=== PATIENT | female | born 1960 | race Caucasian/White ===

== ENCOUNTER 2022-10-04 00:09 | Inpatient (IN) | payer MEDICARE, BC, SELFPAY ==
--- OUTSIDE RECORDS SUMMARY | 2022-10-04 00:13 | XMS_ITS | Continuity of Care Document ---
Author Name Unknown Organization [facility] Address [address] [facility], 3r d Floor, [address] [place] [id number]- Care Team Providers Care Urology Teacher Name Role Phone Nadira Galindo MD Primary Care Physician Encounter [facility] Date(s): 11/19/21 - 12/19/21 [facility] [address], 3rd Floor, [address] [place] [id number] Allergies, Adverse Reactions, Alerts Substance Reaction Severity Status amoxicillin Active Dust Mold Mold Mold Mold Active Mold Active Immunizations Given and Recorded Vaccine Date Status Refusal Reason influenza virus vaccine, inactivated 12/24/20 Peewee rded influenza virus vaccine, inactivated 10/13/19 Peewee rded influenza virus vaccine, inactivated 11/26/17 Peewee rded influenza virus vaccine, inactivated 11/10/17 Peewee rded influenza virus vaccine, inactivated 10/24/16 Peewee rded influenza virus vaccine, inactivated 11/09/14 Peewee rded influenza virus vaccine, inactivated 11/09/13 Peewee rded SARS-CoV-2 (COVID-19) mRNA BNT-162b2 vac 11/29/20 Recorded SARS-CoV-2 (COVID-19) mRNA BNT-162b2 vac 05/14/20 Recorded SARS-CoV-2 (COVID-19) mRNA BNT-162b2 vac 04/23/20 Recorded Not Given Vaccine Date Status Refusal Reason pneumococcal 23-valent vaccine 1 02/29/20 Not Give n Patient Refuses 1Result Comment: pt will followup with pcp Medications [place] Thyroid 180 mg oral tablet 1 tablet = 180 mg, By Mouth, Daily, # 30 tablet, 0 Refills, Maintenance, 11/08/21 8:11:00 EDT, Tablet, [id number], Partial fill upon patient request if the prescription is for a schedule II opioid drug., 170, cm, 11/07/21 15:18:00 EDT, Height,... Start Date: 11/08/21 Status: Ordered aspirin 81 mg oral delayed release tablet 81 mg, 1, tablet, By Mouth, Daily, Refills 0, Maintenance, 10/05/21 16:30:00 EDT, Partial fill uponpatient request if the prescription is for a schedule II opioid drug. Start Date: 10/05/21 Status: Ordered divalproex sodium 500 mg oral enteric coated tablet = 1,500 mg, By Mouth, Daily at bedtime, # 90 tablet, 0 Refills, Maintenance, 11/08/21 8:12:00 EDT, Tablet, [facility]/pharmacy #[id number], Partial fill upon patient request if the prescription is for a schedule II opioid drug., 170, cm, 11/07/21 15:18:00 EDT, Hei... Start Date: 11/08/21 Status: Ordered Furosemide = 40 mg, Daily, 0 Refills, Maintenance, 10/05/21 16:29:00 EDT, Partial fill upon patient request ifthe prescription is for a schedule II opioid drug. Start Date: 10/05/21 Status: Ordered furosemide 20 mg oral tablet 40 mg, 2, tablet, By Mouth, Daily, # 60 tablet, Refills 0, Tot. Refills 0, Maintenance, 11/08/21 8:11:00 EDT, Route to Pharmacy Electronically, [facility]/pharmacy #[id number], Partial fill upon patient request if the prescription is for a schedule II opioid drug.... Start Date: 11/08/21 Status: Ordered glipiZIDE 2.5 mg oral tablet, extended release 1 tablet = 2.5 mg, By Mouth, Daily, # 30 tablet, 0 Refills, Maintenance, 11/08/21 8:11:00 EDT, ER Tablet, [facility]/pharmacy #[id number], Partial fill upon patient request if the prescription is for a schedule II opioid drug., 170, cm, 11/07/21 15:18:00 EDT, Heig... Start Date: 11/08/21 Status: Ordered metoprolol 25 mg oral tablet, extended release 25 mg, 1, tablet, By Mouth, Daily, # 30 tablet, Refills 0, Tot. Refills 0, Maintenance, 11/08/21 8:11:00 EDT, Route to Pharmacy Electronically, [id number], Partial fill upon patient request if the prescription is for a schedule II opioid drug.... Start Date: 11/08/21 Status: Ordered QUEtiapine 300 mg oral tablet 1 tablet = 300 mg, By Mouth, Daily at bedtime, # 30 tablet, 0 Refills, Maintenance, 11/08/21 8:12:00 EDT, Tablet, [id number], Partial fill upon patient request if the prescription is for a schedule II opioid drug., 170, cm, 11/07/21 15:18:00 E... Start Date: 11/08/21 Status: Ordered traZODone 50 mg oral tablet 50 mg, 1, tablet, By Mouth, Daily at bedtime, PRN, # 30 tablet, Refills 0, Tot. Refills 0, Maintenance, Insomnia, 11/08/21 8:18:00 EDT, Route to Pharmacy Electronically, [id number], Partial fill upon patient request if the prescription is for... Start Date: 11/08/21 Status: Ordered Problem List Condition Confirmation Course Effective Dates Status Health [facility] Informant Obese class I Confirmed Active Social History Social History Type Response Smoking Status Never (less than 100 in lifetime) entered on: 06/20/19 Sex Patient Care team information Care Team Personnel Name: Marcelino Smith RN Position: [facility] RN Member Role: Primary Care Nurse Name: Heather Ballesteros RN Position: [facility] RN Member Role: Primary Care Nurse Name: Mariza Cardona RN Position: [facility] RN Member Role: Primary Care Nurse Name: Denise Tucker RN Position: [facility] RN Member Role: Primary Care Nurse Name: Piero Burks Position: S RN Member Role: Primary Care Nurse Name: nIgris Nagy Position: S RN Member Role: Primary Care Nurse Name: Dandre Navarrete Position: S RN Member Role: Primary Care Nurse Name: Agatha Pena Position: S RN Member Role: Primary Care Nurse Name: Nadira Galindo MD Position: S Outreach Member Role: PCP Address: Address: [address] [place] [address] Name: Sandoval Coronado RN Position: [facility] RN Member Role: Primary Care Nurse Name: Seema Omer RN Position: S RN Member Role: Primary Care Nurse Name: Gabe Boucher RN Position: S RN Member Role: Primary Care Nurse Care Team Related Persons Name: SAQIB HERNANDEZ Address: home [address] [place] Name: SAQIB HERNANDEZ Address: [address] [place] Name: CAROL MORALEZ Address: home [address] [place] [address] Name: EUFEMIA CASSIDY Address: bagdad UNKNOWN
--- OUTSIDE RECORDS SUMMARY | 2022-10-04 00:13 | XMS_ITS | Continuity of Care Document ---
Author Name Unknown Organization [facility] Address [address] [facility], 3r d Floor, [address] [place] [id number]- Care Team Providers Care Trial Management Associate Name Role Phone Nadira Galindo MD Primary Care Physician En[place] [facility] [place](s[place] 01/13/22 - 02/12/22 [facility] [address], 3[address] Floor, [address] [place] [id number] Attending Physician: AdmMary Kate diaz Admitting Physician: AdmtrMary Kate Referring Physician: Admtr, Ar8 Allergies, Adverse Reactions, Alerts Substance Reaction Severity [...] Comment: pt will followup with pcp Medications [place] Thyroid 180 mg oral tablet 1 tablet = 180 mg, By Mouth, Daily, # 30 tablet, 0 Refills, Maintenance, 11/08/21 8:11:00 EDT, Tablet, [id number], Partial fill upon [...] 0 Refills, Maintenance, 11/08/21 8:12:00 EDT, Tablet, [facility]/pharmacy #[id number], Partial fill upon patient request [...] 11/08/21 8:11:00 EDT, Route to Pharmacy Electronically, [facility]/pharmacy #[id number], Partial fill upon patient request if the prescription is for a schedule II opioid drug.... Start Date: 11/08/21 Status: Ordered glipiZIDE 2.5 mg oral tablet, extended release 1 tablet = 2.5 mg, By Mouth, Daily, # 30 tablet, 0 Refills, Maintenance, 11/08/21 8:11:00 EDT, ER Tablet, [id number], Partial fill upon patient request if the prescription is for a schedule II opioid drug., 170, cm, 11/07/21 15:18:00 EDT, Heig... Start Date: 11/08/21 Status: Ordered metoprolol 25 mg oral tablet, extended release 25 mg, 1, tablet, By Mouth, Daily, # 30 tablet, Refills 0, Tot. Refills 0, Maintenance, 11/08/21 8:11:00 EDT, Route to Pharmacy Electronically, [facility]/pharmacy #[id number], Partial fill upon patient request [...] 11/08/21 8:18:00 EDT, Route to Pharmacy Electronically, [facility]/pharmacy #[id number], Partial fill upon patient request [...] Team Personnel Name: Marcelino Smith RN [facility] RN Member Role: Primary Care Nurse Name: Heather Ballesteros RN Position: [facility] RN Member Role: Primary Care Nurse Name: Mariza Cardona RN Position: [facility] RN Member Role: Primary Care Nurse Name: Denise Tucker RN Position: S RN Member Role: Primary Care Nurse Name: Piero Burks Position: S RN Member Role: Primary Care Nurse Name: Ingris Nagy Position: S RN Member Role: Primary Care Nurse Name: Dandre Navarrete Position: S RN Member Role: Primary Care Nurse Name: Agatha Pena Position: S RN Member Role: Primary Care Nurse Name: Nadira Galindo MD Position: S Outreach Member Role: PCP Address: Address: [address] [place] [address] Name: Sandoval Coronado RN Position: S RN Member Role: Primary Care Nurse Name: Seema Omer RN Position: S RN Member Role: Primary Care Nurse Name: Gabe Boucher RN Position: S RN Member Role: Primary Care Nurse Care Team Related Persons Name: SAQIB HERNANDEZ Address: [address] [place] [address] Name: SAQIB HERNANDEZ Address: [address] [place] [address] Name: CAROL MORALEZ Address: home [address] [place] [address] Name: EUFEMIA CASSIDY Address: home UNKNOWN
--- OUTSIDE RECORDS SUMMARY | 2022-10-04 00:13 | XMS_ITS | Continuity of Care Document ---
Author Name Unknown Organization [facility] Address [address] [facility], 3r d Floor, [address] [place] [id number]- Care Team Providers Care Shell Plater Name Role Phone Nadira Galindo MD Primary Care Physician Encounter [facility] Date(s): 02/20/22 - 04/05/22 [facility] [address], 3[address], [address] [place] [id number] Attending Physician: Trip Madison MD Admitting Physician: Trip Madison MD Referring Physician: Roe Eng MD Allergies, Adverse Reactions, Alerts Substance Reaction Severity [...] Comment: pt will followup with pcp Medications [place] Thyroid 180 mg oral tablet 1 tablet [...] 0 Refills, Maintenance, 11/08/21 8:12:00 EDT, Tablet, [facility]/pharmacy #[id number], Partial fill upon patient request [...] 11/08/21 8:11:00 EDT, Route to Pharmacy Electronically, [facility]/pharmacy #[id number], Partial fill upon patient request [...] 11/08/21 8:11:00 EDT, Route to Pharmacy Electronically, [facility]/pharmacy #[id number], Partial fill upon patient request [...] 11/08/21 8:18:00 EDT, Route to Pharmacy Electronically, [facility]/pharmacy #[id number], Partial fill upon patient request [...] Team Personnel Name: Marcelino Smith RN Position: [facility] RN Member Role: Primary Care Nurse Name: Denise Tucker RN Position: [facility] RN Member Role: Primary Care Nurse Name: Piero Burks RN Position: [facility] RN Member Role: Primary Care Nurse Name: Ingris Nagy RN Position: S RN Member Role: Primary Care Nurse Name: Dandre Navarrete RN Position: S RN Member Role: Primary Care Nurse Name: Agatha Pena RN Position: [facility] RN Member Role: Primary Care Nurse Name: Nadira Galindo MD Position: S Outreach Member Role: PCP Address: Address: [address] [place] [address] Name: Sandoval Coronado RN Position: S RN Member Role: Primary Care Nurse Care Team Related Persons Name: SAQIB HERNANDEZ Address: home [address] [place] Name: SAQIB HERNANDEZ Address: home [address] [place] Name: CAROL MORALEZ Address: home [address] [place], [place] Name: EUFEMIA CASSIDY Address: home [place], [place]
--- OUTSIDE RECORDS SUMMARY | 2022-10-04 00:13 | XMS_ITS | Continuity of Care Document ---
Author Name Unknown Organization [facility] Address [address] [address], [address]r d Floor, [address] [place] [id number]- Care Team Providers Care Petroleum Refining Equipment Operator Name Role Phone Nadira Galindo MD Primary Care Physician Encounter [facility] Date(s): 02/20/22 - 03/22/22 [facility] [address], 3[address], [address] [place] [id number] Allergies, Adverse Reactions, Alerts Substance Reaction Severity [...] Comment: pt will followup with pcp Medications [place] Thyroid 180 mg oral tablet 1 tablet = 180 mg, By Mouth, Daily, # 30 tablet, 0 Refills, Maintenance, 11/08/21 8:11:00 EDT, Tablet, [id number], Partial fill upon patient request if the [...] 0 Refills, Maintenance, 11/08/21 8:12:00 EDT, Tablet, [facility]/pharmacy #[id number], Partial fill upon patient request if [...] 11/08/21 8:11:00 EDT, Route to Pharmacy Electronically, [facility]/pharmacy #[id number], Partial fill upon patient request if the prescription is for a schedule II opioid drug.... Start Date: 11/08/21 Status: Ordered glipiZIDE 2.5 mg oral tablet, extended release 1 tablet = 2.5 mg, By Mouth, Daily, # 30 tablet, 0 Refills, Maintenance, 11/08/21 8:11:00 EDT, ER Tablet, [facility]/pharmacy #[id number], Partial fill upon patient request if [...] Team Personnel Name: Marcelino Smith RN Position: [facility] RN Member Role: Primary Care Nurse Name: Mariza Cardona RN Position: [facility] RN Member Role: Primary Care Nurse Name: Denise Tucker RN Position: [facility] RN Member Role: Primary Care Nurse Name: Piero Burks RN Position: [facility] RN Member Role: Primary Care Nurse Name: Ingris Nagy RN Position: S RN Member Role: Primary Care Nurse Name: Dandre Navarrete Position: [facility] RN Member Role: Primary Care Nurse Name: Agatha Pena RN Position: [facility] RN Member Role: Primary Care Nurse Name: Nadira Galindo MD Position: [facility] Outreach Member Role: PCP Address: Address: [address] [place] [address] Name: Sandoval Coronado RN Position: S RN Member Role: Primary Care Nurse Name: Seema Omer RN Position: [facility] RN Member Role: Primary Care Nurse Care Team Related Persons Name: SAQIB HERNANDEZ Address: home [address] [place] Name: SAQIB HERNANDEZ Address: home [address] [place] Name: CAROL MORALEZ Address: home [address] [place], [place] Name: EUFEMIA CASSIDY Address: home [place], [place]
--- OUTSIDE RECORDS SUMMARY | 2022-10-04 00:13 | XMS_ITS | Continuity of Care Document ---
Author Name Unknown Organization [facility] Address [address] [facility] [place] [address]- Care Team Providers Care Agricultural Science Professor Name Role Phone Nadira Galindo MD Primary Care Physician Encounter 02/02/20 - 02/09/20 [facility] [address], [address] [place], [place] [address] Attending Physician: Nadira Galindo MD Admitting Physician: Nadira Galindo MD Referring Physician: Fifi Reyes MD Allergies, Adverse Reactions, Alerts Substance Reaction Severity Status amoxicillin Active Dust Mold Mold Mold Mold Active Mold Active Medications amLODIPine 2.5 mg oral tablet 2.5 mg, 1, tablet, By Mouth, Daily, Refills 0, Maintenance, 06/26/17 10:33:25 EDT Start Date: 06/26/17 Status: Ordered aspirin 81 mg oral tablet 1 tablet = 81 mg, By Mouth, Daily, # 30 tablet, 0 Refills, Maintenance, 06/02/18 16:00:41 EDT, Tablet Start Date: 06/02/18 Status: Ordered Clonazepam = 3 mg, By Mouth, Daily at bedtime, 0 Refills, Maintenance, 06/20/19 5:40:00 EDT Start Date: 06/20/19 Status: Ordered CPAP Machine See Instructions, Maintenance, 06/02/18 16:02:11 EDT, Compound Start Date: 06/02/18 Status: Ordered Crestor 10 mg oral tablet 1 tablet = 10 mg, By Mouth, Daily at bedtime, 0 Refills, Maintenance, 06/26/17 10:33:08 EDT Start Date: 06/26/17 Status: Ordered Depakote = 1,500 mg, By Mouth, 3 times a day, 0 Refills, Maintenance, 06/20/19 5:41:00 EDT Start Date: 06/20/19 Status: Ordered Januvia 100 mg oral tablet 1 tablet = 100 mg, By Mouth, Daily, # 30 tablet, 0 Refills, Maintenance, 06/02/18 15:59:25 EDT, Tablet Start Date: 06/02/18 Status: Ordered KlonoPIN 1 mg oral tablet 3 tablet = 3 mg, By Mouth, Daily at bedtime, # 9 tablet, 0 Refills, Maintenance, 06/20/19 5:46:00 EDT, [facility]/pharmacy #[id number], 170, cm, 06/20/19 5:39:00 EDT, Height, 110, kg, 06/20/19 5:39:00 EDT, Dry Weight Start Date: 06/20/19 Status: Ordered Lasix 40 mg oral tablet 40 mg, 1, tablet, By Mouth, Daily, Refills 0, Maintenance, 06/26/17 10:33:35 EDT Start Date: 06/26/17 Status: Ordered metFORMIN 500 mg oral tablet 1 tablet = 500 mg, By Mouth, Daily, with meals, # 30 tablet, 0 Refills, Maintenance, 06/02/18 15:59:45 EDT, Tablet Start Date: 06/02/18 Status: Ordered metoprolol 50 mg oral tablet 50 mg, 1, tablet, By Mouth, 2 times a day, Refills 0, Maintenance, 06/26/17 10:34:28 EDT Start Date: 06/26/17 Status: Ordered Seroquel By Mouth, Refills 0, Maintenance, 06/02/18 16:00:07 EDT Start Date: 06/02/18 Status: Ordered thyroid desiccated 30 mg oral tablet 1 tablet = 30 mg, By Mouth, Every Thursday, and Thursday, # 13 tablet, 0 Refills, Maintenance, Tablet, 1 tablet By Mouth Every Thursday, and Thursday,x30 days Start Date: 01/26/13 Stop Date: 02/25/13 Status: Ordered thyroid desiccated 30 mg oral tablet 1 tablet = 30 mg, By Mouth, Every Thursday, # 5 tablet, 0 Refills, Maintenance, Tablet, 1 tablet By Mouth Every Thursday,x30 days Start Date: 01/26/13 Stop Date: 02/25/13 Status: Ordered thyroid desiccated 60 mg oral tablet 3 tablets, By Mouth, Daily, # 30 tablet, Refills 0, Maintenance, 07/27/18 11:39:23 EDT Start Date: 07/27/18 Status: Ordered thyroid desiccated 60 mg oral tablet 1 tablet = 60 mg, By Mouth, Every Thursday, # 5 tablet, 0 Refills, Maintenance, Tablet, 1 tablet By Mouth Every Thursday,x30 days Start Date: 01/26/13 Stop Date: 02/25/13 Status: Ordered thyroid desiccated 60 mg oral tablet 1 tablet = 60 mg, By Mouth, Every Thursday, # 1 tablet, 0 Refills, Maintenance, Tablet, 1 tablet By Mouth Every Thursday,x7 days Start Date: 01/26/13 Stop Date: 02/02/13 Status: Ordered Social History Social History Type Response Smoking Status Never (less than 100 in lifetime) entered on: 06/20/19 Sex
--- OUTSIDE RECORDS SUMMARY | 2022-10-04 00:13 | XMS_ITS | Continuity of Care Document ---
Author Name Unknown Organization [facility] Address [address] [facility] [place] [address] [place] [address]- Care Team Providers Care Circular Knife Cutter Machine Name Role Phone Nadira Galindo MD Primary Care Physician [phone] Encounter 03/19/21 - 05/11/21 [facility] [address], [address] [place] [address]- Attending Physician: Fifi Reyes MD Admitting Physician: Fifi Reyes MD Referring Physician: Fifi Reyes MD Allergies, [...] Comment: pt will followup with pcp Medications acetaminophen 325 mg oral tablet 650 mg, By Mouth, Every 4 hours, PRN, Temperature Greater than 100.5, Refills 0, Maintenance, Pain , Mild, 04/01/21 15:34:00 EST, Partial fill upon patient request if the prescription is for a schedule II opioid drug. Start Date: 04/01/21 Status: Ordered amLODIPine 5 mg oral tablet 5 mg, 1, tablet, By Mouth, Daily, # 30 tablet, Refills 0, Tot. Refills 0, Maintenance, 05/09/21 11:36:00 EDT, Route to Pharmacy Electronically, [facility]/pharmacy #[id number], Partial fill upon patient request if the prescription is for a schedule II opioid drug.... Start Date: 05/09/21 Status: Ordered clonazePAM 1 mg oral tablet 1 tablet = 1 mg, By Mouth, 3 times a day, PRN Anxiety, 0 Refills, Maintenance, 05/09/21 11:42:00 EDT, Tablet, Partial fill upon patient request if the prescription is for a schedule II opioid drug. Start Date: 05/09/21 Status: Ordered divalproex sodium 500 mg oral tablet, extended release 3 tablet = 1,500 mg, By Mouth, Daily at bedtime, # 90 tablet, 0 Refills, Maintenance, 05/09/21 11:38:00 EDT, ER Tablet, [facility]/pharmacy #[id number], Partial fill upon patient request if the prescription is for a schedule II opioid drug., 170, cm, 05/09/21 9:42... Start Date: 05/09/21 Status: Ordered glipiZIDE 2.5 mg oral tablet, extended release 1 tablet = 2.5 mg, By Mouth, Daily, # 30 tablet, 0 Refills, Maintenance, 05/09/21 11:38:00 EDT, ER Tablet, [facility]/pharmacy #[id number], Partial fill upon patient request if the prescription is for a schedule II opioid drug., 170, cm, 05/09/21 9:42:00 EDT, Heig... Start Date: 05/09/21 Status: Ordered metoprolol 25 mg oral tablet, extended release 25 mg, 1, tablet, By Mouth, Daily, # 30 tablet, Refills 0, Tot. Refills 0, Maintenance, 05/09/21 11:38:00 EDT, Route to Pharmacy Electronically, [facility]/pharmacy #[id number], Partial fill upon patient request if the prescription is for a schedule II opioid drug... Start Date: 05/09/21 Status: Ordered perphenazine 8 mg oral tablet 12 mg, 1.5, tablet, By Mouth, Daily at bedtime, # 45 tablet, Refills 0, Tot. Refills 0, Maintenance, 05/09/21 11:41:00 EDT, Route to Pharmacy Electronically, [facility]/pharmacy #[id number], Partial fill upon patient request if the prescription is for a schedule I... Start Date: 05/09/21 Status: Ordered QUEtiapine 200 mg oral tablet, extended release 600 mg, 3, tablet, By Mouth, Daily at bedtime, # 90 tablet, Refills 0, Tot. Refills 0, Maintenance,05/09/21 11:38:00 EDT, Route to Pharmacy Electronically, [facility]/pharmacy #[id number], Partial fill upon patient request if the prescription is for a schedule II... Start Date: 05/09/21 Status: Ordered thyroid desiccated 60 mg oral tablet 180 mg, 3, tablet, By Mouth, Daily, # 90 tablet, Refills 0, Tot. Refills 0, Maintenance, 05/09/21 11:39:00 EDT, Route to Pharmacy Electronically, [facility]/pharmacy #[id number], Partial fill upon patient requestif the prescription is for a schedule II opioid tarik... Start Date: 05/09/21 Status: Ordered Problem List Condition Effective Dates Status Health Status Inform ant Obese class II(Confirmed) Active Social History Social History Type Response Smoking Status Never (less than 100 in lifetime) entered on: 06/20/19 Sex
--- OUTSIDE RECORDS SUMMARY | 2022-10-04 00:13 | XMS_ITS | Continuity of Care Document ---
Author Name Unknown Organization [facility] [place] [facility] [place] [address] [place] [address]- Care Team Providers Care Behavioral Health Specialist Name Role Phone Nadira Galindo MD Primary Care Physician Encounter 08/06/21 - 08/13/21 [facility] [address], [address] [place] [address]- Attending Physician: Fifi Reyes MD Admitting Physician: [...] 05/09/21 11:36:00 EDT, Route to Pharmacy Electronically, [facility]/pharmacy #[id number], Partial fill upon patient request if [...] Refills, Maintenance, 05/09/21 11:38:00 EDT, ER Tablet, [facility]/pharmacy #[id number], Partial fill upon patient request if the prescription is for a schedule II opioid drug., 170, cm, 05/09/21 9:42... Start Date: 05/09/21 Status: Ordered gabapentin 100 mg oral capsule 100 mg, 1, capsule, By Mouth, Daily at bedtime, # 30 capsule, Refills 0, Tot. Refills 0, Maintenance, 06/19/21 11:16:00 EDT, Route to Pharmacy Electronically, [facility]/pharmacy #[id number], Partial fill upon patient request if the prescription is for a schedule... Start Date: 06/19/21 Status: Ordered glipiZIDE 2.5 mg oral tablet, extended release 1 tablet = 2.5 mg, By Mouth, Daily, # 30 tablet, 0 Refills, Maintenance, 05/09/21 11:38:00 EDT, ER Tablet, [facility]/pharmacy #[id number], Partial fill upon patient request if the prescription is for a schedule II opioid drug., 170, cm, 05/09/21 9:42:00 EDT, [place]... Start Date: 05/09/21 Status: Ordered Invega Hafyera Intramuscular, Every 6 months, 0 Refills, Maintenance, 08/03/21 15:37:00 EDT, Partial fill upon patient request if the prescription is for a schedule II opioid drug. Start Date: 08/03/21 Status: Ordered metoprolol 25 mg oral tablet, extended release 25 mg, 1, tablet, By Mouth, Daily, # 30 tablet, Refills 0, Tot. Refills 0, Maintenance, 05/09/21 11:38:00 EDT, Route to Pharmacy Electronically, [facility]/pharmacy #[id number], Partial fill upon patient request if the prescription is for a schedule II opioid drug... Start Date: 05/09/21 Status: Ordered QUEtiapine 300 mg oral tablet, extended release 1 tablet = 300 mg, By Mouth, Daily at bedtime, # 30 tablet, 0 Refills, Maintenance, 06/19/21 11:16:00 EDT, ER Tablet, [id number], Partial fill upon patient request if the prescription is for a schedule II opioid drug., 1 tablet By Mouth Daily... Start Date: 06/19/21 Status: Ordered thyroid desiccated 60 mg oral tablet 180 mg, 3, tablet, By Mouth, Daily, # 90 tablet, Refills 0, Tot. Refills 0, Maintenance, 05/09/21 11:39:00 EDT, Route to Pharmacy Electronically, [facility]/pharmacy #[id number], Partial fill upon patient requestif the prescription is for a schedule II opioid tarik... Start Date: 05/09/21 Status: Ordered Problem List Condition Effective Dates Status Health Status Inform ant Obese class II(Confirmed) Active Social History Social History Type Response Smoking Status Never (less than 100 in lifetime) entered on: 06/20/19 Sex
--- OUTSIDE RECORDS SUMMARY | 2022-10-04 00:13 | XMS_ITS | Continuity of Care Document ---
Author Name Unknown Organization [facility] Address [address], [address], [address] [place] [id number]- Care Team Providers Care Emergency Vehicle Dispatcher Name Role Phone Nadira Galindo MD Primary Care Physician [place] [facility] [place] - 04/05/22 [facility] [address], [address], [address] [place] [id number] Attending Physician: AdmMary Kate diaz Admitting Physician: [...] Comment: pt will followup with pcp Medications [place] Thyroid 180 mg oral tablet 1 tablet [...] 0 Refills, Maintenance, 11/08/21 8:12:00 EDT, Tablet, [facility]/pharmacy #[id number], Partial fill upon patient request [...] 11/08/21 8:11:00 EDT, Route to Pharmacy Electronically, [facility]/pharmacy #[id number], Partial fill upon patient request [...] 11/08/21 8:11:00 EDT, Route to Pharmacy Electronically, [facility]/pharmacy #[id number], Partial fill upon patient request [...] 11/08/21 8:18:00 EDT, Route to Pharmacy Electronically, [facility]/pharmacy #[id number], Partial fill upon patient request [...] Team Personnel Name: Marcelino Smith RN Position: [facility] RN Member Role: Primary Care Nurse Name: Denise Tucker RN Position: [facility] RN Member Role: Primary Care Nurse Name: Piero Burks RN Position: [facility] RN Member Role: Primary Care Nurse Name: Ingris Nagy RN Position: S RN Member Role: Primary Care Nurse Name: Dandre Navarrete RN Position: S RN Member Role: Primary Care Nurse Name: Agatha Pena RN Position: [facility] RN Member Role: Primary Care Nurse Name: Nadira Galindo MD Position: S Outreach Member Role: PCP Address: Address: [address] [place] [address] Name: Sandoval Coronado RN Position: S RN Member Role: Primary Care Nurse Care Team Related Persons Name: SAQIB HERNANDEZ Address: home [address] [place] Name: SAQIB HERNANDEZ Address: home [address] [place] Name: CAROL MORALEZ Address: home [address], [place] Name: EUFEMIA CASSIDY Address: home [place], [place]
--- OUTSIDE RECORDS SUMMARY | 2022-10-04 00:13 | XMS_ITS | Continuity of Care Document ---
Author Name Unknown Organization [facility] ter Address [address] [place] [id number]- Care Team Providers Care Compensation And Benefits Advisor Name Role Phone Nadira Galindo MD Primary Care Physician Encounter [facility] Date(s): 02/10/19 - 02/10/[address] [address]- [facility] Attending Physician: Luke GUPTA MD, Yannick Allergies, Adverse Reactions, Alerts Substance Reaction Severity [...] Tablet Start Date: 06/02/18 Status: Ordered Clonazepam By Mouth, 3 times a day, 0 Refills, Maintenance, 06/26/17 10:34:35 EDT Start Date: 06/26/17 Status: Ordered CPAP Machine See Instructions, Maintenance, 06/02/18 16:02:11 EDT, Compound Start Date: 06/02/18 Status: Ordered Crestor 10 mg oral tablet 1 tablet = 10 mg, By Mouth, Daily at bedtime, 0 Refills, Maintenance, 06/26/17 10:33:08 EDT Start Date: 06/26/17 Status: Ordered Depakote By Mouth, 3 times a day, 0 Refills, Maintenance, 06/02/18 16:00:29 EDT Start Date: 06/02/18 Status: Ordered divalproex sodium 500 mg oral enteric coated tablet See Instructions, 2 tablets =1000mg By Mouth 2 times a day, # 120 tablet, 0 Refills, Maintenance, Tablet, 2 tablets =1000mg By Mouth 2 times a day Start Date: 01/26/13 Status: Ordered Januvia 100 mg oral tablet 1 tablet = 100 mg, By Mouth, Daily, # 30 tablet, 0 Refills, Maintenance, 06/02/18 15:59:25 EDT, Tablet Start Date: 06/02/18 Status: Ordered Lasix 40 mg oral tablet [...]
--- OUTSIDE RECORDS SUMMARY | 2022-10-04 00:13 | XMS_ITS | Continuity of Care Document ---
Author Name Unknown Organization [facility] ter Address [address] [place] [address]- Care Team Providers Care Director Case Management Name Role Phone Nadira Galindo MD Primary Care Physician Encounter [facility] [place] Date(s): 02/28/20 - 02/29/[address] [address] Discharge Disposition: A-D/C Home Attending Physician: Efrem Rico MD Admitting Physician: Tashia Slaughter MD Referring Physician: Not on Staff, Referring MD Allergies, Adverse Reactions, Alerts Substance Reaction Severity Status amoxicillin Active Dust Mold Mold Mold Mold Active Mold Active Immunizations Not Given Vaccine Date Status Refusal Reason pneumococcal 23-valent vaccine 1 02/29/20 Not Give n Patient Refuses 1Result Comment: pt will followup with pcp Medications amLODIPine 2.5 mg oral tablet 2.5 mg, 1, tablet, By Mouth, Daily, Refills 0, Maintenance, 06/26/17 10:33:25 EDT Start Date: 06/26/17 Status: Ordered [place] Thyroid 180 mg oral tablet 1 tablet = 180 mg, By Mouth, Daily, # 30 tablet, 0 Refills, Maintenance, 02/29/20 11:46:00 EST, Tablet, Partial fill upon patient request if the prescription is for a schedule II opioid drug. Start Date: 02/29/20 Status: Ordered aspirin 81 mg oral tablet 1 tablet = 81 mg, By Mouth, Daily, # 30 tablet, 0 Refills, Maintenance, 06/02/18 16:00:41 EDT, Tablet Start Date: 06/02/18 Status: Ordered CPAP Machine See Instructions, Maintenance, 06/02/18 16:02:11 EDT, Compound Start Date: 06/02/18 Status: Ordered Crestor 10 mg oral tablet 1 tablet = 10 mg, By Mouth, Daily at bedtime, 0 Refills, Maintenance, 06/26/17 10:33:08 EDT Start Date: 06/26/17 Status: Ordered Depakote = 1,500 mg, By Mouth, Daily at bedtime, 0 Refills, Maintenance, 06/20/19 5:41:00 EDT Start Date: 06/20/19 Status: Ordered KlonoPIN 1 mg oral tablet 3 tablet = 3 mg, By Mouth, Daily at bedtime, # 9 tablet, 0 Refills, Maintenance, 06/20/19 5:46:00 EDT, [facility]/pharmacy #[id number], 170, cm, 06/20/19 5:39:00 EDT, Height, [...] tablet, By Mouth, 2 times a day, # 60 tablet, Refills 0, Tot. Refills 0, Maintenance, 02/29/20 11:47:00 EST, Route to Pharmacy Electronically, [facility], Partial fill upon patient request if the prescription is for a schedule... Start Date: 02/29/20 Status: Ordered Seroquel 600 mg, By Mouth, Daily at bedtime, Refills 0, Maintenance, 06/02/18 16:00:07 EDT Start Date: 06/02/18 Status: Ordered Results Radiology Reports * Exam Date Time Procedure Performing Provider Status 02/28/20 9:19 AM Chest 2 Views Frontal and Lat Leora Hanley; Andrew (Verified) Notes: (Chest 2 Views Frontal and Lat) Reason For Exam: Pleuritic Pain RESULT: Chest 2 Views Frontal and Lat Examination: Chest performed on 02/28/2020. History: Issues filling correct medication. Intermittent palpitations. Findings: Frontal and lateral views of the chest are compared to a prior study dated 11/30/2017. There is stable enlargement of the cardiac silhouette. Minimal bibasilar atelectasis is noted. The lungs are otherwise clear. The osseous and soft tissue structures are unremarkable. Impression: There is no acute cardiopulmonary disease. WSN: [id number] Ordering Physician: Travis Templeton Dictated By: Aura Higginbotham MD Dictated Date/Time: 02/28/20 9:27 am Reviewed By: Aura Higginbotham MD Signed By: Aura Higginbotham MD Signed Date/Time: 02/28/20 9:27 am Transcribed By: LIV Transcribed Date/Time: 02/28/20 9:26 am Vital Signs Most recent to oldest [Reference Range]: 1 2 3 Height 170 cm (02/29/20 11:52 AM) 170 cm (02/29/20 8:03 AM) 170 cm (02/29/20 5:01 AM) Weight 113.6 kg (02/28/20 1:28 PM) Oxygen Saturation [94-100 %] 91 % *L* (02/29/20 11:52 AM) 92 % *L* (02/29/20 8:03 AM) 87 % *L* (02/29/20 5:01 AM) Pulse Rate [55-90 bpm] 87 bpm (02/29/20 11:52 AM) 79 bpm (02/29/20 8:03 AM) 85 bpm (02/29/20 5:01 AM) Body Mass Index [18.5-24.99] 39.31 *>HHI* (02/28/20 1:28 PM) Blood Pressure [90-138/55-84 mm Hg] 124/65mm Hg (02/29/20 11:52 AM) 95/60mm Hg (02/29/20 8:03 AM) 132/67mm Hg (02/29/20 5:01 AM) Respiratory Rate [16-30 br/min] 18 br/min (02/29/20 3:25 PM) 18 br/min (02/29/20 11:52 AM) 18 br/min (02/29/20 8:03 AM) Temperature [96.8-100.4 DegF] 97.9 DegF (02/29/20 11:52 AM) 98.0 DegF (02/29/20 8:03 AM) 98.2 DegF (02/29/20 5:01 AM) Mode of Delivery (Oxygen) Room air (02/29/20 11:52 AM) Room air (02/29/20 8:03 AM) Room air (02/29/20 5:01 AM) Blood pressure sites Arm, left (02/29/20 11:52 AM) Arm, left (02/29/20 8:03 AM) Arm, left (02/29/20 5:01 AM) Temperature Route Oral (02/29/20 11:52 AM) Oral (02/29/20 8:03 AM) Oral (02/29/20 5:01 AM) Dry Weight 113.6 kg (02/28/20 1:28 PM) Social History Social History Type Response Smoking Status Never (less than 100 in lifetime) entered on: 06/20/19 Sex
--- OUTSIDE RECORDS SUMMARY | 2022-10-04 00:13 | XMS_ITS | Continuity of Care Document ---
Author Name Unknown Organization [facility] Address [address] [place] [id number]- Care Team Providers Care Business Risk Analyst Name Role Phone Cristiano Napier MD Primary Care Physician Encounter [facility] Date(s): 04/12/22 - 04/14/[address] [address]- Encounter Diagnosis Paranoid(Final) - 04/12/22 Altered mood associated with becca(Final) - 04/12/22 Nonadherence to medication(Final) - 04/12/22 Discharge Disposition: Transfer to Psych Facility Attending Physician: Trip Serrano MD Admitting Physician: Trip Serrano MD Referring Physician: Not on Staff, Referring [...] Comment: pt will followup with pcp Medications Barb Thyroid 180 mg oral tablet 1 tablet = 180 mg, By Mouth, Daily, # 30 tablet, 0 Refills, Maintenance, 11/08/21 8:11:00 EDT, Tablet, [facility]/pharmacy #[id number], Partial fill upon [...] 0 Refills, Maintenance, 11/08/21 8:12:00 EDT, Tablet, [facility]/pharmacy #[id number], Partial fill upon [...] 11/08/21 8:11:00 EDT, Route to Pharmacy Electronically, [facility]/pharmacy #[id number], Partial fill upon patient request if the prescription is for a schedule II opioid drug.... Start Date: 11/08/21 Status: Ordered glipiZIDE 2.5 mg oral tablet, extended release 1 tablet = 2.5 mg, By Mouth, Daily, # 30 tablet, 0 Refills, Maintenance, 11/08/21 8:11:00 EDT, ER Tablet, [facility]/pharmacy #[id number], Partial fill upon [...] atus Informant Obese class I Confirmed Active Vital Signs Most recent to oldest [Reference Range]: 1 2 3 Oxygen Saturation [94-100 %] 95 % (04/14/22 4:24 PM) 96 % (04/14/22 4:45 AM) 97 % (04/13/22 7:39 PM) Pulse Rate [55-90 bpm] 98 bpm *H* (04/14/22 4:24 PM) 103 bpm *H* (04/14/22 4:45 AM) 85 bpm (04/13/22 7:39 PM) Blood Pressure [90-138/55-84 mm Hg] 147/61mm Hg *H* (04/14/22 4:24 PM) 182/71mm Hg *H* (04/14/22 4:45 AM) 118/71mm Hg (04/13/22 7:39 PM) Respiratory Rate [16-30 br/min] 17 br/min (04/14/22 4:24 PM) 18 br/min (04/14/22 4:45 AM) 18 br/min (04/13/22 7:39 PM) Temperature [96.8-100.4 DegF] 98.2 DegF (04/14/22 4:24 PM) 98 DegF (04/14/22 4:45 AM) 97.4 DegF (04/13/22 7:39 PM) Mode of Delivery (Oxygen) Room air (04/14/22 4:24 PM) Room air (04/14/22 4:45 AM) Room air (04/13/22 7:39 PM) Blood pressure sites Arm, left (04/13/22 3:22 AM) Arm, left (04/12/22 7:11 PM) Temperature Route Oral (04/14/22 4:24 PM) Oral (04/14/22 4:45 AM) Oral (04/13/22 7:39 PM) Social History Social History Type Response Smoking Status Never (less than 100 in lifetime) entered on: 06/20/19 [facility] Progress note * Abdias Duffy DO: PERFORM Event Display: Progress Note Hospital Authored Date: [id number] Patient: ??ADRIANO CASSIDY ? Age:??61 Years?Sex:??Female?:??1960?? Subjective Chief complaint:? I'd like to go back to Tegretol if possible. ?? Patient seen, chart reviewed, and discussed with treatment team.? Interval History: No acute overnight events. Patient has been adherent with Seroquel and Depakote, but otherwise refusing various home medications (Metoprolol, Lasix, Rosuvastatin). She is seen this afternoon, with a handful of hygiene supplies. She reports that she is feeling well, denying any exacerbation of mood symptoms. Sleep was described as okay but fluctuant throughout the night ( but Igot good REM in there. I like my REM. ). She denies any impairments with appetite. She wonders if she can restart Tegretol, which she had felt well on for a period of about ~1 year in her early 30s. She doesn't recall why she came off it, but the doctor told me it wasn't a strong enough mood stabilizer. That's okay though, I don't need anything too strong. She also reports taking it in combination with Navane (aka Thiothixene), but also eventually taken off that medicine. She expressed a preference to be on monotherapy with Tegretol due to concerns of ~100 lb weight gain on Depakote and Seroquel over the last 10+ years, but amenable to continuing these psychotropic medications for now while she awaits placement at an inpatient psychiatric facility. Otherwise, denies any adverse effects on current medication regimen. ADLs??appear attentive without incident. ??Able to make needs known.??Patient denies any additional??symptoms concerning for anxiety, depression, becca, psychosis or PTSD. Patient denies any suicidal ideation, homicidal ideation or desires for self-injurious behaviors.? Review of Systems Pertinent positives as listed above in HPI. ??Otherwise, remainder of review of systems negative. Objective ? Vital Signs?? Temperature: 98 DegF (04/14/22 04:45:00) Temperature Route: Oral (04/14/22 04:45:00) Pulse Rate:??103 bpm??High (04/14/22 04:45:00) Respiratory Rate: 18 br/min (04/14/22 04:45:00) Systolic Blood Pressure:??182 mm Hg??High (04/14/22 04:45:00) Diastolic Blood Pressure: 71 mm Hg (04/14/22 04:45:00) Pulse Pressure: 111 mm Hg (04/14/22 04:45:00) Oxygen Saturation: 96 % (04/14/22 04:45:00) Mode of Delivery (Oxygen): Room air (04/14/22 04:45:00) ? Physical Exam Mental Status Exam Appearance: Casual, intact grooming and hygiene Eye contact: Within normal limits Attitude: Cooperative Motor Activity: Calm; absent of tics, tremors, psychomotor agitation, psychomotor slowing Mood: Good Affect: Congruent, bright Speech: Spontaneous, less hyperverbal, interruptible; normal tone and prosody Perception: No reported AVH;??appears internally preoccupied, but not overtly responding to internal stimuli Orientation: Intact to person, place, and situation Memory: Grossly intact Thought Process: [place] Thought Content: Delusions, paranoia Medication Adherence: Impaired Reliability: Uncertain, limited historian Insight: Limited Judgment: Limited Impulse control: Limited Suicidality/Self-destructive Behavior: None currently Homicidality/Violence: None currently Muscle strength/tone: Antigravity. No rigidity noted. Moving all four extremities spontaneously. Ambulating without gait disturbance.?? _ Inpatient Medications Medications (11) Active SCHEDULED: (6) Divalproex Sodium 500mg ER Tablet (Depakote ER Tablet) ??1,500 mg, By Mouth, Daily at bedtime Furosemide 40 mg Tablet (furosemide 40 mg oral tablet) ??40 mg, By Mouth, Daily Metoprolol 25mg Tablet (metoprolol 25 mg oral tablet) ??25 mg, By Mouth, Daily Quetiapine 200 mg Tablet (QUEtiapine 200 mg oral tablet) ??200 mg, By Mouth, Daily at bedtime Rosuvastatin 5 mg Tablet (rosuvastatin 5 mg oral tablet) ??10 mg, By Mouth, Daily Thyroid Desiccated 60 mg Tablet (thyroid desiccated 60 mg oral tablet) ??120 mg, By Mouth, Daily CONTINUOUS: (0) PRN: (5) HydrOXYzine Pamoate 25mg Capsule (hydrOXYzine pamoate 25 mg oral capsule) ??25 mg, By Mouth, Every 6 hours Melatonin 3 mg Tablet (Melatonin Tablet) ??9 mg, By Mouth, Daily at bedtime Polyethylene Glycol 17 Gm Powder (Polyethylene Glycol Powder) ??17 Gm 1 pack/packet, By Mouth, Daily Quetiapine 25 mg Tablet (SEROquel 25 mg oral tablet) ??50 mg, By Mouth, Every 6 hours Trazodone 50 mg Tablet (traZODone 50 mg oral tablet) ??50 mg, By Mouth, Daily at bedtime ? Results Recent Labs CHEM GENERAL Glucose, POC 99 mg/dL ()?? 04/13/2022 10:18 ?? UA/URINALYSIS Appear/Color, Urine YELLOW ()?? 04/13/2022 05:02 Specific [place], Urine 1.017 ()?? 04/13/2022 05:02 pH, Urine 6.0 ()?? 04/13/2022 05:02 Albumin, Urine TRACE (Abnormal)?? 04/13/2022 05:02 Glucose, Urine NEGATIVE ()?? 04/13/2022 05:02 Ketones, Urine NEGATIVE ()?? 04/13/2022 05:02 Bilirubin, Urine NEGATIVE ()?? 04/13/2022 05:02 Hemoglobin, Urine NEGATIVE ()?? 04/13/2022 05:02 Nitrite, Urine NEGATIVE ()?? 04/13/2022 05:02 Leukocyte, Urine 2+ (Abnormal)?? 04/13/2022 05:02 Urobilinogen NORMAL mg/dL ()?? 04/13/2022 05:02 WBC's, Urine 8 /HPF (High)?? 04/13/2022 05:02 RBC's, Urine 2 /HPF ()?? 04/13/2022 05:02 Bacteria SLIGHT HPF (Abnormal)?? 04/13/2022 05:02 Squamous Epith 7 /HPF ()?? 04/13/2022 05:02 Mucus SLIGHT /LPF ()?? 04/13/2022 05:02 Hold Urine Culture Testing available 48 hours from time of collection. ()?? 04/13/2022 05:02 ? Assessment/Plan Assessment:?In brief, this is a 61-year-old female with past??medical history significant for??hypertension, hypothyroidism, hyperlipidemia,??diabetes mellitus, and sleep apnea as well as past psychiatric history notable for??bipolar affect of disorder, medication nonadherence,??and numerous in patient psychiatric hospitalizations for treatment of the same, who initially presented to [facility]??on 04/12/2022 for evaluation of??erratic behaviors concerning for an acute manic episode in the context of medication nonadherence. At this point in time, the patient has been medically cleared and referred to Crisis Services??for evaluation and assistance with disposition for potential inpatient psychiatric hospitalization. The emergency psychiatry service was consulted for assistance with medication management. On initial psychiatric evaluation, there is concern for??acute manic episode as evident by recent sleeplessness,??speech impairments,??paranoia and delusions,??and ayanna tation. ??Reassuring that she remains voluntary??bed search for inpatient psychiatric hospitalization??for further stabilization. In the interim, will start??Seroquel and Depakote??at lower doses dueto prolonged medication nonadherence??with??plans for titration back to home doses??when safely poss ible.?Would hold off on cross titration of home psychotropic medications??in the ED setting, butthis can certainly be??performed??on an inpatient psychiatric unit or at the next level of care. ??She was amenable with this plan. ??Given her??concern for weight gain??and metabolic??adverse effects??on antipsychotic??medications, could certainly trial Abilify,??Vraylar,??Geodon, or Rexulti??in the future. ??Latuda may be another option but its not clear as to why she stopped taking it in 2012.?Explained to the patient the differential diagnoses, treatment options, risks of untreated illness, and??risks/benefits??of treatment. See below for additional details??on treatment recommendations. ?? 04/14/22: Stable mood and??presentation based on chart review and today's encounter. ??Denying any SI/HI/AVH. Titrating Depakote and Seroquel as noted below, but otherwise can continue all medications as currently scheduled. ?? Diagnoses: Bipolar affective disorder, current episode manic with psychotic symptoms ??(F31.2) Nonadherence to medication ??(Z91.14) Paranoid delusion ??(F22) Agitation (R45.1) ?? Recommendations: -Disposition as per Crisis Services, albeit currently a bed search for inpatient psychiatric hospitalization. Pending possible transfer to [facility] later this evening, 04/14/22. 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 Patient may NOT leave AMA without psychiatry clearance. -Titrate Seroquel from 150 to 200 mg PO daily at bedtime with further optimization as indicated forpsychosis/becca.?? -Titrate Depakote from 750 to 1500 mg PO daily at bedtime with further optimization as indicated for becca/mood stabilization. Consider Depakote level on 04/17/22 for therapeutic drug monitoring. -Continue Vistaril 25 mg PO Q6H PRN anxiety and Trazodone 50 mg PO daily at bedtime PRN insomnia. -Continue??Seroquel 50 mg PO Q4H PRN agitation.?If there is a need for??alternative??agents, could certainly utilize Zyprexa 5 mg PO/IM Q6H PRN agitation/psychosis.??The preference is for PO medications, but if the patient refuses the oral medications and there is sufficient acute safety concern, can judiciously utilize IM equivalents for severe agitation.?? -Would note that these medications are only being utilized in the ER while the patient awaits placement. Long-term need for these medications will need to be assessed by the patient's future treatingpsychiatrist. -ECG for baseline QT/QTc when able as the patient is on multiple potential QT- prolonging agents. ? Thank you for allowing us to participate in this patient's care. We will continue to follow the patient as needed by the primary team. Please feel free to contact the Psychiatry consult service (pager [phone]) with any questions or concerns.? Abdias Duffy D.O. Emergency Psychiatry Services Division of Consultation-Liaison Psychiatry Department of Psychiatry [facility]? Note * Maggie BUSCH, Trip : PERFORM, SIGN, VERIFY Event Display: Patient Education Handout Authored Date: Patient Care team information Care Team Personnel Name: Marcelino Smith RN Position: [facility] RN Member Role: Primary Care Nurse Name: Denise Tucker RN Position: S RN Member Role: Primary Care Nurse Name: Piero Burks RN Position: S RN Member Role: Primary Care Nurse Name: Ingris Nagy RN Position: S RN Member Role: Primary Care Nurse Name: Agatha Pena RN Position: S RN Member Role: Primary Care Nurse Name: Cristiano Napier MD Position: Reference Physician Member Role: PCP Address: Address: [address] [place] [address] [facility] [place] [address]- Name: Sandoval Coronado RN Position: S RN Member Role: Primary Care Nurse Name: *[facility], ED Attending Position: [facility] ED Attendings Patient Name: Trip Serrano MD Position: [facility] ED Medicine MD Member Role: Admitting Physician Address: Address: [address] [place] [address] [place] [address] Name: Roderick Velazquez RN Position: [facility] ED RN W/OE and Tasks Member Role: Patient Care Provider Name: Abby Caban RN Position: [facility] ED RN W/OE and Tasks Member Role: Patient Care Provider Care Team Related Persons Name: SAQIB HERNANDEZ Address: home [address] [place] Name: SAQIB HERNANDEZ Address: home [address] [place] Name: CAROL MORALEZ Address: home [address] [place], [place] Name: EUFEMIA CASSIDY Address: home [place], [place]
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
[2022-10-04 03:00] VITALS: BP 143/102; PULSE 92; RESP 18; TEMP 36.7; O2SAT 96
[2022-10-04 04:22] VITALS: BMI 39.9
[2022-10-04 08:13] LABS: Cholesterol 146 mg/dL (<200); HDL Cholesterol 52 mg/dL (>40); LDL Cholesterol Calculated 70 mg/dL (<100); Triglycerides 121 mg/dL (<150)
[2022-10-04 08:21] LABS: Estimated Average Glucose 114 mg/dL; Hemoglobin A1c % 5.6 % (<6.0)
[2022-10-04 09:30] VITALS: BP 118/65; PULSE 85; O2SAT 96
--- NOTE | 2022-10-04 10:08 | HO.PSYADMNOT ---
HPI Date of Service: 10/04/22 Chief Complaint: Psychosis/ becca Sources of Information: patient interviewed, chart reviewed and crisis/core team assessment reviewed HPI Subjective Notes: Conditional Voluntary Medical Problems Affecting Mental Status: No Narrative: 62-year-old female, direct admission from [facility] in the context manic symptoms, not sleeping, worsening concentration, increased speech and flight of ideas and intrusiveness. Open to medication review. Endorses visual hallucinations and that she is visionary and sees photographs and this is a unique [place]. Denies auditory hallucinations. Reports there being stressors recently but difficulty giving details. Reports that her mother and brother were insistent that she seek psychiatric inpatient help. Reports that she is not slept for at least a few days prior to ED evaluation. No substance issues. Reported not wanting to go to [facility] inpatient unit as she feels the treatment team there put her on medications that are not particularly helpful and take her off ones that are and give examples of Tegretol and Seroquel, Both being helpful at separate times but also being discontinued and switched to Depakote and Invega. Reports she has been adherent with medications but also feels that a change is necessary. Feels that the Invega / paliperidone is not being particularly helpful. Unsure about perphenazine but willing to take this. Reports in the past that she did well on Tegretol. Also reports doing well on Seroquel and Depakote together. Reports he has been adherent with Depakote 500 mg morning and 1000 mg at bedtime. She may have missed a dose or 2 in the context of being in the ED awaiting medication reconciliation. Agreed to schedule Seroquel 100 mg at bedtime and 50 mg as needed and discontinuation of Invega. Past Psychiatric History: reports multiple admissions since 2021. Reports 12 ED evaluations since 2021 with 8 inpatient episodes. Had a 2 month admission to [facility] with discharge May 2022. Was on Tegretol at that time and found it helpful. Reports this being changed when she went to [facility] afterwards and unsure why but that symptoms got worse. Was seeing Dr. Butler for many years up until his Skilled Nursing in 2021. Has an appointment with a new prescriber ( Beata Vincent) in [place] this coming week. reports past medications have included Invega, perphenazine, Abilify, Geodon, olanzapine, lithium and Lamictal. Reports either no benefit or side effects. Does report however that Depakote in combination with an antipsychotic have been helpful or Tegretol with an antipsychotic. Reports Seroquel was helpful in the past at doses between 300 and 600 mg. Medical Evaluation Reviewed: Hospitalist Eval Pending hospitalist eval pending. Lab work from [facility] unremarkable [facility] Social History: Lives alone. Mom and sister live in the same town. 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 . No children. Enjoys knitting and painting Substance History: denied Diagnostics Vital Signs (24Hr): Vital Signs - 24 hr 10/04/22 03:00 10/04/22 09:30 Temperature 98.0 F Pulse Rate 92 85 Respiratory Rate 18 Blood Pressure 143/102 H 118/65 Pulse Oximetry 96 96 Oxygen Delivery Method Room Air Room Air BMI result Body Mass Index 39.9 Labs Labs: Laboratory Results - last 48 hr 10/04/22 10/04/22 07:18 07:18 Estimat Average Glucose 114 Hemoglobin A1c % 5.6 Triglycerides 121 Cholesterol 146 LDL Cholesterol, Calc 70 HDL Cholesterol 52 Meds/Allergies Meds Home Medications Medication Instructions Recorded Confirmed Type amlodipine 2.5 mg tablet 2.5 mg PO DAILY 10/04/22 10/04/22 History benztropine 1 mg tablet 1 mg PO BID 10/04/22 10/04/22 History divalproex 250 mg tablet,extended 250 mg PO BID 10/04/22 10/04/22 History release 24 hr divalproex 250 mg tablet,extended 250 mg PO BID 10/04/22 10/04/22 History release 24 hr (Depakote ER) furosemide 20 mg tablet 20 mg PO DAILY 10/04/22 10/04/22 History glipizide 2.5 mg tablet, extended 2.5 mg PO DAILY 10/04/22 10/04/22 History release 24 hr lorazepam 0.5 mg tablet 0.5 mg PO BEDTIME 10/04/22 10/04/22 History metoprolol succinate 25 mg 25 mg PO DAILY 10/04/22 10/04/22 History tablet,extended release 24 hr paliperidone 6 mg tablet,extended 6 mg PO DAILY 10/04/22 10/04/22 History release 24 hr (Invega) perphenazine 2 mg tablet 4 mg PO BID 10/04/22 10/04/22 History rosuvastatin 10 mg tablet 10 mg PO BEDTIME 10/04/22 10/04/22 History thyroid (pork) 120 mg tablet 120 mg PO DAILY 10/04/22 10/04/22 History (Colby Thyroid) trazodone 150 mg tablet 150 mg PO BEDTIME 10/04/22 10/04/22 History valproic acid (as sodium salt) 250 1,000 mg PO DAILY 10/04/22 10/04/22 History mg/5 mL oral solution Allergies Allergies Allergy/AdvReac Type Severity Reaction Status Date / Time amoxicillin Allergy Unknown Uncoded 04/30/18 00:00 Pt states no food allergy Allergy Unknown Uncoded 04/30/18 00:00 Assessment & Plan Assessment & Plan (1) Bipolar affective disorder, manic, severe, with psychotic behavior: Status: Acute Code(s): F31.2 - Bipolar disorder, current episode manic severe with psychotic features Plan presents with manic episode and comorbid psychotic symptoms. Reports adherence with medications. Unclear stressors. No substance issues. Given patient history and willingness around medication strategies, will discontinue Invega, maintain Depakote at 500 mg morning and 1000 mg at bedtime, maintain perphenazine. Start Seroquel 100 mg at bedtime and gradually increased to minimum dose of 300 mg. Will also have 50 mg as needed. We will get Depakote level after the weekend. Patient educated on: diagnosis and medication risk/benefits Informed Consent: understands Reason for continued inpatient stay Substantial Risk for: inability to function Statement Statement: I have reviewed the history and physical and performed a pertinent examination on my patient. No changes have occurred unless specified. If the History and Physical was not performed prior to admission, the Hospitalist's service will be consulted for completing the admission physical. Time Spent With Patient Time: Total time managing care of this patient today ____ minutes.
--- NOTE | 2022-10-04 11:08 | P.CONHOSP_ITS ---
History of Present Illness Data of Consult Service Date: 10/04/22 Primary Care Provider: Unknown Physician HPI Reason for consult: Admission H&P Pt is a 62-year-old female with a PMH significant for?HTN, HLD, non-insulin- dependent diabetes type 2, hypothyroidism, chronic lower leg edema, and PTSD who is admitted to [facility] unit for increased insomnia and reportedly not sleeping for multiple days at a time. Medical consult for admission H&P. ?Patient states she is feeling ?much better? since sleeping some yesterday and also last night. Patient seems very aware of her medical history and current medical condition. She is followed closely by multiple providers in the community, including PCP, director of early childhood, and spring fitter helper. States she missed a recent spring fitter helper appointment or she was to schedule a stress test. She inquired about getting the testing done here, but was told to reschedule with her spring fitter helper as that would be an outpatient procedure. She has no acute medical complaints at this time. Chronic lower leg edema at baseline. Denies lightheadedness, dizziness, headache. No chest pain/pressure, palpitations. Denies fever, chills, nausea, vomiting, diarrhea, abdominal pain. No shortness of breath. Review of Systems Review of Systems: Patient has no acute medical complaints at this time PMFSH Social History Household Members: None Housing: Condominium Do you presently have visiting nurse or other home services: No Patient Tobacco Use Status: Never used Tobacco Use of substances other than those prescribed or required for medical reasons: No Have you been hit, kicked, punched, or otherwise hurt by someone within the past year? If so, by whom?: No Do you feel safe in your current relationship?: No Current Relationship Is there a partner from a previous relationship who is making you feel unsafe now?: No Are you made to feel afraid or neglected: No [facility] Practices: catholocism Advance Directives: No Advance Directives Information Provided: No Do you have thoughts of harming others: None Do you have a plan to hurt others: No Plan Recently lost weight without trying: No Nutrition Risks: No Nutritional Risk Patient : No : No Poor oral hygiene: No Meds Allergies Allergy/AdvReac Type Severity Reaction Status Date / Time amoxicillin Allergy Unknown Uncoded 04/30/18 00:00 Pt states no food allergy Allergy Unknown Uncoded 04/30/18 00:00 Active Medications: Current Medications Acetaminophen (Acetaminophen 325 Mg Tablet) 650 mg PO Q6H PRN PRN Reason: Headache/Pain Mild Scale (1-3) Al Hydroxide/Mg Hydroxide (Magnesium Hydrox/Alum Hydrox 30 Ml Oral.Susp) 30 ml PO Q6H PRN PRN Reason: Heartburn/Nausea Hydroxyzine HCl (Hydroxyzine Hcl 25 Mg Tablet) 25 mg PO Q6H PRN PRN Reason: Anxiety Magnesium Hydroxide (Milk Of Magnesia 30 Ml Oral.Susp) 30 ml PO DAILY PRN PRN Reason: Constipation Nicotine (Nicotine 21 Mg Patch.Td24) 21 mg TRANSDERMA DAILY PRN PRN Reason: smoking cessation Nicotine Polacrilex (Nicotine Polacrilex 2 Mg Gum) 4 mg BUCCAL Q2H PRN PRN Reason: Nicotine Cravings Olanzapine (Olanzapine 5 Mg Tablet) 5 mg PO TID PRN PRN Reason: agitation Trazodone HCl (Trazodone Hcl 50 Mg Tablet) 50 mg PO BEDTIME MRX1 PRN PRN Reason: Insomnia Physical Exam Vital Signs and Narrative: Vital Signs: Last Vital Signs Temp 98.0 F 10/04/22 03:00 Pulse 85 10/04/22 09:30 Resp 18 10/04/22 03:00 BP 118/65 10/04/22 09:30 Pulse Ox 96 10/04/22 09:30 O2 Del Method Room Air 10/04/22 09:30 BMI result Body Mass Index 39.9 Constitutional: Alert, in no acute distress. Mental Status: Oriented to person, place and time. Eyes: Pupils are equal, round, and reactive to light. Ear, Nose, and Throat: Oropharynx clear, mucous membranes moist. Ears and nose without deformities. Trachea midline. Respiratory: Clear to auscultation bilaterally. No wheezing, rales, or rhonchi. Cardiovascular: S1, S2 regular. No murmurs, rubs, or gallops. Gastrointestinal: Abdomen soft, non-tender, non-distended. Normal bowel sounds. Neurologic: Cranial nerves II-XII are grossly intact bilaterally. No focal neurological deficits. Moves all extremities spontaneously. Skin: No rashes or lesions noted. Musculoskeletal: No cyanosis or clubbing. Extremities: Chronic bilateral edema. Psychiatric: Normal mood and affect. Results Labs Labs: Laboratory Results - last 24 hr 10/04/22 10/04/22 07:18 07:18 Estimat Average Glucose 114 Hemoglobin A1c % 5.6 Triglycerides 121 Cholesterol 146 LDL Cholesterol, Calc 70 HDL Cholesterol 52 Assessment and Plan (1) Routine history and physical examination of adult: Status: Acute Plan Pt is a 62-year-old female with a PMH significant for?HTN, HLD, meo-vpiqcat-nijhsqifz diabetes type 2, hypothyroidism, chronic lower leg edema, and PTSD who is admitted to [facility] unit for increased insomnia and reportedly not sleeping for multiple days at a time. Medical consult for admission H&P. ?Patient has no acute medical complaints. Mood disorder Plan as per Psychiatry HTN Continue amlodipine, metoprolol HLD Continue statin Non insulin-dependent diabetes type 2 Continue glipizide Chronic lower leg edema Continue furosemide Thank you for allowing us to participate in the care of this patient. Signing off at this time. Please let us know if there are any acute complaints or questions. Time Spent With Patient Time: Total time managing care of this patient today ____ minutes.
[2022-10-04] MEDS: Metoprolol Succinate ER 25 MG TAB.ER.24H PO (14:09)
[2022-10-04] MEDS: Divalproex Sodium 500 MG TABLET.DR PO (14:10)
[2022-10-04] MEDS: Perphenazine 4 MG TABLET PO (14:10)
[2022-10-04] MEDS: Furosemide 20 MG TABLET PO (14:10)
[2022-10-04] MEDS: Benztropine Mesylate 1 MG TABLET PO ×2 (14:11→21:14)
[2022-10-04 18:00] VITALS: BP 128/82; PULSE 89; RESP 16; TEMP 36.4; O2SAT 97
[2022-10-04] MEDS: Thyroid,Pork 30 MG TABLET 120 MG PO (18:08)
[2022-10-04] MEDS: glipiZIDE XL 2.5 MG TAB.ER.24 PO (18:08)
[2022-10-04] MEDS: amLODIPine Besylate 2.5 MG TABLET PO (18:08)
[2022-10-04] MEDS: polyethylene glycoL 3350 17 GM POWD.PACK PO (18:10)
[2022-10-04] MEDS: Atorvastatin Calcium 40 MG TABLET PO (21:14)
[2022-10-04] MEDS: LORazepam 0.5 MG TABLET PO (21:14)
[2022-10-04] MEDS: QUEtiapine Fumarate 100 MG TABLET PO (21:14)
[2022-10-04] MEDS: traZODone HCL 50 MG TABLET 150 MG PO (21:14)
[2022-10-04] MEDS: Divalproex Sodium 500 MG TABLET.DR 1000 MG PO (21:14)
--- NOTE | 2022-10-05 06:47 | PC.NURSE ---
Patient requested to sign 3 day notice. Form filled out and filed, appropriate providers notified.
[2022-10-05] MEDS: Thyroid,Pork 30 MG TABLET 120 MG PO (06:49)
[2022-10-05] MEDS: glipiZIDE XL 2.5 MG TAB.ER.24 PO (09:12)
[2022-10-05] MEDS: Perphenazine 4 MG TABLET PO (09:12)
[2022-10-05] MEDS: amLODIPine Besylate 2.5 MG TABLET PO (09:12)
[2022-10-05] MEDS: Furosemide 20 MG TABLET PO (09:12)
[2022-10-05] MEDS: Benztropine Mesylate 1 MG TABLET PO ×2 (09:12→20:02)
[2022-10-05] MEDS: Divalproex Sodium 500 MG TABLET.DR PO (09:13)
[2022-10-05] MEDS: Aspirin 81 MG TAB.CHEW PO (09:13)
[2022-10-05 09:14] VITALS: BP 111/55; PULSE 81; RESP 18; TEMP 36.1; O2SAT 93
[2022-10-05] MEDS: polyethylene glycoL 3350 17 GM POWD.PACK PO (09:29)
--- NOTE | 2022-10-05 12:41 | P.PNPSI_ITS ---
Subjective Subjective Date of Service: 10/05/22 Reason For Visit: Psychosis/ becca Subjective Notes: Conditional Voluntary Interim History: met with patient. Discussed with Nursing. Overall adherent with medications but declined perphenazine. reports Seroquel has been helpful for sleep. Encouraged to maintain perphenazine dosing until Seroquel gets to at least 300 mg. Showed screenplay writer her notes regarding a assembler installer general that she reports she had contact with through [employer] and ultimately led to her deterioration in mental state since 2021. Feels she is being well cared for on the unit. Sleep okay. No safety concerns. Medication Compliance: Yes Side effects from medications: No Attending Groups: Yes Review of Systems Acute medical concerns: No Review of Systems Review of Systems Patient has no acute medical complaints at this time Yes all other systems are reviewed and are negative Mental Status Exam Mental Status Exam Narrative: Pleasant. Engaged. Fairly presented. Less pressured speech today. Approaching euthymia. No SI. No HI. No overt psychosis today. Insight and judgment fair Diagnostics Vital Signs (24Hr): Vital Signs - 24 hr 10/04/22 18:00 10/05/22 09:14 Temperature 97.6 F 96.9 F Pulse Rate 89 81 Respiratory Rate 16 18 Blood Pressure 128/82 111/55 L Pulse Oximetry 97 93 Oxygen Delivery Method Room Air Room Air BMI result Body Mass Index 39.9 Labs Labs: Laboratory Results - last 48 hr 10/04/22 10/04/22 07:18 07:18 Estimat Average Glucose 114 Hemoglobin A1c % 5.6 Triglycerides 121 Cholesterol 146 LDL Cholesterol, Calc 70 HDL Cholesterol 52 Medications Medications Current Medications Acetaminophen (Acetaminophen 325 Mg Tablet) 650 mg PO Q6H PRN PRN Reason: Headache/Pain Mild Scale (1-3) Al Hydroxide/Mg Hydroxide (Magnesium Hydrox/Alum Hydrox 30 Ml Oral.Susp) 30 ml PO Q6H PRN PRN Reason: Heartburn/Nausea Amlodipine Besylate (Amlodipine Besylate 2.5 Mg Tablet) 2.5 mg PO DAILY [facility]; Protocol Last Admin: 10/05/22 09:12 Dose: 2.5 mg Aspirin (Aspirin 81 Mg Tab.Chew) 81 mg PO DAILY [facility] [place] Last Admin: 10/05/22 09:13 Dose: 81 mg Atorvastatin Calcium (Atorvastatin Calcium 40 Mg Tablet) 40 mg PO BEDTIME [facility] Last Admin: 10/04/22 21:14 Dose: 40 mg Benztropine Mesylate (Benztropine Mesylate 1 Mg Tablet) 1 mg PO BID [facility] [place] Last Admin: 10/05/22 09:12 Dose: 1 mg Divalproex Sodium (Divalproex Sodium 500 Mg Tablet.Dr) 500 mg PO DAILY [facility] [place] Last Admin: 10/05/22 09:13 Dose: 500 mg Divalproex Sodium (Divalproex Sodium 500 Mg Tablet.Dr) 1,000 mg PO BEDTIME [facility] [place] Last Admin: 10/04/22 21:14 Dose: 1,000 mg Furosemide (Furosemide 20 Mg Tablet) 20 mg PO DAILY [facility] [place]; Protocol Last Admin: 10/05/22 09:12 Dose: 20 mg Glipizide (Glipizide Xl 2.5 Mg Tab.Er.24) 2.5 mg PO DAILY [facility] [place] Last Admin: 10/05/22 09:12 Dose: 2.5 mg Hydroxyzine HCl (Hydroxyzine Hcl 25 Mg Tablet) 25 mg PO Q6H PRN PRN Reason: Anxiety Lorazepam (Lorazepam 0.5 Mg Tablet) 0.5 mg PO BEDTIME [facility] [place] Last Admin: 10/04/22 21:14 Dose: 0.5 mg Magnesium Hydroxide (Milk Of Magnesia 30 Ml Oral.Susp) 30 ml PO DAILY PRN PRN Reason: Constipation Metoprolol Succinate (Metoprolol Succinate Er 25 Mg Tab.Er.24h) 25 mg PO DAILY [facility] [place]; Protocol Last Admin: 10/05/22 10:00 Dose: Not Given Nicotine (Nicotine 21 Mg Patch.Td24) 21 mg TRANSDERMA DAILY PRN PRN Reason: smoking cessation Nicotine Polacrilex (Nicotine Polacrilex 2 Mg Gum) 4 mg BUCCAL Q2H PRN PRN Reason: Nicotine Cravings Perphenazine (Perphenazine 4 Mg Tablet) 4 mg PO BID [facility] [place] Last Admin: 10/05/22 09:12 Dose: 4 mg Polyethylene Glycol (Polyethylene Glycol 3350 17 Gm Powd.Pack) 17 gm PO DAILY PRN PRN Reason: constipation Last Admin: 10/05/22 09:29 Dose: 17 gm Quetiapine Fumarate (Quetiapine Fumarate 100 Mg Tablet) 100 mg PO BEDTIME [facility] [place] Last Admin: 10/04/22 21:14 Dose: 100 mg Quetiapine Fumarate (Quetiapine Fumarate 50 Mg Tablet) 50 mg PO TID PRN PRN Reason: agitation, manic symptoms Thyroid (Thyroid,Pork 30 Mg Tablet) 120 mg PO DAILY [facility] [place] Last Admin: 10/05/22 06:49 Dose: 120 mg Trazodone HCl (Trazodone Hcl 50 Mg Tablet) 150 mg PO BEDTIME [facility] [place] Last Admin: 10/04/22 21:14 Dose: 150 mg Allergies Allergies Allergy/AdvReac Type Severity Reaction Status Date / Time amoxicillin Allergy Unknown Uncoded 04/30/18 00:00 Pt states no food allergy Allergy Unknown Uncoded 04/30/18 00:00 Assessment & Plan Assessment & Plan (1) Bipolar affective disorder, manic, severe, with psychotic behavior: Status: Acute Code(s): F31.2 - Bipolar disorder, current episode manic severe with psychotic features Plan presents with manic episode and comorbid psychotic symptoms. Reports adherence with medications. Unclear stressors. No substance issues. Given patient history and willingness around medication strategies, will discontinue Invega, maintain Depakote at 500 mg morning and 1000 mg at bedtime, maintain perphenazine. Start Seroquel 100 mg at bedtime and gradually increased to minimum dose of 300 mg. Will also have 50 mg as needed. We will get Depakote level after the weekend. 10/05/2022: Increase Seroquel to 200 mg Reason for continued inpatient stay Substantial Risk for: inability to function Time Spent With Patient Time: Total time managing care of this patient today ____ minutes.
[2022-10-05 19:30] VITALS: BP 120/58; PULSE 100; RESP 16; TEMP 36.6; O2SAT 98
[2022-10-05] MEDS: Divalproex Sodium 500 MG TABLET.DR 1000 MG PO (20:02)
[2022-10-05] MEDS: LORazepam 0.5 MG TABLET PO (20:02)
[2022-10-05] MEDS: Atorvastatin Calcium 40 MG TABLET PO (20:02)
[2022-10-05] MEDS: traZODone HCL 50 MG TABLET 150 MG PO (20:02)
[2022-10-05] MEDS: QUEtiapine Fumarate 200 MG TABLET PO (20:03)
[2022-10-05] MEDS: hydrOXYzine HCL 25 MG TABLET PO (22:00)
--- NOTE | 2022-10-05 22:01 | PC.NURSE ---
Pt states that her heart is racing, Vitals: BP-125/58, Pulse-115, O2 Sat-97%. T-97.6. PRN Atarax given, call center associate provider Tez Arellano notified. No new orders given
[2022-10-06] MEDS: Thyroid,Pork 30 MG TABLET 120 MG PO (06:50)
[2022-10-06] MEDS: Furosemide 20 MG TABLET PO (08:45)
[2022-10-06] MEDS: glipiZIDE XL 2.5 MG TAB.ER.24 PO (08:45)
[2022-10-06] MEDS: Benztropine Mesylate 1 MG TABLET PO ×2 (08:45→21:13)
[2022-10-06] MEDS: amLODIPine Besylate 2.5 MG TABLET PO (08:45)
[2022-10-06] MEDS: Aspirin 81 MG TAB.CHEW PO (08:45)
[2022-10-06] MEDS: Divalproex Sodium 500 MG TABLET.DR PO (08:45)
[2022-10-06] MEDS: Perphenazine 4 MG TABLET PO (08:45)
[2022-10-06 09:33] LABS: Valproate 60.5 mcg/mL (50.0-100.0)
[2022-10-06 09:45] VITALS: BP 114/57; PULSE 76; RESP 18; TEMP 36.3; O2SAT 94
[2022-10-06] MEDS: polyethylene glycoL 3350 17 GM POWD.PACK PO (12:12)
[2022-10-06 16:20] VITALS: BP 120/58; PULSE 95; TEMP 35.9
--- NOTE | 2022-10-06 16:28 | HO.PSYCHPN ---
Subjective Subjective Date of Service: 10/06/22 Reason For Visit: Psychosis/ becca Subjective Notes: Conditional Voluntary and 3 Day Healthcare Proxy: No Guardianship: No Medical Problems Affecting Mental Status: No Interim History: TDN to 10/08. Pt is a thorough historian. She discussed precipitants to admission and her thoughts on medications, efficacy and changes. She is considering a Tegretol trial. She is disappointed that her family believes is not trusting of her concerns regarding precipitants to admission. Discussed her thoughts on a complete plan of care for her brief time here. Medication Compliance: Yes Side effects from medications: No Attending Groups: Yes Review of Systems Acute medical concerns: No Medical Review of Systems: unchanged Mental Status Exam Mental Status Exam Patient Appearance: Appropriate Patient Orientation: Person, Place, Time and Situation Level of Consciousness: Alert Patient Behavior: Talkative, Cooperative and Good Eye Contact Mood Description: Appropriate and Anxious Affect Description: Anxious Patient Cognition Impaired: No Ability to Follow Directions: Good Speech Pattern: Spontaneous Speech Memory Description: Intact Hallucinations: None Delusions: Not Present Perceptual Disturbances: Depersonalization and Derealization Thought Process: Racing (mild), Distracted and Rumination Thought Content: positive for Racing (mild) and positive for Circumstantial Depressive Symptoms: Increased Anxiety and Difficulty Concentrating Judgement: Fair Diagnostics Vital Signs (24Hr): Vital Signs - 24 hr 10/05/22 19:30 10/06/22 09:45 Temperature 97.8 F 97.3 F Pulse Rate 100 76 Respiratory Rate 16 18 Blood Pressure 120/58 L 114/57 L Pulse Oximetry 98 94 Oxygen Delivery Method Room Air Room Air BMI result Body Mass Index 39.9 Labs Labs: Laboratory Results - last 48 hr 10/06/22 09:11 Valproic Acid 60.5 Medications Medications Current Medications Acetaminophen (Acetaminophen 325 Mg Tablet) 650 mg PO Q6H PRN PRN Reason: Headache/Pain Mild Scale (1-3) Al Hydroxide/Mg Hydroxide (Magnesium Hydrox/Alum Hydrox 30 Ml Oral.Susp) 30 ml PO Q6H PRN PRN Reason: Heartburn/Nausea Amlodipine Besylate (Amlodipine Besylate 2.5 Mg Tablet) 2.5 mg PO DAILY [facility]; Protocol Last Admin: 10/06/22 08:45 Dose: 2.5 mg Aspirin (Aspirin 81 Mg Tab.Chew) 81 mg PO DAILY [facility] Last Admin: 10/06/22 08:45 Dose: 81 mg Atorvastatin Calcium (Atorvastatin Calcium 40 Mg Tablet) 40 mg PO BEDTIME [facility] Last Admin: 10/05/22 20:02 Dose: 40 mg Benztropine Mesylate (Benztropine Mesylate 1 Mg Tablet) 1 mg PO BID [facility] Last Admin: 10/06/22 08:45 Dose: 1 mg Divalproex Sodium (Divalproex Sodium 500 Mg Tablet.Dr) 500 mg PO DAILY [facility] Last Admin: 10/06/22 08:45 Dose: 500 mg Divalproex Sodium (Divalproex Sodium 500 Mg Tablet.Dr) 1,000 mg PO BEDTIME [facility] Last Admin: 10/05/22 20:02 Dose: 1,000 mg Furosemide (Furosemide 20 Mg Tablet) 20 mg PO DAILY [facility]; Protocol Last Admin: 10/06/22 08:45 Dose: 20 mg Glipizide (Glipizide Xl 2.5 Mg Tab.Er.24) 2.5 mg PO DAILY [facility] Last Admin: 10/06/22 08:45 Dose: 2.5 mg Hydroxyzine HCl (Hydroxyzine Hcl 25 Mg Tablet) 25 mg PO Q6H PRN PRN Reason: Anxiety Last Admin: 10/05/22 22:00 Dose: 25 mg Lorazepam (Lorazepam 0.5 Mg Tablet) 0.5 mg PO BEDTIME [facility] Last Admin: 10/05/22 20:02 Dose: 0.5 mg Magnesium Hydroxide (Milk Of Magnesia 30 Ml Oral.Susp) 30 ml PO DAILY PRN PRN Reason: Constipation Metoprolol Succinate (Metoprolol Succinate Er 25 Mg Tab.Er.24h) 25 mg PO DAILY [facility]; Protocol Last Admin: 10/06/22 08:46 Dose: Not Given Nicotine (Nicotine 21 Mg Patch.Td24) 21 mg TRANSDERMA DAILY PRN PRN Reason: smoking cessation Nicotine Polacrilex (Nicotine Polacrilex 2 Mg Gum) 4 mg BUCCAL Q2H PRN PRN Reason: Nicotine Cravings Perphenazine (Perphenazine 4 Mg Tablet) 4 mg PO BID [facility] Last Admin: 10/06/22 08:45 Dose: 4 mg Polyethylene Glycol (Polyethylene Glycol 3350 17 Gm Powd.Pack) 17 gm PO DAILY PRN PRN Reason: constipation Last Admin: 10/06/22 12:12 Dose: 17 gm Quetiapine Fumarate (Quetiapine Fumarate 50 Mg Tablet) 50 mg PO TID PRN PRN Reason: agitation, manic symptoms Quetiapine Fumarate (Quetiapine Fumarate 300 Mg Tablet) 300 mg PO BEDTIME [facility] Thyroid (Thyroid,Pork 30 Mg Tablet) 120 mg PO DAILY [facility] Last Admin: 10/06/22 06:50 Dose: 120 mg Trazodone HCl (Trazodone Hcl 50 Mg Tablet) 150 mg PO BEDTIME [facility] Last Admin: 10/05/22 20:02 Dose: 150 mg Allergies Allergies Allergy/AdvReac Type Severity Reaction Status Date / Time amoxicillin Allergy Unknown Uncoded 04/30/18 00:00 Pt states no food allergy Allergy Unknown Uncoded 04/30/18 00:00 Assessment & Plan Assessment & Plan (1) Bipolar affective disorder, manic, severe, with psychotic behavior: Status: Acute Code(s): F31.2 - Bipolar disorder, current episode manic severe with psychotic features Plan presents with manic episode and comorbid psychotic symptoms. Reports adherence with medications. Unclear stressors. No substance issues. Given patient history and willingness around medication strategies, will discontinue Invega, maintain Depakote at 500 mg morning and 1000 mg at bedtime, maintain perphenazine. Start Seroquel 100 mg at bedtime and gradually increased to minimum dose of 300 mg. Will also have 50 mg as needed. We will get Depakote level after the weekend. 10/05/2022: Increase Seroquel to 200 mg 10/06/22: Continue plan of care. TDN filed for 10/08. Patient educated on: medication risk/benefits and therapeutic strategies Informed Consent: understands and further education needed Reason for continued inpatient stay Substantial Risk for: rapid decompensation Time Spent With Patient Time: Total time managing care of this patient today ____ minutes.
[2022-10-06] MEDS: Milk of Magnesia 30 ML ORAL.SUSP PO (18:56)
[2022-10-06] MEDS: Divalproex Sodium 500 MG TABLET.DR 1000 MG PO (21:10)
[2022-10-06] MEDS: Atorvastatin Calcium 40 MG TABLET PO (21:10)
[2022-10-06] MEDS: LORazepam 0.5 MG TABLET PO (21:10)
[2022-10-06] MEDS: QUEtiapine Fumarate 300 MG TABLET PO (21:11)
[2022-10-06] MEDS: traZODone HCL 50 MG TABLET 150 MG PO (21:13)
[2022-10-07 00:23] VITALS: BP 121/58; PULSE 110
[2022-10-07] MEDS: Magnesium Hydrox/Alum Hydrox 30 ML ORAL.SUSP PO (03:02)
[2022-10-07] MEDS: Thyroid,Pork 30 MG TABLET 120 MG PO (06:49)
[2022-10-07] MEDS: glipiZIDE XL 2.5 MG TAB.ER.24 PO (08:46)
[2022-10-07] MEDS: Divalproex Sodium 500 MG TABLET.DR PO (08:46)
[2022-10-07] MEDS: polyethylene glycoL 3350 17 GM POWD.PACK PO (08:46)
[2022-10-07] MEDS: amLODIPine Besylate 2.5 MG TABLET PO (08:46)
[2022-10-07] MEDS: Furosemide 20 MG TABLET PO (08:47)
[2022-10-07] MEDS: Perphenazine 4 MG TABLET PO (08:47)
[2022-10-07] MEDS: Aspirin 81 MG TAB.CHEW PO (08:47)
[2022-10-07] MEDS: Benztropine Mesylate 1 MG TABLET PO ×2 (08:47→20:11)
[2022-10-07 08:52] VITALS: BP 110/55; PULSE 89; RESP 18; TEMP 36.7; O2SAT 94
[2022-10-07] MEDS: Milk of Magnesia 30 ML ORAL.SUSP PO (11:14)
[2022-10-07] MEDS: Magnesium Oxide 400 MG TABLET PO (16:35)
[2022-10-07 19:03] VITALS: BP 129/62; PULSE 90; TEMP 36.4; O2SAT 93
--- NOTE | 2022-10-07 19:20 | HO.PSYCHPN ---
Subjective Subjective Date of Service: 10/07/22 Reason For Visit: Psychosis/ becca Subjective Notes: Conditional Voluntary Healthcare Proxy: No Guardianship: No Medical Problems Affecting Mental Status: No Interim History: Pt has retracted her TDN. She would like to trial Tegretol, which she has done well on in the past. She would like to replace Depakote with Tegretol. We will cross taper/trial. Will begin 100 mg bid, continue Seroquel at 300 mg HS Reports constipation. Dulcolax is available for pt Also reports she takes MgOx at home , 400 mg which is ordered. Medication Compliance: Yes Side effects from medications: No Attending Groups: Yes Review of Systems Acute medical concerns: No Medical Review of Systems: unchanged Mental Status Exam Mental Status Exam Patient Appearance: Appropriate Patient Orientation: Person, Place, Time and Situation Level of Consciousness: Alert Patient Behavior: Talkative, Cooperative and Good Eye Contact Mood Description: Appropriate and Anxious Affect Description: Anxious Patient Cognition Impaired: No Ability to Follow Directions: Good Speech Pattern: Spontaneous Speech Memory Description: Intact Hallucinations: None Delusions: Not Present Perceptual Disturbances: Depersonalization and Derealization Thought Process: Racing (mild), Distracted and Rumination Thought Content: positive for Racing (mild) and positive for Circumstantial Depressive Symptoms: Increased Anxiety and Difficulty Concentrating Judgement: Fair Diagnostics Vital Signs (24Hr): Vital Signs - 24 hr 10/07/22 00:23 10/07/22 08:52 Temperature 98.0 F Pulse Rate 110 H 89 Respiratory Rate 18 Blood Pressure 121/58 L 110/55 L Pulse Oximetry 94 Oxygen Delivery Method Room Air BMI result Body Mass Index 39.9 Labs Labs: Laboratory Results - last 48 hr 10/06/22 09:11 Valproic Acid 60.5 Medications Medications Current Medications Acetaminophen (Acetaminophen 325 Mg Tablet) 650 mg PO Q6H PRN PRN Reason: Headache/Pain Mild Scale (1-3) Al Hydroxide/Mg Hydroxide (Magnesium Hydrox/Alum Hydrox 30 Ml Oral.Susp) 30 ml PO Q6H PRN PRN Reason: Heartburn/Nausea Last Admin: 10/07/22 03:02 Dose: 30 ml Amlodipine Besylate (Amlodipine Besylate 2.5 Mg Tablet) 2.5 mg PO DAILY [facility]; Protocol Last Admin: 10/07/22 08:46 Dose: 2.5 mg Aspirin (Aspirin 81 Mg Tab.Chew) 81 mg PO DAILY [facility] Last Admin: 10/07/22 08:47 Dose: 81 mg Atorvastatin Calcium (Atorvastatin Calcium 40 Mg Tablet) 40 mg PO BEDTIME [facility] Last Admin: 10/06/22 21:10 Dose: 40 mg Benztropine Mesylate (Benztropine Mesylate 1 Mg Tablet) 1 mg PO BID [facility] Last Admin: 10/07/22 08:47 Dose: 1 mg Bisacodyl (Bisacodyl 5 Mg Tablet.) 10 mg PO DAILY PRN PRN Reason: Constipation Carbamazepine (Carbamazepine 100 Mg Tab.Chew) 100 mg PO BID [facility] Divalproex Sodium (Divalproex Sodium 500 Mg Tablet.) 500 mg PO DAILY [facility] Last Admin: 10/07/22 08:46 Dose: 500 mg Divalproex Sodium (Divalproex Sodium 500 Mg Tablet.) 1,000 mg PO BEDTIME [facility] Last Admin: 10/06/22 21:10 Dose: 1,000 mg Furosemide (Furosemide 20 Mg Tablet) 20 mg PO DAILY [facility]; Protocol Last Admin: 10/07/22 08:47 Dose: 20 mg Glipizide (Glipizide Xl 2.5 Mg Tab.Er.24) 2.5 mg PO DAILY [facility] Last Admin: 10/07/22 08:46 Dose: 2.5 mg Hydroxyzine HCl (Hydroxyzine Hcl 25 Mg Tablet) 25 mg PO Q6H PRN PRN Reason: Anxiety Last Admin: 10/05/22 22:00 Dose: 25 mg Lorazepam (Lorazepam 0.5 Mg Tablet) 0.5 mg PO BEDTIME [facility] Last Admin: 10/06/22 21:10 Dose: 0.5 mg Magnesium Hydroxide (Milk Of Magnesia 30 Ml Oral.Susp) 30 ml PO DAILY PRN PRN Reason: Constipation Last Admin: 10/07/22 11:14 Dose: 30 ml Magnesium Oxide (Magnesium Oxide 400 Mg Tablet) 400 mg PO DAILY [facility] Last Admin: 10/07/22 16:35 Dose: 400 mg Metoprolol Succinate (Metoprolol Succinate Er 25 Mg Tab.Er.24h) 25 mg PO DAILY [facility]; Protocol Last Admin: 10/07/22 08:47 Dose: Not Given Nicotine (Nicotine 21 Mg Patch.Td24) 21 mg TRANSDERMA DAILY PRN PRN Reason: smoking cessation Nicotine Polacrilex (Nicotine Polacrilex 2 Mg Gum) 4 mg BUCCAL Q2H PRN PRN Reason: Nicotine Cravings Polyethylene Glycol (Polyethylene Glycol 3350 17 Gm Powd.Pack) 17 gm PO DAILY PRN PRN Reason: constipation Last Admin: 10/07/22 08:46 Dose: 17 gm Quetiapine Fumarate (Quetiapine Fumarate 50 Mg Tablet) 50 mg PO TID PRN PRN Reason: agitation, manic symptoms Quetiapine Fumarate (Quetiapine Fumarate 300 Mg Tablet) 300 mg PO BEDTIME [facility] Last Admin: 10/06/22 21:11 Dose: 300 mg Thyroid (Thyroid,Pork 30 Mg Tablet) 120 mg PO DAILY [facility] Last Admin: 10/07/22 06:49 Dose: 120 mg Trazodone HCl (Trazodone Hcl 50 Mg Tablet) 150 mg PO BEDTIME [facility] Last Admin: 10/06/22 21:13 Dose: 150 mg Allergies Allergies Allergy/AdvReac Type Severity Reaction Status Date / Time amoxicillin Allergy Unknown Uncoded 04/30/18 00:00 Pt states no food allergy Allergy Unknown Uncoded 04/30/18 00:00 Assessment & Plan Assessment & Plan (1) Bipolar affective disorder, manic, severe, with psychotic behavior: Status: Acute Code(s): F31.2 - Bipolar disorder, current episode manic severe with psychotic features Plan presents with manic episode and comorbid psychotic symptoms. Reports adherence with medications. Unclear stressors. No substance issues. Given patient history and willingness around medication strategies, will discontinue Invega, maintain Depakote at 500 mg morning and 1000 mg at bedtime, maintain perphenazine. Start Seroquel 100 mg at bedtime and gradually increased to minimum dose of 300 mg. Will also have 50 mg as needed. We will get Depakote level after the weekend. 10/05/2022: Increase Seroquel to 200 mg 10/06/22: Continue plan of care. TDN filed for 10/08. 10/07/22: Tegretol 100 mg bid Dulcolax prn constipation Mag Ox 400 mg daily Pt has retracted TDN. Patient educated on: medication risk/benefits and therapeutic strategies Informed Consent: understands and further education needed Reason for continued inpatient stay Substantial Risk for: rapid decompensation Time Spent With Patient Time: Total time managing care of this patient today ____ minutes.
[2022-10-07] MEDS: carBAMazepine 100 MG TAB.CHEW PO (20:10)
[2022-10-07] MEDS: QUEtiapine Fumarate 300 MG TABLET PO (20:10)
[2022-10-07] MEDS: traZODone HCL 50 MG TABLET 150 MG PO (20:11)
[2022-10-07] MEDS: LORazepam 0.5 MG TABLET PO (20:11)
[2022-10-07] MEDS: Divalproex Sodium 500 MG TABLET.DR 1000 MG PO (20:11)
[2022-10-07] MEDS: Atorvastatin Calcium 40 MG TABLET PO (20:11)
[2022-10-08 06:00] VITALS: BP 109/60; PULSE 82; RESP 16; TEMP 36.1; O2SAT 95
--- NOTE | 2022-10-08 09:00 | ECG_ITS ---
Test Reason : Routine Blood Pressure : / mmHG Vent. Rate : 090 BPM Atrial Rate : 090 BPM P-R Int : 178 ms QRS Dur : 082 ms QT Int : 354 ms P-R-T Axes : 054 025 029 degrees QTc Int : 433 ms Normal sinus rhythm Normal ECG No previous ECGs available Referred By: Danielle Oneill Electronically Signed By:GIANNA MENENDEZ
[2022-10-08] MEDS: Benztropine Mesylate 1 MG TABLET PO ×2 (09:32→20:12)
[2022-10-08] MEDS: amLODIPine Besylate 2.5 MG TABLET PO (09:32)
[2022-10-08] MEDS: Aspirin 81 MG TAB.CHEW PO (09:32)
[2022-10-08] MEDS: Thyroid,Pork 30 MG TABLET 120 MG PO (09:33)
[2022-10-08] MEDS: carBAMazepine 100 MG TAB.CHEW PO ×2 (09:33→20:12)
[2022-10-08] MEDS: Divalproex Sodium 500 MG TABLET.DR PO (09:33)
[2022-10-08] MEDS: glipiZIDE XL 2.5 MG TAB.ER.24 PO (09:33)
[2022-10-08] MEDS: Furosemide 20 MG TABLET PO (09:33)
[2022-10-08] MEDS: Magnesium Oxide 400 MG TABLET PO (09:33)
[2022-10-08] MEDS: Metoprolol Succinate ER 25 MG TAB.ER.24H PO (09:33)
[2022-10-08 14:49] LABS: Glucose, Whole Blood 111 mg/dL (60-115)
[2022-10-08 16:47] VITALS: BP 123/58; PULSE 80; TEMP 36.4
--- NOTE | 2022-10-08 18:35 | P.PNPSI_ITS ---
Subjective Subjective Date of Service: 10/08/22 Reason For Visit: Psychosis/ becca Subjective Notes: Conditional Voluntary Healthcare Proxy: No Guardianship: No Medical Problems Affecting Mental Status: No Interim History: Review of Tegretol titration- 200 mg weekly in divided doses with Depakote tapering which will take a few weeks. Discussed CBC every 2 weeks for 2 months with thyroid, kidney, liver function tests every 3-6 months to begin with. Review of SE of hyponatremia. Pt hoping to discharge early next week to spend time with family who are traveling in out of town. Discussed aftercare. Pt considering a return to [facility]. Medication Compliance: Yes Side effects from medications: Yes (some sedation today) Attending Groups: Yes Review of Systems Acute medical concerns: No Medical Review of Systems: unchanged Mental Status Exam Mental Status Exam Patient Appearance: Appropriate Patient Orientation: Person, Place, Time and Situation Level of Consciousness: Alert Patient Behavior: Talkative, Cooperative and Good Eye Contact Mood Description: Appropriate and Anxious Affect Description: Anxious Patient Cognition Impaired: No Ability to Follow Directions: Good Speech Pattern: Spontaneous Speech Memory Description: Intact Hallucinations: None Delusions: Not Present Perceptual Disturbances: Depersonalization and Derealization Thought Process: Racing (mild), Distracted and Rumination Thought Content: positive for Racing (mild) and positive for Circumstantial Depressive Symptoms: Increased Anxiety and Difficulty Concentrating Judgement: Fair Diagnostics Vital Signs (24Hr): Vital Signs - 24 hr 10/07/22 19:03 10/08/22 06:00 10/08/22 16:47 Temperature 97.6 F 97.0 F 97.6 F Pulse Rate 90 82 80 Respiratory Rate 16 Blood Pressure 129/62 109/60 123/58 L Pulse Oximetry 93 95 Oxygen Delivery Method Room Air Room Air BMI result Body Mass Index 39.9 Labs Labs: Laboratory Results - last 48 hr 10/08/22 14:44 POC Glucose 111 Medications Medications Current Medications Acetaminophen (Acetaminophen 325 Mg Tablet) 650 mg PO Q6H PRN PRN Reason: Headache/Pain Mild Scale (1-3) Al Hydroxide/Mg Hydroxide (Magnesium Hydrox/Alum Hydrox 30 Ml Oral.Susp) 30 ml PO Q6H PRN PRN Reason: Heartburn/Nausea Last Admin: 10/07/22 03:02 Dose: 30 ml Amlodipine Besylate (Amlodipine Besylate 2.5 Mg Tablet) 2.5 mg PO DAILY [facility]; Protocol Last Admin: 10/08/22 09:32 Dose: 2.5 mg Aspirin (Aspirin 81 Mg Tab.Chew) 81 mg PO DAILY [facility] Last Admin: 10/08/22 09:32 Dose: 81 mg Atorvastatin Calcium (Atorvastatin Calcium 40 Mg Tablet) 40 mg PO BEDTIME [facility] Last Admin: 10/07/22 20:11 Dose: 40 mg Benztropine Mesylate (Benztropine Mesylate 1 Mg Tablet) 1 mg PO BID [facility] Last Admin: 10/08/22 09:32 Dose: 1 mg Bisacodyl (Bisacodyl 5 Mg Tablet.) 10 mg PO DAILY PRN PRN Reason: Constipation Carbamazepine (Carbamazepine 100 Mg Tab.Chew) 100 mg PO BID [facility] Last Admin: 10/08/22 09:33 Dose: 100 mg Divalproex Sodium (Divalproex Sodium 500 Mg Tablet.) 500 mg PO DAILY [facility] Last Admin: 10/08/22 09:33 Dose: 500 mg Divalproex Sodium (Divalproex Sodium 500 Mg Tablet.) 1,000 mg PO BEDTIME [facility] Last Admin: 10/07/22 20:11 Dose: 1,000 mg Furosemide (Furosemide 20 Mg Tablet) 20 mg PO DAILY [facility]; Protocol Last Admin: 10/08/22 09:33 Dose: 20 mg Glipizide (Glipizide Xl 2.5 Mg Tab.Er.24) 2.5 mg PO DAILY [facility] Last Admin: 10/08/22 09:33 Dose: 2.5 mg Hydroxyzine HCl (Hydroxyzine Hcl 25 Mg Tablet) 25 mg PO Q6H PRN PRN Reason: Anxiety Last Admin: 10/05/22 22:00 Dose: 25 mg Lorazepam (Lorazepam 0.5 Mg Tablet) 0.5 mg PO BEDTIME [facility] Last Admin: 10/07/22 20:11 Dose: 0.5 mg Magnesium Hydroxide (Milk Of Magnesia 30 Ml Oral.Susp) 30 ml PO DAILY PRN PRN Reason: Constipation Last Admin: 10/07/22 11:14 Dose: 30 ml Magnesium Oxide (Magnesium Oxide 400 Mg Tablet) 400 mg PO DAILY [facility] Last Admin: 10/08/22 09:33 Dose: 400 mg Metoprolol Succinate (Metoprolol Succinate Er 25 Mg Tab.Er.24h) 25 mg PO DAILY [facility]; Protocol Last Admin: 10/08/22 09:33 Dose: 25 mg Nicotine (Nicotine 21 Mg Patch.Td24) 21 mg TRANSDERMA DAILY PRN PRN Reason: smoking cessation Nicotine Polacrilex (Nicotine Polacrilex 2 Mg Gum) 4 mg BUCCAL Q2H PRN PRN Reason: Nicotine Cravings Polyethylene Glycol (Polyethylene Glycol 3350 17 Gm Powd.Pack) 17 gm PO DAILY PRN PRN Reason: constipation Last Admin: 10/07/22 08:46 Dose: 17 gm Quetiapine Fumarate (Quetiapine Fumarate 50 Mg Tablet) 50 mg PO TID PRN PRN Reason: agitation, manic symptoms Quetiapine Fumarate (Quetiapine Fumarate 300 Mg Tablet) 300 mg PO BEDTIME [facility] Last Admin: 10/07/22 20:10 Dose: 300 mg Thyroid (Thyroid,Pork 30 Mg Tablet) 120 mg PO DAILY [facility] Last Admin: 10/08/22 09:33 Dose: 120 mg Trazodone HCl (Trazodone Hcl 50 Mg Tablet) 150 mg PO BEDTIME [facility] Last Admin: 10/07/22 20:11 Dose: 150 mg Allergies Allergies Allergy/AdvReac Type Severity Reaction Status Date / Time amoxicillin Allergy Unknown Uncoded 04/30/18 00:00 Pt states no food allergy Allergy Unknown Uncoded 04/30/18 00:00 Assessment & Plan Assessment & Plan (1) Bipolar affective disorder, manic, severe, with psychotic behavior: Status: Acute Code(s): F31.2 - Bipolar disorder, current episode manic severe with psychotic features Plan presents with manic episode and comorbid psychotic symptoms. Reports adherence with medications. Unclear stressors. No substance issues. Given patient history and willingness around medication strategies, will discontinue Invega, maintain Depakote at 500 mg morning and 1000 mg at bedtime, maintain perphenazine. Start Seroquel 100 mg at bedtime and gradually increased to minimum dose of 300 mg. Will also have 50 mg as needed. We will get Depakote level after the weekend. 10/05/2022: Increase Seroquel to 200 mg 10/06/22: Continue plan of care. TDN filed for 10/08. 10/07/22: Tegretol 100 mg bid Dulcolax prn constipation Mag Ox 400 mg daily Pt has retracted TDN. 10/08/22 Decrease Depakote to 250 mg a.m. Labs 10/12/22. Patient educated on: medication risk/benefits Informed Consent: understands Reason for continued inpatient stay Substantial Risk for: rapid decompensation Time Spent With Patient Time: Total time managing care of this patient today ____ minutes.
[2022-10-08] MEDS: QUEtiapine Fumarate 300 MG TABLET PO (20:12)
[2022-10-08] MEDS: Atorvastatin Calcium 40 MG TABLET PO (20:12)
[2022-10-08] MEDS: LORazepam 0.5 MG TABLET PO (20:12)
[2022-10-08] MEDS: Divalproex Sodium 500 MG TABLET.DR 1000 MG PO (20:12)
[2022-10-08] MEDS: traZODone HCL 50 MG TABLET 150 MG PO (20:12)
[2022-10-09 06:00] VITALS: BP 102/51; PULSE 77; RESP 18
[2022-10-09 07:00] VITALS: BMI 41.7
[2022-10-09] MEDS: Magnesium Oxide 400 MG TABLET PO (08:24)
[2022-10-09] MEDS: Metoprolol Succinate ER 25 MG TAB.ER.24H PO (08:24)
[2022-10-09] MEDS: glipiZIDE XL 2.5 MG TAB.ER.24 PO (08:24)
[2022-10-09] MEDS: Thyroid,Pork 30 MG TABLET 120 MG PO (08:24)
[2022-10-09] MEDS: carBAMazepine 100 MG TAB.CHEW PO ×2 (08:24→20:15)
[2022-10-09] MEDS: Furosemide 20 MG TABLET PO (08:24)
[2022-10-09] MEDS: Benztropine Mesylate 1 MG TABLET PO ×2 (08:24→20:15)
[2022-10-09] MEDS: Aspirin 81 MG TAB.CHEW PO (08:24)
[2022-10-09] MEDS: amLODIPine Besylate 2.5 MG TABLET PO (08:25)
[2022-10-09 08:27] VITALS: BP 106/66; PULSE 85; RESP 16
[2022-10-09] MEDS: Milk of Magnesia 30 ML ORAL.SUSP PO (09:56)
[2022-10-09 18:00] VITALS: BP 135/68; PULSE 85; RESP 16; TEMP 36.1; O2SAT 98
[2022-10-09] MEDS: traZODone HCL 50 MG TABLET 150 MG PO (20:14)
[2022-10-09] MEDS: QUEtiapine Fumarate 300 MG TABLET PO (20:14)
[2022-10-09] MEDS: Atorvastatin Calcium 40 MG TABLET PO (20:14)
[2022-10-09] MEDS: LORazepam 0.5 MG TABLET PO (20:14)
[2022-10-09] MEDS: polyethylene glycoL 3350 17 GM POWD.PACK PO (20:49)
--- NOTE | 2022-10-09 21:17 | HO.PSYCHPN ---
Subjective Subjective Date of Service: 10/09/22 Reason For Visit: Psychosis/ becca Subjective Notes: Conditional Voluntary and 3 Day Healthcare Proxy: No Guardianship: No Medical Problems Affecting Mental Status: No Interim History: Plans discharge on 10/14/22. Accepts [facility] application. Reports she was up at 2am- a twilight sleep . Refused Depakote this a.m. Believes she is on too much medication so she is titrating independently When I sleep I feel better . Discussed that sedation with this cross-titration may be experienced Discussed family relationships with us-she prefers to not have them involved, and will share information with them herself as she finds appropriate. Will continue slowed cross taper of Tegretol/Depakote. Medication Compliance: Yes Side effects from medications: No Attending Groups: Yes Review of Systems Acute medical concerns: No Medical Review of Systems: unchanged Mental Status Exam Mental Status Exam Patient Appearance: Appropriate Patient Orientation: Person, Place, Time and Situation Level of Consciousness: Alert Patient Behavior: Talkative, Cooperative and Good Eye Contact Mood Description: Appropriate and Anxious Affect Description: Anxious Patient Cognition Impaired: No Ability to Follow Directions: Good Speech Pattern: Spontaneous Speech Memory Description: Intact Hallucinations: None Delusions: Not Present Perceptual Disturbances: Depersonalization and Derealization Thought Process: Racing (mild), Distracted and Rumination Thought Content: positive for Racing (mild) and positive for Circumstantial Depressive Symptoms: Increased Anxiety and Difficulty Concentrating Judgement: Fair Diagnostics Vital Signs (24Hr): Vital Signs - 24 hr 10/09/22 06:00 10/09/22 08:27 10/09/22 18:00 Temperature 97 F Pulse Rate 77 85 85 Respiratory Rate 18 16 16 Blood Pressure 102/51 L 106/66 135/68 Pulse Oximetry 98 Oxygen Delivery Method Room Air Room Air Room Air BMI result Body Mass Index 41.7 Labs Labs: Laboratory Results - last 48 hr 10/08/22 14:44 POC Glucose 111 Medications Medications Current Medications Acetaminophen (Acetaminophen 325 Mg Tablet) 650 mg PO Q6H PRN PRN Reason: Headache/Pain Mild Scale (1-3) Al Hydroxide/Mg Hydroxide (Magnesium Hydrox/Alum Hydrox 30 Ml Oral.Susp) 30 ml PO Q6H PRN PRN Reason: Heartburn/Nausea Last Admin: 10/07/22 03:02 Dose: 30 ml Amlodipine Besylate (Amlodipine Besylate 2.5 Mg Tablet) 2.5 mg PO DAILY [facility]; Protocol Last Admin: 10/09/22 08:25 Dose: 2.5 mg Aspirin (Aspirin 81 Mg Tab.Chew) 81 mg PO DAILY [facility] Last Admin: 10/09/22 08:24 Dose: 81 mg Atorvastatin Calcium (Atorvastatin Calcium 40 Mg Tablet) 40 mg PO BEDTIME [facility] Last Admin: 10/09/22 20:14 Dose: 40 mg Benztropine Mesylate (Benztropine Mesylate 1 Mg Tablet) 1 mg PO BID [facility] Last Admin: 10/09/22 20:15 Dose: 1 mg Bisacodyl (Bisacodyl 5 Mg Tablet.) 10 mg PO DAILY PRN PRN Reason: Constipation Carbamazepine (Carbamazepine 100 Mg Tab.Chew) 100 mg PO BID [facility] Last Admin: 10/09/22 20:15 Dose: 100 mg Divalproex Sodium (Divalproex Sodium 500 Mg Tablet.) 1,000 mg PO BEDTIME [facility] Last Admin: 10/08/22 20:12 Dose: 1,000 mg Divalproex Sodium (Divalproex Sodium 250 Mg Tablet.) 250 mg PO DAILY [facility] Last Admin: 10/09/22 08:26 Dose: Not Given Furosemide (Furosemide 20 Mg Tablet) 20 mg PO DAILY [facility]; Protocol Last Admin: 10/09/22 08:24 Dose: 20 mg Glipizide (Glipizide Xl 2.5 Mg Tab.Er.24) 2.5 mg PO DAILY [facility] Last Admin: 10/09/22 08:24 Dose: 2.5 mg Hydroxyzine HCl (Hydroxyzine Hcl 25 Mg Tablet) 25 mg PO Q6H PRN PRN Reason: Anxiety Last Admin: 10/05/22 22:00 Dose: 25 mg Magnesium Hydroxide (Milk Of Magnesia 30 Ml Oral.Susp) 30 ml PO DAILY PRN PRN Reason: Constipation Last Admin: 10/09/22 09:56 Dose: 30 ml Magnesium Oxide (Magnesium Oxide 400 Mg Tablet) 400 mg PO DAILY [facility] Last Admin: 10/09/22 08:24 Dose: 400 mg Metoprolol Succinate (Metoprolol Succinate Er 25 Mg Tab.Er.24h) 25 mg PO DAILY [facility]; Protocol Last Admin: 10/09/22 08:24 Dose: 25 mg Nicotine (Nicotine 21 Mg Patch.Td24) 21 mg TRANSDERMA DAILY PRN PRN Reason: smoking cessation Nicotine Polacrilex (Nicotine Polacrilex 2 Mg Gum) 4 mg BUCCAL Q2H PRN PRN Reason: Nicotine Cravings Polyethylene Glycol (Polyethylene Glycol 3350 17 Gm Powd.Pack) 17 gm PO DAILY PRN PRN Reason: constipation Last Admin: 10/09/22 20:49 Dose: 17 gm Quetiapine Fumarate (Quetiapine Fumarate 50 Mg Tablet) 50 mg PO TID PRN PRN Reason: agitation, manic symptoms Quetiapine Fumarate (Quetiapine Fumarate 300 Mg Tablet) 300 mg PO BEDTIME [facility] Last Admin: 10/09/22 20:14 Dose: 300 mg Thyroid (Thyroid,Pork 30 Mg Tablet) 120 mg PO DAILY [facility] Last Admin: 10/09/22 08:24 Dose: 120 mg Trazodone HCl (Trazodone Hcl 50 Mg Tablet) 150 mg PO BEDTIME [facility] Last Admin: 10/09/22 20:14 Dose: 150 mg Allergies Allergies Allergy/AdvReac Type Severity Reaction Status Date / Time amoxicillin Allergy Unknown Uncoded 04/30/18 00:00 Pt states no food allergy Allergy Unknown Uncoded 04/30/18 00:00 Assessment & Plan Assessment & Plan (1) Bipolar affective disorder, manic, severe, with psychotic behavior: Status: Acute Code(s): F31.2 - Bipolar disorder, current episode manic severe with psychotic features Plan presents with manic episode and comorbid psychotic symptoms. Reports adherence with medications. Unclear stressors. No substance issues. Given patient history and willingness around medication strategies, will discontinue Invega, maintain Depakote at 500 mg morning and 1000 mg at bedtime, maintain perphenazine. Start Seroquel 100 mg at bedtime and gradually increased to minimum dose of 300 mg. Will also have 50 mg as needed. We will get Depakote level after the weekend. 10/05/2022: Increase Seroquel to 200 mg 10/06/22: Continue plan of care. TDN filed for 10/08. 10/07/22: Tegretol 100 mg bid Dulcolax prn constipation Mag Ox 400 mg daily Pt has retracted TDN. 10/08/22 Decrease Depakote to 250 mg a.m. Labs 10/12/22. 10/09/22 Continue current regime and plan of care Patient educated on: medication risk/benefits Informed Consent: understands Reason for continued inpatient stay Substantial Risk for: rapid decompensation Time Spent With Patient Time: Total time managing care of this patient today ____ minutes.
--- NOTE | 2022-10-09 22:22 | PC.NURSE ---
Pt refused to take 100mg of Depakote but took 500mg instead.
[2022-10-10 06:00] VITALS: BP 100/49; PULSE 76; RESP 18
[2022-10-10] MEDS: Thyroid,Pork 30 MG TABLET 120 MG PO (08:10)
[2022-10-10] MEDS: Benztropine Mesylate 1 MG TABLET PO ×2 (08:10→21:04)
[2022-10-10] MEDS: Magnesium Oxide 400 MG TABLET PO (08:10)
[2022-10-10] MEDS: glipiZIDE XL 2.5 MG TAB.ER.24 PO (08:11)
[2022-10-10] MEDS: carBAMazepine 100 MG TAB.CHEW PO (08:11)
[2022-10-10] MEDS: Divalproex Sodium 250 MG TABLET.DR PO (08:11)
[2022-10-10] MEDS: Furosemide 20 MG TABLET PO (08:11)
[2022-10-10] MEDS: Aspirin 81 MG TAB.CHEW PO (08:11)
[2022-10-10 08:39] LABS: Glucose, Whole Blood 133 mg/dL (60-115)
[2022-10-10] MEDS: polyethylene glycoL 3350 17 GM POWD.PACK PO (09:25)
--- NOTE | 2022-10-10 18:33 | P.PNPSI_ITS ---
Subjective Subjective Date of Service: 10/10/22 Reason For Visit: Psychosis/ becca Subjective Notes: Conditional Voluntary and 3 Day Healthcare Proxy: No Guardianship: No Medical Problems Affecting Mental Status: No Interim History: Pt discussed wanting to increase titration of Tegretol, taper of Depakote. Discussed recommended parameters, 25% taper q 14 days, 200 mg increase q3 daysto ~800 mg. She would like to proceed with this plan. Sedation in a.m. reported. Pt has been refusing meds. Encouraged to work with the schedule and we will advance as quickly as she will allow. Medication Compliance: Yes Side effects from medications: Yes (sedation) Attending Groups: Yes Review of Systems Acute medical concerns: No Medical Review of Systems: unchanged Mental Status Exam Mental Status Exam Patient Appearance: Appropriate Patient Orientation: Person, Place, Time and Situation Level of Consciousness: Alert Patient Behavior: Talkative, Cooperative and Good Eye Contact Mood Description: Appropriate and Anxious Affect Description: Anxious Patient Cognition Impaired: No Ability to Follow Directions: Good Speech Pattern: Spontaneous Speech Memory Description: Intact Hallucinations: None Delusions: Not Present Perceptual Disturbances: Depersonalization and Derealization Thought Process: Racing (mild), Distracted and Rumination Thought Content: positive for Racing (mild) and positive for Circumstantial Depressive Symptoms: Increased Anxiety and Difficulty Concentrating Judgement: Fair Diagnostics Vital Signs (24Hr): Vital Signs - 24 hr 10/10/22 06:00 Pulse Rate 76 Respiratory Rate 18 Blood Pressure 100/49 L Oxygen Delivery Method Room Air BMI result Body Mass Index 41.7 Labs Labs: Laboratory Results - last 48 hr 10/10/22 08:21 POC Glucose 133 H Medications Medications Current Medications Acetaminophen (Acetaminophen 325 Mg Tablet) 650 mg PO Q6H PRN PRN Reason: Headache/Pain Mild Scale (1-3) Al Hydroxide/Mg Hydroxide (Magnesium Hydrox/Alum Hydrox 30 Ml Oral.Susp) 30 ml PO Q6H PRN PRN Reason: Heartburn/Nausea Last Admin: 10/07/22 03:02 Dose: 30 ml Amlodipine Besylate (Amlodipine Besylate 2.5 Mg Tablet) 2.5 mg PO DAILY [facility]; Protocol Last Admin: 10/10/22 08:13 Dose: Not Given Aspirin (Aspirin 81 Mg Tab.Chew) 81 mg PO DAILY [facility] [place] Last Admin: 10/10/22 08:11 Dose: 81 mg Atorvastatin Calcium (Atorvastatin Calcium 40 Mg Tablet) 40 mg PO BEDTIME [facility] Last Admin: 10/09/22 20:14 Dose: 40 mg Benztropine Mesylate (Benztropine Mesylate 1 Mg Tablet) 1 mg PO BID [facility] [place] Last Admin: 10/10/22 08:10 Dose: 1 mg Bisacodyl (Bisacodyl 5 Mg Tablet.Dr) 10 mg PO DAILY PRN PRN Reason: Constipation Carbamazepine (Carbamazepine 100 Mg Tab.Chew) 200 mg PO BID [facility] Furosemide (Furosemide 20 Mg Tablet) 20 mg PO DAILY [facility] [place]; Protocol Last Admin: 10/10/22 08:11 Dose: 20 mg Glipizide (Glipizide Xl 2.5 Mg Tab.Er.24) 2.5 mg PO DAILY [facility] Last Admin: 10/10/22 08:11 Dose: 2.5 mg Hydroxyzine HCl (Hydroxyzine Hcl 25 Mg Tablet) 25 mg PO Q6H PRN PRN Reason: Anxiety Last Admin: 10/05/22 22:00 Dose: 25 mg Magnesium Hydroxide (Milk Of Magnesia 30 Ml Oral.Susp) 30 ml PO DAILY PRN PRN Reason: Constipation Last Admin: 10/09/22 09:56 Dose: 30 ml Magnesium Oxide (Magnesium Oxide 400 Mg Tablet) 400 mg PO DAILY [facility] [place] Last Admin: 10/10/22 08:10 Dose: 400 mg Metoprolol Succinate (Metoprolol Succinate Er 25 Mg Tab.Er.24h) 25 mg PO DAILY [facility]; Protocol Last Admin: 10/10/22 08:13 Dose: Not Given Nicotine (Nicotine 21 Mg Patch.Td24) 21 mg TRANSDERMA DAILY PRN PRN Reason: smoking cessation Nicotine Polacrilex (Nicotine Polacrilex 2 Mg Gum) 4 mg BUCCAL Q2H PRN PRN Reason: Nicotine Cravings Polyethylene Glycol (Polyethylene Glycol 3350 17 Gm Powd.Pack) 17 gm PO DAILY PRN PRN Reason: constipation Last Admin: 10/10/22 09:25 Dose: 17 gm Quetiapine Fumarate (Quetiapine Fumarate 50 Mg Tablet) 50 mg PO TID PRN PRN Reason: agitation, manic symptoms Quetiapine Fumarate (Quetiapine Fumarate 300 Mg Tablet) 300 mg PO BEDTIME [facility] Last Admin: 10/09/22 20:14 Dose: 300 mg Thyroid (Thyroid,Pork 30 Mg Tablet) 120 mg PO DAILY [facility] Last Admin: 10/10/22 08:10 Dose: 120 mg Trazodone HCl (Trazodone Hcl 50 Mg Tablet) 150 mg PO BEDTIME [facility] Last Admin: 10/09/22 20:14 Dose: 150 mg Allergies Allergies Allergy/AdvReac Type Severity Reaction Status Date / Time amoxicillin Allergy Unknown Uncoded 04/30/18 00:00 Pt states no food allergy Allergy Unknown Uncoded 04/30/18 00:00 Assessment & Plan Assessment & Plan (1) Bipolar affective disorder, manic, severe, with psychotic behavior: Status: Acute Code(s): F31.2 - Bipolar disorder, current episode manic severe with psychotic features Plan presents with manic episode and comorbid psychotic symptoms. Reports adherence with medications. Unclear stressors. No substance issues. Given patient history and willingness around medication strategies, will discontinue Invega, maintain Depakote at 500 mg morning and 1000 mg at bedtime, maintain perphenazine. Start Seroquel 100 mg at bedtime and gradually increased to minimum dose of 300 mg. Will also have 50 mg as needed. We will get Depakote level after the weekend. 10/05/2022: Increase Seroquel to 200 mg 10/06/22: Continue plan of care. TDN filed for 10/08. 10/07/22: Tegretol 100 mg bid Dulcolax prn constipation Mag Ox 400 mg daily Pt has retracted TDN. 10/08/22 Decrease Depakote to 250 mg a.m. Labs 10/12/22. 10/09/22 Continue current regime and plan of care 10/10/22 Change Depakote to 500 mg bid Increase Tegretol to 200 mg bid Pt plans discharge on 10/14. Patient educated on: medication risk/benefits and therapeutic strategies Informed Consent: understands Reason for continued inpatient stay Substantial Risk for: med/psych decompensation Time Spent With Patient Time: Total time managing care of this patient today ____ minutes.
[2022-10-10 20:50] VITALS: BP 130/66; PULSE 97; RESP 18; TEMP 36.4; O2SAT 93
[2022-10-10] MEDS: Divalproex Sodium 500 MG TABLET.DR PO (21:04)
[2022-10-10] MEDS: Atorvastatin Calcium 40 MG TABLET PO (21:04)
[2022-10-10] MEDS: carBAMazepine 100 MG TAB.CHEW 200 MG PO (21:04)
[2022-10-10] MEDS: QUEtiapine Fumarate 300 MG TABLET PO (21:04)
[2022-10-10] MEDS: traZODone HCL 50 MG TABLET 150 MG PO (21:05)
[2022-10-10] MEDS: Milk of Magnesia 30 ML ORAL.SUSP PO (21:14)
[2022-10-11 08:28] LABS: Glucose, Whole Blood 105 mg/dL (60-115)
[2022-10-11] MEDS: Thyroid,Pork 30 MG TABLET 120 MG PO (08:28)
[2022-10-11 08:45] VITALS: BP 108/53; PULSE 80; RESP 18; TEMP 36.7; O2SAT 92
--- NOTE | 2022-10-11 09:00 | P.PNPSI_ITS ---
Subjective Subjective Date of Service: 10/11/22 Reason For Visit: Psychosis/ becca Interim History: met with patient; discussed with team; reviewed progress notes/chart Patient friendly on approach; says she is better and sleeping well. Patient said that she was surprised by watching the news today and saw that her jrblaqn-to-axn was arrested, for soliciting a prostitute. Rn Renal inquired and she repeated she saw this on the news today and that her mother corroborated the story. Patient explained she was transitioned to Tegretol which had worked in the past. No complaints and no requests; attending groups Mental Status Exam Mental Status Exam Narrative: Pt is alert and oriented; behavior is cooperative, friendly and calm; patient is not in distress; dressed in casual attire, adequately groomed with adequate hygiene; mood is described as better and affect congruent, bright; eye contact appropriate; Speech is normal rate, volume and prosody and not pressured; no psychomotor agitation/retardation present; thought process is organized and goal directed; Thought content is on tx, on her [id number] arrest (? not sure if this is delusional); denies any SI/HI. There is no evidence of perceptual disturbance. Patients insight and judgment impaired but improving. Diagnostics Vital Signs (24Hr): Vital Signs - 24 hr 10/10/22 20:50 10/11/22 08:45 Temperature 97.5 F 98.0 F Pulse Rate 97 80 Respiratory Rate 18 18 Blood Pressure 130/66 108/53 L Pulse Oximetry 93 92 Oxygen Delivery Method Room Air Room Air BMI result Body Mass Index 41.7 Labs Labs: Laboratory Results - last 48 hr 10/10/22 10/11/22 08:21 08:24 POC Glucose 133 H 105 Medications Medications Current Medications Acetaminophen (Acetaminophen 325 Mg Tablet) 650 mg PO Q6H PRN PRN Reason: Headache/Pain Mild Scale (1-3) Al Hydroxide/Mg Hydroxide (Magnesium Hydrox/Alum Hydrox 30 Ml Oral.Susp) 30 ml PO Q6H PRN PRN Reason: Heartburn/Nausea Last Admin: 10/07/22 03:02 Dose: 30 ml Amlodipine Besylate (Amlodipine Besylate 2.5 Mg Tablet) 2.5 mg PO DAILY [facility]; Protocol Last Admin: 10/10/22 08:13 Dose: Not Given Aspirin (Aspirin 81 Mg Tab.Chew) 81 mg PO DAILY [facility] Last Admin: 10/10/22 08:11 Dose: 81 mg Atorvastatin Calcium (Atorvastatin Calcium 40 Mg Tablet) 40 mg PO BEDTIME [facility] Last Admin: 10/10/22 21:04 Dose: 40 mg Benztropine Mesylate (Benztropine Mesylate 1 Mg Tablet) 1 mg PO BID [facility] Last Admin: 10/10/22 21:04 Dose: 1 mg Bisacodyl (Bisacodyl 5 Mg Tablet.Dr) 10 mg PO DAILY PRN PRN Reason: Constipation Carbamazepine (Carbamazepine 100 Mg Tab.Chew) 200 mg PO BID [facility] Last Admin: 10/10/22 21:04 Dose: 200 mg Divalproex Sodium (Divalproex Sodium 500 Mg Tablet.Dr) 500 mg PO BID [facility] Last Admin: 10/10/22 21:04 Dose: 500 mg Furosemide (Furosemide 20 Mg Tablet) 20 mg PO DAILY [facility]; Protocol Last Admin: 10/10/22 08:11 Dose: 20 mg Glipizide (Glipizide Xl 2.5 Mg Tab.Er.24) 2.5 mg PO DAILY [facility] Last Admin: 10/10/22 08:11 Dose: 2.5 mg Hydroxyzine HCl (Hydroxyzine Hcl 25 Mg Tablet) 25 mg PO Q6H PRN PRN Reason: Anxiety Last Admin: 10/05/22 22:00 Dose: 25 mg Magnesium Hydroxide (Milk Of Magnesia 30 Ml Oral.Susp) 30 ml PO DAILY PRN PRN Reason: Constipation Last Admin: 10/10/22 21:14 Dose: 30 ml Magnesium Oxide (Magnesium Oxide 400 Mg Tablet) 400 mg PO DAILY [facility] Last Admin: 10/10/22 08:10 Dose: 400 mg Metoprolol Succinate (Metoprolol Succinate Er 25 Mg Tab.Er.24h) 25 mg PO DAILY [facility]; Protocol Last Admin: 10/10/22 08:13 Dose: Not Given Nicotine (Nicotine 21 Mg Patch.Td24) 21 mg TRANSDERMA DAILY PRN PRN Reason: smoking cessation Nicotine Polacrilex (Nicotine Polacrilex 2 Mg Gum) 4 mg BUCCAL Q2H PRN PRN Reason: Nicotine Cravings Polyethylene Glycol (Polyethylene Glycol 3350 17 Gm Powd.Pack) 17 gm PO DAILY PRN PRN Reason: constipation Last Admin: 10/10/22 09:25 Dose: 17 gm Quetiapine Fumarate (Quetiapine Fumarate 50 Mg Tablet) 50 mg PO TID PRN PRN Reason: agitation, manic symptoms Quetiapine Fumarate (Quetiapine Fumarate 300 Mg Tablet) 300 mg PO BEDTIME [facility] Last Admin: 10/10/22 21:04 Dose: 300 mg Thyroid (Thyroid,Pork 30 Mg Tablet) 120 mg PO DAILY [facility] Last Admin: 10/11/22 08:28 Dose: 120 mg Trazodone HCl (Trazodone Hcl 50 Mg Tablet) 150 mg PO BEDTIME [facility] Last Admin: 10/10/22 21:05 Dose: 150 mg Allergies Allergies Allergy/AdvReac Type Severity Reaction Status Date / Time amoxicillin Allergy Unknown Uncoded 04/30/18 00:00 Pt states no food allergy Allergy Unknown Uncoded 04/30/18 00:00 Assessment & Plan Assessment & Plan (1) Bipolar affective disorder, manic, severe, with psychotic behavior: Status: Acute Code(s): F31.2 - Bipolar disorder, current episode manic severe with psychotic features Plan presents with manic episode and comorbid psychotic symptoms. Reports adherence with medications. Unclear stressors. No substance issues. Given patient history and willingness around medication strategies, will discontinue Invega, maintain Depakote at 500 mg morning and 1000 mg at bedtime, maintain perphena zine. Start Seroquel 100 mg at bedtime and gradually increased to minimum dose of 300 mg. Will also have 50 mg as needed. We will get Depakote level after the weekend. 10/05/2022: Increase Seroquel to 200 mg 10/06/22: Continue plan of care. TDN filed for 10/08. 10/07/22: Tegretol 100 mg bid Dulcolax prn constipation Mag Ox 400 mg daily Pt has retracted TDN. 10/08/22 Decrease Depakote to 250 mg a.m. Labs 10/12/22. 10/09/22 Continue current regime and plan of care 10/10/22 Change Depakote to 500 mg bid Increase Tegretol to 200 mg bid Pt plans discharge on 10/14. 10/11/2022 patient reports that she is doing better; sleeping well. Made a comment about seeing her brother on the news that he was arrested and investigative writer is not sure what to make of this. Otherwise staff reports appropriate behaviors, attending groups and participatory Patient educated on: diagnosis and medication risk/benefits Informed Consent: understands Reason for continued inpatient stay Substantial Risk for: med/psych decompensation Time Spent With Patient Time: Total time managing care of this patient today ____ minutes.
[2022-10-11 09:10] VITALS: BP 127/60; PULSE 89
[2022-10-11] MEDS: Benztropine Mesylate 1 MG TABLET PO ×2 (09:10→21:23)
[2022-10-11] MEDS: Metoprolol Succinate ER 25 MG TAB.ER.24H PO (09:10)
[2022-10-11] MEDS: Divalproex Sodium 500 MG TABLET.DR PO ×2 (09:10→21:23)
[2022-10-11] MEDS: Magnesium Oxide 400 MG TABLET PO (09:10)
[2022-10-11] MEDS: glipiZIDE XL 2.5 MG TAB.ER.24 PO (09:10)
[2022-10-11] MEDS: Furosemide 20 MG TABLET PO (09:10)
[2022-10-11] MEDS: carBAMazepine 100 MG TAB.CHEW 200 MG PO ×2 (09:10→21:23)
[2022-10-11] MEDS: Aspirin 81 MG TAB.CHEW PO (09:11)
[2022-10-11] MEDS: amLODIPine Besylate 2.5 MG TABLET PO (09:11)
[2022-10-11] MEDS: polyethylene glycoL 3350 17 GM POWD.PACK PO (13:03)
[2022-10-11 19:20] VITALS: BP 116/61; PULSE 135; TEMP 36.2
[2022-10-11] MEDS: traZODone HCL 50 MG TABLET 150 MG PO (21:23)
[2022-10-11] MEDS: QUEtiapine Fumarate 300 MG TABLET PO (21:23)
[2022-10-11] MEDS: Atorvastatin Calcium 40 MG TABLET PO (21:23)
[2022-10-12 07:52] LABS: MANUAL DIFF FLAG NO
[2022-10-12 07:56] LABS: Basophils Absolute Auto 0.1 X10*3/uL (0.0-0.2); Basophils Percent Auto 0.5 % (0-2); Eosinophils Absolute Auto 0.2 X10*3/uL (0.0-0.4); Eosinophils Percent Auto 2.3 % (0-4); Hematocrit 39.3 % (37.0-47.0); Hemoglobin 12.6 g/dl (12.0-16.0); Imm Gran Abs Auto 0.14 X10*3/uL (0.00-0.03); Imm Gran Pct Auto 1.3 % (0.0-0.4); Lymphocytes Absolute Auto 4.6 X10*3/uL (1.2-4.9); Lymphocytes Percent Auto 43.1 % (20-40); Mean Corpuscular HGB Conc 32.1 g/dl (31.0-35.0); Mean Corpuscular Volume 96.8 fL (80.0-98.0); Mean Platelet Volume 10.9 fL (9.4-12.3); Monocytes Absolute Auto 0.7 X10*3/uL (0.1-1.2); Monocytes Percent Auto 6.9 % (2-11); NRBC Pct Auto 0.2 /100WBC (0.0-0.2); Neutrophils Absolute Auto 4.9 x10*3/uL (2.0-8.3); Neutrophils Percent Auto 45.9 % (45-73); Platelet Count 149 X10*3/uL (160-400); Red Blood Count 4.06 X10*6/uL (4.20-5.50); Red Cell Distribution Width 14.2 % (11.0-16.0); White Blood Count 10.6 X10*3/uL (4.8-10.8)
[2022-10-12 08:00] VITALS: BP 98/59; PULSE 70; RESP 18; TEMP 36.6; O2SAT 94
[2022-10-12 08:14] LABS: Alanine Aminotransferase 12 U/L (0-31); Albumin Level 3.6 g/dL (3.5-5.0); Alkaline Phosphatase 58 U/L (39-117); Anion Gap 12 (12-20); Aspartate Amino Transferase 12 U/L (5-31); Bilirubin Total 0.4 mg/dL (0.0-1.0); Blood Urea Nitrogen 15 mg/dL (9-16); Calcium 9.7 mg/dL (8.4-10.2); Carbon Dioxide 32 mmol/L (22-29); Chloride 103 mmol/L (96-108); Creatinine Clr Calc Pharmacy 94.4; Estimated Glomerular Filt Rate > 60; Glucose Random 112 mg/dL (60-115); Potassium 4.8 mmol/L (3.3-5.1); Sodium 142 mmol/L (135-145); Total Protein 6.4 g/dL (6.5-8.0)
[2022-10-12 08:15] LABS: Carbamazepine Tegretol 8.3 mcg/mL (5.0-12.0); Valproate 44.4 mcg/mL (50.0-100.0)
[2022-10-12] MEDS: Thyroid,Pork 30 MG TABLET 120 MG PO (09:07)
[2022-10-12] MEDS: Benztropine Mesylate 1 MG TABLET PO ×2 (09:08→20:40)
[2022-10-12] MEDS: Magnesium Oxide 400 MG TABLET PO (09:08)
[2022-10-12] MEDS: amLODIPine Besylate 2.5 MG TABLET PO (09:09)
[2022-10-12] MEDS: Furosemide 20 MG TABLET PO (09:10)
[2022-10-12] MEDS: Aspirin 81 MG TAB.CHEW PO (09:10)
[2022-10-12] MEDS: Metoprolol Succinate ER 25 MG TAB.ER.24H PO (09:10)
[2022-10-12] MEDS: carBAMazepine 100 MG TAB.CHEW 200 MG PO ×2 (09:10→20:40)
[2022-10-12] MEDS: glipiZIDE XL 2.5 MG TAB.ER.24 PO (09:11)
[2022-10-12] MEDS: Divalproex Sodium 500 MG TABLET.DR PO ×2 (09:11→18:10)
--- NOTE | 2022-10-12 09:43 | P.PNPSI_ITS ---
Subjective Subjective Date of Service: 10/12/22 Reason For Visit: Psychosis/ becca Interim History: Met with Patient; discussed with team Patient reports doing much better; sleeping through the night; no manic symptoms, no AVH, discussing her illness and medications with good insight and judgment. Patient reports that she is extremely sedated in the morning the way to lunch time and thinks it is because of the Depakote, and maybe because of the Tegretol. Discussed rearranging some of the medications and patient agreed with following: -converted Tegretol IR to long acting tegretol XR and will change total dose to bedtime, since feeling sedated in AM -also switched 2nd depakote dose to 6pm, earlier in evening to help alleviate morning sedation -wants to lower trazodone to 100mg with Tegretol xr since never needed trazodone when on tegretol in past. Mental Status Exam Mental Status Exam Narrative: Pt is alert and oriented; behavior is cooperative, friendly and calm; patient is not in distress; dressed in casual attire, adequately groomed with adequate hygiene; mood is described as tired affect overall, bright; eye contact appropriate; Speech is normal rate, volume and prosody and not pressured; no psychomotor agitation/retardation present; thought process is organized and goal directed; Thought content is on tx, discharge; denies any SI/HI. There is no evidence of perceptual disturbance. Patients insight and judgment fair Diagnostics Vital Signs (24Hr): Vital Signs - 24 hr 10/11/22 19:20 Temperature 97.2 F Pulse Rate 135 H Blood Pressure 116/61 BMI result Body Mass Index 41.7 Labs 10/12/22 07:35 10/12/22 07:35 Labs: Laboratory Results - last 48 hr 10/11/22 10/12/22 10/12/22 08:24 07:35 07:35 WBC 10.6 RBC 4.06 L Hgb 12.6 Hct 39.3 MCV 96.8 MCH 31.0 MCHC 32.1 RDW 14.2 Plt Count 149 L MPV 10.9 Immature Gran % (Auto) 1.3 H Neut % (Auto) 45.9 Lymph % (Auto) 43.1 H [place] % (Auto) 6.9 Eos % (Auto) 2.3 Baso % (Auto) 0.5 Lymph # (Auto) 4.6 [place] # (Auto) 0.7 Eos # (Auto) 0.2 Baso # (Auto) 0.1 Abs Immat Gran (auto) 0.14 H Absolute Neuts (auto) 4.9 Absolute Nucleated RBC 0.020 H Nucleated RBC % (auto) 0.2 Sodium 142 Potassium 4.8 Chloride 103 Carbon Dioxide 32 H Anion Gap 12 BUN 15 Creatinine 0.73 Estim Creat Clear Calc 94.4 Estimated GFR > 60 POC Glucose 105 Random Glucose 112 Calcium 9.7 Total Bilirubin 0.4 AST 12 ALT 12 Alkaline Phosphatase 58 Total Protein 6.4 L Albumin 3.6 Valproic Acid Carbamazepine 10/12/22 07:35 WBC RBC Hgb Hct MCV MCH MCHC RDW Plt Count MPV Immature Gran % (Auto) Neut % (Auto) Lymph % (Auto) [place] % (Auto) Eos % (Auto) Baso % (Auto) Lymph # (Auto) [place] # (Auto) Eos # (Auto) Baso # (Auto) Abs Immat Gran (auto) Absolute Neuts (auto) Absolute Nucleated RBC Nucleated RBC % (auto) Sodium Potassium Chloride Carbon Dioxide Anion Gap BUN Creatinine Estim Creat Clear Calc Estimated GFR POC Glucose Random Glucose Calcium Total Bilirubin AST ALT Alkaline Phosphatase Total Protein Albumin Valproic Acid 44.4 L Carbamazepine 8.3 Medications Medications Current Medications Acetaminophen (Acetaminophen 325 Mg Tablet) 650 mg PO Q6H PRN PRN Reason: Headache/Pain Mild Scale (1-3) Al Hydroxide/Mg Hydroxide (Magnesium Hydrox/Alum Hydrox 30 Ml Oral.Susp) 30 ml PO Q6H PRN PRN Reason: Heartburn/Nausea Last Admin: 10/07/22 03:02 Dose: 30 ml Amlodipine Besylate (Amlodipine Besylate 2.5 Mg Tablet) 2.5 mg PO DAILY [facility]; Protocol Last Admin: 10/12/22 09:09 Dose: 2.5 mg Aspirin (Aspirin 81 Mg Tab.Chew) 81 mg PO DAILY [facility] Last Admin: 10/12/22 09:10 Dose: 81 mg Atorvastatin Calcium (Atorvastatin Calcium 40 Mg Tablet) 40 mg PO BEDTIME [facility] Last Admin: 10/11/22 21:23 Dose: 40 mg Benztropine Mesylate (Benztropine Mesylate 1 Mg Tablet) 1 mg PO BID [facility] Last Admin: 10/12/22 09:08 Dose: 1 mg Bisacodyl (Bisacodyl 5 Mg Tablet.Dr) 10 mg PO DAILY PRN PRN Reason: Constipation Carbamazepine (Carbamazepine 100 Mg Tab.Chew) 200 mg PO BID [facility] Last Admin: 10/12/22 09:10 Dose: 200 mg Divalproex Sodium (Divalproex Sodium 500 Mg Tablet.Dr) 500 mg PO BID [facility] Last Admin: 10/12/22 09:11 Dose: 500 mg Furosemide (Furosemide 20 Mg Tablet) 20 mg PO DAILY [facility]; Protocol Last Admin: 10/12/22 09:10 Dose: 20 mg Glipizide (Glipizide Xl 2.5 Mg Tab.Er.24) 2.5 mg PO DAILY [facility] Last Admin: 10/12/22 09:11 Dose: 2.5 mg Hydroxyzine HCl (Hydroxyzine Hcl 25 Mg Tablet) 25 mg PO Q6H PRN PRN Reason: Anxiety Last Admin: 10/05/22 22:00 Dose: 25 mg Magnesium Hydroxide (Milk Of Magnesia 30 Ml Oral.Susp) 30 ml PO DAILY PRN PRN Reason: Constipation Last Admin: 10/10/22 21:14 Dose: 30 ml Magnesium Oxide (Magnesium Oxide 400 Mg Tablet) 400 mg PO DAILY [facility] Last Admin: 10/12/22 09:08 Dose: 400 mg Metoprolol Succinate (Metoprolol Succinate Er 25 Mg Tab.Er.24h) 25 mg PO DAILY [facility]; Protocol Last Admin: 10/12/22 09:10 Dose: 25 mg Nicotine (Nicotine 21 Mg Patch.Td24) 21 mg TRANSDERMA DAILY PRN PRN Reason: smoking cessation Nicotine Polacrilex (Nicotine Polacrilex 2 Mg Gum) 4 mg BUCCAL Q2H PRN PRN Reason: Nicotine Cravings Polyethylene Glycol (Polyethylene Glycol 3350 17 Gm Powd.Pack) 17 gm PO DAILY PRN PRN Reason: constipation Last Admin: 10/11/22 13:03 Dose: 17 gm Quetiapine Fumarate (Quetiapine Fumarate 50 Mg Tablet) 50 mg PO TID PRN PRN Reason: agitation, manic symptoms Quetiapine Fumarate (Quetiapine Fumarate 300 Mg Tablet) 300 mg PO BEDTIME [facility] Last Admin: 10/11/22 21:23 Dose: 300 mg Thyroid (Thyroid,Pork 30 Mg Tablet) 120 mg PO DAILY [facility] Last Admin: 10/12/22 09:07 Dose: 120 mg Trazodone HCl (Trazodone Hcl 50 Mg Tablet) 150 mg PO BEDTIME [facility] Last Admin: 10/11/22 21:23 Dose: 150 mg Allergies Allergies Allergy/AdvReac Type Severity Reaction Status Date / Time amoxicillin Allergy Unknown Uncoded 04/30/18 00:00 Pt states no food allergy Allergy Unknown Uncoded 04/30/18 00:00 Assessment & Plan Assessment & Plan (1) Bipolar affective disorder, manic, severe, with psychotic behavior: Status: Acute Code(s): F31.2 - Bipolar disorder, current episode manic severe with psychotic features Plan presents with manic episode and comorbid psychotic symptoms. Reports adherence with medications. Unclear stressors. No substance issues. Given patient history and willingness around medication strategies, will discontinue Invega, maintain Depakote at 500 mg morning and 1000 mg at bedtime, maintain perphenazine. Start Seroquel 100 mg at bedtime and gradually increased to minimum dose of 300 mg. Will also have 50 mg as needed. We will get Depakote level after the weekend. 10/05/2022: Increase Seroquel to 200 mg 10/06/22: Continue plan of care. TDN filed for 10/08. 10/07/22: Tegretol 100 mg bid Dulcolax prn constipation Mag Ox 400 mg daily Pt has retracted TDN. 10/08/22 Decrease Depakote to 250 mg a.m. Labs 10/12/22. 10/09/22 Continue current regime and plan of care 10/10/22 Change Depakote to 500 mg bid Increase Tegretol to 200 mg bid Pt plans discharge on 10/14. 10/11/2022 patient reports that she is doing better; sleeping well. Made a comment about seeing her brother on the news that he was arrested and insurance underwriter sales is not sure what to make of this. Otherwise staff reports appropriate behaviors, attending groups and participatory 10/12 Patient reports doing much better; sleeping through the night; no manic symptoms, no AVH, discussing her illness and medications with good insight and judgment. Patient reports that she is extremely sedated in the morning the way to lunch time and thinks it is because of the Depakote, and maybe because of the Tegretol. Discussed rearranging some of the medications and patient agreed with following: -converted Tegretol IR to long acting tegretol XR and will change total dose to bedtime, since feeling sedated in AM -also switched 2nd depakote dose to 6pm, earlier in evening to help alleviate morning sedation -wants to lower trazodone to 100mg with Tegretol xr since never needed trazodone when on tegretol in past. Patient educated on: diagnosis and medication risk/benefits Informed Consent: understands Reason for continued inpatient stay Substantial Risk for: stable for discharge Time Spent With Patient Time: Total time managing care of this patient today ____ minutes.
--- NOTE | 2022-10-12 17:19 | PC.NURSE ---
Patient is complaining of being sleepy, refused Depakote DR 500mg at 1800.
--- NOTE | 2022-10-12 18:24 | PC.NURSE ---
I Notified Dr. Orellana of patients refusal of medication and reason. He stated that he did not tell her that he was reducing the dose, the taper is for 500mg BID but he put the dose earlier in the evening to help prevent sedation the following morning and the patient agreed to take the medication. MD updated.
[2022-10-12 19:45] VITALS: BP 122/58; PULSE 86; RESP 18; TEMP 36.2; O2SAT 92
[2022-10-12] MEDS: polyethylene glycoL 3350 17 GM POWD.PACK PO (20:40)
[2022-10-12] MEDS: Atorvastatin Calcium 40 MG TABLET PO (20:40)
[2022-10-12] MEDS: traZODone HCL 50 MG TABLET 150 MG PO (20:40)
[2022-10-12] MEDS: QUEtiapine Fumarate 300 MG TABLET PO (20:40)
[2022-10-13] MEDS: Thyroid,Pork 30 MG TABLET 120 MG PO (06:48)
[2022-10-13 08:16] LABS: Glucose, Whole Blood 114 mg/dL (60-115)
[2022-10-13 09:10] VITALS: BP 115/58; PULSE 79; RESP 16; TEMP 36.4
[2022-10-13] MEDS: Benztropine Mesylate 1 MG TABLET PO ×2 (09:21→21:03)
[2022-10-13] MEDS: glipiZIDE XL 2.5 MG TAB.ER.24 PO (09:21)
[2022-10-13] MEDS: Metoprolol Succinate ER 25 MG TAB.ER.24H PO (09:21)
[2022-10-13] MEDS: Furosemide 20 MG TABLET PO (09:21)
[2022-10-13] MEDS: Aspirin 81 MG TAB.CHEW PO (09:21)
[2022-10-13] MEDS: Magnesium Oxide 400 MG TABLET PO (09:21)
[2022-10-13] MEDS: amLODIPine Besylate 2.5 MG TABLET PO (09:21)
--- NOTE | 2022-10-13 10:28 | P.PNPSI_ITS ---
Subjective Subjective Date of Service: 10/13/22 Reason For Visit: Psychosis/ becca Interim History: Met with Patient; discussed with team Not tired this morning with moving tegretol to bedtime; she did not take depakote yet wanting to talk it through; production underwriter read through [facility] notes that said Depakote back to 500mg bid for now, so pt agreed. feels some twitches in her hands that last for an hour, which she says is new otherwise feels good Mental Status Exam Mental Status Exam Narrative: Pt is alert and oriented; behavior is cooperative, friendly and calm; patient is not in distress; dressed in casual attire, adequately groomed with adequate hygiene; mood is described as fine affect overall, bright; eye contact appropriate; Speech is normal rate, volume and prosody and not pressured; no psychomotor agitation/retardation present; thought process is organized and goal directed; Thought content is on tx, discharge; denies any SI/HI. There is no evidence of perceptual disturbance. Patients insight and judgment fair Diagnostics Vital Signs (24Hr): Vital Signs - 24 hr 10/12/22 19:45 10/13/22 09:10 Temperature 97.1 F 97.5 F Pulse Rate 86 79 Respiratory Rate 18 16 Blood Pressure 122/58 L 115/58 L Pulse Oximetry 92 Oxygen Delivery Method Room Air Room Air BMI result Body Mass Index 41.7 Labs 10/12/22 07:35 10/12/22 07:35 Labs: Laboratory Results - last 48 hr 10/12/22 10/12/22 10/12/22 07:35 07:35 07:35 WBC 10.6 RBC 4.06 L Hgb 12.6 Hct 39.3 MCV 96.8 MCH 31.0 MCHC 32.1 RDW 14.2 Plt Count 149 L MPV 10.9 Immature Gran % (Auto) 1.3 H Neut % (Auto) 45.9 Lymph % (Auto) 43.1 H [place] % (Auto) 6.9 Eos % (Auto) 2.3 Baso % (Auto) 0.5 Lymph # (Auto) 4.6 [place] # (Auto) 0.7 Eos # (Auto) 0.2 Baso # (Auto) 0.1 Abs Immat Gran (auto) 0.14 H Absolute Neuts (auto) 4.9 Absolute Nucleated RBC 0.020 H Nucleated RBC % (auto) 0.2 Sodium 142 Potassium 4.8 Chloride 103 Carbon Dioxide 32 H Anion Gap 12 BUN 15 Creatinine 0.73 Estim Creat Clear Calc 94.4 Estimated GFR > 60 POC Glucose Random Glucose 112 Calcium 9.7 Total Bilirubin 0.4 AST 12 ALT 12 Alkaline Phosphatase 58 Total Protein 6.4 L Albumin 3.6 Valproic Acid 44.4 L Carbamazepine 8.3 10/13/22 08:12 WBC RBC Hgb Hct MCV MCH MCHC RDW Plt Count MPV Immature Gran % (Auto) Neut % (Auto) Lymph % (Auto) [place] % (Auto) Eos % (Auto) Baso % (Auto) Lymph # (Auto) [place] # (Auto) Eos # (Auto) Baso # (Auto) Abs Immat Gran (auto) Absolute Neuts (auto) Absolute Nucleated RBC Nucleated RBC % (auto) Sodium Potassium Chloride Carbon Dioxide Anion Gap BUN Creatinine Estim Creat Clear Calc Estimated GFR POC Glucose 114 Random Glucose Calcium Total Bilirubin AST ALT Alkaline Phosphatase Total Protein Albumin Valproic Acid Carbamazepine Medications Medications Current Medications Acetaminophen (Acetaminophen 325 Mg Tablet) 650 mg PO Q6H PRN PRN Reason: Headache/Pain Mild Scale (1-3) Al Hydroxide/Mg Hydroxide (Magnesium Hydrox/Alum Hydrox 30 Ml Oral.Susp) 30 ml PO Q6H PRN PRN Reason: Heartburn/Nausea Last Admin: 10/07/22 03:02 Dose: 30 ml Amlodipine Besylate (Amlodipine Besylate 2.5 Mg Tablet) 2.5 mg PO DAILY [facility]; Protocol Last Admin: 10/13/22 09:21 Dose: 2.5 mg Aspirin (Aspirin 81 Mg Tab.Chew) 81 mg PO DAILY [facility] Last Admin: 10/13/22 09:21 Dose: 81 mg Atorvastatin Calcium (Atorvastatin Calcium 40 Mg Tablet) 40 mg PO BEDTIME [facility] Last Admin: 10/12/22 20:40 Dose: 40 mg Benztropine Mesylate (Benztropine Mesylate 1 Mg Tablet) 1 mg PO BID [facility] Last Admin: 10/13/22 09:21 Dose: 1 mg Bisacodyl (Bisacodyl 5 Mg Tablet.) 10 mg PO DAILY PRN PRN Reason: Constipation Carbamazepine (Carbamazepine Er 200 Mg Tab.Er.12h) 400 mg PO BEDTIME [facility] Divalproex Sodium (Divalproex Sodium 500 Mg Tablet.) 500 mg PO BID@0900,1800 [facility] Last Admin: 10/12/22 18:10 Dose: 500 mg Furosemide (Furosemide 20 Mg Tablet) 20 mg PO DAILY [facility]; Protocol Last Admin: 10/13/22 09:21 Dose: 20 mg Glipizide (Glipizide Xl 2.5 Mg Tab.Er.24) 2.5 mg PO DAILY [facility] Last Admin: 10/13/22 09:21 Dose: 2.5 mg Hydroxyzine HCl (Hydroxyzine Hcl 25 Mg Tablet) 25 mg PO Q6H PRN PRN Reason: Anxiety Last Admin: 10/05/22 22:00 Dose: 25 mg Magnesium Hydroxide (Milk Of Magnesia 30 Ml Oral.Susp) 30 ml PO DAILY PRN PRN Reason: Constipation Last Admin: 10/10/22 21:14 Dose: 30 ml Magnesium Oxide (Magnesium Oxide 400 Mg Tablet) 400 mg PO DAILY [facility] Last Admin: 10/13/22 09:21 Dose: 400 mg Metoprolol Succinate (Metoprolol Succinate Er 25 Mg Tab.Er.24h) 25 mg PO DAILY [facility]; Protocol Last Admin: 10/13/22 09:21 Dose: 25 mg Nicotine (Nicotine 21 Mg Patch.Td24) 21 mg TRANSDERMA DAILY PRN PRN Reason: smoking cessation Nicotine Polacrilex (Nicotine Polacrilex 2 Mg Gum) 4 mg BUCCAL Q2H PRN PRN Reason: Nicotine Cravings Polyethylene Glycol (Polyethylene Glycol 3350 17 Gm Powd.Pack) 17 gm PO DAILY PRN PRN Reason: constipation Last Admin: 10/12/22 20:40 Dose: 17 gm Quetiapine Fumarate (Quetiapine Fumarate 50 Mg Tablet) 50 mg PO TID PRN PRN Reason: agitation, manic symptoms Quetiapine Fumarate (Quetiapine Fumarate 300 Mg Tablet) 300 mg PO BEDTIME [facility] Last Admin: 10/12/22 20:40 Dose: 300 mg Thyroid (Thyroid,Pork 30 Mg Tablet) 120 mg PO DAILY@0800 [facility] Last Admin: 10/13/22 06:48 Dose: 120 mg Trazodone HCl (Trazodone Hcl 100 Mg Tablet) 100 mg PO BEDTIME [facility] Trazodone HCl (Trazodone Hcl 50 Mg Tablet) 50 mg PO BEDTIME [facility] PRN PRN Reason: for continued insomnia Allergies Allergies Allergy/AdvReac Type Severity Reaction Status Date / Time amoxicillin Allergy Unknown Uncoded 04/30/18 00:00 Pt states no food allergy Allergy Unknown Uncoded 04/30/18 00:00 Assessment & Plan Assessment & Plan (1) Bipolar affective disorder, manic, severe, with psychotic behavior: Status: Acute Code(s): F31.2 - Bipolar disorder, current episode manic severe with psychotic features Plan presents with manic episode and comorbid psychotic symptoms. Reports adherence with medications. Unclear stressors. No substance issues. Given patient history and willingness around medication strategies, will discontinue Invega, maintain Depakote at 500 mg morning and 1000 mg at bedtime, maintain perphenazi ne. Start Seroquel 100 mg at bedtime and gradually increased to minimum dose of 300 mg. Will also have 50 mg as needed. We will get Depakote level after the weekend. 10/05/2022: Increase Seroquel to 200 mg 10/06/22: Continue plan of care. TDN filed for 10/08. 10/07/22: Tegretol 100 mg bid Dulcolax prn constipation Mag Ox 400 mg daily Pt has retracted TDN. 10/08/22 Decrease Depakote to 250 mg a.m. Labs 10/12/22. 10/09/22 Continue current regime and plan of care 10/10/22 Change Depakote to 500 mg bid Increase Tegretol to 200 mg bid Pt plans discharge on 10/14. 10/11/2022 patient reports that she is doing better; sleeping well. Made a com ment about seeing her brother on the news that he was arrested and production underwriter is not sure what to make of this. Otherwise staff reports appropriate behaviors, attending groups and participatory 10/12 Patient reports doing much better; sleeping through the night; no manic symptoms, no AVH, discussing her illness and medications with good insight and judgment. Patient reports that she is extremely sedated in the morning the way to lunch time and thinks it is because of the Depakote, and maybe because of the Tegretol. Discussed rearranging some of the medications and patient agreed with following: -converted Tegretol IR to long acting tegretol XR and will change total dose to bedtime, since feeling sedated in AM -also switched 2nd depakote dose to 6pm, earlier in evening to help alleviate morning sedation -wants to lower trazodone to 100mg with Tegretol xr since never needed trazodone when on tegretol in past. 10/13 pt agrees with tx plan; expecxting to dc on Thursday but she will discuss wit h primary team; otherwise feels good, ready to go -discussed labs which are WNL and as expected Patient educated on: diagnosis and medication risk/benefits Informed Consent: understands Reason for continued inpatient stay Substantial Risk for: stable for discharge Time Spent With Patient Time: Total time managing care of this patient today ____ minutes.
[2022-10-13] MEDS: Divalproex Sodium 500 MG TABLET.DR PO ×2 (12:58→17:56)
[2022-10-13 18:00] VITALS: BP 137/64; PULSE 85; RESP 18; TEMP 36.7; O2SAT 95
[2022-10-13] MEDS: carBAMazepine ER 200 MG TAB.ER.12H 400 MG PO (21:03)
[2022-10-13] MEDS: traZODone HCL 100 MG TABLET PO (21:03)
[2022-10-13] MEDS: Atorvastatin Calcium 40 MG TABLET PO (21:03)
[2022-10-13] MEDS: QUEtiapine Fumarate 300 MG TABLET PO (21:03)
[2022-10-14] MEDS: Thyroid,Pork 30 MG TABLET 120 MG PO (06:45)
[2022-10-14 08:05] VITALS: BP 102/49; PULSE 71; RESP 16; TEMP 36.2; O2SAT 93
[2022-10-14] MEDS: Aspirin 81 MG TAB.CHEW PO (08:13)
[2022-10-14] MEDS: Magnesium Oxide 400 MG TABLET PO (08:13)
[2022-10-14] MEDS: Benztropine Mesylate 1 MG TABLET PO (08:13)
[2022-10-14] MEDS: glipiZIDE XL 2.5 MG TAB.ER.24 PO (08:14)
[2022-10-14 08:45] LABS: Glucose, Whole Blood 117 mg/dL (60-115)
[2022-10-14] MEDS: Furosemide 20 MG TABLET PO (10:13)
[2022-10-14] MEDS: Divalproex Sodium 500 MG TABLET.DR PO (10:13)
[2022-10-14 10:14] VITALS: BP 129/55; PULSE 85
--- NOTE | 2022-10-14 16:33 | PM.PSYDC ---
DS: Providers Provider Date of Service: 10/14/22 Date of admission: 10/04/22 00:09 Date of discharge: 10/14/22 Primary care physician: Unknown Physician Admitting clinician: Tez Arellano Attending physician on admission: Tez Arellano Consults: 10/03/22 23:40 Consult to Hospitalist Routine Comment: Consulting Provider: Hospitalist Reason For Exam: admission physical Attending physician on discharge: Ruben Krueger Discharging clinician: Danielle Oneill DS: Diagnosis Discharge Diagnosis (1) Bipolar affective disorder, manic, severe, with psychotic behavior: Status: Acute DS: Medications Discharge Medications Home Medications: Previous Rx's Medication Instructions Recorded amlodipine 2.5 mg tablet 2.5 mg PO DAILY #30 tabs 10/14/22 aspirin 81 mg chewable tablet 81 mg PO DAILY #30 tabs 10/14/22 benztropine 1 mg tablet 1 mg PO BID #60 tabs 10/14/22 carbamazepine 200 mg 400 mg PO BEDTIME #60 tabs 10/14/22 tablet,extended release,12 hr furosemide 20 mg tablet 20 mg PO DAILY #30 tabs 10/14/22 glipizide 2.5 mg tablet, extended 2.5 mg PO DAILY #30 tabs 10/14/22 release 24 hr magnesium oxide 400 mg (241.3 mg 400 mg PO DAILY #30 tabs 10/14/22 magnesium) tablet metoprolol succinate 25 mg 25 mg PO DAILY #30 tabs 10/14/22 tablet,extended release 24 hr quetiapine 300 mg tablet 300 mg PO BEDTIME #30 tabs 10/14/22 rosuvastatin 10 mg tablet 10 mg PO BEDTIME #30 tabs 10/14/22 thyroid (pork) 120 mg tablet 120 mg PO DAILY #30 tabs 10/14/22 ([place] Thyroid) trazodone 100 mg tablet 100 mg PO BEDTIME #30 tabs 10/14/22 Mental Status Exam Mental Status Exam Patient Appearance: Appropriate Patient Orientation: Person, Place, Time and Situation Level of Consciousness: Alert Patient Behavior: Talkative, Cooperative and Good Eye Contact Mood Description: Appropriate and Anxious Affect Description: Anxious Patient Cognition Impaired: No Ability to Follow Directions: Good Speech Pattern: Spontaneous Speech Memory Description: Intact Hallucinations: None Delusions: Not Present Perceptual Disturbances: Depersonalization and Derealization Thought Process: Racing (mild), Distracted and Rumination Thought Content: positive for Racing (mild) and positive for Circumstantial Depressive Symptoms: Increased Anxiety and Difficulty Concentrating Judgement: Fair Data Data Completed and Pending Completed studies during hospitalization [Text1]: 10/08/22 10/10/22 10/11/22 14:44 08:21 08:24 WBC RBC Hgb Hct MCV MCH MCHC RDW Plt Count MPV Immature Gran % (Auto) Neut % (Auto) Lymph % (Auto) [place] % (Auto) Eos % (Auto) Baso % (Auto) Lymph # (Auto) [place] # (Auto) Eos # (Auto) Baso # (Auto) Abs Immat Gran (auto) Absolute Neuts (auto) Absolute Nucleated RBC Nucleated RBC % (auto) Sodium Potassium Chloride Carbon Dioxide Anion Gap BUN Creatinine Estim Creat Clear Calc Estimated GFR POC Glucose 111 133 H 105 Random Glucose Calcium Total Bilirubin AST ALT Alkaline Phosphatase Total Protein Albumin Valproic Acid Carbamazepine 10/12/22 10/12/22 10/12/22 07:35 07:35 07:35 WBC 10.6 RBC 4.06 L Hgb 12.6 Hct 39.3 MCV 96.8 MCH 31.0 MCHC 32.1 RDW 14.2 Plt Count 149 L MPV 10.9 Immature Gran % (Auto) 1.3 H Neut % (Auto) 45.9 Lymph % (Auto) 43.1 H [place] % (Auto) 6.9 Eos % (Auto) 2.3 Baso % (Auto) 0.5 Lymph # (Auto) 4.6 [place] # (Auto) 0.7 Eos # (Auto) 0.2 Baso # (Auto) 0.1 Abs Immat Gran (auto) 0.14 H Absolute Neuts (auto) 4.9 Absolute Nucleated RBC 0.020 H Nucleated RBC % (auto) 0.2 Sodium 142 Potassium 4.8 Chloride 103 Carbon Dioxide 32 H Anion Gap 12 BUN 15 Creatinine 0.73 Estim Creat Clear Calc 94.4 Estimated GFR > 60 POC Glucose Random Glucose 112 Calcium 9.7 Total Bilirubin 0.4 AST 12 ALT 12 Alkaline Phosphatase 58 Total Protein 6.4 L Albumin 3.6 Valproic Acid 44.4 L Carbamazepine 8.3 10/13/22 10/14/22 08:12 08:39 WBC RBC Hgb Hct MCV MCH MCHC RDW Plt Count MPV Immature Gran % (Auto) Neut % (Auto) Lymph % (Auto) [place] % (Auto) Eos % (Auto) Baso % (Auto) Lymph # (Auto) [place] # (Auto) Eos # (Auto) Baso # (Auto) Abs Immat Gran (auto) Absolute Neuts (auto) Absolute Nucleated RBC Nucleated RBC % (auto) Sodium Potassium Chloride Carbon Dioxide Anion Gap BUN Creatinine Estim Creat Clear Calc Estimated GFR POC Glucose 114 117 H Random Glucose Calcium Total Bilirubin AST ALT Alkaline Phosphatase Total Protein Albumin Valproic Acid Carbamazepine DS: Summary Hospital Course Hospital Course: Admission to adult psychiatry for exacerbation of bipolar disorder, becca. Pt emphasized that she had not been heard during other hospitalizations as to what agents helped and what agents did not help by history. Medications were assessed, adjusted with pt's input and implemented. She participated in the milieu and with the team in treatment planning. She tolerated medicine changes, stabilized, signed a three day notice and returned to her home and family with stability. She was clear in saying that family, although supportive to her, was too involved in her treatment. She was able to set limits and assert herself during this admission to coordinate her care with the treatment team, make choices for out patient follow up and limit family involvement. Status at Discharge Functional status at discharge: independent ambulation Overall status at discharge: patient is back to baseline Time Spent with Patient Time attestation: Total time managing care of this patient today ____ minutes. Time spent: Greater than 30 minutes Discharge Plan Discharge Anticipated Discharge Date/Time: 10/14/22 16:00 Patient Disposition: Home, Self-Care Discharge Diagnosis: Bipolar Disorder Referrals: Therapy Intake:Nell Miramontes([facility]) [Other] - 10/17/22 4:15 pm (Appointment is in person at the office ) Psych Prescriber: Rylan Williamson ([facility]) [Other] - 11/13/22 2:00 pm (Appointment is in person at the office ) [facility]: Service Authorization [Other] - 1 Week (Call and ask for service authorization to follow up with status of DM application) Khoa Stoner PA-C [Physician [employer]] - 1 Week (left message) Discharge Medications: New aspirin 81 mg Tablet,Chewable 81 mg PO DAILY Qty: 30 0RF carbamazepine 200 mg Tablet Extended Release 12 Hr 400 mg PO BEDTIME Qty: 60 0RF quetiapine 300 mg Tablet 300 mg PO BEDTIME Qty: 30 0RF trazodone 100 mg Tablet 100 mg PO BEDTIME Qty: 30 0RF magnesium oxide 400 mg (241.3 mg magnesium) Tablet 400 mg PO DAILY Qty: 30 0RF Continued amlodipine 2.5 mg tablet 2.5 mg PO DAILY Qty: 30 0RF glipizide 2.5 mg tablet extended release 24hr 2.5 mg PO DAILY Qty: 30 0RF benztropine 1 mg tablet 1 mg PO BID Qty: 60 0RF furosemide 20 mg tablet 20 mg PO DAILY Qty: 30 0RF metoprolol succinate 25 mg tablet extended release 24 hr 25 mg PO DAILY Qty: 30 0RF rosuvastatin 10 mg tablet 10 mg PO BEDTIME Qty: 30 0RF thyroid (pork) [[place] Thyroid] 120 mg tablet 120 mg PO DAILY Qty: 30 0RF Discontinued perphenazine 2 mg tablet 4 mg PO BID lorazepam 0.5 mg tablet 0.5 mg PO BEDTIME valproic acid (as sodium salt) 250 mg/5 mL solution 1,000 mg PO DAILY trazodone 150 mg tablet 150 mg PO BEDTIME divalproex 250 mg tablet extended release 24 hr 250 mg PO BID paliperidone [Invega] 6 mg tablet extended release 24 hr 6 mg PO DAILY divalproex [Depakote ER] 250 mg tablet extended release 24 hr 250 mg PO BID Discharge Orders: Discharge Order (Routine); Ordered 10/14/22 Ordered By: Danielle Oneill Diet: Advance to usual diet Activity on Discharge: As tolerated Stand Alone Forms: Patient Portal Discharge page, Community Support Care Plan Goals: Mood and Behavioral Stabilization Health Concerns: Mood and Behavioral Stabilization Plan of Treatment: Attend scheduled appointments Take medications as directed Follow up with your primary care physician for labs, Tegretol and Depakote levels prior to your psychiatry appointment. Call and/or return as needed Crisis Team [phone] Assessment: Pt interviewed prior to discharge and found to be fully oriented and without SI/HI Pt has insight and demonstrates good judgment in terms of wanting to pursue treatment. Pt is not in imminent risk of harm to self or others and has a safety plan that includes presenting to the closest ER or calling 911 if feeling unsafe. Pt has been observed closely by nursing and unit staff throughout admission. Pt has not engaged in any behaviors that suggest dangerousness to self or others and has demonstrated appropriate behaviors and impulse control. Discharge Date/Time: 10/14/22 17:20
--- NOTE | 2022-10-14 17:39 | PC.NURSE ---
Pt. alert and oriented X 4. Denies anxiety, depression, SI, HI,AH,VH. Reports readiness for discharge, I feel much better. Discharge instructions and medications reviewed with pt., who verbalized understanding. Pt. left unit 17:20 accompanied by this RN.
== END 2022-10-14 17:20 | disposition home or self-care (01) | DRG 885 ==
PROVIDERS: Psychiatry & Neurology Psychiatry; Admitting Provider Psychiatry & Neurology Psychiatry; Visit Provider Clinical Nurse Specialist Psychiatric/Mental Health, Adult
DX: F31.2 Bipolar disorder, current episode manic severe with psychotic features (principal); E03.9 Hypothyroidism, unspecified; F43.10 Post-traumatic stress disorder, unspecified; I10 Essential (primary) hypertension; E11.9 Type 2 diabetes mellitus without complications; E78.5 Hyperlipidemia, unspecified; Z69 Encounter for mental health services for victim and perpetrator of abuse; Z79.84 Long term (current) use of oral hypoglycemic drugs; Z79.890 Hormone replacement therapy; Z79.899 Other long term (current) drug therapy
CPT/HCPCS: 36415; 80053; 80061; 80156; 80164; 82947; 83036; 85025; 93005

== ENCOUNTER → 2022-10-04 00:09 | Outpatient (BNV) | payer MEDICARE, BC, SELFPAY | PROVIDERS: Admitting Provider Psychiatry & Neurology Psychiatry; Visit Provider Student in an Organized Health Care Education/Training Program | DX: Z02.2 Encounter for examination for admission to residential institution (principal) | CPT/HCPCS: 99429 ==

== ENCOUNTER → 2022-10-04 00:09 | Outpatient (BNV) | payer MEDICARE, BC, SELFPAY | PROVIDERS: Admitting Provider Psychiatry & Neurology Psychiatry; Visit Provider Psychiatry & Neurology Psychiatry | DX: F31.2 Bipolar disorder, current episode manic severe with psychotic features (principal) | CPT/HCPCS: 90792; 99231; 99232; 99239 ==

== ENCOUNTER 2023-01-01 10:18 | Inpatient (IN) | payer MEDICARE, BC, SELFPAY ==
[2023-01-01 10:24] VITALS: BP 149/88; PULSE 100; O2SAT 99
--- NOTE | 2023-01-01 10:24 | ED.GENADULT ---
HPI - General Adult General Chief complaint: Psychiatric Symptoms Stated complaint: PSYCH EPISODE,H/O BIPOLAR PER EMS Time Seen by Provider: 01/01/23 10:23 Source: patient and EMS Mode of arrival: EMS Limitations: no limitations History of Present Illness HPI narrative: Patient is a 62 year old assigned female at with a history of bipolar disorder presenting to the emergency department today with inability to sleep and increased delusions. Patient states that over the last few days she has not been able to sleep and she has noticed [employer] War [employer] era meters pumping her up constantly. Patient denies any suicidal or homicidal ideation, dizziness, lightheadedness, abdominal pain, nausea, vomiting, fever, chills, blurry vision, double vision, loss of vision, chest pain, difficulty breathing, shortness of breath, back pain, night sweats, pain with urination, increased urinary frequency, increased urinary urgency, blood in her urine or stool, syncope or a near syncopal episode, recent trauma or falls, bowel incontinence, bladder incontinence, bowel retention, bladder retention, or any other complaints at this time. Onset (ago): day(s) Severity: mild Relieving factors: none Exacerbating factors: none Associated symptoms: denies other symptoms Treatments prior to arrival: none Related Data Previous Rx's Medication Instructions Recorded amlodipine 2.5 mg tablet 2.5 mg PO DAILY #30 tabs 10/14/22 aspirin 81 mg chewable tablet 81 mg PO DAILY #30 tabs 10/14/22 benztropine 1 mg tablet 1 mg PO BID #60 tabs 10/14/22 carbamazepine 200 mg 400 mg (2 x 200 mg) PO BEDTIME #60 10/14/22 tablet,extended release,12 hr tabs furosemide 20 mg tablet 20 mg PO DAILY #30 tabs 10/14/22 glipizide 2.5 mg tablet, extended 2.5 mg PO DAILY #30 tabs 10/14/22 release 24 hr magnesium oxide 400 mg (241.3 mg 400 mg PO DAILY #30 tabs 10/14/22 magnesium) tablet metoprolol succinate 25 mg 25 mg PO DAILY #30 tabs 10/14/22 tablet,extended release 24 hr quetiapine 300 mg tablet 300 mg PO BEDTIME #30 tabs 10/14/22 rosuvastatin 10 mg tablet 10 mg PO BEDTIME #30 tabs 10/14/22 thyroid (pork) 120 mg tablet 120 mg PO DAILY #30 tabs 10/14/22 ([place] Thyroid) trazodone 100 mg tablet 100 mg PO BEDTIME #30 tabs 10/14/22 Allergies Allergy/AdvReac Type Severity Reaction Status Date / Time amoxicillin Allergy Unknown Uncoded 04/30/18 00:00 Pt states no food allergy Allergy Unknown Uncoded 04/30/18 00:00 Review of Systems Constitutional: Constitutional: Reports no additional constitutional complaints, Denies chills, Denies fever(s) and Denies night sweats Eyes: Eyes: Reports no additional eye complaints, Denies blurry vision, Denies change in vision, Denies diplopia, Denies eye discharge, Denies loss of vision and Denies eye pain ENT: Denies dizziness Cardiovascular: Cardiovascular: Reports no additional cardiovascular complaints, Denies chest pain, Denies lightheadedness, Denies Loss of Consciousness and Denies dyspnea Respiratory: Respiratory: Reports no additional respiratory complaints and Denies dyspnea Gastrointestinal: Gastrointestinal: Reports no additional gastrointestinal complaints, Denies abdominal pain, Denies melena, Denies hematochezia, Denies change in bowel habits and Denies change in stool character Genitourinary: Genitourinary: Denies hematuria, Denies urinary frequency, Denies dysuria, Denies urinary incontinence, Denies urinary hesitancy and Denies urinary urgency Musculoskeletal: Musculoskeletal: Reports no additional musculoskeletal complaints, Denies numbness and Denies tingling Neurologic: Denies dizziness, Denies loss of vision, Denies numbness and Denies tingling Psychiatric: Psychiatric: Reports no additional psychiatric complaints, Reports abnormal sleep pattern, Reports visual hallucinations, Denies homicidal ideation and Denies suicidal ideation Endocrine: Endocrine: Reports no additional endocrine complaints Hematologic/Lymphatic: Hematologic/Lymphatic: Reports no additional hematologic/lymphatic complaints Allergic/Immunologic: Allergic/Immunologic: Reports no additional allergic/immunologic complaints PMFSH Past Medical History Attestation statement: The following information was validated with the patient. Source: old records reviewed and nursing notes reviewed Social History Household Members: None Housing: Condominium Do you presently have visiting nurse or other home services: No Patient Tobacco Use Status: Never used Tobacco Advance Directives: Yes Advance Directives Information Provided: No Advance Directives on File: No service: No Sexual orientation: Straight/Heterosexual Physical Exam ED Vital Signs: Vital Signs - 24 hr 01/01/23 10:31 Temperature 97.5 F Pulse Rate 99 Respiratory Rate 20 Blood Pressure 150/75 H Pulse Oximetry 94 Oxygen Delivery Method Room Air BMI result Body Mass Index 33.1 Const General: cooperative, no acute distress, alert and awake Nutritional Appearance: well nourished Orientation/consciousness: patient oriented x3 Limitations: no limitations HENMT Head: Yes normal to inspection and Yes atraumatic Ears: hearing grossly normal bilaterally and external ears normal General nose exam: Normal external nose present, no nasal discharge noted and no epistaxis Face and sinus: Yes normal facial exam, No abrasion and No laceration Mouth: Normal oral and palatal mucosa present, no drooling and no muffled voice Eyes General: appearance normal, both eyes and all related structures Periorbital: periorbital findings normal Eyelids: Yes eyelids normal Conjunctivae: conjunctivae normal Pupils: Equal, round and reactive pupils present EOM: EOMs intact bilaterally Neck Neck: Yes normal visual inspection, Yes full ROM and Yes no lymphadenopathy Chest Chest palpation & inspection: normal inspection of the chest Resp Effort & Inspection: normal respiratory effort and able to speak in complete sentences GI Inspection: Yes normal to inspection Neuro General: patient oriented x3 and moves all extremities Cranial nerves: Yes Equal, round and reactive pupils present Cognition (Neuro): normal cognition Motor exam (neuro): 5/5 motor strength present throughout Sensory Exam: Normal double simultaneous stimulation for sensation Coordination: [id number] test normal Extrem General: Yes normal to inspection, Yes full ROM and Yes capillary refill normal Psych Speech and movement: Pressured speech present Affect: Labile affect present Attitude: cooperative Thought process: Confabulating thought process present Thought content: Paranoid delusions present Medical Decision Making Medical Decision Making MDM Narrative: Patient is a 62 year old assigned female at with a history of bipolar disorder presenting to the emergency department today with paranoid delusions and difficulty sleeping. Patient's physical exam was as noted in the physical exam portion of this note. Patient's blood work was unremarkable. Patient's urine showed a possible UTI however, will wait for culture before initiating treatment. Patient's EKG was unremarkable. I explained my physical exam findings as well as all test results to the patient. I answered all questions asked by the patient. Patient evaluated by CARE team who recommends psychiatric admission. Differential Diagnosis Differential Diagnoses: The differential diagnosis associated with the presentation includes Psychosis Bipolar disorder Delusions Admission/Observation Consideration of admission/observation: Escalation of care including admission/observation considered Patient will be admitted for inpatient psychiatric care. Lab Data [facility] Lab Attestation statement: I reviewed the patient's lab results. My interpretation of these results are in the [facility] Rationale portion of this note. 01/01/23 10:54 01/01/23 10:54 Labs: Lab Results 01/01/23 01/01/23 01/01/23 Range/Units 10:46 10:47 10:54 WBC 9.5 (4.8-10.8) X10*3/uL RBC 4.27 (4.20-5.50) X10*6/uL Hgb 13.0 (12.0-16.0) g/dl Hct 38.7 (37.0-47.0) % MCV 90.6 (80.0-98.0) fL MCH 30.4 (27.0-33.0) pg MCHC 33.6 (31.0-35.0) g/dl RDW 13.8 (11.0-16.0) % Plt Count 176 (160-400) X10*3/uL MPV 10.5 (9.4-12.3) fL Immature Gran % (Auto) 0.5 H (0.0-0.4) % Neut % (Auto) 71.9 (45-73) % Lymph % (Auto) 20.5 (20-40) % [place] % (Auto) 5.7 (2-11) % Eos % (Auto) 1.1 (0-4) % Baso % (Auto) 0.3 (0-2) % Lymph # (Auto) 2.0 (1.2-4.9) X10*3/uL [place] # (Auto) 0.5 (0.1-1.2) X10*3/uL Eos # (Auto) 0.1 (0.0-0.4) X10*3/uL Baso # (Auto) 0.0 (0.0-0.2) X10*3/uL Abs Immat Gran (auto) 0.05 H (0.00-0.03) X10*3/uL Absolute Neuts (auto) 6.8 (2.0-8.3) x10*3/uL Absolute Nucleated RBC 0.000 (0.0-0.012) X10*3/uL Nucleated RBC % (auto) 0.0 (0.0-0.2) /100WBC Sodium 137 (135-145) mmol/L Potassium 4.1 (3.3-5.1) mmol/L Chloride 100 (96-108) mmol/L Carbon Dioxide 26 (22-29) mmol/L Anion Gap 15 (12-20) BUN 11 (9-16) mg/dL Creatinine 0.77 (0.5-1.4) mg/dL Estim Creat Clear Calc 84.7 Estimated GFR > 60 Random Glucose 165 H (60-115) mg/dL Calcium 9.5 (8.4-10.2) mg/dL Total Bilirubin 0.4 (0.0-1.0) mg/dL AST 19 (5-31) U/L ALT 22 (0-31) U/L Alkaline Phosphatase 72 (39-117) U/L Total Protein 7.2 (6.5-8.0) g/dL Albumin 4.2 (3.5-5.0) g/dL Urine Color Dark Yellow Urine Appearance Clear Urine pH 7.0 (5.0-9.0) Ur Specific [place] <= 1.005 (1.005-1.025) Urine Protein Negative (Neg-Trace) mg/dL Urine Glucose (UA) Negative (Negative) mg/dL Urine Ketones Negative (Negative) mg/dL Urine Blood Negative (Negative) Urine Nitrite Negative (Negative) Ur Leukocyte Esterase Trace H (Negative) Urine RBC 0-2 (0-2) /HPF Urine WBC 6-10 H (0-5) /HPF Ur Squamous Epith Cells 3-5 (0-2) /HPF Urine Bacteria 1+ (None Seen) Hyaline Casts 0-2 (0-2) /LPF Salicylates < 5.0 L (15-30) mg/dL Urine Opiates Screen Not Detected (Not Detect) Urine Fentanyl Screen Not Detected (Not Detect) Acetaminophen < 3 (<30) mcg/mL Ur Barbiturates Screen Not Detected (Not Detect) Ur Phencyclidine Scrn Not Detected (Not Detect) Ur Amphetamines Screen Not Detected (Not Detect) U Benzodiazepines Scrn Not Detected (Not Detect) Urine Cocaine Screen Not Detected (Not Detect) U Marijuana (THC) Screen Not Detected (Not Detect) Ethyl Alcohol < 10 mg/dL COVID-19 (ANIL) Negative (Negative) COVID-19 Clin Com See Note Independent Interpretation I performed an independent interpretation of an: EKG Interpretation: Vent. Rate: 095 BPM Atrial Rate: 095 BPM P-R Int: 170 ms QRS Dur: 084 ms QT Int: 348 ms P-R-T Axes: 050 019 022 degrees QTc Int: 437 ms Normal sinus rhythm Cannot rule out Anterior infarct , age undetermined Abnormal ECG When compared with ECG of 07-OCT-2022 17:54, No significant change was found DD/ [id number] Independent Historian Clinical information obtained from an independent historian. History obtained from or confirmed by: EMS (EMS provided additional history and confirmed the history provided by the patient.) Discharge Plan Discharge Clinical Impression: Acute psychosis Patient Disposition: Still a Patient Prescriptions: No Action aspirin 81 mg Tablet,Chewable 81 mg PO DAILY Qty: 30 0RF carbamazepine 200 mg Tablet Extended Release 12 Hr 400 mg PO BEDTIME Qty: 60 0RF quetiapine 300 mg Tablet 300 mg PO BEDTIME Qty: 30 0RF trazodone 100 mg Tablet 100 mg PO BEDTIME Qty: 30 0RF magnesium oxide 400 mg (241.3 mg magnesium) Tablet 400 mg PO DAILY Qty: 30 0RF amlodipine 2.5 mg tablet 2.5 mg PO DAILY Qty: 30 0RF glipizide 2.5 mg tablet extended release 24hr 2.5 mg PO DAILY Qty: 30 0RF benztropine 1 mg tablet 1 mg PO BID Qty: 60 0RF furosemide 20 mg tablet 20 mg PO DAILY Qty: 30 0RF metoprolol succinate 25 mg tablet extended release 24 hr 25 mg PO DAILY Qty: 30 0RF rosuvastatin 10 mg tablet 10 mg PO BEDTIME Qty: 30 0RF thyroid (pork) [[place] Thyroid] 120 mg tablet 120 mg PO DAILY Qty: 30 0RF Interventions: [place]-Suicide Risk Severity Scale Last Done: 01/01/23 10:34
--- NOTE | 2023-01-01 10:27 | ECG_ITS ---
Test Reason : PSYCH MEDS Blood Pressure : / mmHG Vent. Rate : 095 BPM Atrial Rate : 095 BPM P-R Int : 170 ms QRS Dur : 084 ms QT Int : 348 ms P-R-T Axes : 050 019 022 degrees QTc Int : 437 ms Normal sinus rhythm Normal ECG When compared with ECG of 07-OCT-2022 17:54, No significant change was found Referred By: Bhumi Montano Electronically Signed By:VERA INIGUEZ MD
[2023-01-01 10:31] VITALS: BP 150/75; PULSE 99; RESP 20; TEMP 36.4; O2SAT 94; BMI 33.1
--- NOTE | 2023-01-01 10:36 | PC.NURSE ---
patient coming from home for increasing delusions. feels as if there is equipment in the home to spy on her. states that she felt unsafe at home and feels much safer being in the hospital. changed over into hospital attire, belongings placed into locker 2. calm and cooperative at this time, denying thoughts of si/hi.
[2023-01-01 11:01] LABS: MANUAL DIFF FLAG NO
[2023-01-01 11:02] LABS: Basophils Percent Auto 0.3 % (0-2); Eosinophils Absolute Auto 0.1 X10*3/uL (0.0-0.4); Eosinophils Percent Auto 1.1 % (0-4); Hematocrit 38.7 % (37.0-47.0); Imm Gran Abs Auto 0.05 X10*3/uL (0.00-0.03); Imm Gran Pct Auto 0.5 % (0.0-0.4); Lymphocytes Percent Auto 20.5 % (20-40); Mean Corpuscular HGB Conc 33.6 g/dl (31.0-35.0); Mean Corpuscular Hemoglobin 30.4 pg (27.0-33.0); Mean Corpuscular Volume 90.6 fL (80.0-98.0); Mean Platelet Volume 10.5 fL (9.4-12.3); Monocytes Absolute Auto 0.5 X10*3/uL (0.1-1.2); Monocytes Percent Auto 5.7 % (2-11); Neutrophils Absolute Auto 6.8 x10*3/uL (2.0-8.3); Neutrophils Percent Auto 71.9 % (45-73); Platelet Count 176 X10*3/uL (160-400); Red Blood Count 4.27 X10*6/uL (4.20-5.50); Red Cell Distribution Width 13.8 % (11.0-16.0); White Blood Count 9.5 X10*3/uL (4.8-10.8)
[2023-01-01 11:04] LABS: Appearance Urine Clear; Color Urine Dark Yellow; Glucose Urine UA Negative (Negative); Leukocyte Esterase Urine Trace (Negative); Nitrite Urine Negative (Negative); Specific Gravity - Urine <= 1.005 (1.005-1.025); UMIC TRIGGER UA YES; Urine Blood Negative (Negative); Urine Ketones Negative (Negative); Urine Protein Negative (Neg-Trace)
[2023-01-01 11:09] LABS: Bacteria Urine 1+ (None Seen); Hyaline Casts Urine 0-2 /LPF (0-2); RBC Urine 0-2 /HPF (0-2)
[2023-01-01 11:10] LABS: Amphetamine Screen Urine Not Detected (Not Detect); Barbiturates, Urine Not Detected (Not Detect); Benzodiazepines Screen Urine Not Detected (Not Detect); Cannabinoid Screen Urine Not Detected (Not Detect); Cocaine Screen Urine Not Detected (Not Detect); Fentanyl, urine Not Detected (Not Detect); Opiate Screen Urine Not Detected (Not Detect); Phencyclidine Screen Urine Not Detected (Not Detect)
[2023-01-01 11:15] LABS: COVID-19 Test Negative (Negative); IDNOW Serial# BCCEAD1C
[2023-01-01 11:19] LABS: Acetaminophen LAB < 3 mcg/mL (<30); Alanine Aminotransferase 22 U/L (0-31); Albumin Level 4.2 g/dL (3.5-5.0); Alkaline Phosphatase 72 U/L (39-117); Anion Gap 15 (12-20); Aspartate Amino Transferase 19 U/L (5-31); Bilirubin Total 0.4 mg/dL (0.0-1.0); Blood Urea Nitrogen 11 mg/dL (9-16); Calcium 9.5 mg/dL (8.4-10.2); Carbon Dioxide 26 mmol/L (22-29); Chloride 100 mmol/L (96-108); Creatinine Clr Calc Pharmacy 84.7; Estimated Glomerular Filt Rate > 60; Ethanol < 10 mg/dL; Glucose Random 165 mg/dL (60-115); Potassium 4.1 mmol/L (3.3-5.1); Salicylate < 5.0 mg/dL (15-30); Sodium 137 mmol/L (135-145); Total Protein 7.2 g/dL (6.5-8.0)
--- NOTE | 2023-01-01 12:00 | PC.NURSE ---
meeting with care team at this time
--- NOTE | 2023-01-01 15:57 | PC.NURSE ---
ASSUMED CARE OF PT, SHE IS TO BE ADMITTED TO [facility], PT AWARE AND AGREEABLE TO PLAN. RESTING COMFORTABLY IN HER ROOM AT THIS TIME, IN NAD, FEELS SAFE HERE DENIES SI/HI. MED REC COMPLETED, PA NOTIFIED.
[2023-01-01 18:23] VITALS: BP 150/79; PULSE 95; RESP 18; TEMP 36.5; O2SAT 93
[2023-01-01 19:30] VITALS: BP 118/69; PULSE 100; RESP 16; TEMP 36.8; O2SAT 95
[2023-01-01] MEDS: LORazepam 0.5 MG TABLET PO (20:35)
[2023-01-01] MEDS: carBAMazepine ER 200 MG TAB.ER.12H 400 MG PO (20:35)
[2023-01-01] MEDS: Atorvastatin Calcium 40 MG TABLET PO (20:35)
[2023-01-01] MEDS: traZODone HCL 100 MG TABLET 250 MG PO (20:35)
[2023-01-01] MEDS: QUEtiapine Fumarate 400 MG TABLET PO (20:35)
[2023-01-01] MEDS: Benztropine Mesylate 1 MG TABLET PO (20:35)
--- NOTE | 2023-01-01 22:12 | PC.ADMIT ---
PT is a 62 year old salvadorean speaking white female that arrived on this unit at 19:30 from the [facility] and was placed on 15 minute safety checks. Legal status: CV. PT was BIBA after she called emergency services due to increased paranoia and inability to sleep for several days. PT describes pulsing all over her body and uses the word meters to describe the feeling she is experiencing. PT reports she has been unable to sleep due to this. PT also reports a feeling of pressure on the top of her head. PT reports there were sex traffickers on her phone as well as pornography and she is worried she is being tracked and they will get revenge on her and may be doing this by causing pulsing in her body. PT has a diagnosis of bipolar affective disorder, manic, severe, with psychotic behavior and has had a multitude of psychiatric inpatient hospitalizations. PT is retired and with no children and reports housing as stable [facility] a [facility] [place]. PT does have her own transportation but reports she has been afraid to drive due to her mental health lately. PT reports a positive support system as well as a positive relationship with her providers. TOX neg, COVID neg. VS stable at this time. Legals signed, pt oriented to unit, tx plan and safety tool completed. Plan of care ongoing.
[2023-01-02] MEDS: Furosemide 20 MG TABLET PO (08:01)
[2023-01-02] MEDS: Benztropine Mesylate 1 MG TABLET PO ×2 (08:01→20:31)
[2023-01-02] MEDS: amLODIPine Besylate 5 MG TABLET PO (08:01)
[2023-01-02] MEDS: Aspirin 81 MG TAB.CHEW PO (08:01)
[2023-01-02] MEDS: Metoprolol Succinate ER 25 MG TAB.ER.24H PO (08:01)
[2023-01-02] MEDS: Magnesium Oxide 400 MG TABLET PO (08:01)
[2023-01-02] MEDS: Thyroid,Pork 30 MG TABLET 120 MG PO (08:01)
--- NOTE | 2023-01-02 08:09 | P.HPPS_ITS ---
HPI Date of Service: 01/02/23 Chief Complaint: Psychosis Sources of Information: patient interviewed, chart reviewed and crisis/core team assessment reviewed HPI Subjective Notes: Carver Warning and Conditional Voluntary Narrative: Patient is a 62-year-old female with history of bipolar disorder and PTSD presents for burgeoning manic symptoms in the face of being triggered by PTSD symptoms. Patient reports that she was overall doing well current medication regimen however she went back to therapy, got triggered and started becoming manic, not sleeping, having auditory hallucinations, tactile hallucinations of metered pulsing throughout her body and starting to have paranoid delusions about metalurgy in her brain, controlling her mind... Sex trafficking infiltrating her phone. Patient self presented to the hospital. Denies any SI or HI. It tolerates reality testing well and wants help with medication management. Manic episode and psychotic symptoms. Past Psychiatric History: reports multiple admissions since 2021. Reports 12 ED evaluations since 2021 with 8 inpatient episodes. Had a 2 month admission to [facility] with discharge May 2022. Was on Tegretol at that time and found it helpful. Reports this being changed when she went to [place] afterwards and unsure why but that symptoms got worse. Was seeing Dr. Butler for many years up until his [facility] in 2021. Has an appointment with a new prescriber ( Beata Vincent) in [place] this coming week. reports past medications have included Invega, perphenazine, Abilify, Geodon, olanzapine, lithium and Lamictal. Reports either no benefit or side effects. Does report however that Depakote in combination with an antipsychotic have been helpful or Tegretol with an antipsychotic. Reports Seroquel was helpful in the past at doses between 300 and 600 mg. Medical Evaluation Reviewed: Yes [facility] Medical History (Updated 01/02/23 @ 18:16 by Sony Orellana MD) PTSD (post-traumatic stress disorder) Family History: Deferred Social History: Lives alone. Mom and sister live in the same town. 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 . No children. Enjoys knitting and painting Substance History: Denies Trauma History: Positive trauma history Diagnostics Vital Signs (24Hr): Vital Signs - 24 hr 01/01/23 10:31 01/01/23 18:23 01/01/23 19:30 Temperature 97.5 F 97.7 F 98.3 F Pulse Rate 99 95 100 Respiratory Rate 20 18 16 Blood Pressure 150/75 H 150/79 H 118/69 Pulse Oximetry 94 93 95 Oxygen Delivery Method Room Air Room Air Room Air BMI result Body Mass Index 33.1 Labs 01/01/23 10:54 01/02/23 07:57 Labs: Laboratory Results - last 48 hr 01/01/23 01/01/23 01/01/23 10:46 10:47 10:54 WBC 9.5 RBC 4.27 Hgb 13.0 Hct 38.7 MCV 90.6 MCH 30.4 MCHC 33.6 RDW 13.8 Plt Count 176 MPV 10.5 Immature Gran % (Auto) 0.5 H Neut % (Auto) 71.9 Lymph % (Auto) 20.5 Fisher % (Auto) 5.7 Eos % (Auto) 1.1 Baso % (Auto) 0.3 Lymph # (Auto) 2.0 Fisher # (Auto) 0.5 Eos # (Auto) 0.1 Baso # (Auto) 0.0 Abs Immat Gran (auto) 0.05 H Absolute Neuts (auto) 6.8 Absolute Nucleated RBC 0.000 Nucleated RBC % (auto) 0.0 Sodium 137 Potassium 4.1 Chloride 100 Carbon Dioxide 26 Anion Gap 15 BUN 11 Creatinine 0.77 Estim Creat Clear Calc 84.7 Estimated GFR > 60 Random Glucose 165 H Calcium 9.5 Total Bilirubin 0.4 AST 19 ALT 22 Alkaline Phosphatase 72 Total Protein 7.2 Albumin 4.2 Urine Color Dark Yellow Urine Appearance Clear Urine pH 7.0 Ur Specific Paicines <= 1.005 Urine Protein Negative Urine Glucose (UA) Negative Urine Ketones Negative Urine Blood Negative Urine Nitrite Negative Ur Leukocyte Esterase Trace H Urine RBC 0-2 Urine WBC 6-10 H Ur Squamous Epith Cells 3-5 Urine Bacteria 1+ Hyaline Casts 0-2 Salicylates < 5.0 L Urine Opiates Screen Not Detected Urine Fentanyl Screen Not Detected Acetaminophen < 3 Ur Barbiturates Screen Not Detected Ur Phencyclidine Scrn Not Detected Ur Amphetamines Screen Not Detected U Benzodiazepines Scrn Not Detected Urine Cocaine Screen Not Detected U Marijuana (THC) Screen Not Detected Ethyl Alcohol < 10 COVID-19 (ANIL) Negative COVID-19 Clin Com See Note Meds/Allergies Meds Home Medications Medication Instructions Recorded Confirmed Type amlodipine 2.5 mg tablet 5 mg PO DAILY 01/01/23 01/01/23 History dulaglutide 1.5 mg/0.5 mL 0.75 mg subcut QWEEK 01/01/23 01/02/23 History subcutaneous pen injector (Trulicity) lorazepam 0.5 mg tablet 0.5 mg PO BEDTIME 01/01/23 01/01/23 History quetiapine 300 mg tablet 400 mg PO BEDTIME 01/01/23 01/01/23 History trazodone 100 mg tablet 250 mg PO BEDTIME 01/01/23 01/01/23 History Allergies Allergies Allergy/AdvReac Type Severity Reaction Status Date / Time amoxicillin Allergy Unknown Uncoded 04/30/18 00:00 Pt states no food allergy Allergy Unknown Uncoded 04/30/18 00:00 Mental Status Exam Mental Status Exam Narrative: Pt is alert and oriented; behavior is cooperative, friendly hypomanic; patient is not in distress; dressed in casual attire with unkempt hair but adequate hygiene; mood is described as anxious but affect bright, smiling; eye contact appropriate; Speech pressured and verbose; normal volume;; no psychomotor agitation/retardation present; thought process is goal directed but circumstantial as well; Thought content is on challenging auditory hallucinations and delusions with reality testing, history of trauma, tx; otherwise pertinent to relevant topics; positive for delusional/paranoid ideations however patient is aware that this is likely her mind playing tricks on her; denies any SI/HI. Positive AH Patients insight and judgment impaired Assessment & Plan Assessment & Plan (1) Bipolar affective disorder, manic, severe, with psychotic behavior: Status: Acute Code(s): F31.2 - Bipolar disorder, current episode manic severe with psychotic features (2) PTSD (post-traumatic stress disorder): Status: Acute Code(s): F43.10 - Post-traumatic stress disorder, unspecified Plan Patient is a 62-year-old female with history of bipolar disorder and PTSD presents for burgeoning manic symptoms in the face of being triggered by PTSD symptoms. Patient reports that she was overall doing well current medication regimen however she went back to therapy, got triggered and started becoming manic, not sleeping, having auditory hallucinations, tactile hallucinations of metered pulsing throughout her body and starting to have paranoid delusions about metalurgy in her brain, controlling her mind... Sex trafficking infiltrating her phone. Patient self presented to the hospital. Denies any SI or HI. It tolerates reality testing well and wants help with medication management. Manic episode and psychotic symptoms. Discussed medication management. Patient has had numerous psychotropic medication trials. Agrees to either increase Tegretol, restart Depakote (stopped since wt gain) and/or Seroquel -of note, Depakote added to carbamazepine may result in reduce concentration of Depakote then otherwise expected Will increase carbamazepine at this time since she is already on it and it has been effective, and has not caused weight gain; patient wants to avoid if possible, side effect risks of weight gain and TD (which patient already has some of) Plan: CV Q 15 minute checks Continue current medication regimen ADD Tegretol ER 200 mg daily (Obtained labs and Tegretol level therapeutic, 6.7 so room to increase.) Continue Tegretol extended release 400 mg bedtime Continue Seroquel 400 mg q.h.s. (increased last week from 300 mg) Patient educated on: diagnosis, medication risk/benefits and therapeutic strategies Informed Consent: understands and further education needed Reason for continued inpatient stay Substantial Risk for: rapid decompensation Statement Statement: I have reviewed the history and physical and performed a pertinent examination on my patient. No changes have occurred unless specified. If the History and Physical was not performed prior to admission, the Hospitalist's service will be consulted for completing the admission physical. Time Spent With Patient Time: Total time managing care of this patient today ____ minutes.
[2023-01-02 08:25] VITALS: BP 131/69; PULSE 88; RESP 16; TEMP 36.4; O2SAT 95
[2023-01-02 08:34] LABS: Alanine Aminotransferase 20 U/L (0-31); Albumin Level 4.1 g/dL (3.5-5.0); Alkaline Phosphatase 65 U/L (39-117); Anion Gap 12 (12-20); Aspartate Amino Transferase 16 U/L (5-31); Bilirubin Total 0.3 mg/dL (0.0-1.0); Blood Urea Nitrogen 15 mg/dL (9-16); Calcium 9.8 mg/dL (8.4-10.2); Carbon Dioxide 27 mmol/L (22-29); Chloride 107 mmol/L (96-108); Cholesterol 151 mg/dL (<200); Creatinine Clr Calc Pharmacy 82.6; Estimated Glomerular Filt Rate > 60; Glucose Fasting 179 mg/dL (60-99); HDL Cholesterol 45 mg/dL (>40); LDL Cholesterol Calculated 89 mg/dL (<100); Potassium 4.4 mmol/L (3.3-5.1); Sodium 142 mmol/L (135-145); Total Protein 7.1 g/dL (6.5-8.0); Triglycerides 87 mg/dL (<150)
[2023-01-02 13:38] LABS: Estimated Average Glucose 126 mg/dL; Hemoglobin A1C 148.7283 umol/L
[2023-01-02 13:39] LABS: Carbamazepine Tegretol 6.7 mcg/mL (5.0-12.0)
[2023-01-02 18:39] VITALS: BP 162/73; PULSE 101; RESP 20; TEMP 36.7; O2SAT 92
[2023-01-02] MEDS: carBAMazepine ER 200 MG TAB.ER.12H PO (20:30)
[2023-01-02] MEDS: QUEtiapine Fumarate 400 MG TABLET PO (20:31)
[2023-01-02] MEDS: LORazepam 0.5 MG TABLET PO (20:31)
[2023-01-02] MEDS: traZODone HCL 100 MG TABLET 250 MG PO (20:31)
[2023-01-02] MEDS: carBAMazepine ER 200 MG TAB.ER.12H 400 MG PO (20:31)
[2023-01-02] MEDS: Atorvastatin Calcium 40 MG TABLET PO (20:31)
[2023-01-02] MEDS: hydrOXYzine HCL 25 MG TABLET PO (22:15)
[2023-01-02] MEDS: traZODone HCL 50 MG TABLET PO (22:15)
[2023-01-03 06:00] VITALS: BP 133/63; PULSE 86; RESP 18; TEMP 36.4; O2SAT 94
[2023-01-03] MEDS: Thyroid,Pork 30 MG TABLET 120 MG PO (06:04)
[2023-01-03] MEDS: Metoprolol Succinate ER 25 MG TAB.ER.24H PO (08:34)
[2023-01-03] MEDS: Furosemide 20 MG TABLET PO (08:34)
[2023-01-03] MEDS: Benztropine Mesylate 1 MG TABLET PO ×2 (08:34→21:06)
[2023-01-03] MEDS: Magnesium Oxide 400 MG TABLET PO (08:34)
[2023-01-03] MEDS: amLODIPine Besylate 5 MG TABLET PO (08:34)
[2023-01-03] MEDS: Aspirin 81 MG TAB.CHEW PO (08:34)
[2023-01-03] MEDS: carBAMazepine ER 200 MG TAB.ER.12H PO (08:34)
[2023-01-03 13:38] LABS: Glucose, Whole Blood 148 mg/dL (60-115)
--- NOTE | 2023-01-03 16:04 | P.PNPSI_ITS ---
Subjective Subjective Date of Service: 01/03/23 Reason For Visit: Psychosis Subjective Notes: Conditional Voluntary Interim History: met with patient. Discussed with Nursing. Chart reviewed. Today reports feeling that things are going very well. Does endorse feeling elated. There is some pressured speech and flight of ideas. There is some paranoia and concerns around confidentiality. Reports Auditory hallucinations are less Spoke about Facebook and concerns around pornography and sex trafficking. Reports feeling reasonably safe on the unit. No SI. Medication Compliance: Yes Side effects from medications: No Attending Groups: Yes Review of Systems Acute medical concerns: No Medical Review of Systems: unchanged Review of Systems Review of Systems unremarkable Mental Status Exam Mental Status Exam Narrative: pleasant. Engaged. Fairly presented. Self-care okay. Some pressured speech and flight of ideas. Some elation. No SI or HI. There is paranoia and hallucinations. Insight and judgment gradually improving Diagnostics Vital Signs (24Hr): Vital Signs - 24 hr 01/02/23 18:39 01/03/23 06:00 Temperature 98.1 F 97.6 F Pulse Rate 101 H 86 Respiratory Rate 20 18 Blood Pressure 162/73 H 133/63 Pulse Oximetry 92 94 Oxygen Delivery Method Room Air Room Air BMI result Body Mass Index 33.1 Labs 01/01/23 10:54 01/02/23 07:57 Labs: Laboratory Results - last 48 hr 01/02/23 01/02/23 01/03/23 07:57 13:12 13:34 Sodium 142 Potassium 4.4 Chloride 107 Carbon Dioxide 27 Anion Gap 12 BUN 15 Creatinine 0.79 Estim Creat Clear Calc 82.6 Estimated GFR > 60 POC Glucose 148 H Fasting Glucose 179 H Estimat Average Glucose 126 Hemoglobin A1c % 6.0 Calcium 9.8 Total Bilirubin 0.3 AST 16 ALT 20 Alkaline Phosphatase 65 Total Protein 7.1 Albumin 4.1 Triglycerides 87 Cholesterol 151 LDL Cholesterol, Calc 89 HDL Cholesterol 45 Carbamazepine 6.7 Medications Medications Current Medications Acetaminophen (Acetaminophen 325 Mg Tablet) 650 mg PO Q6H PRN PRN Reason: Headache/Pain Mild Scale (1-3) Al Hydroxide/Mg Hydroxide (Magnesium Hydrox/Alum Hydrox 30 Ml Oral.Susp) 30 ml PO Q6H PRN PRN Reason: Heartburn/Nausea Amlodipine Besylate (Amlodipine Besylate 5 Mg Tablet) 5 mg PO DAILY [facility]; Protocol Last Admin: 11/25/23 08:34 Dose: 5 mg Aspirin (Aspirin 81 Mg Tab.Chew) 81 mg PO DAILY [facility] Last Admin: 01/03/23 08:34 Dose: 81 mg Atorvastatin Calcium (Atorvastatin Calcium 40 Mg Tablet) 40 mg PO BEDTIME [facility] Last Admin: 01/02/23 20:31 Dose: 40 mg Benztropine Mesylate (Benztropine Mesylate 1 Mg Tablet) 1 mg PO BID [facility] Last Admin: 01/03/23 08:34 Dose: 1 mg Carbamazepine (Carbamazepine Er 200 Mg Tab.Er.12h) 400 mg PO BEDTIME [facility] Last Admin: 01/02/23 20:31 Dose: 400 mg Carbamazepine (Carbamazepine Er 200 Mg Tab.Er.12h) 200 mg PO DAILY [facility] Last Admin: 01/03/23 08:34 Dose: 200 mg Furosemide (Furosemide 20 Mg Tablet) 20 mg PO DAILY [facility]; Protocol Last Admin: 01/03/23 08:34 Dose: 20 mg Hydroxyzine HCl (Hydroxyzine Hcl 25 Mg Tablet) 25 mg PO Q6H PRN PRN Reason: Anxiety Last Admin: 01/02/23 22:15 Dose: 25 mg Lorazepam (Lorazepam 0.5 Mg Tablet) 0.5 mg PO BEDTIME [facility] Last Admin: 01/02/23 20:31 Dose: 0.5 mg Magnesium Hydroxide (Milk Of Magnesia 30 Ml Oral.Susp) 30 ml PO DAILY PRN PRN Reason: Constipation Magnesium Oxide (Magnesium Oxide 400 Mg Tablet) 400 mg PO DAILY [facility] Last Admin: 01/03/23 08:34 Dose: 400 mg Metoprolol Succinate (Metoprolol Succinate Er 25 Mg Tab.Er.24h) 25 mg PO DAILY [facility]; Protocol Last Admin: 01/03/23 08:34 Dose: 25 mg Pt Own (Dulaglutide ([Trulicity] 0.75 Mg)) 0.75 mg SUBCUT Fr@0900 [facility] Last Admin: 01/02/23 12:59 Dose: 0.75 mg Quetiapine Fumarate (Quetiapine Fumarate 400 Mg Tablet) 400 mg PO BEDTIME [facility] Last Admin: 01/02/23 20:31 Dose: 400 mg Thyroid (Thyroid,Pork 30 Mg Tablet) 120 mg PO DAILY [facility] Last Admin: 01/03/23 06:04 Dose: 120 mg Trazodone HCl (Trazodone Hcl 100 Mg Tablet) 250 mg PO BEDTIME [facility] Last Admin: 01/02/23 20:31 Dose: 250 mg Trazodone HCl (Trazodone Hcl 50 Mg Tablet) 50 mg PO BEDTIME MRX1 PRN PRN Reason: Insomnia Last Admin: 01/02/23 22:15 Dose: 50 mg Allergies Allergies Allergy/AdvReac Type Severity Reaction Status Date / Time amoxicillin Allergy Unknown Uncoded 04/30/18 00:00 Pt states no food allergy Allergy Unknown Uncoded 04/30/18 00:00 Assessment & Plan Assessment & Plan (1) Bipolar affective disorder, manic, severe, with psychotic behavior: Status: Acute Code(s): F31.2 - Bipolar disorder, current episode manic severe with psychotic features (2) PTSD (post-traumatic stress disorder): Status: Acute Code(s): F43.10 - Post-traumatic stress disorder, unspecified Plan Patient is a 62-year-old female with history of bipolar disorder and PTSD presents for burgeoning manic symptoms in the face of being triggered by PTSD symptoms. Patient reports that she was overall doing well current medication regimen however she went back to therapy, got triggered and started becoming manic, not sleeping, having auditory hallucinations, tactile hallucinations of metered pulsing throughout her body and starting to have paranoid delusions about metalurgy in her brain, controlling her mind... Sex trafficking infiltrating her phone. Patient self presented to the hospital. Denies any SI or HI. It tolerates reality testing well and wants help with medication management. Manic episode and psychotic symptoms. Discussed medication management. Patient has had numerous psychotropic medication trials. Agrees to either increase Tegretol, restart Depakote (stopped since wt gain) and/or Seroquel -of note, Depakote added to carbamazepine may result in reduce concentration of Depakote then otherwise expected Will increase carbamazepine at this time since she is already on it and it has been effective, and has not caused weight gain; patient wants to avoid if possible, side effect risks of weight gain and TD (which patient already has some of) Plan: CV Q 15 minute checks Continue current medication regimen ADD Tegretol ER 200 mg daily (Obtained labs and Tegretol level therapeutic, 6.7 so room to increase.) Continue Tegretol extended release 400 mg bedtime Continue Seroquel 400 mg q.h.s. (increased last week from 300 mg) 01/03/2023: No changes to current regimen as Seroquel just recently increased Reason for continued inpatient stay Substantial Risk for: inability to function and rapid decompensation Time Spent With Patient Time: Total time managing care of this patient today ____ minutes.
[2023-01-03 18:00] VITALS: BP 160/78; PULSE 97; RESP 16; TEMP 36.8; O2SAT 95
[2023-01-03] MEDS: QUEtiapine Fumarate 400 MG TABLET PO (21:06)
[2023-01-03] MEDS: traZODone HCL 100 MG TABLET 250 MG PO (21:06)
[2023-01-03] MEDS: LORazepam 0.5 MG TABLET PO (21:06)
[2023-01-03] MEDS: Atorvastatin Calcium 40 MG TABLET PO (21:06)
[2023-01-03] MEDS: carBAMazepine ER 200 MG TAB.ER.12H 400 MG PO (21:07)
[2023-01-04] MEDS: LORazepam 0.5 MG TABLET PO ×2 (03:32→20:48)
[2023-01-04 08:41] VITALS: BP 132/67; PULSE 92; RESP 16; TEMP 37.1; O2SAT 93
[2023-01-04 08:41] LABS: Glucose, Whole Blood 126 mg/dL (60-115)
[2023-01-04] MEDS: Benztropine Mesylate 1 MG TABLET PO ×2 (08:43→20:48)
[2023-01-04] MEDS: Thyroid,Pork 30 MG TABLET 120 MG PO (08:43)
[2023-01-04] MEDS: Metoprolol Succinate ER 25 MG TAB.ER.24H PO (08:43)
[2023-01-04] MEDS: Magnesium Oxide 400 MG TABLET PO (08:43)
[2023-01-04] MEDS: Aspirin 81 MG TAB.CHEW PO (08:43)
[2023-01-04] MEDS: amLODIPine Besylate 5 MG TABLET PO (08:43)
[2023-01-04] MEDS: carBAMazepine ER 200 MG TAB.ER.12H PO (08:43)
[2023-01-04] MEDS: Furosemide 20 MG TABLET PO (08:43)
[2023-01-04] MEDS: Milk of Magnesia 30 ML ORAL.SUSP PO (13:19)
--- NOTE | 2023-01-04 15:06 | HO.PSYCHPN ---
Subjective Subjective Date of Service: 01/04/23 Reason For Visit: Psychosis Subjective Notes: Carver Warning and 3 Day (expires 01/07) Interim History: met with patient. Discussed with Nursing. Today reports feeling that things are going very well. Hypomania improving- less pressured speech and flight of ideas. Denies AH. Feels positive ref sleep, seroquel 400 and extra tegretol . Ongoing concerns around confidentiality and Facebook, pornography and sex trafficking. Reports feeling reasonably safe on the unit. No SI. Medication Compliance: Yes Side effects from medications: No Attending Groups: Yes Review of Systems Acute medical concerns: No Review of Systems Review of Systems unremarkable Constitutional: Reports no additional constitutional complaints, Denies chills, Denies fever(s) and Denies night sweats Eyes: Reports no additional eye complaints, Denies blurry vision, Denies change in vision, Denies diplopia, Denies eye discharge, Denies loss of vision and Denies eye pain Denies dizziness Cardiovascular: Reports no additional cardiovascular complaints, Denies chest pain, Denies lightheadedness, Denies Loss of Consciousness and Denies dyspnea Respiratory: Reports no additional respiratory complaints and Denies dyspnea Gastrointestinal: Reports no additional gastrointestinal complaints, Denies abdominal pain, Denies melena, Denies hematochezia, Denies change in bowel habits and Denies change in stool character Musculoskeletal: Reports no additional musculoskeletal complaints, Denies numbness and Denies tingling Denies dizziness, Denies loss of vision, Denies numbness and Denies tingling Psychiatric: Reports no additional psychiatric complaints, Reports abnormal sleep pattern, Reports visual hallucinations, Denies homicidal ideation and Denies suicidal ideation Endocrine: Reports no additional endocrine complaints Hematologic/Lymphatic: Reports no additional hematologic/lymphatic complaints Allergic/Immunologic: Reports no additional allergic/immunologic complaints Mental Status Exam Mental Status Exam Narrative: pleasant. Engaged. Fairly presented. Self-care okay. Less pressured speech and flight of ideas. Some elation. No SI or HI. There is paranoia and hallucinations. Insight and judgment gradually improving Diagnostics Vital Signs (24Hr): Vital Signs - 24 hr 01/03/23 18:00 01/04/23 08:41 Temperature 98.2 F 98.7 F Pulse Rate 97 92 Respiratory Rate 16 16 Blood Pressure 160/78 H 132/67 Pulse Oximetry 95 93 Oxygen Delivery Method Room Air Room Air BMI result Body Mass Index 33.1 Labs 01/01/23 10:54 01/02/23 07:57 Labs: Laboratory Results - last 48 hr 01/03/23 01/04/23 13:34 08:36 POC Glucose 148 H 126 H Medications Medications Current Medications Acetaminophen (Acetaminophen 325 Mg Tablet) 650 mg PO Q6H PRN PRN Reason: Headache/Pain Mild Scale (1-3) Al Hydroxide/Mg Hydroxide (Magnesium Hydrox/Alum Hydrox 30 Ml Oral.Susp) 30 ml PO Q6H PRN PRN Reason: Heartburn/Nausea Amlodipine Besylate (Amlodipine Besylate 5 Mg Tablet) 5 mg PO DAILY [facility]; Protocol Last Admin: 01/04/23 08:43 Dose: 5 mg Aspirin (Aspirin 81 Mg Tab.Chew) 81 mg PO DAILY [facility] Last Admin: 01/04/23 08:43 Dose: 81 mg Atorvastatin Calcium (Atorvastatin Calcium 40 Mg Tablet) 40 mg PO BEDTIME [facility] Last Admin: 01/03/23 21:06 Dose: 40 mg Benztropine Mesylate (Benztropine Mesylate 1 Mg Tablet) 1 mg PO BID [facility] Last Admin: 01/04/23 08:43 Dose: 1 mg Carbamazepine (Carbamazepine Er 200 Mg Tab.Er.12h) 400 mg PO BEDTIME [facility] Last Admin: 01/03/23 21:07 Dose: 400 mg Carbamazepine (Carbamazepine Er 200 Mg Tab.Er.12h) 200 mg PO DAILY [facility] Last Admin: 01/04/23 08:43 Dose: 200 mg Furosemide (Furosemide 20 Mg Tablet) 20 mg PO DAILY [facility]; Protocol Last Admin: 01/04/23 08:43 Dose: 20 mg Hydroxyzine HCl (Hydroxyzine Hcl 25 Mg Tablet) 25 mg PO Q6H PRN PRN Reason: Anxiety Last Admin: 01/02/23 22:15 Dose: 25 mg Lorazepam (Lorazepam 0.5 Mg Tablet) 0.5 mg PO BEDTIME [facility] Last Admin: 01/03/23 21:06 Dose: 0.5 mg Magnesium Hydroxide (Milk Of Magnesia 30 Ml Oral.Susp) 30 ml PO DAILY PRN PRN Reason: Constipation Last Admin: 01/04/23 13:19 Dose: 30 ml Magnesium Oxide (Magnesium Oxide 400 Mg Tablet) 400 mg PO DAILY [facility] Last Admin: 01/04/23 08:43 Dose: 400 mg Metoprolol Succinate (Metoprolol Succinate Er 25 Mg Tab.Er.24h) 25 mg PO DAILY [facility]; Protocol Last Admin: 01/04/23 08:43 Dose: 25 mg Pt Own (Dulaglutide ([Trulicity] 0.75 Mg)) 0.75 mg SUBCUT Fr@0900 [facility] Last Admin: 01/02/23 12:59 Dose: 0.75 mg Quetiapine Fumarate (Quetiapine Fumarate 400 Mg Tablet) 400 mg PO BEDTIME [facility] Last Admin: 01/03/23 21:06 Dose: 400 mg Thyroid (Thyroid,Pork 30 Mg Tablet) 120 mg PO DAILY [facility] Last Admin: 01/04/23 08:43 Dose: 120 mg Trazodone HCl (Trazodone Hcl 100 Mg Tablet) 250 mg PO BEDTIME [facility] Last Admin: 01/03/23 21:06 Dose: 200 mg Trazodone HCl (Trazodone Hcl 50 Mg Tablet) 50 mg PO BEDTIME MRX1 PRN PRN Reason: Insomnia Last Admin: 01/02/23 22:15 Dose: 50 mg Allergies Allergies Allergy/AdvReac Type Severity Reaction Status Date / Time amoxicillin Allergy Unknown Uncoded 04/30/18 00:00 Pt states no food allergy Allergy Unknown Uncoded 04/30/18 00:00 Assessment & Plan Assessment & Plan (1) Bipolar affective disorder, manic, severe, with psychotic behavior: Status: Acute Code(s): F31.2 - Bipolar disorder, current episode manic severe with psychotic features (2) PTSD (post-traumatic stress disorder): Status: Acute Code(s): F43.10 - Post-traumatic stress disorder, unspecified Plan Patient is a 62-year-old female with history of bipolar disorder and PTSD presents for burgeoning manic symptoms in the face of being triggered by PTSD symptoms. Patient reports that she was overall doing well current medication regimen however she went back to therapy, got triggered and started becoming manic, not sleeping, having auditory hallucinations, tactile hallucinations of metered pulsing throughout her body and starting to have paranoid delusions about metalurgy in her brain, controlling her mind... Sex trafficking infiltrating her phone. Patient self presented to the hospital. Denies any SI or HI. It tolerates reality testing well and wants help with medication management. Manic episode and psychotic symptoms. Discussed medication management. Patient has had numerous psychotropic medication trials. Agrees to either increase Tegretol, restart Depakote (stopped since wt gain) and/or Seroquel -of note, Depakote added to carbamazepine may result in reduce concentration of Depakote then otherwise expected Will increase carbamazepine at this time since she is already on it and it has been effective, and has not caused weight gain; patient wants to avoid if possible, side effect risks of weight gain and TD (which patient already has some of) Plan: CV Q 15 minute checks Continue current medication regimen ADD Tegretol ER 200 mg daily (Obtained labs and Tegretol level therapeutic, 6.7 so room to increase.) Continue Tegretol extended release 400 mg bedtime Continue Seroquel 400 mg q.h.s. (increased last week from 300 mg) 01/03/2023: No changes to current regimen as Seroquel just recently increased 01/04: 3 day notice Reason for continued inpatient stay Substantial Risk for: rapid decompensation Time Spent With Patient Time: Total time managing care of this patient today ____ minutes.
[2023-01-04 18:00] VITALS: BP 176/79; PULSE 94; TEMP 36.3; O2SAT 99
[2023-01-04] MEDS: carBAMazepine ER 200 MG TAB.ER.12H 400 MG PO (20:47)
[2023-01-04] MEDS: Atorvastatin Calcium 40 MG TABLET PO (20:48)
[2023-01-04] MEDS: QUEtiapine Fumarate 400 MG TABLET PO (20:48)
[2023-01-04] MEDS: traZODone HCL 100 MG TABLET 250 MG PO (20:49)
[2023-01-04] MEDS: traZODone HCL 50 MG TABLET PO (20:51)
[2023-01-05] MEDS: Thyroid,Pork 30 MG TABLET 120 MG PO (05:51)
[2023-01-05 08:00] VITALS: BP 144/73; PULSE 95; RESP 16; TEMP 36.1; O2SAT 95
[2023-01-05 08:28] LABS: Glucose, Whole Blood 154 mg/dL (60-115)
[2023-01-05] MEDS: amLODIPine Besylate 5 MG TABLET PO (09:22)
[2023-01-05] MEDS: Aspirin 81 MG TAB.CHEW PO (09:23)
[2023-01-05] MEDS: Metoprolol Succinate ER 25 MG TAB.ER.24H PO (09:23)
[2023-01-05] MEDS: Benztropine Mesylate 1 MG TABLET PO ×2 (09:23→21:16)
[2023-01-05] MEDS: Furosemide 20 MG TABLET PO (09:23)
[2023-01-05] MEDS: carBAMazepine ER 200 MG TAB.ER.12H PO (09:23)
[2023-01-05] MEDS: Magnesium Oxide 400 MG TABLET PO (09:23)
--- NOTE | 2023-01-05 16:10 | HO.PSYCHPN ---
Subjective Subjective Date of Service: 01/05/23 Reason For Visit: Psychosis Interim History: met with patient; discussed with team; reviewed notes pt remains manic, verbose, sing-song inflection...started talking about nurses at a past hospitalization and how they were not licensed, putting on fake name tags. She says yesterday i was quite psychotic... crying all day and having AH. Today, no AH; pt says sleeping. Mental Status Exam Mental Status Exam Narrative: Pt is alert and oriented; behavior is cooperative, friendly hypomanic; patient is not in distress; dressed in casual attire with unkempt hair but adequate hygiene; mood is described as anxious but affect bright, smiling; eye contact appropriate; Speech pressured and verbose; normal volume;; no psychomotor agitation/retardation present; thought process is goal directed but circumstantial as well; Thought content is on challenging auditory hallucinations and delusions with reality testing, history of trauma, tx; otherwise pertinent to relevant topics; positive for delusional/paranoid ideations however patient is aware that this is likely her mind playing tricks on her; denies any SI/HI. Positive AH Patients insight and judgment impaired Diagnostics Vital Signs (24Hr): Vital Signs - 24 hr 01/04/23 18:00 01/05/23 08:00 Temperature 97.4 F 96.9 F Pulse Rate 94 95 Respiratory Rate 16 Blood Pressure 176/79 H 144/73 H Pulse Oximetry 99 95 Oxygen Delivery Method Room Air Room Air BMI result Body Mass Index 33.1 Labs 01/06/23 08:58 01/06/23 08:58 Labs: Laboratory Results - last 48 hr 01/04/23 01/05/23 08:36 08:24 POC Glucose 126 H 154 H Medications Medications Current Medications Acetaminophen (Acetaminophen 325 Mg Tablet) 650 mg PO Q6H PRN PRN Reason: Headache/Pain Mild Scale (1-3) Al Hydroxide/Mg Hydroxide (Magnesium Hydrox/Alum Hydrox 30 Ml Oral.Susp) 30 ml PO Q6H PRN PRN Reason: Heartburn/Nausea Amlodipine Besylate (Amlodipine Besylate 5 Mg Tablet) 5 mg PO DAILY [facility]; Protocol Last Admin: 01/05/23 09:22 Dose: 5 mg Aspirin (Aspirin 81 Mg Tab.Chew) 81 mg PO DAILY [facility] Last Admin: 01/05/23 09:23 Dose: 81 mg Atorvastatin Calcium (Atorvastatin Calcium 40 Mg Tablet) 40 mg PO BEDTIME [facility] Last Admin: 01/04/23 20:48 Dose: 40 mg Benztropine Mesylate (Benztropine Mesylate 1 Mg Tablet) 1 mg PO BID [facility] Last Admin: 01/05/23 09:23 Dose: 1 mg Carbamazepine (Carbamazepine Er 200 Mg Tab.Er.12h) 400 mg PO BEDTIME [facility] Last Admin: 01/04/23 20:47 Dose: 400 mg Carbamazepine (Carbamazepine Er 200 Mg Tab.Er.12h) 200 mg PO DAILY [facility] Last Admin: 01/05/23 09:23 Dose: 200 mg Furosemide (Furosemide 20 Mg Tablet) 20 mg PO DAILY [facility]; Protocol Last Admin: 01/05/23 09:23 Dose: 20 mg Hydroxyzine HCl (Hydroxyzine Hcl 25 Mg Tablet) 25 mg PO Q6H PRN PRN Reason: Anxiety Last Admin: 01/02/23 22:15 Dose: 25 mg Lorazepam (Lorazepam 0.5 Mg Tablet) 0.5 mg PO BEDTIME [facility] Last Admin: 01/04/23 20:48 Dose: 0.5 mg Magnesium Hydroxide (Milk Of Magnesia 30 Ml Oral.Susp) 30 ml PO DAILY PRN PRN Reason: Constipation Last Admin: 01/04/23 13:19 Dose: 30 ml Magnesium Oxide (Magnesium Oxide 400 Mg Tablet) 400 mg PO DAILY [facility] Last Admin: 01/05/23 09:23 Dose: 400 mg Metoprolol Succinate (Metoprolol Succinate Er 25 Mg Tab.Er.24h) 25 mg PO DAILY [facility]; Protocol Last Admin: 01/05/23 09:23 Dose: 25 mg Pt Own (Dulaglutide ([Trulicity] 0.75 Mg)) 0.75 mg SUBCUT Fr@0900 [facility] Last Admin: 01/02/23 12:59 Dose: 0.75 mg Quetiapine Fumarate (Quetiapine Fumarate 400 Mg Tablet) 400 mg PO BEDTIME [facility] Last Admin: 01/04/23 20:48 Dose: 400 mg Thyroid (Thyroid,Pork 30 Mg Tablet) 120 mg PO DAILY [facility] Last Admin: 01/05/23 05:51 Dose: 120 mg Trazodone HCl (Trazodone Hcl 100 Mg Tablet) 250 mg PO BEDTIME [facility] Last Admin: 01/04/23 20:49 Dose: 250 mg Trazodone HCl (Trazodone Hcl 50 Mg Tablet) 50 mg PO BEDTIME MRX1 PRN PRN Reason: Insomnia Last Admin: 01/04/23 20:51 Dose: 50 mg Allergies Allergies Allergy/AdvReac Type Severity Reaction Status Date / Time amoxicillin Allergy Unknown Uncoded 04/30/18 00:00 Pt states no food allergy Allergy Unknown Uncoded 04/30/18 00:00 Assessment & Plan Assessment & Plan (1) Bipolar affective disorder, manic, severe, with psychotic behavior: Status: Acute Code(s): F31.2 - Bipolar disorder, current episode manic severe with psychotic features (2) PTSD (post-traumatic stress disorder): Status: Acute Code(s): F43.10 - Post-traumatic stress disorder, unspecified Plan Patient is a 62-year-old female with history of bipolar disorder and PTSD presents for burgeoning manic symptoms in the face of being triggered by PTSD symptoms. Patient reports that she was overall doing well current medication regimen however she went back to therapy, got triggered and started becoming manic, not sleeping, having auditory hallucinations, tactile hallucinations of metered pulsing throughout her body and starting to have paranoid delusions about metalurgy in her brain, controlling her mind... Sex trafficking infiltrating her phone. Patient self presented to the hospital. Denies any SI or HI. It tolerates reality testing well and wants help with medication management. Manic episode and psychotic symptoms. Discussed medication management. Patient has had numerous psychotropic medication trials. Agrees to either increase Tegretol, restart Depakote (stopped since wt gain) and/or Seroquel -of note, Depakote added to carbamazepine may result in reduce concentration of Depakote then otherwise expected Will increase carbamazepine at this time since she is already on it and it has been effective, and has not caused weight gain; patient wants to avoid if possible, side effect risks of weight gain and TD (which patient already has some of) 01/05?patient?seems?to?be?a?bit?more?manic,?with?delusional?thinking;?will?wait?for?lab?draws?before?making?other?medication?changes Discussed?case?with?outpatient?provider?who?said?patient?has?Tegretol?level?was?around?9.6?back?in?November? Patient's?brother?says?patient?often?stops?taking?her?medication?and?ends?up?hospitalized Plan: Three?day Q 15 minute checks Continue current medication regimen Continue Tegretol ER 200 mg daily (Obtained labs and Tegretol level therapeutic, 6.7 so room to increase.) Continue Tegretol extended release 400 mg bedtime Continue Seroquel 400 mg q.h.s. (increased last week from 300 mg) Patient educated on: diagnosis and medication risk/benefits Informed Consent: understands and further education needed Reason for continued inpatient stay Substantial Risk for: inability to function Time Spent With Patient Time: Total time managing care of this patient today ____ minutes.
[2023-01-05 18:00] VITALS: BP 142/91; PULSE 100; RESP 18; TEMP 36.1; O2SAT 95
[2023-01-05] MEDS: traZODone HCL 100 MG TABLET 250 MG PO (21:14)
[2023-01-05] MEDS: Atorvastatin Calcium 40 MG TABLET PO (21:16)
[2023-01-05] MEDS: QUEtiapine Fumarate 400 MG TABLET PO (21:16)
[2023-01-05] MEDS: carBAMazepine ER 200 MG TAB.ER.12H 400 MG PO (21:17)
[2023-01-05] MEDS: LORazepam 0.5 MG TABLET PO (21:17)
[2023-01-06] MEDS: Thyroid,Pork 30 MG TABLET 120 MG PO (08:09)
[2023-01-06 08:27] VITALS: BP 128/70; PULSE 104; TEMP 36.1; O2SAT 94
[2023-01-06 08:48] LABS: Glucose, Whole Blood 166 mg/dL (60-115)
[2023-01-06] MEDS: Aspirin 81 MG TAB.CHEW PO (09:12)
[2023-01-06] MEDS: Magnesium Oxide 400 MG TABLET PO (09:12)
[2023-01-06] MEDS: amLODIPine Besylate 5 MG TABLET PO (09:13)
[2023-01-06] MEDS: Metoprolol Succinate ER 25 MG TAB.ER.24H PO (09:13)
[2023-01-06] MEDS: Furosemide 20 MG TABLET PO (09:13)
[2023-01-06] MEDS: carBAMazepine ER 200 MG TAB.ER.12H PO (09:13)
[2023-01-06] MEDS: Benztropine Mesylate 1 MG TABLET PO ×2 (09:14→20:58)
[2023-01-06 10:00] LABS: MANUAL DIFF FLAG NO
[2023-01-06 10:03] LABS: Basophils Percent Auto 0.4 % (0-2); Eosinophils Absolute Auto 0.2 X10*3/uL (0.0-0.4); Hematocrit 39.3 % (37.0-47.0); Imm Gran Abs Auto 0.07 X10*3/uL (0.00-0.03); Imm Gran Pct Auto 0.6 % (0.0-0.4); Lymphocytes Absolute Auto 3.8 X10*3/uL (1.2-4.9); Lymphocytes Percent Auto 33.7 % (20-40); Mean Corpuscular HGB Conc 33.1 g/dl (31.0-35.0); Mean Corpuscular Hemoglobin 31.2 pg (27.0-33.0); Mean Corpuscular Volume 94.2 fL (80.0-98.0); Mean Platelet Volume 10.7 fL (9.4-12.3); Monocytes Absolute Auto 0.8 X10*3/uL (0.1-1.2); Monocytes Percent Auto 6.9 % (2-11); NRBC Pct Auto 0.3 /100WBC (0.0-0.2); Neutrophils Absolute Auto 6.4 x10*3/uL (2.0-8.3); Neutrophils Percent Auto 56.4 % (45-73); Platelet Count 192 X10*3/uL (160-400); Red Blood Count 4.17 X10*6/uL (4.20-5.50); Red Cell Distribution Width 13.9 % (11.0-16.0); White Blood Count 11.3 X10*3/uL (4.8-10.8)
[2023-01-06 10:49] LABS: Alanine Aminotransferase 31 U/L (0-31); Albumin Level 4.3 g/dL (3.5-5.0); Alkaline Phosphatase 87 U/L (39-117); Anion Gap 11 (12-20); Aspartate Amino Transferase 24 U/L (5-31); Bilirubin Direct < 0.2 mg/dL (0.0-0.5); Bilirubin Total 0.2 mg/dL (0.0-1.0); Blood Urea Nitrogen 14 mg/dL (9-16); Calcium 9.6 mg/dL (8.4-10.2); Carbon Dioxide 30 mmol/L (22-29); Chloride 101 mmol/L (96-108); Creatinine Clr Calc Pharmacy 91.9; Estimated Glomerular Filt Rate > 60; Glucose Random 156 mg/dL (60-115); Potassium 4.1 mmol/L (3.3-5.1); Sodium 138 mmol/L (135-145); Total Protein 7.4 g/dL (6.5-8.0)
[2023-01-06 11:52] LABS: Carbamazepine Tegretol 9.6 mcg/mL (5.0-12.0)
--- NOTE | 2023-01-06 17:20 | P.PNPSI_ITS ---
Subjective Subjective Date of Service: 01/06/23 Reason For Visit: Psychosis Interim History: Met with patient; discussed with team; reviewed labs Patient?remains?manic?symptoms?and?says?herself?she?is?feeling manic D oes?not?think?the?Tegretol?increase?his?helping?much;?discussed?going?back?on?[place] pakote?to?which?she?agrees. Retracted?her?3?day?notice Discussed?blood?pressure?and?at?home?she?was?taking?amlodipine?2.5?mg.??Given?th at?she?was?taking?less?than P rescribed?which?is?5?mg?which?was?started?here?on?the?unit,?will?leave?it?curren t?dose?of?5?mg?for?now And?give?it?more?time?to?become?effective Mental Status Exam Mental Status Exam Narrative: Pt is alert and oriented; behavior is cooperative, friendly hypomanic; patient is not in distress; dressed in casual attire with unkempt hair but adequate hygiene; mood is described as a bit manic affect bright, smiling; eye contact appropriate; Speech pressured and verbose; normal volume;; no psychomotor agitation/retardation present; thought process is goal directed but circumstantial as well; Thought content is on challenging auditory hallucinations and delusions with reality testing, history of trauma, tx; otherwise pertinent to relevant topics; positive for delusional/paranoid ideations however patient is aware that this is likely her mind playing tricks on her; denies any SI/HI. Positive Patients insight and judgment impaired Diagnostics Vital Signs (24Hr): Vital Signs - 24 hr 01/05/23 18:00 01/06/23 08:27 Temperature 96.9 F 96.9 F Pulse Rate 100 104 H Respiratory Rate 18 Blood Pressure 142/91 H 128/70 Pulse Oximetry 95 94 Oxygen Delivery Method Room Air Room Air BMI result Body Mass Index 33.1 Labs 01/06/23 08:58 01/06/23 08:58 Labs: Laboratory Results - last 48 hr 01/05/23 01/06/23 01/06/23 08:24 08:32 08:58 WBC 11.3 H RBC 4.17 L Hgb 13.0 Hct 39.3 MCV 94.2 MCH 31.2 MCHC 33.1 RDW 13.9 Plt Count 192 MPV 10.7 Immature Gran % (Auto) 0.6 H Neut % (Auto) 56.4 Lymph % (Auto) 33.7 [place] % (Auto) 6.9 Eos % (Auto) 2.0 Baso % (Auto) 0.4 Lymph # (Auto) 3.8 [place] # (Auto) 0.8 Eos # (Auto) 0.2 Baso # (Auto) 0.0 Abs Immat Gran (auto) 0.07 H Absolute Neuts (auto) 6.4 Absolute Nucleated RBC 0.030 H Nucleated RBC % (auto) 0.3 H Sodium 138 Potassium 4.1 Chloride 101 Carbon Dioxide 30 H Anion Gap 11 L BUN 14 Creatinine 0.71 Estim Creat Clear Calc 91.9 Estimated GFR > 60 POC Glucose 154 H 166 H Random Glucose 156 H Calcium 9.6 Total Bilirubin 0.2 Direct Bilirubin < 0.2 AST 24 ALT 31 Alkaline Phosphatase 87 Total Protein 7.4 Albumin 4.3 Carbamazepine 9.6 Medications Medications Current Medications Acetaminophen (Acetaminophen 325 Mg Tablet) 650 mg PO Q6H PRN PRN Reason: Headache/Pain Mild Scale (1-3) Al Hydroxide/Mg Hydroxide (Magnesium Hydrox/Alum Hydrox 30 Ml Oral.Susp) 30 ml PO Q6H PRN PRN Reason: Heartburn/Nausea Amlodipine Besylate (Amlodipine Besylate 5 Mg Tablet) 5 mg PO DAILY [facility]; Protocol Last Admin: 01/06/23 09:13 Dose: 5 mg Aspirin (Aspirin 81 Mg Tab.Chew) 81 mg PO DAILY [facility] Last Admin: 01/06/23 09:12 Dose: 81 mg Atorvastatin Calcium (Atorvastatin Calcium 40 Mg Tablet) 40 mg PO BEDTIME [facility] Last Admin: 01/05/23 21:16 Dose: 40 mg Benztropine Mesylate (Benztropine Mesylate 1 Mg Tablet) 1 mg PO BID [facility] Last Admin: 01/06/23 09:14 Dose: 1 mg Carbamazepine (Carbamazepine Er 200 Mg Tab.Er.12h) 400 mg PO BEDTIME [facility] Last Admin: 01/05/23 21:17 Dose: 400 mg Divalproex Sodium (Divalproex Sodium Er 250 Mg Tab.Er.24h) 250 mg PO BEDTIME [facility] Furosemide (Furosemide 20 Mg Tablet) 20 mg PO DAILY [facility]; Protocol Last Admin: 01/06/23 09:13 Dose: 20 mg Hydroxyzine HCl (Hydroxyzine Hcl 25 Mg Tablet) 25 mg PO Q6H PRN PRN Reason: Anxiety Last Admin: 01/02/23 22:15 Dose: 25 mg Lorazepam (Lorazepam 0.5 Mg Tablet) 0.5 mg PO BEDTIME [facility] Last Admin: 01/05/23 21:17 Dose: 0.5 mg Magnesium Hydroxide (Milk Of Magnesia 30 Ml Oral.Susp) 30 ml PO DAILY PRN PRN Reason: Constipation Last Admin: 01/04/23 13:19 Dose: 30 ml Magnesium Oxide (Magnesium Oxide 400 Mg Tablet) 400 mg PO DAILY [facility] Last Admin: 01/06/23 09:12 Dose: 400 mg Metoprolol Succinate (Metoprolol Succinate Er 25 Mg Tab.Er.24h) 25 mg PO DAILY [facility]; Protocol Last Admin: 01/06/23 09:13 Dose: 25 mg Pt Own (Dulaglutide ([Trulicity] 0.75 Mg)) 0.75 mg SUBCUT Fr@0900 [facility] Last Admin: 01/02/23 12:59 Dose: 0.75 mg Quetiapine Fumarate (Quetiapine Fumarate 400 Mg Tablet) 400 mg PO BEDTIME [facility] Last Admin: 01/05/23 21:16 Dose: 400 mg Thyroid (Thyroid,Pork 30 Mg Tablet) 120 mg PO DAILY [facility] Last Admin: 01/06/23 08:09 Dose: 120 mg Trazodone HCl (Trazodone Hcl 100 Mg Tablet) 250 mg PO BEDTIME [facility] Last Admin: 01/05/23 21:14 Dose: 25 mg Trazodone HCl (Trazodone Hcl 50 Mg Tablet) 50 mg PO BEDTIME MRX1 PRN PRN Reason: Insomnia Last Admin: 01/04/23 20:51 Dose: 50 mg Allergies Allergies Allergy/AdvReac Type Severity Reaction Status Date / Time amoxicillin Allergy Unknown Uncoded 04/30/18 00:00 Pt states no food allergy Allergy Unknown Uncoded 04/30/18 00:00 Assessment & Plan Assessment & Plan (1) Bipolar affective disorder, manic, severe, with psychotic behavior: Status: Acute Code(s): F31.2 - Bipolar disorder, current episode manic severe with psychotic features (2) PTSD (post-traumatic stress disorder): Status: Acute Code(s): F43.10 - Post-traumatic stress disorder, unspecified Plan Patient is a 62-year-old female with history of bipolar disorder and PTSD presents for burgeoning manic symptoms in the face of being triggered by PTSD symptoms. Patient reports that she was overall doing well current medication regimen however she went back to therapy, got triggered and started becoming manic, not sleeping, having auditory hallucinations, tactile hallucinations of metered pulsing throughout her body and starting to have paranoid delusions about metalurgy in her brain, controlling her mind... Sex trafficking infiltrating her phone. Patient self presented to the hospital. Denies any SI or HI. It tolerates reality testing well and wants help with medication management. Manic episode and psychotic symptoms. Discussed medication management. Patient has had numerous psychotropic medication trials. Agrees to either increase Tegretol, restart Depakote (stopped since wt gain) and/or Seroquel -of note, Depakote added to carbamazepine may result in reduce concentration of Depakote then otherwise expected Will increase carbamazepine at this time since she is already on it and it has been effective, and has not caused weight gain; patient wants to avoid if possible, side effect risks of weight gain and TD (which patient already has some of) 03/07?patient?seems?to?be?a?bit?more?manic,?with?delusional?thinking;?will?wait?f or?lab?draws?before?making?other?medication?changes D iscussed?case?with?outpatient?provider?who?said?patient?has?Tegretol?level?was?a round?9.6?back?in?November? 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 DC?Tegretol ER 200 mg daily Continue Tegretol extended release 400 mg bedtime Continue Seroquel 400 mg q.h.s. (increased last week from 300 mg) Patient educated on: diagnosis and medication risk/benefits Informed Consent: understands Reason for continued inpatient stay Substantial Risk for: inability to function Time Spent With Patient Time: Total time managing care of this patient today ____ minutes.
[2023-01-06 17:45] LABS: COVID-19 Test Negative (Negative); IDNOW Serial# BCCEAD1C
[2023-01-06 18:35] VITALS: BP 196/86; PULSE 101; RESP 16; TEMP 37.3; O2SAT 92
[2023-01-06] MEDS: traZODone HCL 100 MG TABLET 250 MG PO (20:56)
[2023-01-06] MEDS: QUEtiapine Fumarate 400 MG TABLET PO (20:57)
[2023-01-06] MEDS: Divalproex Sodium ER 250 MG TAB.ER.24H PO (20:57)
[2023-01-06] MEDS: carBAMazepine ER 200 MG TAB.ER.12H 400 MG PO (20:57)
[2023-01-06] MEDS: Atorvastatin Calcium 40 MG TABLET PO (20:57)
[2023-01-06] MEDS: LORazepam 0.5 MG TABLET PO (20:58)
[2023-01-07 08:00] VITALS: BP 129/67; PULSE 95; RESP 16; TEMP 36.9; O2SAT 95
[2023-01-07 08:28] LABS: Glucose, Whole Blood 112 mg/dL (60-115)
[2023-01-07] MEDS: Aspirin 81 MG TAB.CHEW PO (08:51)
[2023-01-07] MEDS: Magnesium Oxide 400 MG TABLET PO (08:52)
[2023-01-07] MEDS: Metoprolol Succinate ER 25 MG TAB.ER.24H PO (08:52)
[2023-01-07] MEDS: Thyroid,Pork 30 MG TABLET 120 MG PO (08:52)
[2023-01-07] MEDS: amLODIPine Besylate 5 MG TABLET PO (08:53)
[2023-01-07] MEDS: Benztropine Mesylate 1 MG TABLET PO ×2 (08:53→21:10)
[2023-01-07] MEDS: Furosemide 20 MG TABLET PO (08:53)
[2023-01-07] MEDS: Milk of Magnesia 30 ML ORAL.SUSP PO (14:12)
--- NOTE | 2023-01-07 14:49 | HO.PSYCHPN ---
Subjective Subjective Date of Service: 01/07/23 Reason For Visit: Psychosis Subjective Notes: Conditional Voluntary Interim History: Reviewed with . Patient presents guarded and brief during 1:1. Pt stated, I'm doing okay. I'm tired. I showered, did laundry and slept well . Patient reports she feels the Depakote is making her tired. denies SI/HI/VH/AH. Medication Compliance: Yes Review of Systems Constitutional: Reports as per HPI Eyes: Reports as per HPI Reports as per HPI Cardiovascular: Reports as per HPI Respiratory: Reports as per HPI Gastrointestinal: Reports as per HPI Genitourinary: Reports as per HPI Musculoskeletal: Reports as per HPI Skin/Breast: Reports as per HPI Reports as per HPI Psychiatric: Reports as per HPI Endocrine: Reports as per HPI Hematologic/Lymphatic: Reports as per HPI Allergic/Immunologic: Reports as per HPI Mental Status Exam Mental Status Exam Narrative: Pt is alert and oriented; behavior is guarded and brief; dressed in casual attire; mood is described as tired ; eye contact appropriate; Speech is normal rate, volume and prosody and not pressured; thought process is goal directed; Thought content is on tx; otherwise pertinent to relevant topics and without any delusional content, paranoid ideations or grandiosity; denies SI/HI/AH/VH. Diagnostics Vital Signs (24Hr): Vital Signs - 24 hr 01/06/23 18:35 01/07/23 08:00 Temperature 99.1 F 98.4 F Pulse Rate 101 H 95 Respiratory Rate 16 16 Blood Pressure 196/86 H 129/67 Pulse Oximetry 92 95 Oxygen Delivery Method Room Air Room Air BMI result Body Mass Index 33.1 Labs 01/06/23 08:58 01/06/23 08:58 Labs: Laboratory Results - last 48 hr 01/06/23 01/06/23 01/06/23 08:32 08:58 17:10 WBC 11.3 H RBC 4.17 L Hgb 13.0 Hct 39.3 MCV 94.2 MCH 31.2 MCHC 33.1 RDW 13.9 Plt Count 192 MPV 10.7 Immature Gran % (Auto) 0.6 H Neut % (Auto) 56.4 Lymph % (Auto) 33.7 [place] % (Auto) 6.9 Eos % (Auto) 2.0 Baso % (Auto) 0.4 Lymph # (Auto) 3.8 [place] # (Auto) 0.8 Eos # (Auto) 0.2 Baso # (Auto) 0.0 Abs Immat Gran (auto) 0.07 H Absolute Neuts (auto) 6.4 Absolute Nucleated RBC 0.030 H Nucleated RBC % (auto) 0.3 H Sodium 138 Potassium 4.1 Chloride 101 Carbon Dioxide 30 H Anion Gap 11 L BUN 14 Creatinine 0.71 Estim Creat Clear Calc 91.9 Estimated GFR > 60 POC Glucose 166 H Random Glucose 156 H Calcium 9.6 Total Bilirubin 0.2 Direct Bilirubin < 0.2 AST 24 ALT 31 Alkaline Phosphatase 87 Total Protein 7.4 Albumin 4.3 Carbamazepine 9.6 COVID-19 ([facility]) Negative COVID-19 [employer] [facility] See Note 01/07/23 08:23 WBC RBC Hgb Hct MCV MCH MCHC RDW Plt Count MPV Immature Gran % (Auto) Neut % (Auto) Lymph % (Auto) [place] % (Auto) Eos % (Auto) Baso % (Auto) Lymph # (Auto) [place] # (Auto) Eos # (Auto) Baso # (Auto) Abs Immat Gran (auto) Absolute Neuts (auto) Absolute Nucleated RBC Nucleated RBC % (auto) Sodium Potassium Chloride Carbon Dioxide Anion Gap BUN Creatinine Estim Creat Clear Calc Estimated GFR POC Glucose 112 Random Glucose Calcium Total Bilirubin Direct Bilirubin AST ALT Alkaline Phosphatase Total Protein Albumin Carbamazepine COVID-19 ([facility]) COVID-19 Clin Com Medications Medications Current Medications Acetaminophen (Acetaminophen 325 Mg Tablet) 650 mg PO Q6H PRN PRN Reason: Headache/Pain Mild Scale (1-3) Al Hydroxide/Mg Hydroxide (Magnesium Hydrox/Alum Hydrox 30 Ml Oral.Susp) 30 ml PO Q6H PRN PRN Reason: Heartburn/Nausea Amlodipine Besylate (Amlodipine Besylate 5 Mg Tablet) 5 mg PO DAILY [facility]; Protocol Last Admin: 01/07/23 08:53 Dose: 5 mg Aspirin (Aspirin 81 Mg Tab.Chew) 81 mg PO DAILY [facility] Last Admin: 01/07/23 08:51 Dose: 81 mg Atorvastatin Calcium (Atorvastatin Calcium 40 Mg Tablet) 40 mg PO BEDTIME [facility] Last Admin: 01/06/23 20:57 Dose: 40 mg Benztropine Mesylate (Benztropine Mesylate 1 Mg Tablet) 1 mg PO BID [facility] Last Admin: 01/07/23 08:53 Dose: 1 mg Carbamazepine (Carbamazepine Er 200 Mg Tab.Er.12h) 400 mg PO BEDTIME [facility] Last Admin: 01/06/23 20:57 Dose: 400 mg Divalproex Sodium (Divalproex Sodium Er 250 Mg Tab.Er.24h) 250 mg PO BEDTIME [facility] Last Admin: 01/06/23 20:57 Dose: 250 mg Furosemide (Furosemide 20 Mg Tablet) 20 mg PO DAILY [facility]; Protocol Last Admin: 01/07/23 08:53 Dose: 20 mg Hydroxyzine HCl (Hydroxyzine Hcl 25 Mg Tablet) 25 mg PO Q6H PRN PRN Reason: Anxiety Last Admin: 01/02/23 22:15 Dose: 25 mg Lorazepam (Lorazepam 0.5 Mg Tablet) 0.5 mg PO BEDTIME [facility] Last Admin: 01/06/23 20:58 Dose: 0.5 mg Magnesium Hydroxide (Milk Of Magnesia 30 Ml Oral.Susp) 30 ml PO DAILY PRN PRN Reason: Constipation Last Admin: 01/07/23 14:12 Dose: 30 ml Magnesium Oxide (Magnesium Oxide 400 Mg Tablet) 400 mg PO DAILY [facility] Last Admin: 01/07/23 08:52 Dose: 400 mg Metoprolol Succinate (Metoprolol Succinate Er 25 Mg Tab.Er.24h) 25 mg PO DAILY [facility]; Protocol Last Admin: 01/07/23 08:52 Dose: 25 mg Pt Own (Dulaglutide ([Trulicity] 0.75 Mg)) 0.75 mg SUBCUT Fr@0900 [facility] Last Admin: 01/02/23 12:59 Dose: 0.75 mg Quetiapine Fumarate (Quetiapine Fumarate 400 Mg Tablet) 400 mg PO BEDTIME [facility] Last Admin: 01/06/23 20:57 Dose: 400 mg Thyroid (Thyroid,Pork 30 Mg Tablet) 120 mg PO DAILY [facility] Last Admin: 01/07/23 08:52 Dose: 120 mg Trazodone HCl (Trazodone Hcl 100 Mg Tablet) 250 mg PO BEDTIME [facility] Last Admin: 01/06/23 20:56 Dose: 200 mg Trazodone HCl (Trazodone Hcl 50 Mg Tablet) 50 mg PO BEDTIME MRX1 PRN PRN Reason: Insomnia Last Admin: 01/04/23 20:51 Dose: 50 mg Allergies Allergies Allergy/AdvReac Type Severity Reaction Status Date / Time amoxicillin Allergy Unknown Uncoded 04/30/18 00:00 Pt states no food allergy Allergy Unknown Uncoded 04/30/18 00:00 Assessment & Plan Assessment & Plan (1) Bipolar affective disorder, manic, severe, with psychotic behavior: Status: Acute Code(s): F31.2 - Bipolar disorder, current episode manic severe with psychotic features (2) PTSD (post-traumatic stress disorder): Status: Acute Code(s): F43.10 - Post-traumatic stress disorder, unspecified Plan Patient is a 62-year-old female with history of bipolar disorder and PTSD presents for burgeoning manic symptoms in the face of being triggered by PTSD symptoms. Patient reports that she was overall doing well current medication regimen however she went back to therapy, got triggered and started becoming manic, not sleeping, having auditory hallucinations, tactile hallucinations of metered pulsing throughout her body and starting to have paranoid delusions about metalurgy in her brain, controlling her mind... Sex trafficking infiltrating her phone. Patient self presented to the hospital. Denies any SI or HI. It tolerates reality testing well and wants help with medication management. Manic episode and psychotic symptoms. Discussed medication management. Patient has had numerous psychotropic medication trials. Agrees to either increase Tegretol, restart Depakote (stopped since wt gain) and/or Seroquel -of note, Depakote added to carbamazepine may result in reduce concentration of Depakote then otherwise expected Will increase carbamazepine at this time since she is already on it and it has been effective, and has not caused weight gain; patient wants to avoid if possible, side effect risks of weight gain and TD (which patient already has some of) 01/05?patient?seems?to?be?a?bit?more?manic,?with?delusional?thinking;?will?wait?for?lab?draws?before?making?other?medication?changes Discussed?case?with?outpatient?provider?who?said?patient?has?Tegretol?level?was?around?9.6?back?in?November? Patient's?brother?says?patient?often?stops?taking?her?medication?and?ends?up?hospitalized 01/06?patient?manic,?despite?therapeutic?level?of?Tegretol;?patient?and?keno writer/runner?discussed?medication?management,?risks/side?effects And?she?agrees?to?go?back?on?Depakote.??Hopefully?less?than?before?given?that?she?is?now?also?on?Tegretol Retracted?her?3?day?notice and signed another one Discussed?blood?pressure?and?at?home?she?was?taking?amlodipine?2.5?mg.??Given?that?she?was?taking?less?than Prescribed?which?is?5?mg?which?was?started?here?on?the?unit,?will?leave?it?current?dose?of?5?mg?for?now And?give?it?more?time?to?become?effective 01/07: Patient presents guarded and brief during 1:1. Pt stated, I'm doing okay. I'm tired. I showered, did laundry and slept well . Patient reports she feels the Depakote is making her tired. denies SI/HI/VH/AH. Plan: 3 day; Q 15 minute checks Continue current medication regimen Start?Depakote?ER?250?mg?q.h.s. DC?Tegretol ER 200 mg daily Continue Tegretol extended release 400 mg bedtime Continue Seroquel 400 mg q.h.s. (increased last week from 300 mg) Patient educated on: diagnosis and medication risk/benefits Informed Consent: understands Reason for continued inpatient stay Substantial Risk for: med/psych decompensation Time Spent With Patient Time: Total time managing care of this patient today _20___ minutes.
[2023-01-07 16:40] VITALS: BP 124/66; PULSE 87; RESP 16; TEMP 36.4; O2SAT 93
[2023-01-07] MEDS: LORazepam 0.5 MG TABLET PO (21:09)
[2023-01-07] MEDS: Divalproex Sodium ER 250 MG TAB.ER.24H PO (21:10)
[2023-01-07] MEDS: QUEtiapine Fumarate 400 MG TABLET PO (21:10)
[2023-01-07] MEDS: Atorvastatin Calcium 40 MG TABLET PO (21:10)
[2023-01-07] MEDS: traZODone HCL 100 MG TABLET 250 MG PO (21:10)
[2023-01-07] MEDS: carBAMazepine ER 200 MG TAB.ER.12H 400 MG PO (21:10)
[2023-01-08 08:00] VITALS: BP 142/64; PULSE 62; RESP 18; TEMP 36; O2SAT 94
[2023-01-08] MEDS: Thyroid,Pork 30 MG TABLET 120 MG PO (08:38)
[2023-01-08] MEDS: Furosemide 20 MG TABLET PO (08:38)
[2023-01-08] MEDS: Aspirin 81 MG TAB.CHEW PO (08:38)
[2023-01-08] MEDS: Magnesium Oxide 400 MG TABLET PO (08:38)
[2023-01-08] MEDS: Benztropine Mesylate 1 MG TABLET PO ×2 (08:38→20:10)
[2023-01-08] MEDS: amLODIPine Besylate 5 MG TABLET PO (08:38)
[2023-01-08] MEDS: Metoprolol Succinate ER 25 MG TAB.ER.24H PO (08:38)
[2023-01-08 09:04] LABS: Glucose, Whole Blood 144 mg/dL (60-115)
[2023-01-08] MEDS: Milk of Magnesia 30 ML ORAL.SUSP PO (11:46)
[2023-01-08 13:39] LABS: COVID-19 Test Negative (Negative); IDNOW Serial# BCCEAD1C
--- NOTE | 2023-01-08 15:27 | HO.PSYCHPN ---
Subjective Subjective Date of Service: 01/08/23 Reason For Visit: Psychosis Interim History: Met with patient; discussed with team Patient says she has a little manicky today to which comic writer agrees. She says that yesterday it was a little better, but today she is not doing as well. Patient talking about metalurgy on her brain, and rambling about past events which are unclear how much is based in reality verse delusion; she talks about having sent a letter to the [place], the [place] influencing her... -she vacillates between agreeing that she has some delusions verses believing delusions are real. Still she believes she needs more medication help and agrees to increasing Depakote further Mental Status Exam Mental Status Exam Narrative: Pt is alert and oriented; behavior is cooperative, friendly hypomanic; patient is not in distress; dressed in casual attire with unkempt hair but adequate hygiene; mood is described as a bit manic affect bright, smiling; eye contact appropriate; Speech pressured and verbose; normal volume;; no psychomotor agitation/retardation present; thought process is goal directed but circumstantial as well; Thought content is on delusional thinking; history of trauma, tx; otherwise pertinent to relevant topics; positive for delusional/paranoid ideations however patient is sometimes aware that this is likely her mind playing tricks on her; denies any SI/HI. Positive AH Patients insight and judgment impaired Diagnostics Vital Signs (24Hr): Vital Signs - 24 hr 01/07/23 16:40 01/08/23 08:00 Temperature 97.5 F 96.8 F Pulse Rate 87 62 Respiratory Rate 16 18 Blood Pressure 124/66 142/64 H Pulse Oximetry 93 94 Oxygen Delivery Method Room Air Room Air BMI result Body Mass Index 33.1 Labs 01/06/23 08:58 01/06/23 08:58 Labs: Laboratory Results - last 48 hr 01/06/23 01/07/23 01/08/23 17:10 08:23 08:59 POC Glucose 112 144 H COVID-19 ([facility]IL) Negative COVID-19 Clin Com See Note 01/08/23 13:10 POC Glucose COVID-19 (ANIL) Negative COVID-19 Clin Com See Note Medications Medications Current Medications Acetaminophen (Acetaminophen 325 Mg Tablet) 650 mg PO Q6H PRN PRN Reason: Headache/Pain Mild Scale (1-3) Al Hydroxide/Mg Hydroxide (Magnesium Hydrox/Alum Hydrox 30 Ml Oral.Susp) 30 ml PO Q6H PRN PRN Reason: Heartburn/Nausea Amlodipine Besylate (Amlodipine Besylate 5 Mg Tablet) 5 mg PO DAILY [facility]; Protocol Last Admin: 01/08/23 08:38 Dose: 5 mg Aspirin (Aspirin 81 Mg Tab.Chew) 81 mg PO DAILY [facility] Last Admin: 01/08/23 08:38 Dose: 81 mg Atorvastatin Calcium (Atorvastatin Calcium 40 Mg Tablet) 40 mg PO BEDTIME [facility] Last Admin: 01/07/23 21:10 Dose: 40 mg Benztropine Mesylate (Benztropine Mesylate 1 Mg Tablet) 1 mg PO BID [facility] Last Admin: 01/08/23 08:38 Dose: 1 mg Carbamazepine (Carbamazepine Er 200 Mg Tab.Er.12h) 400 mg PO BEDTIME [facility] Last Admin: 01/07/23 21:10 Dose: 400 mg Divalproex Sodium (Divalproex Sodium Er 250 Mg Tab.Er.24h) 250 mg PO BEDTIME [facility] Last Admin: 01/07/23 21:10 Dose: 250 mg Furosemide (Furosemide 20 Mg Tablet) 20 mg PO DAILY [facility]; Protocol Last Admin: 01/08/23 08:38 Dose: 20 mg Hydroxyzine HCl (Hydroxyzine Hcl 25 Mg Tablet) 25 mg PO Q6H PRN PRN Reason: Anxiety Last Admin: 01/02/23 22:15 Dose: 25 mg Lorazepam (Lorazepam 0.5 Mg Tablet) 0.5 mg PO BEDTIME [facility] Last Admin: 01/07/23 21:09 Dose: 0.5 mg Magnesium Hydroxide (Milk Of Magnesia 30 Ml Oral.Susp) 30 ml PO DAILY PRN PRN Reason: Constipation Last Admin: 01/08/23 11:46 Dose: 30 ml Magnesium Oxide (Magnesium Oxide 400 Mg Tablet) 400 mg PO DAILY [facility] Last Admin: 01/08/23 08:38 Dose: 400 mg Metoprolol Succinate (Metoprolol Succinate Er 25 Mg Tab.Er.24h) 25 mg PO DAILY [facility]; Protocol Last Admin: 01/08/23 08:38 Dose: 25 mg Pt Own (Dulaglutide ([Trulicity] 0.75 Mg)) 0.75 mg SUBCUT Fr@0900 [facility] Last Admin: 01/02/23 12:59 Dose: 0.75 mg Quetiapine Fumarate (Quetiapine Fumarate 400 Mg Tablet) 400 mg PO BEDTIME [facility] Last Admin: 01/07/23 21:10 Dose: 400 mg Thyroid (Thyroid,Pork 30 Mg Tablet) 120 mg PO DAILY [facility] Last Admin: 01/08/23 08:38 Dose: 120 mg Trazodone HCl (Trazodone Hcl 100 Mg Tablet) 250 mg PO BEDTIME [facility] Last Admin: 01/07/23 21:10 Dose: 250 mg Trazodone HCl (Trazodone Hcl 50 Mg Tablet) 50 mg PO BEDTIME MRX1 PRN PRN Reason: Insomnia Last Admin: 01/04/23 20:51 Dose: 50 mg Allergies Allergies Allergy/AdvReac Type Severity Reaction Status Date / Time amoxicillin Allergy Unknown Uncoded 04/30/18 00:00 Pt states no food allergy Allergy Unknown Uncoded 04/30/18 00:00 Assessment & Plan Assessment & Plan (1) Bipolar affective disorder, manic, severe, with psychotic behavior: Status: Acute Code(s): F31.2 - Bipolar disorder, current episode manic severe with psychotic features (2) PTSD (post-traumatic stress disorder): Status: Acute Code(s): F43.10 - Post-traumatic stress disorder, unspecified Plan Patient is a 62-year-old female with history of bipolar disorder and PTSD presents for burgeoning manic symptoms in the face of being triggered by PTSD symptoms. Patient reports that she was overall doing well current medication regimen however she went back to therapy, got triggered and started becoming manic, not sleeping, having auditory hallucinations, tactile hallucinations of metered pulsing throughout her body and starting to have paranoid delusions about metalurgy in her brain, controlling her mind... Sex trafficking infiltrating her phone. Patient self presented to the hospital. Denies any SI or HI. It tolerates reality testing well and wants help with medication management. Manic episode and psychotic symptoms. Discussed medication management. Patient has had numerous psychotropic medication trials. Agrees to either increase Tegretol, restart Depakote (stopped since wt gain) and/or Seroquel -of note, Depakote added to carbamazepine may result in reduce concentration of Depakote then otherwise expected Will increase carbamazepine at this time since she is already on it and it has been effective, and has not caused weight gain; patient wants to avoid if possible, side effect risks of weight gain and TD (which patient already has some of) 01/05?patient?seems?to?be?a?bit?more?manic,?with?delusional?thinking;?will?wait?for?lab?draws?before?making?other?medication?changes Discussed?case?with?outpatient?provider?who?said?patient?has?Tegretol?level?was?around?9.6?back?in?November? Patient's?brother?says?patient?often?stops?taking?her?medication?and?ends?up?hospitalized 01/06?patient?manic,?despite?therapeutic?level?of?Tegretol;?patient?and?comic writer?discussed?medication?management,?risks/side?effects And?she?agrees?to?go?back?on?Depakote.??Hopefully?less?than?before?given?that?she?is?now?also?on?Tegretol Retracted?her?3?day?notice and signed another one Discussed?blood?pressure?and?at?home?she?was?taking?amlodipine?2.5?mg.??Given?that?she?was?taking?less?than Prescribed?which?is?5?mg?which?was?started?here?on?the?unit,?will?leave?it?current?dose?of?5?mg?for?now And?give?it?more?time?to?become?effective 01/07: Patient presents guarded and brief during 1:1. Pt stated, I'm doing okay. I'm tired. I showered, did laundry and slept well . Patient reports she feels the Depakote is making her tired. denies SI/HI/VH/AH. 01/08 rambling about past events which are unclear how much is based in reality verse delusion; she talks about having sent a letter to the [place], the [place] influencing her... -she vacillates between agreeing that she has some delusions verses believing delusions are real. Still she believes she needs more medication help and agrees to increasing Depakote further -agrees to retract 3 day and stay longer Plan: CV (retracted 3 day); Q 15 minute checks Continue current medication regimen Increase to Depakote?ER?500?mg?q.h.s. DC?Tegretol ER 200 mg daily Continue Tegretol extended release 400 mg bedtime Continue Seroquel 400 mg q.h.s. (increased last week from 300 mg) Patient educated on: diagnosis and medication risk/benefits Informed Consent: understands, does not understand and further education needed Reason for continued inpatient stay Substantial Risk for: rapid decompensation Time Spent With Patient Time: Total time managing care of this patient today ____ minutes.
[2023-01-08 18:00] VITALS: BP 150/69; PULSE 90; TEMP 36.7; O2SAT 98
[2023-01-08] MEDS: carBAMazepine ER 200 MG TAB.ER.12H 400 MG PO (20:09)
[2023-01-08] MEDS: traZODone HCL 100 MG TABLET 250 MG PO (20:11)
[2023-01-08] MEDS: Divalproex Sodium ER 500 MG TAB.ER.24H PO (20:11)
[2023-01-08] MEDS: QUEtiapine Fumarate 400 MG TABLET PO (20:11)
[2023-01-08] MEDS: LORazepam 0.5 MG TABLET PO (20:11)
[2023-01-08] MEDS: Atorvastatin Calcium 40 MG TABLET PO (20:12)
[2023-01-09 08:28] LABS: Glucose, Whole Blood 119 mg/dL (60-115)
[2023-01-09] MEDS: Thyroid,Pork 30 MG TABLET 120 MG PO (08:39)
[2023-01-09 09:09] VITALS: BP 157/66; PULSE 94; RESP 16; TEMP 36.1; O2SAT 95
[2023-01-09] MEDS: Magnesium Oxide 400 MG TABLET PO (09:12)
[2023-01-09] MEDS: amLODIPine Besylate 5 MG TABLET PO (09:12)
[2023-01-09] MEDS: Aspirin 81 MG TAB.CHEW PO (09:12)
[2023-01-09] MEDS: Furosemide 20 MG TABLET PO (09:12)
[2023-01-09] MEDS: Benztropine Mesylate 1 MG TABLET PO ×2 (09:13→21:18)
[2023-01-09] MEDS: Metoprolol Succinate ER 25 MG TAB.ER.24H PO (09:13)
--- NOTE | 2023-01-09 09:46 | HO.PSYCHPN ---
Subjective Subjective Date of Service: 01/09/23 Reason For Visit: Psychosis Interim History: met with patient; discussed with team Patient much more calm today; not talking about delusional things at all; sleeping better. Last night patient only took Tegretol 200 mg rather than 400 mg which was ordered. Today she Had some questions about medications and development writer reviewed regimen, risks/side effects versus benefits and patient agreed to continue with Tegretol 400 mg and Depakote 500 mg, agreeing that she wants to keep the Depakote as low as possible and augment mood stability with Tegretol, rather than going back to just being on Depakote which caused weight gain. Mental Status Exam Mental Status Exam Narrative: Pt is alert and oriented; behavior is cooperative, much more calm; patient is not in distress; dressed in casual attire and adequately groomed; mood is described as little anxious but affect much more calm; eye contact appropriate; Speech no longer pressured or verbose but normal rate, volume, prosody; no psychomotor agitation/retardation present; thought process is goal directed and more linear; Thought content is more on treatment; history of trauma; otherwise pertinent to relevant topics; no delusional/paranoid ideations expressed; denies any SI/HI. No AVH; Patients insight and judgment much improved. Diagnostics Vital Signs (24Hr): Vital Signs - 24 hr 01/08/23 18:00 01/09/23 09:09 Temperature 98.0 F 96.9 F Pulse Rate 90 94 Respiratory Rate 16 Blood Pressure 150/69 H 157/66 H Pulse Oximetry 98 95 Oxygen Delivery Method Room Air Room Air BMI result Body Mass Index 33.1 Labs 01/06/23 08:58 01/06/23 08:58 Labs: Laboratory Results - last 48 hr 01/08/23 01/08/23 01/09/23 08:59 13:10 08:03 POC Glucose 144 H 119 H COVID-19 ([facility]IL) Negative COVID-19 Clin Com See Note Medications Medications Current Medications Acetaminophen (Acetaminophen 325 Mg Tablet) 650 mg PO Q6H PRN PRN Reason: Headache/Pain Mild Scale (1-3) Al Hydroxide/Mg Hydroxide (Magnesium Hydrox/Alum Hydrox 30 Ml Oral.Susp) 30 ml PO Q6H PRN PRN Reason: Heartburn/Nausea Amlodipine Besylate (Amlodipine Besylate 5 Mg Tablet) 5 mg PO DAILY [facility]; Protocol Last Admin: 01/09/23 09:12 Dose: 5 mg Aspirin (Aspirin 81 Mg Tab.Chew) 81 mg PO DAILY [facility] Last Admin: 01/09/23 09:12 Dose: 81 mg Atorvastatin Calcium (Atorvastatin Calcium 40 Mg Tablet) 40 mg PO BEDTIME [facility] Last Admin: 01/08/23 20:12 Dose: 40 mg Benztropine Mesylate (Benztropine Mesylate 1 Mg Tablet) 1 mg PO BID [facility] Last Admin: 01/09/23 09:13 Dose: 1 mg Carbamazepine (Carbamazepine Er 200 Mg Tab.Er.12h) 400 mg PO BEDTIME [facility] Last Admin: 01/08/23 20:09 Dose: 200 mg Divalproex Sodium (Divalproex Sodium Er 500 Mg Tab.Er.24h) 500 mg PO BEDTIME [facility] Last Admin: 01/08/23 20:11 Dose: 500 mg Furosemide (Furosemide 20 Mg Tablet) 20 mg PO DAILY [facility]; Protocol Last Admin: 01/09/23 09:12 Dose: 20 mg Hydroxyzine HCl (Hydroxyzine Hcl 25 Mg Tablet) 25 mg PO Q6H PRN PRN Reason: Anxiety Last Admin: 01/02/23 22:15 Dose: 25 mg Lorazepam (Lorazepam 0.5 Mg Tablet) 0.5 mg PO BEDTIME [facility] Last Admin: 01/08/23 20:11 Dose: 0.5 mg Magnesium Hydroxide (Milk Of Magnesia 30 Ml Oral.Susp) 30 ml PO DAILY PRN PRN Reason: Constipation Last Admin: 01/08/23 11:46 Dose: 30 ml Magnesium Oxide (Magnesium Oxide 400 Mg Tablet) 400 mg PO DAILY [facility] Last Admin: 01/09/23 09:12 Dose: 400 mg Metoprolol Succinate (Metoprolol Succinate Er 25 Mg Tab.Er.24h) 25 mg PO DAILY [facility]; Protocol Last Admin: 01/09/23 09:13 Dose: 25 mg Pt Own (Dulaglutide ([Trulicity] 0.75 Mg)) 0.75 mg SUBCUT Fr@0900 [facility] Last Admin: 01/02/23 12:59 Dose: 0.75 mg Quetiapine Fumarate (Quetiapine Fumarate 400 Mg Tablet) 400 mg PO BEDTIME [facility] Last Admin: 01/08/23 20:11 Dose: 400 mg Sodium Chloride (Sodium Chloride 0.65 % Nasal 44 Ml Sprbtl) 1 spray NOSTRIL-B Q1H PRN PRN Reason: Nasal Congestion Thyroid (Thyroid,Pork 30 Mg Tablet) 120 mg PO DAILY [facility] Last Admin: 01/09/23 08:39 Dose: 120 mg Trazodone HCl (Trazodone Hcl 100 Mg Tablet) 250 mg PO BEDTIME [facility] Last Admin: 01/08/23 20:11 Dose: 200 mg Trazodone HCl (Trazodone Hcl 50 Mg Tablet) 50 mg PO BEDTIME MRX1 PRN PRN Reason: Insomnia Last Admin: 01/04/23 20:51 Dose: 50 mg Allergies Allergies Allergy/AdvReac Type Severity Reaction Status Date / Time amoxicillin Allergy Unknown Uncoded 04/30/18 00:00 Pt states no food allergy Allergy Unknown Uncoded 04/30/18 00:00 Assessment & Plan Assessment & Plan (1) Bipolar affective disorder, manic, severe, with psychotic behavior: Status: Acute Code(s): F31.2 - Bipolar disorder, current episode manic severe with psychotic features (2) PTSD (post-traumatic stress disorder): Status: Acute Code(s): F43.10 - Post-traumatic stress disorder, unspecified Plan Patient is a 62-year-old female with history of bipolar disorder and PTSD presents for burgeoning manic symptoms in the face of being triggered by PTSD symptoms. Patient reports that she was overall doing well current medication regimen however she went back to therapy, got triggered and started becoming manic, not sleeping, having auditory hallucinations, tactile hallucinations of metered pulsing throughout her body and starting to have paranoid delusions about metalurgy in her brain, controlling her mind... Sex trafficking infiltrating her phone. Patient self presented to the hospital. Denies any SI or HI. It tolerates reality testing well and wants help with medication management. Manic episode and psychotic symptoms. Discussed medication management. Patient has had numerous psychotropic medication trials. Agrees to either increase Tegretol, restart Depakote (stopped since wt gain) and/or Seroquel -of note, Depakote added to carbamazepine may result in reduce concentration of Depakote then otherwise expected Will increase carbamazepine at this time since she is already on it and it has been effective, and has not caused weight gain; patient wants to avoid if possible, side effect risks of weight gain and TD (which patient already has some of) 01/05?patient?seems?to?be?a?bit?more?manic,?with?delusional?thinking;?will?wait?for?lab?draws?before?making?other?medication?changes Discussed?case?with?outpatient?provider?who?said?patient?has?Tegretol?level?was?around?9.6?back?in?November? Patient's?brother?says?patient?often?stops?taking?her?medication?and?ends?up?hospitalized 01/06?patient?manic,?despite?therapeutic?level?of?Tegretol;?patient?and?development writer?discussed?medication?management,?risks/side?effects And?she?agrees?to?go?back?on?Depakote.??Hopefully?less?than?before?given?that?she?is?now?also?on?Tegretol Retracted?her?3?day?notice and signed another one Discussed?blood?pressure?and?at?home?she?was?taking?amlodipine?2.5?mg.??Given?that?she?was?taking?less?than Prescribed?which?is?5?mg?which?was?started?here?on?the?unit,?will?leave?it?current?dose?of?5?mg?for?now And?give?it?more?time?to?become?effective 01/07: Patient presents guarded and brief during 1:1. Pt stated, I'm doing okay. I'm tired. I showered, did laundry and slept well . Patient reports she feels the Depakote is making her tired. denies SI/HI/VH/AH. 01/08 rambling about past events which are unclear how much is based in reality verse delusion; she talks about having sent a letter to the [employer], the [employer] influencing her... -she vacillates between agreeing that she has some delusions verses believing delusions are real. Still she believes she needs more medication help and agrees to increasing Depakote further -agrees to retract 3 day and stay longer 01/09 Patient much more calm today; not talking about delusional things at all; sleeping better. Last night patient only took Tegretol 200 mg rather than 400 mg which was ordered. Today she Had some questions about medications and development writer reviewed regimen, risks/side effects versus benefits and patient agreed to continue with Tegretol 400 mg and Depakote 500 mg, agreeing that she wants to keep the Depakote as low as possible and augment mood stability with Tegretol, rather than going back to just being on Depakote which caused weight gain. Plan: 3 day Q 15 minute checks continue Depakote?ER?500?mg?q.h.s. DC?Tegretol ER 200 mg daily Continue Tegretol extended release 400 mg bedtime Continue Seroquel 400 mg q.h.s. (increased last week from 300 mg) Labs, levels ordered for next week Patient educated on: diagnosis and medication risk/benefits Informed Consent: understands Reason for continued inpatient stay Substantial Risk for: rapid decompensation Time Spent With Patient Time: Total time managing care of this patient today ____ minutes.
[2023-01-09] MEDS: Sodium Chloride 0.65 % Nasal 44 ML SPRBTL 1 SPRAY NOSTRIL-B ×2 (12:58→17:44)
[2023-01-09 16:30] VITALS: BP 133/65; PULSE 95; TEMP 36.9; O2SAT 93
[2023-01-09] MEDS: traZODone HCL 100 MG TABLET 250 MG PO (21:14)
[2023-01-09] MEDS: Atorvastatin Calcium 40 MG TABLET PO (21:15)
[2023-01-09] MEDS: Divalproex Sodium ER 500 MG TAB.ER.24H PO (21:16)
[2023-01-09] MEDS: QUEtiapine Fumarate 400 MG TABLET PO (21:17)
[2023-01-09] MEDS: carBAMazepine ER 200 MG TAB.ER.12H 400 MG PO (21:18)
[2023-01-09] MEDS: LORazepam 0.5 MG TABLET PO (21:18)
[2023-01-10] MEDS: Thyroid,Pork 30 MG TABLET 120 MG PO (06:24)
[2023-01-10 07:56] LABS: MANUAL DIFF FLAG NO
[2023-01-10 08:00] LABS: Basophils Absolute Auto 0.1 X10*3/uL (0.0-0.2); Basophils Percent Auto 0.5 % (0-2); Eosinophils Absolute Auto 0.2 X10*3/uL (0.0-0.4); Eosinophils Percent Auto 2.2 % (0-4); Hematocrit 36.7 % (37.0-47.0); Imm Gran Abs Auto 0.08 X10*3/uL (0.00-0.03); Imm Gran Pct Auto 0.8 % (0.0-0.4); Lymphocytes Absolute Auto 4.1 X10*3/uL (1.2-4.9); Lymphocytes Percent Auto 41.3 % (20-40); Mean Corpuscular HGB Conc 32.7 g/dl (31.0-35.0); Mean Corpuscular Hemoglobin 31.6 pg (27.0-33.0); Mean Corpuscular Volume 96.6 fL (80.0-98.0); Mean Platelet Volume 10.5 fL (9.4-12.3); Monocytes Absolute Auto 0.7 X10*3/uL (0.1-1.2); Monocytes Percent Auto 7.1 % (2-11); NRBC Pct Auto 0.3 /100WBC (0.0-0.2); Neutrophils Absolute Auto 4.7 x10*3/uL (2.0-8.3); Neutrophils Percent Auto 48.1 % (45-73); Platelet Count 176 X10*3/uL (160-400); Red Cell Distribution Width 14.1 % (11.0-16.0); White Blood Count 9.8 X10*3/uL (4.8-10.8)
[2023-01-10 08:36] LABS: Glucose, Whole Blood 115 mg/dL (60-115)
[2023-01-10] MEDS: Aspirin 81 MG TAB.CHEW PO (08:41)
[2023-01-10] MEDS: Benztropine Mesylate 1 MG TABLET PO ×2 (08:41→21:12)
[2023-01-10] MEDS: Magnesium Oxide 400 MG TABLET PO (08:41)
[2023-01-10] MEDS: amLODIPine Besylate 5 MG TABLET PO (08:41)
[2023-01-10] MEDS: Metoprolol Succinate ER 25 MG TAB.ER.24H PO (08:41)
[2023-01-10] MEDS: Furosemide 20 MG TABLET PO (08:41)
--- NOTE | 2023-01-10 08:43 | P.PNPSI_ITS ---
Subjective Subjective Date of Service: 01/10/23 Reason For Visit: Psychosis Subjective Notes: Conditional Voluntary Healthcare Proxy: No Guardianship: No Medical Problems Affecting Mental Status: No Interim History: Pt seen, review with team. Reports Trazodone dose was changes which has caused difficulty with sleep. Reports it was decreased to 100 mg (MAR indicated 250 mg hs with 50mg prn with 1 repeat). Also reports change from Crestor to Lipitor has caused a heart pounding sensation which she finds uncomfortable. Medication Compliance: Yes Side effects from medications: Yes (?? Lipitor SE) Attending Groups: No Review of Systems Acute medical concerns: No Medical Review of Systems: unchanged Review of Systems Cardiovascular: Reports palpitations (after taking Lipitor reported last night.) Endocrine: Reports palpitations (after taking Lipitor reported last night.) Mental Status Exam Mental Status Exam Patient Appearance: Appropriate Patient Orientation: Person, Place, Time and Situation Level of Consciousness: Alert Patient Behavior: Appropriate, Talkative and Good Eye Contact Mood Description: Anxious Affect Description: Flat Patient Cognition Impaired: No Ability to Follow Directions: Good Speech Pattern: Spontaneous Speech Memory Description: Intact Hallucinations: None Delusions: Not Present Thought Process: Distracted and Rumination Thought Content: positive for Circumstantial and positive for Suicidal Ideation (denies) Depressive Symptoms: Increased Anxiety and Thoughts of /Suicide (denies) Abnormal Motor Activity Signs and Symptoms: Restlessness Judgement: Fair Diagnostics Vital Signs (24Hr): Vital Signs - 24 hr 01/09/23 09:09 01/09/23 16:30 Temperature 96.9 F 98.4 F Pulse Rate 94 95 Respiratory Rate 16 Blood Pressure 157/66 H 133/65 Pulse Oximetry 95 93 Oxygen Delivery Method Room Air Room Air BMI result Body Mass Index 33.1 Labs 01/10/23 07:40 01/06/23 08:58 Labs: Laboratory Results - last 48 hr 01/08/23 01/08/23 01/09/23 08:59 13:10 08:03 WBC RBC Hgb Hct MCV MCH MCHC RDW Plt Count MPV Immature Gran % (Auto) Neut % (Auto) Lymph % (Auto) [place] % (Auto) Eos % (Auto) Baso % (Auto) Lymph # (Auto) [place] # (Auto) Eos # (Auto) Baso # (Auto) Abs Immat Gran (auto) Absolute Neuts (auto) Absolute Nucleated RBC Nucleated RBC % (auto) POC Glucose 144 H 119 H COVID-19 (ANIL) Negative COVID-19 Clin Com See Note 01/10/23 01/10/23 07:40 08:20 WBC 9.8 RBC 3.80 L Hgb 12.0 Hct 36.7 L MCV 96.6 MCH 31.6 MCHC 32.7 RDW 14.1 Plt Count 176 MPV 10.5 Immature Gran % (Auto) 0.8 H Neut % (Auto) 48.1 Lymph % (Auto) 41.3 H [place] % (Auto) 7.1 Eos % (Auto) 2.2 Baso % (Auto) 0.5 Lymph # (Auto) 4.1 [place] # (Auto) 0.7 Eos # (Auto) 0.2 Baso # (Auto) 0.1 Abs Immat Gran (auto) 0.08 H Absolute Neuts (auto) 4.7 Absolute Nucleated RBC 0.030 H Nucleated RBC % (auto) 0.3 H POC Glucose 115 COVID-19 (ANIL) COVID-19 Clin Com Medications Medications Current Medications Acetaminophen (Acetaminophen 325 Mg Tablet) 650 mg PO Q6H PRN PRN Reason: Headache/Pain Mild Scale (1-3) Al Hydroxide/Mg Hydroxide (Magnesium Hydrox/Alum Hydrox 30 Ml Oral.Susp) 30 ml PO Q6H PRN PRN Reason: Heartburn/Nausea Amlodipine Besylate (Amlodipine Besylate 5 Mg Tablet) 5 mg PO DAILY [facility]; Protocol Last Admin: 01/09/23 09:12 Dose: 5 mg Aspirin (Aspirin 81 Mg Tab.Chew) 81 mg PO DAILY [facility] Last Admin: 01/09/23 09:12 Dose: 81 mg Atorvastatin Calcium (Atorvastatin Calcium 40 Mg Tablet) 40 mg PO BEDTIME [facility] Last Admin: 01/09/23 21:15 Dose: 40 mg Benztropine Mesylate (Benztropine Mesylate 1 Mg Tablet) 1 mg PO BID [facility] Last Admin: 01/09/23 21:18 Dose: 1 mg Carbamazepine (Carbamazepine Er 200 Mg Tab.Er.12h) 400 mg PO BEDTIME [facility] Last Admin: 01/09/23 21:18 Dose: 400 mg Divalproex Sodium (Divalproex Sodium Er 500 Mg Tab.Er.24h) 500 mg PO BEDTIME [facility] Last Admin: 01/09/23 21:16 Dose: 500 mg Furosemide (Furosemide 20 Mg Tablet) 20 mg PO DAILY [facility]; Protocol Last Admin: 01/09/23 09:12 Dose: 20 mg Hydroxyzine HCl (Hydroxyzine Hcl 25 Mg Tablet) 25 mg PO Q6H PRN PRN Reason: Anxiety Last Admin: 01/02/23 22:15 Dose: 25 mg Lorazepam (Lorazepam 0.5 Mg Tablet) 0.5 mg PO BEDTIME [facility] Last Admin: 01/09/23 21:18 Dose: 0.5 mg Magnesium Hydroxide (Milk Of Magnesia 30 Ml Oral.Susp) 30 ml PO DAILY PRN PRN Reason: Constipation Last Admin: 01/08/23 11:46 Dose: 30 ml Magnesium Oxide (Magnesium Oxide 400 Mg Tablet) 400 mg PO DAILY [facility] Last Admin: 01/09/23 09:12 Dose: 400 mg Metoprolol Succinate (Metoprolol Succinate Er 25 Mg Tab.Er.24h) 25 mg PO DAILY [facility]; Protocol Last Admin: 01/09/23 09:13 Dose: 25 mg Pt Own (Dulaglutide ([Trulicity] 0.75 Mg)) 0.75 mg SUBCUT Fr@0900 [facility] Last Admin: 01/09/23 11:19 Dose: 0.75 mg Quetiapine Fumarate (Quetiapine Fumarate 400 Mg Tablet) 400 mg PO BEDTIME [facility] Last Admin: 01/09/23 21:17 Dose: 400 mg Sodium Chloride (Sodium Chloride 0.65 % Nasal 44 Ml Sprbtl) 1 spray NOSTRIL-B Q1H PRN PRN Reason: Nasal Congestion Last Admin: 01/09/23 17:44 Dose: 1 spray Thyroid (Thyroid,Pork 30 Mg Tablet) 120 mg PO DAILY@0630 [facility] Last Admin: 01/10/23 06:24 Dose: 120 mg Trazodone HCl (Trazodone Hcl 100 Mg Tablet) 250 mg PO BEDTIME [facility] Last Admin: 01/09/23 21:14 Dose: 200 mg Trazodone HCl (Trazodone Hcl 50 Mg Tablet) 50 mg PO BEDTIME MRX1 PRN PRN Reason: Insomnia Last Admin: 01/04/23 20:51 Dose: 50 mg Allergies Allergies Allergy/AdvReac Type Severity Reaction Status Date / Time amoxicillin Allergy Unknown Uncoded 04/30/18 00:00 Pt states no food allergy Allergy Unknown Uncoded 04/30/18 00:00 Assessment & Plan Assessment & Plan (1) Bipolar affective disorder, manic, severe, with psychotic behavior: Status: Acute Code(s): F31.2 - Bipolar disorder, current episode manic severe with psychotic features (2) PTSD (post-traumatic stress disorder): Status: Acute Code(s): F43.10 - Post-traumatic stress disorder, unspecified Plan Patient is a 62-year-old female with history of bipolar disorder and PTSD presents for burgeoning manic symptoms in the face of being triggered by PTSD symptoms. Patient reports that she was overall doing well current medication regimen however she went back to therapy, got triggered and started becoming manic, not sleeping, having auditory hallucinations, tactile hallucinations of metered pulsing throughout her body and starting to have paranoid delusions about metalurgy in her brain, controlling her mind... Sex trafficking infiltrating her phone. Patient self presented to the hospital. Denies any SI or HI. It tolerates reality testing well and wants help with medication management. Manic episode and psychotic symptoms. Discussed medication management. Patient has had numerous psychotropic medication trials. Agrees to either increase Tegretol, restart Depakote (stopped since wt gain) and/or Seroquel -of note, Depakote added to carbamazepine may result in reduce concentration of Depakote then otherwise expected Will increase carbamazepine at this time since she is already on it and it has been effective, and has not caused weight gain; patient wants to avoid if possible, side effect risks of weight gain and TD (which patient already has some of) 03/07?patient?seems?to?be?a?bit?more?manic,?with?delusional?thinking;?will?wait?f or?lab?draws?before?making?other?medication?changes D iscussed?case?with?outpatient?provider?who?said?patient?has?Tegretol?level?was?a round?9.6?back?in?November? P atient's?brother?says?patient?often?stops?taking?her?medication?and?ends?up?hosp italized 03/08?patient?manic,?despite?therapeutic?level?of?Tegretol;?patient?and?database report writer?di scussed?medication?management,?risks/side?effects A nd?she?agrees?to?go?back?on?Depakote.??Hopefully?less?than?before?given?that?she ?is?now?also?on?Tegretol Retracted?her?3?day?notice and signed another one Discussed?blood?pressure?and?at?home?she?was?taking?amlodipine?2.5?mg.??Given?th at?she?was?taking?less?than P rescribed?which?is?5?mg?which?was?started?here?on?the?unit,?will?leave?it?curren t?dose?of?5?mg?for?now And?give?it?more?time?to?become?effective 01/07: Patient presents guarded and brief during 1:1. Pt stated, I'm doing okay. I'm tired. I showered, did laundry and slept well . Patient reports she feels the Depakote is making her tired. denies SI/HI/VH/AH. 01/08 rambling about past events which are unclear how much is based in reality verse delusion; she talks about having sent a letter to the [employer], the [employer] influencing her... -she vacillates between agreeing that she has some delusions verses believing delusions are real. Still she believes she needs more medication help and agrees to increasing Depakote further -agrees to retract 3 day and stay longer 01/09 Patient much more calm today; not talking about delusional things at all; sleeping better. Last night patient only took Tegretol 200 mg rather than 400 mg which was ordered. Today she Had some questions about medications and database report writer reviewed regimen, risks/side effects versus benefits and patient agreed to continue with Tegretol 400 mg and Depakote 500 mg, agreeing that she wants to keep the Depakote as low as possible and augment mood stability with Tegretol, rather than going back to just being on Depakote which caused weight gain. 01/10: Continue Trazodone Hold Lipitor this evening-pt believes it caused her heart pounding last evening. Plan: 3 day Q 15 minute checks continue Depakote?ER?500?mg?q.h.s. DC?Tegretol ER 200 mg daily Continue Tegretol extended release 400 mg bedtime Continue Seroquel 400 mg q.h.s. (increased last week from 300 mg) Labs, levels ordered for next week Patient educated on: medication risk/benefits and therapeutic strategies Informed Consent: understands and further education needed Reason for continued inpatient stay Substantial Risk for: rapid decompensation Time Spent With Patient Time: Total time managing care of this patient today ____ minutes.
[2023-01-10 08:52] VITALS: BP 136/71; PULSE 91; RESP 18; TEMP 36.8; O2SAT 94
[2023-01-10 12:04] LABS: COVID-19 Test Negative (Negative); IDNOW Serial# BCCEAD1C
[2023-01-10 16:51] VITALS: BP 157/65; PULSE 99; TEMP 2.4; TEMP 36.4; O2SAT 100
[2023-01-10] MEDS: Sodium Chloride 0.65 % Nasal 44 ML SPRBTL 1 SPRAY NOSTRIL-B (18:02)
[2023-01-10] MEDS: Milk of Magnesia 30 ML ORAL.SUSP PO (18:03)
[2023-01-10] MEDS: carBAMazepine ER 200 MG TAB.ER.12H 400 MG PO (21:11)
[2023-01-10] MEDS: traZODone HCL 100 MG TABLET 250 MG PO (21:11)
[2023-01-10] MEDS: QUEtiapine Fumarate 400 MG TABLET PO (21:11)
[2023-01-10] MEDS: LORazepam 0.5 MG TABLET PO (21:12)
[2023-01-10] MEDS: Divalproex Sodium ER 500 MG TAB.ER.24H PO (21:12)
[2023-01-11] MEDS: Thyroid,Pork 30 MG TABLET 120 MG PO (06:36)
[2023-01-11 07:10] LABS: Ammonia 33 umol/L (13-55)
[2023-01-11 07:18] LABS: Carbamazepine Tegretol 7.4 mcg/mL (5.0-12.0); Valproate 20.5 mcg/mL (50.0-100.0)
[2023-01-11 07:19] LABS: Alanine Aminotransferase 26 U/L (0-31); Albumin Level 3.8 g/dL (3.5-5.0); Alkaline Phosphatase 73 U/L (39-117); Anion Gap 14 (12-20); Aspartate Amino Transferase 19 U/L (5-31); Bilirubin Direct 0.1 mg/dL (0.0-0.5); Bilirubin Total 0.3 mg/dL (0.0-1.0); Blood Urea Nitrogen 13 mg/dL (9-16); Carbon Dioxide 28 mmol/L (22-29); Chloride 105 mmol/L (96-108); Creatinine Clr Calc Pharmacy 100.4; Estimated Glomerular Filt Rate > 60; Glucose Random 115 mg/dL (60-115); Potassium 4.6 mmol/L (3.3-5.1); Sodium 142 mmol/L (135-145); Total Protein 6.5 g/dL (6.5-8.0)
[2023-01-11 08:01] LABS: Glucose, Whole Blood 111 mg/dL (60-115)
[2023-01-11 08:30] VITALS: BP 142/64; PULSE 98; TEMP 36.5; O2SAT 93
[2023-01-11] MEDS: Furosemide 20 MG TABLET PO (08:53)
[2023-01-11] MEDS: Aspirin 81 MG TAB.CHEW PO (08:54)
[2023-01-11] MEDS: Benztropine Mesylate 1 MG TABLET PO ×2 (08:54→21:44)
[2023-01-11] MEDS: Metoprolol Succinate ER 25 MG TAB.ER.24H PO (08:54)
[2023-01-11] MEDS: Magnesium Oxide 400 MG TABLET PO (08:54)
[2023-01-11] MEDS: amLODIPine Besylate 5 MG TABLET PO (08:54)
[2023-01-11] MEDS: Milk of Magnesia 30 ML ORAL.SUSP PO (12:28)
[2023-01-11] MEDS: Magnesium Hydrox/Alum Hydrox 30 ML ORAL.SUSP PO (12:56)
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
[2023-01-11 17:25] VITALS: BP 123/65; PULSE 99; RESP 17; TEMP 37; O2SAT 99
[2023-01-11] MEDS: Divalproex Sodium ER 500 MG TAB.ER.24H PO (21:42)
[2023-01-11] MEDS: carBAMazepine ER 200 MG TAB.ER.12H 400 MG PO (21:42)
[2023-01-11] MEDS: traZODone HCL 100 MG TABLET 200 MG PO (21:44)
[2023-01-11] MEDS: QUEtiapine Fumarate 400 MG TABLET PO (21:44)
[2023-01-11] MEDS: LORazepam 0.5 MG TABLET PO (21:44)
[2023-01-12] MEDS: Thyroid,Pork 30 MG TABLET 120 MG PO (06:54)
[2023-01-12] MEDS: Magnesium Oxide 400 MG TABLET PO (08:10)
[2023-01-12] MEDS: Benztropine Mesylate 1 MG TABLET PO ×2 (08:10→20:29)
[2023-01-12] MEDS: Furosemide 20 MG TABLET PO (08:10)
[2023-01-12] MEDS: amLODIPine Besylate 5 MG TABLET PO (08:11)
[2023-01-12] MEDS: Aspirin 81 MG TAB.CHEW PO (08:11)
[2023-01-12] MEDS: Metoprolol Succinate ER 25 MG TAB.ER.24H PO (08:11)
[2023-01-12 08:18] VITALS: BP 110/56; PULSE 89; RESP 18; TEMP 36.1; O2SAT 94
[2023-01-12 08:47] LABS: Glucose, Whole Blood 136 mg/dL (60-115)
--- NOTE | 2023-01-12 09:06 | HO.PSYCHPN ---
Subjective Subjective Date of Service: 01/12/23 Reason For Visit: Psychosis Interim History: Met with patient; discussed with team; reviewed notes Patient reports she is doing better, mood is good. She accidentally insisted on taking Depakote 250 last night, saying she had thought that was the appropriate dose, although she had been taking 500 mg for several nights prior. Patient says that she will continue with 500 mg. She wants however to have a lower dose of trazodone, back to 200 mg saying that she got some unusual dreams last night and wonders if it might be due to this medication. She feels like she is doing better and is overall sleeping. Her 3 days up tomorrow and she wants to discharge home, feeling she is pretty much back to her regular self. Family Development Extension Specialist discussed case with BAMBI em knows patient from prior admissions, covered her this weekend and agrees the patient is at baseline. Discussed outpatient providers and patient will stick with her current psychiatric provider. Discussed attending partial day program with which patient wants to proceed Mental Status Exam Mental Status Exam Narrative: Pt is alert and oriented; behavior is cooperative, much more calm; patient is not in distress; dressed in casual attire and adequately groomed; mood is described as good and affect, congruent, calm; eye contact appropriate; Speech no longer pressured or verbose but normal rate, volume, prosody; no psychomotor agitation/retardation present; thought process is goal directed and more linear; Thought content is on treatment, discharge and intermittently on history of trauma; otherwise pertinent to relevant topics; no delusional/paranoid ideations expressed; denies any SI/HI. No AVH; Patients insight and judgment mildly impaired but at baseline and adequate. Diagnostics Vital Signs (24Hr): Vital Signs - 24 hr 01/11/23 17:25 01/12/23 08:18 Temperature 98.6 F 97.0 F Pulse Rate 99 89 Respiratory Rate 17 18 Blood Pressure 123/65 110/56 L Pulse Oximetry 99 94 Oxygen Delivery Method Room Air Room Air BMI result Body Mass Index 33.1 Labs 01/10/23 07:40 01/11/23 06:58 Labs: Laboratory Results - last 48 hr 01/10/23 01/11/23 01/11/23 11:20 06:58 07:56 Sodium 142 Potassium 4.6 Chloride 105 Carbon Dioxide 28 Anion Gap 14 BUN 13 Creatinine 0.65 Estim Creat Clear Calc 100.4 Estimated GFR > 60 POC Glucose 111 Random Glucose 115 Calcium 10.0 Total Bilirubin 0.3 Direct Bilirubin 0.1 AST 19 ALT 26 Alkaline Phosphatase 73 Ammonia 33 Total Protein 6.5 Albumin 3.8 Valproic Acid 20.5 L Carbamazepine 7.4 COVID-19 (ANIL) Negative COVID-19 Clin Com See Note 01/12/23 08:43 Sodium Potassium Chloride Carbon Dioxide Anion Gap BUN Creatinine Estim Creat Clear Calc Estimated GFR POC Glucose 136 H Random Glucose Calcium Total Bilirubin Direct Bilirubin AST ALT Alkaline Phosphatase Ammonia Total Protein Albumin Valproic Acid Carbamazepine COVID-19 (ANIL) COVID-19 Clin Com Medications Medications Current Medications Acetaminophen (Acetaminophen 325 Mg Tablet) 650 mg PO Q6H PRN PRN Reason: Headache/Pain Mild Scale (1-3) Al Hydroxide/Mg Hydroxide (Magnesium Hydrox/Alum Hydrox 30 Ml Oral.Susp) 30 ml PO Q6H PRN PRN Reason: Heartburn/Nausea Last Admin: 01/11/23 12:56 Dose: 30 ml Amlodipine Besylate (Amlodipine Besylate 5 Mg Tablet) 5 mg PO DAILY BERNARDA; Protocol Last Admin: 01/12/23 08:11 Dose: 5 mg Aspirin (Aspirin 81 Mg Tab.Chew) 81 mg PO DAILY [facility]ARDA Last Admin: 01/12/23 08:11 Dose: 81 mg Atorvastatin Calcium (Atorvastatin Calcium 40 Mg Tablet) 40 mg PO BEDTIME [facility] Last Admin: 01/09/23 21:15 Dose: 40 mg Benztropine Mesylate (Benztropine Mesylate 1 Mg Tablet) 1 mg PO BID [facility] Last Admin: 01/12/23 08:10 Dose: 1 mg Carbamazepine (Carbamazepine Er 200 Mg Tab.Er.12h) 400 mg PO BEDTIME [facility] Last Admin: 01/11/23 21:42 Dose: 400 mg Divalproex Sodium (Divalproex Sodium Er 500 Mg Tab.Er.24h) 500 mg PO BEDTIME [facility] Last Admin: 01/11/23 21:42 Dose: 250 mg Furosemide (Furosemide 20 Mg Tablet) 20 mg PO DAILY [facility]ERNARDA; Protocol Last Admin: 01/12/23 08:10 Dose: 20 mg Hydroxyzine HCl (Hydroxyzine Hcl 25 Mg Tablet) 25 mg PO Q6H PRN PRN Reason: Anxiety Last Admin: 11/24/23 22:15 Dose: 25 mg Lorazepam (Lorazepam 0.5 Mg Tablet) 0.5 mg PO BEDTIME [facility] Last Admin: 01/11/23 21:44 Dose: 0.5 mg Magnesium Hydroxide (Milk Of Magnesia 30 Ml Oral.Susp) 30 ml PO DAILY PRN PRN Reason: Constipation Last Admin: 01/11/23 12:28 Dose: 30 ml Magnesium Oxide (Magnesium Oxide 400 Mg Tablet) 400 mg PO DAILY [facility] Last Admin: 01/12/23 08:10 Dose: 400 mg Metoprolol Succinate (Metoprolol Succinate Er 25 Mg Tab.Er.24h) 25 mg PO DAILY [facility]; Protocol Last Admin: 01/12/23 08:11 Dose: 25 mg Pt Own (Dulaglutide ([Trulicity] 0.75 Mg)) 0.75 mg SUBCUT Fr@0900 [facility] Last Admin: 01/09/23 11:19 Dose: 0.75 mg Quetiapine Fumarate (Quetiapine Fumarate 400 Mg Tablet) 400 mg PO BEDTIME [facility] Last Admin: 01/11/23 21:44 Dose: 400 mg Sodium Chloride (Sodium Chloride 0.65 % Nasal 44 Ml Sprbtl) 1 spray NOSTRIL-B Q1H PRN PRN Reason: Nasal Congestion Last Admin: 01/10/23 18:02 Dose: 1 spray Thyroid (Thyroid,Pork 30 Mg Tablet) 120 mg PO DAILY@0630 [facility] Last Admin: 01/12/23 06:54 Dose: 120 mg Trazodone HCl (Trazodone Hcl 50 Mg Tablet) 50 mg PO BEDTIME MRX1 PRN PRN Reason: Insomnia Last Admin: 01/04/23 20:51 Dose: 50 mg Trazodone HCl (Trazodone Hcl 100 Mg Tablet) 200 mg PO BEDTIME [facility] Last Admin: 01/11/23 21:44 Dose: 200 mg Allergies Allergies Allergy/AdvReac Type Severity Reaction Status Date / Time amoxicillin Allergy Unknown Uncoded 04/30/18 00:00 Pt states no food allergy Allergy Unknown Uncoded 04/30/18 00:00 Assessment & Plan Assessment & Plan (1) Bipolar affective disorder, manic, severe, with psychotic behavior: Status: Acute Code(s): F31.2 - Bipolar disorder, current episode manic severe with psychotic features Assessment and Plan: R/o schizoaffective (2) PTSD (post-traumatic stress disorder): Status: Acute Code(s): F43.10 - Post-traumatic stress disorder, unspecified Plan Patient is a 62-year-old female with history of bipolar disorder and PTSD presents for burgeoning manic symptoms in the face of being triggered by PTSD symptoms. Patient reports that she was overall doing well current medication regimen however she went back to therapy, got triggered and started becoming manic, not sleeping, having auditory hallucinations, tactile hallucinations of metered pulsing throughout her body and starting to have paranoid delusions about metalurgy in her brain, controlling her mind... Sex trafficking infiltrating her phone. Patient self presented to the hospital. Denies any SI or HI. It tolerates reality testing well and wants help with medication management. Manic episode and psychotic symptoms. Discussed medication management. Patient has had numerous psychotropic medication trials. Agrees to either increase Tegretol, restart Depakote (stopped since wt gain) and/or Seroquel -of note, Depakote added to carbamazepine may result in reduce concentration of Depakote then otherwise expected Will increase carbamazepine at this time since she is already on it and it has been effective, and has not caused weight gain; patient wants to avoid if possible, side effect risks of weight gain and TD (which patient already has some of) 01/05?patient?seems?to?be?a?bit?more?manic,?with?delusional?thinking;?will?wait?for?lab?draws?before?making?other?medication?changes Discussed?case?with?outpatient?provider?who?said?patient?has?Tegretol?level?was?around?9.6?back?in?November? Patient's?brother?says?patient?often?stops?taking?her?medication?and?ends?up?hospitalized 01/06?patient?manic,?despite?therapeutic?level?of?Tegretol;?patient?and?process description writer?discussed?medication?management,?risks/side?effects And?she?agrees?to?go?back?on?Depakote.??Hopefully?less?than?before?given?that?she?is?now?also?on?Tegretol Retracted?her?3?day?notice and signed another one Discussed?blood?pressure?and?at?home?she?was?taking?amlodipine?2.5?mg.??Given?that?she?was?taking?less?than Prescribed?which?is?5?mg?which?was?started?here?on?the?unit,?will?leave?it?current?dose?of?5?mg?for?now And?give?it?more?time?to?become?effective 01/07: Patient presents guarded and brief during 1:1. Pt stated, I'm doing okay. I'm tired. I showered, did laundry and slept well . Patient reports she feels the Depakote is making her tired. denies SI/HI/VH/AH. 01/08 rambling about past events which are unclear how much is based in reality verse delusion; she talks about having sent a letter to the [employer], the [employer] influencing her... -she vacillates between agreeing that she has some delusions verses believing delusions are real. Still she believes she needs more medication help and agrees to increasing Depakote further -agrees to retract 3 day and stay longer 01/09 Patient much more calm today; not talking about delusional things at all; sleeping better. Last night patient only took Tegretol 200 mg rather than 400 mg which was ordered. Today she Had some questions about medications and process description writer reviewed regimen, risks/side effects versus benefits and patient agreed to continue with Tegretol 400 mg and Depakote 500 mg, agreeing that she wants to keep the Depakote as low as possible and augment mood stability with Tegretol, rather than going back to just being on Depakote which caused weight gain. 01/10: Continue Trazodone Hold Lipitor this evening-pt believes it caused her heart pounding last evening. 01/11: Decrease Trazodone to 200 mg hs Continue with Lipitor hold- no sx heart pounding-prefers Crestor which she has at home. Consider Seroqeul increase or possible augment to help with clarification of thought process. Increased delusional content today. 01/12 Patient reports she is doing better, mood is good. She accidentally insisted on taking Depakote 250 last night, saying she had thought that was the appropriate dose, although she had been taking 500 mg for several nights prior. Patient says that she will continue with 500 mg. She wants however to have a lower dose of trazodone, back to 200 mg saying that she got some unusual dreams last night and wonders if it might be due to this medication. She feels like she is doing better and is overall sleeping. Her 3 days up tomorrow and she wants to discharge home, feeling she is pretty much back to her regular self. Family Development Extension Specialist discussed case with BAMBI Tyler mood knows patient from prior admissions, covered her this weekend and agrees the patient is at baseline. Discussed outpatient providers and patient will stick with her current psychiatric provider. Discussed attending partial day program with which patient wants to proceed -Patient is at baseline; 3 day notice is coming due. Good mood, no AVH, patient feeling ready to return home and wanting discharge. She is not in imminent risk for harm to self or others and able to take care of herself in the community. Patient's so presents whenever feeling unstable. Request for discharge honored. Plan: 3 day Q 15 minute checks continue Depakote?ER?500?mg?q.h.s. DC?Tegretol ER 200 mg daily Continue Tegretol extended release 400 mg bedtime Continue Seroquel 400 mg q.h.s. (increased last week from 300 mg) Lower trazodone to 200 mg q.h.s. at patient's request Patient educated on: diagnosis, medication risk/benefits and therapeutic strategies Informed Consent: understands Reason for continued inpatient stay Substantial Risk for: stable for discharge Time Spent With Patient Time: Total time managing care of this patient today ____ minutes.
[2023-01-12 11:40] LABS: COVID-19 Test Negative (Negative); IDNOW Serial# 9DB6401D
[2023-01-12 18:00] VITALS: BP 137/75; PULSE 96; RESP 18; TEMP 36.4; O2SAT 95
[2023-01-12] MEDS: traZODone HCL 100 MG TABLET 200 MG PO (20:28)
[2023-01-12] MEDS: Divalproex Sodium ER 500 MG TAB.ER.24H PO (20:29)
[2023-01-12] MEDS: LORazepam 0.5 MG TABLET PO (20:29)
[2023-01-12] MEDS: QUEtiapine Fumarate 400 MG TABLET PO (20:29)
[2023-01-12] MEDS: carBAMazepine ER 200 MG TAB.ER.12H 400 MG PO (20:29)
[2023-01-13] MEDS: Thyroid,Pork 30 MG TABLET 120 MG PO (06:18)
[2023-01-13] MEDS: Furosemide 20 MG TABLET PO (08:36)
[2023-01-13] MEDS: Magnesium Oxide 400 MG TABLET PO (08:37)
[2023-01-13] MEDS: Benztropine Mesylate 1 MG TABLET PO (08:37)
[2023-01-13] MEDS: Aspirin 81 MG TAB.CHEW PO (08:37)
[2023-01-13] MEDS: amLODIPine Besylate 5 MG TABLET PO (08:37)
[2023-01-13] MEDS: Metoprolol Succinate ER 25 MG TAB.ER.24H PO (08:37)
[2023-01-13 08:56] LABS: Glucose, Whole Blood 130 mg/dL (60-115)
[2023-01-13 09:08] VITALS: BP 124/65; PULSE 98; RESP 16; TEMP 36.9; O2SAT 98
--- NOTE | 2023-01-13 09:56 | PM.PSYDC ---
DS: Providers Provider Date of Service: 01/13/23 Date of admission: 01/01/23 19:02 Date of discharge: 01/13/23 Primary care physician: Unknown Physician Attending physician on admission: Sony Orellana Attending physician on discharge: Sony Orellana DS: Diagnosis Discharge Diagnosis (1) Bipolar affective disorder, manic, severe, with psychotic behavior: Status: Acute (2) PTSD (post-traumatic stress disorder): Status: Acute DS: Medications Discharge Medications Home Medications: Home Medications Medication Instructions Recorded Confirmed amlodipine 2.5 mg tablet 5 mg PO DAILY 01/01/23 01/01/23 dulaglutide 1.5 mg/0.5 mL 0.75 mg subcut QWEEK 01/01/23 01/02/23 subcutaneous pen injector (Trulicity) quetiapine 300 mg tablet 400 mg PO BEDTIME 01/01/23 01/01/23 trazodone 100 mg tablet 250 mg PO BEDTIME 01/01/23 01/01/23 Previous Rx's Medication Instructions Recorded aspirin 81 mg chewable tablet 81 mg PO DAILY #30 tabs 10/14/22 benztropine 1 mg tablet 1 mg PO BID #60 tabs 10/14/22 carbamazepine 200 mg 400 mg (2 x 200 mg) PO BEDTIME #60 10/14/22 tablet,extended release,12 hr tabs furosemide 20 mg tablet 20 mg PO DAILY #30 tabs 10/14/22 magnesium oxide 400 mg (241.3 mg 400 mg PO DAILY #30 tabs 10/14/22 magnesium) tablet metoprolol succinate 25 mg 25 mg PO DAILY #30 tabs 10/14/22 tablet,extended release 24 hr rosuvastatin 10 mg tablet 10 mg PO BEDTIME #30 tabs 10/14/22 thyroid (pork) 120 mg tablet 120 mg PO DAILY #30 tabs 10/14/22 ([place] Thyroid) divalproex 500 mg tablet,extended 500 mg PO BEDTIME 30 days #30 tabs 01/13/23 release 24 hr lorazepam 0.5 mg tablet 0.5 mg PO BEDTIME PRN anxiety 30 01/13/23 days #30 tabs Mental Status Exam Mental Status Exam Narrative: Pt is alert and oriented; behavior is cooperative, much more calm; patient is not in distress; dressed in casual attire and adequately groomed; mood is described as good and affect, congruent, calm; eye contact appropriate; Speech no longer pressured or verbose but normal rate, volume, prosody; no psychomotor agitation/retardation present; thought process is goal directed and more linear; Thought content is on treatment, discharge and intermittently on history of trauma; otherwise pertinent to relevant topics; no delusional/paranoid ideations expressed; denies any SI/HI. No AVH; Patients insight and judgment mildly impaired but at baseline and adequate. Data Data Completed and Pending Completed studies during hospitalization [Text1]: 01/06/23 01/06/23 01/07/23 08:58 17:10 08:23 WBC 11.3 H RBC 4.17 L Hgb 13.0 Hct 39.3 MCV 94.2 MCH 31.2 MCHC 33.1 RDW 13.9 Plt Count 192 MPV 10.7 Immature Gran % (Auto) 0.6 H Neut % (Auto) 56.4 Lymph % (Auto) 33.7 [place] % (Auto) 6.9 Eos % (Auto) 2.0 Baso % (Auto) 0.4 Lymph # (Auto) 3.8 [place] # (Auto) 0.8 Eos # (Auto) 0.2 Baso # (Auto) 0.0 Abs Immat Gran (auto) 0.07 H Absolute Neuts (auto) 6.4 Absolute Nucleated RBC 0.030 H Nucleated RBC % (auto) 0.3 H Sodium 138 Potassium 4.1 Chloride 101 Carbon Dioxide 30 H Anion Gap 11 L BUN 14 Creatinine 0.71 Estim Creat Clear Calc 91.9 Estimated GFR > 60 POC Glucose 112 Random Glucose 156 H Calcium 9.6 Total Bilirubin 0.2 Direct Bilirubin < 0.2 AST 24 ALT 31 Alkaline Phosphatase 87 Ammonia Total Protein 7.4 Albumin 4.3 Valproic Acid Carbamazepine 9.6 COVID-19 (ANIL) Negative COVID-19 Clin Com See Note 01/08/23 01/08/23 01/09/23 08:59 13:10 08:03 WBC RBC Hgb Hct MCV MCH MCHC RDW Plt Count MPV Immature Gran % (Auto) Neut % (Auto) Lymph % (Auto) [place] % (Auto) Eos % (Auto) Baso % (Auto) Lymph # (Auto) [place] # (Auto) Eos # (Auto) Baso # (Auto) Abs Immat Gran (auto) Absolute Neuts (auto) Absolute Nucleated RBC Nucleated RBC % (auto) Sodium Potassium Chloride Carbon Dioxide Anion Gap BUN Creatinine Estim Creat Clear Calc Estimated GFR POC Glucose 144 H 119 H Random Glucose Calcium Total Bilirubin Direct Bilirubin AST ALT Alkaline Phosphatase Ammonia Total Protein Albumin Valproic Acid Carbamazepine COVID-19 (ANIL) Negative COVID-19 Clin Com See Note 01/10/23 01/10/23 01/10/23 07:40 08:20 11:20 WBC 9.8 RBC 3.80 L Hgb 12.0 Hct 36.7 L MCV 96.6 MCH 31.6 MCHC 32.7 RDW 14.1 Plt Count 176 MPV 10.5 Immature Gran % (Auto) 0.8 H Neut % (Auto) 48.1 Lymph % (Auto) 41.3 H [place] % (Auto) 7.1 Eos % (Auto) 2.2 Baso % (Auto) 0.5 Lymph # (Auto) 4.1 [place] # (Auto) 0.7 Eos # (Auto) 0.2 Baso # (Auto) 0.1 Abs Immat Gran (auto) 0.08 H Absolute Neuts (auto) 4.7 Absolute Nucleated RBC 0.030 H Nucleated RBC % (auto) 0.3 H Sodium Potassium Chloride Carbon Dioxide Anion Gap BUN Creatinine Estim Creat Clear Calc Estimated GFR POC Glucose 115 Random Glucose Calcium Total Bilirubin Direct Bilirubin AST ALT Alkaline Phosphatase Ammonia Total Protein Albumin Valproic Acid Carbamazepine COVID-19 (ANIL) Negative COVID-[employer] Clin Com See Note 01/11/23 01/11/23 01/12/23 06:58 07:56 08:43 WBC RBC Hgb Hct MCV MCH MCHC RDW Plt Count MPV Immature Gran % (Auto) Neut % (Auto) Lymph % (Auto) [place] % (Auto) Eos % (Auto) Baso % (Auto) Lymph # (Auto) [place] # (Auto) Eos # (Auto) Baso # (Auto) Abs Immat Gran (auto) Absolute Neuts (auto) Absolute Nucleated RBC Nucleated RBC % (auto) Sodium 142 Potassium 4.6 Chloride 105 Carbon Dioxide 28 Anion Gap 14 BUN 13 Creatinine 0.65 Estim Creat Clear Calc 100.4 Estimated GFR > 60 POC Glucose 111 136 H Random Glucose 115 Calcium 10.0 Total Bilirubin 0.3 Direct Bilirubin 0.1 AST 19 ALT 26 Alkaline Phosphatase 73 Ammonia 33 Total Protein 6.5 Albumin 3.8 Valproic Acid 20.5 L Carbamazepine 7.4 COVID-19 (ANIL) COVID-19 Clin Com 01/12/23 01/13/23 11:10 08:52 WBC RBC Hgb Hct MCV MCH MCHC RDW Plt Count MPV Immature Gran % (Auto) Neut % (Auto) Lymph % (Auto) [place] % (Auto) Eos % (Auto) Baso % (Auto) Lymph # (Auto) [place] # (Auto) Eos # (Auto) Baso # (Auto) Abs Immat Gran (auto) Absolute Neuts (auto) Absolute Nucleated RBC Nucleated RBC % (auto) Sodium Potassium Chloride Carbon Dioxide Anion Gap BUN Creatinine Estim Creat Clear Calc Estimated GFR POC Glucose 130 H Random Glucose Calcium Total Bilirubin Direct Bilirubin AST ALT Alkaline Phosphatase Ammonia Total Protein Albumin Valproic Acid Carbamazepine COVID-19 (ANIL) Negative COVID-19 Clin Com See Note DS: Summary Hospital Course Hospital Course: Patient is a 62-year-old female with history of bipolar disorder and PTSD presents for burgeoning manic symptoms in the face of being triggered by PTSD symptoms. Patient reports that she was overall doing well current medication regimen however she went back to therapy, got triggered and started becoming manic, not sleeping, having auditory hallucinations, tactile hallucinations of metered pulsing throughout her body and starting to have paranoid delusions about metalurgy in her brain, controlling her mind... Sex trafficking infiltrating her phone. Patient self presented to the hospital. Denies any SI or HI. It tolerates reality testing well and wants help with medication management. Manic episode and psychotic symptoms. Hospital course: On admission patient was hypomanic/manic but pleasant, cooperative and friendly. Discussed medication management. Patient has had numerous psychotropic medication trials. Agrees to either increase Tegretol, restart Depakote (stopped since wt gain) and/or Seroquel -of note, Depakote added to carbamazepine may result in reduce concentration of Depakote then otherwise expected Will increase carbamazepine at this time since she is already on it and it has been effective, and has not caused weight gain; patient wants to avoid if possible, side effect risks of weight gain and TD (which patient already has some of) 01/05?patient?seems?to?be?a?bit?more?manic,?with?delusional?thinking;?will?wait?for?lab?draws?before?making?other?medication?changes Discussed?case?with?outpatient?provider?who?said?patient?has?Tegretol?level?was?around?9.6?back?in?November? Patient's?brother?says?patient?often?stops?taking?her?medication?and?ends?up?hospitalized 01/06?patient?manic,?despite?therapeutic?level?of?Tegretol;?patient?and?television writer?discussed?medication?management,?risks/side?effects And?she?agrees?to?go?back?on?Depakote.??Hopefully?less?than?before?given?that?she?is?now?also?on?Tegretol Retracted?her?3?day?notice and signed another one Discussed?blood?pressure?and?at?home?she?was?taking?amlodipine?2.5?mg.??Given?that?she?was?taking?less?than Prescribed?which?is?5?mg?which?was?started?here?on?the?unit,?will?leave?it?current?dose?of?5?mg?for?now And?give?it?more?time?to?become?effective 01/07: Patient presents guarded and brief during 1:1. Pt stated, I'm doing okay. I'm tired. I showered, did laundry and slept well . Patient reports she feels the Depakote is making her tired. denies SI/HI/VH/AH. 01/08 rambling about past events which are unclear how much is based in reality verse delusion; she talks about having sent a letter to the [employer], the [employer] influencing her... -she vacillates between agreeing that she has some delusions verses believing delusions are real. Still she believes she needs more medication help and agrees to increasing Depakote further -agrees to retract 3 day and stay longer 01/09 Patient much more calm today; not talking about delusional things at all; sleeping better. Last night patient only took Tegretol 200 mg rather than 400 mg which was ordered. Today she Had some questions about medications and television writer reviewed regimen, risks/side effects versus benefits and patient agreed to continue with Tegretol 400 mg and Depakote 500 mg, agreeing that she wants to keep the Depakote as low as possible and augment mood stability with Tegretol, rather than going back to just being on Depakote which caused weight gain. 01/10: Continue Trazodone Hold Lipitor this evening-pt believes it caused her heart pounding last evening. 01/11: Decrease Trazodone to 200 mg hs Continue with Lipitor hold- no sx heart pounding-prefers Crestor which she has at home. Consider Seroqeul increase or possible augment to help with clarification of thought process. Increased delusional content today. 01/12: Patient reports she is doing better, mood is good. She accidentally insisted on taking Depakote 250 last night, saying she had thought that was the appropriate dose, although she had been taking 500 mg for several nights prior. Patient says that she will continue with 500 mg. She wants however to have a lower dose of trazodone, back to 200 mg saying that she got some unusual dreams last night and wonders if it might be due to this medication. She feels like she is doing better and is overall sleeping. Her 3 days up tomorrow and she wants to discharge home, feeling she is pretty much back to her regular self. Statistics Teacher discussed case with BAMBI em knows patient from prior admissions, covered her this weekend and agrees the patient is at baseline. Discussed outpatient providers and patient will stick with her current psychiatric provider. Discussed attending partial day program with which patient wants to proceed -Patient is at baseline; 3 day notice is coming due. Good mood, no AVH, patient feeling ready to return home and wanting discharge. She is not in imminent risk for harm to self or others and able to take care of herself in the community. Patient's so presents whenever feeling unstable. Request for discharge honored. Meds: continue Depakote?ER?500?mg?q.h.s. Continue Tegretol extended release 400 mg bedtime Continue Seroquel 400 mg q.h.s. (increased last week from 300 mg) Lowered trazodone to 200 mg q.h.s. at patient's request Time spent discussing smoking cessation with patient: 3 to 10 minutes Status at Discharge Functional status at discharge: independent ambulation Overall status at discharge: patient is progressing back to baseline Time Spent with Patient Time attestation: Total time managing care of this patient today ____ minutes. Time spent: Less than 30 minutes Discharge Plan Discharge Anticipated Discharge Date/Time: 01/13/23 11:00 Patient Disposition: Home, Self-Care Discharge Diagnosis: schizoaffective disorder, Bipolar type, in partial remission Referrals: [facility] Psychiatry henna Williamson [Other] - 01/21/23 2:30 pm [facility] [place] Partial Hospitalization Intake [Other] - 01/14/23 11:00 am (Park in the lower lot or lot C and walk toward the red [employer] building next to the main hospital building. Look for the sign that says Behavioral Health and follow signs. It is next to the red [email or web address] resources trailer. ) Efrem Blandon MD [Physician] - 01/26/23 8:00 am (IN OFFICE) Discharge Medications: Continued amlodipine 2.5 mg tablet 5 mg PO DAILY Trulicity 1.5 mg/0.5 mL pen injector 0.75 mg subcut QWEEK aspirin 81 mg Tablet,Chewable 81 mg PO DAILY Qty: 30 0RF magnesium oxide 400 mg (241.3 mg magnesium) Tablet 400 mg PO DAILY Qty: 30 0RF furosemide 20 mg tablet 20 mg PO DAILY Qty: 30 0RF metoprolol succinate 25 mg tablet extended release 24 hr 25 mg PO DAILY Qty: 30 0RF rosuvastatin 10 mg tablet 10 mg PO BEDTIME Qty: 30 0RF thyroid (pork) [[place] Thyroid] 120 mg tablet 120 mg PO DAILY Qty: 30 0RF Discontinued lorazepam 0.5 mg tablet 0.5 mg PO BEDTIME carbamazepine 200 mg Tablet Extended Release 12 Hr 400 mg PO BEDTIME Qty: 60 0RF No Action carbamazepine 400 mg tablet extended release 12 hr 400 mg PO BEDTIME 15 Days Qty: 15 0RF lorazepam 0.5 mg tablet 0.5 mg PO BEDTIME PRN (Reason: anxiety) 15 Days Qty: 15 0RF carbamazepine 200 mg Tablet Extended Release 12 Hr 200 mg PO .DAILY IN AM 15 Days Qty: 15 0RF benztropine 1 mg tablet 1 mg PO DAILY 15 Days Qty: 15 0RF topiramate 50 mg tablet 50 - 100 mg PO BEDTIME 15 Days Qty: 30 0RF quetiapine 400 mg tablet extended release 24 hr 400 mg PO QPM 15 Days Qty: 15 0RF Rexulti 1 mg tablet 1 mg PO BID 90 Days Qty: 180 0RF quetiapine 100 mg tablet See Rx Instructions .ROUTE .COMPLEX 15 Days Qty: 30 0RF Rx Instructions: take one tablet po daily in AM; take one tablet po daily PRN agitation trazodone 50 mg tablet 50 - 100 mg PO BEDTIME PRN (Reason: sleep) Qty: 30 0RF Discharge Orders: Discharge Order (Routine); Ordered 01/13/23 Ordered By: Sony Orellana Diet: Diabetic diet Activity on Discharge: As tolerated Stand Alone Forms: Patient Portal Discharge page, Community Support Care Plan Goals: Maintain mood and safe behaviors Take medications as prescribed Practice coping skills Continue with outpatient providers and reach out to them as needed Health Concerns: Mood stability and behaviors Hx of Cholesterol Diabetes Hx of Hypertension Plan of Treatment: Follow up with your PCP, psychiatric provider and other outpatient providers regarding above concerns Take medications as prescribed Assessment: Risk assessment at time of discharge:? Patient was interviewed prior to discharge and found to be fully oriented and without any SI or HI. Patient has improved insight and judgment and wants to continue treatment. Patient is not in imminent risk of harm to self or others and has a safety plan that includes presenting to the closest ER or calling 911 if feeling unsafe.? Patient has been observed closely by nursing and unit staff throughout admission; patient has not engaged in any behaviors that suggest dangerousness to self or others and has demonstrated appropriate behaviors and impulse control Discharge Date/Time: 01/13/23 11:00
== END 2023-01-13 11:00 | disposition home or self-care (01) | DRG 885 ==
LOC: HO.ED 18:10 → HO.PM5 19:04
PROVIDERS: Clinical Nurse Specialist Psychiatric/Mental Health, Adult; Physician Assistant Medical; Admitting Provider Psychiatry & Neurology Psychiatry; Emergency Provider Emergency Medicine; Visit Provider Psychiatry & Neurology Psychiatry
DX: F31.2 Bipolar disorder, current episode manic severe with psychotic features (principal); E78.5 Hyperlipidemia, unspecified; F43.10 Post-traumatic stress disorder, unspecified; Z20.822 Contact with and (suspected) exposure to COVID-19; Z79.4 Long term (current) use of insulin; Z79.82 Long term (current) use of aspirin; Z79.890 Hormone replacement therapy; Z79.899 Other long term (current) drug therapy
CPT/HCPCS: 36415; 80048; 80053; 80061; 80076; 80143; 80156; 80164; 80179; 80307; 81001; 81003; 82140; 82947; 83036; 85025; 87635; 93005; 99285; S9485

== ENCOUNTER → 2023-01-01 19:02 | Outpatient (BNV) | payer MEDICARE, BC, SELFPAY | PROVIDERS: Admitting Provider Psychiatry & Neurology Psychiatry; Emergency Provider Emergency Medicine; Visit Provider Psychiatry & Neurology Psychiatry | DX: F31.2 Bipolar disorder, current episode manic severe with psychotic features (principal); F43.11 Post-traumatic stress disorder, acute | CPT/HCPCS: 90792; 99231; 99232; 99238 ==

== ENCOUNTER → 2023-01-16 13:30 | Outpatient (BNV) | payer MEDICARE, BC, SELFPAY | PROVIDERS: Visit Provider Psychiatry & Neurology Psychiatry | DX: F31.2 Bipolar disorder, current episode manic severe with psychotic features (principal); F43.11 Post-traumatic stress disorder, acute | CPT/HCPCS: 90792; 99213; 99214; 99232 ==

== ENCOUNTER 2023-01-20 08:41 | Outpatient (REF) | payer MEDICARE, BC, SELFPAY ==
[2023-01-20 09:25] LABS: Estimated Average Glucose 126 mg/dL; Hemoglobin A1C 151.9204 umol/L
[2023-01-20 09:39] LABS: Carbamazepine Tegretol 11.2 mcg/mL (5.0-12.0)
== END 2023-01-20 08:42 | disposition home or self-care (01) ==
LOC: HO.LAB 08:41
PROVIDERS: PCP Physician Assistant; Visit Provider Psychiatry & Neurology Psychiatry
DX: F31.9 Bipolar disorder, unspecified (principal)
CPT/HCPCS: 36415; 80156; 83036

== ENCOUNTER 2023-01-29 13:30 | Outpatient (RCR) | payer MEDICARE, BC, SELFPAY ==
[2023-01-15 12:59] VITALS: BP 144/75; PULSE 99; TEMP 36.8
[2023-01-15 13:02] VITALS: BMI 37.4
--- NOTE | 2023-01-15 13:59 | PC.ADMIT ---
Patient is a 62 year old female who was referred to [facility] by [facility] inpatient behavioral health unit where she was admitted d/t increased paranoid delusions and not sleeping. She has a dx of Bipolar disorder manic, severe with psychotic features and PTSD. Per Integrative Assessment patient called for help as she was not sleeping and having paranoid delusions reporting the [employer] sensors are monitoring her. According to inpatient records patient has a past history of multiple admissions since 2021 and 12 ED evaluations since 2021 with 8 inpatient hospitalizations. She stayed 2 months at [facility] discharged in May 2022 and admitted to [facility] afterwards. She lives alone. She reports her supports are herself and psychiatrist however she states she wants a new psychiatrist as she believes he does not know what he is doing. Patient is alert and oriented x4. Calm and cooperative. Presented with some paranoid delusions stating, I heard Nadira's voice and Dr luis clifton and Luke and they are hiding information. They won't see me I know too much what is going on with the federal government and the and they hurt my family. Phone is rigged but I still use it . Patient denied AH or VH. Denied SI or HI. She is cooperative. Reports sleep has improved sleeping 8-9 hours a night. Medication reconciled with patient and inpatient records. She reports taking medication as prescribed. Working with Dr Hickey regarding some medication changes as she does not like to be on Depakote d/t weight gain. She is happy with the medication changes. She denied any use of substances.
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
--- NOTE | 2023-01-15 18:54 | HO.PHP ---
The client's case was reviewed and opened in treatment team.
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
--- NOTE | 2023-01-19 21:50 | HO.PHPPROGNO ---
Subjective Subjective Date of Service: 01/19/23 Reason For Visit: PTSD,bipolar Interim History: Perseverating on calling [facility] to change locks on the doors. Initially difficult to redirect. Complains of dizziness with the Thorazine when she wakes up to use bathroom in the middle of the night. She is okay to drive here in the morning, but does not feel she could tolerate an increase. She is now sleeping 6-8 hours, she feels she is less manic, but is still noted to be quite irritable and pressured today. She states she followed through with medication changes including increase of Seroquel to 600 last night (400XR and 200) She insists on lab work to check levels of Tegretol done now, but this would need to be done in the AM after holding dose until after labs drawn. She can take 100 mg in the AM tomorrow as tolerated to target agitation, as she has been more difficult to manage in groups. She has no insight into delusions which are felt to be well-established, and not certain this is best milieu for her as she responds quite defensively to challenges/reality testing in regards to delusional content specifically. She reports hearing voices when she is home (although denied hearing any last night) nonetheless she adds that these voices are real and are not hallucinations as previous treaters have wrongly ascertained. Mood is fine . She denies SI or HI. She denies feeling irritable but still presents as irritable and manic, and preoccupied with the abuse she is experiencing. Medication Compliance: Yes Side effects from medications: Yes (as noted above) Attending Groups: Yes Mental Status Exam Mental Status Exam Narrative: Alert and oriented, in no acute distress. No tics or tremors. Agitated. Eye contact. Mood is fine . Affect is irritable, expansive.? Pressured speech, but redirectable. Thought process is racing, perseverative. No FOI/MANOJ. Thought content is ruminative, +paranoia +delusional content, does not appear to be internally preoccupied. No SI or HI upon inquiry. Cognition grossly intact. Sensorium clear. Insight poor.. Judgment fair but adequate. Diagnostics Vital Signs (24Hr): BMI result Body Mass Index 37.4 Assessment & Plan Assessment & Plan (1) Bipolar affective disorder, manic, severe, with psychotic behavior: Status: Acute Code(s): F31.2 - Bipolar disorder, current episode manic severe with psychotic features (2) Delusional disorder, persecutory type: Status: Acute Code(s): F22 - Delusional disorders Plan continue Tegretol XL 200/400 CBZ level, hold AM Tegretol until labs drawn may consider further increase add Seroquel 100 mg in AM continue Seroquel XR 400 mg qHS continue Seroquel 200 mg qHS continue Thorazine 25 mg qhs prn sleep pending start on Rexulti (sent to [facility]) 1 mg qd Patient educated on: diagnosis and medication risk/benefits Guardian/Caregiver educated on: ECT Informed Consent: understands Reason for contiued partial hosp. stay Substantial Risk for: inability to function, rapid decompensation and med/psych decompensation Certification I certify that partial hospital treatment is medically necessary due to the symptoms and problems resulting from the patient's mental illness and the failure to treat the patient at the partial hospital level of care would likely result in the patient requiring inpatient psychiatric care which could not be prevented at a less intensive level of care. Total time managing care of this patient today __30__ minutes. Discharge Plan Discharge Attending provider: Anette Hickey Medications: New chlorpromazine 50 mg tablet 25 - 50 mg PO .qhs Qty: 20 0RF carbamazepine 400 mg tablet extended release 12 hr 400 mg PO BID Qty: 60 0RF quetiapine 400 mg tablet extended release 24 hr 400 mg PO QPM Qty: 30 0RF quetiapine 200 mg tablet 200 mg PO BID Qty: 60 0RF Rx Instructions: take 1 tablet po daily at night (along with quetiapine 400 mg XR); take 1/2 - 1 tablet po daily PRN agitation, anxiety Continued quetiapine 300 mg tablet 400 mg PO BEDTIME amlodipine 2.5 mg tablet 5 mg PO DAILY trazodone 100 mg tablet 250 mg PO BEDTIME Trulicity 1.5 mg/0.5 mL pen injector 0.75 mg subcut QWEEK lorazepam 0.5 mg tablet 0.5 mg PO BEDTIME PRN (Reason: anxiety) 30 Days Qty: 30 0RF aspirin 81 mg Tablet,Chewable 81 mg PO DAILY Qty: 30 0RF magnesium oxide 400 mg (241.3 mg magnesium) Tablet 400 mg PO DAILY Qty: 30 0RF furosemide 20 mg tablet 20 mg PO DAILY Qty: 30 0RF metoprolol succinate 25 mg tablet extended release 24 hr 25 mg PO DAILY Qty: 30 0RF rosuvastatin 10 mg tablet 10 mg PO BEDTIME Qty: 30 0RF thyroid (pork) [[place] Thyroid] 120 mg tablet 120 mg PO DAILY Qty: 30 0RF Changed benztropine 1 mg tablet 1 mg PO DAILY Qty: 60 0RF Rexulti 1 mg tablet 1 mg PO BID 90 Days Qty: 180 0RF No Action carbamazepine 200 mg Tablet Extended Release 12 Hr 400 mg PO BEDTIME 30 Days Qty: 60 0RF
--- NOTE | 2023-01-20 13:37 | PC.NURSE ---
Asked Daily if she was interested in a VNA for medication management. She stated she is not interested at this time as she feels she is doing well managing her medications and also stated when she was in the hospital in the past they tried to get her a VNA however her insurance would not pay for it.
--- NOTE | 2023-01-22 11:07 | PC.NURSE ---
Daily c/o feeling weak on her feet with some lightheadedness. She stated while driving to the program she had to close her R eye as she was having double vision in her R eye. She stated she called her eye doctor and made an appointment. VS BP 114/58 P 88. She is increasing her fluid intake. She reports she is not having double vision in her R eye currently. Stated she slept for 6 hrs last night. She has had some recent medication changes. She is alert and oriented x4. Thoughts are clear. Speech is clear. Reviewed aforementioned information with Dr Hickey who is currently meeting with Daily.
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
--- NOTE | 2023-01-23 13:40 | HO.PHP ---
[facility] staff member met with Daily to provide support around aftercare planning. [facility] staff member and Daily contacted the [facility] and [facility] for psychiatry. [facility] staff also suggested [facility] since Daily is looking for a provider in the [place]. [facility] staff member provided Daily with the intake forms for [facility] so she can complete during Lunch.
--- NOTE | 2023-01-23 13:42 | HO.PHP ---
Daily provided the PHP staff member with the intake paperwork for [facility], in which the PHP Staff member faxed over. PHP staff member is awaiting a call back with a scheduled appointment.
--- NOTE | 2023-01-23 16:29 | HO.PHPPROGNO ---
Subjective Subjective Date of Service: 01/23/23 Reason For Visit: PTSD,bipolar Interim History: Followed up with patient again today as she is still reporting dizziness and had blurred vision on way into the program today. She says her vision is better but still feeling dizzy. She reporteldy again took 2 caps (400 mg) of Tegretol XR, forgetting that she was supposed to return the dose to 200 mg (1 capsule). She pulled out her paper from yesterday where we wrote her changes down. Ths time we lighlighted the change with a highlighter and she assures me she will not forget this time. She also went forward with taking the Seroquel 100 mg this morning, despite already being dizzy. She says she is not concerned about this exacerbating the dizziness and says that yesterday the dizziness had resolved long before the end of the day at [facility]. Nonethless she was advised to be careful with walking (staying near the wall for support). She in fact looks more stable today. She has an appropriately slow gait, but no ataxia appreciated comapred to yesterday. Still she is to notify staff if any symptoms worsen or new symptoms arise. [facility]. VSS this AM BP 138/72 and HR 92. She repotrs feeling calm and feels she is doing well. Denies any irritability, she has been more manageable in groups, less intrusive. Sitll remains quietly delusional, but approrpiate if avoids engagement around delusional or provoking topics. Denies any SI or HI. Will continue to monitor. Mental Status Exam Mental Status Exam Narrative: Alert and oriented, in no acute distress. No tics or tremors. Agitated. Eye contact. Mood is euthymic. Affect is less expansive, less irritable. No lability noted.? Speech, less pressured, more redirectable. Thought process is more organized. No FOI/MANOJ. Thought content is relevant to stressors, more future-oriented, less ruminative, +paranoia +delusional content, does not appear to be internally preoccupied. No SI or HI upon inquiry. Cognition grossly intact. Sensorium clear. Insight poor (regarding delusions) otherwise limited. Judgment fair but adequate. Diagnostics Vital Signs (24Hr): BMI result Body Mass Index 37.4 Assessment & Plan Assessment & Plan (1) Bipolar affective disorder, manic, severe, with psychotic behavior: Status: Acute Code(s): F31.2 - Bipolar disorder, current episode manic severe with psychotic features (2) Delusional disorder, persecutory type: Status: Acute Code(s): F22 - Delusional disorders (3) PTSD (post-traumatic stress disorder): Status: Acute Code(s): F43.10 - Post-traumatic stress disorder, unspecified Plan DECREASE dose of Tegretol XR to 200 mg in AM continue Tegretol XR 400 mg qHS continue Seroquel 100 mg in AM, 100 mg PRN agitation in afternoon or evening. continue Seroquel XR 400 mg start Topemax 25-50 mg qhs continue trazodone 100 mg PRN dosing for now for sleep hold Thorazine 25 mg qhs for now (but will likely discont due to AE) will consider whether an additional 100 mg Seroquel will be needed at night. continue bentropine 0.5 mg qhs Certification I certify that partial hospital treatment is medically necessary due to the symptoms and problems resulting from the patient's mental illness and the failure to treat the patient at the partial hospital level of care would likely result in the patient requiring inpatient psychiatric care which could not be prevented at a less intensive level of care. Total time managing care of this patient today ____ minutes. Discharge Plan Discharge Attending provider: Anette Hickey Medications: New quetiapine 400 mg tablet extended release 24 hr 400 mg PO QPM Qty: 30 0RF quetiapine 200 mg tablet 200 mg PO BID Qty: 60 0RF Rx Instructions: take 1 tablet po daily at night (along with quetiapine 400 mg XR); take 1/2 - 1 tablet po daily PRN agitation, anxiety topiramate 50 mg tablet 50 mg PO BEDTIME Qty: 30 0RF Continued quetiapine 300 mg tablet 400 mg PO BEDTIME amlodipine 2.5 mg tablet 5 mg PO DAILY trazodone 100 mg tablet 250 mg PO BEDTIME Trulicity 1.5 mg/0.5 mL pen injector 0.75 mg subcut QWEEK lorazepam 0.5 mg tablet 0.5 mg PO BEDTIME PRN (Reason: anxiety) 30 Days Qty: 30 0RF aspirin 81 mg Tablet,Chewable 81 mg PO DAILY Qty: 30 0RF magnesium oxide 400 mg (241.3 mg magnesium) Tablet 400 mg PO DAILY Qty: 30 0RF furosemide 20 mg tablet 20 mg PO DAILY Qty: 30 0RF metoprolol succinate 25 mg tablet extended release 24 hr 25 mg PO DAILY Qty: 30 0RF rosuvastatin 10 mg tablet 10 mg PO BEDTIME Qty: 30 0RF thyroid (pork) [[place] Thyroid] 120 mg tablet 120 mg PO DAILY Qty: 30 0RF Changed benztropine 1 mg tablet 1 mg PO DAILY Qty: 60 0RF Rexulti 1 mg tablet 1 mg PO BID 90 Days Qty: 180 0RF Hold Instructions: Resume on 02/06/23. too expensive carbamazepine 400 mg tablet extended release 12 hr 400 mg PO BEDTIME Qty: 60 0RF carbamazepine 200 mg Tablet Extended Release 12 Hr 200 mg PO DAILY 30 Days Qty: 60 0RF chlorpromazine 50 mg tablet 25 - 50 mg PO .qhs PRN (Reason: as directed) Qty: 20 0RF
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
--- NOTE | 2023-01-29 22:16 | P.PNPSP_ITS ---
Subjective Subjective Date of Service: 01/29/23 Reason For Visit: PTSD,bipolar Interim History: Diagnostics the program today. She reports doing well, no particularly complaints today. Remained superficial and appropriate during out brief encounter today Went to weight watchers yesterday. Reconnecting with her group. FInds it helpful. Trying to build more day structure now that her time at [facility] is coming to a close. SHe feels it helps her overall mental health to stay busy and benefits from day structure. Detailed her outing going shopping yesterday. Bought some Sketchers, showed me her sneakers today. No new complaints or concerns. SHe denies any hopelessness or SI. NO thoughts of harming self or others. She finds her medications helpful and expresses need to take them due to Bipolar DIsorder, and recognizes her becca has subsided. SHe continues to have Certification and does no attempt to interact with the [employer]. She also stays off of social media. She has supportive relationships with her brother and sister. She has an appointment on 02/10 at 1:30pm with a new psych provider in [place] with an AUDITING SPECIALIST Rasheeda. She no longer wishes to see Rylan Puckett. She continues on current medication regime including Tegretol XR 600 mg/d (split 200/400), Seroquel 100 effects. Is med complaint. Medication Compliance: Yes Attending Groups: Yes Review of Systems Mental Status Exam Mental Status Exam Narrative: Alert and oriented, in no acute distress. No tics or tremors. Eye contact good. Rx Instructions: pleasant. No irritability or lability noted.? Speech abundant without pressure. trazodone 50 mg tablet stressors, more future-oriented, less ruminative, chronic paranoid and Continued adequate. adequate. Diagnostics Vital Signs (24Hr): BMI result Body Mass Index 37.4 Assessment & Plan Assessment & Plan (1) Bipolar affective disorder, manic, severe, with psychotic behavior: Status: Acute Code(s): F31.2 - Bipolar disorder, current episode manic severe with psychotic features (2) Delusional disorder, persecutory type: Status: Acute Code(s): F22 - Delusional disorders (3) PTSD (post-traumatic stress disorder): Status: Acute Code(s): F43.10 - Post-traumatic stress disorder, unspecified Plan Discharge from [facility] continue current treatment regime Will defer further medication management to oupatient provider New patient appointment with new provider on 02/10 at 1:30 pm Refills sent to pharmacy Patient educated on: diagnosis and medication risk/benefits Informed Consent: understands Reason for contiued partial hosp. stay amlodipine 2.5 mg tablet Certification Trulicity 1.5 mg/0.5 mL pen injector 0.75 mg subcut QWEEK aspirin 81 mg Tablet,Chewable 81 mg PO DAILY Qty: 30 0RF New quetiapine 100 mg tablet See Rx Instructions .ROUTE .COMPLEX 15 Days Qty: 30 0RF Rx Instructions: take one tablet po daily in AM; take one tablet po daily PRN agitation trazodone 50 mg tablet 50 - 100 mg PO BEDTIME PRN (Reason: sleep) Qty: 30 0RF Continued amlodipine 2.5 mg tablet 5 mg PO DAILY Trulicity 1.5 mg/0.5 mL pen injector 0.75 mg subcut QWEEK aspirin 81 mg Tablet,Chewable 81 mg PO DAILY Qty: 30 0RF magnesium oxide 400 mg (241.3 mg magnesium) Tablet 400 mg PO DAILY Qty: 30 0RF furosemide 20 mg tablet 20 mg PO DAILY Qty: 30 0RF metoprolol succinate 25 mg tablet extended release 24 hr 25 mg PO DAILY Qty: 30 0RF rosuvastatin 10 mg tablet 10 mg PO BEDTIME Qty: 30 0RF thyroid (pork) [[place] Thyroid] 120 mg tablet 120 mg PO DAILY Qty: 30 0RF lorazepam 0.5 mg tablet 0.5 mg PO BEDTIME PRN (Reason: anxiety) 15 Days Qty: 15 0RF quetiapine 400 mg tablet extended release 24 hr 400 mg PO QPM 15 Days Qty: 15 0RF Changed carbamazepine 400 mg tablet extended release 12 hr 400 mg PO BEDTIME 15 Days Qty: 15 0RF carbamazepine 200 mg Tablet Extended Release 12 Hr
--- NOTE | 2023-01-29 22:16 | HO.PHPPROGNO ---
Subjective Subjective Date of Service: 01/29/23 Reason For Visit: PTSD,bipolar Interim History: Patient seen for follow-up today. She anticipates being discharged at the end of the program today. She reports doing well, no particularly complaints today. Remained superficial and appropriate during out brief encounter today Went to weight watchers yesterday. Reconnecting with her group. FInds it helpful. Trying to build more day structure now that her time at [facility] is coming to a close. SHe feels it helps her overall mental health to stay busy and benefits from day structure. Detailed her outing going shopping yesterday. Bought some Sketchers, showed me her sneakers today. No new complaints or concerns. SHe denies any hopelessness or SI. NO thoughts of harming self or others. She finds her medications helpful and expresses need to take them due to Bipolar DIsorder, and recognizes her becca has subsided. SHe continues to have no insight in delusional content, but says she is just minding her own business and does no attempt to interact with the [facility]. She also stays off of social media. She has supportive relationships with her brother and sister. She has an appointment on 02/10 at 1:30pm with a new psych provider in [place] with an CLASSIFICATION OFFICER Rasheeda. She no longer wishes to see Rylan Puckett. She continues on current medication regime including Tegretol XR 600 mg/d (split 200/400), Seroquel 100 mg qAM, Seroquel XR 400 mg qHS, topiramate 50-100 mg qhs. Denies any adverse effects. Is med complaint. Medication Compliance: Yes Side effects from medications: No Attending Groups: Yes Review of Systems Acute medical concerns: No Mental Status Exam Mental Status Exam Narrative: Alert and oriented, in no acute distress. No tics or tremors. Eye contact good. Calmer, more cooperative, animated. Mood is euthymic. Affect is subdued, pleasant. No irritability or lability noted.? Speech abundant without pressure. Thought process is more organized. No FOI/MANOJ. Thought content is relevant to stressors, more future-oriented, less ruminative, chronic paranoid and persecutory delusions, describes AH however does not appear to be internally preoccupied. No SI or HI upon inquiry. Cognition grossly intact. Sensorium clear. Insight poor (regarding delusions) otherwise limited. Judgment fair but adequate. Diagnostics Vital Signs (24Hr): BMI result Body Mass Index 37.4 Assessment & Plan Assessment & Plan (1) Bipolar affective disorder, manic, severe, with psychotic behavior: Status: Acute Code(s): F31.2 - Bipolar disorder, current episode manic severe with psychotic features (2) Delusional disorder, persecutory type: Status: Acute Code(s): F22 - Delusional disorders (3) PTSD (post-traumatic stress disorder): Status: Acute Code(s): F43.10 - Post-traumatic stress disorder, unspecified Plan Discharge from [facility] continue current treatment regime Will defer further medication management to oupatient provider New patient appointment with new provider on 02/10 at 1:30 pm Refills sent to pharmacy Patient educated on: diagnosis and medication risk/benefits Informed Consent: understands Reason for contiued partial hosp. stay Substantial Risk for: stable for discharge Certification I certify that partial hospital treatment is medically necessary due to the symptoms and problems resulting from the patient's mental illness and the failure to treat the patient at the partial hospital level of care would likely result in the patient requiring inpatient psychiatric care which could not be prevented at a less intensive level of care. Total time managing care of this patient today _30___ minutes. Discharge Plan Discharge Attending provider: Anette Hickey Medications: New quetiapine 100 mg tablet See Rx Instructions .ROUTE .COMPLEX 15 Days Qty: 30 0RF Rx Instructions: take one tablet po daily in AM; take one tablet po daily PRN agitation trazodone 50 mg tablet 50 - 100 mg PO BEDTIME PRN (Reason: sleep) Qty: 30 0RF Continued amlodipine 2.5 mg tablet 5 mg PO DAILY Trulicity 1.5 mg/0.5 mL pen injector 0.75 mg subcut QWEEK aspirin 81 mg Tablet,Chewable 81 mg PO DAILY Qty: 30 0RF magnesium oxide 400 mg (241.3 mg magnesium) Tablet 400 mg PO DAILY Qty: 30 0RF furosemide 20 mg tablet 20 mg PO DAILY Qty: 30 0RF metoprolol succinate 25 mg tablet extended release 24 hr 25 mg PO DAILY Qty: 30 0RF rosuvastatin 10 mg tablet 10 mg PO BEDTIME Qty: 30 0RF thyroid (pork) [[place] Thyroid] 120 mg tablet 120 mg PO DAILY Qty: 30 0RF lorazepam 0.5 mg tablet 0.5 mg PO BEDTIME PRN (Reason: anxiety) 15 Days Qty: 15 0RF quetiapine 400 mg tablet extended release 24 hr 400 mg PO QPM 15 Days Qty: 15 0RF Changed carbamazepine 400 mg tablet extended release 12 hr 400 mg PO BEDTIME 15 Days Qty: 15 0RF carbamazepine 200 mg Tablet Extended Release 12 Hr 200 mg PO .DAILY IN AM 15 Days Qty: 15 0RF benztropine 1 mg tablet 1 mg PO DAILY 15 Days Qty: 15 0RF topiramate 50 mg tablet 50 - 100 mg PO BEDTIME 15 Days Qty: 30 0RF Rexulti 1 mg tablet 1 mg PO BID 90 Days Qty: 180 0RF Discontinued quetiapine 300 mg tablet 400 mg PO BEDTIME trazodone 100 mg tablet 250 mg PO BEDTIME Stand Alone Forms: Patient Portal Discharge page Patient Education: Bipolar Disorder (DC)
== END 2023-01-29 23:59 | disposition home or self-care (01) ==
LOC: HO.PHPA 13:30
PROVIDERS: Visit Provider Psychiatry & Neurology Psychiatry
DX: F31.2 Bipolar disorder, current episode manic severe with psychotic features (principal); F43.10 Post-traumatic stress disorder, unspecified; Z79.899 Other long term (current) drug therapy
CPT/HCPCS: 90791; 90853

== ENCOUNTER 2023-03-25 11:02 | Inpatient (IN) | payer MEDICARE, BC, SELFPAY ==
[2023-03-25 11:07] VITALS: BP 189/87; PULSE 114; RESP 20; TEMP 36; O2SAT 95; BMI 34.0
--- NOTE | 2023-03-25 11:19 | PC.NURSE ---
Pt brought to pod for treatment, changed into behavioral health attire, hyperverbal, responding well to one step directions and limit setting. Denies SI/HI, reports hx Bipolar 1 non med compliant. Awaiting primary provider eval, aware of plan of care.
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
--- NOTE | 2023-03-25 11:33 | ED.PSYCH ---
HPI - Psych General Chief Complaint: Psychiatric Symptoms Stated Complaint: Mental Issues Time Seen by Provider: 03/25/23 11:19 Source: patient Mode of arrival: ambulatory Limitations: no limitations History of Present Illness HPI Narrative: Patient is a 62-year-old female with history of bipolar disorder, T2 DM presenting to the emergency department with complaint of auditory and visual hallucinations, insomnia, has not been compliant with medications. She denies any suicidal or homicidal ideation. States she would specifically like to be admitted to [place]. She denies any physical complaints. MD complaint: hallucinations Onset (ago): day(s) Duration: intermittent History of same: Yes Context: not taking psychiatric medications Associated symptoms: denies other symptoms Treatments prior to arrival: none Related Data Previous Rx's Medication Instructions Recorded rosuvastatin 10 mg tablet 10 mg PO BEDTIME #30 tabs 10/14/22 benztropine 1 mg tablet 1 mg PO DAILY 15 days #15 tabs 01/29/23 carbamazepine 400 mg 400 mg PO BEDTIME 15 days #15 tabs 01/29/23 tablet,extended release,12 hr lorazepam 0.5 mg tablet 0.5 mg PO BEDTIME PRN anxiety 15 01/29/23 days #15 tabs quetiapine 100 mg tablet See Rx Instructions .Route 01/29/23 .COMPLEX 15 days #30 tabs Allergies Allergy/AdvReac Type Severity Reaction Status Date / Time amoxicillin Allergy Unknown Unknown Uncoded 03/25/23 11:07 Pt states no food allergy Allergy Unknown Unknown Uncoded 03/25/23 11:07 Review of Systems Review of Systems: As per HPI. Yes all other systems are reviewed and are negative Constitutional: Constitutional: Reports as per HPI [facility] Past Medical History Medical History (Updated 03/25/23 @ 12:10 by Emani Stoddard NP) Hypertension Hyperlipidemia Type II diabetes mellitus PTSD (post-traumatic stress disorder) Surgical History History of cholecystectomy Social History Social History Household Members: None Housing: Condominium Do you presently have visiting nurse or other home services: No Patient Tobacco Use Status: Former Tobacco user Tobacco use type: Cigarette Advance Directives: No Healthcare Proxy: No Guardian: No Patient : No service: No Sexual orientation: Straight/Heterosexual Physical Exam Vital Signs: Vital Signs: Last Vital Signs Temp 97.5 F 03/25/23 20:20 Pulse 90 03/26/23 04:45 Resp 18 03/26/23 04:45 BP 112/76 03/26/23 04:45 Pulse Ox 93 03/26/23 04:45 O2 Del Method Room Air 03/26/23 04:45 BMI result Body Mass Index 34.0 Vital signs have been reviewed and appear to be correct. Blood pressure elevated. Heart rate tachycardic. Respiratory rate normal. Temperature normal. Oxygen saturation normal. Const: General: cooperative, healthy appearing and no acute distress Orientation/consciousness: oriented to person, oriented to place, oriented to time and patient oriented x3 Limitations: no limitations HEENT: Head: Yes normocephalic and Yes atraumatic Ears: external ears normal General nose exam: Normal external nose present Face and sinus: Yes face symmetric Mouth: oropharynx normal and moist mucous membranes Throat: Yes uvula midline Eyes: Pupils: Equal, round and reactive pupils present Neck: Neck: Yes normal visual inspection and Yes supple Resp: Effort & Inspection: normal respiratory effort and able to speak in complete sentences Auscultation: clear to auscultation bilaterally Cardio: Rate: regular rate Rhythm: regular rhythm Heart sounds: S1 normal heart sound present and S2 normal heart sound present GI: Palpation (GI): Soft to palpation and nontender Auscultation: normoactive bowel sounds : General: Yes no CVA tenderness Back/Spine/Pelvis: Back: no CVA tenderness Skin: General skin exam: elasticity normal and turgor normal Neuro: General: oriented to person, oriented to place, oriented to time, patient oriented x3, moves all extremities, no focal motor deficits and CN's II-XI intact bilaterally Cranial nerves: Yes Equal, round and reactive pupils present Cognition (Neuro): normal cognition Extrem: General: Yes full ROM, Yes no pedal edema and Yes no calf tenderness Psych: Appearance: grossly normal Mental Status: mental status grossly normal Speech and movement: Normal speech and movement present Affect: normal affect Attitude: cooperative Thought process: Normal thought process present Thought content: suicidality, no homicidality and Hallucination(s) present auditory Insight: Fair insight present (Psych) Judgement: Fair judgement present (Psych) Course Reevaluation(s) Reevaluation #1: Physician observation to continue, VSS, no issue overnight reported by nurses, still awaiting for care team evaluation and disposition, labs were reviewed patient was UTI will start on cefuroxime, continue with the current plan. Time: 07:11 Medications Administered Generic Name Dose Route Start Last Admin Trade Name Freq PRN Reason Stop Dose Admin Atorvastatin Calcium 40 mg 03/25/23 21:00 03/25/23 22:28 Atorvastatin Calcium 40 Mg Tablet PO Not Given BEDTIME BERNARDA Discontinued Medications Generic Name Dose Route Start Last Admin Trade Name Freq PRN Reason Stop Dose Admin Lorazepam 1 mg 03/25/23 15:47 03/25/23 15:54 Lorazepam 1 Mg Tablet PO 03/25/23 15:48 1 mg ONCE ONE Administration Medical Decision Making Medical Decision Making [facility] Narrative: Patient is a 62-year-old female with history of bipolar disorder, T2 DM presenting to the emergency department with complaint of auditory and visual hallucinations, insomnia, has not been compliant with medications. On exam patient is awake, A+Ox3, tachycardic, BP elevated, VS otherwise WNL, afebrile, normal neurological exam without focal deficits, physical exam findings as above. Given reported symptoms and physical exam findings, initial differential includes bipolar disorder, auditory hallucinations, visual hallucinations. Labs notable for mild leukocytosis without left shift, no significant electrolyte abnormalities, no evidence of BETINA, normal LFTs. Urinalysis notable for 2+ leukocytes, 11-20 wbc's, 4+ bacteria, greater than 20 epithelial cells so likely contamination as patient denies any urinary symptoms. Urine drug screen and ethanol negative. COVID negative. Patient refusing EKG at this time. Will medically clear and placed on physician observation for care team evaluation. Differential Diagnosis Differential Diagnoses: The differential diagnosis associated with the presentation includes As per MDM. Admission/Observation Consideration of admission/observation: Escalation of care including admission/observation considered Consult Healthcare Provider Management of the patient was discussed with: Behavioral Health Provider Lab Data [facility] Lab Attestation statement: I reviewed the patient's lab results. As per MDM. 03/25/23 11:34 03/25/23 11:34 Labs: Lab Results 03/25/23 03/25/23 Range/Units 11:34 18:57 WBC 12.2 H (4.8-10.8) X10*3/uL RBC 4.56 (4.20-5.50) X10*6/uL Hgb 14.3 (12.0-16.0) g/dl Hct 42.4 (37.0-47.0) % MCV 93.0 (80.0-98.0) fL MCH 31.4 (27.0-33.0) pg MCHC 33.7 (31.0-35.0) g/dl RDW 13.0 (11.0-16.0) % Plt Count 200 (160-400) X10*3/uL MPV 9.9 (9.4-12.3) fL Immature Gran % (Auto) 0.5 H (0.0-0.4) % Neut % (Auto) 64.6 (45-73) % Lymph % (Auto) 29.4 (20-40) % Mower % (Auto) 4.9 (2-11) % Eos % (Auto) 0.3 (0-4) % Baso % (Auto) 0.3 (0-2) % Lymph # (Auto) 3.6 (1.2-4.9) X10*3/uL Mower # (Auto) 0.6 (0.1-1.2) X10*3/uL Eos # (Auto) 0.0 (0.0-0.4) X10*3/uL Baso # (Auto) 0.0 (0.0-0.2) X10*3/uL Abs Immat Gran (auto) 0.06 H (0.00-0.03) X10*3/uL Absolute Neuts (auto) 7.9 (2.0-8.3) x10*3/uL Absolute Nucleated RBC 0.020 H (0.0-0.012) X10*3/uL Nucleated RBC % (auto) 0.2 (0.0-0.2) /100WBC Sodium 139 (135-145) mmol/L Potassium 3.9 (3.3-5.1) mmol/L Chloride 104 (96-108) mmol/L Carbon Dioxide 25 (22-29) mmol/L Anion Gap 14 (12-20) BUN 9 (9-16) mg/dL Creatinine 0.74 (0.5-1.4) mg/dL Estim Creat Clear Calc 92.6 Estimated GFR > 60 POC Glucose 100 (60-115) mg/dL Random Glucose 129 H (60-115) mg/dL Calcium 9.4 (8.4-10.2) mg/dL Total Bilirubin 0.4 (0.0-1.0) mg/dL AST 24 (5-31) U/L ALT 29 (0-31) U/L Alkaline Phosphatase 79 (39-117) U/L Total Protein 7.4 (6.5-8.0) g/dL Albumin 4.4 (3.5-5.0) g/dL Urine Color Dark Yellow Urine Appearance Cloudy Urine pH 6.5 (5.0-9.0) Ur Specific [employer] 1.020 (1.005-1.025) Urine Protein 30 (1+) H (Neg-Trace) mg/dL Urine Glucose (UA) Negative (Negative) mg/dL Urine Ketones Trace (Negative) mg/dL Urine Blood Negative (Negative) Urine Nitrite Negative (Negative) Ur Leukocyte Esterase Moderate (2+) H (Negative) Urine RBC 0-2 (0-2) /HPF Urine WBC 11-20 H (0-5) /HPF Ur Squamous Epith Cells >20 (0-2) /HPF Urine Bacteria 4+ (None Seen) Hyaline Casts 11-20 (0-2) /LPF Urine Opiates Screen Not Detected (Not Detect) Urine Fentanyl Screen Not Detected (Not Detect) Ur Barbiturates Screen Not Detected (Not Detect) Ur Phencyclidine Scrn Not Detected (Not Detect) Ur Amphetamines Screen Not Detected (Not Detect) U Benzodiazepines Scrn Not Detected (Not Detect) Urine Cocaine Screen Not Detected (Not Detect) U Marijuana (THC) Screen Not Detected (Not Detect) Ethyl Alcohol < 10 mg/dL COVID-19 (ANIL) Negative (Negative) COVID-19 Clin Com See Note External Record Review External record reviewed: Inpatient record, Office record and Outpatient record Discharge Plan Discharge Clinical Impression: Bipolar disorder Patient Disposition: Still a Patient Prescriptions: No Action rosuvastatin 10 mg tablet 10 mg PO BEDTIME Qty: 30 0RF carbamazepine 400 mg tablet extended release 12 hr 400 mg PO BEDTIME 15 Days Qty: 15 0RF lorazepam 0.5 mg tablet 0.5 mg PO BEDTIME PRN (Reason: anxiety) 15 Days Qty: 15 0RF Patient Comments: last script filled 02/09/23 for 30d supply. benztropine 1 mg tablet 1 mg PO DAILY 15 Days Qty: 15 0RF Patient Comments: filled 01/29 90 d supply at [facility] per pharmacist quetiapine 100 mg tablet See Rx Instructions .ROUTE .COMPLEX 15 Days Qty: 30 0RF Rx Instructions: take one tablet po daily in AM; take one tablet po daily PRN agitation Interventions: Alexander-Suicide Risk Severity Scale Last Done: 03/26/23 02:09
[2023-03-25 11:40] LABS: MANUAL DIFF FLAG NO
[2023-03-25 11:42] LABS: Basophils Percent Auto 0.3 % (0-2); Eosinophils Percent Auto 0.3 % (0-4); Hematocrit 42.4 % (37.0-47.0); Hemoglobin 14.3 g/dl (12.0-16.0); Imm Gran Abs Auto 0.06 X10*3/uL (0.00-0.03); Imm Gran Pct Auto 0.5 % (0.0-0.4); Lymphocytes Absolute Auto 3.6 X10*3/uL (1.2-4.9); Lymphocytes Percent Auto 29.4 % (20-40); Mean Corpuscular HGB Conc 33.7 g/dl (31.0-35.0); Mean Corpuscular Hemoglobin 31.4 pg (27.0-33.0); Mean Platelet Volume 9.9 fL (9.4-12.3); Monocytes Absolute Auto 0.6 X10*3/uL (0.1-1.2); Monocytes Percent Auto 4.9 % (2-11); NRBC Pct Auto 0.2 /100WBC (0.0-0.2); Neutrophils Absolute Auto 7.9 x10*3/uL (2.0-8.3); Neutrophils Percent Auto 64.6 % (45-73); Platelet Count 200 X10*3/uL (160-400); Red Blood Count 4.56 X10*6/uL (4.20-5.50); White Blood Count 12.2 X10*3/uL (4.8-10.8)
[2023-03-25 11:44] LABS: Appearance Urine Cloudy; Color Urine Dark Yellow; Glucose Urine UA Negative (Negative); Leukocyte Esterase Urine Moderate (2+) (Negative); Nitrite Urine Negative (Negative); PH 6.5 (5.0-9.0); UMIC TRIGGER UACC YES; Urine Blood Negative (Negative); Urine Ketones Trace mg/dL (Negative); Urine Protein 30 (1+) mg/dL (Neg-Trace)
[2023-03-25 11:48] LABS: Amphetamine Screen Urine Not Detected (Not Detect); Barbiturates, Urine Not Detected (Not Detect); Benzodiazepines Screen Urine Not Detected (Not Detect); Cannabinoid Screen Urine Not Detected (Not Detect); Cocaine Screen Urine Not Detected (Not Detect); Fentanyl, urine Not Detected (Not Detect); Opiate Screen Urine Not Detected (Not Detect); Phencyclidine Screen Urine Not Detected (Not Detect)
[2023-03-25 11:52] LABS: Ethanol < 10 mg/dL
[2023-03-25 11:54] LABS: Bacteria Urine 4+ (None Seen); RBC Urine 0-2 /HPF (0-2); Squamous Epithelial Cell Urine >20 /HPF (0-2); UACC Culture Trigger YES
[2023-03-25 11:55] LABS: Alanine Aminotransferase 29 U/L (0-31); Albumin Level 4.4 g/dL (3.5-5.0); Alkaline Phosphatase 79 U/L (39-117); Anion Gap 14 (12-20); Aspartate Amino Transferase 24 U/L (5-31); Bilirubin Total 0.4 mg/dL (0.0-1.0); Blood Urea Nitrogen 9 mg/dL (9-16); COVID-19 Test Negative (Negative); Calcium 9.4 mg/dL (8.4-10.2); Carbon Dioxide 25 mmol/L (22-29); Chloride 104 mmol/L (96-108); Creatinine Clr Calc Pharmacy 92.6; Estimated Glomerular Filt Rate > 60; Glucose Random 129 mg/dL (60-115); IDNOW Serial# 152EDE1D; Potassium 3.9 mmol/L (3.3-5.1); Sodium 139 mmol/L (135-145); Total Protein 7.4 g/dL (6.5-8.0)
--- NOTE | 2023-03-25 12:03 | PC.NURSE ---
Pharmacy to complete med rec.
--- NOTE | 2023-03-25 12:13 | PC.NURSE ---
Care Team at bedside for eval.
--- NOTE | 2023-03-25 15:26 | PC.NURSE ---
called [facility] pharmacy to verify pt meds.
--- NOTE | 2023-03-25 15:28 | PC.NURSE ---
pt eating shefali crackers. continuing on phone w [facility] for med rec verification by rn
[2023-03-25] MEDS: LORazepam 1 MG TABLET PO (15:54)
[2023-03-25 15:58] VITALS: BP 150/84; PULSE 103; RESP 16; TEMP 36.6; O2SAT 95
--- NOTE | 2023-03-25 15:59 | PC.NURSE ---
jennifer optical lens manufacturing tech notified pt continues to decline the ecg from prev shift. jennifer notified pt stating she will not take any of her meds except ativan, abilify, ambien and carbamazepine however doses for carbamazepine are different from what narc[facility] says, [facility] not [facility] and no other pharmacy listed and pt declines to answer more questions about possible other pharmacies.
--- NOTE | 2023-03-25 16:18 | PC.NURSE ---
on phone re med rec again with [facility] pharmacist discussing meds as some doses/times are different from what the pt says vs [facility].
--- NOTE | 2023-03-25 16:35 | PC.NURSE ---
on phone again w pharmacy [facility] for more questions.
--- NOTE | 2023-03-25 16:47 | PC.NURSE ---
contacted provider to let know completed med rec. per [facility]: carbamazapine ER 400 HS, ativan 0.5mg filled 02/09/23 for 30 day supply. seroquel (not extended rel.) 300mg HS. rosuvastatin 10mg daily HS. benztropine 1mg HS.
[2023-03-25 19:01] LABS: Glucose, Whole Blood 100 mg/dL (60-115)
--- NOTE | 2023-03-25 19:55 | PC.NURSE ---
patient alert and lounging ad clint in milieu, earlier had sounded a little pressured and paranoid responding to staff, however, later sounding more relaxed and able to let her needs be known.
[2023-03-25 20:20] VITALS: BP 159/64; PULSE 105; RESP 20; TEMP 36.4; O2SAT 95
[2023-03-26 04:45] VITALS: BP 112/76; PULSE 90; RESP 18; O2SAT 93
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
--- NOTE | 2023-03-26 05:44 | PC.NURSE ---
Patient escorted by this RN and security to bed 13 and security installation sales technician and RN present during pelvic exam with provider. No tampon found during pelvic exam. Patient states it must have fell out, after provider left and patient was getting dressed pt stated he must have got it because I felt it come out . Pt then asking to stay in the ED and when told that wasn't an option pt requesting to go to [place]. This RN discussed the plan with patient. Pt escorted back to pod with this RN and security.
[2023-03-26 08:46] VITALS: BP 154/79; PULSE 102; RESP 18; TEMP 36.8; O2SAT 95
[2023-03-26] MEDS: Benztropine Mesylate 1 MG TABLET PO (08:49)
[2023-03-26] MEDS: cefuroxime axetiL 500 MG TABLET PO ×2 (08:49→21:29)
--- NOTE | 2023-03-26 12:42 | PC.NURSE ---
Nurse to nurse given to ALFREDO Hill.
[2023-03-26 13:25] VITALS: BP 175/81; PULSE 105; RESP 18; TEMP 36.4; O2SAT 95; BMI 35.9
--- NOTE | 2023-03-26 13:47 | PC.NURSE ---
Pt arrived to unit at 1320. Pt added to safety checks board and census board. Patient Safety Search completed by advertising writer and Aura WORTHINGTON. Vital signs, height, and weight obtained and documented. Elevated BP on arrival. Danielle Oneill SE[employer] PLANNING MANAGER notified of elevated BP. New ID band applied, toiletries provided, menu completed, and pt oriented to unit.
[2023-03-26 18:00] VITALS: BP 147/72; PULSE 101; RESP 18; TEMP 36.6; O2SAT 96
--- NOTE | 2023-03-26 18:25 | PC.NURSE ---
Addendum entered by Cristel Vu RN 03/26/23 18:53: Sybli Love is a 62 year old who was admitted to [facility] from the [facility] POD on a CV for treatment of Bipolar disorder, Manic (severe) with psychotic features and PTSD. 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 Pt know to [facility] with last admission in December 2022 after presenting with paranoid delusions. Pt went to [facility] after last admission. Pt is alert and oriented to person, place, date and situation. Patient was brought to the unit on the previous shift in which vitals were obtained and skin check was done. Patient is anxious and disorganized, presenting with pressured speech but is cooperative with the admission. Tox screen is negative. Pt denies SI,HI and has been placed on 15 minute checks for safety. Original Note: Sybil Love is a 62 year old who was admitted to from the [facility] POD on a VC for treatment of Bipolar disorder, Manic (severe) with psychotic features and PTSD. 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 Pt know to [facility] with last admission in December 2022 after presenting with paranoid delusions. Pt went to [facility] after last admission. Pt is alert and oriented to person, place, date and situation. Patient was brought to the unit on the previous shift in which vitals were obtained and skin check was done. Patient is anxious, presentint pressured speech
[2023-03-26] MEDS: LORazepam 0.5 MG TABLET PO (21:29)
[2023-03-26] MEDS: QUEtiapine Fumarate 300 MG TABLET PO (21:29)
[2023-03-26] MEDS: Atorvastatin Calcium 40 MG TABLET PO (21:29)
[2023-03-26] MEDS: carBAMazepine ER 200 MG TAB.ER.12H 400 MG PO (21:34)
--- NOTE | 2023-03-26 21:35 | PC.NURSE ---
Patient signed a three day notice to be up on 04/01/23.
[2023-03-27 08:05] VITALS: BP 154/68; PULSE 113; RESP 18; TEMP 36.3; O2SAT 94
--- NOTE | 2023-03-27 09:00 | ECG_ITS ---
Test Reason : QTC CHECK Blood Pressure : / mmHG Vent. Rate : 102 BPM Atrial Rate : 102 BPM P-R Int : 146 ms QRS Dur : 080 ms QT Int : 314 ms P-R-T Axes : 055 023 027 degrees QTc Int : 409 ms Sinus tachycardia Cannot rule out Anterior infarct (cited on or before 27-MAR-2023) Abnormal ECG When compared with ECG of 01-JAN-2023 10:39, No significant change was found Referred By: Danielle Oneill Electronically Signed By:Cesar Truong
[2023-03-27] MEDS: Benztropine Mesylate 1 MG TABLET PO (09:02)
[2023-03-27] MEDS: Milk of Magnesia 30 ML ORAL.SUSP PO (09:02)
[2023-03-27] MEDS: cefuroxime axetiL 500 MG TABLET PO (09:02)
[2023-03-27 09:05] LABS: Estimated Average Glucose 117 mg/dL; Hemoglobin A1c % 5.7 % (<6.0)
[2023-03-27 09:12] LABS: Cholesterol 188 mg/dL (<200); HDL Cholesterol 49 mg/dL (>40); LDL Cholesterol Calculated 117 mg/dL (<100); Magnesium 1.7 mg/dL (1.6-2.6); Triglycerides 114 mg/dL (<150)
[2023-03-27 09:27] LABS: Free T4 (Free Thyroxine) 0.82 ng/dL (0.71-1.85); Thyroid Stimulating Hormone 2.84 uIU/mL (0.32-4.0)
[2023-03-27 09:39] LABS: Folate 12.8 ng/mL (> or = 4.0); Vitamin B12 659 pg/mL (200-900)
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
[2023-03-27 18:40] VITALS: BP 139/68; PULSE 96; RESP 16; TEMP 36.7; O2SAT 94
[2023-03-27 19:00] VITALS: BP 179/81; PULSE 102; TEMP 36.9; O2SAT 94
[2023-03-27 19:31] LABS: Glucose, Whole Blood 127 mg/dL (60-115)
[2023-03-27] MEDS: polyethylene glycoL 3350 17 GM POWD.PACK PO (21:25)
[2023-03-27] MEDS: carBAMazepine ER 200 MG TAB.ER.12H 400 MG PO (22:26)
[2023-03-28] MEDS: LORazepam 0.5 MG TABLET PO (02:13)
[2023-03-28] MEDS: Milk of Magnesia 30 ML ORAL.SUSP PO (02:28)
[2023-03-28] MEDS: hydrOXYzine HCL 25 MG TABLET PO (02:46)
[2023-03-28] MEDS: Thyroid,Pork 30 MG TABLET 15 MG PO (06:41)
[2023-03-28 08:00] VITALS: BP 155/75; PULSE 95; RESP 15; TEMP 36.3; O2SAT 94
[2023-03-28 08:45] LABS: Glucose, Whole Blood 128 mg/dL (60-115)
--- NOTE | 2023-03-28 08:57 | HO.PSYCHPN ---
Subjective Subjective Date of Service: 03/28/23 Reason For Visit: Bipolar Disorder Subjective Notes: Conditional Voluntary Interim History: Patient was seen and discussed in rounds today. Records and plans were reviewed. She continues to be labile, hypomanic, circumstantial and tangential. She had a number of questions about her medications which we discussed. She is also quite delusional, paranoid. She is mostly compliant with her medications. No changes were made today Review of Systems Review of Systems Yes Unobtainable due to mental status Mental Status Exam Mental Status Exam Patient Appearance: Fatigued Patient Orientation: Person, Place, Time and Situation Level of Consciousness: Awake, Restless and Alert Patient Behavior: Appropriate, Talkative, Hyperactive, Cooperative, Suspicious, Restless, Wandering, Anxious, Fearful, Fatigued, Distractible, Confused, Good Eye Contact, Impulsive and Pacing Mood Description: Euphoric, Suspicious, Cheerful, Anxious, Labile, Angry, Nervous, Apprehensive and Expansive Affect Description: Labile Patient Cognition Impaired: No Ability to Follow Directions: Good Speech Pattern: Perseverating, Spontaneous Speech, Rambling, Rapid and Pressured Memory Description: Episodic Impaired Hallucinations: None Delusions: Present Perceptual Disturbances: Depersonalization and Derealization Thought Process: Racing and Goal Oriented Thought Content: positive for Racing and positive for Goal Oriented Depressive Symptoms: Increased Anxiety, Hopelessness, Unhappiness and Difficulty Concentrating Abnormal Motor Activity Signs and Symptoms: Restlessness Judgement: Poor Diagnostics Vital Signs (24Hr): Vital Signs - 24 hr 03/27/23 18:40 03/27/23 19:00 Temperature 98.1 F 98.4 F Pulse Rate 96 102 H Respiratory Rate 16 Blood Pressure 139/68 179/81 H Pulse Oximetry 94 94 Oxygen Delivery Method Room Air Room Air BMI result Body Mass Index 35.9 Labs 03/25/23 11:34 03/25/23 11:34 Labs: Laboratory Results - last 48 hr 03/27/23 03/27/23 03/28/23 08:24 19:26 08:40 POC Glucose 127 H 128 H Estimat Average Glucose 117 Hemoglobin A1c % 5.7 Magnesium 1.7 Triglycerides 114 Cholesterol 188 LDL Cholesterol, Calc 117 H HDL Cholesterol 49 Vitamin B12 659 Folate 12.8 TSH 2.84 Free T4 0.82 Medications Medications Current Medications Acetaminophen (Acetaminophen 325 Mg Tablet) 650 mg PO Q6H PRN PRN Reason: Headache/Pain Mild Scale (1-3) Al Hydroxide/Mg Hydroxide (Magnesium Hydrox/Alum Hydrox 30 Ml Oral.Susp) 30 ml PO Q6H PRN PRN Reason: Heartburn/Nausea Amlodipine Besylate (Amlodipine Besylate 2.5 Mg Tablet) 2.5 mg PO DAILY [facility]; Protocol Aripiprazole (Aripiprazole 5 Mg Tablet) 5 mg PO DAILY [facility] Aspirin (Aspirin Enteric Coated 81 Mg Tablet.Dr) 81 mg PO DAILY [facility] Atorvastatin Calcium (Atorvastatin Calcium 40 Mg Tablet) 40 mg PO BEDTIME [facility] Last Admin: 03/27/23 22:54 Dose: Not Given Benztropine Mesylate (Benztropine Mesylate 1 Mg Tablet) 1 mg PO DAILY [facility] Last Admin: 03/27/23 09:02 Dose: 1 mg Carbamazepine (Carbamazepine Er 200 Mg Tab.Er.12h) 400 mg PO BEDTIME B[facility]AR[facility] Last Admin: 03/27/23 22:26 Dose: 400 mg Cefuroxime Axetil (Cefuroxime Axetil 500 Mg Tablet) 500 mg PO BID [facility] Last Admin: 03/27/23 22:54 Dose: Not Given Cyanocobalamin (Cyanocobalamin (Vitamin B-12) 100 Mcg Tablet) 100 mcg PO DAILY [facility] Furosemide (Furosemide 20 Mg Tablet) 20 mg PO DAILY [facility]; Protocol Glipizide (Glipizide 5 Mg Tablet) 2.5 mg PO DAILY [facility] Hydroxyzine HCl (Hydroxyzine Hcl 25 Mg Tablet) 25 mg PO Q6H PRN PRN Reason: Anxiety Last Admin: 03/28/23 02:46 Dose: 25 mg Lorazepam (Lorazepam 0.5 Mg Tablet) 0.5 mg PO BEDTIME PRN PRN Reason: anxiety Last Admin: 03/28/23 02:13 Dose: 0.5 mg Magnesium Hydroxide (Milk Of Magnesia 30 Ml Oral.Susp) 30 ml PO DAILY PRN PRN Reason: Constipation Last Admin: 03/28/23 02:28 Dose: 30 ml Magnesium Oxide (Magnesium Oxide 400 Mg Tablet) 400 mg PO DAILY [facility] Metoprolol Succinate (Metoprolol Succinate Er 12.5 Mg Halftab.Er.24h) 12.5 mg PO DAILY [facility]; Protocol Polyethylene Glycol (Polyethylene Glycol 3350 17 Gm Powd.Pack) 17 gm PO DAILY PRN PRN Reason: Constipation Last Admin: 03/27/23 21:25 Dose: 17 gm Quetiapine Fumarate (Quetiapine Fumarate 300 Mg Tablet) 300 mg PO BEDTIME [facility] Last Admin: 03/27/23 22:55 Dose: Not Given Quetiapine Fumarate (Quetiapine Fumarate 50 Mg Tablet) 50 mg PO BID PRN PRN Reason: becca, agitation Thyroid (Thyroid,Pork 30 Mg Tablet) 15 mg PO DAILY@0630 [facility] Last Admin: 03/28/23 06:41 Dose: 15 mg Trazodone HCl (Trazodone Hcl 50 Mg Tablet) 50 mg PO BEDTIME MRX1 PRN PRN Reason: Insomnia Vitamin D (Cholecalciferol (Vitamin D3) 10 Mcg Tablet) 10 mcg PO DAILY [facility] Allergies Allergies Allergy/AdvReac Type Severity Reaction Status Date / Time amoxicillin Allergy Unknown Unknown Uncoded 03/25/23 11:07 Pt states no food allergy Allergy Unknown Unknown Uncoded 03/25/23 11:07 Assessment & Plan Assessment & Plan (1) PTSD (post-traumatic stress disorder): Status: Acute Code(s): F43.10 - Post-traumatic stress disorder, unspecified (2) Bipolar affective disorder, manic, severe, with psychotic behavior: Status: Acute Code(s): F31.2 - Bipolar disorder, current episode manic severe with psychotic features Plan 62 yo female, history of PTSD, Bipolar Disorder with Psychosis, self presents reporting she has stopped medications. She asks to go to [place], however, is willing to work with the team on at this time. She has stopped meds and is willing to re-start. She has several requests regarding meds which were addressed, however, she will be making further requests as her treatment continues. At this time, she reports being controlled by Estefania Mosqueda in all aspects of her life. This has caused great fear and anxiety. Pt has written several pages regarding this issue and is willing to share these. During our meeting she presents with acute becca, feeling overwhelmed with being controlled and vulnerable. Attempted to offer support, structure, safety for pt today. She has been able to appear to move freely in milieu, sing, dance and appears to feel comfortable and safe while settling in. Plan: Re-establish regime, medical and psychiatric Abilify 5 mg daily- pt request this trial, reports effective history. Today, pt has had ambivalence about Miralax order, asking ~7 times to start and stop. As of this writing, she asks that we not put it on her list of meds. Full milieu Collateral contact Diagnostics as needed. 03/28: Continue current regimen and plans Patient educated on: medication risk/benefits Reason for continued inpatient stay Substantial Risk for: inability to function and med/psych decompensation Time Spent With Patient Time: Total time managing care of this patient today ____ minutes.
[2023-03-28] MEDS: amLODIPine Besylate 2.5 MG TABLET PO (09:04)
[2023-03-28] MEDS: cefuroxime axetiL 500 MG TABLET PO ×2 (09:06→20:09)
[2023-03-28] MEDS: Aspirin Enteric Coated 81 MG TABLET.DR PO (09:06)
[2023-03-28] MEDS: Metoprolol Succinate ER 12.5 MG HALFTAB.ER.24H PO (09:06)
[2023-03-28] MEDS: Cholecalciferol (Vitamin D3) 10 MCG TABLET PO (09:06)
[2023-03-28] MEDS: Magnesium Oxide 400 MG TABLET PO (09:06)
[2023-03-28] MEDS: Furosemide 20 MG TABLET PO (09:07)
[2023-03-28] MEDS: Cyanocobalamin (Vitamin B-12) 100 MCG TABLET PO (09:07)
[2023-03-28] MEDS: ARIPiprazole 5 MG TABLET PO (09:07)
[2023-03-28] MEDS: Benztropine Mesylate 1 MG TABLET PO (09:07)
[2023-03-28] MEDS: polyethylene glycoL 3350 17 GM POWD.PACK PO (11:32)
[2023-03-28 18:25] VITALS: BP 187/87; PULSE 100; RESP 15; TEMP 36.2; O2SAT 95
[2023-03-28] MEDS: Atorvastatin Calcium 40 MG TABLET PO (20:09)
[2023-03-28] MEDS: carBAMazepine ER 200 MG TAB.ER.12H 400 MG PO (20:09)
[2023-03-28] MEDS: Zolpidem Tartrate 5 MG TABLET PO (20:09)
[2023-03-29] MEDS: Thyroid,Pork 30 MG TABLET 15 MG PO (06:10)
[2023-03-29 07:57] VITALS: BP 139/75; PULSE 106; RESP 15; TEMP 36.6; O2SAT 95
[2023-03-29] MEDS: Cholecalciferol (Vitamin D3) 10 MCG TABLET PO (07:59)
[2023-03-29] MEDS: Metoprolol Succinate ER 12.5 MG HALFTAB.ER.24H PO (07:59)
[2023-03-29] MEDS: cefuroxime axetiL 500 MG TABLET PO ×2 (07:59→21:17)
[2023-03-29] MEDS: Aspirin Enteric Coated 81 MG TABLET.DR PO (07:59)
[2023-03-29] MEDS: Magnesium Oxide 400 MG TABLET PO (07:59)
[2023-03-29] MEDS: Furosemide 20 MG TABLET PO (07:59)
[2023-03-29] MEDS: ARIPiprazole 5 MG TABLET PO ×2 (07:59→09:14)
[2023-03-29] MEDS: Benztropine Mesylate 1 MG TABLET PO (07:59)
[2023-03-29] MEDS: Cyanocobalamin (Vitamin B-12) 100 MCG TABLET PO (07:59)
[2023-03-29] MEDS: amLODIPine Besylate 2.5 MG TABLET PO (07:59)
--- NOTE | 2023-03-29 08:53 | HO.PSYCHPN ---
Subjective Subjective Date of Service: 03/29/23 Reason For Visit: Bipolar Disorder Subjective Notes: Conditional Voluntary Interim History: Patient was seen and discussed in rounds today. Records and plans were reviewed. She has continued to be labile, delusional and having nonsensical thought processes. She is refused her Seroquel but is willing to take a higher dose of Abilify which I increased to 10 mg. She slept minimally with Ambien 5 mg which I increased to 10 mg. Eating adequately. No dangerous behaviors. She also refused her EKG Review of Systems Review of Systems Yes all other systems are reviewed and are negative Mental Status Exam Mental Status Exam Patient Appearance: Fatigued Patient Orientation: Person, Place, Time and Situation Level of Consciousness: Awake, Restless and Alert Patient Behavior: Appropriate, Talkative, Hyperactive, Cooperative, Suspicious, Restless, Wandering, Anxious, Fearful, Fatigued, Distractible, Confused, Good Eye Contact, Impulsive and Pacing Mood Description: Euphoric, Suspicious, Cheerful, Anxious, Labile, Angry, Nervous, Apprehensive and Expansive Affect Description: Labile Patient Cognition Impaired: No Ability to Follow Directions: Good Speech Pattern: Perseverating, Spontaneous Speech, Rambling, Rapid and Pressured Memory Description: Episodic Impaired Hallucinations: None Delusions: Present Perceptual Disturbances: Depersonalization and Derealization Thought Process: Racing and Goal Oriented Thought Content: positive for Racing and positive for Goal Oriented Depressive Symptoms: Increased Anxiety, Hopelessness, Unhappiness and Difficulty Concentrating Abnormal Motor Activity Signs and Symptoms: Restlessness Judgement: Poor Diagnostics Vital Signs (24Hr): Vital Signs - 24 hr 03/28/23 18:25 03/29/23 07:57 Temperature 97.2 F 97.9 F Pulse Rate 100 106 H Respiratory Rate 15 15 Blood Pressure 187/87 H 139/75 Pulse Oximetry 95 95 Oxygen Delivery Method Room Air Room Air BMI result Body Mass Index 35.9 Labs 03/25/23 11:34 03/25/23 11:34 Labs: Laboratory Results - last 48 hr 03/27/23 03/27/23 03/28/23 08:24 19:26 08:40 POC Glucose 127 H 128 H Estimat Average Glucose 117 Hemoglobin A1c % 5.7 Magnesium 1.7 Triglycerides 114 Cholesterol 188 LDL Cholesterol, Calc 117 H HDL Cholesterol 49 Vitamin B12 659 Folate 12.8 TSH 2.84 Free T4 0.82 Medications Medications Current Medications Acetaminophen (Acetaminophen 325 Mg Tablet) 650 mg PO Q6H PRN PRN Reason: Headache/Pain Mild Scale (1-3) Al Hydroxide/Mg Hydroxide (Magnesium Hydrox/Alum Hydrox 30 Ml Oral.Susp) 30 ml PO Q6H PRN PRN Reason: Heartburn/Nausea Amlodipine Besylate (Amlodipine Besylate 2.5 Mg Tablet) 2.5 mg PO DAILY [facility]; Protocol Last Admin: 03/29/23 07:59 Dose: 2.5 mg Aripiprazole (Aripiprazole 5 Mg Tablet) 5 mg PO DAILY [facility] Last Admin: 03/29/23 07:59 Dose: 5 mg Aspirin (Aspirin Enteric Coated 81 Mg Tablet.Dr) 81 mg PO DAILY [facility] Last Admin: 03/29/23 07:59 Dose: 81 mg Atorvastatin Calcium (Atorvastatin Calcium 40 Mg Tablet) 40 mg PO BEDTIME [facility] Last Admin: 03/28/23 20:09 Dose: 40 mg Benztropine Mesylate (Benztropine Mesylate 1 Mg Tablet) 1 mg PO DAILY [facility] Last Admin: 03/29/23 07:59 Dose: 1 mg Carbamazepine (Carbamazepine Er 200 Mg Tab.Er.12h) 400 mg PO BEDTIME [facility] Last Admin: 03/28/23 20:09 Dose: 400 mg Cefuroxime Axetil (Cefuroxime Axetil 500 Mg Tablet) 500 mg PO BID [facility] Last Admin: 03/29/23 07:59 Dose: 500 mg Cyanocobalamin (Cyanocobalamin (Vitamin B-12) 100 Mcg Tablet) 100 mcg PO DAILY [facility] Last Admin: 03/29/23 07:59 Dose: 100 mcg Furosemide (Furosemide 20 Mg Tablet) 20 mg PO DAILY [facility]; Protocol Last Admin: 03/29/23 07:59 Dose: 20 mg Glipizide (Glipizide 5 Mg Tablet) 2.5 mg PO DAILY [facility] Last Admin: 03/29/23 08:00 Dose: Not Given Hydroxyzine HCl (Hydroxyzine Hcl 25 Mg Tablet) 25 mg PO Q6H PRN PRN Reason: Anxiety Last Admin: 03/28/23 02:46 Dose: 25 mg Lorazepam (Lorazepam 0.5 Mg Tablet) 0.5 mg PO BEDTIME PRN PRN Reason: anxiety Last Admin: 03/28/23 02:13 Dose: 0.5 mg Magnesium Hydroxide (Milk Of Magnesia 30 Ml Oral.Susp) 30 ml PO DAILY PRN PRN Reason: Constipation Last Admin: 03/28/23 02:28 Dose: 30 ml Magnesium Oxide (Magnesium Oxide 400 Mg Tablet) 400 mg PO DAILY [facility] Last Admin: 03/29/23 07:59 Dose: 400 mg Metoprolol Succinate (Metoprolol Succinate Er 12.5 Mg Halftab.Er.24h) 12.5 mg PO DAILY [facility]; Protocol Last Admin: 03/29/23 07:59 Dose: 12.5 mg Pt Own (Trulicity 3 (Mg)) 3 mg SUBCUT Q7D [facility] Last Admin: 03/28/23 10:18 Dose: 3 mg Polyethylene Glycol (Polyethylene Glycol 3350 17 Gm Powd.Pack) 17 gm PO DAILY PRN PRN Reason: Constipation Last Admin: 03/28/23 11:32 Dose: 17 gm Quetiapine Fumarate (Quetiapine Fumarate 300 Mg Tablet) 300 mg PO BEDTIME [facility] Last Admin: 03/28/23 20:09 Dose: Not Given Quetiapine Fumarate (Quetiapine Fumarate 50 Mg Tablet) 50 mg PO BID PRN PRN Reason: becca, agitation Thyroid (Thyroid,Pork 30 Mg Tablet) 15 mg PO DAILY@0630 [facility] Last Admin: 03/29/23 06:10 Dose: 15 mg Trazodone HCl (Trazodone Hcl 50 Mg Tablet) 50 mg PO BEDTIME MRX1 PRN PRN Reason: Insomnia Vitamin D (Cholecalciferol (Vitamin D3) 10 Mcg Tablet) 10 mcg PO DAILY [facility] Last Admin: 03/29/23 07:59 Dose: 10 mcg Zolpidem Tartrate (Zolpidem Tartrate 5 Mg Tablet) 5 mg PO BEDTIME [facility] Last Admin: 03/28/23 20:09 Dose: 5 mg Allergies Allergies Allergy/AdvReac Type Severity Reaction Status Date / Time amoxicillin Allergy Unknown Unknown Uncoded 03/25/23 11:07 Pt states no food allergy Allergy Unknown Unknown Uncoded 03/25/23 11:07 Assessment & Plan Assessment & Plan (1) PTSD (post-traumatic stress disorder): Status: Acute Code(s): F43.10 - Post-traumatic stress disorder, unspecified (2) Bipolar affective disorder, manic, severe, with psychotic behavior: Status: Acute Code(s): F31.2 - Bipolar disorder, current episode manic severe with psychotic features Plan 62 yo female, history of PTSD, Bipolar Disorder with Psychosis, self presents reporting she has stopped medications. She asks to go to [place], however, is willing to work with the team on M5 at this time. She has stopped meds and is willing to re-start. She has several requests regarding meds which were addressed, however, she will be making further requests as her treatment continues. At this time, she reports being controlled by Estefania Mosqueda in all aspects of her life. This has caused great fear and anxiety. Pt has written several pages regarding this issue and is willing to share these. During our meeting she presents with acute becca, feeling overwhelmed with being controlled and vulnerable. Attempted to offer support, structure, safety for pt today. She has been able to appear to move freely in milieu, sing, dance and appears to feel comfortable and safe while settling in. Plan: Re-establish regime, medical and psychiatric Abilify 5 mg daily- pt request this trial, reports effective history. Today, pt has had ambivalence about Miralax order, asking ~7 times to start and stop. As of this writing, she asks that we not put it on her list of meds. Full milieu Collateral contact Diagnostics as needed. 03/28: Continue current regimen and plans 03/29: Continue current regimen and plans. Increased Abilify to 10 mg and Ambien to 10 mg Patient educated on: medication risk/benefits Reason for continued inpatient stay Substantial Risk for: inability to function and med/psych decompensation Time Spent With Patient Time: Total time managing care of this patient today ____ minutes.
[2023-03-29] MEDS: polyethylene glycoL 3350 17 GM POWD.PACK PO (11:44)
[2023-03-29] MEDS: LORazepam 0.5 MG TABLET PO (15:11)
[2023-03-29 19:55] VITALS: BP 167/72; PULSE 104; TEMP 36.3
[2023-03-29] MEDS: Zolpidem Tartrate 5 MG TABLET 10 MG PO (21:16)
[2023-03-29] MEDS: QUEtiapine Fumarate 300 MG TABLET PO (21:16)
[2023-03-29] MEDS: carBAMazepine ER 200 MG TAB.ER.12H 400 MG PO (21:16)
[2023-03-29] MEDS: Atorvastatin Calcium 40 MG TABLET PO (21:17)
[2023-03-30] MEDS: Thyroid,Pork 30 MG TABLET 15 MG PO (06:12)
[2023-03-30 08:00] VITALS: BP 149/68; PULSE 98; RESP 16; TEMP 36.9; O2SAT 97
[2023-03-30] MEDS: ARIPiprazole 10 MG TABLET PO (08:14)
[2023-03-30] MEDS: Metoprolol Succinate ER 12.5 MG HALFTAB.ER.24H PO (08:14)
[2023-03-30] MEDS: Magnesium Oxide 400 MG TABLET PO (08:14)
[2023-03-30] MEDS: Benztropine Mesylate 1 MG TABLET PO (08:14)
[2023-03-30] MEDS: Cyanocobalamin (Vitamin B-12) 100 MCG TABLET PO (08:14)
[2023-03-30] MEDS: cefuroxime axetiL 500 MG TABLET PO ×2 (08:15→20:06)
[2023-03-30] MEDS: Cholecalciferol (Vitamin D3) 10 MCG TABLET PO (08:15)
[2023-03-30] MEDS: Aspirin Enteric Coated 81 MG TABLET.DR PO (08:15)
[2023-03-30] MEDS: amLODIPine Besylate 2.5 MG TABLET PO (08:15)
[2023-03-30] MEDS: Furosemide 20 MG TABLET PO (08:15)
[2023-03-30 09:08] LABS: Glucose, Whole Blood 202 mg/dL (60-115)
--- NOTE | 2023-03-30 13:32 | HO.PSYCHPN ---
Subjective Subjective Date of Service: 03/30/23 Reason For Visit: Bipolar Disorder Subjective Notes: Conditional Voluntary Interim History: Patient was seen and discussed in rounds today. Records and plans were reviewed. She is very happy with the medication tweaking that we did over the weekend and is sleeping adequately. She is requesting point of care to be ordered. She has been refusing the oral hypoglycemic stating that she is supposed to be only on Trulicity. Questions about her EKG discuss. No other changes were made today Review of Systems Review of Systems Yes all other systems are reviewed and are negative Mental Status Exam Mental Status Exam Patient Appearance: Fatigued Patient Orientation: Person, Place, Time and Situation Level of Consciousness: Awake, Restless and Alert Patient Behavior: Appropriate, Talkative, Hyperactive, Cooperative, Suspicious, Restless, Wandering, Anxious, Fearful, Fatigued, Distractible, Confused, Good Eye Contact, Impulsive and Pacing Mood Description: Euphoric, Suspicious, Cheerful, Anxious, Labile, Angry, Nervous, Apprehensive and Expansive Affect Description: Labile Patient Cognition Impaired: No Ability to Follow Directions: Good Speech Pattern: Perseverating, Spontaneous Speech, Rambling, Rapid and Pressured Memory Description: Episodic Impaired Hallucinations: None Delusions: Present Perceptual Disturbances: Depersonalization and Derealization Thought Process: Racing and Goal Oriented Thought Content: positive for Racing and positive for Goal Oriented Depressive Symptoms: Increased Anxiety, Hopelessness, Unhappiness and Difficulty Concentrating Abnormal Motor Activity Signs and Symptoms: Restlessness Judgement: Poor Diagnostics Vital Signs (24Hr): Vital Signs - 24 hr 03/29/23 19:55 03/30/23 08:00 Temperature 97.4 F 98.4 F Pulse Rate 104 H 98 Respiratory Rate 16 Blood Pressure 167/72 H 149/68 H Pulse Oximetry 97 Oxygen Delivery Method Room Air BMI result Body Mass Index 35.9 Labs 03/25/23 11:34 03/25/23 11:34 Labs: Laboratory Results - last 48 hr 03/30/23 09:04 POC Glucose 202 H Medications Medications Current Medications Acetaminophen (Acetaminophen 325 Mg Tablet) 650 mg PO Q6H PRN PRN Reason: Headache/Pain Mild Scale (1-3) Al Hydroxide/Mg Hydroxide (Magnesium Hydrox/Alum Hydrox 30 Ml Oral.Susp) 30 ml PO Q6H PRN PRN Reason: Heartburn/Nausea Amlodipine Besylate (Amlodipine Besylate 2.5 Mg Tablet) 2.5 mg PO DAILY [facility]; Protocol Last Admin: 03/30/23 08:15 Dose: 2.5 mg Aripiprazole (Aripiprazole 10 Mg Tablet) 10 mg PO DAILY [facility] Last Admin: 03/30/23 08:14 Dose: 10 mg Aspirin (Aspirin Enteric Coated 81 Mg Tablet.) 81 mg PO DAILY [facility] Last Admin: 03/30/23 08:15 Dose: 81 mg Atorvastatin Calcium (Atorvastatin Calcium 40 Mg Tablet) 40 mg PO BEDTIME [facility] Last Admin: 03/29/23 21:17 Dose: 40 mg Benztropine Mesylate (Benztropine Mesylate 1 Mg Tablet) 1 mg PO DAILY [facility] Last Admin: 03/30/23 08:14 Dose: 1 mg Carbamazepine (Carbamazepine Er 200 Mg Tab.Er.12h) 400 mg PO BEDTIME [facility] Last Admin: 03/29/23 21:16 Dose: 400 mg Cefuroxime Axetil (Cefuroxime Axetil 500 Mg Tablet) 500 mg PO BID [facility] Last Admin: 03/30/23 08:15 Dose: 500 mg Cyanocobalamin (Cyanocobalamin (Vitamin B-12) 100 Mcg Tablet) 100 mcg PO DAILY [facility] Last Admin: 03/30/23 08:14 Dose: 100 mcg Furosemide (Furosemide 20 Mg Tablet) 20 mg PO DAILY [facility]; Protocol Last Admin: 03/30/23 08:15 Dose: 20 mg Glipizide (Glipizide 5 Mg Tablet) 2.5 mg PO DAILY [facility] Last Admin: 03/30/23 08:17 Dose: Not Given Hydroxyzine HCl (Hydroxyzine Hcl 25 Mg Tablet) 25 mg PO Q6H PRN PRN Reason: Anxiety Last Admin: 03/28/23 02:46 Dose: 25 mg Lorazepam (Lorazepam 0.5 Mg Tablet) 0.5 mg PO BEDTIME PRN PRN Reason: anxiety Last Admin: 03/29/23 15:11 Dose: 0.5 mg Magnesium Hydroxide (Milk Of Magnesia 30 Ml Oral.Susp) 30 ml PO DAILY PRN PRN Reason: Constipation Last Admin: 03/28/23 02:28 Dose: 30 ml Magnesium Oxide (Magnesium Oxide 400 Mg Tablet) 400 mg PO DAILY [facility] Last Admin: 03/30/23 08:14 Dose: 400 mg Metoprolol Succinate (Metoprolol Succinate Er 12.5 Mg Halftab.Er.24h) 12.5 mg PO DAILY [facility]; Protocol Last Admin: 03/30/23 08:14 Dose: 12.5 mg Pt Own (Trulicity 3 (Mg)) 3 mg SUBCUT Q7D [facility] Last Admin: 03/28/23 10:18 Dose: 3 mg Polyethylene Glycol (Polyethylene Glycol 3350 17 Gm Powd.Pack) 17 gm PO DAILY PRN PRN Reason: Constipation Last Admin: 03/29/23 11:44 Dose: 17 gm Quetiapine Fumarate (Quetiapine Fumarate 300 Mg Tablet) 300 mg PO BEDTIME [facility] Last Admin: 03/29/23 21:16 Dose: 300 mg Quetiapine Fumarate (Quetiapine Fumarate 50 Mg Tablet) 50 mg PO BID PRN PRN Reason: becca, agitation Thyroid (Thyroid,Pork 30 Mg Tablet) 15 mg PO DAILY@0630 [facility] Last Admin: 03/30/23 06:12 Dose: 15 mg Trazodone HCl (Trazodone Hcl 50 Mg Tablet) 50 mg PO BEDTIME MRX1 PRN PRN Reason: Insomnia Vitamin D (Cholecalciferol (Vitamin D3) 10 Mcg Tablet) 10 mcg PO DAILY [facility] Last Admin: 03/30/23 08:15 Dose: 10 mcg Zolpidem Tartrate (Zolpidem Tartrate 5 Mg Tablet) 10 mg PO BEDTIME [facility] Last Admin: 03/29/23 21:16 Dose: 10 mg Allergies Allergies Allergy/AdvReac Type Severity Reaction Status Date / Time amoxicillin Allergy Unknown Unknown Uncoded 03/25/23 11:07 Pt states no food allergy Allergy Unknown Unknown Uncoded 03/25/23 11:07 Assessment & Plan Assessment & Plan (1) PTSD (post-traumatic stress disorder): Status: Acute Code(s): F43.10 - Post-traumatic stress disorder, unspecified (2) Bipolar affective disorder, manic, severe, with psychotic behavior: Status: Acute Code(s): F31.2 - Bipolar disorder, current episode manic severe with psychotic features Plan 62 yo female, history of PTSD, Bipolar Disorder with Psychosis, self presents reporting she has stopped medications. She asks to go to [place], however, is willing to work with the team on at this time. She has stopped meds and is willing to re-start. She has several requests regarding meds which were addressed, however, she will be making further requests as her treatment continues. At this time, she reports being controlled by Estefania Mosqueda in all aspects of her life. This has caused great fear and anxiety. Pt has written several pages regarding this issue and is willing to share these. During our meeting she presents with acute becca, feeling overwhelmed with being controlled and vulnerable. Attempted to offer support, structure, safety for pt today. She has been able to appear to move freely in milieu, sing, dance and appears to feel comfortable and safe while settling in. Plan: Re-establish regime, medical and psychiatric Abilify 5 mg daily- pt request this trial, reports effective history. Today, pt has had ambivalence about Miralax order, asking ~7 times to start and stop. As of this writing, she asks that we not put it on her list of meds. Full milieu Collateral contact Diagnostics as needed. 03/28: Continue current regimen and plans 03/29: Continue current regimen and plans. Increased Abilify to 10 mg and Ambien to 10 mg 03/30: Continue current plans and regimen Reason for continued inpatient stay Substantial Risk for: med/psych decompensation Time Spent With Patient Time: Total time managing care of this patient today ____ minutes.
[2023-03-30] MEDS: polyethylene glycoL 3350 17 GM POWD.PACK PO (13:46)
[2023-03-30] MEDS: hydrOXYzine HCL 25 MG TABLET PO (16:27)
[2023-03-30 18:45] VITALS: BP 180/91; PULSE 111; TEMP 2.6; TEMP 36.7; O2SAT 95
[2023-03-30] MEDS: carBAMazepine ER 200 MG TAB.ER.12H 400 MG PO (20:04)
[2023-03-30] MEDS: Atorvastatin Calcium 40 MG TABLET PO (20:04)
[2023-03-30] MEDS: QUEtiapine Fumarate 300 MG TABLET PO (20:05)
[2023-03-30] MEDS: Zolpidem Tartrate 5 MG TABLET 10 MG PO (20:05)
[2023-03-30 20:31] LABS: Glucose, Whole Blood 100 mg/dL (60-115)
[2023-03-30 20:33] VITALS: BP 133/60; PULSE 96; TEMP 36.7
[2023-03-30] MEDS: LORazepam 0.5 MG TABLET PO (23:34)
[2023-03-31] MEDS: Thyroid,Pork 30 MG TABLET 15 MG PO (05:47)
[2023-03-31 08:00] VITALS: BP 119/72; PULSE 98; RESP 18; TEMP 36.1; O2SAT 96
[2023-03-31] MEDS: ARIPiprazole 10 MG TABLET PO (08:04)
[2023-03-31] MEDS: Aspirin Enteric Coated 81 MG TABLET.DR PO (08:04)
[2023-03-31] MEDS: Cyanocobalamin (Vitamin B-12) 100 MCG TABLET PO (08:04)
[2023-03-31] MEDS: Metoprolol Succinate ER 12.5 MG HALFTAB.ER.24H PO (08:04)
[2023-03-31] MEDS: amLODIPine Besylate 2.5 MG TABLET PO (08:04)
[2023-03-31] MEDS: Benztropine Mesylate 1 MG TABLET PO (08:04)
[2023-03-31] MEDS: Magnesium Oxide 400 MG TABLET PO (08:04)
[2023-03-31] MEDS: Furosemide 20 MG TABLET PO (08:04)
[2023-03-31] MEDS: Cholecalciferol (Vitamin D3) 10 MCG TABLET PO (08:04)
[2023-03-31] MEDS: cefuroxime axetiL 500 MG TABLET PO ×2 (09:02→21:18)
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
[2023-03-31] MEDS: Milk of Magnesia 30 ML ORAL.SUSP PO (16:43)
[2023-03-31 16:44] VITALS: BP 188/88; PULSE 98; RESP 18; TEMP 36.7; O2SAT 95
[2023-03-31] MEDS: Atorvastatin Calcium 40 MG TABLET PO (21:17)
[2023-03-31] MEDS: carBAMazepine ER 200 MG TAB.ER.12H 400 MG PO (21:18)
[2023-03-31] MEDS: Zolpidem Tartrate 5 MG TABLET 10 MG PO (21:19)
[2023-03-31 21:43] LABS: Glucose, Whole Blood 131 mg/dL (60-115)
[2023-03-31] MEDS: LORazepam 0.5 MG TABLET PO (21:56)
[2023-04-01] MEDS: traZODone HCL 50 MG TABLET PO (03:14)
[2023-04-01] MEDS: Thyroid,Pork 30 MG TABLET 15 MG PO (06:41)
[2023-04-01 08:10] LABS: Glucose, Whole Blood 161 mg/dL (60-115)
[2023-04-01 08:13] VITALS: BP 145/69; PULSE 97; RESP 16; TEMP 36.2; O2SAT 96
[2023-04-01] MEDS: Metoprolol Succinate ER 12.5 MG HALFTAB.ER.24H PO (08:30)
[2023-04-01] MEDS: Aspirin Enteric Coated 81 MG TABLET.DR PO (08:31)
[2023-04-01] MEDS: carBAMazepine ER 200 MG TAB.ER.12H PO (08:31)
[2023-04-01] MEDS: Cholecalciferol (Vitamin D3) 10 MCG TABLET PO (08:31)
[2023-04-01] MEDS: Magnesium Oxide 400 MG TABLET PO (08:31)
[2023-04-01] MEDS: Benztropine Mesylate 1 MG TABLET PO (08:31)
[2023-04-01] MEDS: amLODIPine Besylate 2.5 MG TABLET PO (08:32)
[2023-04-01] MEDS: Cyanocobalamin (Vitamin B-12) 100 MCG TABLET PO (08:32)
[2023-04-01] MEDS: ARIPiprazole 10 MG TABLET PO (08:32)
[2023-04-01] MEDS: cefuroxime axetiL 500 MG TABLET PO ×2 (08:32→22:14)
[2023-04-01] MEDS: Furosemide 20 MG TABLET PO (08:32)
[2023-04-01 18:00] VITALS: BP 136/60; PULSE 105; RESP 16; TEMP 36.6; O2SAT 94
--- NOTE | 2023-04-01 18:56 | P.PNPSI_ITS ---
Subjective Subjective Date of Service: 04/01/23 Reason For Visit: Bipolar Disorder Subjective Notes: Conditional Voluntary and 3 Day (retracted) Healthcare Proxy: No Guardianship: No Medical Problems Affecting Mental Status: No Interim History: Pt retracted her three day notice. She is compliant with medicine. She is considering stopping Seroquel and titrating Abilify. She is writing, sharing her concerns about her neighbors and is specific in discussion. Her reports are all expressive of the trauma she has experienced and how she would like to heal from this She has several writings she has shared to inform the team. Medication Compliance: Yes Side effects from medications: No Attending Groups: Intermittent Review of Systems Acute medical concerns: No Medical Review of Systems: unchanged Review of Systems Review of Systems Yes all other systems are reviewed and are negative Mental Status Exam Mental Status Exam Patient Appearance: Fatigued Patient Orientation: Person, Place, Time and Situation Level of Consciousness: Awake and Alert Patient Behavior: Appropriate, Talkative, Cooperative, Suspicious, Distractible and Good Eye Contact Mood Description: Suspicious, Anxious, Labile and Apprehensive Affect Description: Anxious Patient Cognition Impaired: No Ability to Follow Directions: Good Speech Pattern: Perseverating, Spontaneous Speech, Rapid and Pressured Memory Description: Episodic Impaired Hallucinations: None Delusions: Present Perceptual Disturbances: Depersonalization and Derealization Thought Process: Racing and Goal Oriented Thought Content: positive for Racing and positive for Goal Oriented Depressive Symptoms: Increased Anxiety, Hopelessness and Unhappiness Abnormal Motor Activity Signs and Symptoms: Restlessness Judgement: Fair Diagnostics Vital Signs (24Hr): Vital Signs - 24 hr 04/01/23 08:13 Temperature 97.2 F Pulse Rate 97 Respiratory Rate 16 Blood Pressure 145/69 H Pulse Oximetry 96 Oxygen Delivery Method Room Air BMI result Body Mass Index 35.9 Labs 04/02/23 08:21 03/25/23 11:34 Labs: Laboratory Results - last 48 hr 03/30/23 03/31/23 04/01/23 20:27 21:39 08:07 POC Glucose 100 131 H 161 H Medications Medications Current Medications Acetaminophen (Acetaminophen 325 Mg Tablet) 650 mg PO Q6H PRN PRN Reason: Headache/Pain Mild Scale (1-3) Al Hydroxide/Mg Hydroxide (Magnesium Hydrox/Alum Hydrox 30 Ml Oral.Susp) 30 ml PO Q6H PRN PRN Reason: Heartburn/Nausea Amlodipine Besylate (Amlodipine Besylate 2.5 Mg Tablet) 2.5 mg PO DAILY [facility]; Protocol Last Admin: 04/01/23 08:32 Dose: 2.5 mg Aripiprazole (Aripiprazole 10 Mg Tablet) 10 mg PO DAILY [facility] Last Admin: 04/01/23 08:32 Dose: 10 mg Aspirin (Aspirin Enteric Coated 81 Mg Tablet.Dr) 81 mg PO DAILY [facility] Last Admin: 04/01/23 08:31 Dose: 81 mg Atorvastatin Calcium (Atorvastatin Calcium 40 Mg Tablet) 40 mg PO BEDTIME [facility] Last Admin: 03/31/23 21:17 Dose: 40 mg Benztropine Mesylate (Benztropine Mesylate 1 Mg Tablet) 1 mg PO DAILY [facility] Last Admin: 04/01/23 08:31 Dose: 1 mg Carbamazepine (Carbamazepine Er 200 Mg Tab.Er.12h) 400 mg PO BEDTIME [facility] Last Admin: 03/31/23 21:18 Dose: 400 mg Carbamazepine (Carbamazepine Er 200 Mg Tab.Er.12h) 200 mg PO DAILY [facility] Last Admin: 04/01/23 08:31 Dose: 200 mg Cefuroxime Axetil (Cefuroxime Axetil 500 Mg Tablet) 500 mg PO BID [facility] Last Admin: 04/01/23 08:32 Dose: 500 mg Cyanocobalamin (Cyanocobalamin (Vitamin B-12) 100 Mcg Tablet) 100 mcg PO DAILY [facility] Last Admin: 04/01/23 08:32 Dose: 100 mcg Furosemide (Furosemide 20 Mg Tablet) 20 mg PO DAILY [facility]; Protocol Last Admin: 04/01/23 08:32 Dose: 20 mg Hydroxyzine HCl (Hydroxyzine Hcl 25 Mg Tablet) 25 mg PO Q6H PRN PRN Reason: Anxiety Last Admin: 03/30/23 16:27 Dose: 25 mg Lorazepam (Lorazepam 0.5 Mg Tablet) 0.5 mg PO BEDTIME PRN PRN Reason: anxiety Last Admin: 03/31/23 21:56 Dose: 0.5 mg Magnesium Hydroxide (Milk Of Magnesia 30 Ml Oral.Susp) 30 ml PO DAILY PRN PRN Reason: Constipation Last Admin: 03/31/23 16:43 Dose: 30 ml Magnesium Oxide (Magnesium Oxide 400 Mg Tablet) 400 mg PO DAILY [facility] Last Admin: 04/01/23 08:31 Dose: 400 mg Metoprolol Succinate (Metoprolol Succinate Er 12.5 Mg Halftab.Er.24h) 12.5 mg PO DAILY [facility]; Protocol Last Admin: 04/01/23 08:30 Dose: 12.5 mg Pt Own (Trulicity 3 (Mg)) 3 mg SUBCUT Q7D [facility] Last Admin: 03/28/23 10:18 Dose: 3 mg Polyethylene Glycol (Polyethylene Glycol 3350 17 Gm Powd.Pack) 17 gm PO DAILY PRN PRN Reason: Constipation Last Admin: 03/30/23 13:46 Dose: 17 gm Quetiapine Fumarate (Quetiapine Fumarate 300 Mg Tablet) 300 mg PO BEDTIME [facility] Last Admin: 03/31/23 21:22 Dose: Not Given Quetiapine Fumarate (Quetiapine Fumarate 50 Mg Tablet) 50 mg PO BID PRN PRN Reason: becca, agitation Thyroid (Thyroid,Pork 30 Mg Tablet) 15 mg PO DAILY@0630 [facility] Last Admin: 04/01/23 06:41 Dose: 15 mg Trazodone HCl (Trazodone Hcl 50 Mg Tablet) 50 mg PO BEDTIME MRX1 PRN PRN Reason: Insomnia Last Admin: 04/01/23 03:14 Dose: 50 mg Vitamin D (Cholecalciferol (Vitamin D3) 10 Mcg Tablet) 10 mcg PO DAILY [facility] Last Admin: 04/01/23 08:31 Dose: 10 mcg Zolpidem Tartrate (Zolpidem Tartrate 5 Mg Tablet) 10 mg PO BEDTIME [facility] Last Admin: 03/31/23 21:19 Dose: 10 mg Allergies Allergies Allergy/AdvReac Type Severity Reaction Status Date / Time amoxicillin Allergy Unknown Unknown Uncoded 03/25/23 11:07 Pt states no food allergy Allergy Unknown Unknown Uncoded 03/25/23 11:07 Assessment & Plan Assessment & Plan (1) PTSD (post-traumatic stress disorder): Status: Acute Code(s): F43.10 - Post-traumatic stress disorder, unspecified (2) Bipolar affective disorder, manic, severe, with psychotic behavior: Status: Acute Code(s): F31.2 - Bipolar disorder, current episode manic severe with psychotic features Plan 62 yo female, history of PTSD, Bipolar Disorder with Psychosis, self presents reporting she has stopped medications. She asks to go to [place], however, is willing to work with the team on at this time. She has stopped meds and is willing to re-start. She has several requests regarding meds which were addressed, however, she will be making further requests as her treatment continues. At this time, she reports being controlled by Estefania Mosqueda in all aspects of her life. This has caused great fear and anxiety. Pt has written several pages regarding this issue and is willing to share these. During our meeting she presents with acute becca, feeling overwhelmed with being controlled and vulnerable. Attempted to offer support, structure, safety for pt today. She has been able to appear to move freely in milieu, sing, dance and appears to feel comfortable and safe while settling in. Plan: Re-establish regime, medical and psychiatric Abilify 5 mg daily- pt request this trial, reports effective history. Today, pt has had ambivalence about Miralax order, asking ~7 times to start and stop. As of this writing, she asks that we not put it on her list of meds. Full milieu Collateral contact Diagnostics as needed. 03/28: Continue current regimen and plans 03/29: Continue current regimen and plans. Increased Abilify to 10 mg and Ambien to 10 mg 03/30: Continue current plans and regimen 03/31: Will file Section 7 on 04/01. 04/01: Pt signed a CV, retracted TDN. Abilify increase to 15 mg daily Considering DC of Seroquel and will use Abilify instead. Patient educated on: medication risk/benefits and therapeutic strategies Informed Consent: further education needed Reason for continued inpatient stay Substantial Risk for: rapid decompensation Time Spent With Patient Time: Total time managing care of this patient today ____ minutes.
[2023-04-01] MEDS: Zolpidem Tartrate 5 MG TABLET 10 MG PO (22:13)
[2023-04-01] MEDS: carBAMazepine ER 200 MG TAB.ER.12H 400 MG PO (22:14)
[2023-04-01] MEDS: LORazepam 1 MG TABLET PO (22:15)
[2023-04-01] MEDS: Atorvastatin Calcium 40 MG TABLET PO (22:15)
[2023-04-02] MEDS: Thyroid,Pork 30 MG TABLET 15 MG PO (06:08)
[2023-04-02 07:00] VITALS: BMI 34.9
[2023-04-02 08:05] VITALS: BP 111/78; PULSE 100; RESP 18; TEMP 36.3; O2SAT 95
[2023-04-02 08:21] LABS: Glucose, Whole Blood 120 mg/dL (60-115)
[2023-04-02 08:30] LABS: MANUAL DIFF FLAG NO
[2023-04-02 08:34] LABS: Basophils Absolute Auto 0.1 X10*3/uL (0.0-0.2); Basophils Percent Auto 0.5 % (0-2); Eosinophils Absolute Auto 0.3 X10*3/uL (0.0-0.4); Eosinophils Percent Auto 2.7 % (0-4); Hematocrit 40.5 % (37.0-47.0); Hemoglobin 13.4 g/dl (12.0-16.0); Imm Gran Abs Auto 0.04 X10*3/uL (0.00-0.03); Imm Gran Pct Auto 0.4 % (0.0-0.4); Lymphocytes Absolute Auto 4.1 X10*3/uL (1.2-4.9); Lymphocytes Percent Auto 39.6 % (20-40); Mean Corpuscular HGB Conc 33.1 g/dl (31.0-35.0); Mean Corpuscular Hemoglobin 31.5 pg (27.0-33.0); Mean Corpuscular Volume 95.1 fL (80.0-98.0); Mean Platelet Volume 9.6 fL (9.4-12.3); Monocytes Absolute Auto 0.7 X10*3/uL (0.1-1.2); Monocytes Percent Auto 6.3 % (2-11); Neutrophils Absolute Auto 5.3 x10*3/uL (2.0-8.3); Neutrophils Percent Auto 50.5 % (45-73); Platelet Count 203 X10*3/uL (160-400); Red Blood Count 4.26 X10*6/uL (4.20-5.50); Red Cell Distribution Width 13.2 % (11.0-16.0); White Blood Count 10.5 X10*3/uL (4.8-10.8)
[2023-04-02 08:46] LABS: Carbamazepine Tegretol 8.8 mcg/mL (5.0-12.0)
[2023-04-02] MEDS: Furosemide 20 MG TABLET PO (08:51)
[2023-04-02] MEDS: carBAMazepine ER 200 MG TAB.ER.12H PO (08:51)
[2023-04-02] MEDS: cefuroxime axetiL 500 MG TABLET PO (08:51)
[2023-04-02] MEDS: Cholecalciferol (Vitamin D3) 10 MCG TABLET PO (08:51)
[2023-04-02] MEDS: ARIPiprazole 15 MG TABLET PO (08:51)
[2023-04-02] MEDS: Benztropine Mesylate 1 MG TABLET PO (08:51)
[2023-04-02] MEDS: amLODIPine Besylate 2.5 MG TABLET PO (08:51)
[2023-04-02] MEDS: Metoprolol Succinate ER 12.5 MG HALFTAB.ER.24H PO (08:51)
[2023-04-02] MEDS: Magnesium Oxide 400 MG TABLET PO (08:51)
[2023-04-02] MEDS: Aspirin Enteric Coated 81 MG TABLET.DR PO (08:51)
[2023-04-02] MEDS: Cyanocobalamin (Vitamin B-12) 100 MCG TABLET PO (08:52)
--- NOTE | 2023-04-02 12:07 | P.PNPSI_ITS ---
Subjective Subjective Date of Service: 04/02/23 Reason For Visit: Bipolar Disorder Subjective Notes: Conditional Voluntary Healthcare Proxy: No Guardianship: No Medical Problems Affecting Mental Status: No Interim History: Pt has decided to stop Seroquel at this time and replace with Abilify. Today, she continues to discuss her experience with trauma. Glasses and her library book are missing. Medication Compliance: Yes Side effects from medications: No Attending Groups: Intermittent Review of Systems Acute medical concerns: No Medical Review of Systems: unchanged Review of Systems Review of Systems Yes all other systems are reviewed and are negative Mental Status Exam Mental Status Exam Patient Appearance: Fatigued Patient Orientation: Person, Place, Time and Situation Level of Consciousness: Awake and Alert Patient Behavior: Appropriate, Talkative, Cooperative, Suspicious, Distractible and Good Eye Contact Mood Description: Suspicious, Anxious, Labile and Apprehensive Affect Description: Anxious Patient Cognition Impaired: No Ability to Follow Directions: Good Speech Pattern: Perseverating, Spontaneous Speech, Rapid and Pressured Memory Description: Episodic Impaired Hallucinations: None Delusions: Present Perceptual Disturbances: Depersonalization and Derealization Thought Process: Racing and Goal Oriented Thought Content: positive for Racing and positive for Goal Oriented Depressive Symptoms: Increased Anxiety, Hopelessness and Unhappiness Abnormal Motor Activity Signs and Symptoms: Restlessness Judgement: Fair Diagnostics Vital Signs (24Hr): Vital Signs - 24 hr 04/01/23 18:00 04/02/23 08:05 Temperature 97.9 F 97.4 F Pulse Rate 105 H 100 Respiratory Rate 16 18 Blood Pressure 136/60 111/78 Pulse Oximetry 94 95 Oxygen Delivery Method Room Air Room Air BMI result Body Mass Index 34.9 Labs 04/02/23 08:21 03/25/23 11:34 Labs: Laboratory Results - last 48 hr 03/31/23 04/01/23 04/02/23 21:39 08:07 08:16 WBC RBC Hgb Hct MCV MCH MCHC RDW Plt Count MPV Immature Gran % (Auto) Neut % (Auto) Lymph % (Auto) [place] % (Auto) Eos % (Auto) Baso % (Auto) Lymph # (Auto) [place] # (Auto) Eos # (Auto) Baso # (Auto) Abs Immat Gran (auto) Absolute Neuts (auto) Absolute Nucleated RBC Nucleated RBC % (auto) POC Glucose 131 H 161 H 120 H Carbamazepine 04/02/23 08:21 WBC 10.5 RBC 4.26 Hgb 13.4 Hct 40.5 MCV 95.1 MCH 31.5 MCHC 33.1 RDW 13.2 Plt Count 203 MPV 9.6 Immature Gran % (Auto) 0.4 Neut % (Auto) 50.5 Lymph % (Auto) 39.6 [place] % (Auto) 6.3 Eos % (Auto) 2.7 Baso % (Auto) 0.5 Lymph # (Auto) 4.1 [place] # (Auto) 0.7 Eos # (Auto) 0.3 Baso # (Auto) 0.1 Abs Immat Gran (auto) 0.04 H Absolute Neuts (auto) 5.3 Absolute Nucleated RBC 0.000 Nucleated RBC % (auto) 0.0 POC Glucose Carbamazepine 8.8 Medications Medications Current Medications Acetaminophen (Acetaminophen 325 Mg Tablet) 650 mg PO Q6H PRN PRN Reason: Headache/Pain Mild Scale (1-3) Al Hydroxide/Mg Hydroxide (Magnesium Hydrox/Alum Hydrox 30 Ml Oral.Susp) 30 ml PO Q6H PRN PRN Reason: Heartburn/Nausea Amlodipine Besylate (Amlodipine Besylate 2.5 Mg Tablet) 2.5 mg PO DAILY [facility]; Protocol Last Admin: 04/02/23 08:51 Dose: 2.5 mg Aripiprazole (Aripiprazole 15 Mg Tablet) 15 mg PO DAILY [facility] Last Admin: 04/02/23 08:51 Dose: 15 mg Aspirin (Aspirin Enteric Coated 81 Mg Tablet.Dr) 81 mg PO DAILY [facility] Last Admin: 04/02/23 08:51 Dose: 81 mg Atorvastatin Calcium (Atorvastatin Calcium 40 Mg Tablet) 40 mg PO BEDTIME [facility] Last Admin: 04/01/23 22:15 Dose: 40 mg Benztropine Mesylate (Benztropine Mesylate 1 Mg Tablet) 1 mg PO DAILY [facility] Last Admin: 04/02/23 08:51 Dose: 1 mg Carbamazepine (Carbamazepine Er 200 Mg Tab.Er.12h) 400 mg PO BEDTIME [facility] Last Admin: 04/01/23 22:14 Dose: 400 mg Carbamazepine (Carbamazepine Er 200 Mg Tab.Er.12h) 200 mg PO DAILY [facility] Last Admin: 04/02/23 08:51 Dose: 200 mg Cefuroxime Axetil (Cefuroxime Axetil 500 Mg Tablet) 500 mg PO BID [facility] Last Admin: 04/02/23 08:51 Dose: 500 mg Cyanocobalamin (Cyanocobalamin (Vitamin B-12) 100 Mcg Tablet) 100 mcg PO DAILY [facility] Last Admin: 04/02/23 08:52 Dose: 100 mcg Furosemide (Furosemide 20 Mg Tablet) 20 mg PO DAILY [facility]; Protocol Last Admin: 04/02/23 08:51 Dose: 20 mg Hydroxyzine HCl (Hydroxyzine Hcl 25 Mg Tablet) 25 mg PO Q6H PRN PRN Reason: Anxiety Last Admin: 03/30/23 16:27 Dose: 25 mg Lorazepam (Lorazepam 1 Mg Tablet) 1 mg PO BEDTIME PRN PRN Reason: anxiety Last Admin: 04/01/23 22:15 Dose: 1 mg Magnesium Hydroxide (Milk Of Magnesia 30 Ml Oral.Susp) 30 ml PO DAILY PRN PRN Reason: Constipation Last Admin: 03/31/23 16:43 Dose: 30 ml Magnesium Oxide (Magnesium Oxide 400 Mg Tablet) 400 mg PO DAILY [facility] Last Admin: 04/02/23 08:51 Dose: 400 mg Metoprolol Succinate (Metoprolol Succinate Er 12.5 Mg Halftab.Er.24h) 12.5 mg PO DAILY [facility]; Protocol Last Admin: 04/02/23 08:51 Dose: 12.5 mg Pt Own (Trulicity 3 (Mg)) 3 mg SUBCUT Q7D [facility] Last Admin: 03/28/23 10:18 Dose: 3 mg Polyethylene Glycol (Polyethylene Glycol 3350 17 Gm Powd.Pack) 17 gm PO DAILY PRN PRN Reason: Constipation Last Admin: 03/30/23 13:46 Dose: 17 gm Quetiapine Fumarate (Quetiapine Fumarate 300 Mg Tablet) 300 mg PO BEDTIME [facility] Last Admin: 04/01/23 22:16 Dose: Not Given Quetiapine Fumarate (Quetiapine Fumarate 50 Mg Tablet) 50 mg PO BID PRN PRN Reason: becca, agitation Thyroid (Thyroid,Pork 30 Mg Tablet) 15 mg PO DAILY@0630 [facility] Last Admin: 04/02/23 06:08 Dose: 15 mg Trazodone HCl (Trazodone Hcl 50 Mg Tablet) 50 mg PO BEDTIME MRX1 PRN PRN Reason: Insomnia Last Admin: 04/01/23 03:14 Dose: 50 mg Vitamin D (Cholecalciferol (Vitamin D3) 10 Mcg Tablet) 10 mcg PO DAILY [facility] Last Admin: 04/02/23 08:51 Dose: 10 mcg Zolpidem Tartrate (Zolpidem Tartrate 5 Mg Tablet) 10 mg PO BEDTIME [facility] Last Admin: 04/01/23 22:13 Dose: 10 mg Allergies Allergies Allergy/AdvReac Type Severity Reaction Status Date / Time amoxicillin Allergy Unknown Unknown Uncoded 03/25/23 11:07 Pt states no food allergy Allergy Unknown Unknown Uncoded 03/25/23 11:07 Assessment & Plan Assessment & Plan (1) PTSD (post-traumatic stress disorder): Status: Acute Code(s): F43.10 - Post-traumatic stress disorder, unspecified (2) Bipolar affective disorder, manic, severe, with psychotic behavior: Status: Acute Code(s): F31.2 - Bipolar disorder, current episode manic severe with psychotic features Plan 62 yo female, history of PTSD, Bipolar Disorder with Psychosis, self presents reporting she has stopped medications. She asks to go to [place], however, is willing to work with the team on at this time. She has stopped meds and is willing to re-start. She has several requests regarding meds which were addressed, however, she will be making further requests as her treatment continues. At this time, she reports being controlled by Estefania Mosqueda in all aspects of her life. This has caused great fear and anxiety. Pt has written several pages regarding this issue and is willing to share these. During our meeting she presents with acute becca, feeling overwhelmed with being controlled and vulnerable. Attempted to offer support, structure, safety for pt today. She has been able to appear to move freely in milieu, sing, dance and appears to feel comfortable and safe while settling in. Plan: Re-establish regime, medical and psychiatric Abilify 5 mg daily- pt request this trial, reports effective history. Today, pt has had ambivalence about Miralax order, asking ~7 times to start and stop. As of this writing, she asks that we not put it on her list of meds. Full milieu Collateral contact Diagnostics as needed. 03/28: Continue current regimen and plans 03/29: Continue current regimen and plans. Increased Abilify to 10 mg and Ambien to 10 mg 03/30: Continue current plans and regimen 03/31: Will file Section 7 on 04/01. 04/02/23: DC Seroquel at HS Increase Trazodone to 75 mg HS. MR x1. Ceftin to stop 04/03. Patient educated on: medication risk/benefits Informed Consent: understands and further education needed Reason for continued inpatient stay Substantial Risk for: rapid decompensation Time Spent With Patient Time: Total time managing care of this patient today ____ minutes.
[2023-04-02 18:00] VITALS: BP 122/84; PULSE 68; TEMP 36.8; O2SAT 99
[2023-04-02] MEDS: Atorvastatin Calcium 40 MG TABLET PO (21:28)
[2023-04-02] MEDS: carBAMazepine ER 200 MG TAB.ER.12H 400 MG PO (21:29)
[2023-04-02] MEDS: Zolpidem Tartrate 5 MG TABLET 10 MG PO (21:29)
[2023-04-02] MEDS: traZODone HCL 25 MG HALFTAB 75 MG PO (21:35)
[2023-04-03] MEDS: LORazepam 1 MG TABLET PO (03:01)
[2023-04-03] MEDS: Thyroid,Pork 30 MG TABLET 15 MG PO (06:21)
[2023-04-03 08:04] VITALS: BP 116/68; PULSE 87; RESP 16; TEMP 36.6; O2SAT 92
[2023-04-03 08:18] LABS: Glucose, Whole Blood 147 mg/dL (60-115)
[2023-04-03] MEDS: Cyanocobalamin (Vitamin B-12) 100 MCG TABLET PO (08:33)
[2023-04-03] MEDS: Aspirin Enteric Coated 81 MG TABLET.DR PO (08:34)
[2023-04-03] MEDS: Magnesium Oxide 400 MG TABLET PO (08:34)
[2023-04-03] MEDS: ARIPiprazole 15 MG TABLET PO (08:34)
[2023-04-03] MEDS: Metoprolol Succinate ER 12.5 MG HALFTAB.ER.24H PO (08:34)
[2023-04-03] MEDS: carBAMazepine ER 200 MG TAB.ER.12H PO (08:35)
[2023-04-03] MEDS: amLODIPine Besylate 2.5 MG TABLET PO (08:35)
[2023-04-03] MEDS: Furosemide 20 MG TABLET PO (08:35)
[2023-04-03] MEDS: Benztropine Mesylate 1 MG TABLET PO (08:36)
[2023-04-03] MEDS: Cholecalciferol (Vitamin D3) 10 MCG TABLET PO (08:36)
--- NOTE | 2023-04-03 16:13 | P.PNPSI_ITS ---
Subjective Subjective Date of Service: 04/03/23 Reason For Visit: Bipolar Disorder Subjective Notes: 3 Day Healthcare Proxy: No Guardianship: No Medical Problems Affecting Mental Status: No Interim History: Increased intensity of concern that family's phones have been bugged/tapped. Multiple calls to police. Phone calls require supervision at this point. Agrees to increase Abilify to 10 mg bid. Three day notice signed. Medication Compliance: Intermittent Side effects from medications: No Attending Groups: Intermittent Review of Systems Acute medical concerns: No Medical Review of Systems: unchanged Review of Systems Review of Systems Yes Unobtainable due to mental status Mental Status Exam Mental Status Exam Patient Appearance: Fatigued Patient Orientation: Person, Place, Time and Situation Level of Consciousness: Awake and Alert Patient Behavior: Appropriate, Talkative, Cooperative, Suspicious, Distractible and Good Eye Contact Mood Description: Suspicious, Anxious, Labile and Apprehensive Affect Description: Anxious Patient Cognition Impaired: No Ability to Follow Directions: Good Speech Pattern: Perseverating, Spontaneous Speech, Rapid and Pressured Memory Description: Episodic Impaired Hallucinations: None Delusions: Present Perceptual Disturbances: Depersonalization and Derealization Thought Process: Racing and Goal Oriented Thought Content: positive for Racing and positive for Goal Oriented Depressive Symptoms: Increased Anxiety, Hopelessness and Unhappiness Abnormal Motor Activity Signs and Symptoms: Restlessness Judgement: Fair Diagnostics Vital Signs (24Hr): Vital Signs - 24 hr 04/02/23 18:00 04/03/23 08:04 Temperature 98.2 F 97.9 F Pulse Rate 68 87 Respiratory Rate 16 Blood Pressure 122/84 116/68 Pulse Oximetry 99 92 Oxygen Delivery Method Room Air Room Air BMI result Body Mass Index 34.9 Labs 04/02/23 08:21 03/25/23 11:34 Labs: Laboratory Results - last 48 hr 04/02/23 04/02/23 04/03/23 08:16 08:21 08:14 WBC 10.5 RBC 4.26 Hgb 13.4 Hct 40.5 MCV 95.1 MCH 31.5 MCHC 33.1 RDW 13.2 Plt Count 203 MPV 9.6 Immature Gran % (Auto) 0.4 Neut % (Auto) 50.5 Lymph % (Auto) 39.6 [place] % (Auto) 6.3 Eos % (Auto) 2.7 Baso % (Auto) 0.5 Lymph # (Auto) 4.1 [place] # (Auto) 0.7 Eos # (Auto) 0.3 Baso # (Auto) 0.1 Abs Immat Gran (auto) 0.04 H Absolute Neuts (auto) 5.3 Absolute Nucleated RBC 0.000 Nucleated RBC % (auto) 0.0 POC Glucose 120 H 147 H Carbamazepine 8.8 Medications Medications Current Medications Acetaminophen (Acetaminophen 325 Mg Tablet) 650 mg PO Q6H PRN PRN Reason: Headache/Pain Mild Scale (1-3) Al Hydroxide/Mg Hydroxide (Magnesium Hydrox/Alum Hydrox 30 Ml Oral.Susp) 30 ml PO Q6H PRN PRN Reason: Heartburn/Nausea Amlodipine Besylate (Amlodipine Besylate 2.5 Mg Tablet) 2.5 mg PO DAILY [facility]; Protocol Last Admin: 04/03/23 08:35 Dose: 2.5 mg Aripiprazole (Aripiprazole 10 Mg Tablet) 10 mg PO BID [facility] Aspirin (Aspirin Enteric Coated 81 Mg Tablet.Dr) 81 mg PO DAILY [facility] Last Admin: 04/03/23 08:34 Dose: 81 mg Atorvastatin Calcium (Atorvastatin Calcium 40 Mg Tablet) 40 mg PO BEDTIME [facility] Last Admin: 04/02/23 21:28 Dose: 40 mg Benztropine Mesylate (Benztropine Mesylate 1 Mg Tablet) 1 mg PO DAILY [facility] Last Admin: 04/03/23 08:36 Dose: 1 mg Carbamazepine (Carbamazepine Er 200 Mg Tab.Er.12h) 400 mg PO BEDTIME [facility] Last Admin: 04/02/23 21:29 Dose: 400 mg Carbamazepine (Carbamazepine Er 200 Mg Tab.Er.12h) 200 mg PO DAILY [facility] Last Admin: 04/03/23 08:35 Dose: 200 mg Cyanocobalamin (Cyanocobalamin (Vitamin B-12) 100 Mcg Tablet) 100 mcg PO DAILY [facility] Last Admin: 04/03/23 08:33 Dose: 100 mcg Furosemide (Furosemide 20 Mg Tablet) 20 mg PO DAILY [facility]; Protocol Last Admin: 04/03/23 08:35 Dose: 20 mg Hydroxyzine HCl (Hydroxyzine Hcl 25 Mg Tablet) 25 mg PO Q6H PRN PRN Reason: Anxiety Last Admin: 03/30/23 16:27 Dose: 25 mg Lorazepam (Lorazepam 1 Mg Tablet) 1 mg PO BEDTIME PRN PRN Reason: anxiety Last Admin: 04/03/23 03:01 Dose: 1 mg Magnesium Hydroxide (Milk Of Magnesia 30 Ml Oral.Susp) 30 ml PO DAILY PRN PRN Reason: Constipation Last Admin: 03/31/23 16:43 Dose: 30 ml Magnesium Oxide (Magnesium Oxide 400 Mg Tablet) 400 mg PO DAILY [facility] Last Admin: 04/03/23 08:34 Dose: 400 mg Metoprolol Succinate (Metoprolol Succinate Er 12.5 Mg Halftab.Er.24h) 12.5 mg PO DAILY [facility]; Protocol Last Admin: 04/03/23 08:34 Dose: 12.5 mg Pt Own (Trulicity 3 (Mg)) 3 mg SUBCUT Q7D [facility] Last Admin: 03/28/23 10:18 Dose: 3 mg Polyethylene Glycol (Polyethylene Glycol 3350 17 Gm Powd.Pack) 17 gm PO DAILY PRN PRN Reason: Constipation Last Admin: 03/30/23 13:46 Dose: 17 gm Quetiapine Fumarate (Quetiapine Fumarate 50 Mg Tablet) 50 mg PO BID PRN PRN Reason: becca, agitation Thyroid (Thyroid,Pork 30 Mg Tablet) 15 mg PO DAILY@0630 [facility] Last Admin: 04/03/23 06:21 Dose: 15 mg Trazodone HCl (Trazodone Hcl 25 Mg Halftab) 75 mg PO BEDTIME MRX1 PRN PRN Reason: Insomnia Last Admin: 04/02/23 21:35 Dose: 75 mg Vitamin D (Cholecalciferol (Vitamin D3) 10 Mcg Tablet) 10 mcg PO DAILY [facility] Last Admin: 04/03/23 08:36 Dose: 10 mcg Zolpidem Tartrate (Zolpidem Tartrate 5 Mg Tablet) 10 mg PO BEDTIME [facility] Last Admin: 04/02/23 21:29 Dose: 10 mg Allergies Allergies Allergy/AdvReac Type Severity Reaction Status Date / Time amoxicillin Allergy Unknown Unknown Uncoded 03/25/23 11:07 Pt states no food allergy Allergy Unknown Unknown Uncoded 03/25/23 11:07 Assessment & Plan Assessment & Plan (1) PTSD (post-traumatic stress disorder): Status: Acute Code(s): F43.10 - Post-traumatic stress disorder, unspecified (2) Bipolar affective disorder, manic, severe, with psychotic behavior: Status: Acute Code(s): F31.2 - Bipolar disorder, current episode manic severe with psychotic features Plan 62 yo female, history of PTSD, Bipolar Disorder with Psychosis, self presents reporting she has stopped medications. She asks to go to [place], however, is willing to work with the team on [facility]5 at this time. She has stopped meds and is willing to re-start. She has several requests regarding meds which were addressed, however, she will be making further requests as her treatment continues. At this time, she reports being controlled by Estefania Mosqueda in all aspects of her life. This has caused great fear and anxiety. Pt has written several pages regarding this issue and is willing to share these. During our meeting she presents with acute becca, feeling overwhelmed with being controlled and vulnerable. Attempted to offer support, structure, safety for pt today. She has been able to appear to move freely in milieu, sing, dance and appears to feel comfortable and safe while settling in. Plan: Re-establish regime, medical and psychiatric Abilify 5 mg daily- pt request this trial, reports effective history. Today, pt has had ambivalence about Miralax order, asking ~7 times to start and stop. As of this writing, she asks that we not put it on her list of meds. Full milieu Collateral contact Diagnostics as needed. 03/28: Continue current regimen and plans 03/29: Continue current regimen and plans. Increased Abilify to 10 mg and Ambien to 10 mg 03/30: Continue current plans and regimen 03/31: Will file Section 7 on 04/01. 04/02/23: DC Seroquel at HS Increase Trazodone to 75 mg HS. MR x1. Ceftin to stop 04/03. 04/03/23: Increase Abilify to 10 mg bid Reason for continued inpatient stay Substantial Risk for: rapid decompensation Time Spent With Patient Time: Total time managing care of this patient today ____ minutes.
[2023-04-03 18:00] VITALS: BP 148/72; PULSE 107; TEMP 36.6
[2023-04-03] MEDS: traZODone HCL 25 MG HALFTAB 75 MG PO (20:08)
[2023-04-03] MEDS: Atorvastatin Calcium 40 MG TABLET PO (20:09)
[2023-04-03] MEDS: Zolpidem Tartrate 5 MG TABLET 10 MG PO (20:09)
[2023-04-03] MEDS: carBAMazepine ER 200 MG TAB.ER.12H 400 MG PO (20:09)
[2023-04-03] MEDS: ARIPiprazole 10 MG TABLET PO (20:10)
[2023-04-04] MEDS: LORazepam 1 MG TABLET PO ×2 (02:09→23:06)
[2023-04-04] MEDS: Thyroid,Pork 30 MG TABLET 15 MG PO (05:42)
[2023-04-04 08:30] LABS: Glucose, Whole Blood 138 mg/dL (60-115)
[2023-04-04] MEDS: Cholecalciferol (Vitamin D3) 10 MCG TABLET PO (08:46)
[2023-04-04] MEDS: Furosemide 20 MG TABLET PO (08:46)
[2023-04-04] MEDS: carBAMazepine ER 200 MG TAB.ER.12H PO (08:46)
[2023-04-04] MEDS: amLODIPine Besylate 2.5 MG TABLET PO (08:46)
[2023-04-04] MEDS: Magnesium Oxide 400 MG TABLET PO (08:46)
[2023-04-04] MEDS: Aspirin Enteric Coated 81 MG TABLET.DR PO (08:47)
[2023-04-04] MEDS: Benztropine Mesylate 1 MG TABLET PO (08:47)
[2023-04-04] MEDS: Metoprolol Succinate ER 12.5 MG HALFTAB.ER.24H PO (08:47)
[2023-04-04] MEDS: ARIPiprazole 10 MG TABLET PO ×2 (08:48→23:05)
[2023-04-04] MEDS: Cyanocobalamin (Vitamin B-12) 100 MCG TABLET PO (08:48)
[2023-04-04 09:28] VITALS: BP 139/64; PULSE 98; RESP 16; TEMP 36.4; O2SAT 96
--- NOTE | 2023-04-04 12:41 | HE.PHANOTE ---
Addendum entered by Karol Dacosta michael 04/04/23 13:50: SECOND TRULICITY PEN DISPENSED AFTER PT ATTEMPTED TO SELF ADMINISTER AND SOMEHOW MISSED AND MEDICATION WAS INJECTED ONTO FLOOR IN KITCHEN IN M5. INCIDENT REPORT FILED BY MICHAEL WILHELM AND NURSING NOTE ENTERED BY ALFREDO HICKS Original Note: RE: PT OWN TRULICITY Patient due for dose 04/04/23 - note attached to patient own medication bag stated she had pens out of the refrigerator for about a week prior to admission on 03/25 making the expiration per FDA package label 04/01. Then nurse Beata Rivera and Cheryl Owens (Nursing reinforced steel placing supervisor) messaged and said that was incorrect and that the pens were taken out 03/26/23 the latest, making the expiration out of the refrigerator 04/09/23. Provider and nursing insistent on this and provider would still like patient to receieve the dose. Patient presented at [facility] on 03/25 but nursing and patient insist on med not being taken out until 03/26 - train of refrigeration unclear due to many discrepancies but provider is aware and would still like patient to receive dose.
--- NOTE | 2023-04-04 13:23 | PC.NURSE ---
Pt accidentally misadministered Trulicity by holding the pen upside down. When she felt the needle of the pen touch her finger she immediately pulled her hand away and the medication dispensed onto the floor. Pt was uninjured by the incident. Pharmacy alerted to medication waste so that another pen could be dispensed.
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
[2023-04-04 17:46] VITALS: PULSE 95; TEMP 36.9; O2SAT 95
[2023-04-04] MEDS: Zolpidem Tartrate 5 MG TABLET 10 MG PO (23:04)
[2023-04-04] MEDS: Atorvastatin Calcium 40 MG TABLET PO (23:04)
[2023-04-04] MEDS: carBAMazepine ER 200 MG TAB.ER.12H 400 MG PO (23:05)
[2023-04-05] MEDS: Thyroid,Pork 30 MG TABLET 15 MG PO (06:17)
[2023-04-05 08:23] LABS: Glucose, Whole Blood 117 mg/dL (60-115)
[2023-04-05 08:26] VITALS: BP 142/77; PULSE 90; RESP 16; TEMP 36.6; O2SAT 96
[2023-04-05] MEDS: Metoprolol Succinate ER 12.5 MG HALFTAB.ER.24H PO (10:08)
[2023-04-05] MEDS: carBAMazepine ER 200 MG TAB.ER.12H PO (10:09)
[2023-04-05] MEDS: Magnesium Oxide 400 MG TABLET PO (10:09)
[2023-04-05] MEDS: ARIPiprazole 10 MG TABLET PO ×2 (10:09→21:47)
[2023-04-05] MEDS: Furosemide 20 MG TABLET PO (10:09)
[2023-04-05] MEDS: amLODIPine Besylate 2.5 MG TABLET PO (10:10)
[2023-04-05] MEDS: Benztropine Mesylate 1 MG TABLET PO (10:10)
[2023-04-05] MEDS: Aspirin Enteric Coated 81 MG TABLET.DR PO (10:10)
[2023-04-05] MEDS: Cholecalciferol (Vitamin D3) 10 MCG TABLET PO (10:10)
[2023-04-05] MEDS: Cyanocobalamin (Vitamin B-12) 100 MCG TABLET PO (10:10)
--- NOTE | 2023-04-05 14:53 | P.PNPSI_ITS ---
Subjective Subjective Date of Service: 04/05/23 Reason For Visit: Bipolar Disorder Interim History: Sawyer continues manic and psychotic. She talks about a person that implanted a metal monitoring device in her jaw. Delusions of being controlled. She writes notes to this examiner (in paper chart) with delusional events that happened. Says she wants to be transferred to [facility] but provides no logical reason for the request. She is in the same time aware she has bipolar disorder and has been cooperative with treatment. She agrees to check her Tegretol level in AM and see if there is room to increase the dose. Last level was 8.8 on 04/02/23. She is tolerating Abilify. Review of Systems Review of Systems As per HPI. Yes all other systems are reviewed and are negative and Unobtainable due to mental status Constitutional: Reports as per HPI Mental Status Exam Mental Status Exam Patient Appearance: Fatigued Patient Orientation: Person, Place, Time and Situation Level of Consciousness: Awake and Alert Patient Behavior: Appropriate, Talkative, Cooperative, Suspicious, Distractible and Good Eye Contact Mood Description: Suspicious, Anxious, Labile and Apprehensive Affect Description: Anxious Patient Cognition Impaired: No Ability to Follow Directions: Good Speech Pattern: Perseverating, Spontaneous Speech, Rapid and Pressured Memory Description: Episodic Impaired Diagnostics Vital Signs (24Hr): Vital Signs - 24 hr 04/04/23 17:46 04/05/23 08:26 Temperature 98.5 F 97.9 F Pulse Rate 95 90 Respiratory Rate 16 Blood Pressure 142/77 H Pulse Oximetry 95 96 Oxygen Delivery Method Room Air Room Air BMI result Body Mass Index 34.9 Labs 04/02/23 08:21 03/25/23 11:34 Labs: Laboratory Results - last 48 hr 04/04/23 04/05/23 08:26 08:19 POC Glucose 138 H 117 H Medications Medications Current Medications Acetaminophen (Acetaminophen 325 Mg Tablet) 650 mg PO Q6H PRN PRN Reason: Headache/Pain Mild Scale (1-3) Al Hydroxide/Mg Hydroxide (Magnesium Hydrox/Alum Hydrox 30 Ml Oral.Susp) 30 ml PO Q6H PRN PRN Reason: Heartburn/Nausea Amlodipine Besylate (Amlodipine Besylate 2.5 Mg Tablet) 2.5 mg PO DAILY [facility]; Protocol Last Admin: 04/05/23 10:10 Dose: 2.5 mg Aripiprazole (Aripiprazole 10 Mg Tablet) 10 mg PO BID [facility] Last Admin: 04/05/23 10:09 Dose: 10 mg Aspirin (Aspirin Enteric Coated 81 Mg Tablet.Dr) 81 mg PO DAILY [facility] Last Admin: 04/05/23 10:10 Dose: 81 mg Atorvastatin Calcium (Atorvastatin Calcium 40 Mg Tablet) 40 mg PO BEDTIME [facility] Last Admin: 04/04/23 23:04 Dose: 40 mg Benztropine Mesylate (Benztropine Mesylate 1 Mg Tablet) 1 mg PO DAILY [facility] Last Admin: 04/05/23 10:10 Dose: 1 mg Carbamazepine (Carbamazepine Er 200 Mg Tab.Er.12h) 400 mg PO BEDTIME [facility] Last Admin: 04/04/23 23:05 Dose: 400 mg Carbamazepine (Carbamazepine Er 200 Mg Tab.Er.12h) 200 mg PO DAILY [facility] Last Admin: 04/05/23 10:09 Dose: 200 mg Cyanocobalamin (Cyanocobalamin (Vitamin B-12) 100 Mcg Tablet) 100 mcg PO DAILY [facility] Last Admin: 04/05/23 10:10 Dose: 100 mcg Furosemide (Furosemide 20 Mg Tablet) 20 mg PO DAILY [facility]; Protocol Last Admin: 04/05/23 10:09 Dose: 20 mg Hydroxyzine HCl (Hydroxyzine Hcl 25 Mg Tablet) 25 mg PO Q6H PRN PRN Reason: Anxiety Last Admin: 03/30/23 16:27 Dose: 25 mg Lorazepam (Lorazepam 1 Mg Tablet) 1 mg PO BEDTIME PRN PRN Reason: anxiety Last Admin: 04/04/23 23:06 Dose: 1 mg Magnesium Hydroxide (Milk Of Magnesia 30 Ml Oral.Susp) 30 ml PO DAILY PRN PRN Reason: Constipation Last Admin: 03/31/23 16:43 Dose: 30 ml Magnesium Oxide (Magnesium Oxide 400 Mg Tablet) 400 mg PO DAILY [facility] Last Admin: 04/05/23 10:09 Dose: 400 mg Metoprolol Succinate (Metoprolol Succinate Er 12.5 Mg Halftab.Er.24h) 12.5 mg PO DAILY [facility]; Protocol Last Admin: 04/05/23 10:08 Dose: 12.5 mg Pt Own (Trulicity 3 (Mg)) 3 mg SUBCUT Q7D [facility] Last Admin: 04/04/23 13:58 Dose: 3 mg Polyethylene Glycol (Polyethylene Glycol 3350 17 Gm Powd.Pack) 17 gm PO DAILY PRN PRN Reason: Constipation Last Admin: 03/30/23 13:46 Dose: 17 gm Quetiapine Fumarate (Quetiapine Fumarate 50 Mg Tablet) 50 mg PO BID PRN PRN Reason: becca, agitation Thyroid (Thyroid,Pork 30 Mg Tablet) 15 mg PO DAILY@0630 [facility] Last Admin: 04/05/23 06:17 Dose: 15 mg Trazodone HCl (Trazodone Hcl 25 Mg Halftab) 75 mg PO BEDTIME MRX1 PRN PRN Reason: Insomnia Last Admin: 04/03/23 20:08 Dose: 25 mg Vitamin D (Cholecalciferol (Vitamin D3) 10 Mcg Tablet) 10 mcg PO DAILY [facility] Last Admin: 04/05/23 10:10 Dose: 10 mcg Zolpidem Tartrate (Zolpidem Tartrate 5 Mg Tablet) 10 mg PO BEDTIME [facility] Last Admin: 04/04/23 23:04 Dose: 10 mg Allergies Allergies Allergy/AdvReac Type Severity Reaction Status Date / Time amoxicillin Allergy Unknown Unknown Uncoded 03/25/23 11:07 Pt states no food allergy Allergy Unknown Unknown Uncoded 03/25/23 11:07 Assessment & Plan Assessment & Plan (1) PTSD (post-traumatic stress disorder): Status: Acute Code(s): F43.10 - Post-traumatic stress disorder, unspecified (2) Bipolar affective disorder, manic, severe, with psychotic behavior: Status: Acute Code(s): F31.2 - Bipolar disorder, current episode manic severe with psychotic features Plan 62 yo female, history of PTSD, Bipolar Disorder with Psychosis, self presents reporting she has stopped medications. She asks to go to [place], however, is willing to work with the team on M5 at this time. She has stopped meds and is willing to re-start. She has several requests regarding meds which were addressed, however, she will be making further requests as her treatment continues. At this time, she reports being controlled by Estefania Mosqueda in all aspects of her life. This has caused great fear and anxiety. Pt has written several pages regarding this issue and is willing to share these. During our meeting she presents with acute becca, feeling overwhelmed with being controlled and vulnerable. Attempted to offer support, structure, safety for pt today. She has been able to appear to move freely in milieu, sing, dance and appears to feel comfortable and safe while settling in. Plan: Re-establish regime, medical and psychiatric Abilify 5 mg daily- pt request this trial, reports effective history. Today, pt has had ambivalence about Miralax order, asking ~7 times to start and stop. As of this writing, she asks that we not put it on her list of meds. Full milieu Collateral contact Diagnostics as needed. 03/28: Continue current regimen and plans 03/29: Continue current regimen and plans. Increased Abilify to 10 mg and Ambien to 10 mg 03/30: Continue current plans and regimen 03/31: Will file Section 7 on 04/01. 04/02/23: DC Seroquel at HS Increase Trazodone to 75 mg HS. MR x1. Ceftin to stop 04/03. 04/03/23: Increase Abilify to 10 mg bid 04/04: Continue current management and treatment plan. 04/05: check Tegretol level in AM and consider titration based on level and consider titration of Abilify. Reason for continued inpatient stay Substantial Risk for: inability to function and rapid decompensation Time Spent With Patient Time: Total time managing care of this patient today ____ minutes.
[2023-04-05 17:01] VITALS: BP 143/83; PULSE 97; RESP 16; TEMP 36.4; O2SAT 97
[2023-04-05 21:11] LABS: Glucose, Whole Blood 124 mg/dL (60-115)
[2023-04-05] MEDS: carBAMazepine ER 200 MG TAB.ER.12H 400 MG PO (21:47)
[2023-04-05] MEDS: Zolpidem Tartrate 5 MG TABLET 10 MG PO (21:47)
[2023-04-06] MEDS: Thyroid,Pork 30 MG TABLET 15 MG PO (06:47)
[2023-04-06 08:07] LABS: Glucose, Whole Blood 162 mg/dL (60-115)
[2023-04-06 08:20] VITALS: BP 126/60; PULSE 87; RESP 18; TEMP 36.7; O2SAT 95
[2023-04-06 08:47] LABS: Carbamazepine Tegretol 9.9 mcg/mL (5.0-12.0)
[2023-04-06] MEDS: Benztropine Mesylate 1 MG TABLET PO (09:29)
[2023-04-06] MEDS: Aspirin Enteric Coated 81 MG TABLET.DR PO (09:29)
[2023-04-06] MEDS: ARIPiprazole 10 MG TABLET PO ×2 (09:29→21:50)
[2023-04-06] MEDS: amLODIPine Besylate 2.5 MG TABLET PO (09:29)
[2023-04-06] MEDS: Furosemide 20 MG TABLET PO (09:29)
[2023-04-06] MEDS: Cyanocobalamin (Vitamin B-12) 100 MCG TABLET PO (09:30)
[2023-04-06] MEDS: carBAMazepine ER 200 MG TAB.ER.12H PO (09:30)
[2023-04-06] MEDS: Magnesium Oxide 400 MG TABLET PO (09:30)
[2023-04-06] MEDS: Cholecalciferol (Vitamin D3) 10 MCG TABLET PO (09:30)
[2023-04-06] MEDS: Metoprolol Succinate ER 12.5 MG HALFTAB.ER.24H PO (09:30)
[2023-04-06] MEDS: Ondansetron ODT 4 MG TAB.RAPDIS TRANSLINGU (10:07)
[2023-04-06 19:53] VITALS: BP 143/71; PULSE 100; RESP 18; TEMP 36.4; O2SAT 96
[2023-04-06] MEDS: carBAMazepine ER 200 MG TAB.ER.12H 400 MG PO (21:49)
[2023-04-06] MEDS: LORazepam 1 MG TABLET PO (21:50)
[2023-04-06] MEDS: Atorvastatin Calcium 40 MG TABLET PO (21:50)
[2023-04-06] MEDS: Zolpidem Tartrate 5 MG TABLET 10 MG PO (21:50)
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
[2023-04-07] MEDS: Thyroid,Pork 30 MG TABLET 15 MG PO (06:47)
[2023-04-07 08:02] VITALS: BP 126/62; PULSE 95; RESP 16; TEMP 36.4; O2SAT 93
[2023-04-07 08:22] LABS: Glucose, Whole Blood 131 mg/dL (60-115)
[2023-04-07] MEDS: Metoprolol Succinate ER 12.5 MG HALFTAB.ER.24H PO (09:06)
[2023-04-07] MEDS: carBAMazepine ER 200 MG TAB.ER.12H PO (09:06)
[2023-04-07] MEDS: Aspirin Enteric Coated 81 MG TABLET.DR PO (09:06)
[2023-04-07] MEDS: Cyanocobalamin (Vitamin B-12) 100 MCG TABLET PO (09:06)
[2023-04-07] MEDS: Cholecalciferol (Vitamin D3) 10 MCG TABLET PO (09:06)
[2023-04-07] MEDS: ARIPiprazole 10 MG TABLET PO ×2 (09:07→20:14)
[2023-04-07] MEDS: Magnesium Oxide 400 MG TABLET PO (09:07)
[2023-04-07] MEDS: Benztropine Mesylate 1 MG TABLET PO (09:07)
[2023-04-07] MEDS: Furosemide 20 MG TABLET PO (09:07)
[2023-04-07] MEDS: amLODIPine Besylate 2.5 MG TABLET PO (09:07)
[2023-04-07] MEDS: Milk of Magnesia 30 ML ORAL.SUSP PO (09:11)
[2023-04-07] MEDS: Ondansetron ODT 4 MG TAB.RAPDIS TRANSLINGU (09:12)
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
[2023-04-07 19:35] VITALS: BP 126/65; PULSE 96; RESP 16; TEMP 36.6; O2SAT 96
[2023-04-07] MEDS: Atorvastatin Calcium 40 MG TABLET PO (20:13)
[2023-04-07] MEDS: carBAMazepine ER 200 MG TAB.ER.12H 400 MG PO (20:14)
[2023-04-07] MEDS: Zolpidem Tartrate 5 MG TABLET 10 MG PO (20:14)
[2023-04-08] MEDS: Thyroid,Pork 30 MG TABLET 15 MG PO (05:42)
[2023-04-08 06:00] VITALS: BP 111/71; PULSE 98; RESP 16; TEMP 36.4; O2SAT 94
[2023-04-08] MEDS: Ondansetron ODT 4 MG TAB.RAPDIS TRANSLINGU (07:56)
[2023-04-08] MEDS: Cholecalciferol (Vitamin D3) 10 MCG TABLET PO (08:13)
[2023-04-08] MEDS: Cyanocobalamin (Vitamin B-12) 100 MCG TABLET PO (08:13)
[2023-04-08] MEDS: ARIPiprazole 10 MG TABLET PO ×2 (08:13→21:49)
[2023-04-08] MEDS: Aspirin Enteric Coated 81 MG TABLET.DR PO (08:13)
[2023-04-08] MEDS: amLODIPine Besylate 2.5 MG TABLET PO (08:13)
[2023-04-08] MEDS: Magnesium Oxide 400 MG TABLET PO (08:13)
[2023-04-08] MEDS: Benztropine Mesylate 1 MG TABLET PO (08:13)
[2023-04-08] MEDS: carBAMazepine ER 200 MG TAB.ER.12H PO (08:13)
[2023-04-08] MEDS: Metoprolol Succinate ER 12.5 MG HALFTAB.ER.24H PO (08:13)
[2023-04-08] MEDS: Furosemide 20 MG TABLET PO (08:13)
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
[2023-04-08 21:48] LABS: Glucose, Whole Blood 126 mg/dL (60-115)
[2023-04-08] MEDS: Zolpidem Tartrate 5 MG TABLET 10 MG PO (21:48)
[2023-04-08] MEDS: carBAMazepine ER 200 MG TAB.ER.12H 400 MG PO (21:49)
[2023-04-08] MEDS: Atorvastatin Calcium 40 MG TABLET PO (21:49)
[2023-04-08] MEDS: LORazepam 1 MG TABLET PO (21:50)
[2023-04-08] MEDS: Milk of Magnesia 30 ML ORAL.SUSP PO (21:55)
[2023-04-09] MEDS: Thyroid,Pork 30 MG TABLET 15 MG PO (06:18)
[2023-04-09] MEDS: Ondansetron ODT 4 MG TAB.RAPDIS TRANSLINGU (06:57)
[2023-04-09 07:00] VITALS: BMI 35.7
[2023-04-09 08:00] VITALS: BP 134/67; PULSE 95; RESP 18; TEMP 36.4; O2SAT 95
[2023-04-09] MEDS: Cyanocobalamin (Vitamin B-12) 100 MCG TABLET PO (08:12)
[2023-04-09] MEDS: Metoprolol Succinate ER 12.5 MG HALFTAB.ER.24H PO (08:12)
[2023-04-09] MEDS: Benztropine Mesylate 1 MG TABLET PO (08:12)
[2023-04-09] MEDS: carBAMazepine ER 200 MG TAB.ER.12H PO (08:12)
[2023-04-09] MEDS: Aspirin Enteric Coated 81 MG TABLET.DR PO (08:12)
[2023-04-09] MEDS: Magnesium Oxide 400 MG TABLET PO (08:12)
[2023-04-09] MEDS: amLODIPine Besylate 2.5 MG TABLET PO (08:12)
[2023-04-09] MEDS: ARIPiprazole 10 MG TABLET PO ×2 (08:12→20:29)
[2023-04-09] MEDS: Furosemide 20 MG TABLET PO (08:12)
[2023-04-09] MEDS: Cholecalciferol (Vitamin D3) 10 MCG TABLET PO (08:12)
[2023-04-09 08:33] LABS: Glucose, Whole Blood 188 mg/dL (60-115)
--- NOTE | 2023-04-09 16:44 | P.PNPSI_ITS ---
Subjective Subjective Date of Service: 04/09/23 Reason For Visit: Bipolar Disorder Subjective Notes: Section 7 Interim History: pt pressured intense mood lability intense delusional preoccupation chart reviewed has refused consideration of injectabie medication on tegretol abilify was recntly on depakote pt had recently reportedly been threatening to family Mental Status Exam Mental Status Exam Patient Appearance: Appropriate Patient Orientation: Person, Place and Situation Level of Consciousness: Alert Patient Behavior: Appropriate, Talkative and Good Eye Contact Mood Description: Labile and Angry Affect Description: Labile Patient Cognition Impaired: No Ability to Follow Directions: Good Speech Pattern: Spontaneous Speech Memory Description: Intact and Episodic Impaired Hallucinations: Visual Delusions: Paranoid Ideation Perceptual Disturbances: Depersonalization Thought Process: Racing and Rumination Thought Content: positive for Perseveration Depressive Symptoms: Increased Anxiety, Insomnia and Unhappiness Judgement: Fair Diagnostics Vital Signs (24Hr): Vital Signs - 24 hr 04/09/23 08:00 Temperature 97.5 F Pulse Rate 95 Respiratory Rate 18 Blood Pressure 134/67 Pulse Oximetry 95 Oxygen Delivery Method Room Air BMI result Body Mass Index 35.7 Labs 04/02/23 08:21 03/25/23 11:34 Labs: Laboratory Results - last 48 hr 04/08/23 04/09/23 21:43 08:27 POC Glucose 126 H 188 H Medications Medications Current Medications Acetaminophen (Acetaminophen 325 Mg Tablet) 650 mg PO Q6H PRN PRN Reason: Headache/Pain Mild Scale (1-3) Al Hydroxide/Mg Hydroxide (Magnesium Hydrox/Alum Hydrox 30 Ml Oral.Susp) 30 ml PO Q6H PRN PRN Reason: Heartburn/Nausea Amlodipine Besylate (Amlodipine Besylate 2.5 Mg Tablet) 2.5 mg PO DAILY [facility]; Protocol Last Admin: 04/09/23 08:12 Dose: 2.5 mg Aripiprazole (Aripiprazole 10 Mg Tablet) 10 mg PO BID [facility] Last Admin: 04/09/23 08:12 Dose: 10 mg Aspirin (Aspirin Enteric Coated 81 Mg Tablet.Dr) 81 mg PO DAILY [facility] Last Admin: 04/09/23 08:12 Dose: 81 mg Atorvastatin Calcium (Atorvastatin Calcium 40 Mg Tablet) 40 mg PO BEDTIME [facility] Last Admin: 04/08/23 21:49 Dose: 40 mg Benztropine Mesylate (Benztropine Mesylate 1 Mg Tablet) 1 mg PO DAILY [facility] Last Admin: 04/09/23 08:12 Dose: 1 mg Carbamazepine (Carbamazepine Er 200 Mg Tab.Er.12h) 400 mg PO BEDTIME [facility] Last Admin: 04/08/23 21:49 Dose: 400 mg Carbamazepine (Carbamazepine Er 200 Mg Tab.Er.12h) 200 mg PO DAILY [facility] Last Admin: 04/09/23 08:12 Dose: 200 mg Cyanocobalamin (Cyanocobalamin (Vitamin B-12) 100 Mcg Tablet) 100 mcg PO DAILY [facility] Last Admin: 04/09/23 08:12 Dose: 100 mcg Furosemide (Furosemide 20 Mg Tablet) 20 mg PO DAILY [facility]; Protocol Last Admin: 04/09/23 08:12 Dose: 20 mg Hydroxyzine HCl (Hydroxyzine Hcl 25 Mg Tablet) 25 mg PO Q6H PRN PRN Reason: Anxiety Last Admin: 03/30/23 16:27 Dose: 25 mg Lorazepam (Lorazepam 1 Mg Tablet) 1 mg PO BEDTIME PRN PRN Reason: anxiety Last Admin: 04/08/23 21:50 Dose: 1 mg Magnesium Hydroxide (Milk Of Magnesia 30 Ml Oral.Susp) 30 ml PO DAILY PRN PRN Reason: Constipation Last Admin: 04/08/23 21:55 Dose: 30 ml Magnesium Oxide (Magnesium Oxide 400 Mg Tablet) 400 mg PO DAILY [facility] Last Admin: 04/09/23 08:12 Dose: 400 mg Metoprolol Succinate (Metoprolol Succinate Er 12.5 Mg Halftab.Er.24h) 12.5 mg PO DAILY [facility]; Protocol Last Admin: 04/09/23 08:12 Dose: 12.5 mg Pt Own (Trulicity 3 (Mg)) 3 mg SUBCUT Q7D [facility] Last Admin: 04/04/23 13:58 Dose: 3 mg Ondansetron HCl (Ondansetron Odt 4 Mg Tab.Rapdis) 4 mg TRANSLINGU Q6H PRN PRN Reason: Nausea Last Admin: 04/09/23 06:57 Dose: 4 mg Polyethylene Glycol (Polyethylene Glycol 3350 17 Gm Powd.Pack) 17 gm PO DAILY PRN PRN Reason: Constipation Last Admin: 03/30/23 13:46 Dose: 17 gm Quetiapine Fumarate (Quetiapine Fumarate 50 Mg Tablet) 50 mg PO BID PRN PRN Reason: becca, agitation Thyroid (Thyroid,Pork 30 Mg Tablet) 15 mg PO DAILY@0630 [facility] Last Admin: 04/09/23 06:18 Dose: 15 mg Trazodone HCl (Trazodone Hcl 25 Mg Halftab) 75 mg PO BEDTIME MRX1 PRN PRN Reason: Insomnia Last Admin: 04/03/23 20:08 Dose: 25 mg Vitamin D (Cholecalciferol (Vitamin D3) 10 Mcg Tablet) 10 mcg PO DAILY [facility] Last Admin: 04/09/23 08:12 Dose: 10 mcg Zolpidem Tartrate (Zolpidem Tartrate 5 Mg Tablet) 10 mg PO BEDTIME [facility] Last Admin: 04/08/23 21:48 Dose: 10 mg Allergies Allergies Allergy/AdvReac Type Severity Reaction Status Date / Time amoxicillin Allergy Unknown Unknown Uncoded 03/25/23 11:07 Pt states no food allergy Allergy Unknown Unknown Uncoded 03/25/23 11:07 Assessment & Plan Assessment & Plan (1) PTSD (post-traumatic stress disorder): Status: Acute Code(s): F43.10 - Post-traumatic stress disorder, unspecified (2) Bipolar affective disorder, manic, severe, with psychotic behavior: Status: Acute Code(s): F31.2 - Bipolar disorder, current episode manic severe with psychotic features Plan 62 yo female, history of PTSD, Bipolar Disorder with Psychosis, self presents reporting she has stopped medications. She asks to go to [place], however, is willing to work with the team on at this time. She has stopped meds and is willing to re-start. She has several requests regarding meds which were addressed, however, she will be making further requests as her treatment continues. At this time, she reports being controlled by Estefania Mosqueda in all aspects of her life. This has caused great fear and anxiety. Pt has written several pages regarding this issue and is willing to share these. During our meeting she presents with acute becca, feeling overwhelmed with being controlled and vulnerable. Attempted to offer support, structure, safety for pt today. She has been able to appear to move freely in milieu, sing, dance and appears to feel comfortable and safe while settling in. Plan: Re-establish regime, medical and psychiatric Abilify 5 mg daily- pt request this trial, reports effective history. Today, pt has had ambivalence about Miralax order, asking ~7 times to start and stop. As of this writing, she asks that we not put it on her list of meds. Full milieu Collateral contact Diagnostics as needed. 03/28: Continue current regimen and plans 03/29: Continue current regimen and plans. Increased Abilify to 10 mg and Ambien to 10 mg 03/30: Continue current plans and regimen 03/31: Will file Section 7 on 04/01. 04/02/23: DC Seroquel at HS Increase Trazodone to 75 mg HS. MR x1. Ceftin to stop 04/03. 04/03/23: Increase Abilify to 10 mg bid 04/04: Continue current management and treatment plan. 04/05: check Tegretol level in AM and consider titration based on level and consider titration of Abilify. 04/06: Pt declines Abilify titration at this time. TDN 04/08. 04/09/23 commitment and tx plan filed pt paranoid preoccupied limited insight re paranoid material encourage whitney thomas case reviewed extensively with staff Reason for continued inpatient stay Substantial Risk for: harm to others and rapid decompensation Time Spent With Patient Time: Total time managing care of this patient today ____ minutes.
[2023-04-09 16:56] VITALS: BP 137/69; PULSE 92; RESP 16; TEMP 36.5; O2SAT 96
--- NOTE | 2023-04-09 18:54 | HO.PSYCHPN ---
Subjective Subjective Date of Service: 04/09/23 Reason For Visit: Bipolar Disorder Subjective Notes: Section 7 Healthcare Proxy: Yes Guardianship: No Medical Problems Affecting Mental Status: No Interim History: Calmer, clearer today. Agreeable to consider [facility] of Abilify Review of meds, Section 7, HCP activation States I am calmer today- I slept which helped and I am not talking as fast . Overall a significant improvement Reasonable when discussing treatment options and ending the cycle of several hospitalizations with a tolerable regime. Medication Compliance: Yes Side effects from medications: No Attending Groups: Yes Review of Systems Acute medical concerns: No Medical Review of Systems: unchanged Review of Systems Review of Systems Yes all other systems are reviewed and are negative Mental Status Exam Mental Status Exam Patient Appearance: Appropriate Patient Orientation: Person, Place, Time and Situation Level of Consciousness: Alert Patient Behavior: Appropriate, Talkative and Good Eye Contact Mood Description: Calm Affect Description: Calm Patient Cognition Impaired: No Ability to Follow Directions: Good Speech Pattern: Spontaneous Speech Memory Description: Intact and Episodic Impaired Hallucinations: None Delusions: Not Present Perceptual Disturbances: Depersonalization and Derealization Thought Process: Rumination Thought Content: positive for Perseveration Depressive Symptoms: Unhappiness Judgement: Fair Diagnostics Vital Signs (24Hr): Vital Signs - 24 hr 04/09/23 08:00 04/09/23 16:56 Temperature 97.5 F 97.7 F Pulse Rate 95 92 Respiratory Rate 18 16 Blood Pressure 134/67 137/69 Pulse Oximetry 95 96 Oxygen Delivery Method Room Air Room Air BMI result Body Mass Index 35.7 Labs 04/02/23 08:21 03/25/23 11:34 Labs: Laboratory Results - last 48 hr 04/08/23 04/09/23 21:43 08:27 POC Glucose 126 H 188 H Medications Medications Current Medications Acetaminophen (Acetaminophen 325 Mg Tablet) 650 mg PO Q6H PRN PRN Reason: Headache/Pain Mild Scale (1-3) Al Hydroxide/Mg Hydroxide (Magnesium Hydrox/Alum Hydrox 30 Ml Oral.Susp) 30 ml PO Q6H PRN PRN Reason: Heartburn/Nausea Amlodipine Besylate (Amlodipine Besylate 2.5 Mg Tablet) 2.5 mg PO DAILY [facility]; Protocol Last Admin: 04/09/23 08:12 Dose: 2.5 mg Aripiprazole (Aripiprazole 10 Mg Tablet) 10 mg PO BID [facility] Last Admin: 04/09/23 08:12 Dose: 10 mg Aspirin (Aspirin Enteric Coated 81 Mg Tablet.Dr) 81 mg PO DAILY [facility] Last Admin: 04/09/23 08:12 Dose: 81 mg Atorvastatin Calcium (Atorvastatin Calcium 40 Mg Tablet) 40 mg PO BEDTIME [facility] Last Admin: 04/08/23 21:49 Dose: 40 mg Benztropine Mesylate (Benztropine Mesylate 1 Mg Tablet) 1 mg PO DAILY [facility] Last Admin: 04/09/23 08:12 Dose: 1 mg Carbamazepine (Carbamazepine Er 200 Mg Tab.Er.12h) 400 mg PO BEDTIME [facility] Last Admin: 04/08/23 21:49 Dose: 400 mg Carbamazepine (Carbamazepine Er 200 Mg Tab.Er.12h) 200 mg PO DAILY [facility] Last Admin: 04/09/23 08:12 Dose: 200 mg Cyanocobalamin (Cyanocobalamin (Vitamin B-12) 100 Mcg Tablet) 100 mcg PO DAILY [facility] Last Admin: 04/09/23 08:12 Dose: 100 mcg Furosemide (Furosemide 20 Mg Tablet) 20 mg PO DAILY [facility]; Protocol Last Admin: 04/09/23 08:12 Dose: 20 mg Hydroxyzine HCl (Hydroxyzine Hcl 25 Mg Tablet) 25 mg PO Q6H PRN PRN Reason: Anxiety Last Admin: 03/30/23 16:27 Dose: 25 mg Lorazepam (Lorazepam 1 Mg Tablet) 1 mg PO BEDTIME [facility] Magnesium Hydroxide (Milk Of Magnesia 30 Ml Oral.Susp) 30 ml PO DAILY PRN PRN Reason: Constipation Last Admin: 04/08/23 21:55 Dose: 30 ml Magnesium Oxide (Magnesium Oxide 400 Mg Tablet) 400 mg PO DAILY [facility] Last Admin: 04/09/23 08:12 Dose: 400 mg Metoprolol Succinate (Metoprolol Succinate Er 12.5 Mg Halftab.Er.24h) 12.5 mg PO DAILY [facility]; Protocol Last Admin: 04/09/23 08:12 Dose: 12.5 mg Pt Own (Trulicity 3 (Mg)) 3 mg SUBCUT Q7D [facility] Last Admin: 04/04/23 13:58 Dose: 3 mg Ondansetron HCl (Ondansetron Odt 4 Mg Tab.Rapdis) 4 mg TRANSLINGU Q6H PRN PRN Reason: Nausea Last Admin: 04/09/23 06:57 Dose: 4 mg Polyethylene Glycol (Polyethylene Glycol 3350 17 Gm Powd.Pack) 17 gm PO DAILY PRN PRN Reason: Constipation Last Admin: 03/30/23 13:46 Dose: 17 gm Quetiapine Fumarate (Quetiapine Fumarate 50 Mg Tablet) 50 mg PO BID PRN PRN Reason: becca, agitation Thyroid (Thyroid,Pork 30 Mg Tablet) 15 mg PO DAILY@0630 [facility] Last Admin: 04/09/23 06:18 Dose: 15 mg Vitamin D (Cholecalciferol (Vitamin D3) 10 Mcg Tablet) 10 mcg PO DAILY [facility] Last Admin: 04/09/23 08:12 Dose: 10 mcg Zolpidem Tartrate (Zolpidem Tartrate 5 Mg Tablet) 10 mg PO BEDTIME [facility] Last Admin: 04/08/23 21:48 Dose: 10 mg Allergies Allergies Allergy/AdvReac Type Severity Reaction Status Date / Time amoxicillin Allergy Unknown Unknown Uncoded 03/25/23 11:07 Pt states no food allergy Allergy Unknown Unknown Uncoded 03/25/23 11:07 Assessment & Plan Assessment & Plan (1) PTSD (post-traumatic stress disorder): Status: Acute Code(s): F43.10 - Post-traumatic stress disorder, unspecified (2) Bipolar affective disorder, manic, severe, with psychotic behavior: Status: Acute Code(s): F31.2 - Bipolar disorder, current episode manic severe with psychotic features Plan 62 yo female, history of PTSD, Bipolar Disorder with Psychosis, self presents reporting she has stopped medications. She asks to go to [place], however, is willing to work with the team on at this time. She has stopped meds and is willing to re-start. She has several requests regarding meds which were addressed, however, she will be making further requests as her treatment continues. At this time, she reports being controlled by Estefania Mosqueda in all aspects of her life. This has caused great fear and anxiety. Pt has written several pages regarding this issue and is willing to share these. During our meeting she presents with acute becca, feeling overwhelmed with being controlled and vulnerable. Attempted to offer support, structure, safety for pt today. She has been able to appear to move freely in milieu, sing, dance and appears to feel comfortable and safe while settling in. Plan: Re-establish regime, medical and psychiatric Abilify 5 mg daily- pt request this trial, reports effective history. Today, pt has had ambivalence about Miralax order, asking ~7 times to start and stop. As of this writing, she asks that we not put it on her list of meds. Full milieu Collateral contact Diagnostics as needed. 03/28: Continue current regimen and plans 03/29: Continue current regimen and plans. Increased Abilify to 10 mg and Ambien to 10 mg 03/30: Continue current plans and regimen 03/31: Will file Section 7 on 04/01. 04/02/23: DC Seroquel at HS Increase Trazodone to 75 mg HS. MR x1. Ceftin to stop 04/03. 04/03/23: Increase Abilify to 10 mg bid 04/04: Continue current management and treatment plan. 04/05: check Tegretol level in AM and consider titration based on level and consider titration of Abilify. 04/06: Pt declines Abilify titration at this time. TDN 04/08. 04/08: Section 7, HCP activation : Improved, will consider Maintena injection Patient educated on: medication risk/benefits and therapeutic strategies Informed Consent: understands and further education needed Reason for continued inpatient stay Substantial Risk for: rapid decompensation Time Spent With Patient Time: Total time managing care of this patient today ____ minutes.
[2023-04-09] MEDS: LORazepam 1 MG TABLET PO (20:29)
[2023-04-09] MEDS: Zolpidem Tartrate 5 MG TABLET 10 MG PO (20:29)
[2023-04-09] MEDS: Atorvastatin Calcium 40 MG TABLET PO (20:29)
[2023-04-09] MEDS: carBAMazepine ER 200 MG TAB.ER.12H 400 MG PO (20:29)
[2023-04-09] MEDS: Melatonin 3 MG TABLET PO (20:52)
[2023-04-10] MEDS: Thyroid,Pork 30 MG TABLET 15 MG PO (05:34)
[2023-04-10 07:59] VITALS: BP 127/59; PULSE 80; RESP 18; TEMP 36.4; O2SAT 95
[2023-04-10] MEDS: Aspirin Enteric Coated 81 MG TABLET.DR PO (08:14)
[2023-04-10] MEDS: amLODIPine Besylate 2.5 MG TABLET PO (08:15)
[2023-04-10] MEDS: carBAMazepine ER 200 MG TAB.ER.12H PO (08:15)
[2023-04-10] MEDS: Furosemide 20 MG TABLET PO (08:15)
[2023-04-10] MEDS: Cholecalciferol (Vitamin D3) 10 MCG TABLET PO (08:15)
[2023-04-10] MEDS: ARIPiprazole 10 MG TABLET PO ×2 (08:15→20:13)
[2023-04-10] MEDS: Benztropine Mesylate 1 MG TABLET PO (08:15)
[2023-04-10] MEDS: Magnesium Oxide 400 MG TABLET PO (08:15)
[2023-04-10] MEDS: Metoprolol Succinate ER 12.5 MG HALFTAB.ER.24H PO (08:15)
[2023-04-10] MEDS: Cyanocobalamin (Vitamin B-12) 100 MCG TABLET PO (08:15)
[2023-04-10 08:31] LABS: Glucose, Whole Blood 145 mg/dL (60-115)
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
[2023-04-10 19:57] VITALS: BP 138/78; PULSE 100; RESP 18; TEMP 37; O2SAT 95
[2023-04-10] MEDS: Atorvastatin Calcium 40 MG TABLET PO (20:13)
[2023-04-10] MEDS: Zolpidem Tartrate 5 MG TABLET 10 MG PO (20:13)
[2023-04-10] MEDS: carBAMazepine ER 200 MG TAB.ER.12H 400 MG PO (20:13)
[2023-04-10] MEDS: LORazepam 1 MG TABLET PO (20:13)
[2023-04-10] MEDS: Milk of Magnesia 30 ML ORAL.SUSP PO (20:44)
[2023-04-10] MEDS: Melatonin 3 MG TABLET 6 MG PO (22:09)
[2023-04-11] MEDS: Thyroid,Pork 30 MG TABLET 15 MG PO (04:54)
[2023-04-11 08:05] VITALS: BP 135/73; PULSE 95; RESP 15; TEMP 36.4; O2SAT 96
[2023-04-11] MEDS: ARIPiprazole 10 MG TABLET PO ×2 (08:48→21:02)
[2023-04-11] MEDS: Magnesium Oxide 400 MG TABLET PO (08:49)
[2023-04-11] MEDS: Cholecalciferol (Vitamin D3) 10 MCG TABLET PO (08:49)
[2023-04-11] MEDS: Aspirin Enteric Coated 81 MG TABLET.DR PO (08:49)
[2023-04-11] MEDS: Furosemide 20 MG TABLET PO (08:49)
[2023-04-11] MEDS: Benztropine Mesylate 1 MG TABLET PO (08:49)
[2023-04-11] MEDS: carBAMazepine ER 200 MG TAB.ER.12H PO (08:49)
[2023-04-11] MEDS: Metoprolol Succinate ER 12.5 MG HALFTAB.ER.24H PO (08:49)
[2023-04-11] MEDS: Cyanocobalamin (Vitamin B-12) 100 MCG TABLET PO (08:50)
[2023-04-11] MEDS: amLODIPine Besylate 2.5 MG TABLET PO (08:50)
[2023-04-11 09:31] LABS: Glucose, Whole Blood 191 mg/dL (60-115)
--- NOTE | 2023-04-11 11:13 | P.PNPSI_ITS ---
Subjective Subjective Date of Service: 04/11/23 Reason For Visit: Bipolar Disorder Subjective Notes: Section 7 Healthcare Proxy: Yes Guardianship: No Medical Problems Affecting Mental Status: Yes (diabetes elevated glucose- not able to get her trulicitiy today) Interim History: 62 yo WF with labile mood- grandiose - tangential thought processes at first refusing alternatives to care- re blood glucose- perseverative on having brought in two boxes of trulicity last week (pt failed to not what nursing tells me is that it was not refrigerated so was not usable) Medication Compliance: No Side effects from medications: No Attending Groups: No Review of Systems Acute medical concerns: Yes high glucose from diabetes refusing alt care till we can get her trulicity thursday Medical Review of Systems: unchanged Mental Status Exam Mental Status Exam Patient Appearance: Well Grooomed and Inappropriate Patient Orientation: Person, Place, Time and Situation Level of Consciousness: Awake Mood Description: Euphoric and Labile Affect Description: Labile and Expansive Patient Cognition Impaired: Yes Ability to Follow Directions: Fair (only if you agree with her) Speech Pattern: Rambling Hallucinations: None Delusions: Grandiose Thought Process: Racing and Illogical Thought Content: positive for Flight of Ideas Depressive Symptoms: Increased Irritability Abnormal Motor Activity Signs and Symptoms: Hyperactivity Judgement: Poor Diagnostics Vital Signs (24Hr): Vital Signs - 24 hr 04/10/23 19:57 04/11/23 08:05 Temperature 98.6 F 97.5 F Pulse Rate 100 95 Respiratory Rate 18 15 Blood Pressure 138/78 135/73 Pulse Oximetry 95 96 Oxygen Delivery Method Room Air Room Air BMI result Body Mass Index 35.7 Labs 04/02/23 08:21 03/25/23 11:34 Labs: Laboratory Results - last 48 hr 04/10/23 04/11/23 08:26 09:27 POC Glucose 145 H 191 H Medications Medications Current Medications Acetaminophen (Acetaminophen 325 Mg Tablet) 650 mg PO Q6H PRN PRN Reason: Headache/Pain Mild Scale (1-3) Al Hydroxide/Mg Hydroxide (Magnesium Hydrox/Alum Hydrox 30 Ml Oral.Susp) 30 ml PO Q6H PRN PRN Reason: Heartburn/Nausea Amlodipine Besylate (Amlodipine Besylate 2.5 Mg Tablet) 2.5 mg PO DAILY [facility]; Protocol Last Admin: 04/11/23 08:50 Dose: 2.5 mg Aripiprazole (Aripiprazole 10 Mg Tablet) 10 mg PO BID [facility] Last Admin: 04/11/23 08:48 Dose: 10 mg Aspirin (Aspirin Enteric Coated 81 Mg Tablet.Dr) 81 mg PO DAILY [facility] Last Admin: 04/11/23 08:49 Dose: 81 mg Atorvastatin Calcium (Atorvastatin Calcium 40 Mg Tablet) 40 mg PO BEDTIME [facility] Last Admin: 04/10/23 20:13 Dose: 40 mg Benztropine Mesylate (Benztropine Mesylate 1 Mg Tablet) 1 mg PO DAILY [facility] Last Admin: 04/11/23 08:49 Dose: 1 mg Carbamazepine (Carbamazepine Er 200 Mg Tab.Er.12h) 400 mg PO BEDTIME [facility] Last Admin: 04/10/23 20:13 Dose: 400 mg Carbamazepine (Carbamazepine Er 200 Mg Tab.Er.12h) 200 mg PO DAILY [facility] Last Admin: 04/11/23 08:49 Dose: 200 mg Cyanocobalamin (Cyanocobalamin (Vitamin B-12) 100 Mcg Tablet) 100 mcg PO DAILY [facility] Last Admin: 04/11/23 08:50 Dose: 100 mcg Furosemide (Furosemide 20 Mg Tablet) 20 mg PO DAILY [facility]; Protocol Last Admin: 04/11/23 08:49 Dose: 20 mg Hydroxyzine HCl (Hydroxyzine Hcl 25 Mg Tablet) 25 mg PO Q6H PRN PRN Reason: Anxiety Last Admin: 03/30/23 16:27 Dose: 25 mg Lorazepam (Lorazepam 1 Mg Tablet) 1 mg PO BEDTIME [facility] Last Admin: 04/10/23 20:13 Dose: 1 mg Lorazepam (Lorazepam 1 Mg Tablet) 1 mg PO BEDTIME PRN PRN Reason: Insomnia Magnesium Hydroxide (Milk Of Magnesia 30 Ml Oral.Susp) 30 ml PO DAILY PRN PRN Reason: Constipation Last Admin: 04/10/23 20:44 Dose: 30 ml Magnesium Oxide (Magnesium Oxide 400 Mg Tablet) 400 mg PO DAILY [facility] Last Admin: 04/11/23 08:49 Dose: 400 mg Metoprolol Succinate (Metoprolol Succinate Er 12.5 Mg Halftab.Er.24h) 12.5 mg PO DAILY [facility]; Protocol Last Admin: 04/11/23 08:49 Dose: 12.5 mg Pt Own (Trulicity 3 (Mg)) 3 mg SUBCUT Q7D [facility] Last Admin: 04/04/23 13:58 Dose: 3 mg Ondansetron HCl (Ondansetron Odt 4 Mg Tab.Rapdis) 4 mg TRANSLINGU Q6H PRN PRN Reason: Nausea Last Admin: 04/09/23 06:57 Dose: 4 mg Polyethylene Glycol (Polyethylene Glycol 3350 17 Gm Powd.Pack) 17 gm PO DAILY PRN PRN Reason: Constipation Last Admin: 03/30/23 13:46 Dose: 17 gm Quetiapine Fumarate (Quetiapine Fumarate 50 Mg Tablet) 50 mg PO BID PRN PRN Reason: becca, agitation Thyroid (Thyroid,Pork 30 Mg Tablet) 15 mg PO DAILY@0630 [facility] Last Admin: 04/11/23 04:54 Dose: 15 mg Vitamin D (Cholecalciferol (Vitamin D3) 10 Mcg Tablet) 10 mcg PO DAILY [facility] Last Admin: 04/11/23 08:49 Dose: 10 mcg Zolpidem Tartrate (Zolpidem Tartrate 5 Mg Tablet) 10 mg PO BEDTIME [facility] Last Admin: 04/10/23 20:13 Dose: 10 mg Allergies Allergies Allergy/AdvReac Type Severity Reaction Status Date / Time amoxicillin Allergy Unknown Unknown Uncoded 03/25/23 11:07 Pt states no food allergy Allergy Unknown Unknown Uncoded 03/25/23 11:07 Assessment & Plan Assessment & Plan (1) PTSD (post-traumatic stress disorder): Status: Acute Code(s): F43.10 - Post-traumatic stress disorder, unspecified (2) Bipolar affective disorder, manic, severe, with psychotic behavior: Status: Acute Code(s): F31.2 - Bipolar disorder, current episode manic severe with psychotic features Plan 62 yo female, history of PTSD, Bipolar Disorder with Psychosis, self presents reporting she has stopped medications. She asks to go to [place], however, is willing to work with the team on at this time. She has stopped meds and is willing to re-start. She has several requests regarding meds which were addressed, however, she will be making further requests as her treatment continues. At this time, she reports being controlled by Estefania Mosqueda in all aspects of her life. This has caused great fear and anxiety. Pt has written several pages regarding this issue and is willing to share these. During our meeting she presents with acute becca, feeling overwhelmed with being controlled and vulnerable. Attempted to offer support, structure, safety for pt today. She has been able to appear to move freely in milieu, sing, dance and appears to feel comfortable and safe while settling in. Plan: Re-establish regime, medical and psychiatric Abilify 5 mg daily- pt request this trial, reports effective history. Today, pt has had ambivalence about Miralax order, asking ~7 times to start and stop. As of this writing, she asks that we not put it on her list of meds. Full milieu Collateral contact Diagnostics as needed. 03/28: Continue current regimen and plans 03/29: Continue current regimen and plans. Increased Abilify to 10 mg and Ambien to 10 mg 03/30: Continue current plans and regimen 03/31: Will file Section 7 on 04/01. 04/02/23: DC Seroquel at HS Increase Trazodone to 75 mg HS. x1. Ceftin to stop 04/03. 04/03/23: Increase Abilify to 10 mg bid 04/04: Continue current management and treatment plan. 04/05: check Tegretol level in AM and consider titration based on level and consider titration of Abilify. 04/06: Pt declines Abilify titration at this time. TDN 04/08. 04/08: Section 7, HCP activation 04/09: Encourage treatment with [facility] 04/11/23 continues labile some struggle around diabetes care- Patient educated on: medication risk/benefits Informed Consent: further education needed Reason for continued inpatient stay Substantial Risk for: inability to function, rapid decompensation and med/psych decompensation Time Spent With Patient Time: Total time managing care of this patient today ____ minutes.
[2023-04-11 12:25] LABS: Glucose, Whole Blood 86 mg/dL (60-115)
[2023-04-11 17:35] LABS: Glucose, Whole Blood 168 mg/dL (60-115)
[2023-04-11 18:00] VITALS: BP 129/69; PULSE 87; RESP 18; TEMP 37.1; O2SAT 98
[2023-04-11] MEDS: carBAMazepine ER 200 MG TAB.ER.12H 400 MG PO (21:02)
[2023-04-11] MEDS: Atorvastatin Calcium 40 MG TABLET PO (21:02)
[2023-04-11] MEDS: Zolpidem Tartrate 5 MG TABLET 10 MG PO (21:02)
[2023-04-11] MEDS: Milk of Magnesia 30 ML ORAL.SUSP PO (21:05)
[2023-04-11 21:14] LABS: Glucose, Whole Blood 125 mg/dL (60-115)
[2023-04-12] MEDS: Thyroid,Pork 30 MG TABLET 15 MG PO (06:27)
[2023-04-12 06:46] LABS: Glucose, Whole Blood 121 mg/dL (60-115)
[2023-04-12 08:29] VITALS: BP 109/62; PULSE 104; RESP 16; TEMP 36.3; O2SAT 99
[2023-04-12] MEDS: Cyanocobalamin (Vitamin B-12) 100 MCG TABLET PO (08:37)
[2023-04-12] MEDS: Magnesium Oxide 400 MG TABLET PO (08:37)
[2023-04-12] MEDS: Metoprolol Succinate ER 12.5 MG HALFTAB.ER.24H PO (08:37)
[2023-04-12] MEDS: Aspirin Enteric Coated 81 MG TABLET.DR PO (08:37)
[2023-04-12] MEDS: Benztropine Mesylate 1 MG TABLET PO (08:37)
[2023-04-12] MEDS: Cholecalciferol (Vitamin D3) 10 MCG TABLET PO (08:37)
[2023-04-12] MEDS: amLODIPine Besylate 2.5 MG TABLET PO (08:37)
[2023-04-12] MEDS: Furosemide 20 MG TABLET PO (08:38)
[2023-04-12] MEDS: ARIPiprazole 10 MG TABLET PO ×2 (08:38→20:45)
[2023-04-12] MEDS: carBAMazepine ER 200 MG TAB.ER.12H PO (08:46)
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
--- NOTE | 2023-04-12 11:12 | P.PNPSI_ITS ---
Subjective Subjective Date of Service: 04/12/23 Reason For Visit: Bipolar Disorder Subjective Notes: Section 7 Healthcare Proxy: Yes Guardianship: No Medical Problems Affecting Mental Status: No Interim History: 62 yo with bipolar do who continues to have slight lability and tangential pressured speech- but more cooperative today around her glucose and insulin will pay hospital for copay for trulicity so she can get it tomorrow Medication Compliance: Yes Side effects from medications: No Attending Groups: No Review of Systems Acute medical concerns: Yes diabetes Medical Review of Systems: unchanged Mental Status Exam Mental Status Exam Patient Appearance: Well Grooomed and Appropriate Patient Orientation: Person, Place, Time and Situation Level of Consciousness: Awake Patient Behavior: Appropriate and Cooperative Mood Description: Happy Affect Description: Expansive Patient Cognition Impaired: No Ability to Follow Directions: Fair Speech Pattern: Clear Hallucinations: None Thought Process: Racing Thought Content: positive for Disorganized Depressive Symptoms: Difficulty Concentrating Abnormal Motor Activity Signs and Symptoms: Hyperactivity Judgement: Fair Diagnostics Vital Signs (24Hr): Vital Signs - 24 hr 04/11/23 18:00 04/12/23 08:29 Temperature 98.7 F 97.3 F Pulse Rate 87 104 H Respiratory Rate 18 16 Blood Pressure 129/69 109/62 Pulse Oximetry 98 99 Oxygen Delivery Method Room Air Room Air BMI result Body Mass Index 35.7 Labs 04/02/23 08:21 03/25/23 11:34 Labs: Laboratory Results - last 48 hr 04/11/23 04/11/23 04/11/23 09:27 12:20 17:30 POC Glucose 191 H 86 168 H 04/11/23 04/12/23 21:10 06:42 POC Glucose 125 H 121 H Medications Medications Current Medications Acetaminophen (Acetaminophen 325 Mg Tablet) 650 mg PO Q6H PRN PRN Reason: Headache/Pain Mild Scale (1-3) Al Hydroxide/Mg Hydroxide (Magnesium Hydrox/Alum Hydrox 30 Ml Oral.Susp) 30 ml PO Q6H PRN PRN Reason: Heartburn/Nausea Amlodipine Besylate (Amlodipine Besylate 2.5 Mg Tablet) 2.5 mg PO DAILY [facility]; Protocol Last Admin: 04/12/23 08:37 Dose: 2.5 mg Aripiprazole (Aripiprazole 10 Mg Tablet) 10 mg PO BID [facility] Last Admin: 04/12/23 08:38 Dose: 10 mg Aspirin (Aspirin Enteric Coated 81 Mg Tablet.Dr) 81 mg PO DAILY [facility] Last Admin: 04/12/23 08:37 Dose: 81 mg Atorvastatin Calcium (Atorvastatin Calcium 40 Mg Tablet) 40 mg PO BEDTIME [facility] Last Admin: 04/11/23 21:02 Dose: 40 mg Benztropine Mesylate (Benztropine Mesylate 1 Mg Tablet) 1 mg PO DAILY [facility] Last Admin: 04/12/23 08:37 Dose: 1 mg Carbamazepine (Carbamazepine Er 200 Mg Tab.Er.12h) 400 mg PO BEDTIME [facility] Last Admin: 04/11/23 21:02 Dose: 400 mg Carbamazepine (Carbamazepine Er 200 Mg Tab.Er.12h) 200 mg PO DAILY [facility] Last Admin: 04/12/23 08:46 Dose: 200 mg Cyanocobalamin (Cyanocobalamin (Vitamin B-12) 100 Mcg Tablet) 100 mcg PO DAILY [facility] Last Admin: 04/12/23 08:37 Dose: 100 mcg Dextrose (Dextrose 50 % 25 Gm/50 Ml Syringe) 25 gm IVPUSH Q15M PRN; Protocol PRN Reason: per Hypoglycemia Standing Ord. Furosemide (Furosemide 20 Mg Tablet) 20 mg PO DAILY [facility]; Protocol Last Admin: 04/12/23 08:38 Dose: 20 mg Glucose (Glucose Gel 15 Gm Gel..Gram.) 15 gm PO Q15M PRN; Protocol PRN Reason: per Hypoglycemia Standing Ord. Hydroxyzine HCl (Hydroxyzine Hcl 25 Mg Tablet) 25 mg PO Q6H PRN PRN Reason: Anxiety Last Admin: 03/30/23 16:27 Dose: 25 mg Lorazepam (Lorazepam 1 Mg Tablet) 1 mg PO BEDTIME [facility] Last Admin: 04/11/23 22:39 Dose: Not Given Lorazepam (Lorazepam 1 Mg Tablet) 1 mg PO BEDTIME PRN PRN Reason: Insomnia Magnesium Hydroxide (Milk Of Magnesia 30 Ml Oral.Susp) 30 ml PO DAILY PRN PRN Reason: Constipation Last Admin: 04/11/23 21:05 Dose: 30 ml Magnesium Oxide (Magnesium Oxide 400 Mg Tablet) 400 mg PO DAILY [facility] Last Admin: 04/12/23 08:37 Dose: 400 mg Metoprolol Succinate (Metoprolol Succinate Er 12.5 Mg Halftab.Er.24h) 12.5 mg PO DAILY [facility]; Protocol Last Admin: 04/12/23 08:37 Dose: 12.5 mg Pt Own (Trulicity 3 (Mg)) 3 mg SUBCUT Q7D [facility] Last Admin: 04/11/23 12:37 Dose: Not Given Ondansetron HCl (Ondansetron Odt 4 Mg Tab.Rapdis) 4 mg TRANSLINGU Q6H PRN PRN Reason: Nausea Last Admin: 04/09/23 06:57 Dose: 4 mg Polyethylene Glycol (Polyethylene Glycol 3350 17 Gm Powd.Pack) 17 gm PO DAILY PRN PRN Reason: Constipation Last Admin: 03/30/23 13:46 Dose: 17 gm Quetiapine Fumarate (Quetiapine Fumarate 50 Mg Tablet) 50 mg PO BID PRN PRN Reason: becca, agitation Thyroid (Thyroid,Pork 30 Mg Tablet) 15 mg PO DAILY@0630 [facility] Last Admin: 04/12/23 06:27 Dose: 15 mg Vitamin D (Cholecalciferol (Vitamin D3) 10 Mcg Tablet) 10 mcg PO DAILY [facility] Last Admin: 04/12/23 08:37 Dose: 10 mcg Zolpidem Tartrate (Zolpidem Tartrate 5 Mg Tablet) 10 mg PO BEDTIME [facility] Last Admin: 04/11/23 21:02 Dose: 10 mg Allergies Allergies Allergy/AdvReac Type Severity Reaction Status Date / Time amoxicillin Allergy Unknown Unknown Uncoded 03/25/23 11:07 Pt states no food allergy Allergy Unknown Unknown Uncoded 03/25/23 11:07 Assessment & Plan Assessment & Plan (1) PTSD (post-traumatic stress disorder): Status: Acute Code(s): F43.10 - Post-traumatic stress disorder, unspecified (2) Bipolar affective disorder, manic, severe, with psychotic behavior: Status: Acute Code(s): F31.2 - Bipolar disorder, current episode manic severe with psychotic features Assessment and Plan: 04/12/23 ongoing becca but seems less labile and pressured today- more cooperative with medical care Plan 62 yo female, history of PTSD, Bipolar Disorder with Psychosis, self presents reporting she has stopped medications. She asks to go to [place], however, is willing to work with the team on M5 at this time. She has stopped meds and is willing to re-start. She has several requests regarding meds which were addressed, however, she will be making further requests as her treatment continues. At this time, she reports being controlled by Estefania Mosqueda in all aspects of her life. This has caused great fear and anxiety. Pt has written several pages regarding this issue and is willing to share these. During our meeting she presents with acute becca, feeling overwhelmed with being controlled and vulnerable. Attempted to offer support, structure, safety for pt today. She has been able to appear to move freely in milieu, sing, dance and appears to feel comfortable and safe while settling in. Plan: Re-establish regime, medical and psychiatric Abilify 5 mg daily- pt request this trial, reports effective history. Today, pt has had ambivalence about Miralax order, asking ~7 times to start and stop. As of this writing, she asks that we not put it on her list of meds. Full milieu Collateral contact Diagnostics as needed. 03/28: Continue current regimen and plans 03/29: Continue current regimen and plans. Increased Abilify to 10 mg and Ambien to 10 mg 03/30: Continue current plans and regimen 03/31: Will file Section 7 on 04/01. 04/02/23: DC Seroquel at HS Increase Trazodone to 75 mg HS. MR x1. Ceftin to stop 04/03. 04/03/23: Increase Abilify to 10 mg bid 04/04: Continue current management and treatment plan. 04/05: check Tegretol level in AM and consider titration based on level and consider titration of Abilify. 04/06: Pt declines Abilify titration at this time. TDN 04/08. 04/08: Section 7, HCP activation 04/09: Encourage treatment with [facility] 04/11/23 continues labile some struggle around diabetes care- Patient educated on: medication risk/benefits Guardian/Caregiver educated on: medical condition Informed Consent: understands Reason for continued inpatient stay Substantial Risk for: rapid decompensation and med/psych decompensation Time Spent With Patient Time: Total time managing care of this patient today ____ minutes.
[2023-04-12 13:05] LABS: Glucose, Whole Blood 166 mg/dL (60-115)
[2023-04-12] MEDS: Insulin Lispro 100 UNIT/ML 3 ML VIAL SUBCUT (13:52)
[2023-04-12 17:19] LABS: Glucose, Whole Blood 110 mg/dL (60-115)
--- NOTE | 2023-04-12 18:01 | PC.NURSE ---
Note with information from 04/11/23: This patient had brought in Trulicity from her home. It ran out last week. In response to this, provider ordered Trulicity through [facility] outpatient pharmacy, however, they are not open on the weekend. The plan is to get this medication from [facility] pharmacy on 04/13/23, and for pt to be placed on sliding scale through weekend with humalog coverage. Pt was changed to POC QID through the weekend as well.
[2023-04-12 20:25] VITALS: BP 136/64; PULSE 98; TEMP 36.3
[2023-04-12] MEDS: Zolpidem Tartrate 5 MG TABLET 10 MG PO (20:46)
[2023-04-12] MEDS: carBAMazepine ER 200 MG TAB.ER.12H 400 MG PO (20:46)
[2023-04-12] MEDS: Atorvastatin Calcium 40 MG TABLET PO (20:46)
[2023-04-12] MEDS: LORazepam 1 MG TABLET PO ×2 (20:47→23:40)
[2023-04-12 21:43] LABS: Glucose, Whole Blood 118 mg/dL (60-115)
[2023-04-13] MEDS: Thyroid,Pork 30 MG TABLET 15 MG PO (06:07)
[2023-04-13] MEDS: Ondansetron ODT 4 MG TAB.RAPDIS TRANSLINGU (07:00)
[2023-04-13 08:13] VITALS: BP 162/57; PULSE 91; RESP 16; TEMP 36.6; O2SAT 95
[2023-04-13 08:38] LABS: Glucose, Whole Blood 146 mg/dL (60-115)
[2023-04-13] MEDS: Furosemide 20 MG TABLET PO (08:39)
[2023-04-13] MEDS: Magnesium Oxide 400 MG TABLET PO (08:40)
[2023-04-13] MEDS: carBAMazepine ER 200 MG TAB.ER.12H PO (08:40)
[2023-04-13] MEDS: Metoprolol Succinate ER 12.5 MG HALFTAB.ER.24H PO (08:40)
[2023-04-13] MEDS: Aspirin Enteric Coated 81 MG TABLET.DR PO (08:40)
[2023-04-13] MEDS: Cyanocobalamin (Vitamin B-12) 100 MCG TABLET PO (08:40)
[2023-04-13] MEDS: Cholecalciferol (Vitamin D3) 10 MCG TABLET PO (08:41)
[2023-04-13] MEDS: Benztropine Mesylate 1 MG TABLET PO (08:41)
[2023-04-13] MEDS: ARIPiprazole 10 MG TABLET PO (08:41)
[2023-04-13] MEDS: amLODIPine Besylate 2.5 MG TABLET PO (08:41)
[2023-04-13] MEDS: Milk of Magnesia 30 ML ORAL.SUSP PO (09:56)
[2023-04-13 12:20] LABS: Glucose, Whole Blood 131 mg/dL (60-115)
[2023-04-13 17:09] LABS: Glucose, Whole Blood 186 mg/dL (60-115)
--- NOTE | 2023-04-13 17:10 | HO.PSYCHPN ---
Subjective Subjective Date of Service: 04/13/23 Reason For Visit: Bipolar Disorder Subjective Notes: Section 7 Interim History: Pt with labile mood paranoid preoccupations has been taking abilkify tegretol Mental Status Exam Mental Status Exam Patient Appearance: Well Grooomed and Appropriate Patient Orientation: Person, Place, Time and Situation Level of Consciousness: Awake Patient Behavior: Appropriate and Cooperative Mood Description: Suspicious, Labile and Expansive Affect Description: Labile and Expansive Patient Cognition Impaired: No Ability to Follow Directions: Fair Speech Pattern: Perseverating and Pressured Hallucinations: None Delusions: Paranoid Ideation Thought Process: Racing Thought Content: positive for Disorganized Depressive Symptoms: Difficulty Concentrating Abnormal Motor Activity Signs and Symptoms: Hyperactivity Judgement: Fair Diagnostics Vital Signs (24Hr): Vital Signs - 24 hr 04/12/23 20:25 04/13/23 08:13 Temperature 97.3 F 97.8 F Pulse Rate 98 91 Respiratory Rate 16 Blood Pressure 136/64 162/57 H Pulse Oximetry 95 Oxygen Delivery Method Room Air BMI result Body Mass Index 35.7 Labs 04/02/23 08:21 03/25/23 11:34 Labs: Laboratory Results - last 48 hr 04/11/23 04/11/23 04/12/23 17:30 21:10 06:42 POC Glucose 168 H 125 H 121 H 04/12/23 04/12/23 04/12/23 13:02 17:13 20:42 POC Glucose 166 H 110 118 H 04/13/23 04/13/23 08:33 12:16 POC Glucose 146 H 131 H Medications Medications Current Medications Acetaminophen (Acetaminophen 325 Mg Tablet) 650 mg PO Q6H PRN PRN Reason: Headache/Pain Mild Scale (1-3) Al Hydroxide/Mg Hydroxide (Magnesium Hydrox/Alum Hydrox 30 Ml Oral.Susp) 30 ml PO Q6H PRN PRN Reason: Heartburn/Nausea Amlodipine Besylate (Amlodipine Besylate 2.5 Mg Tablet) 2.5 mg PO DAILY [facility]; Protocol Last Admin: 04/13/23 08:41 Dose: 2.5 mg Aripiprazole (Aripiprazole 15 Mg Tablet) 15 mg PO BID@0800,1800 [facility] Aspirin (Aspirin Enteric Coated 81 Mg Tablet.) 81 mg PO DAILY [facility] Last Admin: 04/13/23 08:40 Dose: 81 mg Atorvastatin Calcium (Atorvastatin Calcium 40 Mg Tablet) 40 mg PO BEDTIME [facility] Last Admin: 04/12/23 20:46 Dose: 40 mg Benztropine Mesylate (Benztropine Mesylate 1 Mg Tablet) 1 mg PO DAILY [facility] Last Admin: 04/13/23 08:41 Dose: 1 mg Carbamazepine (Carbamazepine Er 200 Mg Tab.Er.12h) 400 mg PO BEDTIME [facility] Last Admin: 04/12/23 20:46 Dose: 400 mg Carbamazepine (Carbamazepine Er 200 Mg Tab.Er.12h) 200 mg PO DAILY [facility] Last Admin: 04/13/23 08:40 Dose: 200 mg Cyanocobalamin (Cyanocobalamin (Vitamin B-12) 100 Mcg Tablet) 100 mcg PO DAILY [facility] Last Admin: 04/13/23 08:40 Dose: 100 mcg Dextrose (Dextrose 50 % 25 Gm/50 Ml Syringe) 25 gm IVPUSH Q15M PRN; Protocol PRN Reason: per Hypoglycemia Standing Ord. Furosemide (Furosemide 20 Mg Tablet) 20 mg PO DAILY [facility]; Protocol Last Admin: 04/13/23 08:39 Dose: 20 mg Glucose (Glucose Gel 15 Gm Gel..Gram.) 15 gm PO Q15M PRN; Protocol PRN Reason: per Hypoglycemia Standing Ord. Hydroxyzine HCl (Hydroxyzine Hcl 25 Mg Tablet) 25 mg PO Q6H PRN PRN Reason: Anxiety Last Admin: 03/30/23 16:27 Dose: 25 mg Insulin Human Lispro (Insulin Lispro 100 Unit/Ml 3 Ml Vial) 0 unit SUBCUT QIDACHS [facility]; Protocol Last Admin: 04/13/23 12:20 Dose: Not Given Lorazepam (Lorazepam 1 Mg Tablet) 1 mg PO BEDTIME [facility] Last Admin: 04/12/23 20:47 Dose: 1 mg Lorazepam (Lorazepam 1 Mg Tablet) 1 mg PO BEDTIME PRN PRN Reason: Insomnia Last Admin: 04/12/23 23:40 Dose: 1 mg Magnesium Hydroxide (Milk Of Magnesia 30 Ml Oral.Susp) 30 ml PO DAILY PRN PRN Reason: Constipation Last Admin: 04/13/23 09:56 Dose: 30 ml Magnesium Oxide (Magnesium Oxide 400 Mg Tablet) 400 mg PO DAILY [facility] Last Admin: 04/13/23 08:40 Dose: 400 mg Metoprolol Succinate (Metoprolol Succinate Er 12.5 Mg Halftab.Er.24h) 12.5 mg PO DAILY [facility]; Protocol Last Admin: 04/13/23 08:40 Dose: 12.5 mg Pt Own (Trulicity 3 (Mg)) 3 mg SUBCUT Q7D [facility] Last Admin: 04/11/23 12:37 Dose: Not Given Ondansetron HCl (Ondansetron Odt 4 Mg Tab.Rapdis) 4 mg TRANSLINGU Q6H PRN PRN Reason: Nausea Last Admin: 04/13/23 07:00 Dose: 4 mg Polyethylene Glycol (Polyethylene Glycol 3350 17 Gm Powd.Pack) 17 gm PO DAILY PRN PRN Reason: Constipation Last Admin: 03/30/23 13:46 Dose: 17 gm Quetiapine Fumarate (Quetiapine Fumarate 50 Mg Tablet) 50 mg PO BID PRN PRN Reason: becca, agitation Quetiapine Fumarate (Quetiapine Fumarate 50 Mg Tablet) 50 mg PO BEDTIME [facility] Thyroid (Thyroid,Pork 30 Mg Tablet) 15 mg PO DAILY@0630 [facility] Last Admin: 04/13/23 06:07 Dose: 15 mg Vitamin D (Cholecalciferol (Vitamin D3) 10 Mcg Tablet) 10 mcg PO DAILY [facility] Last Admin: 04/13/23 08:41 Dose: 10 mcg Zolpidem Tartrate (Zolpidem Tartrate 5 Mg Tablet) 10 mg PO BEDTIME [facility] Last Admin: 04/12/23 20:46 Dose: 10 mg Allergies Allergies Allergy/AdvReac Type Severity Reaction Status Date / Time amoxicillin Allergy Unknown Unknown Uncoded 03/25/23 11:07 Pt states no food allergy Allergy Unknown Unknown Uncoded 03/25/23 11:07 Assessment & Plan Assessment & Plan (1) PTSD (post-traumatic stress disorder): Status: Acute Code(s): F43.10 - Post-traumatic stress disorder, unspecified (2) Bipolar affective disorder, manic, severe, with psychotic behavior: Status: Acute Code(s): F31.2 - Bipolar disorder, current episode manic severe with psychotic features Assessment and Plan: 04/12/23 ongoing becca but seems less labile and pressured today- more cooperative with medical care Plan 62 yo female, history of PTSD, Bipolar Disorder with Psychosis, self presents reporting she has stopped medications. She asks to go to [place], however, is willing to work with the team on M5 at this time. She has stopped meds and is willing to re-start. She has several requests regarding meds which were addressed, however, she will be making further requests as her treatment continues. At this time, she reports being controlled by Estefania Mosqueda in all aspects of her life. This has caused great fear and anxiety. Pt has written several pages regarding this issue and is willing to share these. During our meeting she presents with acute becca, feeling overwhelmed with being controlled and vulnerable. Attempted to offer support, structure, safety for pt today. She has been able to appear to move freely in milieu, sing, dance and appears to feel comfortable and safe while settling in. Plan: Re-establish regime, medical and psychiatric Abilify 5 mg daily- pt request this trial, reports effective history. Today, pt has had ambivalence about Miralax order, asking ~7 times to start and stop. As of this writing, she asks that we not put it on her list of meds. Full milieu Collateral contact Diagnostics as needed. 03/28: Continue current regimen and plans 03/29: Continue current regimen and plans. Increased Abilify to 10 mg and Ambien to 10 mg 03/30: Continue current plans and regimen 03/31: Will file Section 7 on 04/01. 04/02/23: DC Seroquel at HS Increase Trazodone to 75 mg HS. MR x1. Ceftin to stop 04/03. 04/03/23: Increase Abilify to 10 mg bid 04/04: Continue current management and treatment plan. 04/05: check Tegretol level in AM and consider titration based on level and consider titration of Abilify. 04/06: Pt declines Abilify titration at this time. TDN 04/08. 04/08: Section 7, HCP activation 04/09: Encourage treatment with [facility] 04/11/23 continues labile some struggle around diabetes care- 04/12/23 Hold off on Abilify injectable until clear whether or not Abilify will be helpful Abilify 15 mg twice a day morning and after late afternoon Seroquel at bedtime continue Tegretol Reason for continued inpatient stay Substantial Risk for: harm to others, inability to function and rapid decompensation Time Spent With Patient Time: Total time managing care of this patient today ____ minutes.
[2023-04-13 18:00] VITALS: BP 119/69; PULSE 95; RESP 20; TEMP 36.6; O2SAT 96
[2023-04-13] MEDS: Atorvastatin Calcium 40 MG TABLET PO (21:42)
[2023-04-13] MEDS: carBAMazepine ER 200 MG TAB.ER.12H 400 MG PO (21:42)
[2023-04-13] MEDS: LORazepam 1 MG TABLET PO (21:43)
[2023-04-13] MEDS: QUEtiapine Fumarate 50 MG TABLET PO (21:43)
[2023-04-13] MEDS: Zolpidem Tartrate 5 MG TABLET 10 MG PO (21:43)
[2023-04-14] MEDS: Thyroid,Pork 30 MG TABLET 15 MG PO (06:18)
[2023-04-14 08:11] LABS: Glucose, Whole Blood 119 mg/dL (60-115)
[2023-04-14] MEDS: Ondansetron ODT 4 MG TAB.RAPDIS TRANSLINGU (08:30)
[2023-04-14] MEDS: amLODIPine Besylate 2.5 MG TABLET PO (08:33)
[2023-04-14] MEDS: Magnesium Oxide 400 MG TABLET PO (08:33)
[2023-04-14] MEDS: ARIPiprazole 15 MG TABLET PO ×2 (08:33→18:02)
[2023-04-14] MEDS: Aspirin Enteric Coated 81 MG TABLET.DR PO (08:33)
[2023-04-14] MEDS: Benztropine Mesylate 1 MG TABLET PO (08:34)
[2023-04-14] MEDS: Cholecalciferol (Vitamin D3) 10 MCG TABLET PO (08:34)
[2023-04-14] MEDS: carBAMazepine ER 200 MG TAB.ER.12H PO (08:34)
[2023-04-14] MEDS: Metoprolol Succinate ER 12.5 MG HALFTAB.ER.24H PO (08:34)
[2023-04-14] MEDS: Furosemide 20 MG TABLET PO (08:34)
[2023-04-14] MEDS: Cyanocobalamin (Vitamin B-12) 100 MCG TABLET PO (08:34)
[2023-04-14 11:27] VITALS: BP 113/55; PULSE 95; RESP 16; TEMP 36.5; O2SAT 95
[2023-04-14 12:46] LABS: Glucose, Whole Blood 139 mg/dL (60-115)
[2023-04-14 17:07] LABS: Glucose, Whole Blood 128 mg/dL (60-115)
[2023-04-14 18:00] VITALS: BP 151/70; PULSE 100; RESP 18; TEMP 36.2; O2SAT 96
[2023-04-14 21:19] LABS: Glucose, Whole Blood 124 mg/dL (60-115)
[2023-04-14] MEDS: Zolpidem Tartrate 5 MG TABLET 10 MG PO (21:19)
[2023-04-14] MEDS: QUEtiapine Fumarate 50 MG TABLET PO (21:19)
[2023-04-14] MEDS: carBAMazepine ER 200 MG TAB.ER.12H 400 MG PO (21:19)
[2023-04-14] MEDS: Atorvastatin Calcium 40 MG TABLET PO (21:19)
[2023-04-14] MEDS: LORazepam 1 MG TABLET PO (21:20)
--- NOTE | 2023-04-14 21:24 | HO.PSYCHPN ---
Subjective Subjective Date of Service: 04/14/23 Reason For Visit: Bipolar Disorder Subjective Notes: Section 7 Interim History: pt seen had refused abilify last nite floridly paranoid bizarre preoccupations not willing to try alt to abilify asking to leave has 3 day difficulkt time understanding sect 7 filed Medication Compliance: Intermittent Mental Status Exam Mental Status Exam Patient Appearance: Well Grooomed and Appropriate Patient Orientation: Person, Place, Time and Situation Level of Consciousness: Awake Patient Behavior: Appropriate and Suspicious Mood Description: Suspicious, Labile and Expansive Affect Description: Labile, Apprehensive and Expansive Patient Cognition Impaired: No Ability to Follow Directions: Fair Speech Pattern: Perseverating and Pressured Hallucinations: Visual Delusions: Paranoid Ideation and Bizarre (cameras in her vagina ) Thought Process: Racing Thought Content: positive for Disorganized Depressive Symptoms: Difficulty Concentrating Abnormal Motor Activity Signs and Symptoms: Hyperactivity Judgement: Fair Diagnostics Vital Signs (24Hr): Vital Signs - 24 hr 04/14/23 11:27 04/14/23 18:00 Temperature 97.7 F 97.2 F Pulse Rate 95 100 Respiratory Rate 16 18 Blood Pressure 113/55 L 151/70 H Pulse Oximetry 95 96 Oxygen Delivery Method Room Air Room Air BMI result Body Mass Index 35.7 Labs 04/02/23 08:21 03/25/23 11:34 Labs: Laboratory Results - last 48 hr 04/12/23 04/13/23 04/13/23 20:42 08:33 12:16 POC Glucose 118 H 146 H 131 H 04/13/23 04/14/23 04/14/23 17:05 08:06 12:42 POC Glucose 186 H 119 H 139 H 04/14/23 04/14/23 17:04 21:15 POC Glucose 128 H 124 H Medications Medications Current Medications Acetaminophen (Acetaminophen 325 Mg Tablet) 650 mg PO Q6H PRN PRN Reason: Headache/Pain Mild Scale (1-3) Al Hydroxide/Mg Hydroxide (Magnesium Hydrox/Alum Hydrox 30 Ml Oral.Susp) 30 ml PO Q6H PRN PRN Reason: Heartburn/Nausea Amlodipine Besylate (Amlodipine Besylate 2.5 Mg Tablet) 2.5 mg PO DAILY [facility]; Protocol Last Admin: 04/14/23 08:33 Dose: 2.5 mg Aripiprazole (Aripiprazole 15 Mg Tablet) 15 mg PO BID@0800,1800 [facility] Last Admin: 04/14/23 18:02 Dose: 15 mg Aspirin (Aspirin Enteric Coated 81 Mg Tablet.Dr) 81 mg PO DAILY [facility] Last Admin: 04/14/23 08:33 Dose: 81 mg Atorvastatin Calcium (Atorvastatin Calcium 40 Mg Tablet) 40 mg PO BEDTIME [facility] Last Admin: 04/14/23 21:19 Dose: 40 mg Benztropine Mesylate (Benztropine Mesylate 1 Mg Tablet) 1 mg PO DAILY [facility] Last Admin: 04/14/23 08:34 Dose: 1 mg Carbamazepine (Carbamazepine Er 200 Mg Tab.Er.12h) 400 mg PO BEDTIME [facility] Last Admin: 04/14/23 21:19 Dose: 400 mg Carbamazepine (Carbamazepine Er 200 Mg Tab.Er.12h) 200 mg PO DAILY [facility] Last Admin: 04/14/23 08:34 Dose: 200 mg Cyanocobalamin (Cyanocobalamin (Vitamin B-12) 100 Mcg Tablet) 100 mcg PO DAILY [facility] Last Admin: 04/14/23 08:34 Dose: 100 mcg Dextrose (Dextrose 50 % 25 Gm/50 Ml Syringe) 25 gm IVPUSH Q15M PRN; Protocol PRN Reason: per Hypoglycemia Standing Ord. Furosemide (Furosemide 20 Mg Tablet) 20 mg PO DAILY [facility]; Protocol Last Admin: 04/14/23 08:34 Dose: 20 mg Glucose (Glucose Gel 15 Gm Gel..Gram.) 15 gm PO Q15M PRN; Protocol PRN Reason: per Hypoglycemia Standing Ord. Hydroxyzine HCl (Hydroxyzine Hcl 25 Mg Tablet) 25 mg PO Q6H PRN PRN Reason: Anxiety Last Admin: 03/30/23 16:27 Dose: 25 mg Insulin Human Lispro (Insulin Lispro 100 Unit/Ml 3 Ml Vial) 0 unit SUBCUT QIDACHS [facility]; Protocol Last Admin: 04/14/23 18:02 Dose: Not Given Lorazepam (Lorazepam 1 Mg Tablet) 1 mg PO BEDTIME [facility] Last Admin: 04/14/23 21:20 Dose: 1 mg Lorazepam (Lorazepam 1 Mg Tablet) 1 mg PO BEDTIME PRN PRN Reason: Insomnia Last Admin: 04/12/23 23:40 Dose: 1 mg Magnesium Hydroxide (Milk Of Magnesia 30 Ml Oral.Susp) 30 ml PO DAILY PRN PRN Reason: Constipation Last Admin: 04/13/23 09:56 Dose: 30 ml Magnesium Oxide (Magnesium Oxide 400 Mg Tablet) 400 mg PO DAILY [facility] Last Admin: 04/14/23 08:33 Dose: 400 mg Metoprolol Succinate (Metoprolol Succinate Er 12.5 Mg Halftab.Er.24h) 12.5 mg PO DAILY [facility]; Protocol Last Admin: 04/14/23 08:34 Dose: 12.5 mg Pt Own (Trulicity 3 (Mg)) 3 mg SUBCUT Q7D [facility] Last Admin: 04/11/23 12:37 Dose: Not Given Ondansetron HCl (Ondansetron Odt 4 Mg Tab.Rapdis) 4 mg TRANSLINGU Q6H PRN PRN Reason: Nausea Last Admin: 04/14/23 08:30 Dose: 4 mg Polyethylene Glycol (Polyethylene Glycol 3350 17 Gm Powd.Pack) 17 gm PO DAILY PRN PRN Reason: Constipation Last Admin: 03/30/23 13:46 Dose: 17 gm Quetiapine Fumarate (Quetiapine Fumarate 50 Mg Tablet) 50 mg PO BID PRN PRN Reason: becca, agitation Quetiapine Fumarate (Quetiapine Fumarate 50 Mg Tablet) 50 mg PO BEDTIME [facility] Last Admin: 04/14/23 21:19 Dose: 50 mg Thyroid (Thyroid,Pork 30 Mg Tablet) 15 mg PO DAILY@0630 [facility] Last Admin: 04/14/23 06:18 Dose: 15 mg Vitamin D (Cholecalciferol (Vitamin D3) 10 Mcg Tablet) 10 mcg PO DAILY [facility] Last Admin: 04/14/23 08:34 Dose: 10 mcg Zolpidem Tartrate (Zolpidem Tartrate 5 Mg Tablet) 10 mg PO BEDTIME [facility] Last Admin: 04/14/23 21:19 Dose: 10 mg Allergies Allergies Allergy/AdvReac Type Severity Reaction Status Date / Time amoxicillin Allergy Unknown Unknown Uncoded 03/25/23 11:07 Pt states no food allergy Allergy Unknown Unknown Uncoded 03/25/23 11:07 Assessment & Plan Assessment & Plan (1) PTSD (post-traumatic stress disorder): Status: Acute Code(s): F43.10 - Post-traumatic stress disorder, unspecified (2) Bipolar affective disorder, manic, severe, with psychotic behavior: Status: Acute Code(s): F31.2 - Bipolar disorder, current episode manic severe with psychotic features Assessment and Plan: 04/12/23 ongoing becca but seems less labile and pressured today- more cooperative with medical care Plan 62 yo female, history of PTSD, Bipolar Disorder with Psychosis, self presents reporting she has stopped medications. She asks to go to [place], however, is willing to work with the team on M5 at this time. She has stopped meds and is willing to re-start. She has several requests regarding meds which were addressed, however, she will be making further requests as her treatment continues. At this time, she reports being controlled by Estefania Mosqueda in all aspects of her life. This has caused great fear and anxiety. Pt has written several pages regarding this issue and is willing to share these. During our meeting she presents with acute becca, feeling overwhelmed with being controlled and vulnerable. Attempted to offer support, structure, safety for pt today. She has been able to appear to move freely in milieu, sing, dance and appears to feel comfortable and safe while settling in. Plan: Re-establish regime, medical and psychiatric Abilify 5 mg daily- pt request this trial, reports effective history. Today, pt has had ambivalence about Miralax order, asking ~7 times to start and stop. As of this writing, she asks that we not put it on her list of meds. Full milieu Collateral contact Diagnostics as needed. 03/28: Continue current regimen and plans 03/29: Continue current regimen and plans. Increased Abilify to 10 mg and Ambien to 10 mg 03/30: Continue current plans and regimen 03/31: Will file Section 7 on 04/01. 04/02/23: DC Seroquel at HS Increase Trazodone to 75 mg HS. MR x1. Ceftin to stop 04/03. 04/03/23: Increase Abilify to 10 mg bid 04/04: Continue current management and treatment plan. 04/05: check Tegretol level in AM and consider titration based on level and consider titration of Abilify. 04/06: Pt declines Abilify titration at this time. TDN 04/08. 04/08: Section 7, HCP activation 04/09: Encourage treatment with [facility] 04/11/23 continues labile some struggle around diabetes care- 04/12/23 Hold off on Abilify injectable until clear whether or not Abilify will be helpful Abilify 15 mg twice a day morning and after late afternoon Seroquel at bedtime continue Tegretol 04/14/23 Abilify 15 bid seroquel hs encourage change to invega continues psychotic Reason for continued inpatient stay Substantial Risk for: harm to self, inability to function and rapid decompensation Time Spent With Patient Time: Total time managing care of this patient today ____ minutes.
[2023-04-15] MEDS: Thyroid,Pork 30 MG TABLET 15 MG PO (05:37)
[2023-04-15 08:09] LABS: Glucose, Whole Blood 129 mg/dL (60-115)
[2023-04-15 08:10] VITALS: BP 135/63; PULSE 90; RESP 16; TEMP 36.3; O2SAT 96
[2023-04-15] MEDS: Furosemide 20 MG TABLET PO (08:16)
[2023-04-15] MEDS: Aspirin Enteric Coated 81 MG TABLET.DR PO (08:17)
[2023-04-15] MEDS: carBAMazepine ER 200 MG TAB.ER.12H PO (08:17)
[2023-04-15] MEDS: Cyanocobalamin (Vitamin B-12) 100 MCG TABLET PO (08:17)
[2023-04-15] MEDS: Metoprolol Succinate ER 12.5 MG HALFTAB.ER.24H PO (08:17)
[2023-04-15] MEDS: Benztropine Mesylate 1 MG TABLET PO (08:18)
[2023-04-15] MEDS: amLODIPine Besylate 2.5 MG TABLET PO (08:18)
[2023-04-15] MEDS: Cholecalciferol (Vitamin D3) 10 MCG TABLET PO (08:18)
[2023-04-15] MEDS: Magnesium Oxide 400 MG TABLET PO (08:18)
[2023-04-15] MEDS: ARIPiprazole 15 MG TABLET PO ×2 (08:18→17:34)
[2023-04-15 12:05] LABS: Glucose, Whole Blood 162 mg/dL (60-115)
--- NOTE | 2023-04-15 14:07 | PC.NURSE ---
Per outpatient pharmacy pt's new prescription for Trulicity has a copay of approximately $96.00 and will need a new override before it can be filled. Outpatient pharmacy waiting to hear from unit if pt's copay will be waived or if will need to be paid by pt. Once that information gets relayed to outpatient pharmacy, they will override and fill prescription, which they state is currently in stock. Discussed this information with Dr. Krueger, who is aware that pt's own Trulicity supply was not refrigerated upon arrival to hospital and subsequently deemed . New prescription for Trulicty that was sent to outpatient pharmacy is replacement for pt's own supply, and next dose due on Thursday04/18/23.
--- NOTE | 2023-04-15 16:13 | P.PNPSI_ITS ---
Subjective Subjective Date of Service: 04/15/23 Reason For Visit: Bipolar Disorder Subjective Notes: Section 7 Interim History: pt seen in f/u mood somewhat expansive has had paranoid preoccupations mood instability limited insight multiple paranoid concerns referential delusions Medication Compliance: Intermittent Mental Status Exam Mental Status Exam Patient Appearance: Well Grooomed and Appropriate Patient Orientation: Person, Place, Time and Situation Level of Consciousness: Awake Patient Behavior: Appropriate and Suspicious Mood Description: Suspicious, Labile and Expansive Affect Description: Labile, Apprehensive and Expansive Patient Cognition Impaired: No Ability to Follow Directions: Fair Speech Pattern: Perseverating and Pressured Memory Description: Intact Hallucinations: Visual Delusions: Paranoid Ideation and Bizarre (cameras in her vagina ) Thought Process: Racing Thought Content: positive for Disorganized Depressive Symptoms: Increased Anxiety, Increased Irritability and Difficulty Concentrating Abnormal Motor Activity Signs and Symptoms: Hyperactivity Judgement: Fair Judgement and Insight: florid paranoid preoccupations bizarre delusions Diagnostics Vital Signs (24Hr): Vital Signs - 24 hr 04/14/23 18:00 04/15/23 08:10 Temperature 97.2 F 97.4 F Pulse Rate 100 90 Respiratory Rate 18 16 Blood Pressure 151/70 H 135/63 Pulse Oximetry 96 96 Oxygen Delivery Method Room Air Room Air BMI result Body Mass Index 35.7 Labs 04/02/23 08:21 03/25/23 11:34 Labs: Laboratory Results - last 48 hr 04/13/23 04/14/23 04/14/23 17:05 08:06 12:42 POC Glucose 186 H 119 H 139 H 04/14/23 04/14/23 04/15/23 17:04 21:15 08:05 POC Glucose 128 H 124 H 129 H 04/15/23 12:00 POC Glucose 162 H Medications Medications Current Medications Acetaminophen (Acetaminophen 325 Mg Tablet) 650 mg PO Q6H PRN PRN Reason: Headache/Pain Mild Scale (1-3) Al Hydroxide/Mg Hydroxide (Magnesium Hydrox/Alum Hydrox 30 Ml Oral.Susp) 30 ml PO Q6H PRN PRN Reason: Heartburn/Nausea Amlodipine Besylate (Amlodipine Besylate 2.5 Mg Tablet) 2.5 mg PO DAILY [facility]; Protocol Last Admin: 04/15/23 08:18 Dose: 2.5 mg Aripiprazole (Aripiprazole 15 Mg Tablet) 15 mg PO BID@0800,1800 [facility] Last Admin: 04/15/23 08:18 Dose: 15 mg Aspirin (Aspirin Enteric Coated 81 Mg Tablet.Dr) 81 mg PO DAILY [facility] Last Admin: 04/15/23 08:17 Dose: 81 mg Atorvastatin Calcium (Atorvastatin Calcium 40 Mg Tablet) 40 mg PO BEDTIME [facility] Last Admin: 04/14/23 21:19 Dose: 40 mg Benztropine Mesylate (Benztropine Mesylate 1 Mg Tablet) 1 mg PO DAILY [facility] Last Admin: 04/15/23 08:18 Dose: 1 mg Carbamazepine (Carbamazepine Er 200 Mg Tab.Er.12h) 400 mg PO BEDTIME [facility] Last Admin: 04/14/23 21:19 Dose: 400 mg Carbamazepine (Carbamazepine Er 200 Mg Tab.Er.12h) 200 mg PO DAILY [facility] Last Admin: 04/15/23 08:17 Dose: 200 mg Cyanocobalamin (Cyanocobalamin (Vitamin B-12) 100 Mcg Tablet) 100 mcg PO DAILY [facility] Last Admin: 04/15/23 08:17 Dose: 100 mcg Dextrose (Dextrose 50 % 25 Gm/50 Ml Syringe) 25 gm IVPUSH Q15M PRN; Protocol PRN Reason: per Hypoglycemia Standing Ord. Furosemide (Furosemide 20 Mg Tablet) 20 mg PO DAILY [facility]; Protocol Last Admin: 04/15/23 08:16 Dose: 20 mg Glucose (Glucose Gel 15 Gm Gel..Gram.) 15 gm PO Q15M PRN; Protocol PRN Reason: per Hypoglycemia Standing Ord. Hydroxyzine HCl (Hydroxyzine Hcl 25 Mg Tablet) 25 mg PO Q6H PRN PRN Reason: Anxiety Last Admin: 03/30/23 16:27 Dose: 25 mg Insulin Human Lispro (Insulin Lispro 100 Unit/Ml 3 Ml Vial) 0 unit SUBCUT QIDACHS [facility]; Protocol Last Admin: 04/15/23 12:52 Dose: Not Given Lorazepam (Lorazepam 1 Mg Tablet) 1 mg PO BEDTIME [facility] Last Admin: 04/14/23 21:20 Dose: 1 mg Lorazepam (Lorazepam 1 Mg Tablet) 1 mg PO BEDTIME PRN PRN Reason: Insomnia Last Admin: 04/12/23 23:40 Dose: 1 mg Magnesium Hydroxide (Milk Of Magnesia 30 Ml Oral.Susp) 30 ml PO DAILY PRN PRN Reason: Constipation Last Admin: 04/13/23 09:56 Dose: 30 ml Magnesium Oxide (Magnesium Oxide 400 Mg Tablet) 400 mg PO DAILY [facility] Last Admin: 04/15/23 08:18 Dose: 400 mg Metoprolol Succinate (Metoprolol Succinate Er 12.5 Mg Halftab.Er.24h) 12.5 mg PO DAILY [facility]; Protocol Last Admin: 04/15/23 08:17 Dose: 12.5 mg Pt Own (Trulicity 3 (Mg)) 3 mg SUBCUT Q7D [facility] Last Admin: 04/11/23 12:37 Dose: Not Given Ondansetron HCl (Ondansetron Odt 4 Mg Tab.Rapdis) 4 mg TRANSLINGU Q6H PRN PRN Reason: Nausea Last Admin: 04/14/23 08:30 Dose: 4 mg Polyethylene Glycol (Polyethylene Glycol 3350 17 Gm Powd.Pack) 17 gm PO DAILY PRN PRN Reason: Constipation Last Admin: 03/30/23 13:46 Dose: 17 gm Quetiapine Fumarate (Quetiapine Fumarate 50 Mg Tablet) 50 mg PO BID PRN PRN Reason: becca, agitation Quetiapine Fumarate (Quetiapine Fumarate 50 Mg Tablet) 50 mg PO BEDTIME [facility] Last Admin: 04/14/23 21:19 Dose: 50 mg Thyroid (Thyroid,Pork 30 Mg Tablet) 15 mg PO DAILY@0630 [facility] Last Admin: 04/15/23 05:37 Dose: 15 mg Vitamin D (Cholecalciferol (Vitamin D3) 10 Mcg Tablet) 10 mcg PO DAILY [facility] Last Admin: 04/15/23 08:18 Dose: 10 mcg Zolpidem Tartrate (Zolpidem Tartrate 5 Mg Tablet) 10 mg PO BEDTIME [facility] Last Admin: 04/14/23 21:19 Dose: 10 mg Allergies Allergies Allergy/AdvReac Type Severity Reaction Status Date / Time amoxicillin Allergy Unknown Unknown Uncoded 03/25/23 11:07 Pt states no food allergy Allergy Unknown Unknown Uncoded 03/25/23 11:07 Assessment & Plan Assessment & Plan (1) PTSD (post-traumatic stress disorder): Status: Acute Code(s): F43.10 - Post-traumatic stress disorder, unspecified (2) Bipolar affective disorder, manic, severe, with psychotic behavior: Status: Acute Code(s): F31.2 - Bipolar disorder, current episode manic severe with psychotic features Assessment and Plan: 04/12/23 ongoing becca but seems less labile and pressured today- more cooperative with medical care Plan 62 yo female, history of PTSD, Bipolar Disorder with Psychosis, self presents reporting she has stopped medications. She asks to go to [place], however, is willing to work with the team on M5 at this time. She has stopped meds and is willing to re-start. She has several requests regarding meds which were addressed, however, she will be making further requests as her treatment continues. At this time, she reports being controlled by Estefania Mosqueda in all aspects of her life. This has caused great fear and anxiety. Pt has written several pages regarding this issue and is willing to share these. During our meeting she presents with acute becca, feeling overwhelmed with being controlled and vulnerable. Attempted to offer support, structure, safety for pt today. She has been able to appear to move freely in milieu, sing, dance and appears to feel comfortable and safe while settling in. Plan: Re-establish regime, medical and psychiatric Abilify 5 mg daily- pt request this trial, reports effective history. Today, pt has had ambivalence about Miralax order, asking ~7 times to start and stop. As of this writing, she asks that we not put it on her list of meds. Full milieu Collateral contact Diagnostics as needed. 03/28: Continue current regimen and plans 03/29: Continue current regimen and plans. Increased Abilify to 10 mg and Ambien to 10 mg 03/30: Continue current plans and regimen 03/31: Will file Section 7 on 04/01. 04/02/23: DC Seroquel at HS Increase Trazodone to 75 mg HS. MR x1. Ceftin to stop 04/03. 04/03/23: Increase Abilify to 10 mg bid 04/04: Continue current management and treatment plan. 04/05: check Tegretol level in AM and consider titration based on level and consider titration of Abilify. 04/06: Pt declines Abilify titration at this time. TDN 04/08. 04/08: Section 7, HCP activation 04/09: Encourage treatment with [facility] 04/11/23 continues labile some struggle around diabetes care- 04/12/23 Hold off on Abilify injectable until clear whether or not Abilify will be helpful Abilify 15 mg twice a day morning and after late afternoon Seroquel at bedtime continue Tegretol 04/14/23 Abilify 15 bid seroquel hs encourage change to invega continues psychotic 04/15/23 Depakote 250 bid evaluate response to abilify Reason for continued inpatient stay Substantial Risk for: inability to function and rapid decompensation Time Spent With Patient Time: Total time managing care of this patient today ____ minutes.
[2023-04-15 17:38] LABS: Glucose, Whole Blood 121 mg/dL (60-115)
[2023-04-15 18:00] VITALS: BP 165/79; PULSE 99; RESP 16; TEMP 36.7; O2SAT 99
[2023-04-15] MEDS: Atorvastatin Calcium 40 MG TABLET PO (21:39)
[2023-04-15] MEDS: LORazepam 1 MG TABLET PO (21:39)
[2023-04-15] MEDS: carBAMazepine ER 200 MG TAB.ER.12H 400 MG PO (21:39)
[2023-04-15] MEDS: QUEtiapine Fumarate 50 MG TABLET PO (21:39)
[2023-04-15] MEDS: Zolpidem Tartrate 5 MG TABLET 10 MG PO (21:39)
--- NOTE | 2023-04-15 21:42 | PC.NURSE ---
PT refused PM Insulin coverage. I don't take that, I'm waiting for my Trulicity .
[2023-04-15 22:47] LABS: Glucose, Whole Blood 156 mg/dL (60-115)
[2023-04-16] MEDS: Thyroid,Pork 30 MG TABLET 15 MG PO (06:02)
[2023-04-16 07:00] VITALS: BMI 36.4
[2023-04-16 07:30] VITALS: BP 133/68; PULSE 90; RESP 15; TEMP 36.4; O2SAT 95
[2023-04-16 08:19] LABS: Glucose, Whole Blood 119 mg/dL (60-115)
[2023-04-16] MEDS: Aspirin Enteric Coated 81 MG TABLET.DR PO (08:35)
[2023-04-16] MEDS: Metoprolol Succinate ER 12.5 MG HALFTAB.ER.24H PO (08:35)
[2023-04-16] MEDS: ARIPiprazole 15 MG TABLET PO ×2 (08:35→20:03)
[2023-04-16] MEDS: carBAMazepine ER 200 MG TAB.ER.12H PO (08:35)
[2023-04-16] MEDS: Divalproex Sodium 250 MG TABLET.DR PO ×2 (08:36→20:04)
[2023-04-16] MEDS: Magnesium Oxide 400 MG TABLET PO (08:36)
[2023-04-16] MEDS: Benztropine Mesylate 1 MG TABLET PO (08:36)
[2023-04-16] MEDS: Cyanocobalamin (Vitamin B-12) 100 MCG TABLET PO (08:36)
[2023-04-16] MEDS: amLODIPine Besylate 2.5 MG TABLET PO (08:36)
[2023-04-16] MEDS: Cholecalciferol (Vitamin D3) 10 MCG TABLET PO (08:36)
[2023-04-16] MEDS: Furosemide 20 MG TABLET PO (08:36)
--- NOTE | 2023-04-16 17:14 | HO.PSYCHPN ---
Subjective Subjective Date of Service: 04/16/23 Reason For Visit: Bipolar Disorder Subjective Notes: Section 7 Interim History: Patient irritable dysphoric preoccupied with multiple perceived slights periods of flight of ideas thought she can see the future grandiose preoccupied special abilities but also strong delusional preoccupation that someone was controlling her that she is given evidence the government has a difficult time understanding that there has been a filing for civil commitment Abilify does not seem to be helpful Mental Status Exam Mental Status Exam Patient Appearance: Well Grooomed Patient Orientation: Person, Place, Time and Situation Level of Consciousness: Awake Patient Behavior: Appropriate, Suspicious, Anxious and Good Eye Contact Mood Description: Suspicious, Labile, Angry and Expansive Affect Description: Labile, Apprehensive and Expansive Patient Cognition Impaired: No Ability to Follow Directions: Fair Speech Pattern: Perseverating, Rambling and Pressured Memory Description: Intact Hallucinations: Visual Delusions: Paranoid Ideation and Bizarre (cameras in her vagina ) Thought Process: Racing Thought Content: positive for Disorganized Depressive Symptoms: Increased Anxiety, Increased Irritability and Difficulty Concentrating Abnormal Motor Activity Signs and Symptoms: Hyperactivity Judgement: Fair Judgement and Insight: florid paranoid preoccupations bizarre delusions discontinues marked limited insight Diagnostics Vital Signs (24Hr): Vital Signs - 24 hr 04/15/23 18:00 04/16/23 07:30 Temperature 98.1 F 97.6 F Pulse Rate 99 90 Respiratory Rate 16 15 Blood Pressure 165/79 H 133/68 Pulse Oximetry 99 95 Oxygen Delivery Method Room Air Room Air BMI result Body Mass Index 36.4 Labs 04/02/23 08:21 03/25/23 11:34 Labs: Laboratory Results - last 48 hr 04/14/23 04/15/23 04/15/23 21:15 08:05 12:00 POC Glucose 124 H 129 H 162 H 04/15/23 04/15/23 04/16/23 17:29 21:35 08:14 POC Glucose 121 H 156 H 119 H Medications Medications Current Medications Acetaminophen (Acetaminophen 325 Mg Tablet) 650 mg PO Q6H PRN PRN Reason: Headache/Pain Mild Scale (1-3) Al Hydroxide/Mg Hydroxide (Magnesium Hydrox/Alum Hydrox 30 Ml Oral.Susp) 30 ml PO Q6H PRN PRN Reason: Heartburn/Nausea Amlodipine Besylate (Amlodipine Besylate 2.5 Mg Tablet) 2.5 mg PO DAILY [facility]; Protocol Last Admin: 04/16/23 08:36 Dose: 2.5 mg Aripiprazole (Aripiprazole 15 Mg Tablet) 15 mg PO BID@0800,1800 [facility] Last Admin: 04/16/23 08:35 Dose: 15 mg Aspirin (Aspirin Enteric Coated 81 Mg Tablet.) 81 mg PO DAILY [facility] Last Admin: 04/16/23 08:35 Dose: 81 mg Atorvastatin Calcium (Atorvastatin Calcium 40 Mg Tablet) 40 mg PO BEDTIME [facility] Last Admin: 04/15/23 21:39 Dose: 40 mg Benztropine Mesylate (Benztropine Mesylate 1 Mg Tablet) 1 mg PO DAILY [facility] Last Admin: 04/16/23 08:36 Dose: 1 mg Carbamazepine (Carbamazepine Er 200 Mg Tab.Er.12h) 400 mg PO BEDTIME [facility] Last Admin: 04/15/23 21:39 Dose: 400 mg Carbamazepine (Carbamazepine Er 200 Mg Tab.Er.12h) 200 mg PO DAILY [facility] Last Admin: 04/16/23 08:35 Dose: 200 mg Cyanocobalamin (Cyanocobalamin (Vitamin B-12) 100 Mcg Tablet) 100 mcg PO DAILY [facility] Last Admin: 04/16/23 08:36 Dose: 100 mcg Dextrose (Dextrose 50 % 25 Gm/50 Ml Syringe) 25 gm IVPUSH Q15M PRN; Protocol PRN Reason: per Hypoglycemia Standing Ord. Divalproex Sodium (Divalproex Sodium 250 Mg Tablet.) 250 mg PO BID [facility] Last Admin: 04/16/23 08:36 Dose: 250 mg Furosemide (Furosemide 20 Mg Tablet) 20 mg PO DAILY [facility]; Protocol Last Admin: 04/16/23 08:36 Dose: 20 mg Glucose (Glucose Gel 15 Gm Gel..Gram.) 15 gm PO Q15M PRN; Protocol PRN Reason: per Hypoglycemia Standing Ord. Hydroxyzine HCl (Hydroxyzine Hcl 25 Mg Tablet) 25 mg PO Q6H PRN PRN Reason: Anxiety Last Admin: 03/30/23 16:27 Dose: 25 mg Insulin Human Lispro (Insulin Lispro 100 Unit/Ml 3 Ml Vial) 0 unit SUBCUT QIDACHS [facility]; Protocol Last Admin: 04/16/23 12:58 Dose: Not Given Lorazepam (Lorazepam 1 Mg Tablet) 1 mg PO BEDTIME [facility] Last Admin: 04/15/23 21:39 Dose: 1 mg Lorazepam (Lorazepam 1 Mg Tablet) 1 mg PO BEDTIME PRN PRN Reason: Insomnia Last Admin: 04/12/23 23:40 Dose: 1 mg Magnesium Hydroxide (Milk Of Magnesia 30 Ml Oral.Susp) 30 ml PO DAILY PRN PRN Reason: Constipation Last Admin: 04/13/23 09:56 Dose: 30 ml Magnesium Oxide (Magnesium Oxide 400 Mg Tablet) 400 mg PO DAILY [facility] Last Admin: 04/16/23 08:36 Dose: 400 mg Metoprolol Succinate (Metoprolol Succinate Er 12.5 Mg Halftab.Er.24h) 12.5 mg PO DAILY [facility]; Protocol Last Admin: 04/16/23 08:35 Dose: 12.5 mg Pt Own (Trulicity 3 (Mg)) 3 mg SUBCUT Q7D [facility] Last Admin: 04/11/23 12:37 Dose: Not Given Ondansetron HCl (Ondansetron Odt 4 Mg Tab.Rapdis) 4 mg TRANSLINGU Q6H PRN PRN Reason: Nausea Last Admin: 04/14/23 08:30 Dose: 4 mg Polyethylene Glycol (Polyethylene Glycol 3350 17 Gm Powd.Pack) 17 gm PO DAILY PRN PRN Reason: Constipation Last Admin: 03/30/23 13:46 Dose: 17 gm Quetiapine Fumarate (Quetiapine Fumarate 50 Mg Tablet) 50 mg PO BID PRN PRN Reason: becca, agitation Quetiapine Fumarate (Quetiapine Fumarate 50 Mg Tablet) 50 mg PO BEDTIME [facility] Last Admin: 04/15/23 21:39 Dose: 50 mg Thyroid (Thyroid,Pork 30 Mg Tablet) 15 mg PO DAILY@0630 [facility] Last Admin: 04/16/23 06:02 Dose: 15 mg Vitamin D (Cholecalciferol (Vitamin D3) 10 Mcg Tablet) 10 mcg PO DAILY [facility] Last Admin: 04/16/23 08:36 Dose: 10 mcg Zolpidem Tartrate (Zolpidem Tartrate 5 Mg Tablet) 10 mg PO BEDTIME [facility] Last Admin: 04/15/23 21:39 Dose: 10 mg Allergies Allergies Allergy/AdvReac Type Severity Reaction Status Date / Time amoxicillin Allergy Unknown Unknown Uncoded 03/25/23 11:07 Pt states no food allergy Allergy Unknown Unknown Uncoded 03/25/23 11:07 Assessment & Plan Assessment & Plan (1) Bipolar affective disorder, manic, severe, with psychotic behavior: Status: Acute Code(s): F31.2 - Bipolar disorder, current episode manic severe with psychotic features Assessment and Plan: 04/12/23 ongoing becca but seems less labile and pressured today- more cooperative with medical care (2) PTSD (post-traumatic stress disorder): Status: Acute Code(s): F43.10 - Post-traumatic stress disorder, unspecified Plan 62 yo female, history of PTSD, Bipolar Disorder with Psychosis, self presents reporting she has stopped medications. She asks to go to [place], however, is willing to work with the team on M5 at this time. She has stopped meds and is willing to re-start. She has several requests regarding meds which were addressed, however, she will be making further requests as her treatment continues. At this time, she reports being controlled by Estefania Mosqueda in all aspects of her life. This has caused great fear and anxiety. Pt has written several pages regarding this issue and is willing to share these. During our meeting she presents with acute becca, feeling overwhelmed with being controlled and vulnerable. Attempted to offer support, structure, safety for pt today. She has been able to appear to move freely in milieu, sing, dance and appears to feel comfortable and safe while settling in. Plan: Re-establish regime, medical and psychiatric Abilify 5 mg daily- pt request this trial, reports effective history. Today, pt has had ambivalence about Miralax order, asking ~7 times to start and stop. As of this writing, she asks that we not put it on her list of meds. Full milieu Collateral contact Diagnostics as needed. 03/28: Continue current regimen and plans 03/29: Continue current regimen and plans. Increased Abilify to 10 mg and Ambien to 10 mg 03/30: Continue current plans and regimen 03/31: Will file Section 7 on 04/01. 04/02/23: DC Seroquel at HS Increase Trazodone to 75 mg HS. MR x1. Ceftin to stop 04/03. 04/03/23: Increase Abilify to 10 mg bid 04/04: Continue current management and treatment plan. 04/05: check Tegretol level in AM and consider titration based on level and consider titration of Abilify. 04/06: Pt declines Abilify titration at this time. TDN 04/08. 04/08: Section 7, HCP activation 04/09: Encourage treatment with [facility] 04/11/23 continues labile some struggle around diabetes care- 04/12/23 Hold off on Abilify injectable until clear whether or not Abilify will be helpful Abilify 15 mg twice a day morning and after late afternoon Seroquel at bedtime continue Tegretol 04/14/23 Abilify 15 bid seroquel hs encourage change to invega continues psychotic 04/15/23 Depakote 250 bid evaluate response to abilify 04/16/2023 Patient has had no clear response to Abilify floridly delusional early based thinking irritable preoccupied Reportedly had done well in the past on Invega does not wish to retry this discussed restarting therapeutic dose Seroquel which patient did eventually discontinue recently versus Vraylar for manic psychosis which she is agreeable to try Reason for continued inpatient stay Substantial Risk for: inability to function and rapid decompensation Time Spent With Patient Time: Total time managing care of this patient today ____ minutes.
[2023-04-16 20:02] LABS: Glucose, Whole Blood 140 mg/dL (60-115)
[2023-04-16] MEDS: carBAMazepine ER 200 MG TAB.ER.12H 400 MG PO (20:03)
[2023-04-16] MEDS: Zolpidem Tartrate 5 MG TABLET 10 MG PO (20:03)
[2023-04-16] MEDS: LORazepam 1 MG TABLET PO (20:04)
[2023-04-16] MEDS: QUEtiapine Fumarate 50 MG TABLET PO (20:04)
[2023-04-16] MEDS: Atorvastatin Calcium 40 MG TABLET PO (20:05)
[2023-04-16] MEDS: Milk of Magnesia 30 ML ORAL.SUSP PO (20:27)
[2023-04-17] MEDS: hydrOXYzine HCL 25 MG TABLET PO (03:07)
[2023-04-17] MEDS: Thyroid,Pork 30 MG TABLET 15 MG PO (06:26)
[2023-04-17 08:09] VITALS: BP 163/75; PULSE 89; RESP 16; TEMP 36.3; O2SAT 96
[2023-04-17 08:18] LABS: Glucose, Whole Blood 110 mg/dL (60-115)
[2023-04-17] MEDS: Cyanocobalamin (Vitamin B-12) 100 MCG TABLET PO (08:37)
[2023-04-17] MEDS: Furosemide 20 MG TABLET PO (08:38)
[2023-04-17] MEDS: Magnesium Oxide 400 MG TABLET PO (08:38)
[2023-04-17] MEDS: Divalproex Sodium 250 MG TABLET.DR PO ×2 (08:38→21:18)
[2023-04-17] MEDS: amLODIPine Besylate 2.5 MG TABLET PO (08:39)
[2023-04-17] MEDS: Metoprolol Succinate ER 12.5 MG HALFTAB.ER.24H PO (08:39)
[2023-04-17] MEDS: carBAMazepine ER 200 MG TAB.ER.12H PO (08:39)
[2023-04-17] MEDS: Aspirin Enteric Coated 81 MG TABLET.DR PO (08:40)
[2023-04-17] MEDS: Cholecalciferol (Vitamin D3) 10 MCG TABLET PO (08:40)
[2023-04-17] MEDS: ARIPiprazole 15 MG TABLET PO (08:40)
[2023-04-17] MEDS: Benztropine Mesylate 1 MG TABLET PO (08:40)
[2023-04-17 12:18] LABS: Glucose, Whole Blood 124 mg/dL (60-115)
--- NOTE | 2023-04-17 15:44 | PC.NURSE ---
Trulicity filled from outpatient pharmacy today and stored in the inpatient pharmacy. Pt aware.
[2023-04-17 17:39] LABS: Glucose, Whole Blood 138 mg/dL (60-115)
[2023-04-17 21:15] VITALS: BP 133/90; PULSE 101; RESP 18; TEMP 36.6; O2SAT 97
[2023-04-17] MEDS: carBAMazepine ER 200 MG TAB.ER.12H 400 MG PO (21:17)
[2023-04-17] MEDS: Atorvastatin Calcium 40 MG TABLET PO (21:17)
[2023-04-17] MEDS: LORazepam 1 MG TABLET PO (21:18)
[2023-04-17] MEDS: Zolpidem Tartrate 5 MG TABLET 10 MG PO (21:18)
--- NOTE | 2023-04-17 23:44 | P.PNPSI_ITS ---
Subjective Subjective Date of Service: 04/17/23 Reason For Visit: Bipolar Disorder Interim History: pt pressured labile periods of paranoid agitation Mental Status Exam Mental Status Exam Patient Appearance: Well Grooomed Patient Orientation: Person, Place, Time and Situation Level of Consciousness: Awake Patient Behavior: Appropriate, Suspicious, Anxious and Good Eye Contact Mood Description: Suspicious, Labile, Angry and Expansive Affect Description: Labile, Apprehensive and Expansive Patient Cognition Impaired: No Ability to Follow Directions: Fair Speech Pattern: Perseverating, Rambling and Pressured Memory Description: Intact Hallucinations: Visual Delusions: Paranoid Ideation and Bizarre (cameras in her vagina ) Thought Process: Racing Thought Content: positive for Disorganized Depressive Symptoms: Increased Anxiety, Increased Irritability and Difficulty Concentrating Abnormal Motor Activity Signs and Symptoms: Hyperactivity Judgement: Fair Judgement and Insight: florid paranoid preoccupations bizarre delusions discontinues marked limited insight Diagnostics Vital Signs (24Hr): Vital Signs - 24 hr 04/17/23 08:09 04/17/23 21:15 Temperature 97.3 F 97.8 F Pulse Rate 89 101 H Respiratory Rate 16 18 Blood Pressure 163/75 H 133/90 H Pulse Oximetry 96 97 Oxygen Delivery Method Room Air Room Air BMI result Body Mass Index 36.4 Labs 04/02/23 08:21 03/25/23 11:34 Labs: Laboratory Results - last 48 hr 04/16/23 04/16/23 04/17/23 08:14 19:57 08:13 POC Glucose 119 H 140 H 110 04/17/23 04/17/23 12:11 17:34 POC Glucose 124 H 138 H Medications Medications Current Medications Acetaminophen (Acetaminophen 325 Mg Tablet) 650 mg PO Q6H PRN PRN Reason: Headache/Pain Mild Scale (1-3) Al Hydroxide/Mg Hydroxide (Magnesium Hydrox/Alum Hydrox 30 Ml Oral.Susp) 30 ml PO Q6H PRN PRN Reason: Heartburn/Nausea Amlodipine Besylate (Amlodipine Besylate 2.5 Mg Tablet) 2.5 mg PO DAILY [facility]; Protocol Last Admin: 04/17/23 08:39 Dose: 2.5 mg Aripiprazole (Aripiprazole 10 Mg Tablet) 10 mg PO DAILY@1700 BERNARDA Aspirin (Aspirin Enteric Coated 81 Mg Tablet.) 81 mg PO DAILY [facility] Last Admin: 03/08/24 08:40 Dose: 81 mg Atorvastatin Calcium (Atorvastatin Calcium 40 Mg Tablet) 40 mg PO BEDTIME [facility] Last Admin: 04/17/23 21:17 Dose: 40 mg Benztropine Mesylate (Benztropine Mesylate 1 Mg Tablet) 1 mg PO DAILY [facility] Last Admin: 04/17/23 08:40 Dose: 1 mg Carbamazepine (Carbamazepine Er 200 Mg Tab.Er.12h) 400 mg PO BEDTIME [facility] Last Admin: 04/17/23 21:17 Dose: 400 mg Cyanocobalamin (Cyanocobalamin (Vitamin B-12) 100 Mcg Tablet) 100 mcg PO DAILY [facility] Last Admin: 04/17/23 08:37 Dose: 100 mcg Dextrose (Dextrose 50 % 25 Gm/50 Ml Syringe) 25 gm IVPUSH Q15M PRN; Protocol PRN Reason: per Hypoglycemia Standing Ord. Divalproex Sodium (Divalproex Sodium 250 Mg Tablet.Dr) 250 mg PO BID [facility] Last Admin: 04/17/23 21:18 Dose: 250 mg Furosemide (Furosemide 20 Mg Tablet) 20 mg PO DAILY [facility]; Protocol Last Admin: 04/17/23 08:38 Dose: 20 mg Glucose (Glucose Gel 15 Gm Gel..Gram.) 15 gm PO Q15M PRN; Protocol PRN Reason: per Hypoglycemia Standing Ord. Hydroxyzine HCl (Hydroxyzine Hcl 25 Mg Tablet) 25 mg PO Q6H PRN PRN Reason: Anxiety Last Admin: 04/17/23 03:07 Dose: 25 mg Insulin Human Lispro (Insulin Lispro 100 Unit/Ml 3 Ml Vial) 0 unit SUBCUT QIDACHS [facility]; Protocol Last Admin: 04/17/23 21:12 Dose: Not Given Lorazepam (Lorazepam 1 Mg Tablet) 1 mg PO BEDTIME [facility] Last Admin: 04/17/23 21:18 Dose: 1 mg Lorazepam (Lorazepam 1 Mg Tablet) 1 mg PO BEDTIME PRN PRN Reason: Insomnia Last Admin: 04/12/23 23:40 Dose: 1 mg Magnesium Hydroxide (Milk Of Magnesia 30 Ml Oral.Susp) 30 ml PO DAILY PRN PRN Reason: Constipation Last Admin: 04/16/23 20:27 Dose: 30 ml Magnesium Oxide (Magnesium Oxide 400 Mg Tablet) 400 mg PO DAILY [facility] Last Admin: 04/17/23 08:38 Dose: 400 mg Metoprolol Succinate (Metoprolol Succinate Er 12.5 Mg Halftab.Er.24h) 12.5 mg PO DAILY [facility]; Protocol Last Admin: 04/17/23 08:39 Dose: 12.5 mg Pt Own (Trulicity 3 (Mg)) 3 mg SUBCUT Q7D [facility] Last Admin: 04/11/23 12:37 Dose: Not Given Ondansetron HCl (Ondansetron Odt 4 Mg Tab.Rapdis) 4 mg TRANSLINGU Q6H PRN PRN Reason: Nausea Last Admin: 04/14/23 08:30 Dose: 4 mg Paliperidone (Paliperidone Er 3 Mg Tab.Er.24) 3 mg PO DAILY [facility] Polyethylene Glycol (Polyethylene Glycol 3350 17 Gm Powd.Pack) 17 gm PO DAILY PRN PRN Reason: Constipation Last Admin: 03/30/23 13:46 Dose: 17 gm Quetiapine Fumarate (Quetiapine Fumarate 50 Mg Tablet) 50 mg PO BID PRN PRN Reason: becca, agitation Quetiapine Fumarate (Quetiapine Fumarate 50 Mg Tablet) 50 mg PO BEDTIME [facility] Last Admin: 04/17/23 21:19 Dose: Not Given Thyroid (Thyroid,Pork 30 Mg Tablet) 15 mg PO DAILY@0630 [facility] Last Admin: 04/17/23 06:26 Dose: 15 mg Vitamin D (Cholecalciferol (Vitamin D3) 10 Mcg Tablet) 10 mcg PO DAILY [facility] Last Admin: 04/17/23 08:40 Dose: 10 mcg Zolpidem Tartrate (Zolpidem Tartrate 5 Mg Tablet) 10 mg PO BEDTIME [facility] Last Admin: 04/17/23 21:18 Dose: 10 mg Allergies Allergies Allergy/AdvReac Type Severity Reaction Status Date / Time amoxicillin Allergy Unknown Unknown Uncoded 03/25/23 11:07 Pt states no food allergy Allergy Unknown Unknown Uncoded 03/25/23 11:07 Assessment & Plan Assessment & Plan (1) Bipolar affective disorder, manic, severe, with psychotic behavior: Status: Acute Code(s): F31.2 - Bipolar disorder, current episode manic severe with psychotic features Assessment and Plan: 04/12/23 ongoing becca but seems less labile and pressured today- more cooperative with medical care (2) PTSD (post-traumatic stress disorder): Status: Acute Code(s): F43.10 - Post-traumatic stress disorder, unspecified Plan 62 yo female, history of PTSD, Bipolar Disorder with Psychosis, self presents reporting she has stopped medications. She asks to go to [place], however, is willing to work with the team on M5 at this time. She has stopped meds and is willing to re-start. She has several requests regarding meds which were addressed, however, she will be making further requests as her treatment continues. At this time, she reports being controlled by Estefania Mosqueda in all aspects of her life. This has caused great fear and anxiety. Pt has written several pages regarding this issue and is willing to share these. During our meeting she presents with acute becca, feeling overwhelmed with being controlled and vulnerable. Attempted to offer support, structure, safety for pt today. She has been able to appear to move freely in milieu, sing, dance and appears to feel comfortable and safe while settling in. Plan: Re-establish regime, medical and psychiatric Abilify 5 mg daily- pt request this trial, reports effective history. Today, pt has had ambivalence about Miralax order, asking ~7 times to start and stop. As of this writing, she asks that we not put it on her list of meds. Full milieu Collateral contact Diagnostics as needed. 03/28: Continue current regimen and plans 03/29: Continue current regimen and plans. Increased Abilify to 10 mg and Ambien to 10 mg 03/30: Continue current plans and regimen 03/31: Will file Section 7 on 04/01. 04/02/23: DC Seroquel at HS Increase Trazodone to 75 mg HS. MR x1. Ceftin to stop 04/03. 04/03/23: Increase Abilify to 10 mg bid 04/04: Continue current management and treatment plan. 04/05: check Tegretol level in AM and consider titration based on level and consider titration of Abilify. 04/06: Pt declines Abilify titration at this time. TDN 04/08. 04/08: Section 7, HCP activation 04/09: Encourage treatment with [facility] 04/11/23 continues labile some struggle around diabetes care- 04/12/23 Hold off on Abilify injectable until clear whether or not Abilify will be helpful Abilify 15 mg twice a day morning and after late afternoon Seroquel at bedtime continue Tegretol 04/14/23 Abilify 15 bid seroquel hs encourage change to invega continues psychotic 04/15/23 Depakote 250 bid evaluate response to abilify 04/16/2023 Patient has had no clear response to Abilify floridly delusional early based thinking irritable preoccupied Reportedly had done well in the past on Invega does not wish to retry this discussed restarting therapeutic dose Seroquel which patient did eventually discontinue recently versus Vraylar for manic psychosis which she is agreeable to try 04/17/23 Depakote 250 bid invega po taper abilify Reason for continued inpatient stay Substantial Risk for: inability to function and rapid decompensation Time Spent With Patient Time: Total time managing care of this patient today ____ minutes.
[2023-04-18] MEDS: Thyroid,Pork 30 MG TABLET 15 MG PO (06:06)
[2023-04-18 08:27] VITALS: BP 120/61; PULSE 96; RESP 16; TEMP 36.4; O2SAT 96
[2023-04-18 08:55] LABS: Glucose, Whole Blood 121 mg/dL (60-115)
[2023-04-18] MEDS: amLODIPine Besylate 2.5 MG TABLET PO (09:10)
[2023-04-18] MEDS: Furosemide 20 MG TABLET PO (09:10)
[2023-04-18] MEDS: Divalproex Sodium 250 MG TABLET.DR PO ×2 (09:10→19:53)
[2023-04-18] MEDS: Cholecalciferol (Vitamin D3) 10 MCG TABLET PO (09:10)
[2023-04-18] MEDS: Benztropine Mesylate 1 MG TABLET PO (09:10)
[2023-04-18] MEDS: Magnesium Oxide 400 MG TABLET PO (09:11)
[2023-04-18] MEDS: Metoprolol Succinate ER 12.5 MG HALFTAB.ER.24H PO (09:11)
[2023-04-18] MEDS: Cyanocobalamin (Vitamin B-12) 100 MCG TABLET PO (09:11)
[2023-04-18] MEDS: Aspirin Enteric Coated 81 MG TABLET.DR PO (09:13)
[2023-04-18] MEDS: Paliperidone ER 3 MG TAB.ER.24 PO (10:32)
--- NOTE | 2023-04-18 10:34 | HO.PSYCHPN ---
Subjective Subjective Date of Service: 04/18/23 Reason For Visit: Bipolar Disorder Interim History: Met with patient; discussed with team; reviewed chart Patient more organized than she has been in the past. Training And Development Officer mentioned this and patient agreed saying that her mind is not so racey... Earlier today she initially refused Invega but then decided to take it. She talked with quality analyst/technical writer saying she thought maybe she should be on Invega and that she should be on Latuda instead however she agreed to continue with Dr. Krueger's plan and did take the Invega and Depakote and said she would continue to do so. Patient expressed and nursing that she was afraid that if she took Invega she would end up on Invega Sustenna, the shot which he does not want. Starting Trulicity today. Mental Status Exam Mental Status Exam Narrative: Pt is alert and oriented; behavior is cooperative, friendly, hypomanic however more organized; patient is not in distress; dressed in casual attire, a little unkempt but overall adequately groomed; mood is described as not so racy affect more calm; eye contact appropriate; Speech more normal rate and much less pressured, though still verbose; normal volume; only mild psychomotor agitation; thought process is goal directed but still quite circumstantial as well; Thought content is on medication treatment; otherwise pertinent to relevant topics; not expressing any delusional ideations though likely still present; denies any SI/HI. Patients insight and judgment impaired but improving Diagnostics Vital Signs (24Hr): Vital Signs - 24 hr 04/17/23 21:15 04/18/23 08:27 Temperature 97.8 F 97.5 F Pulse Rate 101 H 96 Respiratory Rate 18 16 Blood Pressure 133/90 H 120/61 Pulse Oximetry 97 96 Oxygen Delivery Method Room Air Room Air BMI result Body Mass Index 36.4 Labs 04/02/23 08:21 03/25/23 11:34 Labs: Laboratory Results - last 48 hr 04/16/23 04/17/23 04/17/23 19:57 08:13 12:11 POC Glucose 140 H 110 124 H 04/17/23 04/18/23 17:34 08:06 POC Glucose 138 H 121 H Medications Medications Current Medications Acetaminophen (Acetaminophen 325 Mg Tablet) 650 mg PO Q6H PRN PRN Reason: Headache/Pain Mild Scale (1-3) Al Hydroxide/Mg Hydroxide (Magnesium Hydrox/Alum Hydrox 30 Ml Oral.Susp) 30 ml PO Q6H PRN PRN Reason: Heartburn/Nausea Amlodipine Besylate (Amlodipine Besylate 2.5 Mg Tablet) 2.5 mg PO DAILY [facility]; Protocol Last Admin: 04/18/23 09:10 Dose: 2.5 mg Aripiprazole (Aripiprazole 10 Mg Tablet) 10 mg PO DAILY@1700 BERNARDA Aspirin (Aspirin Enteric Coated 81 Mg Tablet.) 81 mg PO DAILY [facility] Last Admin: 04/18/23 09:13 Dose: 81 mg Atorvastatin Calcium (Atorvastatin Calcium 40 Mg Tablet) 40 mg PO BEDTIME [facility] Last Admin: 04/17/23 21:17 Dose: 40 mg Benztropine Mesylate (Benztropine Mesylate 1 Mg Tablet) 1 mg PO DAILY [facility] Last Admin: 04/18/23 09:10 Dose: 1 mg Carbamazepine (Carbamazepine Er 200 Mg Tab.Er.12h) 400 mg PO BEDTIME [facility] Last Admin: 04/17/23 21:17 Dose: 400 mg Cyanocobalamin (Cyanocobalamin (Vitamin B-12) 100 Mcg Tablet) 100 mcg PO DAILY [facility] Last Admin: 04/18/23 09:11 Dose: 100 mcg Dextrose (Dextrose 50 % 25 Gm/50 Ml Syringe) 25 gm IVPUSH Q15M PRN; Protocol PRN Reason: per Hypoglycemia Standing Ord. Divalproex Sodium (Divalproex Sodium 250 Mg Tablet.) 250 mg PO BID [facility] Last Admin: 04/18/23 09:10 Dose: 250 mg Furosemide (Furosemide 20 Mg Tablet) 20 mg PO DAILY [facility]; Protocol Last Admin: 04/18/23 09:10 Dose: 20 mg Glucose (Glucose Gel 15 Gm Gel..Gram.) 15 gm PO Q15M PRN; Protocol PRN Reason: per Hypoglycemia Standing Ord. Hydroxyzine HCl (Hydroxyzine Hcl 25 Mg Tablet) 25 mg PO Q6H PRN PRN Reason: Anxiety Last Admin: 04/17/23 03:07 Dose: 25 mg Insulin Human Lispro (Insulin Lispro 100 Unit/Ml 3 Ml Vial) 0 unit SUBCUT QIDACHS [facility]; Protocol Last Admin: 04/18/23 09:13 Dose: Not Given Lorazepam (Lorazepam 1 Mg Tablet) 1 mg PO BEDTIME [facility] Last Admin: 04/17/23 21:18 Dose: 1 mg Lorazepam (Lorazepam 1 Mg Tablet) 1 mg PO BEDTIME PRN PRN Reason: Insomnia Last Admin: 04/12/23 23:40 Dose: 1 mg Magnesium Hydroxide (Milk Of Magnesia 30 Ml Oral.Susp) 30 ml PO DAILY PRN PRN Reason: Constipation Last Admin: 04/16/23 20:27 Dose: 30 ml Magnesium Oxide (Magnesium Oxide 400 Mg Tablet) 400 mg PO DAILY [facility] Last Admin: 04/18/23 09:11 Dose: 400 mg Metoprolol Succinate (Metoprolol Succinate Er 12.5 Mg Halftab.Er.24h) 12.5 mg PO DAILY [facility]; Protocol Last Admin: 04/18/23 09:11 Dose: 12.5 mg Pt Own (Trulicity 3 (Mg)) 3 mg SUBCUT Q7D [facility] Last Admin: 04/11/23 12:37 Dose: Not Given Ondansetron HCl (Ondansetron Odt 4 Mg Tab.Rapdis) 4 mg TRANSLINGU Q6H PRN PRN Reason: Nausea Last Admin: 04/14/23 08:30 Dose: 4 mg Paliperidone (Paliperidone Er 3 Mg Tab.Er.24) 3 mg PO DAILY [facility] Last Admin: 04/18/23 10:32 Dose: 3 mg Polyethylene Glycol (Polyethylene Glycol 3350 17 Gm Powd.Pack) 17 gm PO DAILY PRN PRN Reason: Constipation Last Admin: 03/30/23 13:46 Dose: 17 gm Quetiapine Fumarate (Quetiapine Fumarate 50 Mg Tablet) 50 mg PO BID PRN PRN Reason: becca, agitation Quetiapine Fumarate (Quetiapine Fumarate 50 Mg Tablet) 50 mg PO BEDTIME [facility] Last Admin: 04/17/23 21:19 Dose: Not Given Thyroid (Thyroid,Pork 30 Mg Tablet) 15 mg PO DAILY@0630 [facility] Last Admin: 04/18/23 06:06 Dose: 15 mg Vitamin D (Cholecalciferol (Vitamin D3) 10 Mcg Tablet) 10 mcg PO DAILY [facility] Last Admin: 04/18/23 09:10 Dose: 10 mcg Zolpidem Tartrate (Zolpidem Tartrate 5 Mg Tablet) 10 mg PO BEDTIME [facility] Last Admin: 04/17/23 21:18 Dose: 10 mg Allergies Allergies Allergy/AdvReac Type Severity Reaction Status Date / Time amoxicillin Allergy Unknown Unknown Uncoded 02/14/24 11:07 Pt states no food allergy Allergy Unknown Unknown Uncoded 03/25/23 11:07 Assessment & Plan Assessment & Plan (1) Bipolar affective disorder, manic, severe, with psychotic behavior: Status: Acute Code(s): F31.2 - Bipolar disorder, current episode manic severe with psychotic features Assessment and Plan: 04/12/23 ongoing becca but seems less labile and pressured today- more cooperative with medical care (2) PTSD (post-traumatic stress disorder): Status: Acute Code(s): F43.10 - Post-traumatic stress disorder, unspecified Plan 62 yo female, history of PTSD, Bipolar Disorder with Psychosis, self presents reporting she has stopped medications. She asks to go to [place], however, is willing to work with the team on M5 at this time. She has stopped meds and is willing to re-start. She has several requests regarding meds which were addressed, however, she will be making further requests as her treatment continues. At this time, she reports being controlled by Estefania Mosqueda in all aspects of her life. This has caused great fear and anxiety. Pt has written several pages regarding this issue and is willing to share these. During our meeting she presents with acute becca, feeling overwhelmed with being controlled and vulnerable. Attempted to offer support, structure, safety for pt today. She has been able to appear to move freely in milieu, sing, dance and appears to feel comfortable and safe while settling in. Plan: Re-establish regime, medical and psychiatric Abilify 5 mg daily- pt request this trial, reports effective history. Today, pt has had ambivalence about Miralax order, asking ~7 times to start and stop. As of this writing, she asks that we not put it on her list of meds. Full milieu Collateral contact Diagnostics as needed. 03/28: Continue current regimen and plans 03/29: Continue current regimen and plans. Increased Abilify to 10 mg and Ambien to 10 mg 03/30: Continue current plans and regimen 03/31: Will file Section 7 on 04/01. 04/02/23: DC Seroquel at HS Increase Trazodone to 75 mg HS. MR x1. Ceftin to stop 04/03. 04/03/23: Increase Abilify to 10 mg bid 04/04: Continue current management and treatment plan. 04/05: check Tegretol level in AM and consider titration based on level and consider titration of Abilify. 04/06: Pt declines Abilify titration at this time. TDN 04/08. 04/08: Section 7, HCP activation 04/09: Encourage treatment with [facility] 04/11/23 continues labile some struggle around diabetes care- 04/12/23 Hold off on Abilify injectable until clear whether or not Abilify will be helpful Abilify 15 mg twice a day morning and after late afternoon Seroquel at bedtime continue Tegretol 04/14/23 Abilify 15 bid seroquel hs encourage change to invega continues psychotic 04/15/23 Depakote 250 bid evaluate response to abilify 04/16/2023 Patient has had no clear response to Abilify floridly delusional early based thinking irritable preoccupied Reportedly had done well in the past on Invega does not wish to retry this discussed restarting therapeutic dose Seroquel which patient did eventually discontinue recently versus Vraylar for manic psychosis which she is agreeable to try 04/17/23 Depakote 250 bid invega po taper abilify 04/17 Patient more organized than she has been in the past. Training And Development Officer mentioned this and patient agreed saying that her mind is not so racey... Patient actually reading a book today as well Earlier today she initially refused Invega but then decided to take it. She talked with quality analyst/technical writer saying she thought maybe she should be on Invega and that she should be on Latuda instead however she agreed to continue with Dr. Krueger's plan and did take the Invega and Depakote and said she would continue to do so. Patient expressed and nursing that she was afraid that if she took Invega she would end up on Invega Sustenna, the shot which he does not want. Continue Depakote 250 mg b.i.d. Continue Invega Starting Trulicity today. Will DC POC and insulin sliding scale; patient has not had blood glucose over 160 despite 4 readings a day and always refuses insulin anyway. Patient educated on: diagnosis and medication risk/benefits Informed Consent: understands, does not understand and further education needed Reason for continued inpatient stay Substantial Risk for: inability to function and rapid decompensation Time Spent With Patient Time: Total time managing care of this patient today ____ minutes.
[2023-04-18 17:34] VITALS: BP 155/77; PULSE 104; RESP 16; TEMP 36.5; O2SAT 95
[2023-04-18] MEDS: ARIPiprazole 10 MG TABLET PO (17:48)
[2023-04-18] MEDS: carBAMazepine ER 200 MG TAB.ER.12H 400 MG PO (19:53)
[2023-04-18] MEDS: Atorvastatin Calcium 40 MG TABLET PO (19:54)
[2023-04-18] MEDS: LORazepam 1 MG TABLET PO (19:54)
[2023-04-18] MEDS: Zolpidem Tartrate 5 MG TABLET 10 MG PO (21:22)
[2023-04-19] MEDS: Thyroid,Pork 30 MG TABLET 15 MG PO (06:01)
[2023-04-19 07:35] LABS: MANUAL DIFF FLAG NO
[2023-04-19 07:41] LABS: Basophils Percent Auto 0.4 % (0-2); Eosinophils Absolute Auto 0.2 X10*3/uL (0.0-0.4); Eosinophils Percent Auto 1.6 % (0-4); Hematocrit 41.2 % (37.0-47.0); Hemoglobin 13.5 g/dl (12.0-16.0); Imm Gran Abs Auto 0.07 X10*3/uL (0.00-0.03); Imm Gran Pct Auto 0.6 % (0.0-0.4); Lymphocytes Absolute Auto 3.8 X10*3/uL (1.2-4.9); Lymphocytes Percent Auto 34.3 % (20-40); Mean Corpuscular HGB Conc 32.8 g/dl (31.0-35.0); Mean Corpuscular Hemoglobin 31.3 pg (27.0-33.0); Mean Corpuscular Volume 95.6 fL (80.0-98.0); Monocytes Absolute Auto 0.8 X10*3/uL (0.1-1.2); Monocytes Percent Auto 6.8 % (2-11); Neutrophils Absolute Auto 6.3 x10*3/uL (2.0-8.3); Neutrophils Percent Auto 56.3 % (45-73); Platelet Count 211 X10*3/uL (160-400); Red Blood Count 4.31 X10*6/uL (4.20-5.50); Red Cell Distribution Width 13.2 % (11.0-16.0); White Blood Count 11.1 X10*3/uL (4.8-10.8)
[2023-04-19 08:01] LABS: Carbamazepine Tegretol 7.6 mcg/mL (5.0-12.0)
[2023-04-19 08:14] LABS: Alanine Aminotransferase 24 U/L (0-31); Albumin Level 4.2 g/dL (3.5-5.0); Alkaline Phosphatase 82 U/L (39-117); Anion Gap 15 (12-20); Aspartate Amino Transferase 16 U/L (5-31); Bilirubin Total 0.3 mg/dL (0.0-1.0); Blood Urea Nitrogen 14 mg/dL (9-16); Calcium 10.2 mg/dL (8.4-10.2); Carbon Dioxide 29 mmol/L (22-29); Chloride 103 mmol/L (96-108); Creatinine Clr Calc Pharmacy 94.6; Estimated Glomerular Filt Rate > 60; Glucose Random 112 mg/dL (60-115); Potassium 4.5 mmol/L (3.3-5.1); Sodium 142 mmol/L (135-145); Total Protein 7.1 g/dL (6.5-8.0)
[2023-04-19] MEDS: Ondansetron ODT 4 MG TAB.RAPDIS TRANSLINGU (08:36)
[2023-04-19 09:04] VITALS: BP 140/72; PULSE 101; RESP 16; TEMP 36.2; O2SAT 95
[2023-04-19] MEDS: Aspirin Enteric Coated 81 MG TABLET.DR PO (09:21)
[2023-04-19] MEDS: Metoprolol Succinate ER 12.5 MG HALFTAB.ER.24H PO (09:21)
[2023-04-19] MEDS: Cyanocobalamin (Vitamin B-12) 100 MCG TABLET PO (09:21)
[2023-04-19] MEDS: Cholecalciferol (Vitamin D3) 10 MCG TABLET PO (09:22)
[2023-04-19] MEDS: amLODIPine Besylate 2.5 MG TABLET PO (09:22)
[2023-04-19] MEDS: Magnesium Oxide 400 MG TABLET PO (09:22)
[2023-04-19] MEDS: Benztropine Mesylate 1 MG TABLET PO (09:22)
[2023-04-19] MEDS: Furosemide 20 MG TABLET PO (09:22)
[2023-04-19] MEDS: Divalproex Sodium 250 MG TABLET.DR PO ×2 (09:22→21:16)
[2023-04-19] MEDS: Paliperidone ER 3 MG TAB.ER.24 PO (09:23)
--- NOTE | 2023-04-19 11:05 | HO.PSYCHPN ---
Subjective Subjective Date of Service: 04/19/23 Reason For Visit: Bipolar Disorder Interim History: met with patient; discussed with team Today Patient with a little more pressured speech and expressing paranoid delusions than yesterday; has been refusing Seroquel at bedtime. Today had a long list of things that she wanted to communicate some mildly relevant others not; she talked about the [facility] a following her and how she has numerous documents on her laptop proving this, where should she submit these documents etc. Reviewed labs with patient and tegretol level therapeutic associated labs WNL Mental Status Exam Mental Status Exam Narrative: Pt is alert and oriented; behavior is cooperative, friendly, hypomanic, a little more organized; patient is not in distress; dressed in casual attire, a little unkempt but overall adequately groomed; mood is described as ok affect more calm; eye contact appropriate; Speech a little more pressured today and remains verbose;; normal volume; mild psychomotor agitation; thought process can be goal directed but still very circumstantial and tangential at times; Thought content is on paranoid delusions and medication treatment; denies any SI/HI. Patients insight and judgment impaired but with some mild improvement Diagnostics Vital Signs (24Hr): Vital Signs - 24 hr 04/18/23 17:34 04/19/23 09:04 Temperature 97.7 F 97.2 F Pulse Rate 104 H 101 H Respiratory Rate 16 16 Blood Pressure 155/77 H 140/72 H Pulse Oximetry 95 95 Oxygen Delivery Method Room Air Room Air BMI result Body Mass Index 36.4 Labs 04/19/23 07:30 04/19/23 07:30 Labs: Laboratory Results - last 48 hr 04/17/23 04/17/23 04/18/23 12:11 17:34 08:06 WBC RBC Hgb Hct MCV MCH MCHC RDW Plt Count MPV Immature Gran % (Auto) Neut % (Auto) Lymph % (Auto) [place] % (Auto) Eos % (Auto) Baso % (Auto) Lymph # (Auto) [place] # (Auto) Eos # (Auto) Baso # (Auto) Abs Immat Gran (auto) Absolute Neuts (auto) Absolute Nucleated RBC Nucleated RBC % (auto) Sodium Potassium Chloride Carbon Dioxide Anion Gap BUN Creatinine Estim Creat Clear Calc Estimated GFR POC Glucose 124 H 138 H 121 H Random Glucose Calcium Total Bilirubin AST ALT Alkaline Phosphatase Total Protein Albumin Carbamazepine 04/19/23 07:30 WBC 11.1 H RBC 4.31 Hgb 13.5 Hct 41.2 MCV 95.6 MCH 31.3 MCHC 32.8 RDW 13.2 Plt Count 211 MPV 10.0 Immature Gran % (Auto) 0.6 H Neut % (Auto) 56.3 Lymph % (Auto) 34.3 [place] % (Auto) 6.8 Eos % (Auto) 1.6 Baso % (Auto) 0.4 Lymph # (Auto) 3.8 [place] # (Auto) 0.8 Eos # (Auto) 0.2 Baso # (Auto) 0.0 Abs Immat Gran (auto) 0.07 H Absolute Neuts (auto) 6.3 Absolute Nucleated RBC 0.000 Nucleated RBC % (auto) 0.0 Sodium 142 Potassium 4.5 Chloride 103 Carbon Dioxide 29 Anion Gap 15 BUN 14 Creatinine 0.75 Estim Creat Clear Calc 94.6 Estimated GFR > 60 POC Glucose Random Glucose 112 Calcium 10.2 D Total Bilirubin 0.3 AST 16 ALT 24 Alkaline Phosphatase 82 Total Protein 7.1 Albumin 4.2 Carbamazepine 7.6 Medications Medications Current Medications Acetaminophen (Acetaminophen 325 Mg Tablet) 650 mg PO Q6H PRN PRN Reason: Headache/Pain Mild Scale (1-3) Al Hydroxide/Mg Hydroxide (Magnesium Hydrox/Alum Hydrox 30 Ml Oral.Susp) 30 ml PO Q6H PRN PRN Reason: Heartburn/Nausea Amlodipine Besylate (Amlodipine Besylate 2.5 Mg Tablet) 2.5 mg PO DAILY [facility]; Protocol Last Admin: 04/19/23 09:22 Dose: 2.5 mg Aripiprazole (Aripiprazole 10 Mg Tablet) 10 mg PO DAILY@1700 [facility] Last Admin: 04/18/23 17:48 Dose: 10 mg Aspirin (Aspirin Enteric Coated 81 Mg Tablet.Dr) 81 mg PO DAILY [facility] Last Admin: 04/19/23 09:21 Dose: 81 mg Atorvastatin Calcium (Atorvastatin Calcium 40 Mg Tablet) 40 mg PO BEDTIME [facility] Last Admin: 04/18/23 19:54 Dose: 40 mg Benztropine Mesylate (Benztropine Mesylate 1 Mg Tablet) 1 mg PO DAILY [facility] Last Admin: 04/19/23 09:22 Dose: 1 mg Carbamazepine (Carbamazepine Er 200 Mg Tab.Er.12h) 400 mg PO BEDTIME [facility] Last Admin: 04/18/23 19:53 Dose: 400 mg Cyanocobalamin (Cyanocobalamin (Vitamin B-12) 100 Mcg Tablet) 100 mcg PO DAILY [facility] Last Admin: 04/19/23 09:21 Dose: 100 mcg Divalproex Sodium (Divalproex Sodium 250 Mg Tablet.Dr) 250 mg PO BID [facility] Last Admin: 04/19/23 09:22 Dose: 250 mg Furosemide (Furosemide 20 Mg Tablet) 20 mg PO DAILY [facility]; Protocol Last Admin: 04/19/23 09:22 Dose: 20 mg Hydroxyzine HCl (Hydroxyzine Hcl 25 Mg Tablet) 25 mg PO Q6H PRN PRN Reason: Anxiety Last Admin: 04/17/23 03:07 Dose: 25 mg Lorazepam (Lorazepam 1 Mg Tablet) 1 mg PO BEDTIME [facility] Last Admin: 04/18/23 19:54 Dose: 1 mg Lorazepam (Lorazepam 1 Mg Tablet) 1 mg PO BEDTIME PRN PRN Reason: Insomnia Last Admin: 04/12/23 23:40 Dose: 1 mg Magnesium Hydroxide (Milk Of Magnesia 30 Ml Oral.Susp) 30 ml PO DAILY PRN PRN Reason: Constipation Last Admin: 04/16/23 20:27 Dose: 30 ml Magnesium Oxide (Magnesium Oxide 400 Mg Tablet) 400 mg PO DAILY [facility] Last Admin: 04/19/23 09:22 Dose: 400 mg Metoprolol Succinate (Metoprolol Succinate Er 12.5 Mg Halftab.Er.24h) 12.5 mg PO DAILY [facility]; Protocol Last Admin: 04/19/23 09:21 Dose: 12.5 mg Pt Own (Trulicity 3 (Mg)) 3 mg SUBCUT Q7D [facility] Last Admin: 04/18/23 11:52 Dose: 3 mg Ondansetron HCl (Ondansetron Odt 4 Mg Tab.Rapdis) 4 mg TRANSLINGU Q6H PRN PRN Reason: Nausea Last Admin: 04/19/23 08:36 Dose: 4 mg Paliperidone (Paliperidone Er 3 Mg Tab.Er.24) 3 mg PO DAILY [facility] Last Admin: 04/19/23 09:23 Dose: 3 mg Polyethylene Glycol (Polyethylene Glycol 3350 17 Gm Powd.Pack) 17 gm PO DAILY PRN PRN Reason: Constipation Last Admin: 03/30/23 13:46 Dose: 17 gm Quetiapine Fumarate (Quetiapine Fumarate 50 Mg Tablet) 50 mg PO BID PRN PRN Reason: becca, agitation Quetiapine Fumarate (Quetiapine Fumarate 50 Mg Tablet) 50 mg PO BEDTIME [facility] Last Admin: 04/18/23 22:43 Dose: Not Given Thyroid (Thyroid,Pork 30 Mg Tablet) 15 mg PO DAILY@0630 [facility] Last Admin: 04/19/23 06:01 Dose: 15 mg Vitamin D (Cholecalciferol (Vitamin D3) 10 Mcg Tablet) 10 mcg PO DAILY [facility] Last Admin: 04/19/23 09:22 Dose: 10 mcg Zolpidem Tartrate (Zolpidem Tartrate 5 Mg Tablet) 10 mg PO BEDTIME [facility] Last Admin: 04/18/23 21:22 Dose: 10 mg Allergies Allergies Allergy/AdvReac Type Severity Reaction Status Date / Time amoxicillin Allergy Unknown Unknown Uncoded 03/25/23 11:07 Pt states no food allergy Allergy Unknown Unknown Uncoded 03/25/23 11:07 Assessment & Plan Assessment & Plan (1) Bipolar affective disorder, manic, severe, with psychotic behavior: Status: Acute Code(s): F31.2 - Bipolar disorder, current episode manic severe with psychotic features Assessment and Plan: 04/12/23 ongoing becca but seems less labile and pressured today- more cooperative with medical care (2) PTSD (post-traumatic stress disorder): Status: Acute Code(s): F43.10 - Post-traumatic stress disorder, unspecified Plan 62 yo female, history of PTSD, Bipolar Disorder with Psychosis, self presents reporting she has stopped medications. She asks to go to [place], however, is willing to work with the team on M5 at this time. She has stopped meds and is willing to re-start. She has several requests regarding meds which were addressed, however, she will be making further requests as her treatment continues. At this time, she reports being controlled by Estefania Mosqueda in all aspects of her life. This has caused great fear and anxiety. Pt has written several pages regarding this issue and is willing to share these. During our meeting she presents with acute becca, feeling overwhelmed with being controlled and vulnerable. Attempted to offer support, structure, safety for pt today. She has been able to appear to move freely in milieu, sing, dance and appears to feel comfortable and safe while settling in. Plan: Re-establish regime, medical and psychiatric Abilify 5 mg daily- pt request this trial, reports effective history. Today, pt has had ambivalence about Miralax order, asking ~7 times to start and stop. As of this writing, she asks that we not put it on her list of meds. Full milieu Collateral contact Diagnostics as needed. 03/28: Continue current regimen and plans 03/29: Continue current regimen and plans. Increased Abilify to 10 mg and Ambien to 10 mg 03/30: Continue current plans and regimen 03/31: Will file Section 7 on 04/01. 04/02/23: DC Seroquel at HS Increase Trazodone to 75 mg HS. MR x1. Ceftin to stop 04/03. 04/03/23: Increase Abilify to 10 mg bid 04/04: Continue current management and treatment plan. 04/05: check Tegretol level in AM and consider titration based on level and consider titration of Abilify. 04/06: Pt declines Abilify titration at this time. TDN 04/08. 04/08: Section 7, HCP activation 04/09: Encourage treatment with [facility] 04/11/23 continues labile some struggle around diabetes care- 04/12/23 Hold off on Abilify injectable until clear whether or not Abilify will be helpful Abilify 15 mg twice a day morning and after late afternoon Seroquel at bedtime continue Tegretol 04/14/23 Abilify 15 bid seroquel hs encourage change to invega continues psychotic 04/15/23 Depakote 250 bid evaluate response to abilify 04/16/2023 Patient has had no clear response to Abilify floridly delusional early based thinking irritable preoccupied Reportedly had done well in the past on Invega does not wish to retry this discussed restarting therapeutic dose Seroquel which patient did eventually discontinue recently versus Vraylar for manic psychosis which she is agreeable to try 04/17/23 Depakote 250 bid invega po taper abilify 04/17 Patient more organized than she has been in the past. User Support Analyst mentioned this and patient agreed saying that her mind is not so racey... Patient actually reading a book today as well Earlier today she initially refused Invega but then decided to take it. She talked with health technical writer saying she thought maybe she should be on Invega and that she should be on Latuda instead however she agreed to continue with Dr. Krueger's plan and did take the Invega and Depakote and said she would continue to do so. Patient expressed and nursing that she was afraid that if she took Invega she would end up on Invega Sustenna, the shot which he does not want. -Continue Depakote 250 mg b.i.d. -Continue Invega -Starting Trulicity today. -Will DC POC qid (but leave a daily POC at patients request); will dc insulin sliding scale; patient has not had blood glucose over 160 despite 4 readings a day and always refuses insulin anyway. 04/18 Today Patient with a little more pressured speech and expressing paranoid delusions than yesterday; has been refusing Seroquel at bedtime. Today had a long list of things that she wanted to communicate some mildly relevant others not; she talked about the [facility] a following her and how she has numerous documents on her laptop proving this, where should she submit these documents etc. -tegretol level therapeutic -associated labs WNL Patient educated on: diagnosis and medication risk/benefits Informed Consent: understands, does not understand and further education needed Reason for continued inpatient stay Substantial Risk for: inability to function Time Spent With Patient Time: Total time managing care of this patient today ____ minutes.
[2023-04-19] MEDS: ARIPiprazole 10 MG TABLET PO (17:15)
[2023-04-19 18:47] VITALS: BP 128/74; PULSE 110; RESP 18; TEMP 36.5; O2SAT 98
[2023-04-19] MEDS: carBAMazepine ER 200 MG TAB.ER.12H 400 MG PO (21:16)
[2023-04-19] MEDS: Atorvastatin Calcium 40 MG TABLET PO (21:16)
[2023-04-19] MEDS: LORazepam 1 MG TABLET PO (21:16)
[2023-04-19] MEDS: Zolpidem Tartrate 5 MG TABLET 10 MG PO (21:36)
[2023-04-20] MEDS: Thyroid,Pork 30 MG TABLET 15 MG PO (06:06)
[2023-04-20 07:55] LABS: Glucose, Whole Blood 163 mg/dL (60-115)
[2023-04-20] MEDS: Milk of Magnesia 30 ML ORAL.SUSP PO (08:19)
[2023-04-20] MEDS: Ondansetron ODT 4 MG TAB.RAPDIS TRANSLINGU (08:19)
[2023-04-20 08:45] VITALS: BP 140/65; PULSE 110; RESP 18; TEMP 36.8; O2SAT 94
[2023-04-20] MEDS: Furosemide 20 MG TABLET PO (10:11)
[2023-04-20] MEDS: Metoprolol Succinate ER 12.5 MG HALFTAB.ER.24H PO (10:11)
[2023-04-20] MEDS: Paliperidone ER 3 MG TAB.ER.24 PO (10:11)
[2023-04-20] MEDS: Divalproex Sodium 250 MG TABLET.DR PO ×2 (10:11→20:09)
[2023-04-20] MEDS: Magnesium Oxide 400 MG TABLET PO (10:11)
[2023-04-20] MEDS: amLODIPine Besylate 2.5 MG TABLET PO (10:12)
[2023-04-20] MEDS: Cyanocobalamin (Vitamin B-12) 100 MCG TABLET PO (10:12)
[2023-04-20] MEDS: Cholecalciferol (Vitamin D3) 10 MCG TABLET PO (10:12)
[2023-04-20] MEDS: Benztropine Mesylate 1 MG TABLET PO (10:12)
[2023-04-20] MEDS: Aspirin Enteric Coated 81 MG TABLET.DR PO (10:12)
[2023-04-20] MEDS: Atorvastatin Calcium 40 MG TABLET PO (20:09)
[2023-04-20] MEDS: LORazepam 1 MG TABLET PO (20:09)
[2023-04-20] MEDS: Zolpidem Tartrate 5 MG TABLET 10 MG PO (20:09)
[2023-04-20] MEDS: QUEtiapine Fumarate 50 MG TABLET PO (20:10)
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
[2023-04-20 20:40] VITALS: BP 130/71; PULSE 107; RESP 18; TEMP 36.2; O2SAT 95
[2023-04-21] MEDS: Thyroid,Pork 30 MG TABLET 15 MG PO (05:59)
[2023-04-21 07:50] VITALS: BP 100/60; PULSE 97; RESP 16; TEMP 36.6; O2SAT 95
[2023-04-21] MEDS: Cholecalciferol (Vitamin D3) 10 MCG TABLET PO (07:54)
[2023-04-21] MEDS: Metoprolol Succinate ER 12.5 MG HALFTAB.ER.24H PO (07:54)
[2023-04-21] MEDS: Aspirin Enteric Coated 81 MG TABLET.DR PO (07:55)
[2023-04-21] MEDS: Magnesium Oxide 400 MG TABLET PO (07:55)
[2023-04-21] MEDS: Divalproex Sodium 250 MG TABLET.DR PO ×2 (07:55→21:15)
[2023-04-21] MEDS: Furosemide 20 MG TABLET PO (07:55)
[2023-04-21] MEDS: Benztropine Mesylate 1 MG TABLET PO (07:55)
[2023-04-21] MEDS: amLODIPine Besylate 2.5 MG TABLET PO (07:56)
[2023-04-21] MEDS: Cyanocobalamin (Vitamin B-12) 100 MCG TABLET PO (07:56)
[2023-04-21 07:58] LABS: Glucose, Whole Blood 136 mg/dL (60-115)
[2023-04-21 10:13] LABS: Influenza A PCR POSITIVE (Negative); Influenza B PCR NEGATIVE (Negative); Resp Syncy Virus RNA Qual PCR NEGATIVE (Negative); SARS COV2 PCR INHOUSE NEGATIVE (Negative)
[2023-04-21] MEDS: Magnesium Hydrox/Alum Hydrox 30 ML ORAL.SUSP PO (15:11)
--- NOTE | 2023-04-21 16:18 | P.PNPSI_ITS ---
Subjective Subjective Date of Service: 04/21/23 Reason For Visit: Bipolar Disorder manic psychosis Subjective Notes: Section 7 Guardianship: No Medical Problems Affecting Mental Status: No Interim History: Pt has been pleasant but becomes agitated paranoid stating records were changed i didnt take medications in chart pt became increasingly agitated began to talk about paranoid conspiracies with different people and that she has reported these , has been refusing invega seems confused re medication why she has not stabilized seemed to reject idea of upcoming civil commitment hearing . 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) Delusions: Paranoid Ideation Thought Process: Rumination Thought Content: positive for Tangential, positive for Disorganized, negative for Suicidal Ideation or negative for Homicidal Ideation Depressive Symptoms: Increased Anxiety and Increased Irritability Judgement: Poor Judgement and Insight: difficulty accepting full diagnosis becomes agitated with paranoid concerns perseverative re medication elaboraye circumstantial Diagnostics Vital Signs (24Hr): Vital Signs - 24 hr 04/20/23 20:40 04/21/23 07:50 Temperature 97.2 F 97.8 F Pulse Rate 107 H 97 Respiratory Rate 18 16 Blood Pressure 130/71 100/60 Pulse Oximetry 95 95 Oxygen Delivery Method Room Air Room Air BMI result Body Mass Index 36.4 Labs 04/19/23 07:30 04/19/23 07:30 Labs: Laboratory Results - last 48 hr 04/20/23 04/21/23 04/21/23 07:45 07:54 09:00 POC Glucose 163 H 136 H Influenza Type A (PCR) POSITIVE A Influenza Type B (PCR) NEGATIVE RSV RNA Qual (PCR) NEGATIVE SARS-CoV-2 RNA (RT-PCR) NEGATIVE Medications Medications Current Medications Acetaminophen (Acetaminophen 325 Mg Tablet) 650 mg PO Q6H PRN PRN Reason: Headache/Pain Mild Scale (1-3) Al Hydroxide/Mg Hydroxide (Magnesium Hydrox/Alum Hydrox 30 Ml Oral.Susp) 30 ml PO Q6H PRN PRN Reason: Heartburn/Nausea Last Admin: 04/21/23 15:11 Dose: 30 ml Amlodipine Besylate (Amlodipine Besylate 2.5 Mg Tablet) 2.5 mg PO DAILY [facility]; Protocol Last Admin: 04/21/23 07:56 Dose: 2.5 mg Aspirin (Aspirin Enteric Coated 81 Mg Tablet.Dr) 81 mg PO DAILY [facility] Last Admin: 04/21/23 07:55 Dose: 81 mg Atorvastatin Calcium (Atorvastatin Calcium 40 Mg Tablet) 40 mg PO BEDTIME [facility]CLUD[facility] Last Admin: 04/20/23 20:09 Dose: 40 mg Benztropine Mesylate (Benztropine Mesylate 1 Mg Tablet) 1 mg PO DAILY [facility] Last Admin: 04/21/23 07:55 Dose: 1 mg Carbamazepine (Carbamazepine Er 200 Mg Tab.Er.12h) 400 mg PO BEDTIME [facility] Last Admin: 04/20/23 20:10 Dose: Not Given Cyanocobalamin (Cyanocobalamin (Vitamin B-12) 100 Mcg Tablet) 100 mcg PO DAILY [facility] Last Admin: 04/21/23 07:56 Dose: 100 mcg Divalproex Sodium (Divalproex Sodium 250 Mg Tablet.) 250 mg PO BID COUNT [facility] Last Admin: 04/21/23 07:55 Dose: 250 mg Furosemide (Furosemide 20 Mg Tablet) 20 mg PO DAILY [facility]; Protocol Last Admin: 04/21/23 07:55 Dose: 20 mg Hydroxyzine HCl (Hydroxyzine Hcl 25 Mg Tablet) 25 mg PO Q6H PRN PRN Reason: Anxiety Last Admin: 04/17/23 03:07 Dose: 25 mg Lorazepam (Lorazepam 1 Mg Tablet) 1 mg PO BEDTIME [facility] Last Admin: 04/20/23 20:09 Dose: 1 mg Lorazepam (Lorazepam 1 Mg Tablet) 1 mg PO BEDTIME PRN PRN Reason: Insomnia Last Admin: 04/12/23 23:40 Dose: 1 mg Magnesium Hydroxide (Milk Of Magnesia 30 Ml Oral.Susp) 30 ml PO DAILY PRN PRN Reason: Constipation Last Admin: 04/20/23 08:19 Dose: 30 ml Magnesium Oxide (Magnesium Oxide 400 Mg Tablet) 400 mg PO DAILY [facility] Last Admin: 04/21/23 07:55 Dose: 400 mg Metoprolol Succinate (Metoprolol Succinate Er 12.5 Mg Halftab.Er.24h) 12.5 mg PO DAILY [facility]; Protocol Last Admin: 04/21/23 07:54 Dose: 12.5 mg Pt Own (Trulicity 3 (Mg)) 3 mg SUBCUT Q7D [facility]CLUD[facility] Last Admin: 04/18/23 11:52 Dose: 3 mg Ondansetron HCl (Ondansetron Odt 4 Mg Tab.Rapdis) 4 mg TRANSLINGU Q6H PRN PRN Reason: Nausea Last Admin: 04/20/23 08:19 Dose: 4 mg Oseltamivir Phosphate (Oseltamivir Phosphate 45 Mg Capsule) 45 mg PO BID [facility] Stop: 04/25/23 21:01 Paliperidone (Paliperidone Er 6 Mg Tab.Er.24) 6 mg PO DAILY COUNT [facility]CLUD[facility] Last Admin: 04/21/23 07:57 Dose: Not Given Polyethylene Glycol (Polyethylene Glycol 3350 17 Gm Powd.Pack) 17 gm PO DAILY PRN PRN Reason: Constipation Last Admin: 03/30/23 13:46 Dose: 17 gm Quetiapine Fumarate (Quetiapine Fumarate 50 Mg Tablet) 50 mg PO BID PRN PRN Reason: becca, agitation Quetiapine Fumarate (Quetiapine Fumarate 100 Mg Tablet) 100 mg PO BEDTIME [facility] Last Admin: 04/20/23 21:02 Dose: Not Given Thyroid (Thyroid,Pork 30 Mg Tablet) 15 mg PO DAILY@0630 [facility] Last Admin: 04/21/23 05:59 Dose: 15 mg Vitamin D (Cholecalciferol (Vitamin D3) 10 Mcg Tablet) 10 mcg PO DAILY COUNT [facility] Last Admin: 04/21/23 07:54 Dose: 10 mcg Allergies Allergies Allergy/AdvReac Type Severity Reaction Status Date / Time amoxicillin Allergy Unknown Unknown Uncoded 03/25/23 11:07 Pt states no food allergy Allergy Unknown Unknown Uncoded 03/25/23 11:07 Assessment & Plan Assessment & Plan (1) Bipolar affective disorder, manic, severe, with psychotic behavior: Status: Acute Code(s): F31.2 - Bipolar disorder, current episode manic severe with psychotic features Assessment and Plan: 04/12/23 ongoing becca but seems less labile and pressured today- more cooperative with medical care (2) PTSD (post-traumatic stress disorder): Status: Acute Code(s): F43.10 - Post-traumatic stress disorder, unspecified Plan 62 yo female, history of PTSD, Bipolar Disorder with Psychosis, self presents reporting she has stopped medications. She asks to go to [place], however, is willing to work with the team on M5 at this time. She has stopped meds and is willing to re-start. She has several requests regarding meds which were addressed, however, she will be making further requests as her treatment continues. At this time, she reports being controlled by Estefania Mosqueda in all aspects of her life. This has caused great fear and anxiety. Pt has written several pages regarding this issue and is willing to share these. During our meeting she presents with acute becca, feeling overwhelmed with being controlled and vulnerable. Attempted to offer support, structure, safety for pt today. She has been able to appear to move freely in milieu, sing, dance and appears to feel comfortable and safe while settling in. Plan: Re-establish regime, medical and psychiatric Abilify 5 mg daily- pt request this trial, reports effective history. Today, pt has had ambivalence about Miralax order, asking ~7 times to start and stop. As of this writing, she asks that we not put it on her list of meds. Full milieu Collateral contact Diagnostics as needed. 03/28: Continue current regimen and plans 03/29: Continue current regimen and plans. Increased Abilify to 10 mg and Ambien to 10 mg 03/30: Continue current plans and regimen 03/31: Will file Section 7 on 04/01. 04/02/23: DC Seroquel at HS Increase Trazodone to 75 mg HS. MR x1. Atul to stop 04/03. 04/03/23: Increase Abilify to 10 mg bid 04/04: Continue current management and treatment plan. 04/05: check Tegretol level in AM and consider titration based on level and consider titration of Abilify. 04/06: Pt declines Abilify titration at this time. TDN 04/08. 04/08: Section 7, HCP activation 04/09: Encourage treatment with [facility] 04/11/23 continues labile some struggle around diabetes care- 04/12/23 Hold off on Abilify injectable until clear whether or not Abilify will be helpful Abilify 15 mg twice a day morning and after late afternoon Seroquel at bedtime continue Tegretol 04/14/23 Abilify 15 bid seroquel hs encourage change to invega continues psychotic 04/15/23 Depakote 250 bid evaluate response to abilify 04/16/2023 Patient has had no clear response to Abilify floridly delusional early based thinking irritable preoccupied Reportedly had done well in the past on Invega does not wish to retry this discussed restarting therapeutic dose Seroquel which patient did eventually discontinue recently versus Vraylar for manic psychosis which she is agreeable to try 04/17/23 Depakote 250 bid invega po taper abilify 04/17 Patient more organized than she has been in the past. Grey Washer mentioned this and patient agreed saying that her mind is not so racey... Patient actually reading a book today as well Earlier today she initially refused Invega but then decided to take it. She talked with data analyst report writer saying she thought maybe she should be on Invega and that she should be on Latuda instead however she agreed to continue with Dr. Krueger's plan and did take the Invega and Depakote and said she would continue to do so. Patient expressed and nursing that she was afraid that if she took Invega she would end up on Invega Sustenna, the shot which he does not want. -Continue Depakote 250 mg b.i.d. -Continue Invega -Starting Trulicity today. -Will DC POC qid (but leave a daily POC at patients request); will dc insulin sliding scale; patient has not had blood glucose over 160 despite 4 readings a day and always refuses insulin anyway. 04/18 Today Patient with a little more pressured speech and expressing paranoid delusions than yesterday; has been refusing Seroquel at bedtime. Today had a long list of things that she wanted to communicate some mildly relevant others not; she talked about the [employer] a following her and how she has numerous documents on her laptop proving this, where should she submit these documents etc. -tegretol level therapeutic -associated labs WNL 04/20/23 Inc depakote as tolerated tegretol abilify not helpful inc invega 6 mg daily has pending civil commitment 04/21/23 Pt refusing invega would file for affirmed hcp will try and coordinate with hcp Reason for continued inpatient stay Substantial Risk for: inability to function, rapid decompensation and med/psych decompensation Time Spent With Patient Time: Total time managing care of this patient today ____ minutes.
[2023-04-21] MEDS: QUEtiapine Fumarate 100 MG TABLET PO (21:14)
[2023-04-21 21:15] VITALS: BP 170/77; PULSE 108; TEMP 36.7
[2023-04-21] MEDS: Atorvastatin Calcium 40 MG TABLET PO (21:15)
[2023-04-21] MEDS: LORazepam 1 MG TABLET PO (21:15)
[2023-04-21] MEDS: carBAMazepine ER 200 MG TAB.ER.12H 400 MG PO (21:15)
[2023-04-21] MEDS: Milk of Magnesia 30 ML ORAL.SUSP PO (21:19)
[2023-04-21] MEDS: traZODone HCL 100 MG TABLET PO (22:45)
[2023-04-22] MEDS: Thyroid,Pork 30 MG TABLET 15 MG PO (06:05)
[2023-04-22 07:59] VITALS: BP 135/70; PULSE 97; RESP 16; TEMP 36.4; O2SAT 94
[2023-04-22 08:08] LABS: Glucose, Whole Blood 129 mg/dL (60-115)
[2023-04-22] MEDS: amLODIPine Besylate 2.5 MG TABLET PO (08:45)
[2023-04-22] MEDS: Furosemide 20 MG TABLET PO (08:45)
[2023-04-22] MEDS: Magnesium Oxide 400 MG TABLET PO (08:45)
[2023-04-22] MEDS: Aspirin Enteric Coated 81 MG TABLET.DR PO (08:45)
[2023-04-22] MEDS: Benztropine Mesylate 1 MG TABLET PO (08:45)
[2023-04-22] MEDS: Cyanocobalamin (Vitamin B-12) 100 MCG TABLET PO (08:45)
[2023-04-22] MEDS: Metoprolol Succinate ER 12.5 MG HALFTAB.ER.24H PO (08:45)
[2023-04-22] MEDS: Cholecalciferol (Vitamin D3) 10 MCG TABLET PO (08:45)
--- NOTE | 2023-04-22 16:11 | P.PNPSI_ITS ---
Subjective Subjective Date of Service: 04/22/23 Reason For Visit: Bipolar Disorder manic psychosis Subjective Notes: Section 7 Healthcare Proxy: Yes (pending affirmation) Guardianship: No Medical Problems Affecting Mental Status: Yes (current uri sx) Interim History: Review of meds. Asks for chewable ASA, [place] Thyroid, no hydroxyzine, return of Ambien, return to Tegretol 200 mg a.m. 400 mg hs, decrease of Depakote to 250 mg daily. Attempted to discuss goal of stabilization with Daily. She continues to associate med changes to delusional content-government conspiring to harm her-certain individuals placing scanners in her brain to do her harm. Accepts support of her siblings, yet is disorganized in her requests from them and from team. 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) Delusions: Paranoid Ideation Thought Process: Rumination Thought Content: positive for Tangential, positive for Disorganized, negative for Suicidal Ideation or negative for Homicidal Ideation Depressive Symptoms: Increased Anxiety and Increased Irritability Judgement: Poor Diagnostics Vital Signs (24Hr): Vital Signs - 24 hr 04/21/23 21:15 04/22/23 07:59 Temperature 98.0 F 97.5 F Pulse Rate 108 H 97 Respiratory Rate 16 Blood Pressure 170/77 H 135/70 Pulse Oximetry 94 Oxygen Delivery Method Room Air BMI result Body Mass Index 36.4 Labs 04/19/23 07:30 04/19/23 07:30 Labs: Laboratory Results - last 48 hr 04/21/23 04/21/23 04/22/23 07:54 09:00 08:03 POC Glucose 136 H 129 H Influenza Type A (PCR) POSITIVE A Influenza Type B (PCR) NEGATIVE RSV RNA Qual (PCR) NEGATIVE SARS-CoV-2 RNA (RT-PCR) NEGATIVE Medications Medications Current Medications Acetaminophen (Acetaminophen 325 Mg Tablet) 650 mg PO Q6H PRN PRN Reason: Headache/Pain Mild Scale (1-3) Al Hydroxide/Mg Hydroxide (Magnesium Hydrox/Alum Hydrox 30 Ml Oral.Susp) 30 ml PO Q6H PRN PRN Reason: Heartburn/Nausea Last Admin: 04/21/23 15:11 Dose: 30 ml Amlodipine Besylate (Amlodipine Besylate 2.5 Mg Tablet) 2.5 mg PO DAILY [facility]; Protocol Last Admin: 04/22/23 08:45 Dose: 2.5 mg Aspirin (Aspirin Enteric Coated 81 Mg Tablet.) 81 mg PO DAILY [facility] Last Admin: 04/22/23 08:45 Dose: 81 mg Atorvastatin Calcium (Atorvastatin Calcium 40 Mg Tablet) 40 mg PO BEDTIME [facility] Last Admin: 04/21/23 21:15 Dose: 40 mg Benzocaine (Throat Lozenge, Medicated Lozenge) 1 lozenge MUCOUS MEM Q2H PRN PRN Reason: Sore Throat Benztropine Mesylate (Benztropine Mesylate 1 Mg Tablet) 1 mg PO DAILY [facility] Last Admin: 04/22/23 08:45 Dose: 1 mg Carbamazepine (Carbamazepine Er 200 Mg Tab.Er.12h) 400 mg PO BEDTIME [facility] Last Admin: 04/21/23 21:15 Dose: 400 mg Cyanocobalamin (Cyanocobalamin (Vitamin B-12) 100 Mcg Tablet) 100 mcg PO DAILY [facility] Last Admin: 04/22/23 08:45 Dose: 100 mcg Divalproex Sodium (Divalproex Sodium 250 Mg Tablet.) 250 mg PO BID [facility] Last Admin: 04/22/23 08:46 Dose: Not Given Furosemide (Furosemide 20 Mg Tablet) 20 mg PO DAILY [facility]; Protocol Last Admin: 04/22/23 08:45 Dose: 20 mg Lorazepam (Lorazepam 1 Mg Tablet) 1 mg PO BEDTIME [facility] Last Admin: 04/21/23 21:15 Dose: 1 mg Lorazepam (Lorazepam 1 Mg Tablet) 1 mg PO BEDTIME PRN PRN Reason: Insomnia Last Admin: 04/12/23 23:40 Dose: 1 mg Magnesium Hydroxide (Milk Of Magnesia 30 Ml Oral.Susp) 30 ml PO DAILY PRN PRN Reason: Constipation Last Admin: 04/21/23 21:19 Dose: 30 ml Magnesium Oxide (Magnesium Oxide 400 Mg Tablet) 400 mg PO DAILY [facility] Last Admin: 04/22/23 08:45 Dose: 400 mg Metoprolol Succinate (Metoprolol Succinate Er 25 Mg Tab.Er.24h) 25 mg PO DAILY [facility]; Protocol Multi-Ingred Medicated Throat [place] (Throat [place], Medicated 177 Ml Bottle) 1 spray MUCOUS MEM Q2H PRN PRN Reason: Sore Throat Pt Own (Trulicity 3 (Mg)) 3 mg SUBCUT Q7D [facility] Last Admin: 04/18/23 11:52 Dose: 3 mg Ondansetron HCl (Ondansetron Odt 4 Mg Tab.Rapdis) 4 mg TRANSLINGU Q6H PRN PRN Reason: Nausea Last Admin: 04/20/23 08:19 Dose: 4 mg Paliperidone (Paliperidone Er 6 Mg Tab.Er.24) 6 mg PO DAILY [facility] Last Admin: 04/22/23 08:46 Dose: Not Given Polyethylene Glycol (Polyethylene Glycol 3350 17 Gm Powd.Pack) 17 gm PO DAILY PRN PRN Reason: Constipation Last Admin: 03/30/23 13:46 Dose: 17 gm Quetiapine Fumarate (Quetiapine Fumarate 50 Mg Tablet) 50 mg PO BID PRN PRN Reason: becca, agitation Quetiapine Fumarate (Quetiapine Fumarate 100 Mg Tablet) 100 mg PO BEDTIME [facility] Last Admin: 04/21/23 21:14 Dose: 100 mg Thyroid (Thyroid,Pork 30 Mg Tablet) 15 mg PO DAILY@0630 [facility] Last Admin: 04/22/23 06:05 Dose: 15 mg Vitamin D (Cholecalciferol (Vitamin D3) 10 Mcg Tablet) 10 mcg PO DAILY [facility] Last Admin: 04/22/23 08:45 Dose: 10 mcg Allergies Allergies Allergy/AdvReac Type Severity Reaction Status Date / Time amoxicillin Allergy Unknown Unknown Uncoded 03/25/23 11:07 Pt states no food allergy Allergy Unknown Unknown Uncoded 03/25/23 11:07 Assessment & Plan Assessment & Plan (1) Bipolar affective disorder, manic, severe, with psychotic behavior: Status: Acute Code(s): F31.2 - Bipolar disorder, current episode manic severe with psychotic features Assessment and Plan: 04/12/23 ongoing becca but seems less labile and pressured today- more cooperative with medical care (2) PTSD (post-traumatic stress disorder): Status: Acute Code(s): F43.10 - Post-traumatic stress disorder, unspecified Plan 62 yo female, history of PTSD, Bipolar Disorder with Psychosis, self presents reporting she has stopped medications. She asks to go to [place], however, is willing to work with the team on M5 at this time. She has stopped meds and is willing to re-start. She has several requests regarding meds which were addressed, however, she will be making further requests as her treatment continues. At this time, she reports being controlled by Estefania Mosqueda in all aspects of her life. This has caused great fear and anxiety. Pt has written several pages regarding this issue and is willing to share these. During our meeting she presents with acute becca, feeling overwhelmed with being controlled and vulnerable. Attempted to offer support, structure, safety for pt today. She has been able to appear to move freely in milieu, sing, dance and appears to feel comfortable and safe while settling in. Plan: Re-establish regime, medical and psychiatric Abilify 5 mg daily- pt request this trial, reports effective history. Today, pt has had ambivalence about Miralax order, asking ~7 times to start and stop. As of this writing, she asks that we not put it on her list of meds. Full milieu Collateral contact Diagnostics as needed. 03/28: Continue current regimen and plans 03/29: Continue current regimen and plans. Increased Abilify to 10 mg and Ambien to 10 mg 03/30: Continue current plans and regimen 03/31: Will file Section 7 on 04/01. 04/02/23: DC Seroquel at HS Increase Trazodone to 75 mg HS. MR x1. Ceftin to stop 04/03. 04/03/23: Increase Abilify to 10 mg bid 04/04: Continue current management and treatment plan. 04/05: check Tegretol level in AM and consider titration based on level and consider titration of Abilify. 04/06: Pt declines Abilify titration at this time. TDN 04/08. 04/08: Section 7, HCP activation 04/09: Encourage treatment with [facility] 04/11/23 continues labile some struggle around diabetes care- 04/12/23 Hold off on Abilify injectable until clear whether or not Abilify will be helpful Abilify 15 mg twice a day morning and after late afternoon Seroquel at bedtime continue Tegretol 04/14/23 Abilify 15 bid seroquel hs encourage change to invega continues psychotic 04/15/23 Depakote 250 bid evaluate response to abilify 04/16/2023 Patient has had no clear response to Abilify floridly delusional early based thinking irritable preoccupied Reportedly had done well in the past on Invega does not wish to retry this discussed restarting therapeutic dose Seroquel which patient did eventually discontinue recently versus Vraylar for manic psychosis which she is agreeable to try 04/17/23 Depakote 250 bid invega po taper abilify 04/17 Patient more organized than she has been in the past. Renewable Energy Broker mentioned this and patient agreed saying that her mind is not so racey... Patient actually reading a book today as well Earlier today she initially refused Invega but then decided to take it. She talked with television script writer saying she thought maybe she should be on Invega and that she should be on Latuda instead however she agreed to continue with Dr. Krueger's plan and did take the Invega and Depakote and said she would continue to do so. Patient expressed and nursing that she was afraid that if she took Invega she would end up on Invega Sustenna, the shot which he does not want. -Continue Depakote 250 mg b.i.d. -Continue Invega -Starting Trulicity today. -Will DC POC qid (but leave a daily POC at patients request); will dc insulin sliding scale; patient has not had blood glucose over 160 despite 4 readings a day and always refuses insulin anyway. 04/18 Today Patient with a little more pressured speech and expressing paranoid delusions than yesterday; has been refusing Seroquel at bedtime. Today had a long list of things that she wanted to communicate some mildly relevant others not; she talked about the [employer] a following her and how she has numerous documents on her laptop proving this, where should she submit these documents etc. -tegretol level therapeutic -associated labs WNL 04/20/23 Inc depakote as tolerated tegretol abilify not helpful inc invega 6 mg daily has pending civil commitment 04/21/23 Pt refusing invega would file for affirmed hcp will try and coordinate with hcp 04/22/23 Increase tegretol to 200 mg a.m. XR and 400 mg XR pm Refused Invega but will continue to offer Asks that hydroxyzine be stopped Ambien 5 mg hs prn Decrease Depakote to 250 mg daily- that is what I will take, take it or leave it. Patient educated on: medication risk/benefits Informed Consent: does not understand and further education needed Reason for continued inpatient stay Substantial Risk for: inability to function and rapid decompensation Time Spent With Patient Time: Total time managing care of this patient today ____ minutes.
[2023-04-22] MEDS: Throat Lozenge, Medicated LOZENGE 1 LOZENGE MUCOUS MEM ×2 (16:31→21:11)
[2023-04-22] MEDS: Throat Spray, Medicated 177 ML BOTTLE 1 SPRAY MUCOUS MEM (16:31)
[2023-04-22] MEDS: LORazepam 1 MG TABLET PO (21:11)
[2023-04-22] MEDS: Atorvastatin Calcium 40 MG TABLET PO (21:11)
[2023-04-22] MEDS: Zolpidem Tartrate 5 MG TABLET PO (21:11)
[2023-04-22] MEDS: QUEtiapine Fumarate 100 MG TABLET PO (21:11)
[2023-04-22] MEDS: Magnesium Hydrox/Alum Hydrox 30 ML ORAL.SUSP PO (21:11)
[2023-04-22] MEDS: carBAMazepine ER 200 MG TAB.ER.12H 400 MG PO (21:11)
[2023-04-23] MEDS: Thyroid,Pork 30 MG TABLET 15 MG PO (05:58)
[2023-04-23 07:00] VITALS: BMI 35.7
[2023-04-23 08:24] VITALS: BP 126/58; PULSE 92; RESP 16; TEMP 36.4; O2SAT 94
[2023-04-23 08:27] LABS: Glucose, Whole Blood 112 mg/dL (60-115)
[2023-04-23] MEDS: carBAMazepine ER 200 MG TAB.ER.12H PO (09:08)
[2023-04-23] MEDS: Aspirin Enteric Coated 81 MG TABLET.DR PO (09:08)
[2023-04-23] MEDS: Cholecalciferol (Vitamin D3) 10 MCG TABLET PO (09:09)
[2023-04-23] MEDS: amLODIPine Besylate 2.5 MG TABLET PO (09:09)
[2023-04-23] MEDS: Benztropine Mesylate 1 MG TABLET PO (09:09)
[2023-04-23] MEDS: Cyanocobalamin (Vitamin B-12) 100 MCG TABLET PO (09:10)
[2023-04-23] MEDS: Metoprolol Succinate ER 25 MG TAB.ER.24H PO (09:10)
[2023-04-23] MEDS: Magnesium Oxide 400 MG TABLET PO (09:10)
[2023-04-23] MEDS: Divalproex Sodium 250 MG TABLET.DR PO (09:10)
[2023-04-23] MEDS: Furosemide 20 MG TABLET PO (09:10)
[2023-04-23] MEDS: Throat Spray, Medicated 177 ML BOTTLE 1 SPRAY MUCOUS MEM (09:11)
[2023-04-23] MEDS: Throat Lozenge, Medicated LOZENGE 1 LOZENGE MUCOUS MEM ×2 (10:56→14:43)
--- NOTE | 2023-04-23 12:58 | P.PNPSI_ITS ---
Subjective Subjective Date of Service: 04/23/23 Reason For Visit: Bipolar Disorder manic psychosis Subjective Notes: Section 7 Healthcare Proxy: No Guardianship: No Medical Problems Affecting Mental Status: No Interim History: Review of meds- Asks that Invega be stopped. Describes SE she has experienced by history Willing to increase Seroquel. Discussed SAD sx and wanting to return to school to study child psychology. 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) Delusions: Paranoid Ideation Thought Process: Rumination Thought Content: positive for Tangential, positive for Disorganized, negative for Suicidal Ideation or negative for Homicidal Ideation Depressive Symptoms: Increased Anxiety and Increased Irritability Judgement: Poor Diagnostics Vital Signs (24Hr): Vital Signs - 24 hr 04/23/23 08:24 Temperature 97.6 F Pulse Rate 92 Respiratory Rate 16 Blood Pressure 126/58 L Pulse Oximetry 94 Oxygen Delivery Method Room Air BMI result Body Mass Index 35.7 Labs 04/19/23 07:30 04/19/23 07:30 Labs: Laboratory Results - last 48 hr 04/22/23 04/23/23 08:03 08:23 POC Glucose 129 H 112 Medications Medications Current Medications Acetaminophen (Acetaminophen 325 Mg Tablet) 650 mg PO Q6H PRN PRN Reason: Headache/Pain Mild Scale (1-3) Al Hydroxide/Mg Hydroxide (Magnesium Hydrox/Alum Hydrox 30 Ml Oral.Susp) 30 ml PO Q6H PRN PRN Reason: Heartburn/Nausea Last Admin: 04/22/23 21:11 Dose: 30 ml Amlodipine Besylate (Amlodipine Besylate 2.5 Mg Tablet) 2.5 mg PO DAILY [facility]; Protocol Last Admin: 04/23/23 09:09 Dose: 2.5 mg Aspirin (Aspirin Enteric Coated 81 Mg Tablet.) 81 mg PO DAILY [facility] Last Admin: 04/23/23 09:08 Dose: 81 mg Atorvastatin Calcium (Atorvastatin Calcium 40 Mg Tablet) 40 mg PO BEDTIME BERNARDA Last Admin: 04/22/23 21:11 Dose: 40 mg Benzocaine (Throat Lozenge, Medicated Lozenge) 1 lozenge MUCOUS MEM Q2H PRN PRN Reason: Sore Throat Last Admin: 04/23/23 10:56 Dose: 1 lozenge Benztropine Mesylate (Benztropine Mesylate 1 Mg Tablet) 1 mg PO DAILY [facility] Last Admin: 04/23/23 09:09 Dose: 1 mg Carbamazepine (Carbamazepine Er 200 Mg Tab.Er.12h) 400 mg PO BEDTIME BERNARDA Last Admin: 04/22/23 21:11 Dose: 400 mg Carbamazepine (Carbamazepine Er 200 Mg Tab.Er.12h) 200 mg PO DAILY [facility] Last Admin: 04/23/23 09:08 Dose: 200 mg Cyanocobalamin (Cyanocobalamin (Vitamin B-12) 100 Mcg Tablet) 100 mcg PO DAILY [facility] Last Admin: 04/23/23 09:10 Dose: 100 mcg Divalproex Sodium (Divalproex Sodium 250 Mg Tablet.Dr) 250 mg PO DAILY [facility] Last Admin: 04/23/23 09:10 Dose: 250 mg Furosemide (Furosemide 20 Mg Tablet) 20 mg PO DAILY [facility]; Protocol Last Admin: 04/23/23 09:10 Dose: 20 mg Lorazepam (Lorazepam 1 Mg Tablet) 1 mg PO BEDTIME BERNARDA Last Admin: 04/22/23 21:11 Dose: 1 mg Lorazepam (Lorazepam 1 Mg Tablet) 1 mg PO BEDTIME PRN PRN Reason: Insomnia Last Admin: 04/12/23 23:40 Dose: 1 mg Magnesium Hydroxide (Milk Of Magnesia 30 Ml Oral.Susp) 30 ml PO DAILY PRN PRN Reason: Constipation Last Admin: 04/21/23 21:19 Dose: 30 ml Magnesium Oxide (Magnesium Oxide 400 Mg Tablet) 400 mg PO DAILY [facility] Last Admin: 04/23/23 09:10 Dose: 400 mg Metoprolol Succinate (Metoprolol Succinate Er 25 Mg Tab.Er.24h) 25 mg PO DAILY [facility]; Protocol Last Admin: 04/23/23 09:10 Dose: 25 mg Multi-Ingred Medicated Throat Mcdermott (Throat [place]der[place], Medicated 177 Ml Bottle) 1 spray MUCOUS MEM Q2H PRN PRN Reason: Sore Throat Last Admin: 04/23/23 09:11 Dose: 1 spray Pt Own (Trulicity 3 (Mg)) 3 mg SUBCUT Q7D [facility] Last Admin: 04/18/23 11:52 Dose: 3 mg Ondansetron HCl (Ondansetron Odt 4 Mg Tab.Rapdis) 4 mg TRANSLINGU Q6H PRN PRN Reason: Nausea Last Admin: 04/20/23 08:19 Dose: 4 mg Paliperidone (Paliperidone Er 6 Mg Tab.Er.24) 6 mg PO DAILY [facility] Last Admin: 04/23/23 09:36 Dose: Not Given Polyethylene Glycol (Polyethylene Glycol 3350 17 Gm Powd.Pack) 17 gm PO DAILY PRN PRN Reason: Constipation Last Admin: 03/30/23 13:46 Dose: 17 gm Quetiapine Fumarate (Quetiapine Fumarate 50 Mg Tablet) 50 mg PO BID PRN PRN Reason: becca, agitation Quetiapine Fumarate (Quetiapine Fumarate 100 Mg Tablet) 100 mg PO BEDTIME [facility] Last Admin: 04/22/23 21:11 Dose: 100 mg Thyroid (Thyroid,Pork 30 Mg Tablet) 15 mg PO DAILY@0630 [facility] Last Admin: 04/23/23 05:58 Dose: 15 mg Vitamin D (Cholecalciferol (Vitamin D3) 10 Mcg Tablet) 10 mcg PO DAILY [facility] Last Admin: 04/23/23 09:09 Dose: 10 mcg Zolpidem Tartrate (Zolpidem Tartrate 5 Mg Tablet) 5 mg PO BEDTIME PRN PRN Reason: Insomnia Last Admin: 04/22/23 21:11 Dose: 5 mg Allergies Allergies Allergy/AdvReac Type Severity Reaction Status Date / Time amoxicillin Allergy Unknown Unknown Uncoded 03/25/23 11:07 Pt states no food allergy Allergy Unknown Unknown Uncoded 03/25/23 11:07 Assessment & Plan Assessment & Plan (1) Bipolar affective disorder, manic, severe, with psychotic behavior: Status: Acute Code(s): F31.2 - Bipolar disorder, current episode manic severe with psychotic features Assessment and Plan: 04/12/23 ongoing becca but seems less labile and pressured today- more cooperative with medical care (2) PTSD (post-traumatic stress disorder): Status: Acute Code(s): F43.10 - Post-traumatic stress disorder, unspecified Plan 62 yo female, history of PTSD, Bipolar Disorder with Psychosis, self presents reporting she has stopped medications. She asks to go to [place], however, is willing to work with the team on M5 at this time. She has stopped meds and is willing to re-start. She has several requests regarding meds which were addressed, however, she will be making further requests as her treatment continues. At this time, she reports being controlled by Estefania Mosqueda in all aspects of her life. This has caused great fear and anxiety. Pt has written several pages regarding this issue and is willing to share these. During our meeting she presents with acute becca, feeling overwhelmed with being controlled and vulnerable. Attempted to offer support, structure, safety for pt today. She has been able to appear to move freely in milieu, sing, dance and appears to feel comfortable and safe while settling in. Plan: Re-establish regime, medical and psychiatric Abilify 5 mg daily- pt request this trial, reports effective history. Today, pt has had ambivalence about Miralax order, asking ~7 times to start and stop. As of this writing, she asks that we not put it on her list of meds. Full milieu Collateral contact Diagnostics as needed. 03/28: Continue current regimen and plans 03/29: Continue current regimen and plans. Increased Abilify to 10 mg and Ambien to 10 mg 03/30: Continue current plans and regimen 03/31: Will file Section 7 on 04/01. 04/02/23: DC Seroquel at HS Increase Trazodone to 75 mg HS. MR x1. Rockin to stop 04/03. 04/03/23: Increase Abilify to 10 mg bid 04/04: Continue current management and treatment plan. 04/05: check Tegretol level in AM and consider titration based on level and consider titration of Abilify. 04/06: Pt declines Abilify titration at this time. TDN 04/08. 04/08: Section 7, HCP activation 04/09: Encourage treatment with [facility] 04/11/23 continues labile some struggle around diabetes care- 04/12/23 Hold off on Abilify injectable until clear whether or not Abilify will be helpful Abilify 15 mg twice a day morning and after late afternoon Seroquel at bedtime continue Tegretol 04/14/23 Abilify 15 bid seroquel hs encourage change to invega continues psychotic 04/15/23 Depakote 250 bid evaluate response to abilify 04/16/2023 Patient has had no clear response to Abilify floridly delusional early based thinking irritable preoccupied Reportedly had done well in the past on Invega does not wish to retry this discussed restarting therapeutic dose Seroquel which patient did eventually discontinue recently versus Vraylar for manic psychosis which she is agreeable to try 04/17/23 Depakote 250 bid invega po taper abilify 04/17 Patient more organized than she has been in the past. Equity Research Associate mentioned this and patient agreed saying that her mind is not so racey... Patient actually reading a book today as well Earlier today she initially refused Invega but then decided to take it. She talked with typewriter aligner saying she thought maybe she should be on Invega and that she should be on Latuda instead however she agreed to continue with Dr. Krueger's plan and did take the Invega and Depakote and said she would continue to do so. Patient expressed and nursing that she was afraid that if she took Invega she would end up on Invega Sustenna, the shot which he does not want. -Continue Depakote 250 mg b.i.d. -Continue Invega -Starting Trulicity today. -Will DC POC qid (but leave a daily POC at patients request); will dc insulin sliding scale; patient has not had blood glucose over 160 despite 4 readings a day and always refuses insulin anyway. 04/18 Today Patient with a little more pressured speech and expressing paranoid delusions than yesterday; has been refusing Seroquel at bedtime. Today had a long list of things that she wanted to communicate some mildly relevant others not; she talked about the [facility] a following her and how she has numerous documents on her laptop proving this, where should she submit these documents etc. -tegretol level therapeutic -associated labs WNL 04/20/23 Inc depakote as tolerated tegretol abilify not helpful inc invega 6 mg daily has pending civil commitment 04/21/23 Pt refusing invega would file for affirmed hcp will try and coordinate with hcp 04/22/23 Increase tegretol to 200 mg a.m. XR and 400 mg XR pm Refused Invega but will continue to offer Asks that hydroxyzine be stopped Ambien 5 mg hs prn Decrease Depakote to 250 mg daily- that is what I will take, take it or leave it. 04/23/23 Discontinue Invega Increase Seroquel to 125 mg HS Patient educated on: medication risk/benefits and therapeutic strategies Informed Consent: further education needed Reason for continued inpatient stay Substantial Risk for: rapid decompensation Time Spent With Patient Time: Total time managing care of this patient today ____ minutes.
[2023-04-23 19:00] VITALS: BP 133/62; PULSE 91; RESP 16; TEMP 36.6; O2SAT 96
[2023-04-23] MEDS: QUEtiapine Fumarate 25 MG TABLET 125 MG PO (21:06)
[2023-04-23] MEDS: LORazepam 1 MG TABLET PO (21:06)
[2023-04-23] MEDS: carBAMazepine ER 200 MG TAB.ER.12H 400 MG PO (21:06)
[2023-04-23] MEDS: Atorvastatin Calcium 40 MG TABLET PO (21:06)
[2023-04-23] MEDS: Zolpidem Tartrate 5 MG TABLET PO (21:12)
[2023-04-23] MEDS: Milk of Magnesia 30 ML ORAL.SUSP PO (21:13)
[2023-04-24] MEDS: Thyroid,Pork 30 MG TABLET 15 MG PO (05:30)
[2023-04-24 07:56] LABS: Glucose, Whole Blood 105 mg/dL (60-115)
[2023-04-24 08:08] VITALS: BP 139/63; PULSE 84; RESP 16; TEMP 36.5; O2SAT 95
[2023-04-24] MEDS: Ondansetron ODT 4 MG TAB.RAPDIS TRANSLINGU (08:32)
[2023-04-24] MEDS: Magnesium Oxide 400 MG TABLET PO (08:42)
[2023-04-24] MEDS: Furosemide 20 MG TABLET PO (08:42)
[2023-04-24] MEDS: Metoprolol Succinate ER 25 MG TAB.ER.24H PO (08:42)
[2023-04-24] MEDS: Cyanocobalamin (Vitamin B-12) 100 MCG TABLET PO (08:42)
[2023-04-24] MEDS: Benztropine Mesylate 1 MG TABLET PO (08:42)
[2023-04-24] MEDS: Aspirin Enteric Coated 81 MG TABLET.DR PO (08:43)
[2023-04-24] MEDS: carBAMazepine ER 200 MG TAB.ER.12H PO (08:43)
[2023-04-24] MEDS: Cholecalciferol (Vitamin D3) 10 MCG TABLET PO (08:43)
[2023-04-24] MEDS: Divalproex Sodium 250 MG TABLET.DR PO (08:43)
[2023-04-24] MEDS: amLODIPine Besylate 2.5 MG TABLET PO (08:44)
[2023-04-24] MEDS: Throat Lozenge, Medicated LOZENGE 1 LOZENGE MUCOUS MEM (09:35)
--- NOTE | 2023-04-24 14:38 | P.PNPSI_ITS ---
Subjective Subjective Date of Service: 04/24/23 Reason For Visit: Bipolar Disorder manic psychosis Subjective Notes: Section 7 Healthcare Proxy: No Guardianship: No Medical Problems Affecting Mental Status: No Interim History: Irritable, with several demands today. Discussed three day notice, attempted to review section 7. Pt could not tolerate a brief initiation of a discussion. NO . There will be no court. I will go to federal court with my comsec manager against [facility]. Demanding to see the human rights officer, to call [place] for Public Press Brake Operator, to review all of her records from each admission. Demands to leave, yet calms and approaches marketing writer later in the afternoon- maybe Thursday . Court 05/14/23. Medication Compliance: Intermittent Side effects from medications: No Attending Groups: Intermittent Review of Systems Acute medical concerns: No Medical Review of Systems: unchanged Review of Systems Review of Systems Resolving flu sx. Reports she does feel improved. 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) Delusions: Paranoid Ideation Thought Process: Rumination Thought Content: positive for Tangential, positive for Disorganized, negative for Suicidal Ideation or negative for Homicidal Ideation Depressive Symptoms: Increased Anxiety and Increased Irritability Judgement: Poor Diagnostics Vital Signs (24Hr): Vital Signs - 24 hr 04/23/23 19:00 04/24/23 08:08 Temperature 97.9 F 97.7 F Pulse Rate 91 84 Respiratory Rate 16 16 Blood Pressure 133/62 139/63 Pulse Oximetry 96 95 Oxygen Delivery Method Room Air Room Air BMI result Body Mass Index 35.7 Labs 04/19/23 07:30 04/19/23 07:30 Labs: Laboratory Results - last 48 hr 04/23/23 04/24/23 08:23 07:49 POC Glucose 112 105 Medications Medications Current Medications Acetaminophen (Acetaminophen 325 Mg Tablet) 650 mg PO Q6H PRN PRN Reason: Headache/Pain Mild Scale (1-3) Al Hydroxide/Mg Hydroxide (Magnesium Hydrox/Alum Hydrox 30 Ml Oral.Susp) 30 ml PO Q6H PRN PRN Reason: Heartburn/Nausea Last Admin: 04/22/23 21:11 Dose: 30 ml Amlodipine Besylate (Amlodipine Besylate 2.5 Mg Tablet) 2.5 mg PO DAILY [facility]; Protocol Last Admin: 04/24/23 08:44 Dose: 2.5 mg Aspirin (Aspirin Enteric Coated 81 Mg Tablet.) 81 mg PO DAILY [facility] Last Admin: 04/24/23 08:43 Dose: 81 mg Atorvastatin Calcium (Atorvastatin Calcium 40 Mg Tablet) 40 mg PO BEDTIME [facility]ERNARDA Last Admin: 04/23/23 21:06 Dose: 40 mg Benzocaine (Throat Lozenge, Medicated Lozenge) 1 lozenge MUCOUS MEM Q2H PRN PRN Reason: Sore Throat Last Admin: 04/24/23 09:35 Dose: 1 lozenge Benztropine Mesylate (Benztropine Mesylate 1 Mg Tablet) 1 mg PO DAILY [facility] Last Admin: 04/24/23 08:42 Dose: 1 mg Carbamazepine (Carbamazepine Er 200 Mg Tab.Er.12h) 400 mg PO BEDTIME BERNARDA Last Admin: 04/23/23 21:06 Dose: 400 mg Carbamazepine (Carbamazepine Er 200 Mg Tab.Er.12h) 200 mg PO DAILY [facility] Last Admin: 04/24/23 08:43 Dose: 200 mg Cyanocobalamin (Cyanocobalamin (Vitamin B-12) 100 Mcg Tablet) 100 mcg PO DAILY [facility] Last Admin: 04/24/23 08:42 Dose: 100 mcg Divalproex Sodium (Divalproex Sodium 250 Mg Tablet.) 250 mg PO DAILY [facility] Last Admin: 04/24/23 08:43 Dose: 250 mg Furosemide (Furosemide 20 Mg Tablet) 20 mg PO DAILY [facility]; Protocol Last Admin: 04/24/23 08:42 Dose: 20 mg Lorazepam (Lorazepam 1 Mg Tablet) 1 mg PO BEDTIME [facility] Last Admin: 04/23/23 21:06 Dose: 1 mg Lorazepam (Lorazepam 1 Mg Tablet) 1 mg PO BEDTIME PRN PRN Reason: Insomnia Last Admin: 04/12/23 23:40 Dose: 1 mg Magnesium Hydroxide (Milk Of Magnesia 30 Ml Oral.Susp) 30 ml PO DAILY PRN PRN Reason: Constipation Last Admin: 04/23/23 21:13 Dose: 30 ml Magnesium Oxide (Magnesium Oxide 400 Mg Tablet) 400 mg PO DAILY [facility] Last Admin: 04/24/23 08:42 Dose: 400 mg Metoprolol Succinate (Metoprolol Succinate Er 25 Mg Tab.Er.24h) 25 mg PO DAILY [facility]; Protocol Last Admin: 04/24/23 08:42 Dose: 25 mg Multi-Ingred Medicated Throat Alvarado (Throat Alvarado, Medicated 177 Ml Bottle) 1 spray MUCOUS MEM Q2H PRN PRN Reason: Sore Throat Last Admin: 04/23/23 09:11 Dose: 1 spray Pt Own (Trulicity 3 (Mg)) 3 mg SUBCUT Q7D [facility] Last Admin: 04/18/23 11:52 Dose: 3 mg Ondansetron HCl (Ondansetron Odt 4 Mg Tab.Rapdis) 4 mg TRANSLINGU Q6H PRN PRN Reason: Nausea Last Admin: 04/24/23 08:32 Dose: 4 mg Polyethylene Glycol (Polyethylene Glycol 3350 17 Gm Powd.Pack) 17 gm PO DAILY PRN PRN Reason: Constipation Last Admin: 03/30/23 13:46 Dose: 17 gm Quetiapine Fumarate (Quetiapine Fumarate 50 Mg Tablet) 50 mg PO BID PRN PRN Reason: becca, agitation Quetiapine Fumarate (Quetiapine Fumarate 25 Mg Tablet) 125 mg PO BEDTIME [facility] Last Admin: 04/23/23 21:06 Dose: 125 mg Thyroid (Thyroid,Pork 30 Mg Tablet) 15 mg PO DAILY@0630 [facility] Last Admin: 04/24/23 05:30 Dose: 15 mg Vitamin D (Cholecalciferol (Vitamin D3) 10 Mcg Tablet) 10 mcg PO DAILY [facility] Last Admin: 04/24/23 08:43 Dose: 10 mcg Zolpidem Tartrate (Zolpidem Tartrate 5 Mg Tablet) 5 mg PO BEDTIME PRN PRN Reason: Insomnia Last Admin: 04/23/23 21:12 Dose: 5 mg Allergies Allergies Allergy/AdvReac Type Severity Reaction Status Date / Time amoxicillin Allergy Unknown Unknown Uncoded 03/25/23 11:07 Pt states no food allergy Allergy Unknown Unknown Uncoded 03/25/23 11:07 Assessment & Plan Assessment & Plan (1) Bipolar affective disorder, manic, severe, with psychotic behavior: Status: Acute Code(s): F31.2 - Bipolar disorder, current episode manic severe with psychotic features Assessment and Plan: 04/12/23 ongoing becca but seems less labile and pressured today- more cooperative with medical care (2) PTSD (post-traumatic stress disorder): Status: Acute Code(s): F43.10 - Post-traumatic stress disorder, unspecified Plan 62 yo female, history of PTSD, Bipolar Disorder with Psychosis, self presents reporting she has stopped medications. She asks to go to [place], however, is willing to work with the team on M5 at this time. She has stopped meds and is willing to re-start. She has several requests regarding meds which were addressed, however, she will be making further requests as her treatment continues. At this time, she reports being controlled by Estefania Mosqueda in all aspects of her life. This has caused great fear and anxiety. Pt has written several pages regarding this issue and is willing to share these. During our meeting she presents with acute becca, feeling overwhelmed with being controlled and vulnerable. Attempted to offer support, structure, safety for pt today. She has been able to appear to move freely in milieu, sing, dance and appears to feel comfortable and safe while settling in. Plan: Re-establish regime, medical and psychiatric Abilify 5 mg daily- pt request this trial, reports effective history. Today, pt has had ambivalence about Miralax order, asking ~7 times to start and stop. As of this writing, she asks that we not put it on her list of meds. Full milieu Collateral contact Diagnostics as needed. 03/28: Continue current regimen and plans 03/29: Continue current regimen and plans. Increased Abilify to 10 mg and Ambien to 10 mg 03/30: Continue current plans and regimen 03/31: Will file Section 7 on 04/01. 04/02/23: DC Seroquel at HS Increase Trazodone to 75 mg HS. MR x1. Ceftin to stop 04/03. 04/03/23: Increase Abilify to 10 mg bid 04/04: Continue current management and treatment plan. 04/05: check Tegretol level in AM and consider titration based on level and consider titration of Abilify. 04/06: Pt declines Abilify titration at this time. TDN 04/08. 04/08: Section 7, HCP activation 04/09: Encourage treatment with [facility] 04/11/23 continues labile some struggle around diabetes care- 04/12/23 Hold off on Abilify injectable until clear whether or not Abilify will be helpful Abilify 15 mg twice a day morning and after late afternoon Seroquel at bedtime continue Tegretol 04/14/23 Abilify 15 bid seroquel hs encourage change to invega continues psychotic 04/15/23 Depakote 250 bid evaluate response to abilify 04/16/2023 Patient has had no clear response to Abilify floridly delusional early based thinking irritable preoccupied Reportedly had done well in the past on Invega does not wish to retry this discussed restarting therapeutic dose Seroquel which patient did eventually discontinue recently versus Vraylar for manic psychosis which she is agreeable to try 04/17/23 Depakote 250 bid invega po taper abilify 04/17 Patient more organized than she has been in the past. Advanced Manufacturing Engineer mentioned this and patient agreed saying that her mind is not so racey... Patient actually reading a book today as well Earlier today she initially refused Invega but then decided to take it. She talked with marketing writer saying she thought maybe she should be on Invega and that she should be on Latuda instead however she agreed to continue with Dr. Krueger's plan and did take the Invega and Depakote and said she would continue to do so. Patient expressed and nursing that she was afraid that if she took Invega she would end up on Invega Sustenna, the shot which he does not want. -Continue Depakote 250 mg b.i.d. -Continue Invega -Starting Trulicity today. -Will DC POC qid (but leave a daily POC at patients request); will dc insulin sliding scale; patient has not had blood glucose over 160 despite 4 readings a day and always refuses insulin anyway. 04/18 Today Patient with a little more pressured speech and expressing paranoid delusions than yesterday; has been refusing Seroquel at bedtime. Today had a long list of things that she wanted to communicate some mildly relevant others not; she talked about the [facility] a following her and how she has numerous documents on her laptop proving this, where should she submit these documents etc. -tegretol level therapeutic -associated labs WNL 04/20/23 Inc depakote as tolerated tegretol abilify not helpful inc invega 6 mg daily has pending civil commitment 04/21/23 Pt refusing invega would file for affirmed hcp will try and coordinate with hcp 04/22/23 Increase tegretol to 200 mg a.m. XR and 400 mg XR pm Refused Invega but will continue to offer Asks that hydroxyzine be stopped Ambien 5 mg hs prn Decrease Depakote to 250 mg daily- that is what I will take, take it or leave it. 04/23/23 Discontinue Invega Increase Seroquel to 125 mg HS 04/24/23 Continue tx. Informed Consent: does not understand Reason for continued inpatient stay Substantial Risk for: rapid decompensation Time Spent With Patient Time: Total time managing care of this patient today ____ minutes.
[2023-04-24 16:55] VITALS: BP 156/90; PULSE 94; RESP 16; TEMP 36.6; O2SAT 96
[2023-04-24] MEDS: LORazepam 1 MG TABLET PO (21:38)
[2023-04-24] MEDS: QUEtiapine Fumarate 25 MG TABLET 125 MG PO (21:38)
[2023-04-24] MEDS: Zolpidem Tartrate 5 MG TABLET PO (21:38)
[2023-04-24] MEDS: Atorvastatin Calcium 40 MG TABLET PO (21:38)
[2023-04-24] MEDS: QUEtiapine Fumarate 50 MG TABLET PO (21:38)
[2023-04-24] MEDS: carBAMazepine ER 200 MG TAB.ER.12H 400 MG PO (21:39)
[2023-04-25] MEDS: Thyroid,Pork 30 MG TABLET 15 MG PO (06:30)
[2023-04-25] MEDS: Furosemide 20 MG TABLET PO (08:17)
[2023-04-25] MEDS: Cyanocobalamin (Vitamin B-12) 100 MCG TABLET PO (08:17)
[2023-04-25] MEDS: carBAMazepine ER 200 MG TAB.ER.12H PO (08:18)
[2023-04-25] MEDS: Magnesium Oxide 400 MG TABLET PO (08:18)
[2023-04-25] MEDS: Benztropine Mesylate 1 MG TABLET PO (08:18)
[2023-04-25] MEDS: Cholecalciferol (Vitamin D3) 10 MCG TABLET PO (08:18)
[2023-04-25] MEDS: Aspirin Enteric Coated 81 MG TABLET.DR PO (08:18)
[2023-04-25] MEDS: Divalproex Sodium 250 MG TABLET.DR PO (08:19)
[2023-04-25] MEDS: Metoprolol Succinate ER 25 MG TAB.ER.24H PO (08:19)
[2023-04-25] MEDS: amLODIPine Besylate 2.5 MG TABLET PO (08:19)
--- NOTE | 2023-04-25 08:27 | P.PNPSI_ITS ---
Subjective Subjective Date of Service: 04/25/23 Reason For Visit: Bipolar Disorder manic psychosis Subjective Notes: Section 7 Interim History: Patient was seen and discussed in rounds today. Records and plans were reviewed. Continues to respond to internal stimuli. She has self dialogue. Eating and sleeping adequately. No complaints. No dangerous behaviors. 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) Delusions: Paranoid Ideation Thought Process: Rumination Thought Content: positive for Tangential, positive for Disorganized, negative for Suicidal Ideation or negative for Homicidal Ideation Depressive Symptoms: Increased Anxiety and Increased Irritability Judgement: Poor Diagnostics Vital Signs (24Hr): Vital Signs - 24 hr 04/24/23 16:55 Temperature 97.9 F Pulse Rate 94 Respiratory Rate 16 Blood Pressure 156/90 H Pulse Oximetry 96 Oxygen Delivery Method Room Air BMI result Body Mass Index 35.7 Labs 04/19/23 07:30 04/19/23 07:30 Labs: Laboratory Results - last 48 hr 04/23/23 04/24/23 08:23 07:49 POC Glucose 112 105 Medications Medications Current Medications Acetaminophen (Acetaminophen 325 Mg Tablet) 650 mg PO Q6H PRN PRN Reason: Headache/Pain Mild Scale (1-3) Al Hydroxide/Mg Hydroxide (Magnesium Hydrox/Alum Hydrox 30 Ml Oral.Susp) 30 ml PO Q6H PRN PRN Reason: Heartburn/Nausea Last Admin: 04/22/23 21:11 Dose: 30 ml Amlodipine Besylate (Amlodipine Besylate 2.5 Mg Tablet) 2.5 mg PO DAILY [facility]; Protocol Last Admin: 04/25/23 08:19 Dose: 2.5 mg Aspirin (Aspirin Enteric Coated 81 Mg Tablet.) 81 mg PO DAILY [facility] Last Admin: 04/25/23 08:18 Dose: 81 mg Atorvastatin Calcium (Atorvastatin Calcium 40 Mg Tablet) 40 mg PO BEDTIME [facility] Last Admin: 04/24/23 21:38 Dose: 40 mg Benzocaine (Throat Lozenge, Medicated Lozenge) 1 lozenge MUCOUS MEM Q2H PRN PRN Reason: Sore Throat Last Admin: 04/24/23 09:35 Dose: 1 lozenge Benztropine Mesylate (Benztropine Mesylate 1 Mg Tablet) 1 mg PO DAILY [facility] Last Admin: 04/25/23 08:18 Dose: 1 mg Carbamazepine (Carbamazepine Er 200 Mg Tab.Er.12h) 400 mg PO BEDTIME [facility] Last Admin: 04/24/23 21:39 Dose: 400 mg Carbamazepine (Carbamazepine Er 200 Mg Tab.Er.12h) 200 mg PO DAILY [facility] Last Admin: 04/25/23 08:18 Dose: 200 mg Cyanocobalamin (Cyanocobalamin (Vitamin B-12) 100 Mcg Tablet) 100 mcg PO DAILY [facility] Last Admin: 04/25/23 08:17 Dose: 100 mcg Divalproex Sodium (Divalproex Sodium 250 Mg Tablet.Dr) 250 mg PO DAILY [facility] Last Admin: 04/25/23 08:19 Dose: 250 mg Furosemide (Furosemide 20 Mg Tablet) 20 mg PO DAILY [facility]; Protocol Last Admin: 04/25/23 08:17 Dose: 20 mg Lorazepam (Lorazepam 1 Mg Tablet) 1 mg PO BEDTIME [facility] Last Admin: 04/24/23 21:38 Dose: 1 mg Lorazepam (Lorazepam 1 Mg Tablet) 1 mg PO BEDTIME PRN PRN Reason: Insomnia Last Admin: 04/12/23 23:40 Dose: 1 mg Magnesium Hydroxide (Milk Of Magnesia 30 Ml Oral.Susp) 30 ml PO DAILY PRN PRN Reason: Constipation Last Admin: 04/23/23 21:13 Dose: 30 ml Magnesium Oxide (Magnesium Oxide 400 Mg Tablet) 400 mg PO DAILY [facility] Last Admin: 04/25/23 08:18 Dose: 400 mg Metoprolol Succinate (Metoprolol Succinate Er 25 Mg Tab.Er.24h) 25 mg PO DAILY [facility]; Protocol Last Admin: 04/25/23 08:19 Dose: 25 mg Multi-Ingred Medicated Throat [place] (Throat [place], Medicated 177 Ml Bottle) 1 spray MUCOUS MEM Q2H PRN PRN Reason: Sore Throat Last Admin: 04/23/23 09:11 Dose: 1 spray Pt Own (Trulicity 3 (Mg)) 3 mg SUBCUT Q7D [facility] Last Admin: 04/18/23 11:52 Dose: 3 mg Ondansetron HCl (Ondansetron Odt 4 Mg Tab.Rapdis) 4 mg TRANSLINGU Q6H PRN PRN Reason: Nausea Last Admin: 04/24/23 08:32 Dose: 4 mg Polyethylene Glycol (Polyethylene Glycol 3350 17 Gm Powd.Pack) 17 gm PO DAILY PRN PRN Reason: Constipation Last Admin: 03/30/23 13:46 Dose: 17 gm Quetiapine Fumarate (Quetiapine Fumarate 50 Mg Tablet) 50 mg PO BID PRN PRN Reason: becca, agitation Last Admin: 04/24/23 21:38 Dose: 50 mg Quetiapine Fumarate (Quetiapine Fumarate 25 Mg Tablet) 125 mg PO BEDTIME [facility] Last Admin: 04/24/23 21:38 Dose: 125 mg Thyroid (Thyroid,Pork 30 Mg Tablet) 15 mg PO DAILY@0630 [facility] Last Admin: 04/25/23 06:30 Dose: 15 mg Vitamin D (Cholecalciferol (Vitamin D3) 10 Mcg Tablet) 10 mcg PO DAILY [facility] Last Admin: 04/25/23 08:18 Dose: 10 mcg Zolpidem Tartrate (Zolpidem Tartrate 5 Mg Tablet) 5 mg PO BEDTIME PRN PRN Reason: Insomnia Last Admin: 04/24/23 21:38 Dose: 5 mg Allergies Allergies Allergy/AdvReac Type Severity Reaction Status Date / Time amoxicillin Allergy Unknown Unknown Uncoded 03/25/23 11:07 Pt states no food allergy Allergy Unknown Unknown Uncoded 03/25/23 11:07 Assessment & Plan Assessment & Plan (1) Bipolar affective disorder, manic, severe, with psychotic behavior: Status: Acute Code(s): F31.2 - Bipolar disorder, current episode manic severe with psychotic features Assessment and Plan: 04/12/23 ongoing becca but seems less labile and pressured today- more cooperative with medical care (2) PTSD (post-traumatic stress disorder): Status: Acute Code(s): F43.10 - Post-traumatic stress disorder, unspecified Plan 62 yo female, history of PTSD, Bipolar Disorder with Psychosis, self presents reporting she has stopped medications. She asks to go to [place], however, is willing to work with the team on at this time. She has stopped meds and is willing to re-start. She has several requests regarding meds which were addressed, however, she will be making further requests as her treatment continues. At this time, she reports being controlled by Estefania Mosqueda in all aspects of her life. This has caused great fear and anxiety. Pt has written several pages regarding this issue and is willing to share these. During our meeting she presents with acute becca, feeling overwhelmed with being controlled and vulnerable. Attempted to offer support, structure, safety for pt today. She has been able to appear to move freely in milieu, sing, dance and appears to feel comfortable and safe while settling in. Plan: Re-establish regime, medical and psychiatric Abilify 5 mg daily- pt request this trial, reports effective history. Today, pt has had ambivalence about Miralax order, asking ~7 times to start and stop. As of this writing, she asks that we not put it on her list of meds. Full milieu Collateral contact Diagnostics as needed. 03/28: Continue current regimen and plans 03/29: Continue current regimen and plans. Increased Abilify to 10 mg and Ambien to 10 mg 03/30: Continue current plans and regimen 03/31: Will file Section 7 on 04/01. 04/02/23: DC Seroquel at HS Increase Trazodone to 75 mg HS. MR x1. Rockin to stop 04/03. 04/03/23: Increase Abilify to 10 mg bid 04/04: Continue current management and treatment plan. 04/05: check Tegretol level in AM and consider titration based on level and consider titration of Abilify. 04/06: Pt declines Abilify titration at this time. TDN 04/08. 04/08: Section 7, HCP activation 04/09: Encourage treatment with [facility] 04/11/23 continues labile some struggle around diabetes care- 04/12/23 Hold off on Abilify injectable until clear whether or not Abilify will be helpful Abilify 15 mg twice a day morning and after late afternoon Seroquel at bedtime continue Tegretol 04/14/23 Abilify 15 bid seroquel hs encourage change to invega continues psychotic 04/15/23 Depakote 250 bid evaluate response to abilify 04/16/2023 Patient has had no clear response to Abilify floridly delusional early based thinking irritable preoccupied Reportedly had done well in the past on Invega does not wish to retry this discussed restarting therapeutic dose Seroquel which patient did eventually discontinue recently versus Vraylar for manic psychosis which she is agreeable to try 04/17/23 Depakote 250 bid invega po taper abilify 04/17 Patient more organized than she has been in the past. Wire Coiler Machine Operator mentioned this and patient agreed saying that her mind is not so racey... Patient actually reading a book today as well Earlier today she initially refused Invega but then decided to take it. She talked with fiction and nonfiction writer prose saying she thought maybe she should be on Invega and that she should be on Latuda instead however she agreed to continue with Dr. Krueger's plan and did take the Invega and Depakote and said she would continue to do so. Patient expressed and nursing that she was afraid that if she took Invega she would end up on Invega Sustenna, the shot which he does not want. -Continue Depakote 250 mg b.i.d. -Continue Invega -Starting Trulicity today. -Will DC POC qid (but leave a daily POC at patients request); will dc insulin sliding scale; patient has not had blood glucose over 160 despite 4 readings a day and always refuses insulin anyway. 04/18 Today Patient with a little more pressured speech and expressing paranoid delusions than yesterday; has been refusing Seroquel at bedtime. Today had a long list of things that she wanted to communicate some mildly relevant others not; she talked about the [facility] a following her and how she has numerous documents on her laptop proving this, where should she submit these documents etc. -tegretol level therapeutic -associated labs WNL 04/20/23 Inc depakote as tolerated tegretol abilify not helpful inc invega 6 mg daily has pending civil commitment 04/21/23 Pt refusing invega would file for affirmed hcp will try and coordinate with hcp 04/22/23 Increase tegretol to 200 mg a.m. XR and 400 mg XR pm Refused Invega but will continue to offer Asks that hydroxyzine be stopped Ambien 5 mg hs prn Decrease Depakote to 250 mg daily- that is what I will take, take it or leave it. 04/23/23 Discontinue Invega Increase Seroquel to 125 mg HS 04/24/23 Continue tx. 04/25/2023: Continue current regimen and plans. Reason for continued inpatient stay Substantial Risk for: med/psych decompensation Time Spent With Patient Time: Total time managing care of this patient today ____ minutes.
[2023-04-25 08:30] VITALS: BP 138/71; PULSE 90; RESP 17; TEMP 36.2; O2SAT 96
[2023-04-25 08:45] LABS: Glucose, Whole Blood 135 mg/dL (60-115)
[2023-04-25] MEDS: Throat Lozenge, Medicated LOZENGE 1 LOZENGE MUCOUS MEM ×2 (10:19→17:45)
[2023-04-25 17:05] VITALS: BP 146/77; PULSE 94; RESP 16; TEMP 36.8; O2SAT 96
[2023-04-25] MEDS: QUEtiapine Fumarate 25 MG TABLET 125 MG PO (21:25)
[2023-04-25] MEDS: Atorvastatin Calcium 40 MG TABLET PO (21:25)
[2023-04-25] MEDS: LORazepam 1 MG TABLET PO (21:25)
[2023-04-25] MEDS: Zolpidem Tartrate 5 MG TABLET PO (21:25)
[2023-04-25] MEDS: carBAMazepine ER 200 MG TAB.ER.12H 400 MG PO (21:25)
[2023-04-26 06:00] VITALS: BP 140/58; PULSE 87; RESP 16; TEMP 36.6; O2SAT 97
[2023-04-26] MEDS: Thyroid,Pork 30 MG TABLET 15 MG PO (06:19)
[2023-04-26 08:08] LABS: Glucose, Whole Blood 103 mg/dL (60-115)
[2023-04-26] MEDS: Aspirin Enteric Coated 81 MG TABLET.DR PO (08:18)
[2023-04-26] MEDS: Cyanocobalamin (Vitamin B-12) 100 MCG TABLET PO (08:18)
[2023-04-26] MEDS: Benztropine Mesylate 1 MG TABLET PO (08:18)
[2023-04-26] MEDS: carBAMazepine ER 200 MG TAB.ER.12H PO (08:18)
[2023-04-26] MEDS: Magnesium Oxide 400 MG TABLET PO (08:18)
[2023-04-26] MEDS: Furosemide 20 MG TABLET PO (08:19)
[2023-04-26] MEDS: Divalproex Sodium 250 MG TABLET.DR PO (08:19)
[2023-04-26] MEDS: amLODIPine Besylate 2.5 MG TABLET PO (08:19)
[2023-04-26] MEDS: Cholecalciferol (Vitamin D3) 10 MCG TABLET PO (08:20)
[2023-04-26] MEDS: Metoprolol Succinate ER 25 MG TAB.ER.24H PO (08:20)
--- NOTE | 2023-04-26 09:56 | P.PNPSI_ITS ---
Subjective Subjective Date of Service: 04/26/23 Reason For Visit: Bipolar Disorder manic psychosis Subjective Notes: Section 7 Interim History: Patient was seen and discussed in rounds today. Records and plans were reviewed. She continues to be delusional, isolative but more interactive on approach. She is medication compliant. Somewhat entitled at times. Responding to internal stimuli. Eating and sleeping adequately. 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) Delusions: Paranoid Ideation Thought Process: Rumination Thought Content: positive for Tangential, positive for Disorganized, negative for Suicidal Ideation or negative for Homicidal Ideation Depressive Symptoms: Increased Anxiety and Increased Irritability Judgement: Poor Diagnostics Vital Signs (24Hr): Vital Signs - 24 hr 04/25/23 17:05 04/26/23 06:00 Temperature 98.2 F 97.8 F Pulse Rate 94 87 Respiratory Rate 16 16 Blood Pressure 146/77 H 140/58 H Pulse Oximetry 96 97 Oxygen Delivery Method Room Air Room Air BMI result Body Mass Index 35.7 Labs 04/19/23 07:30 04/19/23 07:30 Labs: Laboratory Results - last 48 hr 04/25/23 04/26/23 08:39 08:04 POC Glucose 135 H 103 Medications Medications Current Medications Acetaminophen (Acetaminophen 325 Mg Tablet) 650 mg PO Q6H PRN PRN Reason: Headache/Pain Mild Scale (1-3) Al Hydroxide/Mg Hydroxide (Magnesium Hydrox/Alum Hydrox 30 Ml Oral.Susp) 30 ml PO Q6H PRN PRN Reason: Heartburn/Nausea Last Admin: 04/22/23 21:11 Dose: 30 ml Amlodipine Besylate (Amlodipine Besylate 2.5 Mg Tablet) 2.5 mg PO DAILY [facility]; Protocol Last Admin: 04/26/23 08:19 Dose: 2.5 mg Aspirin (Aspirin Enteric Coated 81 Mg Tablet.) 81 mg PO DAILY [facility] Last Admin: 04/26/23 08:18 Dose: 81 mg Atorvastatin Calcium (Atorvastatin Calcium 40 Mg Tablet) 40 mg PO BEDTIME [facility] Last Admin: 04/25/23 21:25 Dose: 40 mg Benzocaine (Throat Lozenge, Medicated Lozenge) 1 lozenge MUCOUS MEM Q2H PRN PRN Reason: Sore Throat Last Admin: 04/25/23 17:45 Dose: 1 lozenge Benztropine Mesylate (Benztropine Mesylate 1 Mg Tablet) 1 mg PO DAILY [facility] Last Admin: 04/26/23 08:18 Dose: 1 mg Carbamazepine (Carbamazepine Er 200 Mg Tab.Er.12h) 400 mg PO BEDTIME [facility] Last Admin: 04/25/23 21:25 Dose: 400 mg Carbamazepine (Carbamazepine Er 200 Mg Tab.Er.12h) 200 mg PO DAILY [facility] Last Admin: 04/26/23 08:18 Dose: 200 mg Cyanocobalamin (Cyanocobalamin (Vitamin B-12) 100 Mcg Tablet) 100 mcg PO DAILY [facility] Last Admin: 04/26/23 08:18 Dose: 100 mcg Divalproex Sodium (Divalproex Sodium 250 Mg Tablet.Dr) 250 mg PO DAILY [facility] Last Admin: 04/26/23 08:19 Dose: 250 mg Furosemide (Furosemide 20 Mg Tablet) 20 mg PO DAILY [facility]; Protocol Last Admin: 04/26/23 08:19 Dose: 20 mg Lorazepam (Lorazepam 1 Mg Tablet) 1 mg PO BEDTIME [facility] Last Admin: 04/25/23 21:25 Dose: 1 mg Lorazepam (Lorazepam 1 Mg Tablet) 1 mg PO BEDTIME PRN PRN Reason: Insomnia Last Admin: 04/12/23 23:40 Dose: 1 mg Magnesium Hydroxide (Milk Of Magnesia 30 Ml Oral.Susp) 30 ml PO DAILY PRN PRN Reason: Constipation Last Admin: 04/23/23 21:13 Dose: 30 ml Magnesium Oxide (Magnesium Oxide 400 Mg Tablet) 400 mg PO DAILY [facility] Last Admin: 04/26/23 08:18 Dose: 400 mg Metoprolol Succinate (Metoprolol Succinate Er 25 Mg Tab.Er.24h) 25 mg PO DAILY [facility]; Protocol Last Admin: 04/26/23 08:20 Dose: 25 mg Multi-Ingred Medicated Throat [place] (Throat [place], Medicated 177 Ml Bottle) 1 spray MUCOUS MEM Q2H PRN PRN Reason: Sore Throat Last Admin: 04/23/23 09:11 Dose: 1 spray Pt Own (Trulicity 3 (Mg)) 3 mg SUBCUT Q7D [facility] Last Admin: 04/25/23 12:34 Dose: 3 mg Ondansetron HCl (Ondansetron Odt 4 Mg Tab.Rapdis) 4 mg TRANSLINGU Q6H PRN PRN Reason: Nausea Last Admin: 04/24/23 08:32 Dose: 4 mg Polyethylene Glycol (Polyethylene Glycol 3350 17 Gm Powd.Pack) 17 gm PO DAILY PRN PRN Reason: Constipation Last Admin: 03/30/23 13:46 Dose: 17 gm Quetiapine Fumarate (Quetiapine Fumarate 50 Mg Tablet) 50 mg PO BID PRN PRN Reason: becca, agitation Last Admin: 04/24/23 21:38 Dose: 50 mg Quetiapine Fumarate (Quetiapine Fumarate 25 Mg Tablet) 125 mg PO BEDTIME [facility] Last Admin: 04/25/23 21:25 Dose: 125 mg Thyroid (Thyroid,Pork 30 Mg Tablet) 15 mg PO DAILY@0630 [facility] Last Admin: 04/26/23 06:19 Dose: 15 mg Vitamin D (Cholecalciferol (Vitamin D3) 10 Mcg Tablet) 10 mcg PO DAILY [facility] Last Admin: 04/26/23 08:20 Dose: 10 mcg Zolpidem Tartrate (Zolpidem Tartrate 5 Mg Tablet) 5 mg PO BEDTIME PRN PRN Reason: Insomnia Last Admin: 04/25/23 21:25 Dose: 5 mg Allergies Allergies Allergy/AdvReac Type Severity Reaction Status Date / Time amoxicillin Allergy Unknown Unknown Uncoded 03/25/23 11:07 Pt states no food allergy Allergy Unknown Unknown Uncoded 03/25/23 11:07 Assessment & Plan Assessment & Plan (1) Bipolar affective disorder, manic, severe, with psychotic behavior: Status: Acute Code(s): F31.2 - Bipolar disorder, current episode manic severe with psychotic features Assessment and Plan: 04/12/23 ongoing becca but seems less labile and pressured today- more cooperative with medical care (2) PTSD (post-traumatic stress disorder): Status: Acute Code(s): F43.10 - Post-traumatic stress disorder, unspecified Plan 62 yo female, history of PTSD, Bipolar Disorder with Psychosis, self presents reporting she has stopped medications. She asks to go to [place], however, is willing to work with the team on at this time. She has stopped meds and is willing to re-start. She has several requests regarding meds which were addressed, however, she will be making further requests as her treatment continues. At this time, she reports being controlled by Estefania Mosqueda in all aspects of her life. This has caused great fear and anxiety. Pt has written several pages regarding this issue and is willing to share these. During our meeting she presents with acute becca, feeling overwhelmed with being controlled and vulnerable. Attempted to offer support, structure, safety for pt today. She has been able to appear to move freely in milieu, sing, dance and appears to feel comfortable and safe while settling in. Plan: Re-establish regime, medical and psychiatric Abilify 5 mg daily- pt request this trial, reports effective history. Today, pt has had ambivalence about Miralax order, asking ~7 times to start and stop. As of this writing, she asks that we not put it on her list of meds. Full milieu Collateral contact Diagnostics as needed. 03/28: Continue current regimen and plans 03/29: Continue current regimen and plans. Increased Abilify to 10 mg and Ambien to 10 mg 03/30: Continue current plans and regimen 03/31: Will file Section 7 on 04/01. 04/02/23: DC Seroquel at HS Increase Trazodone to 75 mg HS. [id number] Pollard to stop 04/03. 04/03/23: Increase Abilify to 10 mg bid 04/04: Continue current management and treatment plan. 04/05: check Tegretol level in AM and consider titration based on level and consider titration of Abilify. 04/06: Pt declines Abilify titration at this time. TDN 04/08. 04/08: Section 7, HCP activation 04/09: Encourage treatment with [facility] 04/11/23 continues labile some struggle around diabetes care- 04/12/23 Hold off on Abilify injectable until clear whether or not Abilify will be helpful Abilify 15 mg twice a day morning and after late afternoon Seroquel at bedtime continue Tegretol 04/14/23 Abilify 15 bid seroquel hs encourage change to invega continues psychotic 04/15/23 Depakote 250 bid evaluate response to abilify 04/16/2023 Patient has had no clear response to Abilify floridly delusional early based thinking irritable preoccupied Reportedly had done well in the past on Invega does not wish to retry this discussed restarting therapeutic dose Seroquel which patient did eventually discontinue recently versus Vraylar for manic psychosis which she is agreeable to try 04/17/23 Depakote 250 bid invega po taper abilify 04/17 Patient more organized than she has been in the past. Keg Washer mentioned this and patient agreed saying that her mind is not so racey... Patient actually reading a book today as well Earlier today she initially refused Invega but then decided to take it. She talked with video game script writer saying she thought maybe she should be on Invega and that she should be on Latuda instead however she agreed to continue with Dr. Krueger's plan and did take the Invega and Depakote and said she would continue to do so. Patient expressed and nursing that she was afraid that if she took Invega she would end up on Invega Sustenna, the shot which he does not want. -Continue Depakote 250 mg b.i.d. -Continue Invega -Starting Trulicity today. -Will DC POC qid (but leave a daily POC at patients request); will dc insulin sliding scale; patient has not had blood glucose over 160 despite 4 readings a day and always refuses insulin anyway. 04/18 Today Patient with a little more pressured speech and expressing paranoid delusions than yesterday; has been refusing Seroquel at bedtime. Today had a long list of things that she wanted to communicate some mildly relevant others not; she talked about the [facility] a following her and how she has numerous documents on her laptop proving this, where should she submit these documents etc. -tegretol level therapeutic -associated labs WNL 04/20/23 Inc depakote as tolerated tegretol abilify not helpful inc invega 6 mg daily has pending civil commitment 04/21/23 Pt refusing invega would file for affirmed hcp will try and coordinate with hcp 04/22/23 Increase tegretol to 200 mg a.m. XR and 400 mg XR pm Refused Invega but will continue to offer Asks that hydroxyzine be stopped Ambien 5 mg hs prn Decrease Depakote to 250 mg daily- that is what I will take, take it or leave it. 04/23/23 Discontinue Invega Increase Seroquel to 125 mg HS 04/24/23 Continue tx. 04/25/2023: Continue current regimen and plans. 04/26/2023: Continue current regimen and plans Reason for continued inpatient stay Substantial Risk for: med/psych decompensation Time Spent With Patient Time: Total time managing care of this patient today ____ minutes.
[2023-04-26 18:00] VITALS: BP 139/60; PULSE 93; RESP 19; TEMP 36.8; O2SAT 93
[2023-04-26] MEDS: QUEtiapine Fumarate 25 MG TABLET 125 MG PO (21:09)
[2023-04-26] MEDS: carBAMazepine ER 200 MG TAB.ER.12H 400 MG PO (21:10)
[2023-04-26] MEDS: LORazepam 1 MG TABLET PO (21:10)
[2023-04-26] MEDS: Zolpidem Tartrate 5 MG TABLET PO (21:11)
[2023-04-26] MEDS: Atorvastatin Calcium 40 MG TABLET PO (21:11)
[2023-04-26] MEDS: Milk of Magnesia 30 ML ORAL.SUSP PO (21:36)
[2023-04-27] MEDS: Thyroid,Pork 30 MG TABLET 15 MG PO (06:20)
[2023-04-27 08:00] VITALS: BP 136/59; PULSE 97; RESP 18; TEMP 36.9; O2SAT 95
[2023-04-27 08:28] LABS: Glucose, Whole Blood 110 mg/dL (60-115)
[2023-04-27] MEDS: Magnesium Oxide 400 MG TABLET PO (09:28)
[2023-04-27] MEDS: carBAMazepine ER 200 MG TAB.ER.12H PO (09:28)
[2023-04-27] MEDS: Divalproex Sodium 250 MG TABLET.DR PO (09:28)
[2023-04-27] MEDS: amLODIPine Besylate 2.5 MG TABLET PO (09:28)
[2023-04-27] MEDS: Cholecalciferol (Vitamin D3) 10 MCG TABLET PO (09:28)
[2023-04-27] MEDS: Cyanocobalamin (Vitamin B-12) 100 MCG TABLET PO (09:28)
[2023-04-27] MEDS: Benztropine Mesylate 1 MG TABLET PO (09:28)
[2023-04-27] MEDS: Metoprolol Succinate ER 25 MG TAB.ER.24H PO (09:28)
[2023-04-27] MEDS: Aspirin Enteric Coated 81 MG TABLET.DR PO (09:28)
[2023-04-27] MEDS: Furosemide 20 MG TABLET PO (09:28)
[2023-04-27] MEDS: Ondansetron ODT 4 MG TAB.RAPDIS TRANSLINGU (09:31)
[2023-04-27 18:00] VITALS: BP 164/74; PULSE 99; RESP 16; TEMP 36.4; O2SAT 93
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
[2023-04-27] MEDS: LORazepam 1 MG TABLET PO (21:31)
[2023-04-27] MEDS: QUEtiapine Fumarate 25 MG TABLET 125 MG PO (21:31)
[2023-04-27] MEDS: carBAMazepine ER 200 MG TAB.ER.12H 400 MG PO (21:31)
[2023-04-27] MEDS: Atorvastatin Calcium 40 MG TABLET PO (21:31)
[2023-04-27] MEDS: Zolpidem Tartrate 5 MG TABLET PO (21:31)
[2023-04-28] MEDS: Thyroid,Pork 30 MG TABLET 15 MG PO (06:22)
[2023-04-28 07:49] LABS: Glucose, Whole Blood 120 mg/dL (60-115)
[2023-04-28 08:16] VITALS: BP 127/61; PULSE 99; RESP 16; TEMP 36.9; O2SAT 96
[2023-04-28] MEDS: Magnesium Oxide 400 MG TABLET PO (09:48)
[2023-04-28] MEDS: amLODIPine Besylate 2.5 MG TABLET PO (09:48)
[2023-04-28] MEDS: Metoprolol Succinate ER 25 MG TAB.ER.24H PO (09:48)
[2023-04-28] MEDS: Cholecalciferol (Vitamin D3) 10 MCG TABLET PO (09:48)
[2023-04-28] MEDS: Cyanocobalamin (Vitamin B-12) 100 MCG TABLET PO (09:49)
[2023-04-28] MEDS: Divalproex Sodium 250 MG TABLET.DR PO (09:49)
[2023-04-28] MEDS: carBAMazepine ER 200 MG TAB.ER.12H PO (09:49)
[2023-04-28] MEDS: Aspirin Enteric Coated 81 MG TABLET.DR PO (09:49)
[2023-04-28] MEDS: Benztropine Mesylate 1 MG TABLET PO (09:49)
[2023-04-28] MEDS: Furosemide 20 MG TABLET PO (09:49)
--- NOTE | 2023-04-28 09:58 | P.PNPSI_ITS ---
Subjective Subjective Date of Service: 04/28/23 Reason For Visit: Bipolar Disorder manic psychosis Subjective Notes: Section 7 Healthcare Proxy: Yes Guardianship: No Medical Problems Affecting Mental Status: No Interim History: HCP affirmation hearing 05/05/23 8:30 a.m. Section 7 hearing 05/14/23. Pt today is labile, legally focused, firing her taker off drying kiln, asks tw to represent her in court-education provided regarding [facility] role to treat her properly. She asks if she has committed a crime and will be incarcerated. Education attempted. Pt speaking in different accents/tones today, leaving voice mails-speaking to tw with an K[place]gy[place] accent, [place] accent, Indian accent-rapid paced speech. Re-visited meds. Agrees to increase Seroquel to 200 mg HS, Tegretol XR to 400 mg bid and add Melatonin vs Ambien increase for a one time trial this evening. Significant time spent in attempting to educate and clarify legal situation for pt. She does continue sexually/trauma focused. Medication Compliance: Yes Side effects from medications: No Attending Groups: No Review of Systems Acute medical concerns: No Medical Review of Systems: unchanged Review of Systems Review of Systems Yes all other systems are reviewed and are negative Mental Status Exam Mental Status Exam Patient Appearance: Well Grooomed Patient Orientation: Person, Place and Time Level of Consciousness: Awake Patient Behavior: Talkative and Crying Mood Description: Labile and Apprehensive Affect Description: Labile and Apprehensive Ability to Follow Directions: Good Speech Pattern: Spontaneous Speech and Animated 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) Delusions: Paranoid Ideation Thought Process: Rumination Thought Content: positive for Tangential, positive for Disorganized, negative for Suicidal Ideation or negative for Homicidal Ideation Depressive Symptoms: Increased Anxiety and Increased Irritability Judgement: Poor Diagnostics Vital Signs (24Hr): Vital Signs - 24 hr 04/27/23 18:00 04/28/23 08:16 Temperature 97.6 F 98.5 F Pulse Rate 99 99 Respiratory Rate 16 16 Blood Pressure 164/74 H 127/61 Pulse Oximetry 93 96 Oxygen Delivery Method Room Air Room Air BMI result Body Mass Index 35.7 Labs 04/19/23 07:30 04/19/23 07:30 Labs: Laboratory Results - last 48 hr 04/27/23 04/28/23 08:23 07:45 POC Glucose 110 120 H Medications Medications Current Medications Acetaminophen (Acetaminophen 325 Mg Tablet) 650 mg PO Q6H PRN PRN Reason: Headache/Pain Mild Scale (1-3) Al Hydroxide/Mg Hydroxide (Magnesium Hydrox/Alum Hydrox 30 Ml Oral.Susp) 30 ml PO Q6H PRN PRN Reason: Heartburn/Nausea Last Admin: 04/22/23 21:11 Dose: 30 ml Amlodipine Besylate (Amlodipine Besylate 2.5 Mg Tablet) 2.5 mg PO DAILY [facility]; Protocol Last Admin: 04/28/23 09:48 Dose: 2.5 mg Aspirin (Aspirin Enteric Coated 81 Mg Tablet.) 81 mg PO DAILY [facility] Last Admin: 04/28/23 09:49 Dose: 81 mg Atorvastatin Calcium (Atorvastatin Calcium 40 Mg Tablet) 40 mg PO BEDTIME [facility] Last Admin: 04/27/23 21:31 Dose: 40 mg Benzocaine (Throat Lozenge, Medicated Lozenge) 1 lozenge MUCOUS MEM Q2H PRN PRN Reason: Sore Throat Last Admin: 04/25/23 17:45 Dose: 1 lozenge Benztropine Mesylate (Benztropine Mesylate 1 Mg Tablet) 1 mg PO DAILY [facility] Last Admin: 04/28/23 09:49 Dose: 1 mg Carbamazepine (Carbamazepine Er 200 Mg Tab.Er.12h) 400 mg PO BEDTIME [facility] Last Admin: 04/27/23 21:31 Dose: 400 mg Carbamazepine (Carbamazepine Er 200 Mg Tab.Er.12h) 200 mg PO DAILY [facility] Last Admin: 04/28/23 09:49 Dose: 200 mg Cyanocobalamin (Cyanocobalamin (Vitamin B-12) 100 Mcg Tablet) 100 mcg PO DAILY [facility] Last Admin: 04/28/23 09:49 Dose: 100 mcg Divalproex Sodium (Divalproex Sodium 250 Mg Tablet.) 250 mg PO DAILY [facility] Last Admin: 04/28/23 09:49 Dose: 250 mg Furosemide (Furosemide 20 Mg Tablet) 20 mg PO DAILY [facility]; Protocol Last Admin: 04/28/23 09:49 Dose: 20 mg Lorazepam (Lorazepam 1 Mg Tablet) 1 mg PO BEDTIME [facility] Last Admin: 04/27/23 21:31 Dose: 1 mg Lorazepam (Lorazepam 1 Mg Tablet) 1 mg PO BEDTIME PRN PRN Reason: Insomnia Last Admin: 03/03/24 23:40 Dose: 1 mg Magnesium Hydroxide (Milk Of Magnesia 30 Ml Oral.Susp) 30 ml PO DAILY PRN PRN Reason: Constipation Last Admin: 04/26/23 21:36 Dose: 30 ml Magnesium Oxide (Magnesium Oxide 400 Mg Tablet) 400 mg PO DAILY [facility] Last Admin: 04/28/23 09:48 Dose: 400 mg Metoprolol Succinate (Metoprolol Succinate Er 25 Mg Tab.Er.24h) 25 mg PO DAILY [facility]; Protocol Last Admin: 04/28/23 09:48 Dose: 25 mg Multi-Ingred Medicated Throat Adams (Throat Adams, Medicated 177 Ml Bottle) 1 spray MUCOUS MEM Q2H PRN PRN Reason: Sore Throat Last Admin: 04/23/23 09:11 Dose: 1 spray Pt Own (Trulicity 3 (Mg)) 3 mg SUBCUT Q7D [facility] Last Admin: 04/25/23 12:34 Dose: 3 mg Ondansetron HCl (Ondansetron Odt 4 Mg Tab.Rapdis) 4 mg TRANSLINGU Q6H PRN PRN Reason: Nausea Last Admin: 04/27/23 09:31 Dose: 4 mg Polyethylene Glycol (Polyethylene Glycol 3350 17 Gm Powd.Pack) 17 gm PO DAILY PRN PRN Reason: Constipation Last Admin: 03/30/23 13:46 Dose: 17 gm Quetiapine Fumarate (Quetiapine Fumarate 50 Mg Tablet) 50 mg PO BID PRN PRN Reason: becca, agitation Last Admin: 04/24/23 21:38 Dose: 50 mg Quetiapine Fumarate (Quetiapine Fumarate 25 Mg Tablet) 125 mg PO BEDTIME [facility] Last Admin: 04/27/23 21:31 Dose: 125 mg Thyroid (Thyroid,Pork 30 Mg Tablet) 15 mg PO DAILY@0630 [facility] Last Admin: 04/28/23 06:22 Dose: 15 mg Vitamin D (Cholecalciferol (Vitamin D3) 10 Mcg Tablet) 10 mcg PO DAILY [facility] Last Admin: 04/28/23 09:48 Dose: 10 mcg Zolpidem Tartrate (Zolpidem Tartrate 5 Mg Tablet) 5 mg PO BEDTIME PRN PRN Reason: Insomnia Last Admin: 04/27/23 21:31 Dose: 5 mg Allergies Allergies Allergy/AdvReac Type Severity Reaction Status Date / Time amoxicillin Allergy Unknown Unknown Uncoded 03/25/23 11:07 Pt states no food allergy Allergy Unknown Unknown Uncoded 03/25/23 11:07 Assessment & Plan Assessment & Plan (1) Bipolar affective disorder, manic, severe, with psychotic behavior: Status: Acute Code(s): F31.2 - Bipolar disorder, current episode manic severe with psychotic features Assessment and Plan: 04/12/23 ongoing becca but seems less labile and pressured today- more cooperative with medical care (2) PTSD (post-traumatic stress disorder): Status: Acute Code(s): F43.10 - Post-traumatic stress disorder, unspecified Plan 62 yo female, history of PTSD, Bipolar Disorder with Psychosis, self presents reporting she has stopped medications. She asks to go to [place], however, is willing to work with the team on M5 at this time. She has stopped meds and is willing to re-start. She has several requests regarding meds which were addressed, however, she will be making further requests as her treatment continues. At this time, she reports being controlled by Estefania Mosqueda in all aspects of her life. This has caused great fear and anxiety. Pt has written several pages regarding this issue and is willing to share these. During our meeting she presents with acute becca, feeling overwhelmed with being controlled and vulnerable. Attempted to offer support, structure, safety for pt today. She has been able to appear to move freely in milieu, sing, dance and appears to feel comfortable and safe while settling in. Plan: Re-establish regime, medical and psychiatric Abilify 5 mg daily- pt request this trial, reports effective history. Today, pt has had ambivalence about Miralax order, asking ~7 times to start and stop. As of this writing, she asks that we not put it on her list of meds. Full milieu Collateral contact Diagnostics as needed. 03/28: Continue current regimen and plans 03/29: Continue current regimen and plans. Increased Abilify to 10 mg and Ambien to 10 mg 03/30: Continue current plans and regimen 03/31: Will file Section 7 on 04/01. 04/02/23: DC Seroquel at HS Increase Trazodone to 75 mg HS. MR x1. Ceftin to stop 04/03. 04/03/23: Increase Abilify to 10 mg bid 04/04: Continue current management and treatment plan. 04/05: check Tegretol level in AM and consider titration based on level and consider titration of Abilify. 04/06: Pt declines Abilify titration at this time. TDN 04/08. 04/08: Section 7, HCP activation 04/09: Encourage treatment with [facility] 04/11/23 continues labile some struggle around diabetes care- 04/12/23 Hold off on Abilify injectable until clear whether or not Abilify will be helpful Abilify 15 mg twice a day morning and after late afternoon Seroquel at bedtime continue Tegretol 04/14/23 Abilify 15 bid seroquel hs encourage change to invega continues psychotic 04/15/23 Depakote 250 bid evaluate response to abilify 04/16/2023 Patient has had no clear response to Abilify floridly delusional early based thinking irritable preoccupied Reportedly had done well in the past on Invega does not wish to retry this discussed restarting therapeutic dose Seroquel which patient did eventually discontinue recently versus Vraylar for manic psychosis which she is agreeable to try 04/17/23 Depakote 250 bid invega po taper abilify 04/17 Patient more organized than she has been in the past. Uniform Attendant mentioned this and patient agreed saying that her mind is not so racey... Patient actually reading a book today as well Earlier today she initially refused Invega but then decided to take it. She talked with customs entry writer saying she thought maybe she should be on Invega and that she should be on Latuda instead however she agreed to continue with Dr. Krueger's plan and did take the Invega and Depakote and said she would continue to do so. Patient expressed and nursing that she was afraid that if she took Invega she would end up on Invega Sustenna, the shot which he does not want. -Continue Depakote 250 mg b.i.d. -Continue Invega -Starting Trulicity today. -Will DC POC qid (but leave a daily POC at patients request); will dc insulin sliding scale; patient has not had blood glucose over 160 despite 4 readings a day and always refuses insulin anyway. 04/18 Today Patient with a little more pressured speech and expressing paranoid delusions than yesterday; has been refusing Seroquel at bedtime. Today had a long list of things that she wanted to communicate some mildly relevant others not; she talked about the [facility] a following her and how she has numerous documents on her laptop proving this, where should she submit these documents etc. -tegretol level therapeutic -associated labs WNL 04/20/23 Inc depakote as tolerated tegretol abilify not helpful inc invega 6 mg daily has pending civil commitment 04/21/23 Pt refusing invega would file for affirmed hcp will try and coordinate with hcp 04/22/23 Increase tegretol to 200 mg a.m. XR and 400 mg XR pm Refused Invega but will continue to offer Asks that hydroxyzine be stopped Ambien 5 mg hs prn Decrease Depakote to 250 mg daily- that is what I will take, take it or leave it. 04/23/23 Discontinue Invega Increase Seroquel to 125 mg HS 04/24/23 Continue tx. 04/25/2023: Continue current regimen and plans. 04/26/2023: Continue current regimen and plans. 04/27/23: Increase Seroquel to 200 mg HS Increase Tegretol XR to 400 mg bid Melatonin 6 mg x 1 this evening for trial. Patient educated on: medication risk/benefits and other Informed Consent: further education needed Reason for continued inpatient stay Substantial Risk for: rapid decompensation Time Spent With Patient Time: Total time managing care of this patient today ____ minutes.
[2023-04-28] MEDS: Milk of Magnesia 30 ML ORAL.SUSP PO (16:25)
[2023-04-28 20:00] VITALS: BP 136/74; PULSE 68; RESP 18; TEMP 36.3; O2SAT 96
[2023-04-28] MEDS: carBAMazepine ER 200 MG TAB.ER.12H 400 MG PO (21:29)
[2023-04-28] MEDS: Melatonin 3 MG TABLET 6 MG PO (21:30)
[2023-04-28] MEDS: LORazepam 1 MG TABLET PO (21:30)
[2023-04-28] MEDS: Atorvastatin Calcium 40 MG TABLET PO (21:30)
[2023-04-28] MEDS: QUEtiapine Fumarate 200 MG TABLET PO (21:30)
[2023-04-28] MEDS: Zolpidem Tartrate 5 MG TABLET PO (21:34)
[2023-04-29 07:30] VITALS: BP 141/76; PULSE 91; RESP 15; TEMP 36.6; O2SAT 96
[2023-04-29 08:06] LABS: Glucose, Whole Blood 111 mg/dL (60-115)
[2023-04-29] MEDS: Thyroid,Pork 30 MG TABLET 15 MG PO (08:34)
[2023-04-29] MEDS: Furosemide 20 MG TABLET PO (08:35)
[2023-04-29] MEDS: carBAMazepine ER 200 MG TAB.ER.12H 400 MG PO ×2 (08:35→21:00)
[2023-04-29] MEDS: amLODIPine Besylate 2.5 MG TABLET PO (08:35)
[2023-04-29] MEDS: Cholecalciferol (Vitamin D3) 10 MCG TABLET PO (08:35)
[2023-04-29] MEDS: Magnesium Oxide 400 MG TABLET PO (08:36)
[2023-04-29] MEDS: Cyanocobalamin (Vitamin B-12) 100 MCG TABLET PO (08:36)
[2023-04-29] MEDS: Metoprolol Succinate ER 25 MG TAB.ER.24H PO (08:36)
[2023-04-29] MEDS: Aspirin Enteric Coated 81 MG TABLET.DR PO (08:36)
[2023-04-29] MEDS: Benztropine Mesylate 1 MG TABLET PO (08:36)
--- NOTE | 2023-04-29 16:45 | HO.PSYCHPN ---
Subjective Subjective Date of Service: 04/29/23 Reason For Visit: Bipolar Disorder manic psychosis Subjective Notes: Section 7 Healthcare Proxy: Yes Guardianship: No Medical Problems Affecting Mental Status: No Interim History: Pt received and reviewed HCP activation paperwork from her assigned employee benefits attorney today. She reports that she will change her HCP to her brother only and will not allow her sister to have any part of her care. She asks for her brother to gather a copy of her new HCP which is in her file at home. She asks for discharge and fears if she remains in hospital long enough that she will lose her home as she did once in the past. She is unable to answer questions today, completely focused on HCP and court dates. Medication Compliance: Yes Side effects from medications: No Attending Groups: Yes (returned to group today and did well per team report.) Review of Systems Acute medical concerns: No Medical Review of Systems: unchanged Review of Systems Review of Systems Yes all other systems are reviewed and are negative Mental Status Exam Mental Status Exam Patient Appearance: Well Grooomed Patient Orientation: Person, Place and Time Level of Consciousness: Awake Patient Behavior: Talkative and Crying Mood Description: Labile and Apprehensive Affect Description: Labile and Apprehensive Ability to Follow Directions: Good Speech Pattern: Spontaneous Speech and Animated 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) Delusions: Paranoid Ideation Thought Process: Rumination Thought Content: positive for Tangential, positive for Disorganized, negative for Suicidal Ideation or negative for Homicidal Ideation Depressive Symptoms: Increased Anxiety and Increased Irritability Judgement: Poor Diagnostics Vital Signs (24Hr): Vital Signs - 24 hr 04/28/23 20:00 04/29/23 07:30 Temperature 97.4 F 97.8 F Pulse Rate 68 91 Respiratory Rate 18 15 Blood Pressure 136/74 141/76 H Pulse Oximetry 96 96 Oxygen Delivery Method Room Air Room Air BMI result Body Mass Index 35.7 Labs 04/19/23 07:30 04/19/23 07:30 Labs: Laboratory Results - last 48 hr 04/28/23 04/29/23 07:45 08:02 POC Glucose 120 H 111 Medications Medications Current Medications Acetaminophen (Acetaminophen 325 Mg Tablet) 650 mg PO Q6H PRN PRN Reason: Headache/Pain Mild Scale (1-3) Al Hydroxide/Mg Hydroxide (Magnesium Hydrox/Alum Hydrox 30 Ml Oral.Susp) 30 ml PO Q6H PRN PRN Reason: Heartburn/Nausea Last Admin: 04/22/23 21:11 Dose: 30 ml Amlodipine Besylate (Amlodipine Besylate 2.5 Mg Tablet) 2.5 mg PO DAILY [facility]; Protocol Last Admin: 04/29/23 08:35 Dose: 2.5 mg Aspirin (Aspirin Enteric Coated 81 Mg Tablet.Dr) 81 mg PO DAILY [facility] Last Admin: 04/29/23 08:36 Dose: 81 mg Atorvastatin Calcium (Atorvastatin Calcium 40 Mg Tablet) 40 mg PO BEDTIME [facility] Last Admin: 04/28/23 21:30 Dose: 40 mg Benzocaine (Throat Lozenge, Medicated Lozenge) 1 lozenge MUCOUS MEM Q2H PRN PRN Reason: Sore Throat Last Admin: 04/25/23 17:45 Dose: 1 lozenge Benztropine Mesylate (Benztropine Mesylate 1 Mg Tablet) 1 mg PO DAILY [facility] Last Admin: 04/29/23 08:36 Dose: 1 mg Carbamazepine (Carbamazepine Er 200 Mg Tab.Er.12h) 400 mg PO BID [facility] Last Admin: 04/29/23 08:35 Dose: 400 mg Cyanocobalamin (Cyanocobalamin (Vitamin B-12) 100 Mcg Tablet) 100 mcg PO DAILY [facility] Last Admin: 04/29/23 08:36 Dose: 100 mcg Furosemide (Furosemide 20 Mg Tablet) 20 mg PO DAILY [facility]; Protocol Last Admin: 04/29/23 08:35 Dose: 20 mg Lorazepam (Lorazepam 1 Mg Tablet) 1 mg PO BEDTIME [facility] Last Admin: 04/28/23 21:30 Dose: 1 mg Lorazepam (Lorazepam 1 Mg Tablet) 1 mg PO BEDTIME PRN PRN Reason: Insomnia Last Admin: 04/12/23 23:40 Dose: 1 mg Magnesium Hydroxide (Milk Of Magnesia 30 Ml Oral.Susp) 30 ml PO DAILY PRN PRN Reason: Constipation Last Admin: 04/28/23 16:25 Dose: 30 ml Magnesium Oxide (Magnesium Oxide 400 Mg Tablet) 400 mg PO DAILY [facility] Last Admin: 04/29/23 08:36 Dose: 400 mg Metoprolol Succinate (Metoprolol Succinate Er 25 Mg Tab.Er.24h) 25 mg PO DAILY [facility]; Protocol Last Admin: 04/29/23 08:36 Dose: 25 mg Multi-Ingred Medicated Throat [place] (Throat [place], Medicated 177 Ml Bottle) 1 spray MUCOUS MEM Q2H PRN PRN Reason: Sore Throat Last Admin: 04/23/23 09:11 Dose: 1 spray Pt Own (Trulicity 3 (Mg)) 3 mg SUBCUT Q7D [facility] Last Admin: 04/25/23 12:34 Dose: 3 mg Ondansetron HCl (Ondansetron Odt 4 Mg Tab.Rapdis) 4 mg TRANSLINGU Q6H PRN PRN Reason: Nausea Last Admin: 04/27/23 09:31 Dose: 4 mg Polyethylene Glycol (Polyethylene Glycol 3350 17 Gm Powd.Pack) 17 gm PO DAILY PRN PRN Reason: Constipation Last Admin: 03/30/23 13:46 Dose: 17 gm Quetiapine Fumarate (Quetiapine Fumarate 50 Mg Tablet) 50 mg PO BID PRN PRN Reason: becca, agitation Last Admin: 04/24/23 21:38 Dose: 50 mg Quetiapine Fumarate (Quetiapine Fumarate 200 Mg Tablet) 200 mg PO BEDTIME [facility] Last Admin: 04/28/23 21:30 Dose: 200 mg Thyroid (Thyroid,Pork 30 Mg Tablet) 15 mg PO DAILY@0630 [facility] Last Admin: 04/29/23 08:34 Dose: 15 mg Vitamin D (Cholecalciferol (Vitamin D3) 10 Mcg Tablet) 10 mcg PO DAILY [facility] Last Admin: 04/29/23 08:35 Dose: 10 mcg Zolpidem Tartrate (Zolpidem Tartrate 5 Mg Tablet) 5 mg PO BEDTIME PRN PRN Reason: Insomnia Last Admin: 04/28/23 21:34 Dose: 5 mg Allergies Allergies Allergy/AdvReac Type Severity Reaction Status Date / Time amoxicillin Allergy Unknown Unknown Uncoded 03/25/23 11:07 Pt states no food allergy Allergy Unknown Unknown Uncoded 03/25/23 11:07 Assessment & Plan Assessment & Plan (1) Bipolar affective disorder, manic, severe, with psychotic behavior: Status: Acute Code(s): F31.2 - Bipolar disorder, current episode manic severe with psychotic features Assessment and Plan: 04/12/23 ongoing becca but seems less labile and pressured today- more cooperative with medical care (2) PTSD (post-traumatic stress disorder): Status: Acute Code(s): F43.10 - Post-traumatic stress disorder, unspecified Plan 62 yo female, history of PTSD, Bipolar Disorder with Psychosis, self presents reporting she has stopped medications. She asks to go to [place], however, is willing to work with the team on M5 at this time. She has stopped meds and is willing to re-start. She has several requests regarding meds which were addressed, however, she will be making further requests as her treatment continues. At this time, she reports being controlled by Estefania Mosqueda in all aspects of her life. This has caused great fear and anxiety. Pt has written several pages regarding this issue and is willing to share these. During our meeting she presents with acute becca, feeling overwhelmed with being controlled and vulnerable. Attempted to offer support, structure, safety for pt today. She has been able to appear to move freely in milieu, sing, dance and appears to feel comfortable and safe while settling in. Plan: Re-establish regime, medical and psychiatric Abilify 5 mg daily- pt request this trial, reports effective history. Today, pt has had ambivalence about Miralax order, asking ~7 times to start and stop. As of this writing, she asks that we not put it on her list of meds. Full milieu Collateral contact Diagnostics as needed. 03/28: Continue current regimen and plans 03/29: Continue current regimen and plans. Increased Abilify to 10 mg and Ambien to 10 mg 03/30: Continue current plans and regimen 03/31: Will file Section 7 on 04/01. 04/02/23: DC Seroquel at HS Increase Trazodone to 75 mg HS. MR x1. Ceftin to stop 04/03. 04/03/23: Increase Abilify to 10 mg bid 04/04: Continue current management and treatment plan. 04/05: check Tegretol level in AM and consider titration based on level and consider titration of Abilify. 04/06: Pt declines Abilify titration at this time. TDN 04/08. 04/08: Section 7, HCP activation 04/09: Encourage treatment with [facility] 04/11/23 continues labile some struggle around diabetes care- 04/12/23 Hold off on Abilify injectable until clear whether or not Abilify will be helpful Abilify 15 mg twice a day morning and after late afternoon Seroquel at bedtime continue Tegretol 04/14/23 Abilify 15 bid seroquel hs encourage change to invega continues psychotic 04/15/23 Depakote 250 bid evaluate response to abilify 04/16/2023 Patient has had no clear response to Abilify floridly delusional early based thinking irritable preoccupied Reportedly had done well in the past on Invega does not wish to retry this discussed restarting therapeutic dose Seroquel which patient did eventually discontinue recently versus Vraylar for manic psychosis which she is agreeable to try 04/17/23 Depakote 250 bid invega po taper abilify 04/17 Patient more organized than she has been in the past. Cell Biology Scientist mentioned this and patient agreed saying that her mind is not so racey... Patient actually reading a book today as well Earlier today she initially refused Invega but then decided to take it. She talked with keno writer / runner saying she thought maybe she should be on Invega and that she should be on Latuda instead however she agreed to continue with Dr. Krueger's plan and did take the Invega and Depakote and said she would continue to do so. Patient expressed and nursing that she was afraid that if she took Invega she would end up on Invega Sustenna, the shot which he does not want. -Continue Depakote 250 mg b.i.d. -Continue Invega -Starting Trulicity today. -Will DC POC qid (but leave a daily POC at patients request); will dc insulin sliding scale; patient has not had blood glucose over 160 despite 4 readings a day and always refuses insulin anyway. 04/18 Today Patient with a little more pressured speech and expressing paranoid delusions than yesterday; has been refusing Seroquel at bedtime. Today had a long list of things that she wanted to communicate some mildly relevant others not; she talked about the [employer] a following her and how she has numerous documents on her laptop proving this, where should she submit these documents etc. -tegretol level therapeutic -associated labs WNL 04/20/23 Inc depakote as tolerated tegretol abilify not helpful inc invega 6 mg daily has pending civil commitment 04/21/23 Pt refusing invega would file for affirmed hcp will try and coordinate with hcp 04/22/23 Increase tegretol to 200 mg a.m. XR and 400 mg XR pm Refused Invega but will continue to offer Asks that hydroxyzine be stopped Ambien 5 mg hs prn Decrease Depakote to 250 mg daily- that is what I will take, take it or leave it. 04/23/23 Discontinue Invega Increase Seroquel to 125 mg HS 04/24/23 Continue tx. 04/25/2023: Continue current regimen and plans. 04/26/2023: Continue current regimen and plans. 04/28/23: Increase Seroquel to 200 mg HS Increase Tegretol XR to 400 mg bid Melatonin 6 mg x 1 this evening for trial. 04/29/23: Continue Tx. Patient educated on: therapeutic strategies Informed Consent: does not understand and further education needed Reason for continued inpatient stay Substantial Risk for: rapid decompensation Time Spent With Patient Time: Total time managing care of this patient today ____ minutes.
[2023-04-29 18:40] VITALS: BP 138/66; PULSE 90; RESP 16; TEMP 36.4; O2SAT 94
[2023-04-29] MEDS: Atorvastatin Calcium 40 MG TABLET PO (20:59)
[2023-04-29] MEDS: QUEtiapine Fumarate 200 MG TABLET PO (20:59)
[2023-04-29] MEDS: LORazepam 1 MG TABLET PO (20:59)
[2023-04-29] MEDS: Zolpidem Tartrate 5 MG TABLET PO (21:00)
[2023-04-30] MEDS: Milk of Magnesia 30 ML ORAL.SUSP PO ×2 (02:15→21:45)
[2023-04-30] MEDS: Thyroid,Pork 30 MG TABLET 15 MG PO (05:42)
[2023-04-30 07:00] VITALS: BMI 36.2
[2023-04-30 08:09] LABS: Glucose, Whole Blood 119 mg/dL (60-115)
[2023-04-30 08:21] VITALS: BP 135/68; PULSE 90; RESP 16; TEMP 36.1; O2SAT 94
[2023-04-30] MEDS: Cyanocobalamin (Vitamin B-12) 100 MCG TABLET PO (09:03)
[2023-04-30] MEDS: Metoprolol Succinate ER 25 MG TAB.ER.24H PO (09:03)
[2023-04-30] MEDS: carBAMazepine ER 200 MG TAB.ER.12H 400 MG PO ×2 (09:03→20:44)
[2023-04-30] MEDS: Benztropine Mesylate 1 MG TABLET PO (09:03)
[2023-04-30] MEDS: Magnesium Oxide 400 MG TABLET PO (09:03)
[2023-04-30] MEDS: amLODIPine Besylate 2.5 MG TABLET PO (09:03)
[2023-04-30] MEDS: Aspirin Enteric Coated 81 MG TABLET.DR PO (09:03)
[2023-04-30] MEDS: Furosemide 20 MG TABLET PO (09:03)
[2023-04-30] MEDS: Cholecalciferol (Vitamin D3) 10 MCG TABLET PO (09:03)
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
[2023-04-30 16:50] VITALS: BP 151/75; PULSE 93; RESP 16; TEMP 36.9; O2SAT 95
[2023-04-30] MEDS: Atorvastatin Calcium 40 MG TABLET PO (20:45)
[2023-04-30] MEDS: QUEtiapine Fumarate 200 MG TABLET PO (20:45)
[2023-04-30] MEDS: LORazepam 1 MG TABLET PO (20:45)
[2023-04-30] MEDS: Zolpidem Tartrate 5 MG TABLET PO (20:45)
[2023-05-01] MEDS: Thyroid,Pork 30 MG TABLET 15 MG PO (06:07)
[2023-05-01 08:00] VITALS: BP 152/81; PULSE 94; RESP 18; TEMP 36.9; O2SAT 95
[2023-05-01 08:14] LABS: Glucose, Whole Blood 122 mg/dL (60-115)
[2023-05-01] MEDS: Aspirin Enteric Coated 81 MG TABLET.DR PO (08:19)
[2023-05-01] MEDS: Cyanocobalamin (Vitamin B-12) 100 MCG TABLET PO (08:19)
[2023-05-01] MEDS: Magnesium Oxide 400 MG TABLET PO (08:19)
[2023-05-01] MEDS: Furosemide 20 MG TABLET PO (08:19)
[2023-05-01] MEDS: carBAMazepine ER 200 MG TAB.ER.12H 400 MG PO ×2 (08:19→21:18)
[2023-05-01] MEDS: Metoprolol Succinate ER 25 MG TAB.ER.24H PO (08:19)
[2023-05-01] MEDS: Benztropine Mesylate 1 MG TABLET PO (08:19)
[2023-05-01] MEDS: amLODIPine Besylate 2.5 MG TABLET PO (08:20)
[2023-05-01] MEDS: Cholecalciferol (Vitamin D3) 10 MCG TABLET PO (08:20)
--- NOTE | 2023-05-01 18:35 | P.PNPSI_ITS ---
Subjective Subjective Date of Service: 05/01/23 Reason For Visit: Bipolar Disorder manic psychosis Subjective Notes: Section 7 Healthcare Proxy: Yes (pending 05/04.) Guardianship: No Medical Problems Affecting Mental Status: No Interim History: Daily is positive today. She is pleased team has helped her plan activities for the weekend. We discussed having labs. She prefers tomorrow to Thursday, so we will order levels. No med changes today. Pt is introducing herself to new peers being admitted and offering support to other peers with good boundaries maintained. 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) Delusions: Paranoid Ideation Thought Process: Rumination Thought Content: positive for Tangential, positive for Disorganized, negative for Suicidal Ideation or negative for Homicidal Ideation Depressive Symptoms: Increased Anxiety and Increased Irritability Judgement: Poor Diagnostics Vital Signs (24Hr): Vital Signs - 24 hr 05/01/23 08:00 Temperature 98.4 F Pulse Rate 94 Respiratory Rate 18 Blood Pressure 152/81 H Pulse Oximetry 95 Oxygen Delivery Method Room Air BMI result Body Mass Index 36.2 Labs 04/19/23 07:30 04/19/23 07:30 Labs: Laboratory Results - last 48 hr 04/30/23 05/01/23 08:01 08:06 POC Glucose 119 H 122 H Medications Medications Current Medications Acetaminophen (Acetaminophen 325 Mg Tablet) 650 mg PO Q6H PRN PRN Reason: Headache/Pain Mild Scale (1-3) Al Hydroxide/Mg Hydroxide (Magnesium Hydrox/Alum Hydrox 30 Ml Oral.Susp) 30 ml PO Q6H PRN PRN Reason: Heartburn/Nausea Last Admin: 04/22/23 21:11 Dose: 30 ml Amlodipine Besylate (Amlodipine Besylate 2.5 Mg Tablet) 2.5 mg PO DAILY [facility]; Protocol Last Admin: 05/01/23 08:20 Dose: 2.5 mg Aspirin (Aspirin Enteric Coated 81 Mg Tablet.Dr) 81 mg PO DAILY [facility] Last Admin: 05/01/23 08:19 Dose: 81 mg Atorvastatin Calcium (Atorvastatin Calcium 40 Mg Tablet) 40 mg PO BEDTIME [facility] Last Admin: 04/30/23 20:45 Dose: 40 mg Benzocaine (Throat Lozenge, Medicated Lozenge) 1 lozenge MUCOUS MEM Q2H PRN PRN Reason: Sore Throat Last Admin: 04/25/23 17:45 Dose: 1 lozenge Benztropine Mesylate (Benztropine Mesylate 1 Mg Tablet) 1 mg PO DAILY [facility] Last Admin: 05/01/23 08:19 Dose: 1 mg Carbamazepine (Carbamazepine Er 200 Mg Tab.Er.12h) 400 mg PO BID [facility] Last Admin: 05/01/23 08:19 Dose: 400 mg Cyanocobalamin (Cyanocobalamin (Vitamin B-12) 100 Mcg Tablet) 100 mcg PO DAILY [facility] Last Admin: 05/01/23 08:19 Dose: 100 mcg Furosemide (Furosemide 20 Mg Tablet) 20 mg PO DAILY [facility]; Protocol Last Admin: 05/01/23 08:19 Dose: 20 mg Lorazepam (Lorazepam 1 Mg Tablet) 1 mg PO BEDTIME [facility] Last Admin: 04/30/23 20:45 Dose: 1 mg Lorazepam (Lorazepam 1 Mg Tablet) 1 mg PO BEDTIME PRN PRN Reason: Insomnia Last Admin: 04/12/23 23:40 Dose: 1 mg Magnesium Hydroxide (Milk Of Magnesia 30 Ml Oral.Susp) 30 ml PO DAILY PRN PRN Reason: Constipation Last Admin: 04/30/23 21:45 Dose: 30 ml Magnesium Oxide (Magnesium Oxide 400 Mg Tablet) 400 mg PO DAILY [facility] Last Admin: 05/01/23 08:19 Dose: 400 mg Metoprolol Succinate (Metoprolol Succinate Er 25 Mg Tab.Er.24h) 25 mg PO DAILY [facility]; Protocol Last Admin: 05/01/23 08:19 Dose: 25 mg Multi-Ingred Medicated Throat [place] (Throat [place], Medicated 177 Ml Bottle) 1 spray MUCOUS MEM Q2H PRN PRN Reason: Sore Throat Last Admin: 04/23/23 09:11 Dose: 1 spray Pt Own (Trulicity 3 (Mg)) 3 mg SUBCUT Q7D [facility] Last Admin: 04/25/23 12:34 Dose: 3 mg Ondansetron HCl (Ondansetron Odt 4 Mg Tab.Rapdis) 4 mg TRANSLINGU Q6H PRN PRN Reason: Nausea Last Admin: 04/27/23 09:31 Dose: 4 mg Polyethylene Glycol (Polyethylene Glycol 3350 17 Gm Powd.Pack) 17 gm PO DAILY PRN PRN Reason: Constipation Last Admin: 03/30/23 13:46 Dose: 17 gm Quetiapine Fumarate (Quetiapine Fumarate 50 Mg Tablet) 50 mg PO BID PRN PRN Reason: becca, agitation Last Admin: 04/24/23 21:38 Dose: 50 mg Quetiapine Fumarate (Quetiapine Fumarate 200 Mg Tablet) 200 mg PO BEDTIME [facility] Last Admin: 04/30/23 20:45 Dose: 200 mg Thyroid (Thyroid,Pork 30 Mg Tablet) 15 mg PO DAILY@0630 [facility] Last Admin: 05/01/23 06:07 Dose: 15 mg Vitamin D (Cholecalciferol (Vitamin D3) 10 Mcg Tablet) 10 mcg PO DAILY [facility] Last Admin: 05/01/23 08:20 Dose: 10 mcg Zolpidem Tartrate (Zolpidem Tartrate 5 Mg Tablet) 5 mg PO BEDTIME PRN PRN Reason: Insomnia Last Admin: 04/30/23 20:45 Dose: 5 mg Allergies Allergies Allergy/AdvReac Type Severity Reaction Status Date / Time amoxicillin Allergy Unknown Unknown Uncoded 03/25/23 11:07 Pt states no food allergy Allergy Unknown Unknown Uncoded 03/25/23 11:07 Assessment & Plan Assessment & Plan (1) Bipolar affective disorder, manic, severe, with psychotic behavior: Status: Acute Code(s): F31.2 - Bipolar disorder, current episode manic severe with psychotic features Assessment and Plan: 04/12/23 ongoing becca but seems less labile and pressured today- more cooperative with medical care (2) PTSD (post-traumatic stress disorder): Status: Acute Code(s): F43.10 - Post-traumatic stress disorder, unspecified Plan 62 yo female, history of PTSD, Bipolar Disorder with Psychosis, self presents reporting she has stopped medications. She asks to go to [facility], however, is willing to work with the team on at this time. She has stopped meds and is willing to re-start. She has several requests regarding meds which were addressed, however, she will be making further requests as her treatment continues. At this time, she reports being controlled by Estefania Mosqueda in all aspects of her life. This has caused great fear and anxiety. Pt has written several pages regarding this issue and is willing to share these. During our meeting she presents with acute becca, feeling overwhelmed with being controlled and vulnerable. Attempted to offer support, structure, safety for pt today. She has been able to appear to move freely in milieu, sing, dance and appears to feel comfortable and safe while settling in. Plan: Re-establish regime, medical and psychiatric Abilify 5 mg daily- pt request this trial, reports effective history. Today, pt has had ambivalence about Miralax order, asking ~7 times to start and stop. As of this writing, she asks that we not put it on her list of meds. Full milieu Collateral contact Diagnostics as needed. 03/28: Continue current regimen and plans 03/29: Continue current regimen and plans. Increased Abilify to 10 mg and Ambien to 10 mg 03/30: Continue current plans and regimen 03/31: Will file Section 7 on 04/01. 04/02/23: DC Seroquel at HS Increase Trazodone to 75 mg HS. MR x1. Atul to stop 04/03. 04/03/23: Increase Abilify to 10 mg bid 04/04: Continue current management and treatment plan. 04/05: check Tegretol level in AM and consider titration based on level and consider titration of Abilify. 04/06: Pt declines Abilify titration at this time. TDN 04/08. 04/08: Section 7, HCP activation 04/09: Encourage treatment with [facility] 04/11/23 continues labile some struggle around diabetes care- 04/12/23 Hold off on Abilify injectable until clear whether or not Abilify will be helpful Abilify 15 mg twice a day morning and after late afternoon Seroquel at bedtime continue Tegretol 04/14/23 Abilify 15 bid seroquel hs encourage change to invega continues psychotic 04/15/23 Depakote 250 bid evaluate response to abilify 04/16/2023 Patient has had no clear response to Abilify floridly delusional early based thinking irritable preoccupied Reportedly had done well in the past on Invega does not wish to retry this discussed restarting therapeutic dose Seroquel which patient did eventually discontinue recently versus Vraylar for manic psychosis which she is agreeable to try 04/17/23 Depakote 250 bid invega po taper abilify 04/17 Patient more organized than she has been in the past. Diagnostic Radiologic Technologist mentioned this and patient agreed saying that her mind is not so racey... Patient actually reading a book today as well Earlier today she initially refused Invega but then decided to take it. She talked with board writer saying she thought maybe she should be on Invega and that she should be on Latuda instead however she agreed to continue with Dr. Krueger's plan and did take the Invega and Depakote and said she would continue to do so. Patient expressed and nursing that she was afraid that if she took Invega she would end up on Invega Sustenna, the shot which he does not want. -Continue Depakote 250 mg b.i.d. -Continue Invega -Starting Trulicity today. -Will DC POC qid (but leave a daily POC at patients request); will dc insulin sliding scale; patient has not had blood glucose over 160 despite 4 readings a day and always refuses insulin anyway. 04/18 Today Patient with a little more pressured speech and expressing paranoid delusions than yesterday; has been refusing Seroquel at bedtime. Today had a long list of things that she wanted to communicate some mildly relevant others not; she talked about the [facility] a following her and how she has numerous documents on her laptop proving this, where should she submit these documents etc. -tegretol level therapeutic -associated labs WNL 04/20/23 Inc depakote as tolerated tegretol abilify not helpful inc invega 6 mg daily has pending civil commitment 04/21/23 Pt refusing invega would file for affirmed hcp will try and coordinate with hcp 04/22/23 Increase tegretol to 200 mg a.m. XR and 400 mg XR pm Refused Invega but will continue to offer Asks that hydroxyzine be stopped Ambien 5 mg hs prn Decrease Depakote to 250 mg daily- that is what I will take, take it or leave it. 04/23/23 Discontinue Invega Increase Seroquel to 125 mg HS 04/24/23 Continue tx. 04/25/2023: Continue current regimen and plans. 04/26/2023: Continue current regimen and plans. 04/28/23: Increase Seroquel to 200 mg HS Increase Tegretol XR to 400 mg bid Melatonin 6 mg x 1 this evening for trial. 04/29/23: Continue Tx. 04/30/23: Continue Tx. 05/01/23: Continue Tx. Diagnostics in the a.m. Patient educated on: therapeutic strategies Informed Consent: further education needed Reason for continued inpatient stay Substantial Risk for: rapid decompensation Time Spent With Patient Time: Total time managing care of this patient today ____ minutes.
[2023-05-01] MEDS: Milk of Magnesia 30 ML ORAL.SUSP PO (19:58)
[2023-05-01 20:45] VITALS: BP 148/78; PULSE 74; RESP 18; TEMP 36.6; O2SAT 97
[2023-05-01] MEDS: QUEtiapine Fumarate 200 MG TABLET PO (21:18)
[2023-05-01] MEDS: LORazepam 1 MG TABLET PO (21:18)
[2023-05-01] MEDS: Atorvastatin Calcium 40 MG TABLET PO (21:18)
[2023-05-01] MEDS: Zolpidem Tartrate 5 MG TABLET PO (21:20)
[2023-05-01] MEDS: Melatonin 3 MG TABLET 6 MG PO (21:32)
[2023-05-02] MEDS: Thyroid,Pork 30 MG TABLET 15 MG PO (06:15)
[2023-05-02 06:46] LABS: Glucose, Whole Blood 94 mg/dL (60-115)
[2023-05-02 07:36] LABS: MANUAL DIFF FLAG NO
[2023-05-02 07:38] LABS: Basophils Percent Auto 0.3 % (0-2); Eosinophils Absolute Auto 0.3 X10*3/uL (0.0-0.4); Eosinophils Percent Auto 2.2 % (0-4); Hematocrit 40.3 % (37.0-47.0); Hemoglobin 13.2 g/dl (12.0-16.0); Imm Gran Abs Auto 0.14 X10*3/uL (0.00-0.03); Imm Gran Pct Auto 1.2 % (0.0-0.4); Lymphocytes Absolute Auto 4.3 X10*3/uL (1.2-4.9); Lymphocytes Percent Auto 36.3 % (20-40); Mean Corpuscular HGB Conc 32.8 g/dl (31.0-35.0); Mean Corpuscular Hemoglobin 30.9 pg (27.0-33.0); Mean Corpuscular Volume 94.4 fL (80.0-98.0); Mean Platelet Volume 9.8 fL (9.4-12.3); Monocytes Absolute Auto 0.8 X10*3/uL (0.1-1.2); Monocytes Percent Auto 6.8 % (2-11); NRBC Pct Auto 0.2 /100WBC (0.0-0.2); Neutrophils Absolute Auto 6.3 x10*3/uL (2.0-8.3); Neutrophils Percent Auto 53.2 % (45-73); Platelet Count 211 X10*3/uL (160-400); Red Blood Count 4.27 X10*6/uL (4.20-5.50); Red Cell Distribution Width 13.2 % (11.0-16.0); White Blood Count 11.8 X10*3/uL (4.8-10.8)
[2023-05-02 07:52] LABS: Carbamazepine Tegretol 11.3 mcg/mL (5.0-12.0)
[2023-05-02 08:00] VITALS: BP 137/74; PULSE 90; RESP 18; TEMP 36.4; O2SAT 95
[2023-05-02 08:01] LABS: Alanine Aminotransferase 30 U/L (0-31); Albumin Level 3.9 g/dL (3.5-5.0); Alkaline Phosphatase 81 U/L (39-117); Anion Gap 13 (12-20); Aspartate Amino Transferase 21 U/L (5-31); Bilirubin Total 0.3 mg/dL (0.0-1.0); Blood Urea Nitrogen 11 mg/dL (9-16); Calcium 9.9 mg/dL (8.4-10.2); Carbon Dioxide 30 mmol/L (22-29); Chloride 102 mmol/L (96-108); Creatinine Clr Calc Pharmacy 112.3; Estimated Glomerular Filt Rate > 60; Glucose Random 126 mg/dL (60-115); Potassium 5.2 mmol/L (3.3-5.1); Sodium 140 mmol/L (135-145); Total Protein 6.8 g/dL (6.5-8.0)
[2023-05-02 08:15] LABS: Thyroid Stimulating Hormone 2.85 uIU/mL (0.32-4.0)
[2023-05-02] MEDS: Cholecalciferol (Vitamin D3) 10 MCG TABLET PO (08:57)
[2023-05-02] MEDS: Furosemide 20 MG TABLET PO (08:57)
[2023-05-02] MEDS: Benztropine Mesylate 1 MG TABLET PO (08:57)
[2023-05-02] MEDS: Aspirin Enteric Coated 81 MG TABLET.DR PO (08:57)
[2023-05-02] MEDS: carBAMazepine ER 200 MG TAB.ER.12H 400 MG PO ×2 (08:57→20:37)
[2023-05-02] MEDS: Magnesium Oxide 400 MG TABLET PO (08:57)
[2023-05-02] MEDS: amLODIPine Besylate 2.5 MG TABLET PO ×2 (08:58→18:32)
[2023-05-02] MEDS: Metoprolol Succinate ER 25 MG TAB.ER.24H PO (08:58)
[2023-05-02] MEDS: Cyanocobalamin (Vitamin B-12) 100 MCG TABLET PO (08:58)
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
[2023-05-02 17:38] VITALS: BP 190/116; PULSE 93; RESP 16; TEMP 36.4; O2SAT 98
--- NOTE | 2023-05-02 17:50 | PC.NURSE ---
Daily [place] BP 190/116 Hr 93 - this was checked with automated cuff by PC. I went to recheck with manual - pt refused. She denies headache, chest pain, etc. This is far out of range for her. She will not consider a recheck with either manual or automated. I am fine tierra you are wrong - that's normal for me. She is taking over any education I attempt to provide. To prevent further agitation I left pt's room. Dr Krueger informed.
[2023-05-02] MEDS: Atorvastatin Calcium 40 MG TABLET PO (20:37)
[2023-05-02] MEDS: LORazepam 1 MG TABLET PO (20:37)
[2023-05-02] MEDS: Magnesium Hydrox/Alum Hydrox 30 ML ORAL.SUSP PO (20:37)
[2023-05-02] MEDS: QUEtiapine Fumarate 200 MG TABLET PO (20:37)
[2023-05-02] MEDS: Melatonin 3 MG TABLET 6 MG PO (20:38)
[2023-05-02] MEDS: Zolpidem Tartrate 5 MG TABLET PO (21:28)
[2023-05-03] MEDS: Thyroid,Pork 30 MG TABLET 15 MG PO (06:30)
[2023-05-03 08:00] VITALS: BP 171/79; PULSE 100; RESP 20; TEMP 36.8; O2SAT 95
[2023-05-03 08:01] LABS: Glucose, Whole Blood 148 mg/dL (60-115)
[2023-05-03] MEDS: amLODIPine Besylate 2.5 MG TABLET PO (08:46)
[2023-05-03] MEDS: Furosemide 20 MG TABLET PO (08:46)
[2023-05-03] MEDS: Cholecalciferol (Vitamin D3) 10 MCG TABLET PO (08:46)
[2023-05-03] MEDS: Aspirin Enteric Coated 81 MG TABLET.DR PO (08:46)
[2023-05-03] MEDS: Metoprolol Succinate ER 25 MG TAB.ER.24H PO (08:46)
[2023-05-03] MEDS: carBAMazepine ER 200 MG TAB.ER.12H 400 MG PO ×2 (08:46→21:51)
[2023-05-03] MEDS: Magnesium Oxide 400 MG TABLET PO (08:47)
[2023-05-03] MEDS: Benztropine Mesylate 1 MG TABLET PO (08:47)
[2023-05-03] MEDS: Cyanocobalamin (Vitamin B-12) 100 MCG TABLET PO (08:47)
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
[2023-05-03] MEDS: QUEtiapine Fumarate 200 MG TABLET PO (21:51)
[2023-05-03] MEDS: Melatonin 3 MG TABLET 6 MG PO (21:51)
[2023-05-03] MEDS: Atorvastatin Calcium 40 MG TABLET PO (21:51)
[2023-05-03] MEDS: LORazepam 1 MG TABLET PO (21:52)
[2023-05-03] MEDS: Zolpidem Tartrate 5 MG TABLET PO (21:59)
[2023-05-04] MEDS: Thyroid,Pork 30 MG TABLET 15 MG PO (06:24)
[2023-05-04 08:00] VITALS: BP 130/72; PULSE 93; TEMP 36.9; O2SAT 94
[2023-05-04 08:10] LABS: Glucose, Whole Blood 135 mg/dL (60-115)
[2023-05-04] MEDS: Metoprolol Succinate ER 25 MG TAB.ER.24H PO (08:12)
[2023-05-04] MEDS: Furosemide 20 MG TABLET PO (08:12)
[2023-05-04] MEDS: Cholecalciferol (Vitamin D3) 10 MCG TABLET PO (08:13)
[2023-05-04] MEDS: carBAMazepine ER 200 MG TAB.ER.12H 400 MG PO ×2 (08:13→21:28)
[2023-05-04] MEDS: Magnesium Oxide 400 MG TABLET PO (08:13)
[2023-05-04] MEDS: Cyanocobalamin (Vitamin B-12) 100 MCG TABLET PO (08:13)
[2023-05-04] MEDS: Aspirin Enteric Coated 81 MG TABLET.DR PO (08:13)
[2023-05-04] MEDS: Benztropine Mesylate 1 MG TABLET PO (08:13)
[2023-05-04] MEDS: amLODIPine Besylate 2.5 MG TABLET PO (08:13)
--- NOTE | 2023-05-04 10:45 | HO.PSYCHPN ---
Subjective Subjective Date of Service: 05/04/23 Reason For Visit: Bipolar Disorder manic psychosis Subjective Notes: Section 7 Healthcare Proxy: Yes (pending 05/04 for affirmation hearing) Guardianship: No Medical Problems Affecting Mental Status: No Interim History: Daily with increase in PTSD sx and paranoia today. She has written a document which she asks not be read by team and does ask that it be faxed to [place] [employer]. She was given mailing supplies as policy will not allow non emergent faxes to critical agencies to allow lines to be open for community emergencies. This was explained to pt by team and tw. Expressed anger, accusatory of tw not being on her side. Asks for FBI and [employer] to be contacted immediately. Again explained our not being able to contact them with non emergent issues. Mailing supplies were offered to pt. She discussed several people she reports she has worked with and their dishonesty in dealing with her and their motives, sexual in nature. At times, pt's accent, tone, dialect changes. She is unable to reality test, proceeds with discusion of her plan and is not able to process when reality testing is attempted. She completed the day with anger, stating you are fired and I am going to Dr. Orellana who will carry this investigation out for me. Again, she is unable to process a different perspective. 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) Delusions: Paranoid Ideation Thought Process: Rumination Thought Content: positive for Tangential, positive for Disorganized, negative for Suicidal Ideation or negative for Homicidal Ideation Depressive Symptoms: Increased Anxiety and Increased Irritability Judgement: Poor Diagnostics Vital Signs (24Hr): Vital Signs - 24 hr 05/04/23 08:00 Temperature 98.4 F Pulse Rate 93 Blood Pressure 130/72 Pulse Oximetry 94 BMI result Body Mass Index 36.2 Labs 05/02/23 07:22 05/02/23 07:22 Labs: Laboratory Results - last 48 hr 05/03/23 05/04/23 07:49 08:06 POC Glucose 148 H 135 H Medications Medications Current Medications Acetaminophen (Acetaminophen 325 Mg Tablet) 650 mg PO Q6H PRN PRN Reason: Headache/Pain Mild Scale (1-3) Al Hydroxide/Mg Hydroxide (Magnesium Hydrox/Alum Hydrox 30 Ml Oral.Susp) 30 ml PO Q6H PRN PRN Reason: Heartburn/Nausea Last Admin: 05/02/23 20:37 Dose: 30 ml Amlodipine Besylate (Amlodipine Besylate 2.5 Mg Tablet) 2.5 mg PO DAILY [facility]; Protocol Last Admin: 05/04/23 08:13 Dose: 2.5 mg Aspirin (Aspirin Enteric Coated 81 Mg Tablet.Dr) 81 mg PO DAILY [facility] Last Admin: 05/04/23 08:13 Dose: 81 mg Atorvastatin Calcium (Atorvastatin Calcium 40 Mg Tablet) 40 mg PO BEDTIME [facility] Last Admin: 05/03/23 21:51 Dose: 40 mg Benzocaine (Throat Lozenge, Medicated Lozenge) 1 lozenge MUCOUS MEM Q2H PRN PRN Reason: Sore Throat Last Admin: 04/25/23 17:45 Dose: 1 lozenge Benztropine Mesylate (Benztropine Mesylate 1 Mg Tablet) 1 mg PO DAILY [facility] Last Admin: 05/04/23 08:13 Dose: 1 mg Carbamazepine (Carbamazepine Er 200 Mg Tab.Er.12h) 400 mg PO BID [facility] Last Admin: 05/04/23 08:13 Dose: 400 mg Cyanocobalamin (Cyanocobalamin (Vitamin B-12) 100 Mcg Tablet) 100 mcg PO DAILY [facility] Last Admin: 05/04/23 08:13 Dose: 100 mcg Furosemide (Furosemide 20 Mg Tablet) 20 mg PO DAILY [facility]; Protocol Last Admin: 05/04/23 08:12 Dose: 20 mg Lorazepam (Lorazepam 1 Mg Tablet) 1 mg PO BEDTIME [facility] Last Admin: 05/03/23 21:52 Dose: 1 mg Lorazepam (Lorazepam 1 Mg Tablet) 1 mg PO BEDTIME PRN PRN Reason: Insomnia Last Admin: 04/12/23 23:40 Dose: 1 mg Magnesium Hydroxide (Milk Of Magnesia 30 Ml Oral.Susp) 30 ml PO DAILY PRN PRN Reason: Constipation Last Admin: 05/01/23 19:58 Dose: 30 ml Magnesium Oxide (Magnesium Oxide 400 Mg Tablet) 400 mg PO DAILY [facility] Last Admin: 05/04/23 08:13 Dose: 400 mg Melatonin (Melatonin 3 Mg Tablet) 6 mg PO BEDTIME [facility] Last Admin: 05/03/23 21:51 Dose: 6 mg Metoprolol Succinate (Metoprolol Succinate Er 25 Mg Tab.Er.24h) 25 mg PO DAILY [facility]; Protocol Last Admin: 05/04/23 08:12 Dose: 25 mg Multi-Ingred Medicated Throat [place] (Throat [place], Medicated 177 Ml Bottle) 1 spray MUCOUS MEM Q2H PRN PRN Reason: Sore Throat Last Admin: 04/23/23 09:11 Dose: 1 spray Pt Own (Trulicity 3 (Mg)) 3 mg SUBCUT Q7D [facility] Last Admin: 05/02/23 11:58 Dose: 3 mg Ondansetron HCl (Ondansetron Odt 4 Mg Tab.Rapdis) 4 mg TRANSLINGU Q6H PRN PRN Reason: Nausea Last Admin: 04/27/23 09:31 Dose: 4 mg Polyethylene Glycol (Polyethylene Glycol 3350 17 Gm Powd.Pack) 17 gm PO DAILY PRN PRN Reason: Constipation Last Admin: 03/30/23 13:46 Dose: 17 gm Quetiapine Fumarate (Quetiapine Fumarate 50 Mg Tablet) 50 mg PO BID PRN PRN Reason: becca, agitation Last Admin: 04/24/23 21:38 Dose: 50 mg Quetiapine Fumarate (Quetiapine Fumarate 200 Mg Tablet) 200 mg PO BEDTIME [facility] Last Admin: 05/03/23 21:51 Dose: 200 mg Thyroid (Thyroid,Pork 30 Mg Tablet) 15 mg PO DAILY@0630 [facility] Last Admin: 05/04/23 06:24 Dose: 15 mg Vitamin D (Cholecalciferol (Vitamin D3) 10 Mcg Tablet) 10 mcg PO DAILY [facility] Last Admin: 05/04/23 08:13 Dose: 10 mcg Zolpidem Tartrate (Zolpidem Tartrate 5 Mg Tablet) 5 mg PO BEDTIME PRN PRN Reason: Insomnia Last Admin: 05/03/23 21:59 Dose: 5 mg Allergies Allergies Allergy/AdvReac Type Severity Reaction Status Date / Time amoxicillin Allergy Unknown Unknown Uncoded 03/25/23 11:07 Pt states no food allergy Allergy Unknown Unknown Uncoded 03/25/23 11:07 Assessment & Plan Assessment & Plan (1) Bipolar affective disorder, manic, severe, with psychotic behavior: Status: Acute Code(s): F31.2 - Bipolar disorder, current episode manic severe with psychotic features Assessment and Plan: 04/12/23 ongoing becca but seems less labile and pressured today- more cooperative with medical care (2) PTSD (post-traumatic stress disorder): Status: Acute Code(s): F43.10 - Post-traumatic stress disorder, unspecified Plan 62 yo female, history of PTSD, Bipolar Disorder with Psychosis, self presents reporting she has stopped medications. She asks to go to [place], however, is willing to work with the team on M5 at this time. She has stopped meds and is willing to re-start. She has several requests regarding meds which were addressed, however, she will be making further requests as her treatment continues. At this time, she reports being controlled by Estefania Mosqueda in all aspects of her life. This has caused great fear and anxiety. Pt has written several pages regarding this issue and is willing to share these. During our meeting she presents with acute becca, feeling overwhelmed with being controlled and vulnerable. Attempted to offer support, structure, safety for pt today. She has been able to appear to move freely in milieu, sing, dance and appears to feel comfortable and safe while settling in. Plan: Re-establish regime, medical and psychiatric Abilify 5 mg daily- pt request this trial, reports effective history. Today, pt has had ambivalence about Miralax order, asking ~7 times to start and stop. As of this writing, she asks that we not put it on her list of meds. Full milieu Collateral contact Diagnostics as needed. 03/28: Continue current regimen and plans 03/29: Continue current regimen and plans. Increased Abilify to 10 mg and Ambien to 10 mg 03/30: Continue current plans and regimen 03/31: Will file Section 7 on 04/01. 04/02/23: DC Seroquel at HS Increase Trazodone to 75 mg HS. MR x1. Ceftin to stop 04/03. 04/03/23: Increase Abilify to 10 mg bid 04/04: Continue current management and treatment plan. 04/05: check Tegretol level in AM and consider titration based on level and consider titration of Abilify. 04/06: Pt declines Abilify titration at this time. TDN 04/08. 04/08: Section 7, HCP activation 04/09: Encourage treatment with [facility] 04/11/23 continues labile some struggle around diabetes care- 04/12/23 Hold off on Abilify injectable until clear whether or not Abilify will be helpful Abilify 15 mg twice a day morning and after late afternoon Seroquel at bedtime continue Tegretol 04/14/23 Abilify 15 bid seroquel hs encourage change to invega continues psychotic 04/15/23 Depakote 250 bid evaluate response to abilify 04/16/2023 Patient has had no clear response to Abilify floridly delusional early based thinking irritable preoccupied Reportedly had done well in the past on Invega does not wish to retry this discussed restarting therapeutic dose Seroquel which patient did eventually discontinue recently versus Vraylar for manic psychosis which she is agreeable to try 04/17/23 Depakote 250 bid invega po taper abilify 04/17 Patient more organized than she has been in the past. Director Manufacturing Engineering mentioned this and patient agreed saying that her mind is not so racey... Patient actually reading a book today as well Earlier today she initially refused Invega but then decided to take it. She talked with newswriter saying she thought maybe she should be on Invega and that she should be on Latuda instead however she agreed to continue with Dr. Krueger's plan and did take the Invega and Depakote and said she would continue to do so. Patient expressed and nursing that she was afraid that if she took Invega she would end up on Invega Sustenna, the shot which he does not want. -Continue Depakote 250 mg b.i.d. -Continue Invega -Starting Trulicity today. -Will DC POC qid (but leave a daily POC at patients request); will dc insulin sliding scale; patient has not had blood glucose over 160 despite 4 readings a day and always refuses insulin anyway. 04/18 Today Patient with a little more pressured speech and expressing paranoid delusions than yesterday; has been refusing Seroquel at bedtime. Today had a long list of things that she wanted to communicate some mildly relevant others not; she talked about the [employer] a following her and how she has numerous documents on her laptop proving this, where should she submit these documents etc. -tegretol level therapeutic -associated labs WNL 04/20/23 Inc depakote as tolerated tegretol abilify not helpful inc invega 6 mg daily has pending civil commitment 04/21/23 Pt refusing invega would file for affirmed hcp will try and coordinate with hcp 04/22/23 Increase tegretol to 200 mg a.m. XR and 400 mg XR pm Refused Invega but will continue to offer Asks that hydroxyzine be stopped Ambien 5 mg hs prn Decrease Depakote to 250 mg daily- that is what I will take, take it or leave it. 04/23/23 Discontinue Invega Increase Seroquel to 125 mg HS 04/24/23 Continue tx. 04/25/2023: Continue current regimen and plans. 04/26/2023: Continue current regimen and plans. 04/28/23: Increase Seroquel to 200 mg HS Increase Tegretol XR to 400 mg bid Melatonin 6 mg x 1 this evening for trial. 04/29/23: Continue Tx. 04/30/23: Continue Tx. 05/01/23: Continue Tx. Diagnostics in the a.m. 05/02/23: continue current management and treatment plan. 05/02: continue current management and treatment plan. 05/03: Court to hear HCP affirmation on 05/04. Continue current regime. Patient educated on: therapeutic strategies Informed Consent: does not understand Reason for continued inpatient stay Substantial Risk for: rapid decompensation Time Spent With Patient Time: Total time managing care of this patient today ____ minutes.
[2023-05-04 17:20] VITALS: BP 166/77; PULSE 101; RESP 16; TEMP 36.7; O2SAT 94
[2023-05-04] MEDS: QUEtiapine Fumarate 200 MG TABLET PO (21:27)
[2023-05-04] MEDS: Atorvastatin Calcium 40 MG TABLET PO (21:27)
[2023-05-04] MEDS: LORazepam 1 MG TABLET PO (21:27)
[2023-05-04] MEDS: Melatonin 3 MG TABLET 6 MG PO (21:27)
[2023-05-04] MEDS: Zolpidem Tartrate 5 MG TABLET PO (21:28)
[2023-05-04] MEDS: Milk of Magnesia 30 ML ORAL.SUSP PO (22:23)
[2023-05-05] MEDS: Thyroid,Pork 30 MG TABLET 15 MG PO (06:00)
[2023-05-05 08:04] LABS: Glucose, Whole Blood 142 mg/dL (60-115)
[2023-05-05] MEDS: Benztropine Mesylate 1 MG TABLET PO (08:34)
[2023-05-05] MEDS: carBAMazepine ER 200 MG TAB.ER.12H 400 MG PO ×2 (08:34→21:06)
[2023-05-05] MEDS: Furosemide 20 MG TABLET PO (08:35)
[2023-05-05] MEDS: amLODIPine Besylate 2.5 MG TABLET PO (08:35)
[2023-05-05] MEDS: Cholecalciferol (Vitamin D3) 10 MCG TABLET PO (08:35)
[2023-05-05] MEDS: Magnesium Oxide 400 MG TABLET PO (08:35)
[2023-05-05] MEDS: Cyanocobalamin (Vitamin B-12) 100 MCG TABLET PO (08:35)
[2023-05-05] MEDS: Metoprolol Succinate ER 25 MG TAB.ER.24H PO (08:35)
[2023-05-05] MEDS: Aspirin Enteric Coated 81 MG TABLET.DR PO (08:35)
[2023-05-05 08:38] VITALS: BP 151/81; PULSE 105; TEMP 36.4; O2SAT 95
[2023-05-05] MEDS: Milk of Magnesia 30 ML ORAL.SUSP PO (09:54)
--- NOTE | 2023-05-05 12:29 | HO.PSYCHPN ---
Subjective Subjective Date of Service: 05/05/23 Reason For Visit: Bipolar Disorder manic psychosis Subjective Notes: Section 7 Healthcare Proxy: Yes (affirmed today with the court) Guardianship: No Medical Problems Affecting Mental Status: No Interim History: Pt reviewed her plans for discharge tomorrow. She instructed medicines to go to [facility], records to go to [facility]. She declines repeat EKG and reports missing glasses, book written by Veronica Cardenas and covid vaccination records. States she has re-written 15 pages and will mail these herself to [email or web address] regarding the trauma she has experienced. She was unable to hear that her HCP affirmation hearing was today- no, that is not happening . She is unable to discuss her treatment or medicine plan and is dismissive of information attempted to be given. HCP was affirmed this afternoon by the court. We await documentation and will call HCP to schedule a meeting to discuss treatment and moving forward with her care once received. 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) Delusions: Paranoid Ideation Thought Process: Rumination Thought Content: positive for Tangential, positive for Disorganized, negative for Suicidal Ideation or negative for Homicidal Ideation Depressive Symptoms: Increased Anxiety and Increased Irritability Judgement: Poor Diagnostics Vital Signs (24Hr): Vital Signs - 24 hr 05/04/23 17:20 05/05/23 08:38 Temperature 98.1 F 97.6 F Pulse Rate 101 H 105 H Respiratory Rate 16 Blood Pressure 166/77 H 151/81 H Pulse Oximetry 94 95 Oxygen Delivery Method Room Air Room Air BMI result Body Mass Index 36.2 Labs 05/02/23 07:22 05/02/23 07:22 Labs: Laboratory Results - last 48 hr 05/04/23 05/05/23 08:06 07:28 POC Glucose 135 H 142 H Medications Medications Current Medications Acetaminophen (Acetaminophen 325 Mg Tablet) 650 mg PO Q6H PRN PRN Reason: Headache/Pain Mild Scale (1-3) Al Hydroxide/Mg Hydroxide (Magnesium Hydrox/Alum Hydrox 30 Ml Oral.Susp) 30 ml PO Q6H PRN PRN Reason: Heartburn/Nausea Last Admin: 05/02/23 20:37 Dose: 30 ml Amlodipine Besylate (Amlodipine Besylate 2.5 Mg Tablet) 2.5 mg PO DAILY [facility]; Protocol Last Admin: 05/05/23 08:35 Dose: 2.5 mg Aspirin (Aspirin Enteric Coated 81 Mg Tablet.Dr) 81 mg PO DAILY [facility] Last Admin: 05/05/23 08:35 Dose: 81 mg Atorvastatin Calcium (Atorvastatin Calcium 40 Mg Tablet) 40 mg PO BEDTIME [facility] Last Admin: 05/04/23 21:27 Dose: 40 mg Benzocaine (Throat Lozenge, Medicated Lozenge) 1 lozenge MUCOUS MEM Q2H PRN PRN Reason: Sore Throat Last Admin: 04/25/23 17:45 Dose: 1 lozenge Benztropine Mesylate (Benztropine Mesylate 1 Mg Tablet) 1 mg PO DAILY [facility] Last Admin: 05/05/23 08:34 Dose: 1 mg Carbamazepine (Carbamazepine Er 200 Mg Tab.Er.12h) 400 mg PO BID [facility] Last Admin: 05/05/23 08:34 Dose: 400 mg Cyanocobalamin (Cyanocobalamin (Vitamin B-12) 100 Mcg Tablet) 100 mcg PO DAILY [facility] Last Admin: 05/05/23 08:35 Dose: 100 mcg Furosemide (Furosemide 20 Mg Tablet) 20 mg PO DAILY [facility]; Protocol Last Admin: 05/05/23 08:35 Dose: 20 mg Lorazepam (Lorazepam 1 Mg Tablet) 1 mg PO BEDTIME [facility] Last Admin: 05/04/23 21:27 Dose: 1 mg Lorazepam (Lorazepam 1 Mg Tablet) 1 mg PO BEDTIME PRN PRN Reason: Insomnia Last Admin: 04/12/23 23:40 Dose: 1 mg Magnesium Hydroxide (Milk Of Magnesia 30 Ml Oral.Susp) 30 ml PO DAILY PRN PRN Reason: Constipation Last Admin: 05/05/23 09:54 Dose: 30 ml Magnesium Oxide (Magnesium Oxide 400 Mg Tablet) 400 mg PO DAILY [facility] Last Admin: 05/05/23 08:35 Dose: 400 mg Melatonin (Melatonin 3 Mg Tablet) 6 mg PO BEDTIME [facility] Last Admin: 05/04/23 21:27 Dose: 6 mg Metoprolol Succinate (Metoprolol Succinate Er 25 Mg Tab.Er.24h) 25 mg PO DAILY [facility]; Protocol Last Admin: 05/05/23 08:35 Dose: 25 mg Multi-Ingred Medicated Throat [place] (Throat [place], Medicated 177 Ml Bottle) 1 spray MUCOUS MEM Q2H PRN PRN Reason: Sore Throat Last Admin: 04/23/23 09:11 Dose: 1 spray Pt Own (Trulicity 3 (Mg)) 3 mg SUBCUT Q7D [facility] Last Admin: 05/02/23 11:58 Dose: 3 mg Ondansetron HCl (Ondansetron Odt 4 Mg Tab.Rapdis) 4 mg TRANSLINGU Q6H PRN PRN Reason: Nausea Last Admin: 04/27/23 09:31 Dose: 4 mg Polyethylene Glycol (Polyethylene Glycol 3350 17 Gm Powd.Pack) 17 gm PO DAILY PRN PRN Reason: Constipation Last Admin: 03/30/23 13:46 Dose: 17 gm Quetiapine Fumarate (Quetiapine Fumarate 50 Mg Tablet) 50 mg PO BID PRN PRN Reason: becca, agitation Last Admin: 04/24/23 21:38 Dose: 50 mg Quetiapine Fumarate (Quetiapine Fumarate 200 Mg Tablet) 200 mg PO BEDTIME [facility] Last Admin: 05/04/23 21:27 Dose: 200 mg Thyroid (Thyroid,Pork 30 Mg Tablet) 15 mg PO DAILY@0630 [facility] Last Admin: 05/05/23 06:00 Dose: 15 mg Vitamin D (Cholecalciferol (Vitamin D3) 10 Mcg Tablet) 10 mcg PO DAILY [facility] Last Admin: 05/05/23 08:35 Dose: 10 mcg Zolpidem Tartrate (Zolpidem Tartrate 5 Mg Tablet) 5 mg PO BEDTIME [facility] Last Admin: 05/04/23 21:28 Dose: 5 mg Allergies Allergies Allergy/AdvReac Type Severity Reaction Status Date / Time amoxicillin Allergy Unknown Unknown Uncoded 03/25/23 11:07 Pt states no food allergy Allergy Unknown Unknown Uncoded 03/25/23 11:07 Assessment & Plan Assessment & Plan (1) Bipolar affective disorder, manic, severe, with psychotic behavior: Status: Acute Code(s): F31.2 - Bipolar disorder, current episode manic severe with psychotic features Assessment and Plan: 04/12/23 ongoing becca but seems less labile and pressured today- more cooperative with medical care (2) PTSD (post-traumatic stress disorder): Status: Acute Code(s): F43.10 - Post-traumatic stress disorder, unspecified Plan 62 yo female, history of PTSD, Bipolar Disorder with Psychosis, self presents reporting she has stopped medications. She asks to go to [place], however, is willing to work with the team on at this time. She has stopped meds and is willing to re-start. She has several requests regarding meds which were addressed, however, she will be making further requests as her treatment continues. At this time, she reports being controlled by Estefania Mosqueda in all aspects of her life. This has caused great fear and anxiety. Pt has written several pages regarding this issue and is willing to share these. During our meeting she presents with acute becca, feeling overwhelmed with being controlled and vulnerable. Attempted to offer support, structure, safety for pt today. She has been able to appear to move freely in milieu, sing, dance and appears to feel comfortable and safe while settling in. Plan: Re-establish regime, medical and psychiatric Abilify 5 mg daily- pt request this trial, reports effective history. Today, pt has had ambivalence about Miralax order, asking ~7 times to start and stop. As of this writing, she asks that we not put it on her list of meds. Full milieu Collateral contact Diagnostics as needed. 03/28: Continue current regimen and plans 03/29: Continue current regimen and plans. Increased Abilify to 10 mg and Ambien to 10 mg 03/30: Continue current plans and regimen 03/31: Will file Section 7 on 04/01. 04/02/23: DC Seroquel at HS Increase Trazodone to 75 mg HS. MR x1. Ceftin to stop 04/03. 04/03/23: Increase Abilify to 10 mg bid 04/04: Continue current management and treatment plan. 04/05: check Tegretol level in AM and consider titration based on level and consider titration of Abilify. 04/06: Pt declines Abilify titration at this time. TDN 04/08. 04/08: Section 7, HCP activation 04/09: Encourage treatment with [facility] 04/11/23 continues labile some struggle around diabetes care- 04/12/23 Hold off on Abilify injectable until clear whether or not Abilify will be helpful Abilify 15 mg twice a day morning and after late afternoon Seroquel at bedtime continue Tegretol 04/14/23 Abilify 15 bid seroquel hs encourage change to invega continues psychotic 04/15/23 Depakote 250 bid evaluate response to abilify 04/16/2023 Patient has had no clear response to Abilify floridly delusional early based thinking irritable preoccupied Reportedly had done well in the past on Invega does not wish to retry this discussed restarting therapeutic dose Seroquel which patient did eventually discontinue recently versus Vraylar for manic psychosis which she is agreeable to try 04/17/23 Depakote 250 bid invega po taper abilify 04/17 Patient more organized than she has been in the past. Dormitory Maid mentioned this and patient agreed saying that her mind is not so racey... Patient actually reading a book today as well Earlier today she initially refused Invega but then decided to take it. She talked with typewriter assembly and parts inspector saying she thought maybe she should be on Invega and that she should be on Latuda instead however she agreed to continue with Dr. Krueger's plan and did take the Invega and Depakote and said she would continue to do so. Patient expressed and nursing that she was afraid that if she took Invega she would end up on Invega Sustenna, the shot which he does not want. -Continue Depakote 250 mg b.i.d. -Continue Invega -Starting Trulicity today. -Will DC POC qid (but leave a daily POC at patients request); will dc insulin sliding scale; patient has not had blood glucose over 160 despite 4 readings a day and always refuses insulin anyway. 04/18 Today Patient with a little more pressured speech and expressing paranoid delusions than yesterday; has been refusing Seroquel at bedtime. Today had a long list of things that she wanted to communicate some mildly relevant others not; she talked about the [employer] a following her and how she has numerous documents on her laptop proving this, where should she submit these documents etc. -tegretol level therapeutic -associated labs WNL 04/20/23 Inc depakote as tolerated tegretol abilify not helpful inc invega 6 mg daily has pending civil commitment 04/21/23 Pt refusing invega would file for affirmed hcp will try and coordinate with hcp 04/22/23 Increase tegretol to 200 mg a.m. XR and 400 mg XR pm Refused Invega but will continue to offer Asks that hydroxyzine be stopped Ambien 5 mg hs prn Decrease Depakote to 250 mg daily- that is what I will take, take it or leave it. 04/23/23 Discontinue Invega Increase Seroquel to 125 mg HS 04/24/23 Continue tx. 04/25/2023: Continue current regimen and plans. 04/26/2023: Continue current regimen and plans. 04/28/23: Increase Seroquel to 200 mg HS Increase Tegretol XR to 400 mg bid Melatonin 6 mg x 1 this evening for trial. 04/29/23: Continue Tx. 04/30/23: Continue Tx. 05/01/23: Continue Tx. Diagnostics in the a.m. 05/02/23: continue current management and treatment plan. 05/02: continue current management and treatment plan. 05/05/23: HCP activation today. Begin treatment planning with family. Informed Consent: does not understand Reason for continued inpatient stay Substantial Risk for: rapid decompensation Time Spent With Patient Time: Total time managing care of this patient today ____ minutes.
[2023-05-05 18:00] VITALS: BP 176/91; PULSE 99; RESP 18; TEMP 36.4; O2SAT 96
[2023-05-05] MEDS: LORazepam 1 MG TABLET PO (21:06)
[2023-05-05] MEDS: QUEtiapine Fumarate 200 MG TABLET PO (21:06)
[2023-05-05] MEDS: Zolpidem Tartrate 5 MG TABLET PO (21:06)
[2023-05-05] MEDS: Melatonin 3 MG TABLET 6 MG PO (21:09)
[2023-05-06] MEDS: Thyroid,Pork 30 MG TABLET 15 MG PO (06:00)
[2023-05-06 08:07] LABS: Glucose, Whole Blood 152 mg/dL (60-115)
[2023-05-06] MEDS: Benztropine Mesylate 1 MG TABLET PO (08:30)
[2023-05-06] MEDS: carBAMazepine ER 100 MG TAB.ER.12H 300 MG PO (08:30)
[2023-05-06] MEDS: Cholecalciferol (Vitamin D3) 10 MCG TABLET PO (08:31)
[2023-05-06] MEDS: Magnesium Oxide 400 MG TABLET PO (08:31)
[2023-05-06] MEDS: Metoprolol Succinate ER 25 MG TAB.ER.24H PO (08:31)
[2023-05-06] MEDS: Aspirin Enteric Coated 81 MG TABLET.DR PO (08:31)
[2023-05-06] MEDS: Furosemide 20 MG TABLET PO (08:31)
[2023-05-06] MEDS: Cyanocobalamin (Vitamin B-12) 100 MCG TABLET PO (08:31)
[2023-05-06] MEDS: amLODIPine Besylate 2.5 MG TABLET PO (08:31)
[2023-05-06 10:02] VITALS: BP 150/67; PULSE 101; RESP 16; TEMP 36.4; O2SAT 95
--- NOTE | 2023-05-06 14:36 | HO.PSYCHPN ---
Subjective Subjective Date of Service: 05/06/23 Reason For Visit: Bipolar Disorder manic psychosis Subjective Notes: Section 7 Healthcare Proxy: Yes Guardianship: No Medical Problems Affecting Mental Status: No Interim History: Demanding to discharge. Explained Section 7. She will not accept this explanation. Dismissive, angry, asking to speak with Dr. Krueger who did meet with her. Later in the day, calmer, bright, cheerful, labile. HCP affirmation paperwork received late in the day. Message left for pt's brother to schedule appt to meet with he and sister to create a plan they are comfortable with. 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) Delusions: Paranoid Ideation Thought Process: Rumination Thought Content: positive for Tangential, positive for Disorganized, negative for Suicidal Ideation or negative for Homicidal Ideation Depressive Symptoms: Increased Anxiety and Increased Irritability Judgement: Poor Diagnostics Vital Signs (24Hr): Vital Signs - 24 hr 05/05/23 18:00 05/06/23 10:02 Temperature 97.5 F 97.6 F Pulse Rate 99 101 H Respiratory Rate 18 16 Blood Pressure 176/91 H 150/67 H Pulse Oximetry 96 95 Oxygen Delivery Method Room Air Room Air BMI result Body Mass Index 36.2 Labs 05/02/23 07:22 05/02/23 07:22 Labs: Laboratory Results - last 48 hr 05/05/23 05/06/23 07:28 08:02 POC Glucose 142 H 152 H Medications Medications Current Medications Acetaminophen (Acetaminophen 325 Mg Tablet) 650 mg PO Q6H PRN PRN Reason: Headache/Pain Mild Scale (1-3) Al Hydroxide/Mg Hydroxide (Magnesium Hydrox/Alum Hydrox 30 Ml Oral.Susp) 30 ml PO Q6H PRN PRN Reason: Heartburn/Nausea Last Admin: 05/02/23 20:37 Dose: 30 ml Amlodipine Besylate (Amlodipine Besylate 2.5 Mg Tablet) 2.5 mg PO DAILY [facility]; Protocol Last Admin: 05/06/23 08:31 Dose: 2.5 mg Aspirin (Aspirin Enteric Coated 81 Mg Tablet.Dr) 81 mg PO DAILY [facility] Last Admin: 05/06/23 08:31 Dose: 81 mg Atorvastatin Calcium (Atorvastatin Calcium 40 Mg Tablet) 40 mg PO BEDTIME [facility] Last Admin: 05/05/23 21:16 Dose: Not Given Benzocaine (Throat Lozenge, Medicated Lozenge) 1 lozenge MUCOUS MEM Q2H PRN PRN Reason: Sore Throat Last Admin: 04/25/23 17:45 Dose: 1 lozenge Benztropine Mesylate (Benztropine Mesylate 1 Mg Tablet) 1 mg PO DAILY [facility] Last Admin: 05/06/23 08:30 Dose: 1 mg Carbamazepine (Carbamazepine Er 100 Mg Tab.Er.12h) 300 mg PO DAILY [facility] Last Admin: 05/06/23 08:30 Dose: 300 mg Carbamazepine (Carbamazepine Er 200 Mg Tab.Er.12h) 400 mg PO BEDTIME [facility] Last Admin: 05/05/23 21:06 Dose: 400 mg Cyanocobalamin (Cyanocobalamin (Vitamin B-12) 100 Mcg Tablet) 100 mcg PO DAILY [facility] Last Admin: 05/06/23 08:31 Dose: 100 mcg Furosemide (Furosemide 20 Mg Tablet) 20 mg PO DAILY [facility]; Protocol Last Admin: 05/06/23 08:31 Dose: 20 mg Lorazepam (Lorazepam 1 Mg Tablet) 1 mg PO BEDTIME [facility] Last Admin: 05/05/23 21:06 Dose: 1 mg Lorazepam (Lorazepam 1 Mg Tablet) 1 mg PO BEDTIME PRN PRN Reason: Insomnia Last Admin: 04/12/23 23:40 Dose: 1 mg Magnesium Hydroxide (Milk Of Magnesia 30 Ml Oral.Susp) 30 ml PO DAILY PRN PRN Reason: Constipation Last Admin: 05/05/23 09:54 Dose: 30 ml Magnesium Oxide (Magnesium Oxide 400 Mg Tablet) 400 mg PO DAILY [facility] Last Admin: 05/06/23 08:31 Dose: 400 mg Melatonin (Melatonin 3 Mg Tablet) 6 mg PO BEDTIME [facility] Last Admin: 05/05/23 21:09 Dose: 6 mg Metoprolol Succinate (Metoprolol Succinate Er 25 Mg Tab.Er.24h) 25 mg PO DAILY [facility]; Protocol Last Admin: 05/06/23 08:31 Dose: 25 mg Multi-Ingred Medicated Throat [place] (Throat [place], Medicated 177 Ml Bottle) 1 spray MUCOUS MEM Q2H PRN PRN Reason: Sore Throat Last Admin: 04/23/23 09:11 Dose: 1 spray Pt Own (Trulicity 3 (Mg)) 3 mg SUBCUT Q7D [facility] Last Admin: 05/02/23 11:58 Dose: 3 mg Ondansetron HCl (Ondansetron Odt 4 Mg Tab.Rapdis) 4 mg TRANSLINGU Q6H PRN PRN Reason: Nausea Last Admin: 04/27/23 09:31 Dose: 4 mg Polyethylene Glycol (Polyethylene Glycol 3350 17 Gm Powd.Pack) 17 gm PO DAILY PRN PRN Reason: Constipation Last Admin: 03/30/23 13:46 Dose: 17 gm Quetiapine Fumarate (Quetiapine Fumarate 50 Mg Tablet) 50 mg PO BID PRN PRN Reason: becca, agitation Last Admin: 04/24/23 21:38 Dose: 50 mg Quetiapine Fumarate (Quetiapine Fumarate 200 Mg Tablet) 200 mg PO BEDTIME [facility] Last Admin: 05/05/23 21:06 Dose: 200 mg Thyroid (Thyroid,Pork 30 Mg Tablet) 15 mg PO DAILY@0630 [facility] Last Admin: 05/06/23 06:00 Dose: 15 mg Vitamin D (Cholecalciferol (Vitamin D3) 10 Mcg Tablet) 10 mcg PO DAILY [facility] Last Admin: 05/06/23 08:31 Dose: 10 mcg Zolpidem Tartrate (Zolpidem Tartrate 5 Mg Tablet) 5 mg PO BEDTIME [facility] Last Admin: 05/05/23 21:06 Dose: 5 mg Allergies Allergies Allergy/AdvReac Type Severity Reaction Status Date / Time amoxicillin Allergy Unknown Unknown Uncoded 03/25/23 11:07 Pt states no food allergy Allergy Unknown Unknown Uncoded 03/25/23 11:07 Assessment & Plan Assessment & Plan (1) Bipolar affective disorder, manic, severe, with psychotic behavior: Status: Acute Code(s): F31.2 - Bipolar disorder, current episode manic severe with psychotic features Assessment and Plan: 04/12/23 ongoing becca but seems less labile and pressured today- more cooperative with medical care (2) PTSD (post-traumatic stress disorder): Status: Acute Code(s): F43.10 - Post-traumatic stress disorder, unspecified Plan 62 yo female, history of PTSD, Bipolar Disorder with Psychosis, self presents reporting she has stopped medications. She asks to go to [place], however, is willing to work with the team on [facility]5 at this time. She has stopped meds and is willing to re-start. She has several requests regarding meds which were addressed, however, she will be making further requests as her treatment continues. At this time, she reports being controlled by Estefania Mosqueda in all aspects of her life. This has caused great fear and anxiety. Pt has written several pages regarding this issue and is willing to share these. During our meeting she presents with acute becca, feeling overwhelmed with being controlled and vulnerable. Attempted to offer support, structure, safety for pt today. She has been able to appear to move freely in milieu, sing, dance and appears to feel comfortable and safe while settling in. Plan: Re-establish regime, medical and psychiatric Abilify 5 mg daily- pt request this trial, reports effective history. Today, pt has had ambivalence about Miralax order, asking ~7 times to start and stop. As of this writing, she asks that we not put it on her list of meds. Full milieu Collateral contact Diagnostics as needed. 03/28: Continue current regimen and plans 03/29: Continue current regimen and plans. Increased Abilify to 10 mg and Ambien to 10 mg 03/30: Continue current plans and regimen 03/31: Will file Section 7 on 04/01. 04/02/23: DC Seroquel at HS Increase Trazodone to 75 mg HS. MR x1. Ceftin to stop 04/03. 04/03/23: Increase Abilify to 10 mg bid 04/04: Continue current management and treatment plan. 04/05: check Tegretol level in AM and consider titration based on level and consider titration of Abilify. 04/06: Pt declines Abilify titration at this time. TDN 04/08. 04/08: Section 7, HCP activation 04/09: Encourage treatment with [facility] 04/11/23 continues labile some struggle around diabetes care- 04/12/23 Hold off on Abilify injectable until clear whether or not Abilify will be helpful Abilify 15 mg twice a day morning and after late afternoon Seroquel at bedtime continue Tegretol 04/14/23 Abilify 15 bid seroquel hs encourage change to invega continues psychotic 04/15/23 Depakote 250 bid evaluate response to abilify 04/16/2023 Patient has had no clear response to Abilify floridly delusional early based thinking irritable preoccupied Reportedly had done well in the past on Invega does not wish to retry this discussed restarting therapeutic dose Seroquel which patient did eventually discontinue recently versus Vraylar for manic psychosis which she is agreeable to try 04/17/23 Depakote 250 bid invega po taper abilify 04/17 Patient more organized than she has been in the past. Alumina Refinery Operator mentioned this and patient agreed saying that her mind is not so racey... Patient actually reading a book today as well Earlier today she initially refused Invega but then decided to take it. She talked with law writer saying she thought maybe she should be on Invega and that she should be on Latuda instead however she agreed to continue with Dr. Krueger's plan and did take the Invega and Depakote and said she would continue to do so. Patient expressed and nursing that she was afraid that if she took Invega she would end up on Invega Sustenna, the shot which he does not want. -Continue Depakote 250 mg b.i.d. -Continue Invega -Starting Trulicity today. -Will DC POC qid (but leave a daily POC at patients request); will dc insulin sliding scale; patient has not had blood glucose over 160 despite 4 readings a day and always refuses insulin anyway. 04/18 Today Patient with a little more pressured speech and expressing paranoid delusions than yesterday; has been refusing Seroquel at bedtime. Today had a long list of things that she wanted to communicate some mildly relevant others not; she talked about the [facility] a following her and how she has numerous documents on her laptop proving this, where should she submit these documents etc. -tegretol level therapeutic -associated labs WNL 04/20/23 Inc depakote as tolerated tegretol abilify not helpful inc invega 6 mg daily has pending civil commitment 04/21/23 Pt refusing invega would file for affirmed hcp will try and coordinate with hcp 04/22/23 Increase tegretol to 200 mg a.m. XR and 400 mg XR pm Refused Invega but will continue to offer Asks that hydroxyzine be stopped Ambien 5 mg hs prn Decrease Depakote to 250 mg daily- that is what I will take, take it or leave it. 04/23/23 Discontinue Invega Increase Seroquel to 125 mg HS 04/24/23 Continue tx. 04/25/2023: Continue current regimen and plans. 04/26/2023: Continue current regimen and plans. 04/28/23: Increase Seroquel to 200 mg HS Increase Tegretol XR to 400 mg bid Melatonin 6 mg x 1 this evening for trial. 04/29/23: Continue Tx. 04/30/23: Continue Tx. 05/01/23: Continue Tx. Diagnostics in the a.m. 05/02/23: continue current management and treatment plan. 05/02: continue current management and treatment plan. 05/03: Court to hear HCP affirmation on 05/04. Continue current regime. 05/05/28: Continue current regime. Informed Consent: does not understand Reason for continued inpatient stay Substantial Risk for: rapid decompensation Time Spent With Patient Time: Total time managing care of this patient today ____ minutes.
[2023-05-06 16:25] VITALS: BP 136/65; PULSE 93; RESP 16; TEMP 36.9; O2SAT 96
[2023-05-06] MEDS: Zolpidem Tartrate 5 MG TABLET PO (21:23)
[2023-05-06] MEDS: LORazepam 1 MG TABLET PO (21:24)
[2023-05-06] MEDS: carBAMazepine ER 200 MG TAB.ER.12H 400 MG PO (21:24)
[2023-05-06] MEDS: QUEtiapine Fumarate 200 MG TABLET PO (21:24)
[2023-05-06] MEDS: Melatonin 3 MG TABLET 6 MG PO (21:24)
[2023-05-06] MEDS: Milk of Magnesia 30 ML ORAL.SUSP PO (21:28)
[2023-05-07 05:45] LABS: Glucose, Whole Blood 109 mg/dL (60-115)
[2023-05-07 08:15] VITALS: BP 161/101; PULSE 92; RESP 18; TEMP 36.5; O2SAT 95
[2023-05-07] MEDS: Metoprolol Succinate ER 25 MG TAB.ER.24H PO (08:21)
[2023-05-07] MEDS: Benztropine Mesylate 1 MG TABLET PO (08:21)
[2023-05-07] MEDS: carBAMazepine ER 100 MG TAB.ER.12H 300 MG PO (08:21)
[2023-05-07] MEDS: Aspirin Enteric Coated 81 MG TABLET.DR PO (08:21)
[2023-05-07] MEDS: amLODIPine Besylate 2.5 MG TABLET PO (08:21)
[2023-05-07] MEDS: Cyanocobalamin (Vitamin B-12) 100 MCG TABLET PO (08:22)
[2023-05-07] MEDS: Magnesium Oxide 400 MG TABLET PO (08:22)
[2023-05-07] MEDS: Cholecalciferol (Vitamin D3) 10 MCG TABLET PO (08:22)
[2023-05-07] MEDS: Furosemide 20 MG TABLET PO (08:22)
[2023-05-07 09:15] VITALS: RESP 18
--- NOTE | 2023-05-07 14:07 | P.PNPSI_ITS ---
Subjective Subjective Date of Service: 05/07/23 Reason For Visit: Bipolar Disorder manic psychosis Subjective Notes: Section 7 Healthcare Proxy: No Guardianship: No Medical Problems Affecting Mental Status: No Interim History: Call to pts' brother/HCP. He/sisters will come in 05/12/23 5pm for a meeting to discuss their thoughts regarding medicine regime. Pt today is quiet, clearer, less labile, working on a word search puzzle. Reports poor sleep last night-Melatonin increased. Refuses Seroquel increase. I am not psychotic . 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) Delusions: Paranoid Ideation Thought Process: Rumination Thought Content: positive for Tangential, positive for Disorganized, negative for Suicidal Ideation or negative for Homicidal Ideation Depressive Symptoms: Increased Anxiety and Increased Irritability Judgement: Poor Diagnostics Vital Signs (24Hr): Vital Signs - 24 hr 05/06/23 16:25 05/07/23 08:15 05/07/23 09:15 Temperature 98.5 F 97.7 F Pulse Rate 93 92 Respiratory Rate 16 18 18 Blood Pressure 136/65 161/101 H Pulse Oximetry 96 95 Oxygen Delivery Method Room Air Room Air BMI result Body Mass Index 36.2 Labs 05/02/23 07:22 05/02/23 07:22 Labs: Laboratory Results - last 48 hr 05/06/23 05/07/23 08:02 05:27 POC Glucose 152 H 109 Medications Medications Current Medications Acetaminophen (Acetaminophen 325 Mg Tablet) 650 mg PO Q6H PRN PRN Reason: Headache/Pain Mild Scale (1-3) Al Hydroxide/Mg Hydroxide (Magnesium Hydrox/Alum Hydrox 30 Ml Oral.Susp) 30 ml PO Q6H PRN PRN Reason: Heartburn/Nausea Last Admin: 05/02/23 20:37 Dose: 30 ml Amlodipine Besylate (Amlodipine Besylate 2.5 Mg Tablet) 2.5 mg PO DAILY [facility]AR[facility]; Protocol Last Admin: 05/07/23 08:21 Dose: 2.5 mg Aspirin (Aspirin Enteric Coated 81 Mg Tablet.Dr) 81 mg PO DAILY [facility] Last Admin: 05/07/23 08:21 Dose: 81 mg Atorvastatin Calcium (Atorvastatin Calcium 40 Mg Tablet) 40 mg PO BEDTIME [facility] Last Admin: 05/06/23 21:25 Dose: Not Given Benzocaine (Throat Lozenge, Medicated Lozenge) 1 lozenge MUCOUS MEM Q2H PRN PRN Reason: Sore Throat Last Admin: 04/25/23 17:45 Dose: 1 lozenge Benztropine Mesylate (Benztropine Mesylate 1 Mg Tablet) 1 mg PO DAILY [facility] Last Admin: 05/07/23 08:21 Dose: 1 mg Carbamazepine (Carbamazepine Er 100 Mg Tab.Er.12h) 300 mg PO DAILY [facility] Last Admin: 05/07/23 08:21 Dose: 300 mg Carbamazepine (Carbamazepine Er 200 Mg Tab.Er.12h) 400 mg PO BEDTIME [facility] Last Admin: 05/06/23 21:24 Dose: 400 mg Cyanocobalamin (Cyanocobalamin (Vitamin B-12) 100 Mcg Tablet) 100 mcg PO DAILY [facility] Last Admin: 05/07/23 08:22 Dose: 100 mcg Furosemide (Furosemide 20 Mg Tablet) 20 mg PO DAILY [facility]; Protocol Last Admin: 05/07/23 08:22 Dose: 20 mg Lorazepam (Lorazepam 1 Mg Tablet) 1 mg PO BEDTIME [facility] Last Admin: 05/06/23 21:24 Dose: 1 mg Lorazepam (Lorazepam 1 Mg Tablet) 1 mg PO BEDTIME PRN PRN Reason: Insomnia Last Admin: 04/12/23 23:40 Dose: 1 mg Magnesium Hydroxide (Milk Of Magnesia 30 Ml Oral.Susp) 30 ml PO DAILY PRN PRN Reason: Constipation Last Admin: 05/06/23 21:28 Dose: 30 ml Magnesium Oxide (Magnesium Oxide 400 Mg Tablet) 400 mg PO DAILY [facility] Last Admin: 05/07/23 08:22 Dose: 400 mg Melatonin (Melatonin 3 Mg Tablet) 6 mg PO BEDTIME [facility] Last Admin: 05/06/23 21:24 Dose: 6 mg Metoprolol Succinate (Metoprolol Succinate Er 25 Mg Tab.Er.24h) 25 mg PO DAILY [facility]; Protocol Last Admin: 05/07/23 08:21 Dose: 25 mg Multi-Ingred Medicated Throat [place] (Throat [place], Medicated 177 Ml Bottle) 1 spray MUCOUS MEM Q2H PRN PRN Reason: Sore Throat Last Admin: 04/23/23 09:11 Dose: 1 spray Pt Own (Trulicity 3 (Mg)) 3 mg SUBCUT Q7D [facility] Last Admin: 05/02/23 11:58 Dose: 3 mg Ondansetron HCl (Ondansetron Odt 4 Mg Tab.Rapdis) 4 mg TRANSLINGU Q6H PRN PRN Reason: Nausea Last Admin: 04/27/23 09:31 Dose: 4 mg Polyethylene Glycol (Polyethylene Glycol 3350 17 Gm Powd.Pack) 17 gm PO DAILY PRN PRN Reason: Constipation Last Admin: 03/30/23 13:46 Dose: 17 gm Quetiapine Fumarate (Quetiapine Fumarate 50 Mg Tablet) 50 mg PO BID PRN PRN Reason: becca, agitation Last Admin: 04/24/23 21:38 Dose: 50 mg Quetiapine Fumarate (Quetiapine Fumarate 200 Mg Tablet) 200 mg PO BEDTIME [facility] Last Admin: 05/06/23 21:24 Dose: 200 mg Thyroid (Thyroid,Pork 30 Mg Tablet) 15 mg PO DAILY@0630 [facility] Last Admin: 05/07/23 06:05 Dose: Not Given Vitamin D (Cholecalciferol (Vitamin D3) 10 Mcg Tablet) 10 mcg PO DAILY [facility] Last Admin: 05/07/23 08:22 Dose: 10 mcg Zolpidem Tartrate (Zolpidem Tartrate 5 Mg Tablet) 5 mg PO BEDTIME [facility] Last Admin: 05/06/23 21:23 Dose: 5 mg Allergies Allergies Allergy/AdvReac Type Severity Reaction Status Date / Time amoxicillin Allergy Unknown Unknown Uncoded 03/25/23 11:07 Pt states no food allergy Allergy Unknown Unknown Uncoded 03/25/23 11:07 Assessment & Plan Assessment & Plan (1) Bipolar affective disorder, manic, severe, with psychotic behavior: Status: Acute Code(s): F31.2 - Bipolar disorder, current episode manic severe with psychotic features Assessment and Plan: 04/12/23 ongoing becca but seems less labile and pressured today- more cooperative with medical care (2) PTSD (post-traumatic stress disorder): Status: Acute Code(s): F43.10 - Post-traumatic stress disorder, unspecified Plan 62 yo female, history of PTSD, Bipolar Disorder with Psychosis, self presents reporting she has stopped medications. She asks to go to [place], however, is willing to work with the team on M5 at this time. She has stopped meds and is willing to re-start. She has several requests regarding meds which were addressed, however, she will be making further requests as her treatment continues. At this time, she reports being controlled by Estefania Mosqueda in all aspects of her life. This has caused great fear and anxiety. Pt has written several pages regarding this issue and is willing to share these. During our meeting she presents with acute becca, feeling overwhelmed with being controlled and vulnerable. Attempted to offer support, structure, safety for pt today. She has been able to appear to move freely in milieu, sing, dance and appears to feel comfortable and safe while settling in. Plan: Re-establish regime, medical and psychiatric Abilify 5 mg daily- pt request this trial, reports effective history. Today, pt has had ambivalence about Miralax order, asking ~7 times to start and stop. As of this writing, she asks that we not put it on her list of meds. Full milieu Collateral contact Diagnostics as needed. 03/28: Continue current regimen and plans 03/29: Continue current regimen and plans. Increased Abilify to 10 mg and Ambien to 10 mg 03/30: Continue current plans and regimen 03/31: Will file Section 7 on 04/01. 04/02/23: DC Seroquel at HS Increase Trazodone to 75 mg HS. MR x1. Ceftin to stop 04/03. 04/03/23: Increase Abilify to 10 mg bid 04/04: Continue current management and treatment plan. 04/05: check Tegretol level in AM and consider titration based on level and consider titration of Abilify. 04/06: Pt declines Abilify titration at this time. TDN 04/08. 04/08: Section 7, HCP activation 04/09: Encourage treatment with [facility] 04/11/23 continues labile some struggle around diabetes care- 04/12/23 Hold off on Abilify injectable until clear whether or not Abilify will be helpful Abilify 15 mg twice a day morning and after late afternoon Seroquel at bedtime continue Tegretol 04/14/23 Abilify 15 bid seroquel hs encourage change to invega continues psychotic 04/15/23 Depakote 250 bid evaluate response to abilify 04/16/2023 Patient has had no clear response to Abilify floridly delusional early based thinking irritable preoccupied Reportedly had done well in the past on Invega does not wish to retry this discussed restarting therapeutic dose Seroquel which patient did eventually discontinue recently versus Vraylar for manic psychosis which she is agreeable to try 04/17/23 Depakote 250 bid invega po taper abilify 04/17 Patient more organized than she has been in the past. Insulation Worker Apprentice mentioned this and patient agreed saying that her mind is not so racey... Patient actually reading a book today as well Earlier today she initially refused Invega but then decided to take it. She talked with television writer saying she thought maybe she should be on Invega and that she should be on Latuda instead however she agreed to continue with Dr. Krueger's plan and did take the Invega and Depakote and said she would continue to do so. Patient expressed and nursing that she was afraid that if she took Invega she would end up on Invega Sustenna, the shot which he does not want. -Continue Depakote 250 mg b.i.d. -Continue Invega -Starting Trulicity today. -Will DC POC qid (but leave a daily POC at patients request); will dc insulin sliding scale; patient has not had blood glucose over 160 despite 4 readings a day and always refuses insulin anyway. 04/18 Today Patient with a little more pressured speech and expressing paranoid delusions than yesterday; has been refusing Seroquel at bedtime. Today had a long list of things that she wanted to communicate some mildly relevant others not; she talked about the [facility] a following her and how she has numerous documents on her laptop proving this, where should she submit these documents etc. -tegretol level therapeutic -associated labs WNL 04/20/23 Inc depakote as tolerated tegretol abilify not helpful inc invega 6 mg daily has pending civil commitment 04/21/23 Pt refusing invega would file for affirmed hcp will try and coordinate with hcp 04/22/23 Increase tegretol to 200 mg a.m. XR and 400 mg XR pm Refused Invega but will continue to offer Asks that hydroxyzine be stopped Ambien 5 mg hs prn Decrease Depakote to 250 mg daily- that is what I will take, take it or leave it. 04/23/23 Discontinue Invega Increase Seroquel to 125 mg HS 04/24/23 Continue tx. 04/25/2023: Continue current regimen and plans. 04/26/2023: Continue current regimen and plans. 04/28/23: Increase Seroquel to 200 mg HS Increase Tegretol XR to 400 mg bid Melatonin 6 mg x 1 this evening for trial. 04/29/23: Continue Tx. 04/30/23: Continue Tx. 05/01/23: Continue Tx. Diagnostics in the a.m. 05/02/23: continue current management and treatment plan. 05/02: continue current management and treatment plan. 05/05/23: HCP activation today. Begin treatment planning with family. 05/07/23: Increase Melatonin to 9 mg HS Family meeting 05/12/23 5pm Informed Consent: does not understand Reason for continued inpatient stay Substantial Risk for: rapid decompensation Time Spent With Patient Time: Total time managing care of this patient today ____ minutes.
[2023-05-07] MEDS: Milk of Magnesia 30 ML ORAL.SUSP PO (21:00)
[2023-05-07] MEDS: Melatonin 3 MG TABLET 9 MG PO (21:02)
[2023-05-07] MEDS: QUEtiapine Fumarate 200 MG TABLET PO (21:02)
[2023-05-07] MEDS: carBAMazepine ER 200 MG TAB.ER.12H 400 MG PO (21:02)
[2023-05-07] MEDS: Zolpidem Tartrate 5 MG TABLET PO (21:02)
[2023-05-07] MEDS: LORazepam 1 MG TABLET PO (21:02)
[2023-05-08] MEDS: Thyroid,Pork 30 MG TABLET 15 MG PO (06:17)
[2023-05-08 07:34] LABS: Glucose, Whole Blood 119 mg/dL (60-115)
[2023-05-08 08:06] VITALS: BP 151/64; PULSE 88; RESP 16; TEMP 36.9; O2SAT 95
[2023-05-08] MEDS: carBAMazepine ER 100 MG TAB.ER.12H 300 MG PO (08:17)
[2023-05-08] MEDS: amLODIPine Besylate 2.5 MG TABLET PO (08:18)
[2023-05-08] MEDS: Aspirin Enteric Coated 81 MG TABLET.DR PO (08:18)
[2023-05-08] MEDS: Furosemide 20 MG TABLET PO (08:18)
[2023-05-08] MEDS: Metoprolol Succinate ER 25 MG TAB.ER.24H PO (08:18)
[2023-05-08] MEDS: Cyanocobalamin (Vitamin B-12) 100 MCG TABLET PO (08:18)
[2023-05-08] MEDS: Benztropine Mesylate 1 MG TABLET PO (08:18)
[2023-05-08] MEDS: Cholecalciferol (Vitamin D3) 10 MCG TABLET PO (08:18)
[2023-05-08] MEDS: Magnesium Oxide 400 MG TABLET PO (08:18)
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
[2023-05-08 18:00] VITALS: BP 133/78; PULSE 96; RESP 18; TEMP 36.8; O2SAT 95
[2023-05-08] MEDS: Zolpidem Tartrate 5 MG TABLET PO (21:29)
[2023-05-08] MEDS: carBAMazepine ER 200 MG TAB.ER.12H 400 MG PO (21:29)
[2023-05-08] MEDS: QUEtiapine Fumarate 400 MG TABLET PO (21:29)
[2023-05-08] MEDS: Melatonin 3 MG TABLET 9 MG PO (21:29)
[2023-05-08] MEDS: LORazepam 1 MG TABLET PO (21:29)
[2023-05-08] MEDS: Atorvastatin Calcium 40 MG TABLET PO (21:36)
[2023-05-08] MEDS: Milk of Magnesia 30 ML ORAL.SUSP PO (21:36)
[2023-05-08] MEDS: Ondansetron ODT 4 MG TAB.RAPDIS TRANSLINGU (22:09)
[2023-05-09] MEDS: Thyroid,Pork 30 MG TABLET 15 MG PO (06:07)
[2023-05-09 07:45] LABS: MANUAL DIFF FLAG NO
[2023-05-09 07:50] LABS: Basophils Percent Auto 0.2 % (0-2); Eosinophils Absolute Auto 0.2 X10*3/uL (0.0-0.4); Eosinophils Percent Auto 2.6 % (0-4); Hematocrit 36.3 % (37.0-47.0); Hemoglobin 11.7 g/dl (12.0-16.0); Imm Gran Abs Auto 0.03 X10*3/uL (0.00-0.03); Imm Gran Pct Auto 0.3 % (0.0-0.4); Lymphocytes Absolute Auto 3.7 X10*3/uL (1.2-4.9); Lymphocytes Percent Auto 39.8 % (20-40); Mean Corpuscular HGB Conc 32.2 g/dl (31.0-35.0); Mean Corpuscular Hemoglobin 31.3 pg (27.0-33.0); Mean Corpuscular Volume 97.1 fL (80.0-98.0); Monocytes Absolute Auto 0.6 X10*3/uL (0.1-1.2); Monocytes Percent Auto 6.4 % (2-11); Neutrophils Absolute Auto 4.7 x10*3/uL (2.0-8.3); Neutrophils Percent Auto 50.7 % (45-73); Platelet Count 177 X10*3/uL (160-400); Red Blood Count 3.74 X10*6/uL (4.20-5.50); Red Cell Distribution Width 13.3 % (11.0-16.0); White Blood Count 9.3 X10*3/uL (4.8-10.8)
[2023-05-09 08:15] LABS: Alanine Aminotransferase 19 U/L (0-31); Albumin Level 3.3 g/dL (3.5-5.0); Alkaline Phosphatase 68 U/L (39-117); Anion Gap 11 (12-20); Aspartate Amino Transferase 16 U/L (5-31); Bilirubin Total 0.3 mg/dL (0.0-1.0); Blood Urea Nitrogen 15 mg/dL (9-16); Calcium 8.2 mg/dL (8.4-10.2); Carbon Dioxide 28 mmol/L (22-29); Chloride 107 mmol/L (96-108); Creatinine Clr Calc Pharmacy 107.2; Estimated Glomerular Filt Rate > 60; Glucose Random 97 mg/dL (60-115); Potassium 4.7 mmol/L (3.3-5.1); Sodium 141 mmol/L (135-145); Total Protein 5.6 g/dL (6.5-8.0)
[2023-05-09 08:16] LABS: Ammonia 16 umol/L (13-55)
[2023-05-09 08:20] VITALS: BP 133/60; PULSE 88; RESP 16; TEMP 36.9; O2SAT 96
[2023-05-09 08:33] LABS: Glucose, Whole Blood 127 mg/dL (60-115)
[2023-05-09] MEDS: Furosemide 20 MG TABLET PO (08:56)
[2023-05-09] MEDS: Aspirin Enteric Coated 81 MG TABLET.DR PO (08:56)
[2023-05-09] MEDS: Cholecalciferol (Vitamin D3) 10 MCG TABLET PO (08:56)
[2023-05-09] MEDS: Benztropine Mesylate 1 MG TABLET PO (08:56)
[2023-05-09] MEDS: carBAMazepine ER 100 MG TAB.ER.12H 300 MG PO (08:56)
[2023-05-09] MEDS: Metoprolol Succinate ER 25 MG TAB.ER.24H PO (08:56)
[2023-05-09] MEDS: Cyanocobalamin (Vitamin B-12) 100 MCG TABLET PO (08:56)
[2023-05-09] MEDS: Magnesium Oxide 400 MG TABLET PO (08:56)
[2023-05-09] MEDS: amLODIPine Besylate 2.5 MG TABLET PO (08:56)
--- NOTE | 2023-05-09 11:42 | P.PNPSI_ITS ---
Subjective Subjective Date of Service: 05/09/23 Reason For Visit: Bipolar Disorder manic psychosis Subjective Notes: Section 7 Interim History: 62 yo calls me [employer]- tells nursing she doesn't want to see me, then welcomes me and tells me tangentially about issues with dc yesterday- will try again on Thursday- hopes to go to [place] and then be dced home with family- Continues hypomanic with disorganized speech- still mildly intrussive- more contained than 4 week ago when provider saw patient. Medication Compliance: Yes Side effects from medications: No Attending Groups: Intermittent Review of Systems Acute medical concerns: No Medical Review of Systems: unchanged Mental Status Exam Mental Status Exam Patient Appearance: Well Grooomed Patient Orientation: Person, Place, Time and Situation Level of Consciousness: Awake Patient Behavior: Talkative, Cooperative, Invasion - Personal Space (but allowed provider to step back without following) and Good Eye Contact Mood Description: Calm Affect Description: Labile (mildly), Elated and Expansive Ability to Follow Directions: Fair Speech Pattern: Rambling Delusions: Grandiose Thought Process: Racing and Distracted Thought Content: positive for Tangential Abnormal Motor Activity Signs and Symptoms: Restlessness Judgement: Fair Diagnostics Vital Signs (24Hr): Vital Signs - 24 hr 05/08/23 18:00 Temperature 98.3 F Pulse Rate 96 Respiratory Rate 18 Blood Pressure 133/78 Pulse Oximetry 95 Oxygen Delivery Method Room Air BMI result Body Mass Index 36.2 Labs 05/09/23 07:31 05/09/23 07:31 Labs: Laboratory Results - last 48 hr 05/08/23 05/09/23 05/09/23 07:30 07:31 08:27 WBC 9.3 RBC 3.74 L Hgb 11.7 L Hct 36.3 L MCV 97.1 MCH 31.3 MCHC 32.2 RDW 13.3 Plt Count 177 MPV 10.0 Immature Gran % (Auto) 0.3 Neut % (Auto) 50.7 Lymph % (Auto) 39.8 [place] % (Auto) 6.4 Eos % (Auto) 2.6 Baso % (Auto) 0.2 Lymph # (Auto) 3.7 [place] # (Auto) 0.6 Eos # (Auto) 0.2 Baso # (Auto) 0.0 Abs Immat Gran (auto) 0.03 Absolute Neuts (auto) 4.7 Absolute Nucleated RBC 0.000 Nucleated RBC % (auto) 0.0 Sodium 141 Potassium 4.7 Chloride 107 Carbon Dioxide 28 Anion Gap 11 L BUN 15 Creatinine 0.66 Estim Creat Clear Calc 107.2 Estimated GFR > 60 POC Glucose 119 H 127 H Random Glucose 97 Calcium 8.2 L D Total Bilirubin 0.3 AST 16 ALT 19 Alkaline Phosphatase 68 Ammonia 16 Total Protein 5.6 L Albumin 3.3 L Medications Medications Current Medications Acetaminophen (Acetaminophen 325 Mg Tablet) 650 mg PO Q6H PRN PRN Reason: Headache/Pain Mild Scale (1-3) Al Hydroxide/Mg Hydroxide (Magnesium Hydrox/Alum Hydrox 30 Ml Oral.Susp) 30 ml PO Q6H PRN PRN Reason: Heartburn/Nausea Last Admin: 05/02/23 20:37 Dose: 30 ml Amlodipine Besylate (Amlodipine Besylate 2.5 Mg Tablet) 2.5 mg PO DAILY [facility]; Protocol Last Admin: 05/08/23 08:18 Dose: 2.5 mg Aspirin (Aspirin Enteric Coated 81 Mg Tablet.Dr) 81 mg PO DAILY [facility] Last Admin: 05/08/23 08:18 Dose: 81 mg Atorvastatin Calcium (Atorvastatin Calcium 40 Mg Tablet) 40 mg PO BEDTIME [facility] Last Admin: 05/08/23 21:36 Dose: 40 mg Benzocaine (Throat Lozenge, Medicated Lozenge) 1 lozenge MUCOUS MEM Q2H PRN PRN Reason: Sore Throat Last Admin: 04/25/23 17:45 Dose: 1 lozenge Benztropine Mesylate (Benztropine Mesylate 1 Mg Tablet) 1 mg PO DAILY [facility] Last Admin: 05/08/23 08:18 Dose: 1 mg Carbamazepine (Carbamazepine Er 100 Mg Tab.Er.12h) 300 mg PO DAILY [facility] Last Admin: 05/08/23 08:17 Dose: 300 mg Carbamazepine (Carbamazepine Er 200 Mg Tab.Er.12h) 400 mg PO BEDTIME [facility] Last Admin: 05/08/23 21:29 Dose: 400 mg Cyanocobalamin (Cyanocobalamin (Vitamin B-12) 100 Mcg Tablet) 100 mcg PO DAILY [facility] Last Admin: 05/08/23 08:18 Dose: 100 mcg Furosemide (Furosemide 20 Mg Tablet) 20 mg PO DAILY [facility]; Protocol Last Admin: 05/08/23 08:18 Dose: 20 mg Lorazepam (Lorazepam 1 Mg Tablet) 1 mg PO BEDTIME [facility] Last Admin: 05/08/23 21:29 Dose: 1 mg Lorazepam (Lorazepam 1 Mg Tablet) 1 mg PO BEDTIME PRN PRN Reason: Insomnia Last Admin: 04/12/23 23:40 Dose: 1 mg Magnesium Hydroxide (Milk Of Magnesia 30 Ml Oral.Susp) 30 ml PO DAILY PRN PRN Reason: Constipation Last Admin: 05/08/23 21:36 Dose: 30 ml Magnesium Oxide (Magnesium Oxide 400 Mg Tablet) 400 mg PO DAILY [facility] Last Admin: 05/08/23 08:18 Dose: 400 mg Melatonin (Melatonin 3 Mg Tablet) 9 mg PO BEDTIME [facility] Last Admin: 05/08/23 21:29 Dose: 9 mg Metoprolol Succinate (Metoprolol Succinate Er 25 Mg Tab.Er.24h) 25 mg PO DAILY [facility]; Protocol Last Admin: 05/08/23 08:18 Dose: 25 mg Multi-Ingred Medicated Throat Noble (Throat Noble, Medicated 177 Ml Bottle) 1 spray MUCOUS MEM Q2H PRN PRN Reason: Sore Throat Last Admin: 04/23/23 09:11 Dose: 1 spray Pt Own (Trulicity 3 (Mg)) 3 mg SUBCUT Q7D [facility] Last Admin: 05/02/23 11:58 Dose: 3 mg Ondansetron HCl (Ondansetron Odt 4 Mg Tab.Rapdis) 4 mg TRANSLINGU Q6H PRN PRN Reason: Nausea Last Admin: 05/08/23 22:09 Dose: 4 mg Polyethylene Glycol (Polyethylene Glycol 3350 17 Gm Powd.Pack) 17 gm PO DAILY PRN PRN Reason: Constipation Last Admin: 03/30/23 13:46 Dose: 17 gm Quetiapine Fumarate (Quetiapine Fumarate 50 Mg Tablet) 50 mg PO BID PRN PRN Reason: becca, agitation Last Admin: 04/24/23 21:38 Dose: 50 mg Quetiapine Fumarate (Quetiapine Fumarate 400 Mg Tablet) 400 mg PO BEDTIME [facility] Last Admin: 05/08/23 21:29 Dose: 400 mg Thyroid (Thyroid,Pork 30 Mg Tablet) 15 mg PO DAILY@0630 [facility] Last Admin: 05/09/23 06:07 Dose: 15 mg Vitamin D (Cholecalciferol (Vitamin D3) 10 Mcg Tablet) 10 mcg PO DAILY [facility] Last Admin: 05/08/23 08:18 Dose: 10 mcg Zolpidem Tartrate (Zolpidem Tartrate 5 Mg Tablet) 5 mg PO BEDTIME [facility] Last Admin: 05/08/23 21:29 Dose: 5 mg Allergies Allergies Allergy/AdvReac Type Severity Reaction Status Date / Time amoxicillin Allergy Unknown Unknown Uncoded 03/25/23 11:07 Pt states no food allergy Allergy Unknown Unknown Uncoded 03/25/23 11:07 Assessment & Plan Assessment & Plan (1) Bipolar affective disorder, manic, severe, with psychotic behavior: Status: Acute Code(s): F31.2 - Bipolar disorder, current episode manic severe with psychotic features Assessment and Plan: 04/12/23 ongoing becca but seems less labile and pressured today- more cooperative with medical care (2) PTSD (post-traumatic stress disorder): Status: Acute Code(s): F43.10 - Post-traumatic stress disorder, unspecified Plan 62 yo female, history of PTSD, Bipolar Disorder with Psychosis, self presents reporting she has stopped medications. She asks to go to [place], however, is willing to work with the team on M5 at this time. She has stopped meds and is willing to re-start. She has several requests regarding meds which were addressed, however, she will be making further requests as her treatment continues. At this time, she reports being controlled by Estefania Mosqueda in all aspects of her life. This has caused great fear and anxiety. Pt has written several pages regarding this issue and is willing to share these. During our meeting she presents with acute becca, feeling overwhelmed with being controlled and vulnerable. Attempted to offer support, structure, safety for pt today. She has been able to appear to move freely in milieu, sing, dance and appears to feel comfortable and safe while settling in. Plan: Re-establish regime, medical and psychiatric Abilify 5 mg daily- pt request this trial, reports effective history. Today, pt has had ambivalence about Miralax order, asking ~7 times to start and stop. As of this writing, she asks that we not put it on her list of meds. Full milieu Collateral contact Diagnostics as needed. 03/28: Continue current regimen and plans 03/29: Continue current regimen and plans. Increased Abilify to 10 mg and Ambien to 10 mg 03/30: Continue current plans and regimen 03/31: Will file Section 7 on 04/01. 04/02/23: DC Seroquel at HS Increase Trazodone to 75 mg HS. x1. Rockin to stop 04/03. 04/03/23: Increase Abilify to 10 mg bid 04/04: Continue current management and treatment plan. 04/05: check Tegretol level in AM and consider titration based on level and consider titration of Abilify. 04/06: Pt declines Abilify titration at this time. TDN 04/08. 04/08: Section 7, HCP activation 04/09: Encourage treatment with [facility] 04/11/23 continues labile some struggle around diabetes care- 04/12/23 Hold off on Abilify injectable until clear whether or not Abilify will be helpful Abilify 15 mg twice a day morning and after late afternoon Seroquel at bedtime continue Tegretol 04/14/23 Abilify 15 bid seroquel hs encourage change to invega continues psychotic 04/15/23 Depakote 250 bid evaluate response to abilify 04/16/2023 Patient has had no clear response to Abilify floridly delusional early based thinking irritable preoccupied Reportedly had done well in the past on Invega does not wish to retry this discussed restarting therapeutic dose Seroquel which patient did eventually discontinue recently versus Vraylar for manic psychosis which she is agreeable to try 04/17/23 Depakote 250 bid invega po taper abilify 04/17 Patient more organized than she has been in the past. Knitting Machine Tender mentioned this and patient agreed saying that her mind is not so racey... Patient actually reading a book today as well Earlier today she initially refused Invega but then decided to take it. She talked with typewriter tester saying she thought maybe she should be on Invega and that she should be on Latuda instead however she agreed to continue with Dr. Krueger's plan and did take the Invega and Depakote and said she would continue to do so. Patient expressed and nursing that she was afraid that if she took Invega she would end up on Invega Sustenna, the shot which he does not want. -Continue Depakote 250 mg b.i.d. -Continue Invega -Starting Trulicity today. -Will DC POC qid (but leave a daily POC at patients request); will dc insulin sliding scale; patient has not had blood glucose over 160 despite 4 readings a day and always refuses insulin anyway. 04/18 Today Patient with a little more pressured speech and expressing paranoid delusions than yesterday; has been refusing Seroquel at bedtime. Today had a long list of things that she wanted to communicate some mildly relevant others not; she talked about the [facility] a following her and how she has numerous documents on her laptop proving this, where should she submit these documents etc. -tegretol level therapeutic -associated labs WNL 04/20/23 Inc depakote as tolerated tegretol abilify not helpful inc invega 6 mg daily has pending civil commitment 04/21/23 Pt refusing invega would file for affirmed hcp will try and coordinate with hcp 04/22/23 Increase tegretol to 200 mg a.m. XR and 400 mg XR pm Refused Invega but will continue to offer Asks that hydroxyzine be stopped Ambien 5 mg hs prn Decrease Depakote to 250 mg daily- that is what I will take, take it or leave it. 04/23/23 Discontinue Invega Increase Seroquel to 125 mg HS 04/24/23 Continue tx. 04/25/2023: Continue current regimen and plans. 04/26/2023: Continue current regimen and plans. 04/28/23: Increase Seroquel to 200 mg HS Increase Tegretol XR to 400 mg bid Melatonin 6 mg x 1 this evening for trial. 04/29/23: Continue Tx. 04/30/23: Continue Tx. 05/01/23: Continue Tx. Diagnostics in the a.m. 05/02/23: continue current management and treatment plan. 05/02: continue current management and treatment plan. 05/05/23: HCP activation today. Begin treatment planning with family. 05/07/23: Increase Melatonin to 9 mg HS Family meeting 05/12/23 5pm 05/08/23: Increase Seroquel to 400 mg HS [facility] process to [facility] per family request initiated. Possible transfer on 05/11/23. 05/09/23 -[facility] Patient educated on: other Informed Consent: understands Reason for continued inpatient stay Substantial Risk for: rapid decompensation Time Spent With Patient Time: Total time managing care of this patient today ____ minutes.
[2023-05-09 13:05] LABS: Carbamazepine Tegretol 8.2 mcg/mL (5.0-12.0)
--- NOTE | 2023-05-09 13:14 | PC.NURSE ---
called pharmacy to obtain pt's scheduled Trulicity. aircraft ordnance technician stated she was unable to find the medication and will call the pharmacist to see where it was placed. Kisha told this nurse she will message her with an answer back shortly. Will continue to follow-up
[2023-05-09 18:00] VITALS: BP 140/86; PULSE 98; RESP 18
[2023-05-09] MEDS: QUEtiapine Fumarate 400 MG TABLET PO (20:24)
[2023-05-09] MEDS: Atorvastatin Calcium 40 MG TABLET PO (20:24)
[2023-05-09] MEDS: Melatonin 3 MG TABLET 9 MG PO (20:24)
[2023-05-09] MEDS: Zolpidem Tartrate 5 MG TABLET PO (20:24)
[2023-05-09] MEDS: carBAMazepine ER 200 MG TAB.ER.12H 400 MG PO (20:25)
[2023-05-09] MEDS: LORazepam 1 MG TABLET PO (20:25)
[2023-05-10 08:34] VITALS: BP 168/80; PULSE 98; RESP 16; TEMP 36.8; O2SAT 97
[2023-05-10 08:34] LABS: Glucose, Whole Blood 120 mg/dL (60-115)
[2023-05-10] MEDS: Aspirin Enteric Coated 81 MG TABLET.DR PO (08:52)
[2023-05-10] MEDS: Metoprolol Succinate ER 25 MG TAB.ER.24H PO (08:52)
[2023-05-10] MEDS: amLODIPine Besylate 2.5 MG TABLET PO (08:52)
[2023-05-10] MEDS: Cholecalciferol (Vitamin D3) 10 MCG TABLET PO (08:52)
[2023-05-10] MEDS: Furosemide 20 MG TABLET PO (08:52)
[2023-05-10] MEDS: carBAMazepine ER 100 MG TAB.ER.12H 300 MG PO (08:52)
[2023-05-10] MEDS: Magnesium Oxide 400 MG TABLET PO (08:52)
[2023-05-10] MEDS: Cyanocobalamin (Vitamin B-12) 100 MCG TABLET PO (08:53)
[2023-05-10] MEDS: Benztropine Mesylate 1 MG TABLET PO (08:53)
[2023-05-10] MEDS: Milk of Magnesia 30 ML ORAL.SUSP PO (10:15)
--- NOTE | 2023-05-10 12:42 | HO.PSYCHPN ---
Subjective Subjective Date of Service: 05/10/23 Reason For Visit: Bipolar Disorder manic psychosis Subjective Notes: Section 7 Interim History: 62 yo who was up all night and now seems the SAME as she was 4 weeks ago - with extreme Loose associations and grandiosity- Reports she was awake all night and that a male meter was put in her body, doing voices That her identity was stollen by a tierra who had incest with her body with a lieutenant Aware she is going to be transfered to another hospital at pt and family's request. Reports she would like Roselyn Carnes as her emergency contact from now on. Medication Compliance: Yes (? if ativan fell off renewals last pm, or if she is cheeking meds to explain this drop in improvement) Side effects from medications: No Attending Groups: Intermittent Review of Systems Acute medical concerns: No Medical Review of Systems: unchanged Mental Status Exam Mental Status Exam Patient Appearance: Well Grooomed Patient Orientation: Person, Place, Time and Situation Level of Consciousness: Awake Patient Behavior: Talkative, Hyperactive, Hypersexual, Resistive to Care, Invasion - Personal Space and Impulsive Mood Description: Expansive Affect Description: Elated Patient Cognition Impaired: No Ability to Follow Directions: Fair Speech Pattern: Clear Delusions: Being Controlled and Grandiose Thought Process: Illogical Thought Content: positive for Flight of Ideas Depressive Symptoms: Insomnia Abnormal Motor Activity Signs and Symptoms: Restlessness Judgement: Poor Diagnostics Vital Signs (24Hr): Vital Signs - 24 hr 05/09/23 18:00 05/10/23 08:34 Temperature 98.2 F Pulse Rate 98 98 Respiratory Rate 18 16 Blood Pressure 140/86 H 168/80 H Pulse Oximetry 97 Oxygen Delivery Method Room Air BMI result Body Mass Index 36.2 Labs 05/09/23 07:31 05/09/23 07:31 Labs: Laboratory Results - last 48 hr 05/09/23 05/09/23 05/10/23 07:31 08:27 08:30 WBC 9.3 RBC 3.74 L Hgb 11.7 L Hct 36.3 L MCV 97.1 MCH 31.3 MCHC 32.2 RDW 13.3 Plt Count 177 MPV 10.0 Immature Gran % (Auto) 0.3 Neut % (Auto) 50.7 Lymph % (Auto) 39.8 Lake % (Auto) 6.4 Eos % (Auto) 2.6 Baso % (Auto) 0.2 Lymph # (Auto) 3.7 Lake # (Auto) 0.6 Eos # (Auto) 0.2 Baso # (Auto) 0.0 Abs Immat Gran (auto) 0.03 Absolute Neuts (auto) 4.7 Absolute Nucleated RBC 0.000 Nucleated RBC % (auto) 0.0 Sodium 141 Potassium 4.7 Chloride 107 Carbon Dioxide 28 Anion Gap 11 L BUN 15 Creatinine 0.66 Estim Creat Clear Calc 107.2 Estimated GFR > 60 POC Glucose 127 H 120 H Random Glucose 97 Calcium 8.2 L D Total Bilirubin 0.3 AST 16 ALT 19 Alkaline Phosphatase 68 Ammonia 16 Total Protein 5.6 L Albumin 3.3 L Carbamazepine 8.2 Medications Medications Current Medications Acetaminophen (Acetaminophen 325 Mg Tablet) 650 mg PO Q6H PRN PRN Reason: Headache/Pain Mild Scale (1-3) Al Hydroxide/Mg Hydroxide (Magnesium Hydrox/Alum Hydrox 30 Ml Oral.Susp) 30 ml PO Q6H PRN PRN Reason: Heartburn/Nausea Last Admin: 05/02/23 20:37 Dose: 30 ml Amlodipine Besylate (Amlodipine Besylate 2.5 Mg Tablet) 2.5 mg PO DAILY [facility]; Protocol Last Admin: 05/10/23 08:52 Dose: 2.5 mg Aspirin (Aspirin Enteric Coated 81 Mg Tablet.Dr) 81 mg PO DAILY [facility] Last Admin: 05/10/23 08:52 Dose: 81 mg Atorvastatin Calcium (Atorvastatin Calcium 40 Mg Tablet) 40 mg PO BEDTIME [facility] Last Admin: 05/09/23 20:24 Dose: 40 mg Benzocaine (Throat Lozenge, Medicated Lozenge) 1 lozenge MUCOUS MEM Q2H PRN PRN Reason: Sore Throat Last Admin: 04/25/23 17:45 Dose: 1 lozenge Benztropine Mesylate (Benztropine Mesylate 1 Mg Tablet) 1 mg PO DAILY [facility] Last Admin: 05/10/23 08:53 Dose: 1 mg Carbamazepine (Carbamazepine Er 100 Mg Tab.Er.12h) 300 mg PO DAILY [facility] Last Admin: 05/10/23 08:52 Dose: 300 mg Carbamazepine (Carbamazepine Er 200 Mg Tab.Er.12h) 400 mg PO BEDTIME [facility] Last Admin: 05/09/23 20:25 Dose: 400 mg Cyanocobalamin (Cyanocobalamin (Vitamin B-12) 100 Mcg Tablet) 100 mcg PO DAILY [facility] Last Admin: 05/10/23 08:53 Dose: 100 mcg Furosemide (Furosemide 20 Mg Tablet) 20 mg PO DAILY [facility]; Protocol Last Admin: 05/10/23 08:52 Dose: 20 mg Magnesium Hydroxide (Milk Of Magnesia 30 Ml Oral.Susp) 30 ml PO DAILY PRN PRN Reason: Constipation Last Admin: 05/10/23 10:15 Dose: 30 ml Magnesium Oxide (Magnesium Oxide 400 Mg Tablet) 400 mg PO DAILY [facility] Last Admin: 05/10/23 08:52 Dose: 400 mg Melatonin (Melatonin 3 Mg Tablet) 9 mg PO BEDTIME [facility] Last Admin: 05/09/23 20:24 Dose: 9 mg Metoprolol Succinate (Metoprolol Succinate Er 25 Mg Tab.Er.24h) 25 mg PO DAILY [facility]; Protocol Last Admin: 05/10/23 08:52 Dose: 25 mg Multi-Ingred Medicated Throat [place] (Throat [place], Medicated 177 Ml Bottle) 1 spray MUCOUS MEM Q2H PRN PRN Reason: Sore Throat Last Admin: 04/23/23 09:11 Dose: 1 spray Pt Own (Trulicity 3 (Mg)) 3 mg SUBCUT Q7D [facility] Last Admin: 05/09/23 14:07 Dose: 3 mg Ondansetron HCl (Ondansetron Odt 4 Mg Tab.Rapdis) 4 mg TRANSLINGU Q6H PRN PRN Reason: Nausea Last Admin: 05/08/23 22:09 Dose: 4 mg Polyethylene Glycol (Polyethylene Glycol 3350 17 Gm Powd.Pack) 17 gm PO DAILY PRN PRN Reason: Constipation Last Admin: 03/30/23 13:46 Dose: 17 gm Quetiapine Fumarate (Quetiapine Fumarate 50 Mg Tablet) 50 mg PO BID PRN PRN Reason: becca, agitation Last Admin: 04/24/23 21:38 Dose: 50 mg Quetiapine Fumarate (Quetiapine Fumarate 400 Mg Tablet) 400 mg PO BEDTIME [facility] Last Admin: 05/09/23 20:24 Dose: 400 mg Thyroid (Thyroid,Pork 30 Mg Tablet) 15 mg PO DAILY@0630 [facility] Last Admin: 05/10/23 08:52 Dose: Not Given Vitamin D (Cholecalciferol (Vitamin D3) 10 Mcg Tablet) 10 mcg PO DAILY [facility] Last Admin: 05/10/23 08:52 Dose: 10 mcg Zolpidem Tartrate (Zolpidem Tartrate 5 Mg Tablet) 5 mg PO BEDTIME [facility] Last Admin: 05/09/23 20:24 Dose: 5 mg Allergies Allergies Allergy/AdvReac Type Severity Reaction Status Date / Time amoxicillin Allergy Unknown Unknown Uncoded 03/25/23 11:07 Pt states no food allergy Allergy Unknown Unknown Uncoded 03/25/23 11:07 Assessment & Plan Assessment & Plan (1) Bipolar affective disorder, manic, severe, with psychotic behavior: Status: Acute Code(s): F31.2 - Bipolar disorder, current episode manic severe with psychotic features Assessment and Plan: 04/12/23 ongoing becca but seems less labile and pressured today- more cooperative with medical care (2) PTSD (post-traumatic stress disorder): Status: Acute Code(s): F43.10 - Post-traumatic stress disorder, unspecified Plan 62 yo female, history of PTSD, Bipolar Disorder with Psychosis, self presents reporting she has stopped medications. She asks to go to [place], however, is willing to work with the team on M5 at this time. She has stopped meds and is willing to re-start. She has several requests regarding meds which were addressed, however, she will be making further requests as her treatment continues. At this time, she reports being controlled by Estefania Mosqueda in all aspects of her life. This has caused great fear and anxiety. Pt has written several pages regarding this issue and is willing to share these. During our meeting she presents with acute becca, feeling overwhelmed with being controlled and vulnerable. Attempted to offer support, structure, safety for pt today. She has been able to appear to move freely in milieu, sing, dance and appears to feel comfortable and safe while settling in. Plan: Re-establish regime, medical and psychiatric Abilify 5 mg daily- pt request this trial, reports effective history. Today, pt has had ambivalence about Miralax order, asking ~7 times to start and stop. As of this writing, she asks that we not put it on her list of meds. Full milieu Collateral contact Diagnostics as needed. 03/28: Continue current regimen and plans 03/29: Continue current regimen and plans. Increased Abilify to 10 mg and Ambien to 10 mg 03/30: Continue current plans and regimen 03/31: Will file Section 7 on 04/01. 04/02/23: DC Seroquel at HS Increase Trazodone to 75 mg HS. x1. Rockin to stop 04/03. 04/03/23: Increase Abilify to 10 mg bid 04/04: Continue current management and treatment plan. 04/05: check Tegretol level in AM and consider titration based on level and consider titration of Abilify. 04/06: Pt declines Abilify titration at this time. TDN 04/08. 04/08: Section 7, HCP activation 04/09: Encourage treatment with [facility] 04/11/23 continues labile some struggle around diabetes care- 04/12/23 Hold off on Abilify injectable until clear whether or not Abilify will be helpful Abilify 15 mg twice a day morning and after late afternoon Seroquel at bedtime continue Tegretol 04/14/23 Abilify 15 bid seroquel hs encourage change to invega continues psychotic 04/15/23 Depakote 250 bid evaluate response to abilify 04/16/2023 Patient has had no clear response to Abilify floridly delusional early based thinking irritable preoccupied Reportedly had done well in the past on Invega does not wish to retry this discussed restarting therapeutic dose Seroquel which patient did eventually discontinue recently versus Vraylar for manic psychosis which she is agreeable to try 04/17/23 Depakote 250 bid invega po taper abilify 04/17 Patient more organized than she has been in the past. Lifestyle Block Farmer mentioned this and patient agreed saying that her mind is not so racey... Patient actually reading a book today as well Earlier today she initially refused Invega but then decided to take it. She talked with fiction writer saying she thought maybe she should be on Invega and that she should be on Latuda instead however she agreed to continue with Dr. Krueger's plan and did take the Invega and Depakote and said she would continue to do so. Patient expressed and nursing that she was afraid that if she took Invega she would end up on Invega Sustenna, the shot which he does not want. -Continue Depakote 250 mg b.i.d. -Continue Invega -Starting Trulicity today. -Will DC POC qid (but leave a daily POC at patients request); will dc insulin sliding scale; patient has not had blood glucose over 160 despite 4 readings a day and always refuses insulin anyway. 04/18 Today Patient with a little more pressured speech and expressing paranoid delusions than yesterday; has been refusing Seroquel at bedtime. Today had a long list of things that she wanted to communicate some mildly relevant others not; she talked about the [facility] a following her and how she has numerous documents on her laptop proving this, where should she submit these documents etc. -tegretol level therapeutic -associated labs WNL 04/20/23 Inc depakote as tolerated tegretol abilify not helpful inc invega 6 mg daily has pending civil commitment 04/21/23 Pt refusing invega would file for affirmed hcp will try and coordinate with hcp 04/22/23 Increase tegretol to 200 mg a.m. XR and 400 mg XR pm Refused Invega but will continue to offer Asks that hydroxyzine be stopped Ambien 5 mg hs prn Decrease Depakote to 250 mg daily- that is what I will take, take it or leave it. 04/23/23 Discontinue Invega Increase Seroquel to 125 mg HS 04/24/23 Continue tx. 04/25/2023: Continue current regimen and plans. 04/26/2023: Continue current regimen and plans. 04/28/23: Increase Seroquel to 200 mg HS Increase Tegretol XR to 400 mg bid Melatonin 6 mg x 1 this evening for trial. 04/29/23: Continue Tx. 04/30/23: Continue Tx. 05/01/23: Continue Tx. Diagnostics in the a.m. 05/02/23: continue current management and treatment plan. 05/02: continue current management and treatment plan. 05/05/23: HCP activation today. Begin treatment planning with family. 05/07/23: Increase Melatonin to 9 mg HS Family meeting 05/12/23 5pm 05/08/23: Increase Seroquel to 400 mg HS [facility] request initiated. Possible transfer on 05/11/23. 05/09/23 -CTP 05/10/23 seems back to where she was 4 weeks ago today- renewed ativan hs and prn Patient educated on: diagnosis Informed Consent: does not understand and further education needed Reason for continued inpatient stay Substantial Risk for: rapid decompensation Time Spent With Patient Time: Total time managing care of this patient today ____ minutes.
[2023-05-10] MEDS: LORazepam 1 MG TABLET PO ×2 (17:17→22:16)
[2023-05-10] MEDS: Melatonin 3 MG TABLET 9 MG PO (22:14)
[2023-05-10] MEDS: carBAMazepine ER 200 MG TAB.ER.12H 400 MG PO (22:15)
[2023-05-10] MEDS: Zolpidem Tartrate 5 MG TABLET PO (22:15)
[2023-05-10] MEDS: QUEtiapine Fumarate 400 MG TABLET PO (22:16)
[2023-05-10 22:20] VITALS: BP 133/68; PULSE 92; TEMP 37.1
[2023-05-11 08:00] VITALS: BP 124/69; PULSE 94; TEMP 36.7; O2SAT 97
[2023-05-11 08:32] LABS: Glucose, Whole Blood 129 mg/dL (60-115)
[2023-05-11] MEDS: carBAMazepine ER 100 MG TAB.ER.12H 300 MG PO (08:44)
[2023-05-11] MEDS: Magnesium Oxide 400 MG TABLET PO (08:45)
[2023-05-11] MEDS: Cholecalciferol (Vitamin D3) 10 MCG TABLET PO (08:45)
[2023-05-11] MEDS: amLODIPine Besylate 2.5 MG TABLET PO (08:45)
[2023-05-11] MEDS: Benztropine Mesylate 1 MG TABLET PO (08:45)
[2023-05-11] MEDS: Aspirin Enteric Coated 81 MG TABLET.DR PO (08:45)
[2023-05-11] MEDS: Cyanocobalamin (Vitamin B-12) 100 MCG TABLET PO (08:45)
[2023-05-11] MEDS: Furosemide 20 MG TABLET PO (08:45)
[2023-05-11] MEDS: Metoprolol Succinate ER 25 MG TAB.ER.24H PO (08:46)
--- NOTE | 2023-05-11 12:10 | P.PNPSI_ITS ---
Subjective Subjective Date of Service: 05/11/23 Reason For Visit: Bipolar Disorder manic psychosis Interim History: Pt remains with same presentation met with patient who is agrees with and looking forward to transfer to [facility] spoke w/ MAIL INSERTER at [facility] who knows patient well from previous admissions to [place]; discussed case and they agree to proceed w/ transfer. Mental Status Exam Mental Status Exam Patient Appearance: Well Grooomed Patient Orientation: Person, Place, Time and Situation Level of Consciousness: Awake Patient Behavior: Talkative, Hyperactive, Hypersexual, Resistive to Care, Invasion - Personal Space and Impulsive Mood Description: Expansive Affect Description: Elated Patient Cognition Impaired: No Ability to Follow Directions: Fair Speech Pattern: Clear Delusions: Being Controlled and Grandiose Thought Process: Racing, Distracted and Goal Oriented (can be) Thought Content: positive for Flight of Ideas Depressive Symptoms: Insomnia Abnormal Motor Activity Signs and Symptoms: Restlessness Judgement: Poor Judgement and Insight: poor Diagnostics Vital Signs (24Hr): Vital Signs - 24 hr 05/10/23 22:20 05/11/23 08:00 Temperature 98.8 F 98.1 F Pulse Rate 92 94 Blood Pressure 133/68 124/69 Pulse Oximetry 97 Oxygen Delivery Method Room Air BMI result Body Mass Index 36.2 Labs 05/09/23 07:31 05/09/23 07:31 Labs: Laboratory Results - last 48 hr 05/09/23 05/10/23 05/11/23 07:31 08:30 08:26 POC Glucose 120 H 129 H Carbamazepine 8.2 Medications Medications Current Medications Acetaminophen (Acetaminophen 325 Mg Tablet) 650 mg PO Q6H PRN PRN Reason: Headache/Pain Mild Scale (1-3) Al Hydroxide/Mg Hydroxide (Magnesium Hydrox/Alum Hydrox 30 Ml Oral.Susp) 30 ml PO Q6H PRN PRN Reason: Heartburn/Nausea Last Admin: 05/02/23 20:37 Dose: 30 ml Amlodipine Besylate (Amlodipine Besylate 2.5 Mg Tablet) 2.5 mg PO DAILY [facility]; Protocol Last Admin: 05/11/23 08:45 Dose: 2.5 mg Aspirin (Aspirin Enteric Coated 81 Mg Tablet.) 81 mg PO DAILY [facility] Last Admin: 05/11/23 08:45 Dose: 81 mg Atorvastatin Calcium (Atorvastatin Calcium 40 Mg Tablet) 40 mg PO BEDTIME [facility] Last Admin: 05/10/23 22:14 Dose: Not Given Benzocaine (Throat Lozenge, Medicated Lozenge) 1 lozenge MUCOUS MEM Q2H PRN PRN Reason: Sore Throat Last Admin: 04/25/23 17:45 Dose: 1 lozenge Benztropine Mesylate (Benztropine Mesylate 1 Mg Tablet) 1 mg PO DAILY [facility] Last Admin: 05/11/23 08:45 Dose: 1 mg Carbamazepine (Carbamazepine Er 100 Mg Tab.Er.12h) 300 mg PO DAILY [facility] Last Admin: 05/11/23 08:44 Dose: 300 mg Carbamazepine (Carbamazepine Er 200 Mg Tab.Er.12h) 400 mg PO BEDTIME [facility] Last Admin: 05/10/23 22:15 Dose: 400 mg Cyanocobalamin (Cyanocobalamin (Vitamin B-12) 100 Mcg Tablet) 100 mcg PO DAILY [facility] Last Admin: 05/11/23 08:45 Dose: 100 mcg Furosemide (Furosemide 20 Mg Tablet) 20 mg PO DAILY [facility]; Protocol Last Admin: 05/11/23 08:45 Dose: 20 mg Lorazepam (Lorazepam 1 Mg Tablet) 1 mg PO BEDTIME [facility] Last Admin: 05/10/23 22:16 Dose: 1 mg Lorazepam (Lorazepam 1 Mg Tablet) 1 mg PO Q4H PRN PRN Reason: becca Last Admin: 05/10/23 17:17 Dose: 1 mg Magnesium Hydroxide (Milk Of Magnesia 30 Ml Oral.Susp) 30 ml PO DAILY PRN PRN Reason: Constipation Last Admin: 05/10/23 10:15 Dose: 30 ml Magnesium Oxide (Magnesium Oxide 400 Mg Tablet) 400 mg PO DAILY [facility] Last Admin: 05/11/23 08:45 Dose: 400 mg Melatonin (Melatonin 3 Mg Tablet) 9 mg PO BEDTIME [facility] Last Admin: 05/10/23 22:14 Dose: 9 mg Metoprolol Succinate (Metoprolol Succinate Er 25 Mg Tab.Er.24h) 25 mg PO DAILY [facility]; Protocol Last Admin: 05/11/23 08:46 Dose: 25 mg Multi-Ingred Medicated Throat Murray (Throat Murray, Medicated 177 Ml Bottle) 1 spray MUCOUS MEM Q2H PRN PRN Reason: Sore Throat Last Admin: 04/23/23 09:11 Dose: 1 spray Pt Own (Trulicity 3 (Mg)) 3 mg SUBCUT Q7D [facility] Last Admin: 05/09/23 14:07 Dose: 3 mg Ondansetron HCl (Ondansetron Odt 4 Mg Tab.Rapdis) 4 mg TRANSLINGU Q6H PRN PRN Reason: Nausea Last Admin: 05/08/23 22:09 Dose: 4 mg Polyethylene Glycol (Polyethylene Glycol 3350 17 Gm Powd.Pack) 17 gm PO DAILY PRN PRN Reason: Constipation Last Admin: 03/30/23 13:46 Dose: 17 gm Quetiapine Fumarate (Quetiapine Fumarate 50 Mg Tablet) 50 mg PO BID PRN PRN Reason: becca, agitation Last Admin: 04/24/23 21:38 Dose: 50 mg Quetiapine Fumarate (Quetiapine Fumarate 400 Mg Tablet) 400 mg PO BEDTIME [facility] Last Admin: 05/10/23 22:16 Dose: 400 mg Thyroid (Thyroid,Pork 30 Mg Tablet) 15 mg PO DAILY@0630 [facility] Last Admin: 05/11/23 06:05 Dose: Not Given Vitamin D (Cholecalciferol (Vitamin D3) 10 Mcg Tablet) 10 mcg PO DAILY [facility] Last Admin: 05/11/23 08:45 Dose: 10 mcg Zolpidem Tartrate (Zolpidem Tartrate 5 Mg Tablet) 5 mg PO BEDTIME [facility] Last Admin: 05/10/23 22:15 Dose: 5 mg Allergies Allergies Allergy/AdvReac Type Severity Reaction Status Date / Time amoxicillin Allergy Unknown Unknown Uncoded 03/25/23 11:07 Pt states no food allergy Allergy Unknown Unknown Uncoded 03/25/23 11:07 Assessment & Plan Assessment & Plan (1) Bipolar affective disorder, manic, severe, with psychotic behavior: Status: Acute Code(s): F31.2 - Bipolar disorder, current episode manic severe with psychotic features Assessment and Plan: 04/12/23 ongoing becca but seems less labile and pressured today- more cooperative with medical care (2) PTSD (post-traumatic stress disorder): Status: Acute Code(s): F43.10 - Post-traumatic stress disorder, unspecified Plan 62 yo female, history of PTSD, Bipolar Disorder with Psychosis, self presents reporting she has stopped medications. She asks to go to [facility], however, is willing to work with the team on at this time. She has stopped meds and is willing to re-start. She has several requests regarding meds which were addressed, however, she will be making further requests as her treatment continues. At this time, she reports being controlled by Estefania Mosqueda in all aspects of her life. This has caused great fear and anxiety. Pt has written several pages regarding this issue and is willing to share these. During our meeting she presents with acute becca, feeling overwhelmed with being controlled and vulnerable. Attempted to offer support, structure, safety for pt today. She has been able to appear to move freely in milieu, sing, dance and appears to feel comfortable and safe while settling in. Plan: Re-establish regime, medical and psychiatric Abilify 5 mg daily- pt request this trial, reports effective history. Today, pt has had ambivalence about Miralax order, asking ~7 times to start and stop. As of this writing, she asks that we not put it on her list of meds. Full milieu Collateral contact Diagnostics as needed. 03/28: Continue current regimen and plans 03/29: Continue current regimen and plans. Increased Abilify to 10 mg and Ambien to 10 mg 03/30: Continue current plans and regimen 03/31: Will file Section 7 on 04/01. 04/02/23: DC Seroquel at HS Increase Trazodone to 75 mg HS. MR x1. Ceftin to stop 04/03. 04/03/23: Increase Abilify to 10 mg bid 04/04: Continue current management and treatment plan. 04/05: check Tegretol level in AM and consider titration based on level and consider titration of Abilify. 04/06: Pt declines Abilify titration at this time. TDN 04/08. 04/08: Section 7, HCP activation 04/09: Encourage treatment with [facility] 04/11/23 continues labile some struggle around diabetes care- 04/12/23 Hold off on Abilify injectable until clear whether or not Abilify will be helpful Abilify 15 mg twice a day morning and after late afternoon Seroquel at bedtime continue Tegretol 04/14/23 Abilify 15 bid seroquel hs encourage change to invega continues psychotic 04/15/23 Depakote 250 bid evaluate response to abilify 04/16/2023 Patient has had no clear response to Abilify floridly delusional early based thinking irritable preoccupied Reportedly had done well in the past on Invega does not wish to retry this discussed restarting therapeutic dose Seroquel which patient did eventually discontinue recently versus Vraylar for manic psychosis which she is agreeable to try 04/17/23 Depakote 250 bid invega po taper abilify 04/17 Patient more organized than she has been in the past. [employer] mentioned this and patient agreed saying that her mind is not so racey... Patient actually reading a book today as well Earlier today she initially refused Invega but then decided to take it. She talked with adjusto writer operator saying she thought maybe she should be on Invega and that she should be on Latuda instead however she agreed to continue with Dr. Krueger's plan and did take the Invega and Depakote and said she would continue to do so. Patient expressed and nursing that she was afraid that if she took Invega she would end up on Invega Sustenna, the shot which he does not want. -Continue Depakote 250 mg b.i.d. -Continue Invega -Starting Trulicity today. -Will DC POC qid (but leave a daily POC at patients request); will dc insulin sliding scale; patient has not had blood glucose over 160 despite 4 readings a day and always refuses insulin anyway. 04/18 Today Patient with a little more pressured speech and expressing paranoid delusions than yesterday; has been refusing Seroquel at bedtime. Today had a long list of things that she wanted to communicate some mildly relevant others not; she talked about the [facility] a following her and how she has numerous documents on her laptop proving this, where should she submit these documents etc. -tegretol level therapeutic -associated labs WNL 04/20/23 Inc depakote as tolerated tegretol abilify not helpful inc invega 6 mg daily has pending civil commitment 04/21/23 Pt refusing invega would file for affirmed hcp will try and coordinate with hcp 04/22/23 Increase tegretol to 200 mg a.m. XR and 400 mg XR pm Refused Invega but will continue to offer Asks that hydroxyzine be stopped Ambien 5 mg hs prn Decrease Depakote to 250 mg daily- that is what I will take, take it or leave it. 04/23/23 Discontinue Invega Increase Seroquel to 125 mg HS 04/24/23 Continue tx. 04/25/2023: Continue current regimen and plans. 04/26/2023: Continue current regimen and plans. 04/28/23: Increase Seroquel to 200 mg HS Increase Tegretol XR to 400 mg bid Melatonin 6 mg x 1 this evening for trial. 04/29/23: Continue Tx. 04/30/23: Continue Tx. 05/01/23: Continue Tx. Diagnostics in the a.m. 05/02/23: continue current management and treatment plan. 05/02: continue current management and treatment plan. 05/05/23: HCP activation today. Begin treatment planning with family. 05/07/23: Increase Melatonin to 9 mg HS Family meeting 05/12/23 5pm 05/08/23: Increase Seroquel to 400 mg HS Transfer process to [place] per family request initiated. Possible transfer on 05/11/23. 05/09/23 -CTP 05/10/23 seems back to where she was 4 weeks ago today- renewed ativan hs and prn 05/11/23 Pt remains with same presentation met with patient who is agrees with and looking forward to transfer to [facility] spoke w/ MAIL INSERTER at [facility] who knows patient well from previous admissions to [place]; discussed case and they agree to proceed w/ transfer. -transfer to [facility] set up by primary team; will proceed w/ transfer Patient educated on: diagnosis Informed Consent: does not understand Reason for continued inpatient stay Substantial Risk for: inability to function Time Spent With Patient Time: Total time managing care of this patient today ____ minutes.
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
== END 2023-05-11 15:22 | DRG 885 ==
LOC: HO.ED 12:19 → HO.PM5 03-26 12:14
PROVIDERS: Psychiatry & Neurology Psychiatry; Admitting Provider Clinical Nurse Specialist Psychiatric/Mental Health, Adult; Emergency Provider Emergency Medicine Emergency Medical Services; PCP Physician Assistant; Visit Provider Clinical Nurse Specialist Psychiatric/Mental Health, Adult
DX: F31.2 Bipolar disorder, current episode manic severe with psychotic features (principal); F43.10 Post-traumatic stress disorder, unspecified; E11.9 Type 2 diabetes mellitus without complications; I10 Essential (primary) hypertension; J10.1 Influenza due to other identified influenza virus with other respiratory manifestations; E78.5 Hyperlipidemia, unspecified; Z62.810 Personal history of physical and sexual abuse in childhood; Z20.822 Contact with and (suspected) exposure to COVID-19; Z79.82 Long term (current) use of aspirin; Z79.85 Long-term (current) use of injectable non-insulin antidiabetic drugs; Z79.899 Other long term (current) drug therapy
CPT/HCPCS: 0241U; 36415; 80053; 80061; 80156; 80307; 81001; 82140; 82607; 82746; 82947; 83036; 83735; 84439; 84443; 85025; 87086; 87635; 93005; 99285; S9485

== ENCOUNTER 2023-03-26 12:04 | Outpatient (BNV) | payer MEDICARE, BC, SELFPAY | END 2023-03-27 09:00 | PROVIDERS: Admitting Provider Clinical Nurse Specialist Psychiatric/Mental Health, Adult; Emergency Provider Emergency Medicine Emergency Medical Services; PCP Physician Assistant; Visit Provider Internal Medicine Cardiovascular Disease | DX: R94.31 Abnormal electrocardiogram [ECG] [EKG] (principal) | CPT/HCPCS: 93010 ==

== ENCOUNTER → 2023-03-26 12:04 | Outpatient (BNV) | payer MEDICARE, BC, SELFPAY | PROVIDERS: Admitting Provider Clinical Nurse Specialist Psychiatric/Mental Health, Adult; Emergency Provider Emergency Medicine Emergency Medical Services; PCP Physician Assistant; Visit Provider Psychiatry & Neurology Psychiatry | DX: F31.2 Bipolar disorder, current episode manic severe with psychotic features (principal); F43.11 Post-traumatic stress disorder, acute | CPT/HCPCS: 99232; 99499 ==

== ENCOUNTER → 2023-03-26 12:04 | Outpatient (BNV) | payer MEDICARE, BC, SELFPAY | PROVIDERS: Admitting Provider Clinical Nurse Specialist Psychiatric/Mental Health, Adult; Emergency Provider Emergency Medicine Emergency Medical Services; PCP Physician Assistant; Visit Provider Psychiatry & Neurology Psychiatry | DX: F31.2 Bipolar disorder, current episode manic severe with psychotic features (principal); F43.11 Post-traumatic stress disorder, acute | CPT/HCPCS: 90792; 99231; 99232; 99238; 99499 ==

== ENCOUNTER 2023-05-27 13:15 | Inpatient (IN) | payer MEDICARE, BC, SELFPAY ==
[2023-05-27] VITALS (9 sets, daily range): BP systolic 87–135; BP diastolic 38–66; PULSE 101–121; RESP 18–21; TEMP 37.4–39.2; O2SAT 88–99; BMI 35.5
--- NOTE | ~2023-05-27 | XR_ITS ---
EXAMINATION: XR CHEST CLINICAL INFORMATION: Hypoxia COMPARISON: Multiple prior examinations most recent 05/30/2023 TECHNIQUE: Frontal view of the chest was obtained. FINDINGS: Endotracheal tube 1.9 cm above daya, which is been pulled back compared with prior examination. Persistent diffuse bilateral lung opacities unchanged. This obscures evaluation of the cardiac mediastinal silhouette NG tube noted with the tip extending outside the [id number] the exam distally. XR/XR chest 1V IMPRESSION: 1. Endotracheal tube 1.9 cm above daya. 2. No change in diffuse bilateral lung opacities.
--- NOTE | ~2023-05-27 | XR_ITS ---
EXAMINATION: XR CHEST CLINICAL INFORMATION: Hypoxia COMPARISON: Chest radiograph from 06/05/2023 TECHNIQUE: Frontal view of the chest was obtained. FINDINGS: Endotracheal tube appears intervally removed. Enteric tube courses below left hemidiaphragm into the stomach. Redemonstrated multifocal bilateral airspace opacities relatively stable. Suspect small bilateral pleural effusions. No pneumothorax. Trachea is midline. Cardiac mediastinal silhouette is completely evaluated. Osseous structures are intact. Soft tissues are unremarkable XR/XR chest 1V IMPRESSION: 1. Interval removal of endotracheal tube. 2. Enteric tube courses below left hemidiaphragm into the stomach. 3. Redemonstrated multifocal bilateral airspace opacities relatively stable. 4. Suspect small bilateral pleural effusions.
--- NOTE | ~2023-05-27 | XR_ITS ---
EXAMINATION: XR CHEST CLINICAL INFORMATION: Question overload COMPARISON: 05/27/2023 TECHNIQUE: Frontal view of the chest was obtained. FINDINGS: Lung volumes are symmetric. There are regions of opacity in the mid and lower right lung, new from prior. There may also be mild left perihilar opacities. No evidence of pneumothorax. Trace pleural effusions cannot be excluded. The cardiomediastinal silhouette is stable. No acute osseous findings are seen. XR/XR chest 1V IMPRESSION: Areas of opacity in the mid and lower right lung, new from prior, and possibly additional milder opacities in the perihilar left lung. Appearance may represent edema in the proper clinical setting. Multifocal pneumonia could also have a similar appearance.
--- NOTE | ~2023-05-27 | XR_ITS ---
EXAMINATION: XR CHEST CLINICAL INFORMATION: Status post intubation. COMPARISON: Chest radiograph dated 06/08/2023 at 8:26 AM. TECHNIQUE: Frontal view of the chest was obtained. FINDINGS: There is a new endotracheal tube terminating 4.5 cm above the daya. There is an enteric tube crossing the diaphragm. The tip is collimated from the [id number]. Extensive bilateral airspace disease is redemonstrated and appears similar to the prior examination. There is no pneumothorax. No large pleural effusion. The cardiac silhouette is difficult to evaluate secondary to extensive airspace disease. No acute osseous abnormality. XR/XR chest 1V IMPRESSION: The endotracheal tube terminates 4.5 cm above the daya. Stable, extensive bilateral airspace disease.
--- NOTE | ~2023-05-27 | XR_ITS ---
EXAMINATION: XR CHEST CLINICAL INFORMATION: OG tube placement COMPARISON: Chest radiograph from 05/31/2019 TECHNIQUE: Frontal view of the chest was obtained. FINDINGS: Enteric courses below the left hemidiaphragm terminating in the stomach. Endotracheal tube approximately 4 cm from the level of daya. Redemonstration of diffuse bilateral radiopacities, left greater than right. No pneumothorax. Trachea is midline. Cardiac mediastinal silhouette is completely evaluated. Left pleural effusion not excluded. Osseous structures are intact. Soft tissues are unremarkable. XR/XR chest 1V IMPRESSION: 1. Enteric courses below the left hemidiaphragm terminating in the stomach. 2. Endotracheal tube approximately 4 cm from the level of daya. 3. Redemonstration of diffuse bilateral radiopacities, left greater than right. 4. Left pleural effusion not excluded.
--- NOTE | ~2023-05-27 | CT_ITS ---
EXAMINATION: CT ABDOMEN AND PELVIS WITH CONTRAST CLINICAL INFORMATION: Diarrhea and fever COMPARISON: None available. TECHNIQUE: Multidetector volumetric images were obtained from the superior aspect of the liver through the pubic symphysis following administration 85 mL of Omnipaque 350 intravenous contrast. Sagittal and coronal reformatted images were obtained on the technologist's workstation. Oral contrast: No This CT examination was performed using dose optimization techniques as appropriate, variously including the following: *Automated exposure control *Adjustment of mA and/or kV according to patient size (this includes techniques or standardized protocols for targeted exams where dose is matched to indication/reason for exam; i.e. extremities or head) *Use of iterative reconstruction technique DLP: 1044 mGy-cm FINDINGS: LUNG BASES: There is a 6 mm nodular density in the left lateral costophrenic sulcus (4:98). LIVER, GALLBLADDER, AND BILIARY TREE: The liver is normal in size, shape, and attenuation. No focal hepatic lesion or biliary ductal dilatation is present. Status post cholecystectomy. PANCREAS: Unremarkable. SPLEEN: Mild splenomegaly at 12.7 cm. ADRENAL GLANDS: Unremarkable. KIDNEYS AND URETERS: The kidneys are normal in size, shape, and attenuation. There is a 4 mm nonobstructing calculus in the left mid kidney. No hydronephrosis, hydroureter, or additional calculi seen. No perinephric stranding. A benign left lower pole 2.7 cm Bosniak class I renal cyst is noted which requires no additional imaging or follow up. No solid renal masses are seen. BLADDER: Bladder wall demonstrates symmetric thickening. GASTROINTESTINAL TRACT: The small and large bowel are unremarkable aside from some scattered colonic diverticula without diverticulitis. The appendix is unremarkable. ABDOMINAL WALL: No significant hernia is appreciated. LYMPH NODES: Normal. VASCULAR: Unremarkable. PELVIC VISCERA: The uterus and adnexa are unremarkable aside from a mild bulge at the fundus possibly related to a small subserosal fibroid.. OSSEOUS STRUCTURES: Unremarkable. CT/CT abdomen pelvis w IV con IMPRESSION: 1. A cause for the patient's diarrhea and fever has not been found. 2. Mild splenomegaly. 3. Nonobstructing 4 mm left renal calculus. 4. Colonic diverticulosis without diverticulitis. 5. 6 mm left lower lobe pulmonary nodule. According to the UPDATED 2017 Fleischner Society recommendations, the advised follow-up imaging for a single 6-8 mm solid nodule is follow-up CT at 6 to 12 months. In high-risk patients, subsequent CT follow-up at 18 to 24 months is recommended. In low-risk patients, subsequent CT follow-up at 18 to 24 months is optional.
--- NOTE | ~2023-05-27 | XR_ITS ---
EXAMINATION: X-RAY CHEST AND ABDOMEN CLINICAL INDICATION: Pneumonia, abdominal distention. COMPARISON: Chest radiograph 06/03/2023 and abdominal radiograph 06/03/2023. TECHNIQUE: AP views of the chest and abdomen. FINDINGS: Chest: The endotracheal tube terminates at 4 cm above the daya. An enteric tube courses into the abdomen and terminates at the level of the stomach. Stable enlargement of the cardiomediastinal silhouette. Increased diffuse bilateral airspace opacities more noticeable in the left mid to lower lung. Slightly increased layering left pleural effusion. No pneumothorax. No acute osseous findings. Abdomen: Recio catheter. Enteric tube terminates in the stomach. Nonobstructive bowel gas pattern and. No significant stool burden. No acute osseous findings. XR/XR chest 1V IMPRESSION: CHEST: 1. Endotracheal tube terminates at 4 cm above the daya. 2. Increased diffuse bilateral airspace opacities and layering left pleural effusion. ABDOMEN: 1. Nonobstructive bowel gas pattern. 2. No significant stool burden.
--- NOTE | ~2023-05-27 | XR_ITS ---
EXAMINATION: XR CHEST CLINICAL INFORMATION: Hypoxemia COMPARISON: 06/11/2023 TECHNIQUE: Frontal view of the chest was obtained. FINDINGS: Diffuse patchy groundglass opacities likely representing pulmonary edema or multifocal pneumonia has slightly improved on the right. Otherwise no significant change. No definite pleural effusion. Stable cardiomediastinal silhouette which is obscured by the left lower lobe opacities. Interval placement of a left chest wall cardiac pacer with leads projecting over the right atrium and right ventricle. No pneumothorax. XR/XR chest 1V IMPRESSION: Slight improvement in the diffuse ground glass/airspace opacities.
--- NOTE | ~2023-05-27 | XR_ITS ---
EXAMINATION: XR CHEST CLINICAL INFORMATION: Reintubation. COMPARISON: 06/05/2023 TECHNIQUE: Frontal view of the chest was obtained. FINDINGS: The endotracheal tube tip terminates approximately 4.5 cm above the daya. Nasogastric tube terminates in the stomach. There is stable extensive multifocal consolidation with air bronchograms. Cardiac silhouette is obscured. Left pleural effusion. XR/XR chest 1V IMPRESSION: No change in extensive multifocal consolidation with air bronchograms. Left pleural effusion.
--- NOTE | ~2023-05-27 | XR_ITS ---
EXAMINATION: XR CHEST CLINICAL INFORMATION: Hypoxia. COMPARISON: 06/08/2023 TECHNIQUE: Frontal view of the chest was obtained. FINDINGS: Low lung volumes. Diffuse opacification of bilateral hemithoraces. The appearance is similar to prior. Bilateral pleural effusions are suspected. Cardiac silhouette is obscured. XR/XR chest 1V IMPRESSION: Extensive bilateral airspace disease similar to prior. Bilateral pleural effusions are suspected.
--- NOTE | ~2023-05-27 | XR_ITS ---
EXAMINATION: XR CHEST CLINICAL INFORMATION: Fevers COMPARISON: None available. TECHNIQUE: Frontal view of the chest was obtained. FINDINGS: Reticular markings at the lung bases may represent atelectasis or mild inflammatory changes with no focal consolidation, edema, or pleural effusion. Normal cardiomediastinal silhouette. XR/XR chest 1V IMPRESSION: Reticular markings at the lung bases may represent atelectasis or mild inflammatory changes.
--- NOTE | ~2023-05-27 | US_ITS ---
EXAMINATION: US VENOUS ULTRASOUND WITH DOPPLER LOWER EXTREMITY, BILATERAL CLINICAL INFORMATION: Dyspnea. Elevated d-dimer. Swelling. COMPARISON: None available. TECHNIQUE: Ultrasound of the deep veins is performed from the hip to the calf with compression sonography and color and pulse Doppler assessment. Spectral analysis with color-flow imaging is performed. FINDINGS: RIGHT: There is normal venous compression and respiratory variation and augmented flow. The visualized common femoral vein, superficial femoral vein, profunda femoral vein, popliteal vein, and the trifurcation region shows no evidence of deep venous thrombosis. There is no significant popliteal fossa cyst. LEFT: There is normal venous compression and respiratory variation and augmented flow. The visualized common femoral vein, superficial femoral vein, profunda femoral vein, popliteal vein, and the trifurcation region shows no evidence of deep venous thrombosis. There is no significant popliteal fossa cyst. If the patient's symptoms persist, followup ultrasound in 5 days 7 days might be of value to exclude proximal propagation from a non-visualized calf vein. US/US venous duplex LE BI IMPRESSION: No DVT demonstrated in the bilateral lower extremities.
--- NOTE | ~2023-05-27 | XR_ITS ---
EXAMINATION: XR CHEST CLINICAL INFORMATION: Hypoxia, cough COMPARISON: 05/29/2023 TECHNIQUE: Frontal view of the chest was obtained. FINDINGS: The lungs are hypoinflated. Extensive bilateral airspace opacities are redemonstrated, which may be mildly worsened in the right lung from prior. No evidence of pneumothorax or significant pleural effusion. The cardiomediastinal silhouette is stable. No acute osseous findings are seen. XR/XR chest 1V IMPRESSION: Extensive bilateral airspace opacities, which may be mildly worsened in the right lung from prior.
--- NOTE | ~2023-05-27 | XR_ITS ---
EXAMINATION: X-RAY CHEST AND ABDOMEN CLINICAL INDICATION: Pneumonia, abdominal distention. COMPARISON: Chest radiograph 06/03/2023 and abdominal radiograph 06/03/2023. TECHNIQUE: AP views of the chest and abdomen. FINDINGS: Chest: The endotracheal tube terminates at 4 cm above the daya. An enteric tube courses into the abdomen and terminates at the level of the stomach. Stable enlargement of the cardiomediastinal silhouette. Increased diffuse bilateral airspace opacities more noticeable in the left mid to lower lung. Slightly increased layering left pleural effusion. No pneumothorax. No acute osseous findings. Abdomen: Recio catheter. Enteric tube terminates in the stomach. Nonobstructive bowel gas pattern and. No significant stool burden. No acute osseous findings. XR/XR KUB IMPRESSION: CHEST: 1. Endotracheal tube terminates at 4 cm above the daya. 2. Increased diffuse bilateral airspace opacities and layering left pleural effusion. ABDOMEN: 1. Nonobstructive bowel gas pattern. 2. No significant stool burden.
--- NOTE | ~2023-05-27 | XR_ITS ---
EXAMINATION: XR ABDOMEN KUB CLINICAL INDICATION: Bowel dilatation COMPARISON: Previous CT of the abdomen and pelvis 05/27/2023 and ultrasound from earlier the same day TECHNIQUE: AP view of the abdomen. FINDINGS: Nasogastric tube tip projects over mid stomach. Nonobstructive bowel gas pattern. Mild stool burden. No free air. Recio catheter. Degenerative changes of the spine and hip joints. XR/XR KUB IMPRESSION: Nasogastric tube projects over mid stomach. Nonobstructive bowel gas pattern. Mild stool burden.
--- NOTE | ~2023-05-27 | US_ITS ---
EXAMINATION: US ABDOMEN LIMITED CLINICAL INFORMATION: Transaminitis and sepsis. COMPARISON: Previous CT of the abdomen and pelvis May 2023 TECHNIQUE: Real-time imaging of the right upper quadrant abdominal viscera. FINDINGS: PANCREAS: Not well visualized due to bowel gas. LIVER: The left lobe of the liver appears enlarged are prominent.. The liver contour is normal. Parenchymal echogenicity is normal. No focal hepatic lesion. There is no intrahepatic biliary duct dilatation seen. GALLBLADDER: Post cholecystectomy. COMMON BILE DUCT: Normal in caliber measuring 0.6 cm in diameter. RIGHT KIDNEY: Normal. No hydronephrosis. No renal calculi or focal parenchymal lesions. The kidney measures 13 cm in maximum dimension. FREE FLUID: Small amount of ascites adjacent to the liver. US/US abdomen limited IMPRESSION: Small amount of ascites adjacent to the liver new from previous CT 05/27/2023. Left lobe of the liver appears prominent or enlarged. Limited visualization of the pancreas.
--- NOTE | ~2023-05-27 | FL_ITS ---
EXAMINATION: XR FLUOROSCOPY WITH IMAGES CLINICAL INFORMATION: Pacemaker insertion. COMPARISON: Chest radiograph 06/11/2023. TECHNIQUE: Fluoroscopy Supervised By: Dr. Storm Samuel Fluoroscopy Time: 6.11 minutes Cumulative Dose: 85.522 mGy-cm DAP: 37.201 Gy-cm2 Images: 1. FINDINGS: Single image shows a single lead from a pacemaker overlying the region of the right ventricular apex. FL/FL guidance in OR IMPRESSION: Fluoroscopy and spot films provided during pacemaker insertion.
--- NOTE | ~2023-05-27 | XR_ITS ---
EXAMINATION: XR chest 1V CLINICAL INFORMATION: Reason for Exam s/p ett placement COMPARISON: Prior x-ray same day earlier TECHNIQUE: Single portable frontal view. Tubes and lines: Endotracheal tube tip is at the daya heading toward the right main bronchus. These need to be pulled back by approximately 4-5 cm. Lungs and pleura: Redemonstration of diffuse bilateral dense consolidation opacification probably diffuse infiltrates. Lung apices are relatively spared unchanged from prior exam. Heart and mediastinum: The mediastinum is within normal limits.. Bones/soft tissue: Skeletal structures included are normal for patient's age. XR/XR chest 1V IMPRESSION: 1. Endotracheal tube tip is at the daya heading toward the right main bronchus. need to be pulled back by approximately 4-5 cm. 2. Redemonstration of diffuse bilateral dense consolidation opacification probably diffuse infiltrates. (Referring physician staff is being called, by physician staff assistance, to be alerted of the above critical findings and recommendations.) A J 05/30/2023 11:36 AM
--- NOTE | ~2023-05-27 | XR_ITS ---
EXAMINATION: XR CHEST CLINICAL INFORMATION: Worsening oxygen requirement COMPARISON: Previous chest x-ray most recent 05/31/2023 TECHNIQUE: Frontal view of the chest was obtained. FINDINGS: Exam limited due to overlying pad. Endotracheal tube tip 4.2 cm above the daya. Nasogastric tube projects over proximal stomach, tip not seen. The cardiac and mediastinal contours are stable. There is diffuse bilateral airspace disease not appreciably changed from yesterday's exam. There may be small pleural effusions. There is no pneumothorax. XR/XR chest 1V IMPRESSION: Satisfactory position of endotracheal tube. Nasogastric tube projects over proximal stomach, tip not seen. No change in diffuse bilateral airspace disease.
--- NOTE | 2023-05-27 13:30 | PC.NURSE ---
md giles notified pt 100.7 oral, 118 hr, diastolic 50s (MAP 63) on arrival, normal respir.
--- NOTE | 2023-05-27 13:35 | ECG_ITS ---
Test Reason : TACHY Blood Pressure : / mmHG Vent. Rate : 117 BPM Atrial Rate : 117 BPM P-R Int : 156 ms QRS Dur : 090 ms QT Int : 320 ms P-R-T Axes : 028 033 021 degrees QTc Int : 446 ms Sinus tachycardia Possible Anterior infarct (cited on or before 27-MAR-2023) Abnormal ECG When compared with ECG of 27-MAR-2023 10:54, No significant change was found Referred By: Valencia Knox Electronically Signed By:ERASTO GUTHRIE
--- NOTE | 2023-05-27 13:53 | ED.NAVMDI ---
HPI - Nausea/Vomiting/Diarrhea General Chief complaint: General Medical Stated complaint: DIARRHEA,FEVER,TACHY 120'S PER EMS Time Seen by Provider: 05/27/23 13:35 Source: patient and old records reviewed Mode of arrival: EMS Limitations: other (poor historian) History of Present Illness HPI Narrative: 62 yo female with PMH Of bipolar, delusions, schizoaffective disorder, PTSD, HLD, DM, HTN, hypothyroidism here with c/o having diarrhea and some nausea for 3 days. She is currently being treated for mental health at [facility] since 05/10. She denies recent antibiotic use, abdominal pain. Her initial O2 sat was 87% but it was done over red nail mauritian we rechecked on finger that does not have. When I asked her why she was here she states it's all over Facebook how do you not know? elicited complaint: nausea and diarrhea Onset (ago): day(s) (3) Description of diarrhea: watery Associated nausea: Yes Associated abdominal pain: No Location of pain: none Severity: moderate Exacerbating factors: eating Relieving factors: none Context: other (currently at [facility]) Associated symptoms: fever/chills Related Data Previous Rx's ?Medication ?Instructions ?Recorded dulaglutide 3 mg/0.5 mL 3 mg (0.5 mL) subcut QWEEK #2 mL 04/10/23 subcutaneous pen injector (Trulicity) Trulicity 3 mg subcut Q7D ##0 05/11/23 aluminum-magnesium hydroxide 200 30 ml PO Q6H PRN Heartburn/Nausea 05/11/23 mg-200 mg/5 mL oral suspension #0 mL (MAG-AL) amlodipine 2.5 mg tablet 2.5 mg PO DAILY #0 tabs 05/11/23 aspirin 81 mg tablet,delayed 81 mg PO DAILY #0 tabs 05/11/23 release atorvastatin 40 mg tablet 40 mg PO BEDTIME #0 tabs 05/11/23 benztropine 1 mg tablet 1 mg PO DAILY #0 tabs 05/11/23 carbamazepine 100 mg 300 mg (3 x 100 mg) PO DAILY #0 05/11/23 tablet,extended release,12 hr tabs (Tegretol XR) carbamazepine 200 mg 400 mg (2 x 200 mg) PO BEDTIME #0 05/11/23 tablet,extended release,12 hr tabs cholecalciferol (vitamin D3) 10 10 mcg PO DAILY #0 tabs 05/11/23 mcg (400 unit) tablet (Vitamin D3) cyanocobalamin (vitamin B-12) 100 100 mcg PO DAILY #0 tabs 05/11/23 mcg tablet (Vitamin B-12) furosemide 20 mg tablet 20 mg PO DAILY #0 tabs 05/11/23 lorazepam 1 mg tablet 1 mg PO BEDTIME #0 tabs 05/11/23 lorazepam 1 mg tablet 1 mg PO Q4H PRN becca #0 tabs 05/11/23 magnesium hydroxide 400 mg/5 mL 30 ml PO DAILY PRN Constipation #0 05/11/23 oral suspension (Milk of Magnesia) mL magnesium oxide 400 mg (241.3 mg 400 mg PO DAILY #0 tabs 05/11/23 magnesium) tablet melatonin 3 mg tablet 9 mg (3 x 3 mg) PO BEDTIME #0 tabs 05/11/23 metoprolol succinate 25 mg 25 mg PO DAILY #0 tabs 05/11/23 tablet,extended release 24 hr ondansetron 4 mg disintegrating 4 mg translingual Q6H PRN Nausea 05/11/23 tablet #0 tabs polyethylene glycol 3350 17 gram 17 g PO DAILY PRN Constipation #0 05/11/23 oral powder packet ea quetiapine 400 mg tablet 400 mg PO BEDTIME #0 tabs 05/11/23 quetiapine 50 mg tablet 50 mg PO BID PRN becca, agitation 05/11/23 #0 tabs thyroid (pork) 30 mg tablet (MID LEVEL PROJECT MANAGER 15 mg (1/2 x 30 mg) PO DAILY@0630 05/11/23 Thyroid) #0 tabs zolpidem 5 mg tablet 5 mg PO BEDTIME #0 tabs 05/11/23 Allergies Allergy/AdvReac Type Severity Reaction Status Date / Time amoxicillin Allergy Unknown Unknown Uncoded 05/27/23 14:06 Pt states no food allergy Allergy Unknown Unknown Uncoded 05/27/23 14:06 Review of Systems Review of Systems: Constitutional : No Weight loss, pos Fever, No Chills ENT/Mouth : No sore throat, No Rhinorrhea Eyes: No Swelling, No Redness Cardiovascular : No Chest Pain, No SOB, NoEdema Respiratory : No Cough, No Sputum, No Wheezing Gastrointestinal : Positive Nausea, no Vomiting, positive Diarrhea, no abdominal Pain, No Hematochezia, No Melena Genitourinary : No Dysuria, No Urinary Frequency, No Hematuria, No Urgency Musculoskeletal : No joint pain, No Myalgias, No Joint Swelling Skin : No Skin Lesions, No rash Neuro : No Weakness, No Numbness, No Dizziness, No Headache Psych : No Anxiety/Panic, No Depression All other systems reviewed and are negative. Gastrointestinal: Gastrointestinal: Reports nausea PMFSH Past Medical History Attestation statement: The following information was validated with the patient. Source: old records reviewed Medical History Hypertension Hyperlipidemia Type II diabetes mellitus PTSD (post-traumatic stress disorder) Surgical History History of cholecystectomy Social History Social History Household Members: None Housing: Condominium Do you presently have visiting nurse or other home services: No Patient Tobacco Use Status: Never used Tobacco Tobacco use type: Cigarette e-Cigarette/Vaping Use: Never Used Substance Use Type: Caffiene Advance Directives: No Advance Directives Information Provided: Yes service: No Sexual orientation: Straight/Heterosexual Physical Exam Vital Signs: Vital Signs: Last Vital Signs Temp 99.8 F 05/27/23 15:35 Pulse 118 H 05/27/23 13:37 Resp 18 05/27/23 13:37 BP 93/38 L 05/27/23 15:36 Pulse Ox 98 05/27/23 13:37 O2 Del Method Room Air 05/27/23 13:37 BMI result Body Mass Index 35.5 Appearance: Alert. Oriented X3. No acute distress. Flat affect Eyes: Pupils equal, round and reactive to light. ENT: Pharynx normal. Neck: Normal inspection. Neck supple. CVS: Normal heart rate and rhythm. Pulses normal. Respiratory: No respiratory distress. Breath sounds normal. Abdomen: Soft and nontender. Skin: Skin warm and dry. Normal skin color. Normal skin turgor. Extremities: trace pitting ankle lower extremity edema. No calf ttp Neuro: Oriented X 3. No motor deficit. No sensory deficit. Course Course Course Narrative: signed out to Dr. Loco pending CT scans and workup Reevaluation(s) Reevaluation #1: patient is obese her IBW is 62kg so IVF at 30cc/kg is = 1860 2L of IVF are ordered given drop in blood pressure per RN though asked to recheck BP Medications Administered Generic Name Dose Route Start Last Admin Trade Name Freq PRN Reason Stop Dose Admin Sodium Chloride 1,000 mls @ 999 mls/hr 05/27/23 15:45 05/27/23 15:48 Ns IV 05/27/23 16:45 999 mls/hr .Q1H1M BERNARDA Administration Discontinued Medications Generic Name Dose Route Start Last Admin Trade Name Freq PRN Reason Stop Dose Admin Acetaminophen 650 mg 05/27/23 13:35 05/27/23 14:08 Acetaminophen 325 Mg Tablet PO 05/27/23 13:36 650 mg ONCE ONE Administration Sodium Chloride 1,000 mls @ 999 mls/hr 05/27/23 13:45 05/27/23 14:04 Ns IV 05/27/23 14:45 999 mls/hr .Q1H1M BERNARDA Administration Ceftriaxone Sodium 1 gm/ 50 mls @ 100 mls/hr 05/27/23 13:35 05/27/23 14:33 Sodium Chloride IV 05/27/23 14:04 Infused ONCE ONE Infusion Medical Decision Making Medical Decision Making MDM Narrative: 62 yo female with PMH Of bipolar, delusions, schizoaffective disorder, PTSD, HLD, DM, HTN, hypothyroidism here with c/o diarrhea, chills, fevers x 3 days denies recent abx use she is currently at [facility] at this time will need basic labs, cultures, CXR, CT scan for colitis, diverticulitis, IVF and IV ceftriaxone ordered. Differential Diagnosis Differential Diagnoses: The differential diagnosis associated with the presentation includes cdiff, colitis, viral syndrome, UTI Admission/Observation Consideration of admission/observation: Escalation of care including admission/observation considered Lab Data [facility] Lab Attestation statement: I reviewed the patient's lab results. 05/27/23 13:55 05/27/23 13:55 Labs: Lab Results 05/27/23 Range/Units 13:55 WBC 11.0 H (4.8-10.8) X10*3/uL RBC 4.19 L (4.20-5.50) X10*6/uL Hgb 13.2 (12.0-16.0) g/dl Hct 39.1 (37.0-47.0) % MCV 93.3 (80.0-98.0) fL MCH 31.5 (27.0-33.0) pg MCHC 33.8 (31.0-35.0) g/dl RDW 13.4 (11.0-16.0) % Plt Count 157 L (160-400) X10*3/uL MPV 10.4 (9.4-12.3) fL Immature Gran % (Auto) 1.4 H (0.0-0.4) % Neut % (Auto) 86.1 H (45-73) % Lymph % (Auto) 7.7 L (20-40) % Nobles % (Auto) 4.0 (2-11) % Eos % (Auto) 0.5 (0-4) % Baso % (Auto) 0.3 (0-2) % Lymph # (Auto) 0.9 L (1.2-4.9) X10*3/uL Nobles # (Auto) 0.4 (0.1-1.2) X10*3/uL Eos # (Auto) 0.1 (0.0-0.4) X10*3/uL Baso # (Auto) 0.0 (0.0-0.2) X10*3/uL Abs Immat Gran (auto) 0.15 H (0.00-0.03) X10*3/uL Absolute Neuts (auto) 9.5 H (2.0-8.3) x10*3/uL Absolute Nucleated RBC 0.020 H (0.0-0.012) X10*3/uL Nucleated RBC % (auto) 0.2 (0.0-0.2) /100WBC PT 14.1 H (11.1-13.3) SEC INR 1.2 H (0.9-1.1) Lactic Acid 2.3 H* (0.5-2.0) mmol/L Troponin I High Sens 11.4 (<3.5-17.0) ng/L B-Natriuretic Peptide 19 (<100) pg/mL TSH 0.83 (0.32-4.0) uIU/mL Influenza Type A (PCR) NEGATIVE (Negative) Influenza Type B (PCR) NEGATIVE (Negative) RSV RNA Qual (PCR) NEGATIVE (Negative) SARS-CoV-2 RNA (RT-PCR) NEGATIVE (Negative) Independent Interpretation I performed an independent interpretation of an: EKG Interpretation: Rate: 117 Rhythm: sinus tachycardia [place]: left Normal P waves. Normal ENEIDA. Normal QRS complex. ST T wave : no OLVIN, nonspecific ST T wave changes qTC: 446 prior studies: no acute ischemia The study has been interpreted contemporaneously by me. . Independent Historian Clinical information obtained from an independent historian. History obtained from or confirmed by: EMS External Record Review External record reviewed: Inpatient record Critical Care Time Critical Care Time Critical Care Time: Yes Total Critical Care Time: 60 Attestation: 2L of IVF ordered, review of records, sepsis protocol in place I attest to this time spent taking care of the patient Discharge Plan Discharge Clinical Impression: Acidosis, lactic, Acute diarrhea Fever Qualifiers: Fever type: due to other condition Qualified Code(s): R50.81 - Fever presenting with conditions classified elsewhere Patient Disposition: Still a Patient Prescriptions: No Action Trulicity 3 mg/0.5 mL pen injector 3 mg subcut QWEEK Qty: 2 0RF Rx Instructions: Please send to [facility] at [facility] atorvastatin 40 mg Tablet 40 mg PO BEDTIME Qty: 0 0RF polyethylene glycol 3350 17 gram Powder In Packet 17 g PO DAILY PRN (Reason: Constipation) Qty: 0 0RF carbamazepine [Tegretol XR] 100 mg Tablet Extended Release 12 Hr 300 mg PO DAILY Qty: 0 0RF amlodipine 2.5 mg Tablet 2.5 mg PO DAILY Qty: 0 0RF Protocol: Hold for SBP< HOLD for SBP < : 90 aspirin 81 mg Tablet,Delayed Release (Dr/Ec) 81 mg PO DAILY Qty: 0 0RF magnesium oxide 400 mg (241.3 mg magnesium) Tablet 400 mg PO DAILY Qty: 0 0RF magnesium hydroxide [Milk of Magnesia] 400 mg/5 mL Suspension 30 ml PO DAILY PRN (Reason: Constipation) Qty: 0 0RF carbamazepine 200 mg Tablet Extended Release 12 Hr 400 mg PO BEDTIME Qty: 0 0RF benztropine 1 mg Tablet 1 mg PO DAILY Qty: 0 0RF zolpidem 5 mg Tablet 5 mg PO BEDTIME Qty: 0 0RF furosemide 20 mg Tablet 20 mg PO DAILY Qty: 0 0RF Protocol: Hold for SBP< HOLD for SBP < : 90 metoprolol succinate 25 mg Tablet Extended Release 24 Hr 25 mg PO DAILY Qty: 0 0RF Protocol: Hold for SBP/HR < HOLD for SBP < : 90 HOLD for HR < : 60 lorazepam 1 mg Tablet 1 mg PO Q4H PRN (Reason: becca) Qty: 0 0RF lorazepam 1 mg Tablet 1 mg PO BEDTIME Qty: 0 0RF ondansetron 4 mg Tablet,Disintegrating 4 mg translingual Q6H PRN (Reason: Nausea) Qty: 0 0RF MAG-AL 200-200 mg/5 mL Suspension 30 ml PO Q6H PRN (Reason: Heartburn/Nausea) Qty: 0 0RF quetiapine 50 mg Tablet 50 mg PO BID PRN (Reason: becca, agitation) Qty: 0 0RF quetiapine 400 mg Tablet 400 mg PO BEDTIME Qty: 0 0RF thyroid (pork) [MID LEVEL PROJECT MANAGER Thyroid] 30 mg Tablet 15 mg PO DAILY@0630 Qty: 0 0RF cyanocobalamin (vitamin B-12) [Vitamin B-12] 100 mcg Tablet 100 mcg PO DAILY Qty: 0 0RF melatonin 3 mg Tablet 9 mg PO BEDTIME Qty: 0 0RF cholecalciferol (vitamin D3) [Vitamin D3] 10 mcg (400 unit) Tablet 10 mcg PO DAILY Qty: 0 0RF Trulicity 3 mg subcut Q7D Qty: 0 0RF Print Language: Kiswahili
[2023-05-27 14:02] LABS: MANUAL DIFF FLAG NO
[2023-05-27] MEDS: cefTRIAXone sodium 1 GM in 0.9 % Sodium Chloride 50 ML IV (14:03)
[2023-05-27] MEDS: 0.9 % Sodium Chloride 1,000 ML 999 ML IV ×2 (14:04→15:48)
[2023-05-27 14:05] LABS: Basophils Percent Auto 0.3 % (0-2); Eosinophils Absolute Auto 0.1 X10*3/uL (0.0-0.4); Eosinophils Percent Auto 0.5 % (0-4); Hematocrit 39.1 % (37.0-47.0); Hemoglobin 13.2 g/dl (12.0-16.0); Imm Gran Abs Auto 0.15 X10*3/uL (0.00-0.03); Imm Gran Pct Auto 1.4 % (0.0-0.4); Lymphocytes Absolute Auto 0.9 X10*3/uL (1.2-4.9); Lymphocytes Percent Auto 7.7 % (20-40); Mean Corpuscular HGB Conc 33.8 g/dl (31.0-35.0); Mean Corpuscular Hemoglobin 31.5 pg (27.0-33.0); Mean Corpuscular Volume 93.3 fL (80.0-98.0); Mean Platelet Volume 10.4 fL (9.4-12.3); Monocytes Absolute Auto 0.4 X10*3/uL (0.1-1.2); NRBC Pct Auto 0.2 /100WBC (0.0-0.2); Neutrophils Absolute Auto 9.5 x10*3/uL (2.0-8.3); Neutrophils Percent Auto 86.1 % (45-73); Platelet Count 157 X10*3/uL (160-400); Red Blood Count 4.19 X10*6/uL (4.20-5.50); Red Cell Distribution Width 13.4 % (11.0-16.0)
[2023-05-27] MEDS: Acetaminophen 325 MG TABLET 650 MG PO ×2 (14:08→19:50)
--- NOTE | 2023-05-27 14:08 | PC.NURSE ---
confirmed w md giles not doing weight-based fluids, only 1 L fluids.
[2023-05-27 14:19] LABS: INTERNATIONAL NORM RATIO 1.2 (0.9-1.1); Prothrombin Time 14.1 SEC (11.1-13.3)
[2023-05-27 14:29] LABS: B Type Natriuretic Peptide 19 pg/mL (<100); Troponin-I High Sensitivity 11.4 ng/L (<3.5-17.0)
[2023-05-27 14:38] LABS: Lactic Acid 2.3 mmol/L (0.5-2.0)
[2023-05-27 14:43] LABS: Influenza A PCR NEGATIVE (Negative); Influenza B PCR NEGATIVE (Negative); Resp Syncy Virus RNA Qual PCR NEGATIVE (Negative); SARS COV2 PCR INHOUSE NEGATIVE (Negative); TSH reflex Free T4 0.83 uIU/mL (0.32-4.0)
--- NOTE | 2023-05-27 14:45 | PC.NURSE ---
gi panel sent, not enough for cdiff as well.
[2023-05-27 16:00] LABS: Reflex Lactate? Lactic Acid Added
[2023-05-27 16:18] LABS: Adenovirus F 40/41 Not Detected (Not Detect.); Astrovirus Not Detected (Not Detect.); Campylobacter Not Detected (Not Detect.); Cryptosporidium Not Detected (Not Detect.); Cyclospora cayetanensis Not Detected (Not Detect.); E. coli EAEC Not Detected (Not Detect.); E. coli EPEC Not Detected (Not Detect.); E. coli ETEC Not Detected (Not Detect.); E. coli STEC Not Detected (Not Detect.); Entamoeba histolytica Not Detected (Not Detect.); Giardia lamblia Not Detected (Not Detect.); Norovirus GI/GII Not Detected (Not Detect.); Plesiomonas shigelloides Not Detected (Not Detect.); Rotavirus A Not Detected (Not Detect.); Salmonella Not Detected (Not Detect.); Sapovirus Not Detected (Not Detect.); Shigella sp./EIEC Not Detected (Not Detect.); Vibrio Not Detected (Not Detect.); Vibrio Cholerae Not Detected (Not Detect.); Yersinia enterocolitica Not Detected (Not Detect.)
[2023-05-27] MEDS: Albumin Human 25 % 100 ML 133.33 ML IV ×2 (16:21→17:50)
[2023-05-27 16:26] LABS: ~Lactic Acid-LAB USE ONLY 1.2 mmol/L (0.5-2.0)
[2023-05-27 16:28] LABS: Alanine Aminotransferase 28 U/L (0-31); Albumin Level 3.1 g/dL (3.5-5.0); Alkaline Phosphatase 62 U/L (39-117); Anion Gap 11 (12-20); Aspartate Amino Transferase 46 U/L (5-31); Bilirubin Direct 0.2 mg/dL (0.0-0.5); Bilirubin Total 0.4 mg/dL (0.0-1.0); Blood Urea Nitrogen 21 mg/dL (9-16); Calcium 7.5 mg/dL (8.4-10.2); Carbon Dioxide 26 mmol/L (22-29); Chloride 101 mmol/L (96-108); Creatinine Clr Calc Pharmacy 85.4; Estimated Glomerular Filt Rate > 60; Glucose Random 122 mg/dL (60-115); Lipase 45 U/L (8-78); Magnesium 1.5 mg/dL (1.6-2.6); Potassium 2.8 mmol/L (3.3-5.1); Sodium 135 mmol/L (135-145); Total Protein 5.6 g/dL (6.5-8.0)
[2023-05-27 16:44] LABS: Procalcitonin 0.32 ng/mL
[2023-05-27] MEDS: iohexoL 350 MG/ML 100 ML INFUS..BTL IV (16:45)
[2023-05-27] MEDS: Potassium Chloride Packet 20 MEQ PACKET 40 MEQ PO (17:33)
[2023-05-27] MEDS: Potassium Chloride/H20 10 MEQ/100 ML PIGGYBACK 100 MEQ IV ×4 (17:34→22:08)
--- NOTE | 2023-05-27 18:57 | P.HPHOSP_ITS ---
History of Present Illness Date of Service: 05/27/23 Attending physician on admission: Terra Pacheco Chief Complaint: N/D abd pain Pt is a 62-year-old female with a PMH significant for?HTN, HLD, non insulin- dependent type 2 diabetes, hypothyroidism, RANJANA noncompliant with CPAP, PTSD, and bipolar disorder who presents to the ED for evaluation of nausea, diarrhea, and poor p.o. intake times 2-3 days. Patient is currently receiving psychiatric care at [facility] for acute manic episode in the context of medication noncompliance. Patient is alert and oriented x3, though exhibits flight of ideas during conversation and is sometimes difficult to follow. HPI is thus supplemented by chart and provider review. Patient apparently has been having severe, watery diarrhea x2-3 days with diffuse abdominal pain and nausea but no vomiting. Reports having difficulty walking secondary to weakness due to reduced p.o. intake. Patient claims her symptoms are caused by recently taking liquid Depakote. Denies chest pain/pressure, palpitations. No shortness of breath or difficulty breathing. In the ED pt was febrile up to 102.6, tachycardic up to 121, tachypneic up to 21, with soft BP as low as 87/46, satting as low as 88% on RA. Labs were significant for mild leukocytosis of 11.0, potassium 2.8, lactic acid 2.3 with repeat 1.2, corrected calcium 8.2, magnesium 1.5, AST 46, and albumin 3.1. GI panel negative. C diff pending. Tested negative for flu, RSV, COVID. CXR showed bibasilar atelectasis versus mild inflammatory changes. CT?of abdomen and pelvis found no cause patient's diarrhea and fever, but showed mild splenomegaly, nonobstructing 4 mm renal calculus, colonic diverticulosis, and 6 mm left lower lobe pulmonary nodule. EKG demonstrated sinus tachycardia with no evidence of significant ST elevations or depressions. Pt was treated with ceftriaxone, IVF, acetaminophen, albumin, potassium chloride IV and p.o., and magnesium sulfate. Pt will be admitted to the hospital for treatment and further evaluation of very some electrolyte abnormalities in the setting of intractable diarrhea likely secondary to viral gastroenteritis. Review of Systems 2 Review of Systems: Diarrhea Nausea, no vomiting Fever and chills Diffuse abdominal pain Denies SOB or difficulty breathing No chest pain/pressure or palpitations\ [facility] Medical History Hypertension Hyperlipidemia Type II diabetes mellitus PTSD (post-traumatic stress disorder) Surgical History History of cholecystectomy Social History Household Members: Other Housing: Other Housing Other:: [facility] facility Do you presently have visiting nurse or other home services: No Patient Tobacco Use Status: Never used Tobacco Tobacco use type: Cigarette e-Cigarette/Vaping Use: Never Used Substance Use Type: Caffiene service: No Sexual orientation: Straight/Heterosexual Meds Allergies Allergy/AdvReac Type Severity Reaction Status Date / Time amoxicillin Allergy Unknown Unknown Uncoded 05/27/23 14:06 Pt states no food allergy Allergy Unknown Unknown Uncoded 05/27/23 14:06 Active Medications: Current Medications Potassium Chloride (Potassium Chloride/H20) 10 meq in 100 mls @ 100 mls/hr IV Q1H BERNARDA Stop: 05/27/23 20:44 Last Infusion: 05/27/23 18:45 Dose: Infused Magnesium Sulfate (Magnesium Sulfate/H2o) 2 gm in 50 mls @ 25 mls/hr IV ONCE ONE Stop: 05/27/23 19:53 Home Medications ?Medication ?Instructions ?Recorded ?Confirmed ?Last Taken ?Type acetaminophen 325 mg tablet 650 mg PO Q6H PRN Pain 05/27/23 05/27/23 Unknown History atorvastatin 40 mg tablet 40 mg PO BEDTIME 05/27/23 05/27/23 Unknown History clozapine 100 mg tablet 100 mg PO BID 05/27/23 05/27/23 Unknown History clozapine 50 mg tablet 50 mg PO BEDTIME 05/27/23 05/27/23 Unknown History divalproex 250 mg tablet,delayed 250 mg PO BID 05/27/23 05/27/23 Unknown History release (Depakote) divalproex 500 mg tablet,delayed 500 mg PO BID 05/27/23 05/27/23 Unknown History release (Depakote) lorazepam 1 mg tablet 1 mg PO Q4H PRN becca 05/27/23 05/27/23 Unknown History magnesium hydroxide 400 mg/5 mL 30 ml PO BEDTIME PRN Constipation 05/27/23 05/27/23 Unknown History oral suspension (Milk of Magnesia) melatonin 3 mg tablet 9 mg PO BEDTIME PRN Insomnia 05/27/23 05/27/23 Unknown History thyroid (pork) 120 mg tablet (EDGE GRINDER MACHINE 120 mg PO DAILY@0630 05/27/23 05/27/23 Unknown History Thyroid) Physical Exam 2 Vital Signs and Narrative: Vital Signs: Last Vital Signs Temp 99.3 F 05/27/23 17:30 Pulse 120 H 05/27/23 17:30 Resp 21 H 05/27/23 17:30 BP 130/66 05/27/23 17:30 Pulse Ox 96 05/27/23 17:30 O2 Del Method Nasal Cannula 05/27/23 17:30 O2 Flow Rate 2 05/27/23 17:30 BMI result Body Mass Index 35.5 Constitutional: Alert, in no acute distress. Mental Status: Oriented to person, place and time. Eyes: Pupils are equal, round, and reactive to light. Ear, Nose, and Throat: Oropharynx clear, mucous membranes moist. Ears and nose without deformities. Trachea midline. Respiratory: Clear to auscultation bilaterally. No wheezing, rales, or rhonchi. Cardiovascular: S1, S2, tachy. No murmurs, rubs, or gallops. Gastrointestinal: Abdomen soft, obese, with mild diffuse tenderness. Normal bowel sounds. Neurologic: Cranial nerves II-XII are grossly intact bilaterally. No focal neurological deficits. Moves all extremities spontaneously. Skin: Warm, dry. Extremities: No edema. Psychiatric: Calm, cooperative but displays flight of ideas. Results Labs 05/29/23 06:33 05/29/23 06:33 Labs: Laboratory Results - last 24 hr 05/27/23 05/27/23 05/27/23 13:55 14:38 15:46 MCV 93.3 MCH 31.5 MCHC 33.8 RDW 13.4 Plt Count 157 L MPV 10.4 Immature Gran % (Auto) 1.4 H Neut % (Auto) 86.1 H Lymph % (Auto) 7.7 L Finney % (Auto) 4.0 Eos % (Auto) 0.5 Baso % (Auto) 0.3 Lymph # (Auto) 0.9 L Finney # (Auto) 0.4 Eos # (Auto) 0.1 Baso # (Auto) 0.0 Abs Immat Gran (auto) 0.15 H Absolute Neuts (auto) 9.5 H Absolute Nucleated RBC 0.020 H Nucleated RBC % (auto) 0.2 PT 14.1 H INR 1.2 H Anion Gap 11 L Estim Creat Clear Calc 85.4 Estimated GFR > 60 Random Glucose 122 H Lactic Acid 2.3 H* Lactic Acid F/U @ 2Hr Calcium 7.5 L D Magnesium 1.5 L Total Bilirubin 0.4 Direct Bilirubin 0.2 AST 46 H ALT 28 Alkaline Phosphatase 62 Troponin I High Sens 11.4 B-Natriuretic Peptide 19 Total Protein 5.6 L Albumin 3.1 L Lipase 45 Procalcitonin 0.32 TSH 0.83 Stl C. cayetanensis PCR Not Detected Stool Rotavirus A PCR Not Detected Stl Adenov F 40/41 PCR Not Detected Stool Astrovirus (PCR) Not Detected Stool Campylobacter PCR Not Detected Stool Cryptosporidium PCR Not Detected Stl Sh Tox Pr E STEC PCR Not Detected Stool E coli O157 PCR Not applicable Stl Enterotoxigenic E PCR Not Detected Stool EPEC (PCR) Not Detected Stool EAEC (PCR) Not Detected Stl E. histolytica PCR Not Detected Stool Giardia Lamblia PCR Not Detected Stl P. shigelloides PCR Not Detected Stool Salmonella PCR Not Detected Stool Sapovirus (PCR) Not Detected Stl Shigella/EIEC PCR Not Detected St Y.enterocolitica PCR Not Detected Stool Vibrio (PCR) Not Detected Stl Vibrio cholerae PCR Not Detected Stl Norovirus GI/GII PCR Not Detected Influenza Type A (PCR) NEGATIVE Influenza Type B (PCR) NEGATIVE RSV RNA Qual (PCR) NEGATIVE SARS-CoV-2 RNA (RT-PCR) NEGATIVE 05/27/23 16:13 MCV MCH MCHC RDW Plt Count MPV Immature Gran % (Auto) Neut % (Auto) Lymph % (Auto) Finney % (Auto) Eos % (Auto) Baso % (Auto) Lymph # (Auto) Finney # (Auto) Eos # (Auto) Baso # (Auto) Abs Immat Gran (auto) Absolute Neuts (auto) Absolute Nucleated RBC Nucleated RBC % (auto) PT INR Anion Gap Estim Creat Clear Calc Estimated GFR Random Glucose Lactic Acid Lactic Acid F/U @ 2Hr 1.2 Calcium Magnesium Total Bilirubin Direct Bilirubin AST ALT Alkaline Phosphatase Troponin I High Sens B-Natriuretic Peptide Total Protein Albumin Lipase Procalcitonin TSH Stl C. cayetanensis PCR Stool Rotavirus A PCR Stl Adenov F 40/41 PCR Stool Astrovirus (PCR) Stool Campylobacter PCR Stool Cryptosporidium PCR Stl Sh Tox Pr E STEC PCR Stool E coli O157 PCR Stl Enterotoxigenic E PCR Stool EPEC (PCR) Stool EAEC (PCR) Stl E. histolytica PCR Stool Giardia Lamblia PCR Stl P. shigelloides PCR Stool Salmonella PCR Stool Sapovirus (PCR) Stl Shigella/EIEC PCR St Y.enterocolitica PCR Stool Vibrio (PCR) Stl Vibrio cholerae PCR Stl Norovirus GI/GII PCR Influenza Type A (PCR) Influenza Type B (PCR) RSV RNA Qual (PCR) SARS-CoV-2 RNA (RT-PCR) Imaging Radiologist's Impressions: Impressions Chest X-Ray 05/27/23 15:22 IMPRESSION: Reticular markings at the lung bases may represent atelectasis or mild inflammatory changes. Abdomen/Pelvis CT 05/27/23 16:54 IMPRESSION: 1. A cause for the patient's diarrhea and fever has not been found. 2. Mild splenomegaly. 3. Nonobstructing 4 mm left renal calculus. 4. Colonic diverticulosis without diverticulitis. 5. 6 mm left lower lobe pulmonary nodule. According to the UPDATED 2017 Fleischner Society recommendations, the advised follow-up imaging for a single 6-8 mm solid nodule is follow-up CT at 6 to 12 months. In high-risk patients, subsequent CT follow-up at 18 to 24 months is recommended. In low-risk patients, subsequent CT follow-up at 18 to 24 months is optional. Assessment and Plan (1) Hypomagnesemia: Status: Acute (2) Acute hypokalemia: Status: Acute Plan Pt is a 62-year-old female with a PMH significant for?HTN, HLD, non insulin- dependent type 2 diabetes, hypothyroidism, RANJANA noncompliant with CPAP, PTSD, and bipolar disorder who presents to the ED for evaluation of nausea, diarrhea, and poor p.o. intake times 2-3 days. Pt will be admitted to the hospital for treatment and further evaluation of very some electrolyte abnormalities in the setting of intractable diarrhea likely secondary to viral gastroenteritis. Nausea, diarrhea, poor p.o. intake Likely secondary to viral gastroenteritis CT of abdomen and pelvis negative for acute abdomen GI panel negative Will check C diff Will cover empirically with ceftriaxone, started 05/27/2023 IVF Hypokalemia Patient's potassium 2.8 at time of presentation Likely secondary to reduced p.o. intake and GI losses Was supplemented with 40 mEq IV and 40 mEq p.o. potassium in ED Follow BMP Hypomagnesemia Magnesium 1.5 at time of presentation Likely secondary to reduced p.o. intake and GI losses Patient received magnesium sulfate 2 g IV in ED Follow Mag Hypoalbuminemia Albumin 3.1 at time of presentation Likely secondary to reduced p.o. intake and GI losses Received albumin 25% x2 bags Viral sepsis Pt meets SIRS criteria: Fever, tachycardia, tachypnea; lactic acid WNL Likely secondary to viral gastroenteritis No indication for bacterial infection Patient being covered by broad-spectrum antibiotics Check C diff Pulmonary nodule CT of abd/pelvis found 6 mm left lower lobe pulmonary nodule HTN Continue amlodipine, metoprolol HLD Continue statin [id number] diabetes type 2 SSI, diabetic diet Hypothyroidism Continue home meds Mood disorder Hold clozapine 100 mg b.i.d. Continue all other home medications Psych consult for med reconciliation Full Code Attending:?Dr. Back DVT Prophylaxis: Lovenox Pt will require a hospitalization of at least two nights for treatment of?multiple electrolyte abnormalities in the setting of intractable diarrhea likely secondary to viral gastroenteritis. Patient will require hospitalization for close monitoring of electrolytes and cardiac function, and electrolyte supplementation as necessary. Quality Stroke Does the patient have a stroke diagnosis?: No VTE Prior VTE?: No VTE Risk Level:: Medical - moderate - high VTE Device Contraindication: Treatment Not Indicated VTE Drug Contraindication: N/A - Med Ordered
[2023-05-27] MEDS: Magnesium Sulfate/H2O 2 GM/50 ML PIGGYBACK IV (19:51)
--- NOTE | 2023-05-27 19:58 | PC.NURSE ---
Addendum entered by Olya Duval 05/27/23 20:08: [place] text sent to Brittaney Oconnell. No new orders at this time. Original Note: Assumed care for pt at 1900. Admitting provider at bedside. Pt is alert and oriented to self and place. Pt is calm and cooperative. Initially denying to take ordered medications as pt reported wanted to wait to see a doctor in the morning, but then changed her mind and allowed to have medications administered. Current oral temp is 102.6F and is tachy on the monitor with HR 120. Tylenol given PO. Respirations are even regular and unlabored. RR 20. Pt is on 2L NC with O2 sat 99%. Denies pain at this time. Pt repositioned to comfort. 1:1 sitter at bedside. Pending admit orders. Monitoring is ongoing.
[2023-05-27 20:45] LABS: Glucose, Whole Blood 122 mg/dL (60-115)
--- NOTE | 2023-05-27 20:54 | PHA.MEDREC ---
Pharmacy Consult ? Medication Reconciliation Pharmacy has completed the medication reconciliation, list provided from [place] visit summary and spoke to patient. Although very disorganized, was able to verbalize most medications, utilized discharge packet from 05/11/23 as well.
--- NOTE | 2023-05-27 21:56 | MHC.EDTECH ---
belongings are in locker #8 in the POD
[2023-05-27] MEDS: 0.9 % Sodium Chloride 1,000 ML 100 ML IVCONT (22:08)
[2023-05-27] MEDS: QUEtiapine Fumarate 400 MG TABLET PO (22:09)
[2023-05-27] MEDS: Enoxaparin Sodium 40 MG/0.4 ML SYRINGE SUBCUT (22:09)
[2023-05-27] MEDS: carBAMazepine ER 200 MG TAB.ER.12H 400 MG PO (22:09)
[2023-05-27] MEDS: Divalproex Sodium 250 MG TABLET.DR PO (22:10)
[2023-05-27] MEDS: LORazepam 1 MG TABLET PO (22:10)
[2023-05-27] MEDS: Atorvastatin Calcium 40 MG TABLET PO (22:10)
[2023-05-27] MEDS: Divalproex Sodium 500 MG TABLET.DR PO (22:10)
[2023-05-27] MEDS: cloZAPine 25 MG TABLET PO (22:40)
[2023-05-28] VITALS (14 sets, daily range): BP systolic 95–150; BP diastolic 42–83; PULSE 98–133; RESP 16–22; TEMP 36.6–39.6; O2SAT 3–97; BMI 37.7
--- NOTE | 2023-05-28 | ECG_ITS ---
Test Reason : tachycardia Blood Pressure : / mmHG Vent. Rate : 133 BPM Atrial Rate : 133 BPM P-R Int : 148 ms QRS Dur : 076 ms QT Int : 282 ms P-R-T Axes : 039 095 000 degrees QTc Int : 419 ms Artifact in tracing Likely Sinus tachycardia Rightward axis Nonspecific ST abnormality Abnormal ECG When compared with ECG of 27-MAY-2023 14:47, due to poor quality, cannot compare Referred By: Lotus Bailey Electronically Signed By:ERASTO GUTHRIE
[2023-05-28] MEDS: 0.9 % Sodium Chloride Flush 3 ML SYRINGE IVFLUSH (00:02)
--- NOTE | 2023-05-28 02:05 | PC.NURSE ---
Pt resting quietly, no signs of distress. Pt medicated per apr. Sitter remains. Plan of care ongoing.
--- NOTE | 2023-05-28 03:27 | PC.NURSE ---
Hospitalist aware pts temp 103.2 Pt medicated per mar. Plan of care ongoing.
[2023-05-28 03:49] LABS: Appearance Urine Turbid; Color Urine Dark Yellow; Glucose Urine UA Negative (Negative); Leukocyte Esterase Urine Moderate (2+) (Negative); Nitrite Urine Negative (Negative); PH 6.5 (5.0-9.0); Specific Gravity - Urine >= 1.030 (1.005-1.025); UMIC TRIGGER UACC YES; Urine Blood Moderate (2+) (Negative); Urine Ketones 15 mg/dL (Negative); Urine Protein 30 (1+) mg/dL (Neg-Trace)
[2023-05-28 03:59] LABS: Bacteria Urine 4+ (None Seen); RBC Urine >20 /HPF (0-2); UACC Culture Trigger YES
[2023-05-28] MEDS: Ibuprofen 600 MG TABLET PO (04:18)
--- NOTE | 2023-05-28 04:20 | PC.NURSE ---
Pt temp remains at 103.2, b/p 112/49, and pulse 120 hospitalist aware. Pt medicated per apr. Plan of care ongoing.
--- NOTE | 2023-05-28 05:12 | PC.NURSE ---
Pt temp down 102.7 Hospitalist aware. Plan of care ongoing.
[2023-05-28 06:42] LABS: Alanine Aminotransferase 59 U/L (0-31); Albumin Level 3.2 g/dL (3.5-5.0); Alkaline Phosphatase 52 U/L (39-117); Anion Gap 11 (12-20); Aspartate Amino Transferase 103 U/L (5-31); Bilirubin Total 0.4 mg/dL (0.0-1.0); Blood Urea Nitrogen 16 mg/dL (9-16); Calcium 7.2 mg/dL (8.4-10.2); Carbon Dioxide 22 mmol/L (22-29); Chloride 108 mmol/L (96-108); Creatinine Clr Calc Pharmacy 104.6; Estimated Glomerular Filt Rate > 60; Glucose Random 120 mg/dL (60-115); Magnesium 2.1 mg/dL (1.6-2.6); Potassium 3.4 mmol/L (3.3-5.1); Sodium 138 mmol/L (135-145); Total Protein 5.4 g/dL (6.5-8.0)
--- NOTE | 2023-05-28 06:52 | PC.NURSE ---
0630 med not in Pyxis. Pharm called. Plan of care ongoing.
[2023-05-28 07:17] LABS: Glucose, Whole Blood 116 mg/dL (60-115)
--- NOTE | 2023-05-28 07:50 | HE.PHANOTE ---
RE: LAST CLOZAPINE DOSE Spoke to Josh Becerra at [facility] ([place] floor [phone]), he confirmed that pt's last dose of clozapine was 100 mg on 05/27/23 @0900. Patient's daily dose is 100 mg qam and 150 mg qpm.
[2023-05-28] MEDS: 0.9 % Sodium Chloride 1,000 ML 100 ML IVCONT (08:28)
[2023-05-28] MEDS: Benztropine Mesylate 1 MG TABLET PO (10:49)
[2023-05-28] MEDS: Furosemide 20 MG TABLET PO (10:49)
--- NOTE | 2023-05-28 10:49 | MHC.CM.PN ---
IMM 05/28/23, Pt came from [facility] where she was for psych stay. She lives by herself, she is independent, does not have home health services. she said she would like to be DC'd to our psych unit here, and not go back to [place] because that is where she got sick. She said she does not feel stable psychiatrically. Her PCP is Khoa Stoner, she does not currently have a psych provider in the community. CM will follow and assist with DC plan.
[2023-05-28] MEDS: Divalproex Sodium 250 MG TABLET.DR PO ×2 (10:50→20:57)
[2023-05-28] MEDS: Aspirin Enteric Coated 81 MG TABLET.DR PO (10:50)
[2023-05-28] MEDS: Divalproex Sodium 500 MG TABLET.DR PO ×2 (10:50→20:58)
[2023-05-28] MEDS: Magnesium Oxide 400 MG TABLET PO (10:51)
--- NOTE | 2023-05-28 11:06 | PC.NURSE ---
PT MORE AWAKE NOW, EATING HER BREAKFAST. TOOK MEDS CHARTED.
[2023-05-28] MEDS: Thyroid,Pork 30 MG TABLET 120 MG PO (11:11)
[2023-05-28] MEDS: Cholecalciferol (Vitamin D3) 10 MCG TABLET PO (11:39)
[2023-05-28] MEDS: carBAMazepine ER 100 MG TAB.ER.12H 300 MG PO (11:39)
[2023-05-28] MEDS: cloZAPine 100 MG TABLET PO (11:40)
--- NOTE | 2023-05-28 11:57 | HO.PM.IMPN ---
Subjective Subjective Date of Service: 05/28/23 Interval History: seen and examined this morning follow up for nausea and diarrhea sleepy but able to report one episode of diarrhea this morning no abdominal pain Review of Systems Review of Systems: Yes all other systems are reviewed and are negative Constitutional Constitutional: Denies chills and Denies fever(s) Cardiovascular Cardiovascular: Denies chest pain and Denies dyspnea Respiratory Respiratory: Denies dyspnea Gastrointestinal Gastrointestinal: Denies abdominal pain Physical Exam Vital Signs: Vital Signs: Last Vital Signs Temp 98 F 05/28/23 10:31 Pulse 102 H 05/28/23 10:31 Resp 16 05/28/23 10:31 BP 108/57 L 05/28/23 10:49 Pulse Ox 95 05/28/23 10:31 O2 Del Method Nasal Cannula 05/28/23 10:31 O2 Flow Rate 3 05/28/23 10:31 BMI result Body Mass Index 35.5 Const: Other: sleepy but arousable to verbal stimuli General: no acute distress Nutritional Appearance: overweight Orientation/consciousness: patient oriented x3 Resp: Effort & Inspection: normal respiratory effort, able to speak in complete sentences, no respiratory distress and no use of accessory muscles Cardio: Rate: regular rate GI: Other: +BS no guarding or rebound Inspection: No distended Palpation (GI): Soft to palpation and nontender Neuro: Other: grossly nonfocal General: patient oriented x3 and moves all extremities Extrem: General: Yes no pedal edema Objective Data Active Medications Acetaminophen (Acetaminophen 325 Mg Tablet) 975 mg PO Q6H PRN PRN Reason: Fever >101 Al Hydroxide/Mg Hydroxide (Magnesium Hydrox/Alum Hydrox 30 Ml Oral.Susp) 30 ml PO Q6H PRN PRN Reason: Heartburn/Nausea Amlodipine Besylate (Amlodipine Besylate 2.5 Mg Tablet) 2.5 mg PO DAILY [facility]; Protocol Last Admin: 05/28/23 11:14 Dose: Not Given Documented By: JAYY Non-Admin Reason: Physician Held Med Aspirin (Aspirin Enteric Coated 81 Mg Tablet.) 81 mg PO DAILY [facility] Last Admin: 05/28/23 10:50 Dose: 81 mg Documented By: JAYY Atorvastatin Calcium (Atorvastatin Calcium 40 Mg Tablet) 40 mg PO BEDTIME [facility] Last Admin: 05/27/23 22:10 Dose: 40 mg Documented By: RANDELL Benzonatate (Benzonatate 100 Mg Capsule) 100 mg PO TID PRN PRN Reason: Cough Benztropine Mesylate (Benztropine Mesylate 1 Mg Tablet) 1 mg PO DAILY [facility] Last Admin: 05/28/23 10:49 Dose: 1 mg Documented By: JAYY Carbamazepine (Carbamazepine Er 100 Mg Tab.Er.12h) 300 mg PO DAILY [facility] Last Admin: 05/28/23 11:39 Dose: 300 mg Documented By: JAYY Carbamazepine (Carbamazepine Er 200 Mg Tab.Er.12h) 400 mg PO BEDTIME [facility] Last Admin: 05/27/23 22:09 Dose: 400 mg Documented By: RANDELL Clozapine (Clozapine 25 Mg Tablet) 25 mg PO BEDTIME [facility] Last Admin: 05/27/23 22:40 Dose: 25 mg Documented By: RANDELL Clozapine (Clozapine 100 Mg Tablet) 100 mg PO BID [facility] Last Admin: 05/28/23 11:40 Dose: 100 mg Documented By: JAYY Cyanocobalamin (Cyanocobalamin (Vitamin B-12) 100 Mcg Tablet) 100 mcg PO DAILY [facility] Divalproex Sodium (Divalproex Sodium 250 Mg Tablet.) 250 mg PO BID [facility] Last Admin: 05/28/23 10:50 Dose: 250 mg Documented By: JAYY Divalproex Sodium (Divalproex Sodium 500 Mg Tablet.) 500 mg PO BID [facility] Last Admin: 05/28/23 10:50 Dose: 500 mg Documented By: JAYY Enoxaparin Sodium (Enoxaparin Sodium 40 Mg/0.4 Ml Syringe) 40 mg SUBCUT Q24H [facility] Last Admin: 05/27/23 22:09 Dose: 40 mg Documented By: RANDELL Furosemide (Furosemide 20 Mg Tablet) 20 mg PO DAILY [facility]; Protocol Last Admin: 05/28/23 10:49 Dose: 20 mg Documented By: JAYY Glucose (Glucose Gel 15 Gm Gel..Gram.) 15 gm PO Q15M PRN; Protocol PRN Reason: per Hypoglycemia Standing Ord. Sodium Chloride (Ns) 1,000 mls @ 100 mls/hr IVCONT .Q10H [facility] Last Admin: 05/28/23 08:28 Dose: 100 mls/hr Documented By: JAYY Ceftriaxone Sodium 1 gm/ (Sodium Chloride) 50 mls @ 100 mls/hr IV Q24H [facility] Dextrose (D10) 250 mls @ 750 mls/hr IV Q15M PRN; Protocol PRN Reason: per Hypoglycemia Standing Ord. Vancomycin HCl 1,500 mg/ (Sodium Chloride) 500 mls @ 333.333 mls/hr IV ONCE ONE Stop: 05/28/23 12:57 Insulin Human Lispro (Insulin Lispro 100 Unit/Ml 3 Ml Vial) 0 unit SUBCUT QIDACHS [facility]; Protocol Last Admin: 05/28/23 08:29 Dose: Not Given Documented By: JAYY Non-Admin Reason: No Insulin Coverage Lorazepam (Lorazepam 1 Mg Tablet) 1 mg PO Q4H PRN PRN Reason: becca Lorazepam (Lorazepam 1 Mg Tablet) 1 mg PO BEDTIME [facility] Last Admin: 05/27/23 22:10 Dose: 1 mg Documented By: RANDELL Magnesium Oxide (Magnesium Oxide 400 Mg Tablet) 400 mg PO DAILY [facility] Last Admin: 05/28/23 10:51 Dose: 400 mg Documented By: JAYY Melatonin (Melatonin 3 Mg Tablet) 6 mg PO BEDTIME PRN PRN Reason: Insomnia Metoprolol Succinate (Metoprolol Succinate Er 25 Mg Tab.Er.24h) 25 mg PO DAILY [facility]; Protocol Last Admin: 05/28/23 11:14 Dose: Not Given Documented By: JAYY Non-Admin Reason: Medication Discontinued Ondansetron HCl (Ondansetron Hcl 4 Mg/2 Ml Vial) 4 mg IVPUSH Q8H PRN PRN Reason: Nausea and Vomiting Ondansetron HCl (Ondansetron Odt 4 Mg Tab.Rapdis) 4 mg TRANSLINGU Q6H PRN PRN Reason: Nausea Quetiapine Fumarate (Quetiapine Fumarate 50 Mg Tablet) 50 mg PO BID PRN PRN Reason: becca, agitation Quetiapine Fumarate (Quetiapine Fumarate 400 Mg Tablet) 400 mg PO BEDTIME [facility] Last Admin: 05/27/23 22:09 Dose: 400 mg Documented By: RANDELL Sodium Chloride (0.9 % Sodium Chloride Flush 3 Ml Syringe) 3 ml IVFLUSH QSHIFT [facility] Last Admin: 05/28/23 08:29 Dose: Not Given Documented By: JAYY Non-Admin Reason: IV Running Thyroid (Thyroid,Pork 30 Mg Tablet) 120 mg PO DAILY@0630 [facility] Last Admin: 05/28/23 11:11 Dose: 120 mg Documented By: DITOLC Vitamin D (Cholecalciferol (Vitamin D3) 10 Mcg Tablet) 10 mcg PO DAILY [facility] Last Admin: 05/28/23 11:39 Dose: 10 mcg Documented By: JAYY Labs 05/27/23 13:55 05/28/23 06:09 Labs: Laboratory Results - last 24 hr 05/27/23 05/27/23 05/27/23 13:55 14:38 15:46 MCV 93.3 MCH 31.5 MCHC 33.8 RDW 13.4 Plt Count 157 L MPV 10.4 Immature Gran % (Auto) 1.4 H Neut % (Auto) 86.1 H Lymph % (Auto) 7.7 L Bryan % (Auto) 4.0 Eos % (Auto) 0.5 Baso % (Auto) 0.3 Lymph # (Auto) 0.9 L Bryan # (Auto) 0.4 Eos # (Auto) 0.1 Baso # (Auto) 0.0 Abs Immat Gran (auto) 0.15 H Absolute Neuts (auto) 9.5 H Absolute Nucleated RBC 0.020 H Nucleated RBC % (auto) 0.2 PT 14.1 H INR 1.2 H Anion Gap 11 L Estim Creat Clear Calc 85.4 Estimated GFR > 60 POC Glucose Random Glucose 122 H Lactic Acid 2.3 H* Lactic Acid F/U @ 2Hr Calcium 7.5 L D Magnesium 1.5 L Total Bilirubin 0.4 Direct Bilirubin 0.2 AST 46 H ALT 28 Alkaline Phosphatase 62 Troponin I High Sens 11.4 B-Natriuretic Peptide 19 Total Protein 5.6 L Albumin 3.1 L Lipase 45 Procalcitonin 0.32 TSH 0.83 Urine Color Urine Appearance Urine pH Ur Specific [place] Urine Protein Urine Glucose (UA) Urine Ketones Urine Blood Urine Nitrite Ur Leukocyte Esterase Urine RBC Urine WBC Ur Squamous Epith Cells Urine Bacteria Hyaline Casts Stl C. cayetanensis PCR Not Detected Stool Rotavirus A PCR Not Detected Stl Adenov F 40/41 PCR Not Detected Stool Astrovirus (PCR) Not Detected Stool Campylobacter PCR Not Detected Stool Cryptosporidium PCR Not Detected Stl Sh Tox Pr E STEC PCR Not Detected Stool E coli O157 PCR Not applicable Stl Enterotoxigenic E PCR Not Detected Stool EPEC (PCR) Not Detected Stool EAEC (PCR) Not Detected Stl E. histolytica PCR Not Detected Stool Giardia Lamblia PCR Not Detected Stl P. shigelloides PCR Not Detected Stool Salmonella PCR Not Detected Stool Sapovirus (PCR) Not Detected Stl Shigella/EIEC PCR Not Detected St Y.enterocolitica PCR Not Detected Stool Vibrio (PCR) Not Detected Stl Vibrio cholerae PCR Not Detected Stl Norovirus GI/GII PCR Not Detected Influenza Type A (PCR) NEGATIVE Influenza Type B (PCR) NEGATIVE RSV RNA Qual (PCR) NEGATIVE SARS-CoV-2 RNA (RT-PCR) NEGATIVE 05/27/23 05/27/23 05/28/23 16:13 20:41 03:43 MCV MCH MCHC RDW Plt Count MPV Immature Gran % (Auto) Neut % (Auto) Lymph % (Auto) Bryan % (Auto) Eos % (Auto) Baso % (Auto) Lymph # (Auto) Bryan # (Auto) Eos # (Auto) Baso # (Auto) Abs Immat Gran (auto) Absolute Neuts (auto) Absolute Nucleated RBC Nucleated RBC % (auto) PT INR Anion Gap Estim Creat Clear Calc Estimated GFR POC Glucose 122 H Random Glucose Lactic Acid Lactic Acid F/U @ 2Hr 1.2 Calcium Magnesium Total Bilirubin Direct Bilirubin AST ALT Alkaline Phosphatase Troponin I High Sens B-Natriuretic Peptide Total Protein Albumin Lipase Procalcitonin TSH Urine Color Dark Yellow Urine Appearance Turbid Urine pH 6.5 Ur Specific [place] >= 1.030 H Urine Protein 30 (1+) H Urine Glucose (UA) Negative Urine Ketones 15 Urine Blood Moderate (2+) H Urine Nitrite Negative Ur Leukocyte Esterase Moderate (2+) H Urine RBC >20 H Urine WBC 6-10 H Ur Squamous Epith Cells 3-5 Urine Bacteria 4+ Hyaline Casts 6-10 Stl C. cayetanensis PCR Stool Rotavirus A PCR Stl Adenov F 40/41 PCR Stool Astrovirus (PCR) Stool Campylobacter PCR Stool Cryptosporidium PCR Stl Sh Tox Pr E STEC PCR Stool E coli O157 PCR Stl Enterotoxigenic E PCR Stool EPEC (PCR) Stool EAEC (PCR) Stl E. histolytica PCR Stool Giardia Lamblia PCR Stl P. shigelloides PCR Stool Salmonella PCR Stool Sapovirus (PCR) Stl Shigella/EIEC PCR St Y.enterocolitica PCR Stool Vibrio (PCR) Stl Vibrio cholerae PCR Stl Norovirus GI/GII PCR Influenza Type A (PCR) Influenza Type B (PCR) RSV RNA Qual (PCR) SARS-CoV-2 RNA (RT-PCR) 05/28/23 05/28/23 06:09 07:13 MCV MCH MCHC RDW Plt Count MPV Immature Gran % (Auto) Neut % (Auto) Lymph % (Auto) Bryan % (Auto) Eos % (Auto) Baso % (Auto) Lymph # (Auto) Bryan # (Auto) Eos # (Auto) Baso # (Auto) Abs Immat Gran (auto) Absolute Neuts (auto) Absolute Nucleated RBC Nucleated RBC % (auto) PT INR Anion Gap 11 L Estim Creat Clear Calc 104.6 Estimated GFR > 60 POC Glucose 116 H Random Glucose 120 H Lactic Acid Lactic Acid F/U @ 2Hr Calcium 7.2 L Magnesium 2.1 Total Bilirubin 0.4 Direct Bilirubin AST 103 H ALT 59 H Alkaline Phosphatase 52 Troponin I High Sens B-Natriuretic Peptide Total Protein 5.4 L Albumin 3.2 L Lipase Procalcitonin TSH Urine Color Urine Appearance Urine pH Ur Specific [place] Urine Protein Urine Glucose (UA) Urine Ketones Urine Blood Urine Nitrite Ur Leukocyte Esterase Urine RBC Urine WBC Ur Squamous Epith Cells Urine Bacteria Hyaline Casts Stl C. cayetanensis PCR Stool Rotavirus A PCR Stl Adenov F 40/41 PCR Stool Astrovirus (PCR) Stool Campylobacter PCR Stool Cryptosporidium PCR Stl Sh Tox Pr E STEC PCR Stool E coli O157 PCR Stl Enterotoxigenic E PCR Stool EPEC (PCR) Stool EAEC (PCR) Stl E. histolytica PCR Stool Giardia Lamblia PCR Stl P. shigelloides PCR Stool Salmonella PCR Stool Sapovirus (PCR) Stl Shigella/EIEC PCR St Y.enterocolitica PCR Stool Vibrio (PCR) Stl Vibrio cholerae PCR Stl Norovirus GI/GII PCR Influenza Type A (PCR) Influenza Type B (PCR) RSV RNA Qual (PCR) SARS-CoV-2 RNA (RT-PCR) Microbiology Microbiology Results: Microbiology 05/27/23 13:55 Blood Culture - Preliminary Blood - Venous Prelim: GPC Gram Stain only Assessment and Plan (1) Fever: Status: Acute Plan This is a 62-year-old female with a PMH significant for?HTN, HLD, non insulin-dependent type 2 diabetes, hypothyroidism, RANJANA noncompliant with CPAP, PTSD, and bipolar disorder who presents to the ED for evaluation of nausea, diarrhea, and poor p.o. intake times 2-3 days found to have fever, some electrolyte abnormalities in the setting of intractable diarrhea SIRS Patient met criteria with fever, tachycardia, tachypnea; lactic acid WNL initially thought secondary to viral gastroenteritis possibly due to UTI (also with 4mm nonobstructing stone on CT) 1/2 Blood cultures growing GPC - unclear if this represents contamination continue IV ceftriaxone will give one time empiric dose of vanco due to + blood culture follow Urine culture and final blood culture results Nausea, diarrhea, poor p.o. intake possible viral gastroenteritis CT of abdomen and pelvis negative GI panel negative C diff pending supportive care transaminitis LFTs trending up slightly follow LFTs Hypokalemia Likely secondary to reduced p.o. intake and GI losses improved with replacement Hypomagnesemia Likely secondary to reduced p.o. intake and GI losses improved with replacement hypocalcemia 7.9 when corrected for low albumin check vit d start replacement for calcium HTN blood pressure soft hold amlodipine, metoprolol, lasix due to soft bp Pulmonary nodule CT of abd/pelvis found 6 mm left lower lobe pulmonary nodule outpatient follow up HLD Continue statin [id number] diabetes type 2 SSI, diabetic diet follow POCs Hypothyroidism TSH wnl Continue home meds Mood disorder continue clozapine 100 mg Continue all other home medications Psych consult for med reconciliation Full Code Attending:?Dr. Back DVT Prophylaxis: Lovenox Pt will require a hospitalization of at least two nights for treatment of?multiple electrolyte abnormalities in the setting of intractable diarrhea . Patient will require hospitalization for close monitoring of electrolytes and cardiac function, and electrolyte supplementation as necessary. Quality Stroke Does the patient have a stroke diagnosis?: No VTE Prior VTE?: No VTE Risk Level:: Medical - moderate - high VTE Device Contraindication: Treatment Not Indicated VTE Drug Contraindication: N/A - Med Ordered
[2023-05-28 12:06] LABS: Glucose, Whole Blood 152 mg/dL (60-115)
[2023-05-28] MEDS: Insulin Lispro 100 UNIT/ML 3 ML VIAL SUBCUT ×2 (12:12→16:16)
[2023-05-28] MEDS: vancomycin HCL 1,500 MG in 0.9 % Sodium Chloride 500 ML 333.33 MG IV (12:12)
--- NOTE | 2023-05-28 13:21 | PC.NURSE ---
Patient's HR persistently 120's - 130's, morning bp held d/t bp, bp now improved, informed inpatient provider of HR & BP, EKG obtained, previously held med ordered and given per APR.
[2023-05-28] MEDS: Metoprolol Succinate ER 25 MG TAB.ER.24H PO (13:44)
[2023-05-28] MEDS: cefTRIAXone sodium 1 GM in 0.9 % Sodium Chloride 50 ML IV (14:13)
[2023-05-28] MEDS: Acetaminophen 325 MG TABLET 975 MG PO ×2 (14:46→20:55)
[2023-05-28 15:10] LABS: Calcium 7.1 mg/dL (8.4-10.2)
[2023-05-28 15:31] LABS: Vitamin D 25-OH Total 24.3 ng/mL (>30)
[2023-05-28 16:16] LABS: Glucose, Whole Blood 213 mg/dL (60-115)
[2023-05-28] MEDS: Calcium + Vitamin D 250 MG TABLET 500 MG PO (16:16)
[2023-05-28] MEDS: 0.9 % Sodium Chloride 1,000 ML 125 ML IVCONT (16:38)
--- NOTE | 2023-05-28 16:46 | PC.NURSE ---
Patient's fever improved after tylenol PO, resting quietly on stretcher, alert w/ episodes of confusion and nonsensical speech.
[2023-05-28 19:34] LABS: Glucose, Whole Blood 128 mg/dL (60-115)
[2023-05-28] MEDS: QUEtiapine Fumarate 400 MG TABLET PO (20:55)
[2023-05-28] MEDS: Atorvastatin Calcium 40 MG TABLET PO (20:55)
[2023-05-28] MEDS: LORazepam 1 MG TABLET PO (20:58)
[2023-05-28] MEDS: carBAMazepine ER 200 MG TAB.ER.12H 400 MG PO (20:58)
[2023-05-29] VITALS (29 sets, daily range): BP systolic 102–138; BP diastolic 57–68; PULSE 105–120; RESP 18–34; TEMP 36.4–39.3; O2SAT 77–93
[2023-05-29] MEDS: 0.9 % Sodium Chloride 1,000 ML 125 ML IVCONT (00:06)
[2023-05-29] MEDS: Furosemide 100 MG/10 ML VIAL 60 MG IVPUSH (04:30)
[2023-05-29 04:31] LABS: Glucose, Whole Blood 123 mg/dL (60-115)
[2023-05-29 04:38] LABS: Baso%MD 0.3 %; Eos%MD 1.4 %; Hemoglobin 10.8 g/dl (12.0-16.0); IG%MD 1.6 %; Lymph%MD 18.8 %; Mean Corpuscular HGB Conc 33.8 g/dl (31.0-35.0); Mean Corpuscular Hemoglobin 31.2 pg (27.0-33.0); Mean Corpuscular Volume 92.5 fL (80.0-98.0); Mean Platelet Volume 10.4 fL (9.4-12.3); Mono%MD 5.3 %; Neut%MD 72.6 %; Red Blood Count 3.46 X10*6/uL (4.20-5.50); Red Cell Distribution Width 13.6 % (11.0-16.0); White Blood Count 6.4 X10*3/uL (4.8-10.8)
[2023-05-29 04:47] LABS: ABG Base Excess -0.7 mmol/L; ABG HCO3 23 mmol/L (22-26); ABG pCO2 36 mmHg (32-45); ABG pH 7.41 (7.35-7.45); ABG pO2 58 mmHg (83-108)
[2023-05-29 04:50] LABS: ABG Refer to POC result
[2023-05-29 04:53] LABS: Lactic Acid 0.9 mmol/L (0.5-2.0)
[2023-05-29 05:01] LABS: Band Neutrophils Percent 41 % (3-5); Lymphocytes Absolute Manual 0.7 X10*3/uL (1.2-4.9); Lymphocytes Percent Manual 11 % (20-40); Metamyelocytes Absolute 0.1 X10*3/uL; Metamyelocytes Percent 1 %; Monocytes Absolute Manual 0.1 X10*3/uL (0.1-1.2); Monocytes Percent Manual 2 % (2-11); Neutrophils Absolute Manual 5.5 X10*3/uL (2.0-8.3); Neutrophils Percent Manual 45 % (45-73)
[2023-05-29 05:02] LABS: Alanine Aminotransferase 101 U/L (0-31); Albumin Level 3.2 g/dL (3.5-5.0); Alkaline Phosphatase 58 U/L (39-117); Anion Gap 11 (12-20); Aspartate Amino Transferase 166 U/L (5-31); B Type Natriuretic Peptide 241 pg/mL (<100); Bilirubin Total 0.4 mg/dL (0.0-1.0); Blood Urea Nitrogen 12 mg/dL (9-16); Calcium 7.3 mg/dL (8.4-10.2); Carbon Dioxide 23 mmol/L (22-29); Chloride 107 mmol/L (96-108); Creatinine Clr Calc Pharmacy 106.3; Estimated Glomerular Filt Rate > 60; Glucose Random 125 mg/dL (60-115); Large Platelet PRESENT; Platelet Count 87 X10*3/uL (160-400); Platelet Estimate DECREASED (NORMAL); Platelet Morphology Comment NORMAL; Potassium 4.1 mmol/L (3.3-5.1); RBC Morphology NORMAL; Sodium 137 mmol/L (135-145); Total Protein 5.5 g/dL (6.5-8.0); Toxic Vacuolation PRESENT
[2023-05-29] MEDS: Magnesium Hydrox/Alum Hydrox 30 ML ORAL.SUSP PO (05:11)
[2023-05-29] MEDS: Acetaminophen 325 MG TABLET 975 MG PO (05:11)
--- NOTE | 2023-05-29 05:30 | PC.NURSE ---
[employer] TECHNICIAN called at 0415 due to increased O2 demand and desat. MD and team at bedside, pt alert and answering questions appropriately throughout event. IV fluids stopped, lung sounds crackles throughout. IV lasix 60 mg given with output noted shortly afterwards. Respiratory at bedside, pt placed on high flow oxygen, with improved saturations. medicated with tylenol for increased temp of 102.8 orally. Stat CXR, labs and ABG done as ordered.
--- NOTE | 2023-05-29 05:44 | P.EN_ITS ---
Event Note Date of Service: 05/29/23 Event Note: 4:17 AM - Rapid response was activated. Patient developed worsening shortness of breath and low oxygen O2 sats. O2 sats were dropping to 85% on 15L/min oxymask. On exam the patient was tachypnea and complaining of shortness on breath. She persists with fever spikes despite receiving multiple doses of Tylenol. Cardiopulmonary exam is remarkable for bilateral crackles. IV fluids were stopped immediately. Lasix 60 mg IV were given stat. CXR stat confirmed p ulmonary edema ? Question of pneumonia. ABGs stat showed no respiratory acidosis however significant hypoxemia. Other blood workup stat remarkable for elevated BNP, worsening thrombocytopenia and anemia; possible hemodilution. There is no lactic acidosis. Subsequently, she was started on high-flow therapy. Therapy with azithromycin to cover for pneumonia and will obtain respiratory viral panel (COVID-19, RSV and influenza are negative). Patient is already receiving treatment with ceftriaxone for presumed urinary tract infection. We will also obtain echocardiogram to assess underlying congestive heart failure. Time Spent With Patient Time: Total time managing care of this patient today ____ minutes.
--- NOTE | 2023-05-29 05:44 | PM.IMHP ---
History of Present Illness delete note [facility] Medical History Hypertension Hyperlipidemia Type II diabetes mellitus PTSD (post-traumatic stress disorder) Surgical History History of cholecystectomy Social History Household Members: Other Housing: Other Housing Other:: [facility] facility Do you presently have visiting nurse or other home services: No Patient Tobacco Use Status: Never used Tobacco Tobacco use type: Cigarette e-Cigarette/Vaping Use: Never Used Substance Use Type: Caffiene service: No Sexual orientation: Straight/Heterosexual Meds Allergies Allergy/AdvReac Type Severity Reaction Status Date / Time amoxicillin Allergy Unknown Unknown Uncoded 05/27/23 14:06 Pt states no food allergy Allergy Unknown Unknown Uncoded 05/27/23 14:06 Active Medications: Current Medications Acetaminophen (Acetaminophen 325 Mg Tablet) 975 mg PO Q6H PRN PRN Reason: Fever >101 Last Admin: 05/29/23 05:11 Dose: 975 mg Al Hydroxide/Mg Hydroxide (Magnesium Hydrox/Alum Hydrox 30 Ml Oral.Susp) 30 ml PO Q6H PRN PRN Reason: Heartburn/Nausea Last Admin: 05/29/23 05:11 Dose: 30 ml Amlodipine Besylate (Amlodipine Besylate 2.5 Mg Tablet) 2.5 mg PO DAILY [facility]; Protocol Last Admin: 05/28/23 11:14 Dose: Not Given Aspirin (Aspirin Enteric Coated 81 Mg Tablet.Dr) 81 mg PO DAILY [facility] Last Admin: 05/28/23 10:50 Dose: 81 mg Atorvastatin Calcium (Atorvastatin Calcium 40 Mg Tablet) 40 mg PO BEDTIME [facility] Last Admin: 05/28/23 20:55 Dose: 40 mg Benzonatate (Benzonatate 100 Mg Capsule) 100 mg PO TID PRN PRN Reason: Cough Benztropine Mesylate (Benztropine Mesylate 1 Mg Tablet) 1 mg PO DAILY [facility] Last Admin: 05/28/23 10:49 Dose: 1 mg Calcium Carbonate/Cholecalciferol (Calcium + Vitamin D 250 Mg Tablet) 500 mg PO BIDWM [facility] Last Admin: 05/28/23 16:16 Dose: 500 mg Carbamazepine (Carbamazepine Er 100 Mg Tab.Er.12h) 300 mg PO DAILY [facility] Last Admin: 05/28/23 11:39 Dose: 300 mg Carbamazepine (Carbamazepine Er 200 Mg Tab.Er.12h) 400 mg PO BEDTIME [facility] Last Admin: 05/28/23 20:58 Dose: 400 mg Clozapine (Clozapine 25 Mg Tablet) 25 mg PO BEDTIME [facility] Last Admin: 05/28/23 21:15 Dose: Not Given Clozapine (Clozapine 100 Mg Tablet) 100 mg PO BID [facility] Last Admin: 05/28/23 21:15 Dose: Not Given Cyanocobalamin (Cyanocobalamin (Vitamin B-12) 100 Mcg Tablet) 100 mcg PO DAILY [facility] Last Admin: 05/28/23 12:13 Dose: Not Given Divalproex Sodium (Divalproex Sodium 250 Mg Tablet.) 250 mg PO BID [facility] Last Admin: 05/28/23 20:57 Dose: 250 mg Divalproex Sodium (Divalproex Sodium 500 Mg Tablet.) 500 mg PO BID [facility] Last Admin: 05/28/23 20:58 Dose: 500 mg Enoxaparin Sodium (Enoxaparin Sodium 40 Mg/0.4 Ml Syringe) 40 mg SUBCUT Q24H [facility] Last Admin: 05/28/23 21:13 Dose: Not Given Furosemide (Furosemide 20 Mg Tablet) 20 mg PO DAILY [facility]; Protocol Last Admin: 05/28/23 10:49 Dose: 20 mg Glucose (Glucose Gel 15 Gm Gel..Gram.) 15 gm PO Q15M PRN; Protocol PRN Reason: per Hypoglycemia Standing Ord. Sodium Chloride (Ns) 1,000 mls @ 125 mls/hr IVCONT .Q8H [facility] Last Admin: 05/29/23 00:06 Dose: 125 mls/hr Ceftriaxone Sodium 1 gm/ (Sodium Chloride) 50 mls @ 100 mls/hr IV Q24H [facility] Last Infusion: 05/28/23 15:01 Dose: Infused Dextrose (D10) 250 mls @ 750 mls/hr IV Q15M PRN; Protocol PRN Reason: per Hypoglycemia Standing Ord. Insulin Human Lispro (Insulin Lispro 100 Unit/Ml 3 Ml Vial) 0 unit SUBCUT QIDACHS [facility]; Protocol Last Admin: 05/28/23 21:13 Dose: Not Given Lorazepam (Lorazepam 1 Mg Tablet) 1 mg PO Q4H PRN PRN Reason: becca Lorazepam (Lorazepam 1 Mg Tablet) 1 mg PO BEDTIME [facility] Last Admin: 05/28/23 20:58 Dose: 1 mg Magnesium Oxide (Magnesium Oxide 400 Mg Tablet) 400 mg PO DAILY [facility] Last Admin: 05/28/23 10:51 Dose: 400 mg Melatonin (Melatonin 3 Mg Tablet) 6 mg PO BEDTIME PRN PRN Reason: Insomnia Metoprolol Succinate (Metoprolol Succinate Er 25 Mg Tab.Er.24h) 25 mg PO DAILY [facility]; Protocol Last Admin: 05/28/23 13:44 Dose: 25 mg Ondansetron HCl (Ondansetron Hcl 4 Mg/2 Ml Vial) 4 mg IVPUSH Q8H PRN PRN Reason: Nausea and Vomiting Ondansetron HCl (Ondansetron Odt 4 Mg Tab.Rapdis) 4 mg TRANSLINGU Q6H PRN PRN Reason: Nausea Quetiapine Fumarate (Quetiapine Fumarate 50 Mg Tablet) 50 mg PO BID PRN PRN Reason: becca, agitation Quetiapine Fumarate (Quetiapine Fumarate 400 Mg Tablet) 400 mg PO BEDTIME [facility] Last Admin: 05/28/23 20:55 Dose: 400 mg Sodium Chloride (0.9 % Sodium Chloride Flush 3 Ml Syringe) 3 ml IVFLUSH QSHIFT [facility] Last Admin: 05/29/23 00:00 Dose: Not Given Thyroid (Thyroid,Pork 30 Mg Tablet) 120 mg PO DAILY@0630 [facility] Last Admin: 05/28/23 11:11 Dose: 120 mg Vitamin D (Cholecalciferol (Vitamin D3) 10 Mcg Tablet) 10 mcg PO DAILY [facility] Last Admin: 05/28/23 11:39 Dose: 10 mcg Home Medications ?Medication ?Instructions ?Recorded ?Confirmed ?Last Taken ?Type acetaminophen 325 mg tablet 650 mg PO Q6H PRN Pain 05/27/23 05/27/23 Unknown History atorvastatin 40 mg tablet 40 mg PO BEDTIME 05/27/23 05/27/23 Unknown History clozapine 100 mg tablet 100 mg PO BID 05/27/23 05/27/23 Unknown History clozapine 50 mg tablet 50 mg PO BEDTIME 05/27/23 05/27/23 Unknown History divalproex 250 mg tablet,delayed 250 mg PO BID 05/27/23 05/27/23 Unknown History release (Depakote) divalproex 500 mg tablet,delayed 500 mg PO BID 05/27/23 05/27/23 Unknown History release (Depakote) lorazepam 1 mg tablet 1 mg PO Q4H PRN becca 05/27/23 05/27/23 Unknown History magnesium hydroxide 400 mg/5 mL 30 ml PO BEDTIME PRN Constipation 05/27/23 05/27/23 Unknown History oral suspension (Milk of Magnesia) melatonin 3 mg tablet 9 mg PO BEDTIME PRN Insomnia 05/27/23 05/27/23 Unknown History thyroid (pork) 120 mg tablet ([employer]IA[employer] OFFICER 120 mg PO DAILY@0630 05/27/23 05/27/23 Unknown History Thyroid) Physical Exam Vital Signs and Narrative: Vital Signs: Last Vital Signs Temp 102.8 F H 05/29/23 05:00 Pulse 115 H 05/29/23 05:00 Resp 18 05/29/23 05:25 BP 130/64 05/29/23 05:00 Pulse Ox 90 L 05/29/23 05:00 O2 Del Method High Flow Nasal C annula 05/29/23 05:00 O2 Flow Rate 45 05/29/23 05:00 FiO2 75 05/29/23 05:00 BMI result Body Mass Index 37.7 Results Labs 05/29/23 04:31 05/29/23 04:31 Labs: Laboratory Results - last 24 hr 05/28/23 05/28/23 05/28/23 06:09 07:13 12:03 MCV MCH MCHC RDW Plt Count MPV Absolute Nucleated RBC Nucleated RBC % (auto) Neutrophils % (Manual) Band Neutrophils % Lymphocytes % (Manual) Monocytes % (Manual) Metamyelocytes % Abs Neuts (Manual) Lymphocytes # (Manual) Monocytes # (Manual) Metamyelocytes # Toxic Vacuolation Platelet Estimate Large Platelets Plt Morphology Comment RBC Morphology O2 Saturation ABG pH at Pt Temp ABG pCO2 at Pt Temp ABG pO2 at Pt Temp ABG HCO3 ABG Base Excess (Actual) Anion Gap 11 L Estim Creat Clear Calc 104.6 Estimated GFR > 60 POC Glucose 116 H 152 H Random Glucose 120 H Lactic Acid Calcium 7.2 L Magnesium 2.1 Total Bilirubin 0.4 AST 103 H ALT 59 H Alkaline Phosphatase 52 B-Natriuretic Peptide Total Protein 5.4 L Albumin 3.2 L 25-OH Vitamin D Total 05/28/23 05/28/23 05/28/23 14:49 16:11 19:26 MCV MCH MCHC RDW Plt Count MPV Absolute Nucleated RBC Nucleated RBC % (auto) Neutrophils % (Manual) Band Neutrophils % Lymphocytes % (Manual) Monocytes % (Manual) Metamyelocytes % Abs Neuts (Manual) Lymphocytes # (Manual) Monocytes # (Manual) Metamyelocytes # Toxic Vacuolation Platelet Estimate Large Platelets Plt Morphology Comment RBC Morphology O2 Saturation ABG pH at Pt Temp ABG pCO2 at Pt Temp ABG pO2 at Pt Temp ABG HCO3 ABG Base Excess (Actual) Anion Gap Estim Creat Clear Calc Estimated GFR POC Glucose 213 H 128 H Random Glucose Lactic Acid Calcium 7.1 L Magnesium Total Bilirubin AST ALT Alkaline Phosphatase B-Natriuretic Peptide Total Protein Albumin 25-OH Vitamin D Total 24.3 L 05/29/23 05/29/23 05/29/23 04:19 04:31 04:39 MCV 92.5 MCH 31.2 MCHC 33.8 RDW 13.6 Plt Count 87 L D MPV 10.4 Absolute Nucleated RBC 0.000 Nucleated RBC % (auto) 0.0 Neutrophils % (Manual) 45 Band Neutrophils % 41 H Lymphocytes % (Manual) 11 L Monocytes % (Manual) 2 Metamyelocytes % 1 Abs Neuts (Manual) 5.5 Lymphocytes # (Manual) 0.7 L Monocytes # (Manual) 0.1 Metamyelocytes # 0.1 Toxic Vacuolation PRESENT Platelet Estimate DECREASED Large Platelets PRESENT Plt Morphology Comment NORMAL RBC Morphology NORMAL O2 Saturation 90.0 ABG pH at Pt Temp 7.41 ABG pCO2 at Pt Temp 36 ABG pO2 at Pt Temp 58 L ABG HCO3 23 ABG Base Excess (Actual) -0.7 Anion Gap 11 L Estim Creat Clear Calc 106.3 Estimated GFR > 60 POC Glucose 123 H Random Glucose 125 H Lactic Acid 0.9 Calcium 7.3 L Magnesium Total Bilirubin 0.4 AST 166 H ALT 101 H Alkaline Phosphatase 58 B-Natriuretic Peptide 241 H Total Protein 5.5 L Albumin 3.2 L 25-OH Vitamin D Total Imaging Radiologist's Impressions: Impressions Chest X-Ray 05/29/23 04:55 IMPRESSION: Areas of opacity in the mid and lower right lung, new from prior, and possibly additional milder opacities in the perihilar left lung. Appearance may represent edema in the proper clinical setting. Multifocal pneumonia could also have a similar appearance. Quality Stroke Does the patient have a stroke diagnosis?: No VTE Prior VTE?: No VTE Risk Level:: Medical - moderate - high VTE Device Contraindication: Treatment Not Indicated VTE Drug Contraindication: N/A - Med Ordered
[2023-05-29] MEDS: Azithromycin 500 MG in 0.9 % Sodium Chloride 250 ML 125 MG IV (06:15)
[2023-05-29] MEDS: Thyroid,Pork 30 MG TABLET 120 MG PO (06:24)
[2023-05-29 06:51] LABS: MANUAL DIFF FLAG NO
--- NOTE | 2023-05-29 07:00 | CA_ITS ---
Transthoracic Echocardiogram Patient (Last, First, Middle): Daily Townsend M Gender: Female Date of : 1960 Age: 62 Procedure Date: 05/29/2023 Procedure Type: Transthoracic Echocardiogram Location[place] [facility] [place] Height: 170.18 cm Weight: 108.86 kg BSA: 2.18 m2 Heart Rate: bpm BP: 130 / 64 mmHg [employer] Technician: TO Referring MD: Terra Pacheco MD Symptoms: Fluid overload Study Quality: Technically Difficult/Contrast Conclusions: - The left ventricular systolic function is moderately decreased. The visually estimated ejection fraction is between 35-40%. Findings Procedure Information Contrast agent, definity, is being given per protocol without apparent complications. Left Ventricle Normal left ventricular cavity size. There is normal left ventricular wall thickness. The left ventricular systolic function is moderately decreased. The visually estimated ejection fraction is between 35-40%. There is moderate global hypokinesis. Diastolic function is normal for age. Right Ventricle Normal right ventricular cavity size and systolic function. Atria The left atrium is mildly dilated. The right atrium is normal in size. Aortic Valve There is a normal trileaflet aortic valve. There is no aortic valve stenosis. There is no aortic valve regurgitation. Mitral Valve The mitral valve appears normal. There is trace mitral valve regurgitation. There is no mitral valve stenosis. Pulmonic Valve The pulmonic valve is likely normal. Tricuspid Valve There is trace tricuspid valve regurgitation. There is no evidence of pulmonary hypertension. Great Vessels The asc aorta is normal in size. Venous The inferior vena cava is mildly dilated and collapses less than 50% with inspiration. Pericardium/Pleural There is a trivial pericardial effusion. Prior Study Comparison No prior study available for comparison. Measurements 2D Linear Measurements IVSd: 0.89 0.6-0.9/0.6-1.0 cm LVIDd: 4.65 3.9-5.3/4.2-5.9 cm LVIDd Index: 2.13 2.4-3.2/2.2-3.1 cm/m2 LVIDs: 3.42 2.0-3.6 cm LVPWd: 0.89 0.7-1.1 cm LA Diam: 3.40 2.7-3.8/3.0-4.0 cm LAIDs Index: 1.56 1.5-2.3 cm/m2 LV Mass: 172.69 67-162/88-224 g LV Mass Index: 79.22 43-95/49-115 g/m2 LVOT Diam: 2.30 3.0+(-)1.3 cm 2D Systolic Function EF 4C: 35.50 >55% EF 2C: 37.70 >55% EF BiP: 34.10 >55% Mitral Valve MV VTI: 0.18 MV Pk Jose: 1.12 MV Mn Jose: 0.80 MV Pk Grad: 5.00 MV Mn Grad: 3.00 MV Pk E: 0.99 MV PK A: 0.78 MV Decel Time: 179.00 E/A: 1.30 E'Lateral: 8.70 E'Medial: 8.38 E/E' Med: 11.90 E/E' Lat: 11.40 PHT: 52.00 MVA PHT: 4.23 MVA Continuity: 4.52 Decel [place]: 5.56 Aortic Valve AoV Pk Jose: 1.51 AoV Mn Jose: 1.08 AoV VTI: 0.27 AoV Pk Grad: 9.00 Aov Mn Grad: 5.00 ZITA Cont.VTI: 2.95 LVOT LVOT Pk Jose: 0.96 LVOT Mn Jose: 0.71 LVOT VTI: 0.19 LVOT Pk Grad: 4.00 LVOT Mn Grad: 2.00 LVOT Diam: 2.30 LVOT Area: 4.15 Diastolic Function MV Pk E: 0.99 MV Pk A: 0.78 E/A: 1.30 E'Medial: 8.38 E/E' Med: 11.90 E' Laterial: 8.70 E/E' Lat: 11.40 Right Ventricle TAPSE (mm): 20.90 TVS' Jose: 11.90 Tricuspid Valve RA Press: 8.00 Great Vessels Aorta Sinus of Valsalva: 3.16 2.0-3.[address] [place]: 2.38 1.7-3.4 cm Ao Asc: 3.00 2.1-3.4 cm Updated in Other Vendor System with Status of Final Jamil Mary MD electronically signed on 05/29/2023 10:48:36 AM with status of Final
[2023-05-29 07:22] LABS: Alanine Aminotransferase 103 U/L (0-31); Albumin Level 3.2 g/dL (3.5-5.0); Alkaline Phosphatase 61 U/L (39-117); Anion Gap 12 (12-20); Aspartate Amino Transferase 168 U/L (5-31); Bilirubin Direct 0.3 mg/dL (0.0-0.5); Bilirubin Total 0.4 mg/dL (0.0-1.0); Blood Urea Nitrogen 12 mg/dL (9-16); Calcium 7.3 mg/dL (8.4-10.2); Carbon Dioxide 24 mmol/L (22-29); Chloride 105 mmol/L (96-108); Creatinine Clr Calc Pharmacy 103.4; Estimated Glomerular Filt Rate > 60; Glucose Random 166 mg/dL (60-115); Potassium 3.4 mmol/L (3.3-5.1); Sodium 138 mmol/L (135-145); Total Protein 5.6 g/dL (6.5-8.0)
[2023-05-29 07:32] LABS: Basophils Percent Auto 0.3 % (0-2); Eosinophils Absolute Auto 0.1 X10*3/uL (0.0-0.4); Eosinophils Percent Auto 1.5 % (0-4); Hematocrit 32.7 % (37.0-47.0); Hemoglobin 10.8 g/dl (12.0-16.0); Imm Gran Abs Auto 0.07 X10*3/uL (0.00-0.03); Imm Gran Pct Auto 0.9 % (0.0-0.4); Lymphocytes Percent Auto 13.2 % (20-40); Mean Corpuscular Hemoglobin 30.9 pg (27.0-33.0); Mean Corpuscular Volume 93.7 fL (80.0-98.0); Mean Platelet Volume 11.4 fL (9.4-12.3); Monocytes Absolute Auto 0.4 X10*3/uL (0.1-1.2); Monocytes Percent Auto 5.1 % (2-11); Neutrophils Absolute Auto 5.8 x10*3/uL (2.0-8.3); Red Blood Count 3.49 X10*6/uL (4.20-5.50); Red Cell Distribution Width 13.6 % (11.0-16.0); White Blood Count 7.4 X10*3/uL (4.8-10.8)
[2023-05-29 07:34] LABS: Platelet Count 94 X10*3/uL (160-400)
[2023-05-29 07:41] LABS: Glucose, Whole Blood 156 mg/dL (60-115)
[2023-05-29 08:04] LABS: B Type Natriuretic Peptide 184 pg/mL (<100)
[2023-05-29] MEDS: carBAMazepine ER 100 MG TAB.ER.12H 300 MG PO (08:16)
[2023-05-29] MEDS: Metoprolol Succinate ER 25 MG TAB.ER.24H PO (08:16)
[2023-05-29] MEDS: cloZAPine 100 MG TABLET PO (08:17)
[2023-05-29] MEDS: Cyanocobalamin (Vitamin B-12) 100 MCG TABLET PO (08:17)
[2023-05-29] MEDS: Cholecalciferol (Vitamin D3) 10 MCG TABLET PO (08:17)
[2023-05-29] MEDS: Benztropine Mesylate 1 MG TABLET PO (08:17)
[2023-05-29] MEDS: Insulin Lispro 100 UNIT/ML 3 ML VIAL SUBCUT ×3 (08:17→17:59)
[2023-05-29] MEDS: Divalproex Sodium 500 MG TABLET.DR PO (08:17)
[2023-05-29] MEDS: Aspirin Enteric Coated 81 MG TABLET.DR PO (08:17)
[2023-05-29] MEDS: Magnesium Oxide 400 MG TABLET PO (08:17)
[2023-05-29] MEDS: Divalproex Sodium 250 MG TABLET.DR PO (08:17)
[2023-05-29] MEDS: Calcium + Vitamin D 250 MG TABLET 500 MG PO (08:17)
--- NOTE | 2023-05-29 08:44 | PC.RT ---
pt sats dropped to mid 80's on HFNC 45l-70% fi02. Sats increased to 80% and 50 l. Sats now 88-90%. pt in no resp distress. Lotus Bailey came up to see pt and will diurese pt more.
[2023-05-29] MEDS: Furosemide 40 MG/4 ML VIAL IVPUSH (09:05)
--- NOTE | 2023-05-29 10:11 | P.CONCA_ITS ---
History of Present Illness History of Present Illness Date of Service: 05/29/23 Chief complaint: N/D, electrolyte abnormalities Narrative: This is a cardiology consultation regarding congestive heart failure. Many comorbidities as listed including hypertension, diabetes, dyslipidemia, hypothyroidism, RANJANA noncompliant with CPAP, PTSD, bipolar presenting for nausea, diarrhea and poor p.o. intake. Initial diagnosis was viral gastroenteritis and she apparently also had hypokalemia/hypomagnesemia/hypoalbuminemia on arrival and criteria for SIRS. Overnight, it appears that she had respiratory distress and the diagnosis was possibly pulmonary edema. She got IV diuretics. We have been asked to see her. Patient is somewhat vague. She states that she used to go to [facility] but she does not know why. Specifically asked if she has any congestive heart failure or coronary disease but she states no. Hence unclear as to why she used to be seen at Cardiology. Her medical office worker was Dr. Omar Griffith per patient. Review of Systems 2 Review of Systems: Yes all other systems are reviewed and are negative Constitutional: Constitutional: Reports as per HPI and Reports no additional constitutional complaints Eyes: Eyes: Reports as per HPI and Denies no additional eye complaints ENT: Denies system reviewed and no additional complaints, except as documented and Reports as per HPI Cardiovascular: Cardiovascular: Reports as per HPI, Reports no additional cardiovascular complaints, Denies acrocyanosis, Denies cool extremities, Denies chest pain, Denies leg edema, Denies lightheadedness, Denies palpitations and Denies dyspnea Respiratory: Respiratory: Reports as per HPI, Denies no additional respiratory complaints and Denies dyspnea Gastrointestinal: Gastrointestinal: Reports as per HPI and Denies no additional gastrointestinal complaints Genitourinary: Genitourinary: Reports as per HPI Musculoskeletal: Musculoskeletal: Reports no additional musculoskeletal complaints and Reports as per HPI Integumentary/Breasts: Skin/Breast: Reports system reviewed and no additional complaints, except as docu Neurologic: Reports system reviewed and no additional complaints, except as documented and Reports as per HPI Psychiatric: Psychiatric: Reports no additional psychiatric complaints and Reports as per HPI Endocrine: Endocrine: Reports no additional endocrine complaints, Reports as per HPI and Denies palpitations Hematologic/Lymphatic: Hematologic/Lymphatic: Reports no additional hematologic/lymphatic complaints and Reports as per HPI Allergic/Immunologic: Allergic/Immunologic: Reports no additional allergic/immunologic complaints and Reports as per HPI PMFSH Past Medical History Medical History Hypertension Hyperlipidemia Type II diabetes mellitus PTSD (post-traumatic stress disorder) Family History Pertinent family history: Patient not able to give much information. Surgical History Surgical History History of cholecystectomy Social History Social History Household Members: Other Housing: Other Housing Other:: [facility] facility Do you presently have visiting nurse or other home services: No Patient Tobacco Use Status: Never used Tobacco Tobacco use type: Cigarette e-Cigarette/Vaping Use: Never Used Substance Use Type: Caffiene service: No Sexual orientation: Straight/Heterosexual Meds Allergies Allergy/AdvReac Type Severity Reaction Status Date / Time amoxicillin Allergy Unknown Unknown Uncoded 05/27/23 14:06 Pt states no food allergy Allergy Unknown Unknown Uncoded 05/27/23 14:06 Active Medications: Current Medications Acetaminophen (Acetaminophen 325 Mg Tablet) 975 mg PO Q6H PRN PRN Reason: Fever >101 Last Admin: 05/29/23 05:11 Dose: 975 mg Al Hydroxide/Mg Hydroxide (Magnesium Hydrox/Alum Hydrox 30 Ml Oral.Susp) 30 ml PO Q6H PRN PRN Reason: Heartburn/Nausea Last Admin: 05/29/23 05:11 Dose: 30 ml Amlodipine Besylate (Amlodipine Besylate 2.5 Mg Tablet) 2.5 mg PO DAILY [facility]; Protocol Last Admin: 05/28/23 11:14 Dose: Not Given Aspirin (Aspirin Enteric Coated 81 Mg Tablet.) 81 mg PO DAILY [facility] Last Admin: 05/29/23 08:17 Dose: 81 mg Atorvastatin Calcium (Atorvastatin Calcium 40 Mg Tablet) 40 mg PO BEDTIME [facility] Last Admin: 05/28/23 20:55 Dose: 40 mg Benzonatate (Benzonatate 100 Mg Capsule) 100 mg PO TID PRN PRN Reason: Cough Benztropine Mesylate (Benztropine Mesylate 1 Mg Tablet) 1 mg PO DAILY [facility] Last Admin: 05/29/23 08:17 Dose: 1 mg Calcium Carbonate/Cholecalciferol (Calcium + Vitamin D 250 Mg Tablet) 500 mg PO BIDWM [facility] Last Admin: 05/29/23 08:17 Dose: 500 mg Carbamazepine (Carbamazepine Er 100 Mg Tab.Er.12h) 300 mg PO DAILY [facility] Last Admin: 05/29/23 08:16 Dose: 300 mg Carbamazepine (Carbamazepine Er 200 Mg Tab.Er.12h) 400 mg PO BEDTIME BERNARDA Last Admin: 05/28/23 20:58 Dose: 400 mg Clozapine (Clozapine 25 Mg Tablet) 25 mg PO BEDTIME B[facility]ARDA Last Admin: 05/28/23 21:15 Dose: Not Given Clozapine (Clozapine 100 Mg Tablet) 100 mg PO BID [facility]AR[facility] Last Admin: 05/29/23 08:17 Dose: 100 mg Cyanocobalamin (Cyanocobalamin (Vitamin B-12) 100 Mcg Tablet) 100 mcg PO DAILY [facility] Last Admin: 05/29/23 08:17 Dose: 100 mcg Divalproex Sodium (Divalproex Sodium 250 Mg Tablet.) 250 mg PO BID [facility] Last Admin: 05/29/23 08:17 Dose: 250 mg Divalproex Sodium (Divalproex Sodium 500 Mg Tablet.) 500 mg PO BID [facility] Last Admin: 05/29/23 08:17 Dose: 500 mg Enoxaparin Sodium (Enoxaparin Sodium 40 Mg/0.4 Ml Syringe) 40 mg SUBCUT Q24H [facility] Last Admin: 05/28/23 21:13 Dose: Not Given Furosemide (Furosemide 20 Mg Tablet) 20 mg PO DAILY [facility]; Protocol Last Admin: 05/28/23 10:49 Dose: 20 mg Glucose (Glucose Gel 15 Gm Gel..Gram.) 15 gm PO Q15M PRN; Protocol PRN Reason: per Hypoglycemia Standing Ord. Ceftriaxone Sodium 1 gm/ (Sodium Chloride) 50 mls @ 100 mls/hr IV Q24H BERNARDA Last Infusion: 05/28/23 15:01 Dose: Infused Dextrose (D10) 250 mls @ 750 mls/hr IV Q15M PRN; Protocol PRN Reason: per Hypoglycemia Standing Ord. Azithromycin 500 mg/ Sodium (Chloride) 250 mls @ 125 mls/hr IV Q24H [facility] Last Infusion: 05/29/23 08:24 Dose: Infused Insulin Human Lispro (Insulin Lispro 100 Unit/Ml 3 Ml Vial) 0 unit SUBCUT QIDACHS [facility]; Protocol Last Admin: 05/29/23 08:17 Dose: 2 unit Lorazepam (Lorazepam 1 Mg Tablet) 1 mg PO Q4H PRN PRN Reason: becca Lorazepam (Lorazepam 1 Mg Tablet) 1 mg PO BEDTIME [facility] Last Admin: 05/28/23 20:58 Dose: 1 mg Magnesium Oxide (Magnesium Oxide 400 Mg Tablet) 400 mg PO DAILY [facility] Last Admin: 05/29/23 08:17 Dose: 400 mg Melatonin (Melatonin 3 Mg Tablet) 6 mg PO BEDTIME PRN PRN Reason: Insomnia Metoprolol Succinate (Metoprolol Succinate Er 25 Mg Tab.Er.24h) 25 mg PO DAILY [facility]; Protocol Last Admin: 05/29/23 08:16 Dose: 25 mg Ondansetron HCl (Ondansetron Hcl 4 Mg/2 Ml Vial) 4 mg IVPUSH Q8H PRN PRN Reason: Nausea and Vomiting Ondansetron HCl (Ondansetron Odt 4 Mg Tab.Rapdis) 4 mg TRANSLINGU Q6H PRN PRN Reason: Nausea Quetiapine Fumarate (Quetiapine Fumarate 50 Mg Tablet) 50 mg PO BID PRN PRN Reason: becca, agitation Quetiapine Fumarate (Quetiapine Fumarate 400 Mg Tablet) 400 mg PO BEDTIME [facility] Last Admin: 05/28/23 20:55 Dose: 400 mg Sodium Chloride (0.9 % Sodium Chloride Flush 3 Ml Syringe) 3 ml IVFLUSH QSHIFT [facility] Last Admin: 05/29/23 08:17 Dose: Not Given Thyroid (Thyroid,Pork 30 Mg Tablet) 120 mg PO DAILY@0630 [facility] Last Admin: 05/29/23 06:24 Dose: 120 mg Vitamin D (Cholecalciferol (Vitamin D3) 10 Mcg Tablet) 10 mcg PO DAILY [facility] Last Admin: 05/29/23 08:17 Dose: 10 mcg Home Medications ?Medication ?Instructions ?Recorded ?Confirmed ?Last Taken ?Type acetaminophen 325 mg tablet 650 mg PO Q6H PRN Pain 05/27/23 05/27/23 Unknown History atorvastatin 40 mg tablet 40 mg PO BEDTIME 05/27/23 05/27/23 Unknown History clozapine 100 mg tablet 100 mg PO BID 05/27/23 05/27/23 Unknown History clozapine 50 mg tablet 50 mg PO BEDTIME 05/27/23 05/27/23 Unknown History divalproex 250 mg tablet,delayed 250 mg PO BID 05/27/23 05/27/23 Unknown History release (Depakote) divalproex 500 mg tablet,delayed 500 mg PO BID 05/27/23 05/27/23 Unknown History release (Depakote) lorazepam 1 mg tablet 1 mg PO Q4H PRN becca 05/27/23 05/27/23 Unknown History magnesium hydroxide 400 mg/5 mL 30 ml PO BEDTIME PRN Constipation 05/27/23 05/27/23 Unknown History oral suspension (Milk of Magnesia) melatonin 3 mg tablet 9 mg PO BEDTIME PRN Insomnia 05/27/23 05/27/23 Unknown History thyroid (pork) 120 mg tablet ([employer] 120 mg PO DAILY@0630 05/27/23 05/27/23 Unknown History Thyroid) Physical Exam 2 Vital Signs: Vital Signs: Last Vital Signs Temp 98.4 F 05/29/23 07:58 Pulse 108 H 05/29/23 08:16 Resp 20 05/29/23 08:02 BP 117/65 05/29/23 09:05 Pulse Ox 90 L 05/29/23 07:58 O2 Del Method High Flow Nasal C annula 05/29/23 07:58 O2 Flow Rate 45 05/29/23 07:58 FiO2 70 05/29/23 07:58 Oxygen Flow Rate 15 05/29/23 06:00 BMI result Body Mass Index 37.7 Const: General: comfortable and no acute distress O rientation/consciousness: patient oriented x3 HEENT: Other: Unremarkable Head: Yes normal to inspection Neck: Neck: Yes normal visual inspection Chest: Chest palpation & inspection: normal inspection of the chest Resp: Auscultation: crackles Cardio: Palpation: normal PMI Heart sounds: S1 normal heart sound present, S2 normal heart sound present, no gallops, no murmurs and no rubs GI: Palpation (GI): Soft to palpation Back/Spine/Pelvis: Other: unremarkable Skin: General skin exam: no rashes or lesions noted Neuro: General: patient oriented x3 Extrem: General: Yes normal to inspection Psych: Mental Status: mental status grossly normal Objective Labs and Meds 05/29/23 06:33 05/29/23 06:33 Lab results: Laboratory Results - last 24 hr 05/28/23 05/28/23 05/28/23 12:03 14:49 16:11 WBC RBC Hgb Hct MCV MCH MCHC RDW Plt Count MPV Immature Gran % (Auto) Neut % (Auto) Lymph % (Auto) [place] % (Auto) Eos % (Auto) Baso % (Auto) Lymph # (Auto) [place] # (Auto) Eos # (Auto) Baso # (Auto) Abs Immat Gran (auto) Absolute Neuts (auto) Absolute Nucleated RBC Nucleated RBC % (auto) Neutrophils % (Manual) Band Neutrophils % Lymphocytes % (Manual) Monocytes % (Manual) Metamyelocytes % Abs Neuts (Manual) Lymphocytes # (Manual) Monocytes # (Manual) Metamyelocytes # Toxic Vacuolation Platelet Estimate Large Platelets Plt Morphology Comment RBC Morphology O2 Saturation ABG pH at Pt Temp ABG pCO2 at Pt Temp ABG pO2 at Pt Temp ABG HCO3 ABG Base Excess (Actual) Sodium Potassium Chloride Carbon Dioxide Anion Gap BUN Creatinine Estim Creat Clear Calc Estimated GFR POC Glucose 152 H 213 H Random Glucose Lactic Acid Calcium 7.1 L Total Bilirubin Direct Bilirubin AST ALT Alkaline Phosphatase B-Natriuretic Peptide Total Protein Albumin 25-OH Vitamin D Total 24.3 L 05/28/23 05/29/23 05/29/23 19:26 04:19 04:31 WBC 6.4 RBC 3.46 L Hgb 10.8 L Hct 32.0 L MCV 92.5 MCH 31.2 MCHC 33.8 RDW 13.6 Plt Count 87 L D MPV 10.4 Immature Gran % (Auto) Neut % (Auto) Lymph % (Auto) [place] % (Auto) Eos % (Auto) Baso % (Auto) Lymph # (Auto) [place] # (Auto) Eos # (Auto) Baso # (Auto) Abs Immat Gran (auto) Absolute Neuts (auto) Absolute Nucleated RBC 0.000 Nucleated RBC % (auto) 0.0 Neutrophils % (Manual) 45 Band Neutrophils % 41 H Lymphocytes % (Manual) 11 L Monocytes % (Manual) 2 Metamyelocytes % 1 Abs Neuts (Manual) 5.5 Lymphocytes # (Manual) 0.7 L Monocytes # (Manual) 0.1 Metamyelocytes # 0.1 Toxic Vacuolation PRESENT Platelet Estimate DECREASED Large Platelets PRESENT Plt Morphology Comment NORMAL RBC Morphology NORMAL O2 Saturation ABG pH at Pt Temp ABG pCO2 at Pt Temp ABG pO2 at Pt Temp ABG HCO3 ABG Base Excess (Actual) Sodium 137 Potassium 4.1 D Chloride 107 Carbon Dioxide 23 Anion Gap 11 L BUN 12 Creatinine 0.68 Estim Creat Clear Calc 106.3 Estimated GFR > 60 POC Glucose 128 H 123 H Random Glucose 125 H Lactic Acid 0.9 Calcium 7.3 L Total Bilirubin 0.4 Direct Bilirubin AST 166 H ALT 101 H Alkaline Phosphatase 58 B-Natriuretic Peptide 241 H Total Protein 5.5 L Albumin 3.2 L 25-OH Vitamin D Total 05/29/23 05/29/23 05/29/23 04:39 06:33 07:37 WBC 7.4 RBC 3.49 L Hgb 10.8 L Hct 32.7 L MCV 93.7 MCH 30.9 MCHC 33.0 RDW 13.6 Plt Count 94 L MPV 11.4 Immature Gran % (Auto) 0.9 H Neut % (Auto) 79.0 H Lymph % (Auto) 13.2 L [place] % (Auto) 5.1 Eos % (Auto) 1.5 Baso % (Auto) 0.3 Lymph # (Auto) 1.0 L [place] # (Auto) 0.4 Eos # (Auto) 0.1 Baso # (Auto) 0.0 Abs Immat Gran (auto) 0.07 H Absolute Neuts (auto) 5.8 Absolute Nucleated RBC 0.000 Nucleated RBC % (auto) 0.0 Neutrophils % (Manual) Band Neutrophils % Lymphocytes % (Manual) Monocytes % (Manual) Metamyelocytes % Abs Neuts (Manual) Lymphocytes # (Manual) Monocytes # (Manual) Metamyelocytes # Toxic Vacuolation Platelet Estimate Large Platelets Plt Morphology Comment RBC Morphology O2 Saturation 90.0 ABG pH at Pt Temp 7.41 ABG pCO2 at Pt Temp 36 ABG pO2 at Pt Temp 58 L ABG HCO3 23 ABG Base Excess (Actual) -0.7 Sodium 138 Potassium 3.4 Chloride 105 Carbon Dioxide 24 Anion Gap 12 BUN 12 Creatinine 0.70 Estim Creat Clear Calc 103.4 Estimated GFR > 60 POC Glucose 156 H Random Glucose 166 H Lactic Acid Calcium 7.3 L Total Bilirubin 0.4 Direct Bilirubin 0.3 AST 168 H ALT 103 H Alkaline Phosphatase 61 B-Natriuretic Peptide 184 H Total Protein 5.6 L Albumin 3.2 L 25-OH Vitamin D Total ECG Interpretation: EKG with sinus tachycardia at 117/Min; can not exclude old anterior infarct but could be from body habitus. Normal UT/corrected QT. in the repeat EKG, there is sinus tachycardia/artifact. Otherwise no clear significant findings. Imaging Radiologist's impression: Impressions Chest X-Ray 05/29/23 04:55 IMPRESSION: Areas of opacity in the mid and lower right lung, new from prior, and possibly additional milder opacities in the perihilar left lung. Appearance may represent edema in the proper clinical setting. Multifocal pneumonia could also have a similar appearance. Assessment and Plan (1) Acute congestive heart failure: Status: Acute Plan EKG with some nonspecific changes/sinus tachycardia. Cardiac BNP when she 1st came in was 19. However, this went up to 241 followed by 184. Chest x-ray could reflect pulmonary edema or pneumonia. Echocardiogram from [facility], 2020 with LVEF of 60-60%; no wall motion abnormalities; no significant valvular findings. Overall, possible acute congestive heart failure related to fluids. Unclear while the prior cardiac issues. For now, IV diuretics. We will review the echocardiogram. Need to get old records, will request. Will follow-up with you. Discussed with Lotus Bailey. Procedures Date of Service Date of Service: 05/29/23
[2023-05-29 10:58] LABS: Adenovirus PCR Not Detected (Not Detect.); Bordetella parapertussis PCR Not Detected (Not Detect.); Bordetella pertussis PCR Not Detected (Not Detect.); Chlamydia pneumoniae PCR Not Detected (Not Detect.); Coronavirus 229E PCR Not Detected (Not Detect.); Coronavirus HKU1 PCR Not Detected (Not Detect.); Coronavirus NL63 PCR Not Detected (Not Detect.); Coronavirus OC43 PCR Not Detected (Not Detect.); Human metapneumovirus PCR Not Detected (Not Detect.); Influenza A PCR Not Detected (Not Detect.); Influenza B PCR Not Detected (Not Detect.); Mycoplasma pneumoniae PCR Not Detected (Not Detect.); Parainfluenza 1 PCR Not Detected (Not Detect.); Parainfluenza 2 PCR Not Detected (Not Detect.); Parainfluenza 3 PCR Not Detected (Not Detect.); Parainfluenza 4 PCR Not Detected (Not Detect.); RSV PCR Not Detected (Not Detect.); Rhino/Enterovirus PCR Not Detected (Not Detect.)
[2023-05-29 11:00] LABS: SARS-CoV-2 PCR Not Detected (Not Detect.)
[2023-05-29 11:10] LABS: Glucose, Whole Blood 165 mg/dL (60-115)
--- NOTE | 2023-05-29 11:26 | PC.RT ---
Rt called to see pt as sats decreasing to mid 80's. Pt placed on 100% via HFNC and 10 Liter Oxymask. Leo called came to bedside and said Dr. Alcazar just consulted. Will continue to diureses. RR 28 with diffuse exp wheezes and crackles throughout. Sats after fi02/Oxymask change now 87% hr 110-120
--- NOTE | 2023-05-29 11:29 | HE.PHANOTE ---
RE VANCO 05/27 - Provider wanted 1500 mg X 1 empirically while microbio was being analyzed. 05/28 - Provider now wants consult. 1500 mg was not a proper load but will continue with the dose Q12H and get a level after two more doses. Predicted AUC 582.
[2023-05-29] MEDS: Furosemide 200 MG in 0.9 % Sodium Chloride 80 ML IVCONT (11:35)
[2023-05-29 11:56] LABS: ABG Base Excess 4.3 mmol/L; ABG HCO3 28 mmol/L (22-26); ABG pCO2 40 mmHg (32-45); ABG pH 7.45 (7.35-7.45); ABG pO2 58 mmHg (83-108)
[2023-05-29] MEDS: cefEPime HCl 2 GM in 0.9 % Sodium Chloride 50 ML IV ×2 (11:57→18:22)
[2023-05-29] MEDS: metOLazone 2.5 MG TABLET PO (11:58)
--- NOTE | 2023-05-29 12:28 | PC.NURSE ---
Around 11:20 Patient was maintaining an steady O2 pleth of 85%, Respiratory notified. Titrated to High flow 100% 50L with Oxymask 15L, satO2 88%. MD Bailey came to bedside. Labs ordered and Medications ordered, refer to patients chart.
[2023-05-29 12:34] LABS: D Dimer High Sensitivity 2947 NG/ML
[2023-05-29] MEDS: vancomycin HCL 1,500 MG in 0.9 % Sodium Chloride 500 ML 333.33 MG IV (12:41)
--- NOTE | 2023-05-29 12:58 | P.PNIM_ITS ---
Subjective Subjective Date of Service: 05/29/23 Interval History: Seen and examined this morning Follow-up for fever, diarrhea Overnight patient developed respiratory distress, hypoxia and was placed on high-flow oxygen Thought to be related to fluid overload, treated with Lasix Awake and alert this morning, able to speak in full sentences but still with high oxygen requirements does not like the high flow oxygen Review of Systems Review of Systems: Yes all other systems are reviewed and are negative Constitutional Constitutional: Denies chills and Denies fever(s) Cardiovascular Cardiovascular: Denies chest pain, Denies palpitations and Denies dyspnea Respiratory Respiratory: Denies dyspnea Gastrointestinal Gastrointestinal: Denies abdominal pain Endocrine Endocrine: Denies palpitations Physical Exam 2 Vital Signs: Vital Signs: Last Vital Signs Temp 99.0 F 05/29/23 11:20 Pulse 111 H 05/29/23 11:20 Resp 20 05/29/23 11:20 BP 102/60 05/29/23 11:35 Pulse Ox 88 L 05/29/23 11:20 O2 Del Method High Flow Nasal C annula 05/29/23 11:20 O2 Flow Rate 50 05/29/23 11:20 FiO2 88 05/29/23 11:20 Oxygen Flow Rate 15 05/29/23 06:00 BMI result Body Mass Index 37.7 Const: General: alert and awake Nutritional Appearance: obese O rientation/consciousness: patient oriented x3 Resp: Other: rales/wheeze Effort & Inspection: able to speak in complete sentences and no use of accessory muscles Cardio: Rate: tachycardic GI: Palpation (GI): Soft to palpation and nontender Neuro: General: patient oriented x3, moves all extremities and CN's II-XI intact bilaterally Extrem: General: Yes no pedal edema Objective Data Active Medications Acetaminophen (Acetaminophen 325 Mg Tablet) 975 mg PO Q6H PRN PRN Reason: Fever >101 Last Admin: 05/29/23 05:11 Dose: 975 mg Documented By: TY Al Hydroxide/Mg Hydroxide (Magnesium Hydrox/Alum Hydrox 30 Ml Oral.Susp) 30 ml PO Q6H PRN PRN Reason: Heartburn/Nausea Last Admin: 05/29/23 05:11 Dose: 30 ml Documented By: TY Amlodipine Besylate (Amlodipine Besylate 2.5 Mg Tablet) 2.5 mg PO DAILY BERNARDA; Protocol Last Admin: 05/28/23 11:14 Dose: Not Given Documented By: JAYY Non-Admin Reason: Physician Held Med Aspirin (Aspirin Enteric Coated 81 Mg Tablet.) 81 mg PO DAILY [facility] Last Admin: 05/29/23 08:17 Dose: 81 mg Documented By: RAJNI Atorvastatin Calcium (Atorvastatin Calcium 40 Mg Tablet) 40 mg PO BEDTIME [facility] Last Admin: 05/28/23 20:55 Dose: 40 mg Documented By: TY Benzonatate (Benzonatate 100 Mg Capsule) 100 mg PO TID PRN PRN Reason: Cough Benztropine Mesylate (Benztropine Mesylate 1 Mg Tablet) 1 mg PO DAILY [facility] Last Admin: 05/29/23 08:17 Dose: 1 mg Documented By: RAJNI Calcium Carbonate/Cholecalciferol (Calcium + Vitamin D 250 Mg Tablet) 500 mg PO BIDWM [facility] Last Admin: 05/29/23 08:17 Dose: 500 mg Documented By: RAJNI Carbamazepine (Carbamazepine Er 100 Mg Tab.Er.12h) 300 mg PO DAILY [facility] Last Admin: 05/29/23 08:16 Dose: 300 mg Documented By: RAJNI Carbamazepine (Carbamazepine Er 200 Mg Tab.Er.12h) 400 mg PO BEDTIME [facility] Last Admin: 05/28/23 20:58 Dose: 400 mg Documented By: TY Clozapine (Clozapine 25 Mg Tablet) 25 mg PO BEDTIME [facility] Last Admin: 05/28/23 21:15 Dose: Not Given Documented By: TY Non-Admin Reason: Patient Refused Clozapine (Clozapine 100 Mg Tablet) 100 mg PO BID [facility] Last Admin: 05/29/23 08:17 Dose: 100 mg Documented By: RAJNI Cyanocobalamin (Cyanocobalamin (Vitamin B-12) 100 Mcg Tablet) 100 mcg PO DAILY [facility] Last Admin: 05/29/23 08:17 Dose: 100 mcg Documented By: RAJNI Divalproex Sodium (Divalproex Sodium 250 Mg Tablet.) 250 mg PO BID [facility] Last Admin: 05/29/23 08:17 Dose: 250 mg Documented By: RAJNI Divalproex Sodium (Divalproex Sodium 500 Mg Tablet.) 500 mg PO BID [facility] Last Admin: 05/29/23 08:17 Dose: 500 mg Documented By: RAJNI Enoxaparin Sodium (Enoxaparin Sodium 40 Mg/0.4 Ml Syringe) 40 mg SUBCUT Q24H [facility] Last Admin: 05/28/23 21:13 Dose: Not Given Documented By: TY Non-Admin Reason: Patient Refused Glucose (Glucose Gel 15 Gm Gel..Gram.) 15 gm PO Q15M PRN; Protocol PRN Reason: per Hypoglycemia Standing Ord. Dextrose (D10) 250 mls @ 750 mls/hr IV Q15M PRN; Protocol PRN Reason: per Hypoglycemia Standing Ord. Furosemide 200 mg/ Sodium (Chloride) 100 mls @ 5 mls/hr IVCONT .Q20H [facility] Last Admin: 05/29/23 11:35 Dose: 10 mg/hr, 5 mls/hr Documented By: RAJNI Cefepime HCl 2 gm/ Sodium (Chloride) 50 mls @ 100 mls/hr IV Q8H [facility] Last Infusion: 05/29/23 12:48 Dose: Infused Documented By: RAJNI Vancomycin HCl 1,500 mg/ (Sodium Chloride) 500 mls @ 333.333 mls/hr IV Q12H [facility] Last Admin: 05/29/23 12:41 Dose: 333.33 mls/hr Documented By: RAJNI Insulin Human Lispro (Insulin Lispro 100 Unit/Ml 3 Ml Vial) 0 unit SUBCUT QIDACHS [facility]; Protocol Last Admin: 05/29/23 11:41 Dose: 2 unit Documented By: RAJNI Lorazepam (Lorazepam 1 Mg Tablet) 1 mg PO Q4H PRN PRN Reason: becca Lorazepam (Lorazepam 1 Mg Tablet) 1 mg PO BEDTIME [facility] Last Admin: 05/28/23 20:58 Dose: 1 mg Documented By: TY Magnesium Oxide (Magnesium Oxide 400 Mg Tablet) 400 mg PO DAILY [facility] Last Admin: 05/29/23 08:17 Dose: 400 mg Documented By: RAJNI Melatonin (Melatonin 3 Mg Tablet) 6 mg PO BEDTIME PRN PRN Reason: Insomnia Metoprolol Succinate (Metoprolol Succinate Er 25 Mg Tab.Er.24h) 25 mg PO DAILY [facility]; Protocol Last Admin: 05/29/23 08:16 Dose: 25 mg Documented By: RAJNI Ondansetron HCl (Ondansetron Hcl 4 Mg/2 Ml Vial) 4 mg IVPUSH Q8H PRN PRN Reason: Nausea and Vomiting Ondansetron HCl (Ondansetron Odt 4 Mg Tab.Rapdis) 4 mg TRANSLINGU Q6H PRN PRN Reason: Nausea Pharmacy Consult (Consult Rx Vancomycin Dosing) 1 each MISCELLANE DAILY PRN PRN Reason: Consult order Quetiapine Fumarate (Quetiapine Fumarate 50 Mg Tablet) 50 mg PO BID PRN PRN Reason: becca, agitation Quetiapine Fumarate (Quetiapine Fumarate 400 Mg Tablet) 400 mg PO BEDTIME [facility] Last Admin: 05/28/23 20:55 Dose: 400 mg Documented By: TY Sodium Chloride (0.9 % Sodium Chloride Flush 3 Ml Syringe) 3 ml IVFLUSH QSHIFT [facility] Last Admin: 05/29/23 08:17 Dose: Not Given Documented By: RAJNI Non-Admin Reason: IV Running Thyroid (Thyroid,Pork 30 Mg Tablet) 120 mg PO DAILY@0630 [facility] Last Admin: 05/29/23 06:24 Dose: 120 mg Documented By: TY Vitamin D (Cholecalciferol (Vitamin D3) 10 Mcg Tablet) 10 mcg PO DAILY [facility] Last Admin: 05/29/23 08:17 Dose: 10 mcg Documented By: RAJNI Labs 05/29/23 06:33 05/29/23 06:33 Labs: Laboratory Results - last 24 hr 05/28/23 05/28/23 05/28/23 14:49 16:11 19:26 MCV MCH MCHC RDW Plt Count MPV Immature Gran % (Auto) Neut % (Auto) Lymph % (Auto) Sawyer % (Auto) Eos % (Auto) Baso % (Auto) Lymph # (Auto) Sawyer # (Auto) Eos # (Auto) Baso # (Auto) Abs Immat Gran (auto) Absolute Neuts (auto) Absolute Nucleated RBC Nucleated RBC % (auto) Neutrophils % (Manual) Band Neutrophils % Lymphocytes % (Manual) Monocytes % (Manual) Metamyelocytes % Abs Neuts (Manual) Lymphocytes # (Manual) Monocytes # (Manual) Metamyelocytes # Toxic Vacuolation Platelet Estimate Large Platelets Plt Morphology Comment RBC Morphology D-Dimer High Sensitivty O2 Saturation ABG pH at Pt Temp ABG pCO2 at Pt Temp ABG pO2 at Pt Temp ABG HCO3 ABG Base Excess (Actual) Anion Gap Estim Creat Clear Calc Estimated GFR POC Glucose 213 H 128 H Random Glucose Lactic Acid Calcium 7.1 L Total Bilirubin Direct Bilirubin AST ALT Alkaline Phosphatase B-Natriuretic Peptide Total Protein Albumin 25-OH Vitamin D Total 24.3 L Procalcitonin Respiratory Panel Ashley Adenovirus (Rapid PCR) B.pert (TEM-PCR) B.parapertussis DNA PCR C. pneumoniae DNA (PCR) Coronavirus OC43 (PCR) Coronavirus HKU1 (PCR) Coronavirus 229E (PCR) Coronavirus NL63 (PCR) Human Metapneumovir PCR Influenza A (RT-PCR) Influenza B (RT-PCR) M. pneumoniae (PCR) Parainfluenza 1 (PCR) Parainfluenza 2 (PCR) Parainfluenza 3 (PCR) Parainfluenza 4 (PCR) RSV (PCR) Entero/Rhino (PCR) SARS-CoV-2 RNA (RT-PCR) 05/29/23 05/29/23 05/29/23 04:19 04:31 04:39 MCV 92.5 MCH 31.2 MCHC 33.8 RDW 13.6 Plt Count 87 L D MPV 10.4 Immature Gran % (Auto) Neut % (Auto) Lymph % (Auto) Sawyer % (Auto) Eos % (Auto) Baso % (Auto) Lymph # (Auto) Sawyer # (Auto) Eos # (Auto) Baso # (Auto) Abs Immat Gran (auto) Absolute Neuts (auto) Absolute Nucleated RBC 0.000 Nucleated RBC % (auto) 0.0 Neutrophils % (Manual) 45 Band Neutrophils % 41 H Lymphocytes % (Manual) 11 L Monocytes % (Manual) 2 Metamyelocytes % 1 Abs Neuts (Manual) 5.5 Lymphocytes # (Manual) 0.7 L Monocytes # (Manual) 0.1 Metamyelocytes # 0.1 Toxic Vacuolation PRESENT Platelet Estimate DECREASED Large Platelets PRESENT Plt Morphology Comment NORMAL RBC Morphology NORMAL D-Dimer High Sensitivty O2 Saturation 90.0 ABG pH at Pt Temp 7.41 ABG pCO2 at Pt Temp 36 ABG pO2 at Pt Temp 58 L ABG HCO3 23 ABG Base Excess (Actual) -0.7 Anion Gap 11 L Estim Creat Clear Calc 106.3 Estimated GFR > 60 POC Glucose 123 H Random Glucose 125 H Lactic Acid 0.9 Calcium 7.3 L Total Bilirubin 0.4 Direct Bilirubin AST 166 H ALT 101 H Alkaline Phosphatase 58 B-Natriuretic Peptide 241 H Total Protein 5.5 L Albumin 3.2 L 25-OH Vitamin D Total Procalcitonin 0.90 Respiratory Panel Ashley Adenovirus (Rapid PCR) B.pert (TEM-PCR) B.parapertussis DNA PCR C. pneumoniae DNA (PCR) Coronavirus OC43 (PCR) Coronavirus HKU1 (PCR) Coronavirus 229E (PCR) Coronavirus NL63 (PCR) Human Metapneumovir PCR Influenza A (RT-PCR) Influenza B (RT-PCR) M. pneumoniae (PCR) Parainfluenza 1 (PCR) Parainfluenza 2 (PCR) Parainfluenza 3 (PCR) Parainfluenza 4 (PCR) RSV (PCR) Entero/Rhino (PCR) SARS-CoV-2 RNA (RT-PCR) 05/29/23 05/29/23 05/29/23 06:33 07:37 09:00 MCV 93.7 MCH 30.9 MCHC 33.0 RDW 13.6 Plt Count 94 L MPV 11.4 Immature Gran % (Auto) 0.9 H Neut % (Auto) 79.0 H Lymph % (Auto) 13.2 L Sawyer % (Auto) 5.1 Eos % (Auto) 1.5 Baso % (Auto) 0.3 Lymph # (Auto) 1.0 L Sawyer # (Auto) 0.4 Eos # (Auto) 0.1 Baso # (Auto) 0.0 Abs Immat Gran (auto) 0.07 H Absolute Neuts (auto) 5.8 Absolute Nucleated RBC 0.000 Nucleated RBC % (auto) 0.0 Neutrophils % (Manual) Band Neutrophils % Lymphocytes % (Manual) Monocytes % (Manual) Metamyelocytes % Abs Neuts (Manual) Lymphocytes # (Manual) Monocytes # (Manual) Metamyelocytes # Toxic Vacuolation Platelet Estimate Large Platelets Plt Morphology Comment RBC Morphology D-Dimer High Sensitivty O2 Saturation ABG pH at Pt Temp ABG pCO2 at Pt Temp ABG pO2 at Pt Temp ABG HCO3 ABG Base Excess (Actual) Anion Gap 12 Estim Creat Clear Calc 103.4 Estimated GFR > 60 POC Glucose 156 H Random Glucose 166 H Lactic Acid Calcium 7.3 L Total Bilirubin 0.4 Direct Bilirubin 0.3 AST 168 H ALT 103 H Alkaline Phosphatase 61 B-Natriuretic Peptide 184 H Total Protein 5.6 L Albumin 3.2 L 25-OH Vitamin D Total Procalcitonin Respiratory Panel Ashley See Note Adenovirus (Rapid PCR) Not Detected B.pert (TEM-PCR) Not Detected B.parapertussis DNA PCR Not Detected C. pneumoniae DNA (PCR) Not Detected Coronavirus OC43 (PCR) Not Detected Coronavirus HKU1 (PCR) Not Detected Coronavirus 229E (PCR) Not Detected Coronavirus NL63 (PCR) Not Detected Human Metapneumovir PCR Not Detected Influenza A (RT-PCR) Not Detected Influenza B (RT-PCR) Not Detected M. pneumoniae (PCR) Not Detected Parainfluenza 1 (PCR) Not Detected Parainfluenza 2 (PCR) Not Detected Parainfluenza 3 (PCR) Not Detected Parainfluenza 4 (PCR) Not Detected RSV (PCR) Not Detected Entero/Rhino (PCR) Not Detected SARS-CoV-2 RNA (RT-PCR) Not Detected 05/29/23 05/29/23 05/29/23 11:06 11:40 11:49 MCV MCH MCHC RDW Plt Count MPV Immature Gran % (Auto) Neut % (Auto) Lymph % (Auto) Sawyer % (Auto) Eos % (Auto) Baso % (Auto) Lymph # (Auto) Sawyer # (Auto) Eos # (Auto) Baso # (Auto) Abs Immat Gran (auto) Absolute Neuts (auto) Absolute Nucleated RBC Nucleated RBC % (auto) Neutrophils % (Manual) Band Neutrophils % Lymphocytes % (Manual) Monocytes % (Manual) Metamyelocytes % Abs Neuts (Manual) Lymphocytes # (Manual) Monocytes # (Manual) Metamyelocytes # Toxic Vacuolation Platelet Estimate Large Platelets Plt Morphology Comment RBC Morphology D-Dimer High Sensitivty 2947 O2 Saturation 90.0 ABG pH at Pt Temp 7.45 ABG pCO2 at Pt Temp 40 ABG pO2 at Pt Temp 58 L ABG HCO3 28 H ABG Base Excess (Actual) 4.3 Anion Gap Estim Creat Clear Calc Estimated GFR POC Glucose 165 H Random Glucose Lactic Acid Calcium Total Bilirubin Direct Bilirubin AST ALT Alkaline Phosphatase B-Natriuretic Peptide Total Protein Albumin 25-OH Vitamin D Total Procalcitonin Respiratory Panel Ashley Adenovirus (Rapid PCR) B.pert (TEM-PCR) B.parapertussis DNA PCR C. pneumoniae DNA (PCR) Coronavirus OC43 (PCR) Coronavirus HKU1 (PCR) Coronavirus 229E (PCR) Coronavirus NL63 (PCR) Human Metapneumovir PCR Influenza A (RT-PCR) Influenza B (RT-PCR) M. pneumoniae (PCR) Parainfluenza 1 (PCR) Parainfluenza 2 (PCR) Parainfluenza 3 (PCR) Parainfluenza 4 (PCR) RSV (PCR) Entero/Rhino (PCR) SARS-CoV-2 RNA (RT-PCR) Microbiology Microbiology Results: Microbiology 05/27/23 13:55 Blood Culture - Final Blood - Venous Coag negative Staphylococcus 05/28/23 Unknown Urine Culture - Final Urine clean catch - Urine chandler top 05/27/23 13:59 Blood Culture - Preliminary Blood - Venous No growth after 24 hours. Assessment and Plan (1) Acute congestive heart failure: Status: Acute (2) Fever: Status: Acute (3) Acute respiratory failure with hypoxia: Status: Acute Plan This is a 62-year-old female with a PMH significant for?HTN, HLD, non insulin- dependent type 2 diabetes, hypothyroidism, RANJANA noncompliant with CPAP, PTSD, and bipolar disorder who presents to the ED for evaluation of nausea, diarrhea, and poor p.o. intake times 2-3 days found to have fever, some electrolyte abnormalities in the setting of intractable diarrhea Acute respiratory failure with hypoxia likely due to fluid overload and possible pneumonia Echo with EF 35-40% moderate global hypokinesis ddimer around 3000, unable to lay flat without desaturating, will check b/l LE US to eval for DVT. Respiratory pathogen panel negative, ddimer increased to 0.90 ABG with no co2 retension broaden antibiotic coverage, will change to IV vancomycin and cefepime will start lasix drip BNP 184, will check troponin seen by cardiology, pulmonology/critical care Continue high-flow supplemental oxygen, wean as tolerated SIRS Patient met criteria with fever, tachycardia, tachypnea; lactic acid WNL. still with fever 102 this morning initially thought secondary to viral gastroenteritis but GI symptoms improving and with persistent fever now with concern for possible pneumonia Urine culture 50-100,000 CFU mixed bacteria tadeo characteristic of contamination 1/2 Blood cultures growing coag-negative staph, likely contamination Repeat blood cultures pending IV vancomycin and cefepime as above Thrombocytopenia ?due to acute illness follow CBC Nausea, diarrhea, poor p.o. intake possible viral gastroenteritis CT of abdomen and pelvis negative GI panel negative C diff not collected, no further diarrhea symptoms resolved transaminitis LFTs stable continue to follow LFTs Hypokalemia Likely secondary to reduced p.o. intake and GI losses improved with replacement Hypomagnesemia Likely secondary to reduced p.o. intake and GI losses improved with replacement hypocalcemia 7.9 when corrected for low albumin vit d 24 replacement for calcium, vit D HTN blood pressure soft hold amlodipine, metoprolol, home lasix Pulmonary nodule CT of abd/pelvis found 6 mm left lower lobe pulmonary nodule outpatient follow up HLD Continue statin [id number] diabetes type 2 SSI, diabetic diet follow POCs Hypothyroidism TSH wnl Continue home meds Mood disorder continue clozapine 100 mg Continue all other home medications Psych consult for med reconciliation - will hold all prn's to avoid sedation Full Code Attending:?Dr. Mckenna DVT Prophylaxis: Lovenox HCP -brother Updated Patient requires ongoing inpatient stay for respiratory failure requiring high- flow oxygen and close monitoring of respiratory status as well as specialist evaluation Quality Stroke Does the patient have a stroke diagnosis?: No VTE Prior VTE?: No VTE Risk Level:: Medical - moderate - high VTE Device Contraindication: Treatment Not Indicated VTE Drug Contraindication: N/A - Med Ordered
--- NOTE | 2023-05-29 13:20 | PM.CNPUL ---
History of Present Illness History of Present Illness Consult date: 05/29/23 Chief complaint: Acute hypoxia, pulmonary edema Narrative: 62-year-old lady with underlying hypertension, diabetes mellitus, RANJANA, PTSD, bipolar disorder admitted on 05/27/2023 with watery day with multiple electrolyte abnormalities. Patient was treated with empiric ceftriaxone and electrolyte replacement. Overnight on 05/28/2023 she developed acute hypoxia with chest x-ray showing pulmonary edema requiring maximum high-flow nasal cannula support. Pulmonary evaluation is requested. On exam patient is lethargic, but arousable and tries to answer appropriately. She does complain of some dyspnea, but denies cough. Review of Systems Constitutional: Constitutional: Denies daytime sleepiness, Denies excessive sweating, Denies fatigue, Denies fever(s), Denies lethargy, Denies malaise, Denies night sweats, Denies snoring and Denies weight loss Eyes: Eyes: Denies blurry vision and Denies itchy eyes ENT: Denies nasal congestion, Denies post nasal drip, Denies sinus pain, Denies sinus pressure and Denies other ( Thrush) Cardiovascular: Cardiovascular: Denies chest pain, Denies pedal edema, Reports dyspnea, Reports orthopnea and Denies paroxysmal nocturnal dyspnea Respiratory: Respiratory: Denies cough, Denies hemoptysis, Denies excessive phlegm production, Reports dyspnea, Denies snoring and Denies wheezing Gastrointestinal: Gastrointestinal: Denies abdominal pain and Denies heartburn Musculoskeletal: Musculoskeletal: Denies myalgias, Denies arthralgias and Denies joint swelling Integumentary/Breasts: Skin/Breast: Denies rash Neurologic: Denies memory loss and Denies seizure-like activity Psychiatric: Psychiatric: Denies abnormal sleep pattern, Denies anxiety and Denies memory loss Endocrine: Endocrine: Denies excessive sweating, Denies fatigue and Denies heat intolerance Hematologic/Lymphatic: Hematologic/Lymphatic: Denies easy bruising Allergic/Immunologic: Allergic/Immunologic: Denies itchy eyes, Denies seasonal rhinorrhea and Denies wheezing PMFSH Past Medical History Medical History Hypertension Hyperlipidemia Type II diabetes mellitus PTSD (post-traumatic stress disorder) Surgical History Surgical History History of cholecystectomy Social History Social History Household Members: Other Housing: Other Housing Other:: [facility] facility Do you presently have visiting nurse or other home services: No Patient Tobacco Use Status: Never used Tobacco Tobacco use type: Cigarette e-Cigarette/Vaping Use: Never Used Substance Use Type: Caffiene service: No Sexual orientation: Straight/Heterosexual Meds Allergies Allergy/AdvReac Type Severity Reaction Status Date / Time amoxicillin Allergy Unknown Unknown Uncoded 05/27/23 14:06 Pt states no food allergy Allergy Unknown Unknown Uncoded 05/27/23 14:06 Active Medications: Current Medications Acetaminophen (Acetaminophen 325 Mg Tablet) 975 mg PO Q6H PRN PRN Reason: Fever >101 Last Admin: 05/29/23 05:11 Dose: 975 mg Al Hydroxide/Mg Hydroxide (Magnesium Hydrox/Alum Hydrox 30 Ml Oral.Susp) 30 ml PO Q6H PRN PRN Reason: Heartburn/Nausea Last Admin: 05/29/23 05:11 Dose: 30 ml Amlodipine Besylate (Amlodipine Besylate 2.5 Mg Tablet) 2.5 mg PO DAILY [facility]; Protocol Last Admin: 05/28/23 11:14 Dose: Not Given Aspirin (Aspirin Enteric Coated 81 Mg Tablet.Dr) 81 mg PO DAILY [facility] Last Admin: 05/29/23 08:17 Dose: 81 mg Atorvastatin Calcium (Atorvastatin Calcium 40 Mg Tablet) 40 mg PO BEDTIME BERNARDA Last Admin: 05/28/23 20:55 Dose: 40 mg Benzonatate (Benzonatate 100 Mg Capsule) 100 mg PO TID PRN PRN Reason: Cough Benztropine Mesylate (Benztropine Mesylate 1 Mg Tablet) 1 mg PO DAILY [facility] Last Admin: 05/29/23 08:17 Dose: 1 mg Calcium Carbonate/Cholecalciferol (Calcium + Vitamin D 250 Mg Tablet) 500 mg PO BIDWM BERNARDA Last Admin: 05/29/23 08:17 Dose: 500 mg Carbamazepine (Carbamazepine Er 100 Mg Tab.Er.12h) 300 mg PO DAILY [facility] Last Admin: 05/29/23 08:16 Dose: 300 mg Carbamazepine (Carbamazepine Er 200 Mg Tab.Er.12h) 400 mg PO BEDTIME BERNARDA Last Admin: 05/28/23 20:58 Dose: 400 mg Clozapine (Clozapine 25 Mg Tablet) 25 mg PO BEDTIME BERNARDA Last Admin: 05/28/23 21:15 Dose: Not Given Clozapine (Clozapine 100 Mg Tablet) 100 mg PO BID [facility] Last Admin: 05/29/23 08:17 Dose: 100 mg Cyanocobalamin (Cyanocobalamin (Vitamin B-12) 100 Mcg Tablet) 100 mcg PO DAILY [facility] Last Admin: 05/29/23 08:17 Dose: 100 mcg Divalproex Sodium (Divalproex Sodium 250 Mg Tablet.) 250 mg PO BID [facility] Last Admin: 05/29/23 08:17 Dose: 250 mg Divalproex Sodium (Divalproex Sodium 500 Mg Tablet.) 500 mg PO BID [facility] Last Admin: 05/29/23 08:17 Dose: 500 mg Enoxaparin Sodium (Enoxaparin Sodium 40 Mg/0.4 Ml Syringe) 40 mg SUBCUT Q24H [facility] Last Admin: 05/28/23 21:13 Dose: Not Given Glucose (Glucose Gel 15 Gm Gel..Gram.) 15 gm PO Q15M PRN; Protocol PRN Reason: per Hypoglycemia Standing Ord. Dextrose (D10) 250 mls @ 750 mls/hr IV Q15M PRN; Protocol PRN Reason: per Hypoglycemia Standing Ord. Furosemide 200 mg/ Sodium (Chloride) 100 mls @ 5 mls/hr IVCONT .Q20H [facility] Last Admin: 05/29/23 11:35 Dose: 10 mg/hr, 5 mls/hr Cefepime HCl 2 gm/ Sodium (Chloride) 50 mls @ 100 mls/hr IV Q8H [facility] Last Infusion: 05/29/23 12:48 Dose: Infused Vancomycin HCl 1,500 mg/ (Sodium Chloride) 500 mls @ 333.333 mls/hr IV Q12H [facility] Last Admin: 05/29/23 12:41 Dose: 333.33 mls/hr Insulin Human Lispro (Insulin Lispro 100 Unit/Ml 3 Ml Vial) 0 unit SUBCUT QIDACHS [facility]; Protocol Last Admin: 05/29/23 11:41 Dose: 2 unit Lorazepam (Lorazepam 1 Mg Tablet) 1 mg PO Q4H PRN PRN Reason: becca Lorazepam (Lorazepam 1 Mg Tablet) 1 mg PO BEDTIME [facility] Last Admin: 05/28/23 20:58 Dose: 1 mg Magnesium Oxide (Magnesium Oxide 400 Mg Tablet) 400 mg PO DAILY [facility] Last Admin: 05/29/23 08:17 Dose: 400 mg Melatonin (Melatonin 3 Mg Tablet) 6 mg PO BEDTIME PRN PRN Reason: Insomnia Metoprolol Succinate (Metoprolol Succinate Er 25 Mg Tab.Er.24h) 25 mg PO DAILY [facility]; Protocol Last Admin: 05/29/23 08:16 Dose: 25 mg Ondansetron HCl (Ondansetron Hcl 4 Mg/2 Ml Vial) 4 mg IVPUSH Q8H PRN PRN Reason: Nausea and Vomiting Ondansetron HCl (Ondansetron Odt 4 Mg Tab.Rapdis) 4 mg TRANSLINGU Q6H PRN PRN Reason: Nausea Pharmacy Consult (Consult Rx Vancomycin Dosing) 1 each MISCELLANE DAILY PRN PRN Reason: Consult order Quetiapine Fumarate (Quetiapine Fumarate 50 Mg Tablet) 50 mg PO BID PRN PRN Reason: becca, agitation Quetiapine Fumarate (Quetiapine Fumarate 400 Mg Tablet) 400 mg PO BEDTIME [facility] Last Admin: 05/28/23 20:55 Dose: 400 mg Sodium Chloride (0.9 % Sodium Chloride Flush 3 Ml Syringe) 3 ml IVFLUSH QSHIFT [facility] Last Admin: 05/29/23 08:17 Dose: Not Given Thyroid (Thyroid,Pork 30 Mg Tablet) 120 mg PO DAILY@0630 [facility] Last Admin: 05/29/23 06:24 Dose: 120 mg Vitamin D (Cholecalciferol (Vitamin D3) 10 Mcg Tablet) 10 mcg PO DAILY [facility] Last Admin: 05/29/23 08:17 Dose: 10 mcg Home Medications ?Medication ?Instructions ?Recorded ?Confirmed ?Last Taken ?Type acetaminophen 325 mg tablet 650 mg PO Q6H PRN Pain 05/27/23 05/27/23 Unknown History atorvastatin 40 mg tablet 40 mg PO BEDTIME 05/27/23 05/27/23 Unknown History clozapine 100 mg tablet 100 mg PO BID 05/27/23 05/27/23 Unknown History clozapine 50 mg tablet 50 mg PO BEDTIME 05/27/23 05/27/23 Unknown History divalproex 250 mg tablet,delayed 250 mg PO BID 05/27/23 05/27/23 Unknown History release (Depakote) divalproex 500 mg tablet,delayed 500 mg PO BID 05/27/23 05/27/23 Unknown History release (Depakote) lorazepam 1 mg tablet 1 mg PO Q4H PRN becca 05/27/23 05/27/23 Unknown History magnesium hydroxide 400 mg/5 mL 30 ml PO BEDTIME PRN Constipation 05/27/23 05/27/23 Unknown History oral suspension (Milk of Magnesia) melatonin 3 mg tablet 9 mg PO BEDTIME PRN Insomnia 05/27/23 05/27/23 Unknown History thyroid (pork) 120 mg tablet (FENCE [employer] 120 mg PO DAILY@0630 05/27/23 05/27/23 Unknown History Thyroid) Physical Exam Vital Signs: Vital Signs: Last Vital Signs Temp 99.0 F 05/29/23 11:20 Pulse 111 H 05/29/23 11:20 Resp 20 05/29/23 11:20 BP 102/60 05/29/23 11:35 Pulse Ox 88 L 05/29/23 11:20 O2 Del Method High Flow Nasal C annula 05/29/23 11:20 O2 Flow Rate 50 05/29/23 11:20 FiO2 88 05/29/23 11:20 Oxygen Flow Rate 15 05/29/23 06:00 BMI result Body Mass Index 37.7 Const: General: no acute distress and alert Nutritional Appearance: obese Orientation/consciousness: Other orientation findings ( oriented) HEENT: Head: Yes atraumatic Eyes: General: appearance normal, both eyes and all related structures Sclerae: sclerae normal EOM: EOMs intact bilaterally Neck: Neck: Yes supple Lymphatic: no lymphadenopathy noted Resp: Effort & Inspection: normal respiratory effort and no use of accessory muscles Auscultation: clear to auscultation bilaterally Cardio: Rate: regular rate Rhythm: regular rhythm Heart sounds: no gallops, no murmurs and no rubs Skin: General skin exam: other ( warm) Extrem: General: No clubbing, No cyanosis and Yes edema (2+ bilateral) Results Laboratory Findings 05/29/23 06:33 05/29/23 06:33 ABG, PT/INR, D-dimer: PT/INR, D-dimer PT 14.1 SEC (11.1-13.3) H 05/27/23 13:55 INR 1.2 (0.9-1.1) H 05/27/23 13:55 Abnormal lab findings: Abnormal Labs 05/27/23 05/27/23 05/27/23 13:55 15:46 20:41 WBC 11.0 H RBC 4.19 L Hgb Hct Plt Count 157 L Immature Gran % (Auto) 1.4 H Neut % (Auto) 86.1 H Lymph % (Auto) 7.7 L Lymph # (Auto) 0.9 L Abs Immat Gran (auto) 0.15 H Absolute Neuts (auto) 9.5 H Absolute Nucleated RBC 0.020 H Band Neutrophils % Lymphocytes % (Manual) Lymphocytes # (Manual) PT 14.1 H INR 1.2 H ABG pO2 at Pt Temp ABG HCO3 Potassium 2.8 L* D Anion Gap 11 L BUN 21 H POC Glucose 122 H Random Glucose 122 H Lactic Acid 2.3 H* Calcium 7.5 L D Magnesium 1.5 L AST 46 H ALT B-Natriuretic Peptide Total Protein 5.6 L Albumin 3.1 L 25-OH Vitamin D Total Ur Specific [place] Urine Protein Urine Blood Ur Leukocyte Esterase Urine RBC Urine WBC 05/28/23 05/28/23 05/28/23 03:43 06:09 07:13 WBC RBC Hgb Hct Plt Count Immature Gran % (Auto) Neut % (Auto) Lymph % (Auto) Lymph # (Auto) Abs Immat Gran (auto) Absolute Neuts (auto) Absolute Nucleated RBC Band Neutrophils % Lymphocytes % (Manual) Lymphocytes # (Manual) PT INR ABG pO2 at Pt Temp ABG HCO3 Potassium Anion Gap 11 L BUN POC Glucose 116 H Random Glucose 120 H Lactic Acid Calcium 7.2 L Magnesium AST 103 H ALT 59 H B-Natriuretic Peptide Total Protein 5.4 L Albumin 3.2 L 25-OH Vitamin D Total Ur Specific [place] >= 1.030 H Urine Protein 30 (1+) H Urine Blood Moderate (2+) H Ur Leukocyte Esterase Moderate (2+) H Urine RBC >20 H Urine WBC 6-10 H 05/28/23 05/28/23 05/28/23 12:03 14:49 16:11 WBC RBC Hgb Hct Plt Count Immature Gran % (Auto) Neut % (Auto) Lymph % (Auto) Lymph # (Auto) Abs Immat Gran (auto) Absolute Neuts (auto) Absolute Nucleated RBC Band Neutrophils % Lymphocytes % (Manual) Lymphocytes # (Manual) PT INR ABG pO2 at Pt Temp ABG HCO3 Potassium Anion Gap BUN POC Glucose 152 H 213 H Random Glucose Lactic Acid Calcium 7.1 L Magnesium AST ALT B-Natriuretic Peptide Total Protein Albumin 25-OH Vitamin D Total 24.3 L Ur Specific [place] Urine Protein Urine Blood Ur Leukocyte Esterase Urine RBC Urine WBC 05/28/23 05/29/23 05/29/23 19:26 04:19 04:31 WBC RBC 3.46 L Hgb 10.8 L Hct 32.0 L Plt Count 87 L D Immature Gran % (Auto) Neut % (Auto) Lymph % (Auto) Lymph # (Auto) Abs Immat Gran (auto) Absolute Neuts (auto) Absolute Nucleated RBC Band Neutrophils % 41 H Lymphocytes % (Manual) 11 L Lymphocytes # (Manual) 0.7 L PT INR ABG pO2 at Pt Temp ABG HCO3 Potassium Anion Gap 11 L BUN POC Glucose 128 H 123 H Random Glucose 125 H Lactic Acid Calcium 7.3 L Magnesium AST 166 H ALT 101 H B-Natriuretic Peptide 241 H Total Protein 5.5 L Albumin 3.2 L 25-OH Vitamin D Total Ur Specific [place] Urine Protein Urine Blood Ur Leukocyte Esterase Urine RBC Urine WBC 05/29/23 05/29/23 05/29/23 04:39 06:33 07:37 WBC RBC 3.49 L Hgb 10.8 L Hct 32.7 L Plt Count 94 L Immature Gran % (Auto) 0.9 H Neut % (Auto) 79.0 H Lymph % (Auto) 13.2 L Lymph # (Auto) 1.0 L Abs Immat Gran (auto) 0.07 H Absolute Neuts (auto) Absolute Nucleated RBC Band Neutrophils % Lymphocytes % (Manual) Lymphocytes # (Manual) PT INR ABG pO2 at Pt Temp 58 L ABG HCO3 Potassium Anion Gap BUN POC Glucose 156 H Random Glucose 166 H Lactic Acid Calcium 7.3 L Magnesium AST 168 H ALT 103 H B-Natriuretic Peptide 184 H Total Protein 5.6 L Albumin 3.2 L 25-OH Vitamin D Total Ur Specific [place] Urine Protein Urine Blood Ur Leukocyte Esterase Urine RBC Urine WBC 05/29/23 05/29/23 11:06 11:49 WBC RBC Hgb Hct Plt Count Immature Gran % (Auto) Neut % (Auto) Lymph % (Auto) Lymph # (Auto) Abs Immat Gran (auto) Absolute Neuts (auto) Absolute Nucleated RBC Band Neutrophils % Lymphocytes % (Manual) Lymphocytes # (Manual) PT INR ABG pO2 at Pt Temp 58 L ABG HCO3 28 H Potassium Anion Gap BUN POC Glucose 165 H Random Glucose Lactic Acid Calcium Magnesium AST ALT B-Natriuretic Peptide Total Protein Albumin 25-OH Vitamin D Total Ur Specific [place] Urine Protein Urine Blood Ur Leukocyte Esterase Urine RBC Urine WBC Microbiology: Microbiology 05/27/23 13:55 Blood - Venous Blood Culture - Final Coag negative Staphylococcus 05/28/23 Unknown Urine clean catch - Urine chandler top Urine Culture - Final 05/27/23 13:59 Blood - Venous Blood Culture - Preliminary No growth after 24 hours. Assessment and Plan (1) Acute respiratory failure with hypoxia: Status: Acute (2) Acute pulmonary edema: Status: Acute Plan Impression: 62-year-old lady admitted with diarrhea multiple electrolyte abnormalities requiring multiple IV replacements with development of acute hypoxic respiratory failure with pulmonary edema. Cardiac workup with 2D echocardiogram is pending. BNP is mildly elevated. Possible etiologies include cardiogenic versus noncardiogenic pulmonary edema. Recommendations: Rule out pulmonary embolism with D-dimer. If positive, consider CT angio chest poor if unable, then at least lower extremity Doppler study. Consider rechecking troponin level. Agree with diuretic drip. Procedures Date of Service Date of Service: 05/29/23
--- NOTE | 2023-05-29 14:30 | PC.RT ---
pt placed on cpap due to hypoxia and needing diuresis secondary pulm edema. Pt sats coming off HFNC on 100% with a NRB dropped quickly to 70% . Pt recovered well with Cpap and 02 titrated down to 80%. Pt seems more comfortable on this than HFNC and NRB. Pt kiki well. Doppler study ordered for lower extremities to r/o PE.
[2023-05-29 14:35] LABS: Troponin-I High Sensitivity 134.1 ng/L (<3.5-17.0)
--- NOTE | 2023-05-29 14:35 | P.PNCC_ITS ---
Critical Care Event Note Summary Date of Service: 05/29/23 Code activated: No Narrative: Patient evaluated for level of care secondary to hypoxia on maximum high-flow therapy. Patient has been started on diuretic drip and Recio catheter placed with immediate drainage of 900 cc of urine and additional diuresis of 1.5 L over the last few hours. Respiratory status is stable on CPAP 10 cm of water at 80% FiO2. Patient is awake and alert, appears comfortable, though a little bit anxious. Systolic blood pressure in 120s with pulse in 110's. Would recommend obtaining lower extremity Doppler. Likely etiology of underlying hypoxia include cardiac versus noncardiac p ulmonary edema and an aspiration component overnight. At this time patient does not require intensive care level of monitoring. Please notify for re-evaluation if patient's condition changes. Critical Care Time (minutes): 0
[2023-05-29 16:32] LABS: Glucose, Whole Blood 158 mg/dL (60-115)
--- NOTE | 2023-05-29 17:26 | PC.NURSE ---
Patient refused ammonia and trop sensitivity lab draws. MD Bailey aware.
--- NOTE | 2023-05-29 17:45 | PM.PSYCN ---
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 (Vitamin D3) 10 Mcg Tablet) 10 mcg PO DAILY [facility] Last Admin: 05/29/23 08:17 Dose: 10 mcg Allergies Allergies Allergy/AdvReac Type Severity Reaction Status Date / Time amoxicillin Allergy Unknown Unknown Uncoded 05/27/23 14:06 Pt states no food allergy Allergy Unknown Unknown Uncoded 05/27/23 14:06 Assessment & Plan Assessment & Plan (1) Schizoaffective disorder, bipolar type: Status: Acute Code(s): F25.0 - Schizoaffective disorder, bipolar type Plan Ms. Townsend is a 62 year-old woman with hx of schizoaffective disorder who has had prolonged period of exacerbation of her psychiatric symptoms including paranoid delusions, hyperverbal, disorganized and impulsive behaviors. She was initially admitted to for over a month and transfered laterally per HCP request to another in psych unit at [place]. While here she was discharged on carbamazepine, seroquel, and depakote. At [place] [facility]- pt started on clozaril, prolixin, she was also continued on seroquel. Her depakote was increased and it appears that psychiatrically despite several psychotropic medications she continues floridly psychotic. initially concern with diarrhea without evidence of other etiology consideration that clozaril can cause clozaril induced colitis with or without eosinophils, although in her case abdominal CT was not suggestive of colitis. Also, keep in mind exacerbation of cardiomyopathy also with clozaril. PLAN 1. will decrease psychotropic medication to avoid oversedation, cumulative effects of anticholinergic side effects as she is medically unwell. Also, concern that despite multiple psychotropic medications, she is progressively getting worse psychiatrically also. - check ammonia - hold depakote- which could contribute to thrombocytopenia. - hold clozaril - continue carbamazepine- check level. Total time managing care of this patient today ____ minutes.
--- NOTE | 2023-05-29 18:37 | PC.NURSE ---
Throughout shift patient started to decompensate while on high flow, RT and MD called to bedside each time. RT titrated and MD placed imaging and lab orders. Patient continued to decompensate, requiring CPAP to be placed by RT. Additional labs ordered by MD. Phlebotomy came to bedside and patient requesting to wait until tomorrow. MD aware and came to bedside. Successful law draw. Patient refused repeat trops and ammonia lab draw. MD made aware.
[2023-05-29 21:01] LABS: Glucose, Whole Blood 150 mg/dL (60-115)
[2023-05-29] MEDS: Enoxaparin Sodium 40 MG/0.4 ML SYRINGE SUBCUT (22:09)
[2023-05-29 23:00] LABS: ABG Refer to POC result
[2023-05-29] MEDS: Haloperidol Lactate 5 MG/ML VIAL IM (23:23)
[2023-05-29] MEDS: Ziprasidone Mesylate 20 MG VIAL IM (23:38)
[2023-05-29] MEDS: diphenhydrAMINE HCL 50 MG/ML VIAL IVPUSH (23:40)
[2023-05-30] VITALS (35 sets, daily range): BP systolic 79–131; BP diastolic 45–78; PULSE 86–134; RESP 21–37; TEMP 35–38.7; O2SAT 83–99
--- NOTE | 2023-05-30 | PC.NURSE ---
Upon initial assessment at 1900- pt A&Ox4, rambling/disorganized speech, requiring frequent redirection, 1:[address] for safety[address] Able to follow simple commands. HERNANDEZ. Lungs diminished with coarse crackles throughout. Pt on CPAP 10/80%, SpO2 > 88% with continuous oximetry in place- pt denies any SOB or pain. Lasix gtt infusing per APR. Recio in place. Sinus tach on tele, HR 100-120s. BLE non-pitting edema. RT at bedside- trialed pt on HFNC with NRB in order to give scheduled PO meds. Pt did not tolerate- desaturated to 70-80s, placed back on CPAP by RT. MD Purvis notified. Demanding PO fluids despite low SpO2- ReddyPort attachment applied to CPAP mask to provide mouth care and improve pt comfort. At approx 2330- pt restless, agitated, pulled off CPAP mask and refusing to wear it, unable to redirect while desaturating to 70-80s- FAMILY AND CONSUMER SCIENCE PROFESSOR called. Haldol 5 mg IM, Geodon 20 mg IM and Benadryl 50 mg IVP given as ordered with good effect, pt now calm. CPAP placed on pt, SpO2 > 88%. Report oncoming RN.
[2023-05-30] MEDS: vancomycin HCL 1,500 MG in 0.9 % Sodium Chloride 500 ML 333.33 MG IV (00:42)
[2023-05-30] MEDS: 0.9 % Sodium Chloride Flush 3 ML SYRINGE IVFLUSH ×3 (00:54→15:24)
[2023-05-30] MEDS: cefEPime HCl 2 GM in 0.9 % Sodium Chloride 50 ML IV (03:14)
[2023-05-30 04:45] LABS: ABG Base Excess 11.7 mmol/L; ABG HCO3 36 mmol/L (22-26); ABG pCO2 46 mmHg (32-45); ABG pO2 62 mmHg (83-108)
--- NOTE | 2023-05-30 05:27 | PC.NURSE ---
Received patient on shift, received doses of Haldol, Benadryl and Geodon, patient is utilizing 100% O2 viaface mask on CPAP. Slept intermittently, alert and oriented x 4. 0338 patient desats 86-88, respiratory therapist contacted, agriculture extension specialist provider Terra Pacheco notified. Patient seen, had ABG sample taken by respiratory therapist, portable CXR, new 20G MICHAEL placed to left wrist. ICU contacted,accepted patient, nurse to nurse report given to ALFREDO Gallagher.
--- NOTE | 2023-05-30 05:33 | PM.EVENT ---
Documented by User: Nyla Sloan NP 05/30/23 05:43 Event Note Date of Service: 05/30/23 Event Note: Patient evaluated for worsening hypoxia and need for transfer to ICU.?? O2 sat down to 86-88 on CPAP 14 cm of water at 100% FiO2. Patient is awake, cooperative, talking but not making sense. Systolic blood pressure 130s with HR 110s.? She is on a lasix drip with urine output approx 100 cc/hr. VBG and CXR ordered. Hypoxia possibly due to aspiration after sedation. Transfer to ICU for closer monitoring. Time Spent With Patient Time: Total time managing care of this patient today ____ minutes. Documented by User: Diego Alcazar MD 05/30/23 09:52 Event Note Date of Service: 05/30/23 Event Note: Patient evaluated for worsening hypoxia and need for transfer to ICU.?? O2 sat down to 86-88 on CPAP 14 cm of water at 100% FiO2, sometimes pulling her CPAP off. Patient is awake, cooperative, talking but not making sense. Systolic blood pressure 130s with HR 110s.? She is on a lasix drip with urine output approx 100 cc/hr. VBG and CXR ordered. Hypoxia possibly due to aspiration after sedation. Transfer to ICU for closer monitoring.
[2023-05-30 05:55] LABS: ABG Refer to POC result
[2023-05-30 06:15] LABS: Glucose, Whole Blood 155 mg/dL (60-115)
[2023-05-30] MEDS: levoFLOXacin/D5W 750 MG/150 ML PIGGYBACK 100 MG IV (06:18)
[2023-05-30] MEDS: Furosemide 200 MG in 0.9 % Sodium Chloride 80 ML IVCONT (06:20)
[2023-05-30 06:54] LABS: MANUAL DIFF FLAG NO
[2023-05-30 07:00] LABS: Basophils Absolute Auto 0.1 X10*3/uL (0.0-0.2); Basophils Percent Auto 0.6 % (0-2); Eosinophils Percent Auto 0.3 % (0-4); Hematocrit 36.9 % (37.0-47.0); Hemoglobin 12.6 g/dl (12.0-16.0); Imm Gran Abs Auto 0.14 X10*3/uL (0.00-0.03); Imm Gran Pct Auto 1.2 % (0.0-0.4); Lymphocytes Percent Auto 8.1 % (20-40); Mean Corpuscular HGB Conc 34.1 g/dl (31.0-35.0); Mean Corpuscular Hemoglobin 31.1 pg (27.0-33.0); Mean Corpuscular Volume 91.1 fL (80.0-98.0); Mean Platelet Volume 11.3 fL (9.4-12.3); Monocytes Absolute Auto 0.6 X10*3/uL (0.1-1.2); Monocytes Percent Auto 5.1 % (2-11); Neutrophils Absolute Auto 9.9 x10*3/uL (2.0-8.3); Neutrophils Percent Auto 84.7 % (45-73); Platelet Count 113 X10*3/uL (160-400); Red Blood Count 4.05 X10*6/uL (4.20-5.50); Red Cell Distribution Width 13.3 % (11.0-16.0); White Blood Count 11.7 X10*3/uL (4.8-10.8)
[2023-05-30 07:04] LABS: Ammonia 39 umol/L (13-55)
[2023-05-30 07:08] LABS: Lactic Acid 1.7 mmol/L (0.5-2.0)
[2023-05-30 07:32] LABS: Alanine Aminotransferase 109 U/L (0-31); Albumin Level 3.5 g/dL (3.5-5.0); Alkaline Phosphatase 85 U/L (39-117); Anion Gap 14 (12-20); Aspartate Amino Transferase 145 U/L (5-31); Bilirubin Total 0.6 mg/dL (0.0-1.0); Blood Urea Nitrogen 16 mg/dL (9-16); Calcium 7.8 mg/dL (8.4-10.2); Carbon Dioxide 35 mmol/L (22-29); Chloride 94 mmol/L (96-108); Creatinine Clr Calc Pharmacy 90.4; Estimated Glomerular Filt Rate > 60; Glucose Random 146 mg/dL (60-115); Potassium 2.4 mmol/L (3.3-5.1); Sodium 141 mmol/L (135-145); Total Protein 6.4 g/dL (6.5-8.0)
[2023-05-30 07:33] LABS: Troponin-I High Sensitivity 468.6 ng/L (<3.5-17.0)
[2023-05-30 07:45] LABS: Valproate 45.5 mcg/mL (50.0-100.0)
[2023-05-30 07:46] LABS: Carbamazepine Tegretol 9.6 mcg/mL (5.0-12.0)
[2023-05-30] MEDS: acetaZOLAMIDE sodium 500 MG VIAL 375 MG IVPUSH ×2 (08:02→21:12)
[2023-05-30] MEDS: Potassium Chloride/H20 10 MEQ/100 ML PIGGYBACK 100 MEQ IV ×4 (08:04→11:49)
[2023-05-30 09:45] LABS: B Type Natriuretic Peptide 160 pg/mL (<100)
--- NOTE | 2023-05-30 09:52 | P.PNCC_ITS ---
Subjective Subjective Date of Service: 05/30/23 Interval History: 62-year-old lady with underlying hypertension, diabetes mellitus, RANJANA, PTSD, bipolar disorder admitted on 05/27/2023 with watery day with multiple electrolyte abnormalities. Patient was treated with empiric ceftriaxone and electrolyte replacement. Overnight on 05/28/2023 she developed acute hypoxia with chest x- ray showing pulmonary edema requiring maximum high-flow nasal cannula support. She was tried on CPAP 10 80% with improvement in her oxygenation and also started on diuretic drip, now negative approximately 6 L. Overnight flow [id number] patient with worsening hypoxia secondary to pollen her CPAP off and also possible aspiration component transferred to intensive care unit for close monitoring. This a.m. at approximately 10:00 patient with significant agitation pulling off high-flow nasal cannula and not letting it to be replaced desaturating below 70% requiring emergent intubation. Upon intubation large secretion burden visualized around epiglottis. Overnight events as above. Critical Care Time (minutes): 90 Physical Exam 2 Vital Signs: Vital Signs: Last Vital Signs Temp 98.5 F 05/30/23 08:30 Pulse 120 H 05/30/23 09:00 Resp 32 H 05/30/23 09:00 BP 115/66 05/30/23 09:00 Pulse Ox 89 L 05/30/23 09:00 O2 Del Method High Flow Nasal C annula, Non-Rebrea ther Mask 05/30/23 09:00 O2 Flow Rate 60 05/30/23 09:00 FiO2 100 05/30/23 09:00 Oxygen Flow Rate 15 05/29/23 06:00 BMI result Body Mass Index 37.7 Const: General: no acute distress and other (Sedated on the vent) N utritional Appearance: obese Eyes: Sclerae: sclerae normal EOM: EOMs intact bilaterally Neck: Neck: Yes no lymphadenopathy, Yes trachea midline and Yes supple Resp: Auscultation: crackles (Bilateral) Cardio: Rate: tachycardic Rhythm: regular rhythm Heart sounds: no gallops, no murmurs and no rubs GI: Palpation (GI): Soft to palpation and Other GI palpation findings present ( Nontender) Auscultation: normal bowel sounds Extrem: General: No clubbing, No cyanosis and Yes edema (1+ bilateral) Objective Data Labs 05/30/23 06:43 04/20/24 06:43 Labs: Laboratory Results - last 24 hr 05/29/23 05/29/23 05/29/23 04:31 09:00 11:06 WBC RBC Hgb Hct MCV MCH MCHC RDW Plt Count MPV Immature Gran % (Auto) Neut % (Auto) Lymph % (Auto) [place] % (Auto) Eos % (Auto) Baso % (Auto) Lymph # (Auto) [place] # (Auto) Eos # (Auto) Baso # (Auto) Abs Immat Gran (auto) Absolute Neuts (auto) Absolute Nucleated RBC Nucleated RBC % (auto) D-Dimer High Sensitivty O2 Saturation ABG pH at Pt Temp ABG pCO2 at Pt Temp ABG pO2 at Pt Temp ABG HCO3 ABG Base Excess (Actual) Sodium Potassium Chloride Carbon Dioxide Anion Gap BUN Creatinine Estim Creat Clear Calc Estimated GFR POC Glucose 165 H Random Glucose Lactic Acid Calcium Total Bilirubin AST ALT Alkaline Phosphatase Ammonia Troponin I High Sens B-Natriuretic Peptide Total Protein Albumin Procalcitonin 0.90 Valproic Acid Carbamazepine Respiratory Panel Ashley See Note Adenovirus (Rapid PCR) Not Detected B.pert (TEM-PCR) Not Detected B.parapertussis DNA PCR Not Detected C. pneumoniae DNA (PCR) Not Detected Coronavirus OC43 (PCR) Not Detected Coronavirus HKU1 (PCR) Not Detected Coronavirus 229E (PCR) Not Detected Coronavirus NL63 (PCR) Not Detected Human Metapneumovir PCR Not Detected Influenza A (RT-PCR) Not Detected Influenza B (RT-PCR) Not Detected M. pneumoniae (PCR) Not Detected Parainfluenza 1 (PCR) Not Detected Parainfluenza 2 (PCR) Not Detected Parainfluenza 3 (PCR) Not Detected Parainfluenza 4 (PCR) Not Detected RSV (PCR) Not Detected Entero/Rhino (PCR) Not Detected SARS-CoV-2 RNA (RT-PCR) Not Detected 05/29/23 05/29/23 05/29/23 11:40 11:49 13:55 WBC RBC Hgb Hct MCV MCH MCHC RDW Plt Count MPV Immature Gran % (Auto) Neut % (Auto) Lymph % (Auto) [place] % (Auto) Eos % (Auto) Baso % (Auto) Lymph # (Auto) [place] # (Auto) Eos # (Auto) Baso # (Auto) Abs Immat Gran (auto) Absolute Neuts (auto) Absolute Nucleated RBC Nucleated RBC % (auto) D-Dimer High Sensitivty 2947 O2 Saturation 90.0 ABG pH at Pt Temp 7.45 ABG pCO2 at Pt Temp 40 ABG pO2 at Pt Temp 58 L ABG HCO3 28 H ABG Base Excess (Actual) 4.3 Sodium Potassium Chloride Carbon Dioxide Anion Gap BUN Creatinine Estim Creat Clear Calc Estimated GFR POC Glucose Random Glucose Lactic Acid Calcium Total Bilirubin AST ALT Alkaline Phosphatase Ammonia Troponin I High Sens 134.1 H* D B-Natriuretic Peptide Total Protein Albumin Procalcitonin Valproic Acid Carbamazepine Respiratory Panel Ashley Adenovirus (Rapid PCR) B.pert (TEM-PCR) B.parapertussis DNA PCR C. pneumoniae DNA (PCR) Coronavirus OC43 (PCR) Coronavirus HKU1 (PCR) Coronavirus 229E (PCR) Coronavirus NL63 (PCR) Human Metapneumovir PCR Influenza A (RT-PCR) Influenza B (RT-PCR) M. pneumoniae (PCR) Parainfluenza 1 (PCR) Parainfluenza 2 (PCR) Parainfluenza 3 (PCR) Parainfluenza 4 (PCR) RSV (PCR) Entero/Rhino (PCR) SARS-CoV-2 RNA (RT-PCR) 05/29/23 05/29/23 05/30/23 16:17 20:57 04:36 WBC RBC Hgb Hct MCV MCH MCHC RDW Plt Count MPV Immature Gran % (Auto) Neut % (Auto) Lymph % (Auto) [place] % (Auto) Eos % (Auto) Baso % (Auto) Lymph # (Auto) [place] # (Auto) Eos # (Auto) Baso # (Auto) Abs Immat Gran (auto) Absolute Neuts (auto) Absolute Nucleated RBC Nucleated RBC % (auto) D-Dimer High Sensitivty O2 Saturation 90.0 ABG pH at Pt Temp 7.50 H ABG pCO2 at Pt Temp 46 H ABG pO2 at Pt Temp 62 L ABG HCO3 36 H ABG Base Excess (Actual) 11.7 Sodium Potassium Chloride Carbon Dioxide Anion Gap BUN Creatinine Estim Creat Clear Calc Estimated GFR POC Glucose 158 H 150 H Random Glucose Lactic Acid Calcium Total Bilirubin AST ALT Alkaline Phosphatase Ammonia Troponin I High Sens B-Natriuretic Peptide Total Protein Albumin Procalcitonin Valproic Acid Carbamazepine Respiratory Panel Ashley Adenovirus (Rapid PCR) B.pert (TEM-PCR) B.parapertussis DNA PCR C. pneumoniae DNA (PCR) Coronavirus OC43 (PCR) Coronavirus HKU1 (PCR) Coronavirus 229E (PCR) Coronavirus NL63 (PCR) Human Metapneumovir PCR Influenza A (RT-PCR) Influenza B (RT-PCR) M. pneumoniae (PCR) Parainfluenza 1 (PCR) Parainfluenza 2 (PCR) Parainfluenza 3 (PCR) Parainfluenza 4 (PCR) RSV (PCR) Entero/Rhino (PCR) SARS-CoV-2 RNA (RT-PCR) 05/30/23 05/30/23 06:11 06:43 WBC 11.7 H RBC 4.05 L Hgb 12.6 Hct 36.9 L MCV 91.1 MCH 31.1 MCHC 34.1 RDW 13.3 Plt Count 113 L MPV 11.3 Immature Gran % (Auto) 1.2 H Neut % (Auto) 84.7 H Lymph % (Auto) 8.1 L [place] % (Auto) 5.1 Eos % (Auto) 0.3 Baso % (Auto) 0.6 Lymph # (Auto) 1.0 L [place] # (Auto) 0.6 Eos # (Auto) 0.0 Baso # (Auto) 0.1 Abs Immat Gran (auto) 0.14 H Absolute Neuts (auto) 9.9 H Absolute Nucleated RBC 0.000 Nucleated RBC % (auto) 0.0 D-Dimer High Sensitivty O2 Saturation ABG pH at Pt Temp ABG pCO2 at Pt Temp ABG pO2 at Pt Temp ABG HCO3 ABG Base Excess (Actual) Sodium 141 Potassium 2.4 L* D Chloride 94 L Carbon Dioxide 35 H Anion Gap 14 BUN 16 Creatinine 0.80 Estim Creat Clear Calc 90.4 Estimated GFR > 60 POC Glucose 155 H Random Glucose 146 H Lactic Acid 1.7 Calcium 7.8 L D Total Bilirubin 0.6 AST 145 H ALT 109 H Alkaline Phosphatase 85 Ammonia 39 Troponin I High Sens 468.6 H* D B-Natriuretic Peptide 160 H Total Protein 6.4 L Albumin 3.5 Procalcitonin Valproic Acid 45.5 L Carbamazepine 9.6 Respiratory Panel Ashley Adenovirus (Rapid PCR) B.pert (TEM-PCR) B.parapertussis DNA PCR C. pneumoniae DNA (PCR) Coronavirus OC43 (PCR) Coronavirus HKU1 (PCR) Coronavirus 229E (PCR) Coronavirus NL63 (PCR) Human Metapneumovir PCR Influenza A (RT-PCR) Influenza B (RT-PCR) M. pneumoniae (PCR) Parainfluenza 1 (PCR) Parainfluenza 2 (PCR) Parainfluenza 3 (PCR) Parainfluenza 4 (PCR) RSV (PCR) Entero/Rhino (PCR) SARS-CoV-2 RNA (RT-PCR) Microbiology Microbiology Results: Microbiology 05/27/23 13:59 Blood - Venous Blood Culture - Preliminary No growth after 48 hours. 05/27/23 13:55 Blood - Venous Blood Culture - Final Coag negative Staphylococcus 05/28/23 Unknown Urine clean catch - Urine chandler top Urine Culture - Final Progress Note: A&P Assessment and plan (1) Acute pulmonary edema: Status: Acute (2) Acute respiratory failure with hypoxia: Status: Acute (3) Acute congestive heart failure: Status: Acute (4) Pulmonary aspiration: Status: Acute (5) Schizoaffective disorder, bipolar type: Status: Acute (6) Type II diabetes mellitus: Status: Acute Plan Assessment: 62-year-old lady underlying bipolar/schizoaffective admitted with diarrheal illness requiring large volume electrolyte replacement with development of pulmonary edema and pulmonary aspiration requiring high-flow nasal cannula support, then transitioned to CPAP, however unable to tolerate it eventually requiring intubation and ventilatory support. Plan: Neuro: No acute issues. Cardiac: Acute on chronic systolic congestive failure with pulmonary edema improving with diuresis. Pulmonary: Acute hypoxic respiratory failure appears to be combination of pulmonary aspiration and pulmonary edema now requiring ventilatory support. Continue to titrate off as tolerated. Renal: No acute issues. Endo: No acute issues. GI: No acute issues. ID: Empirically covered for pulmonary aspiration. Heme/Onc: No acute issues. Psych: Underlying bipolar/schizoaffective with significant agitation component thus poor compliance with supplemental oxygen necessitating intubation. Miscellaneous: No acute issues. Prophylaxis: Lovenox, famotidine Diet: Tube feeds Critical care time spent: 90 minutes Quality Stroke Does the patient have a stroke diagnosis?: No VTE Prior VTE?: No VTE Risk Level:: Medical - moderate - high VTE Device Contraindication: Treatment Not Indicated VTE Drug Contraindication: N/A - Med Ordered
[2023-05-30] MEDS: propofoL 1,000 MG/100 ML VIAL 19.66 MG IVCONT (10:10)
[2023-05-30] MEDS: Cisatracurium Besylate 20 MG/10 ML VIAL 10 MG IVPUSH (10:20)
[2023-05-30] MEDS: propofoL 200 MG/20 ML VIAL 150 MG IVPUSH (10:20)
[2023-05-30] MEDS: methylPREDNISolone Sod Succ 40 MG/ML VIAL IVPUSH (10:51)
[2023-05-30] MEDS: Norepinephrine Bitartrate/D5W 8 MG/250 ML PLAST..BAG 10.24 MG IV (11:08)
[2023-05-30 11:12] LABS: Glucose, Whole Blood 158 mg/dL (60-115)
--- NOTE | 2023-05-30 11:14 | W.PM.CCHP ---
Procedures Date of Service Date of Service: 05/30/23 Intubation Intubation Comments: Patient pulling off her high-flow nasal cannula and resistant to putting it back on, desaturating down to 70% on becoming cyanotic, emergently intubated with 7.5 cuffed ET tube under glide scope guidance with no immediate complications. ET tube position verified on x-ray. Consent for Procedure: Emergent-no informed consent obtained
[2023-05-30] MEDS: lamoTRIgine 100 MG TABLET PO ×2 (11:18→21:11)
[2023-05-30] MEDS: Potassium Chloride Packet 20 MEQ PACKET 60 MEQ PO (11:18)
[2023-05-30] MEDS: Insulin Lispro 100 UNIT/ML 3 ML VIAL SUBCUT ×2 (11:18→18:13)
[2023-05-30] MEDS: Midazolam HCl/PF 2 MG/2 ML VIAL IVPUSH (11:20)
[2023-05-30 11:58] LABS: Troponin-I High Sensitivity 496.3 ng/L (<3.5-17.0)
[2023-05-30] MEDS: propofoL 1,000 MG/100 ML VIAL 32.76 MG IVCONT ×5 (12:27→23:30)
[2023-05-30 12:29] LABS: Glucose, Whole Blood 175 mg/dL (60-115)
[2023-05-30] MEDS: fentaNYL citrate/PF 100 MCG/2 ML VIAL IVPUSH (12:58)
[2023-05-30 14:32] LABS: Anion Gap 15 (12-20); Blood Urea Nitrogen 22 mg/dL (9-16); Calcium 7.8 mg/dL (8.4-10.2); Carbon Dioxide 31 mmol/L (22-29); Chloride 97 mmol/L (96-108); Creatinine Clr Calc Pharmacy 76.2; Estimated Glomerular Filt Rate 59; Glucose Random 182 mg/dL (60-115); Sodium 139 mmol/L (135-145)
[2023-05-30] MEDS: Chlorhexidine Gluc Oral Rinse 15 ML MOUTHWASH BUCCAL ×2 (15:24→21:11)
--- NOTE | 2023-05-30 16:31 | HE.PHANOTE ---
RE NIMBEX RN UNABLE TO PULL NIMBEX. USED 10 MG, WASTED REMAINDER OF 200 MG VIAL APPROPRIATELY
[2023-05-30 18:01] LABS: Glucose, Whole Blood 215 mg/dL (60-115)
--- NOTE | 2023-05-30 18:01 | PC.NURSE ---
Assumed care of patient 0700 Pt intermittently trying to remove CPAP 14, 100%. Pt has 1:1 sitter 08:30 Pt removed CPAP, refusing to put back on. Pt placed on 15L partial NRB. RN called RT to bedside. SaO2 79%. Md notified. Per MD, RT placed patient on HFNC 100% 55L + 15L NRB. 10:00 Pt pulled HFNC off. Pt is agitated, appears cyanotic, SaO2 77%. MD states plan is for emergent intubation. 10:05 150 mg IVP propofol given in increments to attain RASS -3 10:10 Pt intubated ET tube 7.5 27@ lip. Propofol gtt started @30. 10:15 OG tube placed 10:20 Pt has vent dysynchrony. Pt is abdominal breathing. Per MD gave 10 mg IVP Nimbex once with positive effect. 10:22 CXR obtained. Per MD, RT changed tube placement to 25@ lip. 11:08 Pt blood pressures decreased with MAP<65. MD notified. Levophed gtt started @0.05 per protocol. 12:58 Patient has vent dysynchrony and abdominal breathing. 100 mg IVP fentanyl given per MD with positive effect. Pt provided bed bath, repositioned Q2H, high fall precautions in place.
[2023-05-30] MEDS: Norepinephrine Bitartrate/D5W 8 MG/250 ML PLAST..BAG 30.71 MG IV (19:37)
[2023-05-30] MEDS: Enoxaparin Sodium 40 MG/0.4 ML SYRINGE SUBCUT (21:11)
[2023-05-30 23:52] LABS: Glucose, Whole Blood 257 mg/dL (60-115)
[2023-05-31] VITALS (42 sets, daily range): BP systolic 86–120; BP diastolic 43–61; PULSE 72–98; RESP 16–33; TEMP 34.9–38.6; O2SAT 87–100
[2023-05-31] MEDS: Insulin Lispro 100 UNIT/ML 3 ML VIAL SUBCUT ×5 (00:15→23:59)
[2023-05-31] MEDS: 0.9 % Sodium Chloride Flush 3 ML SYRINGE IVFLUSH ×3 (00:16→15:24)
[2023-05-31] MEDS: propofoL 1,000 MG/100 ML VIAL 32.76 MG IVCONT ×6 (02:13→23:15)
[2023-05-31] MEDS: Norepinephrine Bitartrate/D5W 8 MG/250 ML PLAST..BAG 30.71 MG IV (02:49)
[2023-05-31 05:10] LABS: VBG HCO3 34 mmol/L (22-26); VBG pCO2 42 mmHg; VBG pO2 70 mmHg
[2023-05-31 05:16] LABS: MANUAL DIFF FLAG NO
[2023-05-31 05:18] LABS: Basophils Absolute Auto 0.1 X10*3/uL (0.0-0.2); Basophils Percent Auto 0.7 % (0-2); Eosinophils Percent Auto 0.2 % (0-4); Hematocrit 34.7 % (37.0-47.0); Hemoglobin 11.8 g/dl (12.0-16.0); Imm Gran Abs Auto 0.21 X10*3/uL (0.00-0.03); Imm Gran Pct Auto 1.4 % (0.0-0.4); Lymphocytes Absolute Auto 1.3 X10*3/uL (1.2-4.9); Lymphocytes Percent Auto 8.7 % (20-40); Mean Corpuscular Hemoglobin 31.2 pg (27.0-33.0); Mean Corpuscular Volume 91.8 fL (80.0-98.0); Mean Platelet Volume 12.5 fL (9.4-12.3); Monocytes Absolute Auto 0.7 X10*3/uL (0.1-1.2); Monocytes Percent Auto 4.8 % (2-11); NRBC Pct Auto 0.2 /100WBC (0.0-0.2); Neutrophils Absolute Auto 12.6 x10*3/uL (2.0-8.3); Neutrophils Percent Auto 84.2 % (45-73); Platelet Count 116 X10*3/uL (160-400); Red Blood Count 3.78 X10*6/uL (4.20-5.50); Red Cell Distribution Width 13.5 % (11.0-16.0); White Blood Count 14.9 X10*3/uL (4.8-10.8)
[2023-05-31] MEDS: Acetaminophen 325 MG TABLET 975 MG PO ×2 (05:22→14:28)
[2023-05-31] MEDS: levoFLOXacin/D5W 750 MG/150 ML PIGGYBACK 100 MG IV (05:22)
[2023-05-31] MEDS: Thyroid,Pork 30 MG TABLET 120 MG PO (05:30)
[2023-05-31 05:34] LABS: Venous Blood Gas Refer to POC result
[2023-05-31 05:36] LABS: Alanine Aminotransferase 137 U/L (0-31); Albumin Level 3.2 g/dL (3.5-5.0); Alkaline Phosphatase 101 U/L (39-117); Anion Gap 15 (12-20); Aspartate Amino Transferase 189 U/L (5-31); Bilirubin Total 0.8 mg/dL (0.0-1.0); Blood Urea Nitrogen 25 mg/dL (9-16); Calcium 8.3 mg/dL (8.4-10.2); Carbon Dioxide 30 mmol/L (22-29); Chloride 95 mmol/L (96-108); Creatinine Clr Calc Pharmacy 76.9; Estimated Glomerular Filt Rate 60; Glucose Random 247 mg/dL (60-115); Magnesium 2.5 mg/dL (1.6-2.6); Phosphorus 1.7 mg/dL (2.7-4.5); Potassium 2.9 mmol/L (3.3-5.1); Sodium 137 mmol/L (135-145); Total Protein 6.2 g/dL (6.5-8.0)
[2023-05-31] MEDS: Potassium Chloride Packet 20 MEQ PACKET 40 MEQ PO (06:22)
[2023-05-31] MEDS: Potassium Phosphate/NS 15 MMOL/250 ML PLAST..BAG 62.5 MMOL IV ×2 (06:22→11:03)
[2023-05-31] MEDS: propofoL 1,000 MG/100 ML VIAL 19.66 MG IVCONT (07:48)
[2023-05-31] MEDS: acetaZOLAMIDE sodium 500 MG VIAL 375 MG IVPUSH ×2 (08:01→20:13)
[2023-05-31] MEDS: Famotidine/PF 20 MG/2 ML VIAL IVPUSH (08:02)
[2023-05-31] MEDS: Chlorhexidine Gluc Oral Rinse 15 ML MOUTHWASH BUCCAL ×3 (08:02→20:13)
[2023-05-31] MEDS: lamoTRIgine 100 MG TABLET PO ×2 (08:02→20:13)
[2023-05-31] MEDS: Cyanocobalamin (Vitamin B-12) 100 MCG TABLET PO (08:02)
[2023-05-31] MEDS: methylPREDNISolone Sod Succ 40 MG/ML VIAL IVPUSH (08:53)
[2023-05-31] MEDS: Norepinephrine Bitartrate/D5W 8 MG/250 ML PLAST..BAG 43 MG IV (09:40)
--- NOTE | 2023-05-31 10:31 | PM.CCPN ---
Subjective Subjective Date of Service: 05/31/23 Interval History: 62-year-old lady with underlying hypertension, diabetes mellitus, RANJANA, PTSD, bipolar disorder admitted on 05/27/2023 with watery day with multiple electrolyte abnormalities. Patient was treated with empiric ceftriaxone and electrolyte replacement. Overnight on 05/28/2023 she developed acute hypoxia with chest x-ray showing pulmonary edema requiring maximum high-flow nasal cannula support. She was tried on CPAP 10 80% with improvement in her oxygenation and also started on diuretic drip, now negative approximately 6 L. Overnight on 05/29/2023 patient with worsening hypoxia secondary to pulling n her CPAP off and also possible aspiration component transferred to intensive care unit for close monitoring. On 05/30/2023 at approximately 10:00 a.m. patient with significant agitation pulling off high-flow nasal cannula and not letting it to be replaced desaturating below 70% requiring emergent intubation. Upon intubation large secretion burden visualized around epiglottis. No events overnight. FiO2 requirements are improving. Critical Care Time (minutes): 60 Physical Exam Vital Signs: Vital Signs: Last Vital Signs Temp 100.9 F H 05/31/23 10:00 Pulse 98 05/31/23 10:00 Resp 29 H 05/31/23 10:00 BP 110/60 05/31/23 10:00 Pulse Ox 87 L 05/31/23 10:00 O2 Del Method Mechanical Ventil ation 05/31/23 10:00 O2 Flow Rate 60 05/30/23 09:00 FiO2 60 05/31/23 10:00 Oxygen Flow Rate 15 05/29/23 06:00 BMI result Body Mass Index 37.7 Const: General: no acute distress and other (Sedated on the vent) Nutritional Appearance: obese Eyes: Sclerae: sclerae normal EOM: EOMs intact bilaterally Neck: Neck: Yes no lymphadenopathy, Yes trachea midline and Yes supple Resp: Auscultation: crackles (Bilateral) Cardio: Rate: regular rate Rhythm: regular rhythm Heart sounds: no gallops, no murmurs and no rubs GI: Palpation (GI): Soft to palpation and Other GI palpation findings present ( Nontender) Auscultation: normal bowel sounds Extrem: General: No clubbing, No cyanosis and Yes edema (1+ bilateral) Objective Data Labs 05/31/23 05:02 05/31/23 05:02 Labs: Laboratory Results - last 24 hr 05/30/23 05/30/23 05/30/23 06:43 11:08 12:23 WBC RBC Hgb Hct MCV MCH MCHC RDW Plt Count MPV Immature Gran % (Auto) Neut % (Auto) Lymph % (Auto) [place] % (Auto) Eos % (Auto) Baso % (Auto) Lymph # (Auto) [place] # (Auto) Eos # (Auto) Baso # (Auto) Abs Immat Gran (auto) Absolute Neuts (auto) Absolute Nucleated RBC Nucleated RBC % (auto) VBG pH VBG pCO2 VBG pO2 VBG HCO3 VBG O2 Saturation VBG Base Excess Sodium Potassium Chloride Carbon Dioxide Anion Gap BUN Creatinine Estim Creat Clear Calc Estimated GFR POC Glucose 158 H 175 H Random Glucose Calcium Phosphorus Magnesium Total Bilirubin AST ALT Alkaline Phosphatase Troponin I High Sens 496.3 H* Total Protein Albumin 05/30/23 05/30/23 05/30/23 13:47 17:52 23:44 WBC RBC Hgb Hct MCV MCH MCHC RDW Plt Count MPV Immature Gran % (Auto) Neut % (Auto) Lymph % (Auto) [place] % (Auto) Eos % (Auto) Baso % (Auto) Lymph # (Auto) [place] # (Auto) Eos # (Auto) Baso # (Auto) Abs Immat Gran (auto) Absolute Neuts (auto) Absolute Nucleated RBC Nucleated RBC % (auto) VBG pH VBG pCO2 VBG pO2 VBG HCO3 VBG O2 Saturation VBG Base Excess Sodium 139 Potassium 4.0 D Chloride 97 Carbon Dioxide 31 H Anion Gap 15 BUN 22 H Creatinine 0.95 Estim Creat Clear Calc 76.2 Estimated GFR 59 POC Glucose 215 H 257 H Random Glucose 182 H Calcium 7.8 L Phosphorus Magnesium Total Bilirubin AST ALT Alkaline Phosphatase Troponin I High Sens Total Protein Albumin 05/31/23 05:02 WBC 14.9 H RBC 3.78 L Hgb 11.8 L Hct 34.7 L MCV 91.8 MCH 31.2 MCHC 34.0 RDW 13.5 Plt Count 116 L MPV 12.5 H Immature Gran % (Auto) 1.4 H Neut % (Auto) 84.2 H Lymph % (Auto) 8.7 L [place] % (Auto) 4.8 Eos % (Auto) 0.2 Baso % (Auto) 0.7 Lymph # (Auto) 1.3 [place] # (Auto) 0.7 Eos # (Auto) 0.0 Baso # (Auto) 0.1 Abs Immat Gran (auto) 0.21 H Absolute Neuts (auto) 12.6 H Absolute Nucleated RBC 0.030 H Nucleated RBC % (auto) 0.2 VBG pH 7.50 H VBG pCO2 42 VBG pO2 70 VBG HCO3 34 H VBG O2 Saturation 94.0 VBG Base Excess 10.0 Sodium 137 Potassium 2.9 L* D Chloride 95 L Carbon Dioxide 30 H Anion Gap 15 BUN 25 H Creatinine 0.94 Estim Creat Clear Calc 76.9 Estimated GFR 60 POC Glucose Random Glucose 247 H Calcium 8.3 L D Phosphorus 1.7 L Magnesium 2.5 Total Bilirubin 0.8 AST 189 H ALT 137 H Alkaline Phosphatase 101 Troponin I High Sens Total Protein 6.2 L Albumin 3.2 L Microbiology Microbiology Results: Microbiology 05/29/23 11:55 Blood - Venous Blood Culture - Preliminary No growth after 24 hours. 05/29/23 11:40 Blood - Venous Blood Culture - Preliminary No growth after 24 hours. 05/27/23 13:59 Blood - Venous Blood Culture - Preliminary No growth after 48 hours. 05/27/23 13:55 Blood - Venous Blood Culture - Final Coag negative Staphylococcus 05/28/23 Unknown Urine clean catch - Urine chandler top Urine Culture - Final Progress Note: A&P Assessment and plan (1) Pulmonary aspiration: Status: Acute (2) Acute pulmonary edema: Status: Acute (3) Acute respiratory failure with hypoxia: Status: Acute (4) Type II diabetes mellitus: Status: Acute (5) Schizoaffective disorder, bipolar type: Status: Acute Plan Assessment: 62-year-old lady underlying bipolar/schizoaffective admitted with diarrheal illness requiring large volume electrolyte replacement with development of pulmonary edema and pulmonary aspiration requiring high-flow nasal cannula support, then transitioned to CPAP, however unable to tolerate it eventually requiring intubation and ventilatory support. Plan: Neuro: No acute issues. Cardiac: Acute on chronic systolic congestive failure with pulmonary edema improving with diuresis. Pulmonary: Acute hypoxic respiratory failure appears to be combination of pulmonary aspiration and pulmonary edema now requiring ventilatory support. Continue to titrate off as tolerated. Renal: No acute issues. Endo: No acute issues. GI: No acute issues. ID: Empirically covered for pulmonary aspiration. Heme/Onc: No acute issues. Psych: Underlying bipolar/schizoaffective with significant agitation component thus poor compliance with supplemental oxygen necessitating intubation. Now on Lamictal. Miscellaneous: No acute issues. Prophylaxis: Lovenox, famotidine Diet: Tube feeds Critical care time spent: 60 minutes Quality Stroke Does the patient have a stroke diagnosis?: No VTE Prior VTE?: No VTE Risk Level:: Medical - moderate - high VTE Device Contraindication: Treatment Not Indicated VTE Drug Contraindication: N/A - Med Ordered
[2023-05-31 11:21] LABS: Glucose, Whole Blood 193 mg/dL (60-115)
[2023-05-31] MEDS: propofoL 1,000 MG/100 ML VIAL 26.21 MG IVCONT (12:01)
[2023-05-31 15:03] LABS: Anion Gap 14 (12-20); Blood Urea Nitrogen 21 mg/dL (9-16); Calcium 8.3 mg/dL (8.4-10.2); Carbon Dioxide 29 mmol/L (22-29); Chloride 95 mmol/L (96-108); Creatinine Clr Calc Pharmacy 84.1; Estimated Glomerular Filt Rate > 60; Glucose Random 228 mg/dL (60-115); Potassium 3.4 mmol/L (3.3-5.1); Sodium 135 mmol/L (135-145)
[2023-05-31] MEDS: Midazolam HCl/PF 2 MG/2 ML VIAL IVPUSH (15:22)
[2023-05-31] MEDS: Norepinephrine Bitartrate/D5W 8 MG/250 ML PLAST..BAG 34.81 MG IV (16:18)
--- NOTE | 2023-05-31 16:47 | PC.NURSE ---
Unable to flush OGT and thus it was removed. NGT #16 FR placed without difficulty. PCXR done as ordered to confirm placement which showed good placement with the tip of the OGT terminating in the stomach. xray sent to Dr Alcazar who confirmed proper placement.
[2023-05-31 17:29] LABS: Glucose, Whole Blood 220 mg/dL (60-115)
[2023-05-31] MEDS: Furosemide 40 MG/4 ML VIAL IVPUSH (20:13)
[2023-05-31] MEDS: Enoxaparin Sodium 40 MG/0.4 ML SYRINGE SUBCUT (20:13)
[2023-05-31] MEDS: Norepinephrine Bitartrate/D5W 8 MG/250 ML PLAST..BAG 26.62 MG IV (23:16)
[2023-05-31 23:58] LABS: Glucose, Whole Blood 216 mg/dL (60-115)
[2023-06-01] VITALS (38 sets, daily range): BP systolic 92–134; BP diastolic 42–59; PULSE 70–84; RESP 21–31; TEMP 34.6–38.3; O2SAT 88–97; BMI 37.7
[2023-06-01] MEDS: propofoL 1,000 MG/100 ML VIAL 32.76 MG IVCONT ×8 (01:58→23:14)
[2023-06-01] MEDS: Acetaminophen 325 MG TABLET 975 MG PO (02:33)
[2023-06-01] MEDS: levoFLOXacin/D5W 750 MG/150 ML PIGGYBACK 100 MG IV (04:46)
[2023-06-01 05:14] LABS: Venous Blood Gas Refer to POC result
[2023-06-01 05:18] LABS: VBG Base Excess 11.1 mmol/L; VBG HCO3 35 mmol/L (22-26); VBG pCO2 46 mmHg; VBG pH 7.49 (7.32-7.43); VBG pO2 81 mmHg
[2023-06-01 05:42] LABS: Hematocrit 33.7 % (37.0-47.0); Hemoglobin 11.4 g/dl (12.0-16.0); Mean Corpuscular HGB Conc 33.8 g/dl (31.0-35.0); Mean Corpuscular Hemoglobin 31.1 pg (27.0-33.0); Mean Corpuscular Volume 91.8 fL (80.0-98.0); Mean Platelet Volume 12.1 fL (9.4-12.3); NRBC Pct Auto 0.7 /100WBC (0.0-0.2); Platelet Count 142 X10*3/uL (160-400); Red Blood Count 3.67 X10*6/uL (4.20-5.50); Red Cell Distribution Width 13.6 % (11.0-16.0); White Blood Count 13.6 X10*3/uL (4.8-10.8)
[2023-06-01 05:58] LABS: Anion Gap 14 (12-20); Blood Urea Nitrogen 23 mg/dL (9-16); Calcium 8.5 mg/dL (8.4-10.2); Carbon Dioxide 31 mmol/L (22-29); Chloride 94 mmol/L (96-108); Creatinine Clr Calc Pharmacy 95.2; Estimated Glomerular Filt Rate > 60; Glucose Random 231 mg/dL (60-115); Magnesium 2.6 mg/dL (1.6-2.6); Phosphorus 2.2 mg/dL (2.7-4.5); Potassium 2.9 mmol/L (3.3-5.1); Sodium 136 mmol/L (135-145)
[2023-06-01 06:13] LABS: Band Neutrophils Percent 12 % (3-5); Eosinophils Absolute Manual 0.1 X10*3/uL (0.0-0.4); Eosinophils Percent Manual 1 % (0-4); Lymphocytes Absolute Manual 1.6 X10*3/uL (1.2-4.9); Lymphocytes Percent Manual 12 % (20-40); Metamyelocytes Absolute 0.5 X10*3/uL; Metamyelocytes Percent 4 %; Monocytes Percent Manual 7 % (2-11); Myelocytes Absolute 0.1 X10*/uL; Myelocytes Percent 1 %; Neutrophils Absolute Manual 10.1 X10*3/uL (2.0-8.3); Neutrophils Percent Manual 62 % (45-73); Platelet Estimate NORMAL (NORMAL); Promyelocytes Absolute 0.1 X10*3/uL; Promyelocytes Percent 1 %; RBC Morphology NORMAL
[2023-06-01 06:13] LABS: Glucose, Whole Blood 237 mg/dL (60-115)
[2023-06-01 06:14] LABS: Acanthocytes 2+ (3-5) /OIF; Large Platelet PRESENT; Platelet Morphology Comment NOTED; Spherocytes 2+ (3-5) /OIF; Tear Drop Cells 1+ (0-2) /OIF
[2023-06-01 06:15] LABS: Basophilic Stippling 1+ (0-2) /OIF; Toxic Granulation PRESENT; Toxic Vacuolation PRESENT
[2023-06-01] MEDS: Insulin Lispro 100 UNIT/ML 3 ML VIAL SUBCUT ×3 (06:16→17:13)
[2023-06-01] MEDS: Potassium Phosphate/NS 15 MMOL/250 ML PLAST..BAG 62.5 MMOL IV ×3 (06:18→23:16)
[2023-06-01] MEDS: Norepinephrine Bitartrate/D5W 8 MG/250 ML PLAST..BAG 30.71 MG IV ×2 (06:21→14:09)
[2023-06-01] MEDS: Potassium Chloride Packet 20 MEQ PACKET 40 MEQ PO (06:23)
[2023-06-01] MEDS: Thyroid,Pork 30 MG TABLET 120 MG PO (06:23)
[2023-06-01] MEDS: 0.9 % Sodium Chloride Flush 3 ML SYRINGE IVFLUSH ×2 (07:15→23:21)
[2023-06-01] MEDS: methylPREDNISolone Sod Succ 40 MG/ML VIAL IVPUSH (09:19)
[2023-06-01] MEDS: lamoTRIgine 100 MG TABLET PO ×2 (09:19→20:23)
[2023-06-01] MEDS: Aspirin Enteric Coated 81 MG TABLET.DR PO (09:19)
[2023-06-01] MEDS: Cyanocobalamin (Vitamin B-12) 100 MCG TABLET PO (09:19)
[2023-06-01] MEDS: Furosemide 40 MG/4 ML VIAL IVPUSH (09:19)
[2023-06-01] MEDS: Chlorhexidine Gluc Oral Rinse 15 ML MOUTHWASH BUCCAL ×3 (09:20→20:23)
[2023-06-01] MEDS: Famotidine/PF 20 MG/2 ML VIAL IVPUSH (09:20)
[2023-06-01] MEDS: acetaZOLAMIDE sodium 500 MG VIAL 375 MG IVPUSH ×2 (09:20→20:23)
--- NOTE | 2023-06-01 09:56 | MHC.CM.PN ---
Pt remains in ICU on ventilatory support: HCP in chart: goals of care today are for a reduction in sedation with extubation attempt. Pt will need to be seen by psych once medically cleared as she may need to continue her pre acute care psych needs ( pt had been at [facility] but was interested in [facility] in psych) CM to follow
--- NOTE | 2023-06-01 10:35 | MHC.CLN ---
PT IS INTUBATED AND SEDATED PT WITH NGT IN PLACE WITH GLUCERNA AT MAX GOAL RATE 40ML/HR PROVIDING 960KCALS (1479KCALS WITH SEDATION; 24KCALS/KG BASED ON IBW), 40G PROTEIN, 819ML FREE WATER FROM FORMULA PT TOLERATING TF WELL PER NSG WITH LOW RESIDUALS RECOMMEND ADDING 30ML PROSOURCE BID WITH 240ML FREE WATER FLUSHES Q 6 HR TO PROVIDE 1599 TOTAL KCALS (26KCALS/KG), 70G TOTAL PROTEIN (1.1G/KG), 1779ML TOTAL WATER FROM FORMULA AND FLUSHES (29ML/KG) MONITOR TOLERANCE, RESIDUALS AND LYTES SEE ALSO FULL CLINICAL NUTRITION ASSESSMENT
[2023-06-01 11:33] LABS: Glucose, Whole Blood 263 mg/dL (60-115)
--- NOTE | 2023-06-01 13:37 | P.PNCC_ITS ---
Subjective Subjective Date of Service: 06/01/23 Interval History: 62-year-old lady with underlying hypertension, diabetes mellitus, RANJANA, PTSD, bipolar disorder admitted on 05/27/2023 with watery day with multiple electrolyte abnormalities. Patient was treated with empiric ceftriaxone and electrolyte replacement. Overnight on 05/28/2023 she developed acute hypoxia with chest x- ray showing pulmonary edema requiring maximum high-flow nasal cannula support. She was tried on CPAP 10 80% with improvement in her oxygenation and also started on diuretic drip, now negative approximately 6 L. Overnight on 05/29/2023 patient with worsening hypoxia secondary to pulling n her CPAP off and also possible aspiration component transferred to intensive care unit for close monitoring. On 05/30/2023 at approximately 10:00 a.m. patient with significant agitation pulling off high-flow nasal cannula and not letting it to be replaced desaturating below 70% requiring emergent intubation. Upon intubation large secretion burden visualized around epiglottis. No events overnight. FiO2 requirements continue to improve. Tolerating pressure support trials. Critical Care Time (minutes): 60 Physical Exam 2 Vital Signs: Vital Signs: Last Vital Signs Temp 100.8 F H 06/01/23 13:00 Pulse 81 06/01/23 13:00 Resp 27 H 06/01/23 13:00 BP 121/51 L 06/01/23 13:00 Pulse Ox 91 L 06/01/23 13:00 O2 Del Method Mechanical Ventil ation 06/01/23 13:00 O2 Flow Rate 60 05/30/23 09:00 FiO2 50 06/01/23 13:00 Oxygen Flow Rate 15 05/29/23 06:00 BMI result Body Mass Index 37.7 Const: General: no acute distress and other (Sedated on the vent) N utritional Appearance: obese Eyes: Sclerae: sclerae normal EOM: EOMs intact bilaterally Neck: Neck: Yes no lymphadenopathy, Yes trachea midline and Yes supple Resp: Effort & Inspection: normal respiratory effort and no respiratory distress Auscultation: clear to auscultation bilaterally Cardio: Rate: regular rate Rhythm: regular rhythm Heart sounds: no gallops, no murmurs and no rubs GI: Palpation (GI): Soft to palpation and Other GI palpation findings present ( Nontender) Auscultation: normal bowel sounds Extrem: General: Yes no pedal edema, No clubbing and No cyanosis Objective Data Labs 06/01/23 05:08 06/01/23 05:08 Labs: Laboratory Results - last 24 hr 05/31/23 05/31/23 05/31/23 14:04 17:26 23:46 WBC RBC Hgb Hct MCV MCH MCHC RDW Plt Count MPV Immature Gran % (Auto) Neut % (Auto) Lymph % (Auto) [place] % (Auto) Eos % (Auto) Baso % (Auto) Lymph # (Auto) [place] # (Auto) Eos # (Auto) Baso # (Auto) Abs Immat Gran (auto) Absolute Neuts (auto) Absolute Nucleated RBC Nucleated RBC % (auto) Neutrophils % (Manual) Band Neutrophils % Lymphocytes % (Manual) Monocytes % (Manual) Eosinophils % (Manual) Metamyelocytes % Myelocytes % Promyelocytes % Abs Neuts (Manual) Lymphocytes # (Manual) Monocytes # (Manual) Eosinophils # (Manual) Metamyelocytes # Myelocytes # Promyelocytes # Toxic Granulation Toxic Vacuolation Platelet Estimate Large Platelets Plt Morphology Comment RBC Morphology Basophilic Stippling Spherocytes Tear Drop Cells Acanthocytes (Spur) VBG pH VBG pCO2 VBG pO2 VBG HCO3 VBG O2 Saturation VBG Base Excess Sodium 135 Potassium 3.4 Chloride 95 L Carbon Dioxide 29 Anion Gap 14 BUN 21 H Creatinine 0.86 Estim Creat Clear Calc 84.1 Estimated GFR > 60 POC Glucose 220 H 216 H Random Glucose 228 H Calcium 8.3 L Phosphorus Magnesium Albumin 06/01/23 06/01/23 06/01/23 05:08 05:09 06:09 WBC 13.6 H RBC 3.67 L Hgb 11.4 L Hct 33.7 L MCV 91.8 MCH 31.1 MCHC 33.8 RDW 13.6 Plt Count 142 L MPV 12.1 Immature Gran % (Auto) Cancelled Neut % (Auto) Cancelled Lymph % (Auto) Cancelled [place] % (Auto) Cancelled Eos % (Auto) Cancelled Baso % (Auto) Cancelled Lymph # (Auto) Cancelled [place] # (Auto) Cancelled Eos # (Auto) Cancelled Baso # (Auto) Cancelled Abs Immat Gran (auto) Cancelled Absolute Neuts (auto) Cancelled Absolute Nucleated RBC 0.090 H Nucleated RBC % (auto) 0.7 H Neutrophils % (Manual) 62 Band Neutrophils % 12 H Lymphocytes % (Manual) 12 L Monocytes % (Manual) 7 Eosinophils % (Manual) 1 Metamyelocytes % 4 Myelocytes % 1 Promyelocytes % 1 Abs Neuts (Manual) 10.1 H Lymphocytes # (Manual) 1.6 Monocytes # (Manual) 1.0 Eosinophils # (Manual) 0.1 Metamyelocytes # 0.5 Myelocytes # 0.1 Promyelocytes # 0.1 Toxic Granulation PRESENT Toxic Vacuolation PRESENT Platelet Estimate NORMAL Large Platelets PRESENT Plt Morphology Comment NOTED RBC Morphology NORMAL Basophilic Stippling 1+ (0-2) Spherocytes 2+ (3-5) Tear Drop Cells 1+ (0-2) Acanthocytes (Spur) 2+ (3-5) VBG pH 7.49 H VBG pCO2 46 VBG pO2 81 VBG HCO3 35 H VBG O2 Saturation 99.0 VBG Base Excess 11.1 Sodium 136 Potassium 2.9 L* Chloride 94 L Carbon Dioxide 31 H Anion Gap 14 BUN 23 H Creatinine 0.76 Estim Creat Clear Calc 95.2 Estimated GFR > 60 POC Glucose 237 H Random Glucose 231 H Calcium 8.5 Phosphorus 2.2 L Magnesium 2.6 Albumin 3.0 L 06/01/23 11:16 WBC RBC Hgb Hct MCV MCH MCHC RDW Plt Count MPV Immature Gran % (Auto) Neut % (Auto) Lymph % (Auto) [place] % (Auto) Eos % (Auto) Baso % (Auto) Lymph # (Auto) [place] # (Auto) Eos # (Auto) Baso # (Auto) Abs Immat Gran (auto) Absolute Neuts (auto) Absolute Nucleated RBC Nucleated RBC % (auto) Neutrophils % (Manual) Band Neutrophils % Lymphocytes % (Manual) Monocytes % (Manual) Eosinophils % (Manual) Metamyelocytes % Myelocytes % Promyelocytes % Abs Neuts (Manual) Lymphocytes # (Manual) Monocytes # (Manual) Eosinophils # (Manual) Metamyelocytes # Myelocytes # Promyelocytes # Toxic Granulation Toxic Vacuolation Platelet Estimate Large Platelets Plt Morphology Comment RBC Morphology Basophilic Stippling Spherocytes Tear Drop Cells Acanthocytes (Spur) VBG pH VBG pCO2 VBG pO2 VBG HCO3 VBG O2 Saturation VBG Base Excess Sodium Potassium Chloride Carbon Dioxide Anion Gap BUN Creatinine Estim Creat Clear Calc Estimated GFR POC Glucose 263 H Random Glucose Calcium Phosphorus Magnesium Albumin Microbiology Microbiology Results: Microbiology 05/31/23 00:20 Sputum - Suctioned Gram Stain - Final 05/31/23 00:20 Sputum - Suctioned Sputum Culture - Preliminary Normal so far. 05/29/23 11:40 Blood - Venous Blood Culture - Preliminary No growth after 48 hours. 05/29/23 11:55 Blood - Venous Blood Culture - Preliminary No growth after 48 hours. 05/27/23 13:59 Blood - Venous Blood Culture - Preliminary No growth after 48 hours. 05/27/23 13:55 Blood - Venous Blood Culture - Final Coag negative Staphylococcus 05/28/23 Unknown Urine clean catch - Urine chandler top Urine Culture - Final Progress Note: A&P Assessment and plan (1) Type II diabetes mellitus: Status: Acute (2) Pulmonary aspiration: Status: Acute (3) Acute pulmonary edema: Status: Acute (4) Acute respiratory failure with hypoxia: Status: Acute (5) Bipolar affective disorder, manic, severe, with psychotic behavior: Status: Acute Plan Assessment: 62-year-old lady underlying bipolar/schizoaffective admitted with diarrheal illness requiring large volume electrolyte replacement with development of pulmonary edema and pulmonary aspiration requiring high-flow nasal cannula support, then transitioned to CPAP, however unable to tolerate it eventually requiring intubation and ventilatory support. Plan: Neuro: No acute issues. Cardiac: Acute on chronic systolic congestive failure with pulmonary edema improving with diuresis. Pulmonary: Acute hypoxic respiratory failure appears to be combination of pulmonary aspiration and pulmonary edema now requiring ventilatory support, improving. Continue to titrate off as tolerated. Renal: No acute issues. Endo: No acute issues. GI: No acute issues. ID: Empirically covered for pulmonary aspiration. Heme/Onc: No acute issues. Psych: Underlying bipolar/schizoaffective, now on Lamictal. Miscellaneous: No acute issues. Prophylaxis: Lovenox, famotidine Diet: Tube feeds Critical care time spent: 60 minutes Quality Stroke Does the patient have a stroke diagnosis?: No VTE Prior VTE?: No VTE Risk Level:: Medical - moderate - high VTE Device Contraindication: Treatment Not Indicated VTE Drug Contraindication: N/A - Med Ordered
[2023-06-01 17:20] LABS: Glucose, Whole Blood 309 mg/dL (60-115)
[2023-06-01] MEDS: Enoxaparin Sodium 40 MG/0.4 ML SYRINGE SUBCUT (21:22)
[2023-06-01 21:40] LABS: Alanine Aminotransferase 301 U/L (0-31); Albumin Level 2.9 g/dL (3.5-5.0); Alkaline Phosphatase 127 U/L (39-117); Anion Gap 14 (12-20); Aspartate Amino Transferase 307 U/L (5-31); Bilirubin Total 1.2 mg/dL (0.0-1.0); Blood Urea Nitrogen 18 mg/dL (9-16); Calcium 8.6 mg/dL (8.4-10.2); Carbon Dioxide 29 mmol/L (22-29); Chloride 97 mmol/L (96-108); Creatinine Clr Calc Pharmacy 83.1; Estimated Glomerular Filt Rate > 60; Glucose Random 282 mg/dL (60-115); Magnesium 2.5 mg/dL (1.6-2.6); Phosphorus 2.4 mg/dL (2.7-4.5); Potassium 3.4 mmol/L (3.3-5.1); Sodium 137 mmol/L (135-145); Total Protein 6.3 g/dL (6.5-8.0)
[2023-06-01] MEDS: Norepinephrine Bitartrate/D5W 8 MG/250 ML PLAST..BAG 26.62 MG IV (22:56)
[2023-06-01] MEDS: Albumin Human 25 % 100 ML IV (23:19)
[2023-06-02] VITALS (41 sets, daily range): BP systolic 99–131; BP diastolic 44–59; PULSE 69–88; RESP 21–34; TEMP 34.5–38.5; O2SAT 88–97
--- NOTE | 2023-06-02 | ECG_ITS ---
Test Reason : QT interval Blood Pressure : / mmHG Vent. Rate : 080 BPM Atrial Rate : 080 BPM P-R Int : 168 ms QRS Dur : 094 ms QT Int : 372 ms P-R-T Axes : 082 090 046 degrees QTc Int : 429 ms Normal sinus rhythm Rightward axis Borderline ECG When compared with ECG of 28-MAY-2023 13:10, Vent. rate has decreased BY 53 BPM Referred By: Pedrito Wolf Electronically Signed By:CARLOS SHEN MD
[2023-06-02 00:24] LABS: Glucose, Whole Blood 237 mg/dL (60-115)
[2023-06-02] MEDS: Albumin Human 25 % 100 ML IV ×3 (00:25→02:30)
[2023-06-02] MEDS: Insulin Lispro 100 UNIT/ML 3 ML VIAL SUBCUT ×5 (00:25→23:55)
[2023-06-02] MEDS: Acetaminophen 325 MG TABLET 975 MG PO ×2 (01:14→23:18)
[2023-06-02] MEDS: propofoL 1,000 MG/100 ML VIAL 32.76 MG IVCONT ×3 (01:29→07:24)
[2023-06-02] MEDS: Potassium Phosphate/NS 15 MMOL/250 ML PLAST..BAG 62.5 MMOL IV (03:20)
[2023-06-02 05:28] LABS: VBG Base Excess 9.6 mmol/L; VBG HCO3 34 mmol/L (22-26); VBG pCO2 46 mmHg; VBG pH 7.47 (7.32-7.43); VBG pO2 56 mmHg
[2023-06-02 05:29] LABS: Venous Blood Gas Refer to POC result
[2023-06-02 05:40] LABS: Hemoglobin 9.3 g/dl (12.0-16.0); Mean Corpuscular HGB Conc 33.2 g/dl (31.0-35.0); Mean Corpuscular Hemoglobin 31.4 pg (27.0-33.0); Mean Corpuscular Volume 94.6 fL (80.0-98.0); Mean Platelet Volume 11.8 fL (9.4-12.3); NRBC Pct Auto 0.6 /100WBC (0.0-0.2); Platelet Count 171 X10*3/uL (160-400); Red Blood Count 2.96 X10*6/uL (4.20-5.50); Red Cell Distribution Width 13.9 % (11.0-16.0); White Blood Count 11.1 X10*3/uL (4.8-10.8)
[2023-06-02 05:56] LABS: Albumin Level 3.9 g/dL (3.5-5.0); Anion Gap 15 (12-20); Blood Urea Nitrogen 19 mg/dL (9-16); Carbon Dioxide 29 mmol/L (22-29); Chloride 99 mmol/L (96-108); Creatinine Clr Calc Pharmacy 87.1; Estimated Glomerular Filt Rate > 60; Glucose Random 231 mg/dL (60-115); Magnesium 2.4 mg/dL (1.6-2.6); Phosphorus 3.3 mg/dL (2.7-4.5); Potassium 3.1 mmol/L (3.3-5.1); Sodium 140 mmol/L (135-145)
[2023-06-02] MEDS: Thyroid,Pork 30 MG TABLET 120 MG PO (06:11)
[2023-06-02] MEDS: levoFLOXacin/D5W 750 MG/150 ML PIGGYBACK 100 MG IV (06:12)
[2023-06-02] MEDS: 0.9 % Sodium Chloride Flush 3 ML SYRINGE IVFLUSH ×3 (07:25→23:23)
[2023-06-02 07:32] LABS: Atypical Lymph Absolute Manual 0.1 x10*3/uL; Atypical Lymphs Percent Manual 1 % (0-6); Band Neutrophils Percent 5 % (3-5); Eosinophils Absolute Manual 0.1 X10*3/uL (0.0-0.4); Eosinophils Percent Manual 1 % (0-4); Lymphocytes Absolute Manual 1.6 X10*3/uL (1.2-4.9); Lymphocytes Percent Manual 14 % (20-40); Metamyelocytes Percent 9 %; Monocytes Absolute Manual 0.3 X10*3/uL (0.1-1.2); Monocytes Percent Manual 3 % (2-11); Myelocytes Absolute 0.2 X10*/uL; Myelocytes Percent 2 %; Neutrophils Absolute Manual 7.8 X10*3/uL (2.0-8.3); Neutrophils Percent Manual 65 % (45-73); Nucleated Red Blood Cells 3 /100WBC (0-0)
[2023-06-02 07:35] LABS: Hypochromasia 1+ (5-14) /OIF; Polychromasia 1+ (0-2) /OIF; RBC Morphology NOTED
[2023-06-02 07:36] LABS: Platelet Estimate NORMAL (NORMAL); Platelet Morphology Comment NORMAL; Toxic Vacuolation PRESENT
[2023-06-02] MEDS: lamoTRIgine 100 MG TABLET PO ×2 (07:59→20:55)
[2023-06-02] MEDS: Furosemide 40 MG/4 ML VIAL IVPUSH (07:59)
[2023-06-02] MEDS: Cyanocobalamin (Vitamin B-12) 100 MCG TABLET PO (07:59)
[2023-06-02] MEDS: Chlorhexidine Gluc Oral Rinse 15 ML MOUTHWASH BUCCAL ×3 (07:59→19:53)
[2023-06-02] MEDS: Aspirin Enteric Coated 81 MG TABLET.DR PO (07:59)
[2023-06-02] MEDS: Famotidine/PF 20 MG/2 ML VIAL IVPUSH (07:59)
[2023-06-02] MEDS: methylPREDNISolone Sod Succ 40 MG/ML VIAL IVPUSH (08:00)
[2023-06-02] MEDS: acetaZOLAMIDE sodium 500 MG VIAL 375 MG IVPUSH ×2 (08:00→21:02)
[2023-06-02] MEDS: Potassium Chloride Packet 20 MEQ PACKET 40 MEQ PO ×2 (08:00→21:02)
[2023-06-02] MEDS: Norepinephrine Bitartrate/D5W 8 MG/250 ML PLAST..BAG 14.33 MG IV (09:54)
[2023-06-02] MEDS: dexmedeTOMIDidine HCL/NS 400 MCG/100 ML INFUS..BTL 27.3 MCG IVCONT (10:16)
--- NOTE | 2023-06-02 10:47 | MHC.CLN ---
F/U PT REMAINS INTUBATED AND SEDATED PT WITH NGT IN PLACE WITH GLUCERNA AT MAX GOAL RATE 40ML/HR WITH 30ML PROSOURCE BID AND 240ML FREE WATER FLUSHES Q 6 HRS PROVIDING 1080KCALS (1945KCALS WITH SEDATION; 32KCALS/KG BASED ON IBW), 70G PROTEIN (1.1G/KG), 1779ML TOTAL FREE WATER FROM FORMULA AND FLUSHES (29ML/KG) PT TOLERATING TF WELL PER NSG WITH LOW RESIDUALS MONITOR TOLERANCE, RESIDUALS AND LYTES
[2023-06-02 11:19] LABS: Glucose, Whole Blood 284 mg/dL (60-115)
[2023-06-02] MEDS: polyethylene glycoL 3350 17 GM POWD.PACK PO ×2 (11:41→20:54)
--- NOTE | 2023-06-02 12:05 | HE.PHANOTE ---
RE CLOZARIL Provider put in order for patients clozaril at 100 mg BID. Explained to provider that because patients last dose was on 05/27 and its exceeded 48 hours, the patient must be re titrated. Suggested to start with 25 mg at bedtime today and titrate from there. Provider gave me okay to change dose to 50 mg in 2 days, however I did explain that this titration must be made by provider and that pharmacy can not titrate patients medication. I did recommend to start with 25 mg daily or 12.5 mg BID then increase daily dose based on response and tolerability in 25 mg increments at intervals >= 1 day. Documented ANC's the Clozaril REMS and obtained a new [employer].
--- NOTE | 2023-06-02 12:11 | P.PNCC_ITS ---
Subjective Subjective Date of Service: 06/02/23 Interval History: No new events overnight Continues to be on ventilator support this morning and vasopressor support Tried the patient on pressor support trials this morning, remains tachypneic. Low-grade temperatures overnight Critical Care Time (minutes): 38 Physical Exam 2 Vital Signs: Vital Signs: Last Vital Signs Temp 98.5 F 06/02/23 12:00 Pulse 78 06/02/23 12:00 Resp 34 H 06/02/23 12:00 BP 123/56 L 06/02/23 12:00 Pulse Ox 88 L 06/02/23 12:00 O2 Del Method Mechanical Ventil ation 06/02/23 12:00 O2 Flow Rate 60 05/30/23 09:00 FiO2 50 06/02/23 12:00 Oxygen Flow Rate 15 05/29/23 06:00 BMI result Body Mass Index 37.7 Const: General: confusion, ill appearing and patient obtunded; No no acute distress Nutritional Appearance: average body habitus O rientation/consciousness: confusion and patient obtunded HEENT: Head: Yes normal to inspection Ears: external ears normal and mastoids normal General nose exam: Normal external nose present and Normal nares present Eyes: General: appearance normal, both eyes and all related structures Chest: Other: Bilateral occasional crackles heard more on the left side than on the right. Bilateral air entry equal Cardio: Other: S1-S2 normal, no abnormal murmurs heard GI: Other: Soft nontender, no organomegaly, slightly distended : Other: Normal genital examination Neuro: Other: Patient is intubated and sedated, propofol tapering down currently nonresponsive to physical and verbal stimuli General: confusion and patient obtunded Objective Data Labs 06/02/23 05:23 06/02/23 05:23 Labs: Laboratory Results - last 24 hr 06/01/23 06/01/23 06/02/23 17:08 20:56 00:21 WBC RBC Hgb Hct MCV MCH MCHC RDW Plt Count MPV Immature Gran % (Auto) Neut % (Auto) Lymph % (Auto) [place] % (Auto) Eos % (Auto) Baso % (Auto) Lymph # (Auto) [place] # (Auto) Eos # (Auto) Baso # (Auto) Abs Immat Gran (auto) Absolute Neuts (auto) Absolute Nucleated RBC Nucleated RBC % (auto) Neutrophils % (Manual) Band Neutrophils % Lymphocytes % (Manual) Atypical Lymphs % (Man) Monocytes % (Manual) Eosinophils % (Manual) Metamyelocytes % Myelocytes % Abs Neuts (Manual) Lymphocytes # (Manual) Atyp Lymphs # (Manual) Monocytes # (Manual) Eosinophils # (Manual) Metamyelocytes # Myelocytes # Nucleated RBCs Toxic Vacuolation Platelet Estimate Plt Morphology Comment RBC Morphology Polychromasia Hypochromasia VBG pH VBG pCO2 VBG pO2 VBG HCO3 VBG O2 Saturation VBG Base Excess Sodium 137 Potassium 3.4 Chloride 97 Carbon Dioxide 29 Anion Gap 14 BUN 18 H Creatinine 0.87 Estim Creat Clear Calc 83.1 Estimated GFR > 60 POC Glucose 309 H 237 H Random Glucose 282 H Calcium 8.6 Phosphorus 2.4 L Magnesium 2.5 Total Bilirubin 1.2 H AST 307 H ALT 301 H Alkaline Phosphatase 127 H Total Protein 6.3 L Albumin 2.9 L 06/02/23 06/02/23 06/02/23 05:20 05:23 11:16 WBC 11.1 H RBC 2.96 L Hgb 9.3 L Hct 28.0 L MCV 94.6 MCH 31.4 MCHC 33.2 RDW 13.9 Plt Count 171 MPV 11.8 Immature Gran % (Auto) Cancelled Neut % (Auto) Cancelled Lymph % (Auto) Cancelled [place] % (Auto) Cancelled Eos % (Auto) Cancelled Baso % (Auto) Cancelled Lymph # (Auto) Cancelled [place] # (Auto) Cancelled Eos # (Auto) Cancelled Baso # (Auto) Cancelled Abs Immat Gran (auto) Cancelled Absolute Neuts (auto) Cancelled Absolute Nucleated RBC 0.070 H Nucleated RBC % (auto) 0.6 H Neutrophils % (Manual) 65 Band Neutrophils % 5 Lymphocytes % (Manual) 14 L Atypical Lymphs % (Man) 1 Monocytes % (Manual) 3 Eosinophils % (Manual) 1 Metamyelocytes % 9 Myelocytes % 2 Abs Neuts (Manual) 7.8 Lymphocytes # (Manual) 1.6 Atyp Lymphs # (Manual) 0.1 Monocytes # (Manual) 0.3 Eosinophils # (Manual) 0.1 Metamyelocytes # 1.0 Myelocytes # 0.2 Nucleated RBCs 3 H Toxic Vacuolation PRESENT Platelet Estimate NORMAL Plt Morphology Comment NORMAL RBC Morphology NOTED Polychromasia 1+ (0-2) Hypochromasia 1+ (5-14) VBG pH 7.47 H VBG pCO2 46 VBG pO2 56 VBG HCO3 34 H VBG O2 Saturation 87.0 VBG Base Excess 9.6 Sodium 140 Potassium 3.1 L Chloride 99 Carbon Dioxide 29 Anion Gap 15 BUN 19 H Creatinine 0.83 Estim Creat Clear Calc 87.1 Estimated GFR > 60 POC Glucose 284 H Random Glucose 231 H Calcium 9.0 Phosphorus 3.3 Magnesium 2.4 Total Bilirubin AST ALT Alkaline Phosphatase Total Protein Albumin 3.9 ECG Attestation: I personally reviewed and interpreted this ECG as follows: ECG interpretation date: 06/02/23 Microbiology Microbiology Results: Microbiology 05/31/23 00:20 Sputum - Suctioned Gram Stain - Final 05/31/23 00:20 Sputum - Suctioned Sputum Culture - Final 05/27/23 13:59 Blood - Venous Blood Culture - Final No growth after 5 days. 05/29/23 11:40 Blood - Venous Blood Culture - Preliminary No growth after 48 hours. 05/29/23 11:55 Blood - Venous Blood Culture - Preliminary No growth after 48 hours. 05/27/23 13:55 Blood - Venous Blood Culture - Final Coag negative Staphylococcus 05/28/23 Unknown Urine clean catch - Urine chandler top Urine Culture - Final Progress Note: A&P Assessment and plan (1) Pulmonary aspiration: Start date: 05/30/23 Status: Acute (2) Acute pulmonary edema: Start date: 05/29/23 Status: Acute (3) Acute respiratory failure with hypoxia: Status: Acute (4) Acute congestive heart failure: Status: Acute (5) Type II diabetes mellitus: Status: Acute (6) Bipolar disorder: Status: Acute Plan Ion Ambrosio is a 62-year-old lady currently very critically ill with past medical history of hypertension, diabetes, hyperlipidemia, obstructive sleep apnea and significant psychiatric history currently admitted in the ICU on ventilator support for what seems to be an aspiration pneumonia. Neuro: Currently on propofol for sedation, we will wean propofol and add Precedex to titrate off the propofol We will get CT of the brain if patient remains unresponsive off propofol We will restart home psych medications including carbamazepine 400 mg b.i.d., Depakote 500 mg b.i.d. EKG done this morning shows a QT interval of 419, will add quetiapine 200 mg Patient has been getting benzodiazepines chronically at home, we will add Xanax 0.5 b.i.d. Will restart clozapine, her home doses 100 mg b.i.d. but as she is off of clonazepam for several days we will start with 25 mg daily today and slowly uptitrate the dose every 2 days Cardiac: Is in septic shock needing Levophed for vasopressor support, titrate to keep the map above 65 mmHg TTE in 2020 was normal, we will get a repeat TTE as we had some concerns for heart failure and pulmonary edema upon admission Respiratory: Currently on PRVC mode not requiring support Change her to pressure support this morning, needing a higher pressure support tidal volumes around 300 but rates consistently about 30 not a candidate for weaning trials Ventilator management GI: Admitted with diarrhea, CT of abdomen normal upon admission Has no bowel movements for the past 5 days also, will add senna and MiraLax Renal: Good urine output, creatinine 0.8 Endocrine: Blood sugars under control Sliding scale insulin as Lines: No central lines, only Peripherals Purewick, no Recio catheter Prophylaxis: Lovenox and famotidine Quality Stroke Does the patient have a stroke diagnosis?: No VTE Prior VTE?: No VTE Risk Level:: Medical - moderate - high VTE Device Contraindication: Treatment Not Indicated VTE Drug Contraindication: N/A - Med Ordered
[2023-06-02] MEDS: dexmedeTOMIDidine HCL/NS 400 MCG/100 ML INFUS..BTL 40.95 MCG IVCONT ×6 (12:23→23:06)
[2023-06-02] MEDS: Divalproex Sodium Sprinkles 125 MG CAP.DR.SPR 500 MG PO (13:32)
--- NOTE | 2023-06-02 14:00 | CA_ITS ---
Transthoracic Echocardiogram Patient (Last, First, Middle): Daily Townsend M Gender: Female Date of : 1960 Age: 62 Procedure Date: 06/02/2023 Procedure Type: Transthoracic Echocardiogram Location: ICU Height: 170.18 cm Weight: 108.86 kg BSA: 2.18 m2 Heart Rate: 73 bpm BP: 101 / 45 mmHg Historical Records Administrator: CALEB Referring MD: Pedrito Wolf MD Supervisor Smoke Control: Austin Main MD Symptoms: pulmonary edema Study Quality: Adequate ECG Rhythm: Sinus Conclusions: - 1. Normal LV ejection fraction of 60 65% with grade 2 diastolic dysfunction 2. Normal cardiac valvular Dopplers 3. Trivial pericardial effusion Findings Left Ventricle Normal left ventricular size, thickness, and systolic function. The visually estimated ejection fraction is between 60-65%. Spectral Doppler is indicative of a pseudonormal filling pattern. E/E prime ratio is >15, consistent with elevated filling pressures. Evidence suggests grade II (moderate) diastolic dysfunction. Peak GLS is -15.1%, which is mildly reduced. Right Ventricle Normal right ventricular cavity size. There is mildly decreased right ventricular systolic function. Atria The left atrium is normal in size. Interatrial shunt cannot be excluded. The right atrium is normal in size. Aortic Valve Normal aortic valve structure and function. There is no aortic valve stenosis. There is no aortic valve regurgitation. Mitral Valve There is mild anterior and posterior mitral leaflet thickening. There is mild mitral valve regurgitation. There is no mitral valve stenosis. Pulmonic Valve The pulmonic valve is likely normal. Tricuspid Valve Likely normal tricuspid valve structure and function. Tricuspid regurgitation envelope is inadequate for calculation of right ventricular systolic pressure. Indeterminate right atrial pressure. IVC is mildly dilated without any collapse although patient has on positive pressure ventilation and therefore right atrial pressures are difficult to determine Great Vessels All visible segments of the aorta are normal in size. The pulmonary artery was not well visualized. There is no dilatation of the ascending aorta measuring 2.80 cm. Pericardium/Pleural There is a trivial circumferential pericardial effusion. Measurements 2D Linear Measurements IVSd: 0.96 0.6-0.9/0.6-1.0 cm LVIDd: 4.59 3.9-5.3/4.2-5.9 cm LVIDd Index: 2.11 2.4-3.2/2.2-3.1 cm/m2 LVIDs: 3.15 2.0-3.6 cm LVPWd: 0.93 0.7-1.1 cm LA Diam: 3.70 2.7-3.8/3.0-4.0 cm LAIDs Index: 1.70 1.5-2.3 cm/m2 LV Mass: 182.02 67-162/88-224 g LV Mass Index: 83.49 43-95/49-115 g/m2 LVOT Diam: 2.10 3.0+(-)1.3 cm 2D Systolic Function EF 4C: 56.50 >55% EF 2C: 68.30 >55% EF BiP: 61.70 >55% Mitral Valve MV Pk E: 1.24 MV PK A: 0.43 MV Decel Time: 147.00 E/A: 2.90 E'Lateral: 8.05 E'Medial: 6.42 E/E' Med: 19.30 E/E' Lat: 15.40 PHT: 43.00 MVA PHT: 5.12 Decel Taylor: 8.40 Aortic Valve AoV Pk Jose: 1.41 AoV Pk Grad: 8.00 ZITA: 2.55 LVOT LVOT Pk Jose: 1.07 LVOT Mn Jose: 0.70 LVOT VTI: 0.19 LVOT Pk Grad: 5.00 LVOT Mn Grad: 2.00 LVOT Diam: 2.10 LVOT Area: 3.46 Diastolic Function MV Pk E: 1.24 MV Pk A: 0.43 E/A: 2.90 E'Medial: 6.42 E/E' Med: 19.30 E' Laterial: 8.05 E/E' Lat: 15.40 Right Ventricle TAPSE (mm): 16.50 TVS' Jose: 12.10 Great Vessels Aorta Sinus of Valsalva: 2.80 2.0-3.5 cm Ao Asc: 2.80 2.1-3.4 cm Pulmonary Veins Pulm Vein S/D 0.80 Pulmonary Valve PV Pk Jose: 1.00 Peak PV Grad: 4.00 Updated in Other Vendor System with Status of Final Austin Main MD electronically signed on 06/02/2023 3:51:55 PM with status of Final
[2023-06-02] MEDS: ALPRAZolam 0.25 MG TABLET PO ×2 (14:44→20:55)
[2023-06-02] MEDS: Albuterol Sulfate (0.083%) 2.5 MG/3 ML VIAL.NEB INHALE (14:59)
[2023-06-02 15:10] LABS: MRSA Nasal PCR POSITIVE (Negative); SA Nasal PCR POSITIVE (Negative)
[2023-06-02 17:26] LABS: Glucose, Whole Blood 286 mg/dL (60-115)
[2023-06-02] MEDS: Midazolam HCl/PF 2 MG/2 ML VIAL IVPUSH ×2 (20:20→23:06)
[2023-06-02 20:21] LABS: Alanine Aminotransferase 307 U/L (0-31); Albumin Level 3.7 g/dL (3.5-5.0); Alkaline Phosphatase 126 U/L (39-117); Anion Gap 12 (12-20); Aspartate Amino Transferase 246 U/L (5-31); Bilirubin Total 1.2 mg/dL (0.0-1.0); Blood Urea Nitrogen 26 mg/dL (9-16); Calcium 9.1 mg/dL (8.4-10.2); Carbon Dioxide 31 mmol/L (22-29); Chloride 101 mmol/L (96-108); Creatinine Clr Calc Pharmacy 91.5; Estimated Glomerular Filt Rate > 60; Glucose Random 246 mg/dL (60-115); Potassium 3.4 mmol/L (3.3-5.1); Sodium 141 mmol/L (135-145); Total Protein 6.4 g/dL (6.5-8.0)
[2023-06-02] MEDS: QUEtiapine Fumarate 50 MG TABLET PO (20:55)
[2023-06-02] MEDS: cloZAPine 25 MG TABLET PO (20:55)
[2023-06-02] MEDS: Enoxaparin Sodium 40 MG/0.4 ML SYRINGE SUBCUT (21:02)
[2023-06-02] MEDS: Valproic Acid (as Sodium Salt) 500 MG in Dextrose 5 % 50 ML 55 MG IV (21:49)
[2023-06-02 23:54] LABS: Glucose, Whole Blood 187 mg/dL (60-115)
[2023-06-03] VITALS (36 sets, daily range): BP systolic 98–131; BP diastolic 36–59; PULSE 65–105; RESP 16–35; TEMP 34.5–39.2; O2SAT 88–98; BMI 36.5
[2023-06-03] MEDS: dexmedeTOMIDidine HCL/NS 400 MCG/100 ML INFUS..BTL 40.95 MCG IVCONT ×3 (01:09→05:55)
[2023-06-03] MEDS: Midazolam HCl/PF 2 MG/2 ML VIAL IVPUSH (04:34)
[2023-06-03] MEDS: Thyroid,Pork 30 MG TABLET 120 MG PO (05:43)
[2023-06-03] MEDS: Acetaminophen 325 MG TABLET 975 MG PO (05:43)
[2023-06-03] MEDS: levoFLOXacin/D5W 750 MG/150 ML PIGGYBACK 100 MG IV (05:52)
[2023-06-03 05:58] LABS: VBG Base Excess 2.5 mmol/L; VBG HCO3 25 mmol/L (22-26); VBG pCO2 33 mmHg; VBG pH 7.48 (7.32-7.43); VBG pO2 43 mmHg
[2023-06-03 05:58] LABS: Glucose, Whole Blood 192 mg/dL (60-115)
[2023-06-03 06:03] LABS: Clozapine (Clozaril) 869 mcg/L; Norclozapine 225 mcg/L (25-400)
[2023-06-03] MEDS: Insulin Lispro 100 UNIT/ML 3 ML VIAL SUBCUT ×3 (06:11→18:19)
[2023-06-03 06:18] LABS: Hemoglobin 10.2 g/dl (12.0-16.0); Mean Corpuscular HGB Conc 32.9 g/dl (31.0-35.0); Mean Corpuscular Hemoglobin 30.6 pg (27.0-33.0); Mean Corpuscular Volume 93.1 fL (80.0-98.0); Mean Platelet Volume 11.2 fL (9.4-12.3); NRBC Pct Auto 0.4 /100WBC (0.0-0.2); Platelet Count 239 X10*3/uL (160-400); Red Blood Count 3.33 X10*6/uL (4.20-5.50); Red Cell Distribution Width 14.3 % (11.0-16.0); White Blood Count 15.8 X10*3/uL (4.8-10.8)
[2023-06-03 06:18] LABS: Venous Blood Gas Refer to POC result
[2023-06-03 06:35] LABS: Alanine Aminotransferase 270 U/L (0-31); Albumin Level 3.4 g/dL (3.5-5.0); Alkaline Phosphatase 120 U/L (39-117); Anion Gap 13 (12-20); Aspartate Amino Transferase 172 U/L (5-31); Bilirubin Total 1.1 mg/dL (0.0-1.0); Blood Urea Nitrogen 32 mg/dL (9-16); Carbon Dioxide 26 mmol/L (22-29); Chloride 104 mmol/L (96-108); Creatinine Clr Calc Pharmacy 91.5; Estimated Glomerular Filt Rate > 60; Glucose Random 204 mg/dL (60-115); Magnesium 2.4 mg/dL (1.6-2.6); Phosphorus 2.2 mg/dL (2.7-4.5); Potassium 3.5 mmol/L (3.3-5.1); Sodium 139 mmol/L (135-145); Total Protein 6.2 g/dL (6.5-8.0)
[2023-06-03 06:51] LABS: Band Neutrophils Percent 21 % (3-5); Eosinophils Absolute Manual 0.6 X10*3/uL (0.0-0.4); Eosinophils Percent Manual 4 % (0-4); Lymphocytes Absolute Manual 3.3 X10*3/uL (1.2-4.9); Lymphocytes Percent Manual 21 % (20-40); Metamyelocytes Absolute 0.3 X10*3/uL; Metamyelocytes Percent 2 %; Monocytes Absolute Manual 0.8 X10*3/uL (0.1-1.2); Monocytes Percent Manual 5 % (2-11); Myelocytes Absolute 0.3 X10*/uL; Myelocytes Percent 2 %; Neutrophils Absolute Manual 10.3 X10*3/uL (2.0-8.3); Neutrophils Percent Manual 44 % (45-73); Nucleated Red Blood Cells 1 /100WBC (0-0); Promyelocytes Absolute 0.2 X10*3/uL; Promyelocytes Percent 1 %
[2023-06-03 06:52] LABS: Basophilic Stippling 1+ (0-2) /OIF; Howell Jolly Bodies PRESENT; Hypochromasia 1+ (5-14) /OIF; Platelet Estimate NORMAL (NORMAL); Platelet Morphology Comment NORMAL; Polychromasia 1+ (0-2) /OIF; RBC Morphology NOTED; Smudge Cells PRESENT; Toxic Granulation PRESENT; Toxic Vacuolation PRESENT
[2023-06-03] MEDS: Valproic Acid (as Sodium Salt) 500 MG in Dextrose 5 % 50 ML 55 MG IV ×2 (07:58→21:10)
[2023-06-03] MEDS: Famotidine/PF 20 MG/2 ML VIAL IVPUSH (08:01)
[2023-06-03] MEDS: acetaZOLAMIDE sodium 500 MG VIAL 375 MG IVPUSH (08:02)
[2023-06-03] MEDS: Furosemide 40 MG/4 ML VIAL IVPUSH (08:02)
[2023-06-03] MEDS: 0.9 % Sodium Chloride Flush 3 ML SYRINGE IVFLUSH ×2 (08:04→15:40)
[2023-06-03] MEDS: methylPREDNISolone Sod Succ 40 MG/ML VIAL IVPUSH (08:05)
[2023-06-03] MEDS: ALPRAZolam 0.25 MG TABLET PO ×3 (08:07→21:15)
[2023-06-03] MEDS: polyethylene glycoL 3350 17 GM POWD.PACK PO ×2 (08:07→21:15)
[2023-06-03] MEDS: lamoTRIgine 100 MG TABLET PO ×2 (08:07→21:15)
[2023-06-03] MEDS: Cyanocobalamin (Vitamin B-12) 100 MCG TABLET PO (08:07)
[2023-06-03] MEDS: Chlorhexidine Gluc Oral Rinse 15 ML MOUTHWASH BUCCAL ×3 (08:07→21:15)
[2023-06-03] MEDS: QUEtiapine Fumarate 50 MG TABLET PO ×2 (08:07→21:15)
[2023-06-03] MEDS: Aspirin Enteric Coated 81 MG TABLET.DR PO (08:18)
[2023-06-03] MEDS: dexmedeTOMIDidine HCL/NS 400 MCG/100 ML INFUS..BTL 35.49 MCG IVCONT (08:26)
--- NOTE | 2023-06-03 08:58 | P.PNCC_ITS ---
Subjective Subjective Date of Service: 06/03/23 Interval History: On ventilator support this morning, off Vasopressor support On Precedex for sedation and anxiolysis Place the patient on pressure support trials this morning Critical Care Time (minutes): 40 Physical Exam 2 Vital Signs: Vital Signs: Last Vital Signs Temp 101.5 F H 06/03/23 08:00 Pulse 65 06/03/23 08:00 Resp 30 H 06/03/23 08:00 BP 113/49 L 06/03/23 08:02 Pulse Ox 93 06/03/23 08:00 O2 Del Method Mechanical Ventil ation 06/03/23 08:00 O2 Flow Rate 70 06/02/23 19:53 FiO2 70 06/03/23 08:17 Oxygen Flow Rate 15 05/29/23 06:00 BMI result Body Mass Index 36.5 HEENT: Head: Yes normal to inspection and Yes No palpable skull fracture present Eyes: General: appearance normal, both eyes and all related structures A lignment and Position: alignment normal and position normal Chest: Other: normal breath sides, fine crackles in left base Cardio: Other: normal S1, S2 heard, no murmur GI: Other: soft, non tender, no organomegaly : General: Yes Bimanual renal exam normal bilaterally and Yes bladder normal to inspection Neuro: Other: agitated, no focal deficits Objective Data Labs 06/03/23 05:47 06/03/23 05:47 Labs: Laboratory Results - last 24 hr 05/30/23 06/02/23 06/02/23 06:43 11:16 13:51 WBC RBC Hgb Hct MCV MCH MCHC RDW Plt Count MPV Immature Gran % (Auto) Neut % (Auto) Lymph % (Auto) Bonner % (Auto) Eos % (Auto) Baso % (Auto) Lymph # (Auto) Bonner # (Auto) Eos # (Auto) Baso # (Auto) Abs Immat Gran (auto) Absolute Neuts (auto) Absolute Nucleated RBC Nucleated RBC % (auto) Neutrophils % (Manual) Band Neutrophils % Lymphocytes % (Manual) Monocytes % (Manual) Eosinophils % (Manual) Metamyelocytes % Myelocytes % Promyelocytes % Abs Neuts (Manual) Lymphocytes # (Manual) Monocytes # (Manual) Eosinophils # (Manual) Metamyelocytes # Myelocytes # Promyelocytes # Nucleated RBCs Smudge Cells Toxic Granulation Toxic Vacuolation Platelet Estimate Plt Morphology Comment RBC Morphology Polychromasia Hypochromasia Basophilic Stippling [place] Bodies VBG pH VBG pCO2 VBG pO2 VBG HCO3 VBG O2 Saturation VBG Base Excess Sodium Potassium Chloride Carbon Dioxide Anion Gap BUN Creatinine Estim Creat Clear Calc Estimated GFR POC Glucose 284 H Random Glucose Calcium Phosphorus Magnesium Total Bilirubin AST ALT Alkaline Phosphatase Total Protein Albumin Nasal Screen MRSA (PCR) POSITIVE A Nasal S. aureus Screen POSITIVE A Nasal MRSA/S.aureus Interp SEE NOTE Clozapine 869 Norclozapine 225 06/02/23 06/02/23 06/02/23 17:11 19:53 23:48 WBC RBC Hgb Hct MCV MCH MCHC RDW Plt Count MPV Immature Gran % (Auto) Neut % (Auto) Lymph % (Auto) Bonner % (Auto) Eos % (Auto) Baso % (Auto) Lymph # (Auto) Bonner # (Auto) Eos # (Auto) Baso # (Auto) Abs Immat Gran (auto) Absolute Neuts (auto) Absolute Nucleated RBC Nucleated RBC % (auto) Neutrophils % (Manual) Band Neutrophils % Lymphocytes % (Manual) Monocytes % (Manual) Eosinophils % (Manual) Metamyelocytes % Myelocytes % Promyelocytes % Abs Neuts (Manual) Lymphocytes # (Manual) Monocytes # (Manual) Eosinophils # (Manual) Metamyelocytes # Myelocytes # Promyelocytes # Nucleated RBCs Smudge Cells Toxic Granulation Toxic Vacuolation Platelet Estimate Plt Morphology Comment RBC Morphology Polychromasia Hypochromasia Basophilic Stippling [place] Bodies VBG pH VBG pCO2 VBG pO2 VBG HCO3 VBG O2 Saturation VBG Base Excess Sodium 141 Potassium 3.4 Chloride 101 Carbon Dioxide 31 H Anion Gap 12 BUN 26 H Creatinine 0.79 Estim Creat Clear Calc 91.5 Estimated GFR > 60 POC Glucose 286 H 187 H Random Glucose 246 H Calcium 9.1 Phosphorus Magnesium Total Bilirubin 1.2 H AST 246 H ALT 307 H Alkaline Phosphatase 126 H Total Protein 6.4 L Albumin 3.7 Nasal Screen MRSA (PCR) Nasal S. aureus Screen Nasal MRSA/S.aureus Interp Clozapine Norclozapine 06/03/23 06/03/23 06/03/23 05:47 05:51 05:53 WBC 15.8 H RBC 3.33 L Hgb 10.2 L Hct 31.0 L MCV 93.1 MCH 30.6 MCHC 32.9 RDW 14.3 Plt Count 239 D MPV 11.2 Immature Gran % (Auto) Cancelled Neut % (Auto) Cancelled Lymph % (Auto) Cancelled Bonner % (Auto) Cancelled Eos % (Auto) Cancelled Baso % (Auto) Cancelled Lymph # (Auto) Cancelled Bonner # (Auto) Cancelled Eos # (Auto) Cancelled Baso # (Auto) Cancelled Abs Immat Gran (auto) Cancelled Absolute Neuts (auto) Cancelled Absolute Nucleated RBC 0.060 H Nucleated RBC % (auto) 0.4 H Neutrophils % (Manual) 44 L Band Neutrophils % 21 H Lymphocytes % (Manual) 21 Monocytes % (Manual) 5 Eosinophils % (Manual) 4 Metamyelocytes % 2 Myelocytes % 2 Promyelocytes % 1 Abs Neuts (Manual) 10.3 H Lymphocytes # (Manual) 3.3 Monocytes # (Manual) 0.8 Eosinophils # (Manual) 0.6 H Metamyelocytes # 0.3 Myelocytes # 0.3 Promyelocytes # 0.2 Nucleated RBCs 1 H Smudge Cells PRESENT Toxic Granulation PRESENT Toxic Vacuolation PRESENT Platelet Estimate NORMAL Plt Morphology Comment NORMAL RBC Morphology NOTED Polychromasia 1+ (0-2) Hypochromasia 1+ (5-14) Basophilic Stippling 1+ (0-2) [place] Bodies PRESENT VBG pH 7.48 H VBG pCO2 33 VBG pO2 43 VBG HCO3 25 VBG O2 Saturation 74.0 VBG Base Excess 2.5 Sodium 139 Potassium 3.5 Chloride 104 Carbon Dioxide 26 Anion Gap 13 BUN 32 H Creatinine 0.79 Estim Creat Clear Calc 91.5 Estimated GFR > 60 POC Glucose 192 H Random Glucose 204 H Calcium 9.0 Phosphorus 2.2 L Magnesium 2.4 Total Bilirubin 1.1 H AST 172 H ALT 270 H Alkaline Phosphatase 120 H Total Protein 6.2 L Albumin 3.4 L Nasal Screen MRSA (PCR) Nasal S. aureus Screen Nasal MRSA/S.aureus Interp Clozapine Norclozapine Microbiology Microbiology Results: Microbiology 06/02/23 11:28 Lung - Suctioned Gram Stain - Final 06/02/23 11:28 Lung - Suctioned Sputum Culture - Preliminary No growth to date. 05/31/23 00:20 Sputum - Suctioned Gram Stain - Final 05/31/23 00:20 Sputum - Suctioned Sputum Culture - Final 05/27/23 13:59 Blood - Venous Blood Culture - Final No growth after 5 days. 05/29/23 11:40 Blood - Venous Blood Culture - Preliminary No growth after 48 hours. 05/29/23 11:55 Blood - Venous Blood Culture - Preliminary No growth after 48 hours. 05/27/23 13:55 Blood - Venous Blood Culture - Final Coag negative Staphylococcus 05/28/23 Unknown Urine clean catch - Urine chandler top Urine Culture - Final Progress Note: A&P Assessment and plan (1) Pulmonary aspiration: Status: Acute (2) Acute respiratory failure with hypoxia: Status: Acute (3) Type II diabetes mellitus: Status: Acute (4) Bipolar affective disorder, manic, severe, with psychotic behavior: Status: Acute (5) Fever: Status: Acute Plan Ion Ambrosio is a 62-year-old lady currently very critically ill with past medical history of hypertension, diabetes, hyperlipidemia, obstructive sleep apnea and significant psychiatric history currently admitted in the ICU on ventilator support for what seems to be an aspiration pneumonia versus secondary MRSA pneumonia Neuro: Propofol titrated off, on Precedex mental status improved but still does not follow commands We will get CT of the brain if patient remains unresponsive off propofol home psych medications including carbamazepine 400 mg b.i.d., Depakote 500 mg b.i.d. restarted continue quetiapine 200 mg, closely monitoring QT intervals Patient has been getting benzodiazepines chronically at home, so continue Xanax 0.5 b.i.d to prevent withdrawals. clozapine, her home dose is 100 mg b.i.d. but as she is off of clozapine for several days we will start with 25 mg daily today and slowly uptitrate Cardiac: Septic shock improved, currently off Levophed this morning TTE in 2020 was normal, repeat TTE this admission showed grade 2 diastolic dysfunction Respiratory: Currently on PRVC mode on 70% FiO2 and peep of 8 Tried the patient on pressure support trials this morning but failed due to episodes of desaturation given her high oxygen requirement. Changed her back to PRVC mode. Will get repeat chest x-ray to see if she has worsening pneumonia, her MRSA nares is positive. We will add Zyvox and Zosyn for broad coverage Ventilator management bundle Bronchodilators as needed, head and elevation to 30 degrees, chlorhexidine mouthwash, daily spontaneous awakening trials, daily spontaneous breathing trials We will discontinue Solu-Medrol GI: Admitted with diarrhea, CT of abdomen normal upon admission Has no bowel movements for the past 6 days also, Will up titrate senna and MiraLax, will add lactulose Transaminitis: We will get hepatitis panel, liver ultrasound given her fever to look for source of infection We will up titrate the antibiotics Renal: Good urine output, creatinine 0.8 Combined Respiratory and metabolic alkalosis: We will stop acetazolamide Endocrine: Blood sugars under control Sliding scale insulin as needed, required only about 6 units of sliding scale over the past 24 hours Lines: No central lines, only peripherals Recio catheter replaced as patient had uterine measured retention Prophylaxis: Lovenox and famotidine Quality Stroke Does the patient have a stroke diagnosis?: No VTE Prior VTE?: No VTE Risk Level:: Medical - moderate - high VTE Device Contraindication: Treatment Not Indicated VTE Drug Contraindication: N/A - Med Ordered
[2023-06-03 11:30] LABS: Glucose, Whole Blood 228 mg/dL (60-115)
[2023-06-03] MEDS: vancomycin/NS 2,000 MG/500 ML PLAST..BAG 250 MG IV (11:46)
[2023-06-03 11:54] LABS: HBsAGNum1 0.34 S/CO (0.00-0.99); Hepatitis B Surface Antigen Negative (Negative); ~Hepatitis C Antibody Nonreactive (Nonreactive)
[2023-06-03 11:55] LABS: Hepatitis A Antibody IgM 0.15 Index (0-0.79); ~Hepatitis A Antibody IgM Nonreactive (Nonreactive)
[2023-06-03] MEDS: dexmedeTOMIDidine HCL/NS 400 MCG/100 ML INFUS..BTL 19.11 MCG IVCONT ×2 (12:00→17:51)
[2023-06-03] MEDS: Norepinephrine Bitartrate/D5W 8 MG/250 ML PLAST..BAG 10.24 MG IV (12:17)
[2023-06-03] MEDS: Piperacillin Sodium/Tazobactam 4.5 GM in 0.9 % Sodium Chloride 100 ML IV ×3 (12:27→23:43)
--- NOTE | 2023-06-03 13:08 | PHA.PROG ---
Admission Date/Time: May 27, 2023 21:07 Indication: respiratory infection Weight in k.7 kg Adjusted body weight in K.24 Williams body weight in Kg: Obesity Dosing Indication % IBW: BMI 36.5 Serum Creatinine - Last 168 Hours 05/27/23 05/28/23 05/29/23 15:46 06:09 04:31 Creatinine 0.82 0.67 0.68 05/29/23 05/30/23 05/30/23 06:33 06:43 13:47 Creatinine 0.70 0.80 0.95 05/31/23 05/31/23 06/01/23 05:02 14:04 05:08 Creatinine 0.94 0.86 0.76 06/01/23 06/02/23 06/02/23 20:56 05:23 19:53 Creatinine 0.87 0.83 0.79 06/03/23 05:47 Creatinine 0.79 Estimated CrCl and GFR - Last 168 Hours 05/27/23 05/28/23 05/29/23 15:46 06:09 04:31 Estim Creat Clear Calc 85.4 104.6 106.3 Estimated GFR > 60 > 60 > 60 05/29/23 05/30/23 05/30/23 06:33 06:43 13:47 Estim Creat Clear Calc 103.4 90.4 76.2 Estimated GFR > 60 > 60 59 05/31/23 05/31/23 06/01/23 05:02 14:04 05:08 Estim Creat Clear Calc 76.9 84.1 95.2 Estimated GFR 60 > 60 > 60 06/01/23 06/02/23 06/02/23 20:56 05:23 19:53 Estim Creat Clear Calc 83.1 87.1 91.5 Estimated GFR > 60 > 60 > 60 06/03/23 05:47 Estim Creat Clear Calc 91.5 Estimated GFR > 60 Vancomycin Loading Dose: 2000 x1 Current Vancomycin Dosing Regimen: 750 Q8H Vancomycin Monitoring using AUC goal of 400 - 600 range with trough as surrogate marker: 496 Date and Time for next Vancomycin Level to be drawn: 06/03 @1800 Pharmacist Comments on Vancomycin Plan: predicted trough 17.5, to be adjusted based on trough and renal functon. Vancomycin dosing will take advantage of [employer] as a clinical decision support tool that uses Bayesian modeling to calculate individual patient's pharmacokinetic parameters and forecast the patient's drug concentration time course with the target goal AUC 24 range of 400 - 600 mg/L/hr.
--- NOTE | 2023-06-03 15:29 | MHC.CM.PN ---
EMR REVIEWED, PT REMAINS ON MECH VENTILATION, NO PLAN FOR DC AT THIS TIME, CM WILL CONT TO FOLLOW DC NEEDS.
[2023-06-03 18:19] LABS: Glucose, Whole Blood 230 mg/dL (60-115)
[2023-06-03] MEDS: vancomycin HCL 750 MG in 0.9 % Sodium Chloride 250 ML 265 MG IV (21:02)
[2023-06-03] MEDS: Enoxaparin Sodium 40 MG/0.4 ML SYRINGE SUBCUT (21:15)
[2023-06-03] MEDS: cloZAPine 25 MG TABLET PO (21:15)
[2023-06-03] MEDS: dexmedeTOMIDidine HCL/NS 400 MCG/100 ML INFUS..BTL 30.03 MCG IVCONT (21:36)
[2023-06-03 23:53] LABS: Glucose, Whole Blood 208 mg/dL (60-115)
[2023-06-04] VITALS (50 sets, daily range): BP systolic 76–161; BP diastolic 37–68; PULSE 65–150; RESP 14–32; TEMP 34.9–38.9; O2SAT 91–100
[2023-06-04] MEDS: Insulin Lispro 100 UNIT/ML 3 ML VIAL SUBCUT ×4 (00:31→17:48)
[2023-06-04] MEDS: 0.9 % Sodium Chloride Flush 3 ML SYRINGE IVFLUSH ×3 (00:31→16:22)
[2023-06-04] MEDS: Acetaminophen 325 MG TABLET 975 MG PO (00:31)
[2023-06-04] MEDS: dexmedeTOMIDidine HCL/NS 400 MCG/100 ML INFUS..BTL 30.03 MCG IVCONT ×2 (00:41→11:02)
[2023-06-04] MEDS: Mineral OiL enema 133 ML ENEMA PR (01:02)
[2023-06-04] MEDS: Midazolam HCl/PF 2 MG/2 ML VIAL IVPUSH ×2 (01:15→05:06)
[2023-06-04] MEDS: Norepinephrine Bitartrate/D5W 8 MG/250 ML PLAST..BAG 22.52 MG IV (02:34)
[2023-06-04] MEDS: vancomycin HCL 750 MG in 0.9 % Sodium Chloride 250 ML 265 MG IV ×2 (03:27→11:39)
[2023-06-04] MEDS: dexmedeTOMIDidine HCL/NS 400 MCG/100 ML INFUS..BTL 35.49 MCG IVCONT ×5 (03:29→17:53)
[2023-06-04] MEDS: Albuterol Sulfate (0.083%) 2.5 MG/3 ML VIAL.NEB INHALE ×2 (04:05→11:50)
[2023-06-04] MEDS: Thyroid,Pork 30 MG TABLET 120 MG PO (05:45)
[2023-06-04] MEDS: levoFLOXacin/D5W 750 MG/150 ML PIGGYBACK 100 MG IV (05:45)
[2023-06-04] MEDS: Piperacillin Sodium/Tazobactam 4.5 GM in 0.9 % Sodium Chloride 100 ML IV ×4 (05:49→23:12)
[2023-06-04 05:57] LABS: VBG Base Excess 1.9 mmol/L; VBG HCO3 28 mmol/L (22-26); VBG pCO2 50 mmHg; VBG pH 7.35 (7.32-7.43); VBG pO2 56 mmHg
[2023-06-04 06:02] LABS: Venous Blood Gas Refer to POC result
[2023-06-04 06:06] LABS: Glucose, Whole Blood 213 mg/dL (60-115)
[2023-06-04 06:51] LABS: Creatinine Clr Calc Pharmacy 96.1; Estimated Glomerular Filt Rate > 60
--- NOTE | 2023-06-04 08:20 | P.PNCC_ITS ---
Subjective Subjective Date of Service: 06/04/23 Critical Care Time (minutes): 40 Comment: Continues to remain on ventilator. Fever trend continues to be on higher side between 100-102.1 Vent settings slightly improved continues to be on levophed for vasopressor support Constipation, has dilated descending colon on x-ray KUB Physical Exam 2 Vital Signs: Vital Signs: Last Vital Signs Temp 99.7 F 06/04/23 08:00 Pulse 85 06/04/23 08:00 Resp 22 H 06/04/23 08:00 BP 128/49 L 06/04/23 08:00 Pulse Ox 100 06/04/23 08:00 O2 Del Method Mechanical Ventil ation 06/04/23 08:00 O2 Flow Rate 70 06/02/23 19:53 FiO2 65 06/04/23 08:00 Oxygen Flow Rate 15 05/29/23 06:00 BMI result Body Mass Index 36.5 Const: General: acute distress, in distress and confusion O rientation/consciousness: confusion HEENT: Head: Yes normal to inspection and Yes normocephalic Eyes: General: appearance normal, both eyes and all related structures A lignment and Position: alignment normal Resp: Other: Bilateral crackles heard left more than right, bilateral air entry equal Cardio: Other: Normal S1, no GI: Other: Soft, distended, no organomegaly Skin: Other: No skin breakdown no skin breakdown Neuro: Other: No focal deficits, on Precedex for anxiolysis General: confusion Objective Data Labs 06/03/23 05:47 06/04/23 05:50 Labs: Laboratory Results - last 24 hr 06/03/23 06/03/23 06/03/23 11:03 11:22 18:16 VBG pH VBG pCO2 VBG pO2 VBG HCO3 VBG O2 Saturation VBG Base Excess Creatinine Estim Creat Clear Calc Estimated GFR POC Glucose 228 H 230 H Hepatitis A IgM Ab Nonreactive Hep Bs Antigen Negative Hepatitis C Ab (EIA) Nonreactive 06/03/23 06/04/23 06/04/23 23:48 05:50 05:55 VBG pH 7.35 VBG pCO2 50 VBG pO2 56 VBG HCO3 28 H VBG O2 Saturation 85.0 VBG Base Excess 1.9 Creatinine 0.74 Estim Creat Clear Calc 96.1 Estimated GFR > 60 POC Glucose 208 H 213 H Hepatitis A IgM Ab Hep Bs Antigen Hepatitis C Ab (EIA) Microbiology Microbiology Results: Microbiology 05/29/23 11:40 Blood - Venous Blood Culture - Final No growth after 5 days. 05/29/23 11:55 Blood - Venous Blood Culture - Final No growth after 5 days. 06/02/23 11:46 Blood - Venous Blood Culture - Preliminary No growth after 24 hours. 06/02/23 11:46 Blood - Venous Blood Culture - Preliminary No growth after 24 hours. 06/02/23 11:28 Lung - Suctioned Gram Stain - Final 06/02/23 11:28 Lung - Suctioned Sputum Culture - Preliminary No growth to date. 05/31/23 00:20 Sputum - Suctioned Gram Stain - Final 05/31/23 00:20 Sputum - Suctioned Sputum Culture - Final 05/27/23 13:59 Blood - Venous Blood Culture - Final No growth after 5 days. 05/27/23 13:55 Blood - Venous Blood Culture - Final Coag negative Staphylococcus 05/28/23 Unknown Urine clean catch - Urine chandler top Urine Culture - Final Progress Note: A&P Assessment and plan (1) Acute respiratory failure with hypoxia: Status: Acute (2) Acute congestive heart failure: Status: Acute (3) Acute pulmonary edema: Status: Acute (4) Pulmonary aspiration: Status: Acute (5) Type II diabetes mellitus: Status: Acute Plan Ion Ambrosio is a 62-year-old lady currently very critically ill with past medical history of hypertension, diabetes, hyperlipidemia, obstructive sleep apnea and significant psychiatric history currently admitted in the ICU on ventilator support for what seems to be an aspiration pneumonia versus secondary MRSA pneumonia Neuro: on Precedex for anxiolysis mental status improved but still does not follow commands home psych medications including carbamazepine 400 mg b.i.d., Depakote 500 mg b.i.d. restarted continue quetiapine 200 mg, closely monitoring QT intervals clozapine, her home dose is 100 mg b.i.d. + restarted at 25 mg daily; will slowly uptitrate Patient has been getting benzodiazepines chronically at home, so continue Xanax 0.5 b.i.d to prevent withdrawals. Cardiac: Septic shock: on levophed for vasopressor support, titrate for MAP above 65mmHg TTE in 2020 was normal, repeat TTE this admission showed grade 2 diastolic dysfunction Respiratory: Currently on PRVC mode FiO2 decreased to 50% this morning from 65%, peep remains at 5. Peak and plateau pressures remains under the curve Will get repeat chest x-ray to see if she has worsening pneumonia, her MRSA nares is positive. Zyvox and Zosyn was ordered yesterday for broader coverage, we will discontinue levofloxacin. Ventilator management bundle Bronchodilators as needed, head and elevation to 30 degrees, chlorhexidine mouthwash, daily spontaneous awakening trials, daily spontaneous breathing trials GI: Admitted with diarrhea, CT of abdomen normal upon admission Has no bowel movements for the past 7 days, excellent KUB done yesterday showed dilated descending colon be BMS placed on senna and MiraLax, received so far 2 enema without much success. Added sorbitol, bisacodyl; increaed dose of senna to 30ml daily Transaminitis: hepatitis panel negative, liver ultrasound showed history of cholecystectomy, slight ascites around the liver; will diurese her more aggressively We will up titrate the antibiotics Renal: Good urine output, pending labs from today Combined Respiratory and metabolic alkalosis: Resolved after stopping acetazolamide Endocrine: Blood sugars under control Sliding scale insulin as needed, required only about 6 units of sliding scale over the past 24 hours Lines: No central lines, only peripherals Recio catheter replaced as patient had uterine measured retention Prophylaxis: Lovenox and famotidine Quality Stroke Does the patient have a stroke diagnosis?: No VTE Prior VTE?: No VTE Risk Level:: Medical - moderate - high VTE Device Contraindication: Treatment Not Indicated VTE Drug Contraindication: N/A - Med Ordered
[2023-06-04] MEDS: Cyanocobalamin (Vitamin B-12) 100 MCG TABLET PO (08:29)
[2023-06-04] MEDS: polyethylene glycoL 3350 17 GM POWD.PACK PO (08:29)
[2023-06-04] MEDS: Famotidine/PF 20 MG/2 ML VIAL IVPUSH (08:29)
[2023-06-04] MEDS: Furosemide 40 MG/4 ML VIAL IVPUSH ×2 (08:29→19:36)
[2023-06-04] MEDS: Aspirin Enteric Coated 81 MG TABLET.DR PO (08:29)
[2023-06-04] MEDS: lamoTRIgine 100 MG TABLET PO ×2 (08:29→19:35)
[2023-06-04] MEDS: ALPRAZolam 0.25 MG TABLET PO ×3 (08:29→19:35)
[2023-06-04] MEDS: QUEtiapine Fumarate 50 MG TABLET PO ×2 (08:29→19:35)
[2023-06-04] MEDS: Valproic Acid (as Sodium Salt) 500 MG in Dextrose 5 % 50 ML 55 MG IV ×2 (08:30→21:59)
[2023-06-04] MEDS: Chlorhexidine Gluc Oral Rinse 15 ML MOUTHWASH BUCCAL ×3 (09:00→19:36)
[2023-06-04] MEDS: bisacodyL 5 MG TABLET.DR 10 MG PO (10:55)
[2023-06-04 11:22] LABS: Glucose, Whole Blood 271 mg/dL (60-115)
--- NOTE | 2023-06-04 13:12 | MHC.CM.PN ---
Pt continues on ventilatory support with Levophed for BP management: pt is febrile and no plans to extubate today. Pt initially from [facility] inpt: will need to see [facility] psych once medically stable.
[2023-06-04] MEDS: Norepinephrine Bitartrate/D5W 8 MG/250 ML PLAST..BAG 10.24 MG IV (15:33)
[2023-06-04 17:22] LABS: Glucose, Whole Blood 187 mg/dL (60-115)
[2023-06-04 18:37] LABS: Vancomycin Random 13.1 mcg/mL (15-20)
--- NOTE | 2023-06-04 18:47 | HE.PHANOTE ---
JAYEO Increased vanco dose to 1500 mg Q12H, per subtheraprutic trough of 13.1. Renal function is stable, next trough for 06/04 @1800, predicted trough 17.3, prediced AUC 542.
[2023-06-04] MEDS: cloZAPine 25 MG TABLET PO (19:36)
[2023-06-04] MEDS: dexmedeTOMIDidine HCL/NS 400 MCG/100 ML INFUS..BTL 40.95 MCG IVCONT ×2 (20:21→22:40)
[2023-06-04] MEDS: vancomycin HCL 1,500 MG in 0.9 % Sodium Chloride 500 ML 333.33 MG IV (21:23)
[2023-06-04] MEDS: Enoxaparin Sodium 40 MG/0.4 ML SYRINGE SUBCUT (22:01)
[2023-06-04] MEDS: fentaNYL citrate/PF 100 MCG/2 ML VIAL IVPUSH (22:55)
[2023-06-05] VITALS (66 sets, daily range): BP systolic 71–179; BP diastolic 2–78; PULSE 69–153; RESP 18–32; TEMP 34.7–38.9; O2SAT 85–100
[2023-06-05] MEDS: Insulin Lispro 100 UNIT/ML 3 ML VIAL SUBCUT ×4 (00:07→23:43)
[2023-06-05 00:10] LABS: Glucose, Whole Blood 174 mg/dL (60-115)
[2023-06-05] MEDS: fentaNYL citrate/PF 100 MCG/2 ML VIAL 25 MCG IVPUSH ×4 (00:27→13:19)
[2023-06-05] MEDS: Acetaminophen 325 MG TABLET 975 MG PO ×2 (00:44→19:13)
[2023-06-05] MEDS: dexmedeTOMIDidine HCL/NS 400 MCG/100 ML INFUS..BTL 40.95 MCG IVCONT ×3 (00:48→05:31)
[2023-06-05] MEDS: Midazolam HCl/PF 2 MG/2 ML VIAL IVPUSH ×2 (05:00→09:23)
[2023-06-05 05:07] LABS: Hematocrit 31.2 % (37.0-47.0); Hemoglobin 9.9 g/dl (12.0-16.0); Mean Corpuscular HGB Conc 31.7 g/dl (31.0-35.0); Mean Corpuscular Hemoglobin 30.7 pg (27.0-33.0); Mean Corpuscular Volume 96.9 fL (80.0-98.0); Mean Platelet Volume 10.3 fL (9.4-12.3); Platelet Count 272 X10*3/uL (160-400); Red Blood Count 3.22 X10*6/uL (4.20-5.50); White Blood Count 19.6 X10*3/uL (4.8-10.8)
[2023-06-05 05:10] LABS: VBG Base Excess 5.7 mmol/L; VBG HCO3 29 mmol/L (22-26); VBG pCO2 41 mmHg; VBG pH 7.46 (7.32-7.43); VBG pO2 45 mmHg
[2023-06-05 05:14] LABS: Baso%MD 0.5 %; Eos%MD 1.7 %; IG%MD 11.7 %; Lymph%MD 9.1 %; Mono%MD 4.2 %; Neut%MD 72.8 %
[2023-06-05 05:27] LABS: Alanine Aminotransferase 113 U/L (0-31); Albumin Level 2.9 g/dL (3.5-5.0); Alkaline Phosphatase 92 U/L (39-117); Anion Gap 12 (12-20); Aspartate Amino Transferase 38 U/L (5-31); Bilirubin Total 0.6 mg/dL (0.0-1.0); Blood Urea Nitrogen 28 mg/dL (9-16); Calcium 8.3 mg/dL (8.4-10.2); Carbon Dioxide 25 mmol/L (22-29); Chloride 106 mmol/L (96-108); Creatinine Clr Calc Pharmacy 96.1; Estimated Glomerular Filt Rate > 60; Glucose Random 188 mg/dL (60-115); Potassium 3.8 mmol/L (3.3-5.1); Sodium 139 mmol/L (135-145); Total Protein 6.1 g/dL (6.5-8.0)
[2023-06-05] MEDS: Piperacillin Sodium/Tazobactam 4.5 GM in 0.9 % Sodium Chloride 100 ML IV ×4 (05:30→22:53)
[2023-06-05] MEDS: Thyroid,Pork 30 MG TABLET 120 MG PO (05:30)
[2023-06-05 05:37] LABS: Band Neutrophils Percent 9 % (3-5); Eosinophils Absolute Manual 0.4 X10*3/uL (0.0-0.4); Eosinophils Percent Manual 2 % (0-4); Lymphocytes Absolute Manual 2.5 X10*3/uL (1.2-4.9); Lymphocytes Percent Manual 13 % (20-40); Metamyelocytes Absolute 0.8 X10*3/uL; Metamyelocytes Percent 4 %; Monocytes Percent Manual 5 % (2-11); Myelocytes Absolute 0.2 X10*/uL; Myelocytes Percent 1 %; Neutrophils Absolute Manual 14.7 X10*3/uL (2.0-8.3); Neutrophils Percent Manual 66 % (45-73)
[2023-06-05 05:40] LABS: RBC Morphology NOTED
[2023-06-05 05:41] LABS: Acanthocytes 1+ (0-2) /OIF; Burr Cells 1+ (0-2) /OIF
[2023-06-05 05:42] LABS: Polychromasia 1+ (0-2) /OIF; Toxic Granulation PRESENT
[2023-06-05 05:42] LABS: Venous Blood Gas Refer to POC result
[2023-06-05 05:44] LABS: Platelet Estimate NORMAL (NORMAL)
[2023-06-05 05:46] LABS: Platelet Morphology Comment NORMAL
[2023-06-05 05:47] LABS: Schistocytes 1+ (0-2) /OIF
[2023-06-05] MEDS: Albumin Human 25 % 100 ML IV ×2 (07:35→08:36)
[2023-06-05] MEDS: vancomycin HCL 1,500 MG in 0.9 % Sodium Chloride 500 ML 333.33 MG IV (07:40)
[2023-06-05] MEDS: 0.9 % Sodium Chloride Flush 3 ML SYRINGE IVFLUSH ×2 (07:40→23:43)
--- NOTE | 2023-06-05 08:27 | PM.CCPN ---
Subjective Subjective Date of Service: 06/05/23 Critical Care Time (minutes): 45 Comment: Remains on the ventilator support however oxygen requirement improving. Failed terribly on pressure support trials desaturated to 60s and tachycardiac to 150s Continues to be febrile, slight increase in WBC count to 19.6. Cultures remain negative, on vancomycin and Zosyn Had multiple bowel movements yesterday Physical Exam Vital Signs: Vital Signs: Last Vital Signs Temp 99.9 F 06/05/23 08:00 Pulse 83 06/05/23 08:00 Resp 26 H 06/05/23 08:00 BP 138/58 L 06/05/23 08:00 Pulse Ox 100 06/05/23 08:00 O2 Del Method Mechanical Ventil ation 06/05/23 08:00 O2 Flow Rate 70 06/02/23 19:53 FiO2 40 06/05/23 08:00 Oxygen Flow Rate 15 05/29/23 06:00 BMI result Body Mass Index 36.5 HEENT: Head: Yes normal to inspection, Yes normocephalic and Yes atraumatic Eyes: General: appearance normal, both eyes and all related structures Alignment and Position: alignment normal and position normal Resp: Other: Bilateral equal for but better than Cardio: Other: Normal S1-S2 heard GI: Other: Soft, distended Skin: Other: No skin breakdown no skin breakdown Neuro: Other: More alert, following commands Objective Data Labs 06/05/23 04:59 06/05/23 04:59 Labs: Laboratory Results - last 24 hr 06/04/23 06/04/23 06/04/23 11:16 17:14 18:03 WBC RBC Hgb Hct MCV MCH MCHC RDW Plt Count MPV Immature Gran % (Auto) Neut % (Auto) Lymph % (Auto) Hitchcock % (Auto) Eos % (Auto) Baso % (Auto) Lymph # (Auto) Hitchcock # (Auto) Eos # (Auto) Baso # (Auto) Abs Immat Gran (auto) Absolute Neuts (auto) Absolute Nucleated RBC Nucleated RBC % (auto) Neutrophils % (Manual) Band Neutrophils % Lymphocytes % (Manual) Monocytes % (Manual) Eosinophils % (Manual) Metamyelocytes % Myelocytes % Abs Neuts (Manual) Lymphocytes # (Manual) Monocytes # (Manual) Eosinophils # (Manual) Metamyelocytes # Myelocytes # Toxic Granulation Platelet Estimate Plt Morphology Comment RBC Morphology Polychromasia Jyoti Cells Acanthocytes (Spur) Schistocytes VBG pH VBG pCO2 VBG pO2 VBG HCO3 VBG O2 Saturation VBG Base Excess Sodium Potassium Chloride Carbon Dioxide Anion Gap BUN Creatinine Estim Creat Clear Calc Estimated GFR POC Glucose 271 H 187 H Random Glucose Calcium Total Bilirubin AST ALT Alkaline Phosphatase Total Protein Albumin Random Vancomycin 13.1 L 06/05/23 06/05/23 06/05/23 00:00 04:59 05:01 WBC 19.6 H RBC 3.22 L Hgb 9.9 L Hct 31.2 L MCV 96.9 MCH 30.7 MCHC 31.7 RDW 14.0 Plt Count 272 MPV 10.3 Immature Gran % (Auto) Cancelled Neut % (Auto) Cancelled Lymph % (Auto) Cancelled Hitchcock % (Auto) Cancelled Eos % (Auto) Cancelled Baso % (Auto) Cancelled Lymph # (Auto) Cancelled Hitchcock # (Auto) Cancelled Eos # (Auto) Cancelled Baso # (Auto) Cancelled Abs Immat Gran (auto) Cancelled Absolute Neuts (auto) Cancelled Absolute Nucleated RBC 0.000 Nucleated RBC % (auto) 0.0 Neutrophils % (Manual) 66 Band Neutrophils % 9 H Lymphocytes % (Manual) 13 L Monocytes % (Manual) 5 Eosinophils % (Manual) 2 Metamyelocytes % 4 Myelocytes % 1 Abs Neuts (Manual) 14.7 H Lymphocytes # (Manual) 2.5 Monocytes # (Manual) 1.0 Eosinophils # (Manual) 0.4 Metamyelocytes # 0.8 Myelocytes # 0.2 Toxic Granulation PRESENT Platelet Estimate NORMAL Plt Morphology Comment NORMAL RBC Morphology NOTED Polychromasia 1+ (0-2) Howell Cells 1+ (0-2) Acanthocytes (Spur) 1+ (0-2) Schistocytes 1+ (0-2) VBG pH 7.46 H VBG pCO2 41 VBG pO2 45 VBG HCO3 29 H VBG O2 Saturation 77.0 VBG Base Excess 5.7 Sodium 139 Potassium 3.8 Chloride 106 Carbon Dioxide 25 Anion Gap 12 BUN 28 H Creatinine 0.74 Estim Creat Clear Calc 96.1 Estimated GFR > 60 POC Glucose 174 H Random Glucose 188 H Calcium 8.3 L D Total Bilirubin 0.6 AST 38 H ALT 113 H Alkaline Phosphatase 92 Total Protein 6.1 L Albumin 2.9 L Random Vancomycin Microbiology Microbiology Results: Microbiology 06/02/23 11:46 Blood - Venous Blood Culture - Preliminary No growth after 48 hours. 06/02/23 11:46 Blood - Venous Blood Culture - Preliminary No growth after 48 hours. 06/02/23 11:28 Lung - Suctioned Gram Stain - Final 06/02/23 11:28 Lung - Suctioned Sputum Culture - Preliminary Culture in progress. 05/29/23 11:40 Blood - Venous Blood Culture - Final No growth after 5 days. 05/29/23 11:55 Blood - Venous Blood Culture - Final No growth after 5 days. 05/31/23 00:20 Sputum - Suctioned Gram Stain - Final 05/31/23 00:20 Sputum - Suctioned Sputum Culture - Final 05/27/23 13:59 Blood - Venous Blood Culture - Final No growth after 5 days. 05/27/23 13:55 Blood - Venous Blood Culture - Final Coag negative Staphylococcus 05/28/23 Unknown Urine clean catch - Urine chandler top Urine Culture - Final Progress Note: A&P Assessment and plan (1) Acute respiratory failure with hypoxia: Status: Acute (2) Acute congestive heart failure: Status: Acute (3) Acute pulmonary edema: Status: Acute (4) Pulmonary aspiration: Status: Acute (5) Type II diabetes mellitus: Status: Acute Plan Ion Ambrosio is a 62-year-old lady currently very critically ill with past medical history of hypertension, diabetes, hyperlipidemia, obstructive sleep apnea and significant psychiatric history currently admitted in the ICU on ventilator support for what seems to be an aspiration pneumonia versus secondary MRSA pneumonia Neuro: on Precedex for anxiolysis mental status improved following some commands today, we will consider switching to ketamine given persistent fever possibly from Precedex home psych medications including carbamazepine 400 mg b.i.d., Depakote 500 mg b.i.d. restarted continue quetiapine 200 mg, closely monitoring QT intervals clozapine, her home dose is 100 mg b.i.d. + restarted at 25 mg daily; will increase to 50 mg daily today Patient has been getting benzodiazepines chronically at home, so continue Xanax 0.5 b.i.d to prevent withdrawals. Cardiac: Septic shock: on levophed for vasopressor support, doses decreasing titrate for MAP above 65mmHg TTE in 2020 was normal, repeat TTE this admission showed grade 2 diastolic dysfunction Paroxysmal Atrial fibrillation with RVR: Went into atrial fibrillation with RVR during pressure support trials today She persists to be in AFib with RVR we will give her amiodarone bolus Marc Vasc score: 4, will need anticoagulation if paroxysmal atrial fibrillation persists Respiratory: Currently on PRVC mode FiO2 improving oxygen requirements, down to 40%, peep remains at 6. We will try the patient on pressor support for weaning trials Will get repeat chest x-ray to see if she has worsening pneumonia, her MRSA nares is positive. Antibiotic coverage broadened to vancomycin and Zosyn Ventilator management bundle Bronchodilators as needed, head and elevation to 30 degrees, chlorhexidine mouthwash, daily spontaneous awakening trials, daily spontaneous breathing trials GI: Admitted with diarrhea, CT of abdomen normal upon admission Had multiple bowel movements yesterday after starting sorbitol. But the belly still distended but that a repeat x-ray KUB continue senna, MiraLax and bisacodyl. Transaminitis: hepatitis panel negative, liver ultrasound showed history of cholecystectomy, slight ascites around the liver; will increase her Lasix to 40 mg q.8 We will up titrate the antibiotics Renal: Good urine output, normal renal function With increased IV Lasix to 40 mg q.8 hours Endocrine: Blood sugars under control Sliding scale insulin as needed, required only about 6 units of sliding scale over the past 24 hours Lines: No central lines, only peripherals Recio catheter replaced as patient had uterine measured retention Prophylaxis: Lovenox and famotidine Quality Stroke Does the patient have a stroke diagnosis?: No VTE Prior VTE?: No VTE Risk Level:: Medical - moderate - high VTE Device Contraindication: Treatment Not Indicated VTE Drug Contraindication: N/A - Med Ordered
[2023-06-05] MEDS: Famotidine/PF 20 MG/2 ML VIAL IVPUSH (08:31)
[2023-06-05] MEDS: Chlorhexidine Gluc Oral Rinse 15 ML MOUTHWASH BUCCAL ×3 (08:31→20:23)
[2023-06-05] MEDS: Furosemide 40 MG/4 ML VIAL IVPUSH ×3 (08:32→20:23)
[2023-06-05] MEDS: dexmedeTOMIDidine HCL/NS 400 MCG/100 ML INFUS..BTL 8.19 MCG IVCONT (08:48)
[2023-06-05] MEDS: Cyanocobalamin (Vitamin B-12) 100 MCG TABLET PO (08:50)
[2023-06-05] MEDS: polyethylene glycoL 3350 17 GM POWD.PACK PO ×2 (08:51→20:23)
[2023-06-05] MEDS: ALPRAZolam 0.25 MG TABLET PO ×3 (08:51→20:23)
[2023-06-05] MEDS: lamoTRIgine 100 MG TABLET PO ×2 (08:51→20:23)
[2023-06-05] MEDS: QUEtiapine Fumarate 50 MG TABLET PO ×2 (08:51→20:24)
--- NOTE | 2023-06-05 09:30 | ECG_ITS ---
Test Reason : ? Rhythm Change Blood Pressure : / mmHG Vent. Rate : 116 BPM Atrial Rate : 000 BPM P-R Int : 000 ms QRS Dur : 088 ms QT Int : 366 ms P-R-T Axes : 000 086 -13 degrees QTc Int : 508 ms Atrial fibrillation with rapid ventricular response Low voltage QRS Nonspecific ST and T wave abnormality Abnormal ECG When compared to the previous EKG of Atrial fibrillation with rapid ventricular response has replaced Normal sinus rhythm Referred By: Pedrito Wolf Electronically Signed By:CARLOS SHEN MD
[2023-06-05] MEDS: fentaNYL citrate/PF 100 MCG/2 ML VIAL 50 MCG IVPUSH (09:50)
--- NOTE | 2023-06-05 09:55 | MHC.CLN ---
F/U PT REMAINS INTUBATED DISCUSSED AT ROUNDS WITH TF PLACED ON BRIEF HOLD IN ANTICIPATION OF EXTUBATION, HOWEVER TF TO RE-START PT WITH NGT IN PLACE WITH GLUCERNA AT MAX GOAL RATE 40ML/HR WITH 30ML PROSOURCE BID AND 240ML FREE WATER FLUSHES Q 6 HRS PROVIDING 1080KCALS, 70G PROTEIN (1.1G/KG), 1779ML TOTAL FREE WATER FROM FORMULA AND FLUSHES (29ML/KG) PT TOLERATING TF WELL PER NSG WITH LOW RESIDUALS MONITOR TOLERANCE, RESIDUALS AND LYTES
[2023-06-05] MEDS: Ketamine HCl 500 MG in 0.9 % Sodium Chloride 250 ML IVCONT (10:25)
[2023-06-05] MEDS: Valproic Acid (as Sodium Salt) 500 MG in Dextrose 5 % 50 ML 55 MG IV ×2 (10:28→20:22)
[2023-06-05 11:23] LABS: Glucose, Whole Blood 229 mg/dL (60-115)
[2023-06-05] MEDS: propofoL 1,000 MG/100 ML VIAL 19.66 MG IVCONT (13:40)
[2023-06-05] MEDS: Rocuronium Bromide 50 MG/5 ML VIAL 100 MG IV (13:42)
--- NOTE | 2023-06-05 14:30 | PC.RT ---
Pt underwent tube exchange. there was a massive obstruction that was not allowing volumes greater than 100ml. Bedside bronch was performed and new 7.5 tube was placed. 22 @ lip. Positive color change
[2023-06-05] MEDS: dexmedeTOMIDidine HCL/NS 400 MCG/100 ML INFUS..BTL 26.43 MCG IVCONT ×3 (15:00→21:46)
--- NOTE | 2023-06-05 15:07 | MHC.CM.PN ---
Pt continues care in ICU: on ventilatory support: failed sedation vacation attempt as well as PSV trial. On cooling blanket and IV ATB for temp - sedation meds to be changed. No plans for vent weaning today. CM to follow for finalization of d/c planning needs: Pt will need to be seen by psych once medically stable.
--- NOTE | 2023-06-05 15:45 | PM.CNCAR ---
History of Present Illness History of Present Illness Date of Service: 06/05/23 Requesting physician: Pedrito Wolf Consult reason: other (Asystole) Chief complaint: Acute hypoxia, pulmonary edema Narrative: I was consulted to see Daily in cardiology consultation today as patient has been having tachycardia in the morning had atrial fibrillation that was thought of starting amiodarone but this was never started. Subsequently patient has been difficult to ventilate and during aggressive suctioning there was noted to be a very prolonged sinus arrest asystole up to 45 seconds. Patient subsequently had a blocked ETT which had to be changed after bronchoscopy. Patient still difficult to ventilate. Still having very thick tenacious secretions from the ET tube. Patient noted at bedside to be hypotensive with systolic blood pressure in the 70s. Started on norepinephrine with increase in blood pressure to 80 systolic. Remains tachycardic. Initially appear to be sinus tachycardia subsequently having frequent PACs and possibly atrial flutter at this point time. Patient is currently intubated on ventilator very sick. Reported by nurse that during every suctioning yesterday patient was having significant pauses. These pauses appear to be vagal in nature. Patient being treated with Lasix as she is grossly fluid overloaded. Although after propofol a blood pressure is reduced suggestive of intravascular volume depletion. Review of Systems Review of Systems: Yes unobtainable due to endotracheal tube PMFSH Past Medical History Medical History (Updated 06/05/23 @ 15:56 by Austin Main MD) Hypertension Hyperlipidemia Type II diabetes mellitus PTSD (post-traumatic stress disorder) Surgical History Surgical History History of cholecystectomy Social History Social History Household Members: Other Housing: Other Housing Other:: [facility] facility Do you presently have visiting nurse or other home services: No Comment: 1:1 sitter Patient Tobacco Use Status: Never used Tobacco Tobacco use type: Cigarette e-Cigarette/Vaping Use: Never Used Substance Use Type: Caffiene service: No Sexual orientation: Straight/Heterosexual Meds Allergies Allergy/AdvReac Type Severity Reaction Status Date / Time amoxicillin Allergy Unknown Unknown Uncoded 05/27/23 14:06 Pt states no food allergy Allergy Unknown Unknown Uncoded 05/27/23 14:06 Active Medications: Current Medications Acetaminophen (Acetaminophen 325 Mg Tablet) 975 mg PO Q6H PRN PRN Reason: Fever >101 Last Admin: 06/05/23 00:44 Dose: 975 mg Al Hydroxide/Mg Hydroxide (Magnesium Hydrox/Alum Hydrox 30 Ml Oral.Susp) 30 ml PO Q6H PRN PRN Reason: Heartburn/Nausea Last Admin: 05/29/23 05:11 Dose: 30 ml Albuterol Sulfate (Albuterol Sulfate (0.083%) 2.5 Mg/3 Ml Vial.Neb) 2.5 mg INHALE Q4H PRN PRN Reason: Shortness of Breath/Wheezing Last Admin: 06/04/23 11:50 Dose: 2.5 mg Alprazolam (Alprazolam 0.25 Mg Tablet) 0.25 mg PO TID [facility] Last Admin: 06/05/23 14:57 Dose: 0.25 mg Aspirin (Aspirin Enteric Coated 81 Mg Tablet.) 81 mg PO DAILY [facility] Last Admin: 06/05/23 08:44 Dose: Not Given Bisacodyl (Bisacodyl 5 Mg Tablet.) 10 mg PO DAILY [facility] Last Admin: 06/05/23 08:44 Dose: Not Given Carbamazepine (Carbamazepine Er 200 Mg Tab.Er.12h) 400 mg PO BEDTIME [facility] Last Admin: 05/29/23 22:20 Dose: Not Given Chlorhexidine Gluconate (Chlorhexidine Gluc Oral Rinse 15 Ml Mouthwash) 15 ml BUCCAL TID [facility] Last Admin: 06/05/23 14:56 Dose: 15 ml Clozapine (Clozapine 25 Mg Tablet) 50 mg PO DAILY@2100 [facility] Cyanocobalamin (Cyanocobalamin (Vitamin B-12) 100 Mcg Tablet) 100 mcg PO DAILY [facility] Last Admin: 06/05/23 08:50 Dose: 100 mcg Enoxaparin Sodium (Enoxaparin Sodium 40 Mg/0.4 Ml Syringe) 40 mg SUBCUT Q24H [facility] Last Admin: 06/04/23 22:01 Dose: 40 mg Famotidine (Famotidine/Pf 20 Mg/2 Ml Vial) 20 mg IVPUSH DAILY [facility] Last Admin: 06/05/23 08:31 Dose: 20 mg Fentanyl (Fentanyl Citrate/Pf 100 Mcg/2 Ml Vial) 25 mcg IVPUSH Q2H PRN; Protocol PRN Reason: anxiety/restlessness Last Admin: 06/05/23 13:19 Dose: 25 mcg Furosemide (Furosemide 40 Mg/4 Ml Vial) 40 mg IVPUSH TID BERNARDA; Protocol Last Admin: 06/05/23 14:56 Dose: 40 mg Glucose (Glucose Gel 15 Gm Gel..Gram.) 15 gm PO Q15M PRN; Protocol PRN Reason: per Hypoglycemia Standing Ord. Dextrose (D10) 250 mls @ 750 mls/hr IV Q15M PRN; Protocol PRN Reason: per Hypoglycemia Standing Ord. Propofol (Diprivan) 1,000 mg in 100 mls @ 0 mls/hr IVCONT .Q0M BERNARDA; Protocol Last Titration: 06/05/23 15:25 Dose: 30 mcg/kg/min, 19.66 mls/hr Norepinephrine Bitartrate (Levophed) 8 mg in 250 mls @ 0 mls/hr IV .Q0M [facility]ERNARDA; Protocol Last Titration: 06/05/23 15:40 Dose: 0.04 mcg/kg/min, 8.19 mls/hr Valproic Acid 500 mg/ Dextrose 55 mls @ 55 mls/hr IV BID [facility] Last Infusion: 06/05/23 11:30 Dose: Infused Piperacillin Sod/Tazobactam (Sod 4.5 gm/ Sodium Chloride) 100 mls @ 200 mls/hr IV Q6H [facility] Last Infusion: 06/05/23 12:00 Dose: Infused Vancomycin HCl 1,500 mg/ (Sodium Chloride) 500 mls @ 333.333 mls/hr IV Q12H [facility] Last Infusion: 06/05/23 09:15 Dose: Infused Ketamine HCl 500 mg/ Sodium (Chloride) 255 mls @ 2.695 mls/hr IVCONT .Q24H [facility] Last Infusion: 06/05/23 13:45 Dose: 0 mg/kg/hr, 0 mls/hr Dexmedetomidine HCl (Precedex) 400 mcg in 100 mls @ 0 mls/hr IVCONT .Q0M BERNARDA; Protocol Last Admin: 06/05/23 15:00 Dose: 1 mcg/kg/hr, 26.43 mls/hr Phenylephrine HCl 20 mg/ (Sodium Chloride) 252 mls @ 0 mls/hr IVCONT .Q0M BERNARDA; Protocol Insulin Human Lispro (Insulin Lispro 100 Unit/Ml 3 Ml Vial) 0 unit SUBCUT Q6H [facility]ERN[facility]; Protocol Last Admin: 06/05/23 11:31 Dose: 4 unit Lamotrigine (Lamotrigine 100 Mg Tablet) 100 mg PO BID [facility] Last Admin: 06/05/23 08:51 Dose: 100 mg Lorazepam (Lorazepam 1 Mg Tablet) 1 mg PO BEDTIME [facility] Last Admin: 05/28/23 20:58 Dose: 1 mg Non-Formulary Medication (Sorbitol Solution Fpc 70%) 30 ml NG-TUBE BID [facility] Last Admin: 06/05/23 08:44 Dose: Not Given Ondansetron HCl (Ondansetron Hcl 4 Mg/2 Ml Vial) 4 mg IVPUSH Q8H PRN PRN Reason: Nausea and Vomiting Ondansetron HCl (Ondansetron Odt 4 Mg Tab.Rapdis) 4 mg TRANSLINGU Q6H PRN PRN Reason: Nausea Paliperidone (Paliperidone Er 6 Mg Tab.Er.24) 6 mg PO DAILY [facility] Pharmacy Consult (Consult Rx Vancomycin Dosing) 1 each MISCELLANE DAILY PRN PRN Reason: Consult order Polyethylene Glycol (Polyethylene Glycol 3350 17 Gm Powd.Pack) 17 gm PO BID [facility] Last Admin: 06/05/23 08:51 Dose: 17 gm Quetiapine Fumarate (Quetiapine Fumarate 50 Mg Tablet) 50 mg PO BID [facility] Last Admin: 06/05/23 08:51 Dose: 50 mg Senna (Senna [place] Extract Oral Syrup 15 Ml Syrup) 30 ml PO DAILY PRN PRN Reason: Constipation Last Admin: 06/05/23 08:50 Dose: 30 ml Sodium Chloride (0.9 % Sodium Chloride Flush 3 Ml Syringe) 3 ml IVFLUSH QSHIFT [facility] Last Admin: 06/05/23 07:40 Dose: 3 ml Thyroid (Thyroid,Pork 30 Mg Tablet) 120 mg PO DAILY@0630 [facility] Last Admin: 06/05/23 05:30 Dose: 120 mg Home Medications ?Medication ?Instructions ?Recorded ?Confirmed ?Last Taken ?Type acetaminophen 325 mg tablet 650 mg PO Q6H PRN Pain 05/27/23 05/27/23 Unknown History atorvastatin 40 mg tablet 40 mg PO BEDTIME 05/27/23 05/27/23 Unknown History clozapine 100 mg tablet 100 mg PO BID 05/27/23 05/27/23 Unknown History clozapine 50 mg tablet 50 mg PO BEDTIME 05/27/23 05/27/23 Unknown History divalproex 250 mg tablet,delayed 250 mg PO BID 05/27/23 05/27/23 Unknown History release (Depakote) divalproex 500 mg tablet,delayed 500 mg PO BID 05/27/23 05/27/23 Unknown History release (Depakote) lorazepam 1 mg tablet 1 mg PO Q4H PRN becca 05/27/23 05/27/23 Unknown History magnesium hydroxide 400 mg/5 mL 30 ml PO BEDTIME PRN Constipation 05/27/23 05/27/23 Unknown History oral suspension (Milk of Magnesia) melatonin 3 mg tablet 9 mg PO BEDTIME PRN Insomnia 05/27/23 05/27/23 Unknown History thyroid (pork) 120 mg tablet (BIOMATHEMATICIAN 120 mg PO DAILY@0630 05/27/23 05/27/23 Unknown History Thyroid) Physical Exam Vital Signs: Vital Signs: Last Vital Signs Temp 98.6 F 06/05/23 15:00 Pulse 122 H 06/05/23 15:40 Resp 26 H 06/05/23 15:00 BP 82/40 L 06/05/23 15:40 Pulse Ox 95 06/05/23 15:00 O2 Del Method Mechanical Ventil ation 06/05/23 15:00 O2 Flow Rate 70 06/02/23 19:53 FiO2 50 06/05/23 15:00 Oxygen Flow Rate 15 05/29/23 06:00 BMI result Body Mass Index 36.5 Const: General: other (Sedated on vent) Nutritional Appearance: obese HEENT: Head: Yes normocephalic and Yes atraumatic Neck: Neck: Yes trachea midline and Yes supple Resp: Effort & Inspection: other (On meant with diffusely reduced air entry) Cardio: Jugular venous distension: no JVD Rate: tachycardic Heart sounds: S1 normal heart sound present, S2 normal heart sound present, no click, no gallops, no murmurs and no rubs Skin: General skin exam: no rashes or lesions noted Neuro: General: no focal motor deficits Extrem: General: Yes no clubbing, cyanosis or edema Objective Labs and Meds 06/05/23 04:59 06/05/23 04:59 Lab results: Laboratory Results - last 24 hr 06/04/23 06/04/23 06/05/23 17:14 18:03 00:00 WBC RBC Hgb Hct MCV MCH MCHC RDW Plt Count MPV Immature Gran % (Auto) Neut % (Auto) Lymph % (Auto) Dare % (Auto) Eos % (Auto) Baso % (Auto) Lymph # (Auto) Dare # (Auto) Eos # (Auto) Baso # (Auto) Abs Immat Gran (auto) Absolute Neuts (auto) Absolute Nucleated RBC Nucleated RBC % (auto) Neutrophils % (Manual) Band Neutrophils % Lymphocytes % (Manual) Monocytes % (Manual) Eosinophils % (Manual) Metamyelocytes % Myelocytes % Abs Neuts (Manual) Lymphocytes # (Manual) Monocytes # (Manual) Eosinophils # (Manual) Metamyelocytes # Myelocytes # Toxic Granulation Platelet Estimate Plt Morphology Comment RBC Morphology Polychromasia Clifton Cells Acanthocytes (Spur) Schistocytes VBG pH VBG pCO2 VBG pO2 VBG HCO3 VBG O2 Saturation VBG Base Excess Sodium Potassium Chloride Carbon Dioxide Anion Gap BUN Creatinine Estim Creat Clear Calc Estimated GFR POC Glucose 187 H 174 H Random Glucose Calcium Total Bilirubin AST ALT Alkaline Phosphatase Total Protein Albumin Random Vancomycin 13.1 L 06/05/23 06/05/23 06/05/23 04:59 05:01 11:09 WBC 19.6 H RBC 3.22 L Hgb 9.9 L Hct 31.2 L MCV 96.9 MCH 30.7 MCHC 31.7 RDW 14.0 Plt Count 272 MPV 10.3 Immature Gran % (Auto) Cancelled Neut % (Auto) Cancelled Lymph % (Auto) Cancelled Dare % (Auto) Cancelled Eos % (Auto) Cancelled Baso % (Auto) Cancelled Lymph # (Auto) Cancelled Dare # (Auto) Cancelled Eos # (Auto) Cancelled Baso # (Auto) Cancelled Abs Immat Gran (auto) Cancelled Absolute Neuts (auto) Cancelled Absolute Nucleated RBC 0.000 Nucleated RBC % (auto) 0.0 Neutrophils % (Manual) 66 Band Neutrophils % 9 H Lymphocytes % (Manual) 13 L Monocytes % (Manual) 5 Eosinophils % (Manual) 2 Metamyelocytes % 4 Myelocytes % 1 Abs Neuts (Manual) 14.7 H Lymphocytes # (Manual) 2.5 Monocytes # (Manual) 1.0 Eosinophils # (Manual) 0.4 Metamyelocytes # 0.8 Myelocytes # 0.2 Toxic Granulation PRESENT Platelet Estimate NORMAL Plt Morphology Comment NORMAL RBC Morphology NOTED Polychromasia 1+ (0-2) Clifton Cells 1+ (0-2) Acanthocytes (Spur) 1+ (0-2) Schistocytes 1+ (0-2) VBG pH 7.46 H VBG pCO2 41 VBG pO2 45 VBG HCO3 29 H VBG O2 Saturation 77.0 VBG Base Excess 5.7 Sodium 139 Potassium 3.8 Chloride 106 Carbon Dioxide 25 Anion Gap 12 BUN 28 H Creatinine 0.74 Estim Creat Clear Calc 96.1 Estimated GFR > 60 POC Glucose 229 H Random Glucose 188 H Calcium 8.3 L D Total Bilirubin 0.6 AST 38 H ALT 113 H Alkaline Phosphatase 92 Total Protein 6.1 L Albumin 2.9 L Random Vancomycin Imaging Radiologist's impression: Impressions Chest X-Ray 06/05/23 10:34 IMPRESSION: CHEST: 1. Endotracheal tube terminates at 4 cm above the daya. 2. Increased diffuse bilateral airspace opacities and layering left pleural effusion. ABDOMEN: 1. Nonobstructive bowel gas pattern. 2. No significant stool burden. KUB X-Ray 06/05/23 10:34 IMPRESSION: CHEST: 1. Endotracheal tube terminates at 4 cm above the daya. 2. Increased diffuse bilateral airspace opacities and layering left pleural effusion. ABDOMEN: 1. Nonobstructive bowel gas pattern. 2. No significant stool burden. Chest X-Ray 06/05/23 14:45 IMPRESSION: No change in extensive multifocal consolidation with air bronchograms. Left pleural effusion. Assessment and Plan (1) Asystole: Status: Acute Episode of asystole with significant pause of 45 seconds during aggressive suctioning. This is suggestive of vagal response. Patient had multiple similar episodes with suctioning. If patient has frequent episodes of these bradycardia/asystole affecting her overall hemodynamics or care may consider transvenous pacing although this appears to be transient in nature. I do not think transvenous pacing is necessary at this point time. Patient is obviously in shock with significant hypertension after propofol use. By radiographic evidence and clinically patient does appear to be in overt congestive heart failure. Consider using volume repletion to improve blood pressure especially given hypotension with propofol use. If blood pressure remains an issue with difficult to assess fluid status right heart catheterization can be also performed. Patient is in severe acute hypoxemic respiratory failure with tenacious secretions making ventilation very difficult on her. Continue aggressive supportive care. Overall prognosis is guarded. For now avoid rate lowering medications. Tachycardia appears to be response to hypotension/sepsis syndrome. Will follow with you Procedures Date of Service Date of Service: 06/05/23
[2023-06-05] MEDS: Phenylephrine HCL 20 MG in 0.9 % Sodium Chloride 250 ML 39.96 MG IVCONT (15:50)
--- NOTE | 2023-06-05 16:38 | P.PNCC_ITS ---
Critical Care Event Note Summary Date of Service: 06/05/23 Code activated: No Narrative: This case had a high probability of a clinically significant, sudden, or life threatening deterioration of this patient's condition which required my full and direct attention, intervention and personal management. Critical Care Time (minutes): 45 Comment: Patient had a very eventful afternoon. She went into atrial fibrillation with heart rates of 140s to 150s followed by sinus pauses for up to 40 seconds possibly secondary to vaso vagal activity as she had very large mucus plugs obstructing the airway leading to difficulty in ventilation. Ventilator was disconnected, Ambu-bag ventilation was provided as patient was desaturating with minimal ventilation. It was very hard to bag the patient and suction catheter could not have been passed down.. Patient was paralyzed with rocuronium 100 mg still ventilation was very difficult, sedated with propofol. An emergent bedside bronchoscopy was performed, bronchoscope was passed through ET tube and a large chunk of solidified secretions was noted noted in lower trachea. An attempt was made to suction the thickened secretion but ended up ob structing the ET tube. Patient was extubated immediately and new ET tube was placed. A repeat bronchoscope was passed down the ET tube and the airways appeared to be okay with no major secretions. During this. Patient became very hypoxic needing 100% oxygen peep increased to 14 following which patient became hypotensive needing increasing doses of Levophed support. Eventually patient was placed upright to let the secretions stand the bottom and then the oxygenation improved, FiO2 tapered, peep tapered. Propofol was also tapered leading to decreasing vasopressor requirement. Given patient's tachycardia Levophed was switched to Trevon-Synephrine, propofol is down titrated to minimal requirement. Chest x-ray after intubation showed ET tube appropriate position We will closely monitor for further episode of any sinus pauses in which case we will place a transcutaneous pacemaker and if needed we will place a transvenous pacemaker. Addendum elevation to at least 45 degrees to prevent clogging of major airways leading to difficulty in ventilation.
--- NOTE | 2023-06-05 16:39 | ECG_ITS ---
Test Reason : ryh Blood Pressure : / mmHG Vent. Rate : 078 BPM Atrial Rate : 078 BPM P-R Int : 176 ms QRS Dur : 088 ms QT Int : 356 ms P-R-T Axes : 019 065 064 degrees QTc Int : 405 ms Normal sinus rhythm Normal ECG When compared to the previous EKG of Normal sinus rhythm has replaced Atrial fibrillation Referred By: Pedrito Wolf Electronically Signed By:CARLOS SHEN MD
--- NOTE | 2023-06-05 16:46 | P.PCNCC_ITS ---
Procedures Date of Service Date of Service: 06/05/23 Abscess I/D Consent for Procedure: Emergent-no informed consent obtained Bronchoscopy Bronchoscopy Comments: Patient had difficulty in ventilation leading to desaturation to 60s and 70s. Would only pull up about 100 cc of tidal volumes with each breath on the ventilator. An emergent bronchoscopy was performed, bronchoscope was passed through the ET- tube a large chunk of thickened secretion noted obstructing the trachea, an attempt was made to suction the secretions but ended up clogging the ET tube. ET tube was exchanged, repeat bronchoscopy was performed trachea, right mainstem right upper lobe right middle lobe and right lower lobe bronchus were inspected which looked normal. Secretions were noted in left upper lobe and left lower lobe bronchus which was suctioned. Consent for Procedure: Emergent-no informed consent obtained Route: endotracheal tube Monitor: pulse oximetry Complications: none
--- NOTE | 2023-06-05 16:50 | W.PM.CCHP ---
Procedures Date of Service Date of Service: 06/05/23 Intubation Consent for Procedure: Emergent-no informed consent obtained Time out performed: Yes Sedative: propofol Paralytic: rocuronium Laryngoscope: fiber optic video scope ET tube size: 7.5 ET tube uncuffed: No Tube secured location: teeth Tube placement confirmation: visualized tube passing through cords Patient tolerated procedure: well Intubation complications: none
[2023-06-05] MEDS: propofoL 1,000 MG/100 ML VIAL 26.21 MG IVCONT ×2 (17:43→21:17)
[2023-06-05 17:48] LABS: Glucose, Whole Blood 252 mg/dL (60-115)
[2023-06-05] MEDS: Phenylephrine HCL 20 MG in 0.9 % Sodium Chloride 250 ML 119.86 MG IVCONT ×2 (18:04→20:16)
--- NOTE | 2023-06-05 18:22 | PC.NURSE ---
Assumed care at 0700. Pt alert and awake, following commands and tolerating PC on the vent with no acute distress. Per plan, sedation weaned off and trialled on PS which pt did not last even for a minute. Had to be put back on PC on the vent and back on sedation. Pt's cardiac rhythm during this changed from SR with a pause of 2.5 seconds into Afib with RVR, EKG confirmed this and MD was made aware of this. Pt continued to be restless and agitated, requiring IVP Fentanyl and IVP Versed. MD also switched the sedation to IV ketamine gtt. Pt converted back to SR with frequent PACs and PVCs at approximately 1140, after which pt went into Atrial Trigeminy, MD made aware of this with no new orders. At approximatley 1210, pt had a pause of 47 seconds, during this event, pt had a very thready pulse, pt was awake but not interactive, MD made aware of this and came to bedside, Cardiology Consult in place. Pt went back into Afib after this. Pt was bed bathed, after which pt started to stack her breaths and EtCO2 increased upto 73, pt making less than 100 cc volumes, RT called to bedside, RT unable to advance the inline catheter all the way to suction and unable to completely ventilate pt with bagging either, MD called to bedside. Sedation switched to Propofol and gave a 100mg IVP Mp per MD's order. Emergent bedside bronch performed by MD, ETT clogged with thick secretions, unable to suction out, requiring changing of the ETT. ETT 7.5, 22 at the lip. Pt hypoxic, put on ACVC 18/400/14/100% initially, pt hypotensive, restarted on the IV Levophed gtt, added Precedex for sedation per MD's order. With HR in the 150s, MD changed pressors to IV Trevon gtt. Pt's pressures improved after this, able to wean PEEP and FiO2 to 8 and 40% respectively. At approximately 1600, pt going and out of SR/ST and Aflutter; when getting an EKG to confirm this change, pt converted back to SR, MD made aware of this. Pt currently in no acute distress. SR on the tele. Satting in the high 90s. Bed alarmed and in the lowest position. Repositioned every 2 hrs and as needed. Safety maintained throughout.
[2023-06-05 18:33] LABS: Vancomycin Random 22.8 mcg/mL (15-20)
[2023-06-05] MEDS: cloZAPine 25 MG TABLET 50 MG PO (20:23)
[2023-06-05] MEDS: Enoxaparin Sodium 40 MG/0.4 ML SYRINGE SUBCUT (21:17)
[2023-06-05] MEDS: Phenylephrine HCL 20 MG in 0.9 % Sodium Chloride 250 ML 239.73 MG IVCONT (21:43)
[2023-06-05] MEDS: Phenylephrine HCL 20 MG in 0.9 % Sodium Chloride 250 ML 159.82 MG IVCONT (22:55)
[2023-06-05 23:45] LABS: Glucose, Whole Blood 172 mg/dL (60-115)
[2023-06-06] VITALS (48 sets, daily range): BP systolic 91–152; BP diastolic 36–77; PULSE 65–130; RESP 18–39; TEMP 34.9–39.3; O2SAT 85–100
[2023-06-06] MEDS: Phenylephrine HCL 20 MG in 0.9 % Sodium Chloride 250 ML 119.86 MG IVCONT (00:44)
[2023-06-06] MEDS: propofoL 1,000 MG/100 ML VIAL 26.21 MG IVCONT ×3 (00:50→06:20)
[2023-06-06] MEDS: dexmedeTOMIDidine HCL/NS 400 MCG/100 ML INFUS..BTL 26.43 MCG IVCONT ×3 (01:42→13:23)
[2023-06-06] MEDS: Phenylephrine HCL 20 MG in 0.9 % Sodium Chloride 250 ML 79.91 MG IVCONT ×3 (03:06→09:28)
[2023-06-06 04:52] LABS: VBG Base Excess 6.7 mmol/L; VBG HCO3 30 mmol/L (22-26); VBG pCO2 39 mmHg; VBG pH 7.49 (7.32-7.43); VBG pO2 51 mmHg
[2023-06-06 04:57] LABS: Hematocrit 30.1 % (37.0-47.0); NRBC Pct Auto 0.1 /100WBC (0.0-0.2); PLT CLUMP 1
[2023-06-06 04:59] LABS: Hemoglobin 9.6 g/dl (12.0-16.0); Mean Corpuscular HGB Conc 31.9 g/dl (31.0-35.0); Mean Corpuscular Hemoglobin 30.9 pg (27.0-33.0); Mean Corpuscular Volume 96.8 fL (80.0-98.0); Mean Platelet Volume 10.8 fL (9.4-12.3); Red Blood Count 3.11 X10*6/uL (4.20-5.50); Red Cell Distribution Width 14.4 % (11.0-16.0)
[2023-06-06 05:02] LABS: Platelet Count 309 X10*3/uL (160-400); White Blood Count 21.4 X10*3/uL (4.8-10.8)
[2023-06-06 05:03] LABS: Venous Blood Gas Refer to POC result
[2023-06-06 05:14] LABS: Alanine Aminotransferase 73 U/L (0-31); Albumin Level 3.2 g/dL (3.5-5.0); Alkaline Phosphatase 86 U/L (39-117); Anion Gap 14 (12-20); Aspartate Amino Transferase 27 U/L (5-31); Bilirubin Total 0.6 mg/dL (0.0-1.0); Blood Urea Nitrogen 24 mg/dL (9-16); Calcium 8.3 mg/dL (8.4-10.2); Carbon Dioxide 26 mmol/L (22-29); Chloride 104 mmol/L (96-108); Creatinine Clr Calc Pharmacy 79.8; Estimated Glomerular Filt Rate > 60; Glucose Random 174 mg/dL (60-115); Magnesium 1.9 mg/dL (1.6-2.6); Phosphorus 2.3 mg/dL (2.7-4.5); Potassium 3.4 mmol/L (3.3-5.1); Sodium 141 mmol/L (135-145); Total Protein 6.1 g/dL (6.5-8.0)
[2023-06-06 05:38] LABS: Atypical Lymph Absolute Manual 0.2 x10*3/uL; Atypical Lymphs Percent Manual 1 % (0-6); Band Neutrophils Percent 9 % (3-5); Eosinophils Absolute Manual 0.4 X10*3/uL (0.0-0.4); Eosinophils Percent Manual 2 % (0-4); Lymphocytes Absolute Manual 1.9 X10*3/uL (1.2-4.9); Lymphocytes Percent Manual 9 % (20-40); Metamyelocytes Absolute 0.6 X10*3/uL; Metamyelocytes Percent 3 %; Monocytes Absolute Manual 1.7 X10*3/uL (0.1-1.2); Monocytes Percent Manual 8 % (2-11); Myelocytes Absolute 0.4 X10*/uL; Myelocytes Percent 2 %; Neutrophils Absolute Manual 16.1 X10*3/uL (2.0-8.3); Neutrophils Percent Manual 66 % (45-73)
[2023-06-06 05:41] LABS: Burr Cells 1+ (0-2) /OIF; Ovalocytes 1+ (5-14) /OIF; Polychromasia 1+ (0-2) /OIF; RBC Morphology NOTED; Schistocytes 1+ (0-2) /OIF; Toxic Granulation PRESENT
[2023-06-06 05:42] LABS: Large Platelet PRESENT; Platelet Estimate NORMAL (NORMAL); Platelet Morphology Comment NOTED
[2023-06-06] MEDS: Piperacillin Sodium/Tazobactam 4.5 GM in 0.9 % Sodium Chloride 100 ML IV ×4 (05:44→22:35)
[2023-06-06] MEDS: Thyroid,Pork 30 MG TABLET 120 MG PO (05:44)
[2023-06-06] MEDS: Acetaminophen 325 MG TABLET 975 MG PO (05:52)
[2023-06-06] MEDS: Insulin Lispro 100 UNIT/ML 3 ML VIAL SUBCUT ×2 (06:08→12:29)
[2023-06-06] MEDS: Potassium Phosphate/NS 15 MMOL/250 ML PLAST..BAG 62.5 MMOL IV ×2 (06:18→11:57)
[2023-06-06 06:31] LABS: Vancomycin Random 15.7 mcg/mL (15-20)
--- NOTE | 2023-06-06 07:27 | HE.PHANOTE ---
Re: Vanco Patient's trough returned at 15.7 mg/L. Renal function has declined. Continue current dose of 1,000 mg Q12H, with predicted AUC of 515 mg/L, and predicted trough of 18.2 mg/L. Next random trough to be drawn 06/06 at 0600.
[2023-06-06] MEDS: 0.9 % Sodium Chloride Flush 3 ML SYRINGE IVFLUSH ×2 (07:40→16:04)
[2023-06-06] MEDS: Cyanocobalamin (Vitamin B-12) 100 MCG TABLET PO (07:50)
[2023-06-06] MEDS: lamoTRIgine 100 MG TABLET PO (07:50)
[2023-06-06] MEDS: Chlorhexidine Gluc Oral Rinse 15 ML MOUTHWASH BUCCAL ×2 (07:50→13:58)
[2023-06-06] MEDS: Famotidine/PF 20 MG/2 ML VIAL IVPUSH (07:50)
[2023-06-06] MEDS: Aspirin Enteric Coated 81 MG TABLET.DR PO (07:50)
[2023-06-06] MEDS: ALPRAZolam 0.25 MG TABLET PO ×2 (07:50→13:58)
[2023-06-06] MEDS: QUEtiapine Fumarate 50 MG TABLET PO (07:50)
--- NOTE | 2023-06-06 08:03 | P.PNCA_ITS ---
Subjective Subjective Date of Service: 06/06/23 Principal diagnosis: Asystole, tachyarrhythmias, hypotension Interval history: Overnight patient has done a lot better. Oxygenation has improved gradually and currently on 30% FiO2 maintaining sats at 96%. Blood pressure is much improved on phenylephrine and off propofol. Currently on Precedex. Had a pause asystole with stimulation last night at 19:00. Since then she is done well. No further pausing. Has had overnight febrile episodes of 202. Review of Systems Review of Systems Yes unobtainable due to endotracheal tube Physical Exam Vital Signs: Last Vital Signs Temp 102 F H 06/06/23 07:53 Pulse 66 06/06/23 07:53 Resp 25 H 06/06/23 07:53 BP 133/61 06/06/23 07:53 Pulse Ox 94 06/06/23 07:53 O2 Del Method Mechanical Ventilation 06/06/23 07:53 O2 Flow Rate 70 06/02/23 19:53 FiO2 30 06/06/23 07:56 Oxygen Flow Rate 15 05/29/23 06:00 BMI result Body Mass Index 36.5 Const General: other (Sedated on vent) Nutritional Appearance: obese HEENT Head: Yes normocephalic and Yes atraumatic Neck Neck: Yes trachea midline and Yes supple Resp Effort & Inspection: other (On meant with diffusely reduced air entry) Cardio Jugular venous distension: no JVD Rate: tachycardic Heart sounds: S1 normal heart sound present, S2 normal heart sound present, no click, no gallops, no murmurs and no rubs Skin General skin exam: no rashes or lesions noted Neuro General: no focal motor deficits Extrem General: Yes no clubbing, cyanosis or edema Objective Labs and Meds 06/06/23 04:39 06/06/23 04:39 Lab results: Laboratory Results - last 24 hr 06/05/23 06/05/23 06/05/23 11:09 17:40 18:04 WBC RBC Hgb Hct MCV MCH MCHC RDW Plt Count MPV Immature Gran % (Auto) Neut % (Auto) Lymph % (Auto) [place] % (Auto) Eos % (Auto) Baso % (Auto) Lymph # (Auto) [place] # (Auto) Eos # (Auto) Baso # (Auto) Abs Immat Gran (auto) Absolute Neuts (auto) Absolute Nucleated RBC Nucleated RBC % (auto) Neutrophils % (Manual) Band Neutrophils % Lymphocytes % (Manual) Atypical Lymphs % (Man) Monocytes % (Manual) Eosinophils % (Manual) Metamyelocytes % Myelocytes % Abs Neuts (Manual) Lymphocytes # (Manual) Atyp Lymphs # (Manual) Monocytes # (Manual) Eosinophils # (Manual) Metamyelocytes # Myelocytes # Toxic Granulation Platelet Estimate Large Platelets Plt Morphology Comment RBC Morphology Polychromasia Ovalocytes [place] Cells Schistocytes VBG pH VBG pCO2 VBG pO2 VBG HCO3 VBG O2 Saturation VBG Base Excess Sodium Potassium Chloride Carbon Dioxide Anion Gap BUN Creatinine Estim Creat Clear Calc Estimated GFR POC Glucose 229 H 252 H Random Glucose Calcium Phosphorus Magnesium Total Bilirubin AST ALT Alkaline Phosphatase Total Protein Albumin Random Vancomycin 22.8 H 06/05/23 06/06/23 06/06/23 23:35 04:39 04:44 WBC 21.4 H RBC 3.11 L Hgb 9.6 L Hct 30.1 L MCV 96.8 MCH 30.9 MCHC 31.9 RDW 14.4 Plt Count 309 MPV 10.8 Immature Gran % (Auto) Cancelled Neut % (Auto) Cancelled Lymph % (Auto) Cancelled [place] % (Auto) Cancelled Eos % (Auto) Cancelled Baso % (Auto) Cancelled Lymph # (Auto) Cancelled [place] # (Auto) Cancelled Eos # (Auto) Cancelled Baso # (Auto) Cancelled Abs Immat Gran (auto) Cancelled Absolute Neuts (auto) Cancelled Absolute Nucleated RBC 0.030 H Nucleated RBC % (auto) 0.1 Neutrophils % (Manual) 66 Band Neutrophils % 9 H Lymphocytes % (Manual) 9 L Atypical Lymphs % (Man) 1 Monocytes % (Manual) 8 Eosinophils % (Manual) 2 Metamyelocytes % 3 Myelocytes % 2 Abs Neuts (Manual) 16.1 H Lymphocytes # (Manual) 1.9 Atyp Lymphs # (Manual) 0.2 Monocytes # (Manual) 1.7 H Eosinophils # (Manual) 0.4 Metamyelocytes # 0.6 Myelocytes # 0.4 Toxic Granulation PRESENT Platelet Estimate NORMAL Large Platelets PRESENT Plt Morphology Comment NOTED RBC Morphology NOTED Polychromasia 1+ (0-2) Ovalocytes 1+ (5-14) [place] Cells 1+ (0-2) Schistocytes 1+ (0-2) VBG pH 7.49 H VBG pCO2 39 VBG pO2 51 VBG HCO3 30 H VBG O2 Saturation 83.0 VBG Base Excess 6.7 Sodium 141 Potassium 3.4 Chloride 104 Carbon Dioxide 26 Anion Gap 14 BUN 24 H Creatinine 0.89 Estim Creat Clear Calc 79.8 Estimated GFR > 60 POC Glucose 172 H Random Glucose 174 H Calcium 8.3 L Phosphorus 2.3 L Magnesium 1.9 Total Bilirubin 0.6 AST 27 ALT 73 H Alkaline Phosphatase 86 Total Protein 6.1 L Albumin 3.2 L Random Vancomycin 06/06/23 06:03 WBC RBC Hgb Hct MCV MCH MCHC RDW Plt Count MPV Immature Gran % (Auto) Neut % (Auto) Lymph % (Auto) [place] % (Auto) Eos % (Auto) Baso % (Auto) Lymph # (Auto) [place] # (Auto) Eos # (Auto) Baso # (Auto) Abs Immat Gran (auto) Absolute Neuts (auto) Absolute Nucleated RBC Nucleated RBC % (auto) Neutrophils % (Manual) Band Neutrophils % Lymphocytes % (Manual) Atypical Lymphs % (Man) Monocytes % (Manual) Eosinophils % (Manual) Metamyelocytes % Myelocytes % Abs Neuts (Manual) Lymphocytes # (Manual) Atyp Lymphs # (Manual) Monocytes # (Manual) Eosinophils # (Manual) Metamyelocytes # Myelocytes # Toxic Granulation Platelet Estimate Large Platelets Plt Morphology Comment RBC Morphology Polychromasia Ovalocytes [place] Cells Schistocytes VBG pH VBG pCO2 VBG pO2 VBG HCO3 VBG O2 Saturation VBG Base Excess Sodium Potassium Chloride Carbon Dioxide Anion Gap BUN Creatinine Estim Creat Clear Calc Estimated GFR POC Glucose Random Glucose Calcium Phosphorus Magnesium Total Bilirubin AST ALT Alkaline Phosphatase Total Protein Albumin Random Vancomycin 15.7 Imaging Radiologist's impression: Impressions Chest X-Ray 06/05/23 10:34 IMPRESSION: CHEST: 1. Endotracheal tube terminates at 4 cm above the daya. 2. Increased diffuse bilateral airspace opacities and layering left pleural effusion. ABDOMEN: 1. Nonobstructive bowel gas pattern. 2. No significant stool burden. KUB X-Ray 06/05/23 10:34 IMPRESSION: CHEST: 1. Endotracheal tube terminates at 4 cm above the daya. 2. Increased diffuse bilateral airspace opacities and layering left pleural effusion. ABDOMEN: 1. Nonobstructive bowel gas pattern. 2. No significant stool burden. Chest X-Ray 06/05/23 14:45 IMPRESSION: No change in extensive multifocal consolidation with air bronchograms. Left pleural effusion. Progress Note: A&P Assessment and plan (1) Asystole: Status: Acute Assessment and Plan: Patient with a systolic episodes yesterday, still think that this is vaguely mediated, could be related to severe hypoxemia although less likely. Has not had any further episodes since being on phenylephrine and not having any significant tachyarrhythmias with no stimulation. Continue to monitor closely. Can use atropine with transcutaneous pacemaker as a backup. Does not require transvenous pacing. Continue supportive care. Question malignant cardio inhibitory vasovagal tendency for this patient. Low blood pressures improved of propofol and on phenylephrine. I think patient is still intravascularly volume depleted with redistributive shock and would therefore avoid Lasix and can use IV fluids although overall she has fluid overload but is mostly third-spacing. (2) Acute respiratory failure with hypoxia: Status: Acute Assessment and Plan: Acute respiratory failure with hypoxemia related to aspiration pneumonia. Oxygenation has gradually improved. Continue supportive care and respiratory support for now. Will follow with you Time Spent With Patient Time: Total time managing care of this patient today ____ minutes. Progress Note: Quality Stroke Does the patient have a stroke diagnosis?: No Procedures Date of Service Date of Service: 06/06/23
[2023-06-06] MEDS: Albumin Human 25 % 100 ML IV ×2 (09:17→10:12)
[2023-06-06] MEDS: dexmedeTOMIDidine HCL/NS 400 MCG/100 ML INFUS..BTL 15.86 MCG IVCONT (09:33)
--- NOTE | 2023-06-06 09:33 | P.PNCC_ITS ---
Subjective Subjective Date of Service: 06/06/23 Interval History: Still remains on ventilator, improving oxygen requirement down to 30% FiO2 Had a couple of episodes of pauses last evening Remains on phenylephrine for vasopressor support On propofol and Precedex for sedation and anxiolysis Critical Care Time (minutes): 40 Physical Exam 2 Vital Signs: Vital Signs: Last Vital Signs Temp 101.7 F H 06/06/23 08:52 Pulse 67 06/06/23 09:28 Resp 20 06/06/23 08:52 BP 107/46 L 06/06/23 09:28 Pulse Ox 94 06/06/23 08:52 O2 Del Method Mechanical Ventil ation 06/06/23 08:52 O2 Flow Rate 70 06/02/23 19:53 FiO2 30 06/06/23 08:52 Oxygen Flow Rate 15 05/29/23 06:00 BMI result Body Mass Index 36.5 Const: General: acute distress, confusion and ill appearing O rientation/consciousness: confusion HEENT: Head: Yes normal to inspection, Yes No palpable skull fracture present and Yes normocephalic Neck: Neck: Yes normal visual inspection and Yes no lymphadenopathy Resp: Other: Bilateral air entry equal, occasional crackles heard bilaterally left more than right Cardio: Other: Normal S1-S2 heard, no murmur GI: Other: Distended, no organomegaly Neuro: Other: Sedated on propofol, no focal deficits General: confusion Objective Data Labs 06/06/23 04:39 06/06/23 04:39 Labs: Laboratory Results - last 24 hr 06/05/23 06/05/23 06/05/23 11:09 17:40 18:04 WBC RBC Hgb Hct MCV MCH MCHC RDW Plt Count MPV Immature Gran % (Auto) Neut % (Auto) Lymph % (Auto) [place] % (Auto) Eos % (Auto) Baso % (Auto) Lymph # (Auto) [place] # (Auto) Eos # (Auto) Baso # (Auto) Abs Immat Gran (auto) Absolute Neuts (auto) Absolute Nucleated RBC Nucleated RBC % (auto) Neutrophils % (Manual) Band Neutrophils % Lymphocytes % (Manual) Atypical Lymphs % (Man) Monocytes % (Manual) Eosinophils % (Manual) Metamyelocytes % Myelocytes % Abs Neuts (Manual) Lymphocytes # (Manual) Atyp Lymphs # (Manual) Monocytes # (Manual) Eosinophils # (Manual) Metamyelocytes # Myelocytes # Toxic Granulation Platelet Estimate Large Platelets Plt Morphology Comment RBC Morphology Polychromasia Ovalocytes [place] Cells Schistocytes VBG pH VBG pCO2 VBG pO2 VBG HCO3 VBG O2 Saturation VBG Base Excess Sodium Potassium Chloride Carbon Dioxide Anion Gap BUN Creatinine Estim Creat Clear Calc Estimated GFR POC Glucose 229 H 252 H Random Glucose Calcium Phosphorus Magnesium Total Bilirubin AST ALT Alkaline Phosphatase Total Protein Albumin Random Vancomycin 22.8 H 06/05/23 06/06/23 06/06/23 23:35 04:39 04:44 WBC 21.4 H RBC 3.11 L Hgb 9.6 L Hct 30.1 L MCV 96.8 MCH 30.9 MCHC 31.9 RDW 14.4 Plt Count 309 MPV 10.8 Immature Gran % (Auto) Cancelled Neut % (Auto) Cancelled Lymph % (Auto) Cancelled Carbon % (Auto) Cancelled Eos % (Auto) Cancelled Baso % (Auto) Cancelled Lymph # (Auto) Cancelled Carbon # (Auto) Cancelled Eos # (Auto) Cancelled Baso # (Auto) Cancelled Abs Immat Gran (auto) Cancelled Absolute Neuts (auto) Cancelled Absolute Nucleated RBC 0.030 H Nucleated RBC % (auto) 0.1 Neutrophils % (Manual) 66 Band Neutrophils % 9 H Lymphocytes % (Manual) 9 L Atypical Lymphs % (Man) 1 Monocytes % (Manual) 8 Eosinophils % (Manual) 2 Metamyelocytes % 3 Myelocytes % 2 Abs Neuts (Manual) 16.1 H Lymphocytes # (Manual) 1.9 Atyp Lymphs # (Manual) 0.2 Monocytes # (Manual) 1.7 H Eosinophils # (Manual) 0.4 Metamyelocytes # 0.6 Myelocytes # 0.4 Toxic Granulation PRESENT Platelet Estimate NORMAL Large Platelets PRESENT Plt Morphology Comment NOTED RBC Morphology NOTED Polychromasia 1+ (0-2) Ovalocytes 1+ (5-14) [place] Cells 1+ (0-2) Schistocytes 1+ (0-2) VBG pH 7.49 H VBG pCO2 39 VBG pO2 51 VBG HCO3 30 H VBG O2 Saturation 83.0 VBG Base Excess 6.7 Sodium 141 Potassium 3.4 Chloride 104 Carbon Dioxide 26 Anion Gap 14 BUN 24 H Creatinine 0.89 Estim Creat Clear Calc 79.8 Estimated GFR > 60 POC Glucose 172 H Random Glucose 174 H Calcium 8.3 L Phosphorus 2.3 L Magnesium 1.9 Total Bilirubin 0.6 AST 27 ALT 73 H Alkaline Phosphatase 86 Total Protein 6.1 L Albumin 3.2 L Random Vancomycin 06/06/23 06:03 WBC RBC Hgb Hct MCV MCH MCHC RDW Plt Count MPV Immature Gran % (Auto) Neut % (Auto) Lymph % (Auto) [place] % (Auto) Eos % (Auto) Baso % (Auto) Lymph # (Auto) [place] # (Auto) Eos # (Auto) Baso # (Auto) Abs Immat Gran (auto) Absolute Neuts (auto) Absolute Nucleated RBC Nucleated RBC % (auto) Neutrophils % (Manual) Band Neutrophils % Lymphocytes % (Manual) Atypical Lymphs % (Man) Monocytes % (Manual) Eosinophils % (Manual) Metamyelocytes % Myelocytes % Abs Neuts (Manual) Lymphocytes # (Manual) Atyp Lymphs # (Manual) Monocytes # (Manual) Eosinophils # (Manual) Metamyelocytes # Myelocytes # Toxic Granulation Platelet Estimate Large Platelets Plt Morphology Comment RBC Morphology Polychromasia Ovalocytes [place] Cells Schistocytes VBG pH VBG pCO2 VBG pO2 VBG HCO3 VBG O2 Saturation VBG Base Excess Sodium Potassium Chloride Carbon Dioxide Anion Gap BUN Creatinine Estim Creat Clear Calc Estimated GFR POC Glucose Random Glucose Calcium Phosphorus Magnesium Total Bilirubin AST ALT Alkaline Phosphatase Total Protein Albumin Random Vancomycin 15.7 Microbiology Microbiology Results: Microbiology 06/02/23 11:28 Lung - Suctioned Gram Stain - Final 06/02/23 11:28 Lung - Suctioned Sputum Culture - Final 06/02/23 11:46 Blood - Venous Blood Culture - Preliminary No growth after 48 hours. 06/02/23 11:46 Blood - Venous Blood Culture - Preliminary No growth after 48 hours. 05/29/23 11:40 Blood - Venous Blood Culture - Final No growth after 5 days. 05/29/23 11:55 Blood - Venous Blood Culture - Final No growth after 5 days. 05/31/23 00:20 Sputum - Suctioned Gram Stain - Final 05/31/23 00:20 Sputum - Suctioned Sputum Culture - Final 05/27/23 13:59 Blood - Venous Blood Culture - Final No growth after 5 days. 05/27/23 13:55 Blood - Venous Blood Culture - Final Coag negative Staphylococcus 05/28/23 Unknown Urine clean catch - Urine chandler top Urine Culture - Final Progress Note: A&P Assessment and plan (1) Acute respiratory failure with hypoxia: Status: Acute (2) Acute pulmonary edema: Status: Acute (3) Acute congestive heart failure: Status: Acute (4) Type II diabetes mellitus: Status: Acute (5) Septic shock: Status: Acute Plan Ion Ambrosio is a 62-year-old lady currently very critically ill with past medical history of hypertension, diabetes, hyperlipidemia, obstructive sleep apnea and significant psychiatric history currently admitted in the ICU on ventilator support for what seems to be an aspiration pneumonia versus secondary MRSA pneumonia. She was also in septic shock needing vasopressor support, significant psychiatric history on multiple oral medication making titrating sedation the for an adequate mental status for extubation very difficult. She is also in atrial fibrillation with RVR with occasional sinus pauses. Neuro: on propofol and Precedex for sedation and anxiolysis, where vein propofol as tolerated keep the RASS about-1 to -2 Continue home psych medications including carbamazepine 400 mg b.i.d., Depakote 500 mg b.i.d., quetiapine 200 mg, closely monitoring QT intervals clozapine, her home dose is 100 mg b.i.d. + restarted at 25 mg daily currently increased to 50 mg daily on 06/05/2023 Patient has been getting benzodiazepines chronically at home, so continue Xanax 0.5 b.i.d to prevent withdrawals. Cardiac: Septic shock: Previously on Levophed for vasopressor support but change to phenylephrine due to tachycardia as, titrate to keep map above 65 mm Hg TTE in 2020 was normal, repeat TTE this admission showed grade 2 diastolic dysfunction Paroxysmal Atrial fibrillation with RVR: Marc Vasc score: 4, will start on therapeutic Lovenox if the atrial fibrillation persists Respiratory: Currently on PRVC mode FiO2 improving oxygen requirements, down to 40%, peep remains at 6. We will try the patient on pressor support for weaning trials Will get repeat chest x-ray to see if she has worsening pneumonia, her MRSA nares is positive. Antibiotic coverage broadened to vancomycin and Zosyn Ventilator management bundle Bronchodilators as needed, head and elevation to 30 degrees, chlorhexidine mouthwash, daily spontaneous awakening trials, daily spontaneous breathing trials GI: Admitted with diarrhea, CT of abdomen normal upon admission Had multiple bowel movements after starting sorbitol. Has bowel management system in place. continue senna, MiraLax and bisacodyl. Transaminitis: hepatitis panel negative, liver ultrasound showed history of cholecystectomy, slight ascites around the liver Renal: Good urine output, normal renal function We will do a bedside ultrasound and evaluate if the patient needs further diuresis, on the labs patient is alkalotic Endocrine: Blood sugars under control Sliding scale insulin as needed, required only about 6 units of sliding scale over the past 24 hours Lines: No central lines, only peripherals Recio catheter replaced as patient had uterine measured retention Prophylaxis: Lovenox and famotidine Quality Stroke Does the patient have a stroke diagnosis?: No VTE Prior VTE?: No VTE Risk Level:: Medical - moderate - high VTE Device Contraindication: Treatment Not Indicated VTE Drug Contraindication: N/A - Med Ordered
[2023-06-06] MEDS: vancomycin HCL 1,000 MG in 0.9 % Sodium Chloride 250 ML 270 MG IV ×2 (10:22→19:29)
[2023-06-06] MEDS: Valproic Acid (as Sodium Salt) 500 MG in Dextrose 5 % 50 ML 55 MG IV ×2 (11:03→21:01)
[2023-06-06 11:56] LABS: Glucose, Whole Blood 182 mg/dL (60-115)
[2023-06-06] MEDS: Phenylephrine HCL 20 MG in 0.9 % Sodium Chloride 250 ML 39.96 MG IVCONT ×2 (12:40→18:36)
--- NOTE | 2023-06-06 13:10 | PC.NURSE ---
Addendum entered by Carolyn Alvarez RN 06/06/23 18:24: 13:30 Per MD, Pt placed on Bipap 14/8, 70% due to SaO2 86-87% on HFNC 45L 80%. Per , tube feedings paused at this time. Addendum entered by Carolyn Alvarez RN 06/06/23 14:47: 13:30 Pt on HFNC 45L and Fio2 increased to 80% for SaO2 goal >88% 13:35 Per MD pt placced on Bipap 14/8, 70% rate of 12. Pt tolerating well. SaO2 93%. RR elevated 30-35. Per MD obtain EKG and give xyprexa 10mg IM. Pt refused EKG, pulling off leads. MD notified. QTc measured on tele 434 ms. Pt agreeable to IM injection, 10mg zyprexa given. RR 30. Original Note: Assumed care of patient 07:00 09:26 Per sedation vacation started. Propofol gtt off and Precedex gtt titrated down to 0.6. MD changed PEEP on ventillator from 8.0 to 5.0. ACVC+ 18/370/5.0/30% 10:02 Pt opened eyes spontaneously, alert, followed simple commands. MD notified and to bedside. Pt able to hold head up >5 seconds. +cough and + gag MD placed pt on vent settings 5/5.0 40%. Pt tolerated well and responds to cueing to slow down breathing. Volumes 260-360, max 650. 10:45 pt extubated per MD with RT and RN at bedside. Placed on 10L oxymask. SaO2 92-93% 13:10 Pt SaO2 decreased to 85-86%. Pt assessed. No work of breathing, no accessory muscle use. Pt states no changes in sensation of breathing. FiO2 increased, oxymask 15L. RT notified at to bedside. Pt placed on HFNC 45L 70%
[2023-06-06] MEDS: OLANZapine 10 MG VIAL IM (14:14)
--- NOTE | 2023-06-06 15:53 | P.CNPS_ITS ---
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 receiving psychiatric treatment for paranoia, labile mood. She initially came to ED for diarrhea, abdominal pain, low BP. These symptoms resolved and then it appears pt had aspiration and developed acute hypoxia and then septic shock. She has been in ICU for several days. PLAN 1. continue depakote 500mg IV BID, check depakote level 2. start prolixin 2.5mg PO TID. will d/c seroquel. continue clozaril. continue to monitor EKG, maintain Qtc<500ms, K>4, Mg>2 3. will try to keep regimen simplified to avoid polypharmacy without clear therapeutic benefit. 4. psych to continue to follow. Total time managing care of this patient today ____ minutes.
[2023-06-06] MEDS: dexmedeTOMIDidine HCL/NS 400 MCG/100 ML INFUS..BTL 31.71 MCG IVCONT (16:30)
[2023-06-06] MEDS: Midazolam HCl/PF 2 MG/2 ML VIAL 0.5 MG IVPUSH (16:38)
[2023-06-06 18:01] LABS: Glucose, Whole Blood 157 mg/dL (60-115)
[2023-06-06] MEDS: dexmedeTOMIDidine HCL/NS 400 MCG/100 ML INFUS..BTL 39.64 MCG IVCONT ×2 (19:09→21:28)
[2023-06-06] MEDS: Albuterol Sulfate (0.083%) 2.5 MG/3 ML VIAL.NEB INHALE (20:02)
[2023-06-06 20:21] LABS: VBG Base Excess 3.4 mmol/L; VBG HCO3 24 mmol/L (22-26); VBG pCO2 27 mmHg; VBG pH 7.56 (7.32-7.43); VBG pO2 89 mmHg
[2023-06-06] MEDS: Enoxaparin Sodium 40 MG/0.4 ML SYRINGE SUBCUT (21:01)
[2023-06-06] MEDS: dilTIAZem HCL 50 MG/10 ML VIAL 10 MG IVPUSH (21:03)
[2023-06-06] MEDS: Midazolam HCl/PF 2 MG/2 ML VIAL 1 MG IVPUSH (21:03)
[2023-06-06] MEDS: Metoprolol Tartrate 5 MG/5 ML VIAL IVPUSH (21:57)
[2023-06-06] MEDS: Enoxaparin Sodium 60 MG/0.6 ML SYRINGE SUBCUT (22:09)
[2023-06-06] MEDS: Furosemide 40 MG/4 ML VIAL IVPUSH (22:35)
[2023-06-06 23:03] LABS: Venous Blood Gas Refer to POC result
[2023-06-06 23:48] LABS: Glucose, Whole Blood 171 mg/dL (60-115)
[2023-06-06] MEDS: Acetaminophen 1,000 MG/100 ML PIGGYBACK 400 MG IV (23:48)
[2023-06-06] MEDS: Morphine Sulfate 2 MG/ML CARTRIDGE IVPUSH (23:59)
[2023-06-07] VITALS (48 sets, daily range): BP systolic 80–153; BP diastolic 38–66; PULSE 68–131; RESP 17–43; TEMP 36.5–39.4; O2SAT 89–95
[2023-06-07] MEDS: dexmedeTOMIDidine HCL/NS 400 MCG/100 ML INFUS..BTL 39.64 MCG IVCONT
[2023-06-07] MEDS: dexmedeTOMIDidine HCL/NS 400 MCG/100 ML INFUS..BTL 34.35 MCG IVCONT (02:44)
[2023-06-07] MEDS: Phenylephrine HCL 20 MG in 0.9 % Sodium Chloride 250 ML 39.96 MG IVCONT ×3 (04:15→16:35)
[2023-06-07 05:11] LABS: Vancomycin Random 15.8 mcg/mL (15-20)
[2023-06-07 05:14] LABS: Creatinine Clr Calc Pharmacy 83.6; Estimated Glomerular Filt Rate > 60
[2023-06-07 05:57] LABS: Glucose, Whole Blood 154 mg/dL (60-115)
[2023-06-07] MEDS: Metoprolol Tartrate 5 MG/5 ML VIAL 2.5 MG IVPUSH ×3 (05:58→17:52)
[2023-06-07] MEDS: Piperacillin Sodium/Tazobactam 4.5 GM in 0.9 % Sodium Chloride 100 ML IV ×4 (05:58→23:08)
[2023-06-07 06:02] LABS: MANUAL DIFF FLAG NO
[2023-06-07 06:03] LABS: Basophils Absolute Auto 0.1 X10*3/uL (0.0-0.2); Basophils Percent Auto 0.3 % (0-2); Eosinophils Absolute Auto 0.1 X10*3/uL (0.0-0.4); Eosinophils Percent Auto 0.6 % (0-4); Hematocrit 26.4 % (37.0-47.0); Hemoglobin 8.6 g/dl (12.0-16.0); Imm Gran Abs Auto 0.68 X10*3/uL (0.00-0.03); Imm Gran Pct Auto 3.1 % (0.0-0.4); Lymphocytes Absolute Auto 1.9 X10*3/uL (1.2-4.9); Lymphocytes Percent Auto 8.7 % (20-40); Mean Corpuscular HGB Conc 32.6 g/dl (31.0-35.0); Mean Corpuscular Hemoglobin 30.7 pg (27.0-33.0); Mean Corpuscular Volume 94.3 fL (80.0-98.0); Monocytes Absolute Auto 0.7 X10*3/uL (0.1-1.2); Monocytes Percent Auto 3.4 % (2-11); Neutrophils Absolute Auto 18.4 x10*3/uL (2.0-8.3); Neutrophils Percent Auto 83.9 % (45-73); Platelet Count 308 X10*3/uL (160-400); Red Cell Distribution Width 14.6 % (11.0-16.0); White Blood Count 21.9 X10*3/uL (4.8-10.8)
[2023-06-07] MEDS: dexmedeTOMIDidine HCL/NS 400 MCG/100 ML INFUS..BTL 29.07 MCG IVCONT ×3 (06:05→13:18)
[2023-06-07 06:20] LABS: Alanine Aminotransferase 51 U/L (0-31); Albumin Level 3.4 g/dL (3.5-5.0); Alkaline Phosphatase 79 U/L (39-117); Anion Gap 12 (12-20); Aspartate Amino Transferase 35 U/L (5-31); Bilirubin Total 0.8 mg/dL (0.0-1.0); Blood Urea Nitrogen 22 mg/dL (9-16); Calcium 8.3 mg/dL (8.4-10.2); Carbon Dioxide 28 mmol/L (22-29); Chloride 108 mmol/L (96-108); Creatinine Clr Calc Pharmacy 91.1; Estimated Glomerular Filt Rate > 60; Glucose Random 170 mg/dL (60-115); Potassium 3.2 mmol/L (3.3-5.1); Sodium 145 mmol/L (135-145); Total Protein 6.3 g/dL (6.5-8.0)
--- NOTE | 2023-06-07 06:50 | HE.PHANOTE ---
RE: Vanco Patient's renal function is improving. Trough returned at 15.8, pt is therapeutic. Continue current dose of 1,000mg Q12H, with predicted AUC 454, and predicted trough of 15.4. Next trough to be drawn 06/07 at 1800.
--- NOTE | 2023-06-07 06:56 | HO.SKINPHOTO ---
Location: Left gluteal fold Category: Pressure Injury Stage: Deep Tissue Injury Length: 4.5 cm Width: 3cm Depth: --- Location: Right buttock Category: Pressure Injury Stage: Deep Tissue Injury Wound consult ordered
[2023-06-07] MEDS: 0.9 % Sodium Chloride Flush 3 ML SYRINGE IVFLUSH ×3 (07:50→23:35)
[2023-06-07] MEDS: vancomycin HCL 1,000 MG in 0.9 % Sodium Chloride 250 ML 270 MG IV ×2 (07:51→19:47)
[2023-06-07] MEDS: Famotidine/PF 20 MG/2 ML VIAL IVPUSH (07:51)
[2023-06-07] MEDS: Potassium Chloride/H20 10 MEQ/100 ML PIGGYBACK 100 MEQ IV ×2 (08:18→09:19)
[2023-06-07 08:19] LABS: Neut%MD 81.1 %; WBCANC 19.7 X10*3/uL
[2023-06-07] MEDS: fentaNYL citrate/PF 100 MCG/2 ML VIAL 25 MCG IVPUSH ×3 (08:48→14:57)
[2023-06-07 09:36] LABS: ABG Base Excess 0.7 mmol/L; ABG HCO3 25 mmol/L (22-26); ABG pCO2 43 mmHg (32-45); ABG pH 7.38 (7.35-7.45); ABG pO2 83 mmHg (83-108)
[2023-06-07] MEDS: HYDROmorphone HCl 1 MG/ML SYRINGE IVPUSH (09:50)
--- NOTE | 2023-06-07 10:37 | PM.CCPN ---
Subjective Subjective Date of Service: 06/07/23 Interval History: Extubated yesterday but remains very fragile and not tolerating liberation from ventilator well. She had to be placed on a BiPAP support still had multiple episodes of desaturations, tachypneic and dyspneic. She is on Precedex drip, receiving Dilaudid and Versed pushes as needed to control agitation. Psych has seen the patient, readjusted her medications but continues to be very anxious and agitated. She is also in atrial fibrillation with RVR, on phenylephrine for vasopressor support Critical Care Time (minutes): 40 Physical Exam Vital Signs: Vital Signs: Last Vital Signs Temp 101.2 F H 06/07/23 09:00 Pulse 114 H 06/07/23 10:23 Resp 41 H 06/07/23 10:00 BP 136/52 L 06/07/23 10:23 Pulse Ox 92 06/07/23 10:00 O2 Del Method BiPAP 06/07/23 10:00 O2 Flow Rate 10 06/06/23 13:00 FiO2 70 06/07/23 10:00 Oxygen Flow Rate 15 05/29/23 06:00 BMI result Body Mass Index 36.5 Const: General: acute distress, anxious, combative, ill appearing and patient obtunded Orientation/consciousness: patient obtunded HEENT: Head: Yes normal to inspection and Yes normocephalic Eyes: General: appearance normal, both eyes and all related structures Visual Morfin: normal visual morfin by confrontation Resp: Other: Bilateral air entry equal, bilateral occasional crackles heard Cardio: Other: Normal S1-S2 heard, no murmur GI: Other: Soft, distended, nontender has multiple bowel movements : General: Yes bladder normal to inspection and Yes bladder normal to palpation Bimanual exam- vagina & uterus: bladder normal to palpation Skin: Other: Skin okay, no rashes Neuro: Other: Agitated, often confused, no focal deficits General: patient obtunded Objective Data Labs 06/07/23 05:57 06/07/23 05:57 Labs: Laboratory Results - last 24 hr 06/06/23 06/06/23 06/06/23 11:52 17:58 20:14 WBC RBC Hgb Hct MCV MCH MCHC RDW Plt Count MPV Immature Gran % (Auto) Neut % (Auto) Lymph % (Auto) [place] % (Auto) Eos % (Auto) Baso % (Auto) Lymph # (Auto) [place] # (Auto) Eos # (Auto) Baso # (Auto) Abs Immat Gran (auto) Absolute Neuts (auto) Absolute Nucleated RBC Nucleated RBC % (auto) O2 Saturation ABG pH at Pt Temp ABG pCO2 at Pt Temp ABG pO2 at Pt Temp ABG HCO3 ABG Base Excess (Actual) VBG pH 7.56 H VBG pCO2 27 VBG pO2 89 VBG HCO3 24 VBG O2 Saturation 99.0 VBG Base Excess 3.4 Sodium Potassium Chloride Carbon Dioxide Anion Gap BUN Creatinine Estim Creat Clear Calc Estimated GFR POC Glucose 182 H 157 H Random Glucose Calcium Total Bilirubin AST ALT Alkaline Phosphatase Total Protein Albumin Random Vancomycin 06/06/23 06/07/23 06/07/23 23:36 04:43 05:53 WBC RBC Hgb Hct MCV MCH MCHC RDW Plt Count MPV Immature Gran % (Auto) Neut % (Auto) Lymph % (Auto) [place] % (Auto) Eos % (Auto) Baso % (Auto) Lymph # (Auto) [place] # (Auto) Eos # (Auto) Baso # (Auto) Abs Immat Gran (auto) Absolute Neuts (auto) Absolute Nucleated RBC Nucleated RBC % (auto) O2 Saturation ABG pH at Pt Temp ABG pCO2 at Pt Temp ABG pO2 at Pt Temp ABG HCO3 ABG Base Excess (Actual) VBG pH VBG pCO2 VBG pO2 VBG HCO3 VBG O2 Saturation VBG Base Excess Sodium Potassium Chloride Carbon Dioxide Anion Gap BUN Creatinine 0.85 Estim Creat Clear Calc 83.6 Estimated GFR > 60 POC Glucose 171 H 154 H Random Glucose Calcium Total Bilirubin AST ALT Alkaline Phosphatase Total Protein Albumin Random Vancomycin 15.8 06/07/23 06/07/23 06/07/23 05:57 08:08 09:26 WBC 21.9 H RBC 2.80 L Hgb 8.6 L Hct 26.4 L MCV 94.3 MCH 30.7 MCHC 32.6 RDW 14.6 Plt Count 308 MPV 10.0 Immature Gran % (Auto) 3.1 H Neut % (Auto) 83.9 H Lymph % (Auto) 8.7 L [place] % (Auto) 3.4 Eos % (Auto) 0.6 Baso % (Auto) 0.3 Lymph # (Auto) 1.9 [place] # (Auto) 0.7 Eos # (Auto) 0.1 Baso # (Auto) 0.1 Abs Immat Gran (auto) 0.68 H Absolute Neuts (auto) 18.4 H 16.0 H Absolute Nucleated RBC 0.000 Nucleated RBC % (auto) 0.0 O2 Saturation 95.0 ABG pH at Pt Temp 7.38 ABG pCO2 at Pt Temp 43 ABG pO2 at Pt Temp 83 ABG HCO3 25 ABG Base Excess (Actual) 0.7 VBG pH VBG pCO2 VBG pO2 VBG HCO3 VBG O2 Saturation VBG Base Excess Sodium 145 Potassium 3.2 L Chloride 108 Carbon Dioxide 28 Anion Gap 12 BUN 22 H Creatinine 0.78 Estim Creat Clear Calc 91.1 Estimated GFR > 60 POC Glucose Random Glucose 170 H Calcium 8.3 L Total Bilirubin 0.8 AST 35 H ALT 51 H Alkaline Phosphatase 79 Total Protein 6.3 L Albumin 3.4 L Random Vancomycin Microbiology Microbiology Results: Microbiology 06/02/23 11:28 Lung - Suctioned Gram Stain - Final 06/02/23 11:28 Lung - Suctioned Sputum Culture - Final 06/02/23 11:46 Blood - Venous Blood Culture - Preliminary No growth after 48 hours. 06/02/23 11:46 Blood - Venous Blood Culture - Preliminary No growth after 48 hours. 05/29/23 11:40 Blood - Venous Blood Culture - Final No growth after 5 days. 05/29/23 11:55 Blood - Venous Blood Culture - Final No growth after 5 days. 05/31/23 00:20 Sputum - Suctioned Gram Stain - Final 05/31/23 00:20 Sputum - Suctioned Sputum Culture - Final 05/27/23 13:59 Blood - Venous Blood Culture - Final No growth after 5 days. 05/27/23 13:55 Blood - Venous Blood Culture - Final Coag negative Staphylococcus 05/28/23 Unknown Urine clean catch - Urine chandler top Urine Culture - Final Progress Note: A&P Assessment and plan (1) Septic shock: Status: Acute (2) Pulmonary aspiration: Status: Acute (3) Acute pulmonary edema: Status: Acute (4) Acute respiratory failure with hypoxia: Status: Acute (5) Acute congestive heart failure: Status: Acute Plan Ion Ambrosio is a 62-year-old lady currently very critically ill with past medical history of hypertension, diabetes, hyperlipidemia, obstructive sleep apnea and significant psychiatric history currently admitted in the ICU on ventilator support for what seems to be an aspiration pneumonia versus secondary MRSA pneumonia. She was also in septic shock needing vasopressor support, significant psychiatric history on multiple oral medication making titrating sedation the for an adequate mental status for extubation very difficult; she also has a very large abdomen leading to further restriction in ventilation. She was constipated but responded well to sorbitol and currently having multiple bowel movements. She is also in atrial fibrillation with RVR with occasional sinus pauses. Neuro: On Precedex for anxiolysis, receiving as needed doses of Dilaudid and Versed. I would prefer to avoid Versed if possible. Significant psych history deconditioning the patient. Psych on board, continue lamotrigine, valproate and clozapine as per psych, closely monitoring QT intervals Patient has been getting benzodiazepines chronically at home, so continue Xanax 0.5 b.i.d to prevent withdrawals. Cardiac: Septic shock: Previously on Levophed for vasopressor support but change to phenylephrine due to tachycardia as, titrate to keep map above 65 mm Hg TTE in 2020 was normal, repeat TTE this admission showed grade 2 diastolic dysfunction Paroxysmal Atrial fibrillation with RVR: Marc Vasc score: 4, on therapeutic Lovenox Had multiple episodes of sinus pauses, longest pause for up to 40 seconds. Would not be starting amiodarone 4 RVR episodes due to pauses. Respiratory: Extubated 2 days ago but not tolerating liberation from ventilator well due to significant anxiety agitation and very large abdomen restricting ventilation Currently on BiPAP support, requiring 100% oxygen, 14/8 and PF ratio is are poor 86. We will try to control her anxiety and agitation further, at we will get her on high-flow if tolerated during the day. Use BiPAP during the night. Has significant B-lines on lung ultrasound along with dilated RV and IVC is. We will aggressively diurese her with IV Lasix today GI: Admitted with diarrhea, CT of abdomen normal upon admission She was constipated with a very distended abdomen, distended descending colon but Had multiple bowel movements after starting sorbitol. Has bowel management system in place. We will hold off MiraLax as it might further worsen distention, we will do as needed bisacodyl Transaminitis: hepatitis panel negative, liver ultrasound showed history of cholecystectomy, slight ascites around the liver Renal: Good urine output, normal renal function Patient has significant metabolic alkalosis per day, we will add acetazolamide to reduce alkalosis while we diurese the patient Endocrine: Blood sugars under control Sliding scale insulin as needed, required only about 6 units of sliding scale over the past 24 hours Infectious disease: Patient is on vancomycin and Zosyn, cultures have remained negative. Despite being on vancomycin and Zosyn for a significant duration the patient's white count went up yesterday to 21,000 and is persistently febrile. Her febrile episodes was initiated without due to Precedex and other oral medications but persistence of leukocytosis is concerning. Consult infectious disease. Lines: No central lines, only peripherals Recio catheter replaced as patient had uterine measured retention Prophylaxis: Lovenox and famotidine Bedside echo showed normal LV systolic function, dilated RV, IVC 2.2 cm dilated. This might be partially aggravated by positive pressure ventilation Bedside ultrasound of the lungs shows significant B-lines in all the spaces, we will diurese the patient with IV Lasix. Quality Stroke Does the patient have a stroke diagnosis?: No VTE Prior VTE?: No VTE Risk Level:: Medical - moderate - high VTE Device Contraindication: Treatment Not Indicated VTE Drug Contraindication: N/A - Med Ordered
[2023-06-07 11:23] LABS: Glucose, Whole Blood 177 mg/dL (60-115)
[2023-06-07] MEDS: Valproic Acid (as Sodium Salt) 500 MG in Dextrose 5 % 50 ML 55 MG IV ×2 (11:29→21:41)
[2023-06-07] MEDS: Furosemide 100 MG/10 ML VIAL 80 MG IVPUSH (11:29)
[2023-06-07] MEDS: acetaZOLAMIDE sodium 500 MG VIAL IVPUSH (11:29)
[2023-06-07] MEDS: Enoxaparin Sodium 100 MG/ML SYRINGE SUBCUT ×2 (11:29→21:56)
--- NOTE | 2023-06-07 12:52 | PM.PNCARD ---
Subjective Subjective Date of Service: 06/07/23 Principal diagnosis: Asystole, tachyarrhythmias, hypotension Interval history: Extubated yesterday. Still having high respiratory rate and high requirement of FiO2 on BiPAP. Can not be able to be get an off BiPAP. Intensive care team thinks of abdominal distension as well as psychiatric issue causing her to have respiratory issues. Also noted to have pulmonary edema probably from positive pressure ventilation. Currently having sinus tachycardia. Overnight asystole. With mobility she was having runs of atrial fibrillation. Given metoprolol. Currently sinus tachycardia. Currently remains on phenylephrine. Review of Systems Review of Systems Yes Unobtainable due to mental status Physical Exam Vital Signs: Last Vital Signs Temp 101.2 F H 06/07/23 09:00 Pulse 99 06/07/23 12:00 Resp 36 H 06/07/23 12:49 BP 96/44 L 06/07/23 12:00 Pulse Ox 91 L 06/07/23 12:00 O2 Del Method BiPAP 06/07/23 12:00 O2 Flow Rate 10 06/06/23 13:00 FiO2 80 06/07/23 12:00 Oxygen Flow Rate 15 05/29/23 06:00 BMI result Body Mass Index 36.5 Const General: acute distress, anxious, combative, ill appearing and patient obtunded Orientation/consciousness: patient obtunded HEENT Head: Yes normal to inspection and Yes normocephalic Eyes General: appearance normal, both eyes and all related structures Visual Zafar: normal visual zafar by confrontation Resp Other: Bilateral air entry equal, bilateral occasional crackles heard Cardio Other: Normal S1-S2 heard, no murmur GI Other: Soft, distended, nontender has multiple bowel movements General: Yes bladder normal to inspection and Yes bladder normal to palpation Bimanual exam- vagina & uterus: bladder normal to palpation Skin Other: Skin okay, no rashes Neuro Other: Agitated, often confused, no focal deficits General: patient obtunded Objective Labs and Meds 06/07/23 05:57 06/07/23 05:57 Lab results: Laboratory Results - last 24 hr 06/06/23 06/06/23 06/06/23 17:58 20:14 23:36 WBC RBC Hgb Hct MCV MCH MCHC RDW Plt Count MPV Immature Gran % (Auto) Neut % (Auto) Lymph % (Auto) [place] % (Auto) Eos % (Auto) Baso % (Auto) Lymph # (Auto) [place] # (Auto) Eos # (Auto) Baso # (Auto) Abs Immat Gran (auto) Absolute Neuts (auto) Absolute Nucleated RBC Nucleated RBC % (auto) O2 Saturation ABG pH at Pt Temp ABG pCO2 at Pt Temp ABG pO2 at Pt Temp ABG HCO3 ABG Base Excess (Actual) VBG pH 7.56 H VBG pCO2 27 VBG pO2 89 VBG HCO3 24 VBG O2 Saturation 99.0 VBG Base Excess 3.4 Sodium Potassium Chloride Carbon Dioxide Anion Gap BUN Creatinine Estim Creat Clear Calc Estimated GFR POC Glucose 157 H 171 H Random Glucose Calcium Total Bilirubin AST ALT Alkaline Phosphatase Total Protein Albumin Random Vancomycin 06/07/23 06/07/23 06/07/23 04:43 05:53 05:57 WBC 21.9 H RBC 2.80 L Hgb 8.6 L Hct 26.4 L MCV 94.3 MCH 30.7 MCHC 32.6 RDW 14.6 Plt Count 308 MPV 10.0 Immature Gran % (Auto) 3.1 H Neut % (Auto) 83.9 H Lymph % (Auto) 8.7 L [place] % (Auto) 3.4 Eos % (Auto) 0.6 Baso % (Auto) 0.3 Lymph # (Auto) 1.9 [place] # (Auto) 0.7 Eos # (Auto) 0.1 Baso # (Auto) 0.1 Abs Immat Gran (auto) 0.68 H Absolute Neuts (auto) 18.4 H Absolute Nucleated RBC 0.000 Nucleated RBC % (auto) 0.0 O2 Saturation ABG pH at Pt Temp ABG pCO2 at Pt Temp ABG pO2 at Pt Temp ABG HCO3 ABG Base Excess (Actual) VBG pH VBG pCO2 VBG pO2 VBG HCO3 VBG O2 Saturation VBG Base Excess Sodium 145 Potassium 3.2 L Chloride 108 Carbon Dioxide 28 Anion Gap 12 BUN 22 H Creatinine 0.85 0.78 Estim Creat Clear Calc 83.6 91.1 Estimated GFR > 60 > 60 POC Glucose 154 H Random Glucose 170 H Calcium 8.3 L Total Bilirubin 0.8 AST 35 H ALT 51 H Alkaline Phosphatase 79 Total Protein 6.3 L Albumin 3.4 L Random Vancomycin 15.8 0406/07/23 06/07/23 08:08 09:26 11:14 WBC RBC Hgb Hct MCV MCH MCHC RDW Plt Count MPV Immature Gran % (Auto) Neut % (Auto) Lymph % (Auto) [place] % (Auto) Eos % (Auto) Baso % (Auto) Lymph # (Auto) [place] # (Auto) Eos # (Auto) Baso # (Auto) Abs Immat Gran (auto) Absolute Neuts (auto) 16.0 H Absolute Nucleated RBC Nucleated RBC % (auto) O2 Saturation 95.0 ABG pH at Pt Temp 7.38 ABG pCO2 at Pt Temp 43 ABG pO2 at Pt Temp 83 ABG HCO3 25 ABG Base Excess (Actual) 0.7 VBG pH VBG pCO2 VBG pO2 VBG HCO3 VBG O2 Saturation VBG Base Excess Sodium Potassium Chloride Carbon Dioxide Anion Gap BUN Creatinine Estim Creat Clear Calc Estimated GFR POC Glucose 177 H Random Glucose Calcium Total Bilirubin AST ALT Alkaline Phosphatase Total Protein Albumin Random Vancomycin Progress Note: A&P Assessment and plan (1) Asystole: Status: Acute Assessment and Plan: Asystole in the setting of aggressive suctioning. She had multiple episodes. No clinical recurrence. No indication for transvenous pacing at this point time. Most likely related to vagal mechanism. (2) Paroxysmal atrial fibrillation: Status: Acute Assessment and Plan: Paroxysmal atrial fibrillation related to multiple issues including acute respiratory distress, anxiety/catecholamine inotropic stimulation. Agree with metoprolol around the clock. If possible can also use amiodarone. Continue to treat underlying pulmonary condition aggressively. Treat her anxiety aggressively. (3) Acute respiratory failure with hypoxia: Status: Acute Assessment and Plan: Persistent acute respiratory failure with hypoxemia with diffuse pneumonic process related to aspiration. She could have a component of congestive heart failure given that she is fluid overloaded and is off positive pressure ventilation. Can continue gentle diuresis. Strict intake and output chart needs to be pursued. Continue supportive care. High risk for recurrent requirement for mechanical ventilation. Will sign of the case. Thank you for allowing me to partake in her care Time Spent With Patient Time: Total time managing care of this patient today ____ minutes. Progress Note: Quality Stroke Does the patient have a stroke diagnosis?: No Procedures Date of Service Date of Service: 06/07/23
--- NOTE | 2023-06-07 15:10 | PC.NURSE ---
Temperature 102.9. MD notified. Per MD cooling blanket applied and ice packs to axillary areas. PRN Tylenol given.
[2023-06-07] MEDS: Acetaminophen 325 MG TABLET 975 MG PO (15:22)
[2023-06-07] MEDS: ALPRAZolam 0.25 MG TABLET PO ×2 (15:23→21:44)
[2023-06-07] MEDS: dexmedeTOMIDidine HCL/NS 400 MCG/100 ML INFUS..BTL 23.78 MCG IVCONT (16:36)
[2023-06-07 17:26] LABS: Glucose, Whole Blood 173 mg/dL (60-115)
[2023-06-07 20:31] LABS: VBG Base Excess 4.8 mmol/L; VBG HCO3 28 mmol/L (22-26); VBG pCO2 37 mmHg; VBG pH 7.48 (7.32-7.43); VBG pO2 59 mmHg
[2023-06-07] MEDS: dexmedeTOMIDidine HCL/NS 400 MCG/100 ML INFUS..BTL 21.14 MCG IVCONT (20:53)
[2023-06-07 20:58] LABS: Alanine Aminotransferase 45 U/L (0-31); Albumin Level 3.3 g/dL (3.5-5.0); Alkaline Phosphatase 75 U/L (39-117); Anion Gap 11 (12-20); Aspartate Amino Transferase 29 U/L (5-31); Bilirubin Total 0.6 mg/dL (0.0-1.0); Blood Urea Nitrogen 24 mg/dL (9-16); Calcium 8.1 mg/dL (8.4-10.2); Carbon Dioxide 28 mmol/L (22-29); Chloride 110 mmol/L (96-108); Creatinine Clr Calc Pharmacy 98.7; Estimated Glomerular Filt Rate > 60; Glucose Random 173 mg/dL (60-115); Potassium 3.3 mmol/L (3.3-5.1); Sodium 146 mmol/L (135-145); Total Protein 6.2 g/dL (6.5-8.0)
[2023-06-07 21:16] LABS: MANUAL DIFF FLAG NO
[2023-06-07 21:23] LABS: Basophils Absolute Auto 0.1 X10*3/uL (0.0-0.2); Basophils Percent Auto 0.4 % (0-2); Eosinophils Absolute Auto 0.1 X10*3/uL (0.0-0.4); Eosinophils Percent Auto 0.4 % (0-4); Hematocrit 26.9 % (37.0-47.0); Hemoglobin 8.2 g/dl (12.0-16.0); Imm Gran Abs Auto 0.51 X10*3/uL (0.00-0.03); Imm Gran Pct Auto 2.8 % (0.0-0.4); Lymphocytes Absolute Auto 2.7 X10*3/uL (1.2-4.9); Lymphocytes Percent Auto 14.5 % (20-40); Mean Corpuscular HGB Conc 30.5 g/dl (31.0-35.0); Mean Corpuscular Hemoglobin 30.1 pg (27.0-33.0); Mean Corpuscular Volume 98.9 fL (80.0-98.0); Mean Platelet Volume 10.2 fL (9.4-12.3); Monocytes Absolute Auto 0.8 X10*3/uL (0.1-1.2); Monocytes Percent Auto 4.2 % (2-11); Neutrophils Absolute Auto 14.4 x10*3/uL (2.0-8.3); Neutrophils Percent Auto 77.7 % (45-73); Platelet Count 297 X10*3/uL (160-400); Red Blood Count 2.72 X10*6/uL (4.20-5.50); Red Cell Distribution Width 14.9 % (11.0-16.0); White Blood Count 18.5 X10*3/uL (4.8-10.8)
--- NOTE | 2023-06-07 21:23 | PM.CCN ---
Critical Care Event Note Summary Date of Service: 06/07/23 Code activated: Yes Narrative: This case had a high probability of a clinically significant, sudden, or life threatening deterioration of this patient's condition which required my full and direct attention, intervention and personal management. Critical Care Time (minutes): 45 Comment: I was alerted by the patient's nurse that the patient when bradycardic in a sudden manner with a a couple short pauses and subsequently the patient developed a pause lasting over 30 seconds, the patient became unconscious, not breathing, pulseless, and asystolic on the monitor; lips were blue, eyes rolled back, CPR was started immediately within about 30-40 seconds of CPR; complete ROSC obtained. Patient was immediately placed on BiPAP, phenylephrine was discontinued and the patient was started on dopamine at 5 micrograms/kilogram, transcutaneous conected to pacing device. Set up to Demand synchronized pacing with a target of 70 beats per minute, will start at 20 milliamps increase until synchrony prn. Full set of laboratories was done including a troponin all of which were unremarkable with the exception of an elevated BNP of about a 1000 which is a lot higher than what it has been. Since then the patient had a couple episodes of rapid a fib as well as bradycardia; Albumin used to mantain her BP. Patient has had a few episodes of nonsustained bradycardia while on Dopamine, BP mantaining above 120 systolic with a map >65 and asymptomatic. Revised Assessment: Post Cardiac Arrest due to Tachy fabian arrhtymia ? SSS Unlikely this is Vasovagal as previously mentioned as the patient is not longer on Levophed, is not intubated, not on Precedex. Will require further Cardiology Eval as the patient likely needs a Pacer Implanted. Continue with supportive care, pacer pads on and dopamine gtt. Patient will need further diuresis (lasix not given last night due to hypotension). 0500 pt's HR in the 140-150s, bp ok Stopped Dopamine for now; pacer pads on. Patient is calmed and does ok with reassurance alone. Critical care time used for critical evaluation of this patient, diagnosis, treatment and coordination of care, review her records and documentation TOTAL CRITICAL CARE TIME 45 MIN . discussion and coordination with consultants, completely separate from any procedures performed. Patient's care was discussed in detail with Dr. Wolf. He is aware of all the above as well as the plan of care for this patient.
[2023-06-07] MEDS: DOPamine HCL/D5W 400 MG/250 ML PLAST..BAG 19.82 MG IVCONT (21:26)
[2023-06-07 21:27] LABS: Lactic Acid 1.2 mmol/L (0.5-2.0)
[2023-06-07 21:36] LABS: B Type Natriuretic Peptide 1062 pg/mL (<100)
[2023-06-07 21:38] LABS: Alanine Aminotransferase 46 U/L (0-31); Albumin Level 3.3 g/dL (3.5-5.0); Alkaline Phosphatase 76 U/L (39-117); Anion Gap 12 (12-20); Aspartate Amino Transferase 30 U/L (5-31); Bilirubin Total 0.7 mg/dL (0.0-1.0); Blood Urea Nitrogen 24 mg/dL (9-16); Calcium 8.2 mg/dL (8.4-10.2); Carbon Dioxide 30 mmol/L (22-29); Chloride 109 mmol/L (96-108); Creatinine Clr Calc Pharmacy 96.1; Estimated Glomerular Filt Rate > 60; Glucose Random 183 mg/dL (60-115); Magnesium 2.1 mg/dL (1.6-2.6); Phosphorus 2.9 mg/dL (2.7-4.5); Potassium 3.3 mmol/L (3.3-5.1); Sodium 148 mmol/L (135-145); Total Protein 6.4 g/dL (6.5-8.0); Troponin-I High Sensitivity 4.2 ng/L (<3.5-17.0)
[2023-06-07] MEDS: lamoTRIgine 100 MG TABLET PO (21:44)
[2023-06-07] MEDS: cloZAPine ODT 25 MG TAB.RAPDIS 50 MG PO (21:44)
[2023-06-07 21:52] LABS: TSH reflex Free T4 1.95 uIU/mL (0.32-4.0)
[2023-06-07 22:32] LABS: Venous Blood Gas Refer to POC result
[2023-06-07] MEDS: Albumin Human 25 % 100 ML 200 ML IV (23:04)
[2023-06-07] MEDS: Potassium Chloride Packet 20 MEQ PACKET 40 MEQ PO (23:11)
[2023-06-07] MEDS: Albumin Human 25 % 100 ML 400 ML IV (23:31)
[2023-06-08] VITALS (37 sets, daily range): BP systolic 90–148; BP diastolic 46–67; PULSE 89–138; RESP 19–39; TEMP 27.3–38.4; O2SAT 88–100; BMI 36.5
[2023-06-08 00:17] LABS: Glucose, Whole Blood 168 mg/dL (60-115)
[2023-06-08] MEDS: Albumin Human 25 % 100 ML IV ×2 (01:10→02:06)
[2023-06-08] MEDS: fentaNYL citrate/PF 100 MCG/2 ML VIAL 25 MCG IVPUSH (04:19)
[2023-06-08 05:08] LABS: VBG Base Excess 1.7 mmol/L; VBG HCO3 28 mmol/L (22-26); VBG pCO2 54 mmHg; VBG pH 7.32 (7.32-7.43); VBG pO2 49 mmHg
[2023-06-08 05:10] LABS: Venous Blood Gas Refer to POC result
[2023-06-08] MEDS: Piperacillin Sodium/Tazobactam 4.5 GM in 0.9 % Sodium Chloride 100 ML IV ×4 (05:33→23:33)
[2023-06-08] MEDS: Thyroid,Pork 30 MG TABLET 120 MG PO (05:41)
[2023-06-08 05:48] LABS: MANUAL DIFF FLAG NO
[2023-06-08 05:51] LABS: Basophils Percent Auto 0.3 % (0-2); Eosinophils Absolute Auto 0.2 X10*3/uL (0.0-0.4); Hematocrit 25.8 % (37.0-47.0); Hemoglobin 7.9 g/dl (12.0-16.0); Imm Gran Abs Auto 0.34 X10*3/uL (0.00-0.03); Imm Gran Pct Auto 2.2 % (0.0-0.4); Lymphocytes Absolute Auto 2.3 X10*3/uL (1.2-4.9); Lymphocytes Percent Auto 14.4 % (20-40); Mean Corpuscular HGB Conc 30.6 g/dl (31.0-35.0); Mean Corpuscular Hemoglobin 30.9 pg (27.0-33.0); Mean Corpuscular Volume 100.8 fL (80.0-98.0); Mean Platelet Volume 10.2 fL (9.4-12.3); Monocytes Absolute Auto 0.7 X10*3/uL (0.1-1.2); Monocytes Percent Auto 4.4 % (2-11); Neutrophils Absolute Auto 12.2 x10*3/uL (2.0-8.3); Neutrophils Percent Auto 77.7 % (45-73); Platelet Count 256 X10*3/uL (160-400); Red Blood Count 2.56 X10*6/uL (4.20-5.50); Red Cell Distribution Width 14.8 % (11.0-16.0); White Blood Count 15.7 X10*3/uL (4.8-10.8)
--- NOTE | 2023-06-08 05:54 | PC.NURSE ---
2045 patient went asystole, code blue was called; please see code blue sheet. ROSC was achieved after approximately 30 seconds of CPR. Patient was placed back on Bipap and a dopamine drip was started per VIRGINIA García. Patient remained attached to Zoll pacer pads. Dopamine was titrated under the direction of VIRGINIA García.
[2023-06-08 06:06] LABS: Alanine Aminotransferase 40 U/L (0-31); Albumin Level 4.2 g/dL (3.5-5.0); Alkaline Phosphatase 66 U/L (39-117); Anion Gap 18 (12-20); Aspartate Amino Transferase 28 U/L (5-31); Bilirubin Total 0.9 mg/dL (0.0-1.0); Blood Urea Nitrogen 30 mg/dL (9-16); Calcium 8.4 mg/dL (8.4-10.2); Carbon Dioxide 24 mmol/L (22-29); Chloride 109 mmol/L (96-108); Creatinine Clr Calc Pharmacy 86.7; Estimated Glomerular Filt Rate > 60; Glucose Random 174 mg/dL (60-115); Potassium 3.3 mmol/L (3.3-5.1); Sodium 148 mmol/L (135-145)
[2023-06-08] MEDS: Potassium Chloride Packet 20 MEQ PACKET 40 MEQ PO (06:36)
[2023-06-08] MEDS: Valproic Acid (as Sodium Salt) 500 MG in Dextrose 5 % 50 ML 55 MG IV ×2 (07:47→21:17)
[2023-06-08] MEDS: vancomycin HCL 1,000 MG in 0.9 % Sodium Chloride 250 ML 270 MG IV (07:48)
[2023-06-08] MEDS: lamoTRIgine 100 MG TABLET PO ×2 (07:48→21:21)
[2023-06-08] MEDS: Famotidine/PF 20 MG/2 ML VIAL IVPUSH (07:48)
[2023-06-08] MEDS: Aspirin Enteric Coated 81 MG TABLET.DR PO (07:48)
[2023-06-08] MEDS: Cyanocobalamin (Vitamin B-12) 100 MCG TABLET PO (07:49)
[2023-06-08] MEDS: 0.9 % Sodium Chloride Flush 3 ML SYRINGE IVFLUSH ×3 (07:49→23:38)
--- NOTE | 2023-06-08 07:49 | P.PNCC_ITS ---
Subjective Subjective Date of Service: 06/08/23 Critical Care Time (minutes): 90 Physical Exam 2 Vital Signs: Vital Signs: Last Vital Signs Temp 98.8 F 06/08/23 07:00 Pulse 117 H 06/08/23 07:00 Resp 38 H 06/08/23 07:18 BP 123/57 L 06/08/23 07:00 Pulse Ox 90 L 06/08/23 07:00 O2 Del Method BiPAP 06/08/23 07:00 O2 Flow Rate 10 06/06/23 13:00 FiO2 70 06/08/23 07:00 Oxygen Flow Rate 15 05/29/23 06:00 BMI result Body Mass Index 36.5 Const: General: cooperative, healthy appearing, comfortable, no acute distress, well developed, alert, awake and Physically active O rientation/consciousness: oriented to person HEENT: Head: Yes normal to inspection, Yes normocephalic and Yes atraumatic Eyes: General: appearance normal, both eyes and all related structures Neck: Neck: Yes normal visual inspection, Yes full ROM, Yes no meningeal signs, Yes trachea midline and Yes supple Chest: Chest palpation & inspection: normal inspection of the chest Resp: Other: decreased breath sounds throughout; some appreciable rhonchi; no appreciable rales, wheezing Cardio: Rate: regular rate Rhythm: regular rhythm GI: Other: distended, though soft, compressible Inspection: Yes normal to inspection, No Abdominal wall edema and No distended Palpation (GI): Soft to palpation, not firm, nontender, no guarding and not rigid : External Female Exam: normal external appearance Skin: General skin exam: no rashes or lesions noted Neuro: General: oriented to person, tone normal, moves all extremities, no meningeal signs and no focal motor deficits Extrem: Other: appreciable anasarca General: Yes normal to inspection, Yes full ROM and Yes capillary refill normal Psych: Appearance: grossly normal Objective Data Labs 06/08/23 04:54 06/08/23 04:54 Labs: Laboratory Results - last 24 hr 06/07/23 06/07/23 06/07/23 08:08 09:26 11:14 WBC RBC Hgb Hct MCV MCH MCHC RDW Plt Count MPV Immature Gran % (Auto) Neut % (Auto) Lymph % (Auto) [place] % (Auto) Eos % (Auto) Baso % (Auto) Lymph # (Auto) [place] # (Auto) Eos # (Auto) Baso # (Auto) Abs Immat Gran (auto) Absolute Neuts (auto) 16.0 H Absolute Nucleated RBC Nucleated RBC % (auto) O2 Saturation 95.0 ABG pH at Pt Temp 7.38 ABG pCO2 at Pt Temp 43 ABG pO2 at Pt Temp 83 ABG HCO3 25 ABG Base Excess (Actual) 0.7 VBG pH VBG pCO2 VBG pO2 VBG HCO3 VBG O2 Saturation VBG Base Excess Sodium Potassium Chloride Carbon Dioxide Anion Gap BUN Creatinine Estim Creat Clear Calc Estimated GFR POC Glucose 177 H Random Glucose Lactic Acid Calcium Phosphorus Magnesium Total Bilirubin AST ALT Alkaline Phosphatase Troponin I High Sens B-Natriuretic Peptide Total Protein Albumin TSH 06/07/23 06/07/23 06/07/23 17:21 20:19 20:22 WBC RBC Hgb Hct MCV MCH MCHC RDW Plt Count MPV Immature Gran % (Auto) Neut % (Auto) Lymph % (Auto) [place] % (Auto) Eos % (Auto) Baso % (Auto) Lymph # (Auto) [place] # (Auto) Eos # (Auto) Baso # (Auto) Abs Immat Gran (auto) Absolute Neuts (auto) Absolute Nucleated RBC Nucleated RBC % (auto) O2 Saturation ABG pH at Pt Temp ABG pCO2 at Pt Temp ABG pO2 at Pt Temp ABG HCO3 ABG Base Excess (Actual) VBG pH 7.48 H VBG pCO2 37 VBG pO2 59 VBG HCO3 28 H VBG O2 Saturation 91.0 VBG Base Excess 4.8 Sodium 146 H Potassium 3.3 Chloride 110 H Carbon Dioxide 28 Anion Gap 11 L BUN 24 H Creatinine 0.72 Estim Creat Clear Calc 98.7 Estimated GFR > 60 POC Glucose 173 H Random Glucose 173 H Lactic Acid Calcium 8.1 L Phosphorus Magnesium Total Bilirubin 0.6 AST 29 ALT 45 H Alkaline Phosphatase 75 Troponin I High Sens B-Natriuretic Peptide Total Protein 6.2 L Albumin 3.3 L TSH 06/07/23 06/07/23 06/08/23 21:04 21:04 00:12 WBC 18.5 H RBC 2.72 L Hgb 8.2 L Hct 26.9 L MCV 98.9 H MCH 30.1 MCHC 30.5 L RDW 14.9 Plt Count 297 MPV 10.2 Immature Gran % (Auto) 2.8 H Neut % (Auto) 77.7 H Lymph % (Auto) 14.5 L [place] % (Auto) 4.2 Eos % (Auto) 0.4 Baso % (Auto) 0.4 Lymph # (Auto) 2.7 [place] # (Auto) 0.8 Eos # (Auto) 0.1 Baso # (Auto) 0.1 Abs Immat Gran (auto) 0.51 H Absolute Neuts (auto) 14.4 H Absolute Nucleated RBC 0.000 Nucleated RBC % (auto) 0.0 O2 Saturation ABG pH at Pt Temp ABG pCO2 at Pt Temp ABG pO2 at Pt Temp ABG HCO3 ABG Base Excess (Actual) VBG pH VBG pCO2 VBG pO2 VBG HCO3 VBG O2 Saturation VBG Base Excess Sodium 148 H Potassium 3.3 Chloride 109 H Carbon Dioxide 30 H Anion Gap 12 BUN 24 H Creatinine 0.74 Estim Creat Clear Calc 96.1 Estimated GFR > 60 POC Glucose 168 H Random Glucose 183 H Lactic Acid 1.2 Calcium 8.2 L Phosphorus 2.9 Magnesium 2.1 Total Bilirubin 0.7 AST 30 ALT 46 H Alkaline Phosphatase 76 Troponin I High Sens 4.2 D B-Natriuretic Peptide 1062 H Total Protein 6.4 L Albumin 3.3 L TSH 1.95 Cancelled 06/08/23 06/08/23 06/08/23 04:54 04:59 05:36 WBC 15.7 H RBC 2.56 L Hgb 7.9 L Hct 25.8 L MCV 100.8 H MCH 30.9 MCHC 30.6 L RDW 14.8 Plt Count 256 MPV 10.2 Immature Gran % (Auto) 2.2 H Neut % (Auto) 77.7 H Lymph % (Auto) 14.4 L [place] % (Auto) 4.4 Eos % (Auto) 1.0 Baso % (Auto) 0.3 Lymph # (Auto) 2.3 [place] # (Auto) 0.7 Eos # (Auto) 0.2 Baso # (Auto) 0.0 Abs Immat Gran (auto) 0.34 H Absolute Neuts (auto) 12.2 H Absolute Nucleated RBC 0.000 Nucleated RBC % (auto) 0.0 O2 Saturation ABG pH at Pt Temp ABG pCO2 at Pt Temp ABG pO2 at Pt Temp ABG HCO3 ABG Base Excess (Actual) VBG pH 7.32 VBG pCO2 54 VBG pO2 49 VBG HCO3 28 H VBG O2 Saturation 75.0 VBG Base Excess 1.7 Sodium 148 H Potassium 3.3 Chloride 109 H Carbon Dioxide 24 Anion Gap 18 BUN 30 H Creatinine 0.82 Estim Creat Clear Calc 86.7 Estimated GFR > 60 POC Glucose Random Glucose 174 H Lactic Acid Calcium 8.4 Phosphorus Magnesium Total Bilirubin 0.9 AST 28 ALT 40 H Alkaline Phosphatase 66 Troponin I High Sens 3.0 B-Natriuretic Peptide Total Protein 7.0 Albumin 4.2 TSH Microbiology Microbiology Results: Microbiology 06/02/23 11:46 Blood - Venous Blood Culture - Final No growth after 5 days. 06/02/23 11:46 Blood - Venous Blood Culture - Final No growth after 5 days. 06/02/23 11:28 Lung - Suctioned Gram Stain - Final 06/02/23 11:28 Lung - Suctioned Sputum Culture - Final 05/29/23 11:40 Blood - Venous Blood Culture - Final No growth after 5 days. 05/29/23 11:55 Blood - Venous Blood Culture - Final No growth after 5 days. 05/31/23 00:20 Sputum - Suctioned Gram Stain - Final 05/31/23 00:20 Sputum - Suctioned Sputum Culture - Final 05/27/23 13:59 Blood - Venous Blood Culture - Final No growth after 5 days. 05/27/23 13:55 Blood - Venous Blood Culture - Final Coag negative Staphylococcus 05/28/23 Unknown Urine clean catch - Urine chandler top Urine Culture - Final Progress Note: A&P Assessment and plan (1) Acute respiratory failure with hypoxia: Status: Acute (2) Bipolar disorder: Status: Acute (3) Asystole: Status: Acute Plan Patient is a 62 Y F with metabolic syndrome, non-insulin dependent diabetes mellitus, hypothyroidism, obstructive sleep apnea non-compliant w/ CPAP, bipolar disease, iinitially presenting to emergency department on 05/26 w/ diarrhea, found to have dehydration, electrolylte abnormalities; on 05/29, developed hypoxia, likely d/t volume overload, transferred ICU; ICU course c/b symptomatic bradycardia on 06/06 PM N: no acute issues CV: symptomatic bradycardia on 06/06, likely d/t medications, possible vagal episode; discontinue dexmedetomidine gtt and judicious use of QTc-prolonging medications; daily EKG for QTc monitoring R: hypoxic respiratory failure, likely d/t volume overload; obstructive sleep apnea; non-invasive positive pressure ventilation as needed GI: no acute issues : no acute issues H: no acute issues ID: possible pneumonia; empiric vancomycin, zoysn E: no acute issues; non-insulin dependent diabetes mellitus, hypothyroidism P: bipolar disease, judicious use of psychotropic medications Quality Stroke Does the patient have a stroke diagnosis?: No VTE Prior VTE?: No VTE Risk Level:: Medical - moderate - high VTE Device Contraindication: Treatment Not Indicated VTE Drug Contraindication: N/A - Med Ordered
--- NOTE | 2023-06-08 07:57 | ECG_ITS ---
Test Reason : qtc check Blood Pressure : / mmHG Vent. Rate : 116 BPM Atrial Rate : 337 BPM P-R Int : 000 ms QRS Dur : 104 ms QT Int : 306 ms P-R-T Axes : 020 096 -44 degrees QTc Int : 425 ms Atrial flutter with variable A-V block vs coarse atrial fibrillation Rightward axis Abnormal ECG When compared with ECG of 05-JUN-2023 16:34, rhythm change Referred By: Chanel Coker Electronically Signed By:ERASTO GUTHRIE
[2023-06-08] MEDS: Furosemide 200 MG in 0.9 % Sodium Chloride 80 ML IVCONT (08:13)
[2023-06-08 09:09] LABS: TSH reflex Free T4 0.54 uIU/mL (0.32-4.0)
[2023-06-08 09:28] LABS: VBG HCO3 24 mmol/L (22-26); VBG pCO2 51 mmHg; VBG pH 7.28 (7.32-7.43); VBG pO2 101 mmHg
[2023-06-08 09:29] LABS: Venous Blood Gas Refer to POC result
--- NOTE | 2023-06-08 09:47 | MHC.CLN ---
F/U PT EXTUBATED AND RECEIVING BIPAP DISCUSSED AT ROUNDS WITH MD SANTOS CURRENTLY ON HOLD IF TF TO RE-START; RE-START GLUCERNA AT MAX GOAL RATE 40ML/HR WITH 30ML PROSOURCE BID AND 240ML FREE WATER FLUSHES Q 6 HRS TO PROVIDE 1080KCALS, 70G PROTEIN (1.1G/KG), 1779ML TOTAL FREE WATER FROM FORMULA AND FLUSHES (29ML/KG) MONITOR TOLERANCE, RESIDUALS AND LYTES FOLLOWING WITH TEAM
[2023-06-08 10:07] LABS: Valproate 22.6 mcg/mL (50.0-100.0)
[2023-06-08] MEDS: Norepinephrine Bitartrate/D5W 8 MG/250 ML PLAST..BAG 9.91 MG IV (11:27)
[2023-06-08] MEDS: Rocuronium Bromide 50 MG/5 ML VIAL 100 MG IVPUSH (11:37)
[2023-06-08] MEDS: Etomidate 20 MG/10 ML VIAL 10 MG IVPUSH (11:37)
[2023-06-08] MEDS: EPINEPHrine 1 MG/10 ML SYRINGE IVPUSH (11:39)
[2023-06-08] MEDS: Sodium Bicarbonate 8.4% 50 MEQ/50 ML SYRINGE IVPUSH (11:40)
[2023-06-08] MEDS: Calcium Chloride 1 GM/10 ML SYRINGE IVPUSH (11:40)
[2023-06-08] MEDS: propofoL 1,000 MG/100 ML VIAL 19.03 MG IVCONT ×3 (11:40→21:32)
--- NOTE | 2023-06-08 12:23 | W.PM.CCHP ---
Procedures Date of Service Date of Service: 06/08/23 Intubation Intubation Comments: attempts to pre-oxygenate patient with HFNC, NRB, and bag-mask achieved saturation 90% at best; oropharynx with copious dried secretions, obstructing view of vocal cords; patient saturation decreased to 70%; first attempt aborted; patient was bagged with oral airway, though unable to increase saturation; patient appeared sinus tachycardia, though no pulse appreciated; CPR initiated; total 2 rounds of CPR, 1 round of epinephrine, bicarbonate, calcium, with ROSC; of note, patient successfully intubated in second attempt during CPR; however, patient difficult to ventilate; emergent bronchoscopy performed, which was grossly unrevealing Consent for Procedure: Emergent-no informed consent obtained Time out performed: Yes Sedative: etomidate Mg given: 10 Paralytic: rocuronium Mg given: 100 Laryngoscope: Georgi ET tube size: 7.5 ET tube uncuffed: Yes Tube secured depth (cm): 24 Tube secured location: teeth Tube placement confirmation: visualized tube passing through cords, equal breath sounds bilaterally and confirmation by capnometry Patient tolerated procedure: other Intubation complications: other
--- NOTE | 2023-06-08 12:35 | W.PM.CCHP ---
Procedures Date of Service Date of Service: 06/08/23 Bronchoscopy Bronchoscopy Comments: patient sedated w/ propofol; broncoscopy used to appreciate all segments to the level of the subsegmental bronchi; scant, clear secretions, easily suctioned; no appreciable lesions Consent for Procedure: Emergent-no informed consent obtained Indication: other (hypoxia, c/f mucus plugging) Route: endotracheal tube Monitor: EKG and pulse oximetry Complications: none
[2023-06-08] MEDS: Enoxaparin Sodium 100 MG/ML SYRINGE SUBCUT ×2 (12:38→21:21)
--- NOTE | 2023-06-08 12:38 | P.PNCC_ITS ---
Critical Care Event Note Summary Date of Service: 06/08/23 Code activated: Yes Narrative: patient w/ another episode of reported asystole for 10 seconds, resolved w/o intervention; however, patient remained unresponsive and hypoxic to 70s; decision made to intubate; attempts to pre-oxygenate patient with HFNC, NRB, and bag-mask achieved saturation 90% at best; RSI performed w/ etomidate, rocuronium; oropharynx with copious dried secretions, obstructing view of vocal cords; patient saturation decreased to 70%; first attempt aborted; patient was bagged with oral airway, though unable to increase saturation; patient appeared sinus tachycardia, though no pulse appreciated, thus was in PEA; CPR initiated; total 2 rounds of CPR performed, 1 round of epinephrine, bicarbonate, calcium given, with ROSC; of note, patient successfully intubated in second attempt d uring CPR; however, patient difficult to ventilate; emergent bronchoscopy performed, which was grossly unrevealing Critical Care Time (minutes): 60
[2023-06-08 12:53] LABS: Glucose, Whole Blood 226 mg/dL (60-115)
[2023-06-08] MEDS: Insulin Lispro 100 UNIT/ML 3 ML VIAL SUBCUT (13:29)
--- NOTE | 2023-06-08 13:46 | P.ACPN_ITS ---
Advanced Care Planning Note Advanced Care Planning Note Discussed with: family member(s) Time spent (in minutes): 30 Narrative: I called and introduced myself to Ms. Townsend's brother. I encouraged him and his sister, who are both Ms. Townsend's healthcare proxy, to come to the hospital, as I was concerned Ms. Townsend is clinically unstable. We spoke of Ms. Townsend's hospital and ICU course. I offered any clarifications. Ms. Townsend's brother brought Ms. Townsend's living will, which states that she would not want life-sustaining measures, including CPR and ventilatory support. We discussed changing Ms. Kruegers code status to DNR. We also discussed comfort-focused care. Ms. Townsend's brother and sister would like to have more time to discuss with family before transititioning Ms. Townsend to comfort- focused care. I encouraged them to do so, and that we will speak again tomorrow. Problems Discussed (1) Acute respiratory failure with hypoxia: (2) Bipolar disorder: (3) Asystole:
[2023-06-08 14:07] LABS: MANUAL DIFF FLAG NO
[2023-06-08 14:13] LABS: Basophils Percent Auto 0.2 % (0-2); Eosinophils Percent Auto 0.1 % (0-4); Hematocrit 24.4 % (37.0-47.0); Hemoglobin 7.5 g/dl (12.0-16.0); Imm Gran Abs Auto 0.59 X10*3/uL (0.00-0.03); Imm Gran Pct Auto 3.3 % (0.0-0.4); Lymphocytes Absolute Auto 1.4 X10*3/uL (1.2-4.9); Lymphocytes Percent Auto 7.7 % (20-40); Mean Corpuscular HGB Conc 30.7 g/dl (31.0-35.0); Mean Corpuscular Hemoglobin 30.9 pg (27.0-33.0); Mean Corpuscular Volume 100.4 fL (80.0-98.0); Mean Platelet Volume 10.4 fL (9.4-12.3); Monocytes Absolute Auto 0.7 X10*3/uL (0.1-1.2); Monocytes Percent Auto 4.1 % (2-11); NRBC Pct Auto 0.1 /100WBC (0.0-0.2); Neutrophils Absolute Auto 15.2 x10*3/uL (2.0-8.3); Neutrophils Percent Auto 84.6 % (45-73); Platelet Count 284 X10*3/uL (160-400); Red Blood Count 2.43 X10*6/uL (4.20-5.50); Red Cell Distribution Width 15.1 % (11.0-16.0)
--- NOTE | 2023-06-08 14:22 | MHC.CM.PN ---
Pt remains in ICU in guarded condition: pt had an episode of asystole last evening requiring approximately 30 seconds of CPR. Currently she is on pressor support and BiPAP. held goals of care w/pt's siblings. Pt is now a DNR and could transition to [employer] once family has considered all options. Pt from [facility]. CM to follow for d/c planning needs.
--- NOTE | 2023-06-08 14:29 | PC.NURSE ---
Pt had been on BIPAP during the morning. RT attempted to place pt on HFNC- pt did not tolerated became hypoxic, bradycardic, and unresponsive. RT started to manually bag pt at 11:35. Dr Coker at bedside- prep to intubate/ stevo put on pt. 10mg etomidate and 100mg Mp administered. Pt intubated at 11:38. Pt noted to have no pulse. CPR started. ROSC achieve after 2 rounds of CPR. Levophed gtt and propofol gtt started per MD order.
[2023-06-08 14:33] LABS: VBG Base Excess 2.6 mmol/L; VBG HCO3 29 mmol/L (22-26); VBG pCO2 56 mmHg; VBG pH 7.32 (7.32-7.43); VBG pO2 58 mmHg
[2023-06-08 14:33] LABS: Venous Blood Gas Refer to POC result
[2023-06-08 15:04] LABS: Alanine Aminotransferase 42 U/L (0-31); Albumin Level 3.8 g/dL (3.5-5.0); Alkaline Phosphatase 68 U/L (39-117); Anion Gap 16 (12-20); Aspartate Amino Transferase 33 U/L (5-31); Bilirubin Total 0.7 mg/dL (0.0-1.0); Blood Urea Nitrogen 35 mg/dL (9-16); Calcium 9.1 mg/dL (8.4-10.2); Carbon Dioxide 27 mmol/L (22-29); Chloride 111 mmol/L (96-108); Creatinine Clr Calc Pharmacy 70.4; Estimated Glomerular Filt Rate 55; Glucose Random 228 mg/dL (60-115); Magnesium 2.2 mg/dL (1.6-2.6); Phosphorus 2.9 mg/dL (2.7-4.5); Potassium 3.8 mmol/L (3.3-5.1); Sodium 150 mmol/L (135-145); Total Protein 6.6 g/dL (6.5-8.0)
[2023-06-08 18:14] LABS: Glucose, Whole Blood 145 mg/dL (60-115)
[2023-06-08 18:43] LABS: Vancomycin Random 21.7 mcg/mL (15-20)
--- NOTE | 2023-06-08 18:52 | HE.PHANOTE ---
RE: vanco Trough on 06/07 came back at 21.7; patient's renal function did worsen. Decreased dose to 750mg Q12H with predicted trough of 16 mg/L, AUC of 448 mg/L. Next level to be drawn 06/08 @2100.
[2023-06-08 20:22] LABS: Venous Blood Gas Refer to POC result
[2023-06-08 20:23] LABS: VBG HCO3 29 mmol/L (22-26); VBG pCO2 31 mmHg; VBG pH 7.57 (7.32-7.43); VBG pO2 157 mmHg
[2023-06-08] MEDS: cloZAPine ODT 25 MG TAB.RAPDIS 50 MG PO (21:21)
[2023-06-08] MEDS: vancomycin HCL 750 MG in 0.9 % Sodium Chloride 250 ML 265 MG IV (23:18)
[2023-06-09] VITALS (33 sets, daily range): BP systolic 101–157; BP diastolic 38–87; PULSE 85–125; RESP 10–30; TEMP 34.6–38.1; O2SAT 89–100; BMI 39.9
[2023-06-09 00:07] LABS: Glucose, Whole Blood 139 mg/dL (60-115)
[2023-06-09] MEDS: propofoL 1,000 MG/100 ML VIAL 19.03 MG IVCONT ×2 (01:38→06:40)
[2023-06-09 05:19] LABS: VBG HCO3 35 mmol/L (22-26); VBG pCO2 41 mmHg; VBG pH 7.53 (7.32-7.43); VBG pO2 43 mmHg
[2023-06-09] MEDS: Piperacillin Sodium/Tazobactam 4.5 GM in 0.9 % Sodium Chloride 100 ML IV ×4 (05:37→22:45)
[2023-06-09] MEDS: Thyroid,Pork 30 MG TABLET 120 MG PO (05:38)
[2023-06-09 06:09] LABS: MANUAL DIFF FLAG NO
[2023-06-09 06:17] LABS: Basophils Percent Auto 0.3 % (0-2); Eosinophils Absolute Auto 0.3 X10*3/uL (0.0-0.4); Hematocrit 23.1 % (37.0-47.0); Hemoglobin 7.3 g/dl (12.0-16.0); Imm Gran Abs Auto 0.23 X10*3/uL (0.00-0.03); Imm Gran Pct Auto 1.7 % (0.0-0.4); Lymphocytes Absolute Auto 1.9 X10*3/uL (1.2-4.9); Lymphocytes Percent Auto 14.3 % (20-40); Mean Corpuscular HGB Conc 31.6 g/dl (31.0-35.0); Mean Corpuscular Hemoglobin 31.2 pg (27.0-33.0); Mean Corpuscular Volume 98.7 fL (80.0-98.0); Mean Platelet Volume 10.7 fL (9.4-12.3); Monocytes Absolute Auto 0.6 X10*3/uL (0.1-1.2); Monocytes Percent Auto 4.8 % (2-11); Neutrophils Absolute Auto 10.1 x10*3/uL (2.0-8.3); Neutrophils Percent Auto 76.9 % (45-73); Platelet Count 302 X10*3/uL (160-400); Red Blood Count 2.34 X10*6/uL (4.20-5.50); Red Cell Distribution Width 15.2 % (11.0-16.0); White Blood Count 13.2 X10*3/uL (4.8-10.8)
[2023-06-09 06:32] LABS: Albumin Level 3.4 g/dL (3.5-5.0); Anion Gap 18 (12-20); Blood Urea Nitrogen 30 mg/dL (9-16); Carbon Dioxide 27 mmol/L (22-29); Chloride 111 mmol/L (96-108); Creatinine Clr Calc Pharmacy 86.7; Estimated Glomerular Filt Rate > 60; Glucose Random 156 mg/dL (60-115); Magnesium 2.1 mg/dL (1.6-2.6); Phosphorus 1.8 mg/dL (2.7-4.5); Potassium 3.1 mmol/L (3.3-5.1); Sodium 153 mmol/L (135-145)
--- NOTE | 2023-06-09 07:57 | ECG_ITS ---
Test Reason : QTc Monitoring Blood Pressure : / mmHG Vent. Rate : 092 BPM Atrial Rate : 368 BPM P-R Int : 000 ms QRS Dur : 076 ms QT Int : 314 ms P-R-T Axes : 257 096 -40 degrees QTc Int : 388 ms Atrial flutter with variable A-V block Rightward axis Cannot rule out Anterior infarct , age undetermined Abnormal ECG When compared with ECG of 08-JUN-2023 10:30, Nonspecific T wave abnormality no longer evident in Lateral leads Referred By: Chanel Coker Electronically Signed By:ERASTO GUTHRIE
[2023-06-09] MEDS: Furosemide 200 MG in 0.9 % Sodium Chloride 80 ML IVCONT (08:22)
[2023-06-09] MEDS: lamoTRIgine 100 MG TABLET PO (08:30)
[2023-06-09] MEDS: Famotidine/PF 20 MG/2 ML VIAL IVPUSH (08:30)
[2023-06-09] MEDS: Cyanocobalamin (Vitamin B-12) 100 MCG TABLET PO (08:30)
[2023-06-09] MEDS: Aspirin Enteric Coated 81 MG TABLET.DR PO (08:30)
[2023-06-09] MEDS: Potassium Chloride Packet 20 MEQ PACKET 40 MEQ PO (08:30)
--- NOTE | 2023-06-09 08:30 | PM.CCPN ---
Subjective Subjective Date of Service: 06/09/23 Interval History: another appreciable episode of sinus pause, self-resolved; interval improvement of mental status this AM Critical Care Time (minutes): 90 Physical Exam Vital Signs: Vital Signs: Last Vital Signs Temp 98.5 F 06/09/23 06:00 Pulse 92 06/09/23 07:59 Resp 16 06/09/23 07:59 BP 101/38 L 06/09/23 08:22 Pulse Ox 92 06/09/23 07:59 O2 Del Method Mechanical Ventil ation 06/09/23 07:59 O2 Flow Rate 10 06/06/23 13:00 FiO2 55 06/09/23 07:59 Oxygen Flow Rate 15 05/29/23 06:00 BMI result Body Mass Index 39.9 Const: Other: intubated General: cooperative, healthy appearing, comfortable, no acute distress, well developed, alert, awake and Physically active Orientation/consciousness: oriented to person and oriented to place HEENT: Head: Yes normal to inspection, Yes normocephalic and Yes atraumatic Eyes: General: appearance normal, both eyes and all related structures Neck: Neck: Yes normal visual inspection, Yes full ROM, Yes no meningeal signs, Yes trachea midline and Yes supple Chest: Chest palpation & inspection: normal inspection of the chest Resp: Other: some appreciable rhonchi and rales; no appreciable wheezing Effort & Inspection: normal respiratory effort Cardio: Rate: regular rate GI: Inspection: Yes normal to inspection, No Abdominal wall edema and No distended Palpation (GI): Soft to palpation, not firm, nontender, no guarding and not rigid : External Female Exam: normal external appearance Skin: General skin exam: no rashes or lesions noted Neuro: General: oriented to person, oriented to place, tone normal, moves all extremities, no meningeal signs and no focal motor deficits Extrem: Other: 2+ pitting edema to bilateral knees General: Yes normal to inspection, Yes full ROM and Yes capillary refill normal Psych: Appearance: grossly normal Objective Data Labs 06/09/23 05:10 06/09/23 05:10 Labs: Laboratory Results - last 24 hr 06/08/23 06/08/23 06/08/23 08:22 08:23 08:26 WBC RBC Hgb Hct MCV MCH MCHC RDW Plt Count MPV Immature Gran % (Auto) Neut % (Auto) Lymph % (Auto) [place] % (Auto) Eos % (Auto) Baso % (Auto) Lymph # (Auto) [place] # (Auto) Eos # (Auto) Baso # (Auto) Abs Immat Gran (auto) Absolute Neuts (auto) Absolute Nucleated RBC Nucleated RBC % (auto) VBG pH 7.28 L VBG pCO2 51 VBG pO2 101 VBG HCO3 24 VBG O2 Saturation Not Reportable VBG Base Excess -2.0 Sodium Potassium Chloride Carbon Dioxide Anion Gap BUN Creatinine Estim Creat Clear Calc Estimated GFR POC Glucose Random Glucose Calcium Phosphorus Magnesium Total Bilirubin AST ALT Alkaline Phosphatase Total Protein Albumin TSH 0.54 Random Vancomycin Valproic Acid 22.6 L 06/08/23 06/08/23 06/08/23 12:44 14:02 14:28 WBC 18.0 H RBC 2.43 L Hgb 7.5 L Hct 24.4 L MCV 100.4 H MCH 30.9 MCHC 30.7 L RDW 15.1 Plt Count 284 MPV 10.4 Immature Gran % (Auto) 3.3 H Neut % (Auto) 84.6 H Lymph % (Auto) 7.7 L [place] % (Auto) 4.1 Eos % (Auto) 0.1 Baso % (Auto) 0.2 Lymph # (Auto) 1.4 [place] # (Auto) 0.7 Eos # (Auto) 0.0 Baso # (Auto) 0.0 Abs Immat Gran (auto) 0.59 H Absolute Neuts (auto) 15.2 H Absolute Nucleated RBC 0.020 H Nucleated RBC % (auto) 0.1 VBG pH 7.32 VBG pCO2 56 VBG pO2 58 VBG HCO3 29 H VBG O2 Saturation 84.0 VBG Base Excess 2.6 Sodium 150 H Potassium 3.8 Chloride 111 H Carbon Dioxide 27 Anion Gap 16 BUN 35 H Creatinine 1.01 Estim Creat Clear Calc 70.4 Estimated GFR 55 POC Glucose 226 H Random Glucose 228 H Calcium 9.1 D Phosphorus 2.9 Magnesium 2.2 Total Bilirubin 0.7 AST 33 H ALT 42 H Alkaline Phosphatase 68 Total Protein 6.6 Albumin 3.8 TSH Random Vancomycin Valproic Acid 06/08/23 06/08/23 06/08/23 18:02 18:07 20:17 WBC RBC Hgb Hct MCV MCH MCHC RDW Plt Count MPV Immature Gran % (Auto) Neut % (Auto) Lymph % (Auto) [place] % (Auto) Eos % (Auto) Baso % (Auto) Lymph # (Auto) [place] # (Auto) Eos # (Auto) Baso # (Auto) Abs Immat Gran (auto) Absolute Neuts (auto) Absolute Nucleated RBC Nucleated RBC % (auto) VBG pH 7.57 H VBG pCO2 31 VBG pO2 157 VBG HCO3 29 H VBG O2 Saturation 99.0 VBG Base Excess 7.0 Sodium Potassium Chloride Carbon Dioxide Anion Gap BUN Creatinine Estim Creat Clear Calc Estimated GFR POC Glucose 145 H Random Glucose Calcium Phosphorus Magnesium Total Bilirubin AST ALT Alkaline Phosphatase Total Protein Albumin TSH Random Vancomycin 21.7 H Valproic Acid 06/09/23 06/09/23 06/09/23 00:03 05:10 05:11 WBC 13.2 H RBC 2.34 L Hgb 7.3 L Hct 23.1 L MCV 98.7 H MCH 31.2 MCHC 31.6 RDW 15.2 Plt Count 302 MPV 10.7 Immature Gran % (Auto) 1.7 H Neut % (Auto) 76.9 H Lymph % (Auto) 14.3 L [place] % (Auto) 4.8 Eos % (Auto) 2.0 Baso % (Auto) 0.3 Lymph # (Auto) 1.9 [place] # (Auto) 0.6 Eos # (Auto) 0.3 Baso # (Auto) 0.0 Abs Immat Gran (auto) 0.23 H Absolute Neuts (auto) 10.1 H Absolute Nucleated RBC 0.000 Nucleated RBC % (auto) 0.0 VBG pH 7.53 H VBG pCO2 41 VBG pO2 43 VBG HCO3 35 H VBG O2 Saturation 76.0 VBG Base Excess 12.0 Sodium 153 H Potassium 3.1 L Chloride 111 H Carbon Dioxide 27 Anion Gap 18 BUN 30 H Creatinine 0.86 Estim Creat Clear Calc 86.7 Estimated GFR > 60 POC Glucose 139 H Random Glucose 156 H Calcium 9.0 Phosphorus 1.8 L Magnesium 2.1 Total Bilirubin AST ALT Alkaline Phosphatase Total Protein Albumin 3.4 L TSH Random Vancomycin Valproic Acid Microbiology Microbiology Results: Microbiology 06/02/23 11:46 Blood - Venous Blood Culture - Final No growth after 5 days. 06/02/23 11:46 Blood - Venous Blood Culture - Final No growth after 5 days. 06/02/23 11:28 Lung - Suctioned Gram Stain - Final 06/02/23 11:28 Lung - Suctioned Sputum Culture - Final 05/29/23 11:40 Blood - Venous Blood Culture - Final No growth after 5 days. 05/29/23 11:55 Blood - Venous Blood Culture - Final No growth after 5 days. 05/31/23 00:20 Sputum - Suctioned Gram Stain - Final 05/31/23 00:20 Sputum - Suctioned Sputum Culture - Final 05/27/23 13:59 Blood - Venous Blood Culture - Final No growth after 5 days. 05/27/23 13:55 Blood - Venous Blood Culture - Final Coag negative Staphylococcus 05/28/23 Unknown Urine clean catch - Urine chandler top Urine Culture - Final Progress Note: A&P Assessment and plan (1) Acute respiratory failure with hypoxia: Status: Acute (2) Acute pulmonary edema: Status: Acute (3) Schizoaffective disorder, bipolar type: Status: Acute Plan Patient is a 62 Y F with metabolic syndrome, non-insulin dependent diabetes mellitus, hypothyroidism, obstructive sleep apnea non-compliant w/ CPAP, bipolar disease, initially presenting to emergency department on 05/26 w/ diarrhea, found to have dehydration, electrolylte abnormalities; on 05/29, developed hypoxia, likely d/t volume overload, transferred ICU; ICU course c/b symptomatic bradycardia on 06/06 PM N: no acute issues CV: symptomatic bradycardia/sinus pauses, unclear etiology; continue to avoid dexmedetomidine gtt and judicious use of QTc-prolonging medications; daily EKG for QTc monitoring R: hypoxic respiratory failure, likely d/t volume overload; obstructive sleep apnea; re-intubated 06/07 GI: NPO : volume overload, on furosemide gtt; hypernatremia; to continue to closely monitor electrolytes H: no acute issues ID: possible pneumonia; empiric vancomycin, zoysn E: no acute issues; non-insulin dependent diabetes mellitus, hypothyroidism P: bipolar disease, judicious use of psychotropic medications Quality Stroke Does the patient have a stroke diagnosis?: No VTE Prior VTE?: No VTE Risk Level:: Medical - moderate - high VTE Device Contraindication: Treatment Not Indicated VTE Drug Contraindication: N/A - Med Ordered
[2023-06-09] MEDS: Potassium Phosphate/NS 15 MMOL/250 ML PLAST..BAG 62.5 MMOL IV ×2 (08:31→21:49)
[2023-06-09] MEDS: 0.9 % Sodium Chloride Flush 3 ML SYRINGE IVFLUSH ×3 (08:31→20:20)
[2023-06-09] MEDS: Valproic Acid (as Sodium Salt) 500 MG in Dextrose 5 % 50 ML 55 MG IV (08:31)
[2023-06-09] MEDS: Enoxaparin Sodium 100 MG/ML SYRINGE SUBCUT ×2 (08:31→21:15)
[2023-06-09 09:17] LABS: Venous Blood Gas Refer to POC result
--- NOTE | 2023-06-09 10:11 | P.CDIM_ITS ---
PROVIDER RESPONSE TEXT: To clarify, the appropriate diagnosis supported by the clinical indicators: Pressure (decubitus) ulcer right buttock DTI QUERY TEXT: PHYSICIAN'S DOCUMENTATION REQUEST Date of Query: 06/09/2023 09:57 AM EDT Patient Name: Daily Townsend Admit Date: 05/28/2023 Dear Chanel Coker, A review of the medical record indicates additional documentation may be needed. Please review below and update the documentation accordingly. Clinical Indicators: Per Nursing Pressure Injury Assessment 06/08/23: right buttock wound deep tissue injury Based on the above, could you please provide further information regarding the ulcer/wound: Pressure (decubitus) ulcer right buttock DTI Traumatic wound DTI right buttock Other (explain) Clinically unable to determine (explain) Thank you, Carol Bundy RN Use of terms such as suspected, likely, concern for, or probable (associated with a specific diagnosi s that is being evaluated, monitored, or treated as if it exists) are acceptable and can be coded in the inpatient se tting, when documented at the time of discharge. Please use your independent medical judgment in providing your response. THIS QUERY IS PART OF THE PERMANENT MEDICAL RECORD
--- NOTE | 2023-06-09 10:11 | P.CDIM_ITS ---
PROVIDER RESPONSE TEXT: To clarify, the appropriate diagnosis supported by the clinical indicators: Pressure (decubitus) ulcer left buttock DTI QUERY TEXT: PHYSICIAN'S DOCUMENTATION REQUEST Date of Query: 06/09/2023 10:00 AM EDT Patient Name: Daily Townsend Admit Date: 05/28/2023 Dear Chanel Coker, A review of the medical record indicates additional documentation may be needed. Please review below and update the documentation accordingly. Clinical Indicators: Per nursing Pressure Injury Assessment 06/08/23: left buttock deep tissue injury Based on the above, could you please provide further information regarding the ulcer/wound: Pressure (decubitus) ulcer left buttock DTI Traumatic wound left buttock DTI Other (explain) Clinically unable to determine (explain) Thank you, Carol Bundy RN Use of terms such as suspected, likely, concern for, or probable (associated with a specific diagnosi s that is being evaluated, monitored, or treated as if it exists) are acceptable and can be coded in the inpatient se tting, when documented at the time of discharge. Please use your independent medical judgment in providing your response. THIS QUERY IS PART OF THE PERMANENT MEDICAL RECORD
--- NOTE | 2023-06-09 10:41 | HO.SKINPHOTO ---
Location:right buttuck Category: PI
[2023-06-09] MEDS: vancomycin HCL 750 MG in 0.9 % Sodium Chloride 250 ML 265 MG IV ×2 (11:41→22:45)
[2023-06-09 11:54] LABS: Glucose, Whole Blood 140 mg/dL (60-115)
--- NOTE | 2023-06-09 14:50 | MHC.CM.PN ---
Pt extubated and is on high flow O2 - family opted to change status to DNR/DNI but no other measures decided on. CM to follow for finalization of d/c needs which will be based on clincial stability.
--- NOTE | 2023-06-09 14:52 | HO.WOUND ---
Wound Consult: Initial 62yr old?Female admitted to [facility] [place] 05/27/23 with complex medical admission to the ICU - See progress notes and H&P for detailed history.? Wound consult placed for Right Buttock and Left Buttock wounds.? Patient agreeable to assessment and photo documentation.? Left Ischium Etiology: ??Deep Tissue Injury in Evolution Measurements: see charting for detailed measurement Wound Bed: dark purple nonblanchable tissue with epidermal lifting noted revealing dark pigmented tissue Drainage / Odor: No able to obserev at the time of my assessment due to soiled dressing Edges: ? Irregular Nicky wound: ? Mcgraw blanchable intact tissue - No Induration, Fluctuance or Warmth noted Pain: did not appear to increase pain at the time of my assessment Goals of Treatment: ? Off load pressure - Triad for moist wound healing and Foam dressing to aid in pressure redistribution and off loading pressure Right Sacrum Etiology: ??Deep Tissue Injury Measurements: see charting for detailed measurement Wound Bed: intact dark purple nonblanchable tissue - appears to be resolving compared to previous photo review in chart Drainage / Odor: None Edges: ? Irregular Nicky wound: ? Mcgraw blanchable intact tissue - No Induration, Fluctuance or Warmth noted Pain: did not appear to increase pain at the time of my assessment Goals of Treatment: ? Off load pressure - Foam dressing to aid in pressure redistribution and off loading pressure These wounds are over bony prominences and appear to have pressure involvement however there is evidence to suggest there are other contributing etiology such as presser support and cardiac events. Evidence by quickly resolving DTI to right sacrum see previous photo 06/07/23 - True DTI will typically not resolve that quickly, the irregular shape and pigmentation patterns and locations or less consistent pressure but remain overall in general bony prominence area and therefore will be catagorized at pressure injury. Inpatient nurse will continue to follow for wound evolution. Of note bridge of nose was not able to be assessed due to NG tube adhesive tape. No pressure currently on bridge of nose - discussed with direct care nurse should pressure need to be reapplied such as with respiratory device to off load and pad with mepilex lite foam dressing cut to size. Recommendations: 1. Turn and Reposition every 2 hours and as needed for patient comfort.? Use pillows or wedges to support off loading positions. Heel protector boots in place. 2. Off Load all bony prominences with use of pillows and heel boots if needed.? Apply Preventative foams where needed. ? 3. Monitor for incontinence and moisture control, use barrier creams when needed for prevention and treatment. 4. Provide adequate and supplemental nutrition.? 5. Continue low air loss mattress. 6. When applicable maintain blood glucose levels per Providers order. 7. Right Sacrum and Left Ischium - Off Load Pressure - Routine cleansing, pat dry. Apply light layer of triad followed by foam dressing. Peel back and assess Q shift and change every three days and PRN. Re-consult wound care Nurse for wound deterioration or wound changes.
[2023-06-09] MEDS: Dextrose 5 % 1,000 ML 50 ML IVCONT (15:13)
[2023-06-09] MEDS: Metoprolol Tartrate 5 MG/5 ML VIAL 10 MG IVPUSH (17:30)
[2023-06-09] MEDS: fentaNYL citrate/PF 100 MCG/2 ML VIAL 25 MCG IVPUSH (17:40)
[2023-06-09 17:47] LABS: Glucose, Whole Blood 175 mg/dL (60-115)
[2023-06-09] MEDS: Insulin Lispro 100 UNIT/ML 3 ML VIAL SUBCUT ×2 (17:55→23:57)
[2023-06-09] MEDS: HYDROmorphone HCl 0.5 MG/0.5 ML SYRINGE IVPUSH (18:06)
[2023-06-09 18:15] LABS: VBG Base Excess 12.4 mmol/L; VBG HCO3 36 mmol/L (22-26); VBG pCO2 43 mmHg; VBG pH 7.52 (7.32-7.43); VBG pO2 107 mmHg
[2023-06-09 18:29] LABS: Venous Blood Gas Refer to POC result
[2023-06-09 18:35] LABS: Anion Gap 18 (12-20); Blood Urea Nitrogen 27 mg/dL (9-16); Calcium 9.1 mg/dL (8.4-10.2); Carbon Dioxide 31 mmol/L (22-29); Chloride 108 mmol/L (96-108); Creatinine Clr Calc Pharmacy 78.5; Estimated Glomerular Filt Rate 59; Glucose Random 205 mg/dL (60-115); Magnesium 1.7 mg/dL (1.6-2.6); Phosphorus 2.4 mg/dL (2.7-4.5); Potassium 2.9 mmol/L (3.3-5.1); Sodium 154 mmol/L (135-145)
[2023-06-09] MEDS: Potassium Chloride/H20 10 MEQ/100 ML PIGGYBACK 100 MEQ IV ×4 (20:18→23:40)
[2023-06-09] MEDS: Valproic Acid (as Sodium Salt) 750 MG in Dextrose 5 % 50 ML 57.5 MG IV (20:43)
--- NOTE | 2023-06-09 20:48 | PC.NURSE ---
Addendum entered by Zenobia Nye RN 06/10/23 06:55: Potassium low this morning; repletions ordered though not verified by pharmacy prior to shift change. Handoff report given, oncoming RN made aware. Addendum entered by Zenobia Nye RN 06/10/23 06:24: 06:26 Schedule Supervisor present in room when pt observed on monitor spontaneously asystolic from afib while resting in bed (no suctioning or repositioning during this event). Tele reviewed showed asystolic for two minutes fifteen seconds before pt's rhythm returned spontaneously to afib low 100's. Pt currently awake and talking, in no observed distress at 06:35. 06:15: Morning VBG results discussed with respiratory and FLOSSER Nyla; HFNC settings reduced to 45L/45% by RT. Spo2 88%-90% on adjusted settings, FLOSSER notified of spo2. Patient breathing observed even and unlabored without distress. Original Note: Assumed care of patient at 19:15. Pt only with (1) right midline and (1) left forearm ultrasound guided IV access; per handoff report pt had pulled out her other two peripheral IVs. Multiple electrolytes and scheduled meds ordered recently though most noted to be incompatible with presently infusing D5W and lasix gtt. Ordered KCl was compatible with lasix and prioritized/initiated for critical K 2.9 drawn prior to card writer hand assuming care of pt; This was discussed with covering FLOSSER Nyla Sloan. Additional right peripheral IV x1 placed by card writer hand and valproate sodium initiated next per FLOSSER, with Kphos to be initiated next following soon completion of valproate sodium infusion. Also discussed no NGT present on assuming care and pt on HFNC; PO meds held per NPO/FLOSSER order. Plan of care continues.
[2023-06-09 21:55] LABS: Vancomycin Random 17.2 mcg/mL (15-20)
[2023-06-09] MEDS: Metoprolol Tartrate 10 MG in 0.9 % Sodium Chloride 50 ML 240 MG IV (23:33)
[2023-06-09 23:40] LABS: Glucose, Whole Blood 183 mg/dL (60-115)
[2023-06-09] MEDS: LORazepam 2 MG/ML VIAL 0.5 MG IVPUSH (23:50)
[2023-06-10] VITALS (31 sets, daily range): BP systolic 120–169; BP diastolic 52–89; PULSE 89–123; RESP 14–80; TEMP 37.4–38; O2SAT 89–98; BMI 38.7
[2023-06-10] MEDS: Piperacillin Sodium/Tazobactam 4.5 GM in 0.9 % Sodium Chloride 100 ML IV ×4 (05:53→22:51)
[2023-06-10] MEDS: Metoprolol Tartrate 10 MG in 0.9 % Sodium Chloride 50 ML 240 MG IV (05:55)
[2023-06-10 06:15] LABS: VBG Base Excess 17.2 mmol/L; VBG HCO3 39 mmol/L (22-26); VBG pCO2 37 mmHg; VBG pH 7.63 (7.32-7.43); VBG pO2 150 mmHg
[2023-06-10 06:30] LABS: Anion Gap 17 (12-20); Blood Urea Nitrogen 20 mg/dL (9-16); Carbon Dioxide 31 mmol/L (22-29); Chloride 107 mmol/L (96-108); Estimated Glomerular Filt Rate > 60; Glucose Random 192 mg/dL (60-115); Magnesium 1.6 mg/dL (1.6-2.6); Phosphorus 2.9 mg/dL (2.7-4.5); Potassium 3.1 mmol/L (3.3-5.1); Sodium 152 mmol/L (135-145)
[2023-06-10 06:32] LABS: Basophils Absolute Auto 0.1 X10*3/uL (0.0-0.2); Basophils Percent Auto 0.5 % (0-2)
[2023-06-10 06:34] LABS: Eosinophils Absolute Auto 0.2 X10*3/uL (0.0-0.4); Eosinophils Percent Auto 1.5 % (0-4); Hematocrit 26.2 % (37.0-47.0); Hemoglobin 8.2 g/dl (12.0-16.0); Imm Gran Abs Auto 0.13 X10*3/uL (0.00-0.03); Imm Gran Pct Auto 1.3 % (0.0-0.4); Lymphocytes Absolute Auto 1.8 X10*3/uL (1.2-4.9); Lymphocytes Percent Auto 18.3 % (20-40); Mean Corpuscular HGB Conc 31.3 g/dl (31.0-35.0); Mean Corpuscular Hemoglobin 30.4 pg (27.0-33.0); Mean Platelet Volume 10.3 fL (9.4-12.3); Monocytes Absolute Auto 0.4 X10*3/uL (0.1-1.2); Monocytes Percent Auto 4.4 % (2-11); Neutrophils Absolute Auto 7.2 x10*3/uL (2.0-8.3); Red Cell Distribution Width 14.8 % (11.0-16.0)
[2023-06-10 06:39] LABS: Platelet Count 317 X10*3/uL (160-400); White Blood Count 9.7 X10*3/uL (4.8-10.8)
[2023-06-10] MEDS: Insulin Lispro 100 UNIT/ML 3 ML VIAL SUBCUT ×4 (06:48→23:50)
--- NOTE | 2023-06-10 07:57 | ECG_ITS ---
Test Reason : qtc check Blood Pressure : / mmHG Vent. Rate : 123 BPM Atrial Rate : 369 BPM P-R Int : 000 ms QRS Dur : 072 ms QT Int : 272 ms P-R-T Axes : 000 097 168 degrees QTc Int : 389 ms Atrial flutter with 3:1 A-V conduction Rightward axis Nonspecific ST and T wave abnormality Abnormal ECG When compared with ECG of 09-JUN-2023 09:36, ST now depressed in Lateral leads Referred By: Chanel Coker Electronically Signed By:ERASTO GUTHRIE
[2023-06-10] MEDS: Furosemide 200 MG in 0.9 % Sodium Chloride 80 ML IVCONT (08:33)
[2023-06-10] MEDS: Famotidine/PF 20 MG/2 ML VIAL IVPUSH (08:35)
[2023-06-10] MEDS: Potassium Chloride/H20 10 MEQ/100 ML PIGGYBACK 100 MEQ IV ×8 (08:36→22:52)
[2023-06-10] MEDS: 0.9 % Sodium Chloride Flush 3 ML SYRINGE IVFLUSH (08:45)
[2023-06-10] MEDS: Valproic Acid (as Sodium Salt) 750 MG in Dextrose 5 % 50 ML 57.5 MG IV ×2 (08:45→20:41)
--- NOTE | 2023-06-10 09:14 | PM.CCPN ---
Subjective Subjective Date of Service: 06/10/23 Interval History: another 2 appreciable asystolic events, self-resolved Critical Care Time (minutes): 60 Physical Exam Vital Signs: Vital Signs: Last Vital Signs Temp 99.9 F 06/10/23 09:00 Pulse 92 06/10/23 09:00 Resp 22 H 06/10/23 09:00 BP 152/79 H 06/10/23 09:00 Pulse Ox 93 06/10/23 09:00 O2 Del Method High Flow Nasal C annula 06/10/23 09:00 O2 Flow Rate 45 06/10/23 09:00 FiO2 45 06/10/23 09:00 Oxygen Flow Rate 15 05/29/23 06:00 BMI result Body Mass Index 38.7 Const: General: comfortable, no acute distress, well developed, alert, awake and Physically active Orientation/consciousness: oriented to person and oriented to place HEENT: Head: Yes normal to inspection, Yes normocephalic and Yes atraumatic Eyes: General: appearance normal, both eyes and all related structures Neck: Neck: Yes normal visual inspection, Yes full ROM, Yes no meningeal signs and Yes supple Chest: Chest palpation & inspection: normal inspection of the chest Resp: Other: no appreciable rales, rhonchi, wheezing Cardio: Rate: tachycardic Rhythm: regular rhythm GI: Inspection: Yes normal to inspection, No Abdominal wall edema and No distended Skin: General skin exam: no rashes or lesions noted Neuro: General: oriented to person, oriented to place, tone normal, moves all extremities, no meningeal signs and no focal motor deficits Extrem: Other: 1+ pitting edema to bilateral knees General: Yes normal to inspection, Yes full ROM and Yes capillary refill normal Psych: Appearance: grossly normal Objective Data Labs 06/10/23 06:06 06/10/23 06:06 Labs: Laboratory Results - last 24 hr 06/09/23 06/09/23 06/09/23 11:48 17:39 17:58 WBC RBC Hgb Hct MCV MCH MCHC RDW Plt Count MPV Immature Gran % (Auto) Neut % (Auto) Lymph % (Auto) [place] % (Auto) Eos % (Auto) Baso % (Auto) Lymph # (Auto) [place] # (Auto) Eos # (Auto) Baso # (Auto) Abs Immat Gran (auto) Absolute Neuts (auto) Absolute Nucleated RBC Nucleated RBC % (auto) VBG pH VBG pCO2 VBG pO2 VBG HCO3 VBG O2 Saturation VBG Base Excess Sodium 154 H Potassium 2.9 L* Chloride 108 Carbon Dioxide 31 H Anion Gap 18 BUN 27 H Creatinine 0.95 Estim Creat Clear Calc 78.5 Estimated GFR 59 POC Glucose 140 H 175 H Random Glucose 205 H Calcium 9.1 Phosphorus 2.4 L Magnesium 1.7 Random Vancomycin 06/09/23 06/09/23 06/09/23 18:06 21:07 23:36 WBC RBC Hgb Hct MCV MCH MCHC RDW Plt Count MPV Immature Gran % (Auto) Neut % (Auto) Lymph % (Auto) [place] % (Auto) Eos % (Auto) Baso % (Auto) Lymph # (Auto) [place] # (Auto) Eos # (Auto) Baso # (Auto) Abs Immat Gran (auto) Absolute Neuts (auto) Absolute Nucleated RBC Nucleated RBC % (auto) VBG pH 7.52 H VBG pCO2 43 VBG pO2 107 VBG HCO3 36 H VBG O2 Saturation TNP VBG Base Excess 12.4 Sodium Potassium Chloride Carbon Dioxide Anion Gap BUN Creatinine Estim Creat Clear Calc Estimated GFR POC Glucose 183 H Random Glucose Calcium Phosphorus Magnesium Random Vancomycin 17.2 06/10/23 06/10/23 06:06 06:07 WBC 9.7 RBC 2.70 L Hgb 8.2 L Hct 26.2 L MCV 97.0 MCH 30.4 MCHC 31.3 RDW 14.8 Plt Count 317 MPV 10.3 Immature Gran % (Auto) 1.3 H Neut % (Auto) 74.0 H Lymph % (Auto) 18.3 L [place] % (Auto) 4.4 Eos % (Auto) 1.5 Baso % (Auto) 0.5 Lymph # (Auto) 1.8 [place] # (Auto) 0.4 Eos # (Auto) 0.2 Baso # (Auto) 0.1 Abs Immat Gran (auto) 0.13 H Absolute Neuts (auto) 7.2 Absolute Nucleated RBC 0.000 Nucleated RBC % (auto) 0.0 VBG pH 7.63 H* VBG pCO2 37 VBG pO2 150 VBG HCO3 39 H VBG O2 Saturation 99.0 VBG Base Excess 17.2 Sodium 152 H Potassium 3.1 L Chloride 107 Carbon Dioxide 31 H Anion Gap 17 BUN 20 H Creatinine 0.78 Estim Creat Clear Calc 94.0 Estimated GFR > 60 POC Glucose Random Glucose 192 H Calcium 9.0 Phosphorus 2.9 Magnesium 1.6 Random Vancomycin Microbiology Microbiology Results: Microbiology 06/02/23 11:46 Blood - Venous Blood Culture - Final No growth after 5 days. 06/02/23 11:46 Blood - Venous Blood Culture - Final No growth after 5 days. 06/02/23 11:28 Lung - Suctioned Gram Stain - Final 06/02/23 11:28 Lung - Suctioned Sputum Culture - Final 05/29/23 11:40 Blood - Venous Blood Culture - Final No growth after 5 days. 05/29/23 11:55 Blood - Venous Blood Culture - Final No growth after 5 days. 05/31/23 00:20 Sputum - Suctioned Gram Stain - Final 05/31/23 00:20 Sputum - Suctioned Sputum Culture - Final 05/27/23 13:59 Blood - Venous Blood Culture - Final No growth after 5 days. 05/27/23 13:55 Blood - Venous Blood Culture - Final Coag negative Staphylococcus 05/28/23 Unknown Urine clean catch - Urine chandler top Urine Culture - Final Progress Note: A&P Assessment and plan (1) Asystole: Status: Acute (2) Acute respiratory failure with hypoxia: Status: Acute (3) Acute pulmonary edema: Status: Acute (4) Schizoaffective disorder, bipolar type: Status: Acute (5) Paroxysmal atrial fibrillation: Status: Acute Plan Patient is a 62 Y F with metabolic syndrome, non-insulin dependent diabetes mellitus, hypothyroidism, obstructive sleep apnea non-compliant w/ CPAP, bipolar disease, initially presenting to emergency department on 05/26 w/ diarrhea, found to have dehydration, electrolyte abnormalities; on 05/29, developed hypoxia, likely d/t volume overload, transferred ICU, intubated, extubated, re-intubated, and extubated; of note, ICU course c/b recurrent astystolic events N: no acute issues CV: symptomatic bradycardia/sinus pauses/asystole, unclear etiology; continue to avoid audra-blocking agents; plan for permanent pacemaker today R: hypoxic respiratory failure, likely d/t volume overload, intubated/extubated/re-intubated/extubated; obstructive sleep apnea GI: NPO; formal speech/swallow tomorrow : volume overload, on furosemide gtt; hypernatremia; to continue to closely monitor electrolytes H: no acute issues ID: possible pneumonia; empiric vancomycin, zosyn E: no acute issues; non-insulin dependent diabetes mellitus, hypothyroidism P: bipolar disease, judicious use of psychotropic medications Quality Stroke Does the patient have a stroke diagnosis?: No VTE Prior VTE?: No VTE Risk Level:: Medical - moderate - high VTE Device Contraindication: Treatment Not Indicated VTE Drug Contraindication: N/A - Med Ordered
--- NOTE | 2023-06-10 09:34 | MHC.CLN ---
F/U PT RE-INTUBATED DISCUSSED AT ROUNDS WITH MD PT IS NPO AND PLAN TO REMAIN NPO FOR TODAY PER MD IF TF TO RE-START; RECOMMEND GLUCERNA AT MAX GOAL RATE 75ML/HR TO PROVIDE 1800KCALS (30KCALS/KG BASED ON IBW), 75G PROTEIN (1.2G/KG), 1535ML TOTAL FREE WATER FROM FORMULA TF WILL PROMOTE WOUND HEALING MONITOR TOLERANCE, RESIDUALS AND LYTES FOLLOWING WITH TEAM
[2023-06-10] MEDS: Heparin Sodium,Porcine/1/2NS 25,000 UNIT/250 ML IV.SOLN 10 UNIT IVCONT (10:04)
[2023-06-10] MEDS: Dextrose 5 % 1,000 ML 50 ML IVCONT (10:05)
[2023-06-10 10:12] LABS: Hematocrit 27.5 % (37.0-47.0); Hemoglobin 8.8 g/dl (12.0-16.0); Mean Corpuscular Hemoglobin 30.8 pg (27.0-33.0); Mean Corpuscular Volume 96.2 fL (80.0-98.0); Mean Platelet Volume 10.1 fL (9.4-12.3); NRBC Pct Auto 0.2 /100WBC (0.0-0.2); Platelet Count 341 X10*3/uL (160-400); Red Blood Count 2.86 X10*6/uL (4.20-5.50); Red Cell Distribution Width 14.8 % (11.0-16.0); White Blood Count 11.5 X10*3/uL (4.8-10.8)
--- NOTE | 2023-06-10 10:19 | P.PNCA_ITS ---
Subjective Subjective Date of Service: 06/10/23 Principal diagnosis: Asystole, tachyarrhythmias, hypotension Interval history: Requested to evaluate this patient today as the patient is having episodes of asystole. Essentially what is happening is that patient spontaneously goes into asystolic episode where this atrial fibrillation but no conduction down the AV node. This can happen for as long as 1-2 minutes without any provoking factors. Patient herself is denying any clear cardiac symptoms however. Review of Systems Review of Systems Yes all other systems are reviewed and are negative Constitutional: Reports as per HPI and Reports no additional constitutional complaints Eyes: Reports as per HPI and Denies no additional eye complaints Denies system reviewed and no additional complaints, except as documented and Reports as per HPI Cardiovascular: Reports as per HPI, Reports no additional cardiovascular complaints, Denies acrocyanosis, Denies cool extremities, Denies chest pain, Denies leg edema, Denies lightheadedness, Denies palpitations and Denies dyspnea Respiratory: Reports as per HPI, Denies no additional respiratory complaints and Denies dyspnea Gastrointestinal: Reports as per HPI and Denies no additional gastrointestinal complaints Genitourinary: Reports as per HPI Musculoskeletal: Reports no additional musculoskeletal complaints and Reports as per HPI Skin/Breast: Reports system reviewed and no additional complaints, except as docu Reports system reviewed and no additional complaints, except as documented and Reports as per HPI Psychiatric: Reports no additional psychiatric complaints and Reports as per HPI Endocrine: Reports no additional endocrine complaints, Reports as per HPI and Denies palpitations Hematologic/Lymphatic: Reports no additional hematologic/lymphatic complaints and Reports as per HPI Allergic/Immunologic: Reports no additional allergic/immunologic complaints and Reports as per HPI Physical Exam Vital Signs: Last Vital Signs Temp 100.0 F 06/10/23 10:00 Pulse 123 H 06/10/23 10:00 Resp 14 06/10/23 10:00 BP 169/81 H 06/10/23 10:00 Pulse Ox 90 L 06/10/23 10:00 O2 Del Method High Flow Nasal Cannula 06/10/23 10:00 O2 Flow Rate 45 06/10/23 10:00 FiO2 45 06/10/23 10:00 Oxygen Flow Rate 15 05/29/23 06:00 BMI result Body Mass Index 38.7 Const General: comfortable and no acute distress Orientation/consciousness: patient oriented x3 HEENT Other: Unremarkable Head: Yes normal to inspection Neck Neck: Yes normal visual inspection Chest Chest palpation & inspection: normal inspection of the chest Resp Auscultation: clear to auscultation bilaterally Cardio Palpation: normal PMI Heart sounds: S1 normal heart sound present, S2 normal heart sound present, no gallops, no murmurs and no rubs GI Palpation (GI): Soft to palpation Back/Spine/Pelvis Other: unremarkable Skin General skin exam: no rashes or lesions noted Neuro General: patient oriented x3 Extrem General: Yes normal to inspection Psych Mental Status: mental status grossly normal Objective Labs and Meds 06/10/23 09:38 06/10/23 06:06 Lab results: Laboratory Results - last 24 hr 06/09/23 06/09/23 06/09/23 11:48 17:39 17:58 WBC RBC Hgb Hct MCV MCH MCHC RDW Plt Count MPV Immature Gran % (Auto) Neut % (Auto) Lymph % (Auto) [place] % (Auto) Eos % (Auto) Baso % (Auto) Lymph # (Auto) [place] # (Auto) Eos # (Auto) Baso # (Auto) Abs Immat Gran (auto) Absolute Neuts (auto) Absolute Nucleated RBC Nucleated RBC % (auto) VBG pH VBG pCO2 VBG pO2 VBG HCO3 VBG O2 Saturation VBG Base Excess Sodium 154 H Potassium 2.9 L* Chloride 108 Carbon Dioxide 31 H Anion Gap 18 BUN 27 H Creatinine 0.95 Estim Creat Clear Calc 78.5 Estimated GFR 59 POC Glucose 140 H 175 H Random Glucose 205 H Calcium 9.1 Phosphorus 2.4 L Magnesium 1.7 Random Vancomycin 06/09/23 06/09/23 06/09/23 18:06 21:07 23:36 WBC RBC Hgb Hct MCV MCH MCHC RDW Plt Count MPV Immature Gran % (Auto) Neut % (Auto) Lymph % (Auto) [place] % (Auto) Eos % (Auto) Baso % (Auto) Lymph # (Auto) [place] # (Auto) Eos # (Auto) Baso # (Auto) Abs Immat Gran (auto) Absolute Neuts (auto) Absolute Nucleated RBC Nucleated RBC % (auto) VBG pH 7.52 H VBG pCO2 43 VBG pO2 107 VBG HCO3 36 H VBG O2 Saturation TNP VBG Base Excess 12.4 Sodium Potassium Chloride Carbon Dioxide Anion Gap BUN Creatinine Estim Creat Clear Calc Estimated GFR POC Glucose 183 H Random Glucose Calcium Phosphorus Magnesium Random Vancomycin 17.2 06/10/23 06/10/23 06/10/23 06:06 06:07 09:38 WBC 9.7 11.5 H RBC 2.70 L 2.86 L Hgb 8.2 L 8.8 L Hct 26.2 L 27.5 L MCV 97.0 96.2 MCH 30.4 30.8 MCHC 31.3 32.0 RDW 14.8 14.8 Plt Count 317 341 MPV 10.3 10.1 Immature Gran % (Auto) 1.3 H Neut % (Auto) 74.0 H Lymph % (Auto) 18.3 L [place] % (Auto) 4.4 Eos % (Auto) 1.5 Baso % (Auto) 0.5 Lymph # (Auto) 1.8 [place] # (Auto) 0.4 Eos # (Auto) 0.2 Baso # (Auto) 0.1 Abs Immat Gran (auto) 0.13 H Absolute Neuts (auto) 7.2 Absolute Nucleated RBC 0.000 0.020 H Nucleated RBC % (auto) 0.0 0.2 VBG pH 7.63 H* VBG pCO2 37 VBG pO2 150 VBG HCO3 39 H VBG O2 Saturation 99.0 VBG Base Excess 17.2 Sodium 152 H Potassium 3.1 L Chloride 107 Carbon Dioxide 31 H Anion Gap 17 BUN 20 H Creatinine 0.78 Estim Creat Clear Calc 94.0 Estimated GFR > 60 POC Glucose Random Glucose 192 H Calcium 9.0 Phosphorus 2.9 Magnesium 1.6 Random Vancomycin Progress Note: A&P Assessment and plan (1) Persistent atrial fibrillation: Status: Acute (2) Asystole: Status: Acute Plan In the last EKG from yesterday, suggestion of either coarse atrial fibrillation or flutter at a rate of 92/Min. Can not exclude old anterior infarct. During these episodes where she goes into asystole, there is clearly evidence of atrial fibrillation but no conducted QRS complexes. In the recent echocardiogram, LVEF is 60-65% with moderate diastolic dysfunction and otherwise unremarkable. I discussed at length with the patient about these findings and the fact that this will require a pacemaker. She states that she is willing to proceed. Then discussed with Dr. Coker from ICU as well as Dr. Samuel from EP. He will evaluate the patient shortly and possibly proceed with temporary transvenous pacemaker vs permanent pacemaker as feasible and available as soon as possible. Otherwise, needs anticoagulation for the atrial fibrillation. Time Spent With Patient Time: Total time managing care of this patient today ____ minutes. Progress Note: Quality Stroke Does the patient have a stroke diagnosis?: No Procedures Date of Service Date of Service: 06/10/23
[2023-06-10 10:21] LABS: INTERNATIONAL NORM RATIO 1.2 (0.9-1.1)
[2023-06-10 10:23] LABS: PTT Heparin Drip 27.9 SEC (53-77.9)
[2023-06-10 11:16] LABS: Venous Blood Gas Refer to POC result
[2023-06-10] MEDS: vancomycin HCL 750 MG in 0.9 % Sodium Chloride 250 ML 265 MG IV ×2 (12:25→23:33)
--- NOTE | 2023-06-10 13:16 | MHC.SLORD ---
Speech Language Pathology Order Status: Per RN, patient not appropriate to participate in DRY JANITOR evaluation this date d/t pending pace maker procedure this evening. DRY JANITOR to evaluate tomorrow morning. RN confirmed patient was extubated (for the second time) on 06/08.
--- NOTE | 2023-06-10 15:55 | MHC.CM.PN ---
EMR REVIEWED AND PER MD ROUNDS, PT WILL HAVE A PACEMAKER PLACED. CM WILL CONTINUE TO FOLLOW FOR ANY CHANGE TO DC PLAN.
--- NOTE | 2023-06-10 16:31 | P.CONCA_ITS ---
History of Present Illness History of Present Illness Date of Service: 06/10/23 Consult reason: other Chief complaint: Acute hypoxia, pulmonary edema Narrative: 62 year old female with PMH of psychiatric illness, atrial fibrillation, DM who presented with acute respiratory failure with possible aspiration. Patient was extubated and after extubation she is noted to have high degree AV block with long pauses. She is currently DNR dni and she was not resuscitated during the episodes. The patient was agreeable to pacemaker in the morning however she strongly denies getting pacemaker done at this point. There is some component of waxing and waning of mental status. We spoke with patients family who wanted to honor patient's wishes knowing her mental status and chronic comorbidities. Review of Systems 2 Review of Systems: Yes all other systems are reviewed and are negative [facility] Past Medical History Medical History (Updated 06/10/23 @ 16:34 by Storm Samuel MD) Hypertension Hyperlipidemia Type II diabetes mellitus PTSD (post-traumatic stress disorder) Surgical History Surgical History History of cholecystectomy Social History Social History Household Members: Other Housing: Other Housing Other:: [facility] facility Do you presently have visiting nurse or other home services: No Comment: sitter Patient Tobacco Use Status: Never used Tobacco Tobacco use type: Cigarette e-Cigarette/Vaping Use: Never Used Substance Use Type: Caffiene service: No Sexual orientation: Straight/Heterosexual Meds Allergies Allergy/AdvReac Type Severity Reaction Status Date / Time amoxicillin Allergy Unknown Unknown Uncoded 05/27/23 14:06 Pt states no food allergy Allergy Unknown Unknown Uncoded 05/27/23 14:06 Active Medications: Current Medications Acetaminophen (Acetaminophen 325 Mg Tablet) 975 mg PO Q6H PRN PRN Reason: Fever >101 Last Admin: 06/07/23 15:22 Dose: 975 mg Al Hydroxide/Mg Hydroxide (Magnesium Hydrox/Alum Hydrox 30 Ml Oral.Susp) 30 ml PO Q6H PRN PRN Reason: Heartburn/Nausea Last Admin: 05/29/23 05:11 Dose: 30 ml Aspirin (Aspirin Enteric Coated 81 Mg Tablet.Dr) 81 mg PO DAILY BERNARDA Last Admin: 06/10/23 09:03 Dose: Not Given Bisacodyl (Bisacodyl 5 Mg Tablet.Dr) 10 mg PO DAILY PRN PRN Reason: Constipation Clozapine (Clozapine Odt 25 Mg Tab.Rapdis) 50 mg PO DAILY@2100 BERNARDA; Protocol Last Admin: 06/08/23 21:21 Dose: 50 mg Famotidine (Famotidine/Pf 20 Mg/2 Ml Vial) 20 mg IVPUSH DAILY [facility] Last Admin: 06/10/23 08:35 Dose: 20 mg Glucose (Glucose Gel 15 Gm Gel..Gram.) 15 gm PO Q15M PRN; Protocol PRN Reason: per Hypoglycemia Standing Ord. Heparin Sodium (Porcine) (Heparin Sodium,Porcine 5,000 Unit/Ml Vial) 4,500 unit 40 unit/kg (4500 unit) IVPUSH PROTOCOL BOLUS PRN; Protocol PRN Reason: 40 unit/kg - Heparin Protocol Heparin Sodium (Porcine) (Heparin Sodium,Porcine 5,000 Unit/Ml Vial) 9,000 unit 80 unit/kg (9000 unit) IVPUSH PROTOCOL BOLUS PRN; Protocol PRN Reason: 80 unit/kg - Heparin Protocol Hydromorphone HCl (Hydromorphone Hcl 0.5 Mg/0.5 Ml Syringe) 0.5 mg IVPUSH Q2H PRN; Protocol PRN Reason: Pain, Moderate(Pain Scale 4-6) Last Admin: 06/09/23 18:06 Dose: 0.5 mg Dextrose (D10) 250 mls @ 750 mls/hr IV Q15M PRN; Protocol PRN Reason: per Hypoglycemia Standing Ord. Piperacillin Sod/Tazobactam (Sod 4.5 gm/ Sodium Chloride) 100 mls @ 200 mls/hr IV Q6H [facility] Last Infusion: 06/10/23 12:55 Dose: Infused Furosemide 200 mg/ Sodium (Chloride) 100 mls @ 1 mls/hr IVCONT .Q24H [facility] Last Admin: 06/10/23 08:33 Dose: 5 mg/hr, 2.5 mls/hr Vancomycin HCl 750 mg/ Sodium (Chloride) 265 mls @ 265 mls/hr IV Q12H [facility] Last Infusion: 06/10/23 13:30 Dose: Infused Dextrose (D5w) 1,000 mls @ 50 mls/hr IVCONT .Q20H [facility] Last Admin: 06/10/23 10:05 Dose: 50 mls/hr Valproic Acid 750 mg/ Dextrose 57.5 mls @ 57.5 mls/hr IV BID [facility] Last Infusion: 06/10/23 09:45 Dose: Infused Heparin Sodium/Sodium Chloride (Heparin Sodium,Porcine/1/2ns) 25,000 unit in 250 mls @ 0 mls/hr IVCONT .Q0M [facility]; Protocol Last Admin: 06/10/23 10:04 Dose: 8.93 units/kg/hr, 10 mls/hr Insulin Human Lispro (Insulin Lispro 100 Unit/Ml 3 Ml Vial) 0 unit SUBCUT Q6H [facility]; Protocol Last Admin: 06/10/23 12:28 Dose: 4 unit Lamotrigine (Lamotrigine 100 Mg Tablet) 100 mg PO BID [facility] Last Admin: 06/10/23 09:04 Dose: Not Given Lorazepam (Lorazepam 1 Mg Tablet) 1 mg PO BEDTIME [facility] Last Admin: 05/28/23 20:58 Dose: 1 mg Lorazepam (Lorazepam 2 Mg/Ml Vial) 0.5 mg IVPUSH Q2H PRN PRN Reason: Agitation Last Admin: 06/09/23 23:50 Dose: 0.5 mg Ondansetron HCl (Ondansetron Hcl 4 Mg/2 Ml Vial) 4 mg IVPUSH Q8H PRN PRN Reason: Nausea and Vomiting Pharmacy Consult (Consult Rx Vancomycin Dosing) 1 each MISCELLANE DAILY PRN PRN Reason: Consult order Sodium Chloride (0.9 % Sodium Chloride Flush 3 Ml Syringe) 3 ml IVFLUSH QSHIFT [facility] Last Admin: 06/10/23 16:00 Dose: Not Given Thyroid (Thyroid,Pork 30 Mg Tablet) 120 mg PO DAILY@0630 [facility] Last Admin: 06/10/23 06:10 Dose: Not Given Home Medications ?Medication ?Instructions ?Recorded ?Confirmed ?Last Taken ?Type acetaminophen 325 mg tablet 650 mg PO Q6H PRN Pain 05/27/23 05/27/23 Unknown History atorvastatin 40 mg tablet 40 mg PO BEDTIME 05/27/23 05/27/23 Unknown History clozapine 100 mg tablet 100 mg PO BID 05/27/23 05/27/23 Unknown History clozapine 50 mg tablet 50 mg PO BEDTIME 05/27/23 05/27/23 Unknown History divalproex 250 mg tablet,delayed 250 mg PO BID 05/27/23 05/27/23 Unknown History release (Depakote) divalproex 500 mg tablet,delayed 500 mg PO BID 05/27/23 05/27/23 Unknown History release (Depakote) lorazepam 1 mg tablet 1 mg PO Q4H PRN becca 05/27/23 05/27/23 Unknown History magnesium hydroxide 400 mg/5 mL 30 ml PO BEDTIME PRN Constipation 05/27/23 05/27/23 Unknown History oral suspension (Milk of Magnesia) melatonin 3 mg tablet 9 mg PO BEDTIME PRN Insomnia 05/27/23 05/27/23 Unknown History thyroid (pork) 120 mg tablet (DIRECT MARKETING REPRESENTATIVE 120 mg PO DAILY@0630 05/27/23 05/27/23 Unknown History Thyroid) Physical Exam 2 Vital Signs: Vital Signs: Last Vital Signs Temp 99.5 F 06/10/23 16:00 Pulse 110 H 06/10/23 16:00 Resp 17 06/10/23 16:00 BP 147/73 H 06/10/23 16:00 Pulse Ox 91 L 06/10/23 16:00 O2 Del Method High Flow Nasal C annula 06/10/23 16:00 O2 Flow Rate 45 06/10/23 16:00 FiO2 45 06/10/23 16:00 Oxygen Flow Rate 15 05/29/23 06:00 BMI result Body Mass Index 38.7 Const: General: ill appearing and lethargic Nutritional Appearance: average body habitus Orientation/consciousness: oriented to person and lethargic HEENT: Head: Yes normal to inspection Ears: hearing grossly normal bilaterally Mouth: Normal oral and palatal mucosa present Cardio: Jugular venous distension: no JVD Palpation: normal PMI Rate: t achycardic GI: Inspection: Yes normal to inspection Palpation (GI): Soft to palpation Neuro: General: oriented to person Extrem: General: Yes normal to inspection Psych: Appearance: grossly normal Objective Labs and Meds 06/10/23 09:38 06/10/23 06:06 Lab results: Laboratory Results - last 24 hr 06/09/23 06/09/23 06/09/23 17:39 17:58 18:06 WBC RBC Hgb Hct MCV MCH MCHC RDW Plt Count MPV Immature Gran % (Auto) Neut % (Auto) Lymph % (Auto) [place] % (Auto) Eos % (Auto) Baso % (Auto) Lymph # (Auto) [place] # (Auto) Eos # (Auto) Baso # (Auto) Abs Immat Gran (auto) Absolute Neuts (auto) Absolute Nucleated RBC Nucleated RBC % (auto) PT INR aPTT Heparin Protocol VBG pH 7.52 H VBG pCO2 43 VBG pO2 107 VBG HCO3 36 H VBG O2 Saturation TNP VBG Base Excess 12.4 Sodium 154 H Potassium 2.9 L* Chloride 108 Carbon Dioxide 31 H Anion Gap 18 BUN 27 H Creatinine 0.95 Estim Creat Clear Calc 78.5 Estimated GFR 59 POC Glucose 175 H Random Glucose 205 H Calcium 9.1 Phosphorus 2.4 L Magnesium 1.7 Random Vancomycin 06/09/23 06/09/23 06/10/23 21:07 23:36 06:06 WBC 9.7 RBC 2.70 L Hgb 8.2 L Hct 26.2 L MCV 97.0 MCH 30.4 MCHC 31.3 RDW 14.8 Plt Count 317 MPV 10.3 Immature Gran % (Auto) 1.3 H Neut % (Auto) 74.0 H Lymph % (Auto) 18.3 L [place] % (Auto) 4.4 Eos % (Auto) 1.5 Baso % (Auto) 0.5 Lymph # (Auto) 1.8 [place] # (Auto) 0.4 Eos # (Auto) 0.2 Baso # (Auto) 0.1 Abs Immat Gran (auto) 0.13 H Absolute Neuts (auto) 7.2 Absolute Nucleated RBC 0.000 Nucleated RBC % (auto) 0.0 PT INR aPTT Heparin Protocol VBG pH VBG pCO2 VBG pO2 VBG HCO3 VBG O2 Saturation VBG Base Excess Sodium 152 H Potassium 3.1 L Chloride 107 Carbon Dioxide 31 H Anion Gap 17 BUN 20 H Creatinine 0.78 Estim Creat Clear Calc 94.0 Estimated GFR > 60 POC Glucose 183 H Random Glucose 192 H Calcium 9.0 Phosphorus 2.9 Magnesium 1.6 Random Vancomycin 17.2 06/10/23 06/10/23 06/10/23 06:07 09:38 12:11 WBC 11.5 H RBC 2.86 L Hgb 8.8 L Hct 27.5 L MCV 96.2 MCH 30.8 MCHC 32.0 RDW 14.8 Plt Count 341 MPV 10.1 Immature Gran % (Auto) Neut % (Auto) Lymph % (Auto) [place] % (Auto) Eos % (Auto) Baso % (Auto) Lymph # (Auto) [place] # (Auto) Eos # (Auto) Baso # (Auto) Abs Immat Gran (auto) Absolute Neuts (auto) Absolute Nucleated RBC 0.020 H Nucleated RBC % (auto) 0.2 PT 14.0 H INR 1.2 H aPTT Heparin Protocol 27.9 L VBG pH 7.63 H* VBG pCO2 37 VBG pO2 150 VBG HCO3 39 H VBG O2 Saturation 99.0 VBG Base Excess 17.2 Sodium Potassium Chloride Carbon Dioxide Anion Gap BUN Creatinine Estim Creat Clear Calc Estimated GFR POC Glucose 214 H Random Glucose Calcium Phosphorus Magnesium Random Vancomycin 06/10/23 16:05 WBC RBC Hgb Hct MCV MCH MCHC RDW Plt Count MPV Immature Gran % (Auto) Neut % (Auto) Lymph % (Auto) [place] % (Auto) Eos % (Auto) Baso % (Auto) Lymph # (Auto) [place] # (Auto) Eos # (Auto) Baso # (Auto) Abs Immat Gran (auto) Absolute Neuts (auto) Absolute Nucleated RBC Nucleated RBC % (auto) PT INR aPTT Heparin Protocol 33.0 L VBG pH VBG pCO2 VBG pO2 VBG HCO3 VBG O2 Saturation VBG Base Excess Sodium Potassium Chloride Carbon Dioxide Anion Gap BUN Creatinine Estim Creat Clear Calc Estimated GFR POC Glucose Random Glucose Calcium Phosphorus Magnesium Random Vancomycin ECG Attestation: I personally reviewed and interpreted this ECG as follows: Imaging Attestation imaging: I personally reviewed and interpreted this imaging study as follows: Assessment and Plan (1) High degree atrioventricular block: Status: Acute (2) Paroxysmal atrial fibrillation: Status: Acute Plan We had a detailed discussion with the patient, patient's family, primary team, inpatient jig box operator Patient adamant to not have the pacemaker. Spoke with the family who wanted to go with the patient's wishes knowing that there is a high risk of asystole and patient's mental status is waxing and waning Patient has chronic morbidities and along with acute respiratory failure. Currently DNR/DNI Thank you for the consult Please tigerconnect if you have any questions. Procedures Date of Service Date of Service: 06/10/23
[2023-06-10] MEDS: Heparin Sodium,Porcine 5,000 UNIT/ML VIAL 9000 UNIT IVPUSH (16:39)
[2023-06-10 18:21] LABS: Glucose, Whole Blood 192 mg/dL (60-115)
[2023-06-10 18:43] LABS: Anion Gap 17 (12-20); Blood Urea Nitrogen 20 mg/dL (9-16); Calcium 8.5 mg/dL (8.4-10.2); Carbon Dioxide 35 mmol/L (22-29); Chloride 104 mmol/L (96-108); Creatinine Clr Calc Pharmacy 84.2; Estimated Glomerular Filt Rate > 60; Glucose Random 189 mg/dL (60-115); Magnesium 1.5 mg/dL (1.6-2.6); Phosphorus 2.8 mg/dL (2.7-4.5); Potassium 3.1 mmol/L (3.3-5.1); Sodium 153 mmol/L (135-145)
[2023-06-10] MEDS: Magnesium Sulfate/H2O 2 GM/50 ML PIGGYBACK IV (19:39)
[2023-06-10 21:48] LABS: VBG Base Excess 20.9 mmol/L; VBG HCO3 44 mmol/L (22-26); VBG pCO2 47 mmHg; VBG pH 7.58 (7.32-7.43); VBG pO2 109 mmHg
[2023-06-10 22:31] LABS: Vancomycin Random 14.6 mcg/mL (15-20)
[2023-06-10] MEDS: acetaZOLAMIDE sodium 500 MG VIAL IVPUSH (22:51)
[2023-06-10 23:17] LABS: PTT Heparin Drip 50.1 SEC (53-77.9)
[2023-06-10] MEDS: Heparin Sodium,Porcine 5,000 UNIT/ML VIAL 4500 UNIT IVPUSH (23:33)
[2023-06-10 23:40] LABS: Venous Blood Gas Refer to POC result
[2023-06-10 23:50] LABS: Glucose, Whole Blood 172 mg/dL (60-115)
[2023-06-11] VITALS (34 sets, daily range): BP systolic 95–139; BP diastolic 42–76; PULSE 23–120; RESP 13–29; TEMP 36.5–37.5; O2SAT 88–96; BMI 37.3
[2023-06-11 00:44] LABS: Lamotrigine Lamictal 5.5 mcg/mL (2.5-15.0)
[2023-06-11 00:52] LABS: Clozapine (Clozaril) 211 mcg/L; Norclozapine 67 mcg/L (25-400)
[2023-06-11] MEDS: Heparin Sodium,Porcine/1/2NS 25,000 UNIT/250 ML IV.SOLN 16.71 UNIT IVCONT ×2 (02:54→17:38)
[2023-06-11] MEDS: Piperacillin Sodium/Tazobactam 4.5 GM in 0.9 % Sodium Chloride 100 ML IV ×4 (05:15→21:48)
[2023-06-11 05:58] LABS: MANUAL DIFF FLAG NO
[2023-06-11 06:01] LABS: Basophils Absolute Auto 0.1 X10*3/uL (0.0-0.2); Basophils Percent Auto 0.5 % (0-2); Eosinophils Absolute Auto 0.3 X10*3/uL (0.0-0.4); Eosinophils Percent Auto 2.7 % (0-4); Hematocrit 26.6 % (37.0-47.0); Hemoglobin 8.2 g/dl (12.0-16.0); Imm Gran Abs Auto 0.15 X10*3/uL (0.00-0.03); Imm Gran Pct Auto 1.3 % (0.0-0.4); Lymphocytes Absolute Auto 2.3 X10*3/uL (1.2-4.9); Lymphocytes Percent Auto 19.5 % (20-40); Mean Corpuscular HGB Conc 30.8 g/dl (31.0-35.0); Mean Corpuscular Hemoglobin 30.4 pg (27.0-33.0); Mean Corpuscular Volume 98.5 fL (80.0-98.0); Monocytes Absolute Auto 0.5 X10*3/uL (0.1-1.2); Monocytes Percent Auto 4.1 % (2-11); NRBC Pct Auto 0.2 /100WBC (0.0-0.2); Neutrophils Absolute Auto 8.4 x10*3/uL (2.0-8.3); Neutrophils Percent Auto 71.9 % (45-73); Platelet Count 296 X10*3/uL (160-400); Red Cell Distribution Width 14.9 % (11.0-16.0); White Blood Count 11.7 X10*3/uL (4.8-10.8)
[2023-06-11 06:02] LABS: VBG Base Excess 14.2 mmol/L; VBG HCO3 37 mmol/L (22-26); VBG pCO2 40 mmHg; VBG pH 7.57 (7.32-7.43); VBG pO2 202 mmHg
[2023-06-11 06:04] LABS: Venous Blood Gas Refer to POC result
[2023-06-11] MEDS: Dextrose 5 % 1,000 ML 50 ML IVCONT (06:04)
[2023-06-11] MEDS: Insulin Lispro 100 UNIT/ML 3 ML VIAL SUBCUT ×3 (06:05→18:09)
[2023-06-11 06:17] LABS: INTERNATIONAL NORM RATIO 1.2 (0.9-1.1); Prothrombin Time 14.7 SEC (11.1-13.3)
[2023-06-11 06:19] LABS: PTT Heparin Drip 56.4 SEC (53-77.9)
[2023-06-11 06:23] LABS: Anion Gap 15 (12-20); Blood Urea Nitrogen 20 mg/dL (9-16); Calcium 8.4 mg/dL (8.4-10.2); Carbon Dioxide 32 mmol/L (22-29); Chloride 104 mmol/L (96-108); Creatinine Clr Calc Pharmacy 85.3; Estimated Glomerular Filt Rate > 60; Glucose Random 193 mg/dL (60-115); Magnesium 1.9 mg/dL (1.6-2.6); Phosphorus 2.9 mg/dL (2.7-4.5); Potassium 3.1 mmol/L (3.3-5.1); Sodium 148 mmol/L (135-145)
[2023-06-11] MEDS: Potassium Chloride/H20 10 MEQ/100 ML PIGGYBACK 100 MEQ IV ×4 (06:38→10:21)
--- NOTE | 2023-06-11 07:57 | ECG_ITS ---
Test Reason : QTc Monitoring Blood Pressure : / mmHG Vent. Rate : 097 BPM Atrial Rate : 337 BPM P-R Int : 000 ms QRS Dur : 078 ms QT Int : 346 ms P-R-T Axes : 000 072 -12 degrees QTc Int : 439 ms Atrial flutter with variable A-V block Abnormal ECG When compared with ECG of 10-JUN-2023 11:32, No significant change was found Referred By: Chanel Coker Electronically Signed By:ERASTO GUTHRIE
--- NOTE | 2023-06-11 08:01 | PM.CCPN ---
Subjective Subjective Date of Service: 06/11/23 Interval History: another episode of asystole, lasting 1 minute, resolved w/o intervention 06/09 PM; of note, Ms. Townsend offered pacemaker 06/09 AM; when first discussed, Ms. Townsend answered questions appropriately, appeared to understand pros vs cons, risks vs benefits of pacemaker; however, upon obtaining formal consent, Ms. Townsend appeared disorganized, and ultimately declined pacemaker; cardiology spoke with Ms. Townsend's brother and healthcare proxy, who deferred pacemaker at that time, especially considering Ms. Townsend may need intubation for procedure, which appears against her wishes as outlined in Ms. Townsend's living will; I spoke with Ms. Townsend's brother later, during which he expressed he would prefer Ms. Townsend recieve a pacemaker, but would like more time to discuss with both Ms. Townsend and Ms. Townsend's sister; I expressed that Ms. Townsend may be intermittently appropriate, and therefore may intermittently have capacity to decide her medical care going forward; I expressed to Ms. Townsend's bother that he as the healthcare proxy is very likely going to be tasked with making medical decisions for Ms. Townsend going forward Critical Care Time (minutes): 60 Physical Exam Vital Signs: Vital Signs: Last Vital Signs Temp 98.8 F 06/11/23 06:00 Pulse 107 H 06/11/23 07:00 Resp 25 H 06/11/23 07:42 BP 139/76 06/11/23 07:00 Pulse Ox 91 L 06/11/23 07:00 O2 Del Method High Flow Nasal C annula 06/11/23 07:00 O2 Flow Rate 45 06/11/23 07:00 FiO2 45 06/11/23 07:00 Oxygen Flow Rate 15 05/29/23 06:00 BMI result Body Mass Index 37.3 Const: General: healthy appearing, comfortable, no acute distress, well developed, alert, awake and Physically active Orientation/consciousness: oriented to person HEENT: Head: Yes normal to inspection, Yes normocephalic and Yes atraumatic Eyes: General: appearance normal, both eyes and all related structures Neck: Neck: Yes normal visual inspection, Yes full ROM, Yes no meningeal signs and Yes supple Chest: Chest palpation & inspection: normal inspection of the chest Resp: Other: minimal rales; no appreciable rhonchi, wheezing Effort & Inspection: normal respiratory effort Cardio: Rate: tachycardic Rhythm: abnormal rhythm GI: Inspection: Yes normal to inspection, No Abdominal wall edema and No distended Palpation (GI): Soft to palpation, not firm, nontender, no guarding and not rigid Skin: General skin exam: no rashes or lesions noted Neuro: General: oriented to person, tone normal, moves all extremities and no meningeal signs Extrem: Other: 1+ pitting edema to bilateral knees General: Yes normal to inspection, Yes full ROM and Yes capillary refill normal Psych: Other: appears more disorganized and paranoid today vs previous days Objective Data Labs 06/11/23 05:49 06/11/23 05:49 Labs: Laboratory Results - last 24 hr 06/08/23 06/10/23 06/10/23 08:23 09:38 12:11 WBC 11.5 H RBC 2.86 L Hgb 8.8 L Hct 27.5 L MCV 96.2 MCH 30.8 MCHC 32.0 RDW 14.8 Plt Count 341 MPV 10.1 Immature Gran % (Auto) Neut % (Auto) Lymph % (Auto) [place] % (Auto) Eos % (Auto) Baso % (Auto) Lymph # (Auto) [place] # (Auto) Eos # (Auto) Baso # (Auto) Abs Immat Gran (auto) Absolute Neuts (auto) Absolute Nucleated RBC 0.020 H Nucleated RBC % (auto) 0.2 PT 14.0 H INR 1.2 H aPTT Heparin Protocol 27.9 L VBG pH VBG pCO2 VBG pO2 VBG HCO3 VBG O2 Saturation VBG Base Excess Sodium Potassium Chloride Carbon Dioxide Anion Gap BUN Creatinine Estim Creat Clear Calc Estimated GFR POC Glucose 214 H Random Glucose Calcium Phosphorus Magnesium Random Vancomycin Lamotrigine 5.5 Clozapine 211 Norclozapine 67 06/10/23 06/10/23 06/10/23 16:05 18:06 18:18 WBC RBC Hgb Hct MCV MCH MCHC RDW Plt Count MPV Immature Gran % (Auto) Neut % (Auto) Lymph % (Auto) [place] % (Auto) Eos % (Auto) Baso % (Auto) Lymph # (Auto) [place] # (Auto) Eos # (Auto) Baso # (Auto) Abs Immat Gran (auto) Absolute Neuts (auto) Absolute Nucleated RBC Nucleated RBC % (auto) PT INR aPTT Heparin Protocol 33.0 L VBG pH VBG pCO2 VBG pO2 VBG HCO3 VBG O2 Saturation VBG Base Excess Sodium 153 H Potassium 3.1 L Chloride 104 Carbon Dioxide 35 H Anion Gap 17 BUN 20 H Creatinine 0.87 Estim Creat Clear Calc 84.2 Estimated GFR > 60 POC Glucose 192 H Random Glucose 189 H Calcium 8.5 Phosphorus 2.8 Magnesium 1.5 L Random Vancomycin Lamotrigine Clozapine Norclozapine 06/10/23 06/10/23 06/10/23 21:00 21:41 22:31 WBC RBC Hgb Hct MCV MCH MCHC RDW Plt Count MPV Immature Gran % (Auto) Neut % (Auto) Lymph % (Auto) [place] % (Auto) Eos % (Auto) Baso % (Auto) Lymph # (Auto) [place] # (Auto) Eos # (Auto) Baso # (Auto) Abs Immat Gran (auto) Absolute Neuts (auto) Absolute Nucleated RBC Nucleated RBC % (auto) PT INR aPTT Heparin Protocol 50.1 L D VBG pH 7.58 H VBG pCO2 47 VBG pO2 109 VBG HCO3 44 H VBG O2 Saturation 100.0 VBG Base Excess 20.9 Sodium Potassium Chloride Carbon Dioxide Anion Gap BUN Creatinine Estim Creat Clear Calc Estimated GFR POC Glucose Random Glucose Calcium Phosphorus Magnesium Random Vancomycin 14.6 L Lamotrigine Clozapine Norclozapine 06/10/23 06/11/23 06/11/23 23:47 05:49 05:56 WBC 11.7 H RBC 2.70 L Hgb 8.2 L Hct 26.6 L MCV 98.5 H MCH 30.4 MCHC 30.8 L RDW 14.9 Plt Count 296 MPV 10.0 Immature Gran % (Auto) 1.3 H Neut % (Auto) 71.9 Lymph % (Auto) 19.5 L [place] % (Auto) 4.1 Eos % (Auto) 2.7 Baso % (Auto) 0.5 Lymph # (Auto) 2.3 [place] # (Auto) 0.5 Eos # (Auto) 0.3 Baso # (Auto) 0.1 Abs Immat Gran (auto) 0.15 H Absolute Neuts (auto) 8.4 H Absolute Nucleated RBC 0.020 H Nucleated RBC % (auto) 0.2 PT 14.7 H INR 1.2 H aPTT Heparin Protocol 56.4 VBG pH 7.57 H VBG pCO2 40 VBG pO2 202 VBG HCO3 37 H VBG O2 Saturation 99.0 VBG Base Excess 14.2 Sodium 148 H Potassium 3.1 L Chloride 104 Carbon Dioxide 32 H Anion Gap 15 BUN 20 H Creatinine 0.86 Estim Creat Clear Calc 85.3 Estimated GFR > 60 POC Glucose 172 H Random Glucose 193 H Calcium 8.4 Phosphorus 2.9 Magnesium 1.9 Random Vancomycin Lamotrigine Clozapine Norclozapine Microbiology Microbiology Results: Microbiology 06/02/23 11:46 Blood - Venous Blood Culture - Final No growth after 5 days. 06/02/23 11:46 Blood - Venous Blood Culture - Final No growth after 5 days. 06/02/23 11:28 Lung - Suctioned Gram Stain - Final 06/02/23 11:28 Lung - Suctioned Sputum Culture - Final 05/29/23 11:40 Blood - Venous Blood Culture - Final No growth after 5 days. 05/29/23 11:55 Blood - Venous Blood Culture - Final No growth after 5 days. 05/31/23 00:20 Sputum - Suctioned Gram Stain - Final 05/31/23 00:20 Sputum - Suctioned Sputum Culture - Final 05/27/23 13:59 Blood - Venous Blood Culture - Final No growth after 5 days. 05/27/23 13:55 Blood - Venous Blood Culture - Final Coag negative Staphylococcus 05/28/23 Unknown Urine clean catch - Urine chandler top Urine Culture - Final Progress Note: A&P Assessment and plan (1) Asystole: Status: Acute (2) Paroxysmal atrial fibrillation: Status: Acute (3) Acute respiratory failure with hypoxia: Status: Acute (4) Acute pulmonary edema: Status: Acute (5) Schizoaffective disorder, bipolar type: Status: Acute Plan Patient is a 62 Y F with metabolic syndrome, non-insulin dependent diabetes mellitus, hypothyroidism, obstructive sleep apnea non-compliant w/ CPAP, bipolar disease, initially presenting to emergency department on 05/26 w/ diarrhea, found to have dehydration, electrolyte abnormalities; on 05/29, developed hypoxia, likely d/t volume overload, c/f aspiration, pneumonia, transferred ICU, intubated, extubated, re-intubated, and extubated; of note, ICU course c/b recurrent astystolic events N: no acute issues CV: symptomatic bradycardia/sinus pauses/asystole, unclear etiology; continue to avoid audra-blocking agents; candidate for pacemaker, though d/t fluctuating psychosis/paranoia, to re-assess appropriateness to consent; paroxysmal atrial flutter/fibrillation, heparin gtt; appreciate cardiology recommendations R: hypoxic respiratory failure, likely d/t volume overload, c/f aspiration, pneumonia, intubated/extubated/re-intubated/extubated; obstructive sleep apnea GI: NPO; formal speech/swallow today : volume overload, furosemide BID; hypernatremia, D5W gtt; to continue to closely monitor electrolytes H: no acute issues ID: c/f aspiration, pneumonia; empiric vancomycin, zosyn E: no acute issues; non-insulin dependent diabetes mellitus, hypothyroidism P: bipolar disease; appreciate psychiatry recommendations Quality Stroke Does the patient have a stroke diagnosis?: No VTE Prior VTE?: No VTE Risk Level:: Medical - moderate - high VTE Device Contraindication: Treatment Not Indicated VTE Drug Contraindication: N/A - Med Ordered
[2023-06-11] MEDS: Furosemide 20 MG/2 ML VIAL 10 MG IVPUSH ×2 (08:03→17:36)
[2023-06-11] MEDS: 0.9 % Sodium Chloride Flush 3 ML SYRINGE IVFLUSH ×2 (08:03→16:56)
[2023-06-11] MEDS: Famotidine/PF 20 MG/2 ML VIAL IVPUSH (08:03)
[2023-06-11] MEDS: Valproic Acid (as Sodium Salt) 750 MG in Dextrose 5 % 50 ML 57.5 MG IV ×2 (08:04→20:00)
[2023-06-11 09:22] LABS: Glucose, Whole Blood 175 mg/dL (60-115)
--- NOTE | 2023-06-11 10:56 | MHC.SL.SWA ---
Speech Pathologist Impression: Risk of Aspiration Due to: Hx of Recent Extubation Dysphasia Diet Status: Liquid Consistency and Strategies for Safe Swallow: Liquid Intake Recommendation: Thin Liquid Intake Strategies: Unrestricted Solid Food Consistency: Dietary Recommendations: Chopped/Advanced (NDD3) Additional Modifications to Solid Foods: Patient will initially need full assistance with meals, but should be able to advance to being more independent with increased strength. Softer textures recommended at this time secondary to overall weakness, but will likely be able to advance to regular diet when presentation improves. Oral Medication Intake: Whole with Liquid Please contact the pharmacy regarding appropriate crushable or liquid drug formulations that are available whenever modified delivery is recommended. Compensatory Strategies and Precautions to be Taken for Safe Swallow: Sitting Upright (90 deg) Liquids from Cup Liquids from Straw Alternate Liquids/Solids Supervision While Eating and Drinking for Safe Swallow: Total Assistance (1:1) Foods to Avoid: Dry, crunchy or hard to chew solids. Swallowing Recommended Treatments: Compens. Strategy Educat. Recommendation for Speech: Inpatient Speech Therapy Comment: Patient presents with a mild oral phase dysphagia secondary to generalized weakness at this time. Patient tolerates thin liquids by cup sip or straw sip well. Recommend UPGRADE from NPO to Chopped/Advanced (NDD3) with THIN liquids pills whole with liquid. Patient will likely be able to advance to Regular diet as overall strength improves. HEM INSPECTOR to f/u 1-2X for toleration/re-assessment as warranted. , RD, RN notified of recommendations by secure text. Frequency/Duration: Date Range for Service Req: Timeline to reassess: Electronic Technician Clinican/Clinical Fellow: No Supervisory Statement: I have reviewed and agree with the student/clinical fellow's documentation: N/A Speech Language Pathologist: Krystina Huffman M.A., [facility]-HEM INSPECTOR
[2023-06-11] MEDS: vancomycin HCL 750 MG in 0.9 % Sodium Chloride 250 ML 265 MG IV ×2 (11:25→22:24)
[2023-06-11 12:00] LABS: PTT Heparin Drip 55.3 SEC (53-77.9)
[2023-06-11 12:34] LABS: Glucose, Whole Blood 161 mg/dL (60-115)
--- NOTE | 2023-06-11 14:10 | MHC.CM.PN ---
Pt continues care in ICU: presently on hi flow N/C O2 with waxing cognitive status: pt's brother is primary HCP and has been making medical decisions on pt's behalf. Pt is not medically stable to transfer out of ICU at this time. CM to follow for ? return to [place] INPT psych vs rehab placement.
[2023-06-11 18:03] LABS: Glucose, Whole Blood 154 mg/dL (60-115)
[2023-06-11 18:29] LABS: Anion Gap 15 (12-20); Blood Urea Nitrogen 20 mg/dL (9-16); Calcium 8.2 mg/dL (8.4-10.2); Carbon Dioxide 30 mmol/L (22-29); Chloride 105 mmol/L (96-108); Creatinine Clr Calc Pharmacy 87.6; Estimated Glomerular Filt Rate > 60; Glucose Random 158 mg/dL (60-115); Magnesium 1.9 mg/dL (1.6-2.6); Potassium 3.4 mmol/L (3.3-5.1); Sodium 147 mmol/L (135-145)
[2023-06-11 21:16] LABS: Creatinine Clr Calc Pharmacy 82.6; Estimated Glomerular Filt Rate > 60
[2023-06-11 23:18] LABS: Glucose, Whole Blood 162 mg/dL (60-115)
[2023-06-12] VITALS (29 sets, daily range): BP systolic 102–149; BP diastolic 48–85; PULSE 69–99; RESP 15–33; TEMP 34.7–36.9; O2SAT 90–100; BMI 37.9
[2023-06-12] MEDS: Dextrose 5 % 1,000 ML 50 ML IVCONT (00:07)
[2023-06-12 04:58] LABS: Basophils Absolute Auto 0.1 X10*3/uL (0.0-0.2); Basophils Percent Auto 0.7 % (0-2); Eosinophils Absolute Auto 0.5 X10*3/uL (0.0-0.4); Eosinophils Percent Auto 4.8 % (0-4); Hematocrit 24.4 % (37.0-47.0); Hemoglobin 7.5 g/dl (12.0-16.0); Imm Gran Abs Auto 0.12 X10*3/uL (0.00-0.03); Imm Gran Pct Auto 1.1 % (0.0-0.4); Lymphocytes Absolute Auto 2.7 X10*3/uL (1.2-4.9); Lymphocytes Percent Auto 25.3 % (20-40); MANUAL DIFF FLAG NO; Mean Corpuscular HGB Conc 30.7 g/dl (31.0-35.0); Mean Corpuscular Hemoglobin 30.6 pg (27.0-33.0); Mean Corpuscular Volume 99.6 fL (80.0-98.0); Mean Platelet Volume 9.3 fL (9.4-12.3); Monocytes Absolute Auto 0.4 X10*3/uL (0.1-1.2); Monocytes Percent Auto 3.5 % (2-11); NRBC Pct Auto 0.2 /100WBC (0.0-0.2); Neutrophils Absolute Auto 6.9 x10*3/uL (2.0-8.3); Neutrophils Percent Auto 64.6 % (45-73); Platelet Count 268 X10*3/uL (160-400); Red Blood Count 2.45 X10*6/uL (4.20-5.50); Red Cell Distribution Width 14.7 % (11.0-16.0); White Blood Count 10.7 X10*3/uL (4.8-10.8)
[2023-06-12] MEDS: Piperacillin Sodium/Tazobactam 4.5 GM in 0.9 % Sodium Chloride 100 ML IV ×4 (04:59→22:41)
[2023-06-12 05:17] LABS: Anion Gap 13 (12-20); Blood Urea Nitrogen 21 mg/dL (9-16); Calcium 8.3 mg/dL (8.4-10.2); Carbon Dioxide 30 mmol/L (22-29); Chloride 105 mmol/L (96-108); Creatinine Clr Calc Pharmacy 84.5; Estimated Glomerular Filt Rate > 60; Glucose Random 143 mg/dL (60-115); Magnesium 1.9 mg/dL (1.6-2.6); Phosphorus 3.2 mg/dL (2.7-4.5); Potassium 3.2 mmol/L (3.3-5.1); Sodium 145 mmol/L (135-145)
[2023-06-12] MEDS: Potassium Chloride/H20 10 MEQ/100 ML PIGGYBACK 100 MEQ IV ×4 (05:58→09:51)
[2023-06-12 06:22] LABS: PTT Heparin Drip 48.2 SEC (53-77.9)
[2023-06-12] MEDS: Heparin Sodium,Porcine 5,000 UNIT/ML VIAL 4500 UNIT IVPUSH (06:29)
[2023-06-12] MEDS: Furosemide 20 MG/2 ML VIAL 10 MG IVPUSH ×2 (07:35→17:45)
[2023-06-12] MEDS: Famotidine/PF 20 MG/2 ML VIAL IVPUSH (07:35)
[2023-06-12] MEDS: 0.9 % Sodium Chloride Flush 3 ML SYRINGE IVFLUSH (07:35)
[2023-06-12] MEDS: Heparin Sodium,Porcine/1/2NS 25,000 UNIT/250 ML IV.SOLN 18.95 UNIT IVCONT (07:36)
[2023-06-12] MEDS: Valproic Acid (as Sodium Salt) 750 MG in Dextrose 5 % 50 ML 57.5 MG IV ×2 (07:38→21:13)
--- NOTE | 2023-06-12 07:57 | ECG_ITS ---
Test Reason : qtc check Blood Pressure : / mmHG Vent. Rate : 081 BPM Atrial Rate : 081 BPM P-R Int : 174 ms QRS Dur : 084 ms QT Int : 372 ms P-R-T Axes : 047 072 025 degrees QTc Int : 432 ms Normal sinus rhythm Normal ECG When compared with ECG of 11-JUN-2023 09:43, Sinus rhythm has replaced Atrial flutter Referred By: Chanel Coker Electronically Signed By:ERASTO GUTHRIE
--- NOTE | 2023-06-12 08:02 | PM.CCPN ---
Subjective Subjective Date of Service: 06/12/23 Interval History: no significant overnight events Critical Care Time (minutes): 60 Physical Exam Vital Signs: Vital Signs: Last Vital Signs Temp 97.5 F 06/12/23 07:00 Pulse 87 06/12/23 07:00 Resp 19 06/12/23 07:58 BP 123/50 L 06/12/23 07:35 Pulse Ox 93 06/12/23 07:00 O2 Del Method High Flow Nasal C annula 06/12/23 07:00 O2 Flow Rate 35 06/12/23 07:00 FiO2 45 06/12/23 07:00 Oxygen Flow Rate 15 05/29/23 06:00 BMI result Body Mass Index 37.9 Objective Data Labs 06/12/23 04:51 06/12/23 04:51 Labs: Laboratory Results - last 24 hr 06/11/23 06/11/23 06/11/23 05:58 11:45 12:28 WBC RBC Hgb Hct MCV MCH MCHC RDW Plt Count MPV Immature Gran % (Auto) Neut % (Auto) Lymph % (Auto) [place] % (Auto) Eos % (Auto) Baso % (Auto) Lymph # (Auto) [place] # (Auto) Eos # (Auto) Baso # (Auto) Abs Immat Gran (auto) Absolute Neuts (auto) Absolute Nucleated RBC Nucleated RBC % (auto) aPTT Heparin Protocol 55.3 Sodium Potassium Chloride Carbon Dioxide Anion Gap BUN Creatinine Estim Creat Clear Calc Estimated GFR POC Glucose 175 H 161 H Random Glucose Calcium Phosphorus Magnesium Random Vancomycin 06/11/23 06/11/23 06/11/23 17:56 18:00 20:58 WBC RBC Hgb Hct MCV MCH MCHC RDW Plt Count MPV Immature Gran % (Auto) Neut % (Auto) Lymph % (Auto) [place] % (Auto) Eos % (Auto) Baso % (Auto) Lymph # (Auto) [place] # (Auto) Eos # (Auto) Baso # (Auto) Abs Immat Gran (auto) Absolute Neuts (auto) Absolute Nucleated RBC Nucleated RBC % (auto) aPTT Heparin Protocol Sodium 147 H Potassium 3.4 Chloride 105 Carbon Dioxide 30 H Anion Gap 15 BUN 20 H Creatinine 0.82 0.87 Estim Creat Clear Calc 87.6 82.6 Estimated GFR > 60 > 60 POC Glucose 154 H Random Glucose 158 H Calcium 8.2 L Phosphorus 3.0 Magnesium 1.9 Random Vancomycin 16.0 06/11/23 06/12/23 06/12/23 23:10 04:51 06:10 WBC 10.7 RBC 2.45 L Hgb 7.5 L Hct 24.4 L MCV 99.6 H MCH 30.6 MCHC 30.7 L RDW 14.7 Plt Count 268 MPV 9.3 L Immature Gran % (Auto) 1.1 H Neut % (Auto) 64.6 Lymph % (Auto) 25.3 [place] % (Auto) 3.5 Eos % (Auto) 4.8 H Baso % (Auto) 0.7 Lymph # (Auto) 2.7 [place] # (Auto) 0.4 Eos # (Auto) 0.5 H Baso # (Auto) 0.1 Abs Immat Gran (auto) 0.12 H Absolute Neuts (auto) 6.9 Absolute Nucleated RBC 0.020 H Nucleated RBC % (auto) 0.2 aPTT Heparin Protocol 48.2 L Sodium 145 Potassium 3.2 L Chloride 105 Carbon Dioxide 30 H Anion Gap 13 BUN 21 H Creatinine 0.84 Estim Creat Clear Calc 84.5 Estimated GFR > 60 POC Glucose 162 H Random Glucose 143 H Calcium 8.3 L Phosphorus 3.2 Magnesium 1.9 Random Vancomycin Microbiology Microbiology Results: Microbiology 06/02/23 11:46 Blood - Venous Blood Culture - Final No growth after 5 days. 06/02/23 11:46 Blood - Venous Blood Culture - Final No growth after 5 days. 06/02/23 11:28 Lung - Suctioned Gram Stain - Final 06/02/23 11:28 Lung - Suctioned Sputum Culture - Final 05/29/23 11:40 Blood - Venous Blood Culture - Final No growth after 5 days. 05/29/23 11:55 Blood - Venous Blood Culture - Final No growth after 5 days. 05/31/23 00:20 Sputum - Suctioned Gram Stain - Final 05/31/23 00:20 Sputum - Suctioned Sputum Culture - Final 05/27/23 13:59 Blood - Venous Blood Culture - Final No growth after 5 days. 05/27/23 13:55 Blood - Venous Blood Culture - Final Coag negative Staphylococcus 05/28/23 Unknown Urine clean catch - Urine chandler top Urine Culture - Final Progress Note: A&P Assessment and plan (1) Asystole: Status: Acute (2) Paroxysmal atrial fibrillation: Status: Acute (3) Acute respiratory failure with hypoxia: Status: Acute (4) Acute pulmonary edema: Status: Acute (5) Aspiration into airway: Status: Acute (6) Schizoaffective disorder, bipolar type: Status: Acute Plan Patient is a 62 Y F with metabolic syndrome, non-insulin dependent diabetes mellitus, hypothyroidism, obstructive sleep apnea non-compliant w/ CPAP, bipolar disease, initially presenting to emergency department on 05/26 w/ diarrhea, found to have dehydration, electrolyte abnormalities; on 05/29, developed hypoxia, likely d/t volume overload, c/f aspiration, pneumonia, transferred ICU, intubated, extubated, re-intubated, and extubated; of note, ICU course c/b recurrent astystolic events N: no acute issues CV: symptomatic bradycardia/sinus pauses/asystole, unclear etiology; continue to avoid audra-blocking agents; paroxysmal atrial flutter/fibrillation, heparin gtt; plan for pacemaker today R: hypoxic respiratory failure, likely d/t volume overload, c/f aspiration, pneumonia, intubated/extubated/re-intubated/extubated; HFNC; wean as tolerated; obstructive sleep apnea; GI: passed speech/swallow; regular diet : volume overload, furosemide BID; hypernatremia, improved; to continue to closely monitor electrolytes H: acute anemia, likely d/t frequent phlebotomy; also on heparin gtt; to continue to monitor for stigmata of bleeding ID: c/f aspiration, pneumonia; empiric vancomycin, zosyn E: no acute issues; non-insulin dependent diabetes mellitus, hypothyroidism P: bipolar disease; appreciate psychiatry recommendations Quality Stroke Does the patient have a stroke diagnosis?: No VTE Prior VTE?: No VTE Risk Level:: Medical - moderate - high VTE Device Contraindication: Treatment Not Indicated VTE Drug Contraindication: N/A - Med Ordered
[2023-06-12] MEDS: Calcium Gluconate/NaCl,Iso-Osm 1 GM/50 ML PLAST..BAG IV (08:45)
--- NOTE | 2023-06-12 09:40 | MHC.CM.PN ---
Pt doing well overall: conversing and in good spirits. Call placed to [place] where pt had been prior to [facility] admission: message left requesting a callback to confirm dates of stay in anticipation of d/c planning needs. CM to follow
[2023-06-12 09:58] LABS: PTT Heparin Drip 48.6 SEC (53-77.9)
--- NOTE | 2023-06-12 10:00 | MHC.CLN ---
F/U PT EXTUBATED DIET ADVANCED TO CHOPPED PER [employer] RECOMMEND 1800DM IN ADDITION TO [employer] DIET RECOMMENDATIONS PT WITH INCREASED NUTRITION RISK R/T PRESSURE INJURIES RECOMMEND ADDING GELATEIN WITH [facility] TO PROMOTE WOUND HEALING SUPP TO PROVIDE 480KCALS, 60G PROTEIN MONITOR PO INTAKE AND ENCOURAGE SUPPLEMENT
[2023-06-12 11:31] LABS: OBS Int Ctl Valid YES; OBS1 NEGATIVE (NEGATIVE)
[2023-06-12] MEDS: vancomycin HCL 750 MG in 0.9 % Sodium Chloride 250 ML 265 MG IV ×2 (11:48→22:26)
[2023-06-12 11:55] LABS: Glucose, Whole Blood 137 mg/dL (60-115)
--- NOTE | 2023-06-12 12:23 | HO.ANESPROP2 ---
[facility] Active Problems Active Problems: All Active Problems Aspiration into airway (Acute) High degree atrioventricular block (Acute) Persistent atrial fibrillation (Acute) Paroxysmal atrial fibrillation (Acute) Septic shock (Acute) Asystole (Acute) Type II diabetes mellitus (Acute) Pulmonary aspiration (Acute) Acute pulmonary edema (Acute) Acute respiratory failure with hypoxia (Acute) Acute congestive heart failure (Acute) Acute dehydration (Acute) Hypocalcemia (Acute) Hypomagnesemia (Acute) Acute hypokalemia (Acute) Viral syndrome (Acute) Fever (Acute) Acute diarrhea (Acute) Bipolar disorder (Acute) Delusional disorder, persecutory type (Acute) Schizoaffective disorder, bipolar type (Acute) Bipolar affective disorder, manic, severe, with psychotic behavior (Acute) PTSD (post-traumatic stress disorder) (Acute) Past Medical History Medical History Hypertension Hyperlipidemia Type II diabetes mellitus PTSD (post-traumatic stress disorder) Patient : No Surgical History Surgical History History of cholecystectomy Social History Social History Household Members: Other Housing: Other Housing Other:: [facility] facility Do you presently have visiting nurse or other home services: No Comment: sitter in room Patient Tobacco Use Status: Never used Tobacco Tobacco use type: Cigarette e-Cigarette/Vaping Use: Never Used Substance Use Type: Caffiene service: No Sexual orientation: Straight/Heterosexual Meds Allergies Allergy/AdvReac Type Severity Reaction Status Date / Time amoxicillin Allergy Unknown Unknown Uncoded 05/27/23 14:06 Pt states no food allergy Allergy Unknown Unknown Uncoded 05/27/23 14:06 Active Medications: Current Medications Acetaminophen (Acetaminophen 325 Mg Tablet) 975 mg PO Q6H PRN PRN Reason: Fever >101 Last Admin: 06/07/23 15:22 Dose: 975 mg Al Hydroxide/Mg Hydroxide (Magnesium Hydrox/Alum Hydrox 30 Ml Oral.Susp) 30 ml PO Q6H PRN PRN Reason: Heartburn/Nausea Last Admin: 05/29/23 05:11 Dose: 30 ml Famotidine (Famotidine/Pf 20 Mg/2 Ml Vial) 20 mg IVPUSH DAILY BERNARDA Last Admin: 06/12/23 07:35 Dose: 20 mg Furosemide (Furosemide 20 Mg/2 Ml Vial) 10 mg IVPUSH BID@0900,1800 [facility]; Protocol Last Admin: 06/12/23 07:35 Dose: 10 mg Glucose (Glucose Gel 15 Gm Gel..Gram.) 15 gm PO Q15M PRN; Protocol PRN Reason: per Hypoglycemia Standing Ord. Heparin Sodium (Porcine) (Heparin Sodium,Porcine 5,000 Unit/Ml Vial) 4,500 unit 40 unit/kg (4500 unit) IVPUSH PROTOCOL BOLUS PRN; Protocol PRN Reason: 40 unit/kg - Heparin Protocol Last Admin: 06/12/23 06:29 Dose: 4,500 unit Heparin Sodium (Porcine) (Heparin Sodium,Porcine 5,000 Unit/Ml Vial) 9,000 unit 80 unit/kg (9000 unit) IVPUSH PROTOCOL BOLUS PRN; Protocol PRN Reason: 80 unit/kg - Heparin Protocol Last Admin: 06/10/23 16:39 Dose: 9,000 unit Hydromorphone HCl (Hydromorphone Hcl 0.5 Mg/0.5 Ml Syringe) 0.5 mg IVPUSH Q2H PRN; Protocol PRN Reason: Pain, Moderate(Pain Scale 4-6) Last Admin: 06/09/23 18:06 Dose: 0.5 mg Dextrose (D10) 250 mls @ 750 mls/hr IV Q15M PRN; Protocol PRN Reason: per Hypoglycemia Standing Ord. Piperacillin Sod/Tazobactam (Sod 4.5 gm/ Sodium Chloride) 100 mls @ 200 mls/hr IV Q6H [facility] Last Admin: 06/12/23 11:53 Dose: 100 mls/hr Vancomycin HCl 750 mg/ Sodium (Chloride) 265 mls @ 265 mls/hr IV Q12H [facility] Last Admin: 06/12/23 11:48 Dose: 265 mls/hr Valproic Acid 750 mg/ Dextrose 57.5 mls @ 57.5 mls/hr IV BID [facility] Last Infusion: 06/12/23 08:58 Dose: Infused Heparin Sodium/Sodium Chloride (Heparin Sodium,Porcine/1/2ns) 25,000 unit in 250 mls @ 0 mls/hr IVCONT .Q0M [facility]; Protocol Last Titration: 06/12/23 11:56 Dose: Infused Insulin Human Lispro (Insulin Lispro 100 Unit/Ml 3 Ml Vial) 0 unit SUBCUT Q6H [facility]; Protocol Last Admin: 06/12/23 11:57 Dose: Not Given Lorazepam (Lorazepam 2 Mg/Ml Vial) 0.5 mg IVPUSH Q2H PRN PRN Reason: Agitation Last Admin: 06/09/23 23:50 Dose: 0.5 mg Ondansetron HCl (Ondansetron Hcl 4 Mg/2 Ml Vial) 4 mg IVPUSH Q8H PRN PRN Reason: Nausea and Vomiting Pharmacy Consult (Consult Rx Vancomycin Dosing) 1 each MISCELLANE DAILY PRN PRN Reason: Consult order Sodium Chloride (0.9 % Sodium Chloride Flush 3 Ml Syringe) [facility] Last Admin: 06/12/23 07:35 Dose: 3 ml Thyroid (Thyroid,Pork 30 Mg Tablet) 120 mg PO DAILY@0630 [facility] Last Admin: 06/10/23 06:10 Dose: Not Given Home Medications ?Medication ?Instructions ?Recorded ?Confirmed ?Last Taken ?Type acetaminophen 325 mg tablet 650 mg PO Q6H PRN Pain 05/27/23 05/27/23 Unknown History atorvastatin 40 mg tablet 40 mg PO BEDTIME 05/27/23 05/27/23 Unknown History clozapine 100 mg tablet 100 mg PO BID 05/27/23 05/27/23 Unknown History clozapine 50 mg tablet 50 mg PO BEDTIME 05/27/23 05/27/23 Unknown History divalproex 250 mg tablet,delayed 250 mg PO BID 05/27/23 05/27/23 Unknown History release (Depakote) divalproex 500 mg tablet,delayed 500 mg PO BID 05/27/23 05/27/23 Unknown History release (Depakote) lorazepam 1 mg tablet 1 mg PO Q4H PRN becca 05/27/23 05/27/23 Unknown History magnesium hydroxide 400 mg/5 mL 30 ml PO BEDTIME PRN Constipation 05/27/23 05/27/23 Unknown History oral suspension (Milk of Magnesia) melatonin 3 mg tablet 9 mg PO BEDTIME PRN Insomnia 05/27/23 05/27/23 Unknown History thyroid (pork) 120 mg tablet ([employer] 120 mg PO DAILY@0630 05/27/23 05/27/23 Unknown History Thyroid) Exam Height,Weight and Vital Signs: Height 5 ft 7 in Weight 109.8 kg Last Vital Signs Temp 98.5 F 06/12/23 12:00 Pulse 88 06/12/23 12:00 Resp 20 06/12/23 12:00 BP 124/55 L 06/12/23 12:00 Pulse Ox 90 L 06/12/23 12:00 O2 Del Method High Flow Nasal Cannula 06/12/23 12:00 O2 Flow Rate 35 06/12/23 12:00 FiO2 45 06/12/23 12:00 Oxygen Flow Rate 15 05/29/23 06:00 Pertinent Lab Results Pertinent Lab Results: Laboratory Tests 05/27/23 05/27/23 05/27/23 13:55 14:38 15:46 WBC 11.0 H RBC 4.19 L Hgb 13.2 Hct 39.1 MCV 93.3 MCH 31.5 MCHC 33.8 RDW 13.4 Plt Count 157 L MPV 10.4 Immature Gran % (Auto) 1.4 H Neut % (Auto) 86.1 H Lymph % (Auto) 7.7 L Yates % (Auto) 4.0 Eos % (Auto) 0.5 Baso % (Auto) 0.3 Lymph # (Auto) 0.9 L Yates # (Auto) 0.4 Eos # (Auto) 0.1 Baso # (Auto) 0.0 Abs Immat Gran (auto) 0.15 H Absolute Neuts (auto) 9.5 H Absolute Nucleated RBC 0.020 H Nucleated RBC % (auto) 0.2 Neutrophils % (Manual) Band Neutrophils % Lymphocytes % (Manual) Atypical Lymphs % (Man) Monocytes % (Manual) Eosinophils % (Manual) Metamyelocytes % Myelocytes % Promyelocytes % Abs Neuts (Manual) Lymphocytes # (Manual) Atyp Lymphs # (Manual) Monocytes # (Manual) Eosinophils # (Manual) Metamyelocytes # Myelocytes # Promyelocytes # Nucleated RBCs Smudge Cells Toxic Granulation Toxic Vacuolation Platelet Estimate Large Platelets Plt Morphology Comment RBC Morphology Polychromasia Hypochromasia Basophilic Stippling Spherocytes Tear Drop Cells Ovalocytes Rosa-Strathcona Bodies Conway Cells Acanthocytes (Spur) Schistocytes PT 14.1 H INR 1.2 H aPTT Heparin Protocol D-Dimer High Sensitivty O2 Saturation ABG pH at Pt Temp ABG pCO2 at Pt Temp ABG pO2 at Pt Temp ABG HCO3 ABG Base Excess (Actual) VBG pH VBG pCO2 VBG pO2 VBG HCO3 VBG O2 Saturation VBG Base Excess Sodium 135 Potassium 2.8 L* D Chloride 101 Carbon Dioxide 26 Anion Gap 11 L BUN 21 H Creatinine 0.82 Estim Creat Clear Calc 85.4 Estimated GFR > 60 POC Glucose Random Glucose 122 H Lactic Acid 2.3 H* Lactic Acid F/U @ 2Hr Calcium 7.5 L D Phosphorus Magnesium 1.5 L Total Bilirubin 0.4 Direct Bilirubin 0.2 AST 46 H ALT 28 Alkaline Phosphatase 62 Ammonia Troponin I High Sens 11.4 B-Natriuretic Peptide 19 Total Protein 5.6 L Albumin 3.1 L Lipase 45 25-OH Vitamin D Total Procalcitonin 0.32 TSH 0.83 Urine Color Urine Appearance Urine pH Ur Specific [place] Urine Protein Urine Glucose (UA) Urine Ketones Urine Blood Urine Nitrite Ur Leukocyte Esterase Urine RBC Urine WBC Ur Squamous Epith Cells Urine Bacteria Hyaline Casts Nasal Screen MRSA (PCR) Nasal S. aureus Screen Nasal MRSA/S.aureus Interp Stool Occult Blood Stl C. cayetanensis PCR Not Detected Stool Rotavirus A PCR Not Detected Stl Adenov F 40/41 PCR Not Detected Stool Astrovirus (PCR) Not Detected Stool Campylobacter PCR Not Detected Stool Cryptosporidium PCR Not Detected Stl Sh Tox Pr E STEC PCR Not Detected Stool E coli O157 PCR Not applicable Stl Enterotoxigenic E PCR Not Detected Stool EPEC (PCR) Not Detected Stool EAEC (PCR) Not Detected Stl E. histolytica PCR Not Detected Stool Giardia Lamblia PCR Not Detected Stl P. shigelloides PCR Not Detected Stool Salmonella PCR Not Detected Stool Sapovirus (PCR) Not Detected Stl Shigella/EIEC PCR Not Detected St Y.enterocolitica PCR Not Detected Stool Vibrio (PCR) Not Detected Stl Vibrio cholerae PCR Not Detected Stl Norovirus GI/GII PCR Not Detected Random Vancomycin Valproic Acid Carbamazepine Lamotrigine Clozapine Norclozapine Respiratory Panel Ashley Adenovirus (Rapid PCR) B.pert (TEM-PCR) B.parapertussis DNA PCR C. pneumoniae DNA (PCR) Coronavirus OC43 (PCR) Coronavirus HKU1 (PCR) Coronavirus 229E (PCR) Coronavirus NL63 (PCR) Hepatitis A IgM Ab Hep Bs Antigen Hepatitis C Ab (EIA) Human Metapneumovir PCR Influenza A (RT-PCR) Influenza Type A (PCR) NEGATIVE Influenza B (RT-PCR) Influenza Type B (PCR) NEGATIVE M. pneumoniae (PCR) Parainfluenza 1 (PCR) Parainfluenza 2 (PCR) Parainfluenza 3 (PCR) Parainfluenza 4 (PCR) RSV (PCR) RSV RNA Qual (PCR) NEGATIVE Entero/Rhino (PCR) SARS-CoV-2 RNA (RT-PCR) NEGATIVE Blood Type Antibody Screen 05/27/23 05/27/23 05/28/23 16:13 20:41 03:43 WBC RBC Hgb Hct MCV MCH MCHC RDW Plt Count MPV Immature Gran % (Auto) Neut % (Auto) Lymph % (Auto) Yates % (Auto) Eos % (Auto) Baso % (Auto) Lymph # (Auto) Yates # (Auto) Eos # (Auto) Baso # (Auto) Abs Immat Gran (auto) Absolute Neuts (auto) Absolute Nucleated RBC Nucleated RBC % (auto) Neutrophils % (Manual) Band Neutrophils % Lymphocytes % (Manual) Atypical Lymphs % (Man) Monocytes % (Manual) Eosinophils % (Manual) Metamyelocytes % Myelocytes % Promyelocytes % Abs Neuts (Manual) Lymphocytes # (Manual) Atyp Lymphs # (Manual) Monocytes # (Manual) Eosinophils # (Manual) Metamyelocytes # Myelocytes # Promyelocytes # Nucleated RBCs Smudge Cells Toxic Granulation Toxic Vacuolation Platelet Estimate Large Platelets Plt Morphology Comment RBC Morphology Polychromasia Hypochromasia Basophilic Stippling Spherocytes Tear Drop Cells Ovalocytes Rosa-Strathcona Bodies Jyoti Cells Acanthocytes (Spur) Schistocytes PT INR aPTT Heparin Protocol D-Dimer High Sensitivty O2 Saturation ABG pH at Pt Temp ABG pCO2 at Pt Temp ABG pO2 at Pt Temp ABG HCO3 ABG Base Excess (Actual) VBG pH VBG pCO2 VBG pO2 VBG HCO3 VBG O2 Saturation VBG Base Excess Sodium Potassium Chloride Carbon Dioxide Anion Gap BUN Creatinine Estim Creat Clear Calc Estimated GFR POC Glucose 122 H Random Glucose Lactic Acid Lactic Acid F/U @ 2Hr 1.2 Calcium Phosphorus Magnesium Total Bilirubin Direct Bilirubin AST ALT Alkaline Phosphatase Ammonia Troponin I High Sens B-Natriuretic Peptide Total Protein Albumin Lipase 25-OH Vitamin D Total Procalcitonin TSH Urine Color Dark Yellow Urine Appearance Turbid Urine pH 6.5 Ur Specific [place] >= 1.030 H Urine Protein 30 (1+) H Urine Glucose (UA) Negative Urine Ketones 15 Urine Blood Moderate (2+) H Urine Nitrite Negative Ur Leukocyte Esterase Moderate (2+) H Urine RBC >20 H Urine WBC 6-10 H Ur Squamous Epith Cells 3-5 Urine Bacteria 4+ Hyaline Casts 6-10 Nasal Screen MRSA (PCR) Nasal S. aureus Screen Nasal MRSA/S.aureus Interp Stool Occult Blood Stl C. cayetanensis PCR Stool Rotavirus A PCR Stl Adenov F 40/41 PCR Stool Astrovirus (PCR) Stool Campylobacter PCR Stool Cryptosporidium PCR Stl Sh Tox Pr E STEC PCR Stool E coli O157 PCR Stl Enterotoxigenic E PCR Stool EPEC (PCR) Stool EAEC (PCR) Stl E. histolytica PCR Stool Giardia Lamblia PCR Stl P. shigelloides PCR Stool Salmonella PCR Stool Sapovirus (PCR) Stl Shigella/EIEC PCR St Y.enterocolitica PCR Stool Vibrio (PCR) Stl Vibrio cholerae PCR Stl Norovirus GI/GII PCR Random Vancomycin Valproic Acid Carbamazepine Lamotrigine Clozapine Norclozapine Respiratory Panel Ashley Adenovirus (Rapid PCR) B.pert (TEM-PCR) B.parapertussis DNA PCR C. pneumoniae DNA (PCR) Coronavirus OC43 (PCR) Coronavirus HKU1 (PCR) Coronavirus 229E (PCR) Coronavirus NL63 (PCR) Hepatitis A IgM Ab Hep Bs Antigen Hepatitis C Ab (EIA) Human Metapneumovir PCR Influenza A (RT-PCR) Influenza Type A (PCR) Influenza B (RT-PCR) Influenza Type B (PCR) M. pneumoniae (PCR) Parainfluenza 1 (PCR) Parainfluenza 2 (PCR) Parainfluenza 3 (PCR) Parainfluenza 4 (PCR) RSV (PCR) RSV RNA Qual (PCR) Entero/Rhino (PCR) SARS-CoV-2 RNA (RT-PCR) Blood Type Antibody Screen 05/28/23 05/28/23 05/28/23 06:09 07:13 12:03 WBC RBC Hgb Hct MCV MCH MCHC RDW Plt Count MPV Immature Gran % (Auto) Neut % (Auto) Lymph % (Auto) Yates % (Auto) Eos % (Auto) Baso % (Auto) Lymph # (Auto) Yates # (Auto) Eos # (Auto) Baso # (Auto) Abs Immat Gran (auto) Absolute Neuts (auto) Absolute Nucleated RBC Nucleated RBC % (auto) Neutrophils % (Manual) Band Neutrophils % Lymphocytes % (Manual) Atypical Lymphs % (Man) Monocytes % (Manual) Eosinophils % (Manual) Metamyelocytes % Myelocytes % Promyelocytes % Abs Neuts (Manual) Lymphocytes # (Manual) Atyp Lymphs # (Manual) Monocytes # (Manual) Eosinophils # (Manual) Metamyelocytes # Myelocytes # Promyelocytes # Nucleated RBCs Smudge Cells Toxic Granulation Toxic Vacuolation Platelet Estimate Large Platelets Plt Morphology Comment RBC Morphology Polychromasia Hypochromasia Basophilic Stippling Spherocytes Tear Drop Cells Ovalocytes Rosa-[place] Bodies Conway Cells Acanthocytes (Spur) Schistocytes PT INR aPTT Heparin Protocol D-Dimer High Sensitivty O2 Saturation ABG pH at Pt Temp ABG pCO2 at Pt Temp ABG pO2 at Pt Temp ABG HCO3 ABG Base Excess (Actual) VBG pH VBG pCO2 VBG pO2 VBG HCO3 VBG O2 Saturation VBG Base Excess Sodium 138 Potassium 3.4 D Chloride 108 Carbon Dioxide 22 Anion Gap 11 L BUN 16 Creatinine 0.67 Estim Creat Clear Calc 104.6 Estimated GFR > 60 POC Glucose 116 H 152 H Random Glucose 120 H Lactic Acid Lactic Acid F/U @ 2Hr Calcium 7.2 L Phosphorus Magnesium 2.1 Total Bilirubin 0.4 Direct Bilirubin AST 103 H ALT 59 H Alkaline Phosphatase 52 Ammonia Troponin I High Sens B-Natriuretic Peptide Total Protein 5.4 L Albumin 3.2 L Lipase 25-OH Vitamin D Total Procalcitonin TSH Urine Color Urine Appearance Urine pH Ur Specific [place] Urine Protein Urine Glucose (UA) Urine Ketones Urine Blood Urine Nitrite Ur Leukocyte Esterase Urine RBC Urine WBC Ur Squamous Epith Cells Urine Bacteria Hyaline Casts Nasal Screen MRSA (PCR) Nasal S. aureus Screen Nasal MRSA/S.aureus Interp Stool Occult Blood Stl C. cayetanensis PCR Stool Rotavirus A PCR Stl Adenov F 40/41 PCR Stool Astrovirus (PCR) Stool Campylobacter PCR Stool Cryptosporidium PCR Stl Sh Tox Pr E STEC PCR Stool E coli O157 PCR Stl Enterotoxigenic E PCR Stool EPEC (PCR) Stool EAEC (PCR) Stl E. histolytica PCR Stool Giardia Lamblia PCR Stl P. shigelloides PCR Stool Salmonella PCR Stool Sapovirus (PCR) Stl Shigella/EIEC PCR St Y.enterocolitica PCR Stool Vibrio (PCR) Stl Vibrio cholerae PCR Stl Norovirus GI/GII PCR Random Vancomycin Valproic Acid Carbamazepine Lamotrigine Clozapine Norclozapine Respiratory Panel Ashley Adenovirus (Rapid PCR) B.pert (TEM-PCR) B.parapertussis DNA PCR C. pneumoniae DNA (PCR) Coronavirus OC43 (PCR) Coronavirus HKU1 (PCR) Coronavirus 229E (PCR) Coronavirus NL63 (PCR) Hepatitis A IgM Ab Hep Bs Antigen Hepatitis C Ab (EIA) Human Metapneumovir PCR Influenza A (RT-PCR) Influenza Type A (PCR) Influenza B (RT-PCR) Influenza Type B (PCR) M. pneumoniae (PCR) Parainfluenza 1 (PCR) Parainfluenza 2 (PCR) Parainfluenza 3 (PCR) Parainfluenza 4 (PCR) RSV (PCR) RSV RNA Qual (PCR) Entero/Rhino (PCR) SARS-CoV-2 RNA (RT-PCR) Blood Type Antibody Screen 05/28/23 05/28/23 05/28/23 14:49 16:11 19:26 WBC RBC Hgb Hct MCV MCH MCHC RDW Plt Count MPV Immature Gran % (Auto) Neut % (Auto) Lymph % (Auto) Yates % (Auto) Eos % (Auto) Baso % (Auto) Lymph # (Auto) Yates # (Auto) Eos # (Auto) Baso # (Auto) Abs Immat Gran (auto) Absolute Neuts (auto) Absolute Nucleated RBC Nucleated RBC % (auto) Neutrophils % (Manual) Band Neutrophils % Lymphocytes % (Manual) Atypical Lymphs % (Man) Monocytes % (Manual) Eosinophils % (Manual) Metamyelocytes % Myelocytes % Promyelocytes % Abs Neuts (Manual) Lymphocytes # (Manual) Atyp Lymphs # (Manual) Monocytes # (Manual) Eosinophils # (Manual) Metamyelocytes # Myelocytes # Promyelocytes # Nucleated RBCs Smudge Cells Toxic Granulation Toxic Vacuolation Platelet Estimate Large Platelets Plt Morphology Comment RBC Morphology Polychromasia Hypochromasia Basophilic Stippling Spherocytes Tear Drop Cells Ovalocytes Rosa-Strathcon[place] Bodies Jyoti Cells Acanthocytes (Spur) Schistocytes PT INR aPTT Heparin Protocol D-Dimer High Sensitivty O2 Saturation ABG pH at Pt Temp ABG pCO2 at Pt Temp ABG pO2 at Pt Temp ABG HCO3 ABG Base Excess (Actual) VBG pH VBG pCO2 VBG pO2 VBG HCO3 VBG O2 Saturation VBG Base Excess Sodium Potassium Chloride Carbon Dioxide Anion Gap BUN Creatinine Estim Creat Clear Calc Estimated GFR POC Glucose 213 H 128 H Random Glucose Lactic Acid Lactic Acid F/U @ 2Hr Calcium 7.1 L Phosphorus Magnesium Total Bilirubin Direct Bilirubin AST ALT Alkaline Phosphatase Ammonia Troponin I High Sens B-Natriuretic Peptide Total Protein Albumin Lipase 25-OH Vitamin D Total 24.3 L Procalcitonin TSH Urine Color Urine Appearance Urine pH Ur Specific [place] Urine Protein Urine Glucose (UA) Urine Ketones Urine Blood Urine Nitrite Ur Leukocyte Esterase Urine RBC Urine WBC Ur Squamous Epith Cells Urine Bacteria Hyaline Casts Nasal Screen MRSA (PCR) Nasal S. aureus Screen Nasal MRSA/S.aureus Interp Stool Occult Blood Stl C. cayetanensis PCR Stool Rotavirus A PCR Stl Adenov F 40/41 PCR Stool Astrovirus (PCR) Stool Campylobacter PCR Stool Cryptosporidium PCR Stl Sh Tox Pr E STEC PCR Stool E coli O157 PCR Stl Enterotoxigenic E PCR Stool EPEC (PCR) Stool EAEC (PCR) Stl E. histolytica PCR Stool Giardia Lamblia PCR Stl P. shigelloides PCR Stool Salmonella PCR Stool Sapovirus (PCR) Stl Shigella/EIEC PCR St Y.enterocolitica PCR Stool Vibrio (PCR) Stl Vibrio cholerae PCR Stl Norovirus GI/GII PCR Random Vancomycin Valproic Acid Carbamazepine Lamotrigine Clozapine Norclozapine Respiratory Panel Ashley Adenovirus (Rapid PCR) B.pert (TEM-PCR) B.parapertussis DNA PCR C. pneumoniae DNA (PCR) Coronavirus OC43 (PCR) Coronavirus HKU1 (PCR) Coronavirus 229E (PCR) Coronavirus NL63 (PCR) Hepatitis A IgM Ab Hep Bs Antigen Hepatitis C Ab (EIA) Human Metapneumovir PCR Influenza A (RT-PCR) Influenza Type A (PCR) Influenza B (RT-PCR) Influenza Type B (PCR) M. pneumoniae (PCR) Parainfluenza 1 (PCR) Parainfluenza 2 (PCR) Parainfluenza 3 (PCR) Parainfluenza 4 (PCR) RSV (PCR) RSV RNA Qual (PCR) Entero/Rhino (PCR) SARS-CoV-2 RNA (RT-PCR) Blood Type Antibody Screen 05/29/23 05/29/23 05/29/23 04:19 04:31 04:39 WBC 6.4 RBC 3.46 L Hgb 10.8 L Hct 32.0 L MCV 92.5 MCH 31.2 MCHC 33.8 RDW 13.6 Plt Count 87 L D MPV 10.4 Immature Gran % (Auto) Neut % (Auto) Lymph % (Auto) Yates % (Auto) Eos % (Auto) Baso % (Auto) Lymph # (Auto) Yates # (Auto) Eos # (Auto) Baso # (Auto) Abs Immat Gran (auto) Absolute Neuts (auto) Absolute Nucleated RBC 0.000 Nucleated RBC % (auto) 0.0 Neutrophils % (Manual) 45 Band Neutrophils % 41 H Lymphocytes % (Manual) 11 L Atypical Lymphs % (Man) Monocytes % (Manual) 2 Eosinophils % (Manual) Metamyelocytes % 1 Myelocytes % Promyelocytes % Abs Neuts (Manual) 5.5 Lymphocytes # (Manual) 0.7 L Atyp Lymphs # (Manual) Monocytes # (Manual) 0.1 Eosinophils # (Manual) Metamyelocytes # 0.1 Myelocytes # Promyelocytes # Nucleated RBCs Smudge Cells Toxic Granulation Toxic Vacuolation PRESENT Platelet Estimate DECREASED Large Platelets PRESENT Plt Morphology Comment NORMAL RBC Morphology NORMAL Polychromasia Hypochromasia Basophilic Stippling Spherocytes Tear Drop Cells Ovalocytes Rosa-[place]con[place] Bodies [place] Cells Acanthocytes (Spur) Schistocytes PT INR aPTT Heparin Protocol D-Dimer High Sensitivty O2 Saturation 90.0 ABG pH at Pt Temp 7.41 ABG pCO2 at Pt Temp 36 ABG pO2 at Pt Temp 58 L ABG HCO3 23 ABG Base Excess (Actual) -0.7 VBG pH VBG pCO2 VBG pO2 VBG HCO3 VBG O2 Saturation VBG Base Excess Sodium 137 Potassium 4.1 D Chloride 107 Carbon Dioxide 23 Anion Gap 11 L BUN 12 Creatinine 0.68 Estim Creat Clear Calc 106.3 Estimated GFR > 60 POC Glucose 123 H Random Glucose 125 H Lactic Acid 0.9 Lactic Acid F/U @ 2Hr Calcium 7.3 L Phosphorus Magnesium Total Bilirubin 0.4 Direct Bilirubin AST 166 H ALT 101 H Alkaline Phosphatase 58 Ammonia Troponin I High Sens B-Natriuretic Peptide 241 H Total Protein 5.5 L Albumin 3.2 L Lipase 25-OH Vitamin D Total Procalcitonin 0.90 TSH Urine Color Urine Appearance Urine pH Ur Specific [place] Urine Protein Urine Glucose (UA) Urine Ketones Urine Blood Urine Nitrite Ur Leukocyte Esterase Urine RBC Urine WBC Ur Squamous Epith Cells Urine Bacteria Hyaline Casts Nasal Screen MRSA (PCR) Nasal S. aureus Screen Nasal MRSA/S.aureus Interp Stool Occult Blood Stl C. cayetanensis PCR Stool Rotavirus A PCR Stl Adenov F 40/41 PCR Stool Astrovirus (PCR) Stool Campylobacter PCR Stool Cryptosporidium PCR Stl Sh Tox Pr E STEC PCR Stool E coli O157 PCR Stl Enterotoxigenic E PCR Stool EPEC (PCR) Stool EAEC (PCR) Stl E. histolytica PCR Stool Giardia Lamblia PCR Stl P. shigelloides PCR Stool Salmonella PCR Stool Sapovirus (PCR) Stl Shigella/EIEC PCR St Y.enterocolitica PCR Stool Vibrio (PCR) Stl Vibrio cholerae PCR Stl Norovirus GI/GII PCR Random Vancomycin Valproic Acid Carbamazepine Lamotrigine Clozapine Norclozapine Respiratory Panel Ashley Adenovirus (Rapid PCR) B.pert (TEM-PCR) B.parapertussis DNA PCR C. pneumoniae DNA (PCR) Coronavirus OC43 (PCR) Coronavirus HKU1 (PCR) Coronavirus 229E (PCR) Coronavirus NL63 (PCR) Hepatitis A IgM Ab Hep Bs Antigen Hepatitis C Ab (EIA) Human Metapneumovir PCR Influenza A (RT-PCR) Influenza Type A (PCR) Influenza B (RT-PCR) Influenza Type B (PCR) M. pneumoniae (PCR) Parainfluenza 1 (PCR) Parainfluenza 2 (PCR) Parainfluenza 3 (PCR) Parainfluenza 4 (PCR) RSV (PCR) RSV RNA Qual (PCR) Entero/Rhino (PCR) SARS-CoV-2 RNA (RT-PCR) Blood Type Antibody Screen 05/29/23 05/29/23 05/29/23 06:33 07:37 09:00 WBC 7.4 RBC 3.49 L Hgb 10.8 L Hct 32.7 L MCV 93.7 MCH 30.9 MCHC 33.0 RDW 13.6 Plt Count 94 L MPV 11.4 Immature Gran % (Auto) 0.9 H Neut % (Auto) 79.0 H Lymph % (Auto) 13.2 L Yates % (Auto) 5.1 Eos % (Auto) 1.5 Baso % (Auto) 0.3 Lymph # (Auto) 1.0 L Yates # (Auto) 0.4 Eos # (Auto) 0.1 Baso # (Auto) 0.0 Abs Immat Gran (auto) 0.07 H Absolute Neuts (auto) 5.8 Absolute Nucleated RBC 0.000 Nucleated RBC % (auto) 0.0 Neutrophils % (Manual) Band Neutrophils % Lymphocytes % (Manual) Atypical Lymphs % (Man) Monocytes % (Manual) Eosinophils % (Manual) Metamyelocytes % Myelocytes % Promyelocytes % Abs Neuts (Manual) Lymphocytes # (Manual) Atyp Lymphs # (Manual) Monocytes # (Manual) Eosinophils # (Manual) Metamyelocytes # Myelocytes # Promyelocytes # Nucleated RBCs Smudge Cells Toxic Granulation Toxic Vacuolation Platelet Estimate Large Platelets Plt Morphology Comment RBC Morphology Polychromasia Hypochromasia Basophilic Stippling Spherocytes Tear Drop Cells Ovalocytes Rosa-Str[place] Bodies [place] Cells Acanthocytes (Spur) Schistocytes PT INR aPTT Heparin Protocol D-Dimer High Sensitivty O2 Saturation ABG pH at Pt Temp ABG pCO2 at Pt Temp ABG pO2 at Pt Temp ABG HCO3 ABG Base Excess (Actual) VBG pH VBG pCO2 VBG pO2 VBG HCO3 VBG O2 Saturation VBG Base Excess Sodium 138 Potassium 3.4 Chloride 105 Carbon Dioxide 24 Anion Gap 12 BUN 12 Creatinine 0.70 Estim Creat Clear Calc 103.4 Estimated GFR > 60 POC Glucose 156 H Random Glucose 166 H Lactic Acid Lactic Acid F/U @ 2Hr Calcium 7.3 L Phosphorus Magnesium Total Bilirubin 0.4 Direct Bilirubin 0.3 AST 168 H ALT 103 H Alkaline Phosphatase 61 Ammonia Troponin I High Sens B-Natriuretic Peptide 184 H Total Protein 5.6 L Albumin 3.2 L Lipase 25-OH Vitamin D Total Procalcitonin TSH Urine Color Urine Appearance Urine pH Ur Specific [place] Urine Protein Urine Glucose (UA) Urine Ketones Urine Blood Urine Nitrite Ur Leukocyte Esterase Urine RBC Urine WBC Ur Squamous Epith Cells Urine Bacteria Hyaline Casts Nasal Screen MRSA (PCR) Nasal S. aureus Screen Nasal MRSA/S.aureus Interp Stool Occult Blood Stl C. cayetanensis PCR Stool Rotavirus A PCR Stl Adenov F 40/41 PCR Stool Astrovirus (PCR) Stool Campylobacter PCR Stool Cryptosporidium PCR Stl Sh Tox Pr E STEC PCR Stool E coli O157 PCR Stl Enterotoxigenic E PCR Stool EPEC (PCR) Stool EAEC (PCR) Stl E. histolytica PCR Stool Giardia Lamblia PCR Stl P. shigelloides PCR Stool Salmonella PCR Stool Sapovirus (PCR) Stl Shigella/EIEC PCR St Y.enterocolitica PCR Stool Vibrio (PCR) Stl Vibrio cholerae PCR Stl Norovirus GI/GII PCR Random Vancomycin Valproic Acid Carbamazepine Lamotrigine Clozapine Norclozapine Respiratory Panel Ashley See Note Adenovirus (Rapid PCR) Not Detected B.pert (TEM-PCR) Not Detected B.parapertussis DNA PCR Not Detected C. pneumoniae DNA (PCR) Not Detected Coronavirus OC43 (PCR) Not Detected Coronavirus HKU1 (PCR) Not Detected Coronavirus 229E (PCR) Not Detected Coronavirus NL63 (PCR) Not Detected Hepatitis A IgM Ab Hep Bs Antigen Hepatitis C Ab (EIA) Human Metapneumovir PCR Not Detected Influenza A (RT-PCR) Not Detected Influenza Type A (PCR) Influenza B (RT-PCR) Not Detected Influenza Type B (PCR) M. pneumoniae (PCR) Not Detected Parainfluenza 1 (PCR) Not Detected Parainfluenza 2 (PCR) Not Detected Parainfluenza 3 (PCR) Not Detected Parainfluenza 4 (PCR) Not Detected RSV (PCR) Not Detected RSV RNA Qual (PCR) Entero/Rhino (PCR) Not Detected SARS-CoV-2 RNA (RT-PCR) Not Detected Blood Type Antibody Screen 05/29/23 05/29/23 05/29/23 11:06 11:40 11:49 WBC RBC Hgb Hct MCV MCH MCHC RDW Plt Count MPV Immature Gran % (Auto) Neut % (Auto) Lymph % (Auto) Yates % (Auto) Eos % (Auto) Baso % (Auto) Lymph # (Auto) Yates # (Auto) Eos # (Auto) Baso # (Auto) Abs Immat Gran (auto) Absolute Neuts (auto) Absolute Nucleated RBC Nucleated RBC % (auto) Neutrophils % (Manual) Band Neutrophils % Lymphocytes % (Manual) Atypical Lymphs % (Man) Monocytes % (Manual) Eosinophils % (Manual) Metamyelocytes % Myelocytes % Promyelocytes % Abs Neuts (Manual) Lymphocytes # (Manual) Atyp Lymphs # (Manual) Monocytes # (Manual) Eosinophils # (Manual) Metamyelocytes # Myelocytes # Promyelocytes # Nucleated RBCs Smudge Cells Toxic Granulation Toxic Vacuolation Platelet Estimate Large Platelets Plt Morphology Comment RBC Morphology Polychromasia Hypochromasia Basophilic Stippling Spherocytes Tear Drop Cells Ovalocytes Rosa-[place] Bodies Jyoti Cells Acanthocytes (Spur) Schistocytes PT INR aPTT Heparin Protocol D-Dimer High Sensitivty 2947 O2 Saturation 90.0 ABG pH at Pt Temp 7.45 ABG pCO2 at Pt Temp 40 ABG pO2 at Pt Temp 58 L ABG HCO3 28 H ABG Base Excess (Actual) 4.3 VBG pH VBG pCO2 VBG pO2 VBG HCO3 VBG O2 Saturation VBG Base Excess Sodium Potassium Chloride Carbon Dioxide Anion Gap BUN Creatinine Estim Creat Clear Calc Estimated GFR POC Glucose 165 H Random Glucose Lactic Acid Lactic Acid F/U @ 2Hr Calcium Phosphorus Magnesium Total Bilirubin Direct Bilirubin AST ALT Alkaline Phosphatase Ammonia Troponin I High Sens B-Natriuretic Peptide Total Protein Albumin Lipase 25-OH Vitamin D Total Procalcitonin TSH Urine Color Urine Appearance Urine pH Ur Specific [place] Urine Protein Urine Glucose (UA) Urine Ketones Urine Blood Urine Nitrite Ur Leukocyte Esterase Urine RBC Urine WBC Ur Squamous Epith Cells Urine Bacteria Hyaline Casts Nasal Screen MRSA (PCR) Nasal S. aureus Screen Nasal MRSA/S.aureus Interp Stool Occult Blood Stl C. cayetanensis PCR Stool Rotavirus A PCR Stl Adenov F 40/41 PCR Stool Astrovirus (PCR) Stool Campylobacter PCR Stool Cryptosporidium PCR Stl Sh Tox Pr E STEC PCR Stool E coli O157 PCR Stl Enterotoxigenic E PCR Stool EPEC (PCR) Stool EAEC (PCR) Stl E. histolytica PCR Stool Giardia Lamblia PCR Stl P. shigelloides PCR Stool Salmonella PCR Stool Sapovirus (PCR) Stl Shigella/EIEC PCR St Y.enterocolitica PCR Stool Vibrio (PCR) Stl Vibrio cholerae PCR Stl Norovirus GI/GII PCR Random Vancomycin Valproic Acid Carbamazepine Lamotrigine Clozapine Norclozapine Respiratory Panel Ashley Adenovirus (Rapid PCR) B.pert (TEM-PCR) B.parapertussis DNA PCR C. pneumoniae DNA (PCR) Coronavirus OC43 (PCR) Coronavirus HKU1 (PCR) Coronavirus 229E (PCR) Coronavirus NL63 (PCR) Hepatitis A IgM Ab Hep Bs Antigen Hepatitis C Ab (EIA) Human Metapneumovir PCR Influenza A (RT-PCR) Influenza Type A (PCR) Influenza B (RT-PCR) Influenza Type B (PCR) M. pneumoniae (PCR) Parainfluenza 1 (PCR) Parainfluenza 2 (PCR) Parainfluenza 3 (PCR) Parainfluenza 4 (PCR) RSV (PCR) RSV RNA Qual (PCR) Entero/Rhino (PCR) SARS-CoV-2 RNA (RT-PCR) Blood Type Antibody Screen 05/29/23 05/29/23 05/29/23 13:55 16:17 20:57 WBC RBC Hgb Hct MCV MCH MCHC RDW Plt Count MPV Immature Gran % (Auto) Neut % (Auto) Lymph % (Auto) Yates % (Auto) Eos % (Auto) Baso % (Auto) Lymph # (Auto) Yates # (Auto) Eos # (Auto) Baso # (Auto) Abs Immat Gran (auto) Absolute Neuts (auto) Absolute Nucleated RBC Nucleated RBC % (auto) Neutrophils % (Manual) Band Neutrophils % Lymphocytes % (Manual) Atypical Lymphs % (Man) Monocytes % (Manual) Eosinophils % (Manual) Metamyelocytes % Myelocytes % Promyelocytes % Abs Neuts (Manual) Lymphocytes # (Manual) Atyp Lymphs # (Manual) Monocytes # (Manual) Eosinophils # (Manual) Metamyelocytes # Myelocytes # Promyelocytes # Nucleated RBCs Smudge Cells Toxic Granulation Toxic Vacuolation Platelet Estimate Large Platelets Plt Morphology Comment RBC Morphology Polychromasia Hypochromasia Basophilic Stippling Spherocytes Tear Drop Cells Ovalocytes Rosa-[place] Bodies Jyoti Cells Acanthocytes (Spur) Schistocytes PT INR aPTT Heparin Protocol D-Dimer High Sensitivty O2 Saturation ABG pH at Pt Temp ABG pCO2 at Pt Temp ABG pO2 at Pt Temp ABG HCO3 ABG Base Excess (Actual) VBG pH VBG pCO2 VBG pO2 VBG HCO3 VBG O2 Saturation VBG Base Excess Sodium Potassium Chloride Carbon Dioxide Anion Gap BUN Creatinine Estim Creat Clear Calc Estimated GFR POC Glucose 158 H 150 H Random Glucose Lactic Acid Lactic Acid F/U @ 2Hr Calcium Phosphorus Magnesium Total Bilirubin Direct Bilirubin AST ALT Alkaline Phosphatase Ammonia Troponin I High Sens 134.1 H* D B-Natriuretic Peptide Total Protein Albumin Lipase 25-OH Vitamin D Total Procalcitonin TSH Urine Color Urine Appearance Urine pH Ur Specific [place] Urine Protein Urine Glucose (UA) Urine Ketones Urine Blood Urine Nitrite Ur Leukocyte Esterase Urine RBC Urine WBC Ur Squamous Epith Cells Urine Bacteria Hyaline Casts Nasal Screen MRSA (PCR) Nasal S. aureus Screen Nasal MRSA/S.aureus Interp Stool Occult Blood Stl C. cayetanensis PCR Stool Rotavirus A PCR Stl Adenov F 40/41 PCR Stool Astrovirus (PCR) Stool Campylobacter PCR Stool Cryptosporidium PCR Stl Sh Tox Pr E STEC PCR Stool E coli O157 PCR Stl Enterotoxigenic E PCR Stool EPEC (PCR) Stool EAEC (PCR) Stl E. histolytica PCR Stool Giardia Lamblia PCR Stl P. shigelloides PCR Stool Salmonella PCR Stool Sapovirus (PCR) Stl Shigella/EIEC PCR St Y.enterocolitica PCR Stool Vibrio (PCR) Stl Vibrio cholerae PCR Stl Norovirus GI/GII PCR Random Vancomycin Valproic Acid Carbamazepine Lamotrigine Clozapine Norclozapine Respiratory Panel Ashley Adenovirus (Rapid PCR) B.pert (TEM-PCR) B.parapertussis DNA PCR C. pneumoniae DNA (PCR) Coronavirus OC43 (PCR) Coronavirus HKU1 (PCR) Coronavirus 229E (PCR) Coronavirus NL63 (PCR) Hepatitis A IgM Ab Hep Bs Antigen Hepatitis C Ab (EIA) Human Metapneumovir PCR Influenza A (RT-PCR) Influenza Type A (PCR) Influenza B (RT-PCR) Influenza Type B (PCR) M. pneumoniae (PCR) Parainfluenza 1 (PCR) Parainfluenza 2 (PCR) Parainfluenza 3 (PCR) Parainfluenza 4 (PCR) RSV (PCR) RSV RNA Qual (PCR) Entero/Rhino (PCR) SARS-CoV-2 RNA (RT-PCR) Blood Type Antibody Screen 05/30/23 05/30/23 05/30/23 04:36 06:11 06:43 WBC 11.7 H RBC 4.05 L Hgb 12.6 Hct 36.9 L MCV 91.1 MCH 31.1 MCHC 34.1 RDW 13.3 Plt Count 113 L MPV 11.3 Immature Gran % (Auto) 1.2 H Neut % (Auto) 84.7 H Lymph % (Auto) 8.1 L Yates % (Auto) 5.1 Eos % (Auto) 0.3 Baso % (Auto) 0.6 Lymph # (Auto) 1.0 L Yates # (Auto) 0.6 Eos # (Auto) 0.0 Baso # (Auto) 0.1 Abs Immat Gran (auto) 0.14 H Absolute Neuts (auto) 9.9 H Absolute Nucleated RBC 0.000 Nucleated RBC % (auto) 0.0 Neutrophils % (Manual) Band Neutrophils % Lymphocytes % (Manual) Atypical Lymphs % (Man) Monocytes % (Manual) Eosinophils % (Manual) Metamyelocytes % Myelocytes % Promyelocytes % Abs Neuts (Manual) Lymphocytes # (Manual) Atyp Lymphs # (Manual) Monocytes # (Manual) Eosinophils # (Manual) Metamyelocytes # Myelocytes # Promyelocytes # Nucleated RBCs Smudge Cells Toxic Granulation Toxic Vacuolation Platelet Estimate Large Platelets Plt Morphology Comment RBC Morphology Polychromasia Hypochromasia Basophilic Stippling Spherocytes Tear Drop Cells Ovalocytes Rosa-[place] Bodies Jyoti Cells Acanthocytes (Spur) Schistocytes PT INR aPTT Heparin Protocol D-Dimer High Sensitivty O2 Saturation 90.0 ABG pH at Pt Temp 7.50 H ABG pCO2 at Pt Temp 46 H ABG pO2 at Pt Temp 62 L ABG HCO3 36 H ABG Base Excess (Actual) 11.7 VBG pH VBG pCO2 VBG pO2 VBG HCO3 VBG O2 Saturation VBG Base Excess Sodium 141 Potassium 2.4 L* D Chloride 94 L Carbon Dioxide 35 H Anion Gap 14 BUN 16 Creatinine 0.80 Estim Creat Clear Calc 90.4 Estimated GFR > 60 POC Glucose 155 H Random Glucose 146 H Lactic Acid 1.7 Lactic Acid F/U @ 2Hr Calcium 7.8 L D Phosphorus Magnesium Total Bilirubin 0.6 Direct Bilirubin AST 145 H ALT 109 H Alkaline Phosphatase 85 Ammonia 39 Troponin I High Sens 468.6 H* D B-Natriuretic Peptide Total Protein Albumin Lipase 25-OH Vitamin D Total Procalcitonin TSH Urine Color Urine Appearance Urine pH Ur Specific [place] Urine Protein Urine Glucose (UA) Urine Ketones Urine Blood Urine Nitrite Ur Leukocyte Esterase Urine RBC Urine WBC Ur Squamous Epith Cells Urine Bacteria Hyaline Casts Nasal Screen MRSA (PCR) Nasal S. aureus Screen Nasal MRSA/S.aureus Interp Stool Occult Blood Stl C. cayetanensis PCR Stool Rotavirus A PCR Stl Adenov F 40/41 PCR Stool Astrovirus (PCR) Stool Campylobacter PCR Stool Cryptosporidium PCR Stl Sh Tox Pr E STEC PCR Stool E coli O157 PCR Stl Enterotoxigenic E PCR Stool EPEC (PCR) Stool EAEC (PCR) Stl E. histolytica PCR Stool Giardia Lamblia PCR Stl P. shigelloides PCR Stool Salmonella PCR Stool Sapovirus (PCR) Stl Shigella/EIEC PCR St Y.enterocolitica PCR Stool Vibrio (PCR) Stl Vibrio cholerae PCR Stl Norovirus GI/GII PCR Random Vancomycin Valproic Acid Carbamazepine Lamotrigine Clozapine Norclozapine Respiratory Panel Ashley Adenovirus (Rapid PCR) B.pert (TEM-PCR) B.parapertussis DNA PCR C. pneumoniae DNA (PCR) Coronavirus OC43 (PCR) Coronavirus HKU1 (PCR) Coronavirus 229E (PCR) Coronavirus NL63 (PCR) Hepatitis A IgM Ab Hep Bs Antigen Hepatitis C Ab (EIA) Human Metapneumovir PCR Influenza A (RT-PCR) Influenza Type A (PCR) Influenza B (RT-PCR) Influenza Type B (PCR) M. pneumoniae (PCR) Parainfluenza 1 (PCR) Parainfluenza 2 (PCR) Parainfluenza 3 (PCR) Parainfluenza 4 (PCR) RSV (PCR) RSV RNA Qual (PCR) Entero/Rhino (PCR) SARS-CoV-2 RNA (RT-PCR) Blood Type Antibody Screen 05/30/23 05/30/23 05/30/23 06:43 11:08 12:23 WBC RBC Hgb Hct MCV MCH MCHC RDW Plt Count MPV Immature Gran % (Auto) Neut % (Auto) Lymph % (Auto) Yates % (Auto) Eos % (Auto) Baso % (Auto) Lymph # (Auto) Yates # (Auto) Eos # (Auto) Baso # (Auto) Abs Immat Gran (auto) Absolute Neuts (auto) Absolute Nucleated RBC Nucleated RBC % (auto) Neutrophils % (Manual) Band Neutrophils % Lymphocytes % (Manual) Atypical Lymphs % (Man) Monocytes % (Manual) Eosinophils % (Manual) Metamyelocytes % Myelocytes % Promyelocytes % Abs Neuts (Manual) Lymphocytes # (Manual) Atyp Lymphs # (Manual) Monocytes # (Manual) Eosinophils # (Manual) Metamyelocytes # Myelocytes # Promyelocytes # Nucleated RBCs Smudge Cells Toxic Granulation Toxic Vacuolation Platelet Estimate Large Platelets Plt Morphology Comment RBC Morphology Polychromasia Hypochromasia Basophilic Stippling Spherocytes Tear Drop Cells Ovalocytes Rosa-[place] Bodies [place] Cells Acanthocytes (Spur) Schistocytes PT INR aPTT Heparin Protocol D-Dimer High Sensitivty O2 Saturation ABG pH at Pt Temp ABG pCO2 at Pt Temp ABG pO2 at Pt Temp ABG HCO3 ABG Base Excess (Actual) VBG pH VBG pCO2 VBG pO2 VBG HCO3 VBG O2 Saturation VBG Base Excess Sodium Potassium Chloride Carbon Dioxide Anion Gap BUN Creatinine Estim Creat Clear Calc Estimated GFR POC Glucose 158 H 175 H Random Glucose Lactic Acid Lactic Acid F/U @ 2Hr Calcium Phosphorus Magnesium Total Bilirubin Direct Bilirubin AST ALT Alkaline Phosphatase Ammonia Troponin I High Sens 496.3 H* B-Natriuretic Peptide 160 H Total Protein 6.4 L Albumin 3.5 Lipase 25-OH Vitamin D Total Procalcitonin TSH Urine Color Urine Appearance Urine pH Ur Specific [place] Urine Protein Urine Glucose (UA) Urine Ketones Urine Blood Urine Nitrite Ur Leukocyte Esterase Urine RBC Urine WBC Ur Squamous Epith Cells Urine Bacteria Hyaline Casts Nasal Screen MRSA (PCR) Nasal S. aureus Screen Nasal MRSA/S.aureus Interp Stool Occult Blood Stl C. cayetanensis PCR Stool Rotavirus A PCR Stl Adenov F 40/41 PCR Stool Astrovirus (PCR) Stool Campylobacter PCR Stool Cryptosporidium PCR Stl Sh Tox Pr E STEC PCR Stool E coli O157 PCR Stl Enterotoxigenic E PCR Stool EPEC (PCR) Stool EAEC (PCR) Stl E. histolytica PCR Stool Giardia Lamblia PCR Stl P. shigelloides PCR Stool Salmonella PCR Stool Sapovirus (PCR) Stl Shigella/EIEC PCR St Y.enterocolitica PCR Stool Vibrio (PCR) Stl Vibrio cholerae PCR Stl Norovirus GI/GII PCR Random Vancomycin Valproic Acid 45.5 L Carbamazepine 9.6 Lamotrigine Clozapine 869 Norclozapine 225 Respiratory Panel Ashley Adenovirus (Rapid PCR) B.pert (TEM-PCR) B.parapertussis DNA PCR C. pneumoniae DNA (PCR) Coronavirus OC43 (PCR) Coronavirus HKU1 (PCR) Coronavirus 229E (PCR) Coronavirus NL63 (PCR) Hepatitis A IgM Ab Hep Bs Antigen Hepatitis C Ab (EIA) Human Metapneumovir PCR Influenza A (RT-PCR) Influenza Type A (PCR) Influenza B (RT-PCR) Influenza Type B (PCR) M. pneumoniae (PCR) Parainfluenza 1 (PCR) Parainfluenza 2 (PCR) Parainfluenza 3 (PCR) Parainfluenza 4 (PCR) RSV (PCR) RSV RNA Qual (PCR) Entero/Rhino (PCR) SARS-CoV-2 RNA (RT-PCR) Blood Type Antibody Screen 05/30/23 05/30/23 05/30/23 13:47 17:52 23:44 WBC RBC Hgb Hct MCV MCH MCHC RDW Plt Count MPV Immature Gran % (Auto) Neut % (Auto) Lymph % (Auto) Yates % (Auto) Eos % (Auto) Baso % (Auto) Lymph # (Auto) Yates # (Auto) Eos # (Auto) Baso # (Auto) Abs Immat Gran (auto) Absolute Neuts (auto) Absolute Nucleated RBC Nucleated RBC % (auto) Neutrophils % (Manual) Band Neutrophils % Lymphocytes % (Manual) Atypical Lymphs % (Man) Monocytes % (Manual) Eosinophils % (Manual) Metamyelocytes % Myelocytes % Promyelocytes % Abs Neuts (Manual) Lymphocytes # (Manual) Atyp Lymphs # (Manual) Monocytes # (Manual) Eosinophils # (Manual) Metamyelocytes # Myelocytes # Promyelocytes # Nucleated RBCs Smudge Cells Toxic Granulation Toxic Vacuolation Platelet Estimate Large Platelets Plt Morphology Comment RBC Morphology Polychromasia Hypochromasia Basophilic Stippling Spherocytes Tear Drop Cells Ovalocytes Rosa-[place] Bodies Jyoti Cells Acanthocytes (Spur) Schistocytes PT INR aPTT Heparin Protocol D-Dimer High Sensitivty O2 Saturation ABG pH at Pt Temp ABG pCO2 at Pt Temp ABG pO2 at Pt Temp ABG HCO3 ABG Base Excess (Actual) VBG pH VBG pCO2 VBG pO2 VBG HCO3 VBG O2 Saturation VBG Base Excess Sodium 139 Potassium 4.0 D Chloride 97 Carbon Dioxide 31 H Anion Gap 15 BUN 22 H Creatinine 0.95 Estim Creat Clear Calc 76.2 Estimated GFR 59 POC Glucose 215 H 257 H Random Glucose 182 H Lactic Acid Lactic Acid F/U @ 2Hr Calcium 7.8 L Phosphorus Magnesium Total Bilirubin Direct Bilirubin AST ALT Alkaline Phosphatase Ammonia Troponin I High Sens B-Natriuretic Peptide Total Protein Albumin Lipase 25-OH Vitamin D Total Procalcitonin TSH Urine Color Urine Appearance Urine pH Ur Specific [place] Urine Protein Urine Glucose (UA) Urine Ketones Urine Blood Urine Nitrite Ur Leukocyte Esterase Urine RBC Urine WBC Ur Squamous Epith Cells Urine Bacteria Hyaline Casts Nasal Screen MRSA (PCR) Nasal S. aureus Screen Nasal MRSA/S.aureus Interp Stool Occult Blood Stl C. cayetanensis PCR Stool Rotavirus A PCR Stl Adenov F 40/41 PCR Stool Astrovirus (PCR) Stool Campylobacter PCR Stool Cryptosporidium PCR Stl Sh Tox Pr E STEC PCR Stool E coli O157 PCR Stl Enterotoxigenic E PCR Stool EPEC (PCR) Stool EAEC (PCR) Stl E. histolytica PCR Stool Giardia Lamblia PCR Stl P. shigelloides PCR Stool Salmonella PCR Stool Sapovirus (PCR) Stl Shigella/EIEC PCR St Y.enterocolitica PCR Stool Vibrio (PCR) Stl Vibrio cholerae PCR Stl Norovirus GI/GII PCR Random Vancomycin Valproic Acid Carbamazepine Lamotrigine Clozapine Norclozapine Respiratory Panel Ashley Adenovirus (Rapid PCR) B.pert (TEM-PCR) B.parapertussis DNA PCR C. pneumoniae DNA (PCR) Coronavirus OC43 (PCR) Coronavirus HKU1 (PCR) Coronavirus 229E (PCR) Coronavirus NL63 (PCR) Hepatitis A IgM Ab Hep Bs Antigen Hepatitis C Ab (EIA) Human Metapneumovir PCR Influenza A (RT-PCR) Influenza Type A (PCR) Influenza B (RT-PCR) Influenza Type B (PCR) M. pneumoniae (PCR) Parainfluenza 1 (PCR) Parainfluenza 2 (PCR) Parainfluenza 3 (PCR) Parainfluenza 4 (PCR) RSV (PCR) RSV RNA Qual (PCR) Entero/Rhino (PCR) SARS-CoV-2 RNA (RT-PCR) Blood Type Antibody Screen 05/31/23 05/31/23 05/31/23 05:02 11:11 14:04 WBC 14.9 H RBC 3.78 L Hgb 11.8 L Hct 34.7 L MCV 91.8 MCH 31.2 MCHC 34.0 RDW 13.5 Plt Count 116 L MPV 12.5 H Immature Gran % (Auto) 1.4 H Neut % (Auto) 84.2 H Lymph % (Auto) 8.7 L Yates % (Auto) 4.8 Eos % (Auto) 0.2 Baso % (Auto) 0.7 Lymph # (Auto) 1.3 Yates # (Auto) 0.7 Eos # (Auto) 0.0 Baso # (Auto) 0.1 Abs Immat Gran (auto) 0.21 H Absolute Neuts (auto) 12.6 H Absolute Nucleated RBC 0.030 H Nucleated RBC % (auto) 0.2 Neutrophils % (Manual) Band Neutrophils % Lymphocytes % (Manual) Atypical Lymphs % (Man) Monocytes % (Manual) Eosinophils % (Manual) Metamyelocytes % Myelocytes % Promyelocytes % Abs Neuts (Manual) Lymphocytes # (Manual) Atyp Lymphs # (Manual) Monocytes # (Manual) Eosinophils # (Manual) Metamyelocytes # Myelocytes # Promyelocytes # Nucleated RBCs Smudge Cells Toxic Granulation Toxic Vacuolation Platelet Estimate Large Platelets Plt Morphology Comment RBC Morphology Polychromasia Hypochromasia Basophilic Stippling Spherocytes Tear Drop Cells Ovalocytes Rosa-[place] Bodies [place] Cells Acanthocytes (Spur) Schistocytes PT INR aPTT Heparin Protocol D-Dimer High Sensitivty O2 Saturation ABG pH at Pt Temp ABG pCO2 at Pt Temp ABG pO2 at Pt Temp ABG HCO3 ABG Base Excess (Actual) VBG pH 7.50 H VBG pCO2 42 VBG pO2 70 VBG HCO3 34 H VBG O2 Saturation 94.0 VBG Base Excess 10.0 Sodium 137 135 Potassium 2.9 L* D 3.4 Chloride 95 L 95 L Carbon Dioxide 30 H 29 Anion Gap 15 14 BUN 25 H 21 H Creatinine 0.94 0.86 Estim Creat Clear Calc 76.9 84.1 Estimated GFR 60 > 60 POC Glucose 193 H Random Glucose 247 H 228 H Lactic Acid Lactic Acid F/U @ 2Hr Calcium 8.3 L D 8.3 L Phosphorus 1.7 L Magnesium 2.5 Total Bilirubin 0.8 Direct Bilirubin AST 189 H ALT 137 H Alkaline Phosphatase 101 Ammonia Troponin I High Sens B-Natriuretic Peptide Total Protein 6.2 L Albumin 3.2 L Lipase 25-OH Vitamin D Total Procalcitonin TSH Urine Color Urine Appearance Urine pH Ur Specific [place] Urine Protein Urine Glucose (UA) Urine Ketones Urine Blood Urine Nitrite Ur Leukocyte Esterase Urine RBC Urine WBC Ur Squamous Epith Cells Urine Bacteria Hyaline Casts Nasal Screen MRSA (PCR) Nasal S. aureus Screen Nasal MRSA/S.aureus Interp Stool Occult Blood Stl C. cayetanensis PCR Stool Rotavirus A PCR Stl Adenov F 40/41 PCR Stool Astrovirus (PCR) Stool Campylobacter PCR Stool Cryptosporidium PCR Stl Sh Tox Pr E STEC PCR Stool E coli O157 PCR Stl Enterotoxigenic E PCR Stool EPEC (PCR) Stool EAEC (PCR) Stl E. histolytica PCR Stool Giardia Lamblia PCR Stl P. shigelloides PCR Stool Salmonella PCR Stool Sapovirus (PCR) Stl Shigella/EIEC PCR St Y.enterocolitica PCR Stool Vibrio (PCR) Stl Vibrio cholerae PCR Stl Norovirus GI/GII PCR Random Vancomycin Valproic Acid Carbamazepine Lamotrigine Clozapine Norclozapine Respiratory Panel Ashley Adenovirus (Rapid PCR) B.pert (TEM-PCR) B.parapertussis DNA PCR C. pneumoniae DNA (PCR) Coronavirus OC43 (PCR) Coronavirus HKU1 (PCR) Coronavirus 229E (PCR) Coronavirus NL63 (PCR) Hepatitis A IgM Ab Hep Bs Antigen Hepatitis C Ab (EIA) Human Metapneumovir PCR Influenza A (RT-PCR) Influenza Type A (PCR) Influenza B (RT-PCR) Influenza Type B (PCR) M. pneumoniae (PCR) Parainfluenza 1 (PCR) Parainfluenza 2 (PCR) Parainfluenza 3 (PCR) Parainfluenza 4 (PCR) RSV (PCR) RSV RNA Qual (PCR) Entero/Rhino (PCR) SARS-CoV-2 RNA (RT-PCR) Blood Type Antibody Screen 05/31/23 05/31/23 06/01/23 17:26 23:46 05:08 WBC 13.6 H RBC 3.67 L Hgb 11.4 L Hct 33.7 L MCV 91.8 MCH 31.1 MCHC 33.8 RDW 13.6 Plt Count 142 L MPV 12.1 Immature Gran % (Auto) Cancelled Neut % (Auto) Cancelled Lymph % (Auto) Cancelled Yates % (Auto) Cancelled Eos % (Auto) Cancelled Baso % (Auto) Cancelled Lymph # (Auto) Cancelled Yates # (Auto) Cancelled Eos # (Auto) Cancelled Baso # (Auto) Cancelled Abs Immat Gran (auto) Cancelled Absolute Neuts (auto) Cancelled Absolute Nucleated RBC 0.090 H Nucleated RBC % (auto) 0.7 H Neutrophils % (Manual) 62 Band Neutrophils % 12 H Lymphocytes % (Manual) 12 L Atypical Lymphs % (Man) Monocytes % (Manual) 7 Eosinophils % (Manual) 1 Metamyelocytes % 4 Myelocytes % 1 Promyelocytes % 1 Abs Neuts (Manual) 10.1 H Lymphocytes # (Manual) 1.6 Atyp Lymphs # (Manual) Monocytes # (Manual) 1.0 Eosinophils # (Manual) 0.1 Metamyelocytes # 0.5 Myelocytes # 0.1 Promyelocytes # 0.1 Nucleated RBCs Smudge Cells Toxic Granulation PRESENT Toxic Vacuolation PRESENT Platelet Estimate NORMAL Large Platelets PRESENT Plt Morphology Comment NOTED RBC Morphology NORMAL Polychromasia Hypochromasia Basophilic Stippling 1+ (0-2) Spherocytes 2+ (3-5) Tear Drop Cells 1+ (0-2) Ovalocytes Rosa-[place] Bodies Jyoti Cells Acanthocytes (Spur) 2+ (3-5) Schistocytes PT INR aPTT Heparin Protocol D-Dimer High Sensitivty O2 Saturation ABG pH at Pt Temp ABG pCO2 at Pt Temp ABG pO2 at Pt Temp ABG HCO3 ABG Base Excess (Actual) VBG pH VBG pCO2 VBG pO2 VBG HCO3 VBG O2 Saturation VBG Base Excess Sodium 136 Potassium 2.9 L* Chloride 94 L Carbon Dioxide 31 H Anion Gap 14 BUN 23 H Creatinine 0.76 Estim Creat Clear Calc 95.2 Estimated GFR > 60 POC Glucose 220 H 216 H Random Glucose 231 H Lactic Acid Lactic Acid F/U @ 2Hr Calcium 8.5 Phosphorus 2.2 L Magnesium 2.6 Total Bilirubin Direct Bilirubin AST ALT Alkaline Phosphatase Ammonia Troponin I High Sens B-Natriuretic Peptide Total Protein Albumin 3.0 L Lipase 25-OH Vitamin D Total Procalcitonin TSH Urine Color Urine Appearance Urine pH Ur Specific [place] Urine Protein Urine Glucose (UA) Urine Ketones Urine Blood Urine Nitrite Ur Leukocyte Esterase Urine RBC Urine WBC Ur Squamous Epith Cells Urine Bacteria Hyaline Casts Nasal Screen MRSA (PCR) Nasal S. aureus Screen Nasal MRSA/S.aureus Interp Stool Occult Blood Stl C. cayetanensis PCR Stool Rotavirus A PCR Stl Adenov F 40/41 PCR Stool Astrovirus (PCR) Stool Campylobacter PCR Stool Cryptosporidium PCR Stl Sh Tox Pr E STEC PCR Stool E coli O157 PCR Stl Enterotoxigenic E PCR Stool EPEC (PCR) Stool EAEC (PCR) Stl E. histolytica PCR Stool Giardia Lamblia PCR Stl P. shigelloides PCR Stool Salmonella PCR Stool Sapovirus (PCR) Stl Shigella/EIEC PCR St Y.enterocolitica PCR Stool Vibrio (PCR) Stl Vibrio cholerae PCR Stl Norovirus GI/GII PCR Random Vancomycin Valproic Acid Carbamazepine Lamotrigine Clozapine Norclozapine Respiratory Panel Ashley Adenovirus (Rapid PCR) B.pert (TEM-PCR) B.parapertussis DNA PCR C. pneumoniae DNA (PCR) Coronavirus OC43 (PCR) Coronavirus HKU1 (PCR) Coronavirus 229E (PCR) Coronavirus NL63 (PCR) Hepatitis A IgM Ab Hep Bs Antigen Hepatitis C Ab (EIA) Human Metapneumovir PCR Influenza A (RT-PCR) Influenza Type A (PCR) Influenza B (RT-PCR) Influenza Type B (PCR) M. pneumoniae (PCR) Parainfluenza 1 (PCR) Parainfluenza 2 (PCR) Parainfluenza 3 (PCR) Parainfluenza 4 (PCR) RSV (PCR) RSV RNA Qual (PCR) Entero/Rhino (PCR) SARS-CoV-2 RNA (RT-PCR) Blood Type Antibody Screen 06/01/23 06/01/23 06/01/23 05:09 06:09 11:16 WBC RBC Hgb Hct MCV MCH MCHC RDW Plt Count MPV Immature Gran % (Auto) Neut % (Auto) Lymph % (Auto) Yates % (Auto) Eos % (Auto) Baso % (Auto) Lymph # (Auto) Yates # (Auto) Eos # (Auto) Baso # (Auto) Abs Immat Gran (auto) Absolute Neuts (auto) Absolute Nucleated RBC Nucleated RBC % (auto) Neutrophils % (Manual) Band Neutrophils % Lymphocytes % (Manual) Atypical Lymphs % (Man) Monocytes % (Manual) Eosinophils % (Manual) Metamyelocytes % Myelocytes % Promyelocytes % Abs Neuts (Manual) Lymphocytes # (Manual) Atyp Lymphs # (Manual) Monocytes # (Manual) Eosinophils # (Manual) Metamyelocytes # Myelocytes # Promyelocytes # Nucleated RBCs Smudge Cells Toxic Granulation Toxic Vacuolation Platelet Estimate Large Platelets Plt Morphology Comment RBC Morphology Polychromasia Hypochromasia Basophilic Stippling Spherocytes Tear Drop Cells Ovalocytes Rosa-Strathcona Bodies [place] Cells Acanthocytes (Spur) Schistocytes PT INR aPTT Heparin Protocol D-Dimer High Sensitivty O2 Saturation ABG pH at Pt Temp ABG pCO2 at Pt Temp ABG pO2 at Pt Temp ABG HCO3 ABG Base Excess (Actual) VBG pH 7.49 H VBG pCO2 46 VBG pO2 81 VBG HCO3 35 H VBG O2 Saturation 99.0 VBG Base Excess 11.1 Sodium Potassium Chloride Carbon Dioxide Anion Gap BUN Creatinine Estim Creat Clear Calc Estimated GFR POC Glucose 237 H 263 H Random Glucose Lactic Acid Lactic Acid F/U @ 2Hr Calcium Phosphorus Magnesium Total Bilirubin Direct Bilirubin AST ALT Alkaline Phosphatase Ammonia Troponin I High Sens B-Natriuretic Peptide Total Protein Albumin Lipase 25-OH Vitamin D Total Procalcitonin TSH Urine Color Urine Appearance Urine pH Ur Specific [place] Urine Protein Urine Glucose (UA) Urine Ketones Urine Blood Urine Nitrite Ur Leukocyte Esterase Urine RBC Urine WBC Ur Squamous Epith Cells Urine Bacteria Hyaline Casts Nasal Screen MRSA (PCR) Nasal S. aureus Screen Nasal MRSA/S.aureus Interp Stool Occult Blood Stl C. cayetanensis PCR Stool Rotavirus A PCR Stl Adenov F 40/41 PCR Stool Astrovirus (PCR) Stool Campylobacter PCR Stool Cryptosporidium PCR Stl Sh Tox Pr E STEC PCR Stool E coli O157 PCR Stl Enterotoxigenic E PCR Stool EPEC (PCR) Stool EAEC (PCR) Stl E. histolytica PCR Stool Giardia Lamblia PCR Stl P. shigelloides PCR Stool Salmonella PCR Stool Sapovirus (PCR) Stl Shigella/EIEC PCR St Y.enterocolitica PCR Stool Vibrio (PCR) Stl Vibrio cholerae PCR Stl Norovirus GI/GII PCR Random Vancomycin Valproic Acid Carbamazepine Lamotrigine Clozapine Norclozapine Respiratory Panel Ashley Adenovirus (Rapid PCR) B.pert (TEM-PCR) B.parapertussis DNA PCR C. pneumoniae DNA (PCR) Coronavirus OC43 (PCR) Coronavirus HKU1 (PCR) Coronavirus 229E (PCR) Coronavirus NL63 (PCR) Hepatitis A IgM Ab Hep Bs Antigen Hepatitis C Ab (EIA) Human Metapneumovir PCR Influenza A (RT-PCR) Influenza Type A (PCR) Influenza B (RT-PCR) Influenza Type B (PCR) M. pneumoniae (PCR) Parainfluenza 1 (PCR) Parainfluenza 2 (PCR) Parainfluenza 3 (PCR) Parainfluenza 4 (PCR) RSV (PCR) RSV RNA Qual (PCR) Entero/Rhino (PCR) SARS-CoV-2 RNA (RT-PCR) Blood Type Antibody Screen 06/01/23 06/01/23 06/02/23 17:08 20:56 00:21 WBC RBC Hgb Hct MCV MCH MCHC RDW Plt Count MPV Immature Gran % (Auto) Neut % (Auto) Lymph % (Auto) Yates % (Auto) Eos % (Auto) Baso % (Auto) Lymph # (Auto) Yates # (Auto) Eos # (Auto) Baso # (Auto) Abs Immat Gran (auto) Absolute Neuts (auto) Absolute Nucleated RBC Nucleated RBC % (auto) Neutrophils % (Manual) Band Neutrophils % Lymphocytes % (Manual) Atypical Lymphs % (Man) Monocytes % (Manual) Eosinophils % (Manual) Metamyelocytes % Myelocytes % Promyelocytes % Abs Neuts (Manual) Lymphocytes # (Manual) Atyp Lymphs # (Manual) Monocytes # (Manual) Eosinophils # (Manual) Metamyelocytes # Myelocytes # Promyelocytes # Nucleated RBCs Smudge Cells Toxic Granulation Toxic Vacuolation Platelet Estimate Large Platelets Plt Morphology Comment RBC Morphology Polychromasia Hypochromasia Basophilic Stippling Spherocytes Tear Drop Cells Ovalocytes Rosa-[place] Bodies [place] Cells Acanthocytes (Spur) Schistocytes PT INR aPTT Heparin Protocol D-Dimer High Sensitivty O2 Saturation ABG pH at Pt Temp ABG pCO2 at Pt Temp ABG pO2 at Pt Temp ABG HCO3 ABG Base Excess (Actual) VBG pH VBG pCO2 VBG pO2 VBG HCO3 VBG O2 Saturation VBG Base Excess Sodium 137 Potassium 3.4 Chloride 97 Carbon Dioxide 29 Anion Gap 14 BUN 18 H Creatinine 0.87 Estim Creat Clear Calc 83.1 Estimated GFR > 60 POC Glucose 309 H 237 H Random Glucose 282 H Lactic Acid Lactic Acid F/U @ 2Hr Calcium 8.6 Phosphorus 2.4 L Magnesium 2.5 Total Bilirubin 1.2 H Direct Bilirubin AST 307 H ALT 301 H Alkaline Phosphatase 127 H Ammonia Troponin I High Sens B-Natriuretic Peptide Total Protein 6.3 L Albumin 2.9 L Lipase 25-OH Vitamin D Total Procalcitonin TSH Urine Color Urine Appearance Urine pH Ur Specific [place] Urine Protein Urine Glucose (UA) Urine Ketones Urine Blood Urine Nitrite Ur Leukocyte Esterase Urine RBC Urine WBC Ur Squamous Epith Cells Urine Bacteria Hyaline Casts Nasal Screen MRSA (PCR) Nasal S. aureus Screen Nasal MRSA/S.aureus Interp Stool Occult Blood Stl C. cayetanensis PCR Stool Rotavirus A PCR Stl Adenov F 40/ PCR Stool Astrovirus (PCR) Stool Campylobacter PCR Stool Cryptosporidium PCR Stl Sh Tox Pr E STEC PCR Stool E coli O157 PCR Stl Enterotoxigenic E PCR Stool EPEC (PCR) Stool EAEC (PCR) Stl E. histolytica PCR Stool Giardia Lamblia PCR Stl P. shigelloides PCR Stool Salmonella PCR Stool Sapovirus (PCR) Stl Shigella/EIEC PCR St Y.enterocolitica PCR Stool Vibrio (PCR) Stl Vibrio cholerae PCR Stl Norovirus GI/GII PCR Random Vancomycin Valproic Acid Carbamazepine Lamotrigine Clozapine Norclozapine Respiratory Panel Ashley Adenovirus (Rapid PCR) B.pert (TEM-PCR) B.parapertussis DNA PCR C. pneumoniae DNA (PCR) Coronavirus OC43 (PCR) Coronavirus HKU1 (PCR) Coronavirus 229E (PCR) Coronavirus NL63 (PCR) Hepatitis A IgM Ab Hep Bs Antigen Hepatitis C Ab (EIA) Human Metapneumovir PCR Influenza A (RT-PCR) Influenza Type A (PCR) Influenza B (RT-PCR) Influenza Type B (PCR) M. pneumoniae (PCR) Parainfluenza 1 (PCR) Parainfluenza 2 (PCR) Parainfluenza 3 (PCR) Parainfluenza 4 (PCR) RSV (PCR) RSV RNA Qual (PCR) Entero/Rhino (PCR) SARS-CoV-2 RNA (RT-PCR) Blood Type Antibody Screen 06/02/23 06/02/23 06/02/23 05:20 05:23 11:16 WBC 11.1 H RBC 2.96 L Hgb 9.3 L Hct 28.0 L MCV 94.6 MCH 31.4 MCHC 33.2 RDW 13.9 Plt Count 171 MPV 11.8 Immature Gran % (Auto) Cancelled Neut % (Auto) Cancelled Lymph % (Auto) Cancelled Yates % (Auto) Cancelled Eos % (Auto) Cancelled Baso % (Auto) Cancelled Lymph # (Auto) Cancelled Yates # (Auto) Cancelled Eos # (Auto) Cancelled Baso # (Auto) Cancelled Abs Immat Gran (auto) Cancelled Absolute Neuts (auto) Cancelled Absolute Nucleated RBC 0.070 H Nucleated RBC % (auto) 0.6 H Neutrophils % (Manual) 65 Band Neutrophils % 5 Lymphocytes % (Manual) 14 L Atypical Lymphs % (Man) 1 Monocytes % (Manual) 3 Eosinophils % (Manual) 1 Metamyelocytes % 9 Myelocytes % 2 Promyelocytes % Abs Neuts (Manual) 7.8 Lymphocytes # (Manual) 1.6 Atyp Lymphs # (Manual) 0.1 Monocytes # (Manual) 0.3 Eosinophils # (Manual) 0.1 Metamyelocytes # 1.0 Myelocytes # 0.2 Promyelocytes # Nucleated RBCs 3 H Smudge Cells Toxic Granulation Toxic Vacuolation PRESENT Platelet Estimate NORMAL Large Platelets Plt Morphology Comment NORMAL RBC Morphology NOTED Polychromasia 1+ (0-2) Hypochromasia 1+ (5-14) Basophilic Stippling Spherocytes Tear Drop Cells Ovalocytes Rosa-[place] Bodies Jyoti Cells Acanthocytes (Spur) Schistocytes PT INR aPTT Heparin Protocol D-Dimer High Sensitivty O2 Saturation ABG pH at Pt Temp ABG pCO2 at Pt Temp ABG pO2 at Pt Temp ABG HCO3 ABG Base Excess (Actual) VBG pH 7.47 H VBG pCO2 46 VBG pO2 56 VBG HCO3 34 H VBG O2 Saturation 87.0 VBG Base Excess 9.6 Sodium 140 Potassium 3.1 L Chloride 99 Carbon Dioxide 29 Anion Gap 15 BUN 19 H Creatinine 0.83 Estim Creat Clear Calc 87.1 Estimated GFR > 60 POC Glucose 284 H Random Glucose 231 H Lactic Acid Lactic Acid F/U @ 2Hr Calcium 9.0 Phosphorus 3.3 Magnesium 2.4 Total Bilirubin Direct Bilirubin AST ALT Alkaline Phosphatase Ammonia Troponin I High Sens B-Natriuretic Peptide Total Protein Albumin 3.9 Lipase 25-OH Vitamin D Total Procalcitonin TSH Urine Color Urine Appearance Urine pH Ur Specific [place] Urine Protein Urine Glucose (UA) Urine Ketones Urine Blood Urine Nitrite Ur Leukocyte Esterase Urine RBC Urine WBC Ur Squamous Epith Cells Urine Bacteria Hyaline Casts Nasal Screen MRSA (PCR) Nasal S. aureus Screen Nasal MRSA/S.aureus Interp Stool Occult Blood Stl C. cayetanensis PCR Stool Rotavirus A PCR Stl Adenov F 40/41 PCR Stool Astrovirus (PCR) Stool Campylobacter PCR Stool Cryptosporidium PCR Stl Sh Tox Pr E STEC PCR Stool E coli O157 PCR Stl Enterotoxigenic E PCR Stool EPEC (PCR) Stool EAEC (PCR) Stl E. histolytica PCR Stool Giardia Lamblia PCR Stl P. shigelloides PCR Stool Salmonella PCR Stool Sapovirus (PCR) Stl Shigella/EIEC PCR St Y.enterocolitica PCR Stool Vibrio (PCR) Stl Vibrio cholerae PCR Stl Norovirus GI/GII PCR Random Vancomycin Valproic Acid Carbamazepine Lamotrigine Clozapine Norclozapine Respiratory Panel Ashley Adenovirus (Rapid PCR) B.pert (TEM-PCR) B.parapertussis DNA PCR C. pneumoniae DNA (PCR) Coronavirus OC43 (PCR) Coronavirus HKU1 (PCR) Coronavirus 229E (PCR) Coronavirus NL63 (PCR) Hepatitis A IgM Ab Hep Bs Antigen Hepatitis C Ab (EIA) Human Metapneumovir PCR Influenza A (RT-PCR) Influenza Type A (PCR) Influenza B (RT-PCR) Influenza Type B (PCR) M. pneumoniae (PCR) Parainfluenza 1 (PCR) Parainfluenza 2 (PCR) Parainfluenza 3 (PCR) Parainfluenza 4 (PCR) RSV (PCR) RSV RNA Qual (PCR) Entero/Rhino (PCR) SARS-CoV-2 RNA (RT-PCR) Blood Type Antibody Screen 06/02/23 06/02/23 06/02/23 13:51 17:11 19:53 WBC RBC Hgb Hct MCV MCH MCHC RDW Plt Count MPV Immature Gran % (Auto) Neut % (Auto) Lymph % (Auto) Yates % (Auto) Eos % (Auto) Baso % (Auto) Lymph # (Auto) Yates # (Auto) Eos # (Auto) Baso # (Auto) Abs Immat Gran (auto) Absolute Neuts (auto) Absolute Nucleated RBC Nucleated RBC % (auto) Neutrophils % (Manual) Band Neutrophils % Lymphocytes % (Manual) Atypical Lymphs % (Man) Monocytes % (Manual) Eosinophils % (Manual) Metamyelocytes % Myelocytes % Promyelocytes % Abs Neuts (Manual) Lymphocytes # (Manual) Atyp Lymphs # (Manual) Monocytes # (Manual) Eosinophils # (Manual) Metamyelocytes # Myelocytes # Promyelocytes # Nucleated RBCs Smudge Cells Toxic Granulation Toxic Vacuolation Platelet Estimate Large Platelets Plt Morphology Comment RBC Morphology Polychromasia Hypochromasia Basophilic Stippling Spherocytes Tear Drop Cells Ovalocytes Rosa-[place] Bodies [place] Cells Acanthocytes (Spur) Schistocytes PT INR aPTT Heparin Protocol D-Dimer High Sensitivty O2 Saturation ABG pH at Pt Temp ABG pCO2 at Pt Temp ABG pO2 at Pt Temp ABG HCO3 ABG Base Excess (Actual) VBG pH VBG pCO2 VBG pO2 VBG HCO3 VBG O2 Saturation VBG Base Excess Sodium 141 Potassium 3.4 Chloride 101 Carbon Dioxide 31 H Anion Gap 12 BUN 26 H Creatinine 0.79 Estim Creat Clear Calc 91.5 Estimated GFR > 60 POC Glucose 286 H Random Glucose 246 H Lactic Acid Lactic Acid F/U @ 2Hr Calcium 9.1 Phosphorus Magnesium Total Bilirubin 1.2 H Direct Bilirubin AST 246 H ALT 307 H Alkaline Phosphatase 126 H Ammonia Troponin I High Sens B-Natriuretic Peptide Total Protein 6.4 L Albumin 3.7 Lipase 25-OH Vitamin D Total Procalcitonin TSH Urine Color Urine Appearance Urine pH Ur Specific [place] Urine Protein Urine Glucose (UA) Urine Ketones Urine Blood Urine Nitrite Ur Leukocyte Esterase Urine RBC Urine WBC Ur Squamous Epith Cells Urine Bacteria Hyaline Casts Nasal Screen MRSA (PCR) POSITIVE A Nasal S. aureus Screen POSITIVE A Nasal MRSA/S.aureus Interp SEE NOTE Stool Occult Blood Stl C. cayetanensis PCR Stool Rotavirus A PCR Stl Adenov F 40/41 PCR Stool Astrovirus (PCR) Stool Campylobacter PCR Stool Cryptosporidium PCR Stl Sh Tox Pr E STEC PCR Stool E coli O157 PCR Stl Enterotoxigenic E PCR Stool EPEC (PCR) Stool EAEC (PCR) Stl E. histolytica PCR Stool Giardia Lamblia PCR Stl P. shigelloides PCR Stool Salmonella PCR Stool Sapovirus (PCR) Stl Shigella/EIEC PCR St Y.enterocolitica PCR Stool Vibrio (PCR) Stl Vibrio cholerae PCR Stl Norovirus GI/GII PCR Random Vancomycin Valproic Acid Carbamazepine Lamotrigine Clozapine Norclozapine Respiratory Panel Ashley Adenovirus (Rapid PCR) B.pert (TEM-PCR) B.parapertussis DNA PCR C. pneumoniae DNA (PCR) Coronavirus OC43 (PCR) Coronavirus HKU1 (PCR) Coronavirus 229E (PCR) Coronavirus NL63 (PCR) Hepatitis A IgM Ab Hep Bs Antigen Hepatitis C Ab (EIA) Human Metapneumovir PCR Influenza A (RT-PCR) Influenza Type A (PCR) Influenza B (RT-PCR) Influenza Type B (PCR) M. pneumoniae (PCR) Parainfluenza 1 (PCR) Parainfluenza 2 (PCR) Parainfluenza 3 (PCR) Parainfluenza 4 (PCR) RSV (PCR) RSV RNA Qual (PCR) Entero/Rhino (PCR) SARS-CoV-2 RNA (RT-PCR) Blood Type Antibody Screen 06/02/23 06/03/23 06/03/23 23:48 05:47 05:51 WBC 15.8 H RBC 3.33 L Hgb 10.2 L Hct 31.0 L MCV 93.1 MCH 30.6 MCHC 32.9 RDW 14.3 Plt Count 239 D MPV 11.2 Immature Gran % (Auto) Cancelled Neut % (Auto) Cancelled Lymph % (Auto) Cancelled Yates % (Auto) Cancelled Eos % (Auto) Cancelled Baso % (Auto) Cancelled Lymph # (Auto) Cancelled Yates # (Auto) Cancelled Eos # (Auto) Cancelled Baso # (Auto) Cancelled Abs Immat Gran (auto) Cancelled Absolute Neuts (auto) Cancelled Absolute Nucleated RBC 0.060 H Nucleated RBC % (auto) 0.4 H Neutrophils % (Manual) 44 L Band Neutrophils % 21 H Lymphocytes % (Manual) 21 Atypical Lymphs % (Man) Monocytes % (Manual) 5 Eosinophils % (Manual) 4 Metamyelocytes % 2 Myelocytes % 2 Promyelocytes % 1 Abs Neuts (Manual) 10.3 H Lymphocytes # (Manual) 3.3 Atyp Lymphs # (Manual) Monocytes # (Manual) 0.8 Eosinophils # (Manual) 0.6 H Metamyelocytes # 0.3 Myelocytes # 0.3 Promyelocytes # 0.2 Nucleated RBCs 1 H Smudge Cells PRESENT Toxic Granulation PRESENT Toxic Vacuolation PRESENT Platelet Estimate NORMAL Large Platelets Plt Morphology Comment NORMAL RBC Morphology NOTED Polychromasia 1+ (0-2) Hypochromasia 1+ (5-14) Basophilic Stippling 1+ (0-2) Spherocytes Tear Drop Cells Ovalocytes Rosa-[place] Bodies PRESENT Jyoti Cells Acanthocytes (Spur) Schistocytes PT INR aPTT Heparin Protocol D-Dimer High Sensitivty O2 Saturation ABG pH at Pt Temp ABG pCO2 at Pt Temp ABG pO2 at Pt Temp ABG HCO3 ABG Base Excess (Actual) VBG pH 7.48 H VBG pCO2 33 VBG pO2 43 VBG HCO3 25 VBG O2 Saturation 74.0 VBG Base Excess 2.5 Sodium 139 Potassium 3.5 Chloride 104 Carbon Dioxide 26 Anion Gap 13 BUN 32 H Creatinine 0.79 Estim Creat Clear Calc 91.5 Estimated GFR > 60 POC Glucose 187 H Random Glucose 204 H Lactic Acid Lactic Acid F/U @ 2Hr Calcium 9.0 Phosphorus 2.2 L Magnesium 2.4 Total Bilirubin 1.1 H Direct Bilirubin AST 172 H ALT 270 H Alkaline Phosphatase 120 H Ammonia Troponin I High Sens B-Natriuretic Peptide Total Protein 6.2 L Albumin 3.4 L Lipase 25-OH Vitamin D Total Procalcitonin TSH Urine Color Urine Appearance Urine pH Ur Specific [place] Urine Protein Urine Glucose (UA) Urine Ketones Urine Blood Urine Nitrite Ur Leukocyte Esterase Urine RBC Urine WBC Ur Squamous Epith Cells Urine Bacteria Hyaline Casts Nasal Screen MRSA (PCR) Nasal S. aureus Screen Nasal MRSA/S.aureus Interp Stool Occult Blood Stl C. cayetanensis PCR Stool Rotavirus A PCR Stl Adenov F 40/41 PCR Stool Astrovirus (PCR) Stool Campylobacter PCR Stool Cryptosporidium PCR Stl Sh Tox Pr E STEC PCR Stool E coli O157 PCR Stl Enterotoxigenic E PCR Stool EPEC (PCR) Stool EAEC (PCR) Stl E. histolytica PCR Stool Giardia Lamblia PCR Stl P. shigelloides PCR Stool Salmonella PCR Stool Sapovirus (PCR) Stl Shigella/EIEC PCR St Y.enterocolitica PCR Stool Vibrio (PCR) Stl Vibrio cholerae PCR Stl Norovirus GI/GII PCR Random Vancomycin Valproic Acid Carbamazepine Lamotrigine Clozapine Norclozapine Respiratory Panel Ashley Adenovirus (Rapid PCR) B.pert (TEM-PCR) B.parapertussis DNA PCR C. pneumoniae DNA (PCR) Coronavirus OC43 (PCR) Coronavirus HKU1 (PCR) Coronavirus 229E (PCR) Coronavirus NL63 (PCR) Hepatitis A IgM Ab Hep Bs Antigen Hepatitis C Ab (EIA) Human Metapneumovir PCR Influenza A (RT-PCR) Influenza Type A (PCR) Influenza B (RT-PCR) Influenza Type B (PCR) M. pneumoniae (PCR) Parainfluenza 1 (PCR) Parainfluenza 2 (PCR) Parainfluenza 3 (PCR) Parainfluenza 4 (PCR) RSV (PCR) RSV RNA Qual (PCR) Entero/Rhino (PCR) SARS-CoV-2 RNA (RT-PCR) Blood Type Antibody Screen 06/03/23 06/03/23 06/03/23 05:53 11:03 11:22 WBC RBC Hgb Hct MCV MCH MCHC RDW Plt Count MPV Immature Gran % (Auto) Neut % (Auto) Lymph % (Auto) Yates % (Auto) Eos % (Auto) Baso % (Auto) Lymph # (Auto) Yates # (Auto) Eos # (Auto) Baso # (Auto) Abs Immat Gran (auto) Absolute Neuts (auto) Absolute Nucleated RBC Nucleated RBC % (auto) Neutrophils % (Manual) Band Neutrophils % Lymphocytes % (Manual) Atypical Lymphs % (Man) Monocytes % (Manual) Eosinophils % (Manual) Metamyelocytes % Myelocytes % Promyelocytes % Abs Neuts (Manual) Lymphocytes # (Manual) Atyp Lymphs # (Manual) Monocytes # (Manual) Eosinophils # (Manual) Metamyelocytes # Myelocytes # Promyelocytes # Nucleated RBCs Smudge Cells Toxic Granulation Toxic Vacuolation Platelet Estimate Large Platelets Plt Morphology Comment RBC Morphology Polychromasia Hypochromasia Basophilic Stippling Spherocytes Tear Drop Cells Ovalocytes Rosa-[place] Bodies Jyoti Cells Acanthocytes (Spur) Schistocytes PT INR aPTT Heparin Protocol D-Dimer High Sensitivty O2 Saturation ABG pH at Pt Temp ABG pCO2 at Pt Temp ABG pO2 at Pt Temp ABG HCO3 ABG Base Excess (Actual) VBG pH VBG pCO2 VBG pO2 VBG HCO3 VBG O2 Saturation VBG Base Excess Sodium Potassium Chloride Carbon Dioxide Anion Gap BUN Creatinine Estim Creat Clear Calc Estimated GFR POC Glucose 192 H 228 H Random Glucose Lactic Acid Lactic Acid F/U @ 2Hr Calcium Phosphorus Magnesium Total Bilirubin Direct Bilirubin AST ALT Alkaline Phosphatase Ammonia Troponin I High Sens B-Natriuretic Peptide Total Protein Albumin Lipase 25-OH Vitamin D Total Procalcitonin TSH Urine Color Urine Appearance Urine pH Ur Specific [place] Urine Protein Urine Glucose (UA) Urine Ketones Urine Blood Urine Nitrite Ur Leukocyte Esterase Urine RBC Urine WBC Ur Squamous Epith Cells Urine Bacteria Hyaline Casts Nasal Screen MRSA (PCR) Nasal S. aureus Screen Nasal MRSA/S.aureus Interp Stool Occult Blood Stl C. cayetanensis PCR Stool Rotavirus A PCR Stl Adenov F 40/41 PCR Stool Astrovirus (PCR) Stool Campylobacter PCR Stool Cryptosporidium PCR Stl Sh Tox Pr E STEC PCR Stool E coli O157 PCR Stl Enterotoxigenic E PCR Stool EPEC (PCR) Stool EAEC (PCR) Stl E. histolytica PCR Stool Giardia Lamblia PCR Stl P. shigelloides PCR Stool Salmonella PCR Stool Sapovirus (PCR) Stl Shigella/EIEC PCR St Y.enterocolitica PCR Stool Vibrio (PCR) Stl Vibrio cholerae PCR Stl Norovirus GI/GII PCR Random Vancomycin Valproic Acid Carbamazepine Lamotrigine Clozapine Norclozapine Respiratory Panel Ashley Adenovirus (Rapid PCR) B.pert (TEM-PCR) B.parapertussis DNA PCR C. pneumoniae DNA (PCR) Coronavirus OC43 (PCR) Coronavirus HKU1 (PCR) Coronavirus 229E (PCR) Coronavirus NL63 (PCR) Hepatitis A IgM Ab Nonreactive Hep Bs Antigen Negative Hepatitis C Ab (EIA) Nonreactive Human Metapneumovir PCR Influenza A (RT-PCR) Influenza Type A (PCR) Influenza B (RT-PCR) Influenza Type B (PCR) M. pneumoniae (PCR) Parainfluenza 1 (PCR) Parainfluenza 2 (PCR) Parainfluenza 3 (PCR) Parainfluenza 4 (PCR) RSV (PCR) RSV RNA Qual (PCR) Entero/Rhino (PCR) SARS-CoV-2 RNA (RT-PCR) Blood Type Antibody Screen 06/03/23 06/03/23 06/04/23 18:16 23:48 05:50 WBC RBC Hgb Hct MCV MCH MCHC RDW Plt Count MPV Immature Gran % (Auto) Neut % (Auto) Lymph % (Auto) Yates % (Auto) Eos % (Auto) Baso % (Auto) Lymph # (Auto) Yates # (Auto) Eos # (Auto) Baso # (Auto) Abs Immat Gran (auto) Absolute Neuts (auto) Absolute Nucleated RBC Nucleated RBC % (auto) Neutrophils % (Manual) Band Neutrophils % Lymphocytes % (Manual) Atypical Lymphs % (Man) Monocytes % (Manual) Eosinophils % (Manual) Metamyelocytes % Myelocytes % Promyelocytes % Abs Neuts (Manual) Lymphocytes # (Manual) Atyp Lymphs # (Manual) Monocytes # (Manual) Eosinophils # (Manual) Metamyelocytes # Myelocytes # Promyelocytes # Nucleated RBCs Smudge Cells Toxic Granulation Toxic Vacuolation Platelet Estimate Large Platelets Plt Morphology Comment RBC Morphology Polychromasia Hypochromasia Basophilic Stippling Spherocytes Tear Drop Cells Ovalocytes Rosa-[place] Bodies Jyoti Cells Acanthocytes (Spur) Schistocytes PT INR aPTT Heparin Protocol D-Dimer High Sensitivty O2 Saturation ABG pH at Pt Temp ABG pCO2 at Pt Temp ABG pO2 at Pt Temp ABG HCO3 ABG Base Excess (Actual) VBG pH 7.35 VBG pCO2 50 VBG pO2 56 VBG HCO3 28 H VBG O2 Saturation 85.0 VBG Base Excess 1.9 Sodium Potassium Chloride Carbon Dioxide Anion Gap BUN Creatinine 0.74 Estim Creat Clear Calc 96.1 Estimated GFR > 60 POC Glucose 230 H 208 H Random Glucose Lactic Acid Lactic Acid F/U @ 2Hr Calcium Phosphorus Magnesium Total Bilirubin Direct Bilirubin AST ALT Alkaline Phosphatase Ammonia Troponin I High Sens B-Natriuretic Peptide Total Protein Albumin Lipase 25-OH Vitamin D Total Procalcitonin TSH Urine Color Urine Appearance Urine pH Ur Specific [place] Urine Protein Urine Glucose (UA) Urine Ketones Urine Blood Urine Nitrite Ur Leukocyte Esterase Urine RBC Urine WBC Ur Squamous Epith Cells Urine Bacteria Hyaline Casts Nasal Screen MRSA (PCR) Nasal S. aureus Screen Nasal MRSA/S.aureus Interp Stool Occult Blood Stl C. cayetanensis PCR Stool Rotavirus A PCR Stl Adenov F 40/41 PCR Stool Astrovirus (PCR) Stool Campylobacter PCR Stool Cryptosporidium PCR Stl Sh Tox Pr E STEC PCR Stool E coli O157 PCR Stl Enterotoxigenic E PCR Stool EPEC (PCR) Stool EAEC (PCR) Stl E. histolytica PCR Stool Giardia Lamblia PCR Stl P. shigelloides PCR Stool Salmonella PCR Stool Sapovirus (PCR) Stl Shigella/EIEC PCR St Y.enterocolitica PCR Stool Vibrio (PCR) Stl Vibrio cholerae PCR Stl Norovirus GI/GII PCR Random Vancomycin Valproic Acid Carbamazepine Lamotrigine Clozapine Norclozapine Respiratory Panel Ashley Adenovirus (Rapid PCR) B.pert (TEM-PCR) B.parapertussis DNA PCR C. pneumoniae DNA (PCR) Coronavirus OC43 (PCR) Coronavirus HKU1 (PCR) Coronavirus 229E (PCR) Coronavirus NL63 (PCR) Hepatitis A IgM Ab Hep Bs Antigen Hepatitis C Ab (EIA) Human Metapneumovir PCR Influenza A (RT-PCR) Influenza Type A (PCR) Influenza B (RT-PCR) Influenza Type B (PCR) M. pneumoniae (PCR) Parainfluenza 1 (PCR) Parainfluenza 2 (PCR) Parainfluenza 3 (PCR) Parainfluenza 4 (PCR) RSV (PCR) RSV RNA Qual (PCR) Entero/Rhino (PCR) SARS-CoV-2 RNA (RT-PCR) Blood Type Antibody Screen 06/04/23 06/04/23 06/04/23 05:55 11:16 17:14 WBC RBC Hgb Hct MCV MCH MCHC RDW Plt Count MPV Immature Gran % (Auto) Neut % (Auto) Lymph % (Auto) Yates % (Auto) Eos % (Auto) Baso % (Auto) Lymph # (Auto) Yates # (Auto) Eos # (Auto) Baso # (Auto) Abs Immat Gran (auto) Absolute Neuts (auto) Absolute Nucleated RBC Nucleated RBC % (auto) Neutrophils % (Manual) Band Neutrophils % Lymphocytes % (Manual) Atypical Lymphs % (Man) Monocytes % (Manual) Eosinophils % (Manual) Metamyelocytes % Myelocytes % Promyelocytes % Abs Neuts (Manual) Lymphocytes # (Manual) Atyp Lymphs # (Manual) Monocytes # (Manual) Eosinophils # (Manual) Metamyelocytes # Myelocytes # Promyelocytes # Nucleated RBCs Smudge Cells Toxic Granulation Toxic Vacuolation Platelet Estimate Large Platelets Plt Morphology Comment RBC Morphology Polychromasia Hypochromasia Basophilic Stippling Spherocytes Tear Drop Cells Ovalocytes Rosa-[place] Bodies Jyoti Cells Acanthocytes (Spur) Schistocytes PT INR aPTT Heparin Protocol D-Dimer High Sensitivty O2 Saturation ABG pH at Pt Temp ABG pCO2 at Pt Temp ABG pO2 at Pt Temp ABG HCO3 ABG Base Excess (Actual) VBG pH VBG pCO2 VBG pO2 VBG HCO3 VBG O2 Saturation VBG Base Excess Sodium Potassium Chloride Carbon Dioxide Anion Gap BUN Creatinine Estim Creat Clear Calc Estimated GFR POC Glucose 213 H 271 H 187 H Random Glucose Lactic Acid Lactic Acid F/U @ 2Hr Calcium Phosphorus Magnesium Total Bilirubin Direct Bilirubin AST ALT Alkaline Phosphatase Ammonia Troponin I High Sens B-Natriuretic Peptide Total Protein Albumin Lipase 25-OH Vitamin D Total Procalcitonin TSH Urine Color Urine Appearance Urine pH Ur Specific [place] Urine Protein Urine Glucose (UA) Urine Ketones Urine Blood Urine Nitrite Ur Leukocyte Esterase Urine RBC Urine WBC Ur Squamous Epith Cells Urine Bacteria Hyaline Casts Nasal Screen MRSA (PCR) Nasal S. aureus Screen Nasal MRSA/S.aureus Interp Stool Occult Blood Stl C. cayetanensis PCR Stool Rotavirus A PCR Stl Adenov F 40/41 PCR Stool Astrovirus (PCR) Stool Campylobacter PCR Stool Cryptosporidium PCR Stl Sh Tox Pr E STEC PCR Stool E coli O157 PCR Stl Enterotoxigenic E PCR Stool EPEC (PCR) Stool EAEC (PCR) Stl E. histolytica PCR Stool Giardia Lamblia PCR Stl P. shigelloides PCR Stool Salmonella PCR Stool Sapovirus (PCR) Stl Shigella/EIEC PCR St Y.enterocolitica PCR Stool Vibrio (PCR) Stl Vibrio cholerae PCR Stl Norovirus GI/GII PCR Random Vancomycin Valproic Acid Carbamazepine Lamotrigine Clozapine Norclozapine Respiratory Panel Ashley Adenovirus (Rapid PCR) B.pert (TEM-PCR) B.parapertussis DNA PCR C. pneumoniae DNA (PCR) Coronavirus OC43 (PCR) Coronavirus HKU1 (PCR) Coronavirus 229E (PCR) Coronavirus NL63 (PCR) Hepatitis A IgM Ab Hep Bs Antigen Hepatitis C Ab (EIA) Human Metapneumovir PCR Influenza A (RT-PCR) Influenza Type A (PCR) Influenza B (RT-PCR) Influenza Type B (PCR) M. pneumoniae (PCR) Parainfluenza 1 (PCR) Parainfluenza 2 (PCR) Parainfluenza 3 (PCR) Parainfluenza 4 (PCR) RSV (PCR) RSV RNA Qual (PCR) Entero/Rhino (PCR) SARS-CoV-2 RNA (RT-PCR) Blood Type Antibody Screen 06/04/23 06/05/23 06/05/23 18:03 00:00 04:59 WBC 19.6 H RBC 3.22 L Hgb 9.9 L Hct 31.2 L MCV 96.9 MCH 30.7 MCHC 31.7 RDW 14.0 Plt Count 272 MPV 10.3 Immature Gran % (Auto) Cancelled Neut % (Auto) Cancelled Lymph % (Auto) Cancelled Yates % (Auto) Cancelled Eos % (Auto) Cancelled Baso % (Auto) Cancelled Lymph # (Auto) Cancelled Yates # (Auto) Cancelled Eos # (Auto) Cancelled Baso # (Auto) Cancelled Abs Immat Gran (auto) Cancelled Absolute Neuts (auto) Cancelled Absolute Nucleated RBC 0.000 Nucleated RBC % (auto) 0.0 Neutrophils % (Manual) 66 Band Neutrophils % 9 H Lymphocytes % (Manual) 13 L Atypical Lymphs % (Man) Monocytes % (Manual) 5 Eosinophils % (Manual) 2 Metamyelocytes % 4 Myelocytes % 1 Promyelocytes % Abs Neuts (Manual) 14.7 H Lymphocytes # (Manual) 2.5 Atyp Lymphs # (Manual) Monocytes # (Manual) 1.0 Eosinophils # (Manual) 0.4 Metamyelocytes # 0.8 Myelocytes # 0.2 Promyelocytes # Nucleated RBCs Smudge Cells Toxic Granulation PRESENT Toxic Vacuolation Platelet Estimate NORMAL Large Platelets Plt Morphology Comment NORMAL RBC Morphology NOTED Polychromasia 1+ (0-2) Hypochromasia Basophilic Stippling Spherocytes Tear Drop Cells Ovalocytes Rosa-[place]con[place] Bodies Jyoti Cells 1+ (0-2) Acanthocytes (Spur) 1+ (0-2) Schistocytes 1+ (0-2) PT INR aPTT Heparin Protocol D-Dimer High Sensitivty O2 Saturation ABG pH at Pt Temp ABG pCO2 at Pt Temp ABG pO2 at Pt Temp ABG HCO3 ABG Base Excess (Actual) VBG pH VBG pCO2 VBG pO2 VBG HCO3 VBG O2 Saturation VBG Base Excess Sodium 139 Potassium 3.8 Chloride 106 Carbon Dioxide 25 Anion Gap 12 BUN 28 H Creatinine 0.74 Estim Creat Clear Calc 96.1 Estimated GFR > 60 POC Glucose 174 H Random Glucose 188 H Lactic Acid Lactic Acid F/U @ 2Hr Calcium 8.3 L D Phosphorus Magnesium Total Bilirubin 0.6 Direct Bilirubin AST 38 H ALT 113 H Alkaline Phosphatase 92 Ammonia Troponin I High Sens B-Natriuretic Peptide Total Protein 6.1 L Albumin 2.9 L Lipase 25-OH Vitamin D Total Procalcitonin TSH Urine Color Urine Appearance Urine pH Ur Specific [place] Urine Protein Urine Glucose (UA) Urine Ketones Urine Blood Urine Nitrite Ur Leukocyte Esterase Urine RBC Urine WBC Ur Squamous Epith Cells Urine Bacteria Hyaline Casts Nasal Screen MRSA (PCR) Nasal S. aureus Screen Nasal MRSA/S.aureus Interp Stool Occult Blood Stl C. cayetanensis PCR Stool Rotavirus A PCR Stl Adenov F 40/41 PCR Stool Astrovirus (PCR) Stool Campylobacter PCR Stool Cryptosporidium PCR Stl Sh Tox Pr E STEC PCR Stool E coli O157 PCR Stl Enterotoxigenic E PCR Stool EPEC (PCR) Stool EAEC (PCR) Stl E. histolytica PCR Stool Giardia Lamblia PCR Stl P. shigelloides PCR Stool Salmonella PCR Stool Sapovirus (PCR) Stl Shigella/EIEC PCR St Y.enterocolitica PCR Stool Vibrio (PCR) Stl Vibrio cholerae PCR Stl Norovirus GI/GII PCR Random Vancomycin 13.1 L Valproic Acid Carbamazepine Lamotrigine Clozapine Norclozapine Respiratory Panel Ashley Adenovirus (Rapid PCR) B.pert (TEM-PCR) B.parapertussis DNA PCR C. pneumoniae DNA (PCR) Coronavirus OC43 (PCR) Coronavirus HKU1 (PCR) Coronavirus 229E (PCR) Coronavirus NL63 (PCR) Hepatitis A IgM Ab Hep Bs Antigen Hepatitis C Ab (EIA) Human Metapneumovir PCR Influenza A (RT-PCR) Influenza Type A (PCR) Influenza B (RT-PCR) Influenza Type B (PCR) M. pneumoniae (PCR) Parainfluenza 1 (PCR) Parainfluenza 2 (PCR) Parainfluenza 3 (PCR) Parainfluenza 4 (PCR) RSV (PCR) RSV RNA Qual (PCR) Entero/Rhino (PCR) SARS-CoV-2 RNA (RT-PCR) Blood Type Antibody Screen 06/05/23 06/05/23 06/05/23 05:01 11:09 17:40 WBC RBC Hgb Hct MCV MCH MCHC RDW Plt Count MPV Immature Gran % (Auto) Neut % (Auto) Lymph % (Auto) Yates % (Auto) Eos % (Auto) Baso % (Auto) Lymph # (Auto) Yates # (Auto) Eos # (Auto) Baso # (Auto) Abs Immat Gran (auto) Absolute Neuts (auto) Absolute Nucleated RBC Nucleated RBC % (auto) Neutrophils % (Manual) Band Neutrophils % Lymphocytes % (Manual) Atypical Lymphs % (Man) Monocytes % (Manual) Eosinophils % (Manual) Metamyelocytes % Myelocytes % Promyelocytes % Abs Neuts (Manual) Lymphocytes # (Manual) Atyp Lymphs # (Manual) Monocytes # (Manual) Eosinophils # (Manual) Metamyelocytes # Myelocytes # Promyelocytes # Nucleated RBCs Smudge Cells Toxic Granulation Toxic Vacuolation Platelet Estimate Large Platelets Plt Morphology Comment RBC Morphology Polychromasia Hypochromasia Basophilic Stippling Spherocytes Tear Drop Cells Ovalocytes Rosa-[place] Bodies Jyoti Cells Acanthocytes (Spur) Schistocytes PT INR aPTT Heparin Protocol D-Dimer High Sensitivty O2 Saturation ABG pH at Pt Temp ABG pCO2 at Pt Temp ABG pO2 at Pt Temp ABG HCO3 ABG Base Excess (Actual) VBG pH 7.46 H VBG pCO2 41 VBG pO2 45 VBG HCO3 29 H VBG O2 Saturation 77.0 VBG Base Excess 5.7 Sodium Potassium Chloride Carbon Dioxide Anion Gap BUN Creatinine Estim Creat Clear Calc Estimated GFR POC Glucose 229 H 252 H Random Glucose Lactic Acid Lactic Acid F/U @ 2Hr Calcium Phosphorus Magnesium Total Bilirubin Direct Bilirubin AST ALT Alkaline Phosphatase Ammonia Troponin I High Sens B-Natriuretic Peptide Total Protein Albumin Lipase 25-OH Vitamin D Total Procalcitonin TSH Urine Color Urine Appearance Urine pH Ur Specific [place] Urine Protein Urine Glucose (UA) Urine Ketones Urine Blood Urine Nitrite Ur Leukocyte Esterase Urine RBC Urine WBC Ur Squamous Epith Cells Urine Bacteria Hyaline Casts Nasal Screen MRSA (PCR) Nasal S. aureus Screen Nasal MRSA/S.aureus Interp Stool Occult Blood Stl C. cayetanensis PCR Stool Rotavirus A PCR Stl Adenov F 40/41 PCR Stool Astrovirus (PCR) Stool Campylobacter PCR Stool Cryptosporidium PCR Stl Sh Tox Pr E STEC PCR Stool E coli O157 PCR Stl Enterotoxigenic E PCR Stool EPEC (PCR) Stool EAEC (PCR) Stl E. histolytica PCR Stool Giardia Lamblia PCR Stl P. shigelloides PCR Stool Salmonella PCR Stool Sapovirus (PCR) Stl Shigella/EIEC PCR St Y.enterocolitica PCR Stool Vibrio (PCR) Stl Vibrio cholerae PCR Stl Norovirus GI/GII PCR Random Vancomycin Valproic Acid Carbamazepine Lamotrigine Clozapine Norclozapine Respiratory Panel Ashley Adenovirus (Rapid PCR) B.pert (TEM-PCR) B.parapertussis DNA PCR C. pneumoniae DNA (PCR) Coronavirus OC43 (PCR) Coronavirus HKU1 (PCR) Coronavirus 229E (PCR) Coronavirus NL63 (PCR) Hepatitis A IgM Ab Hep Bs Antigen Hepatitis C Ab (EIA) Human Metapneumovir PCR Influenza A (RT-PCR) Influenza Type A (PCR) Influenza B (RT-PCR) Influenza Type B (PCR) M. pneumoniae (PCR) Parainfluenza 1 (PCR) Parainfluenza 2 (PCR) Parainfluenza 3 (PCR) Parainfluenza 4 (PCR) RSV (PCR) RSV RNA Qual (PCR) Entero/Rhino (PCR) SARS-CoV-2 RNA (RT-PCR) Blood Type Antibody Screen 06/05/23 06/05/23 06/06/23 18:04 23:35 04:39 WBC 21.4 H RBC 3.11 L Hgb 9.6 L Hct 30.1 L MCV 96.8 MCH 30.9 MCHC 31.9 RDW 14.4 Plt Count 309 MPV 10.8 Immature Gran % (Auto) Cancelled Neut % (Auto) Cancelled Lymph % (Auto) Cancelled Yates % (Auto) Cancelled Eos % (Auto) Cancelled Baso % (Auto) Cancelled Lymph # (Auto) Cancelled Yates # (Auto) Cancelled Eos # (Auto) Cancelled Baso # (Auto) Cancelled Abs Immat Gran (auto) Cancelled Absolute Neuts (auto) Cancelled Absolute Nucleated RBC 0.030 H Nucleated RBC % (auto) 0.1 Neutrophils % (Manual) 66 Band Neutrophils % 9 H Lymphocytes % (Manual) 9 L Atypical Lymphs % (Man) 1 Monocytes % (Manual) 8 Eosinophils % (Manual) 2 Metamyelocytes % 3 Myelocytes % 2 Promyelocytes % Abs Neuts (Manual) 16.1 H Lymphocytes # (Manual) 1.9 Atyp Lymphs # (Manual) 0.2 Monocytes # (Manual) 1.7 H Eosinophils # (Manual) 0.4 Metamyelocytes # 0.6 Myelocytes # 0.4 Promyelocytes # Nucleated RBCs Smudge Cells Toxic Granulation PRESENT Toxic Vacuolation Platelet Estimate NORMAL Large Platelets PRESENT Plt Morphology Comment NOTED RBC Morphology NOTED Polychromasia 1+ (0-2) Hypochromasia Basophilic Stippling Spherocytes Tear Drop Cells Ovalocytes 1+ (5-14) Rosa-[place] Bodies [place] Cells 1+ (0-2) Acanthocytes (Spur) Schistocytes 1+ (0-2) PT INR aPTT Heparin Protocol D-Dimer High Sensitivty O2 Saturation ABG pH at Pt Temp ABG pCO2 at Pt Temp ABG pO2 at Pt Temp ABG HCO3 ABG Base Excess (Actual) VBG pH VBG pCO2 VBG pO2 VBG HCO3 VBG O2 Saturation VBG Base Excess Sodium 141 Potassium 3.4 Chloride 104 Carbon Dioxide 26 Anion Gap 14 BUN 24 H Creatinine 0.89 Estim Creat Clear Calc 79.8 Estimated GFR > 60 POC Glucose 172 H Random Glucose 174 H Lactic Acid Lactic Acid F/U @ 2Hr Calcium 8.3 L Phosphorus 2.3 L Magnesium 1.9 Total Bilirubin 0.6 Direct Bilirubin AST 27 ALT 73 H Alkaline Phosphatase 86 Ammonia Troponin I High Sens B-Natriuretic Peptide Total Protein 6.1 L Albumin 3.2 L Lipase 25-OH Vitamin D Total Procalcitonin TSH Urine Color Urine Appearance Urine pH Ur Specific [place] Urine Protein Urine Glucose (UA) Urine Ketones Urine Blood Urine Nitrite Ur Leukocyte Esterase Urine RBC Urine WBC Ur Squamous Epith Cells Urine Bacteria Hyaline Casts Nasal Screen MRSA (PCR) Nasal S. aureus Screen Nasal MRSA/S.aureus Interp Stool Occult Blood Stl C. cayetanensis PCR Stool Rotavirus A PCR Stl Adenov F 40/41 PCR Stool Astrovirus (PCR) Stool Campylobacter PCR Stool Cryptosporidium PCR Stl Sh Tox Pr E STEC PCR Stool E coli O157 PCR Stl Enterotoxigenic E PCR Stool EPEC (PCR) Stool EAEC (PCR) Stl E. histolytica PCR Stool Giardia Lamblia PCR Stl P. shigelloides PCR Stool Salmonella PCR Stool Sapovirus (PCR) Stl Shigella/EIEC PCR St Y.enterocolitica PCR Stool Vibrio (PCR) Stl Vibrio cholerae PCR Stl Norovirus GI/GII PCR Random Vancomycin 22.8 H Valproic Acid Carbamazepine Lamotrigine Clozapine Norclozapine Respiratory Panel Ashley Adenovirus (Rapid PCR) B.pert (TEM-PCR) B.parapertussis DNA PCR C. pneumoniae DNA (PCR) Coronavirus OC43 (PCR) Coronavirus HKU1 (PCR) Coronavirus 229E (PCR) Coronavirus NL63 (PCR) Hepatitis A IgM Ab Hep Bs Antigen Hepatitis C Ab (EIA) Human Metapneumovir PCR Influenza A (RT-PCR) Influenza Type A (PCR) Influenza B (RT-PCR) Influenza Type B (PCR) M. pneumoniae (PCR) Parainfluenza 1 (PCR) Parainfluenza 2 (PCR) Parainfluenza 3 (PCR) Parainfluenza 4 (PCR) RSV (PCR) RSV RNA Qual (PCR) Entero/Rhino (PCR) SARS-CoV-2 RNA (RT-PCR) Blood Type Antibody Screen 06/06/23 06/06/23 06/06/23 04:44 06:03 11:52 WBC RBC Hgb Hct MCV MCH MCHC RDW Plt Count MPV Immature Gran % (Auto) Neut % (Auto) Lymph % (Auto) Yates % (Auto) Eos % (Auto) Baso % (Auto) Lymph # (Auto) Yates # (Auto) Eos # (Auto) Baso # (Auto) Abs Immat Gran (auto) Absolute Neuts (auto) Absolute Nucleated RBC Nucleated RBC % (auto) Neutrophils % (Manual) Band Neutrophils % Lymphocytes % (Manual) Atypical Lymphs % (Man) Monocytes % (Manual) Eosinophils % (Manual) Metamyelocytes % Myelocytes % Promyelocytes % Abs Neuts (Manual) Lymphocytes # (Manual) Atyp Lymphs # (Manual) Monocytes # (Manual) Eosinophils # (Manual) Metamyelocytes # Myelocytes # Promyelocytes # Nucleated RBCs Smudge Cells Toxic Granulation Toxic Vacuolation Platelet Estimate Large Platelets Plt Morphology Comment RBC Morphology Polychromasia Hypochromasia Basophilic Stippling Spherocytes Tear Drop Cells Ovalocytes Rosa-[place] Bodies Jyoti Cells Acanthocytes (Spur) Schistocytes PT INR aPTT Heparin Protocol D-Dimer High Sensitivty O2 Saturation ABG pH at Pt Temp ABG pCO2 at Pt Temp ABG pO2 at Pt Temp ABG HCO3 ABG Base Excess (Actual) VBG pH 7.49 H VBG pCO2 39 VBG pO2 51 VBG HCO3 30 H VBG O2 Saturation 83.0 VBG Base Excess 6.7 Sodium Potassium Chloride Carbon Dioxide Anion Gap BUN Creatinine Estim Creat Clear Calc Estimated GFR POC Glucose 182 H Random Glucose Lactic Acid Lactic Acid F/U @ 2Hr Calcium Phosphorus Magnesium Total Bilirubin Direct Bilirubin AST ALT Alkaline Phosphatase Ammonia Troponin I High Sens B-Natriuretic Peptide Total Protein Albumin Lipase 25-OH Vitamin D Total Procalcitonin TSH Urine Color Urine Appearance Urine pH Ur Specific [place] Urine Protein Urine Glucose (UA) Urine Ketones Urine Blood Urine Nitrite Ur Leukocyte Esterase Urine RBC Urine WBC Ur Squamous Epith Cells Urine Bacteria Hyaline Casts Nasal Screen MRSA (PCR) Nasal S. aureus Screen Nasal MRSA/S.aureus Interp Stool Occult Blood Stl C. cayetanensis PCR Stool Rotavirus A PCR Stl Adenov F 40/41 PCR Stool Astrovirus (PCR) Stool Campylobacter PCR Stool Cryptosporidium PCR Stl Sh Tox Pr E STEC PCR Stool E coli O157 PCR Stl Enterotoxigenic E PCR Stool EPEC (PCR) Stool EAEC (PCR) Stl E. histolytica PCR Stool Giardia Lamblia PCR Stl P. shigelloides PCR Stool Salmonella PCR Stool Sapovirus (PCR) Stl Shigella/EIEC PCR St Y.enterocolitica PCR Stool Vibrio (PCR) Stl Vibrio cholerae PCR Stl Norovirus GI/GII PCR Random Vancomycin 15.7 Valproic Acid Carbamazepine Lamotrigine Clozapine Norclozapine Respiratory Panel Ashley Adenovirus (Rapid PCR) B.pert (TEM-PCR) B.parapertussis DNA PCR C. pneumoniae DNA (PCR) Coronavirus OC43 (PCR) Coronavirus HKU1 (PCR) Coronavirus 229E (PCR) Coronavirus NL63 (PCR) Hepatitis A IgM Ab Hep Bs Antigen Hepatitis C Ab (EIA) Human Metapneumovir PCR Influenza A (RT-PCR) Influenza Type A (PCR) Influenza B (RT-PCR) Influenza Type B (PCR) M. pneumoniae (PCR) Parainfluenza 1 (PCR) Parainfluenza 2 (PCR) Parainfluenza 3 (PCR) Parainfluenza 4 (PCR) RSV (PCR) RSV RNA Qual (PCR) Entero/Rhino (PCR) SARS-CoV-2 RNA (RT-PCR) Blood Type Antibody Screen 06/06/23 06/06/23 06/06/23 17:58 20:14 23:36 WBC RBC Hgb Hct MCV MCH MCHC RDW Plt Count MPV Immature Gran % (Auto) Neut % (Auto) Lymph % (Auto) Yates % (Auto) Eos % (Auto) Baso % (Auto) Lymph # (Auto) Yates # (Auto) Eos # (Auto) Baso # (Auto) Abs Immat Gran (auto) Absolute Neuts (auto) Absolute Nucleated RBC Nucleated RBC % (auto) Neutrophils % (Manual) Band Neutrophils % Lymphocytes % (Manual) Atypical Lymphs % (Man) Monocytes % (Manual) Eosinophils % (Manual) Metamyelocytes % Myelocytes % Promyelocytes % Abs Neuts (Manual) Lymphocytes # (Manual) Atyp Lymphs # (Manual) Monocytes # (Manual) Eosinophils # (Manual) Metamyelocytes # Myelocytes # Promyelocytes # Nucleated RBCs Smudge Cells Toxic Granulation Toxic Vacuolation Platelet Estimate Large Platelets Plt Morphology Comment RBC Morphology Polychromasia Hypochromasia Basophilic Stippling Spherocytes Tear Drop Cells Ovalocytes Rosa-[place] Bodies [place] Cells Acanthocytes (Spur) Schistocytes PT INR aPTT Heparin Protocol D-Dimer High Sensitivty O2 Saturation ABG pH at Pt Temp ABG pCO2 at Pt Temp ABG pO2 at Pt Temp ABG HCO3 ABG Base Excess (Actual) VBG pH 7.56 H VBG pCO2 27 VBG pO2 89 VBG HCO3 24 VBG O2 Saturation 99.0 VBG Base Excess 3.4 Sodium Potassium Chloride Carbon Dioxide Anion Gap BUN Creatinine Estim Creat Clear Calc Estimated GFR POC Glucose 157 H 171 H Random Glucose Lactic Acid Lactic Acid F/U @ 2Hr Calcium Phosphorus Magnesium Total Bilirubin Direct Bilirubin AST ALT Alkaline Phosphatase Ammonia Troponin I High Sens B-Natriuretic Peptide Total Protein Albumin Lipase 25-OH Vitamin D Total Procalcitonin TSH Urine Color Urine Appearance Urine pH Ur Specific [place] Urine Protein Urine Glucose (UA) Urine Ketones Urine Blood Urine Nitrite Ur Leukocyte Esterase Urine RBC Urine WBC Ur Squamous Epith Cells Urine Bacteria Hyaline Casts Nasal Screen MRSA (PCR) Nasal S. aureus Screen Nasal MRSA/S.aureus Interp Stool Occult Blood Stl C. cayetanensis PCR Stool Rotavirus A PCR Stl Adenov F 40/41 PCR Stool Astrovirus (PCR) Stool Campylobacter PCR Stool Cryptosporidium PCR Stl Sh Tox Pr E STEC PCR Stool E coli O157 PCR Stl Enterotoxigenic E PCR Stool EPEC (PCR) Stool EAEC (PCR) Stl E. histolytica PCR Stool Giardia Lamblia PCR Stl P. shigelloides PCR Stool Salmonella PCR Stool Sapovirus (PCR) Stl Shigella/EIEC PCR St Y.enterocolitica PCR Stool Vibrio (PCR) Stl Vibrio cholerae PCR Stl Norovirus GI/GII PCR Random Vancomycin Valproic Acid Carbamazepine Lamotrigine Clozapine Norclozapine Respiratory Panel Ashley Adenovirus (Rapid PCR) B.pert (TEM-PCR) B.parapertussis DNA PCR C. pneumoniae DNA (PCR) Coronavirus OC43 (PCR) Coronavirus HKU1 (PCR) Coronavirus 229E (PCR) Coronavirus NL63 (PCR) Hepatitis A IgM Ab Hep Bs Antigen Hepatitis C Ab (EIA) Human Metapneumovir PCR Influenza A (RT-PCR) Influenza Type A (PCR) Influenza B (RT-PCR) Influenza Type B (PCR) M. pneumoniae (PCR) Parainfluenza 1 (PCR) Parainfluenza 2 (PCR) Parainfluenza 3 (PCR) Parainfluenza 4 (PCR) RSV (PCR) RSV RNA Qual (PCR) Entero/Rhino (PCR) SARS-CoV-2 RNA (RT-PCR) Blood Type Antibody Screen 06/07/23 06/07/23 06/07/23 04:43 05:53 05:57 WBC 21.9 H RBC 2.80 L Hgb 8.6 L Hct 26.4 L MCV 94.3 MCH 30.7 MCHC 32.6 RDW 14.6 Plt Count 308 MPV 10.0 Immature Gran % (Auto) 3.1 H Neut % (Auto) 83.9 H Lymph % (Auto) 8.7 L Yates % (Auto) 3.4 Eos % (Auto) 0.6 Baso % (Auto) 0.3 Lymph # (Auto) 1.9 Yates # (Auto) 0.7 Eos # (Auto) 0.1 Baso # (Auto) 0.1 Abs Immat Gran (auto) 0.68 H Absolute Neuts (auto) 18.4 H Absolute Nucleated RBC 0.000 Nucleated RBC % (auto) 0.0 Neutrophils % (Manual) Band Neutrophils % Lymphocytes % (Manual) Atypical Lymphs % (Man) Monocytes % (Manual) Eosinophils % (Manual) Metamyelocytes % Myelocytes % Promyelocytes % Abs Neuts (Manual) Lymphocytes # (Manual) Atyp Lymphs # (Manual) Monocytes # (Manual) Eosinophils # (Manual) Metamyelocytes # Myelocytes # Promyelocytes # Nucleated RBCs Smudge Cells Toxic Granulation Toxic Vacuolation Platelet Estimate Large Platelets Plt Morphology Comment RBC Morphology Polychromasia Hypochromasia Basophilic Stippling Spherocytes Tear Drop Cells Ovalocytes Rosa-[place] Bodies [place] Cells Acanthocytes (Spur) Schistocytes PT INR aPTT Heparin Protocol D-Dimer High Sensitivty O2 Saturation ABG pH at Pt Temp ABG pCO2 at Pt Temp ABG pO2 at Pt Temp ABG HCO3 ABG Base Excess (Actual) VBG pH VBG pCO2 VBG pO2 VBG HCO3 VBG O2 Saturation VBG Base Excess Sodium 145 Potassium 3.2 L Chloride 108 Carbon Dioxide 28 Anion Gap 12 BUN 22 H Creatinine 0.85 0.78 Estim Creat Clear Calc 83.6 91.1 Estimated GFR > 60 > 60 POC Glucose 154 H Random Glucose 170 H Lactic Acid Lactic Acid F/U @ 2Hr Calcium 8.3 L Phosphorus Magnesium Total Bilirubin 0.8 Direct Bilirubin AST 35 H ALT 51 H Alkaline Phosphatase 79 Ammonia Troponin I High Sens B-Natriuretic Peptide Total Protein 6.3 L Albumin 3.4 L Lipase 25-OH Vitamin D Total Procalcitonin TSH Urine Color Urine Appearance Urine pH Ur Specific [place] Urine Protein Urine Glucose (UA) Urine Ketones Urine Blood Urine Nitrite Ur Leukocyte Esterase Urine RBC Urine WBC Ur Squamous Epith Cells Urine Bacteria Hyaline Casts Nasal Screen MRSA (PCR) Nasal S. aureus Screen Nasal MRSA/S.aureus Interp Stool Occult Blood Stl C. cayetanensis PCR Stool Rotavirus A PCR Stl Adenov F 40/41 PCR Stool Astrovirus (PCR) Stool Campylobacter PCR Stool Cryptosporidium PCR Stl Sh Tox Pr E STEC PCR Stool E coli O157 PCR Stl Enterotoxigenic E PCR Stool EPEC (PCR) Stool EAEC (PCR) Stl E. histolytica PCR Stool Giardia Lamblia PCR Stl P. shigelloides PCR Stool Salmonella PCR Stool Sapovirus (PCR) Stl Shigella/EIEC PCR St Y.enterocolitica PCR Stool Vibrio (PCR) Stl Vibrio cholerae PCR Stl Norovirus GI/GII PCR Random Vancomycin 15.8 Valproic Acid Carbamazepine Lamotrigine Clozapine Norclozapine Respiratory Panel Ashley Adenovirus (Rapid PCR) B.pert (TEM-PCR) B.parapertussis DNA PCR C. pneumoniae DNA (PCR) Coronavirus OC43 (PCR) Coronavirus HKU1 (PCR) Coronavirus 229E (PCR) Coronavirus NL63 (PCR) Hepatitis A IgM Ab Hep Bs Antigen Hepatitis C Ab (EIA) Human Metapneumovir PCR Influenza A (RT-PCR) Influenza Type A (PCR) Influenza B (RT-PCR) Influenza Type B (PCR) M. pneumoniae (PCR) Parainfluenza 1 (PCR) Parainfluenza 2 (PCR) Parainfluenza 3 (PCR) Parainfluenza 4 (PCR) RSV (PCR) RSV RNA Qual (PCR) Entero/Rhino (PCR) SARS-CoV-2 RNA (RT-PCR) Blood Type Antibody Screen 06/07/23 06/07/23 06/07/23 08:08 09:26 11:14 WBC RBC Hgb Hct MCV MCH MCHC RDW Plt Count MPV Immature Gran % (Auto) Neut % (Auto) Lymph % (Auto) Yates % (Auto) Eos % (Auto) Baso % (Auto) Lymph # (Auto) Yates # (Auto) Eos # (Auto) Baso # (Auto) Abs Immat Gran (auto) Absolute Neuts (auto) 16.0 H Absolute Nucleated RBC Nucleated RBC % (auto) Neutrophils % (Manual) Band Neutrophils % Lymphocytes % (Manual) Atypical Lymphs % (Man) Monocytes % (Manual) Eosinophils % (Manual) Metamyelocytes % Myelocytes % Promyelocytes % Abs Neuts (Manual) Lymphocytes # (Manual) Atyp Lymphs # (Manual) Monocytes # (Manual) Eosinophils # (Manual) Metamyelocytes # Myelocytes # Promyelocytes # Nucleated RBCs Smudge Cells Toxic Granulation Toxic Vacuolation Platelet Estimate Large Platelets Plt Morphology Comment RBC Morphology Polychromasia Hypochromasia Basophilic Stippling Spherocytes Tear Drop Cells Ovalocytes Rosa-[place] Bodies [place] Cells Acanthocytes (Spur) Schistocytes PT INR aPTT Heparin Protocol D-Dimer High Sensitivty O2 Saturation 95.0 ABG pH at Pt Temp 7.38 ABG pCO2 at Pt Temp 43 ABG pO2 at Pt Temp 83 ABG HCO3 25 ABG Base Excess (Actual) 0.7 VBG pH VBG pCO2 VBG pO2 VBG HCO3 VBG O2 Saturation VBG Base Excess Sodium Potassium Chloride Carbon Dioxide Anion Gap BUN Creatinine Estim Creat Clear Calc Estimated GFR POC Glucose 177 H Random Glucose Lactic Acid Lactic Acid F/U @ 2Hr Calcium Phosphorus Magnesium Total Bilirubin Direct Bilirubin AST ALT Alkaline Phosphatase Ammonia Troponin I High Sens B-Natriuretic Peptide Total Protein Albumin Lipase 25-OH Vitamin D Total Procalcitonin TSH Urine Color Urine Appearance Urine pH Ur Specific [place] Urine Protein Urine Glucose (UA) Urine Ketones Urine Blood Urine Nitrite Ur Leukocyte Esterase Urine RBC Urine WBC Ur Squamous Epith Cells Urine Bacteria Hyaline Casts Nasal Screen MRSA (PCR) Nasal S. aureus Screen Nasal MRSA/S.aureus Interp Stool Occult Blood Stl C. cayetanensis PCR Stool Rotavirus A PCR Stl Adenov F 40/ PCR Stool Astrovirus (PCR) Stool Campylobacter PCR Stool Cryptosporidium PCR Stl Sh Tox Pr E STEC PCR Stool E coli O157 PCR Stl Enterotoxigenic E PCR Stool EPEC (PCR) Stool EAEC (PCR) Stl E. histolytica PCR Stool Giardia Lamblia PCR Stl P. shigelloides PCR Stool Salmonella PCR Stool Sapovirus (PCR) Stl Shigella/EIEC PCR St Y.enterocolitica PCR Stool Vibrio (PCR) Stl Vibrio cholerae PCR Stl Norovirus GI/GII PCR Random Vancomycin Valproic Acid Carbamazepine Lamotrigine Clozapine Norclozapine Respiratory Panel Ashley Adenovirus (Rapid PCR) B.pert (TEM-PCR) B.parapertussis DNA PCR C. pneumoniae DNA (PCR) Coronavirus OC43 (PCR) Coronavirus HKU1 (PCR) Coronavirus 229E (PCR) Coronavirus NL63 (PCR) Hepatitis A IgM Ab Hep Bs Antigen Hepatitis C Ab (EIA) Human Metapneumovir PCR Influenza A (RT-PCR) Influenza Type A (PCR) Influenza B (RT-PCR) Influenza Type B (PCR) M. pneumoniae (PCR) Parainfluenza 1 (PCR) Parainfluenza 2 (PCR) Parainfluenza 3 (PCR) Parainfluenza 4 (PCR) RSV (PCR) RSV RNA Qual (PCR) Entero/Rhino (PCR) SARS-CoV-2 RNA (RT-PCR) Blood Type Antibody Screen 06/07/23 06/07/23 06/07/23 17:21 20:19 20:22 WBC RBC Hgb Hct MCV MCH MCHC RDW Plt Count MPV Immature Gran % (Auto) Neut % (Auto) Lymph % (Auto) Yates % (Auto) Eos % (Auto) Baso % (Auto) Lymph # (Auto) Yates # (Auto) Eos # (Auto) Baso # (Auto) Abs Immat Gran (auto) Absolute Neuts (auto) Absolute Nucleated RBC Nucleated RBC % (auto) Neutrophils % (Manual) Band Neutrophils % Lymphocytes % (Manual) Atypical Lymphs % (Man) Monocytes % (Manual) Eosinophils % (Manual) Metamyelocytes % Myelocytes % Promyelocytes % Abs Neuts (Manual) Lymphocytes # (Manual) Atyp Lymphs # (Manual) Monocytes # (Manual) Eosinophils # (Manual) Metamyelocytes # Myelocytes # Promyelocytes # Nucleated RBCs Smudge Cells Toxic Granulation Toxic Vacuolation Platelet Estimate Large Platelets Plt Morphology Comment RBC Morphology Polychromasia Hypochromasia Basophilic Stippling Spherocytes Tear Drop Cells Ovalocytes Rosa-[place] Bodies Jyoti Cells Acanthocytes (Spur) Schistocytes PT INR aPTT Heparin Protocol D-Dimer High Sensitivty O2 Saturation ABG pH at Pt Temp ABG pCO2 at Pt Temp ABG pO2 at Pt Temp ABG HCO3 ABG Base Excess (Actual) VBG pH 7.48 H VBG pCO2 37 VBG pO2 59 VBG HCO3 28 H VBG O2 Saturation 91.0 VBG Base Excess 4.8 Sodium 146 H Potassium 3.3 Chloride 110 H Carbon Dioxide 28 Anion Gap 11 L BUN 24 H Creatinine 0.72 Estim Creat Clear Calc 98.7 Estimated GFR > 60 POC Glucose 173 H Random Glucose 173 H Lactic Acid Lactic Acid F/U @ 2Hr Calcium 8.1 L Phosphorus Magnesium Total Bilirubin 0.6 Direct Bilirubin AST 29 ALT 45 H Alkaline Phosphatase 75 Ammonia Troponin I High Sens B-Natriuretic Peptide Total Protein 6.2 L Albumin 3.3 L Lipase 25-OH Vitamin D Total Procalcitonin TSH Urine Color Urine Appearance Urine pH Ur Specific [place] Urine Protein Urine Glucose (UA) Urine Ketones Urine Blood Urine Nitrite Ur Leukocyte Esterase Urine RBC Urine WBC Ur Squamous Epith Cells Urine Bacteria Hyaline Casts Nasal Screen MRSA (PCR) Nasal S. aureus Screen Nasal MRSA/S.aureus Interp Stool Occult Blood Stl C. cayetanensis PCR Stool Rotavirus A PCR Stl Adenov F 40/41 PCR Stool Astrovirus (PCR) Stool Campylobacter PCR Stool Cryptosporidium PCR Stl Sh Tox Pr E STEC PCR Stool E coli O157 PCR Stl Enterotoxigenic E PCR Stool EPEC (PCR) Stool EAEC (PCR) Stl E. histolytica PCR Stool Giardia Lamblia PCR Stl P. shigelloides PCR Stool Salmonella PCR Stool Sapovirus (PCR) Stl Shigella/EIEC PCR St Y.enterocolitica PCR Stool Vibrio (PCR) Stl Vibrio cholerae PCR Stl Norovirus GI/GII PCR Random Vancomycin Valproic Acid Carbamazepine Lamotrigine Clozapine Norclozapine Respiratory Panel Ashley Adenovirus (Rapid PCR) B.pert (TEM-PCR) B.parapertussis DNA PCR C. pneumoniae DNA (PCR) Coronavirus OC43 (PCR) Coronavirus HKU1 (PCR) Coronavirus 229E (PCR) Coronavirus NL63 (PCR) Hepatitis A IgM Ab Hep Bs Antigen Hepatitis C Ab (EIA) Human Metapneumovir PCR Influenza A (RT-PCR) Influenza Type A (PCR) Influenza B (RT-PCR) Influenza Type B (PCR) M. pneumoniae (PCR) Parainfluenza 1 (PCR) Parainfluenza 2 (PCR) Parainfluenza 3 (PCR) Parainfluenza 4 (PCR) RSV (PCR) RSV RNA Qual (PCR) Entero/Rhino (PCR) SARS-CoV-2 RNA (RT-PCR) Blood Type Antibody Screen 06/07/23 06/07/23 06/08/23 21:04 21:04 00:12 WBC 18.5 H RBC 2.72 L Hgb 8.2 L Hct 26.9 L MCV 98.9 H MCH 30.1 MCHC 30.5 L RDW 14.9 Plt Count 297 MPV 10.2 Immature Gran % (Auto) 2.8 H Neut % (Auto) 77.7 H Lymph % (Auto) 14.5 L Yates % (Auto) 4.2 Eos % (Auto) 0.4 Baso % (Auto) 0.4 Lymph # (Auto) 2.7 Yates # (Auto) 0.8 Eos # (Auto) 0.1 Baso # (Auto) 0.1 Abs Immat Gran (auto) 0.51 H Absolute Neuts (auto) 14.4 H Absolute Nucleated RBC 0.000 Nucleated RBC % (auto) 0.0 Neutrophils % (Manual) Band Neutrophils % Lymphocytes % (Manual) Atypical Lymphs % (Man) Monocytes % (Manual) Eosinophils % (Manual) Metamyelocytes % Myelocytes % Promyelocytes % Abs Neuts (Manual) Lymphocytes # (Manual) Atyp Lymphs # (Manual) Monocytes # (Manual) Eosinophils # (Manual) Metamyelocytes # Myelocytes # Promyelocytes # Nucleated RBCs Smudge Cells Toxic Granulation Toxic Vacuolation Platelet Estimate Large Platelets Plt Morphology Comment RBC Morphology Polychromasia Hypochromasia Basophilic Stippling Spherocytes Tear Drop Cells Ovalocytes Rosa-[place] Bodies [place] Cells Acanthocytes (Spur) Schistocytes PT INR aPTT Heparin Protocol D-Dimer High Sensitivty O2 Saturation ABG pH at Pt Temp ABG pCO2 at Pt Temp ABG pO2 at Pt Temp ABG HCO3 ABG Base Excess (Actual) VBG pH VBG pCO2 VBG pO2 VBG HCO3 VBG O2 Saturation VBG Base Excess Sodium 148 H Potassium 3.3 Chloride 109 H Carbon Dioxide 30 H Anion Gap 12 BUN 24 H Creatinine 0.74 Estim Creat Clear Calc 96.1 Estimated GFR > 60 POC Glucose 168 H Random Glucose 183 H Lactic Acid 1.2 Lactic Acid F/U @ 2Hr Calcium 8.2 L Phosphorus 2.9 Magnesium 2.1 Total Bilirubin 0.7 Direct Bilirubin AST 30 ALT 46 H Alkaline Phosphatase 76 Ammonia Troponin I High Sens 4.2 D B-Natriuretic Peptide 1062 H Total Protein 6.4 L Albumin 3.3 L Lipase 25-OH Vitamin D Total Procalcitonin TSH 1.95 Cancelled Urine Color Urine Appearance Urine pH Ur Specific [place] Urine Protein Urine Glucose (UA) Urine Ketones Urine Blood Urine Nitrite Ur Leukocyte Esterase Urine RBC Urine WBC Ur Squamous Epith Cells Urine Bacteria Hyaline Casts Nasal Screen MRSA (PCR) Nasal S. aureus Screen Nasal MRSA/S.aureus Interp Stool Occult Blood Stl C. cayetanensis PCR Stool Rotavirus A PCR Stl Adenov F 40/41 PCR Stool Astrovirus (PCR) Stool Campylobacter PCR Stool Cryptosporidium PCR Stl Sh Tox Pr E STEC PCR Stool E coli O157 PCR Stl Enterotoxigenic E PCR Stool EPEC (PCR) Stool EAEC (PCR) Stl E. histolytica PCR Stool Giardia Lamblia PCR Stl P. shigelloides PCR Stool Salmonella PCR Stool Sapovirus (PCR) Stl Shigella/EIEC PCR St Y.enterocolitica PCR Stool Vibrio (PCR) Stl Vibrio cholerae PCR Stl Norovirus GI/GII PCR Random Vancomycin Valproic Acid Carbamazepine Lamotrigine Clozapine Norclozapine Respiratory Panel Ashley Adenovirus (Rapid PCR) B.pert (TEM-PCR) B.parapertussis DNA PCR C. pneumoniae DNA (PCR) Coronavirus OC43 (PCR) Coronavirus HKU1 (PCR) Coronavirus 229E (PCR) Coronavirus NL63 (PCR) Hepatitis A IgM Ab Hep Bs Antigen Hepatitis C Ab (EIA) Human Metapneumovir PCR Influenza A (RT-PCR) Influenza Type A (PCR) Influenza B (RT-PCR) Influenza Type B (PCR) M. pneumoniae (PCR) Parainfluenza 1 (PCR) Parainfluenza 2 (PCR) Parainfluenza 3 (PCR) Parainfluenza 4 (PCR) RSV (PCR) RSV RNA Qual (PCR) Entero/Rhino (PCR) SARS-CoV-2 RNA (RT-PCR) Blood Type Antibody Screen 06/08/23 06/08/23 06/08/23 04:54 04:59 05:36 WBC 15.7 H RBC 2.56 L Hgb 7.9 L Hct 25.8 L MCV 100.8 H MCH 30.9 MCHC 30.6 L RDW 14.8 Plt Count 256 MPV 10.2 Immature Gran % (Auto) 2.2 H Neut % (Auto) 77.7 H Lymph % (Auto) 14.4 L Yates % (Auto) 4.4 Eos % (Auto) 1.0 Baso % (Auto) 0.3 Lymph # (Auto) 2.3 Yates # (Auto) 0.7 Eos # (Auto) 0.2 Baso # (Auto) 0.0 Abs Immat Gran (auto) 0.34 H Absolute Neuts (auto) 12.2 H Absolute Nucleated RBC 0.000 Nucleated RBC % (auto) 0.0 Neutrophils % (Manual) Band Neutrophils % Lymphocytes % (Manual) Atypical Lymphs % (Man) Monocytes % (Manual) Eosinophils % (Manual) Metamyelocytes % Myelocytes % Promyelocytes % Abs Neuts (Manual) Lymphocytes # (Manual) Atyp Lymphs # (Manual) Monocytes # (Manual) Eosinophils # (Manual) Metamyelocytes # Myelocytes # Promyelocytes # Nucleated RBCs Smudge Cells Toxic Granulation Toxic Vacuolation Platelet Estimate Large Platelets Plt Morphology Comment RBC Morphology Polychromasia Hypochromasia Basophilic Stippling Spherocytes Tear Drop Cells Ovalocytes Rosa-[place] Bodies Jyoti Cells Acanthocytes (Spur) Schistocytes PT INR aPTT Heparin Protocol D-Dimer High Sensitivty O2 Saturation ABG pH at Pt Temp ABG pCO2 at Pt Temp ABG pO2 at Pt Temp ABG HCO3 ABG Base Excess (Actual) VBG pH 7.32 VBG pCO2 54 VBG pO2 49 VBG HCO3 28 H VBG O2 Saturation 75.0 VBG Base Excess 1.7 Sodium 148 H Potassium 3.3 Chloride 109 H Carbon Dioxide 24 Anion Gap 18 BUN 30 H Creatinine 0.82 Estim Creat Clear Calc 86.7 Estimated GFR > 60 POC Glucose Random Glucose 174 H Lactic Acid Lactic Acid F/U @ 2Hr Calcium 8.4 Phosphorus Magnesium Total Bilirubin 0.9 Direct Bilirubin AST 28 ALT 40 H Alkaline Phosphatase 66 Ammonia Troponin I High Sens 3.0 B-Natriuretic Peptide Total Protein 7.0 Albumin 4.2 Lipase 25-OH Vitamin D Total Procalcitonin TSH Urine Color Urine Appearance Urine pH Ur Specific [place] Urine Protein Urine Glucose (UA) Urine Ketones Urine Blood Urine Nitrite Ur Leukocyte Esterase Urine RBC Urine WBC Ur Squamous Epith Cells Urine Bacteria Hyaline Casts Nasal Screen MRSA (PCR) Nasal S. aureus Screen Nasal MRSA/S.aureus Interp Stool Occult Blood Stl C. cayetanensis PCR Stool Rotavirus A PCR Stl Adenov F 40/41 PCR Stool Astrovirus (PCR) Stool Campylobacter PCR Stool Cryptosporidium PCR Stl Sh Tox Pr E STEC PCR Stool E coli O157 PCR Stl Enterotoxigenic E PCR Stool EPEC (PCR) Stool EAEC (PCR) Stl E. histolytica PCR Stool Giardia Lamblia PCR Stl P. shigelloides PCR Stool Salmonella PCR Stool Sapovirus (PCR) Stl Shigella/EIEC PCR St Y.enterocolitica PCR Stool Vibrio (PCR) Stl Vibrio cholerae PCR Stl Norovirus GI/GII PCR Random Vancomycin Valproic Acid Carbamazepine Lamotrigine Clozapine Norclozapine Respiratory Panel Ashley Adenovirus (Rapid PCR) B.pert (TEM-PCR) B.parapertussis DNA PCR C. pneumoniae DNA (PCR) Coronavirus OC43 (PCR) Coronavirus HKU1 (PCR) Coronavirus 229E (PCR) Coronavirus NL63 (PCR) Hepatitis A IgM Ab Hep Bs Antigen Hepatitis C Ab (EIA) Human Metapneumovir PCR Influenza A (RT-PCR) Influenza Type A (PCR) Influenza B (RT-PCR) Influenza Type B (PCR) M. pneumoniae (PCR) Parainfluenza 1 (PCR) Parainfluenza 2 (PCR) Parainfluenza 3 (PCR) Parainfluenza 4 (PCR) RSV (PCR) RSV RNA Qual (PCR) Entero/Rhino (PCR) SARS-CoV-2 RNA (RT-PCR) Blood Type Antibody Screen 06/08/23 06/08/23 06/08/23 08:22 08:23 08:26 WBC RBC Hgb Hct MCV MCH MCHC RDW Plt Count MPV Immature Gran % (Auto) Neut % (Auto) Lymph % (Auto) Yates % (Auto) Eos % (Auto) Baso % (Auto) Lymph # (Auto) Yates # (Auto) Eos # (Auto) Baso # (Auto) Abs Immat Gran (auto) Absolute Neuts (auto) Absolute Nucleated RBC Nucleated RBC % (auto) Neutrophils % (Manual) Band Neutrophils % Lymphocytes % (Manual) Atypical Lymphs % (Man) Monocytes % (Manual) Eosinophils % (Manual) Metamyelocytes % Myelocytes % Promyelocytes % Abs Neuts (Manual) Lymphocytes # (Manual) Atyp Lymphs # (Manual) Monocytes # (Manual) Eosinophils # (Manual) Metamyelocytes # Myelocytes # Promyelocytes # Nucleated RBCs Smudge Cells Toxic Granulation Toxic Vacuolation Platelet Estimate Large Platelets Plt Morphology Comment RBC Morphology Polychromasia Hypochromasia Basophilic Stippling Spherocytes Tear Drop Cells Ovalocytes Rosa-[place] Bodies [place] Cells Acanthocytes (Spur) Schistocytes PT INR aPTT Heparin Protocol D-Dimer High Sensitivty O2 Saturation ABG pH at Pt Temp ABG pCO2 at Pt Temp ABG pO2 at Pt Temp ABG HCO3 ABG Base Excess (Actual) VBG pH 7.28 L VBG pCO2 51 VBG pO2 101 VBG HCO3 24 VBG O2 Saturation Not Reportable VBG Base Excess -2.0 Sodium Potassium Chloride Carbon Dioxide Anion Gap BUN Creatinine Estim Creat Clear Calc Estimated GFR POC Glucose Random Glucose Lactic Acid Lactic Acid F/U @ 2Hr Calcium Phosphorus Magnesium Total Bilirubin Direct Bilirubin AST ALT Alkaline Phosphatase Ammonia Troponin I High Sens B-Natriuretic Peptide Total Protein Albumin Lipase 25-OH Vitamin D Total Procalcitonin TSH 0.54 Urine Color Urine Appearance Urine pH Ur Specific [place] Urine Protein Urine Glucose (UA) Urine Ketones Urine Blood Urine Nitrite Ur Leukocyte Esterase Urine RBC Urine WBC Ur Squamous Epith Cells Urine Bacteria Hyaline Casts Nasal Screen MRSA (PCR) Nasal S. aureus Screen Nasal MRSA/S.aureus Interp Stool Occult Blood Stl C. cayetanensis PCR Stool Rotavirus A PCR Stl Adenov F 40/41 PCR Stool Astrovirus (PCR) Stool Campylobacter PCR Stool Cryptosporidium PCR Stl Sh Tox Pr E STEC PCR Stool E coli O157 PCR Stl Enterotoxigenic E PCR Stool EPEC (PCR) Stool EAEC (PCR) Stl E. histolytica PCR Stool Giardia Lamblia PCR Stl P. shigelloides PCR Stool Salmonella PCR Stool Sapovirus (PCR) Stl Shigella/EIEC PCR St Y.enterocolitica PCR Stool Vibrio (PCR) Stl Vibrio cholerae PCR Stl Norovirus GI/GII PCR Random Vancomycin Valproic Acid 22.6 L Carbamazepine Lamotrigine 5.5 Clozapine 211 Norclozapine 67 Respiratory Panel Ashley Adenovirus (Rapid PCR) B.pert (TEM-PCR) B.parapertussis DNA PCR C. pneumoniae DNA (PCR) Coronavirus OC43 (PCR) Coronavirus HKU1 (PCR) Coronavirus 229E (PCR) Coronavirus NL63 (PCR) Hepatitis A IgM Ab Hep Bs Antigen Hepatitis C Ab (EIA) Human Metapneumovir PCR Influenza A (RT-PCR) Influenza Type A (PCR) Influenza B (RT-PCR) Influenza Type B (PCR) M. pneumoniae (PCR) Parainfluenza 1 (PCR) Parainfluenza 2 (PCR) Parainfluenza 3 (PCR) Parainfluenza 4 (PCR) RSV (PCR) RSV RNA Qual (PCR) Entero/Rhino (PCR) SARS-CoV-2 RNA (RT-PCR) Blood Type Antibody Screen 06/08/23 06/08/23 06/08/23 12:44 14:02 14:28 WBC 18.0 H RBC 2.43 L Hgb 7.5 L Hct 24.4 L MCV 100.4 H MCH 30.9 MCHC 30.7 L RDW 15.1 Plt Count 284 MPV 10.4 Immature Gran % (Auto) 3.3 H Neut % (Auto) 84.6 H Lymph % (Auto) 7.7 L Yates % (Auto) 4.1 Eos % (Auto) 0.1 Baso % (Auto) 0.2 Lymph # (Auto) 1.4 Yates # (Auto) 0.7 Eos # (Auto) 0.0 Baso # (Auto) 0.0 Abs Immat Gran (auto) 0.59 H Absolute Neuts (auto) 15.2 H Absolute Nucleated RBC 0.020 H Nucleated RBC % (auto) 0.1 Neutrophils % (Manual) Band Neutrophils % Lymphocytes % (Manual) Atypical Lymphs % (Man) Monocytes % (Manual) Eosinophils % (Manual) Metamyelocytes % Myelocytes % Promyelocytes % Abs Neuts (Manual) Lymphocytes # (Manual) Atyp Lymphs # (Manual) Monocytes # (Manual) Eosinophils # (Manual) Metamyelocytes # Myelocytes # Promyelocytes # Nucleated RBCs Smudge Cells Toxic Granulation Toxic Vacuolation Platelet Estimate Large Platelets Plt Morphology Comment RBC Morphology Polychromasia Hypochromasia Basophilic Stippling Spherocytes Tear Drop Cells Ovalocytes Rosa-[place] Bodies [place] Cells Acanthocytes (Spur) Schistocytes PT INR aPTT Heparin Protocol D-Dimer High Sensitivty O2 Saturation ABG pH at Pt Temp ABG pCO2 at Pt Temp ABG pO2 at Pt Temp ABG HCO3 ABG Base Excess (Actual) VBG pH 7.32 VBG pCO2 56 VBG pO2 58 VBG HCO3 29 H VBG O2 Saturation 84.0 VBG Base Excess 2.6 Sodium 150 H Potassium 3.8 Chloride 111 H Carbon Dioxide 27 Anion Gap 16 BUN 35 H Creatinine 1.01 Estim Creat Clear Calc 70.4 Estimated GFR 55 POC Glucose 226 H Random Glucose 228 H Lactic Acid Lactic Acid F/U @ 2Hr Calcium 9.1 D Phosphorus 2.9 Magnesium 2.2 Total Bilirubin 0.7 Direct Bilirubin AST 33 H ALT 42 H Alkaline Phosphatase 68 Ammonia Troponin I High Sens B-Natriuretic Peptide Total Protein 6.6 Albumin 3.8 Lipase 25-OH Vitamin D Total Procalcitonin TSH Urine Color Urine Appearance Urine pH Ur Specific [place] Urine Protein Urine Glucose (UA) Urine Ketones Urine Blood Urine Nitrite Ur Leukocyte Esterase Urine RBC Urine WBC Ur Squamous Epith Cells Urine Bacteria Hyaline Casts Nasal Screen MRSA (PCR) Nasal S. aureus Screen Nasal MRSA/S.aureus Interp Stool Occult Blood Stl C. cayetanensis PCR Stool Rotavirus A PCR Stl Adenov F 40/41 PCR Stool Astrovirus (PCR) Stool Campylobacter PCR Stool Cryptosporidium PCR Stl Sh Tox Pr E STEC PCR Stool E coli O157 PCR Stl Enterotoxigenic E PCR Stool EPEC (PCR) Stool EAEC (PCR) Stl E. histolytica PCR Stool Giardia Lamblia PCR Stl P. shigelloides PCR Stool Salmonella PCR Stool Sapovirus (PCR) Stl Shigella/EIEC PCR St Y.enterocolitica PCR Stool Vibrio (PCR) Stl Vibrio cholerae PCR Stl Norovirus GI/GII PCR Random Vancomycin Valproic Acid Carbamazepine Lamotrigine Clozapine Norclozapine Respiratory Panel Ashley Adenovirus (Rapid PCR) B.pert (TEM-PCR) B.parapertussis DNA PCR C. pneumoniae DNA (PCR) Coronavirus OC43 (PCR) Coronavirus HKU1 (PCR) Coronavirus 229E (PCR) Coronavirus NL63 (PCR) Hepatitis A IgM Ab Hep Bs Antigen Hepatitis C Ab (EIA) Human Metapneumovir PCR Influenza A (RT-PCR) Influenza Type A (PCR) Influenza B (RT-PCR) Influenza Type B (PCR) M. pneumoniae (PCR) Parainfluenza 1 (PCR) Parainfluenza 2 (PCR) Parainfluenza 3 (PCR) Parainfluenza 4 (PCR) RSV (PCR) RSV RNA Qual (PCR) Entero/Rhino (PCR) SARS-CoV-2 RNA (RT-PCR) Blood Type Antibody Screen 06/08/23 06/08/23 06/08/23 18:02 18:07 20:17 WBC RBC Hgb Hct MCV MCH MCHC RDW Plt Count MPV Immature Gran % (Auto) Neut % (Auto) Lymph % (Auto) Yates % (Auto) Eos % (Auto) Baso % (Auto) Lymph # (Auto) Yates # (Auto) Eos # (Auto) Baso # (Auto) Abs Immat Gran (auto) Absolute Neuts (auto) Absolute Nucleated RBC Nucleated RBC % (auto) Neutrophils % (Manual) Band Neutrophils % Lymphocytes % (Manual) Atypical Lymphs % (Man) Monocytes % (Manual) Eosinophils % (Manual) Metamyelocytes % Myelocytes % Promyelocytes % Abs Neuts (Manual) Lymphocytes # (Manual) Atyp Lymphs # (Manual) Monocytes # (Manual) Eosinophils # (Manual) Metamyelocytes # Myelocytes # Promyelocytes # Nucleated RBCs Smudge Cells Toxic Granulation Toxic Vacuolation Platelet Estimate Large Platelets Plt Morphology Comment RBC Morphology Polychromasia Hypochromasia Basophilic Stippling Spherocytes Tear Drop Cells Ovalocytes Rosa-[place] Bodies Jyoti Cells Acanthocytes (Spur) Schistocytes PT INR aPTT Heparin Protocol D-Dimer High Sensitivty O2 Saturation ABG pH at Pt Temp ABG pCO2 at Pt Temp ABG pO2 at Pt Temp ABG HCO3 ABG Base Excess (Actual) VBG pH 7.57 H VBG pCO2 31 VBG pO2 157 VBG HCO3 29 H VBG O2 Saturation 99.0 VBG Base Excess 7.0 Sodium Potassium Chloride Carbon Dioxide Anion Gap BUN Creatinine Estim Creat Clear Calc Estimated GFR POC Glucose 145 H Random Glucose Lactic Acid Lactic Acid F/U @ 2Hr Calcium Phosphorus Magnesium Total Bilirubin Direct Bilirubin AST ALT Alkaline Phosphatase Ammonia Troponin I High Sens B-Natriuretic Peptide Total Protein Albumin Lipase 25-OH Vitamin D Total Procalcitonin TSH Urine Color Urine Appearance Urine pH Ur Specific [place] Urine Protein Urine Glucose (UA) Urine Ketones Urine Blood Urine Nitrite Ur Leukocyte Esterase Urine RBC Urine WBC Ur Squamous Epith Cells Urine Bacteria Hyaline Casts Nasal Screen MRSA (PCR) Nasal S. aureus Screen Nasal MRSA/S.aureus Interp Stool Occult Blood Stl C. cayetanensis PCR Stool Rotavirus A PCR Stl Adenov F 40/41 PCR Stool Astrovirus (PCR) Stool Campylobacter PCR Stool Cryptosporidium PCR Stl Sh Tox Pr E STEC PCR Stool E coli O157 PCR Stl Enterotoxigenic E PCR Stool EPEC (PCR) Stool EAEC (PCR) Stl E. histolytica PCR Stool Giardia Lamblia PCR Stl P. shigelloides PCR Stool Salmonella PCR Stool Sapovirus (PCR) Stl Shigella/EIEC PCR St Y.enterocolitica PCR Stool Vibrio (PCR) Stl Vibrio cholerae PCR Stl Norovirus GI/GII PCR Random Vancomycin 21.7 H Valproic Acid Carbamazepine Lamotrigine Clozapine Norclozapine Respiratory Panel Ashley Adenovirus (Rapid PCR) B.pert (TEM-PCR) B.parapertussis DNA PCR C. pneumoniae DNA (PCR) Coronavirus OC43 (PCR) Coronavirus HKU1 (PCR) Coronavirus 229E (PCR) Coronavirus NL63 (PCR) Hepatitis A IgM Ab Hep Bs Antigen Hepatitis C Ab (EIA) Human Metapneumovir PCR Influenza A (RT-PCR) Influenza Type A (PCR) Influenza B (RT-PCR) Influenza Type B (PCR) M. pneumoniae (PCR) Parainfluenza 1 (PCR) Parainfluenza 2 (PCR) Parainfluenza 3 (PCR) Parainfluenza 4 (PCR) RSV (PCR) RSV RNA Qual (PCR) Entero/Rhino (PCR) SARS-CoV-2 RNA (RT-PCR) Blood Type Antibody Screen 06/09/23 06/09/23 06/09/23 00:03 05:10 05:11 WBC 13.2 H RBC 2.34 L Hgb 7.3 L Hct 23.1 L MCV 98.7 H MCH 31.2 MCHC 31.6 RDW 15.2 Plt Count 302 MPV 10.7 Immature Gran % (Auto) 1.7 H Neut % (Auto) 76.9 H Lymph % (Auto) 14.3 L Yates % (Auto) 4.8 Eos % (Auto) 2.0 Baso % (Auto) 0.3 Lymph # (Auto) 1.9 Yates # (Auto) 0.6 Eos # (Auto) 0.3 Baso # (Auto) 0.0 Abs Immat Gran (auto) 0.23 H Absolute Neuts (auto) 10.1 H Absolute Nucleated RBC 0.000 Nucleated RBC % (auto) 0.0 Neutrophils % (Manual) Band Neutrophils % Lymphocytes % (Manual) Atypical Lymphs % (Man) Monocytes % (Manual) Eosinophils % (Manual) Metamyelocytes % Myelocytes % Promyelocytes % Abs Neuts (Manual) Lymphocytes # (Manual) Atyp Lymphs # (Manual) Monocytes # (Manual) Eosinophils # (Manual) Metamyelocytes # Myelocytes # Promyelocytes # Nucleated RBCs Smudge Cells Toxic Granulation Toxic Vacuolation Platelet Estimate Large Platelets Plt Morphology Comment RBC Morphology Polychromasia Hypochromasia Basophilic Stippling Spherocytes Tear Drop Cells Ovalocytes Rosa-[place] Bodies Jyoti Cells Acanthocytes (Spur) Schistocytes PT INR aPTT Heparin Protocol D-Dimer High Sensitivty O2 Saturation ABG pH at Pt Temp ABG pCO2 at Pt Temp ABG pO2 at Pt Temp ABG HCO3 ABG Base Excess (Actual) VBG pH 7.53 H VBG pCO2 41 VBG pO2 43 VBG HCO3 35 H VBG O2 Saturation 76.0 VBG Base Excess 12.0 Sodium 153 H Potassium 3.1 L Chloride 111 H Carbon Dioxide 27 Anion Gap 18 BUN 30 H Creatinine 0.86 Estim Creat Clear Calc 86.7 Estimated GFR > 60 POC Glucose 139 H Random Glucose 156 H Lactic Acid Lactic Acid F/U @ 2Hr Calcium 9.0 Phosphorus 1.8 L Magnesium 2.1 Total Bilirubin Direct Bilirubin AST ALT Alkaline Phosphatase Ammonia Troponin I High Sens B-Natriuretic Peptide Total Protein Albumin 3.4 L Lipase 25-OH Vitamin D Total Procalcitonin TSH Urine Color Urine Appearance Urine pH Ur Specific [place] Urine Protein Urine Glucose (UA) Urine Ketones Urine Blood Urine Nitrite Ur Leukocyte Esterase Urine RBC Urine WBC Ur Squamous Epith Cells Urine Bacteria Hyaline Casts Nasal Screen MRSA (PCR) Nasal S. aureus Screen Nasal MRSA/S.aureus Interp Stool Occult Blood Stl C. cayetanensis PCR Stool Rotavirus A PCR Stl Adenov F 40/41 PCR Stool Astrovirus (PCR) Stool Campylobacter PCR Stool Cryptosporidium PCR Stl Sh Tox Pr E STEC PCR Stool E coli O157 PCR Stl Enterotoxigenic E PCR Stool EPEC (PCR) Stool EAEC (PCR) Stl E. histolytica PCR Stool Giardia Lamblia PCR Stl P. shigelloides PCR Stool Salmonella PCR Stool Sapovirus (PCR) Stl Shigella/EIEC PCR St Y.enterocolitica PCR Stool Vibrio (PCR) Stl Vibrio cholerae PCR Stl Norovirus GI/GII PCR Random Vancomycin Valproic Acid Carbamazepine Lamotrigine Clozapine Norclozapine Respiratory Panel Ashley Adenovirus (Rapid PCR) B.pert (TEM-PCR) B.parapertussis DNA PCR C. pneumoniae DNA (PCR) Coronavirus OC43 (PCR) Coronavirus HKU1 (PCR) Coronavirus 229E (PCR) Coronavirus NL63 (PCR) Hepatitis A IgM Ab Hep Bs Antigen Hepatitis C Ab (EIA) Human Metapneumovir PCR Influenza A (RT-PCR) Influenza Type A (PCR) Influenza B (RT-PCR) Influenza Type B (PCR) M. pneumoniae (PCR) Parainfluenza 1 (PCR) Parainfluenza 2 (PCR) Parainfluenza 3 (PCR) Parainfluenza 4 (PCR) RSV (PCR) RSV RNA Qual (PCR) Entero/Rhino (PCR) SARS-CoV-2 RNA (RT-PCR) Blood Type Antibody Screen 06/09/23 06/09/23 06/09/23 11:48 17:39 17:58 WBC RBC Hgb Hct MCV MCH MCHC RDW Plt Count MPV Immature Gran % (Auto) Neut % (Auto) Lymph % (Auto) Yates % (Auto) Eos % (Auto) Baso % (Auto) Lymph # (Auto) Yates # (Auto) Eos # (Auto) Baso # (Auto) Abs Immat Gran (auto) Absolute Neuts (auto) Absolute Nucleated RBC Nucleated RBC % (auto) Neutrophils % (Manual) Band Neutrophils % Lymphocytes % (Manual) Atypical Lymphs % (Man) Monocytes % (Manual) Eosinophils % (Manual) Metamyelocytes % Myelocytes % Promyelocytes % Abs Neuts (Manual) Lymphocytes # (Manual) Atyp Lymphs # (Manual) Monocytes # (Manual) Eosinophils # (Manual) Metamyelocytes # Myelocytes # Promyelocytes # Nucleated RBCs Smudge Cells Toxic Granulation Toxic Vacuolation Platelet Estimate Large Platelets Plt Morphology Comment RBC Morphology Polychromasia Hypochromasia Basophilic Stippling Spherocytes Tear Drop Cells Ovalocytes Rosa-[place] Bodies Jyoti Cells Acanthocytes (Spur) Schistocytes PT INR aPTT Heparin Protocol D-Dimer High Sensitivty O2 Saturation ABG pH at Pt Temp ABG pCO2 at Pt Temp ABG pO2 at Pt Temp ABG HCO3 ABG Base Excess (Actual) VBG pH VBG pCO2 VBG pO2 VBG HCO3 VBG O2 Saturation VBG Base Excess Sodium 154 H Potassium 2.9 L* Chloride 108 Carbon Dioxide 31 H Anion Gap 18 BUN 27 H Creatinine 0.95 Estim Creat Clear Calc 78.5 Estimated GFR 59 POC Glucose 140 H 175 H Random Glucose 205 H Lactic Acid Lactic Acid F/U @ 2Hr Calcium 9.1 Phosphorus 2.4 L Magnesium 1.7 Total Bilirubin Direct Bilirubin AST ALT Alkaline Phosphatase Ammonia Troponin I High Sens B-Natriuretic Peptide Total Protein Albumin Lipase 25-OH Vitamin D Total Procalcitonin TSH Urine Color Urine Appearance Urine pH Ur Specific [place] Urine Protein Urine Glucose (UA) Urine Ketones Urine Blood Urine Nitrite Ur Leukocyte Esterase Urine RBC Urine WBC Ur Squamous Epith Cells Urine Bacteria Hyaline Casts Nasal Screen MRSA (PCR) Nasal S. aureus Screen Nasal MRSA/S.aureus Interp Stool Occult Blood Stl C. cayetanensis PCR Stool Rotavirus A PCR Stl Adenov F 40/41 PCR Stool Astrovirus (PCR) Stool Campylobacter PCR Stool Cryptosporidium PCR Stl Sh Tox Pr E STEC PCR Stool E coli O157 PCR Stl Enterotoxigenic E PCR Stool EPEC (PCR) Stool EAEC (PCR) Stl E. histolytica PCR Stool Giardia Lamblia PCR Stl P. shigelloides PCR Stool Salmonella PCR Stool Sapovirus (PCR) Stl Shigella/EIEC PCR St Y.enterocolitica PCR Stool Vibrio (PCR) Stl Vibrio cholerae PCR Stl Norovirus GI/GII PCR Random Vancomycin Valproic Acid Carbamazepine Lamotrigine Clozapine Norclozapine Respiratory Panel Ashley Adenovirus (Rapid PCR) B.pert (TEM-PCR) B.parapertussis DNA PCR C. pneumoniae DNA (PCR) Coronavirus OC43 (PCR) Coronavirus HKU1 (PCR) Coronavirus 229E (PCR) Coronavirus NL63 (PCR) Hepatitis A IgM Ab Hep Bs Antigen Hepatitis C Ab (EIA) Human Metapneumovir PCR Influenza A (RT-PCR) Influenza Type A (PCR) Influenza B (RT-PCR) Influenza Type B (PCR) M. pneumoniae (PCR) Parainfluenza 1 (PCR) Parainfluenza 2 (PCR) Parainfluenza 3 (PCR) Parainfluenza 4 (PCR) RSV (PCR) RSV RNA Qual (PCR) Entero/Rhino (PCR) SARS-CoV-2 RNA (RT-PCR) Blood Type Antibody Screen 06/09/23 06/09/23 06/09/23 18:06 21:07 23:36 WBC RBC Hgb Hct MCV MCH MCHC RDW Plt Count MPV Immature Gran % (Auto) Neut % (Auto) Lymph % (Auto) Yates % (Auto) Eos % (Auto) Baso % (Auto) Lymph # (Auto) Yates # (Auto) Eos # (Auto) Baso # (Auto) Abs Immat Gran (auto) Absolute Neuts (auto) Absolute Nucleated RBC Nucleated RBC % (auto) Neutrophils % (Manual) Band Neutrophils % Lymphocytes % (Manual) Atypical Lymphs % (Man) Monocytes % (Manual) Eosinophils % (Manual) Metamyelocytes % Myelocytes % Promyelocytes % Abs Neuts (Manual) Lymphocytes # (Manual) Atyp Lymphs # (Manual) Monocytes # (Manual) Eosinophils # (Manual) Metamyelocytes # Myelocytes # Promyelocytes # Nucleated RBCs Smudge Cells Toxic Granulation Toxic Vacuolation Platelet Estimate Large Platelets Plt Morphology Comment RBC Morphology Polychromasia Hypochromasia Basophilic Stippling Spherocytes Tear Drop Cells Ovalocytes Rosa-[place] Bodies [place] Cells Acanthocytes (Spur) Schistocytes PT INR aPTT Heparin Protocol D-Dimer High Sensitivty O2 Saturation ABG pH at Pt Temp ABG pCO2 at Pt Temp ABG pO2 at Pt Temp ABG HCO3 ABG Base Excess (Actual) VBG pH 7.52 H VBG pCO2 43 VBG pO2 107 VBG HCO3 36 H VBG O2 Saturation TNP VBG Base Excess 12.4 Sodium Potassium Chloride Carbon Dioxide Anion Gap BUN Creatinine Estim Creat Clear Calc Estimated GFR POC Glucose 183 H Random Glucose Lactic Acid Lactic Acid F/U @ 2Hr Calcium Phosphorus Magnesium Total Bilirubin Direct Bilirubin AST ALT Alkaline Phosphatase Ammonia Troponin I High Sens B-Natriuretic Peptide Total Protein Albumin Lipase 25-OH Vitamin D Total Procalcitonin TSH Urine Color Urine Appearance Urine pH Ur Specific [place] Urine Protein Urine Glucose (UA) Urine Ketones Urine Blood Urine Nitrite Ur Leukocyte Esterase Urine RBC Urine WBC Ur Squamous Epith Cells Urine Bacteria Hyaline Casts Nasal Screen MRSA (PCR) Nasal S. aureus Screen Nasal MRSA/S.aureus Interp Stool Occult Blood Stl C. cayetanensis PCR Stool Rotavirus A PCR Stl Adenov F 40/41 PCR Stool Astrovirus (PCR) Stool Campylobacter PCR Stool Cryptosporidium PCR Stl Sh Tox Pr E STEC PCR Stool E coli O157 PCR Stl Enterotoxigenic E PCR Stool EPEC (PCR) Stool EAEC (PCR) Stl E. histolytica PCR Stool Giardia Lamblia PCR Stl P. shigelloides PCR Stool Salmonella PCR Stool Sapovirus (PCR) Stl Shigella/EIEC PCR St Y.enterocolitica PCR Stool Vibrio (PCR) Stl Vibrio cholerae PCR Stl Norovirus GI/GII PCR Random Vancomycin 17.2 Valproic Acid Carbamazepine Lamotrigine Clozapine Norclozapine Respiratory Panel Ashley Adenovirus (Rapid PCR) B.pert (TEM-PCR) B.parapertussis DNA PCR C. pneumoniae DNA (PCR) Coronavirus OC43 (PCR) Coronavirus HKU1 (PCR) Coronavirus 229E (PCR) Coronavirus NL63 (PCR) Hepatitis A IgM Ab Hep Bs Antigen Hepatitis C Ab (EIA) Human Metapneumovir PCR Influenza A (RT-PCR) Influenza Type A (PCR) Influenza B (RT-PCR) Influenza Type B (PCR) M. pneumoniae (PCR) Parainfluenza 1 (PCR) Parainfluenza 2 (PCR) Parainfluenza 3 (PCR) Parainfluenza 4 (PCR) RSV (PCR) RSV RNA Qual (PCR) Entero/Rhino (PCR) SARS-CoV-2 RNA (RT-PCR) Blood Type Antibody Screen 06/10/23 06/10/23 06/10/23 06:06 06:07 09:38 WBC 9.7 11.5 H RBC 2.70 L 2.86 L Hgb 8.2 L 8.8 L Hct 26.2 L 27.5 L MCV 97.0 96.2 MCH 30.4 30.8 MCHC 31.3 32.0 RDW 14.8 14.8 Plt Count 317 341 MPV 10.3 10.1 Immature Gran % (Auto) 1.3 H Neut % (Auto) 74.0 H Lymph % (Auto) 18.3 L Yates % (Auto) 4.4 Eos % (Auto) 1.5 Baso % (Auto) 0.5 Lymph # (Auto) 1.8 Yates # (Auto) 0.4 Eos # (Auto) 0.2 Baso # (Auto) 0.1 Abs Immat Gran (auto) 0.13 H Absolute Neuts (auto) 7.2 Absolute Nucleated RBC 0.000 0.020 H Nucleated RBC % (auto) 0.0 0.2 Neutrophils % (Manual) Band Neutrophils % Lymphocytes % (Manual) Atypical Lymphs % (Man) Monocytes % (Manual) Eosinophils % (Manual) Metamyelocytes % Myelocytes % Promyelocytes % Abs Neuts (Manual) Lymphocytes # (Manual) Atyp Lymphs # (Manual) Monocytes # (Manual) Eosinophils # (Manual) Metamyelocytes # Myelocytes # Promyelocytes # Nucleated RBCs Smudge Cells Toxic Granulation Toxic Vacuolation Platelet Estimate Large Platelets Plt Morphology Comment RBC Morphology Polychromasia Hypochromasia Basophilic Stippling Spherocytes Tear Drop Cells Ovalocytes Rosa-[place] Bodies [place] Cells Acanthocytes (Spur) Schistocytes PT 14.0 H INR 1.2 H aPTT Heparin Protocol 27.9 L D-Dimer High Sensitivty O2 Saturation ABG pH at Pt Temp ABG pCO2 at Pt Temp ABG pO2 at Pt Temp ABG HCO3 ABG Base Excess (Actual) VBG pH 7.63 H* VBG pCO2 37 VBG pO2 150 VBG HCO3 39 H VBG O2 Saturation 99.0 VBG Base Excess 17.2 Sodium 152 H Potassium 3.1 L Chloride 107 Carbon Dioxide 31 H Anion Gap 17 BUN 20 H Creatinine 0.78 Estim Creat Clear Calc 94.0 Estimated GFR > 60 POC Glucose Random Glucose 192 H Lactic Acid Lactic Acid F/U @ 2Hr Calcium 9.0 Phosphorus 2.9 Magnesium 1.6 Total Bilirubin Direct Bilirubin AST ALT Alkaline Phosphatase Ammonia Troponin I High Sens B-Natriuretic Peptide Total Protein Albumin Lipase 25-OH Vitamin D Total Procalcitonin TSH Urine Color Urine Appearance Urine pH Ur Specific [place] Urine Protein Urine Glucose (UA) Urine Ketones Urine Blood Urine Nitrite Ur Leukocyte Esterase Urine RBC Urine WBC Ur Squamous Epith Cells Urine Bacteria Hyaline Casts Nasal Screen MRSA (PCR) Nasal S. aureus Screen Nasal MRSA/S.aureus Interp Stool Occult Blood Stl C. cayetanensis PCR Stool Rotavirus A PCR Stl Adenov F 40/41 PCR Stool Astrovirus (PCR) Stool Campylobacter PCR Stool Cryptosporidium PCR Stl Sh Tox Pr E STEC PCR Stool E coli O157 PCR Stl Enterotoxigenic E PCR Stool EPEC (PCR) Stool EAEC (PCR) Stl E. histolytica PCR Stool Giardia Lamblia PCR Stl P. shigelloides PCR Stool Salmonella PCR Stool Sapovirus (PCR) Stl Shigella/EIEC PCR St Y.enterocolitica PCR Stool Vibrio (PCR) Stl Vibrio cholerae PCR Stl Norovirus GI/GII PCR Random Vancomycin Valproic Acid Carbamazepine Lamotrigine Clozapine Norclozapine Respiratory Panel Ashley Adenovirus (Rapid PCR) B.pert (TEM-PCR) B.parapertussis DNA PCR C. pneumoniae DNA (PCR) Coronavirus OC43 (PCR) Coronavirus HKU1 (PCR) Coronavirus 229E (PCR) Coronavirus NL63 (PCR) Hepatitis A IgM Ab Hep Bs Antigen Hepatitis C Ab (EIA) Human Metapneumovir PCR Influenza A (RT-PCR) Influenza Type A (PCR) Influenza B (RT-PCR) Influenza Type B (PCR) M. pneumoniae (PCR) Parainfluenza 1 (PCR) Parainfluenza 2 (PCR) Parainfluenza 3 (PCR) Parainfluenza 4 (PCR) RSV (PCR) RSV RNA Qual (PCR) Entero/Rhino (PCR) SARS-CoV-2 RNA (RT-PCR) Blood Type Antibody Screen 06/10/23 06/10/23 06/10/23 12:11 16:05 18:06 WBC RBC Hgb Hct MCV MCH MCHC RDW Plt Count MPV Immature Gran % (Auto) Neut % (Auto) Lymph % (Auto) Yates % (Auto) Eos % (Auto) Baso % (Auto) Lymph # (Auto) Yates # (Auto) Eos # (Auto) Baso # (Auto) Abs Immat Gran (auto) Absolute Neuts (auto) Absolute Nucleated RBC Nucleated RBC % (auto) Neutrophils % (Manual) Band Neutrophils % Lymphocytes % (Manual) Atypical Lymphs % (Man) Monocytes % (Manual) Eosinophils % (Manual) Metamyelocytes % Myelocytes % Promyelocytes % Abs Neuts (Manual) Lymphocytes # (Manual) Atyp Lymphs # (Manual) Monocytes # (Manual) Eosinophils # (Manual) Metamyelocytes # Myelocytes # Promyelocytes # Nucleated RBCs Smudge Cells Toxic Granulation Toxic Vacuolation Platelet Estimate Large Platelets Plt Morphology Comment RBC Morphology Polychromasia Hypochromasia Basophilic Stippling Spherocytes Tear Drop Cells Ovalocytes Rosa-[place] Bodies Jyoti Cells Acanthocytes (Spur) Schistocytes PT INR aPTT Heparin Protocol 33.0 L D-Dimer High Sensitivty O2 Saturation ABG pH at Pt Temp ABG pCO2 at Pt Temp ABG pO2 at Pt Temp ABG HCO3 ABG Base Excess (Actual) VBG pH VBG pCO2 VBG pO2 VBG HCO3 VBG O2 Saturation VBG Base Excess Sodium 153 H Potassium 3.1 L Chloride 104 Carbon Dioxide 35 H Anion Gap 17 BUN 20 H Creatinine 0.87 Estim Creat Clear Calc 84.2 Estimated GFR > 60 POC Glucose 214 H Random Glucose 189 H Lactic Acid Lactic Acid F/U @ 2Hr Calcium 8.5 Phosphorus 2.8 Magnesium 1.5 L Total Bilirubin Direct Bilirubin AST ALT Alkaline Phosphatase Ammonia Troponin I High Sens B-Natriuretic Peptide Total Protein Albumin Lipase 25-OH Vitamin D Total Procalcitonin TSH Urine Color Urine Appearance Urine pH Ur Specific [place] Urine Protein Urine Glucose (UA) Urine Ketones Urine Blood Urine Nitrite Ur Leukocyte Esterase Urine RBC Urine WBC Ur Squamous Epith Cells Urine Bacteria Hyaline Casts Nasal Screen MRSA (PCR) Nasal S. aureus Screen Nasal MRSA/S.aureus Interp Stool Occult Blood Stl C. cayetanensis PCR Stool Rotavirus A PCR Stl Adenov F 40/41 PCR Stool Astrovirus (PCR) Stool Campylobacter PCR Stool Cryptosporidium PCR Stl Sh Tox Pr E STEC PCR Stool E coli O157 PCR Stl Enterotoxigenic E PCR Stool EPEC (PCR) Stool EAEC (PCR) Stl E. histolytica PCR Stool Giardia Lamblia PCR Stl P. shigelloides PCR Stool Salmonella PCR Stool Sapovirus (PCR) Stl Shigella/EIEC PCR St Y.enterocolitica PCR Stool Vibrio (PCR) Stl Vibrio cholerae PCR Stl Norovirus GI/GII PCR Random Vancomycin Valproic Acid Carbamazepine Lamotrigine Clozapine Norclozapine Respiratory Panel Ashley Adenovirus (Rapid PCR) B.pert (TEM-PCR) B.parapertussis DNA PCR C. pneumoniae DNA (PCR) Coronavirus OC43 (PCR) Coronavirus HKU1 (PCR) Coronavirus 229E (PCR) Coronavirus NL63 (PCR) Hepatitis A IgM Ab Hep Bs Antigen Hepatitis C Ab (EIA) Human Metapneumovir PCR Influenza A (RT-PCR) Influenza Type A (PCR) Influenza B (RT-PCR) Influenza Type B (PCR) M. pneumoniae (PCR) Parainfluenza 1 (PCR) Parainfluenza 2 (PCR) Parainfluenza 3 (PCR) Parainfluenza 4 (PCR) RSV (PCR) RSV RNA Qual (PCR) Entero/Rhino (PCR) SARS-CoV-2 RNA (RT-PCR) Blood Type Antibody Screen 06/10/23 06/10/23 06/10/23 18:18 21:00 21:41 WBC RBC Hgb Hct MCV MCH MCHC RDW Plt Count MPV Immature Gran % (Auto) Neut % (Auto) Lymph % (Auto) Yates % (Auto) Eos % (Auto) Baso % (Auto) Lymph # (Auto) Yates # (Auto) Eos # (Auto) Baso # (Auto) Abs Immat Gran (auto) Absolute Neuts (auto) Absolute Nucleated RBC Nucleated RBC % (auto) Neutrophils % (Manual) Band Neutrophils % Lymphocytes % (Manual) Atypical Lymphs % (Man) Monocytes % (Manual) Eosinophils % (Manual) Metamyelocytes % Myelocytes % Promyelocytes % Abs Neuts (Manual) Lymphocytes # (Manual) Atyp Lymphs # (Manual) Monocytes # (Manual) Eosinophils # (Manual) Metamyelocytes # Myelocytes # Promyelocytes # Nucleated RBCs Smudge Cells Toxic Granulation Toxic Vacuolation Platelet Estimate Large Platelets Plt Morphology Comment RBC Morphology Polychromasia Hypochromasia Basophilic Stippling Spherocytes Tear Drop Cells Ovalocytes Rosa-[place] Bodies Jyoti Cells Acanthocytes (Spur) Schistocytes PT INR aPTT Heparin Protocol D-Dimer High Sensitivty O2 Saturation ABG pH at Pt Temp ABG pCO2 at Pt Temp ABG pO2 at Pt Temp ABG HCO3 ABG Base Excess (Actual) VBG pH 7.58 H VBG pCO2 47 VBG pO2 109 VBG HCO3 44 H VBG O2 Saturation 100.0 VBG Base Excess 20.9 Sodium Potassium Chloride Carbon Dioxide Anion Gap BUN Creatinine Estim Creat Clear Calc Estimated GFR POC Glucose 192 H Random Glucose Lactic Acid Lactic Acid F/U @ 2Hr Calcium Phosphorus Magnesium Total Bilirubin Direct Bilirubin AST ALT Alkaline Phosphatase Ammonia Troponin I High Sens B-Natriuretic Peptide Total Protein Albumin Lipase 25-OH Vitamin D Total Procalcitonin TSH Urine Color Urine Appearance Urine pH Ur Specific [place] Urine Protein Urine Glucose (UA) Urine Ketones Urine Blood Urine Nitrite Ur Leukocyte Esterase Urine RBC Urine WBC Ur Squamous Epith Cells Urine Bacteria Hyaline Casts Nasal Screen MRSA (PCR) Nasal S. aureus Screen Nasal MRSA/S.aureus Interp Stool Occult Blood Stl C. cayetanensis PCR Stool Rotavirus A PCR Stl Adenov F 40/41 PCR Stool Astrovirus (PCR) Stool Campylobacter PCR Stool Cryptosporidium PCR Stl Sh Tox Pr E STEC PCR Stool E coli O157 PCR Stl Enterotoxigenic E PCR Stool EPEC (PCR) Stool EAEC (PCR) Stl E. histolytica PCR Stool Giardia Lamblia PCR Stl P. shigelloides PCR Stool Salmonella PCR Stool Sapovirus (PCR) Stl Shigella/EIEC PCR St Y.enterocolitica PCR Stool Vibrio (PCR) Stl Vibrio cholerae PCR Stl Norovirus GI/GII PCR Random Vancomycin 14.6 L Valproic Acid Carbamazepine Lamotrigine Clozapine Norclozapine Respiratory Panel Ashley Adenovirus (Rapid PCR) B.pert (TEM-PCR) B.parapertussis DNA PCR C. pneumoniae DNA (PCR) Coronavirus OC43 (PCR) Coronavirus HKU1 (PCR) Coronavirus 229E (PCR) Coronavirus NL63 (PCR) Hepatitis A IgM Ab Hep Bs Antigen Hepatitis C Ab (EIA) Human Metapneumovir PCR Influenza A (RT-PCR) Influenza Type A (PCR) Influenza B (RT-PCR) Influenza Type B (PCR) M. pneumoniae (PCR) Parainfluenza 1 (PCR) Parainfluenza 2 (PCR) Parainfluenza 3 (PCR) Parainfluenza 4 (PCR) RSV (PCR) RSV RNA Qual (PCR) Entero/Rhino (PCR) SARS-CoV-2 RNA (RT-PCR) Blood Type Antibody Screen 06/10/23 06/10/23 06/11/23 22:31 23:47 05:49 WBC 11.7 H RBC 2.70 L Hgb 8.2 L Hct 26.6 L MCV 98.5 H MCH 30.4 MCHC 30.8 L RDW 14.9 Plt Count 296 MPV 10.0 Immature Gran % (Auto) 1.3 H Neut % (Auto) 71.9 Lymph % (Auto) 19.5 L Yates % (Auto) 4.1 Eos % (Auto) 2.7 Baso % (Auto) 0.5 Lymph # (Auto) 2.3 Yates # (Auto) 0.5 Eos # (Auto) 0.3 Baso # (Auto) 0.1 Abs Immat Gran (auto) 0.15 H Absolute Neuts (auto) 8.4 H Absolute Nucleated RBC 0.020 H Nucleated RBC % (auto) 0.2 Neutrophils % (Manual) Band Neutrophils % Lymphocytes % (Manual) Atypical Lymphs % (Man) Monocytes % (Manual) Eosinophils % (Manual) Metamyelocytes % Myelocytes % Promyelocytes % Abs Neuts (Manual) Lymphocytes # (Manual) Atyp Lymphs # (Manual) Monocytes # (Manual) Eosinophils # (Manual) Metamyelocytes # Myelocytes # Promyelocytes # Nucleated RBCs Smudge Cells Toxic Granulation Toxic Vacuolation Platelet Estimate Large Platelets Plt Morphology Comment RBC Morphology Polychromasia Hypochromasia Basophilic Stippling Spherocytes Tear Drop Cells Ovalocytes Rosa-[place] Bodies [place] Cells Acanthocytes (Spur) Schistocytes PT 14.7 H INR 1.2 H aPTT Heparin Protocol 50.1 L D 56.4 D-Dimer High Sensitivty O2 Saturation ABG pH at Pt Temp ABG pCO2 at Pt Temp ABG pO2 at Pt Temp ABG HCO3 ABG Base Excess (Actual) VBG pH VBG pCO2 VBG pO2 VBG HCO3 VBG O2 Saturation VBG Base Excess Sodium 148 H Potassium 3.1 L Chloride 104 Carbon Dioxide 32 H Anion Gap 15 BUN 20 H Creatinine 0.86 Estim Creat Clear Calc 85.3 Estimated GFR > 60 POC Glucose 172 H Random Glucose 193 H Lactic Acid Lactic Acid F/U @ 2Hr Calcium 8.4 Phosphorus 2.9 Magnesium 1.9 Total Bilirubin Direct Bilirubin AST ALT Alkaline Phosphatase Ammonia Troponin I High Sens B-Natriuretic Peptide Total Protein Albumin Lipase 25-OH Vitamin D Total Procalcitonin TSH Urine Color Urine Appearance Urine pH Ur Specific [place] Urine Protein Urine Glucose (UA) Urine Ketones Urine Blood Urine Nitrite Ur Leukocyte Esterase Urine RBC Urine WBC Ur Squamous Epith Cells Urine Bacteria Hyaline Casts Nasal Screen MRSA (PCR) Nasal S. aureus Screen Nasal MRSA/S.aureus Interp Stool Occult Blood Stl C. cayetanensis PCR Stool Rotavirus A PCR Stl Adenov F 40/41 PCR Stool Astrovirus (PCR) Stool Campylobacter PCR Stool Cryptosporidium PCR Stl Sh Tox Pr E STEC PCR Stool E coli O157 PCR Stl Enterotoxigenic E PCR Stool EPEC (PCR) Stool EAEC (PCR) Stl E. histolytica PCR Stool Giardia Lamblia PCR Stl P. shigelloides PCR Stool Salmonella PCR Stool Sapovirus (PCR) Stl Shigella/EIEC PCR St Y.enterocolitica PCR Stool Vibrio (PCR) Stl Vibrio cholerae PCR Stl Norovirus GI/GII PCR Random Vancomycin Valproic Acid Carbamazepine Lamotrigine Clozapine Norclozapine Respiratory Panel Ashley Adenovirus (Rapid PCR) B.pert (TEM-PCR) B.parapertussis DNA PCR C. pneumoniae DNA (PCR) Coronavirus OC43 (PCR) Coronavirus HKU1 (PCR) Coronavirus 229E (PCR) Coronavirus NL63 (PCR) Hepatitis A IgM Ab Hep Bs Antigen Hepatitis C Ab (EIA) Human Metapneumovir PCR Influenza A (RT-PCR) Influenza Type A (PCR) Influenza B (RT-PCR) Influenza Type B (PCR) M. pneumoniae (PCR) Parainfluenza 1 (PCR) Parainfluenza 2 (PCR) Parainfluenza 3 (PCR) Parainfluenza 4 (PCR) RSV (PCR) RSV RNA Qual (PCR) Entero/Rhino (PCR) SARS-CoV-2 RNA (RT-PCR) Blood Type Antibody Screen 06/11/23 06/11/23 06/11/23 05:56 05:58 11:45 WBC RBC Hgb Hct MCV MCH MCHC RDW Plt Count MPV Immature Gran % (Auto) Neut % (Auto) Lymph % (Auto) Yates % (Auto) Eos % (Auto) Baso % (Auto) Lymph # (Auto) Yates # (Auto) Eos # (Auto) Baso # (Auto) Abs Immat Gran (auto) Absolute Neuts (auto) Absolute Nucleated RBC Nucleated RBC % (auto) Neutrophils % (Manual) Band Neutrophils % Lymphocytes % (Manual) Atypical Lymphs % (Man) Monocytes % (Manual) Eosinophils % (Manual) Metamyelocytes % Myelocytes % Promyelocytes % Abs Neuts (Manual) Lymphocytes # (Manual) Atyp Lymphs # (Manual) Monocytes # (Manual) Eosinophils # (Manual) Metamyelocytes # Myelocytes # Promyelocytes # Nucleated RBCs Smudge Cells Toxic Granulation Toxic Vacuolation Platelet Estimate Large Platelets Plt Morphology Comment RBC Morphology Polychromasia Hypochromasia Basophilic Stippling Spherocytes Tear Drop Cells Ovalocytes Rosa-[place] Bodies [place] Cells Acanthocytes (Spur) Schistocytes PT INR aPTT Heparin Protocol 55.3 D-Dimer High Sensitivty O2 Saturation ABG pH at Pt Temp ABG pCO2 at Pt Temp ABG pO2 at Pt Temp ABG HCO3 ABG Base Excess (Actual) VBG pH 7.57 H VBG pCO2 40 VBG pO2 202 VBG HCO3 37 H VBG O2 Saturation 99.0 VBG Base Excess 14.2 Sodium Potassium Chloride Carbon Dioxide Anion Gap BUN Creatinine Estim Creat Clear Calc Estimated GFR POC Glucose 175 H Random Glucose Lactic Acid Lactic Acid F/U @ 2Hr Calcium Phosphorus Magnesium Total Bilirubin Direct Bilirubin AST ALT Alkaline Phosphatase Ammonia Troponin I High Sens B-Natriuretic Peptide Total Protein Albumin Lipase 25-OH Vitamin D Total Procalcitonin TSH Urine Color Urine Appearance Urine pH Ur Specific [place] Urine Protein Urine Glucose (UA) Urine Ketones Urine Blood Urine Nitrite Ur Leukocyte Esterase Urine RBC Urine WBC Ur Squamous Epith Cells Urine Bacteria Hyaline Casts Nasal Screen MRSA (PCR) Nasal S. aureus Screen Nasal MRSA/S.aureus Interp Stool Occult Blood Stl C. cayetanensis PCR Stool Rotavirus A PCR Stl Adenov F 40/41 PCR Stool Astrovirus (PCR) Stool Campylobacter PCR Stool Cryptosporidium PCR Stl Sh Tox Pr E STEC PCR Stool E coli O157 PCR Stl Enterotoxigenic E PCR Stool EPEC (PCR) Stool EAEC (PCR) Stl E. histolytica PCR Stool Giardia Lamblia PCR Stl P. shigelloides PCR Stool Salmonella PCR Stool Sapovirus (PCR) Stl Shigella/EIEC PCR St Y.enterocolitica PCR Stool Vibrio (PCR) Stl Vibrio cholerae PCR Stl Norovirus GI/GII PCR Random Vancomycin Valproic Acid Carbamazepine Lamotrigine Clozapine Norclozapine Respiratory Panel Ashley Adenovirus (Rapid PCR) B.pert (TEM-PCR) B.parapertussis DNA PCR C. pneumoniae DNA (PCR) Coronavirus OC43 (PCR) Coronavirus HKU1 (PCR) Coronavirus 229E (PCR) Coronavirus NL63 (PCR) Hepatitis A IgM Ab Hep Bs Antigen Hepatitis C Ab (EIA) Human Metapneumovir PCR Influenza A (RT-PCR) Influenza Type A (PCR) Influenza B (RT-PCR) Influenza Type B (PCR) M. pneumoniae (PCR) Parainfluenza 1 (PCR) Parainfluenza 2 (PCR) Parainfluenza 3 (PCR) Parainfluenza 4 (PCR) RSV (PCR) RSV RNA Qual (PCR) Entero/Rhino (PCR) SARS-CoV-2 RNA (RT-PCR) Blood Type Antibody Screen 06/11/23 06/11/23 06/11/23 12:28 17:56 18:00 WBC RBC Hgb Hct MCV MCH MCHC RDW Plt Count MPV Immature Gran % (Auto) Neut % (Auto) Lymph % (Auto) Yates % (Auto) Eos % (Auto) Baso % (Auto) Lymph # (Auto) Yates # (Auto) Eos # (Auto) Baso # (Auto) Abs Immat Gran (auto) Absolute Neuts (auto) Absolute Nucleated RBC Nucleated RBC % (auto) Neutrophils % (Manual) Band Neutrophils % Lymphocytes % (Manual) Atypical Lymphs % (Man) Monocytes % (Manual) Eosinophils % (Manual) Metamyelocytes % Myelocytes % Promyelocytes % Abs Neuts (Manual) Lymphocytes # (Manual) Atyp Lymphs # (Manual) Monocytes # (Manual) Eosinophils # (Manual) Metamyelocytes # Myelocytes # Promyelocytes # Nucleated RBCs Smudge Cells Toxic Granulation Toxic Vacuolation Platelet Estimate Large Platelets Plt Morphology Comment RBC Morphology Polychromasia Hypochromasia Basophilic Stippling Spherocytes Tear Drop Cells Ovalocytes Rosa-[place] Bodies [place] Cells Acanthocytes (Spur) Schistocytes PT INR aPTT Heparin Protocol D-Dimer High Sensitivty O2 Saturation ABG pH at Pt Temp ABG pCO2 at Pt Temp ABG pO2 at Pt Temp ABG HCO3 ABG Base Excess (Actual) VBG pH VBG pCO2 VBG pO2 VBG HCO3 VBG O2 Saturation VBG Base Excess Sodium 147 H Potassium 3.4 Chloride 105 Carbon Dioxide 30 H Anion Gap 15 BUN 20 H Creatinine 0.82 Estim Creat Clear Calc 87.6 Estimated GFR > 60 POC Glucose 161 H 154 H Random Glucose 158 H Lactic Acid Lactic Acid F/U @ 2Hr Calcium 8.2 L Phosphorus 3.0 Magnesium 1.9 Total Bilirubin Direct Bilirubin AST ALT Alkaline Phosphatase Ammonia Troponin I High Sens B-Natriuretic Peptide Total Protein Albumin Lipase 25-OH Vitamin D Total Procalcitonin TSH Urine Color Urine Appearance Urine pH Ur Specific [place] Urine Protein Urine Glucose (UA) Urine Ketones Urine Blood Urine Nitrite Ur Leukocyte Esterase Urine RBC Urine WBC Ur Squamous Epith Cells Urine Bacteria Hyaline Casts Nasal Screen MRSA (PCR) Nasal S. aureus Screen Nasal MRSA/S.aureus Interp Stool Occult Blood Stl C. cayetanensis PCR Stool Rotavirus A PCR Stl Adenov F 40/41 PCR Stool Astrovirus (PCR) Stool Campylobacter PCR Stool Cryptosporidium PCR Stl Sh Tox Pr E STEC PCR Stool E coli O157 PCR Stl Enterotoxigenic E PCR Stool EPEC (PCR) Stool EAEC (PCR) Stl E. histolytica PCR Stool Giardia Lamblia PCR Stl P. shigelloides PCR Stool Salmonella PCR Stool Sapovirus (PCR) Stl Shigella/EIEC PCR St Y.enterocolitica PCR Stool Vibrio (PCR) Stl Vibrio cholerae PCR Stl Norovirus GI/GII PCR Random Vancomycin Valproic Acid Carbamazepine Lamotrigine Clozapine Norclozapine Respiratory Panel Ashley Adenovirus (Rapid PCR) B.pert (TEM-PCR) B.parapertussis DNA PCR C. pneumoniae DNA (PCR) Coronavirus OC43 (PCR) Coronavirus HKU1 (PCR) Coronavirus 229E (PCR) Coronavirus NL63 (PCR) Hepatitis A IgM Ab Hep Bs Antigen Hepatitis C Ab (EIA) Human Metapneumovir PCR Influenza A (RT-PCR) Influenza Type A (PCR) Influenza B (RT-PCR) Influenza Type B (PCR) M. pneumoniae (PCR) Parainfluenza 1 (PCR) Parainfluenza 2 (PCR) Parainfluenza 3 (PCR) Parainfluenza 4 (PCR) RSV (PCR) RSV RNA Qual (PCR) Entero/Rhino (PCR) SARS-CoV-2 RNA (RT-PCR) Blood Type Antibody Screen 06/11/23 06/11/23 06/12/23 20:58 23:10 04:51 WBC 10.7 RBC 2.45 L Hgb 7.5 L Hct 24.4 L MCV 99.6 H MCH 30.6 MCHC 30.7 L RDW 14.7 Plt Count 268 MPV 9.3 L Immature Gran % (Auto) 1.1 H Neut % (Auto) 64.6 Lymph % (Auto) 25.3 Yates % (Auto) 3.5 Eos % (Auto) 4.8 H Baso % (Auto) 0.7 Lymph # (Auto) 2.7 Yates # (Auto) 0.4 Eos # (Auto) 0.5 H Baso # (Auto) 0.1 Abs Immat Gran (auto) 0.12 H Absolute Neuts (auto) 6.9 Absolute Nucleated RBC 0.020 H Nucleated RBC % (auto) 0.2 Neutrophils % (Manual) Band Neutrophils % Lymphocytes % (Manual) Atypical Lymphs % (Man) Monocytes % (Manual) Eosinophils % (Manual) Metamyelocytes % Myelocytes % Promyelocytes % Abs Neuts (Manual) Lymphocytes # (Manual) Atyp Lymphs # (Manual) Monocytes # (Manual) Eosinophils # (Manual) Metamyelocytes # Myelocytes # Promyelocytes # Nucleated RBCs Smudge Cells Toxic Granulation Toxic Vacuolation Platelet Estimate Large Platelets Plt Morphology Comment RBC Morphology Polychromasia Hypochromasia Basophilic Stippling Spherocytes Tear Drop Cells Ovalocytes Rosa-[place] Bodies [place] Cells Acanthocytes (Spur) Schistocytes PT INR aPTT Heparin Protocol D-Dimer High Sensitivty O2 Saturation ABG pH at Pt Temp ABG pCO2 at Pt Temp ABG pO2 at Pt Temp ABG HCO3 ABG Base Excess (Actual) VBG pH VBG pCO2 VBG pO2 VBG HCO3 VBG O2 Saturation VBG Base Excess Sodium 145 Potassium 3.2 L Chloride 105 Carbon Dioxide 30 H Anion Gap 13 BUN 21 H Creatinine 0.87 0.84 Estim Creat Clear Calc 82.6 84.5 Estimated GFR > 60 > 60 POC Glucose 162 H Random Glucose 143 H Lactic Acid Lactic Acid F/U @ 2Hr Calcium 8.3 L Phosphorus 3.2 Magnesium 1.9 Total Bilirubin Direct Bilirubin AST ALT Alkaline Phosphatase Ammonia Troponin I High Sens B-Natriuretic Peptide Total Protein Albumin Lipase 25-OH Vitamin D Total Procalcitonin TSH Urine Color Urine Appearance Urine pH Ur Specific [place] Urine Protein Urine Glucose (UA) Urine Ketones Urine Blood Urine Nitrite Ur Leukocyte Esterase Urine RBC Urine WBC Ur Squamous Epith Cells Urine Bacteria Hyaline Casts Nasal Screen MRSA (PCR) Nasal S. aureus Screen Nasal MRSA/S.aureus Interp Stool Occult Blood Stl C. cayetanensis PCR Stool Rotavirus A PCR Stl Adenov F 40/41 PCR Stool Astrovirus (PCR) Stool Campylobacter PCR Stool Cryptosporidium PCR Stl Sh Tox Pr E STEC PCR Stool E coli O157 PCR Stl Enterotoxigenic E PCR Stool EPEC (PCR) Stool EAEC (PCR) Stl E. histolytica PCR Stool Giardia Lamblia PCR Stl P. shigelloides PCR Stool Salmonella PCR Stool Sapovirus (PCR) Stl Shigella/EIEC PCR St Y.enterocolitica PCR Stool Vibrio (PCR) Stl Vibrio cholerae PCR Stl Norovirus GI/GII PCR Random Vancomycin 16.0 Valproic Acid Carbamazepine Lamotrigine Clozapine Norclozapine Respiratory Panel Ashley Adenovirus (Rapid PCR) B.pert (TEM-PCR) B.parapertussis DNA PCR C. pneumoniae DNA (PCR) Coronavirus OC43 (PCR) Coronavirus HKU1 (PCR) Coronavirus 229E (PCR) Coronavirus NL63 (PCR) Hepatitis A IgM Ab Hep Bs Antigen Hepatitis C Ab (EIA) Human Metapneumovir PCR Influenza A (RT-PCR) Influenza Type A (PCR) Influenza B (RT-PCR) Influenza Type B (PCR) M. pneumoniae (PCR) Parainfluenza 1 (PCR) Parainfluenza 2 (PCR) Parainfluenza 3 (PCR) Parainfluenza 4 (PCR) RSV (PCR) RSV RNA Qual (PCR) Entero/Rhino (PCR) SARS-CoV-2 RNA (RT-PCR) Blood Type Antibody Screen 06/12/23 06/12/23 06/12/23 06:10 09:38 10:10 WBC RBC Hgb Hct MCV MCH MCHC RDW Plt Count MPV Immature Gran % (Auto) Neut % (Auto) Lymph % (Auto) Yates % (Auto) Eos % (Auto) Baso % (Auto) Lymph # (Auto) Yates # (Auto) Eos # (Auto) Baso # (Auto) Abs Immat Gran (auto) Absolute Neuts (auto) Absolute Nucleated RBC Nucleated RBC % (auto) Neutrophils % (Manual) Band Neutrophils % Lymphocytes % (Manual) Atypical Lymphs % (Man) Monocytes % (Manual) Eosinophils % (Manual) Metamyelocytes % Myelocytes % Promyelocytes % Abs Neuts (Manual) Lymphocytes # (Manual) Atyp Lymphs # (Manual) Monocytes # (Manual) Eosinophils # (Manual) Metamyelocytes # Myelocytes # Promyelocytes # Nucleated RBCs Smudge Cells Toxic Granulation Toxic Vacuolation Platelet Estimate Large Platelets Plt Morphology Comment RBC Morphology Polychromasia Hypochromasia Basophilic Stippling Spherocytes Tear Drop Cells Ovalocytes Rosa-[place] Bodies Jyoti Cells Acanthocytes (Spur) Schistocytes PT INR aPTT Heparin Protocol 48.2 L 48.6 L D-Dimer High Sensitivty O2 Saturation ABG pH at Pt Temp ABG pCO2 at Pt Temp ABG pO2 at Pt Temp ABG HCO3 ABG Base Excess (Actual) VBG pH VBG pCO2 VBG pO2 VBG HCO3 VBG O2 Saturation VBG Base Excess Sodium Potassium Chloride Carbon Dioxide Anion Gap BUN Creatinine Estim Creat Clear Calc Estimated GFR POC Glucose Random Glucose Lactic Acid Lactic Acid F/U @ 2Hr Calcium Phosphorus Magnesium Total Bilirubin Direct Bilirubin AST ALT Alkaline Phosphatase Ammonia Troponin I High Sens B-Natriuretic Peptide Total Protein Albumin Lipase 25-OH Vitamin D Total Procalcitonin TSH Urine Color Urine Appearance Urine pH Ur Specific [place] Urine Protein Urine Glucose (UA) Urine Ketones Urine Blood Urine Nitrite Ur Leukocyte Esterase Urine RBC Urine WBC Ur Squamous Epith Cells Urine Bacteria Hyaline Casts Nasal Screen MRSA (PCR) Nasal S. aureus Screen Nasal MRSA/S.aureus Interp Stool Occult Blood NEGATIVE Stl C. cayetanensis PCR Stool Rotavirus A PCR Stl Adenov F 40/41 PCR Stool Astrovirus (PCR) Stool Campylobacter PCR Stool Cryptosporidium PCR Stl Sh Tox Pr E STEC PCR Stool E coli O157 PCR Stl Enterotoxigenic E PCR Stool EPEC (PCR) Stool EAEC (PCR) Stl E. histolytica PCR Stool Giardia Lamblia PCR Stl P. shigelloides PCR Stool Salmonella PCR Stool Sapovirus (PCR) Stl Shigella/EIEC PCR St Y.enterocolitica PCR Stool Vibrio (PCR) Stl Vibrio cholerae PCR Stl Norovirus GI/GII PCR Random Vancomycin Valproic Acid Carbamazepine Lamotrigine Clozapine Norclozapine Respiratory Panel Ashley Adenovirus (Rapid PCR) B.pert (TEM-PCR) B.parapertussis DNA PCR C. pneumoniae DNA (PCR) Coronavirus OC43 (PCR) Coronavirus HKU1 (PCR) Coronavirus 229E (PCR) Coronavirus NL63 (PCR) Hepatitis A IgM Ab Hep Bs Antigen Hepatitis C Ab (EIA) Human Metapneumovir PCR Influenza A (RT-PCR) Influenza Type A (PCR) Influenza B (RT-PCR) Influenza Type B (PCR) M. pneumoniae (PCR) Parainfluenza 1 (PCR) Parainfluenza 2 (PCR) Parainfluenza 3 (PCR) Parainfluenza 4 (PCR) RSV (PCR) RSV RNA Qual (PCR) Entero/Rhino (PCR) SARS-CoV-2 RNA (RT-PCR) Blood Type A Negative Antibody Screen NEGATIVE 06/12/23 11:51 WBC RBC Hgb Hct MCV MCH MCHC RDW Plt Count MPV Immature Gran % (Auto) Neut % (Auto) Lymph % (Auto) Yates % (Auto) Eos % (Auto) Baso % (Auto) Lymph # (Auto) Yates # (Auto) Eos # (Auto) Baso # (Auto) Abs Immat Gran (auto) Absolute Neuts (auto) Absolute Nucleated RBC Nucleated RBC % (auto) Neutrophils % (Manual) Band Neutrophils % Lymphocytes % (Manual) Atypical Lymphs % (Man) Monocytes % (Manual) Eosinophils % (Manual) Metamyelocytes % Myelocytes % Promyelocytes % Abs Neuts (Manual) Lymphocytes # (Manual) Atyp Lymphs # (Manual) Monocytes # (Manual) Eosinophils # (Manual) Metamyelocytes # Myelocytes # Promyelocytes # Nucleated RBCs Smudge Cells Toxic Granulation Toxic Vacuolation Platelet Estimate Large Platelets Plt Morphology Comment RBC Morphology Polychromasia Hypochromasia Basophilic Stippling Spherocytes Tear Drop Cells Ovalocytes Rosa-[place] Bodies Jyoti Cells Acanthocytes (Spur) Schistocytes PT INR aPTT Heparin Protocol D-Dimer High Sensitivty O2 Saturation ABG pH at Pt Temp ABG pCO2 at Pt Temp ABG pO2 at Pt Temp ABG HCO3 ABG Base Excess (Actual) VBG pH VBG pCO2 VBG pO2 VBG HCO3 VBG O2 Saturation VBG Base Excess Sodium Potassium Chloride Carbon Dioxide Anion Gap BUN Creatinine Estim Creat Clear Calc Estimated GFR POC Glucose 137 H Random Glucose Lactic Acid Lactic Acid F/U @ 2Hr Calcium Phosphorus Magnesium Total Bilirubin Direct Bilirubin AST ALT Alkaline Phosphatase Ammonia Troponin I High Sens B-Natriuretic Peptide Total Protein Albumin Lipase 25-OH Vitamin D Total Procalcitonin TSH Urine Color Urine Appearance Urine pH Ur Specific [place] Urine Protein Urine Glucose (UA) Urine Ketones Urine Blood Urine Nitrite Ur Leukocyte Esterase Urine RBC Urine WBC Ur Squamous Epith Cells Urine Bacteria Hyaline Casts Nasal Screen MRSA (PCR) Nasal S. aureus Screen Nasal MRSA/S.aureus Interp Stool Occult Blood Stl C. cayetanensis PCR Stool Rotavirus A PCR Stl Adenov F 40/41 PCR Stool Astrovirus (PCR) Stool Campylobacter PCR Stool Cryptosporidium PCR Stl Sh Tox Pr E STEC PCR Stool E coli O157 PCR Stl Enterotoxigenic E PCR Stool EPEC (PCR) Stool EAEC (PCR) Stl E. histolytica PCR Stool Giardia Lamblia PCR Stl P. shigelloides PCR Stool Salmonella PCR Stool Sapovirus (PCR) Stl Shigella/EIEC PCR St Y.enterocolitica PCR Stool Vibrio (PCR) Stl Vibrio cholerae PCR Stl Norovirus GI/GII PCR Random Vancomycin Valproic Acid Carbamazepine Lamotrigine Clozapine Norclozapine Respiratory Panel Ashley Adenovirus (Rapid PCR) B.pert (TEM-PCR) B.parapertussis DNA PCR C. pneumoniae DNA (PCR) Coronavirus OC43 (PCR) Coronavirus HKU1 (PCR) Coronavirus 229E (PCR) Coronavirus NL63 (PCR) Hepatitis A IgM Ab Hep Bs Antigen Hepatitis C Ab (EIA) Human Metapneumovir PCR Influenza A (RT-PCR) Influenza Type A (PCR) Influenza B (RT-PCR) Influenza Type B (PCR) M. pneumoniae (PCR) Parainfluenza 1 (PCR) Parainfluenza 2 (PCR) Parainfluenza 3 (PCR) Parainfluenza 4 (PCR) RSV (PCR) RSV RNA Qual (PCR) Entero/Rhino (PCR) SARS-CoV-2 RNA (RT-PCR) Blood Type Antibody Screen
--- NOTE | 2023-06-12 12:59 | P.CONAN_ITS ---
REPLACED BY [facility] Active Problems Active Problems: All Active Problems Aspiration into airway (Acute) High degree atrioventricular block (Acute) Persistent atrial fibrillation (Acute) Paroxysmal atrial fibrillation (Acute) Septic shock (Acute) Asystole (Acute) Type II diabetes mellitus (Acute) Pulmonary aspiration (Acute) Acute pulmonary edema (Acute) Acute respiratory failure with hypoxia (Acute) Acute congestive heart failure (Acute) Acute dehydration (Acute) Hypocalcemia (Acute) Hypomagnesemia (Acute) Acute hypokalemia (Acute) Viral syndrome (Acute) Fever (Acute) Acute diarrhea (Acute) Bipolar disorder (Acute) Delusional disorder, persecutory type (Acute) Schizoaffective disorder, bipolar type (Acute) Bipolar affective disorder, manic, severe, with psychotic behavior (Acute) PTSD (post-traumatic stress disorder) (Acute) Past Medical History Medical History Hypertension Hyperlipidemia Type II diabetes mellitus PTSD (post-traumatic stress disorder) Functional capacity: independent ambulation Patient : No Family History Family history of problems with anesthesia: No Surgical History Surgical History History of cholecystectomy History of Problems with Anesthesia: No Social History Social History Household Members: Other Housing: Other Housing Other:: [facility] facility Do you presently have visiting nurse or other home services: No Comment: sitter in room Patient Tobacco Use Status: Never used Tobacco Tobacco use type: Cigarette e-Cigarette/Vaping Use: Never Used Substance Use Type: Caffiene service: No Sexual orientation: Straight/Heterosexual Meds Allergies Allergy/AdvReac Type Severity Reaction Status Date / Time amoxicillin Allergy Unknown Unknown Uncoded 05/27/23 14:06 Pt states no food allergy Allergy Unknown Unknown Uncoded 05/27/23 14:06 Active Medications: Current Medications Acetaminophen (Acetaminophen 325 Mg Tablet) 975 mg PO Q6H PRN PRN Reason: Fever >101 Last Admin: 06/07/23 15:22 Dose: 975 mg Al Hydroxide/Mg Hydroxide (Magnesium Hydrox/Alum Hydrox 30 Ml Oral.Susp) 30 ml PO Q6H PRN PRN Reason: Heartburn/Nausea Last Admin: 05/29/23 05:11 Dose: 30 ml Famotidine (Famotidine/Pf 20 Mg/2 Ml Vial) 20 mg IVPUSH DAILY [facility] Last Admin: 06/12/23 07:35 Dose: 20 mg Furosemide (Furosemide 20 Mg/2 Ml Vial) 10 mg IVPUSH BID@0900,1800 [facility]; Protocol Last Admin: 06/12/23 07:35 Dose: 10 mg Glucose (Glucose Gel 15 Gm Gel..Gram.) 15 gm PO Q15M PRN; Protocol PRN Reason: per Hypoglycemia Standing Ord. Heparin Sodium (Porcine) (Heparin Sodium,Porcine 5,000 Unit/Ml Vial) 4,500 unit 40 unit/kg (4500 unit) IVPUSH PROTOCOL BOLUS PRN; Protocol PRN Reason: 40 unit/kg - Heparin Protocol Last Admin: 06/12/23 06:29 Dose: 4,500 unit Heparin Sodium (Porcine) (Heparin Sodium,Porcine 5,000 Unit/Ml Vial) 9,000 unit 80 unit/kg (9000 unit) IVPUSH PROTOCOL BOLUS PRN; Protocol PRN Reason: 80 unit/kg - Heparin Protocol Last Admin: 06/10/23 16:39 Dose: 9,000 unit Hydromorphone HCl (Hydromorphone Hcl 0.5 Mg/0.5 Ml Syringe) 0.5 mg IVPUSH Q2H PRN; Protocol PRN Reason: Pain, Moderate(Pain Scale 4-6) Last Admin: 06/09/23 18:06 Dose: 0.5 mg Dextrose (D10) 250 mls @ 750 mls/hr IV Q15M PRN; Protocol PRN Reason: per Hypoglycemia Standing Ord. Piperacillin Sod/Tazobactam (Sod 4.5 gm/ Sodium Chloride) 100 mls @ 200 mls/hr IV Q6H [facility] Last Infusion: 06/12/23 12:54 Dose: Infused Vancomycin HCl 750 mg/ Sodium (Chloride) 265 mls @ 265 mls/hr IV Q12H [facility] Last Admin: 06/12/23 11:48 Dose: 265 mls/hr Valproic Acid 750 mg/ Dextrose 57.5 mls @ 57.5 mls/hr IV BID [facility] Last Infusion: 06/12/23 08:58 Dose: Infused Heparin Sodium/Sodium Chloride (Heparin Sodium,Porcine/1/2ns) 25,000 unit in 250 mls @ 0 mls/hr IVCONT .Q0M [facility]; Protocol Last Titration: 06/12/23 11:56 Dose: Infused Insulin Human Lispro (Insulin Lispro 100 Unit/Ml 3 Ml Vial) 0 unit SUBCUT Q6H [facility]; Protocol Last Admin: 06/12/23 11:57 Dose: Not Given Lorazepam (Lorazepam 2 Mg/Ml Vial) 0.5 mg IVPUSH Q2H PRN PRN Reason: Agitation Last Admin: 06/09/23 23:50 Dose: 0.5 mg Ondansetron HCl (Ondansetron Hcl 4 Mg/2 Ml Vial) 4 mg IVPUSH Q8H PRN PRN Reason: Nausea and Vomiting Pharmacy Consult (Consult Rx Vancomycin Dosing) 1 each MISCELLANE DAILY PRN PRN Reason: Consult order Sodium Chloride (0.9 % Sodium Chloride Flush 3 Ml Syringe) 3 ml IVFLUSH QSHIFT [facility] Last Admin: 06/12/23 07:35 Dose: 3 ml Thyroid (Thyroid,Pork 30 Mg Tablet) 120 mg PO DAILY@06 [facility] Last Admin: 06/10/23 06:10 Dose: Not Given Home Medications ?Medication ?Instructions ?Recorded ?Confirmed ?Last Taken ?Type acetaminophen 325 mg tablet 650 mg PO Q6H PRN Pain 05/27/23 05/27/23 Unknown History atorvastatin 40 mg tablet 40 mg PO BEDTIME 05/27/23 05/27/23 Unknown History clozapine 100 mg tablet 100 mg PO BID 05/27/23 05/27/23 Unknown History clozapine 50 mg tablet 50 mg PO BEDTIME 05/27/23 05/27/23 Unknown History divalproex 250 mg tablet,delayed 250 mg PO BID 05/27/23 05/27/23 Unknown History release (Depakote) divalproex 500 mg tablet,delayed 500 mg PO BID 05/27/23 05/27/23 Unknown History release (Depakote) lorazepam 1 mg tablet 1 mg PO Q4H PRN becca 05/27/23 05/27/23 Unknown History magnesium hydroxide 400 mg/5 mL 30 ml PO BEDTIME PRN Constipation 05/27/23 05/27/23 Unknown History oral suspension (Milk of Magnesia) melatonin 3 mg tablet 9 mg PO BEDTIME PRN Insomnia 05/27/23 05/27/23 Unknown History thyroid (pork) 120 mg tablet ([employer] 120 mg PO DAILY@0630 05/27/23 05/27/23 Unknown History Thyroid) Exam Height,Weight and Vital Signs: Height 5 ft 7 in Weight 109.8 kg Last Vital Signs Temp 98.5 F 06/12/23 12:00 Pulse 88 06/12/23 12:00 Resp 20 06/12/23 12:00 BP 124/55 L 06/12/23 12:00 Pulse Ox 90 L 06/12/23 12:00 O2 Del Method High Flow Nasal Cannula 06/12/23 12:00 O2 Flow Rate 35 06/12/23 12:00 FiO2 45 06/12/23 12:00 Oxygen Flow Rate 15 05/29/23 06:00 Pertinent Lab Results Pertinent Lab Results: Laboratory Tests 05/27/23 05/27/23 05/27/23 13:55 14:38 15:46 WBC 11.0 H RBC 4.19 L Hgb 13.2 Hct 39.1 MCV 93.3 MCH 31.5 MCHC 33.8 RDW 13.4 Plt Count 157 L MPV 10.4 Immature Gran % (Auto) 1.4 H Neut % (Auto) 86.1 H Lymph % (Auto) 7.7 L [place] % (Auto) 4.0 Eos % (Auto) 0.5 Baso % (Auto) 0.3 Lymph # (Auto) 0.9 L [place] # (Auto) 0.4 Eos # (Auto) 0.1 Baso # (Auto) 0.0 Abs Immat Gran (auto) 0.15 H Absolute Neuts (auto) 9.5 H Absolute Nucleated RBC 0.020 H Nucleated RBC % (auto) 0.2 Neutrophils % (Manual) Band Neutrophils % Lymphocytes % (Manual) Atypical Lymphs % (Man) Monocytes % (Manual) Eosinophils % (Manual) Metamyelocytes % Myelocytes % Promyelocytes % Abs Neuts (Manual) Lymphocytes # (Manual) Atyp Lymphs # (Manual) Monocytes # (Manual) Eosinophils # (Manual) Metamyelocytes # Myelocytes # Promyelocytes # Nucleated RBCs Smudge Cells Toxic Granulation Toxic Vacuolation Platelet Estimate Large Platelets Plt Morphology Comment RBC Morphology Polychromasia Hypochromasia Basophilic Stippling Spherocytes Tear Drop Cells Ovalocytes Rosa-Munday Bodies Jyoti Cells Acanthocytes (Spur) Schistocytes PT 14.1 H INR 1.2 H aPTT Heparin Protocol D-Dimer High Sensitivty O2 Saturation ABG pH at Pt Temp ABG pCO2 at Pt Temp ABG pO2 at Pt Temp ABG HCO3 ABG Base Excess (Actual) VBG pH VBG pCO2 VBG pO2 VBG HCO3 VBG O2 Saturation VBG Base Excess Sodium 135 Potassium 2.8 L* D Chloride 101 Carbon Dioxide 26 Anion Gap 11 L BUN 21 H Creatinine 0.82 Estim Creat Clear Calc 85.4 Estimated GFR > 60 POC Glucose Random Glucose 122 H Lactic Acid 2.3 H* Lactic Acid F/U @ 2Hr Calcium 7.5 L D Phosphorus Magnesium 1.5 L Total Bilirubin 0.4 Direct Bilirubin 0.2 AST 46 H ALT 28 Alkaline Phosphatase 62 Ammonia Troponin I High Sens 11.4 B-Natriuretic Peptide 19 Total Protein 5.6 L Albumin 3.1 L Lipase 45 25-OH Vitamin D Total Procalcitonin 0.32 TSH 0.83 Urine Color Urine Appearance Urine pH Ur Specific [place] Urine Protein Urine Glucose (UA) Urine Ketones Urine Blood Urine Nitrite Ur Leukocyte Esterase Urine RBC Urine WBC Ur Squamous Epith Cells Urine Bacteria Hyaline Casts Nasal Screen MRSA (PCR) Nasal S. aureus Screen Nasal MRSA/S.aureus Interp Stool Occult Blood Stl C. cayetanensis PCR Not Detected Stool Rotavirus A PCR Not Detected Stl Adenov F 40/41 PCR Not Detected Stool Astrovirus (PCR) Not Detected Stool Campylobacter PCR Not Detected Stool Cryptosporidium PCR Not Detected Stl Sh Tox Pr E STEC PCR Not Detected Stool E coli O157 PCR Not applicable Stl Enterotoxigenic E PCR Not Detected Stool EPEC (PCR) Not Detected Stool EAEC (PCR) Not Detected Stl E. histolytica PCR Not Detected Stool Giardia Lamblia PCR Not Detected Stl P. shigelloides PCR Not Detected Stool Salmonella PCR Not Detected Stool Sapovirus (PCR) Not Detected Stl Shigella/EIEC PCR Not Detected St Y.enterocolitica PCR Not Detected Stool Vibrio (PCR) Not Detected Stl Vibrio cholerae PCR Not Detected Stl Norovirus GI/GII PCR Not Detected Random Vancomycin Valproic Acid Carbamazepine Lamotrigine Clozapine Norclozapine Respiratory Panel Ashley Adenovirus (Rapid PCR) B.pert (TEM-PCR) B.parapertussis DNA PCR C. pneumoniae DNA (PCR) Coronavirus OC43 (PCR) Coronavirus HKU1 (PCR) Coronavirus 229E (PCR) Coronavirus NL63 (PCR) Hepatitis A IgM Ab Hep Bs Antigen Hepatitis C Ab (EIA) Human Metapneumovir PCR Influenza A (RT-PCR) Influenza Type A (PCR) NEGATIVE Influenza B (RT-PCR) Influenza Type B (PCR) NEGATIVE M. pneumoniae (PCR) Parainfluenza 1 (PCR) Parainfluenza 2 (PCR) Parainfluenza 3 (PCR) Parainfluenza 4 (PCR) RSV (PCR) RSV RNA Qual (PCR) NEGATIVE Entero/Rhino (PCR) SARS-CoV-2 RNA (RT-PCR) NEGATIVE Blood Type Antibody Screen 05/27/23 05/27/23 05/28/23 16:13 20:41 03:43 WBC RBC Hgb Hct MCV MCH MCHC RDW Plt Count MPV Immature Gran % (Auto) Neut % (Auto) Lymph % (Auto) [place] % (Auto) Eos % (Auto) Baso % (Auto) Lymph # (Auto) [place] # (Auto) Eos # (Auto) Baso # (Auto) Abs Immat Gran (auto) Absolute Neuts (auto) Absolute Nucleated RBC Nucleated RBC % (auto) Neutrophils % (Manual) Band Neutrophils % Lymphocytes % (Manual) Atypical Lymphs % (Man) Monocytes % (Manual) Eosinophils % (Manual) Metamyelocytes % Myelocytes % Promyelocytes % Abs Neuts (Manual) Lymphocytes # (Manual) Atyp Lymphs # (Manual) Monocytes # (Manual) Eosinophils # (Manual) Metamyelocytes # Myelocytes # Promyelocytes # Nucleated RBCs Smudge Cells Toxic Granulation Toxic Vacuolation Platelet Estimate Large Platelets Plt Morphology Comment RBC Morphology Polychromasia Hypochromasia Basophilic Stippling Spherocytes Tear Drop Cells Ovalocytes Rosa-Munday Bodies Jyoti Cells Acanthocytes (Spur) Schistocytes PT INR aPTT Heparin Protocol D-Dimer High Sensitivty O2 Saturation ABG pH at Pt Temp ABG pCO2 at Pt Temp ABG pO2 at Pt Temp ABG HCO3 ABG Base Excess (Actual) VBG pH VBG pCO2 VBG pO2 VBG HCO3 VBG O2 Saturation VBG Base Excess Sodium Potassium Chloride Carbon Dioxide Anion Gap BUN Creatinine Estim Creat Clear Calc Estimated GFR POC Glucose 122 H Random Glucose Lactic Acid Lactic Acid F/U @ 2Hr 1.2 Calcium Phosphorus Magnesium Total Bilirubin Direct Bilirubin AST ALT Alkaline Phosphatase Ammonia Troponin I High Sens B-Natriuretic Peptide Total Protein Albumin Lipase 25-OH Vitamin D Total Procalcitonin TSH Urine Color Dark Yellow Urine Appearance Turbid Urine pH 6.5 Ur Specific [place] >= 1.030 H Urine Protein 30 (1+) H Urine Glucose (UA) Negative Urine Ketones 15 Urine Blood Moderate (2+) H Urine Nitrite Negative Ur Leukocyte Esterase Moderate (2+) H Urine RBC >20 H Urine WBC 6-10 H Ur Squamous Epith Cells 3-5 Urine Bacteria 4+ Hyaline Casts 6-10 Nasal Screen MRSA (PCR) Nasal S. aureus Screen Nasal MRSA/S.aureus Interp Stool Occult Blood Stl C. cayetanensis PCR Stool Rotavirus A PCR Stl Adenov F 40 PCR Stool Astrovirus (PCR) Stool Campylobacter PCR Stool Cryptosporidium PCR Stl Sh Tox Pr E STEC PCR Stool E coli O157 PCR Stl Enterotoxigenic E PCR Stool EPEC (PCR) Stool EAEC (PCR) Stl E. histolytica PCR Stool Giardia Lamblia PCR Stl P. shigelloides PCR Stool Salmonella PCR Stool Sapovirus (PCR) Stl Shigella/EIEC PCR St Y.enterocolitica PCR Stool Vibrio (PCR) Stl Vibrio cholerae PCR Stl Norovirus GI/GII PCR Random Vancomycin Valproic Acid Carbamazepine Lamotrigine Clozapine Norclozapine Respiratory Panel Ashley Adenovirus (Rapid PCR) B.pert (TEM-PCR) B.parapertussis DNA PCR C. pneumoniae DNA (PCR) Coronavirus OC43 (PCR) Coronavirus HKU1 (PCR) Coronavirus 229E (PCR) Coronavirus NL63 (PCR) Hepatitis A IgM Ab Hep Bs Antigen Hepatitis C Ab (EIA) Human Metapneumovir PCR Influenza A (RT-PCR) Influenza Type A (PCR) Influenza B (RT-PCR) Influenza Type B (PCR) M. pneumoniae (PCR) Parainfluenza 1 (PCR) Parainfluenza 2 (PCR) Parainfluenza 3 (PCR) Parainfluenza 4 (PCR) RSV (PCR) RSV RNA Qual (PCR) Entero/Rhino (PCR) SARS-CoV-2 RNA (RT-PCR) Blood Type Antibody Screen 05/28/23 05/28/23 05/28/23 06:09 07:13 12:03 WBC RBC Hgb Hct MCV MCH MCHC RDW Plt Count MPV Immature Gran % (Auto) Neut % (Auto) Lymph % (Auto) [place] % (Auto) Eos % (Auto) Baso % (Auto) Lymph # (Auto) [place] # (Auto) Eos # (Auto) Baso # (Auto) Abs Immat Gran (auto) Absolute Neuts (auto) Absolute Nucleated RBC Nucleated RBC % (auto) Neutrophils % (Manual) Band Neutrophils % Lymphocytes % (Manual) Atypical Lymphs % (Man) Monocytes % (Manual) Eosinophils % (Manual) Metamyelocytes % Myelocytes % Promyelocytes % Abs Neuts (Manual) Lymphocytes # (Manual) Atyp Lymphs # (Manual) Monocytes # (Manual) Eosinophils # (Manual) Metamyelocytes # Myelocytes # Promyelocytes # Nucleated RBCs Smudge Cells Toxic Granulation Toxic Vacuolation Platelet Estimate Large Platelets Plt Morphology Comment RBC Morphology Polychromasia Hypochromasia Basophilic Stippling Spherocytes Tear Drop Cells Ovalocytes Rosa-Munday Bodies [place] Cells Acanthocytes (Spur) Schistocytes PT INR aPTT Heparin Protocol D-Dimer High Sensitivty O2 Saturation ABG pH at Pt Temp ABG pCO2 at Pt Temp ABG pO2 at Pt Temp ABG HCO3 ABG Base Excess (Actual) VBG pH VBG pCO2 VBG pO2 VBG HCO3 VBG O2 Saturation VBG Base Excess Sodium 138 Potassium 3.4 D Chloride 108 Carbon Dioxide 22 Anion Gap 11 L BUN 16 Creatinine 0.67 Estim Creat Clear Calc 104.6 Estimated GFR > 60 POC Glucose 116 H 152 H Random Glucose 120 H Lactic Acid Lactic Acid F/U @ 2Hr Calcium 7.2 L Phosphorus Magnesium 2.1 Total Bilirubin 0.4 Direct Bilirubin AST 103 H ALT 59 H Alkaline Phosphatase 52 Ammonia Troponin I High Sens B-Natriuretic Peptide Total Protein 5.4 L Albumin 3.2 L Lipase 25-OH Vitamin D Total Procalcitonin TSH Urine Color Urine Appearance Urine pH Ur Specific [place] Urine Protein Urine Glucose (UA) Urine Ketones Urine Blood Urine Nitrite Ur Leukocyte Esterase Urine RBC Urine WBC Ur Squamous Epith Cells Urine Bacteria Hyaline Casts Nasal Screen MRSA (PCR) Nasal S. aureus Screen Nasal MRSA/S.aureus Interp Stool Occult Blood Stl C. cayetanensis PCR Stool Rotavirus A PCR Stl Adenov F 40/41 PCR Stool Astrovirus (PCR) Stool Campylobacter PCR Stool Cryptosporidium PCR Stl Sh Tox Pr E STEC PCR Stool E coli O157 PCR Stl Enterotoxigenic E PCR Stool EPEC (PCR) Stool EAEC (PCR) Stl E. histolytica PCR Stool Giardia Lamblia PCR Stl P. shigelloides PCR Stool Salmonella PCR Stool Sapovirus (PCR) Stl Shigella/EIEC PCR St Y.enterocolitica PCR Stool Vibrio (PCR) Stl Vibrio cholerae PCR Stl Norovirus GI/GII PCR Random Vancomycin Valproic Acid Carbamazepine Lamotrigine Clozapine Norclozapine Respiratory Panel Ashley Adenovirus (Rapid PCR) B.pert (TEM-PCR) B.parapertussis DNA PCR C. pneumoniae DNA (PCR) Coronavirus OC43 (PCR) Coronavirus HKU1 (PCR) Coronavirus 229E (PCR) Coronavirus NL63 (PCR) Hepatitis A IgM Ab Hep Bs Antigen Hepatitis C Ab (EIA) Human Metapneumovir PCR Influenza A (RT-PCR) Influenza Type A (PCR) Influenza B (RT-PCR) Influenza Type B (PCR) M. pneumoniae (PCR) Parainfluenza 1 (PCR) Parainfluenza 2 (PCR) Parainfluenza 3 (PCR) Parainfluenza 4 (PCR) RSV (PCR) RSV RNA Qual (PCR) Entero/Rhino (PCR) SARS-CoV-2 RNA (RT-PCR) Blood Type Antibody Screen 05/28/23 05/28/23 05/28/23 14:49 16:11 19:26 WBC RBC Hgb Hct MCV MCH MCHC RDW Plt Count MPV Immature Gran % (Auto) Neut % (Auto) Lymph % (Auto) [place] % (Auto) Eos % (Auto) Baso % (Auto) Lymph # (Auto) [place] # (Auto) Eos # (Auto) Baso # (Auto) Abs Immat Gran (auto) Absolute Neuts (auto) Absolute Nucleated RBC Nucleated RBC % (auto) Neutrophils % (Manual) Band Neutrophils % Lymphocytes % (Manual) Atypical Lymphs % (Man) Monocytes % (Manual) Eosinophils % (Manual) Metamyelocytes % Myelocytes % Promyelocytes % Abs Neuts (Manual) Lymphocytes # (Manual) Atyp Lymphs # (Manual) Monocytes # (Manual) Eosinophils # (Manual) Metamyelocytes # Myelocytes # Promyelocytes # Nucleated RBCs Smudge Cells Toxic Granulation Toxic Vacuolation Platelet Estimate Large Platelets Plt Morphology Comment RBC Morphology Polychromasia Hypochromasia Basophilic Stippling Spherocytes Tear Drop Cells Ovalocytes Rosa-Munday Bodies [place] Cells Acanthocytes (Spur) Schistocytes PT INR aPTT Heparin Protocol D-Dimer High Sensitivty O2 Saturation ABG pH at Pt Temp ABG pCO2 at Pt Temp ABG pO2 at Pt Temp ABG HCO3 ABG Base Excess (Actual) VBG pH VBG pCO2 VBG pO2 VBG HCO3 VBG O2 Saturation VBG Base Excess Sodium Potassium Chloride Carbon Dioxide Anion Gap BUN Creatinine Estim Creat Clear Calc Estimated GFR POC Glucose 213 H 128 H Random Glucose Lactic Acid Lactic Acid F/U @ 2Hr Calcium 7.1 L Phosphorus Magnesium Total Bilirubin Direct Bilirubin AST ALT Alkaline Phosphatase Ammonia Troponin I High Sens B-Natriuretic Peptide Total Protein Albumin Lipase 25-OH Vitamin D Total 24.3 L Procalcitonin TSH Urine Color Urine Appearance Urine pH Ur Specific [place] Urine Protein Urine Glucose (UA) Urine Ketones Urine Blood Urine Nitrite Ur Leukocyte Esterase Urine RBC Urine WBC Ur Squamous Epith Cells Urine Bacteria Hyaline Casts Nasal Screen MRSA (PCR) Nasal S. aureus Screen Nasal MRSA/S.aureus Interp Stool Occult Blood Stl C. cayetanensis PCR Stool Rotavirus A PCR Stl Adenov F 40/41 PCR Stool Astrovirus (PCR) Stool Campylobacter PCR Stool Cryptosporidium PCR Stl Sh Tox Pr E STEC PCR Stool E coli O157 PCR Stl Enterotoxigenic E PCR Stool EPEC (PCR) Stool EAEC (PCR) Stl E. histolytica PCR Stool Giardia Lamblia PCR Stl P. shigelloides PCR Stool Salmonella PCR Stool Sapovirus (PCR) Stl Shigella/EIEC PCR St Y.enterocolitica PCR Stool Vibrio (PCR) Stl Vibrio cholerae PCR Stl Norovirus GI/GII PCR Random Vancomycin Valproic Acid Carbamazepine Lamotrigine Clozapine Norclozapine Respiratory Panel Ashley Adenovirus (Rapid PCR) B.pert (TEM-PCR) B.parapertussis DNA PCR C. pneumoniae DNA (PCR) Coronavirus OC43 (PCR) Coronavirus HKU1 (PCR) Coronavirus 229E (PCR) Coronavirus NL63 (PCR) Hepatitis A IgM Ab Hep Bs Antigen Hepatitis C Ab (EIA) Human Metapneumovir PCR Influenza A (RT-PCR) Influenza Type A (PCR) Influenza B (RT-PCR) Influenza Type B (PCR) M. pneumoniae (PCR) Parainfluenza 1 (PCR) Parainfluenza 2 (PCR) Parainfluenza 3 (PCR) Parainfluenza 4 (PCR) RSV (PCR) RSV RNA Qual (PCR) Entero/Rhino (PCR) SARS-CoV-2 RNA (RT-PCR) Blood Type Antibody Screen 05/29/23 05/29/23 05/29/23 04:19 04:31 04:39 WBC 6.4 RBC 3.46 L Hgb 10.8 L Hct 32.0 L MCV 92.5 MCH 31.2 MCHC 33.8 RDW 13.6 Plt Count 87 L D MPV 10.4 Immature Gran % (Auto) Neut % (Auto) Lymph % (Auto) [place] % (Auto) Eos % (Auto) Baso % (Auto) Lymph # (Auto) [place] # (Auto) Eos # (Auto) Baso # (Auto) Abs Immat Gran (auto) Absolute Neuts (auto) Absolute Nucleated RBC 0.000 Nucleated RBC % (auto) 0.0 Neutrophils % (Manual) 45 Band Neutrophils % 41 H Lymphocytes % (Manual) 11 L Atypical Lymphs % (Man) Monocytes % (Manual) 2 Eosinophils % (Manual) Metamyelocytes % 1 Myelocytes % Promyelocytes % Abs Neuts (Manual) 5.5 Lymphocytes # (Manual) 0.7 L Atyp Lymphs # (Manual) Monocytes # (Manual) 0.1 Eosinophils # (Manual) Metamyelocytes # 0.1 Myelocytes # Promyelocytes # Nucleated RBCs Smudge Cells Toxic Granulation Toxic Vacuolation PRESENT Platelet Estimate DECREASED Large Platelets PRESENT Plt Morphology Comment NORMAL RBC Morphology NORMAL Polychromasia Hypochromasia Basophilic Stippling Spherocytes Tear Drop Cells Ovalocytes Rosa-Munday Bodies [place] Cells Acanthocytes (Spur) Schistocytes PT INR aPTT Heparin Protocol D-Dimer High Sensitivty O2 Saturation 90.0 ABG pH at Pt Temp 7.41 ABG pCO2 at Pt Temp 36 ABG pO2 at Pt Temp 58 L ABG HCO3 23 ABG Base Excess (Actual) -0.7 VBG pH VBG pCO2 VBG pO2 VBG HCO3 VBG O2 Saturation VBG Base Excess Sodium 137 Potassium 4.1 D Chloride 107 Carbon Dioxide 23 Anion Gap 11 L BUN 12 Creatinine 0.68 Estim Creat Clear Calc 106.3 Estimated GFR > 60 POC Glucose 123 H Random Glucose 125 H Lactic Acid 0.9 Lactic Acid F/U @ 2Hr Calcium 7.3 L Phosphorus Magnesium Total Bilirubin 0.4 Direct Bilirubin AST 166 H ALT 101 H Alkaline Phosphatase 58 Ammonia Troponin I High Sens B-Natriuretic Peptide 241 H Total Protein 5.5 L Albumin 3.2 L Lipase 25-OH Vitamin D Total Procalcitonin 0.90 TSH Urine Color Urine Appearance Urine pH Ur Specific [place] Urine Protein Urine Glucose (UA) Urine Ketones Urine Blood Urine Nitrite Ur Leukocyte Esterase Urine RBC Urine WBC Ur Squamous Epith Cells Urine Bacteria Hyaline Casts Nasal Screen MRSA (PCR) Nasal S. aureus Screen Nasal MRSA/S.aureus Interp Stool Occult Blood Stl C. cayetanensis PCR Stool Rotavirus A PCR Stl Adenov F 40/41 PCR Stool Astrovirus (PCR) Stool Campylobacter PCR Stool Cryptosporidium PCR Stl Sh Tox Pr E STEC PCR Stool E coli O157 PCR Stl Enterotoxigenic E PCR Stool EPEC (PCR) Stool EAEC (PCR) Stl E. histolytica PCR Stool Giardia Lamblia PCR Stl P. shigelloides PCR Stool Salmonella PCR Stool Sapovirus (PCR) Stl Shigella/EIEC PCR St Y.enterocolitica PCR Stool Vibrio (PCR) Stl Vibrio cholerae PCR Stl Norovirus GI/GII PCR Random Vancomycin Valproic Acid Carbamazepine Lamotrigine Clozapine Norclozapine Respiratory Panel Ashley Adenovirus (Rapid PCR) B.pert (TEM-PCR) B.parapertussis DNA PCR C. pneumoniae DNA (PCR) Coronavirus OC43 (PCR) Coronavirus HKU1 (PCR) Coronavirus 229E (PCR) Coronavirus NL63 (PCR) Hepatitis A IgM Ab Hep Bs Antigen Hepatitis C Ab (EIA) Human Metapneumovir PCR Influenza A (RT-PCR) Influenza Type A (PCR) Influenza B (RT-PCR) Influenza Type B (PCR) M. pneumoniae (PCR) Parainfluenza 1 (PCR) Parainfluenza 2 (PCR) Parainfluenza 3 (PCR) Parainfluenza 4 (PCR) RSV (PCR) RSV RNA Qual (PCR) Entero/Rhino (PCR) SARS-CoV-2 RNA (RT-PCR) Blood Type Antibody Screen 05/29/23 05/29/23 05/29/23 06:33 07:37 09:00 WBC 7.4 RBC 3.49 L Hgb 10.8 L Hct 32.7 L MCV 93.7 MCH 30.9 MCHC 33.0 RDW 13.6 Plt Count 94 L MPV 11.4 Immature Gran % (Auto) 0.9 H Neut % (Auto) 79.0 H Lymph % (Auto) 13.2 L [place] % (Auto) 5.1 Eos % (Auto) 1.5 Baso % (Auto) 0.3 Lymph # (Auto) 1.0 L [place] # (Auto) 0.4 Eos # (Auto) 0.1 Baso # (Auto) 0.0 Abs Immat Gran (auto) 0.07 H Absolute Neuts (auto) 5.8 Absolute Nucleated RBC 0.000 Nucleated RBC % (auto) 0.0 Neutrophils % (Manual) Band Neutrophils % Lymphocytes % (Manual) Atypical Lymphs % (Man) Monocytes % (Manual) Eosinophils % (Manual) Metamyelocytes % Myelocytes % Promyelocytes % Abs Neuts (Manual) Lymphocytes # (Manual) Atyp Lymphs # (Manual) Monocytes # (Manual) Eosinophils # (Manual) Metamyelocytes # Myelocytes # Promyelocytes # Nucleated RBCs Smudge Cells Toxic Granulation Toxic Vacuolation Platelet Estimate Large Platelets Plt Morphology Comment RBC Morphology Polychromasia Hypochromasia Basophilic Stippling Spherocytes Tear Drop Cells Ovalocytes Rosa-Munday Bodies Jyoti Cells Acanthocytes (Spur) Schistocytes PT INR aPTT Heparin Protocol D-Dimer High Sensitivty O2 Saturation ABG pH at Pt Temp ABG pCO2 at Pt Temp ABG pO2 at Pt Temp ABG HCO3 ABG Base Excess (Actual) VBG pH VBG pCO2 VBG pO2 VBG HCO3 VBG O2 Saturation VBG Base Excess Sodium 138 Potassium 3.4 Chloride 105 Carbon Dioxide 24 Anion Gap 12 BUN 12 Creatinine 0.70 Estim Creat Clear Calc 103.4 Estimated GFR > 60 POC Glucose 156 H Random Glucose 166 H Lactic Acid Lactic Acid F/U @ 2Hr Calcium 7.3 L Phosphorus Magnesium Total Bilirubin 0.4 Direct Bilirubin 0.3 AST 168 H ALT 103 H Alkaline Phosphatase 61 Ammonia Troponin I High Sens B-Natriuretic Peptide 184 H Total Protein 5.6 L Albumin 3.2 L Lipase 25-OH Vitamin D Total Procalcitonin TSH Urine Color Urine Appearance Urine pH Ur Specific [place] Urine Protein Urine Glucose (UA) Urine Ketones Urine Blood Urine Nitrite Ur Leukocyte Esterase Urine RBC Urine WBC Ur Squamous Epith Cells Urine Bacteria Hyaline Casts Nasal Screen MRSA (PCR) Nasal S. aureus Screen Nasal MRSA/S.aureus Interp Stool Occult Blood Stl C. cayetanensis PCR Stool Rotavirus A PCR Stl Adenov F 40/41 PCR Stool Astrovirus (PCR) Stool Campylobacter PCR Stool Cryptosporidium PCR Stl Sh Tox Pr E STEC PCR Stool E coli O157 PCR Stl Enterotoxigenic E PCR Stool EPEC (PCR) Stool EAEC (PCR) Stl E. histolytica PCR Stool Giardia Lamblia PCR Stl P. shigelloides PCR Stool Salmonella PCR Stool Sapovirus (PCR) Stl Shigella/EIEC PCR St Y.enterocolitica PCR Stool Vibrio (PCR) Stl Vibrio cholerae PCR Stl Norovirus GI/GII PCR Random Vancomycin Valproic Acid Carbamazepine Lamotrigine Clozapine Norclozapine Respiratory Panel Ashley See Note Adenovirus (Rapid PCR) Not Detected B.pert (TEM-PCR) Not Detected B.parapertussis DNA PCR Not Detected C. pneumoniae DNA (PCR) Not Detected Coronavirus OC43 (PCR) Not Detected Coronavirus HKU1 (PCR) Not Detected Coronavirus 229E (PCR) Not Detected Coronavirus NL63 (PCR) Not Detected Hepatitis A IgM Ab Hep Bs Antigen Hepatitis C Ab (EIA) Human Metapneumovir PCR Not Detected Influenza A (RT-PCR) Not Detected Influenza Type A (PCR) Influenza B (RT-PCR) Not Detected Influenza Type B (PCR) M. pneumoniae (PCR) Not Detected Parainfluenza 1 (PCR) Not Detected Parainfluenza 2 (PCR) Not Detected Parainfluenza 3 (PCR) Not Detected Parainfluenza 4 (PCR) Not Detected RSV (PCR) Not Detected RSV RNA Qual (PCR) Entero/Rhino (PCR) Not Detected SARS-CoV-2 RNA (RT-PCR) Not Detected Blood Type Antibody Screen 05/29/23 05/29/23 05/29/23 11:06 11:40 11:49 WBC RBC Hgb Hct MCV MCH MCHC RDW Plt Count MPV Immature Gran % (Auto) Neut % (Auto) Lymph % (Auto) [place] % (Auto) Eos % (Auto) Baso % (Auto) Lymph # (Auto) [place] # (Auto) Eos # (Auto) Baso # (Auto) Abs Immat Gran (auto) Absolute Neuts (auto) Absolute Nucleated RBC Nucleated RBC % (auto) Neutrophils % (Manual) Band Neutrophils % Lymphocytes % (Manual) Atypical Lymphs % (Man) Monocytes % (Manual) Eosinophils % (Manual) Metamyelocytes % Myelocytes % Promyelocytes % Abs Neuts (Manual) Lymphocytes # (Manual) Atyp Lymphs # (Manual) Monocytes # (Manual) Eosinophils # (Manual) Metamyelocytes # Myelocytes # Promyelocytes # Nucleated RBCs Smudge Cells Toxic Granulation Toxic Vacuolation Platelet Estimate Large Platelets Plt Morphology Comment RBC Morphology Polychromasia Hypochromasia Basophilic Stippling Spherocytes Tear Drop Cells Ovalocytes Rosa-Munday Bodies Jyoti Cells Acanthocytes (Spur) Schistocytes PT INR aPTT Heparin Protocol D-Dimer High Sensitivty 2947 O2 Saturation 90.0 ABG pH at Pt Temp 7.45 ABG pCO2 at Pt Temp 40 ABG pO2 at Pt Temp 58 L ABG HCO3 28 H ABG Base Excess (Actual) 4.3 VBG pH VBG pCO2 VBG pO2 VBG HCO3 VBG O2 Saturation VBG Base Excess Sodium Potassium Chloride Carbon Dioxide Anion Gap BUN Creatinine Estim Creat Clear Calc Estimated GFR POC Glucose 165 H Random Glucose Lactic Acid Lactic Acid F/U @ 2Hr Calcium Phosphorus Magnesium Total Bilirubin Direct Bilirubin AST ALT Alkaline Phosphatase Ammonia Troponin I High Sens B-Natriuretic Peptide Total Protein Albumin Lipase 25-OH Vitamin D Total Procalcitonin TSH Urine Color Urine Appearance Urine pH Ur Specific [place] Urine Protein Urine Glucose (UA) Urine Ketones Urine Blood Urine Nitrite Ur Leukocyte Esterase Urine RBC Urine WBC Ur Squamous Epith Cells Urine Bacteria Hyaline Casts Nasal Screen MRSA (PCR) Nasal S. aureus Screen Nasal MRSA/S.aureus Interp Stool Occult Blood Stl C. cayetanensis PCR Stool Rotavirus A PCR Stl Adenov F 40/41 PCR Stool Astrovirus (PCR) Stool Campylobacter PCR Stool Cryptosporidium PCR Stl Sh Tox Pr E STEC PCR Stool E coli O157 PCR Stl Enterotoxigenic E PCR Stool EPEC (PCR) Stool EAEC (PCR) Stl E. histolytica PCR Stool Giardia Lamblia PCR Stl P. shigelloides PCR Stool Salmonella PCR Stool Sapovirus (PCR) Stl Shigella/EIEC PCR St Y.enterocolitica PCR Stool Vibrio (PCR) Stl Vibrio cholerae PCR Stl Norovirus GI/GII PCR Random Vancomycin Valproic Acid Carbamazepine Lamotrigine Clozapine Norclozapine Respiratory Panel Ashley Adenovirus (Rapid PCR) B.pert (TEM-PCR) B.parapertussis DNA PCR C. pneumoniae DNA (PCR) Coronavirus OC43 (PCR) Coronavirus HKU1 (PCR) Coronavirus 229E (PCR) Coronavirus NL63 (PCR) Hepatitis A IgM Ab Hep Bs Antigen Hepatitis C Ab (EIA) Human Metapneumovir PCR Influenza A (RT-PCR) Influenza Type A (PCR) Influenza B (RT-PCR) Influenza Type B (PCR) M. pneumoniae (PCR) Parainfluenza 1 (PCR) Parainfluenza 2 (PCR) Parainfluenza 3 (PCR) Parainfluenza 4 (PCR) RSV (PCR) RSV RNA Qual (PCR) Entero/Rhino (PCR) SARS-CoV-2 RNA (RT-PCR) Blood Type Antibody Screen 05/29/23 05/29/23 05/29/23 13:55 16:17 20:57 WBC RBC Hgb Hct MCV MCH MCHC RDW Plt Count MPV Immature Gran % (Auto) Neut % (Auto) Lymph % (Auto) [place] % (Auto) Eos % (Auto) Baso % (Auto) Lymph # (Auto) [place] # (Auto) Eos # (Auto) Baso # (Auto) Abs Immat Gran (auto) Absolute Neuts (auto) Absolute Nucleated RBC Nucleated RBC % (auto) Neutrophils % (Manual) Band Neutrophils % Lymphocytes % (Manual) Atypical Lymphs % (Man) Monocytes % (Manual) Eosinophils % (Manual) Metamyelocytes % Myelocytes % Promyelocytes % Abs Neuts (Manual) Lymphocytes # (Manual) Atyp Lymphs # (Manual) Monocytes # (Manual) Eosinophils # (Manual) Metamyelocytes # Myelocytes # Promyelocytes # Nucleated RBCs Smudge Cells Toxic Granulation Toxic Vacuolation Platelet Estimate Large Platelets Plt Morphology Comment RBC Morphology Polychromasia Hypochromasia Basophilic Stippling Spherocytes Tear Drop Cells Ovalocytes Rosa-Munday Bodies Jyoti Cells Acanthocytes (Spur) Schistocytes PT INR aPTT Heparin Protocol D-Dimer High Sensitivty O2 Saturation ABG pH at Pt Temp ABG pCO2 at Pt Temp ABG pO2 at Pt Temp ABG HCO3 ABG Base Excess (Actual) VBG pH VBG pCO2 VBG pO2 VBG HCO3 VBG O2 Saturation VBG Base Excess Sodium Potassium Chloride Carbon Dioxide Anion Gap BUN Creatinine Estim Creat Clear Calc Estimated GFR POC Glucose 158 H 150 H Random Glucose Lactic Acid Lactic Acid F/U @ 2Hr Calcium Phosphorus Magnesium Total Bilirubin Direct Bilirubin AST ALT Alkaline Phosphatase Ammonia Troponin I High Sens 134.1 H* D B-Natriuretic Peptide Total Protein Albumin Lipase 25-OH Vitamin D Total Procalcitonin TSH Urine Color Urine Appearance Urine pH Ur Specific [place] Urine Protein Urine Glucose (UA) Urine Ketones Urine Blood Urine Nitrite Ur Leukocyte Esterase Urine RBC Urine WBC Ur Squamous Epith Cells Urine Bacteria Hyaline Casts Nasal Screen MRSA (PCR) Nasal S. aureus Screen Nasal MRSA/S.aureus Interp Stool Occult Blood Stl C. cayetanensis PCR Stool Rotavirus A PCR Stl Adenov F 40/41 PCR Stool Astrovirus (PCR) Stool Campylobacter PCR Stool Cryptosporidium PCR Stl Sh Tox Pr E STEC PCR Stool E coli O157 PCR Stl Enterotoxigenic E PCR Stool EPEC (PCR) Stool EAEC (PCR) Stl E. histolytica PCR Stool Giardia Lamblia PCR Stl P. shigelloides PCR Stool Salmonella PCR Stool Sapovirus (PCR) Stl Shigella/EIEC PCR St Y.enterocolitica PCR Stool Vibrio (PCR) Stl Vibrio cholerae PCR Stl Norovirus GI/GII PCR Random Vancomycin Valproic Acid Carbamazepine Lamotrigine Clozapine Norclozapine Respiratory Panel Ashley Adenovirus (Rapid PCR) B.pert (TEM-PCR) B.parapertussis DNA PCR C. pneumoniae DNA (PCR) Coronavirus OC43 (PCR) Coronavirus HKU1 (PCR) Coronavirus 229E (PCR) Coronavirus NL63 (PCR) Hepatitis A IgM Ab Hep Bs Antigen Hepatitis C Ab (EIA) Human Metapneumovir PCR Influenza A (RT-PCR) Influenza Type A (PCR) Influenza B (RT-PCR) Influenza Type B (PCR) M. pneumoniae (PCR) Parainfluenza 1 (PCR) Parainfluenza 2 (PCR) Parainfluenza 3 (PCR) Parainfluenza 4 (PCR) RSV (PCR) RSV RNA Qual (PCR) Entero/Rhino (PCR) SARS-CoV-2 RNA (RT-PCR) Blood Type Antibody Screen 05/30/23 05/30/23 05/30/23 04:36 06:11 06:43 WBC 11.7 H RBC 4.05 L Hgb 12.6 Hct 36.9 L MCV 91.1 MCH 31.1 MCHC 34.1 RDW 13.3 Plt Count 113 L MPV 11.3 Immature Gran % (Auto) 1.2 H Neut % (Auto) 84.7 H Lymph % (Auto) 8.1 L [place] % (Auto) 5.1 Eos % (Auto) 0.3 Baso % (Auto) 0.6 Lymph # (Auto) 1.0 L [place] # (Auto) 0.6 Eos # (Auto) 0.0 Baso # (Auto) 0.1 Abs Immat Gran (auto) 0.14 H Absolute Neuts (auto) 9.9 H Absolute Nucleated RBC 0.000 Nucleated RBC % (auto) 0.0 Neutrophils % (Manual) Band Neutrophils % Lymphocytes % (Manual) Atypical Lymphs % (Man) Monocytes % (Manual) Eosinophils % (Manual) Metamyelocytes % Myelocytes % Promyelocytes % Abs Neuts (Manual) Lymphocytes # (Manual) Atyp Lymphs # (Manual) Monocytes # (Manual) Eosinophils # (Manual) Metamyelocytes # Myelocytes # Promyelocytes # Nucleated RBCs Smudge Cells Toxic Granulation Toxic Vacuolation Platelet Estimate Large Platelets Plt Morphology Comment RBC Morphology Polychromasia Hypochromasia Basophilic Stippling Spherocytes Tear Drop Cells Ovalocytes Rosa-Munday Bodies Jyoti Cells Acanthocytes (Spur) Schistocytes PT INR aPTT Heparin Protocol D-Dimer High Sensitivty O2 Saturation 90.0 ABG pH at Pt Temp 7.50 H ABG pCO2 at Pt Temp 46 H ABG pO2 at Pt Temp 62 L ABG HCO3 36 H ABG Base Excess (Actual) 11.7 VBG pH VBG pCO2 VBG pO2 VBG HCO3 VBG O2 Saturation VBG Base Excess Sodium 141 Potassium 2.4 L* D Chloride 94 L Carbon Dioxide 35 H Anion Gap 14 BUN 16 Creatinine 0.80 Estim Creat Clear Calc 90.4 Estimated GFR > 60 POC Glucose 155 H Random Glucose 146 H Lactic Acid 1.7 Lactic Acid F/U @ 2Hr Calcium 7.8 L D Phosphorus Magnesium Total Bilirubin 0.6 Direct Bilirubin AST 145 H ALT 109 H Alkaline Phosphatase 85 Ammonia 39 Troponin I High Sens 468.6 H* D B-Natriuretic Peptide Total Protein Albumin Lipase 25-OH Vitamin D Total Procalcitonin TSH Urine Color Urine Appearance Urine pH Ur Specific [place] Urine Protein Urine Glucose (UA) Urine Ketones Urine Blood Urine Nitrite Ur Leukocyte Esterase Urine RBC Urine WBC Ur Squamous Epith Cells Urine Bacteria Hyaline Casts Nasal Screen MRSA (PCR) Nasal S. aureus Screen Nasal MRSA/S.aureus Interp Stool Occult Blood Stl C. cayetanensis PCR Stool Rotavirus A PCR Stl Adenov F 40/ PCR Stool Astrovirus (PCR) Stool Campylobacter PCR Stool Cryptosporidium PCR Stl Sh Tox Pr E STEC PCR Stool E coli O157 PCR Stl Enterotoxigenic E PCR Stool EPEC (PCR) Stool EAEC (PCR) Stl E. histolytica PCR Stool Giardia Lamblia PCR Stl P. shigelloides PCR Stool Salmonella PCR Stool Sapovirus (PCR) Stl Shigella/EIEC PCR St Y.enterocolitica PCR Stool Vibrio (PCR) Stl Vibrio cholerae PCR Stl Norovirus GI/GII PCR Random Vancomycin Valproic Acid Carbamazepine Lamotrigine Clozapine Norclozapine Respiratory Panel Ashley Adenovirus (Rapid PCR) B.pert (TEM-PCR) B.parapertussis DNA PCR C. pneumoniae DNA (PCR) Coronavirus OC43 (PCR) Coronavirus HKU1 (PCR) Coronavirus 229E (PCR) Coronavirus NL63 (PCR) Hepatitis A IgM Ab Hep Bs Antigen Hepatitis C Ab (EIA) Human Metapneumovir PCR Influenza A (RT-PCR) Influenza Type A (PCR) Influenza B (RT-PCR) Influenza Type B (PCR) M. pneumoniae (PCR) Parainfluenza 1 (PCR) Parainfluenza 2 (PCR) Parainfluenza 3 (PCR) Parainfluenza 4 (PCR) RSV (PCR) RSV RNA Qual (PCR) Entero/Rhino (PCR) SARS-CoV-2 RNA (RT-PCR) Blood Type Antibody Screen 05/30/23 05/30/23 05/30/23 06:43 11:08 12:23 WBC RBC Hgb Hct MCV MCH MCHC RDW Plt Count MPV Immature Gran % (Auto) Neut % (Auto) Lymph % (Auto) [place] % (Auto) Eos % (Auto) Baso % (Auto) Lymph # (Auto) [place] # (Auto) Eos # (Auto) Baso # (Auto) Abs Immat Gran (auto) Absolute Neuts (auto) Absolute Nucleated RBC Nucleated RBC % (auto) Neutrophils % (Manual) Band Neutrophils % Lymphocytes % (Manual) Atypical Lymphs % (Man) Monocytes % (Manual) Eosinophils % (Manual) Metamyelocytes % Myelocytes % Promyelocytes % Abs Neuts (Manual) Lymphocytes # (Manual) Atyp Lymphs # (Manual) Monocytes # (Manual) Eosinophils # (Manual) Metamyelocytes # Myelocytes # Promyelocytes # Nucleated RBCs Smudge Cells Toxic Granulation Toxic Vacuolation Platelet Estimate Large Platelets Plt Morphology Comment RBC Morphology Polychromasia Hypochromasia Basophilic Stippling Spherocytes Tear Drop Cells Ovalocytes Rosa-Munday Bodies Jyoti Cells Acanthocytes (Spur) Schistocytes PT INR aPTT Heparin Protocol D-Dimer High Sensitivty O2 Saturation ABG pH at Pt Temp ABG pCO2 at Pt Temp ABG pO2 at Pt Temp ABG HCO3 ABG Base Excess (Actual) VBG pH VBG pCO2 VBG pO2 VBG HCO3 VBG O2 Saturation VBG Base Excess Sodium Potassium Chloride Carbon Dioxide Anion Gap BUN Creatinine Estim Creat Clear Calc Estimated GFR POC Glucose 158 H 175 H Random Glucose Lactic Acid Lactic Acid F/U @ 2Hr Calcium Phosphorus Magnesium Total Bilirubin Direct Bilirubin AST ALT Alkaline Phosphatase Ammonia Troponin I High Sens 496.3 H* B-Natriuretic Peptide 160 H Total Protein 6.4 L Albumin 3.5 Lipase 25-OH Vitamin D Total Procalcitonin TSH Urine Color Urine Appearance Urine pH Ur Specific [place] Urine Protein Urine Glucose (UA) Urine Ketones Urine Blood Urine Nitrite Ur Leukocyte Esterase Urine RBC Urine WBC Ur Squamous Epith Cells Urine Bacteria Hyaline Casts Nasal Screen MRSA (PCR) Nasal S. aureus Screen Nasal MRSA/S.aureus Interp Stool Occult Blood Stl C. cayetanensis PCR Stool Rotavirus A PCR Stl Adenov F 40/41 PCR Stool Astrovirus (PCR) Stool Campylobacter PCR Stool Cryptosporidium PCR Stl Sh Tox Pr E STEC PCR Stool E coli O157 PCR Stl Enterotoxigenic E PCR Stool EPEC (PCR) Stool EAEC (PCR) Stl E. histolytica PCR Stool Giardia Lamblia PCR Stl P. shigelloides PCR Stool Salmonella PCR Stool Sapovirus (PCR) Stl Shigella/EIEC PCR St Y.enterocolitica PCR Stool Vibrio (PCR) Stl Vibrio cholerae PCR Stl Norovirus GI/GII PCR Random Vancomycin Valproic Acid 45.5 L Carbamazepine 9.6 Lamotrigine Clozapine 869 Norclozapine 225 Respiratory Panel Ashley Adenovirus (Rapid PCR) B.pert (TEM-PCR) B.parapertussis DNA PCR C. pneumoniae DNA (PCR) Coronavirus OC43 (PCR) Coronavirus HKU1 (PCR) Coronavirus 229E (PCR) Coronavirus NL63 (PCR) Hepatitis A IgM Ab Hep Bs Antigen Hepatitis C Ab (EIA) Human Metapneumovir PCR Influenza A (RT-PCR) Influenza Type A (PCR) Influenza B (RT-PCR) Influenza Type B (PCR) M. pneumoniae (PCR) Parainfluenza 1 (PCR) Parainfluenza 2 (PCR) Parainfluenza 3 (PCR) Parainfluenza 4 (PCR) RSV (PCR) RSV RNA Qual (PCR) Entero/Rhino (PCR) SARS-CoV-2 RNA (RT-PCR) Blood Type Antibody Screen 05/30/23 05/30/23 05/30/23 13:47 17:52 23:44 WBC RBC Hgb Hct MCV MCH MCHC RDW Plt Count MPV Immature Gran % (Auto) Neut % (Auto) Lymph % (Auto) [place] % (Auto) Eos % (Auto) Baso % (Auto) Lymph # (Auto) [place] # (Auto) Eos # (Auto) Baso # (Auto) Abs Immat Gran (auto) Absolute Neuts (auto) Absolute Nucleated RBC Nucleated RBC % (auto) Neutrophils % (Manual) Band Neutrophils % Lymphocytes % (Manual) Atypical Lymphs % (Man) Monocytes % (Manual) Eosinophils % (Manual) Metamyelocytes % Myelocytes % Promyelocytes % Abs Neuts (Manual) Lymphocytes # (Manual) Atyp Lymphs # (Manual) Monocytes # (Manual) Eosinophils # (Manual) Metamyelocytes # Myelocytes # Promyelocytes # Nucleated RBCs Smudge Cells Toxic Granulation Toxic Vacuolation Platelet Estimate Large Platelets Plt Morphology Comment RBC Morphology Polychromasia Hypochromasia Basophilic Stippling Spherocytes Tear Drop Cells Ovalocytes Rosa-Munday Bodies [place] Cells Acanthocytes (Spur) Schistocytes PT INR aPTT Heparin Protocol D-Dimer High Sensitivty O2 Saturation ABG pH at Pt Temp ABG pCO2 at Pt Temp ABG pO2 at Pt Temp ABG HCO3 ABG Base Excess (Actual) VBG pH VBG pCO2 VBG pO2 VBG HCO3 VBG O2 Saturation VBG Base Excess Sodium 139 Potassium 4.0 D Chloride 97 Carbon Dioxide 31 H Anion Gap 15 BUN 22 H Creatinine 0.95 Estim Creat Clear Calc 76.2 Estimated GFR 59 POC Glucose 215 H 257 H Random Glucose 182 H Lactic Acid Lactic Acid F/U @ 2Hr Calcium 7.8 L Phosphorus Magnesium Total Bilirubin Direct Bilirubin AST ALT Alkaline Phosphatase Ammonia Troponin I High Sens B-Natriuretic Peptide Total Protein Albumin Lipase 25-OH Vitamin D Total Procalcitonin TSH Urine Color Urine Appearance Urine pH Ur Specific [place] Urine Protein Urine Glucose (UA) Urine Ketones Urine Blood Urine Nitrite Ur Leukocyte Esterase Urine RBC Urine WBC Ur Squamous Epith Cells Urine Bacteria Hyaline Casts Nasal Screen MRSA (PCR) Nasal S. aureus Screen Nasal MRSA/S.aureus Interp Stool Occult Blood Stl C. cayetanensis PCR Stool Rotavirus A PCR Stl Adenov F 40/41 PCR Stool Astrovirus (PCR) Stool Campylobacter PCR Stool Cryptosporidium PCR Stl Sh Tox Pr E STEC PCR Stool E coli O157 PCR Stl Enterotoxigenic E PCR Stool EPEC (PCR) Stool EAEC (PCR) Stl E. histolytica PCR Stool Giardia Lamblia PCR Stl P. shigelloides PCR Stool Salmonella PCR Stool Sapovirus (PCR) Stl Shigella/EIEC PCR St Y.enterocolitica PCR Stool Vibrio (PCR) Stl Vibrio cholerae PCR Stl Norovirus GI/GII PCR Random Vancomycin Valproic Acid Carbamazepine Lamotrigine Clozapine Norclozapine Respiratory Panel Ashley Adenovirus (Rapid PCR) B.pert (TEM-PCR) B.parapertussis DNA PCR C. pneumoniae DNA (PCR) Coronavirus OC43 (PCR) Coronavirus HKU1 (PCR) Coronavirus 229E (PCR) Coronavirus NL63 (PCR) Hepatitis A IgM Ab Hep Bs Antigen Hepatitis C Ab (EIA) Human Metapneumovir PCR Influenza A (RT-PCR) Influenza Type A (PCR) Influenza B (RT-PCR) Influenza Type B (PCR) M. pneumoniae (PCR) Parainfluenza 1 (PCR) Parainfluenza 2 (PCR) Parainfluenza 3 (PCR) Parainfluenza 4 (PCR) RSV (PCR) RSV RNA Qual (PCR) Entero/Rhino (PCR) SARS-CoV-2 RNA (RT-PCR) Blood Type Antibody Screen 05/31/23 05/31/23 05/31/23 05:02 11:11 14:04 WBC 14.9 H RBC 3.78 L Hgb 11.8 L Hct 34.7 L MCV 91.8 MCH 31.2 MCHC 34.0 RDW 13.5 Plt Count 116 L MPV 12.5 H Immature Gran % (Auto) 1.4 H Neut % (Auto) 84.2 H Lymph % (Auto) 8.7 L [place] % (Auto) 4.8 Eos % (Auto) 0.2 Baso % (Auto) 0.7 Lymph # (Auto) 1.3 [place] # (Auto) 0.7 Eos # (Auto) 0.0 Baso # (Auto) 0.1 Abs Immat Gran (auto) 0.21 H Absolute Neuts (auto) 12.6 H Absolute Nucleated RBC 0.030 H Nucleated RBC % (auto) 0.2 Neutrophils % (Manual) Band Neutrophils % Lymphocytes % (Manual) Atypical Lymphs % (Man) Monocytes % (Manual) Eosinophils % (Manual) Metamyelocytes % Myelocytes % Promyelocytes % Abs Neuts (Manual) Lymphocytes # (Manual) Atyp Lymphs # (Manual) Monocytes # (Manual) Eosinophils # (Manual) Metamyelocytes # Myelocytes # Promyelocytes # Nucleated RBCs Smudge Cells Toxic Granulation Toxic Vacuolation Platelet Estimate Large Platelets Plt Morphology Comment RBC Morphology Polychromasia Hypochromasia Basophilic Stippling Spherocytes Tear Drop Cells Ovalocytes Rosa-Munday Bodies [place] Cells Acanthocytes (Spur) Schistocytes PT INR aPTT Heparin Protocol D-Dimer High Sensitivty O2 Saturation ABG pH at Pt Temp ABG pCO2 at Pt Temp ABG pO2 at Pt Temp ABG HCO3 ABG Base Excess (Actual) VBG pH 7.50 H VBG pCO2 42 VBG pO2 70 VBG HCO3 34 H VBG O2 Saturation 94.0 VBG Base Excess 10.0 Sodium 137 135 Potassium 2.9 L* D 3.4 Chloride 95 L 95 L Carbon Dioxide 30 H 29 Anion Gap 15 14 BUN 25 H 21 H Creatinine 0.94 0.86 Estim Creat Clear Calc 76.9 84.1 Estimated GFR 60 > 60 POC Glucose 193 H Random Glucose 247 H 228 H Lactic Acid Lactic Acid F/U @ 2Hr Calcium 8.3 L D 8.3 L Phosphorus 1.7 L Magnesium 2.5 Total Bilirubin 0.8 Direct Bilirubin AST 189 H ALT 137 H Alkaline Phosphatase 101 Ammonia Troponin I High Sens B-Natriuretic Peptide Total Protein 6.2 L Albumin 3.2 L Lipase 25-OH Vitamin D Total Procalcitonin TSH Urine Color Urine Appearance Urine pH Ur Specific [place] Urine Protein Urine Glucose (UA) Urine Ketones Urine Blood Urine Nitrite Ur Leukocyte Esterase Urine RBC Urine WBC Ur Squamous Epith Cells Urine Bacteria Hyaline Casts Nasal Screen MRSA (PCR) Nasal S. aureus Screen Nasal MRSA/S.aureus Interp Stool Occult Blood Stl C. cayetanensis PCR Stool Rotavirus A PCR Stl Adenov F 40/ PCR Stool Astrovirus (PCR) Stool Campylobacter PCR Stool Cryptosporidium PCR Stl Sh Tox Pr E STEC PCR Stool E coli O157 PCR Stl Enterotoxigenic E PCR Stool EPEC (PCR) Stool EAEC (PCR) Stl E. histolytica PCR Stool Giardia Lamblia PCR Stl P. shigelloides PCR Stool Salmonella PCR Stool Sapovirus (PCR) Stl Shigella/EIEC PCR St Y.enterocolitica PCR Stool Vibrio (PCR) Stl Vibrio cholerae PCR Stl Norovirus GI/GII PCR Random Vancomycin Valproic Acid Carbamazepine Lamotrigine Clozapine Norclozapine Respiratory Panel Ashley Adenovirus (Rapid PCR) B.pert (TEM-PCR) B.parapertussis DNA PCR C. pneumoniae DNA (PCR) Coronavirus OC43 (PCR) Coronavirus HKU1 (PCR) Coronavirus 229E (PCR) Coronavirus NL63 (PCR) Hepatitis A IgM Ab Hep Bs Antigen Hepatitis C Ab (EIA) Human Metapneumovir PCR Influenza A (RT-PCR) Influenza Type A (PCR) Influenza B (RT-PCR) Influenza Type B (PCR) M. pneumoniae (PCR) Parainfluenza 1 (PCR) Parainfluenza 2 (PCR) Parainfluenza 3 (PCR) Parainfluenza 4 (PCR) RSV (PCR) RSV RNA Qual (PCR) Entero/Rhino (PCR) SARS-CoV-2 RNA (RT-PCR) Blood Type Antibody Screen 05/31/23 05/31/23 06/01/23 17:26 23:46 05:08 WBC 13.6 H RBC 3.67 L Hgb 11.4 L Hct 33.7 L MCV 91.8 MCH 31.1 MCHC 33.8 RDW 13.6 Plt Count 142 L MPV 12.1 Immature Gran % (Auto) Cancelled Neut % (Auto) Cancelled Lymph % (Auto) Cancelled [place] % (Auto) Cancelled Eos % (Auto) Cancelled Baso % (Auto) Cancelled Lymph # (Auto) Cancelled [place] # (Auto) Cancelled Eos # (Auto) Cancelled Baso # (Auto) Cancelled Abs Immat Gran (auto) Cancelled Absolute Neuts (auto) Cancelled Absolute Nucleated RBC 0.090 H Nucleated RBC % (auto) 0.7 H Neutrophils % (Manual) 62 Band Neutrophils % 12 H Lymphocytes % (Manual) 12 L Atypical Lymphs % (Man) Monocytes % (Manual) 7 Eosinophils % (Manual) 1 Metamyelocytes % 4 Myelocytes % 1 Promyelocytes % 1 Abs Neuts (Manual) 10.1 H Lymphocytes # (Manual) 1.6 Atyp Lymphs # (Manual) Monocytes # (Manual) 1.0 Eosinophils # (Manual) 0.1 Metamyelocytes # 0.5 Myelocytes # 0.1 Promyelocytes # 0.1 Nucleated RBCs Smudge Cells Toxic Granulation PRESENT Toxic Vacuolation PRESENT Platelet Estimate NORMAL Large Platelets PRESENT Plt Morphology Comment NOTED RBC Morphology NORMAL Polychromasia Hypochromasia Basophilic Stippling 1+ (0-2) Spherocytes 2+ (3-5) Tear Drop Cells 1+ (0-2) Ovalocytes Rosa-Munday Bodies [place] Cells Acanthocytes (Spur) 2+ (3-5) Schistocytes PT INR aPTT Heparin Protocol D-Dimer High Sensitivty O2 Saturation ABG pH at Pt Temp ABG pCO2 at Pt Temp ABG pO2 at Pt Temp ABG HCO3 ABG Base Excess (Actual) VBG pH VBG pCO2 VBG pO2 VBG HCO3 VBG O2 Saturation VBG Base Excess Sodium 136 Potassium 2.9 L* Chloride 94 L Carbon Dioxide 31 H Anion Gap 14 BUN 23 H Creatinine 0.76 Estim Creat Clear Calc 95.2 Estimated GFR > 60 POC Glucose 220 H 216 H Random Glucose 231 H Lactic Acid Lactic Acid F/U @ 2Hr Calcium 8.5 Phosphorus 2.2 L Magnesium 2.6 Total Bilirubin Direct Bilirubin AST ALT Alkaline Phosphatase Ammonia Troponin I High Sens B-Natriuretic Peptide Total Protein Albumin 3.0 L Lipase 25-OH Vitamin D Total Procalcitonin TSH Urine Color Urine Appearance Urine pH Ur Specific [place] Urine Protein Urine Glucose (UA) Urine Ketones Urine Blood Urine Nitrite Ur Leukocyte Esterase Urine RBC Urine WBC Ur Squamous Epith Cells Urine Bacteria Hyaline Casts Nasal Screen MRSA (PCR) Nasal S. aureus Screen Nasal MRSA/S.aureus Interp Stool Occult Blood Stl C. cayetanensis PCR Stool Rotavirus A PCR Stl Adenov F 40/41 PCR Stool Astrovirus (PCR) Stool Campylobacter PCR Stool Cryptosporidium PCR Stl Sh Tox Pr E STEC PCR Stool E coli O157 PCR Stl Enterotoxigenic E PCR Stool EPEC (PCR) Stool EAEC (PCR) Stl E. histolytica PCR Stool Giardia Lamblia PCR Stl P. shigelloides PCR Stool Salmonella PCR Stool Sapovirus (PCR) Stl Shigella/EIEC PCR St Y.enterocolitica PCR Stool Vibrio (PCR) Stl Vibrio cholerae PCR Stl Norovirus GI/GII PCR Random Vancomycin Valproic Acid Carbamazepine Lamotrigine Clozapine Norclozapine Respiratory Panel Ashley Adenovirus (Rapid PCR) B.pert (TEM-PCR) B.parapertussis DNA PCR C. pneumoniae DNA (PCR) Coronavirus OC43 (PCR) Coronavirus HKU1 (PCR) Coronavirus 229E (PCR) Coronavirus NL63 (PCR) Hepatitis A IgM Ab Hep Bs Antigen Hepatitis C Ab (EIA) Human Metapneumovir PCR Influenza A (RT-PCR) Influenza Type A (PCR) Influenza B (RT-PCR) Influenza Type B (PCR) M. pneumoniae (PCR) Parainfluenza 1 (PCR) Parainfluenza 2 (PCR) Parainfluenza 3 (PCR) Parainfluenza 4 (PCR) RSV (PCR) RSV RNA Qual (PCR) Entero/Rhino (PCR) SARS-CoV-2 RNA (RT-PCR) Blood Type Antibody Screen 06/01/23 06/01/23 06/01/23 05:09 06:09 11:16 WBC RBC Hgb Hct MCV MCH MCHC RDW Plt Count MPV Immature Gran % (Auto) Neut % (Auto) Lymph % (Auto) [place] % (Auto) Eos % (Auto) Baso % (Auto) Lymph # (Auto) [place] # (Auto) Eos # (Auto) Baso # (Auto) Abs Immat Gran (auto) Absolute Neuts (auto) Absolute Nucleated RBC Nucleated RBC % (auto) Neutrophils % (Manual) Band Neutrophils % Lymphocytes % (Manual) Atypical Lymphs % (Man) Monocytes % (Manual) Eosinophils % (Manual) Metamyelocytes % Myelocytes % Promyelocytes % Abs Neuts (Manual) Lymphocytes # (Manual) Atyp Lymphs # (Manual) Monocytes # (Manual) Eosinophils # (Manual) Metamyelocytes # Myelocytes # Promyelocytes # Nucleated RBCs Smudge Cells Toxic Granulation Toxic Vacuolation Platelet Estimate Large Platelets Plt Morphology Comment RBC Morphology Polychromasia Hypochromasia Basophilic Stippling Spherocytes Tear Drop Cells Ovalocytes Rosa-Munday Bodies [place] Cells Acanthocytes (Spur) Schistocytes PT INR aPTT Heparin Protocol D-Dimer High Sensitivty O2 Saturation ABG pH at Pt Temp ABG pCO2 at Pt Temp ABG pO2 at Pt Temp ABG HCO3 ABG Base Excess (Actual) VBG pH 7.49 H VBG pCO2 46 VBG pO2 81 VBG HCO3 35 H VBG O2 Saturation 99.0 VBG Base Excess 11.1 Sodium Potassium Chloride Carbon Dioxide Anion Gap BUN Creatinine Estim Creat Clear Calc Estimated GFR POC Glucose 237 H 263 H Random Glucose Lactic Acid Lactic Acid F/U @ 2Hr Calcium Phosphorus Magnesium Total Bilirubin Direct Bilirubin AST ALT Alkaline Phosphatase Ammonia Troponin I High Sens B-Natriuretic Peptide Total Protein Albumin Lipase 25-OH Vitamin D Total Procalcitonin TSH Urine Color Urine Appearance Urine pH Ur Specific [place] Urine Protein Urine Glucose (UA) Urine Ketones Urine Blood Urine Nitrite Ur Leukocyte Esterase Urine RBC Urine WBC Ur Squamous Epith Cells Urine Bacteria Hyaline Casts Nasal Screen MRSA (PCR) Nasal S. aureus Screen Nasal MRSA/S.aureus Interp Stool Occult Blood Stl C. cayetanensis PCR Stool Rotavirus A PCR Stl Adenov F 40/41 PCR Stool Astrovirus (PCR) Stool Campylobacter PCR Stool Cryptosporidium PCR Stl Sh Tox Pr E STEC PCR Stool E coli O157 PCR Stl Enterotoxigenic E PCR Stool EPEC (PCR) Stool EAEC (PCR) Stl E. histolytica PCR Stool Giardia Lamblia PCR Stl P. shigelloides PCR Stool Salmonella PCR Stool Sapovirus (PCR) Stl Shigella/EIEC PCR St Y.enterocolitica PCR Stool Vibrio (PCR) Stl Vibrio cholerae PCR Stl Norovirus GI/GII PCR Random Vancomycin Valproic Acid Carbamazepine Lamotrigine Clozapine Norclozapine Respiratory Panel Ashley Adenovirus (Rapid PCR) B.pert (TEM-PCR) B.parapertussis DNA PCR C. pneumoniae DNA (PCR) Coronavirus OC43 (PCR) Coronavirus HKU1 (PCR) Coronavirus 229E (PCR) Coronavirus NL63 (PCR) Hepatitis A IgM Ab Hep Bs Antigen Hepatitis C Ab (EIA) Human Metapneumovir PCR Influenza A (RT-PCR) Influenza Type A (PCR) Influenza B (RT-PCR) Influenza Type B (PCR) M. pneumoniae (PCR) Parainfluenza 1 (PCR) Parainfluenza 2 (PCR) Parainfluenza 3 (PCR) Parainfluenza 4 (PCR) RSV (PCR) RSV RNA Qual (PCR) Entero/Rhino (PCR) SARS-CoV-2 RNA (RT-PCR) Blood Type Antibody Screen 06/01/23 06/01/23 06/02/23 17:08 20:56 00:21 WBC RBC Hgb Hct MCV MCH MCHC RDW Plt Count MPV Immature Gran % (Auto) Neut % (Auto) Lymph % (Auto) [place] % (Auto) Eos % (Auto) Baso % (Auto) Lymph # (Auto) [place] # (Auto) Eos # (Auto) Baso # (Auto) Abs Immat Gran (auto) Absolute Neuts (auto) Absolute Nucleated RBC Nucleated RBC % (auto) Neutrophils % (Manual) Band Neutrophils % Lymphocytes % (Manual) Atypical Lymphs % (Man) Monocytes % (Manual) Eosinophils % (Manual) Metamyelocytes % Myelocytes % Promyelocytes % Abs Neuts (Manual) Lymphocytes # (Manual) Atyp Lymphs # (Manual) Monocytes # (Manual) Eosinophils # (Manual) Metamyelocytes # Myelocytes # Promyelocytes # Nucleated RBCs Smudge Cells Toxic Granulation Toxic Vacuolation Platelet Estimate Large Platelets Plt Morphology Comment RBC Morphology Polychromasia Hypochromasia Basophilic Stippling Spherocytes Tear Drop Cells Ovalocytes Rosa-Munday Bodies Jyoti Cells Acanthocytes (Spur) Schistocytes PT INR aPTT Heparin Protocol D-Dimer High Sensitivty O2 Saturation ABG pH at Pt Temp ABG pCO2 at Pt Temp ABG pO2 at Pt Temp ABG HCO3 ABG Base Excess (Actual) VBG pH VBG pCO2 VBG pO2 VBG HCO3 VBG O2 Saturation VBG Base Excess Sodium 137 Potassium 3.4 Chloride 97 Carbon Dioxide 29 Anion Gap 14 BUN 18 H Creatinine 0.87 Estim Creat Clear Calc 83.1 Estimated GFR > 60 POC Glucose 309 H 237 H Random Glucose 282 H Lactic Acid Lactic Acid F/U @ 2Hr Calcium 8.6 Phosphorus 2.4 L Magnesium 2.5 Total Bilirubin 1.2 H Direct Bilirubin AST 307 H ALT 301 H Alkaline Phosphatase 127 H Ammonia Troponin I High Sens B-Natriuretic Peptide Total Protein 6.3 L Albumin 2.9 L Lipase 25-OH Vitamin D Total Procalcitonin TSH Urine Color Urine Appearance Urine pH Ur Specific [place] Urine Protein Urine Glucose (UA) Urine Ketones Urine Blood Urine Nitrite Ur Leukocyte Esterase Urine RBC Urine WBC Ur Squamous Epith Cells Urine Bacteria Hyaline Casts Nasal Screen MRSA (PCR) Nasal S. aureus Screen Nasal MRSA/S.aureus Interp Stool Occult Blood Stl C. cayetanensis PCR Stool Rotavirus A PCR Stl Adenov F 40 PCR Stool Astrovirus (PCR) Stool Campylobacter PCR Stool Cryptosporidium PCR Stl Sh Tox Pr E STEC PCR Stool E coli O157 PCR Stl Enterotoxigenic E PCR Stool EPEC (PCR) Stool EAEC (PCR) Stl E. histolytica PCR Stool Giardia Lamblia PCR Stl P. shigelloides PCR Stool Salmonella PCR Stool Sapovirus (PCR) Stl Shigella/EIEC PCR St Y.enterocolitica PCR Stool Vibrio (PCR) Stl Vibrio cholerae PCR Stl Norovirus GI/GII PCR Random Vancomycin Valproic Acid Carbamazepine Lamotrigine Clozapine Norclozapine Respiratory Panel Ashley Adenovirus (Rapid PCR) B.pert (TEM-PCR) B.parapertussis DNA PCR C. pneumoniae DNA (PCR) Coronavirus OC43 (PCR) Coronavirus HKU1 (PCR) Coronavirus 229E (PCR) Coronavirus NL63 (PCR) Hepatitis A IgM Ab Hep Bs Antigen Hepatitis C Ab (EIA) Human Metapneumovir PCR Influenza A (RT-PCR) Influenza Type A (PCR) Influenza B (RT-PCR) Influenza Type B (PCR) M. pneumoniae (PCR) Parainfluenza 1 (PCR) Parainfluenza 2 (PCR) Parainfluenza 3 (PCR) Parainfluenza 4 (PCR) RSV (PCR) RSV RNA Qual (PCR) Entero/Rhino (PCR) SARS-CoV-2 RNA (RT-PCR) Blood Type Antibody Screen 06/02/23 06/02/23 06/02/23 05:20 05:23 11:16 WBC 11.1 H RBC 2.96 L Hgb 9.3 L Hct 28.0 L MCV 94.6 MCH 31.4 MCHC 33.2 RDW 13.9 Plt Count 171 MPV 11.8 Immature Gran % (Auto) Cancelled Neut % (Auto) Cancelled Lymph % (Auto) Cancelled [place] % (Auto) Cancelled Eos % (Auto) Cancelled Baso % (Auto) Cancelled Lymph # (Auto) Cancelled [place] # (Auto) Cancelled Eos # (Auto) Cancelled Baso # (Auto) Cancelled Abs Immat Gran (auto) Cancelled Absolute Neuts (auto) Cancelled Absolute Nucleated RBC 0.070 H Nucleated RBC % (auto) 0.6 H Neutrophils % (Manual) 65 Band Neutrophils % 5 Lymphocytes % (Manual) 14 L Atypical Lymphs % (Man) 1 Monocytes % (Manual) 3 Eosinophils % (Manual) 1 Metamyelocytes % 9 Myelocytes % 2 Promyelocytes % Abs Neuts (Manual) 7.8 Lymphocytes # (Manual) 1.6 Atyp Lymphs # (Manual) 0.1 Monocytes # (Manual) 0.3 Eosinophils # (Manual) 0.1 Metamyelocytes # 1.0 Myelocytes # 0.2 Promyelocytes # Nucleated RBCs 3 H Smudge Cells Toxic Granulation Toxic Vacuolation PRESENT Platelet Estimate NORMAL Large Platelets Plt Morphology Comment NORMAL RBC Morphology NOTED Polychromasia 1+ (0-2) Hypochromasia 1+ (5-14) Basophilic Stippling Spherocytes Tear Drop Cells Ovalocytes Rosa-Munday Bodies Jyoti Cells Acanthocytes (Spur) Schistocytes PT INR aPTT Heparin Protocol D-Dimer High Sensitivty O2 Saturation ABG pH at Pt Temp ABG pCO2 at Pt Temp ABG pO2 at Pt Temp ABG HCO3 ABG Base Excess (Actual) VBG pH 7.47 H VBG pCO2 46 VBG pO2 56 VBG HCO3 34 H VBG O2 Saturation 87.0 VBG Base Excess 9.6 Sodium 140 Potassium 3.1 L Chloride 99 Carbon Dioxide 29 Anion Gap 15 BUN 19 H Creatinine 0.83 Estim Creat Clear Calc 87.1 Estimated GFR > 60 POC Glucose 284 H Random Glucose 231 H Lactic Acid Lactic Acid F/U @ 2Hr Calcium 9.0 Phosphorus 3.3 Magnesium 2.4 Total Bilirubin Direct Bilirubin AST ALT Alkaline Phosphatase Ammonia Troponin I High Sens B-Natriuretic Peptide Total Protein Albumin 3.9 Lipase 25-OH Vitamin D Total Procalcitonin TSH Urine Color Urine Appearance Urine pH Ur Specific [place] Urine Protein Urine Glucose (UA) Urine Ketones Urine Blood Urine Nitrite Ur Leukocyte Esterase Urine RBC Urine WBC Ur Squamous Epith Cells Urine Bacteria Hyaline Casts Nasal Screen MRSA (PCR) Nasal S. aureus Screen Nasal MRSA/S.aureus Interp Stool Occult Blood Stl C. cayetanensis PCR Stool Rotavirus A PCR Stl Adenov F 40/41 PCR Stool Astrovirus (PCR) Stool Campylobacter PCR Stool Cryptosporidium PCR Stl Sh Tox Pr E STEC PCR Stool E coli O157 PCR Stl Enterotoxigenic E PCR Stool EPEC (PCR) Stool EAEC (PCR) Stl E. histolytica PCR Stool Giardia Lamblia PCR Stl P. shigelloides PCR Stool Salmonella PCR Stool Sapovirus (PCR) Stl Shigella/EIEC PCR St Y.enterocolitica PCR Stool Vibrio (PCR) Stl Vibrio cholerae PCR Stl Norovirus GI/GII PCR Random Vancomycin Valproic Acid Carbamazepine Lamotrigine Clozapine Norclozapine Respiratory Panel Ashley Adenovirus (Rapid PCR) B.pert (TEM-PCR) B.parapertussis DNA PCR C. pneumoniae DNA (PCR) Coronavirus OC43 (PCR) Coronavirus HKU1 (PCR) Coronavirus 229E (PCR) Coronavirus NL63 (PCR) Hepatitis A IgM Ab Hep Bs Antigen Hepatitis C Ab (EIA) Human Metapneumovir PCR Influenza A (RT-PCR) Influenza Type A (PCR) Influenza B (RT-PCR) Influenza Type B (PCR) M. pneumoniae (PCR) Parainfluenza 1 (PCR) Parainfluenza 2 (PCR) Parainfluenza 3 (PCR) Parainfluenza 4 (PCR) RSV (PCR) RSV RNA Qual (PCR) Entero/Rhino (PCR) SARS-CoV-2 RNA (RT-PCR) Blood Type Antibody Screen 06/02/23 06/02/23 06/02/23 13:51 17:11 19:53 WBC RBC Hgb Hct MCV MCH MCHC RDW Plt Count MPV Immature Gran % (Auto) Neut % (Auto) Lymph % (Auto) [place] % (Auto) Eos % (Auto) Baso % (Auto) Lymph # (Auto) [place] # (Auto) Eos # (Auto) Baso # (Auto) Abs Immat Gran (auto) Absolute Neuts (auto) Absolute Nucleated RBC Nucleated RBC % (auto) Neutrophils % (Manual) Band Neutrophils % Lymphocytes % (Manual) Atypical Lymphs % (Man) Monocytes % (Manual) Eosinophils % (Manual) Metamyelocytes % Myelocytes % Promyelocytes % Abs Neuts (Manual) Lymphocytes # (Manual) Atyp Lymphs # (Manual) Monocytes # (Manual) Eosinophils # (Manual) Metamyelocytes # Myelocytes # Promyelocytes # Nucleated RBCs Smudge Cells Toxic Granulation Toxic Vacuolation Platelet Estimate Large Platelets Plt Morphology Comment RBC Morphology Polychromasia Hypochromasia Basophilic Stippling Spherocytes Tear Drop Cells Ovalocytes Rosa-Munday Bodies [place] Cells Acanthocytes (Spur) Schistocytes PT INR aPTT Heparin Protocol D-Dimer High Sensitivty O2 Saturation ABG pH at Pt Temp ABG pCO2 at Pt Temp ABG pO2 at Pt Temp ABG HCO3 ABG Base Excess (Actual) VBG pH VBG pCO2 VBG pO2 VBG HCO3 VBG O2 Saturation VBG Base Excess Sodium 141 Potassium 3.4 Chloride 101 Carbon Dioxide 31 H Anion Gap 12 BUN 26 H Creatinine 0.79 Estim Creat Clear Calc 91.5 Estimated GFR > 60 POC Glucose 286 H Random Glucose 246 H Lactic Acid Lactic Acid F/U @ 2Hr Calcium 9.1 Phosphorus Magnesium Total Bilirubin 1.2 H Direct Bilirubin AST 246 H ALT 307 H Alkaline Phosphatase 126 H Ammonia Troponin I High Sens B-Natriuretic Peptide Total Protein 6.4 L Albumin 3.7 Lipase 25-OH Vitamin D Total Procalcitonin TSH Urine Color Urine Appearance Urine pH Ur Specific [place] Urine Protein Urine Glucose (UA) Urine Ketones Urine Blood Urine Nitrite Ur Leukocyte Esterase Urine RBC Urine WBC Ur Squamous Epith Cells Urine Bacteria Hyaline Casts Nasal Screen MRSA (PCR) POSITIVE A Nasal S. aureus Screen POSITIVE A Nasal MRSA/S.aureus Interp SEE NOTE Stool Occult Blood Stl C. cayetanensis PCR Stool Rotavirus A PCR Stl Adenov F 40/41 PCR Stool Astrovirus (PCR) Stool Campylobacter PCR Stool Cryptosporidium PCR Stl Sh Tox Pr E STEC PCR Stool E coli O157 PCR Stl Enterotoxigenic E PCR Stool EPEC (PCR) Stool EAEC (PCR) Stl E. histolytica PCR Stool Giardia Lamblia PCR Stl P. shigelloides PCR Stool Salmonella PCR Stool Sapovirus (PCR) Stl Shigella/EIEC PCR St Y.enterocolitica PCR Stool Vibrio (PCR) Stl Vibrio cholerae PCR Stl Norovirus GI/GII PCR Random Vancomycin Valproic Acid Carbamazepine Lamotrigine Clozapine Norclozapine Respiratory Panel Ashley Adenovirus (Rapid PCR) B.pert (TEM-PCR) B.parapertussis DNA PCR C. pneumoniae DNA (PCR) Coronavirus OC43 (PCR) Coronavirus HKU1 (PCR) Coronavirus 229E (PCR) Coronavirus NL63 (PCR) Hepatitis A IgM Ab Hep Bs Antigen Hepatitis C Ab (EIA) Human Metapneumovir PCR Influenza A (RT-PCR) Influenza Type A (PCR) Influenza B (RT-PCR) Influenza Type B (PCR) M. pneumoniae (PCR) Parainfluenza 1 (PCR) Parainfluenza 2 (PCR) Parainfluenza 3 (PCR) Parainfluenza 4 (PCR) RSV (PCR) RSV RNA Qual (PCR) Entero/Rhino (PCR) SARS-CoV-2 RNA (RT-PCR) Blood Type Antibody Screen 06/02/23 06/03/23 06/03/23 23:48 05:47 05:51 WBC 15.8 H RBC 3.33 L Hgb 10.2 L Hct 31.0 L MCV 93.1 MCH 30.6 MCHC 32.9 RDW 14.3 Plt Count 239 D MPV 11.2 Immature Gran % (Auto) Cancelled Neut % (Auto) Cancelled Lymph % (Auto) Cancelled [place] % (Auto) Cancelled Eos % (Auto) Cancelled Baso % (Auto) Cancelled Lymph # (Auto) Cancelled [place] # (Auto) Cancelled Eos # (Auto) Cancelled Baso # (Auto) Cancelled Abs Immat Gran (auto) Cancelled Absolute Neuts (auto) Cancelled Absolute Nucleated RBC 0.060 H Nucleated RBC % (auto) 0.4 H Neutrophils % (Manual) 44 L Band Neutrophils % 21 H Lymphocytes % (Manual) 21 Atypical Lymphs % (Man) Monocytes % (Manual) 5 Eosinophils % (Manual) 4 Metamyelocytes % 2 Myelocytes % 2 Promyelocytes % 1 Abs Neuts (Manual) 10.3 H Lymphocytes # (Manual) 3.3 Atyp Lymphs # (Manual) Monocytes # (Manual) 0.8 Eosinophils # (Manual) 0.6 H Metamyelocytes # 0.3 Myelocytes # 0.3 Promyelocytes # 0.2 Nucleated RBCs 1 H Smudge Cells PRESENT Toxic Granulation PRESENT Toxic Vacuolation PRESENT Platelet Estimate NORMAL Large Platelets Plt Morphology Comment NORMAL RBC Morphology NOTED Polychromasia 1+ (0-2) Hypochromasia 1+ (5-14) Basophilic Stippling 1+ (0-2) Spherocytes Tear Drop Cells Ovalocytes Rosa-Munday Bodies PRESENT Jyoti Cells Acanthocytes (Spur) Schistocytes PT INR aPTT Heparin Protocol D-Dimer High Sensitivty O2 Saturation ABG pH at Pt Temp ABG pCO2 at Pt Temp ABG pO2 at Pt Temp ABG HCO3 ABG Base Excess (Actual) VBG pH 7.48 H VBG pCO2 33 VBG pO2 43 VBG HCO3 25 VBG O2 Saturation 74.0 VBG Base Excess 2.5 Sodium 139 Potassium 3.5 Chloride 104 Carbon Dioxide 26 Anion Gap 13 BUN 32 H Creatinine 0.79 Estim Creat Clear Calc 91.5 Estimated GFR > 60 POC Glucose 187 H Random Glucose 204 H Lactic Acid Lactic Acid F/U @ 2Hr Calcium 9.0 Phosphorus 2.2 L Magnesium 2.4 Total Bilirubin 1.1 H Direct Bilirubin AST 172 H ALT 270 H Alkaline Phosphatase 120 H Ammonia Troponin I High Sens B-Natriuretic Peptide Total Protein 6.2 L Albumin 3.4 L Lipase 25-OH Vitamin D Total Procalcitonin TSH Urine Color Urine Appearance Urine pH Ur Specific [place] Urine Protein Urine Glucose (UA) Urine Ketones Urine Blood Urine Nitrite Ur Leukocyte Esterase Urine RBC Urine WBC Ur Squamous Epith Cells Urine Bacteria Hyaline Casts Nasal Screen MRSA (PCR) Nasal S. aureus Screen Nasal MRSA/S.aureus Interp Stool Occult Blood Stl C. cayetanensis PCR Stool Rotavirus A PCR Stl Adenov F 40/41 PCR Stool Astrovirus (PCR) Stool Campylobacter PCR Stool Cryptosporidium PCR Stl Sh Tox Pr E STEC PCR Stool E coli O157 PCR Stl Enterotoxigenic E PCR Stool EPEC (PCR) Stool EAEC (PCR) Stl E. histolytica PCR Stool Giardia Lamblia PCR Stl P. shigelloides PCR Stool Salmonella PCR Stool Sapovirus (PCR) Stl Shigella/EIEC PCR St Y.enterocolitica PCR Stool Vibrio (PCR) Stl Vibrio cholerae PCR Stl Norovirus GI/GII PCR Random Vancomycin Valproic Acid Carbamazepine Lamotrigine Clozapine Norclozapine Respiratory Panel Ashley Adenovirus (Rapid PCR) B.pert (TEM-PCR) B.parapertussis DNA PCR C. pneumoniae DNA (PCR) Coronavirus OC43 (PCR) Coronavirus HKU1 (PCR) Coronavirus 229E (PCR) Coronavirus NL63 (PCR) Hepatitis A IgM Ab Hep Bs Antigen Hepatitis C Ab (EIA) Human Metapneumovir PCR Influenza A (RT-PCR) Influenza Type A (PCR) Influenza B (RT-PCR) Influenza Type B (PCR) M. pneumoniae (PCR) Parainfluenza 1 (PCR) Parainfluenza 2 (PCR) Parainfluenza 3 (PCR) Parainfluenza 4 (PCR) RSV (PCR) RSV RNA Qual (PCR) Entero/Rhino (PCR) SARS-CoV-2 RNA (RT-PCR) Blood Type Antibody Screen 06/03/23 06/03/23 06/03/23 05:53 11:03 11:22 WBC RBC Hgb Hct MCV MCH MCHC RDW Plt Count MPV Immature Gran % (Auto) Neut % (Auto) Lymph % (Auto) [place] % (Auto) Eos % (Auto) Baso % (Auto) Lymph # (Auto) [place] # (Auto) Eos # (Auto) Baso # (Auto) Abs Immat Gran (auto) Absolute Neuts (auto) Absolute Nucleated RBC Nucleated RBC % (auto) Neutrophils % (Manual) Band Neutrophils % Lymphocytes % (Manual) Atypical Lymphs % (Man) Monocytes % (Manual) Eosinophils % (Manual) Metamyelocytes % Myelocytes % Promyelocytes % Abs Neuts (Manual) Lymphocytes # (Manual) Atyp Lymphs # (Manual) Monocytes # (Manual) Eosinophils # (Manual) Metamyelocytes # Myelocytes # Promyelocytes # Nucleated RBCs Smudge Cells Toxic Granulation Toxic Vacuolation Platelet Estimate Large Platelets Plt Morphology Comment RBC Morphology Polychromasia Hypochromasia Basophilic Stippling Spherocytes Tear Drop Cells Ovalocytes Rosa-Munday Bodies Jyoti Cells Acanthocytes (Spur) Schistocytes PT INR aPTT Heparin Protocol D-Dimer High Sensitivty O2 Saturation ABG pH at Pt Temp ABG pCO2 at Pt Temp ABG pO2 at Pt Temp ABG HCO3 ABG Base Excess (Actual) VBG pH VBG pCO2 VBG pO2 VBG HCO3 VBG O2 Saturation VBG Base Excess Sodium Potassium Chloride Carbon Dioxide Anion Gap BUN Creatinine Estim Creat Clear Calc Estimated GFR POC Glucose 192 H 228 H Random Glucose Lactic Acid Lactic Acid F/U @ 2Hr Calcium Phosphorus Magnesium Total Bilirubin Direct Bilirubin AST ALT Alkaline Phosphatase Ammonia Troponin I High Sens B-Natriuretic Peptide Total Protein Albumin Lipase 25-OH Vitamin D Total Procalcitonin TSH Urine Color Urine Appearance Urine pH Ur Specific [place] Urine Protein Urine Glucose (UA) Urine Ketones Urine Blood Urine Nitrite Ur Leukocyte Esterase Urine RBC Urine WBC Ur Squamous Epith Cells Urine Bacteria Hyaline Casts Nasal Screen MRSA (PCR) Nasal S. aureus Screen Nasal MRSA/S.aureus Interp Stool Occult Blood Stl C. cayetanensis PCR Stool Rotavirus A PCR Stl Adenov F 40/41 PCR Stool Astrovirus (PCR) Stool Campylobacter PCR Stool Cryptosporidium PCR Stl Sh Tox Pr E STEC PCR Stool E coli O157 PCR Stl Enterotoxigenic E PCR Stool EPEC (PCR) Stool EAEC (PCR) Stl E. histolytica PCR Stool Giardia Lamblia PCR Stl P. shigelloides PCR Stool Salmonella PCR Stool Sapovirus (PCR) Stl Shigella/EIEC PCR St Y.enterocolitica PCR Stool Vibrio (PCR) Stl Vibrio cholerae PCR Stl Norovirus GI/GII PCR Random Vancomycin Valproic Acid Carbamazepine Lamotrigine Clozapine Norclozapine Respiratory Panel Ashley Adenovirus (Rapid PCR) B.pert (TEM-PCR) B.parapertussis DNA PCR C. pneumoniae DNA (PCR) Coronavirus OC43 (PCR) Coronavirus HKU1 (PCR) Coronavirus 229E (PCR) Coronavirus NL63 (PCR) Hepatitis A IgM Ab Nonreactive Hep Bs Antigen Negative Hepatitis C Ab (EIA) Nonreactive Human Metapneumovir PCR Influenza A (RT-PCR) Influenza Type A (PCR) Influenza B (RT-PCR) Influenza Type B (PCR) M. pneumoniae (PCR) Parainfluenza 1 (PCR) Parainfluenza 2 (PCR) Parainfluenza 3 (PCR) Parainfluenza 4 (PCR) RSV (PCR) RSV RNA Qual (PCR) Entero/Rhino (PCR) SARS-CoV-2 RNA (RT-PCR) Blood Type Antibody Screen 06/03/23 06/03/23 06/04/23 18:16 23:48 05:50 WBC RBC Hgb Hct MCV MCH MCHC RDW Plt Count MPV Immature Gran % (Auto) Neut % (Auto) Lymph % (Auto) [place] % (Auto) Eos % (Auto) Baso % (Auto) Lymph # (Auto) [place] # (Auto) Eos # (Auto) Baso # (Auto) Abs Immat Gran (auto) Absolute Neuts (auto) Absolute Nucleated RBC Nucleated RBC % (auto) Neutrophils % (Manual) Band Neutrophils % Lymphocytes % (Manual) Atypical Lymphs % (Man) Monocytes % (Manual) Eosinophils % (Manual) Metamyelocytes % Myelocytes % Promyelocytes % Abs Neuts (Manual) Lymphocytes # (Manual) Atyp Lymphs # (Manual) Monocytes # (Manual) Eosinophils # (Manual) Metamyelocytes # Myelocytes # Promyelocytes # Nucleated RBCs Smudge Cells Toxic Granulation Toxic Vacuolation Platelet Estimate Large Platelets Plt Morphology Comment RBC Morphology Polychromasia Hypochromasia Basophilic Stippling Spherocytes Tear Drop Cells Ovalocytes Rosa-Munday Bodies Jyoti Cells Acanthocytes (Spur) Schistocytes PT INR aPTT Heparin Protocol D-Dimer High Sensitivty O2 Saturation ABG pH at Pt Temp ABG pCO2 at Pt Temp ABG pO2 at Pt Temp ABG HCO3 ABG Base Excess (Actual) VBG pH 7.35 VBG pCO2 50 VBG pO2 56 VBG HCO3 28 H VBG O2 Saturation 85.0 VBG Base Excess 1.9 Sodium Potassium Chloride Carbon Dioxide Anion Gap BUN Creatinine 0.74 Estim Creat Clear Calc 96.1 Estimated GFR > 60 POC Glucose 230 H 208 H Random Glucose Lactic Acid Lactic Acid F/U @ 2Hr Calcium Phosphorus Magnesium Total Bilirubin Direct Bilirubin AST ALT Alkaline Phosphatase Ammonia Troponin I High Sens B-Natriuretic Peptide Total Protein Albumin Lipase 25-OH Vitamin D Total Procalcitonin TSH Urine Color Urine Appearance Urine pH Ur Specific [place] Urine Protein Urine Glucose (UA) Urine Ketones Urine Blood Urine Nitrite Ur Leukocyte Esterase Urine RBC Urine WBC Ur Squamous Epith Cells Urine Bacteria Hyaline Casts Nasal Screen MRSA (PCR) Nasal S. aureus Screen Nasal MRSA/S.aureus Interp Stool Occult Blood Stl C. cayetanensis PCR Stool Rotavirus A PCR Stl Adenov F 40/41 PCR Stool Astrovirus (PCR) Stool Campylobacter PCR Stool Cryptosporidium PCR Stl Sh Tox Pr E STEC PCR Stool E coli O157 PCR Stl Enterotoxigenic E PCR Stool EPEC (PCR) Stool EAEC (PCR) Stl E. histolytica PCR Stool Giardia Lamblia PCR Stl P. shigelloides PCR Stool Salmonella PCR Stool Sapovirus (PCR) Stl Shigella/EIEC PCR St Y.enterocolitica PCR Stool Vibrio (PCR) Stl Vibrio cholerae PCR Stl Norovirus GI/GII PCR Random Vancomycin Valproic Acid Carbamazepine Lamotrigine Clozapine Norclozapine Respiratory Panel Ashley Adenovirus (Rapid PCR) B.pert (TEM-PCR) B.parapertussis DNA PCR C. pneumoniae DNA (PCR) Coronavirus OC43 (PCR) Coronavirus HKU1 (PCR) Coronavirus 229E (PCR) Coronavirus NL63 (PCR) Hepatitis A IgM Ab Hep Bs Antigen Hepatitis C Ab (EIA) Human Metapneumovir PCR Influenza A (RT-PCR) Influenza Type A (PCR) Influenza B (RT-PCR) Influenza Type B (PCR) M. pneumoniae (PCR) Parainfluenza 1 (PCR) Parainfluenza 2 (PCR) Parainfluenza 3 (PCR) Parainfluenza 4 (PCR) RSV (PCR) RSV RNA Qual (PCR) Entero/Rhino (PCR) SARS-CoV-2 RNA (RT-PCR) Blood Type Antibody Screen 06/04/23 06/04/23 06/04/23 05:55 11:16 17:14 WBC RBC Hgb Hct MCV MCH MCHC RDW Plt Count MPV Immature Gran % (Auto) Neut % (Auto) Lymph % (Auto) [place] % (Auto) Eos % (Auto) Baso % (Auto) Lymph # (Auto) [place] # (Auto) Eos # (Auto) Baso # (Auto) Abs Immat Gran (auto) Absolute Neuts (auto) Absolute Nucleated RBC Nucleated RBC % (auto) Neutrophils % (Manual) Band Neutrophils % Lymphocytes % (Manual) Atypical Lymphs % (Man) Monocytes % (Manual) Eosinophils % (Manual) Metamyelocytes % Myelocytes % Promyelocytes % Abs Neuts (Manual) Lymphocytes # (Manual) Atyp Lymphs # (Manual) Monocytes # (Manual) Eosinophils # (Manual) Metamyelocytes # Myelocytes # Promyelocytes # Nucleated RBCs Smudge Cells Toxic Granulation Toxic Vacuolation Platelet Estimate Large Platelets Plt Morphology Comment RBC Morphology Polychromasia Hypochromasia Basophilic Stippling Spherocytes Tear Drop Cells Ovalocytes Rosa-Munday Bodies [place] Cells Acanthocytes (Spur) Schistocytes PT INR aPTT Heparin Protocol D-Dimer High Sensitivty O2 Saturation ABG pH at Pt Temp ABG pCO2 at Pt Temp ABG pO2 at Pt Temp ABG HCO3 ABG Base Excess (Actual) VBG pH VBG pCO2 VBG pO2 VBG HCO3 VBG O2 Saturation VBG Base Excess Sodium Potassium Chloride Carbon Dioxide Anion Gap BUN Creatinine Estim Creat Clear Calc Estimated GFR POC Glucose 213 H 271 H 187 H Random Glucose Lactic Acid Lactic Acid F/U @ 2Hr Calcium Phosphorus Magnesium Total Bilirubin Direct Bilirubin AST ALT Alkaline Phosphatase Ammonia Troponin I High Sens B-Natriuretic Peptide Total Protein Albumin Lipase 25-OH Vitamin D Total Procalcitonin TSH Urine Color Urine Appearance Urine pH Ur Specific [place] Urine Protein Urine Glucose (UA) Urine Ketones Urine Blood Urine Nitrite Ur Leukocyte Esterase Urine RBC Urine WBC Ur Squamous Epith Cells Urine Bacteria Hyaline Casts Nasal Screen MRSA (PCR) Nasal S. aureus Screen Nasal MRSA/S.aureus Interp Stool Occult Blood Stl C. cayetanensis PCR Stool Rotavirus A PCR Stl Adenov F 40/41 PCR Stool Astrovirus (PCR) Stool Campylobacter PCR Stool Cryptosporidium PCR Stl Sh Tox Pr E STEC PCR Stool E coli O157 PCR Stl Enterotoxigenic E PCR Stool EPEC (PCR) Stool EAEC (PCR) Stl E. histolytica PCR Stool Giardia Lamblia PCR Stl P. shigelloides PCR Stool Salmonella PCR Stool Sapovirus (PCR) Stl Shigella/EIEC PCR St Y.enterocolitica PCR Stool Vibrio (PCR) Stl Vibrio cholerae PCR Stl Norovirus GI/GII PCR Random Vancomycin Valproic Acid Carbamazepine Lamotrigine Clozapine Norclozapine Respiratory Panel Ashley Adenovirus (Rapid PCR) B.pert (TEM-PCR) B.parapertussis DNA PCR C. pneumoniae DNA (PCR) Coronavirus OC43 (PCR) Coronavirus HKU1 (PCR) Coronavirus 229E (PCR) Coronavirus NL63 (PCR) Hepatitis A IgM Ab Hep Bs Antigen Hepatitis C Ab (EIA) Human Metapneumovir PCR Influenza A (RT-PCR) Influenza Type A (PCR) Influenza B (RT-PCR) Influenza Type B (PCR) M. pneumoniae (PCR) Parainfluenza 1 (PCR) Parainfluenza 2 (PCR) Parainfluenza 3 (PCR) Parainfluenza 4 (PCR) RSV (PCR) RSV RNA Qual (PCR) Entero/Rhino (PCR) SARS-CoV-2 RNA (RT-PCR) Blood Type Antibody Screen 06/04/23 06/05/23 06/05/23 18:03 00:00 04:59 WBC 19.6 H RBC 3.22 L Hgb 9.9 L Hct 31.2 L MCV 96.9 MCH 30.7 MCHC 31.7 RDW 14.0 Plt Count 272 MPV 10.3 Immature Gran % (Auto) Cancelled Neut % (Auto) Cancelled Lymph % (Auto) Cancelled [place] % (Auto) Cancelled Eos % (Auto) Cancelled Baso % (Auto) Cancelled Lymph # (Auto) Cancelled [place] # (Auto) Cancelled Eos # (Auto) Cancelled Baso # (Auto) Cancelled Abs Immat Gran (auto) Cancelled Absolute Neuts (auto) Cancelled Absolute Nucleated RBC 0.000 Nucleated RBC % (auto) 0.0 Neutrophils % (Manual) 66 Band Neutrophils % 9 H Lymphocytes % (Manual) 13 L Atypical Lymphs % (Man) Monocytes % (Manual) 5 Eosinophils % (Manual) 2 Metamyelocytes % 4 Myelocytes % 1 Promyelocytes % Abs Neuts (Manual) 14.7 H Lymphocytes # (Manual) 2.5 Atyp Lymphs # (Manual) Monocytes # (Manual) 1.0 Eosinophils # (Manual) 0.4 Metamyelocytes # 0.8 Myelocytes # 0.2 Promyelocytes # Nucleated RBCs Smudge Cells Toxic Granulation PRESENT Toxic Vacuolation Platelet Estimate NORMAL Large Platelets Plt Morphology Comment NORMAL RBC Morphology NOTED Polychromasia 1+ (0-2) Hypochromasia Basophilic Stippling Spherocytes Tear Drop Cells Ovalocytes Rosa-Munday Bodies [place] Cells 1+ (0-2) Acanthocytes (Spur) 1+ (0-2) Schistocytes 1+ (0-2) PT INR aPTT Heparin Protocol D-Dimer High Sensitivty O2 Saturation ABG pH at Pt Temp ABG pCO2 at Pt Temp ABG pO2 at Pt Temp ABG HCO3 ABG Base Excess (Actual) VBG pH VBG pCO2 VBG pO2 VBG HCO3 VBG O2 Saturation VBG Base Excess Sodium 139 Potassium 3.8 Chloride 106 Carbon Dioxide 25 Anion Gap 12 BUN 28 H Creatinine 0.74 Estim Creat Clear Calc 96.1 Estimated GFR > 60 POC Glucose 174 H Random Glucose 188 H Lactic Acid Lactic Acid F/U @ 2Hr Calcium 8.3 L D Phosphorus Magnesium Total Bilirubin 0.6 Direct Bilirubin AST 38 H ALT 113 H Alkaline Phosphatase 92 Ammonia Troponin I High Sens B-Natriuretic Peptide Total Protein 6.1 L Albumin 2.9 L Lipase 25-OH Vitamin D Total Procalcitonin TSH Urine Color Urine Appearance Urine pH Ur Specific [place] Urine Protein Urine Glucose (UA) Urine Ketones Urine Blood Urine Nitrite Ur Leukocyte Esterase Urine RBC Urine WBC Ur Squamous Epith Cells Urine Bacteria Hyaline Casts Nasal Screen MRSA (PCR) Nasal S. aureus Screen Nasal MRSA/S.aureus Interp Stool Occult Blood Stl C. cayetanensis PCR Stool Rotavirus A PCR Stl Adenov F 40/41 PCR Stool Astrovirus (PCR) Stool Campylobacter PCR Stool Cryptosporidium PCR Stl Sh Tox Pr E STEC PCR Stool E coli O157 PCR Stl Enterotoxigenic E PCR Stool EPEC (PCR) Stool EAEC (PCR) Stl E. histolytica PCR Stool Giardia Lamblia PCR Stl P. shigelloides PCR Stool Salmonella PCR Stool Sapovirus (PCR) Stl Shigella/EIEC PCR St Y.enterocolitica PCR Stool Vibrio (PCR) Stl Vibrio cholerae PCR Stl Norovirus GI/GII PCR Random Vancomycin 13.1 L Valproic Acid Carbamazepine Lamotrigine Clozapine Norclozapine Respiratory Panel Ashley Adenovirus (Rapid PCR) B.pert (TEM-PCR) B.parapertussis DNA PCR C. pneumoniae DNA (PCR) Coronavirus OC43 (PCR) Coronavirus HKU1 (PCR) Coronavirus 229E (PCR) Coronavirus NL63 (PCR) Hepatitis A IgM Ab Hep Bs Antigen Hepatitis C Ab (EIA) Human Metapneumovir PCR Influenza A (RT-PCR) Influenza Type A (PCR) Influenza B (RT-PCR) Influenza Type B (PCR) M. pneumoniae (PCR) Parainfluenza 1 (PCR) Parainfluenza 2 (PCR) Parainfluenza 3 (PCR) Parainfluenza 4 (PCR) RSV (PCR) RSV RNA Qual (PCR) Entero/Rhino (PCR) SARS-CoV-2 RNA (RT-PCR) Blood Type Antibody Screen 06/05/23 06/05/23 06/05/23 05:01 11:09 17:40 WBC RBC Hgb Hct MCV MCH MCHC RDW Plt Count MPV Immature Gran % (Auto) Neut % (Auto) Lymph % (Auto) [place] % (Auto) Eos % (Auto) Baso % (Auto) Lymph # (Auto) [place] # (Auto) Eos # (Auto) Baso # (Auto) Abs Immat Gran (auto) Absolute Neuts (auto) Absolute Nucleated RBC Nucleated RBC % (auto) Neutrophils % (Manual) Band Neutrophils % Lymphocytes % (Manual) Atypical Lymphs % (Man) Monocytes % (Manual) Eosinophils % (Manual) Metamyelocytes % Myelocytes % Promyelocytes % Abs Neuts (Manual) Lymphocytes # (Manual) Atyp Lymphs # (Manual) Monocytes # (Manual) Eosinophils # (Manual) Metamyelocytes # Myelocytes # Promyelocytes # Nucleated RBCs Smudge Cells Toxic Granulation Toxic Vacuolation Platelet Estimate Large Platelets Plt Morphology Comment RBC Morphology Polychromasia Hypochromasia Basophilic Stippling Spherocytes Tear Drop Cells Ovalocytes Rosa-Munday Bodies Jyoti Cells Acanthocytes (Spur) Schistocytes PT INR aPTT Heparin Protocol D-Dimer High Sensitivty O2 Saturation ABG pH at Pt Temp ABG pCO2 at Pt Temp ABG pO2 at Pt Temp ABG HCO3 ABG Base Excess (Actual) VBG pH 7.46 H VBG pCO2 41 VBG pO2 45 VBG HCO3 29 H VBG O2 Saturation 77.0 VBG Base Excess 5.7 Sodium Potassium Chloride Carbon Dioxide Anion Gap BUN Creatinine Estim Creat Clear Calc Estimated GFR POC Glucose 229 H 252 H Random Glucose Lactic Acid Lactic Acid F/U @ 2Hr Calcium Phosphorus Magnesium Total Bilirubin Direct Bilirubin AST ALT Alkaline Phosphatase Ammonia Troponin I High Sens B-Natriuretic Peptide Total Protein Albumin Lipase 25-OH Vitamin D Total Procalcitonin TSH Urine Color Urine Appearance Urine pH Ur Specific [place] Urine Protein Urine Glucose (UA) Urine Ketones Urine Blood Urine Nitrite Ur Leukocyte Esterase Urine RBC Urine WBC Ur Squamous Epith Cells Urine Bacteria Hyaline Casts Nasal Screen MRSA (PCR) Nasal S. aureus Screen Nasal MRSA/S.aureus Interp Stool Occult Blood Stl C. cayetanensis PCR Stool Rotavirus A PCR Stl Adenov F 40/41 PCR Stool Astrovirus (PCR) Stool Campylobacter PCR Stool Cryptosporidium PCR Stl Sh Tox Pr E STEC PCR Stool E coli O157 PCR Stl Enterotoxigenic E PCR Stool EPEC (PCR) Stool EAEC (PCR) Stl E. histolytica PCR Stool Giardia Lamblia PCR Stl P. shigelloides PCR Stool Salmonella PCR Stool Sapovirus (PCR) Stl Shigella/EIEC PCR St Y.enterocolitica PCR Stool Vibrio (PCR) Stl Vibrio cholerae PCR Stl Norovirus GI/GII PCR Random Vancomycin Valproic Acid Carbamazepine Lamotrigine Clozapine Norclozapine Respiratory Panel Ashley Adenovirus (Rapid PCR) B.pert (TEM-PCR) B.parapertussis DNA PCR C. pneumoniae DNA (PCR) Coronavirus OC43 (PCR) Coronavirus HKU1 (PCR) Coronavirus 229E (PCR) Coronavirus NL63 (PCR) Hepatitis A IgM Ab Hep Bs Antigen Hepatitis C Ab (EIA) Human Metapneumovir PCR Influenza A (RT-PCR) Influenza Type A (PCR) Influenza B (RT-PCR) Influenza Type B (PCR) M. pneumoniae (PCR) Parainfluenza 1 (PCR) Parainfluenza 2 (PCR) Parainfluenza 3 (PCR) Parainfluenza 4 (PCR) RSV (PCR) RSV RNA Qual (PCR) Entero/Rhino (PCR) SARS-CoV-2 RNA (RT-PCR) Blood Type Antibody Screen 06/05/23 06/05/23 06/06/23 18:04 23:35 04:39 WBC 21.4 H RBC 3.11 L Hgb 9.6 L Hct 30.1 L MCV 96.8 MCH 30.9 MCHC 31.9 RDW 14.4 Plt Count 309 MPV 10.8 Immature Gran % (Auto) Cancelled Neut % (Auto) Cancelled Lymph % (Auto) Cancelled [place] % (Auto) Cancelled Eos % (Auto) Cancelled Baso % (Auto) Cancelled Lymph # (Auto) Cancelled [place] # (Auto) Cancelled Eos # (Auto) Cancelled Baso # (Auto) Cancelled Abs Immat Gran (auto) Cancelled Absolute Neuts (auto) Cancelled Absolute Nucleated RBC 0.030 H Nucleated RBC % (auto) 0.1 Neutrophils % (Manual) 66 Band Neutrophils % 9 H Lymphocytes % (Manual) 9 L Atypical Lymphs % (Man) 1 Monocytes % (Manual) 8 Eosinophils % (Manual) 2 Metamyelocytes % 3 Myelocytes % 2 Promyelocytes % Abs Neuts (Manual) 16.1 H Lymphocytes # (Manual) 1.9 Atyp Lymphs # (Manual) 0.2 Monocytes # (Manual) 1.7 H Eosinophils # (Manual) 0.4 Metamyelocytes # 0.6 Myelocytes # 0.4 Promyelocytes # Nucleated RBCs Smudge Cells Toxic Granulation PRESENT Toxic Vacuolation Platelet Estimate NORMAL Large Platelets PRESENT Plt Morphology Comment NOTED RBC Morphology NOTED Polychromasia 1+ (0-2) Hypochromasia Basophilic Stippling Spherocytes Tear Drop Cells Ovalocytes 1+ (5-14) Rosa-Munday Bodies [place] Cells 1+ (0-2) Acanthocytes (Spur) Schistocytes 1+ (0-2) PT INR aPTT Heparin Protocol D-Dimer High Sensitivty O2 Saturation ABG pH at Pt Temp ABG pCO2 at Pt Temp ABG pO2 at Pt Temp ABG HCO3 ABG Base Excess (Actual) VBG pH VBG pCO2 VBG pO2 VBG HCO3 VBG O2 Saturation VBG Base Excess Sodium 141 Potassium 3.4 Chloride 104 Carbon Dioxide 26 Anion Gap 14 BUN 24 H Creatinine 0.89 Estim Creat Clear Calc 79.8 Estimated GFR > 60 POC Glucose 172 H Random Glucose 174 H Lactic Acid Lactic Acid F/U @ 2Hr Calcium 8.3 L Phosphorus 2.3 L Magnesium 1.9 Total Bilirubin 0.6 Direct Bilirubin AST 27 ALT 73 H Alkaline Phosphatase 86 Ammonia Troponin I High Sens B-Natriuretic Peptide Total Protein 6.1 L Albumin 3.2 L Lipase 25-OH Vitamin D Total Procalcitonin TSH Urine Color Urine Appearance Urine pH Ur Specific [place] Urine Protein Urine Glucose (UA) Urine Ketones Urine Blood Urine Nitrite Ur Leukocyte Esterase Urine RBC Urine WBC Ur Squamous Epith Cells Urine Bacteria Hyaline Casts Nasal Screen MRSA (PCR) Nasal S. aureus Screen Nasal MRSA/S.aureus Interp Stool Occult Blood Stl C. cayetanensis PCR Stool Rotavirus A PCR Stl Adenov F 40/41 PCR Stool Astrovirus (PCR) Stool Campylobacter PCR Stool Cryptosporidium PCR Stl Sh Tox Pr E STEC PCR Stool E coli O157 PCR Stl Enterotoxigenic E PCR Stool EPEC (PCR) Stool EAEC (PCR) Stl E. histolytica PCR Stool Giardia Lamblia PCR Stl P. shigelloides PCR Stool Salmonella PCR Stool Sapovirus (PCR) Stl Shigella/EIEC PCR St Y.enterocolitica PCR Stool Vibrio (PCR) Stl Vibrio cholerae PCR Stl Norovirus GI/GII PCR Random Vancomycin 22.8 H Valproic Acid Carbamazepine Lamotrigine Clozapine Norclozapine Respiratory Panel Ashley Adenovirus (Rapid PCR) B.pert (TEM-PCR) B.parapertussis DNA PCR C. pneumoniae DNA (PCR) Coronavirus OC43 (PCR) Coronavirus HKU1 (PCR) Coronavirus 229E (PCR) Coronavirus NL63 (PCR) Hepatitis A IgM Ab Hep Bs Antigen Hepatitis C Ab (EIA) Human Metapneumovir PCR Influenza A (RT-PCR) Influenza Type A (PCR) Influenza B (RT-PCR) Influenza Type B (PCR) M. pneumoniae (PCR) Parainfluenza 1 (PCR) Parainfluenza 2 (PCR) Parainfluenza 3 (PCR) Parainfluenza 4 (PCR) RSV (PCR) RSV RNA Qual (PCR) Entero/Rhino (PCR) SARS-CoV-2 RNA (RT-PCR) Blood Type Antibody Screen 06/06/23 06/06/23 06/06/23 04:44 06:03 11:52 WBC RBC Hgb Hct MCV MCH MCHC RDW Plt Count MPV Immature Gran % (Auto) Neut % (Auto) Lymph % (Auto) [place] % (Auto) Eos % (Auto) Baso % (Auto) Lymph # (Auto) [place] # (Auto) Eos # (Auto) Baso # (Auto) Abs Immat Gran (auto) Absolute Neuts (auto) Absolute Nucleated RBC Nucleated RBC % (auto) Neutrophils % (Manual) Band Neutrophils % Lymphocytes % (Manual) Atypical Lymphs % (Man) Monocytes % (Manual) Eosinophils % (Manual) Metamyelocytes % Myelocytes % Promyelocytes % Abs Neuts (Manual) Lymphocytes # (Manual) Atyp Lymphs # (Manual) Monocytes # (Manual) Eosinophils # (Manual) Metamyelocytes # Myelocytes # Promyelocytes # Nucleated RBCs Smudge Cells Toxic Granulation Toxic Vacuolation Platelet Estimate Large Platelets Plt Morphology Comment RBC Morphology Polychromasia Hypochromasia Basophilic Stippling Spherocytes Tear Drop Cells Ovalocytes Rosa-Munday Bodies [place] Cells Acanthocytes (Spur) Schistocytes PT INR aPTT Heparin Protocol D-Dimer High Sensitivty O2 Saturation ABG pH at Pt Temp ABG pCO2 at Pt Temp ABG pO2 at Pt Temp ABG HCO3 ABG Base Excess (Actual) VBG pH 7.49 H VBG pCO2 39 VBG pO2 51 VBG HCO3 30 H VBG O2 Saturation 83.0 VBG Base Excess 6.7 Sodium Potassium Chloride Carbon Dioxide Anion Gap BUN Creatinine Estim Creat Clear Calc Estimated GFR POC Glucose 182 H Random Glucose Lactic Acid Lactic Acid F/U @ 2Hr Calcium Phosphorus Magnesium Total Bilirubin Direct Bilirubin AST ALT Alkaline Phosphatase Ammonia Troponin I High Sens B-Natriuretic Peptide Total Protein Albumin Lipase 25-OH Vitamin D Total Procalcitonin TSH Urine Color Urine Appearance Urine pH Ur Specific [place] Urine Protein Urine Glucose (UA) Urine Ketones Urine Blood Urine Nitrite Ur Leukocyte Esterase Urine RBC Urine WBC Ur Squamous Epith Cells Urine Bacteria Hyaline Casts Nasal Screen MRSA (PCR) Nasal S. aureus Screen Nasal MRSA/S.aureus Interp Stool Occult Blood Stl C. cayetanensis PCR Stool Rotavirus A PCR Stl Adenov F 40/41 PCR Stool Astrovirus (PCR) Stool Campylobacter PCR Stool Cryptosporidium PCR Stl Sh Tox Pr E STEC PCR Stool E coli O157 PCR Stl Enterotoxigenic E PCR Stool EPEC (PCR) Stool EAEC (PCR) Stl E. histolytica PCR Stool Giardia Lamblia PCR Stl P. shigelloides PCR Stool Salmonella PCR Stool Sapovirus (PCR) Stl Shigella/EIEC PCR St Y.enterocolitica PCR Stool Vibrio (PCR) Stl Vibrio cholerae PCR Stl Norovirus GI/GII PCR Random Vancomycin 15.7 Valproic Acid Carbamazepine Lamotrigine Clozapine Norclozapine Respiratory Panel Ashley Adenovirus (Rapid PCR) B.pert (TEM-PCR) B.parapertussis DNA PCR C. pneumoniae DNA (PCR) Coronavirus OC43 (PCR) Coronavirus HKU1 (PCR) Coronavirus 229E (PCR) Coronavirus NL63 (PCR) Hepatitis A IgM Ab Hep Bs Antigen Hepatitis C Ab (EIA) Human Metapneumovir PCR Influenza A (RT-PCR) Influenza Type A (PCR) Influenza B (RT-PCR) Influenza Type B (PCR) M. pneumoniae (PCR) Parainfluenza 1 (PCR) Parainfluenza 2 (PCR) Parainfluenza 3 (PCR) Parainfluenza 4 (PCR) RSV (PCR) RSV RNA Qual (PCR) Entero/Rhino (PCR) SARS-CoV-2 RNA (RT-PCR) Blood Type Antibody Screen 06/06/23 06/06/23 06/06/23 17:58 20:14 23:36 WBC RBC Hgb Hct MCV MCH MCHC RDW Plt Count MPV Immature Gran % (Auto) Neut % (Auto) Lymph % (Auto) [place] % (Auto) Eos % (Auto) Baso % (Auto) Lymph # (Auto) [place] # (Auto) Eos # (Auto) Baso # (Auto) Abs Immat Gran (auto) Absolute Neuts (auto) Absolute Nucleated RBC Nucleated RBC % (auto) Neutrophils % (Manual) Band Neutrophils % Lymphocytes % (Manual) Atypical Lymphs % (Man) Monocytes % (Manual) Eosinophils % (Manual) Metamyelocytes % Myelocytes % Promyelocytes % Abs Neuts (Manual) Lymphocytes # (Manual) Atyp Lymphs # (Manual) Monocytes # (Manual) Eosinophils # (Manual) Metamyelocytes # Myelocytes # Promyelocytes # Nucleated RBCs Smudge Cells Toxic Granulation Toxic Vacuolation Platelet Estimate Large Platelets Plt Morphology Comment RBC Morphology Polychromasia Hypochromasia Basophilic Stippling Spherocytes Tear Drop Cells Ovalocytes Rosa-Munday Bodies [place] Cells Acanthocytes (Spur) Schistocytes PT INR aPTT Heparin Protocol D-Dimer High Sensitivty O2 Saturation ABG pH at Pt Temp ABG pCO2 at Pt Temp ABG pO2 at Pt Temp ABG HCO3 ABG Base Excess (Actual) VBG pH 7.56 H VBG pCO2 27 VBG pO2 89 VBG HCO3 24 VBG O2 Saturation 99.0 VBG Base Excess 3.4 Sodium Potassium Chloride Carbon Dioxide Anion Gap BUN Creatinine Estim Creat Clear Calc Estimated GFR POC Glucose 157 H 171 H Random Glucose Lactic Acid Lactic Acid F/U @ 2Hr Calcium Phosphorus Magnesium Total Bilirubin Direct Bilirubin AST ALT Alkaline Phosphatase Ammonia Troponin I High Sens B-Natriuretic Peptide Total Protein Albumin Lipase 25-OH Vitamin D Total Procalcitonin TSH Urine Color Urine Appearance Urine pH Ur Specific [place] Urine Protein Urine Glucose (UA) Urine Ketones Urine Blood Urine Nitrite Ur Leukocyte Esterase Urine RBC Urine WBC Ur Squamous Epith Cells Urine Bacteria Hyaline Casts Nasal Screen MRSA (PCR) Nasal S. aureus Screen Nasal MRSA/S.aureus Interp Stool Occult Blood Stl C. cayetanensis PCR Stool Rotavirus A PCR Stl Adenov F 40/41 PCR Stool Astrovirus (PCR) Stool Campylobacter PCR Stool Cryptosporidium PCR Stl Sh Tox Pr E STEC PCR Stool E coli O157 PCR Stl Enterotoxigenic E PCR Stool EPEC (PCR) Stool EAEC (PCR) Stl E. histolytica PCR Stool Giardia Lamblia PCR Stl P. shigelloides PCR Stool Salmonella PCR Stool Sapovirus (PCR) Stl Shigella/EIEC PCR St Y.enterocolitica PCR Stool Vibrio (PCR) Stl Vibrio cholerae PCR Stl Norovirus GI/GII PCR Random Vancomycin Valproic Acid Carbamazepine Lamotrigine Clozapine Norclozapine Respiratory Panel Ashley Adenovirus (Rapid PCR) B.pert (TEM-PCR) B.parapertussis DNA PCR C. pneumoniae DNA (PCR) Coronavirus OC43 (PCR) Coronavirus HKU1 (PCR) Coronavirus 229E (PCR) Coronavirus NL63 (PCR) Hepatitis A IgM Ab Hep Bs Antigen Hepatitis C Ab (EIA) Human Metapneumovir PCR Influenza A (RT-PCR) Influenza Type A (PCR) Influenza B (RT-PCR) Influenza Type B (PCR) M. pneumoniae (PCR) Parainfluenza 1 (PCR) Parainfluenza 2 (PCR) Parainfluenza 3 (PCR) Parainfluenza 4 (PCR) RSV (PCR) RSV RNA Qual (PCR) Entero/Rhino (PCR) SARS-CoV-2 RNA (RT-PCR) Blood Type Antibody Screen 06/07/23 06/07/23 06/07/23 04:43 05:53 05:57 WBC 21.9 H RBC 2.80 L Hgb 8.6 L Hct 26.4 L MCV 94.3 MCH 30.7 MCHC 32.6 RDW 14.6 Plt Count 308 MPV 10.0 Immature Gran % (Auto) 3.1 H Neut % (Auto) 83.9 H Lymph % (Auto) 8.7 L [place] % (Auto) 3.4 Eos % (Auto) 0.6 Baso % (Auto) 0.3 Lymph # (Auto) 1.9 [place] # (Auto) 0.7 Eos # (Auto) 0.1 Baso # (Auto) 0.1 Abs Immat Gran (auto) 0.68 H Absolute Neuts (auto) 18.4 H Absolute Nucleated RBC 0.000 Nucleated RBC % (auto) 0.0 Neutrophils % (Manual) Band Neutrophils % Lymphocytes % (Manual) Atypical Lymphs % (Man) Monocytes % (Manual) Eosinophils % (Manual) Metamyelocytes % Myelocytes % Promyelocytes % Abs Neuts (Manual) Lymphocytes # (Manual) Atyp Lymphs # (Manual) Monocytes # (Manual) Eosinophils # (Manual) Metamyelocytes # Myelocytes # Promyelocytes # Nucleated RBCs Smudge Cells Toxic Granulation Toxic Vacuolation Platelet Estimate Large Platelets Plt Morphology Comment RBC Morphology Polychromasia Hypochromasia Basophilic Stippling Spherocytes Tear Drop Cells Ovalocytes Rosa-Munday Bodies [place] Cells Acanthocytes (Spur) Schistocytes PT INR aPTT Heparin Protocol D-Dimer High Sensitivty O2 Saturation ABG pH at Pt Temp ABG pCO2 at Pt Temp ABG pO2 at Pt Temp ABG HCO3 ABG Base Excess (Actual) VBG pH VBG pCO2 VBG pO2 VBG HCO3 VBG O2 Saturation VBG Base Excess Sodium 145 Potassium 3.2 L Chloride 108 Carbon Dioxide 28 Anion Gap 12 BUN 22 H Creatinine 0.85 0.78 Estim Creat Clear Calc 83.6 91.1 Estimated GFR > 60 > 60 POC Glucose 154 H Random Glucose 170 H Lactic Acid Lactic Acid F/U @ 2Hr Calcium 8.3 L Phosphorus Magnesium Total Bilirubin 0.8 Direct Bilirubin AST 35 H ALT 51 H Alkaline Phosphatase 79 Ammonia Troponin I High Sens B-Natriuretic Peptide Total Protein 6.3 L Albumin 3.4 L Lipase 25-OH Vitamin D Total Procalcitonin TSH Urine Color Urine Appearance Urine pH Ur Specific [place] Urine Protein Urine Glucose (UA) Urine Ketones Urine Blood Urine Nitrite Ur Leukocyte Esterase Urine RBC Urine WBC Ur Squamous Epith Cells Urine Bacteria Hyaline Casts Nasal Screen MRSA (PCR) Nasal S. aureus Screen Nasal MRSA/S.aureus Interp Stool Occult Blood Stl C. cayetanensis PCR Stool Rotavirus A PCR Stl Adenov F 40/41 PCR Stool Astrovirus (PCR) Stool Campylobacter PCR Stool Cryptosporidium PCR Stl Sh Tox Pr E STEC PCR Stool E coli O157 PCR Stl Enterotoxigenic E PCR Stool EPEC (PCR) Stool EAEC (PCR) Stl E. histolytica PCR Stool Giardia Lamblia PCR Stl P. shigelloides PCR Stool Salmonella PCR Stool Sapovirus (PCR) Stl Shigella/EIEC PCR St Y.enterocolitica PCR Stool Vibrio (PCR) Stl Vibrio cholerae PCR Stl Norovirus GI/GII PCR Random Vancomycin 15.8 Valproic Acid Carbamazepine Lamotrigine Clozapine Norclozapine Respiratory Panel Ashley Adenovirus (Rapid PCR) B.pert (TEM-PCR) B.parapertussis DNA PCR C. pneumoniae DNA (PCR) Coronavirus OC43 (PCR) Coronavirus HKU1 (PCR) Coronavirus 229E (PCR) Coronavirus NL63 (PCR) Hepatitis A IgM Ab Hep Bs Antigen Hepatitis C Ab (EIA) Human Metapneumovir PCR Influenza A (RT-PCR) Influenza Type A (PCR) Influenza B (RT-PCR) Influenza Type B (PCR) M. pneumoniae (PCR) Parainfluenza 1 (PCR) Parainfluenza 2 (PCR) Parainfluenza 3 (PCR) Parainfluenza 4 (PCR) RSV (PCR) RSV RNA Qual (PCR) Entero/Rhino (PCR) SARS-CoV-2 RNA (RT-PCR) Blood Type Antibody Screen 06/07/23 06/07/23 06/07/23 08:08 09:26 11:14 WBC RBC Hgb Hct MCV MCH MCHC RDW Plt Count MPV Immature Gran % (Auto) Neut % (Auto) Lymph % (Auto) [place] % (Auto) Eos % (Auto) Baso % (Auto) Lymph # (Auto) [place] # (Auto) Eos # (Auto) Baso # (Auto) Abs Immat Gran (auto) Absolute Neuts (auto) 16.0 H Absolute Nucleated RBC Nucleated RBC % (auto) Neutrophils % (Manual) Band Neutrophils % Lymphocytes % (Manual) Atypical Lymphs % (Man) Monocytes % (Manual) Eosinophils % (Manual) Metamyelocytes % Myelocytes % Promyelocytes % Abs Neuts (Manual) Lymphocytes # (Manual) Atyp Lymphs # (Manual) Monocytes # (Manual) Eosinophils # (Manual) Metamyelocytes # Myelocytes # Promyelocytes # Nucleated RBCs Smudge Cells Toxic Granulation Toxic Vacuolation Platelet Estimate Large Platelets Plt Morphology Comment RBC Morphology Polychromasia Hypochromasia Basophilic Stippling Spherocytes Tear Drop Cells Ovalocytes Rosa-Munday Bodies Jyoti Cells Acanthocytes (Spur) Schistocytes PT INR aPTT Heparin Protocol D-Dimer High Sensitivty O2 Saturation 95.0 ABG pH at Pt Temp 7.38 ABG pCO2 at Pt Temp 43 ABG pO2 at Pt Temp 83 ABG HCO3 25 ABG Base Excess (Actual) 0.7 VBG pH VBG pCO2 VBG pO2 VBG HCO3 VBG O2 Saturation VBG Base Excess Sodium Potassium Chloride Carbon Dioxide Anion Gap BUN Creatinine Estim Creat Clear Calc Estimated GFR POC Glucose 177 H Random Glucose Lactic Acid Lactic Acid F/U @ 2Hr Calcium Phosphorus Magnesium Total Bilirubin Direct Bilirubin AST ALT Alkaline Phosphatase Ammonia Troponin I High Sens B-Natriuretic Peptide Total Protein Albumin Lipase 25-OH Vitamin D Total Procalcitonin TSH Urine Color Urine Appearance Urine pH Ur Specific [place] Urine Protein Urine Glucose (UA) Urine Ketones Urine Blood Urine Nitrite Ur Leukocyte Esterase Urine RBC Urine WBC Ur Squamous Epith Cells Urine Bacteria Hyaline Casts Nasal Screen MRSA (PCR) Nasal S. aureus Screen Nasal MRSA/S.aureus Interp Stool Occult Blood Stl C. cayetanensis PCR Stool Rotavirus A PCR Stl Adenov F 40/41 PCR Stool Astrovirus (PCR) Stool Campylobacter PCR Stool Cryptosporidium PCR Stl Sh Tox Pr E STEC PCR Stool E coli O157 PCR Stl Enterotoxigenic E PCR Stool EPEC (PCR) Stool EAEC (PCR) Stl E. histolytica PCR Stool Giardia Lamblia PCR Stl P. shigelloides PCR Stool Salmonella PCR Stool Sapovirus (PCR) Stl Shigella/EIEC PCR St Y.enterocolitica PCR Stool Vibrio (PCR) Stl Vibrio cholerae PCR Stl Norovirus GI/GII PCR Random Vancomycin Valproic Acid Carbamazepine Lamotrigine Clozapine Norclozapine Respiratory Panel Ashley Adenovirus (Rapid PCR) B.pert (TEM-PCR) B.parapertussis DNA PCR C. pneumoniae DNA (PCR) Coronavirus OC43 (PCR) Coronavirus HKU1 (PCR) Coronavirus 229E (PCR) Coronavirus NL63 (PCR) Hepatitis A IgM Ab Hep Bs Antigen Hepatitis C Ab (EIA) Human Metapneumovir PCR Influenza A (RT-PCR) Influenza Type A (PCR) Influenza B (RT-PCR) Influenza Type B (PCR) M. pneumoniae (PCR) Parainfluenza 1 (PCR) Parainfluenza 2 (PCR) Parainfluenza 3 (PCR) Parainfluenza 4 (PCR) RSV (PCR) RSV RNA Qual (PCR) Entero/Rhino (PCR) SARS-CoV-2 RNA (RT-PCR) Blood Type Antibody Screen 06/07/23 06/07/23 06/07/23 17:21 20:19 20:22 WBC RBC Hgb Hct MCV MCH MCHC RDW Plt Count MPV Immature Gran % (Auto) Neut % (Auto) Lymph % (Auto) [place] % (Auto) Eos % (Auto) Baso % (Auto) Lymph # (Auto) [place] # (Auto) Eos # (Auto) Baso # (Auto) Abs Immat Gran (auto) Absolute Neuts (auto) Absolute Nucleated RBC Nucleated RBC % (auto) Neutrophils % (Manual) Band Neutrophils % Lymphocytes % (Manual) Atypical Lymphs % (Man) Monocytes % (Manual) Eosinophils % (Manual) Metamyelocytes % Myelocytes % Promyelocytes % Abs Neuts (Manual) Lymphocytes # (Manual) Atyp Lymphs # (Manual) Monocytes # (Manual) Eosinophils # (Manual) Metamyelocytes # Myelocytes # Promyelocytes # Nucleated RBCs Smudge Cells Toxic Granulation Toxic Vacuolation Platelet Estimate Large Platelets Plt Morphology Comment RBC Morphology Polychromasia Hypochromasia Basophilic Stippling Spherocytes Tear Drop Cells Ovalocytes Rosa-Munday Bodies Jyoti Cells Acanthocytes (Spur) Schistocytes PT INR aPTT Heparin Protocol D-Dimer High Sensitivty O2 Saturation ABG pH at Pt Temp ABG pCO2 at Pt Temp ABG pO2 at Pt Temp ABG HCO3 ABG Base Excess (Actual) VBG pH 7.48 H VBG pCO2 37 VBG pO2 59 VBG HCO3 28 H VBG O2 Saturation 91.0 VBG Base Excess 4.8 Sodium 146 H Potassium 3.3 Chloride 110 H Carbon Dioxide 28 Anion Gap 11 L BUN 24 H Creatinine 0.72 Estim Creat Clear Calc 98.7 Estimated GFR > 60 POC Glucose 173 H Random Glucose 173 H Lactic Acid Lactic Acid F/U @ 2Hr Calcium 8.1 L Phosphorus Magnesium Total Bilirubin 0.6 Direct Bilirubin AST 29 ALT 45 H Alkaline Phosphatase 75 Ammonia Troponin I High Sens B-Natriuretic Peptide Total Protein 6.2 L Albumin 3.3 L Lipase 25-OH Vitamin D Total Procalcitonin TSH Urine Color Urine Appearance Urine pH Ur Specific [place] Urine Protein Urine Glucose (UA) Urine Ketones Urine Blood Urine Nitrite Ur Leukocyte Esterase Urine RBC Urine WBC Ur Squamous Epith Cells Urine Bacteria Hyaline Casts Nasal Screen MRSA (PCR) Nasal S. aureus Screen Nasal MRSA/S.aureus Interp Stool Occult Blood Stl C. cayetanensis PCR Stool Rotavirus A PCR Stl Adenov F 40/41 PCR Stool Astrovirus (PCR) Stool Campylobacter PCR Stool Cryptosporidium PCR Stl Sh Tox Pr E STEC PCR Stool E coli O157 PCR Stl Enterotoxigenic E PCR Stool EPEC (PCR) Stool EAEC (PCR) Stl E. histolytica PCR Stool Giardia Lamblia PCR Stl P. shigelloides PCR Stool Salmonella PCR Stool Sapovirus (PCR) Stl Shigella/EIEC PCR St Y.enterocolitica PCR Stool Vibrio (PCR) Stl Vibrio cholerae PCR Stl Norovirus GI/GII PCR Random Vancomycin Valproic Acid Carbamazepine Lamotrigine Clozapine Norclozapine Respiratory Panel Ashley Adenovirus (Rapid PCR) B.pert (TEM-PCR) B.parapertussis DNA PCR C. pneumoniae DNA (PCR) Coronavirus OC43 (PCR) Coronavirus HKU1 (PCR) Coronavirus 229E (PCR) Coronavirus NL63 (PCR) Hepatitis A IgM Ab Hep Bs Antigen Hepatitis C Ab (EIA) Human Metapneumovir PCR Influenza A (RT-PCR) Influenza Type A (PCR) Influenza B (RT-PCR) Influenza Type B (PCR) M. pneumoniae (PCR) Parainfluenza 1 (PCR) Parainfluenza 2 (PCR) Parainfluenza 3 (PCR) Parainfluenza 4 (PCR) RSV (PCR) RSV RNA Qual (PCR) Entero/Rhino (PCR) SARS-CoV-2 RNA (RT-PCR) Blood Type Antibody Screen 06/07/23 06/07/23 06/08/23 21:04 21:04 00:12 WBC 18.5 H RBC 2.72 L Hgb 8.2 L Hct 26.9 L MCV 98.9 H MCH 30.1 MCHC 30.5 L RDW 14.9 Plt Count 297 MPV 10.2 Immature Gran % (Auto) 2.8 H Neut % (Auto) 77.7 H Lymph % (Auto) 14.5 L [place] % (Auto) 4.2 Eos % (Auto) 0.4 Baso % (Auto) 0.4 Lymph # (Auto) 2.7 [place] # (Auto) 0.8 Eos # (Auto) 0.1 Baso # (Auto) 0.1 Abs Immat Gran (auto) 0.51 H Absolute Neuts (auto) 14.4 H Absolute Nucleated RBC 0.000 Nucleated RBC % (auto) 0.0 Neutrophils % (Manual) Band Neutrophils % Lymphocytes % (Manual) Atypical Lymphs % (Man) Monocytes % (Manual) Eosinophils % (Manual) Metamyelocytes % Myelocytes % Promyelocytes % Abs Neuts (Manual) Lymphocytes # (Manual) Atyp Lymphs # (Manual) Monocytes # (Manual) Eosinophils # (Manual) Metamyelocytes # Myelocytes # Promyelocytes # Nucleated RBCs Smudge Cells Toxic Granulation Toxic Vacuolation Platelet Estimate Large Platelets Plt Morphology Comment RBC Morphology Polychromasia Hypochromasia Basophilic Stippling Spherocytes Tear Drop Cells Ovalocytes Rosa-Munday Bodies Jyoti Cells Acanthocytes (Spur) Schistocytes PT INR aPTT Heparin Protocol D-Dimer High Sensitivty O2 Saturation ABG pH at Pt Temp ABG pCO2 at Pt Temp ABG pO2 at Pt Temp ABG HCO3 ABG Base Excess (Actual) VBG pH VBG pCO2 VBG pO2 VBG HCO3 VBG O2 Saturation VBG Base Excess Sodium 148 H Potassium 3.3 Chloride 109 H Carbon Dioxide 30 H Anion Gap 12 BUN 24 H Creatinine 0.74 Estim Creat Clear Calc 96.1 Estimated GFR > 60 POC Glucose 168 H Random Glucose 183 H Lactic Acid 1.2 Lactic Acid F/U @ 2Hr Calcium 8.2 L Phosphorus 2.9 Magnesium 2.1 Total Bilirubin 0.7 Direct Bilirubin AST 30 ALT 46 H Alkaline Phosphatase 76 Ammonia Troponin I High Sens 4.2 D B-Natriuretic Peptide 1062 H Total Protein 6.4 L Albumin 3.3 L Lipase 25-OH Vitamin D Total Procalcitonin TSH 1.95 Cancelled Urine Color Urine Appearance Urine pH Ur Specific [place] Urine Protein Urine Glucose (UA) Urine Ketones Urine Blood Urine Nitrite Ur Leukocyte Esterase Urine RBC Urine WBC Ur Squamous Epith Cells Urine Bacteria Hyaline Casts Nasal Screen MRSA (PCR) Nasal S. aureus Screen Nasal MRSA/S.aureus Interp Stool Occult Blood Stl C. cayetanensis PCR Stool Rotavirus A PCR Stl Adenov F 40/41 PCR Stool Astrovirus (PCR) Stool Campylobacter PCR Stool Cryptosporidium PCR Stl Sh Tox Pr E STEC PCR Stool E coli O157 PCR Stl Enterotoxigenic E PCR Stool EPEC (PCR) Stool EAEC (PCR) Stl E. histolytica PCR Stool Giardia Lamblia PCR Stl P. shigelloides PCR Stool Salmonella PCR Stool Sapovirus (PCR) Stl Shigella/EIEC PCR St Y.enterocolitica PCR Stool Vibrio (PCR) Stl Vibrio cholerae PCR Stl Norovirus GI/GII PCR Random Vancomycin Valproic Acid Carbamazepine Lamotrigine Clozapine Norclozapine Respiratory Panel Ashley Adenovirus (Rapid PCR) B.pert (TEM-PCR) B.parapertussis DNA PCR C. pneumoniae DNA (PCR) Coronavirus OC43 (PCR) Coronavirus HKU1 (PCR) Coronavirus 229E (PCR) Coronavirus NL63 (PCR) Hepatitis A IgM Ab Hep Bs Antigen Hepatitis C Ab (EIA) Human Metapneumovir PCR Influenza A (RT-PCR) Influenza Type A (PCR) Influenza B (RT-PCR) Influenza Type B (PCR) M. pneumoniae (PCR) Parainfluenza 1 (PCR) Parainfluenza 2 (PCR) Parainfluenza 3 (PCR) Parainfluenza 4 (PCR) RSV (PCR) RSV RNA Qual (PCR) Entero/Rhino (PCR) SARS-CoV-2 RNA (RT-PCR) Blood Type Antibody Screen 06/08/23 06/08/23 06/08/23 04:54 04:59 05:36 WBC 15.7 H RBC 2.56 L Hgb 7.9 L Hct 25.8 L MCV 100.8 H MCH 30.9 MCHC 30.6 L RDW 14.8 Plt Count 256 MPV 10.2 Immature Gran % (Auto) 2.2 H Neut % (Auto) 77.7 H Lymph % (Auto) 14.4 L [place] % (Auto) 4.4 Eos % (Auto) 1.0 Baso % (Auto) 0.3 Lymph # (Auto) 2.3 [place] # (Auto) 0.7 Eos # (Auto) 0.2 Baso # (Auto) 0.0 Abs Immat Gran (auto) 0.34 H Absolute Neuts (auto) 12.2 H Absolute Nucleated RBC 0.000 Nucleated RBC % (auto) 0.0 Neutrophils % (Manual) Band Neutrophils % Lymphocytes % (Manual) Atypical Lymphs % (Man) Monocytes % (Manual) Eosinophils % (Manual) Metamyelocytes % Myelocytes % Promyelocytes % Abs Neuts (Manual) Lymphocytes # (Manual) Atyp Lymphs # (Manual) Monocytes # (Manual) Eosinophils # (Manual) Metamyelocytes # Myelocytes # Promyelocytes # Nucleated RBCs Smudge Cells Toxic Granulation Toxic Vacuolation Platelet Estimate Large Platelets Plt Morphology Comment RBC Morphology Polychromasia Hypochromasia Basophilic Stippling Spherocytes Tear Drop Cells Ovalocytes Rosa-Munday Bodies [place] Cells Acanthocytes (Spur) Schistocytes PT INR aPTT Heparin Protocol D-Dimer High Sensitivty O2 Saturation ABG pH at Pt Temp ABG pCO2 at Pt Temp ABG pO2 at Pt Temp ABG HCO3 ABG Base Excess (Actual) VBG pH 7.32 VBG pCO2 54 VBG pO2 49 VBG HCO3 28 H VBG O2 Saturation 75.0 VBG Base Excess 1.7 Sodium 148 H Potassium 3.3 Chloride 109 H Carbon Dioxide 24 Anion Gap 18 BUN 30 H Creatinine 0.82 Estim Creat Clear Calc 86.7 Estimated GFR > 60 POC Glucose Random Glucose 174 H Lactic Acid Lactic Acid F/U @ 2Hr Calcium 8.4 Phosphorus Magnesium Total Bilirubin 0.9 Direct Bilirubin AST 28 ALT 40 H Alkaline Phosphatase 66 Ammonia Troponin I High Sens 3.0 B-Natriuretic Peptide Total Protein 7.0 Albumin 4.2 Lipase 25-OH Vitamin D Total Procalcitonin TSH Urine Color Urine Appearance Urine pH Ur Specific [place] Urine Protein Urine Glucose (UA) Urine Ketones Urine Blood Urine Nitrite Ur Leukocyte Esterase Urine RBC Urine WBC Ur Squamous Epith Cells Urine Bacteria Hyaline Casts Nasal Screen MRSA (PCR) Nasal S. aureus Screen Nasal MRSA/S.aureus Interp Stool Occult Blood Stl C. cayetanensis PCR Stool Rotavirus A PCR Stl Adenov F PCR Stool Astrovirus (PCR) Stool Campylobacter PCR Stool Cryptosporidium PCR Stl Sh Tox Pr E STEC PCR Stool E coli O157 PCR Stl Enterotoxigenic E PCR Stool EPEC (PCR) Stool EAEC (PCR) Stl E. histolytica PCR Stool Giardia Lamblia PCR Stl P. shigelloides PCR Stool Salmonella PCR Stool Sapovirus (PCR) Stl Shigella/EIEC PCR St Y.enterocolitica PCR Stool Vibrio (PCR) Stl Vibrio cholerae PCR Stl Norovirus GI/GII PCR Random Vancomycin Valproic Acid Carbamazepine Lamotrigine Clozapine Norclozapine Respiratory Panel Ashley Adenovirus (Rapid PCR) B.pert (TEM-PCR) B.parapertussis DNA PCR C. pneumoniae DNA (PCR) Coronavirus OC43 (PCR) Coronavirus HKU1 (PCR) Coronavirus 229E (PCR) Coronavirus NL63 (PCR) Hepatitis A IgM Ab Hep Bs Antigen Hepatitis C Ab (EIA) Human Metapneumovir PCR Influenza A (RT-PCR) Influenza Type A (PCR) Influenza B (RT-PCR) Influenza Type B (PCR) M. pneumoniae (PCR) Parainfluenza 1 (PCR) Parainfluenza 2 (PCR) Parainfluenza 3 (PCR) Parainfluenza 4 (PCR) RSV (PCR) RSV RNA Qual (PCR) Entero/Rhino (PCR) SARS-CoV-2 RNA (RT-PCR) Blood Type Antibody Screen 06/08/23 06/08/23 06/08/23 08:22 08:23 08:26 WBC RBC Hgb Hct MCV MCH MCHC RDW Plt Count MPV Immature Gran % (Auto) Neut % (Auto) Lymph % (Auto) [place] % (Auto) Eos % (Auto) Baso % (Auto) Lymph # (Auto) [place] # (Auto) Eos # (Auto) Baso # (Auto) Abs Immat Gran (auto) Absolute Neuts (auto) Absolute Nucleated RBC Nucleated RBC % (auto) Neutrophils % (Manual) Band Neutrophils % Lymphocytes % (Manual) Atypical Lymphs % (Man) Monocytes % (Manual) Eosinophils % (Manual) Metamyelocytes % Myelocytes % Promyelocytes % Abs Neuts (Manual) Lymphocytes # (Manual) Atyp Lymphs # (Manual) Monocytes # (Manual) Eosinophils # (Manual) Metamyelocytes # Myelocytes # Promyelocytes # Nucleated RBCs Smudge Cells Toxic Granulation Toxic Vacuolation Platelet Estimate Large Platelets Plt Morphology Comment RBC Morphology Polychromasia Hypochromasia Basophilic Stippling Spherocytes Tear Drop Cells Ovalocytes Rosa-Munday Bodies Jyoti Cells Acanthocytes (Spur) Schistocytes PT INR aPTT Heparin Protocol D-Dimer High Sensitivty O2 Saturation ABG pH at Pt Temp ABG pCO2 at Pt Temp ABG pO2 at Pt Temp ABG HCO3 ABG Base Excess (Actual) VBG pH 7.28 L VBG pCO2 51 VBG pO2 101 VBG HCO3 24 VBG O2 Saturation Not Reportable VBG Base Excess -2.0 Sodium Potassium Chloride Carbon Dioxide Anion Gap BUN Creatinine Estim Creat Clear Calc Estimated GFR POC Glucose Random Glucose Lactic Acid Lactic Acid F/U @ 2Hr Calcium Phosphorus Magnesium Total Bilirubin Direct Bilirubin AST ALT Alkaline Phosphatase Ammonia Troponin I High Sens B-Natriuretic Peptide Total Protein Albumin Lipase 25-OH Vitamin D Total Procalcitonin TSH 0.54 Urine Color Urine Appearance Urine pH Ur Specific [place] Urine Protein Urine Glucose (UA) Urine Ketones Urine Blood Urine Nitrite Ur Leukocyte Esterase Urine RBC Urine WBC Ur Squamous Epith Cells Urine Bacteria Hyaline Casts Nasal Screen MRSA (PCR) Nasal S. aureus Screen Nasal MRSA/S.aureus Interp Stool Occult Blood Stl C. cayetanensis PCR Stool Rotavirus A PCR Stl Adenov F 40/41 PCR Stool Astrovirus (PCR) Stool Campylobacter PCR Stool Cryptosporidium PCR Stl Sh Tox Pr E STEC PCR Stool E coli O157 PCR Stl Enterotoxigenic E PCR Stool EPEC (PCR) Stool EAEC (PCR) Stl E. histolytica PCR Stool Giardia Lamblia PCR Stl P. shigelloides PCR Stool Salmonella PCR Stool Sapovirus (PCR) Stl Shigella/EIEC PCR St Y.enterocolitica PCR Stool Vibrio (PCR) Stl Vibrio cholerae PCR Stl Norovirus GI/GII PCR Random Vancomycin Valproic Acid 22.6 L Carbamazepine Lamotrigine 5.5 Clozapine 211 Norclozapine 67 Respiratory Panel Ashley Adenovirus (Rapid PCR) B.pert (TEM-PCR) B.parapertussis DNA PCR C. pneumoniae DNA (PCR) Coronavirus OC43 (PCR) Coronavirus HKU1 (PCR) Coronavirus 229E (PCR) Coronavirus NL63 (PCR) Hepatitis A IgM Ab Hep Bs Antigen Hepatitis C Ab (EIA) Human Metapneumovir PCR Influenza A (RT-PCR) Influenza Type A (PCR) Influenza B (RT-PCR) Influenza Type B (PCR) M. pneumoniae (PCR) Parainfluenza 1 (PCR) Parainfluenza 2 (PCR) Parainfluenza 3 (PCR) Parainfluenza 4 (PCR) RSV (PCR) RSV RNA Qual (PCR) Entero/Rhino (PCR) SARS-CoV-2 RNA (RT-PCR) Blood Type Antibody Screen 06/08/23 06/08/23 06/08/23 12:44 14:02 14:28 WBC 18.0 H RBC 2.43 L Hgb 7.5 L Hct 24.4 L MCV 100.4 H MCH 30.9 MCHC 30.7 L RDW 15.1 Plt Count 284 MPV 10.4 Immature Gran % (Auto) 3.3 H Neut % (Auto) 84.6 H Lymph % (Auto) 7.7 L [place] % (Auto) 4.1 Eos % (Auto) 0.1 Baso % (Auto) 0.2 Lymph # (Auto) 1.4 [place] # (Auto) 0.7 Eos # (Auto) 0.0 Baso # (Auto) 0.0 Abs Immat Gran (auto) 0.59 H Absolute Neuts (auto) 15.2 H Absolute Nucleated RBC 0.020 H Nucleated RBC % (auto) 0.1 Neutrophils % (Manual) Band Neutrophils % Lymphocytes % (Manual) Atypical Lymphs % (Man) Monocytes % (Manual) Eosinophils % (Manual) Metamyelocytes % Myelocytes % Promyelocytes % Abs Neuts (Manual) Lymphocytes # (Manual) Atyp Lymphs # (Manual) Monocytes # (Manual) Eosinophils # (Manual) Metamyelocytes # Myelocytes # Promyelocytes # Nucleated RBCs Smudge Cells Toxic Granulation Toxic Vacuolation Platelet Estimate Large Platelets Plt Morphology Comment RBC Morphology Polychromasia Hypochromasia Basophilic Stippling Spherocytes Tear Drop Cells Ovalocytes Rosa-Munday Bodies Jyoti Cells Acanthocytes (Spur) Schistocytes PT INR aPTT Heparin Protocol D-Dimer High Sensitivty O2 Saturation ABG pH at Pt Temp ABG pCO2 at Pt Temp ABG pO2 at Pt Temp ABG HCO3 ABG Base Excess (Actual) VBG pH 7.32 VBG pCO2 56 VBG pO2 58 VBG HCO3 29 H VBG O2 Saturation 84.0 VBG Base Excess 2.6 Sodium 150 H Potassium 3.8 Chloride 111 H Carbon Dioxide 27 Anion Gap 16 BUN 35 H Creatinine 1.01 Estim Creat Clear Calc 70.4 Estimated GFR 55 POC Glucose 226 H Random Glucose 228 H Lactic Acid Lactic Acid F/U @ 2Hr Calcium 9.1 D Phosphorus 2.9 Magnesium 2.2 Total Bilirubin 0.7 Direct Bilirubin AST 33 H ALT 42 H Alkaline Phosphatase 68 Ammonia Troponin I High Sens B-Natriuretic Peptide Total Protein 6.6 Albumin 3.8 Lipase 25-OH Vitamin D Total Procalcitonin TSH Urine Color Urine Appearance Urine pH Ur Specific [place] Urine Protein Urine Glucose (UA) Urine Ketones Urine Blood Urine Nitrite Ur Leukocyte Esterase Urine RBC Urine WBC Ur Squamous Epith Cells Urine Bacteria Hyaline Casts Nasal Screen MRSA (PCR) Nasal S. aureus Screen Nasal MRSA/S.aureus Interp Stool Occult Blood Stl C. cayetanensis PCR Stool Rotavirus A PCR Stl Adenov F 40/41 PCR Stool Astrovirus (PCR) Stool Campylobacter PCR Stool Cryptosporidium PCR Stl Sh Tox Pr E STEC PCR Stool E coli O157 PCR Stl Enterotoxigenic E PCR Stool EPEC (PCR) Stool EAEC (PCR) Stl E. histolytica PCR Stool Giardia Lamblia PCR Stl P. shigelloides PCR Stool Salmonella PCR Stool Sapovirus (PCR) Stl Shigella/EIEC PCR St Y.enterocolitica PCR Stool Vibrio (PCR) Stl Vibrio cholerae PCR Stl Norovirus GI/GII PCR Random Vancomycin Valproic Acid Carbamazepine Lamotrigine Clozapine Norclozapine Respiratory Panel Ashley Adenovirus (Rapid PCR) B.pert (TEM-PCR) B.parapertussis DNA PCR C. pneumoniae DNA (PCR) Coronavirus OC43 (PCR) Coronavirus HKU1 (PCR) Coronavirus 229E (PCR) Coronavirus NL63 (PCR) Hepatitis A IgM Ab Hep Bs Antigen Hepatitis C Ab (EIA) Human Metapneumovir PCR Influenza A (RT-PCR) Influenza Type A (PCR) Influenza B (RT-PCR) Influenza Type B (PCR) M. pneumoniae (PCR) Parainfluenza 1 (PCR) Parainfluenza 2 (PCR) Parainfluenza 3 (PCR) Parainfluenza 4 (PCR) RSV (PCR) RSV RNA Qual (PCR) Entero/Rhino (PCR) SARS-CoV-2 RNA (RT-PCR) Blood Type Antibody Screen 06/08/23 06/08/23 06/08/23 18:02 18:07 20:17 WBC RBC Hgb Hct MCV MCH MCHC RDW Plt Count MPV Immature Gran % (Auto) Neut % (Auto) Lymph % (Auto) [place] % (Auto) Eos % (Auto) Baso % (Auto) Lymph # (Auto) [place] # (Auto) Eos # (Auto) Baso # (Auto) Abs Immat Gran (auto) Absolute Neuts (auto) Absolute Nucleated RBC Nucleated RBC % (auto) Neutrophils % (Manual) Band Neutrophils % Lymphocytes % (Manual) Atypical Lymphs % (Man) Monocytes % (Manual) Eosinophils % (Manual) Metamyelocytes % Myelocytes % Promyelocytes % Abs Neuts (Manual) Lymphocytes # (Manual) Atyp Lymphs # (Manual) Monocytes # (Manual) Eosinophils # (Manual) Metamyelocytes # Myelocytes # Promyelocytes # Nucleated RBCs Smudge Cells Toxic Granulation Toxic Vacuolation Platelet Estimate Large Platelets Plt Morphology Comment RBC Morphology Polychromasia Hypochromasia Basophilic Stippling Spherocytes Tear Drop Cells Ovalocytes Rosa-Munday Bodies [place] Cells Acanthocytes (Spur) Schistocytes PT INR aPTT Heparin Protocol D-Dimer High Sensitivty O2 Saturation ABG pH at Pt Temp ABG pCO2 at Pt Temp ABG pO2 at Pt Temp ABG HCO3 ABG Base Excess (Actual) VBG pH 7.57 H VBG pCO2 31 VBG pO2 157 VBG HCO3 29 H VBG O2 Saturation 99.0 VBG Base Excess 7.0 Sodium Potassium Chloride Carbon Dioxide Anion Gap BUN Creatinine Estim Creat Clear Calc Estimated GFR POC Glucose 145 H Random Glucose Lactic Acid Lactic Acid F/U @ 2Hr Calcium Phosphorus Magnesium Total Bilirubin Direct Bilirubin AST ALT Alkaline Phosphatase Ammonia Troponin I High Sens B-Natriuretic Peptide Total Protein Albumin Lipase 25-OH Vitamin D Total Procalcitonin TSH Urine Color Urine Appearance Urine pH Ur Specific [place] Urine Protein Urine Glucose (UA) Urine Ketones Urine Blood Urine Nitrite Ur Leukocyte Esterase Urine RBC Urine WBC Ur Squamous Epith Cells Urine Bacteria Hyaline Casts Nasal Screen MRSA (PCR) Nasal S. aureus Screen Nasal MRSA/S.aureus Interp Stool Occult Blood Stl C. cayetanensis PCR Stool Rotavirus A PCR Stl Adenov F 40/41 PCR Stool Astrovirus (PCR) Stool Campylobacter PCR Stool Cryptosporidium PCR Stl Sh Tox Pr E STEC PCR Stool E coli O157 PCR Stl Enterotoxigenic E PCR Stool EPEC (PCR) Stool EAEC (PCR) Stl E. histolytica PCR Stool Giardia Lamblia PCR Stl P. shigelloides PCR Stool Salmonella PCR Stool Sapovirus (PCR) Stl Shigella/EIEC PCR St Y.enterocolitica PCR Stool Vibrio (PCR) Stl Vibrio cholerae PCR Stl Norovirus GI/GII PCR Random Vancomycin 21.7 H Valproic Acid Carbamazepine Lamotrigine Clozapine Norclozapine Respiratory Panel Ashley Adenovirus (Rapid PCR) B.pert (TEM-PCR) B.parapertussis DNA PCR C. pneumoniae DNA (PCR) Coronavirus OC43 (PCR) Coronavirus HKU1 (PCR) Coronavirus 229E (PCR) Coronavirus NL63 (PCR) Hepatitis A IgM Ab Hep Bs Antigen Hepatitis C Ab (EIA) Human Metapneumovir PCR Influenza A (RT-PCR) Influenza Type A (PCR) Influenza B (RT-PCR) Influenza Type B (PCR) M. pneumoniae (PCR) Parainfluenza 1 (PCR) Parainfluenza 2 (PCR) Parainfluenza 3 (PCR) Parainfluenza 4 (PCR) RSV (PCR) RSV RNA Qual (PCR) Entero/Rhino (PCR) SARS-CoV-2 RNA (RT-PCR) Blood Type Antibody Screen 06/09/23 06/09/23 06/09/23 00:03 05:10 05:11 WBC 13.2 H RBC 2.34 L Hgb 7.3 L Hct 23.1 L MCV 98.7 H MCH 31.2 MCHC 31.6 RDW 15.2 Plt Count 302 MPV 10.7 Immature Gran % (Auto) 1.7 H Neut % (Auto) 76.9 H Lymph % (Auto) 14.3 L [place] % (Auto) 4.8 Eos % (Auto) 2.0 Baso % (Auto) 0.3 Lymph # (Auto) 1.9 [place] # (Auto) 0.6 Eos # (Auto) 0.3 Baso # (Auto) 0.0 Abs Immat Gran (auto) 0.23 H Absolute Neuts (auto) 10.1 H Absolute Nucleated RBC 0.000 Nucleated RBC % (auto) 0.0 Neutrophils % (Manual) Band Neutrophils % Lymphocytes % (Manual) Atypical Lymphs % (Man) Monocytes % (Manual) Eosinophils % (Manual) Metamyelocytes % Myelocytes % Promyelocytes % Abs Neuts (Manual) Lymphocytes # (Manual) Atyp Lymphs # (Manual) Monocytes # (Manual) Eosinophils # (Manual) Metamyelocytes # Myelocytes # Promyelocytes # Nucleated RBCs Smudge Cells Toxic Granulation Toxic Vacuolation Platelet Estimate Large Platelets Plt Morphology Comment RBC Morphology Polychromasia Hypochromasia Basophilic Stippling Spherocytes Tear Drop Cells Ovalocytes Rosa-Munday Bodies [place] Cells Acanthocytes (Spur) Schistocytes PT INR aPTT Heparin Protocol D-Dimer High Sensitivty O2 Saturation ABG pH at Pt Temp ABG pCO2 at Pt Temp ABG pO2 at Pt Temp ABG HCO3 ABG Base Excess (Actual) VBG pH 7.53 H VBG pCO2 41 VBG pO2 43 VBG HCO3 35 H VBG O2 Saturation 76.0 VBG Base Excess 12.0 Sodium 153 H Potassium 3.1 L Chloride 111 H Carbon Dioxide 27 Anion Gap 18 BUN 30 H Creatinine 0.86 Estim Creat Clear Calc 86.7 Estimated GFR > 60 POC Glucose 139 H Random Glucose 156 H Lactic Acid Lactic Acid F/U @ 2Hr Calcium 9.0 Phosphorus 1.8 L Magnesium 2.1 Total Bilirubin Direct Bilirubin AST ALT Alkaline Phosphatase Ammonia Troponin I High Sens B-Natriuretic Peptide Total Protein Albumin 3.4 L Lipase 25-OH Vitamin D Total Procalcitonin TSH Urine Color Urine Appearance Urine pH Ur Specific [place] Urine Protein Urine Glucose (UA) Urine Ketones Urine Blood Urine Nitrite Ur Leukocyte Esterase Urine RBC Urine WBC Ur Squamous Epith Cells Urine Bacteria Hyaline Casts Nasal Screen MRSA (PCR) Nasal S. aureus Screen Nasal MRSA/S.aureus Interp Stool Occult Blood Stl C. cayetanensis PCR Stool Rotavirus A PCR Stl Adenov F 40/41 PCR Stool Astrovirus (PCR) Stool Campylobacter PCR Stool Cryptosporidium PCR Stl Sh Tox Pr E STEC PCR Stool E coli O157 PCR Stl Enterotoxigenic E PCR Stool EPEC (PCR) Stool EAEC (PCR) Stl E. histolytica PCR Stool Giardia Lamblia PCR Stl P. shigelloides PCR Stool Salmonella PCR Stool Sapovirus (PCR) Stl Shigella/EIEC PCR St Y.enterocolitica PCR Stool Vibrio (PCR) Stl Vibrio cholerae PCR Stl Norovirus GI/GII PCR Random Vancomycin Valproic Acid Carbamazepine Lamotrigine Clozapine Norclozapine Respiratory Panel Ashley Adenovirus (Rapid PCR) B.pert (TEM-PCR) B.parapertussis DNA PCR C. pneumoniae DNA (PCR) Coronavirus OC43 (PCR) Coronavirus HKU1 (PCR) Coronavirus 229E (PCR) Coronavirus NL63 (PCR) Hepatitis A IgM Ab Hep Bs Antigen Hepatitis C Ab (EIA) Human Metapneumovir PCR Influenza A (RT-PCR) Influenza Type A (PCR) Influenza B (RT-PCR) Influenza Type B (PCR) M. pneumoniae (PCR) Parainfluenza 1 (PCR) Parainfluenza 2 (PCR) Parainfluenza 3 (PCR) Parainfluenza 4 (PCR) RSV (PCR) RSV RNA Qual (PCR) Entero/Rhino (PCR) SARS-CoV-2 RNA (RT-PCR) Blood Type Antibody Screen 06/09/23 06/09/23 06/09/23 11:48 17:39 17:58 WBC RBC Hgb Hct MCV MCH MCHC RDW Plt Count MPV Immature Gran % (Auto) Neut % (Auto) Lymph % (Auto) [place] % (Auto) Eos % (Auto) Baso % (Auto) Lymph # (Auto) [place] # (Auto) Eos # (Auto) Baso # (Auto) Abs Immat Gran (auto) Absolute Neuts (auto) Absolute Nucleated RBC Nucleated RBC % (auto) Neutrophils % (Manual) Band Neutrophils % Lymphocytes % (Manual) Atypical Lymphs % (Man) Monocytes % (Manual) Eosinophils % (Manual) Metamyelocytes % Myelocytes % Promyelocytes % Abs Neuts (Manual) Lymphocytes # (Manual) Atyp Lymphs # (Manual) Monocytes # (Manual) Eosinophils # (Manual) Metamyelocytes # Myelocytes # Promyelocytes # Nucleated RBCs Smudge Cells Toxic Granulation Toxic Vacuolation Platelet Estimate Large Platelets Plt Morphology Comment RBC Morphology Polychromasia Hypochromasia Basophilic Stippling Spherocytes Tear Drop Cells Ovalocytes Rosa-Munday Bodies Jyoti Cells Acanthocytes (Spur) Schistocytes PT INR aPTT Heparin Protocol D-Dimer High Sensitivty O2 Saturation ABG pH at Pt Temp ABG pCO2 at Pt Temp ABG pO2 at Pt Temp ABG HCO3 ABG Base Excess (Actual) VBG pH VBG pCO2 VBG pO2 VBG HCO3 VBG O2 Saturation VBG Base Excess Sodium 154 H Potassium 2.9 L* Chloride 108 Carbon Dioxide 31 H Anion Gap 18 BUN 27 H Creatinine 0.95 Estim Creat Clear Calc 78.5 Estimated GFR 59 POC Glucose 140 H 175 H Random Glucose 205 H Lactic Acid Lactic Acid F/U @ 2Hr Calcium 9.1 Phosphorus 2.4 L Magnesium 1.7 Total Bilirubin Direct Bilirubin AST ALT Alkaline Phosphatase Ammonia Troponin I High Sens B-Natriuretic Peptide Total Protein Albumin Lipase 25-OH Vitamin D Total Procalcitonin TSH Urine Color Urine Appearance Urine pH Ur Specific [place] Urine Protein Urine Glucose (UA) Urine Ketones Urine Blood Urine Nitrite Ur Leukocyte Esterase Urine RBC Urine WBC Ur Squamous Epith Cells Urine Bacteria Hyaline Casts Nasal Screen MRSA (PCR) Nasal S. aureus Screen Nasal MRSA/S.aureus Interp Stool Occult Blood Stl C. cayetanensis PCR Stool Rotavirus A PCR Stl Adenov F 40/41 PCR Stool Astrovirus (PCR) Stool Campylobacter PCR Stool Cryptosporidium PCR Stl Sh Tox Pr E STEC PCR Stool E coli O157 PCR Stl Enterotoxigenic E PCR Stool EPEC (PCR) Stool EAEC (PCR) Stl E. histolytica PCR Stool Giardia Lamblia PCR Stl P. shigelloides PCR Stool Salmonella PCR Stool Sapovirus (PCR) Stl Shigella/EIEC PCR St Y.enterocolitica PCR Stool Vibrio (PCR) Stl Vibrio cholerae PCR Stl Norovirus GI/GII PCR Random Vancomycin Valproic Acid Carbamazepine Lamotrigine Clozapine Norclozapine Respiratory Panel Ashley Adenovirus (Rapid PCR) B.pert (TEM-PCR) B.parapertussis DNA PCR C. pneumoniae DNA (PCR) Coronavirus OC43 (PCR) Coronavirus HKU1 (PCR) Coronavirus 229E (PCR) Coronavirus NL63 (PCR) Hepatitis A IgM Ab Hep Bs Antigen Hepatitis C Ab (EIA) Human Metapneumovir PCR Influenza A (RT-PCR) Influenza Type A (PCR) Influenza B (RT-PCR) Influenza Type B (PCR) M. pneumoniae (PCR) Parainfluenza 1 (PCR) Parainfluenza 2 (PCR) Parainfluenza 3 (PCR) Parainfluenza 4 (PCR) RSV (PCR) RSV RNA Qual (PCR) Entero/Rhino (PCR) SARS-CoV-2 RNA (RT-PCR) Blood Type Antibody Screen 06/09/23 06/09/23 06/09/23 18:06 21:07 23:36 WBC RBC Hgb Hct MCV MCH MCHC RDW Plt Count MPV Immature Gran % (Auto) Neut % (Auto) Lymph % (Auto) [place] % (Auto) Eos % (Auto) Baso % (Auto) Lymph # (Auto) [place] # (Auto) Eos # (Auto) Baso # (Auto) Abs Immat Gran (auto) Absolute Neuts (auto) Absolute Nucleated RBC Nucleated RBC % (auto) Neutrophils % (Manual) Band Neutrophils % Lymphocytes % (Manual) Atypical Lymphs % (Man) Monocytes % (Manual) Eosinophils % (Manual) Metamyelocytes % Myelocytes % Promyelocytes % Abs Neuts (Manual) Lymphocytes # (Manual) Atyp Lymphs # (Manual) Monocytes # (Manual) Eosinophils # (Manual) Metamyelocytes # Myelocytes # Promyelocytes # Nucleated RBCs Smudge Cells Toxic Granulation Toxic Vacuolation Platelet Estimate Large Platelets Plt Morphology Comment RBC Morphology Polychromasia Hypochromasia Basophilic Stippling Spherocytes Tear Drop Cells Ovalocytes Rosa-Munday Bodies Jyoti Cells Acanthocytes (Spur) Schistocytes PT INR aPTT Heparin Protocol D-Dimer High Sensitivty O2 Saturation ABG pH at Pt Temp ABG pCO2 at Pt Temp ABG pO2 at Pt Temp ABG HCO3 ABG Base Excess (Actual) VBG pH 7.52 H VBG pCO2 43 VBG pO2 107 VBG HCO3 36 H VBG O2 Saturation TNP VBG Base Excess 12.4 Sodium Potassium Chloride Carbon Dioxide Anion Gap BUN Creatinine Estim Creat Clear Calc Estimated GFR POC Glucose 183 H Random Glucose Lactic Acid Lactic Acid F/U @ 2Hr Calcium Phosphorus Magnesium Total Bilirubin Direct Bilirubin AST ALT Alkaline Phosphatase Ammonia Troponin I High Sens B-Natriuretic Peptide Total Protein Albumin Lipase 25-OH Vitamin D Total Procalcitonin TSH Urine Color Urine Appearance Urine pH Ur Specific [place] Urine Protein Urine Glucose (UA) Urine Ketones Urine Blood Urine Nitrite Ur Leukocyte Esterase Urine RBC Urine WBC Ur Squamous Epith Cells Urine Bacteria Hyaline Casts Nasal Screen MRSA (PCR) Nasal S. aureus Screen Nasal MRSA/S.aureus Interp Stool Occult Blood Stl C. cayetanensis PCR Stool Rotavirus A PCR Stl Adenov F 40/41 PCR Stool Astrovirus (PCR) Stool Campylobacter PCR Stool Cryptosporidium PCR Stl Sh Tox Pr E STEC PCR Stool E coli O157 PCR Stl Enterotoxigenic E PCR Stool EPEC (PCR) Stool EAEC (PCR) Stl E. histolytica PCR Stool Giardia Lamblia PCR Stl P. shigelloides PCR Stool Salmonella PCR Stool Sapovirus (PCR) Stl Shigella/EIEC PCR St Y.enterocolitica PCR Stool Vibrio (PCR) Stl Vibrio cholerae PCR Stl Norovirus GI/GII PCR Random Vancomycin 17.2 Valproic Acid Carbamazepine Lamotrigine Clozapine Norclozapine Respiratory Panel Ashley Adenovirus (Rapid PCR) B.pert (TEM-PCR) B.parapertussis DNA PCR C. pneumoniae DNA (PCR) Coronavirus OC43 (PCR) Coronavirus HKU1 (PCR) Coronavirus 229E (PCR) Coronavirus NL63 (PCR) Hepatitis A IgM Ab Hep Bs Antigen Hepatitis C Ab (EIA) Human Metapneumovir PCR Influenza A (RT-PCR) Influenza Type A (PCR) Influenza B (RT-PCR) Influenza Type B (PCR) M. pneumoniae (PCR) Parainfluenza 1 (PCR) Parainfluenza 2 (PCR) Parainfluenza 3 (PCR) Parainfluenza 4 (PCR) RSV (PCR) RSV RNA Qual (PCR) Entero/Rhino (PCR) SARS-CoV-2 RNA (RT-PCR) Blood Type Antibody Screen 06/10/23 06/10/23 06/10/23 06:06 06:07 09:38 WBC 9.7 11.5 H RBC 2.70 L 2.86 L Hgb 8.2 L 8.8 L Hct 26.2 L 27.5 L MCV 97.0 96.2 MCH 30.4 30.8 MCHC 31.3 32.0 RDW 14.8 14.8 Plt Count 317 341 MPV 10.3 10.1 Immature Gran % (Auto) 1.3 H Neut % (Auto) 74.0 H Lymph % (Auto) 18.3 L [place] % (Auto) 4.4 Eos % (Auto) 1.5 Baso % (Auto) 0.5 Lymph # (Auto) 1.8 [place] # (Auto) 0.4 Eos # (Auto) 0.2 Baso # (Auto) 0.1 Abs Immat Gran (auto) 0.13 H Absolute Neuts (auto) 7.2 Absolute Nucleated RBC 0.000 0.020 H Nucleated RBC % (auto) 0.0 0.2 Neutrophils % (Manual) Band Neutrophils % Lymphocytes % (Manual) Atypical Lymphs % (Man) Monocytes % (Manual) Eosinophils % (Manual) Metamyelocytes % Myelocytes % Promyelocytes % Abs Neuts (Manual) Lymphocytes # (Manual) Atyp Lymphs # (Manual) Monocytes # (Manual) Eosinophils # (Manual) Metamyelocytes # Myelocytes # Promyelocytes # Nucleated RBCs Smudge Cells Toxic Granulation Toxic Vacuolation Platelet Estimate Large Platelets Plt Morphology Comment RBC Morphology Polychromasia Hypochromasia Basophilic Stippling Spherocytes Tear Drop Cells Ovalocytes Rosa-Munday Bodies Jyoti Cells Acanthocytes (Spur) Schistocytes PT 14.0 H INR 1.2 H aPTT Heparin Protocol 27.9 L D-Dimer High Sensitivty O2 Saturation ABG pH at Pt Temp ABG pCO2 at Pt Temp ABG pO2 at Pt Temp ABG HCO3 ABG Base Excess (Actual) VBG pH 7.63 H* VBG pCO2 37 VBG pO2 150 VBG HCO3 39 H VBG O2 Saturation 99.0 VBG Base Excess 17.2 Sodium 152 H Potassium 3.1 L Chloride 107 Carbon Dioxide 31 H Anion Gap 17 BUN 20 H Creatinine 0.78 Estim Creat Clear Calc 94.0 Estimated GFR > 60 POC Glucose Random Glucose 192 H Lactic Acid Lactic Acid F/U @ 2Hr Calcium 9.0 Phosphorus 2.9 Magnesium 1.6 Total Bilirubin Direct Bilirubin AST ALT Alkaline Phosphatase Ammonia Troponin I High Sens B-Natriuretic Peptide Total Protein Albumin Lipase 25-OH Vitamin D Total Procalcitonin TSH Urine Color Urine Appearance Urine pH Ur Specific [place] Urine Protein Urine Glucose (UA) Urine Ketones Urine Blood Urine Nitrite Ur Leukocyte Esterase Urine RBC Urine WBC Ur Squamous Epith Cells Urine Bacteria Hyaline Casts Nasal Screen MRSA (PCR) Nasal S. aureus Screen Nasal MRSA/S.aureus Interp Stool Occult Blood Stl C. cayetanensis PCR Stool Rotavirus A PCR Stl Adenov F 40/41 PCR Stool Astrovirus (PCR) Stool Campylobacter PCR Stool Cryptosporidium PCR Stl Sh Tox Pr E STEC PCR Stool E coli O157 PCR Stl Enterotoxigenic E PCR Stool EPEC (PCR) Stool EAEC (PCR) Stl E. histolytica PCR Stool Giardia Lamblia PCR Stl P. shigelloides PCR Stool Salmonella PCR Stool Sapovirus (PCR) Stl Shigella/EIEC PCR St Y.enterocolitica PCR Stool Vibrio (PCR) Stl Vibrio cholerae PCR Stl Norovirus GI/GII PCR Random Vancomycin Valproic Acid Carbamazepine Lamotrigine Clozapine Norclozapine Respiratory Panel Ashley Adenovirus (Rapid PCR) B.pert (TEM-PCR) B.parapertussis DNA PCR C. pneumoniae DNA (PCR) Coronavirus OC43 (PCR) Coronavirus HKU1 (PCR) Coronavirus 229E (PCR) Coronavirus NL63 (PCR) Hepatitis A IgM Ab Hep Bs Antigen Hepatitis C Ab (EIA) Human Metapneumovir PCR Influenza A (RT-PCR) Influenza Type A (PCR) Influenza B (RT-PCR) Influenza Type B (PCR) M. pneumoniae (PCR) Parainfluenza 1 (PCR) Parainfluenza 2 (PCR) Parainfluenza 3 (PCR) Parainfluenza 4 (PCR) RSV (PCR) RSV RNA Qual (PCR) Entero/Rhino (PCR) SARS-CoV-2 RNA (RT-PCR) Blood Type Antibody Screen 06/10/23 06/10/23 06/10/23 12:11 16:05 18:06 WBC RBC Hgb Hct MCV MCH MCHC RDW Plt Count MPV Immature Gran % (Auto) Neut % (Auto) Lymph % (Auto) [place] % (Auto) Eos % (Auto) Baso % (Auto) Lymph # (Auto) [place] # (Auto) Eos # (Auto) Baso # (Auto) Abs Immat Gran (auto) Absolute Neuts (auto) Absolute Nucleated RBC Nucleated RBC % (auto) Neutrophils % (Manual) Band Neutrophils % Lymphocytes % (Manual) Atypical Lymphs % (Man) Monocytes % (Manual) Eosinophils % (Manual) Metamyelocytes % Myelocytes % Promyelocytes % Abs Neuts (Manual) Lymphocytes # (Manual) Atyp Lymphs # (Manual) Monocytes # (Manual) Eosinophils # (Manual) Metamyelocytes # Myelocytes # Promyelocytes # Nucleated RBCs Smudge Cells Toxic Granulation Toxic Vacuolation Platelet Estimate Large Platelets Plt Morphology Comment RBC Morphology Polychromasia Hypochromasia Basophilic Stippling Spherocytes Tear Drop Cells Ovalocytes Rosa-Munday Bodies [place] Cells Acanthocytes (Spur) Schistocytes PT INR aPTT Heparin Protocol 33.0 L D-Dimer High Sensitivty O2 Saturation ABG pH at Pt Temp ABG pCO2 at Pt Temp ABG pO2 at Pt Temp ABG HCO3 ABG Base Excess (Actual) VBG pH VBG pCO2 VBG pO2 VBG HCO3 VBG O2 Saturation VBG Base Excess Sodium 153 H Potassium 3.1 L Chloride 104 Carbon Dioxide 35 H Anion Gap 17 BUN 20 H Creatinine 0.87 Estim Creat Clear Calc 84.2 Estimated GFR > 60 POC Glucose 214 H Random Glucose 189 H Lactic Acid Lactic Acid F/U @ 2Hr Calcium 8.5 Phosphorus 2.8 Magnesium 1.5 L Total Bilirubin Direct Bilirubin AST ALT Alkaline Phosphatase Ammonia Troponin I High Sens B-Natriuretic Peptide Total Protein Albumin Lipase 25-OH Vitamin D Total Procalcitonin TSH Urine Color Urine Appearance Urine pH Ur Specific [place] Urine Protein Urine Glucose (UA) Urine Ketones Urine Blood Urine Nitrite Ur Leukocyte Esterase Urine RBC Urine WBC Ur Squamous Epith Cells Urine Bacteria Hyaline Casts Nasal Screen MRSA (PCR) Nasal S. aureus Screen Nasal MRSA/S.aureus Interp Stool Occult Blood Stl C. cayetanensis PCR Stool Rotavirus A PCR Stl Adenov F 40/41 PCR Stool Astrovirus (PCR) Stool Campylobacter PCR Stool Cryptosporidium PCR Stl Sh Tox Pr E STEC PCR Stool E coli O157 PCR Stl Enterotoxigenic E PCR Stool EPEC (PCR) Stool EAEC (PCR) Stl E. histolytica PCR Stool Giardia Lamblia PCR Stl P. shigelloides PCR Stool Salmonella PCR Stool Sapovirus (PCR) Stl Shigella/EIEC PCR St Y.enterocolitica PCR Stool Vibrio (PCR) Stl Vibrio cholerae PCR Stl Norovirus GI/GII PCR Random Vancomycin Valproic Acid Carbamazepine Lamotrigine Clozapine Norclozapine Respiratory Panel Ashley Adenovirus (Rapid PCR) B.pert (TEM-PCR) B.parapertussis DNA PCR C. pneumoniae DNA (PCR) Coronavirus OC43 (PCR) Coronavirus HKU1 (PCR) Coronavirus 229E (PCR) Coronavirus NL63 (PCR) Hepatitis A IgM Ab Hep Bs Antigen Hepatitis C Ab (EIA) Human Metapneumovir PCR Influenza A (RT-PCR) Influenza Type A (PCR) Influenza B (RT-PCR) Influenza Type B (PCR) M. pneumoniae (PCR) Parainfluenza 1 (PCR) Parainfluenza 2 (PCR) Parainfluenza 3 (PCR) Parainfluenza 4 (PCR) RSV (PCR) RSV RNA Qual (PCR) Entero/Rhino (PCR) SARS-CoV-2 RNA (RT-PCR) Blood Type Antibody Screen 06/10/23 06/10/23 06/10/23 18:18 21:00 21:41 WBC RBC Hgb Hct MCV MCH MCHC RDW Plt Count MPV Immature Gran % (Auto) Neut % (Auto) Lymph % (Auto) [place] % (Auto) Eos % (Auto) Baso % (Auto) Lymph # (Auto) [place] # (Auto) Eos # (Auto) Baso # (Auto) Abs Immat Gran (auto) Absolute Neuts (auto) Absolute Nucleated RBC Nucleated RBC % (auto) Neutrophils % (Manual) Band Neutrophils % Lymphocytes % (Manual) Atypical Lymphs % (Man) Monocytes % (Manual) Eosinophils % (Manual) Metamyelocytes % Myelocytes % Promyelocytes % Abs Neuts (Manual) Lymphocytes # (Manual) Atyp Lymphs # (Manual) Monocytes # (Manual) Eosinophils # (Manual) Metamyelocytes # Myelocytes # Promyelocytes # Nucleated RBCs Smudge Cells Toxic Granulation Toxic Vacuolation Platelet Estimate Large Platelets Plt Morphology Comment RBC Morphology Polychromasia Hypochromasia Basophilic Stippling Spherocytes Tear Drop Cells Ovalocytes Rosa-Munday Bodies [place] Cells Acanthocytes (Spur) Schistocytes PT INR aPTT Heparin Protocol D-Dimer High Sensitivty O2 Saturation ABG pH at Pt Temp ABG pCO2 at Pt Temp ABG pO2 at Pt Temp ABG HCO3 ABG Base Excess (Actual) VBG pH 7.58 H VBG pCO2 47 VBG pO2 109 VBG HCO3 44 H VBG O2 Saturation 100.0 VBG Base Excess 20.9 Sodium Potassium Chloride Carbon Dioxide Anion Gap BUN Creatinine Estim Creat Clear Calc Estimated GFR POC Glucose 192 H Random Glucose Lactic Acid Lactic Acid F/U @ 2Hr Calcium Phosphorus Magnesium Total Bilirubin Direct Bilirubin AST ALT Alkaline Phosphatase Ammonia Troponin I High Sens B-Natriuretic Peptide Total Protein Albumin Lipase 25-OH Vitamin D Total Procalcitonin TSH Urine Color Urine Appearance Urine pH Ur Specific [place] Urine Protein Urine Glucose (UA) Urine Ketones Urine Blood Urine Nitrite Ur Leukocyte Esterase Urine RBC Urine WBC Ur Squamous Epith Cells Urine Bacteria Hyaline Casts Nasal Screen MRSA (PCR) Nasal S. aureus Screen Nasal MRSA/S.aureus Interp Stool Occult Blood Stl C. cayetanensis PCR Stool Rotavirus A PCR Stl Adenov F 40/ PCR Stool Astrovirus (PCR) Stool Campylobacter PCR Stool Cryptosporidium PCR Stl Sh Tox Pr E STEC PCR Stool E coli O157 PCR Stl Enterotoxigenic E PCR Stool EPEC (PCR) Stool EAEC (PCR) Stl E. histolytica PCR Stool Giardia Lamblia PCR Stl P. shigelloides PCR Stool Salmonella PCR Stool Sapovirus (PCR) Stl Shigella/EIEC PCR St Y.enterocolitica PCR Stool Vibrio (PCR) Stl Vibrio cholerae PCR Stl Norovirus GI/GII PCR Random Vancomycin 14.6 L Valproic Acid Carbamazepine Lamotrigine Clozapine Norclozapine Respiratory Panel Ashley Adenovirus (Rapid PCR) B.pert (TEM-PCR) B.parapertussis DNA PCR C. pneumoniae DNA (PCR) Coronavirus OC43 (PCR) Coronavirus HKU1 (PCR) Coronavirus 229E (PCR) Coronavirus NL63 (PCR) Hepatitis A IgM Ab Hep Bs Antigen Hepatitis C Ab (EIA) Human Metapneumovir PCR Influenza A (RT-PCR) Influenza Type A (PCR) Influenza B (RT-PCR) Influenza Type B (PCR) M. pneumoniae (PCR) Parainfluenza 1 (PCR) Parainfluenza 2 (PCR) Parainfluenza 3 (PCR) Parainfluenza 4 (PCR) RSV (PCR) RSV RNA Qual (PCR) Entero/Rhino (PCR) SARS-CoV-2 RNA (RT-PCR) Blood Type Antibody Screen 06/10/23 06/10/23 06/11/23 22:31 23:47 05:49 WBC 11.7 H RBC 2.70 L Hgb 8.2 L Hct 26.6 L MCV 98.5 H MCH 30.4 MCHC 30.8 L RDW 14.9 Plt Count 296 MPV 10.0 Immature Gran % (Auto) 1.3 H Neut % (Auto) 71.9 Lymph % (Auto) 19.5 L [place] % (Auto) 4.1 Eos % (Auto) 2.7 Baso % (Auto) 0.5 Lymph # (Auto) 2.3 [place] # (Auto) 0.5 Eos # (Auto) 0.3 Baso # (Auto) 0.1 Abs Immat Gran (auto) 0.15 H Absolute Neuts (auto) 8.4 H Absolute Nucleated RBC 0.020 H Nucleated RBC % (auto) 0.2 Neutrophils % (Manual) Band Neutrophils % Lymphocytes % (Manual) Atypical Lymphs % (Man) Monocytes % (Manual) Eosinophils % (Manual) Metamyelocytes % Myelocytes % Promyelocytes % Abs Neuts (Manual) Lymphocytes # (Manual) Atyp Lymphs # (Manual) Monocytes # (Manual) Eosinophils # (Manual) Metamyelocytes # Myelocytes # Promyelocytes # Nucleated RBCs Smudge Cells Toxic Granulation Toxic Vacuolation Platelet Estimate Large Platelets Plt Morphology Comment RBC Morphology Polychromasia Hypochromasia Basophilic Stippling Spherocytes Tear Drop Cells Ovalocytes Rosa-Munday Bodies Jyoti Cells Acanthocytes (Spur) Schistocytes PT 14.7 H INR 1.2 H aPTT Heparin Protocol 50.1 L D 56.4 D-Dimer High Sensitivty O2 Saturation ABG pH at Pt Temp ABG pCO2 at Pt Temp ABG pO2 at Pt Temp ABG HCO3 ABG Base Excess (Actual) VBG pH VBG pCO2 VBG pO2 VBG HCO3 VBG O2 Saturation VBG Base Excess Sodium 148 H Potassium 3.1 L Chloride 104 Carbon Dioxide 32 H Anion Gap 15 BUN 20 H Creatinine 0.86 Estim Creat Clear Calc 85.3 Estimated GFR > 60 POC Glucose 172 H Random Glucose 193 H Lactic Acid Lactic Acid F/U @ 2Hr Calcium 8.4 Phosphorus 2.9 Magnesium 1.9 Total Bilirubin Direct Bilirubin AST ALT Alkaline Phosphatase Ammonia Troponin I High Sens B-Natriuretic Peptide Total Protein Albumin Lipase 25-OH Vitamin D Total Procalcitonin TSH Urine Color Urine Appearance Urine pH Ur Specific [place] Urine Protein Urine Glucose (UA) Urine Ketones Urine Blood Urine Nitrite Ur Leukocyte Esterase Urine RBC Urine WBC Ur Squamous Epith Cells Urine Bacteria Hyaline Casts Nasal Screen MRSA (PCR) Nasal S. aureus Screen Nasal MRSA/S.aureus Interp Stool Occult Blood Stl C. cayetanensis PCR Stool Rotavirus A PCR Stl Adenov F 40/41 PCR Stool Astrovirus (PCR) Stool Campylobacter PCR Stool Cryptosporidium PCR Stl Sh Tox Pr E STEC PCR Stool E coli O157 PCR Stl Enterotoxigenic E PCR Stool EPEC (PCR) Stool EAEC (PCR) Stl E. histolytica PCR Stool Giardia Lamblia PCR Stl P. shigelloides PCR Stool Salmonella PCR Stool Sapovirus (PCR) Stl Shigella/EIEC PCR St Y.enterocolitica PCR Stool Vibrio (PCR) Stl Vibrio cholerae PCR Stl Norovirus GI/GII PCR Random Vancomycin Valproic Acid Carbamazepine Lamotrigine Clozapine Norclozapine Respiratory Panel Ashley Adenovirus (Rapid PCR) B.pert (TEM-PCR) B.parapertussis DNA PCR C. pneumoniae DNA (PCR) Coronavirus OC43 (PCR) Coronavirus HKU1 (PCR) Coronavirus 229E (PCR) Coronavirus NL63 (PCR) Hepatitis A IgM Ab Hep Bs Antigen Hepatitis C Ab (EIA) Human Metapneumovir PCR Influenza A (RT-PCR) Influenza Type A (PCR) Influenza B (RT-PCR) Influenza Type B (PCR) M. pneumoniae (PCR) Parainfluenza 1 (PCR) Parainfluenza 2 (PCR) Parainfluenza 3 (PCR) Parainfluenza 4 (PCR) RSV (PCR) RSV RNA Qual (PCR) Entero/Rhino (PCR) SARS-CoV-2 RNA (RT-PCR) Blood Type Antibody Screen 06/11/23 06/11/23 06/11/23 05:56 05:58 11:45 WBC RBC Hgb Hct MCV MCH MCHC RDW Plt Count MPV Immature Gran % (Auto) Neut % (Auto) Lymph % (Auto) [place] % (Auto) Eos % (Auto) Baso % (Auto) Lymph # (Auto) [place] # (Auto) Eos # (Auto) Baso # (Auto) Abs Immat Gran (auto) Absolute Neuts (auto) Absolute Nucleated RBC Nucleated RBC % (auto) Neutrophils % (Manual) Band Neutrophils % Lymphocytes % (Manual) Atypical Lymphs % (Man) Monocytes % (Manual) Eosinophils % (Manual) Metamyelocytes % Myelocytes % Promyelocytes % Abs Neuts (Manual) Lymphocytes # (Manual) Atyp Lymphs # (Manual) Monocytes # (Manual) Eosinophils # (Manual) Metamyelocytes # Myelocytes # Promyelocytes # Nucleated RBCs Smudge Cells Toxic Granulation Toxic Vacuolation Platelet Estimate Large Platelets Plt Morphology Comment RBC Morphology Polychromasia Hypochromasia Basophilic Stippling Spherocytes Tear Drop Cells Ovalocytes Rosa-Munday Bodies Jyoti Cells Acanthocytes (Spur) Schistocytes PT INR aPTT Heparin Protocol 55.3 D-Dimer High Sensitivty O2 Saturation ABG pH at Pt Temp ABG pCO2 at Pt Temp ABG pO2 at Pt Temp ABG HCO3 ABG Base Excess (Actual) VBG pH 7.57 H VBG pCO2 40 VBG pO2 202 VBG HCO3 37 H VBG O2 Saturation 99.0 VBG Base Excess 14.2 Sodium Potassium Chloride Carbon Dioxide Anion Gap BUN Creatinine Estim Creat Clear Calc Estimated GFR POC Glucose 175 H Random Glucose Lactic Acid Lactic Acid F/U @ 2Hr Calcium Phosphorus Magnesium Total Bilirubin Direct Bilirubin AST ALT Alkaline Phosphatase Ammonia Troponin I High Sens B-Natriuretic Peptide Total Protein Albumin Lipase 25-OH Vitamin D Total Procalcitonin TSH Urine Color Urine Appearance Urine pH Ur Specific [place] Urine Protein Urine Glucose (UA) Urine Ketones Urine Blood Urine Nitrite Ur Leukocyte Esterase Urine RBC Urine WBC Ur Squamous Epith Cells Urine Bacteria Hyaline Casts Nasal Screen MRSA (PCR) Nasal S. aureus Screen Nasal MRSA/S.aureus Interp Stool Occult Blood Stl C. cayetanensis PCR Stool Rotavirus A PCR Stl Adenov F 40/41 PCR Stool Astrovirus (PCR) Stool Campylobacter PCR Stool Cryptosporidium PCR Stl Sh Tox Pr E STEC PCR Stool E coli O157 PCR Stl Enterotoxigenic E PCR Stool EPEC (PCR) Stool EAEC (PCR) Stl E. histolytica PCR Stool Giardia Lamblia PCR Stl P. shigelloides PCR Stool Salmonella PCR Stool Sapovirus (PCR) Stl Shigella/EIEC PCR St Y.enterocolitica PCR Stool Vibrio (PCR) Stl Vibrio cholerae PCR Stl Norovirus GI/GII PCR Random Vancomycin Valproic Acid Carbamazepine Lamotrigine Clozapine Norclozapine Respiratory Panel Ashley Adenovirus (Rapid PCR) B.pert (TEM-PCR) B.parapertussis DNA PCR C. pneumoniae DNA (PCR) Coronavirus OC43 (PCR) Coronavirus HKU1 (PCR) Coronavirus 229E (PCR) Coronavirus NL63 (PCR) Hepatitis A IgM Ab Hep Bs Antigen Hepatitis C Ab (EIA) Human Metapneumovir PCR Influenza A (RT-PCR) Influenza Type A (PCR) Influenza B (RT-PCR) Influenza Type B (PCR) M. pneumoniae (PCR) Parainfluenza 1 (PCR) Parainfluenza 2 (PCR) Parainfluenza 3 (PCR) Parainfluenza 4 (PCR) RSV (PCR) RSV RNA Qual (PCR) Entero/Rhino (PCR) SARS-CoV-2 RNA (RT-PCR) Blood Type Antibody Screen 06/11/23 06/11/23 06/11/23 12:28 17:56 18:00 WBC RBC Hgb Hct MCV MCH MCHC RDW Plt Count MPV Immature Gran % (Auto) Neut % (Auto) Lymph % (Auto) [place] % (Auto) Eos % (Auto) Baso % (Auto) Lymph # (Auto) [place] # (Auto) Eos # (Auto) Baso # (Auto) Abs Immat Gran (auto) Absolute Neuts (auto) Absolute Nucleated RBC Nucleated RBC % (auto) Neutrophils % (Manual) Band Neutrophils % Lymphocytes % (Manual) Atypical Lymphs % (Man) Monocytes % (Manual) Eosinophils % (Manual) Metamyelocytes % Myelocytes % Promyelocytes % Abs Neuts (Manual) Lymphocytes # (Manual) Atyp Lymphs # (Manual) Monocytes # (Manual) Eosinophils # (Manual) Metamyelocytes # Myelocytes # Promyelocytes # Nucleated RBCs Smudge Cells Toxic Granulation Toxic Vacuolation Platelet Estimate Large Platelets Plt Morphology Comment RBC Morphology Polychromasia Hypochromasia Basophilic Stippling Spherocytes Tear Drop Cells Ovalocytes Rosa-Munday Bodies Jyoti Cells Acanthocytes (Spur) Schistocytes PT INR aPTT Heparin Protocol D-Dimer High Sensitivty O2 Saturation ABG pH at Pt Temp ABG pCO2 at Pt Temp ABG pO2 at Pt Temp ABG HCO3 ABG Base Excess (Actual) VBG pH VBG pCO2 VBG pO2 VBG HCO3 VBG O2 Saturation VBG Base Excess Sodium 147 H Potassium 3.4 Chloride 105 Carbon Dioxide 30 H Anion Gap 15 BUN 20 H Creatinine 0.82 Estim Creat Clear Calc 87.6 Estimated GFR > 60 POC Glucose 161 H 154 H Random Glucose 158 H Lactic Acid Lactic Acid F/U @ 2Hr Calcium 8.2 L Phosphorus 3.0 Magnesium 1.9 Total Bilirubin Direct Bilirubin AST ALT Alkaline Phosphatase Ammonia Troponin I High Sens B-Natriuretic Peptide Total Protein Albumin Lipase 25-OH Vitamin D Total Procalcitonin TSH Urine Color Urine Appearance Urine pH Ur Specific [place] Urine Protein Urine Glucose (UA) Urine Ketones Urine Blood Urine Nitrite Ur Leukocyte Esterase Urine RBC Urine WBC Ur Squamous Epith Cells Urine Bacteria Hyaline Casts Nasal Screen MRSA (PCR) Nasal S. aureus Screen Nasal MRSA/S.aureus Interp Stool Occult Blood Stl C. cayetanensis PCR Stool Rotavirus A PCR Stl Adenov F 40/ PCR Stool Astrovirus (PCR) Stool Campylobacter PCR Stool Cryptosporidium PCR Stl Sh Tox Pr E STEC PCR Stool E coli O157 PCR Stl Enterotoxigenic E PCR Stool EPEC (PCR) Stool EAEC (PCR) Stl E. histolytica PCR Stool Giardia Lamblia PCR Stl P. shigelloides PCR Stool Salmonella PCR Stool Sapovirus (PCR) Stl Shigella/EIEC PCR St Y.enterocolitica PCR Stool Vibrio (PCR) Stl Vibrio cholerae PCR Stl Norovirus GI/GII PCR Random Vancomycin Valproic Acid Carbamazepine Lamotrigine Clozapine Norclozapine Respiratory Panel Ashley Adenovirus (Rapid PCR) B.pert (TEM-PCR) B.parapertussis DNA PCR C. pneumoniae DNA (PCR) Coronavirus OC43 (PCR) Coronavirus HKU1 (PCR) Coronavirus 229E (PCR) Coronavirus NL63 (PCR) Hepatitis A IgM Ab Hep Bs Antigen Hepatitis C Ab (EIA) Human Metapneumovir PCR Influenza A (RT-PCR) Influenza Type A (PCR) Influenza B (RT-PCR) Influenza Type B (PCR) M. pneumoniae (PCR) Parainfluenza 1 (PCR) Parainfluenza 2 (PCR) Parainfluenza 3 (PCR) Parainfluenza 4 (PCR) RSV (PCR) RSV RNA Qual (PCR) Entero/Rhino (PCR) SARS-CoV-2 RNA (RT-PCR) Blood Type Antibody Screen 06/11/23 06/11/23 06/12/23 20:58 23:10 04:51 WBC 10.7 RBC 2.45 L Hgb 7.5 L Hct 24.4 L MCV 99.6 H MCH 30.6 MCHC 30.7 L RDW 14.7 Plt Count 268 MPV 9.3 L Immature Gran % (Auto) 1.1 H Neut % (Auto) 64.6 Lymph % (Auto) 25.3 [place] % (Auto) 3.5 Eos % (Auto) 4.8 H Baso % (Auto) 0.7 Lymph # (Auto) 2.7 [place] # (Auto) 0.4 Eos # (Auto) 0.5 H Baso # (Auto) 0.1 Abs Immat Gran (auto) 0.12 H Absolute Neuts (auto) 6.9 Absolute Nucleated RBC 0.020 H Nucleated RBC % (auto) 0.2 Neutrophils % (Manual) Band Neutrophils % Lymphocytes % (Manual) Atypical Lymphs % (Man) Monocytes % (Manual) Eosinophils % (Manual) Metamyelocytes % Myelocytes % Promyelocytes % Abs Neuts (Manual) Lymphocytes # (Manual) Atyp Lymphs # (Manual) Monocytes # (Manual) Eosinophils # (Manual) Metamyelocytes # Myelocytes # Promyelocytes # Nucleated RBCs Smudge Cells Toxic Granulation Toxic Vacuolation Platelet Estimate Large Platelets Plt Morphology Comment RBC Morphology Polychromasia Hypochromasia Basophilic Stippling Spherocytes Tear Drop Cells Ovalocytes Rosa-Munday Bodies Jyoti Cells Acanthocytes (Spur) Schistocytes PT INR aPTT Heparin Protocol D-Dimer High Sensitivty O2 Saturation ABG pH at Pt Temp ABG pCO2 at Pt Temp ABG pO2 at Pt Temp ABG HCO3 ABG Base Excess (Actual) VBG pH VBG pCO2 VBG pO2 VBG HCO3 VBG O2 Saturation VBG Base Excess Sodium 145 Potassium 3.2 L Chloride 105 Carbon Dioxide 30 H Anion Gap 13 BUN 21 H Creatinine 0.87 0.84 Estim Creat Clear Calc 82.6 84.5 Estimated GFR > 60 > 60 POC Glucose 162 H Random Glucose 143 H Lactic Acid Lactic Acid F/U @ 2Hr Calcium 8.3 L Phosphorus 3.2 Magnesium 1.9 Total Bilirubin Direct Bilirubin AST ALT Alkaline Phosphatase Ammonia Troponin I High Sens B-Natriuretic Peptide Total Protein Albumin Lipase 25-OH Vitamin D Total Procalcitonin TSH Urine Color Urine Appearance Urine pH Ur Specific [place] Urine Protein Urine Glucose (UA) Urine Ketones Urine Blood Urine Nitrite Ur Leukocyte Esterase Urine RBC Urine WBC Ur Squamous Epith Cells Urine Bacteria Hyaline Casts Nasal Screen MRSA (PCR) Nasal S. aureus Screen Nasal MRSA/S.aureus Interp Stool Occult Blood Stl C. cayetanensis PCR Stool Rotavirus A PCR Stl Adenov F 40/41 PCR Stool Astrovirus (PCR) Stool Campylobacter PCR Stool Cryptosporidium PCR Stl Sh Tox Pr E STEC PCR Stool E coli O157 PCR Stl Enterotoxigenic E PCR Stool EPEC (PCR) Stool EAEC (PCR) Stl E. histolytica PCR Stool Giardia Lamblia PCR Stl P. shigelloides PCR Stool Salmonella PCR Stool Sapovirus (PCR) Stl Shigella/EIEC PCR St Y.enterocolitica PCR Stool Vibrio (PCR) Stl Vibrio cholerae PCR Stl Norovirus GI/GII PCR Random Vancomycin 16.0 Valproic Acid Carbamazepine Lamotrigine Clozapine Norclozapine Respiratory Panel Ashley Adenovirus (Rapid PCR) B.pert (TEM-PCR) B.parapertussis DNA PCR C. pneumoniae DNA (PCR) Coronavirus OC43 (PCR) Coronavirus HKU1 (PCR) Coronavirus 229E (PCR) Coronavirus NL63 (PCR) Hepatitis A IgM Ab Hep Bs Antigen Hepatitis C Ab (EIA) Human Metapneumovir PCR Influenza A (RT-PCR) Influenza Type A (PCR) Influenza B (RT-PCR) Influenza Type B (PCR) M. pneumoniae (PCR) Parainfluenza 1 (PCR) Parainfluenza 2 (PCR) Parainfluenza 3 (PCR) Parainfluenza 4 (PCR) RSV (PCR) RSV RNA Qual (PCR) Entero/Rhino (PCR) SARS-CoV-2 RNA (RT-PCR) Blood Type Antibody Screen 06/12/23 06/12/23 06/12/23 06:10 09:38 10:10 WBC RBC Hgb Hct MCV MCH MCHC RDW Plt Count MPV Immature Gran % (Auto) Neut % (Auto) Lymph % (Auto) [place] % (Auto) Eos % (Auto) Baso % (Auto) Lymph # (Auto) [place] # (Auto) Eos # (Auto) Baso # (Auto) Abs Immat Gran (auto) Absolute Neuts (auto) Absolute Nucleated RBC Nucleated RBC % (auto) Neutrophils % (Manual) Band Neutrophils % Lymphocytes % (Manual) Atypical Lymphs % (Man) Monocytes % (Manual) Eosinophils % (Manual) Metamyelocytes % Myelocytes % Promyelocytes % Abs Neuts (Manual) Lymphocytes # (Manual) Atyp Lymphs # (Manual) Monocytes # (Manual) Eosinophils # (Manual) Metamyelocytes # Myelocytes # Promyelocytes # Nucleated RBCs Smudge Cells Toxic Granulation Toxic Vacuolation Platelet Estimate Large Platelets Plt Morphology Comment RBC Morphology Polychromasia Hypochromasia Basophilic Stippling Spherocytes Tear Drop Cells Ovalocytes Rosa-Munday Bodies [place] Cells Acanthocytes (Spur) Schistocytes PT INR aPTT Heparin Protocol 48.2 L 48.6 L D-Dimer High Sensitivty O2 Saturation ABG pH at Pt Temp ABG pCO2 at Pt Temp ABG pO2 at Pt Temp ABG HCO3 ABG Base Excess (Actual) VBG pH VBG pCO2 VBG pO2 VBG HCO3 VBG O2 Saturation VBG Base Excess Sodium Potassium Chloride Carbon Dioxide Anion Gap BUN Creatinine Estim Creat Clear Calc Estimated GFR POC Glucose Random Glucose Lactic Acid Lactic Acid F/U @ 2Hr Calcium Phosphorus Magnesium Total Bilirubin Direct Bilirubin AST ALT Alkaline Phosphatase Ammonia Troponin I High Sens B-Natriuretic Peptide Total Protein Albumin Lipase 25-OH Vitamin D Total Procalcitonin TSH Urine Color Urine Appearance Urine pH Ur Specific [place] Urine Protein Urine Glucose (UA) Urine Ketones Urine Blood Urine Nitrite Ur Leukocyte Esterase Urine RBC Urine WBC Ur Squamous Epith Cells Urine Bacteria Hyaline Casts Nasal Screen MRSA (PCR) Nasal S. aureus Screen Nasal MRSA/S.aureus Interp Stool Occult Blood NEGATIVE Stl C. cayetanensis PCR Stool Rotavirus A PCR Stl Adenov F 40/41 PCR Stool Astrovirus (PCR) Stool Campylobacter PCR Stool Cryptosporidium PCR Stl Sh Tox Pr E STEC PCR Stool E coli O157 PCR Stl Enterotoxigenic E PCR Stool EPEC (PCR) Stool EAEC (PCR) Stl E. histolytica PCR Stool Giardia Lamblia PCR Stl P. shigelloides PCR Stool Salmonella PCR Stool Sapovirus (PCR) Stl Shigella/EIEC PCR St Y.enterocolitica PCR Stool Vibrio (PCR) Stl Vibrio cholerae PCR Stl Norovirus GI/GII PCR Random Vancomycin Valproic Acid Carbamazepine Lamotrigine Clozapine Norclozapine Respiratory Panel Ashley Adenovirus (Rapid PCR) B.pert (TEM-PCR) B.parapertussis DNA PCR C. pneumoniae DNA (PCR) Coronavirus OC43 (PCR) Coronavirus HKU1 (PCR) Coronavirus 229E (PCR) Coronavirus NL63 (PCR) Hepatitis A IgM Ab Hep Bs Antigen Hepatitis C Ab (EIA) Human Metapneumovir PCR Influenza A (RT-PCR) Influenza Type A (PCR) Influenza B (RT-PCR) Influenza Type B (PCR) M. pneumoniae (PCR) Parainfluenza 1 (PCR) Parainfluenza 2 (PCR) Parainfluenza 3 (PCR) Parainfluenza 4 (PCR) RSV (PCR) RSV RNA Qual (PCR) Entero/Rhino (PCR) SARS-CoV-2 RNA (RT-PCR) Blood Type A Negative Antibody Screen NEGATIVE 06/12/23 11:51 WBC RBC Hgb Hct MCV MCH MCHC RDW Plt Count MPV Immature Gran % (Auto) Neut % (Auto) Lymph % (Auto) [place] % (Auto) Eos % (Auto) Baso % (Auto) Lymph # (Auto) [place] # (Auto) Eos # (Auto) Baso # (Auto) Abs Immat Gran (auto) Absolute Neuts (auto) Absolute Nucleated RBC Nucleated RBC % (auto) Neutrophils % (Manual) Band Neutrophils % Lymphocytes % (Manual) Atypical Lymphs % (Man) Monocytes % (Manual) Eosinophils % (Manual) Metamyelocytes % Myelocytes % Promyelocytes % Abs Neuts (Manual) Lymphocytes # (Manual) Atyp Lymphs # (Manual) Monocytes # (Manual) Eosinophils # (Manual) Metamyelocytes # Myelocytes # Promyelocytes # Nucleated RBCs Smudge Cells Toxic Granulation Toxic Vacuolation Platelet Estimate Large Platelets Plt Morphology Comment RBC Morphology Polychromasia Hypochromasia Basophilic Stippling Spherocytes Tear Drop Cells Ovalocytes Rosa-Munday Bodies [place] Cells Acanthocytes (Spur) Schistocytes PT INR aPTT Heparin Protocol D-Dimer High Sensitivty O2 Saturation ABG pH at Pt Temp ABG pCO2 at Pt Temp ABG pO2 at Pt Temp ABG HCO3 ABG Base Excess (Actual) VBG pH VBG pCO2 VBG pO2 VBG HCO3 VBG O2 Saturation VBG Base Excess Sodium Potassium Chloride Carbon Dioxide Anion Gap BUN Creatinine Estim Creat Clear Calc Estimated GFR POC Glucose 137 H Random Glucose Lactic Acid Lactic Acid F/U @ 2Hr Calcium Phosphorus Magnesium Total Bilirubin Direct Bilirubin AST ALT Alkaline Phosphatase Ammonia Troponin I High Sens B-Natriuretic Peptide Total Protein Albumin Lipase 25-OH Vitamin D Total Procalcitonin TSH Urine Color Urine Appearance Urine pH Ur Specific [place] Urine Protein Urine Glucose (UA) Urine Ketones Urine Blood Urine Nitrite Ur Leukocyte Esterase Urine RBC Urine WBC Ur Squamous Epith Cells Urine Bacteria Hyaline Casts Nasal Screen MRSA (PCR) Nasal S. aureus Screen Nasal MRSA/S.aureus Interp Stool Occult Blood Stl C. cayetanensis PCR Stool Rotavirus A PCR Stl Adenov F 40/41 PCR Stool Astrovirus (PCR) Stool Campylobacter PCR Stool Cryptosporidium PCR Stl Sh Tox Pr E STEC PCR Stool E coli O157 PCR Stl Enterotoxigenic E PCR Stool EPEC (PCR) Stool EAEC (PCR) Stl E. histolytica PCR Stool Giardia Lamblia PCR Stl P. shigelloides PCR Stool Salmonella PCR Stool Sapovirus (PCR) Stl Shigella/EIEC PCR St Y.enterocolitica PCR Stool Vibrio (PCR) Stl Vibrio cholerae PCR Stl Norovirus GI/GII PCR Random Vancomycin Valproic Acid Carbamazepine Lamotrigine Clozapine Norclozapine Respiratory Panel Ashley Adenovirus (Rapid PCR) B.pert (TEM-PCR) B.parapertussis DNA PCR C. pneumoniae DNA (PCR) Coronavirus OC43 (PCR) Coronavirus HKU1 (PCR) Coronavirus 229E (PCR) Coronavirus NL63 (PCR) Hepatitis A IgM Ab Hep Bs Antigen Hepatitis C Ab (EIA) Human Metapneumovir PCR Influenza A (RT-PCR) Influenza Type A (PCR) Influenza B (RT-PCR) Influenza Type B (PCR) M. pneumoniae (PCR) Parainfluenza 1 (PCR) Parainfluenza 2 (PCR) Parainfluenza 3 (PCR) Parainfluenza 4 (PCR) RSV (PCR) RSV RNA Qual (PCR) Entero/Rhino (PCR) SARS-CoV-2 RNA (RT-PCR) Blood Type Antibody Screen Assessment and Plan Final Anesthetic Review Family History of Problems with Anesthesia: No History of Problems with Anesthesia: No
[2023-06-12] MEDS: LORazepam 2 MG/ML VIAL 0.5 MG IVPUSH (13:34)
--- NOTE | 2023-06-12 14:27 | HO.ANESPROP2 ---
[facility] Active Problems Active Problems: All Active Problems Aspiration into airway (Acute) High degree atrioventricular block (Acute) Persistent atrial fibrillation (Acute) Paroxysmal atrial fibrillation (Acute) Septic shock (Acute) Asystole (Acute) Type II diabetes mellitus (Acute) Pulmonary aspiration (Acute) Acute pulmonary edema (Acute) Acute respiratory failure with hypoxia (Acute) Acute congestive heart failure (Acute) Acute dehydration (Acute) Hypocalcemia (Acute) Hypomagnesemia (Acute) Acute hypokalemia (Acute) Viral syndrome (Acute) Fever (Acute) Acute diarrhea (Acute) Bipolar disorder (Acute) Delusional disorder, persecutory type (Acute) Schizoaffective disorder, bipolar type (Acute) Bipolar affective disorder, manic, severe, with psychotic behavior (Acute) PTSD (post-traumatic stress disorder) (Acute) Past Medical History Medical History Hypertension Hyperlipidemia Type II diabetes mellitus PTSD (post-traumatic stress disorder) Functional capacity: independent ambulation Patient : No Family History Family history of problems with anesthesia: No Surgical History Surgical History History of cholecystectomy History of Problems with Anesthesia: No Social History Social History Household Members: Other Housing: Other Housing Other:: [facility] facility Do you presently have visiting nurse or other home services: No Comment: sitter in room Patient Tobacco Use Status: Never used Tobacco Tobacco use type: Cigarette e-Cigarette/Vaping Use: Never Used Substance Use Type: Caffiene service: No Sexual orientation: Straight/Heterosexual Meds Allergies Allergy/AdvReac Type Severity Reaction Status Date / Time amoxicillin Allergy Unknown Unknown Uncoded 05/27/23 14:06 Pt states no food allergy Allergy Unknown Unknown Uncoded 05/27/23 14:06 Active Medications: Current Medications Acetaminophen (Acetaminophen 325 Mg Tablet) 975 mg PO Q6H PRN PRN Reason: Fever >101 Last Admin: 06/07/23 15:22 Dose: 975 mg Al Hydroxide/Mg Hydroxide (Magnesium Hydrox/Alum Hydrox 30 Ml Oral.Susp) 30 ml PO Q6H PRN PRN Reason: Heartburn/Nausea Last Admin: 05/29/23 05:11 Dose: 30 ml Famotidine (Famotidine/Pf 20 Mg/2 Ml Vial) 20 mg IVPUSH DAILY [facility] Last Admin: 06/12/23 07:35 Dose: 20 mg Furosemide (Furosemide 20 Mg/2 Ml Vial) 10 mg IVPUSH BID@0900,1800 [facility]; Protocol Last Admin: 06/12/23 07:35 Dose: 10 mg Glucose (Glucose Gel 15 Gm Gel..Gram.) 15 gm PO Q15M PRN; Protocol PRN Reason: per Hypoglycemia Standing Ord. Heparin Sodium (Porcine) (Heparin Sodium,Porcine 5,000 Unit/Ml Vial) 4,500 unit 40 unit/kg (4500 unit) IVPUSH PROTOCOL BOLUS PRN; Protocol PRN Reason: 40 unit/kg - Heparin Protocol Last Admin: 06/12/23 06:29 Dose: 4,500 unit Heparin Sodium (Porcine) (Heparin Sodium,Porcine 5,000 Unit/Ml Vial) 9,000 unit 80 unit/kg (9000 unit) IVPUSH PROTOCOL BOLUS PRN; Protocol PRN Reason: 80 unit/kg - Heparin Protocol Last Admin: 06/10/23 16:39 Dose: 9,000 unit Hydromorphone HCl (Hydromorphone Hcl 0.5 Mg/0.5 Ml Syringe) 0.5 mg IVPUSH Q2H PRN; Protocol PRN Reason: Pain, Moderate(Pain Scale 4-6) Last Admin: 06/09/23 18:06 Dose: 0.5 mg Dextrose (D10) 250 mls @ 750 mls/hr IV Q15M PRN; Protocol PRN Reason: per Hypoglycemia Standing Ord. Piperacillin Sod/Tazobactam (Sod 4.5 gm/ Sodium Chloride) 100 mls @ 200 mls/hr IV Q6H [facility] Last Infusion: 06/12/23 12:54 Dose: Infused Vancomycin HCl 750 mg/ Sodium (Chloride) 265 mls @ 265 mls/hr IV Q12H [facility] Last Infusion: 06/12/23 13:34 Dose: Infused Valproic Acid 750 mg/ Dextrose 57.5 mls @ 57.5 mls/hr IV BID [facility] Last Infusion: 06/12/23 08:58 Dose: Infused Heparin Sodium/Sodium Chloride (Heparin Sodium,Porcine/1/2ns) 25,000 unit in 250 mls @ 0 mls/hr IVCONT .Q0M [facility]; Protocol Last Titration: 06/12/23 11:56 Dose: Infused Insulin Human Lispro (Insulin Lispro 100 Unit/Ml 3 Ml Vial) 0 unit SUBCUT Q6H [facility]; Protocol Last Admin: 06/12/23 11:57 Dose: Not Given Lorazepam (Lorazepam 2 Mg/Ml Vial) 0.5 mg IVPUSH Q2H PRN PRN Reason: Agitation Last Admin: 06/12/23 13:34 Dose: 0.5 mg Ondansetron HCl (Ondansetron Hcl 4 Mg/2 Ml Vial) 4 mg IVPUSH Q8H PRN PRN Reason: Nausea and Vomiting Pharmacy Consult (Consult Rx Vancomycin Dosing) 1 each MISCELLANE DAILY PRN PRN Reason: Consult order Sodium Chloride (0.9 % Sodium Chloride Flush 3 Ml Syringe) 3 ml IVFLUSH QSHIFT [facility] Last Admin: 06/12/23 07:35 Dose: 3 ml Thyroid (Thyroid,Pork 30 Mg Tablet) 120 mg PO DAILY@06 [facility] Last Admin: 06/10/23 06:10 Dose: Not Given Home Medications ?Medication ?Instructions ?Recorded ?Confirmed ?Last Taken ?Type acetaminophen 325 mg tablet 650 mg PO Q6H PRN Pain 05/27/23 05/27/23 Unknown History atorvastatin 40 mg tablet 40 mg PO BEDTIME 05/27/23 05/27/23 Unknown History clozapine 100 mg tablet 100 mg PO BID 05/27/23 05/27/23 Unknown History clozapine 50 mg tablet 50 mg PO BEDTIME 05/27/23 05/27/23 Unknown History divalproex 250 mg tablet,delayed 250 mg PO BID 05/27/23 05/27/23 Unknown History release (Depakote) divalproex 500 mg tablet,delayed 500 mg PO BID 05/27/23 05/27/23 Unknown History release (Depakote) lorazepam 1 mg tablet 1 mg PO Q4H PRN becca 05/27/23 05/27/23 Unknown History magnesium hydroxide 400 mg/5 mL 30 ml PO BEDTIME PRN Constipation 05/27/23 05/27/23 Unknown History oral suspension (Milk of Magnesia) melatonin 3 mg tablet 9 mg PO BEDTIME PRN Insomnia 05/27/23 05/27/23 Unknown History thyroid (pork) 120 mg tablet ([employer] 120 mg PO DAILY@0630 05/27/23 05/27/23 Unknown History Thyroid) Exam Height,Weight and Vital Signs: Height 5 ft 7 in Weight 109.8 kg Last Vital Signs Temp 98.5 F 06/12/23 12:00 Pulse 88 06/12/23 14:00 Resp 20 06/12/23 14:00 BP 119/59 L 06/12/23 14:00 Pulse Ox 93 06/12/23 14:00 O2 Del Method High Flow Nasal Cannula 06/12/23 14:00 O2 Flow Rate 35 06/12/23 14:00 FiO2 45 06/12/23 14:00 Oxygen Flow Rate 15 05/29/23 06:00 Pertinent Lab Results Pertinent Lab Results: Laboratory Tests 05/27/23 05/27/23 05/27/23 13:55 14:38 15:46 WBC 11.0 H RBC 4.19 L Hgb 13.2 Hct 39.1 MCV 93.3 MCH 31.5 MCHC 33.8 RDW 13.4 Plt Count 157 L MPV 10.4 Immature Gran % (Auto) 1.4 H Neut % (Auto) 86.1 H Lymph % (Auto) 7.7 L [place] % (Auto) 4.0 Eos % (Auto) 0.5 Baso % (Auto) 0.3 Lymph # (Auto) 0.9 L [place] # (Auto) 0.4 Eos # (Auto) 0.1 Baso # (Auto) 0.0 Abs Immat Gran (auto) 0.15 H Absolute Neuts (auto) 9.5 H Absolute Nucleated RBC 0.020 H Nucleated RBC % (auto) 0.2 Neutrophils % (Manual) Band Neutrophils % Lymphocytes % (Manual) Atypical Lymphs % (Man) Monocytes % (Manual) Eosinophils % (Manual) Metamyelocytes % Myelocytes % Promyelocytes % Abs Neuts (Manual) Lymphocytes # (Manual) Atyp Lymphs # (Manual) Monocytes # (Manual) Eosinophils # (Manual) Metamyelocytes # Myelocytes # Promyelocytes # Nucleated RBCs Smudge Cells Toxic Granulation Toxic Vacuolation Platelet Estimate Large Platelets Plt Morphology Comment RBC Morphology Polychromasia Hypochromasia Basophilic Stippling Spherocytes Tear Drop Cells Ovalocytes [place] Bodies [place] Cells Acanthocytes (Spur) Schistocytes PT 14.1 H INR 1.2 H aPTT Heparin Protocol D-Dimer High Sensitivty O2 Saturation ABG pH at Pt Temp ABG pCO2 at Pt Temp ABG pO2 at Pt Temp ABG HCO3 ABG Base Excess (Actual) VBG pH VBG pCO2 VBG pO2 VBG HCO3 VBG O2 Saturation VBG Base Excess Sodium 135 Potassium 2.8 L* D Chloride 101 Carbon Dioxide 26 Anion Gap 11 L BUN 21 H Creatinine 0.82 Estim Creat Clear Calc 85.4 Estimated GFR > 60 POC Glucose Random Glucose 122 H Lactic Acid 2.3 H* Lactic Acid F/U @ 2Hr Calcium 7.5 L D Phosphorus Magnesium 1.5 L Total Bilirubin 0.4 Direct Bilirubin 0.2 AST 46 H ALT 28 Alkaline Phosphatase 62 Ammonia Troponin I High Sens 11.4 B-Natriuretic Peptide 19 Total Protein 5.6 L Albumin 3.1 L Lipase 45 25-OH Vitamin D Total Procalcitonin 0.32 TSH 0.83 Urine Color Urine Appearance Urine pH Ur Specific [place] Urine Protein Urine Glucose (UA) Urine Ketones Urine Blood Urine Nitrite Ur Leukocyte Esterase Urine RBC Urine WBC Ur Squamous Epith Cells Urine Bacteria Hyaline Casts Nasal Screen MRSA (PCR) Nasal S. aureus Screen Nasal MRSA/S.aureus Interp Stool Occult Blood Stl C. cayetanensis PCR Not Detected Stool Rotavirus A PCR Not Detected Stl Adenov F 40/41 PCR Not Detected Stool Astrovirus (PCR) Not Detected Stool Campylobacter PCR Not Detected Stool Cryptosporidium PCR Not Detected Stl Sh Tox Pr E STEC PCR Not Detected Stool E coli O157 PCR Not applicable Stl Enterotoxigenic E PCR Not Detected Stool EPEC (PCR) Not Detected Stool EAEC (PCR) Not Detected Stl E. histolytica PCR Not Detected Stool Giardia Lamblia PCR Not Detected Stl P. shigelloides PCR Not Detected Stool Salmonella PCR Not Detected Stool Sapovirus (PCR) Not Detected Stl Shigella/EIEC PCR Not Detected St Y.enterocolitica PCR Not Detected Stool Vibrio (PCR) Not Detected Stl Vibrio cholerae PCR Not Detected Stl Norovirus GI/GII PCR Not Detected Random Vancomycin Valproic Acid Carbamazepine Lamotrigine Clozapine Norclozapine Respiratory Panel Ashley Adenovirus (Rapid PCR) B.pert (TEM-PCR) B.parapertussis DNA PCR C. pneumoniae DNA (PCR) Coronavirus OC43 (PCR) Coronavirus HKU1 (PCR) Coronavirus 229E (PCR) Coronavirus NL63 (PCR) Hepatitis A IgM Ab Hep Bs Antigen Hepatitis C Ab (EIA) Human Metapneumovir PCR Influenza A (RT-PCR) Influenza Type A (PCR) NEGATIVE Influenza B (RT-PCR) Influenza Type B (PCR) NEGATIVE M. pneumoniae (PCR) Parainfluenza 1 (PCR) Parainfluenza 2 (PCR) Parainfluenza 3 (PCR) Parainfluenza 4 (PCR) RSV (PCR) RSV RNA Qual (PCR) NEGATIVE Entero/Rhino (PCR) SARS-CoV-2 RNA (RT-PCR) NEGATIVE Blood Type Antibody Screen 05/27/23 05/27/23 05/28/23 16:13 20:41 03:43 WBC RBC Hgb Hct MCV MCH MCHC RDW Plt Count MPV Immature Gran % (Auto) Neut % (Auto) Lymph % (Auto) [place] % (Auto) Eos % (Auto) Baso % (Auto) Lymph # (Auto) [place] # (Auto) Eos # (Auto) Baso # (Auto) Abs Immat Gran (auto) Absolute Neuts (auto) Absolute Nucleated RBC Nucleated RBC % (auto) Neutrophils % (Manual) Band Neutrophils % Lymphocytes % (Manual) Atypical Lymphs % (Man) Monocytes % (Manual) Eosinophils % (Manual) Metamyelocytes % Myelocytes % Promyelocytes % Abs Neuts (Manual) Lymphocytes # (Manual) Atyp Lymphs # (Manual) Monocytes # (Manual) Eosinophils # (Manual) Metamyelocytes # Myelocytes # Promyelocytes # Nucleated RBCs Smudge Cells Toxic Granulation Toxic Vacuolation Platelet Estimate Large Platelets Plt Morphology Comment RBC Morphology Polychromasia Hypochromasia Basophilic Stippling Spherocytes Tear Drop Cells Ovalocytes [place] Bodies [place] Cells Acanthocytes (Spur) Schistocytes PT INR aPTT Heparin Protocol D-Dimer High Sensitivty O2 Saturation ABG pH at Pt Temp ABG pCO2 at Pt Temp ABG pO2 at Pt Temp ABG HCO3 ABG Base Excess (Actual) VBG pH VBG pCO2 VBG pO2 VBG HCO3 VBG O2 Saturation VBG Base Excess Sodium Potassium Chloride Carbon Dioxide Anion Gap BUN Creatinine Estim Creat Clear Calc Estimated GFR POC Glucose 122 H Random Glucose Lactic Acid Lactic Acid F/U @ 2Hr 1.2 Calcium Phosphorus Magnesium Total Bilirubin Direct Bilirubin AST ALT Alkaline Phosphatase Ammonia Troponin I High Sens B-Natriuretic Peptide Total Protein Albumin Lipase 25-OH Vitamin D Total Procalcitonin TSH Urine Color Dark Yellow Urine Appearance Turbid Urine pH 6.5 Ur Specific [place] >= 1.030 H Urine Protein 30 (1+) H Urine Glucose (UA) Negative Urine Ketones 15 Urine Blood Moderate (2+) H Urine Nitrite Negative Ur Leukocyte Esterase Moderate (2+) H Urine RBC >20 H Urine WBC 6-10 H Ur Squamous Epith Cells 3-5 Urine Bacteria 4+ Hyaline Casts 6-10 Nasal Screen MRSA (PCR) Nasal S. aureus Screen Nasal MRSA/S.aureus Interp Stool Occult Blood Stl C. cayetanensis PCR Stool Rotavirus A PCR Stl Adenov F 40/41 PCR Stool Astrovirus (PCR) Stool Campylobacter PCR Stool Cryptosporidium PCR Stl Sh Tox Pr E STEC PCR Stool E coli O157 PCR Stl Enterotoxigenic E PCR Stool EPEC (PCR) Stool EAEC (PCR) Stl E. histolytica PCR Stool Giardia Lamblia PCR Stl P. shigelloides PCR Stool Salmonella PCR Stool Sapovirus (PCR) Stl Shigella/EIEC PCR St Y.enterocolitica PCR Stool Vibrio (PCR) Stl Vibrio cholerae PCR Stl Norovirus GI/GII PCR Random Vancomycin Valproic Acid Carbamazepine Lamotrigine Clozapine Norclozapine Respiratory Panel Ashley Adenovirus (Rapid PCR) B.pert (TEM-PCR) B.parapertussis DNA PCR C. pneumoniae DNA (PCR) Coronavirus OC43 (PCR) Coronavirus HKU1 (PCR) Coronavirus 229E (PCR) Coronavirus NL63 (PCR) Hepatitis A IgM Ab Hep Bs Antigen Hepatitis C Ab (EIA) Human Metapneumovir PCR Influenza A (RT-PCR) Influenza Type A (PCR) Influenza B (RT-PCR) Influenza Type B (PCR) M. pneumoniae (PCR) Parainfluenza 1 (PCR) Parainfluenza 2 (PCR) Parainfluenza 3 (PCR) Parainfluenza 4 (PCR) RSV (PCR) RSV RNA Qual (PCR) Entero/Rhino (PCR) SARS-CoV-2 RNA (RT-PCR) Blood Type Antibody Screen 05/28/23 05/28/23 05/28/23 06:09 07:13 12:03 WBC RBC Hgb Hct MCV MCH MCHC RDW Plt Count MPV Immature Gran % (Auto) Neut % (Auto) Lymph % (Auto) [place] % (Auto) Eos % (Auto) Baso % (Auto) Lymph # (Auto) [place] # (Auto) Eos # (Auto) Baso # (Auto) Abs Immat Gran (auto) Absolute Neuts (auto) Absolute Nucleated RBC Nucleated RBC % (auto) Neutrophils % (Manual) Band Neutrophils % Lymphocytes % (Manual) Atypical Lymphs % (Man) Monocytes % (Manual) Eosinophils % (Manual) Metamyelocytes % Myelocytes % Promyelocytes % Abs Neuts (Manual) Lymphocytes # (Manual) Atyp Lymphs # (Manual) Monocytes # (Manual) Eosinophils # (Manual) Metamyelocytes # Myelocytes # Promyelocytes # Nucleated RBCs Smudge Cells Toxic Granulation Toxic Vacuolation Platelet Estimate Large Platelets Plt Morphology Comment RBC Morphology Polychromasia Hypochromasia Basophilic Stippling Spherocytes Tear Drop Cells Ovalocytes [place] Bodies Jyoti Cells Acanthocytes (Spur) Schistocytes PT INR aPTT Heparin Protocol D-Dimer High Sensitivty O2 Saturation ABG pH at Pt Temp ABG pCO2 at Pt Temp ABG pO2 at Pt Temp ABG HCO3 ABG Base Excess (Actual) VBG pH VBG pCO2 VBG pO2 VBG HCO3 VBG O2 Saturation VBG Base Excess Sodium 138 Potassium 3.4 D Chloride 108 Carbon Dioxide 22 Anion Gap 11 L BUN 16 Creatinine 0.67 Estim Creat Clear Calc 104.6 Estimated GFR > 60 POC Glucose 116 H 152 H Random Glucose 120 H Lactic Acid Lactic Acid F/U @ 2Hr Calcium 7.2 L Phosphorus Magnesium 2.1 Total Bilirubin 0.4 Direct Bilirubin AST 103 H ALT 59 H Alkaline Phosphatase 52 Ammonia Troponin I High Sens B-Natriuretic Peptide Total Protein 5.4 L Albumin 3.2 L Lipase 25-OH Vitamin D Total Procalcitonin TSH Urine Color Urine Appearance Urine pH Ur Specific [place] Urine Protein Urine Glucose (UA) Urine Ketones Urine Blood Urine Nitrite Ur Leukocyte Esterase Urine RBC Urine WBC Ur Squamous Epith Cells Urine Bacteria Hyaline Casts Nasal Screen MRSA (PCR) Nasal S. aureus Screen Nasal MRSA/S.aureus Interp Stool Occult Blood Stl C. cayetanensis PCR Stool Rotavirus A PCR Stl Adenov F 40/41 PCR Stool Astrovirus (PCR) Stool Campylobacter PCR Stool Cryptosporidium PCR Stl Sh Tox Pr E STEC PCR Stool E coli O157 PCR Stl Enterotoxigenic E PCR Stool EPEC (PCR) Stool EAEC (PCR) Stl E. histolytica PCR Stool Giardia Lamblia PCR Stl P. shigelloides PCR Stool Salmonella PCR Stool Sapovirus (PCR) Stl Shigella/EIEC PCR St Y.enterocolitica PCR Stool Vibrio (PCR) Stl Vibrio cholerae PCR Stl Norovirus GI/GII PCR Random Vancomycin Valproic Acid Carbamazepine Lamotrigine Clozapine Norclozapine Respiratory Panel Ashley Adenovirus (Rapid PCR) B.pert (TEM-PCR) B.parapertussis DNA PCR C. pneumoniae DNA (PCR) Coronavirus OC43 (PCR) Coronavirus HKU1 (PCR) Coronavirus 229E (PCR) Coronavirus NL63 (PCR) Hepatitis A IgM Ab Hep Bs Antigen Hepatitis C Ab (EIA) Human Metapneumovir PCR Influenza A (RT-PCR) Influenza Type A (PCR) Influenza B (RT-PCR) Influenza Type B (PCR) M. pneumoniae (PCR) Parainfluenza 1 (PCR) Parainfluenza 2 (PCR) Parainfluenza 3 (PCR) Parainfluenza 4 (PCR) RSV (PCR) RSV RNA Qual (PCR) Entero/Rhino (PCR) SARS-CoV-2 RNA (RT-PCR) Blood Type Antibody Screen 05/28/23 05/28/23 05/28/23 14:49 16:11 19:26 WBC RBC Hgb Hct MCV MCH MCHC RDW Plt Count MPV Immature Gran % (Auto) Neut % (Auto) Lymph % (Auto) [place] % (Auto) Eos % (Auto) Baso % (Auto) Lymph # (Auto) [place] # (Auto) Eos # (Auto) Baso # (Auto) Abs Immat Gran (auto) Absolute Neuts (auto) Absolute Nucleated RBC Nucleated RBC % (auto) Neutrophils % (Manual) Band Neutrophils % Lymphocytes % (Manual) Atypical Lymphs % (Man) Monocytes % (Manual) Eosinophils % (Manual) Metamyelocytes % Myelocytes % Promyelocytes % Abs Neuts (Manual) Lymphocytes # (Manual) Atyp Lymphs # (Manual) Monocytes # (Manual) Eosinophils # (Manual) Metamyelocytes # Myelocytes # Promyelocytes # Nucleated RBCs Smudge Cells Toxic Granulation Toxic Vacuolation Platelet Estimate Large Platelets Plt Morphology Comment RBC Morphology Polychromasia Hypochromasia Basophilic Stippling Spherocytes Tear Drop Cells Ovalocytes [place] Bodies Jyoti Cells Acanthocytes (Spur) Schistocytes PT INR aPTT Heparin Protocol D-Dimer High Sensitivty O2 Saturation ABG pH at Pt Temp ABG pCO2 at Pt Temp ABG pO2 at Pt Temp ABG HCO3 ABG Base Excess (Actual) VBG pH VBG pCO2 VBG pO2 VBG HCO3 VBG O2 Saturation VBG Base Excess Sodium Potassium Chloride Carbon Dioxide Anion Gap BUN Creatinine Estim Creat Clear Calc Estimated GFR POC Glucose 213 H 128 H Random Glucose Lactic Acid Lactic Acid F/U @ 2Hr Calcium 7.1 L Phosphorus Magnesium Total Bilirubin Direct Bilirubin AST ALT Alkaline Phosphatase Ammonia Troponin I High Sens B-Natriuretic Peptide Total Protein Albumin Lipase 25-OH Vitamin D Total 24.3 L Procalcitonin TSH Urine Color Urine Appearance Urine pH Ur Specific [place] Urine Protein Urine Glucose (UA) Urine Ketones Urine Blood Urine Nitrite Ur Leukocyte Esterase Urine RBC Urine WBC Ur Squamous Epith Cells Urine Bacteria Hyaline Casts Nasal Screen MRSA (PCR) Nasal S. aureus Screen Nasal MRSA/S.aureus Interp Stool Occult Blood Stl C. cayetanensis PCR Stool Rotavirus A PCR Stl Adenov F 40/41 PCR Stool Astrovirus (PCR) Stool Campylobacter PCR Stool Cryptosporidium PCR Stl Sh Tox Pr E STEC PCR Stool E coli O157 PCR Stl Enterotoxigenic E PCR Stool EPEC (PCR) Stool EAEC (PCR) Stl E. histolytica PCR Stool Giardia Lamblia PCR Stl P. shigelloides PCR Stool Salmonella PCR Stool Sapovirus (PCR) Stl Shigella/EIEC PCR St Y.enterocolitica PCR Stool Vibrio (PCR) Stl Vibrio cholerae PCR Stl Norovirus GI/GII PCR Random Vancomycin Valproic Acid Carbamazepine Lamotrigine Clozapine Norclozapine Respiratory Panel Ashley Adenovirus (Rapid PCR) B.pert (TEM-PCR) B.parapertussis DNA PCR C. pneumoniae DNA (PCR) Coronavirus OC43 (PCR) Coronavirus HKU1 (PCR) Coronavirus 229E (PCR) Coronavirus NL63 (PCR) Hepatitis A IgM Ab Hep Bs Antigen Hepatitis C Ab (EIA) Human Metapneumovir PCR Influenza A (RT-PCR) Influenza Type A (PCR) Influenza B (RT-PCR) Influenza Type B (PCR) M. pneumoniae (PCR) Parainfluenza 1 (PCR) Parainfluenza 2 (PCR) Parainfluenza 3 (PCR) Parainfluenza 4 (PCR) RSV (PCR) RSV RNA Qual (PCR) Entero/Rhino (PCR) SARS-CoV-2 RNA (RT-PCR) Blood Type Antibody Screen 05/29/23 05/29/23 05/29/23 04:19 04:31 04:39 WBC 6.4 RBC 3.46 L Hgb 10.8 L Hct 32.0 L MCV 92.5 MCH 31.2 MCHC 33.8 RDW 13.6 Plt Count 87 L D MPV 10.4 Immature Gran % (Auto) Neut % (Auto) Lymph % (Auto) [place] % (Auto) Eos % (Auto) Baso % (Auto) Lymph # (Auto) [place] # (Auto) Eos # (Auto) Baso # (Auto) Abs Immat Gran (auto) Absolute Neuts (auto) Absolute Nucleated RBC 0.000 Nucleated RBC % (auto) 0.0 Neutrophils % (Manual) 45 Band Neutrophils % 41 H Lymphocytes % (Manual) 11 L Atypical Lymphs % (Man) Monocytes % (Manual) 2 Eosinophils % (Manual) Metamyelocytes % 1 Myelocytes % Promyelocytes % Abs Neuts (Manual) 5.5 Lymphocytes # (Manual) 0.7 L Atyp Lymphs # (Manual) Monocytes # (Manual) 0.1 Eosinophils # (Manual) Metamyelocytes # 0.1 Myelocytes # Promyelocytes # Nucleated RBCs Smudge Cells Toxic Granulation Toxic Vacuolation PRESENT Platelet Estimate DECREASED Large Platelets PRESENT Plt Morphology Comment NORMAL RBC Morphology NORMAL Polychromasia Hypochromasia Basophilic Stippling Spherocytes Tear Drop Cells Ovalocytes [place] Bodies Jyoti Cells Acanthocytes (Spur) Schistocytes PT INR aPTT Heparin Protocol D-Dimer High Sensitivty O2 Saturation 90.0 ABG pH at Pt Temp 7.41 ABG pCO2 at Pt Temp 36 ABG pO2 at Pt Temp 58 L ABG HCO3 23 ABG Base Excess (Actual) -0.7 VBG pH VBG pCO2 VBG pO2 VBG HCO3 VBG O2 Saturation VBG Base Excess Sodium 137 Potassium 4.1 D Chloride 107 Carbon Dioxide 23 Anion Gap 11 L BUN 12 Creatinine 0.68 Estim Creat Clear Calc 106.3 Estimated GFR > 60 POC Glucose 123 H Random Glucose 125 H Lactic Acid 0.9 Lactic Acid F/U @ 2Hr Calcium 7.3 L Phosphorus Magnesium Total Bilirubin 0.4 Direct Bilirubin AST 166 H ALT 101 H Alkaline Phosphatase 58 Ammonia Troponin I High Sens B-Natriuretic Peptide 241 H Total Protein 5.5 L Albumin 3.2 L Lipase 25-OH Vitamin D Total Procalcitonin 0.90 TSH Urine Color Urine Appearance Urine pH Ur Specific [place] Urine Protein Urine Glucose (UA) Urine Ketones Urine Blood Urine Nitrite Ur Leukocyte Esterase Urine RBC Urine WBC Ur Squamous Epith Cells Urine Bacteria Hyaline Casts Nasal Screen MRSA (PCR) Nasal S. aureus Screen Nasal MRSA/S.aureus Interp Stool Occult Blood Stl C. cayetanensis PCR Stool Rotavirus A PCR Stl Adenov F 40/41 PCR Stool Astrovirus (PCR) Stool Campylobacter PCR Stool Cryptosporidium PCR Stl Sh Tox Pr E STEC PCR Stool E coli O157 PCR Stl Enterotoxigenic E PCR Stool EPEC (PCR) Stool EAEC (PCR) Stl E. histolytica PCR Stool Giardia Lamblia PCR Stl P. shigelloides PCR Stool Salmonella PCR Stool Sapovirus (PCR) Stl Shigella/EIEC PCR St Y.enterocolitica PCR Stool Vibrio (PCR) Stl Vibrio cholerae PCR Stl Norovirus GI/GII PCR Random Vancomycin Valproic Acid Carbamazepine Lamotrigine Clozapine Norclozapine Respiratory Panel Ashley Adenovirus (Rapid PCR) B.pert (TEM-PCR) B.parapertussis DNA PCR C. pneumoniae DNA (PCR) Coronavirus OC43 (PCR) Coronavirus HKU1 (PCR) Coronavirus 229E (PCR) Coronavirus NL63 (PCR) Hepatitis A IgM Ab Hep Bs Antigen Hepatitis C Ab (EIA) Human Metapneumovir PCR Influenza A (RT-PCR) Influenza Type A (PCR) Influenza B (RT-PCR) Influenza Type B (PCR) M. pneumoniae (PCR) Parainfluenza 1 (PCR) Parainfluenza 2 (PCR) Parainfluenza 3 (PCR) Parainfluenza 4 (PCR) RSV (PCR) RSV RNA Qual (PCR) Entero/Rhino (PCR) SARS-CoV-2 RNA (RT-PCR) Blood Type Antibody Screen 05/29/23 05/29/23 05/29/23 06:33 07:37 09:00 WBC 7.4 RBC 3.49 L Hgb 10.8 L Hct 32.7 L MCV 93.7 MCH 30.9 MCHC 33.0 RDW 13.6 Plt Count 94 L MPV 11.4 Immature Gran % (Auto) 0.9 H Neut % (Auto) 79.0 H Lymph % (Auto) 13.2 L [place] % (Auto) 5.1 Eos % (Auto) 1.5 Baso % (Auto) 0.3 Lymph # (Auto) 1.0 L [place] # (Auto) 0.4 Eos # (Auto) 0.1 Baso # (Auto) 0.0 Abs Immat Gran (auto) 0.07 H Absolute Neuts (auto) 5.8 Absolute Nucleated RBC 0.000 Nucleated RBC % (auto) 0.0 Neutrophils % (Manual) Band Neutrophils % Lymphocytes % (Manual) Atypical Lymphs % (Man) Monocytes % (Manual) Eosinophils % (Manual) Metamyelocytes % Myelocytes % Promyelocytes % Abs Neuts (Manual) Lymphocytes # (Manual) Atyp Lymphs # (Manual) Monocytes # (Manual) Eosinophils # (Manual) Metamyelocytes # Myelocytes # Promyelocytes # Nucleated RBCs Smudge Cells Toxic Granulation Toxic Vacuolation Platelet Estimate Large Platelets Plt Morphology Comment RBC Morphology Polychromasia Hypochromasia Basophilic Stippling Spherocytes Tear Drop Cells Ovalocytes [place] Bodies Jyoti Cells Acanthocytes (Spur) Schistocytes PT INR aPTT Heparin Protocol D-Dimer High Sensitivty O2 Saturation ABG pH at Pt Temp ABG pCO2 at Pt Temp ABG pO2 at Pt Temp ABG HCO3 ABG Base Excess (Actual) VBG pH VBG pCO2 VBG pO2 VBG HCO3 VBG O2 Saturation VBG Base Excess Sodium 138 Potassium 3.4 Chloride 105 Carbon Dioxide 24 Anion Gap 12 BUN 12 Creatinine 0.70 Estim Creat Clear Calc 103.4 Estimated GFR > 60 POC Glucose 156 H Random Glucose 166 H Lactic Acid Lactic Acid F/U @ 2Hr Calcium 7.3 L Phosphorus Magnesium Total Bilirubin 0.4 Direct Bilirubin 0.3 AST 168 H ALT 103 H Alkaline Phosphatase 61 Ammonia Troponin I High Sens B-Natriuretic Peptide 184 H Total Protein 5.6 L Albumin 3.2 L Lipase 25-OH Vitamin D Total Procalcitonin TSH Urine Color Urine Appearance Urine pH Ur Specific [place] Urine Protein Urine Glucose (UA) Urine Ketones Urine Blood Urine Nitrite Ur Leukocyte Esterase Urine RBC Urine WBC Ur Squamous Epith Cells Urine Bacteria Hyaline Casts Nasal Screen MRSA (PCR) Nasal S. aureus Screen Nasal MRSA/S.aureus Interp Stool Occult Blood Stl C. cayetanensis PCR Stool Rotavirus A PCR Stl Adenov F 40/41 PCR Stool Astrovirus (PCR) Stool Campylobacter PCR Stool Cryptosporidium PCR Stl Sh Tox Pr E STEC PCR Stool E coli O157 PCR Stl Enterotoxigenic E PCR Stool EPEC (PCR) Stool EAEC (PCR) Stl E. histolytica PCR Stool Giardia Lamblia PCR Stl P. shigelloides PCR Stool Salmonella PCR Stool Sapovirus (PCR) Stl Shigella/EIEC PCR St Y.enterocolitica PCR Stool Vibrio (PCR) Stl Vibrio cholerae PCR Stl Norovirus GI/GII PCR Random Vancomycin Valproic Acid Carbamazepine Lamotrigine Clozapine Norclozapine Respiratory Panel Ashley See Note Adenovirus (Rapid PCR) Not Detected B.pert (TEM-PCR) Not Detected B.parapertussis DNA PCR Not Detected C. pneumoniae DNA (PCR) Not Detected Coronavirus OC43 (PCR) Not Detected Coronavirus HKU1 (PCR) Not Detected Coronavirus 229E (PCR) Not Detected Coronavirus NL63 (PCR) Not Detected Hepatitis A IgM Ab Hep Bs Antigen Hepatitis C Ab (EIA) Human Metapneumovir PCR Not Detected Influenza A (RT-PCR) Not Detected Influenza Type A (PCR) Influenza B (RT-PCR) Not Detected Influenza Type B (PCR) M. pneumoniae (PCR) Not Detected Parainfluenza 1 (PCR) Not Detected Parainfluenza 2 (PCR) Not Detected Parainfluenza 3 (PCR) Not Detected Parainfluenza 4 (PCR) Not Detected RSV (PCR) Not Detected RSV RNA Qual (PCR) Entero/Rhino (PCR) Not Detected SARS-CoV-2 RNA (RT-PCR) Not Detected Blood Type Antibody Screen 05/29/23 05/29/23 05/29/23 11:06 11:40 11:49 WBC RBC Hgb Hct MCV MCH MCHC RDW Plt Count MPV Immature Gran % (Auto) Neut % (Auto) Lymph % (Auto) [place] % (Auto) Eos % (Auto) Baso % (Auto) Lymph # (Auto) [place] # (Auto) Eos # (Auto) Baso # (Auto) Abs Immat Gran (auto) Absolute Neuts (auto) Absolute Nucleated RBC Nucleated RBC % (auto) Neutrophils % (Manual) Band Neutrophils % Lymphocytes % (Manual) Atypical Lymphs % (Man) Monocytes % (Manual) Eosinophils % (Manual) Metamyelocytes % Myelocytes % Promyelocytes % Abs Neuts (Manual) Lymphocytes # (Manual) Atyp Lymphs # (Manual) Monocytes # (Manual) Eosinophils # (Manual) Metamyelocytes # Myelocytes # Promyelocytes # Nucleated RBCs Smudge Cells Toxic Granulation Toxic Vacuolation Platelet Estimate Large Platelets Plt Morphology Comment RBC Morphology Polychromasia Hypochromasia Basophilic Stippling Spherocytes Tear Drop Cells Ovalocytes [place] Bodies Jyoti Cells Acanthocytes (Spur) Schistocytes PT INR aPTT Heparin Protocol D-Dimer High Sensitivty 2947 O2 Saturation 90.0 ABG pH at Pt Temp 7.45 ABG pCO2 at Pt Temp 40 ABG pO2 at Pt Temp 58 L ABG HCO3 28 H ABG Base Excess (Actual) 4.3 VBG pH VBG pCO2 VBG pO2 VBG HCO3 VBG O2 Saturation VBG Base Excess Sodium Potassium Chloride Carbon Dioxide Anion Gap BUN Creatinine Estim Creat Clear Calc Estimated GFR POC Glucose 165 H Random Glucose Lactic Acid Lactic Acid F/U @ 2Hr Calcium Phosphorus Magnesium Total Bilirubin Direct Bilirubin AST ALT Alkaline Phosphatase Ammonia Troponin I High Sens B-Natriuretic Peptide Total Protein Albumin Lipase 25-OH Vitamin D Total Procalcitonin TSH Urine Color Urine Appearance Urine pH Ur Specific [place] Urine Protein Urine Glucose (UA) Urine Ketones Urine Blood Urine Nitrite Ur Leukocyte Esterase Urine RBC Urine WBC Ur Squamous Epith Cells Urine Bacteria Hyaline Casts Nasal Screen MRSA (PCR) Nasal S. aureus Screen Nasal MRSA/S.aureus Interp Stool Occult Blood Stl C. cayetanensis PCR Stool Rotavirus A PCR Stl Adenov F 40/41 PCR Stool Astrovirus (PCR) Stool Campylobacter PCR Stool Cryptosporidium PCR Stl Sh Tox Pr E STEC PCR Stool E coli O157 PCR Stl Enterotoxigenic E PCR Stool EPEC (PCR) Stool EAEC (PCR) Stl E. histolytica PCR Stool Giardia Lamblia PCR Stl P. shigelloides PCR Stool Salmonella PCR Stool Sapovirus (PCR) Stl Shigella/EIEC PCR St Y.enterocolitica PCR Stool Vibrio (PCR) Stl Vibrio cholerae PCR Stl Norovirus GI/GII PCR Random Vancomycin Valproic Acid Carbamazepine Lamotrigine Clozapine Norclozapine Respiratory Panel Ashley Adenovirus (Rapid PCR) B.pert (TEM-PCR) B.parapertussis DNA PCR C. pneumoniae DNA (PCR) Coronavirus OC43 (PCR) Coronavirus HKU1 (PCR) Coronavirus 229E (PCR) Coronavirus NL63 (PCR) Hepatitis A IgM Ab Hep Bs Antigen Hepatitis C Ab (EIA) Human Metapneumovir PCR Influenza A (RT-PCR) Influenza Type A (PCR) Influenza B (RT-PCR) Influenza Type B (PCR) M. pneumoniae (PCR) Parainfluenza 1 (PCR) Parainfluenza 2 (PCR) Parainfluenza 3 (PCR) Parainfluenza 4 (PCR) RSV (PCR) RSV RNA Qual (PCR) Entero/Rhino (PCR) SARS-CoV-2 RNA (RT-PCR) Blood Type Antibody Screen 05/29/23 05/29/23 05/29/23 13:55 16:17 20:57 WBC RBC Hgb Hct MCV MCH MCHC RDW Plt Count MPV Immature Gran % (Auto) Neut % (Auto) Lymph % (Auto) [place] % (Auto) Eos % (Auto) Baso % (Auto) Lymph # (Auto) [place] # (Auto) Eos # (Auto) Baso # (Auto) Abs Immat Gran (auto) Absolute Neuts (auto) Absolute Nucleated RBC Nucleated RBC % (auto) Neutrophils % (Manual) Band Neutrophils % Lymphocytes % (Manual) Atypical Lymphs % (Man) Monocytes % (Manual) Eosinophils % (Manual) Metamyelocytes % Myelocytes % Promyelocytes % Abs Neuts (Manual) Lymphocytes # (Manual) Atyp Lymphs # (Manual) Monocytes # (Manual) Eosinophils # (Manual) Metamyelocytes # Myelocytes # Promyelocytes # Nucleated RBCs Smudge Cells Toxic Granulation Toxic Vacuolation Platelet Estimate Large Platelets Plt Morphology Comment RBC Morphology Polychromasia Hypochromasia Basophilic Stippling Spherocytes Tear Drop Cells Ovalocytes [place] Bodies [place] Cells Acanthocytes (Spur) Schistocytes PT INR aPTT Heparin Protocol D-Dimer High Sensitivty O2 Saturation ABG pH at Pt Temp ABG pCO2 at Pt Temp ABG pO2 at Pt Temp ABG HCO3 ABG Base Excess (Actual) VBG pH VBG pCO2 VBG pO2 VBG HCO3 VBG O2 Saturation VBG Base Excess Sodium Potassium Chloride Carbon Dioxide Anion Gap BUN Creatinine Estim Creat Clear Calc Estimated GFR POC Glucose 158 H 150 H Random Glucose Lactic Acid Lactic Acid F/U @ 2Hr Calcium Phosphorus Magnesium Total Bilirubin Direct Bilirubin AST ALT Alkaline Phosphatase Ammonia Troponin I High Sens 134.1 H* D B-Natriuretic Peptide Total Protein Albumin Lipase 25-OH Vitamin D Total Procalcitonin TSH Urine Color Urine Appearance Urine pH Ur Specific [place] Urine Protein Urine Glucose (UA) Urine Ketones Urine Blood Urine Nitrite Ur Leukocyte Esterase Urine RBC Urine WBC Ur Squamous Epith Cells Urine Bacteria Hyaline Casts Nasal Screen MRSA (PCR) Nasal S. aureus Screen Nasal MRSA/S.aureus Interp Stool Occult Blood Stl C. cayetanensis PCR Stool Rotavirus A PCR Stl Adenov F 40 PCR Stool Astrovirus (PCR) Stool Campylobacter PCR Stool Cryptosporidium PCR Stl Sh Tox Pr E STEC PCR Stool E coli O157 PCR Stl Enterotoxigenic E PCR Stool EPEC (PCR) Stool EAEC (PCR) Stl E. histolytica PCR Stool Giardia Lamblia PCR Stl P. shigelloides PCR Stool Salmonella PCR Stool Sapovirus (PCR) Stl Shigella/EIEC PCR St Y.enterocolitica PCR Stool Vibrio (PCR) Stl Vibrio cholerae PCR Stl Norovirus GI/GII PCR Random Vancomycin Valproic Acid Carbamazepine Lamotrigine Clozapine Norclozapine Respiratory Panel Ashley Adenovirus (Rapid PCR) B.pert (TEM-PCR) B.parapertussis DNA PCR C. pneumoniae DNA (PCR) Coronavirus OC43 (PCR) Coronavirus HKU1 (PCR) Coronavirus 229E (PCR) Coronavirus NL63 (PCR) Hepatitis A IgM Ab Hep Bs Antigen Hepatitis C Ab (EIA) Human Metapneumovir PCR Influenza A (RT-PCR) Influenza Type A (PCR) Influenza B (RT-PCR) Influenza Type B (PCR) M. pneumoniae (PCR) Parainfluenza 1 (PCR) Parainfluenza 2 (PCR) Parainfluenza 3 (PCR) Parainfluenza 4 (PCR) RSV (PCR) RSV RNA Qual (PCR) Entero/Rhino (PCR) SARS-CoV-2 RNA (RT-PCR) Blood Type Antibody Screen 05/30/23 05/30/23 05/30/23 04:36 06:11 06:43 WBC 11.7 H RBC 4.05 L Hgb 12.6 Hct 36.9 L MCV 91.1 MCH 31.1 MCHC 34.1 RDW 13.3 Plt Count 113 L MPV 11.3 Immature Gran % (Auto) 1.2 H Neut % (Auto) 84.7 H Lymph % (Auto) 8.1 L [place] % (Auto) 5.1 Eos % (Auto) 0.3 Baso % (Auto) 0.6 Lymph # (Auto) 1.0 L [place] # (Auto) 0.6 Eos # (Auto) 0.0 Baso # (Auto) 0.1 Abs Immat Gran (auto) 0.14 H Absolute Neuts (auto) 9.9 H Absolute Nucleated RBC 0.000 Nucleated RBC % (auto) 0.0 Neutrophils % (Manual) Band Neutrophils % Lymphocytes % (Manual) Atypical Lymphs % (Man) Monocytes % (Manual) Eosinophils % (Manual) Metamyelocytes % Myelocytes % Promyelocytes % Abs Neuts (Manual) Lymphocytes # (Manual) Atyp Lymphs # (Manual) Monocytes # (Manual) Eosinophils # (Manual) Metamyelocytes # Myelocytes # Promyelocytes # Nucleated RBCs Smudge Cells Toxic Granulation Toxic Vacuolation Platelet Estimate Large Platelets Plt Morphology Comment RBC Morphology Polychromasia Hypochromasia Basophilic Stippling Spherocytes Tear Drop Cells Ovalocytes [place] Bodies Jyoti Cells Acanthocytes (Spur) Schistocytes PT INR aPTT Heparin Protocol D-Dimer High Sensitivty O2 Saturation 90.0 ABG pH at Pt Temp 7.50 H ABG pCO2 at Pt Temp 46 H ABG pO2 at Pt Temp 62 L ABG HCO3 36 H ABG Base Excess (Actual) 11.7 VBG pH VBG pCO2 VBG pO2 VBG HCO3 VBG O2 Saturation VBG Base Excess Sodium 141 Potassium 2.4 L* D Chloride 94 L Carbon Dioxide 35 H Anion Gap 14 BUN 16 Creatinine 0.80 Estim Creat Clear Calc 90.4 Estimated GFR > 60 POC Glucose 155 H Random Glucose 146 H Lactic Acid 1.7 Lactic Acid F/U @ 2Hr Calcium 7.8 L D Phosphorus Magnesium Total Bilirubin 0.6 Direct Bilirubin AST 145 H ALT 109 H Alkaline Phosphatase 85 Ammonia 39 Troponin I High Sens 468.6 H* D B-Natriuretic Peptide Total Protein Albumin Lipase 25-OH Vitamin D Total Procalcitonin TSH Urine Color Urine Appearance Urine pH Ur Specific [place] Urine Protein Urine Glucose (UA) Urine Ketones Urine Blood Urine Nitrite Ur Leukocyte Esterase Urine RBC Urine WBC Ur Squamous Epith Cells Urine Bacteria Hyaline Casts Nasal Screen MRSA (PCR) Nasal S. aureus Screen Nasal MRSA/S.aureus Interp Stool Occult Blood Stl C. cayetanensis PCR Stool Rotavirus A PCR Stl Adenov F 40/41 PCR Stool Astrovirus (PCR) Stool Campylobacter PCR Stool Cryptosporidium PCR Stl Sh Tox Pr E STEC PCR Stool E coli O157 PCR Stl Enterotoxigenic E PCR Stool EPEC (PCR) Stool EAEC (PCR) Stl E. histolytica PCR Stool Giardia Lamblia PCR Stl P. shigelloides PCR Stool Salmonella PCR Stool Sapovirus (PCR) Stl Shigella/EIEC PCR St Y.enterocolitica PCR Stool Vibrio (PCR) Stl Vibrio cholerae PCR Stl Norovirus GI/GII PCR Random Vancomycin Valproic Acid Carbamazepine Lamotrigine Clozapine Norclozapine Respiratory Panel Ashley Adenovirus (Rapid PCR) B.pert (TEM-PCR) B.parapertussis DNA PCR C. pneumoniae DNA (PCR) Coronavirus OC43 (PCR) Coronavirus HKU1 (PCR) Coronavirus 229E (PCR) Coronavirus NL63 (PCR) Hepatitis A IgM Ab Hep Bs Antigen Hepatitis C Ab (EIA) Human Metapneumovir PCR Influenza A (RT-PCR) Influenza Type A (PCR) Influenza B (RT-PCR) Influenza Type B (PCR) M. pneumoniae (PCR) Parainfluenza 1 (PCR) Parainfluenza 2 (PCR) Parainfluenza 3 (PCR) Parainfluenza 4 (PCR) RSV (PCR) RSV RNA Qual (PCR) Entero/Rhino (PCR) SARS-CoV-2 RNA (RT-PCR) Blood Type Antibody Screen 05/30/23 05/30/23 05/30/23 06:43 11:08 12:23 WBC RBC Hgb Hct MCV MCH MCHC RDW Plt Count MPV Immature Gran % (Auto) Neut % (Auto) Lymph % (Auto) [place] % (Auto) Eos % (Auto) Baso % (Auto) Lymph # (Auto) [place] # (Auto) Eos # (Auto) Baso # (Auto) Abs Immat Gran (auto) Absolute Neuts (auto) Absolute Nucleated RBC Nucleated RBC % (auto) Neutrophils % (Manual) Band Neutrophils % Lymphocytes % (Manual) Atypical Lymphs % (Man) Monocytes % (Manual) Eosinophils % (Manual) Metamyelocytes % Myelocytes % Promyelocytes % Abs Neuts (Manual) Lymphocytes # (Manual) Atyp Lymphs # (Manual) Monocytes # (Manual) Eosinophils # (Manual) Metamyelocytes # Myelocytes # Promyelocytes # Nucleated RBCs Smudge Cells Toxic Granulation Toxic Vacuolation Platelet Estimate Large Platelets Plt Morphology Comment RBC Morphology Polychromasia Hypochromasia Basophilic Stippling Spherocytes Tear Drop Cells Ovalocytes [place] Bodies [place] Cells Acanthocytes (Spur) Schistocytes PT INR aPTT Heparin Protocol D-Dimer High Sensitivty O2 Saturation ABG pH at Pt Temp ABG pCO2 at Pt Temp ABG pO2 at Pt Temp ABG HCO3 ABG Base Excess (Actual) VBG pH VBG pCO2 VBG pO2 VBG HCO3 VBG O2 Saturation VBG Base Excess Sodium Potassium Chloride Carbon Dioxide Anion Gap BUN Creatinine Estim Creat Clear Calc Estimated GFR POC Glucose 158 H 175 H Random Glucose Lactic Acid Lactic Acid F/U @ 2Hr Calcium Phosphorus Magnesium Total Bilirubin Direct Bilirubin AST ALT Alkaline Phosphatase Ammonia Troponin I High Sens 496.3 H* B-Natriuretic Peptide 160 H Total Protein 6.4 L Albumin 3.5 Lipase 25-OH Vitamin D Total Procalcitonin TSH Urine Color Urine Appearance Urine pH Ur Specific [place] Urine Protein Urine Glucose (UA) Urine Ketones Urine Blood Urine Nitrite Ur Leukocyte Esterase Urine RBC Urine WBC Ur Squamous Epith Cells Urine Bacteria Hyaline Casts Nasal Screen MRSA (PCR) Nasal S. aureus Screen Nasal MRSA/S.aureus Interp Stool Occult Blood Stl C. cayetanensis PCR Stool Rotavirus A PCR Stl Adenov F 40/41 PCR Stool Astrovirus (PCR) Stool Campylobacter PCR Stool Cryptosporidium PCR Stl Sh Tox Pr E STEC PCR Stool E coli O157 PCR Stl Enterotoxigenic E PCR Stool EPEC (PCR) Stool EAEC (PCR) Stl E. histolytica PCR Stool Giardia Lamblia PCR Stl P. shigelloides PCR Stool Salmonella PCR Stool Sapovirus (PCR) Stl Shigella/EIEC PCR St Y.enterocolitica PCR Stool Vibrio (PCR) Stl Vibrio cholerae PCR Stl Norovirus GI/GII PCR Random Vancomycin Valproic Acid 45.5 L Carbamazepine 9.6 Lamotrigine Clozapine 869 Norclozapine 225 Respiratory Panel Ashley Adenovirus (Rapid PCR) B.pert (TEM-PCR) B.parapertussis DNA PCR C. pneumoniae DNA (PCR) Coronavirus OC43 (PCR) Coronavirus HKU1 (PCR) Coronavirus 229E (PCR) Coronavirus NL63 (PCR) Hepatitis A IgM Ab Hep Bs Antigen Hepatitis C Ab (EIA) Human Metapneumovir PCR Influenza A (RT-PCR) Influenza Type A (PCR) Influenza B (RT-PCR) Influenza Type B (PCR) M. pneumoniae (PCR) Parainfluenza 1 (PCR) Parainfluenza 2 (PCR) Parainfluenza 3 (PCR) Parainfluenza 4 (PCR) RSV (PCR) RSV RNA Qual (PCR) Entero/Rhino (PCR) SARS-CoV-2 RNA (RT-PCR) Blood Type Antibody Screen 05/30/23 05/30/23 05/30/23 13:47 17:52 23:44 WBC RBC Hgb Hct MCV MCH MCHC RDW Plt Count MPV Immature Gran % (Auto) Neut % (Auto) Lymph % (Auto) [place] % (Auto) Eos % (Auto) Baso % (Auto) Lymph # (Auto) [place] # (Auto) Eos # (Auto) Baso # (Auto) Abs Immat Gran (auto) Absolute Neuts (auto) Absolute Nucleated RBC Nucleated RBC % (auto) Neutrophils % (Manual) Band Neutrophils % Lymphocytes % (Manual) Atypical Lymphs % (Man) Monocytes % (Manual) Eosinophils % (Manual) Metamyelocytes % Myelocytes % Promyelocytes % Abs Neuts (Manual) Lymphocytes # (Manual) Atyp Lymphs # (Manual) Monocytes # (Manual) Eosinophils # (Manual) Metamyelocytes # Myelocytes # Promyelocytes # Nucleated RBCs Smudge Cells Toxic Granulation Toxic Vacuolation Platelet Estimate Large Platelets Plt Morphology Comment RBC Morphology Polychromasia Hypochromasia Basophilic Stippling Spherocytes Tear Drop Cells Ovalocytes [place] Bodies Jyoti Cells Acanthocytes (Spur) Schistocytes PT INR aPTT Heparin Protocol D-Dimer High Sensitivty O2 Saturation ABG pH at Pt Temp ABG pCO2 at Pt Temp ABG pO2 at Pt Temp ABG HCO3 ABG Base Excess (Actual) VBG pH VBG pCO2 VBG pO2 VBG HCO3 VBG O2 Saturation VBG Base Excess Sodium 139 Potassium 4.0 D Chloride 97 Carbon Dioxide 31 H Anion Gap 15 BUN 22 H Creatinine 0.95 Estim Creat Clear Calc 76.2 Estimated GFR 59 POC Glucose 215 H 257 H Random Glucose 182 H Lactic Acid Lactic Acid F/U @ 2Hr Calcium 7.8 L Phosphorus Magnesium Total Bilirubin Direct Bilirubin AST ALT Alkaline Phosphatase Ammonia Troponin I High Sens B-Natriuretic Peptide Total Protein Albumin Lipase 25-OH Vitamin D Total Procalcitonin TSH Urine Color Urine Appearance Urine pH Ur Specific [place] Urine Protein Urine Glucose (UA) Urine Ketones Urine Blood Urine Nitrite Ur Leukocyte Esterase Urine RBC Urine WBC Ur Squamous Epith Cells Urine Bacteria Hyaline Casts Nasal Screen MRSA (PCR) Nasal S. aureus Screen Nasal MRSA/S.aureus Interp Stool Occult Blood Stl C. cayetanensis PCR Stool Rotavirus A PCR Stl Adenov F 40/41 PCR Stool Astrovirus (PCR) Stool Campylobacter PCR Stool Cryptosporidium PCR Stl Sh Tox Pr E STEC PCR Stool E coli O157 PCR Stl Enterotoxigenic E PCR Stool EPEC (PCR) Stool EAEC (PCR) Stl E. histolytica PCR Stool Giardia Lamblia PCR Stl P. shigelloides PCR Stool Salmonella PCR Stool Sapovirus (PCR) Stl Shigella/EIEC PCR St Y.enterocolitica PCR Stool Vibrio (PCR) Stl Vibrio cholerae PCR Stl Norovirus GI/GII PCR Random Vancomycin Valproic Acid Carbamazepine Lamotrigine Clozapine Norclozapine Respiratory Panel Ashley Adenovirus (Rapid PCR) B.pert (TEM-PCR) B.parapertussis DNA PCR C. pneumoniae DNA (PCR) Coronavirus OC43 (PCR) Coronavirus HKU1 (PCR) Coronavirus 229E (PCR) Coronavirus NL63 (PCR) Hepatitis A IgM Ab Hep Bs Antigen Hepatitis C Ab (EIA) Human Metapneumovir PCR Influenza A (RT-PCR) Influenza Type A (PCR) Influenza B (RT-PCR) Influenza Type B (PCR) M. pneumoniae (PCR) Parainfluenza 1 (PCR) Parainfluenza 2 (PCR) Parainfluenza 3 (PCR) Parainfluenza 4 (PCR) RSV (PCR) RSV RNA Qual (PCR) Entero/Rhino (PCR) SARS-CoV-2 RNA (RT-PCR) Blood Type Antibody Screen 05/31/23 05/31/23 05/31/23 05:02 11:11 14:04 WBC 14.9 H RBC 3.78 L Hgb 11.8 L Hct 34.7 L MCV 91.8 MCH 31.2 MCHC 34.0 RDW 13.5 Plt Count 116 L MPV 12.5 H Immature Gran % (Auto) 1.4 H Neut % (Auto) 84.2 H Lymph % (Auto) 8.7 L [place] % (Auto) 4.8 Eos % (Auto) 0.2 Baso % (Auto) 0.7 Lymph # (Auto) 1.3 [place] # (Auto) 0.7 Eos # (Auto) 0.0 Baso # (Auto) 0.1 Abs Immat Gran (auto) 0.21 H Absolute Neuts (auto) 12.6 H Absolute Nucleated RBC 0.030 H Nucleated RBC % (auto) 0.2 Neutrophils % (Manual) Band Neutrophils % Lymphocytes % (Manual) Atypical Lymphs % (Man) Monocytes % (Manual) Eosinophils % (Manual) Metamyelocytes % Myelocytes % Promyelocytes % Abs Neuts (Manual) Lymphocytes # (Manual) Atyp Lymphs # (Manual) Monocytes # (Manual) Eosinophils # (Manual) Metamyelocytes # Myelocytes # Promyelocytes # Nucleated RBCs Smudge Cells Toxic Granulation Toxic Vacuolation Platelet Estimate Large Platelets Plt Morphology Comment RBC Morphology Polychromasia Hypochromasia Basophilic Stippling Spherocytes Tear Drop Cells Ovalocytes [place] Bodies Jyoti Cells Acanthocytes (Spur) Schistocytes PT INR aPTT Heparin Protocol D-Dimer High Sensitivty O2 Saturation ABG pH at Pt Temp ABG pCO2 at Pt Temp ABG pO2 at Pt Temp ABG HCO3 ABG Base Excess (Actual) VBG pH 7.50 H VBG pCO2 42 VBG pO2 70 VBG HCO3 34 H VBG O2 Saturation 94.0 VBG Base Excess 10.0 Sodium 137 135 Potassium 2.9 L* D 3.4 Chloride 95 L 95 L Carbon Dioxide 30 H 29 Anion Gap 15 14 BUN 25 H 21 H Creatinine 0.94 0.86 Estim Creat Clear Calc 76.9 84.1 Estimated GFR 60 > 60 POC Glucose 193 H Random Glucose 247 H 228 H Lactic Acid Lactic Acid F/U @ 2Hr Calcium 8.3 L D 8.3 L Phosphorus 1.7 L Magnesium 2.5 Total Bilirubin 0.8 Direct Bilirubin AST 189 H ALT 137 H Alkaline Phosphatase 101 Ammonia Troponin I High Sens B-Natriuretic Peptide Total Protein 6.2 L Albumin 3.2 L Lipase 25-OH Vitamin D Total Procalcitonin TSH Urine Color Urine Appearance Urine pH Ur Specific [place] Urine Protein Urine Glucose (UA) Urine Ketones Urine Blood Urine Nitrite Ur Leukocyte Esterase Urine RBC Urine WBC Ur Squamous Epith Cells Urine Bacteria Hyaline Casts Nasal Screen MRSA (PCR) Nasal S. aureus Screen Nasal MRSA/S.aureus Interp Stool Occult Blood Stl C. cayetanensis PCR Stool Rotavirus A PCR Stl Adenov F 40/41 PCR Stool Astrovirus (PCR) Stool Campylobacter PCR Stool Cryptosporidium PCR Stl Sh Tox Pr E STEC PCR Stool E coli O157 PCR Stl Enterotoxigenic E PCR Stool EPEC (PCR) Stool EAEC (PCR) Stl E. histolytica PCR Stool Giardia Lamblia PCR Stl P. shigelloides PCR Stool Salmonella PCR Stool Sapovirus (PCR) Stl Shigella/EIEC PCR St Y.enterocolitica PCR Stool Vibrio (PCR) Stl Vibrio cholerae PCR Stl Norovirus GI/GII PCR Random Vancomycin Valproic Acid Carbamazepine Lamotrigine Clozapine Norclozapine Respiratory Panel Ashley Adenovirus (Rapid PCR) B.pert (TEM-PCR) B.parapertussis DNA PCR C. pneumoniae DNA (PCR) Coronavirus OC43 (PCR) Coronavirus HKU1 (PCR) Coronavirus 229E (PCR) Coronavirus NL63 (PCR) Hepatitis A IgM Ab Hep Bs Antigen Hepatitis C Ab (EIA) Human Metapneumovir PCR Influenza A (RT-PCR) Influenza Type A (PCR) Influenza B (RT-PCR) Influenza Type B (PCR) M. pneumoniae (PCR) Parainfluenza 1 (PCR) Parainfluenza 2 (PCR) Parainfluenza 3 (PCR) Parainfluenza 4 (PCR) RSV (PCR) RSV RNA Qual (PCR) Entero/Rhino (PCR) SARS-CoV-2 RNA (RT-PCR) Blood Type Antibody Screen 05/31/23 05/31/23 06/01/23 17:26 23:46 05:08 WBC 13.6 H RBC 3.67 L Hgb 11.4 L Hct 33.7 L MCV 91.8 MCH 31.1 MCHC 33.8 RDW 13.6 Plt Count 142 L MPV 12.1 Immature Gran % (Auto) Cancelled Neut % (Auto) Cancelled Lymph % (Auto) Cancelled [place] % (Auto) Cancelled Eos % (Auto) Cancelled Baso % (Auto) Cancelled Lymph # (Auto) Cancelled [place] # (Auto) Cancelled Eos # (Auto) Cancelled Baso # (Auto) Cancelled Abs Immat Gran (auto) Cancelled Absolute Neuts (auto) Cancelled Absolute Nucleated RBC 0.090 H Nucleated RBC % (auto) 0.7 H Neutrophils % (Manual) 62 Band Neutrophils % 12 H Lymphocytes % (Manual) 12 L Atypical Lymphs % (Man) Monocytes % (Manual) 7 Eosinophils % (Manual) 1 Metamyelocytes % 4 Myelocytes % 1 Promyelocytes % 1 Abs Neuts (Manual) 10.1 H Lymphocytes # (Manual) 1.6 Atyp Lymphs # (Manual) Monocytes # (Manual) 1.0 Eosinophils # (Manual) 0.1 Metamyelocytes # 0.5 Myelocytes # 0.1 Promyelocytes # 0.1 Nucleated RBCs Smudge Cells Toxic Granulation PRESENT Toxic Vacuolation PRESENT Platelet Estimate NORMAL Large Platelets PRESENT Plt Morphology Comment NOTED RBC Morphology NORMAL Polychromasia Hypochromasia Basophilic Stippling 1+ (0-2) Spherocytes 2+ (3-5) Tear Drop Cells 1+ (0-2) Ovalocytes [place] Bodies [place] Cells Acanthocytes (Spur) 2+ (3-5) Schistocytes PT INR aPTT Heparin Protocol D-Dimer High Sensitivty O2 Saturation ABG pH at Pt Temp ABG pCO2 at Pt Temp ABG pO2 at Pt Temp ABG HCO3 ABG Base Excess (Actual) VBG pH VBG pCO2 VBG pO2 VBG HCO3 VBG O2 Saturation VBG Base Excess Sodium 136 Potassium 2.9 L* Chloride 94 L Carbon Dioxide 31 H Anion Gap 14 BUN 23 H Creatinine 0.76 Estim Creat Clear Calc 95.2 Estimated GFR > 60 POC Glucose 220 H 216 H Random Glucose 231 H Lactic Acid Lactic Acid F/U @ 2Hr Calcium 8.5 Phosphorus 2.2 L Magnesium 2.6 Total Bilirubin Direct Bilirubin AST ALT Alkaline Phosphatase Ammonia Troponin I High Sens B-Natriuretic Peptide Total Protein Albumin 3.0 L Lipase 25-OH Vitamin D Total Procalcitonin TSH Urine Color Urine Appearance Urine pH Ur Specific [place] Urine Protein Urine Glucose (UA) Urine Ketones Urine Blood Urine Nitrite Ur Leukocyte Esterase Urine RBC Urine WBC Ur Squamous Epith Cells Urine Bacteria Hyaline Casts Nasal Screen MRSA (PCR) Nasal S. aureus Screen Nasal MRSA/S.aureus Interp Stool Occult Blood Stl C. cayetanensis PCR Stool Rotavirus A PCR Stl Adenov F 40/41 PCR Stool Astrovirus (PCR) Stool Campylobacter PCR Stool Cryptosporidium PCR Stl Sh Tox Pr E STEC PCR Stool E coli O157 PCR Stl Enterotoxigenic E PCR Stool EPEC (PCR) Stool EAEC (PCR) Stl E. histolytica PCR Stool Giardia Lamblia PCR Stl P. shigelloides PCR Stool Salmonella PCR Stool Sapovirus (PCR) Stl Shigella/EIEC PCR St Y.enterocolitica PCR Stool Vibrio (PCR) Stl Vibrio cholerae PCR Stl Norovirus GI/GII PCR Random Vancomycin Valproic Acid Carbamazepine Lamotrigine Clozapine Norclozapine Respiratory Panel Ashley Adenovirus (Rapid PCR) B.pert (TEM-PCR) B.parapertussis DNA PCR C. pneumoniae DNA (PCR) Coronavirus OC43 (PCR) Coronavirus HKU1 (PCR) Coronavirus 229E (PCR) Coronavirus NL63 (PCR) Hepatitis A IgM Ab Hep Bs Antigen Hepatitis C Ab (EIA) Human Metapneumovir PCR Influenza A (RT-PCR) Influenza Type A (PCR) Influenza B (RT-PCR) Influenza Type B (PCR) M. pneumoniae (PCR) Parainfluenza 1 (PCR) Parainfluenza 2 (PCR) Parainfluenza 3 (PCR) Parainfluenza 4 (PCR) RSV (PCR) RSV RNA Qual (PCR) Entero/Rhino (PCR) SARS-CoV-2 RNA (RT-PCR) Blood Type Antibody Screen 06/01/23 06/01/23 06/01/23 05:09 06:09 11:16 WBC RBC Hgb Hct MCV MCH MCHC RDW Plt Count MPV Immature Gran % (Auto) Neut % (Auto) Lymph % (Auto) [place] % (Auto) Eos % (Auto) Baso % (Auto) Lymph # (Auto) [place] # (Auto) Eos # (Auto) Baso # (Auto) Abs Immat Gran (auto) Absolute Neuts (auto) Absolute Nucleated RBC Nucleated RBC % (auto) Neutrophils % (Manual) Band Neutrophils % Lymphocytes % (Manual) Atypical Lymphs % (Man) Monocytes % (Manual) Eosinophils % (Manual) Metamyelocytes % Myelocytes % Promyelocytes % Abs Neuts (Manual) Lymphocytes # (Manual) Atyp Lymphs # (Manual) Monocytes # (Manual) Eosinophils # (Manual) Metamyelocytes # Myelocytes # Promyelocytes # Nucleated RBCs Smudge Cells Toxic Granulation Toxic Vacuolation Platelet Estimate Large Platelets Plt Morphology Comment RBC Morphology Polychromasia Hypochromasia Basophilic Stippling Spherocytes Tear Drop Cells Ovalocytes [place] Bodies Jyoti Cells Acanthocytes (Spur) Schistocytes PT INR aPTT Heparin Protocol D-Dimer High Sensitivty O2 Saturation ABG pH at Pt Temp ABG pCO2 at Pt Temp ABG pO2 at Pt Temp ABG HCO3 ABG Base Excess (Actual) VBG pH 7.49 H VBG pCO2 46 VBG pO2 81 VBG HCO3 35 H VBG O2 Saturation 99.0 VBG Base Excess 11.1 Sodium Potassium Chloride Carbon Dioxide Anion Gap BUN Creatinine Estim Creat Clear Calc Estimated GFR POC Glucose 237 H 263 H Random Glucose Lactic Acid Lactic Acid F/U @ 2Hr Calcium Phosphorus Magnesium Total Bilirubin Direct Bilirubin AST ALT Alkaline Phosphatase Ammonia Troponin I High Sens B-Natriuretic Peptide Total Protein Albumin Lipase 25-OH Vitamin D Total Procalcitonin TSH Urine Color Urine Appearance Urine pH Ur Specific [place] Urine Protein Urine Glucose (UA) Urine Ketones Urine Blood Urine Nitrite Ur Leukocyte Esterase Urine RBC Urine WBC Ur Squamous Epith Cells Urine Bacteria Hyaline Casts Nasal Screen MRSA (PCR) Nasal S. aureus Screen Nasal MRSA/S.aureus Interp Stool Occult Blood Stl C. cayetanensis PCR Stool Rotavirus A PCR Stl Adenov F 40/41 PCR Stool Astrovirus (PCR) Stool Campylobacter PCR Stool Cryptosporidium PCR Stl Sh Tox Pr E STEC PCR Stool E coli O157 PCR Stl Enterotoxigenic E PCR Stool EPEC (PCR) Stool EAEC (PCR) Stl E. histolytica PCR Stool Giardia Lamblia PCR Stl P. shigelloides PCR Stool Salmonella PCR Stool Sapovirus (PCR) Stl Shigella/EIEC PCR St Y.enterocolitica PCR Stool Vibrio (PCR) Stl Vibrio cholerae PCR Stl Norovirus GI/GII PCR Random Vancomycin Valproic Acid Carbamazepine Lamotrigine Clozapine Norclozapine Respiratory Panel Ashley Adenovirus (Rapid PCR) B.pert (TEM-PCR) B.parapertussis DNA PCR C. pneumoniae DNA (PCR) Coronavirus OC43 (PCR) Coronavirus HKU1 (PCR) Coronavirus 229E (PCR) Coronavirus NL63 (PCR) Hepatitis A IgM Ab Hep Bs Antigen Hepatitis C Ab (EIA) Human Metapneumovir PCR Influenza A (RT-PCR) Influenza Type A (PCR) Influenza B (RT-PCR) Influenza Type B (PCR) M. pneumoniae (PCR) Parainfluenza 1 (PCR) Parainfluenza 2 (PCR) Parainfluenza 3 (PCR) Parainfluenza 4 (PCR) RSV (PCR) RSV RNA Qual (PCR) Entero/Rhino (PCR) SARS-CoV-2 RNA (RT-PCR) Blood Type Antibody Screen 06/01/23 06/01/23 06/02/23 17:08 20:56 00:21 WBC RBC Hgb Hct MCV MCH MCHC RDW Plt Count MPV Immature Gran % (Auto) Neut % (Auto) Lymph % (Auto) [place] % (Auto) Eos % (Auto) Baso % (Auto) Lymph # (Auto) [place] # (Auto) Eos # (Auto) Baso # (Auto) Abs Immat Gran (auto) Absolute Neuts (auto) Absolute Nucleated RBC Nucleated RBC % (auto) Neutrophils % (Manual) Band Neutrophils % Lymphocytes % (Manual) Atypical Lymphs % (Man) Monocytes % (Manual) Eosinophils % (Manual) Metamyelocytes % Myelocytes % Promyelocytes % Abs Neuts (Manual) Lymphocytes # (Manual) Atyp Lymphs # (Manual) Monocytes # (Manual) Eosinophils # (Manual) Metamyelocytes # Myelocytes # Promyelocytes # Nucleated RBCs Smudge Cells Toxic Granulation Toxic Vacuolation Platelet Estimate Large Platelets Plt Morphology Comment RBC Morphology Polychromasia Hypochromasia Basophilic Stippling Spherocytes Tear Drop Cells Ovalocytes [place] Bodies [place] Cells Acanthocytes (Spur) Schistocytes PT INR aPTT Heparin Protocol D-Dimer High Sensitivty O2 Saturation ABG pH at Pt Temp ABG pCO2 at Pt Temp ABG pO2 at Pt Temp ABG HCO3 ABG Base Excess (Actual) VBG pH VBG pCO2 VBG pO2 VBG HCO3 VBG O2 Saturation VBG Base Excess Sodium 137 Potassium 3.4 Chloride 97 Carbon Dioxide 29 Anion Gap 14 BUN 18 H Creatinine 0.87 Estim Creat Clear Calc 83.1 Estimated GFR > 60 POC Glucose 309 H 237 H Random Glucose 282 H Lactic Acid Lactic Acid F/U @ 2Hr Calcium 8.6 Phosphorus 2.4 L Magnesium 2.5 Total Bilirubin 1.2 H Direct Bilirubin AST 307 H ALT 301 H Alkaline Phosphatase 127 H Ammonia Troponin I High Sens B-Natriuretic Peptide Total Protein 6.3 L Albumin 2.9 L Lipase 25-OH Vitamin D Total Procalcitonin TSH Urine Color Urine Appearance Urine pH Ur Specific [place] Urine Protein Urine Glucose (UA) Urine Ketones Urine Blood Urine Nitrite Ur Leukocyte Esterase Urine RBC Urine WBC Ur Squamous Epith Cells Urine Bacteria Hyaline Casts Nasal Screen MRSA (PCR) Nasal S. aureus Screen Nasal MRSA/S.aureus Interp Stool Occult Blood Stl C. cayetanensis PCR Stool Rotavirus A PCR Stl Adenov F 40/41 PCR Stool Astrovirus (PCR) Stool Campylobacter PCR Stool Cryptosporidium PCR Stl Sh Tox Pr E STEC PCR Stool E coli O157 PCR Stl Enterotoxigenic E PCR Stool EPEC (PCR) Stool EAEC (PCR) Stl E. histolytica PCR Stool Giardia Lamblia PCR Stl P. shigelloides PCR Stool Salmonella PCR Stool Sapovirus (PCR) Stl Shigella/EIEC PCR St Y.enterocolitica PCR Stool Vibrio (PCR) Stl Vibrio cholerae PCR Stl Norovirus GI/GII PCR Random Vancomycin Valproic Acid Carbamazepine Lamotrigine Clozapine Norclozapine Respiratory Panel Ashley Adenovirus (Rapid PCR) B.pert (TEM-PCR) B.parapertussis DNA PCR C. pneumoniae DNA (PCR) Coronavirus OC43 (PCR) Coronavirus HKU1 (PCR) Coronavirus 229E (PCR) Coronavirus NL63 (PCR) Hepatitis A IgM Ab Hep Bs Antigen Hepatitis C Ab (EIA) Human Metapneumovir PCR Influenza A (RT-PCR) Influenza Type A (PCR) Influenza B (RT-PCR) Influenza Type B (PCR) M. pneumoniae (PCR) Parainfluenza 1 (PCR) Parainfluenza 2 (PCR) Parainfluenza 3 (PCR) Parainfluenza 4 (PCR) RSV (PCR) RSV RNA Qual (PCR) Entero/Rhino (PCR) SARS-CoV-2 RNA (RT-PCR) Blood Type Antibody Screen 06/02/23 06/02/23 06/02/23 05:20 05:23 11:16 WBC 11.1 H RBC 2.96 L Hgb 9.3 L Hct 28.0 L MCV 94.6 MCH 31.4 MCHC 33.2 RDW 13.9 Plt Count 171 MPV 11.8 Immature Gran % (Auto) Cancelled Neut % (Auto) Cancelled Lymph % (Auto) Cancelled [place] % (Auto) Cancelled Eos % (Auto) Cancelled Baso % (Auto) Cancelled Lymph # (Auto) Cancelled [place] # (Auto) Cancelled Eos # (Auto) Cancelled Baso # (Auto) Cancelled Abs Immat Gran (auto) Cancelled Absolute Neuts (auto) Cancelled Absolute Nucleated RBC 0.070 H Nucleated RBC % (auto) 0.6 H Neutrophils % (Manual) 65 Band Neutrophils % 5 Lymphocytes % (Manual) 14 L Atypical Lymphs % (Man) 1 Monocytes % (Manual) 3 Eosinophils % (Manual) 1 Metamyelocytes % 9 Myelocytes % 2 Promyelocytes % Abs Neuts (Manual) 7.8 Lymphocytes # (Manual) 1.6 Atyp Lymphs # (Manual) 0.1 Monocytes # (Manual) 0.3 Eosinophils # (Manual) 0.1 Metamyelocytes # 1.0 Myelocytes # 0.2 Promyelocytes # Nucleated RBCs 3 H Smudge Cells Toxic Granulation Toxic Vacuolation PRESENT Platelet Estimate NORMAL Large Platelets Plt Morphology Comment NORMAL RBC Morphology NOTED Polychromasia 1+ (0-2) Hypochromasia 1+ (5-14) Basophilic Stippling Spherocytes Tear Drop Cells Ovalocytes [place] Bodies [place] Cells Acanthocytes (Spur) Schistocytes PT INR aPTT Heparin Protocol D-Dimer High Sensitivty O2 Saturation ABG pH at Pt Temp ABG pCO2 at Pt Temp ABG pO2 at Pt Temp ABG HCO3 ABG Base Excess (Actual) VBG pH 7.47 H VBG pCO2 46 VBG pO2 56 VBG HCO3 34 H VBG O2 Saturation 87.0 VBG Base Excess 9.6 Sodium 140 Potassium 3.1 L Chloride 99 Carbon Dioxide 29 Anion Gap 15 BUN 19 H Creatinine 0.83 Estim Creat Clear Calc 87.1 Estimated GFR > 60 POC Glucose 284 H Random Glucose 231 H Lactic Acid Lactic Acid F/U @ 2Hr Calcium 9.0 Phosphorus 3.3 Magnesium 2.4 Total Bilirubin Direct Bilirubin AST ALT Alkaline Phosphatase Ammonia Troponin I High Sens B-Natriuretic Peptide Total Protein Albumin 3.9 Lipase 25-OH Vitamin D Total Procalcitonin TSH Urine Color Urine Appearance Urine pH Ur Specific [place] Urine Protein Urine Glucose (UA) Urine Ketones Urine Blood Urine Nitrite Ur Leukocyte Esterase Urine RBC Urine WBC Ur Squamous Epith Cells Urine Bacteria Hyaline Casts Nasal Screen MRSA (PCR) Nasal S. aureus Screen Nasal MRSA/S.aureus Interp Stool Occult Blood Stl C. cayetanensis PCR Stool Rotavirus A PCR Stl Adenov F 40/41 PCR Stool Astrovirus (PCR) Stool Campylobacter PCR Stool Cryptosporidium PCR Stl Sh Tox Pr E STEC PCR Stool E coli O157 PCR Stl Enterotoxigenic E PCR Stool EPEC (PCR) Stool EAEC (PCR) Stl E. histolytica PCR Stool Giardia Lamblia PCR Stl P. shigelloides PCR Stool Salmonella PCR Stool Sapovirus (PCR) Stl Shigella/EIEC PCR St Y.enterocolitica PCR Stool Vibrio (PCR) Stl Vibrio cholerae PCR Stl Norovirus GI/GII PCR Random Vancomycin Valproic Acid Carbamazepine Lamotrigine Clozapine Norclozapine Respiratory Panel Ashley Adenovirus (Rapid PCR) B.pert (TEM-PCR) B.parapertussis DNA PCR C. pneumoniae DNA (PCR) Coronavirus OC43 (PCR) Coronavirus HKU1 (PCR) Coronavirus 229E (PCR) Coronavirus NL63 (PCR) Hepatitis A IgM Ab Hep Bs Antigen Hepatitis C Ab (EIA) Human Metapneumovir PCR Influenza A (RT-PCR) Influenza Type A (PCR) Influenza B (RT-PCR) Influenza Type B (PCR) M. pneumoniae (PCR) Parainfluenza 1 (PCR) Parainfluenza 2 (PCR) Parainfluenza 3 (PCR) Parainfluenza 4 (PCR) RSV (PCR) RSV RNA Qual (PCR) Entero/Rhino (PCR) SARS-CoV-2 RNA (RT-PCR) Blood Type Antibody Screen 06/02/23 06/02/23 06/02/23 13:51 17:11 19:53 WBC RBC Hgb Hct MCV MCH MCHC RDW Plt Count MPV Immature Gran % (Auto) Neut % (Auto) Lymph % (Auto) [place] % (Auto) Eos % (Auto) Baso % (Auto) Lymph # (Auto) [place] # (Auto) Eos # (Auto) Baso # (Auto) Abs Immat Gran (auto) Absolute Neuts (auto) Absolute Nucleated RBC Nucleated RBC % (auto) Neutrophils % (Manual) Band Neutrophils % Lymphocytes % (Manual) Atypical Lymphs % (Man) Monocytes % (Manual) Eosinophils % (Manual) Metamyelocytes % Myelocytes % Promyelocytes % Abs Neuts (Manual) Lymphocytes # (Manual) Atyp Lymphs # (Manual) Monocytes # (Manual) Eosinophils # (Manual) Metamyelocytes # Myelocytes # Promyelocytes # Nucleated RBCs Smudge Cells Toxic Granulation Toxic Vacuolation Platelet Estimate Large Platelets Plt Morphology Comment RBC Morphology Polychromasia Hypochromasia Basophilic Stippling Spherocytes Tear Drop Cells Ovalocytes [place] Bodies Jyoti Cells Acanthocytes (Spur) Schistocytes PT INR aPTT Heparin Protocol D-Dimer High Sensitivty O2 Saturation ABG pH at Pt Temp ABG pCO2 at Pt Temp ABG pO2 at Pt Temp ABG HCO3 ABG Base Excess (Actual) VBG pH VBG pCO2 VBG pO2 VBG HCO3 VBG O2 Saturation VBG Base Excess Sodium 141 Potassium 3.4 Chloride 101 Carbon Dioxide 31 H Anion Gap 12 BUN 26 H Creatinine 0.79 Estim Creat Clear Calc 91.5 Estimated GFR > 60 POC Glucose 286 H Random Glucose 246 H Lactic Acid Lactic Acid F/U @ 2Hr Calcium 9.1 Phosphorus Magnesium Total Bilirubin 1.2 H Direct Bilirubin AST 246 H ALT 307 H Alkaline Phosphatase 126 H Ammonia Troponin I High Sens B-Natriuretic Peptide Total Protein 6.4 L Albumin 3.7 Lipase 25-OH Vitamin D Total Procalcitonin TSH Urine Color Urine Appearance Urine pH Ur Specific [place] Urine Protein Urine Glucose (UA) Urine Ketones Urine Blood Urine Nitrite Ur Leukocyte Esterase Urine RBC Urine WBC Ur Squamous Epith Cells Urine Bacteria Hyaline Casts Nasal Screen MRSA (PCR) POSITIVE A Nasal S. aureus Screen POSITIVE A Nasal MRSA/S.aureus Interp SEE NOTE Stool Occult Blood Stl C. cayetanensis PCR Stool Rotavirus A PCR Stl Adenov F 40/41 PCR Stool Astrovirus (PCR) Stool Campylobacter PCR Stool Cryptosporidium PCR Stl Sh Tox Pr E STEC PCR Stool E coli O157 PCR Stl Enterotoxigenic E PCR Stool EPEC (PCR) Stool EAEC (PCR) Stl E. histolytica PCR Stool Giardia Lamblia PCR Stl P. shigelloides PCR Stool Salmonella PCR Stool Sapovirus (PCR) Stl Shigella/EIEC PCR St Y.enterocolitica PCR Stool Vibrio (PCR) Stl Vibrio cholerae PCR Stl Norovirus GI/GII PCR Random Vancomycin Valproic Acid Carbamazepine Lamotrigine Clozapine Norclozapine Respiratory Panel Ashley Adenovirus (Rapid PCR) B.pert (TEM-PCR) B.parapertussis DNA PCR C. pneumoniae DNA (PCR) Coronavirus OC43 (PCR) Coronavirus HKU1 (PCR) Coronavirus 229E (PCR) Coronavirus NL63 (PCR) Hepatitis A IgM Ab Hep Bs Antigen Hepatitis C Ab (EIA) Human Metapneumovir PCR Influenza A (RT-PCR) Influenza Type A (PCR) Influenza B (RT-PCR) Influenza Type B (PCR) M. pneumoniae (PCR) Parainfluenza 1 (PCR) Parainfluenza 2 (PCR) Parainfluenza 3 (PCR) Parainfluenza 4 (PCR) RSV (PCR) RSV RNA Qual (PCR) Entero/Rhino (PCR) SARS-CoV-2 RNA (RT-PCR) Blood Type Antibody Screen 06/02/23 06/03/23 06/03/23 23:48 05:47 05:51 WBC 15.8 H RBC 3.33 L Hgb 10.2 L Hct 31.0 L MCV 93.1 MCH 30.6 MCHC 32.9 RDW 14.3 Plt Count 239 D MPV 11.2 Immature Gran % (Auto) Cancelled Neut % (Auto) Cancelled Lymph % (Auto) Cancelled [place] % (Auto) Cancelled Eos % (Auto) Cancelled Baso % (Auto) Cancelled Lymph # (Auto) Cancelled [place] # (Auto) Cancelled Eos # (Auto) Cancelled Baso # (Auto) Cancelled Abs Immat Gran (auto) Cancelled Absolute Neuts (auto) Cancelled Absolute Nucleated RBC 0.060 H Nucleated RBC % (auto) 0.4 H Neutrophils % (Manual) 44 L Band Neutrophils % 21 H Lymphocytes % (Manual) 21 Atypical Lymphs % (Man) Monocytes % (Manual) 5 Eosinophils % (Manual) 4 Metamyelocytes % 2 Myelocytes % 2 Promyelocytes % 1 Abs Neuts (Manual) 10.3 H Lymphocytes # (Manual) 3.3 Atyp Lymphs # (Manual) Monocytes # (Manual) 0.8 Eosinophils # (Manual) 0.6 H Metamyelocytes # 0.3 Myelocytes # 0.3 Promyelocytes # 0.2 Nucleated RBCs 1 H Smudge Cells PRESENT Toxic Granulation PRESENT Toxic Vacuolation PRESENT Platelet Estimate NORMAL Large Platelets Plt Morphology Comment NORMAL RBC Morphology NOTED Polychromasia 1+ (0-2) Hypochromasia 1+ (5-14) Basophilic Stippling 1+ (0-2) Spherocytes Tear Drop Cells Ovalocytes [place] Bodies PRESENT Jyoti Cells Acanthocytes (Spur) Schistocytes PT INR aPTT Heparin Protocol D-Dimer High Sensitivty O2 Saturation ABG pH at Pt Temp ABG pCO2 at Pt Temp ABG pO2 at Pt Temp ABG HCO3 ABG Base Excess (Actual) VBG pH 7.48 H VBG pCO2 33 VBG pO2 43 VBG HCO3 25 VBG O2 Saturation 74.0 VBG Base Excess 2.5 Sodium 139 Potassium 3.5 Chloride 104 Carbon Dioxide 26 Anion Gap 13 BUN 32 H Creatinine 0.79 Estim Creat Clear Calc 91.5 Estimated GFR > 60 POC Glucose 187 H Random Glucose 204 H Lactic Acid Lactic Acid F/U @ 2Hr Calcium 9.0 Phosphorus 2.2 L Magnesium 2.4 Total Bilirubin 1.1 H Direct Bilirubin AST 172 H ALT 270 H Alkaline Phosphatase 120 H Ammonia Troponin I High Sens B-Natriuretic Peptide Total Protein 6.2 L Albumin 3.4 L Lipase 25-OH Vitamin D Total Procalcitonin TSH Urine Color Urine Appearance Urine pH Ur Specific [place] Urine Protein Urine Glucose (UA) Urine Ketones Urine Blood Urine Nitrite Ur Leukocyte Esterase Urine RBC Urine WBC Ur Squamous Epith Cells Urine Bacteria Hyaline Casts Nasal Screen MRSA (PCR) Nasal S. aureus Screen Nasal MRSA/S.aureus Interp Stool Occult Blood Stl C. cayetanensis PCR Stool Rotavirus A PCR Stl Adenov F 40/41 PCR Stool Astrovirus (PCR) Stool Campylobacter PCR Stool Cryptosporidium PCR Stl Sh Tox Pr E STEC PCR Stool E coli O157 PCR Stl Enterotoxigenic E PCR Stool EPEC (PCR) Stool EAEC (PCR) Stl E. histolytica PCR Stool Giardia Lamblia PCR Stl P. shigelloides PCR Stool Salmonella PCR Stool Sapovirus (PCR) Stl Shigella/EIEC PCR St Y.enterocolitica PCR Stool Vibrio (PCR) Stl Vibrio cholerae PCR Stl Norovirus GI/GII PCR Random Vancomycin Valproic Acid Carbamazepine Lamotrigine Clozapine Norclozapine Respiratory Panel Ashley Adenovirus (Rapid PCR) B.pert (TEM-PCR) B.parapertussis DNA PCR C. pneumoniae DNA (PCR) Coronavirus OC43 (PCR) Coronavirus HKU1 (PCR) Coronavirus 229E (PCR) Coronavirus NL63 (PCR) Hepatitis A IgM Ab Hep Bs Antigen Hepatitis C Ab (EIA) Human Metapneumovir PCR Influenza A (RT-PCR) Influenza Type A (PCR) Influenza B (RT-PCR) Influenza Type B (PCR) M. pneumoniae (PCR) Parainfluenza 1 (PCR) Parainfluenza 2 (PCR) Parainfluenza 3 (PCR) Parainfluenza 4 (PCR) RSV (PCR) RSV RNA Qual (PCR) Entero/Rhino (PCR) SARS-CoV-2 RNA (RT-PCR) Blood Type Antibody Screen 06/03/23 06/03/23 06/03/23 05:53 11:03 11:22 WBC RBC Hgb Hct MCV MCH MCHC RDW Plt Count MPV Immature Gran % (Auto) Neut % (Auto) Lymph % (Auto) [place] % (Auto) Eos % (Auto) Baso % (Auto) Lymph # (Auto) [place] # (Auto) Eos # (Auto) Baso # (Auto) Abs Immat Gran (auto) Absolute Neuts (auto) Absolute Nucleated RBC Nucleated RBC % (auto) Neutrophils % (Manual) Band Neutrophils % Lymphocytes % (Manual) Atypical Lymphs % (Man) Monocytes % (Manual) Eosinophils % (Manual) Metamyelocytes % Myelocytes % Promyelocytes % Abs Neuts (Manual) Lymphocytes # (Manual) Atyp Lymphs # (Manual) Monocytes # (Manual) Eosinophils # (Manual) Metamyelocytes # Myelocytes # Promyelocytes # Nucleated RBCs Smudge Cells Toxic Granulation Toxic Vacuolation Platelet Estimate Large Platelets Plt Morphology Comment RBC Morphology Polychromasia Hypochromasia Basophilic Stippling Spherocytes Tear Drop Cells Ovalocytes [place] Bodies [place] Cells Acanthocytes (Spur) Schistocytes PT INR aPTT Heparin Protocol D-Dimer High Sensitivty O2 Saturation ABG pH at Pt Temp ABG pCO2 at Pt Temp ABG pO2 at Pt Temp ABG HCO3 ABG Base Excess (Actual) VBG pH VBG pCO2 VBG pO2 VBG HCO3 VBG O2 Saturation VBG Base Excess Sodium Potassium Chloride Carbon Dioxide Anion Gap BUN Creatinine Estim Creat Clear Calc Estimated GFR POC Glucose 192 H 228 H Random Glucose Lactic Acid Lactic Acid F/U @ 2Hr Calcium Phosphorus Magnesium Total Bilirubin Direct Bilirubin AST ALT Alkaline Phosphatase Ammonia Troponin I High Sens B-Natriuretic Peptide Total Protein Albumin Lipase 25-OH Vitamin D Total Procalcitonin TSH Urine Color Urine Appearance Urine pH Ur Specific [place] Urine Protein Urine Glucose (UA) Urine Ketones Urine Blood Urine Nitrite Ur Leukocyte Esterase Urine RBC Urine WBC Ur Squamous Epith Cells Urine Bacteria Hyaline Casts Nasal Screen MRSA (PCR) Nasal S. aureus Screen Nasal MRSA/S.aureus Interp Stool Occult Blood Stl C. cayetanensis PCR Stool Rotavirus A PCR Stl Adenov F 40/41 PCR Stool Astrovirus (PCR) Stool Campylobacter PCR Stool Cryptosporidium PCR Stl Sh Tox Pr E STEC PCR Stool E coli O157 PCR Stl Enterotoxigenic E PCR Stool EPEC (PCR) Stool EAEC (PCR) Stl E. histolytica PCR Stool Giardia Lamblia PCR Stl P. shigelloides PCR Stool Salmonella PCR Stool Sapovirus (PCR) Stl Shigella/EIEC PCR St Y.enterocolitica PCR Stool Vibrio (PCR) Stl Vibrio cholerae PCR Stl Norovirus GI/GII PCR Random Vancomycin Valproic Acid Carbamazepine Lamotrigine Clozapine Norclozapine Respiratory Panel Ashley Adenovirus (Rapid PCR) B.pert (TEM-PCR) B.parapertussis DNA PCR C. pneumoniae DNA (PCR) Coronavirus OC43 (PCR) Coronavirus HKU1 (PCR) Coronavirus 229E (PCR) Coronavirus NL63 (PCR) Hepatitis A IgM Ab Nonreactive Hep Bs Antigen Negative Hepatitis C Ab (EIA) Nonreactive Human Metapneumovir PCR Influenza A (RT-PCR) Influenza Type A (PCR) Influenza B (RT-PCR) Influenza Type B (PCR) M. pneumoniae (PCR) Parainfluenza 1 (PCR) Parainfluenza 2 (PCR) Parainfluenza 3 (PCR) Parainfluenza 4 (PCR) RSV (PCR) RSV RNA Qual (PCR) Entero/Rhino (PCR) SARS-CoV-2 RNA (RT-PCR) Blood Type Antibody Screen 06/03/23 06/03/23 06/04/23 18:16 23:48 05:50 WBC RBC Hgb Hct MCV MCH MCHC RDW Plt Count MPV Immature Gran % (Auto) Neut % (Auto) Lymph % (Auto) [place] % (Auto) Eos % (Auto) Baso % (Auto) Lymph # (Auto) [place] # (Auto) Eos # (Auto) Baso # (Auto) Abs Immat Gran (auto) Absolute Neuts (auto) Absolute Nucleated RBC Nucleated RBC % (auto) Neutrophils % (Manual) Band Neutrophils % Lymphocytes % (Manual) Atypical Lymphs % (Man) Monocytes % (Manual) Eosinophils % (Manual) Metamyelocytes % Myelocytes % Promyelocytes % Abs Neuts (Manual) Lymphocytes # (Manual) Atyp Lymphs # (Manual) Monocytes # (Manual) Eosinophils # (Manual) Metamyelocytes # Myelocytes # Promyelocytes # Nucleated RBCs Smudge Cells Toxic Granulation Toxic Vacuolation Platelet Estimate Large Platelets Plt Morphology Comment RBC Morphology Polychromasia Hypochromasia Basophilic Stippling Spherocytes Tear Drop Cells Ovalocytes [place] Bodies [place] Cells Acanthocytes (Spur) Schistocytes PT INR aPTT Heparin Protocol D-Dimer High Sensitivty O2 Saturation ABG pH at Pt Temp ABG pCO2 at Pt Temp ABG pO2 at Pt Temp ABG HCO3 ABG Base Excess (Actual) VBG pH 7.35 VBG pCO2 50 VBG pO2 56 VBG HCO3 28 H VBG O2 Saturation 85.0 VBG Base Excess 1.9 Sodium Potassium Chloride Carbon Dioxide Anion Gap BUN Creatinine 0.74 Estim Creat Clear Calc 96.1 Estimated GFR > 60 POC Glucose 230 H 208 H Random Glucose Lactic Acid Lactic Acid F/U @ 2Hr Calcium Phosphorus Magnesium Total Bilirubin Direct Bilirubin AST ALT Alkaline Phosphatase Ammonia Troponin I High Sens B-Natriuretic Peptide Total Protein Albumin Lipase 25-OH Vitamin D Total Procalcitonin TSH Urine Color Urine Appearance Urine pH Ur Specific [place] Urine Protein Urine Glucose (UA) Urine Ketones Urine Blood Urine Nitrite Ur Leukocyte Esterase Urine RBC Urine WBC Ur Squamous Epith Cells Urine Bacteria Hyaline Casts Nasal Screen MRSA (PCR) Nasal S. aureus Screen Nasal MRSA/S.aureus Interp Stool Occult Blood Stl C. cayetanensis PCR Stool Rotavirus A PCR Stl Adenov F 40/41 PCR Stool Astrovirus (PCR) Stool Campylobacter PCR Stool Cryptosporidium PCR Stl Sh Tox Pr E STEC PCR Stool E coli O157 PCR Stl Enterotoxigenic E PCR Stool EPEC (PCR) Stool EAEC (PCR) Stl E. histolytica PCR Stool Giardia Lamblia PCR Stl P. shigelloides PCR Stool Salmonella PCR Stool Sapovirus (PCR) Stl Shigella/EIEC PCR St Y.enterocolitica PCR Stool Vibrio (PCR) Stl Vibrio cholerae PCR Stl Norovirus GI/GII PCR Random Vancomycin Valproic Acid Carbamazepine Lamotrigine Clozapine Norclozapine Respiratory Panel Ashley Adenovirus (Rapid PCR) B.pert (TEM-PCR) B.parapertussis DNA PCR C. pneumoniae DNA (PCR) Coronavirus OC43 (PCR) Coronavirus HKU1 (PCR) Coronavirus 229E (PCR) Coronavirus NL63 (PCR) Hepatitis A IgM Ab Hep Bs Antigen Hepatitis C Ab (EIA) Human Metapneumovir PCR Influenza A (RT-PCR) Influenza Type A (PCR) Influenza B (RT-PCR) Influenza Type B (PCR) M. pneumoniae (PCR) Parainfluenza 1 (PCR) Parainfluenza 2 (PCR) Parainfluenza 3 (PCR) Parainfluenza 4 (PCR) RSV (PCR) RSV RNA Qual (PCR) Entero/Rhino (PCR) SARS-CoV-2 RNA (RT-PCR) Blood Type Antibody Screen 06/04/23 06/04/23 06/04/23 05:55 11:16 17:14 WBC RBC Hgb Hct MCV MCH MCHC RDW Plt Count MPV Immature Gran % (Auto) Neut % (Auto) Lymph % (Auto) [place] % (Auto) Eos % (Auto) Baso % (Auto) Lymph # (Auto) [place] # (Auto) Eos # (Auto) Baso # (Auto) Abs Immat Gran (auto) Absolute Neuts (auto) Absolute Nucleated RBC Nucleated RBC % (auto) Neutrophils % (Manual) Band Neutrophils % Lymphocytes % (Manual) Atypical Lymphs % (Man) Monocytes % (Manual) Eosinophils % (Manual) Metamyelocytes % Myelocytes % Promyelocytes % Abs Neuts (Manual) Lymphocytes # (Manual) Atyp Lymphs # (Manual) Monocytes # (Manual) Eosinophils # (Manual) Metamyelocytes # Myelocytes # Promyelocytes # Nucleated RBCs Smudge Cells Toxic Granulation Toxic Vacuolation Platelet Estimate Large Platelets Plt Morphology Comment RBC Morphology Polychromasia Hypochromasia Basophilic Stippling Spherocytes Tear Drop Cells Ovalocytes [place] Bodies Jyoti Cells Acanthocytes (Spur) Schistocytes PT INR aPTT Heparin Protocol D-Dimer High Sensitivty O2 Saturation ABG pH at Pt Temp ABG pCO2 at Pt Temp ABG pO2 at Pt Temp ABG HCO3 ABG Base Excess (Actual) VBG pH VBG pCO2 VBG pO2 VBG HCO3 VBG O2 Saturation VBG Base Excess Sodium Potassium Chloride Carbon Dioxide Anion Gap BUN Creatinine Estim Creat Clear Calc Estimated GFR POC Glucose 213 H 271 H 187 H Random Glucose Lactic Acid Lactic Acid F/U @ 2Hr Calcium Phosphorus Magnesium Total Bilirubin Direct Bilirubin AST ALT Alkaline Phosphatase Ammonia Troponin I High Sens B-Natriuretic Peptide Total Protein Albumin Lipase 25-OH Vitamin D Total Procalcitonin TSH Urine Color Urine Appearance Urine pH Ur Specific [place] Urine Protein Urine Glucose (UA) Urine Ketones Urine Blood Urine Nitrite Ur Leukocyte Esterase Urine RBC Urine WBC Ur Squamous Epith Cells Urine Bacteria Hyaline Casts Nasal Screen MRSA (PCR) Nasal S. aureus Screen Nasal MRSA/S.aureus Interp Stool Occult Blood Stl C. cayetanensis PCR Stool Rotavirus A PCR Stl Adenov F 40/41 PCR Stool Astrovirus (PCR) Stool Campylobacter PCR Stool Cryptosporidium PCR Stl Sh Tox Pr E STEC PCR Stool E coli O157 PCR Stl Enterotoxigenic E PCR Stool EPEC (PCR) Stool EAEC (PCR) Stl E. histolytica PCR Stool Giardia Lamblia PCR Stl P. shigelloides PCR Stool Salmonella PCR Stool Sapovirus (PCR) Stl Shigella/EIEC PCR St Y.enterocolitica PCR Stool Vibrio (PCR) Stl Vibrio cholerae PCR Stl Norovirus GI/GII PCR Random Vancomycin Valproic Acid Carbamazepine Lamotrigine Clozapine Norclozapine Respiratory Panel Ashley Adenovirus (Rapid PCR) B.pert (TEM-PCR) B.parapertussis DNA PCR C. pneumoniae DNA (PCR) Coronavirus OC43 (PCR) Coronavirus HKU1 (PCR) Coronavirus 229E (PCR) Coronavirus NL63 (PCR) Hepatitis A IgM Ab Hep Bs Antigen Hepatitis C Ab (EIA) Human Metapneumovir PCR Influenza A (RT-PCR) Influenza Type A (PCR) Influenza B (RT-PCR) Influenza Type B (PCR) M. pneumoniae (PCR) Parainfluenza 1 (PCR) Parainfluenza 2 (PCR) Parainfluenza 3 (PCR) Parainfluenza 4 (PCR) RSV (PCR) RSV RNA Qual (PCR) Entero/Rhino (PCR) SARS-CoV-2 RNA (RT-PCR) Blood Type Antibody Screen 06/04/23 06/05/23 06/05/23 18:03 00:00 04:59 WBC 19.6 H RBC 3.22 L Hgb 9.9 L Hct 31.2 L MCV 96.9 MCH 30.7 MCHC 31.7 RDW 14.0 Plt Count 272 MPV 10.3 Immature Gran % (Auto) Cancelled Neut % (Auto) Cancelled Lymph % (Auto) Cancelled [place] % (Auto) Cancelled Eos % (Auto) Cancelled Baso % (Auto) Cancelled Lymph # (Auto) Cancelled [place] # (Auto) Cancelled Eos # (Auto) Cancelled Baso # (Auto) Cancelled Abs Immat Gran (auto) Cancelled Absolute Neuts (auto) Cancelled Absolute Nucleated RBC 0.000 Nucleated RBC % (auto) 0.0 Neutrophils % (Manual) 66 Band Neutrophils % 9 H Lymphocytes % (Manual) 13 L Atypical Lymphs % (Man) Monocytes % (Manual) 5 Eosinophils % (Manual) 2 Metamyelocytes % 4 Myelocytes % 1 Promyelocytes % Abs Neuts (Manual) 14.7 H Lymphocytes # (Manual) 2.5 Atyp Lymphs # (Manual) Monocytes # (Manual) 1.0 Eosinophils # (Manual) 0.4 Metamyelocytes # 0.8 Myelocytes # 0.2 Promyelocytes # Nucleated RBCs Smudge Cells Toxic Granulation PRESENT Toxic Vacuolation Platelet Estimate NORMAL Large Platelets Plt Morphology Comment NORMAL RBC Morphology NOTED Polychromasia 1+ (0-2) Hypochromasia Basophilic Stippling Spherocytes Tear Drop Cells Ovalocytes [place] Bodies [place] Cells 1+ (0-2) Acanthocytes (Spur) 1+ (0-2) Schistocytes 1+ (0-2) PT INR aPTT Heparin Protocol D-Dimer High Sensitivty O2 Saturation ABG pH at Pt Temp ABG pCO2 at Pt Temp ABG pO2 at Pt Temp ABG HCO3 ABG Base Excess (Actual) VBG pH VBG pCO2 VBG pO2 VBG HCO3 VBG O2 Saturation VBG Base Excess Sodium 139 Potassium 3.8 Chloride 106 Carbon Dioxide 25 Anion Gap 12 BUN 28 H Creatinine 0.74 Estim Creat Clear Calc 96.1 Estimated GFR > 60 POC Glucose 174 H Random Glucose 188 H Lactic Acid Lactic Acid F/U @ 2Hr Calcium 8.3 L D Phosphorus Magnesium Total Bilirubin 0.6 Direct Bilirubin AST 38 H ALT 113 H Alkaline Phosphatase 92 Ammonia Troponin I High Sens B-Natriuretic Peptide Total Protein 6.1 L Albumin 2.9 L Lipase 25-OH Vitamin D Total Procalcitonin TSH Urine Color Urine Appearance Urine pH Ur Specific [place] Urine Protein Urine Glucose (UA) Urine Ketones Urine Blood Urine Nitrite Ur Leukocyte Esterase Urine RBC Urine WBC Ur Squamous Epith Cells Urine Bacteria Hyaline Casts Nasal Screen MRSA (PCR) Nasal S. aureus Screen Nasal MRSA/S.aureus Interp Stool Occult Blood Stl C. cayetanensis PCR Stool Rotavirus A PCR Stl Adenov F 40/41 PCR Stool Astrovirus (PCR) Stool Campylobacter PCR Stool Cryptosporidium PCR Stl Sh Tox Pr E STEC PCR Stool E coli O157 PCR Stl Enterotoxigenic E PCR Stool EPEC (PCR) Stool EAEC (PCR) Stl E. histolytica PCR Stool Giardia Lamblia PCR Stl P. shigelloides PCR Stool Salmonella PCR Stool Sapovirus (PCR) Stl Shigella/EIEC PCR St Y.enterocolitica PCR Stool Vibrio (PCR) Stl Vibrio cholerae PCR Stl Norovirus GI/GII PCR Random Vancomycin 13.1 L Valproic Acid Carbamazepine Lamotrigine Clozapine Norclozapine Respiratory Panel Ashley Adenovirus (Rapid PCR) B.pert (TEM-PCR) B.parapertussis DNA PCR C. pneumoniae DNA (PCR) Coronavirus OC43 (PCR) Coronavirus HKU1 (PCR) Coronavirus 229E (PCR) Coronavirus NL63 (PCR) Hepatitis A IgM Ab Hep Bs Antigen Hepatitis C Ab (EIA) Human Metapneumovir PCR Influenza A (RT-PCR) Influenza Type A (PCR) Influenza B (RT-PCR) Influenza Type B (PCR) M. pneumoniae (PCR) Parainfluenza 1 (PCR) Parainfluenza 2 (PCR) Parainfluenza 3 (PCR) Parainfluenza 4 (PCR) RSV (PCR) RSV RNA Qual (PCR) Entero/Rhino (PCR) SARS-CoV-2 RNA (RT-PCR) Blood Type Antibody Screen 06/05/23 06/05/23 06/05/23 05:01 11:09 17:40 WBC RBC Hgb Hct MCV MCH MCHC RDW Plt Count MPV Immature Gran % (Auto) Neut % (Auto) Lymph % (Auto) [place] % (Auto) Eos % (Auto) Baso % (Auto) Lymph # (Auto) [place] # (Auto) Eos # (Auto) Baso # (Auto) Abs Immat Gran (auto) Absolute Neuts (auto) Absolute Nucleated RBC Nucleated RBC % (auto) Neutrophils % (Manual) Band Neutrophils % Lymphocytes % (Manual) Atypical Lymphs % (Man) Monocytes % (Manual) Eosinophils % (Manual) Metamyelocytes % Myelocytes % Promyelocytes % Abs Neuts (Manual) Lymphocytes # (Manual) Atyp Lymphs # (Manual) Monocytes # (Manual) Eosinophils # (Manual) Metamyelocytes # Myelocytes # Promyelocytes # Nucleated RBCs Smudge Cells Toxic Granulation Toxic Vacuolation Platelet Estimate Large Platelets Plt Morphology Comment RBC Morphology Polychromasia Hypochromasia Basophilic Stippling Spherocytes Tear Drop Cells Ovalocytes [place] Bodies [place] Cells Acanthocytes (Spur) Schistocytes PT INR aPTT Heparin Protocol D-Dimer High Sensitivty O2 Saturation ABG pH at Pt Temp ABG pCO2 at Pt Temp ABG pO2 at Pt Temp ABG HCO3 ABG Base Excess (Actual) VBG pH 7.46 H VBG pCO2 41 VBG pO2 45 VBG HCO3 29 H VBG O2 Saturation 77.0 VBG Base Excess 5.7 Sodium Potassium Chloride Carbon Dioxide Anion Gap BUN Creatinine Estim Creat Clear Calc Estimated GFR POC Glucose 229 H 252 H Random Glucose Lactic Acid Lactic Acid F/U @ 2Hr Calcium Phosphorus Magnesium Total Bilirubin Direct Bilirubin AST ALT Alkaline Phosphatase Ammonia Troponin I High Sens B-Natriuretic Peptide Total Protein Albumin Lipase 25-OH Vitamin D Total Procalcitonin TSH Urine Color Urine Appearance Urine pH Ur Specific [place] Urine Protein Urine Glucose (UA) Urine Ketones Urine Blood Urine Nitrite Ur Leukocyte Esterase Urine RBC Urine WBC Ur Squamous Epith Cells Urine Bacteria Hyaline Casts Nasal Screen MRSA (PCR) Nasal S. aureus Screen Nasal MRSA/S.aureus Interp Stool Occult Blood Stl C. cayetanensis PCR Stool Rotavirus A PCR Stl Adenov F 40/41 PCR Stool Astrovirus (PCR) Stool Campylobacter PCR Stool Cryptosporidium PCR Stl Sh Tox Pr E STEC PCR Stool E coli O157 PCR Stl Enterotoxigenic E PCR Stool EPEC (PCR) Stool EAEC (PCR) Stl E. histolytica PCR Stool Giardia Lamblia PCR Stl P. shigelloides PCR Stool Salmonella PCR Stool Sapovirus (PCR) Stl Shigella/EIEC PCR St Y.enterocolitica PCR Stool Vibrio (PCR) Stl Vibrio cholerae PCR Stl Norovirus GI/GII PCR Random Vancomycin Valproic Acid Carbamazepine Lamotrigine Clozapine Norclozapine Respiratory Panel Ashley Adenovirus (Rapid PCR) B.pert (TEM-PCR) B.parapertussis DNA PCR C. pneumoniae DNA (PCR) Coronavirus OC43 (PCR) Coronavirus HKU1 (PCR) Coronavirus 229E (PCR) Coronavirus NL63 (PCR) Hepatitis A IgM Ab Hep Bs Antigen Hepatitis C Ab (EIA) Human Metapneumovir PCR Influenza A (RT-PCR) Influenza Type A (PCR) Influenza B (RT-PCR) Influenza Type B (PCR) M. pneumoniae (PCR) Parainfluenza 1 (PCR) Parainfluenza 2 (PCR) Parainfluenza 3 (PCR) Parainfluenza 4 (PCR) RSV (PCR) RSV RNA Qual (PCR) Entero/Rhino (PCR) SARS-CoV-2 RNA (RT-PCR) Blood Type Antibody Screen 06/05/23 06/05/23 06/06/23 18:04 23:35 04:39 WBC 21.4 H RBC 3.11 L Hgb 9.6 L Hct 30.1 L MCV 96.8 MCH 30.9 MCHC 31.9 RDW 14.4 Plt Count 309 MPV 10.8 Immature Gran % (Auto) Cancelled Neut % (Auto) Cancelled Lymph % (Auto) Cancelled [place] % (Auto) Cancelled Eos % (Auto) Cancelled Baso % (Auto) Cancelled Lymph # (Auto) Cancelled [place] # (Auto) Cancelled Eos # (Auto) Cancelled Baso # (Auto) Cancelled Abs Immat Gran (auto) Cancelled Absolute Neuts (auto) Cancelled Absolute Nucleated RBC 0.030 H Nucleated RBC % (auto) 0.1 Neutrophils % (Manual) 66 Band Neutrophils % 9 H Lymphocytes % (Manual) 9 L Atypical Lymphs % (Man) 1 Monocytes % (Manual) 8 Eosinophils % (Manual) 2 Metamyelocytes % 3 Myelocytes % 2 Promyelocytes % Abs Neuts (Manual) 16.1 H Lymphocytes # (Manual) 1.9 Atyp Lymphs # (Manual) 0.2 Monocytes # (Manual) 1.7 H Eosinophils # (Manual) 0.4 Metamyelocytes # 0.6 Myelocytes # 0.4 Promyelocytes # Nucleated RBCs Smudge Cells Toxic Granulation PRESENT Toxic Vacuolation Platelet Estimate NORMAL Large Platelets PRESENT Plt Morphology Comment NOTED RBC Morphology NOTED Polychromasia 1+ (0-2) Hypochromasia Basophilic Stippling Spherocytes Tear Drop Cells Ovalocytes 1+ (5-14) [place] Bodies Jyoti Cells 1+ (0-2) Acanthocytes (Spur) Schistocytes 1+ (0-2) PT INR aPTT Heparin Protocol D-Dimer High Sensitivty O2 Saturation ABG pH at Pt Temp ABG pCO2 at Pt Temp ABG pO2 at Pt Temp ABG HCO3 ABG Base Excess (Actual) VBG pH VBG pCO2 VBG pO2 VBG HCO3 VBG O2 Saturation VBG Base Excess Sodium 141 Potassium 3.4 Chloride 104 Carbon Dioxide 26 Anion Gap 14 BUN 24 H Creatinine 0.89 Estim Creat Clear Calc 79.8 Estimated GFR > 60 POC Glucose 172 H Random Glucose 174 H Lactic Acid Lactic Acid F/U @ 2Hr Calcium 8.3 L Phosphorus 2.3 L Magnesium 1.9 Total Bilirubin 0.6 Direct Bilirubin AST 27 ALT 73 H Alkaline Phosphatase 86 Ammonia Troponin I High Sens B-Natriuretic Peptide Total Protein 6.1 L Albumin 3.2 L Lipase 25-OH Vitamin D Total Procalcitonin TSH Urine Color Urine Appearance Urine pH Ur Specific [place] Urine Protein Urine Glucose (UA) Urine Ketones Urine Blood Urine Nitrite Ur Leukocyte Esterase Urine RBC Urine WBC Ur Squamous Epith Cells Urine Bacteria Hyaline Casts Nasal Screen MRSA (PCR) Nasal S. aureus Screen Nasal MRSA/S.aureus Interp Stool Occult Blood Stl C. cayetanensis PCR Stool Rotavirus A PCR Stl Adenov F 40/41 PCR Stool Astrovirus (PCR) Stool Campylobacter PCR Stool Cryptosporidium PCR Stl Sh Tox Pr E STEC PCR Stool E coli O157 PCR Stl Enterotoxigenic E PCR Stool EPEC (PCR) Stool EAEC (PCR) Stl E. histolytica PCR Stool Giardia Lamblia PCR Stl P. shigelloides PCR Stool Salmonella PCR Stool Sapovirus (PCR) Stl Shigella/EIEC PCR St Y.enterocolitica PCR Stool Vibrio (PCR) Stl Vibrio cholerae PCR Stl Norovirus GI/GII PCR Random Vancomycin 22.8 H Valproic Acid Carbamazepine Lamotrigine Clozapine Norclozapine Respiratory Panel Ashley Adenovirus (Rapid PCR) B.pert (TEM-PCR) B.parapertussis DNA PCR C. pneumoniae DNA (PCR) Coronavirus OC43 (PCR) Coronavirus HKU1 (PCR) Coronavirus 229E (PCR) Coronavirus NL63 (PCR) Hepatitis A IgM Ab Hep Bs Antigen Hepatitis C Ab (EIA) Human Metapneumovir PCR Influenza A (RT-PCR) Influenza Type A (PCR) Influenza B (RT-PCR) Influenza Type B (PCR) M. pneumoniae (PCR) Parainfluenza 1 (PCR) Parainfluenza 2 (PCR) Parainfluenza 3 (PCR) Parainfluenza 4 (PCR) RSV (PCR) RSV RNA Qual (PCR) Entero/Rhino (PCR) SARS-CoV-2 RNA (RT-PCR) Blood Type Antibody Screen 06/06/23 06/06/23 06/06/23 04:44 06:03 11:52 WBC RBC Hgb Hct MCV MCH MCHC RDW Plt Count MPV Immature Gran % (Auto) Neut % (Auto) Lymph % (Auto) [place] % (Auto) Eos % (Auto) Baso % (Auto) Lymph # (Auto) [place] # (Auto) Eos # (Auto) Baso # (Auto) Abs Immat Gran (auto) Absolute Neuts (auto) Absolute Nucleated RBC Nucleated RBC % (auto) Neutrophils % (Manual) Band Neutrophils % Lymphocytes % (Manual) Atypical Lymphs % (Man) Monocytes % (Manual) Eosinophils % (Manual) Metamyelocytes % Myelocytes % Promyelocytes % Abs Neuts (Manual) Lymphocytes # (Manual) Atyp Lymphs # (Manual) Monocytes # (Manual) Eosinophils # (Manual) Metamyelocytes # Myelocytes # Promyelocytes # Nucleated RBCs Smudge Cells Toxic Granulation Toxic Vacuolation Platelet Estimate Large Platelets Plt Morphology Comment RBC Morphology Polychromasia Hypochromasia Basophilic Stippling Spherocytes Tear Drop Cells Ovalocytes [place] Bodies [place] Cells Acanthocytes (Spur) Schistocytes PT INR aPTT Heparin Protocol D-Dimer High Sensitivty O2 Saturation ABG pH at Pt Temp ABG pCO2 at Pt Temp ABG pO2 at Pt Temp ABG HCO3 ABG Base Excess (Actual) VBG pH 7.49 H VBG pCO2 39 VBG pO2 51 VBG HCO3 30 H VBG O2 Saturation 83.0 VBG Base Excess 6.7 Sodium Potassium Chloride Carbon Dioxide Anion Gap BUN Creatinine Estim Creat Clear Calc Estimated GFR POC Glucose 182 H Random Glucose Lactic Acid Lactic Acid F/U @ 2Hr Calcium Phosphorus Magnesium Total Bilirubin Direct Bilirubin AST ALT Alkaline Phosphatase Ammonia Troponin I High Sens B-Natriuretic Peptide Total Protein Albumin Lipase 25-OH Vitamin D Total Procalcitonin TSH Urine Color Urine Appearance Urine pH Ur Specific [place] Urine Protein Urine Glucose (UA) Urine Ketones Urine Blood Urine Nitrite Ur Leukocyte Esterase Urine RBC Urine WBC Ur Squamous Epith Cells Urine Bacteria Hyaline Casts Nasal Screen MRSA (PCR) Nasal S. aureus Screen Nasal MRSA/S.aureus Interp Stool Occult Blood Stl C. cayetanensis PCR Stool Rotavirus A PCR Stl Adenov F 40/41 PCR Stool Astrovirus (PCR) Stool Campylobacter PCR Stool Cryptosporidium PCR Stl Sh Tox Pr E STEC PCR Stool E coli O157 PCR Stl Enterotoxigenic E PCR Stool EPEC (PCR) Stool EAEC (PCR) Stl E. histolytica PCR Stool Giardia Lamblia PCR Stl P. shigelloides PCR Stool Salmonella PCR Stool Sapovirus (PCR) Stl Shigella/EIEC PCR St Y.enterocolitica PCR Stool Vibrio (PCR) Stl Vibrio cholerae PCR Stl Norovirus GI/GII PCR Random Vancomycin 15.7 Valproic Acid Carbamazepine Lamotrigine Clozapine Norclozapine Respiratory Panel Ashley Adenovirus (Rapid PCR) B.pert (TEM-PCR) B.parapertussis DNA PCR C. pneumoniae DNA (PCR) Coronavirus OC43 (PCR) Coronavirus HKU1 (PCR) Coronavirus 229E (PCR) Coronavirus NL63 (PCR) Hepatitis A IgM Ab Hep Bs Antigen Hepatitis C Ab (EIA) Human Metapneumovir PCR Influenza A (RT-PCR) Influenza Type A (PCR) Influenza B (RT-PCR) Influenza Type B (PCR) M. pneumoniae (PCR) Parainfluenza 1 (PCR) Parainfluenza 2 (PCR) Parainfluenza 3 (PCR) Parainfluenza 4 (PCR) RSV (PCR) RSV RNA Qual (PCR) Entero/Rhino (PCR) SARS-CoV-2 RNA (RT-PCR) Blood Type Antibody Screen 06/06/23 06/06/23 06/06/23 17:58 20:14 23:36 WBC RBC Hgb Hct MCV MCH MCHC RDW Plt Count MPV Immature Gran % (Auto) Neut % (Auto) Lymph % (Auto) [place] % (Auto) Eos % (Auto) Baso % (Auto) Lymph # (Auto) [place] # (Auto) Eos # (Auto) Baso # (Auto) Abs Immat Gran (auto) Absolute Neuts (auto) Absolute Nucleated RBC Nucleated RBC % (auto) Neutrophils % (Manual) Band Neutrophils % Lymphocytes % (Manual) Atypical Lymphs % (Man) Monocytes % (Manual) Eosinophils % (Manual) Metamyelocytes % Myelocytes % Promyelocytes % Abs Neuts (Manual) Lymphocytes # (Manual) Atyp Lymphs # (Manual) Monocytes # (Manual) Eosinophils # (Manual) Metamyelocytes # Myelocytes # Promyelocytes # Nucleated RBCs Smudge Cells Toxic Granulation Toxic Vacuolation Platelet Estimate Large Platelets Plt Morphology Comment RBC Morphology Polychromasia Hypochromasia Basophilic Stippling Spherocytes Tear Drop Cells Ovalocytes [place] Bodies Jyoti Cells Acanthocytes (Spur) Schistocytes PT INR aPTT Heparin Protocol D-Dimer High Sensitivty O2 Saturation ABG pH at Pt Temp ABG pCO2 at Pt Temp ABG pO2 at Pt Temp ABG HCO3 ABG Base Excess (Actual) VBG pH 7.56 H VBG pCO2 27 VBG pO2 89 VBG HCO3 24 VBG O2 Saturation 99.0 VBG Base Excess 3.4 Sodium Potassium Chloride Carbon Dioxide Anion Gap BUN Creatinine Estim Creat Clear Calc Estimated GFR POC Glucose 157 H 171 H Random Glucose Lactic Acid Lactic Acid F/U @ 2Hr Calcium Phosphorus Magnesium Total Bilirubin Direct Bilirubin AST ALT Alkaline Phosphatase Ammonia Troponin I High Sens B-Natriuretic Peptide Total Protein Albumin Lipase 25-OH Vitamin D Total Procalcitonin TSH Urine Color Urine Appearance Urine pH Ur Specific [place] Urine Protein Urine Glucose (UA) Urine Ketones Urine Blood Urine Nitrite Ur Leukocyte Esterase Urine RBC Urine WBC Ur Squamous Epith Cells Urine Bacteria Hyaline Casts Nasal Screen MRSA (PCR) Nasal S. aureus Screen Nasal MRSA/S.aureus Interp Stool Occult Blood Stl C. cayetanensis PCR Stool Rotavirus A PCR Stl Adenov F 40/41 PCR Stool Astrovirus (PCR) Stool Campylobacter PCR Stool Cryptosporidium PCR Stl Sh Tox Pr E STEC PCR Stool E coli O157 PCR Stl Enterotoxigenic E PCR Stool EPEC (PCR) Stool EAEC (PCR) Stl E. histolytica PCR Stool Giardia Lamblia PCR Stl P. shigelloides PCR Stool Salmonella PCR Stool Sapovirus (PCR) Stl Shigella/EIEC PCR St Y.enterocolitica PCR Stool Vibrio (PCR) Stl Vibrio cholerae PCR Stl Norovirus GI/GII PCR Random Vancomycin Valproic Acid Carbamazepine Lamotrigine Clozapine Norclozapine Respiratory Panel Ashley Adenovirus (Rapid PCR) B.pert (TEM-PCR) B.parapertussis DNA PCR C. pneumoniae DNA (PCR) Coronavirus OC43 (PCR) Coronavirus HKU1 (PCR) Coronavirus 229E (PCR) Coronavirus NL63 (PCR) Hepatitis A IgM Ab Hep Bs Antigen Hepatitis C Ab (EIA) Human Metapneumovir PCR Influenza A (RT-PCR) Influenza Type A (PCR) Influenza B (RT-PCR) Influenza Type B (PCR) M. pneumoniae (PCR) Parainfluenza 1 (PCR) Parainfluenza 2 (PCR) Parainfluenza 3 (PCR) Parainfluenza 4 (PCR) RSV (PCR) RSV RNA Qual (PCR) Entero/Rhino (PCR) SARS-CoV-2 RNA (RT-PCR) Blood Type Antibody Screen 06/07/23 06/07/23 06/07/23 04:43 05:53 05:57 WBC 21.9 H RBC 2.80 L Hgb 8.6 L Hct 26.4 L MCV 94.3 MCH 30.7 MCHC 32.6 RDW 14.6 Plt Count 308 MPV 10.0 Immature Gran % (Auto) 3.1 H Neut % (Auto) 83.9 H Lymph % (Auto) 8.7 L [place] % (Auto) 3.4 Eos % (Auto) 0.6 Baso % (Auto) 0.3 Lymph # (Auto) 1.9 [place] # (Auto) 0.7 Eos # (Auto) 0.1 Baso # (Auto) 0.1 Abs Immat Gran (auto) 0.68 H Absolute Neuts (auto) 18.4 H Absolute Nucleated RBC 0.000 Nucleated RBC % (auto) 0.0 Neutrophils % (Manual) Band Neutrophils % Lymphocytes % (Manual) Atypical Lymphs % (Man) Monocytes % (Manual) Eosinophils % (Manual) Metamyelocytes % Myelocytes % Promyelocytes % Abs Neuts (Manual) Lymphocytes # (Manual) Atyp Lymphs # (Manual) Monocytes # (Manual) Eosinophils # (Manual) Metamyelocytes # Myelocytes # Promyelocytes # Nucleated RBCs Smudge Cells Toxic Granulation Toxic Vacuolation Platelet Estimate Large Platelets Plt Morphology Comment RBC Morphology Polychromasia Hypochromasia Basophilic Stippling Spherocytes Tear Drop Cells Ovalocytes [place] Bodies [place] Cells Acanthocytes (Spur) Schistocytes PT INR aPTT Heparin Protocol D-Dimer High Sensitivty O2 Saturation ABG pH at Pt Temp ABG pCO2 at Pt Temp ABG pO2 at Pt Temp ABG HCO3 ABG Base Excess (Actual) VBG pH VBG pCO2 VBG pO2 VBG HCO3 VBG O2 Saturation VBG Base Excess Sodium 145 Potassium 3.2 L Chloride 108 Carbon Dioxide 28 Anion Gap 12 BUN 22 H Creatinine 0.85 0.78 Estim Creat Clear Calc 83.6 91.1 Estimated GFR > 60 > 60 POC Glucose 154 H Random Glucose 170 H Lactic Acid Lactic Acid F/U @ 2Hr Calcium 8.3 L Phosphorus Magnesium Total Bilirubin 0.8 Direct Bilirubin AST 35 H ALT 51 H Alkaline Phosphatase 79 Ammonia Troponin I High Sens B-Natriuretic Peptide Total Protein 6.3 L Albumin 3.4 L Lipase 25-OH Vitamin D Total Procalcitonin TSH Urine Color Urine Appearance Urine pH Ur Specific [place] Urine Protein Urine Glucose (UA) Urine Ketones Urine Blood Urine Nitrite Ur Leukocyte Esterase Urine RBC Urine WBC Ur Squamous Epith Cells Urine Bacteria Hyaline Casts Nasal Screen MRSA (PCR) Nasal S. aureus Screen Nasal MRSA/S.aureus Interp Stool Occult Blood Stl C. cayetanensis PCR Stool Rotavirus A PCR Stl Adenov F 40/41 PCR Stool Astrovirus (PCR) Stool Campylobacter PCR Stool Cryptosporidium PCR Stl Sh Tox Pr E STEC PCR Stool E coli O157 PCR Stl Enterotoxigenic E PCR Stool EPEC (PCR) Stool EAEC (PCR) Stl E. histolytica PCR Stool Giardia Lamblia PCR Stl P. shigelloides PCR Stool Salmonella PCR Stool Sapovirus (PCR) Stl Shigella/EIEC PCR St Y.enterocolitica PCR Stool Vibrio (PCR) Stl Vibrio cholerae PCR Stl Norovirus GI/GII PCR Random Vancomycin 15.8 Valproic Acid Carbamazepine Lamotrigine Clozapine Norclozapine Respiratory Panel Ashley Adenovirus (Rapid PCR) B.pert (TEM-PCR) B.parapertussis DNA PCR C. pneumoniae DNA (PCR) Coronavirus OC43 (PCR) Coronavirus HKU1 (PCR) Coronavirus 229E (PCR) Coronavirus NL63 (PCR) Hepatitis A IgM Ab Hep Bs Antigen Hepatitis C Ab (EIA) Human Metapneumovir PCR Influenza A (RT-PCR) Influenza Type A (PCR) Influenza B (RT-PCR) Influenza Type B (PCR) M. pneumoniae (PCR) Parainfluenza 1 (PCR) Parainfluenza 2 (PCR) Parainfluenza 3 (PCR) Parainfluenza 4 (PCR) RSV (PCR) RSV RNA Qual (PCR) Entero/Rhino (PCR) SARS-CoV-2 RNA (RT-PCR) Blood Type Antibody Screen 06/07/23 06/07/23 06/07/23 08:08 09:26 11:14 WBC RBC Hgb Hct MCV MCH MCHC RDW Plt Count MPV Immature Gran % (Auto) Neut % (Auto) Lymph % (Auto) [place] % (Auto) Eos % (Auto) Baso % (Auto) Lymph # (Auto) [place] # (Auto) Eos # (Auto) Baso # (Auto) Abs Immat Gran (auto) Absolute Neuts (auto) 16.0 H Absolute Nucleated RBC Nucleated RBC % (auto) Neutrophils % (Manual) Band Neutrophils % Lymphocytes % (Manual) Atypical Lymphs % (Man) Monocytes % (Manual) Eosinophils % (Manual) Metamyelocytes % Myelocytes % Promyelocytes % Abs Neuts (Manual) Lymphocytes # (Manual) Atyp Lymphs # (Manual) Monocytes # (Manual) Eosinophils # (Manual) Metamyelocytes # Myelocytes # Promyelocytes # Nucleated RBCs Smudge Cells Toxic Granulation Toxic Vacuolation Platelet Estimate Large Platelets Plt Morphology Comment RBC Morphology Polychromasia Hypochromasia Basophilic Stippling Spherocytes Tear Drop Cells Ovalocytes [place] Bodies Jyoti Cells Acanthocytes (Spur) Schistocytes PT INR aPTT Heparin Protocol D-Dimer High Sensitivty O2 Saturation 95.0 ABG pH at Pt Temp 7.38 ABG pCO2 at Pt Temp 43 ABG pO2 at Pt Temp 83 ABG HCO3 25 ABG Base Excess (Actual) 0.7 VBG pH VBG pCO2 VBG pO2 VBG HCO3 VBG O2 Saturation VBG Base Excess Sodium Potassium Chloride Carbon Dioxide Anion Gap BUN Creatinine Estim Creat Clear Calc Estimated GFR POC Glucose 177 H Random Glucose Lactic Acid Lactic Acid F/U @ 2Hr Calcium Phosphorus Magnesium Total Bilirubin Direct Bilirubin AST ALT Alkaline Phosphatase Ammonia Troponin I High Sens B-Natriuretic Peptide Total Protein Albumin Lipase 25-OH Vitamin D Total Procalcitonin TSH Urine Color Urine Appearance Urine pH Ur Specific [place] Urine Protein Urine Glucose (UA) Urine Ketones Urine Blood Urine Nitrite Ur Leukocyte Esterase Urine RBC Urine WBC Ur Squamous Epith Cells Urine Bacteria Hyaline Casts Nasal Screen MRSA (PCR) Nasal S. aureus Screen Nasal MRSA/S.aureus Interp Stool Occult Blood Stl C. cayetanensis PCR Stool Rotavirus A PCR Stl Adenov F 40/41 PCR Stool Astrovirus (PCR) Stool Campylobacter PCR Stool Cryptosporidium PCR Stl Sh Tox Pr E STEC PCR Stool E coli O157 PCR Stl Enterotoxigenic E PCR Stool EPEC (PCR) Stool EAEC (PCR) Stl E. histolytica PCR Stool Giardia Lamblia PCR Stl P. shigelloides PCR Stool Salmonella PCR Stool Sapovirus (PCR) Stl Shigella/EIEC PCR St Y.enterocolitica PCR Stool Vibrio (PCR) Stl Vibrio cholerae PCR Stl Norovirus GI/GII PCR Random Vancomycin Valproic Acid Carbamazepine Lamotrigine Clozapine Norclozapine Respiratory Panel Ashley Adenovirus (Rapid PCR) B.pert (TEM-PCR) B.parapertussis DNA PCR C. pneumoniae DNA (PCR) Coronavirus OC43 (PCR) Coronavirus HKU1 (PCR) Coronavirus 229E (PCR) Coronavirus NL63 (PCR) Hepatitis A IgM Ab Hep Bs Antigen Hepatitis C Ab (EIA) Human Metapneumovir PCR Influenza A (RT-PCR) Influenza Type A (PCR) Influenza B (RT-PCR) Influenza Type B (PCR) M. pneumoniae (PCR) Parainfluenza 1 (PCR) Parainfluenza 2 (PCR) Parainfluenza 3 (PCR) Parainfluenza 4 (PCR) RSV (PCR) RSV RNA Qual (PCR) Entero/Rhino (PCR) SARS-CoV-2 RNA (RT-PCR) Blood Type Antibody Screen 06/07/23 06/07/23 06/07/23 17:21 20:19 20:22 WBC RBC Hgb Hct MCV MCH MCHC RDW Plt Count MPV Immature Gran % (Auto) Neut % (Auto) Lymph % (Auto) [place] % (Auto) Eos % (Auto) Baso % (Auto) Lymph # (Auto) [place] # (Auto) Eos # (Auto) Baso # (Auto) Abs Immat Gran (auto) Absolute Neuts (auto) Absolute Nucleated RBC Nucleated RBC % (auto) Neutrophils % (Manual) Band Neutrophils % Lymphocytes % (Manual) Atypical Lymphs % (Man) Monocytes % (Manual) Eosinophils % (Manual) Metamyelocytes % Myelocytes % Promyelocytes % Abs Neuts (Manual) Lymphocytes # (Manual) Atyp Lymphs # (Manual) Monocytes # (Manual) Eosinophils # (Manual) Metamyelocytes # Myelocytes # Promyelocytes # Nucleated RBCs Smudge Cells Toxic Granulation Toxic Vacuolation Platelet Estimate Large Platelets Plt Morphology Comment RBC Morphology Polychromasia Hypochromasia Basophilic Stippling Spherocytes Tear Drop Cells Ovalocytes [place] Bodies Jyoti Cells Acanthocytes (Spur) Schistocytes PT INR aPTT Heparin Protocol D-Dimer High Sensitivty O2 Saturation ABG pH at Pt Temp ABG pCO2 at Pt Temp ABG pO2 at Pt Temp ABG HCO3 ABG Base Excess (Actual) VBG pH 7.48 H VBG pCO2 37 VBG pO2 59 VBG HCO3 28 H VBG O2 Saturation 91.0 VBG Base Excess 4.8 Sodium 146 H Potassium 3.3 Chloride 110 H Carbon Dioxide 28 Anion Gap 11 L BUN 24 H Creatinine 0.72 Estim Creat Clear Calc 98.7 Estimated GFR > 60 POC Glucose 173 H Random Glucose 173 H Lactic Acid Lactic Acid F/U @ 2Hr Calcium 8.1 L Phosphorus Magnesium Total Bilirubin 0.6 Direct Bilirubin AST 29 ALT 45 H Alkaline Phosphatase 75 Ammonia Troponin I High Sens B-Natriuretic Peptide Total Protein 6.2 L Albumin 3.3 L Lipase 25-OH Vitamin D Total Procalcitonin TSH Urine Color Urine Appearance Urine pH Ur Specific [place] Urine Protein Urine Glucose (UA) Urine Ketones Urine Blood Urine Nitrite Ur Leukocyte Esterase Urine RBC Urine WBC Ur Squamous Epith Cells Urine Bacteria Hyaline Casts Nasal Screen MRSA (PCR) Nasal S. aureus Screen Nasal MRSA/S.aureus Interp Stool Occult Blood Stl C. cayetanensis PCR Stool Rotavirus A PCR Stl Adenov F 40/41 PCR Stool Astrovirus (PCR) Stool Campylobacter PCR Stool Cryptosporidium PCR Stl Sh Tox Pr E STEC PCR Stool E coli O157 PCR Stl Enterotoxigenic E PCR Stool EPEC (PCR) Stool EAEC (PCR) Stl E. histolytica PCR Stool Giardia Lamblia PCR Stl P. shigelloides PCR Stool Salmonella PCR Stool Sapovirus (PCR) Stl Shigella/EIEC PCR St Y.enterocolitica PCR Stool Vibrio (PCR) Stl Vibrio cholerae PCR Stl Norovirus GI/GII PCR Random Vancomycin Valproic Acid Carbamazepine Lamotrigine Clozapine Norclozapine Respiratory Panel Ashley Adenovirus (Rapid PCR) B.pert (TEM-PCR) B.parapertussis DNA PCR C. pneumoniae DNA (PCR) Coronavirus OC43 (PCR) Coronavirus HKU1 (PCR) Coronavirus 229E (PCR) Coronavirus NL63 (PCR) Hepatitis A IgM Ab Hep Bs Antigen Hepatitis C Ab (EIA) Human Metapneumovir PCR Influenza A (RT-PCR) Influenza Type A (PCR) Influenza B (RT-PCR) Influenza Type B (PCR) M. pneumoniae (PCR) Parainfluenza 1 (PCR) Parainfluenza 2 (PCR) Parainfluenza 3 (PCR) Parainfluenza 4 (PCR) RSV (PCR) RSV RNA Qual (PCR) Entero/Rhino (PCR) SARS-CoV-2 RNA (RT-PCR) Blood Type Antibody Screen 06/07/23 06/07/23 06/08/23 21:04 21:04 00:12 WBC 18.5 H RBC 2.72 L Hgb 8.2 L Hct 26.9 L MCV 98.9 H MCH 30.1 MCHC 30.5 L RDW 14.9 Plt Count 297 MPV 10.2 Immature Gran % (Auto) 2.8 H Neut % (Auto) 77.7 H Lymph % (Auto) 14.5 L [place] % (Auto) 4.2 Eos % (Auto) 0.4 Baso % (Auto) 0.4 Lymph # (Auto) 2.7 [place] # (Auto) 0.8 Eos # (Auto) 0.1 Baso # (Auto) 0.1 Abs Immat Gran (auto) 0.51 H Absolute Neuts (auto) 14.4 H Absolute Nucleated RBC 0.000 Nucleated RBC % (auto) 0.0 Neutrophils % (Manual) Band Neutrophils % Lymphocytes % (Manual) Atypical Lymphs % (Man) Monocytes % (Manual) Eosinophils % (Manual) Metamyelocytes % Myelocytes % Promyelocytes % Abs Neuts (Manual) Lymphocytes # (Manual) Atyp Lymphs # (Manual) Monocytes # (Manual) Eosinophils # (Manual) Metamyelocytes # Myelocytes # Promyelocytes # Nucleated RBCs Smudge Cells Toxic Granulation Toxic Vacuolation Platelet Estimate Large Platelets Plt Morphology Comment RBC Morphology Polychromasia Hypochromasia Basophilic Stippling Spherocytes Tear Drop Cells Ovalocytes [place] Bodies [place] Cells Acanthocytes (Spur) Schistocytes PT INR aPTT Heparin Protocol D-Dimer High Sensitivty O2 Saturation ABG pH at Pt Temp ABG pCO2 at Pt Temp ABG pO2 at Pt Temp ABG HCO3 ABG Base Excess (Actual) VBG pH VBG pCO2 VBG pO2 VBG HCO3 VBG O2 Saturation VBG Base Excess Sodium 148 H Potassium 3.3 Chloride 109 H Carbon Dioxide 30 H Anion Gap 12 BUN 24 H Creatinine 0.74 Estim Creat Clear Calc 96.1 Estimated GFR > 60 POC Glucose 168 H Random Glucose 183 H Lactic Acid 1.2 Lactic Acid F/U @ 2Hr Calcium 8.2 L Phosphorus 2.9 Magnesium 2.1 Total Bilirubin 0.7 Direct Bilirubin AST 30 ALT 46 H Alkaline Phosphatase 76 Ammonia Troponin I High Sens 4.2 D B-Natriuretic Peptide 1062 H Total Protein 6.4 L Albumin 3.3 L Lipase 25-OH Vitamin D Total Procalcitonin TSH 1.95 Cancelled Urine Color Urine Appearance Urine pH Ur Specific [place] Urine Protein Urine Glucose (UA) Urine Ketones Urine Blood Urine Nitrite Ur Leukocyte Esterase Urine RBC Urine WBC Ur Squamous Epith Cells Urine Bacteria Hyaline Casts Nasal Screen MRSA (PCR) Nasal S. aureus Screen Nasal MRSA/S.aureus Interp Stool Occult Blood Stl C. cayetanensis PCR Stool Rotavirus A PCR Stl Adenov F 40/41 PCR Stool Astrovirus (PCR) Stool Campylobacter PCR Stool Cryptosporidium PCR Stl Sh Tox Pr E STEC PCR Stool E coli O157 PCR Stl Enterotoxigenic E PCR Stool EPEC (PCR) Stool EAEC (PCR) Stl E. histolytica PCR Stool Giardia Lamblia PCR Stl P. shigelloides PCR Stool Salmonella PCR Stool Sapovirus (PCR) Stl Shigella/EIEC PCR St Y.enterocolitica PCR Stool Vibrio (PCR) Stl Vibrio cholerae PCR Stl Norovirus GI/GII PCR Random Vancomycin Valproic Acid Carbamazepine Lamotrigine Clozapine Norclozapine Respiratory Panel Ashley Adenovirus (Rapid PCR) B.pert (TEM-PCR) B.parapertussis DNA PCR C. pneumoniae DNA (PCR) Coronavirus OC43 (PCR) Coronavirus HKU1 (PCR) Coronavirus 229E (PCR) Coronavirus NL63 (PCR) Hepatitis A IgM Ab Hep Bs Antigen Hepatitis C Ab (EIA) Human Metapneumovir PCR Influenza A (RT-PCR) Influenza Type A (PCR) Influenza B (RT-PCR) Influenza Type B (PCR) M. pneumoniae (PCR) Parainfluenza 1 (PCR) Parainfluenza 2 (PCR) Parainfluenza 3 (PCR) Parainfluenza 4 (PCR) RSV (PCR) RSV RNA Qual (PCR) Entero/Rhino (PCR) SARS-CoV-2 RNA (RT-PCR) Blood Type Antibody Screen 06/08/23 06/08/23 06/08/23 04:54 04:59 05:36 WBC 15.7 H RBC 2.56 L Hgb 7.9 L Hct 25.8 L MCV 100.8 H MCH 30.9 MCHC 30.6 L RDW 14.8 Plt Count 256 MPV 10.2 Immature Gran % (Auto) 2.2 H Neut % (Auto) 77.7 H Lymph % (Auto) 14.4 L [place] % (Auto) 4.4 Eos % (Auto) 1.0 Baso % (Auto) 0.3 Lymph # (Auto) 2.3 [place] # (Auto) 0.7 Eos # (Auto) 0.2 Baso # (Auto) 0.0 Abs Immat Gran (auto) 0.34 H Absolute Neuts (auto) 12.2 H Absolute Nucleated RBC 0.000 Nucleated RBC % (auto) 0.0 Neutrophils % (Manual) Band Neutrophils % Lymphocytes % (Manual) Atypical Lymphs % (Man) Monocytes % (Manual) Eosinophils % (Manual) Metamyelocytes % Myelocytes % Promyelocytes % Abs Neuts (Manual) Lymphocytes # (Manual) Atyp Lymphs # (Manual) Monocytes # (Manual) Eosinophils # (Manual) Metamyelocytes # Myelocytes # Promyelocytes # Nucleated RBCs Smudge Cells Toxic Granulation Toxic Vacuolation Platelet Estimate Large Platelets Plt Morphology Comment RBC Morphology Polychromasia Hypochromasia Basophilic Stippling Spherocytes Tear Drop Cells Ovalocytes [place] Bodies Jyoti Cells Acanthocytes (Spur) Schistocytes PT INR aPTT Heparin Protocol D-Dimer High Sensitivty O2 Saturation ABG pH at Pt Temp ABG pCO2 at Pt Temp ABG pO2 at Pt Temp ABG HCO3 ABG Base Excess (Actual) VBG pH 7.32 VBG pCO2 54 VBG pO2 49 VBG HCO3 28 H VBG O2 Saturation 75.0 VBG Base Excess 1.7 Sodium 148 H Potassium 3.3 Chloride 109 H Carbon Dioxide 24 Anion Gap 18 BUN 30 H Creatinine 0.82 Estim Creat Clear Calc 86.7 Estimated GFR > 60 POC Glucose Random Glucose 174 H Lactic Acid Lactic Acid F/U @ 2Hr Calcium 8.4 Phosphorus Magnesium Total Bilirubin 0.9 Direct Bilirubin AST 28 ALT 40 H Alkaline Phosphatase 66 Ammonia Troponin I High Sens 3.0 B-Natriuretic Peptide Total Protein 7.0 Albumin 4.2 Lipase 25-OH Vitamin D Total Procalcitonin TSH Urine Color Urine Appearance Urine pH Ur Specific [place] Urine Protein Urine Glucose (UA) Urine Ketones Urine Blood Urine Nitrite Ur Leukocyte Esterase Urine RBC Urine WBC Ur Squamous Epith Cells Urine Bacteria Hyaline Casts Nasal Screen MRSA (PCR) Nasal S. aureus Screen Nasal MRSA/S.aureus Interp Stool Occult Blood Stl C. cayetanensis PCR Stool Rotavirus A PCR Stl Adenov F PCR Stool Astrovirus (PCR) Stool Campylobacter PCR Stool Cryptosporidium PCR Stl Sh Tox Pr E STEC PCR Stool E coli O157 PCR Stl Enterotoxigenic E PCR Stool EPEC (PCR) Stool EAEC (PCR) Stl E. histolytica PCR Stool Giardia Lamblia PCR Stl P. shigelloides PCR Stool Salmonella PCR Stool Sapovirus (PCR) Stl Shigella/EIEC PCR St Y.enterocolitica PCR Stool Vibrio (PCR) Stl Vibrio cholerae PCR Stl Norovirus GI/GII PCR Random Vancomycin Valproic Acid Carbamazepine Lamotrigine Clozapine Norclozapine Respiratory Panel Ashley Adenovirus (Rapid PCR) B.pert (TEM-PCR) B.parapertussis DNA PCR C. pneumoniae DNA (PCR) Coronavirus OC43 (PCR) Coronavirus HKU1 (PCR) Coronavirus 229E (PCR) Coronavirus NL63 (PCR) Hepatitis A IgM Ab Hep Bs Antigen Hepatitis C Ab (EIA) Human Metapneumovir PCR Influenza A (RT-PCR) Influenza Type A (PCR) Influenza B (RT-PCR) Influenza Type B (PCR) M. pneumoniae (PCR) Parainfluenza 1 (PCR) Parainfluenza 2 (PCR) Parainfluenza 3 (PCR) Parainfluenza 4 (PCR) RSV (PCR) RSV RNA Qual (PCR) Entero/Rhino (PCR) SARS-CoV-2 RNA (RT-PCR) Blood Type Antibody Screen 06/08/23 06/08/23 06/08/23 08:22 08:23 08:26 WBC RBC Hgb Hct MCV MCH MCHC RDW Plt Count MPV Immature Gran % (Auto) Neut % (Auto) Lymph % (Auto) [place] % (Auto) Eos % (Auto) Baso % (Auto) Lymph # (Auto) [place] # (Auto) Eos # (Auto) Baso # (Auto) Abs Immat Gran (auto) Absolute Neuts (auto) Absolute Nucleated RBC Nucleated RBC % (auto) Neutrophils % (Manual) Band Neutrophils % Lymphocytes % (Manual) Atypical Lymphs % (Man) Monocytes % (Manual) Eosinophils % (Manual) Metamyelocytes % Myelocytes % Promyelocytes % Abs Neuts (Manual) Lymphocytes # (Manual) Atyp Lymphs # (Manual) Monocytes # (Manual) Eosinophils # (Manual) Metamyelocytes # Myelocytes # Promyelocytes # Nucleated RBCs Smudge Cells Toxic Granulation Toxic Vacuolation Platelet Estimate Large Platelets Plt Morphology Comment RBC Morphology Polychromasia Hypochromasia Basophilic Stippling Spherocytes Tear Drop Cells Ovalocytes [place] Bodies [place] Cells Acanthocytes (Spur) Schistocytes PT INR aPTT Heparin Protocol D-Dimer High Sensitivty O2 Saturation ABG pH at Pt Temp ABG pCO2 at Pt Temp ABG pO2 at Pt Temp ABG HCO3 ABG Base Excess (Actual) VBG pH 7.28 L VBG pCO2 51 VBG pO2 101 VBG HCO3 24 VBG O2 Saturation Not Reportable VBG Base Excess -2.0 Sodium Potassium Chloride Carbon Dioxide Anion Gap BUN Creatinine Estim Creat Clear Calc Estimated GFR POC Glucose Random Glucose Lactic Acid Lactic Acid F/U @ 2Hr Calcium Phosphorus Magnesium Total Bilirubin Direct Bilirubin AST ALT Alkaline Phosphatase Ammonia Troponin I High Sens B-Natriuretic Peptide Total Protein Albumin Lipase 25-OH Vitamin D Total Procalcitonin TSH 0.54 Urine Color Urine Appearance Urine pH Ur Specific [place] Urine Protein Urine Glucose (UA) Urine Ketones Urine Blood Urine Nitrite Ur Leukocyte Esterase Urine RBC Urine WBC Ur Squamous Epith Cells Urine Bacteria Hyaline Casts Nasal Screen MRSA (PCR) Nasal S. aureus Screen Nasal MRSA/S.aureus Interp Stool Occult Blood Stl C. cayetanensis PCR Stool Rotavirus A PCR Stl Adenov F 40/41 PCR Stool Astrovirus (PCR) Stool Campylobacter PCR Stool Cryptosporidium PCR Stl Sh Tox Pr E STEC PCR Stool E coli O157 PCR Stl Enterotoxigenic E PCR Stool EPEC (PCR) Stool EAEC (PCR) Stl E. histolytica PCR Stool Giardia Lamblia PCR Stl P. shigelloides PCR Stool Salmonella PCR Stool Sapovirus (PCR) Stl Shigella/EIEC PCR St Y.enterocolitica PCR Stool Vibrio (PCR) Stl Vibrio cholerae PCR Stl Norovirus GI/GII PCR Random Vancomycin Valproic Acid 22.6 L Carbamazepine Lamotrigine 5.5 Clozapine 211 Norclozapine 67 Respiratory Panel Ashley Adenovirus (Rapid PCR) B.pert (TEM-PCR) B.parapertussis DNA PCR C. pneumoniae DNA (PCR) Coronavirus OC43 (PCR) Coronavirus HKU1 (PCR) Coronavirus 229E (PCR) Coronavirus NL63 (PCR) Hepatitis A IgM Ab Hep Bs Antigen Hepatitis C Ab (EIA) Human Metapneumovir PCR Influenza A (RT-PCR) Influenza Type A (PCR) Influenza B (RT-PCR) Influenza Type B (PCR) M. pneumoniae (PCR) Parainfluenza 1 (PCR) Parainfluenza 2 (PCR) Parainfluenza 3 (PCR) Parainfluenza 4 (PCR) RSV (PCR) RSV RNA Qual (PCR) Entero/Rhino (PCR) SARS-CoV-2 RNA (RT-PCR) Blood Type Antibody Screen 06/08/23 06/08/23 06/08/23 12:44 14:02 14:28 WBC 18.0 H RBC 2.43 L Hgb 7.5 L Hct 24.4 L MCV 100.4 H MCH 30.9 MCHC 30.7 L RDW 15.1 Plt Count 284 MPV 10.4 Immature Gran % (Auto) 3.3 H Neut % (Auto) 84.6 H Lymph % (Auto) 7.7 L [place] % (Auto) 4.1 Eos % (Auto) 0.1 Baso % (Auto) 0.2 Lymph # (Auto) 1.4 [place] # (Auto) 0.7 Eos # (Auto) 0.0 Baso # (Auto) 0.0 Abs Immat Gran (auto) 0.59 H Absolute Neuts (auto) 15.2 H Absolute Nucleated RBC 0.020 H Nucleated RBC % (auto) 0.1 Neutrophils % (Manual) Band Neutrophils % Lymphocytes % (Manual) Atypical Lymphs % (Man) Monocytes % (Manual) Eosinophils % (Manual) Metamyelocytes % Myelocytes % Promyelocytes % Abs Neuts (Manual) Lymphocytes # (Manual) Atyp Lymphs # (Manual) Monocytes # (Manual) Eosinophils # (Manual) Metamyelocytes # Myelocytes # Promyelocytes # Nucleated RBCs Smudge Cells Toxic Granulation Toxic Vacuolation Platelet Estimate Large Platelets Plt Morphology Comment RBC Morphology Polychromasia Hypochromasia Basophilic Stippling Spherocytes Tear Drop Cells Ovalocytes [place] Bodies [place] Cells Acanthocytes (Spur) Schistocytes PT INR aPTT Heparin Protocol D-Dimer High Sensitivty O2 Saturation ABG pH at Pt Temp ABG pCO2 at Pt Temp ABG pO2 at Pt Temp ABG HCO3 ABG Base Excess (Actual) VBG pH 7.32 VBG pCO2 56 VBG pO2 58 VBG HCO3 29 H VBG O2 Saturation 84.0 VBG Base Excess 2.6 Sodium 150 H Potassium 3.8 Chloride 111 H Carbon Dioxide 27 Anion Gap 16 BUN 35 H Creatinine 1.01 Estim Creat Clear Calc 70.4 Estimated GFR 55 POC Glucose 226 H Random Glucose 228 H Lactic Acid Lactic Acid F/U @ 2Hr Calcium 9.1 D Phosphorus 2.9 Magnesium 2.2 Total Bilirubin 0.7 Direct Bilirubin AST 33 H ALT 42 H Alkaline Phosphatase 68 Ammonia Troponin I High Sens B-Natriuretic Peptide Total Protein 6.6 Albumin 3.8 Lipase 25-OH Vitamin D Total Procalcitonin TSH Urine Color Urine Appearance Urine pH Ur Specific [place] Urine Protein Urine Glucose (UA) Urine Ketones Urine Blood Urine Nitrite Ur Leukocyte Esterase Urine RBC Urine WBC Ur Squamous Epith Cells Urine Bacteria Hyaline Casts Nasal Screen MRSA (PCR) Nasal S. aureus Screen Nasal MRSA/S.aureus Interp Stool Occult Blood Stl C. cayetanensis PCR Stool Rotavirus A PCR Stl Adenov F 40/41 PCR Stool Astrovirus (PCR) Stool Campylobacter PCR Stool Cryptosporidium PCR Stl Sh Tox Pr E STEC PCR Stool E coli O157 PCR Stl Enterotoxigenic E PCR Stool EPEC (PCR) Stool EAEC (PCR) Stl E. histolytica PCR Stool Giardia Lamblia PCR Stl P. shigelloides PCR Stool Salmonella PCR Stool Sapovirus (PCR) Stl Shigella/EIEC PCR St Y.enterocolitica PCR Stool Vibrio (PCR) Stl Vibrio cholerae PCR Stl Norovirus GI/GII PCR Random Vancomycin Valproic Acid Carbamazepine Lamotrigine Clozapine Norclozapine Respiratory Panel Ashley Adenovirus (Rapid PCR) B.pert (TEM-PCR) B.parapertussis DNA PCR C. pneumoniae DNA (PCR) Coronavirus OC43 (PCR) Coronavirus HKU1 (PCR) Coronavirus 229E (PCR) Coronavirus NL63 (PCR) Hepatitis A IgM Ab Hep Bs Antigen Hepatitis C Ab (EIA) Human Metapneumovir PCR Influenza A (RT-PCR) Influenza Type A (PCR) Influenza B (RT-PCR) Influenza Type B (PCR) M. pneumoniae (PCR) Parainfluenza 1 (PCR) Parainfluenza 2 (PCR) Parainfluenza 3 (PCR) Parainfluenza 4 (PCR) RSV (PCR) RSV RNA Qual (PCR) Entero/Rhino (PCR) SARS-CoV-2 RNA (RT-PCR) Blood Type Antibody Screen 06/08/23 06/08/23 06/08/23 18:02 18:07 20:17 WBC RBC Hgb Hct MCV MCH MCHC RDW Plt Count MPV Immature Gran % (Auto) Neut % (Auto) Lymph % (Auto) [place] % (Auto) Eos % (Auto) Baso % (Auto) Lymph # (Auto) [place] # (Auto) Eos # (Auto) Baso # (Auto) Abs Immat Gran (auto) Absolute Neuts (auto) Absolute Nucleated RBC Nucleated RBC % (auto) Neutrophils % (Manual) Band Neutrophils % Lymphocytes % (Manual) Atypical Lymphs % (Man) Monocytes % (Manual) Eosinophils % (Manual) Metamyelocytes % Myelocytes % Promyelocytes % Abs Neuts (Manual) Lymphocytes # (Manual) Atyp Lymphs # (Manual) Monocytes # (Manual) Eosinophils # (Manual) Metamyelocytes # Myelocytes # Promyelocytes # Nucleated RBCs Smudge Cells Toxic Granulation Toxic Vacuolation Platelet Estimate Large Platelets Plt Morphology Comment RBC Morphology Polychromasia Hypochromasia Basophilic Stippling Spherocytes Tear Drop Cells Ovalocytes [place] Bodies [place] Cells Acanthocytes (Spur) Schistocytes PT INR aPTT Heparin Protocol D-Dimer High Sensitivty O2 Saturation ABG pH at Pt Temp ABG pCO2 at Pt Temp ABG pO2 at Pt Temp ABG HCO3 ABG Base Excess (Actual) VBG pH 7.57 H VBG pCO2 31 VBG pO2 157 VBG HCO3 29 H VBG O2 Saturation 99.0 VBG Base Excess 7.0 Sodium Potassium Chloride Carbon Dioxide Anion Gap BUN Creatinine Estim Creat Clear Calc Estimated GFR POC Glucose 145 H Random Glucose Lactic Acid Lactic Acid F/U @ 2Hr Calcium Phosphorus Magnesium Total Bilirubin Direct Bilirubin AST ALT Alkaline Phosphatase Ammonia Troponin I High Sens B-Natriuretic Peptide Total Protein Albumin Lipase 25-OH Vitamin D Total Procalcitonin TSH Urine Color Urine Appearance Urine pH Ur Specific [place] Urine Protein Urine Glucose (UA) Urine Ketones Urine Blood Urine Nitrite Ur Leukocyte Esterase Urine RBC Urine WBC Ur Squamous Epith Cells Urine Bacteria Hyaline Casts Nasal Screen MRSA (PCR) Nasal S. aureus Screen Nasal MRSA/S.aureus Interp Stool Occult Blood Stl C. cayetanensis PCR Stool Rotavirus A PCR Stl Adenov F 40/41 PCR Stool Astrovirus (PCR) Stool Campylobacter PCR Stool Cryptosporidium PCR Stl Sh Tox Pr E STEC PCR Stool E coli O157 PCR Stl Enterotoxigenic E PCR Stool EPEC (PCR) Stool EAEC (PCR) Stl E. histolytica PCR Stool Giardia Lamblia PCR Stl P. shigelloides PCR Stool Salmonella PCR Stool Sapovirus (PCR) Stl Shigella/EIEC PCR St Y.enterocolitica PCR Stool Vibrio (PCR) Stl Vibrio cholerae PCR Stl Norovirus GI/GII PCR Random Vancomycin 21.7 H Valproic Acid Carbamazepine Lamotrigine Clozapine Norclozapine Respiratory Panel Ashley Adenovirus (Rapid PCR) B.pert (TEM-PCR) B.parapertussis DNA PCR C. pneumoniae DNA (PCR) Coronavirus OC43 (PCR) Coronavirus HKU1 (PCR) Coronavirus 229E (PCR) Coronavirus NL63 (PCR) Hepatitis A IgM Ab Hep Bs Antigen Hepatitis C Ab (EIA) Human Metapneumovir PCR Influenza A (RT-PCR) Influenza Type A (PCR) Influenza B (RT-PCR) Influenza Type B (PCR) M. pneumoniae (PCR) Parainfluenza 1 (PCR) Parainfluenza 2 (PCR) Parainfluenza 3 (PCR) Parainfluenza 4 (PCR) RSV (PCR) RSV RNA Qual (PCR) Entero/Rhino (PCR) SARS-CoV-2 RNA (RT-PCR) Blood Type Antibody Screen 06/09/23 06/09/23 06/09/23 00:03 05:10 05:11 WBC 13.2 H RBC 2.34 L Hgb 7.3 L Hct 23.1 L MCV 98.7 H MCH 31.2 MCHC 31.6 RDW 15.2 Plt Count 302 MPV 10.7 Immature Gran % (Auto) 1.7 H Neut % (Auto) 76.9 H Lymph % (Auto) 14.3 L [place] % (Auto) 4.8 Eos % (Auto) 2.0 Baso % (Auto) 0.3 Lymph # (Auto) 1.9 [place] # (Auto) 0.6 Eos # (Auto) 0.3 Baso # (Auto) 0.0 Abs Immat Gran (auto) 0.23 H Absolute Neuts (auto) 10.1 H Absolute Nucleated RBC 0.000 Nucleated RBC % (auto) 0.0 Neutrophils % (Manual) Band Neutrophils % Lymphocytes % (Manual) Atypical Lymphs % (Man) Monocytes % (Manual) Eosinophils % (Manual) Metamyelocytes % Myelocytes % Promyelocytes % Abs Neuts (Manual) Lymphocytes # (Manual) Atyp Lymphs # (Manual) Monocytes # (Manual) Eosinophils # (Manual) Metamyelocytes # Myelocytes # Promyelocytes # Nucleated RBCs Smudge Cells Toxic Granulation Toxic Vacuolation Platelet Estimate Large Platelets Plt Morphology Comment RBC Morphology Polychromasia Hypochromasia Basophilic Stippling Spherocytes Tear Drop Cells Ovalocytes [place] Bodies Jyoti Cells Acanthocytes (Spur) Schistocytes PT INR aPTT Heparin Protocol D-Dimer High Sensitivty O2 Saturation ABG pH at Pt Temp ABG pCO2 at Pt Temp ABG pO2 at Pt Temp ABG HCO3 ABG Base Excess (Actual) VBG pH 7.53 H VBG pCO2 41 VBG pO2 43 VBG HCO3 35 H VBG O2 Saturation 76.0 VBG Base Excess 12.0 Sodium 153 H Potassium 3.1 L Chloride 111 H Carbon Dioxide 27 Anion Gap 18 BUN 30 H Creatinine 0.86 Estim Creat Clear Calc 86.7 Estimated GFR > 60 POC Glucose 139 H Random Glucose 156 H Lactic Acid Lactic Acid F/U @ 2Hr Calcium 9.0 Phosphorus 1.8 L Magnesium 2.1 Total Bilirubin Direct Bilirubin AST ALT Alkaline Phosphatase Ammonia Troponin I High Sens B-Natriuretic Peptide Total Protein Albumin 3.4 L Lipase 25-OH Vitamin D Total Procalcitonin TSH Urine Color Urine Appearance Urine pH Ur Specific [place] Urine Protein Urine Glucose (UA) Urine Ketones Urine Blood Urine Nitrite Ur Leukocyte Esterase Urine RBC Urine WBC Ur Squamous Epith Cells Urine Bacteria Hyaline Casts Nasal Screen MRSA (PCR) Nasal S. aureus Screen Nasal MRSA/S.aureus Interp Stool Occult Blood Stl C. cayetanensis PCR Stool Rotavirus A PCR Stl Adenov F 40/41 PCR Stool Astrovirus (PCR) Stool Campylobacter PCR Stool Cryptosporidium PCR Stl Sh Tox Pr E STEC PCR Stool E coli O157 PCR Stl Enterotoxigenic E PCR Stool EPEC (PCR) Stool EAEC (PCR) Stl E. histolytica PCR Stool Giardia Lamblia PCR Stl P. shigelloides PCR Stool Salmonella PCR Stool Sapovirus (PCR) Stl Shigella/EIEC PCR St Y.enterocolitica PCR Stool Vibrio (PCR) Stl Vibrio cholerae PCR Stl Norovirus GI/GII PCR Random Vancomycin Valproic Acid Carbamazepine Lamotrigine Clozapine Norclozapine Respiratory Panel Ashley Adenovirus (Rapid PCR) B.pert (TEM-PCR) B.parapertussis DNA PCR C. pneumoniae DNA (PCR) Coronavirus OC43 (PCR) Coronavirus HKU1 (PCR) Coronavirus 229E (PCR) Coronavirus NL63 (PCR) Hepatitis A IgM Ab Hep Bs Antigen Hepatitis C Ab (EIA) Human Metapneumovir PCR Influenza A (RT-PCR) Influenza Type A (PCR) Influenza B (RT-PCR) Influenza Type B (PCR) M. pneumoniae (PCR) Parainfluenza 1 (PCR) Parainfluenza 2 (PCR) Parainfluenza 3 (PCR) Parainfluenza 4 (PCR) RSV (PCR) RSV RNA Qual (PCR) Entero/Rhino (PCR) SARS-CoV-2 RNA (RT-PCR) Blood Type Antibody Screen 06/09/23 06/09/23 06/09/23 11:48 17:39 17:58 WBC RBC Hgb Hct MCV MCH MCHC RDW Plt Count MPV Immature Gran % (Auto) Neut % (Auto) Lymph % (Auto) [place] % (Auto) Eos % (Auto) Baso % (Auto) Lymph # (Auto) [place] # (Auto) Eos # (Auto) Baso # (Auto) Abs Immat Gran (auto) Absolute Neuts (auto) Absolute Nucleated RBC Nucleated RBC % (auto) Neutrophils % (Manual) Band Neutrophils % Lymphocytes % (Manual) Atypical Lymphs % (Man) Monocytes % (Manual) Eosinophils % (Manual) Metamyelocytes % Myelocytes % Promyelocytes % Abs Neuts (Manual) Lymphocytes # (Manual) Atyp Lymphs # (Manual) Monocytes # (Manual) Eosinophils # (Manual) Metamyelocytes # Myelocytes # Promyelocytes # Nucleated RBCs Smudge Cells Toxic Granulation Toxic Vacuolation Platelet Estimate Large Platelets Plt Morphology Comment RBC Morphology Polychromasia Hypochromasia Basophilic Stippling Spherocytes Tear Drop Cells Ovalocytes [place] Bodies Jyoti Cells Acanthocytes (Spur) Schistocytes PT INR aPTT Heparin Protocol D-Dimer High Sensitivty O2 Saturation ABG pH at Pt Temp ABG pCO2 at Pt Temp ABG pO2 at Pt Temp ABG HCO3 ABG Base Excess (Actual) VBG pH VBG pCO2 VBG pO2 VBG HCO3 VBG O2 Saturation VBG Base Excess Sodium 154 H Potassium 2.9 L* Chloride 108 Carbon Dioxide 31 H Anion Gap 18 BUN 27 H Creatinine 0.95 Estim Creat Clear Calc 78.5 Estimated GFR 59 POC Glucose 140 H 175 H Random Glucose 205 H Lactic Acid Lactic Acid F/U @ 2Hr Calcium 9.1 Phosphorus 2.4 L Magnesium 1.7 Total Bilirubin Direct Bilirubin AST ALT Alkaline Phosphatase Ammonia Troponin I High Sens B-Natriuretic Peptide Total Protein Albumin Lipase 25-OH Vitamin D Total Procalcitonin TSH Urine Color Urine Appearance Urine pH Ur Specific [place] Urine Protein Urine Glucose (UA) Urine Ketones Urine Blood Urine Nitrite Ur Leukocyte Esterase Urine RBC Urine WBC Ur Squamous Epith Cells Urine Bacteria Hyaline Casts Nasal Screen MRSA (PCR) Nasal S. aureus Screen Nasal MRSA/S.aureus Interp Stool Occult Blood Stl C. cayetanensis PCR Stool Rotavirus A PCR Stl Adenov F 40/41 PCR Stool Astrovirus (PCR) Stool Campylobacter PCR Stool Cryptosporidium PCR Stl Sh Tox Pr E STEC PCR Stool E coli O157 PCR Stl Enterotoxigenic E PCR Stool EPEC (PCR) Stool EAEC (PCR) Stl E. histolytica PCR Stool Giardia Lamblia PCR Stl P. shigelloides PCR Stool Salmonella PCR Stool Sapovirus (PCR) Stl Shigella/EIEC PCR St Y.enterocolitica PCR Stool Vibrio (PCR) Stl Vibrio cholerae PCR Stl Norovirus GI/GII PCR Random Vancomycin Valproic Acid Carbamazepine Lamotrigine Clozapine Norclozapine Respiratory Panel Ashley Adenovirus (Rapid PCR) B.pert (TEM-PCR) B.parapertussis DNA PCR C. pneumoniae DNA (PCR) Coronavirus OC43 (PCR) Coronavirus HKU1 (PCR) Coronavirus 229E (PCR) Coronavirus NL63 (PCR) Hepatitis A IgM Ab Hep Bs Antigen Hepatitis C Ab (EIA) Human Metapneumovir PCR Influenza A (RT-PCR) Influenza Type A (PCR) Influenza B (RT-PCR) Influenza Type B (PCR) M. pneumoniae (PCR) Parainfluenza 1 (PCR) Parainfluenza 2 (PCR) Parainfluenza 3 (PCR) Parainfluenza 4 (PCR) RSV (PCR) RSV RNA Qual (PCR) Entero/Rhino (PCR) SARS-CoV-2 RNA (RT-PCR) Blood Type Antibody Screen 06/09/23 06/09/23 06/09/23 18:06 21:07 23:36 WBC RBC Hgb Hct MCV MCH MCHC RDW Plt Count MPV Immature Gran % (Auto) Neut % (Auto) Lymph % (Auto) [place] % (Auto) Eos % (Auto) Baso % (Auto) Lymph # (Auto) [place] # (Auto) Eos # (Auto) Baso # (Auto) Abs Immat Gran (auto) Absolute Neuts (auto) Absolute Nucleated RBC Nucleated RBC % (auto) Neutrophils % (Manual) Band Neutrophils % Lymphocytes % (Manual) Atypical Lymphs % (Man) Monocytes % (Manual) Eosinophils % (Manual) Metamyelocytes % Myelocytes % Promyelocytes % Abs Neuts (Manual) Lymphocytes # (Manual) Atyp Lymphs # (Manual) Monocytes # (Manual) Eosinophils # (Manual) Metamyelocytes # Myelocytes # Promyelocytes # Nucleated RBCs Smudge Cells Toxic Granulation Toxic Vacuolation Platelet Estimate Large Platelets Plt Morphology Comment RBC Morphology Polychromasia Hypochromasia Basophilic Stippling Spherocytes Tear Drop Cells Ovalocytes [place] Bodies [place] Cells Acanthocytes (Spur) Schistocytes PT INR aPTT Heparin Protocol D-Dimer High Sensitivty O2 Saturation ABG pH at Pt Temp ABG pCO2 at Pt Temp ABG pO2 at Pt Temp ABG HCO3 ABG Base Excess (Actual) VBG pH 7.52 H VBG pCO2 43 VBG pO2 107 VBG HCO3 36 H VBG O2 Saturation TNP VBG Base Excess 12.4 Sodium Potassium Chloride Carbon Dioxide Anion Gap BUN Creatinine Estim Creat Clear Calc Estimated GFR POC Glucose 183 H Random Glucose Lactic Acid Lactic Acid F/U @ 2Hr Calcium Phosphorus Magnesium Total Bilirubin Direct Bilirubin AST ALT Alkaline Phosphatase Ammonia Troponin I High Sens B-Natriuretic Peptide Total Protein Albumin Lipase 25-OH Vitamin D Total Procalcitonin TSH Urine Color Urine Appearance Urine pH Ur Specific [place] Urine Protein Urine Glucose (UA) Urine Ketones Urine Blood Urine Nitrite Ur Leukocyte Esterase Urine RBC Urine WBC Ur Squamous Epith Cells Urine Bacteria Hyaline Casts Nasal Screen MRSA (PCR) Nasal S. aureus Screen Nasal MRSA/S.aureus Interp Stool Occult Blood Stl C. cayetanensis PCR Stool Rotavirus A PCR Stl Adenov F 40/41 PCR Stool Astrovirus (PCR) Stool Campylobacter PCR Stool Cryptosporidium PCR Stl Sh Tox Pr E STEC PCR Stool E coli O157 PCR Stl Enterotoxigenic E PCR Stool EPEC (PCR) Stool EAEC (PCR) Stl E. histolytica PCR Stool Giardia Lamblia PCR Stl P. shigelloides PCR Stool Salmonella PCR Stool Sapovirus (PCR) Stl Shigella/EIEC PCR St Y.enterocolitica PCR Stool Vibrio (PCR) Stl Vibrio cholerae PCR Stl Norovirus GI/GII PCR Random Vancomycin 17.2 Valproic Acid Carbamazepine Lamotrigine Clozapine Norclozapine Respiratory Panel Ashley Adenovirus (Rapid PCR) B.pert (TEM-PCR) B.parapertussis DNA PCR C. pneumoniae DNA (PCR) Coronavirus OC43 (PCR) Coronavirus HKU1 (PCR) Coronavirus 229E (PCR) Coronavirus NL63 (PCR) Hepatitis A IgM Ab Hep Bs Antigen Hepatitis C Ab (EIA) Human Metapneumovir PCR Influenza A (RT-PCR) Influenza Type A (PCR) Influenza B (RT-PCR) Influenza Type B (PCR) M. pneumoniae (PCR) Parainfluenza 1 (PCR) Parainfluenza 2 (PCR) Parainfluenza 3 (PCR) Parainfluenza 4 (PCR) RSV (PCR) RSV RNA Qual (PCR) Entero/Rhino (PCR) SARS-CoV-2 RNA (RT-PCR) Blood Type Antibody Screen 06/10/23 06/10/23 06/10/23 06:06 06:07 09:38 WBC 9.7 11.5 H RBC 2.70 L 2.86 L Hgb 8.2 L 8.8 L Hct 26.2 L 27.5 L MCV 97.0 96.2 MCH 30.4 30.8 MCHC 31.3 32.0 RDW 14.8 14.8 Plt Count 317 341 MPV 10.3 10.1 Immature Gran % (Auto) 1.3 H Neut % (Auto) 74.0 H Lymph % (Auto) 18.3 L [place] % (Auto) 4.4 Eos % (Auto) 1.5 Baso % (Auto) 0.5 Lymph # (Auto) 1.8 [place] # (Auto) 0.4 Eos # (Auto) 0.2 Baso # (Auto) 0.1 Abs Immat Gran (auto) 0.13 H Absolute Neuts (auto) 7.2 Absolute Nucleated RBC 0.000 0.020 H Nucleated RBC % (auto) 0.0 0.2 Neutrophils % (Manual) Band Neutrophils % Lymphocytes % (Manual) Atypical Lymphs % (Man) Monocytes % (Manual) Eosinophils % (Manual) Metamyelocytes % Myelocytes % Promyelocytes % Abs Neuts (Manual) Lymphocytes # (Manual) Atyp Lymphs # (Manual) Monocytes # (Manual) Eosinophils # (Manual) Metamyelocytes # Myelocytes # Promyelocytes # Nucleated RBCs Smudge Cells Toxic Granulation Toxic Vacuolation Platelet Estimate Large Platelets Plt Morphology Comment RBC Morphology Polychromasia Hypochromasia Basophilic Stippling Spherocytes Tear Drop Cells Ovalocytes [place] Bodies [place] Cells Acanthocytes (Spur) Schistocytes PT 14.0 H INR 1.2 H aPTT Heparin Protocol 27.9 L D-Dimer High Sensitivty O2 Saturation ABG pH at Pt Temp ABG pCO2 at Pt Temp ABG pO2 at Pt Temp ABG HCO3 ABG Base Excess (Actual) VBG pH 7.63 H* VBG pCO2 37 VBG pO2 150 VBG HCO3 39 H VBG O2 Saturation 99.0 VBG Base Excess 17.2 Sodium 152 H Potassium 3.1 L Chloride 107 Carbon Dioxide 31 H Anion Gap 17 BUN 20 H Creatinine 0.78 Estim Creat Clear Calc 94.0 Estimated GFR > 60 POC Glucose Random Glucose 192 H Lactic Acid Lactic Acid F/U @ 2Hr Calcium 9.0 Phosphorus 2.9 Magnesium 1.6 Total Bilirubin Direct Bilirubin AST ALT Alkaline Phosphatase Ammonia Troponin I High Sens B-Natriuretic Peptide Total Protein Albumin Lipase 25-OH Vitamin D Total Procalcitonin TSH Urine Color Urine Appearance Urine pH Ur Specific [place] Urine Protein Urine Glucose (UA) Urine Ketones Urine Blood Urine Nitrite Ur Leukocyte Esterase Urine RBC Urine WBC Ur Squamous Epith Cells Urine Bacteria Hyaline Casts Nasal Screen MRSA (PCR) Nasal S. aureus Screen Nasal MRSA/S.aureus Interp Stool Occult Blood Stl C. cayetanensis PCR Stool Rotavirus A PCR Stl Adenov F 40/41 PCR Stool Astrovirus (PCR) Stool Campylobacter PCR Stool Cryptosporidium PCR Stl Sh Tox Pr E STEC PCR Stool E coli O157 PCR Stl Enterotoxigenic E PCR Stool EPEC (PCR) Stool EAEC (PCR) Stl E. histolytica PCR Stool Giardia Lamblia PCR Stl P. shigelloides PCR Stool Salmonella PCR Stool Sapovirus (PCR) Stl Shigella/EIEC PCR St Y.enterocolitica PCR Stool Vibrio (PCR) Stl Vibrio cholerae PCR Stl Norovirus GI/GII PCR Random Vancomycin Valproic Acid Carbamazepine Lamotrigine Clozapine Norclozapine Respiratory Panel Ashley Adenovirus (Rapid PCR) B.pert (TEM-PCR) B.parapertussis DNA PCR C. pneumoniae DNA (PCR) Coronavirus OC43 (PCR) Coronavirus HKU1 (PCR) Coronavirus 229E (PCR) Coronavirus NL63 (PCR) Hepatitis A IgM Ab Hep Bs Antigen Hepatitis C Ab (EIA) Human Metapneumovir PCR Influenza A (RT-PCR) Influenza Type A (PCR) Influenza B (RT-PCR) Influenza Type B (PCR) M. pneumoniae (PCR) Parainfluenza 1 (PCR) Parainfluenza 2 (PCR) Parainfluenza 3 (PCR) Parainfluenza 4 (PCR) RSV (PCR) RSV RNA Qual (PCR) Entero/Rhino (PCR) SARS-CoV-2 RNA (RT-PCR) Blood Type Antibody Screen 06/10/23 06/10/23 06/10/23 12:11 16:05 18:06 WBC RBC Hgb Hct MCV MCH MCHC RDW Plt Count MPV Immature Gran % (Auto) Neut % (Auto) Lymph % (Auto) [place] % (Auto) Eos % (Auto) Baso % (Auto) Lymph # (Auto) [place] # (Auto) Eos # (Auto) Baso # (Auto) Abs Immat Gran (auto) Absolute Neuts (auto) Absolute Nucleated RBC Nucleated RBC % (auto) Neutrophils % (Manual) Band Neutrophils % Lymphocytes % (Manual) Atypical Lymphs % (Man) Monocytes % (Manual) Eosinophils % (Manual) Metamyelocytes % Myelocytes % Promyelocytes % Abs Neuts (Manual) Lymphocytes # (Manual) Atyp Lymphs # (Manual) Monocytes # (Manual) Eosinophils # (Manual) Metamyelocytes # Myelocytes # Promyelocytes # Nucleated RBCs Smudge Cells Toxic Granulation Toxic Vacuolation Platelet Estimate Large Platelets Plt Morphology Comment RBC Morphology Polychromasia Hypochromasia Basophilic Stippling Spherocytes Tear Drop Cells Ovalocytes [place] Bodies [place] Cells Acanthocytes (Spur) Schistocytes PT INR aPTT Heparin Protocol 33.0 L D-Dimer High Sensitivty O2 Saturation ABG pH at Pt Temp ABG pCO2 at Pt Temp ABG pO2 at Pt Temp ABG HCO3 ABG Base Excess (Actual) VBG pH VBG pCO2 VBG pO2 VBG HCO3 VBG O2 Saturation VBG Base Excess Sodium 153 H Potassium 3.1 L Chloride 104 Carbon Dioxide 35 H Anion Gap 17 BUN 20 H Creatinine 0.87 Estim Creat Clear Calc 84.2 Estimated GFR > 60 POC Glucose 214 H Random Glucose 189 H Lactic Acid Lactic Acid F/U @ 2Hr Calcium 8.5 Phosphorus 2.8 Magnesium 1.5 L Total Bilirubin Direct Bilirubin AST ALT Alkaline Phosphatase Ammonia Troponin I High Sens B-Natriuretic Peptide Total Protein Albumin Lipase 25-OH Vitamin D Total Procalcitonin TSH Urine Color Urine Appearance Urine pH Ur Specific [place] Urine Protein Urine Glucose (UA) Urine Ketones Urine Blood Urine Nitrite Ur Leukocyte Esterase Urine RBC Urine WBC Ur Squamous Epith Cells Urine Bacteria Hyaline Casts Nasal Screen MRSA (PCR) Nasal S. aureus Screen Nasal MRSA/S.aureus Interp Stool Occult Blood Stl C. cayetanensis PCR Stool Rotavirus A PCR Stl Adenov F 40/41 PCR Stool Astrovirus (PCR) Stool Campylobacter PCR Stool Cryptosporidium PCR Stl Sh Tox Pr E STEC PCR Stool E coli O157 PCR Stl Enterotoxigenic E PCR Stool EPEC (PCR) Stool EAEC (PCR) Stl E. histolytica PCR Stool Giardia Lamblia PCR Stl P. shigelloides PCR Stool Salmonella PCR Stool Sapovirus (PCR) Stl Shigella/EIEC PCR St Y.enterocolitica PCR Stool Vibrio (PCR) Stl Vibrio cholerae PCR Stl Norovirus GI/GII PCR Random Vancomycin Valproic Acid Carbamazepine Lamotrigine Clozapine Norclozapine Respiratory Panel Ashley Adenovirus (Rapid PCR) B.pert (TEM-PCR) B.parapertussis DNA PCR C. pneumoniae DNA (PCR) Coronavirus OC43 (PCR) Coronavirus HKU1 (PCR) Coronavirus 229E (PCR) Coronavirus NL63 (PCR) Hepatitis A IgM Ab Hep Bs Antigen Hepatitis C Ab (EIA) Human Metapneumovir PCR Influenza A (RT-PCR) Influenza Type A (PCR) Influenza B (RT-PCR) Influenza Type B (PCR) M. pneumoniae (PCR) Parainfluenza 1 (PCR) Parainfluenza 2 (PCR) Parainfluenza 3 (PCR) Parainfluenza 4 (PCR) RSV (PCR) RSV RNA Qual (PCR) Entero/Rhino (PCR) SARS-CoV-2 RNA (RT-PCR) Blood Type Antibody Screen 06/10/23 06/10/23 06/10/23 18:18 21:00 21:41 WBC RBC Hgb Hct MCV MCH MCHC RDW Plt Count MPV Immature Gran % (Auto) Neut % (Auto) Lymph % (Auto) [place] % (Auto) Eos % (Auto) Baso % (Auto) Lymph # (Auto) [place] # (Auto) Eos # (Auto) Baso # (Auto) Abs Immat Gran (auto) Absolute Neuts (auto) Absolute Nucleated RBC Nucleated RBC % (auto) Neutrophils % (Manual) Band Neutrophils % Lymphocytes % (Manual) Atypical Lymphs % (Man) Monocytes % (Manual) Eosinophils % (Manual) Metamyelocytes % Myelocytes % Promyelocytes % Abs Neuts (Manual) Lymphocytes # (Manual) Atyp Lymphs # (Manual) Monocytes # (Manual) Eosinophils # (Manual) Metamyelocytes # Myelocytes # Promyelocytes # Nucleated RBCs Smudge Cells Toxic Granulation Toxic Vacuolation Platelet Estimate Large Platelets Plt Morphology Comment RBC Morphology Polychromasia Hypochromasia Basophilic Stippling Spherocytes Tear Drop Cells Ovalocytes [place] Bodies Jyoti Cells Acanthocytes (Spur) Schistocytes PT INR aPTT Heparin Protocol D-Dimer High Sensitivty O2 Saturation ABG pH at Pt Temp ABG pCO2 at Pt Temp ABG pO2 at Pt Temp ABG HCO3 ABG Base Excess (Actual) VBG pH 7.58 H VBG pCO2 47 VBG pO2 109 VBG HCO3 44 H VBG O2 Saturation 100.0 VBG Base Excess 20.9 Sodium Potassium Chloride Carbon Dioxide Anion Gap BUN Creatinine Estim Creat Clear Calc Estimated GFR POC Glucose 192 H Random Glucose Lactic Acid Lactic Acid F/U @ 2Hr Calcium Phosphorus Magnesium Total Bilirubin Direct Bilirubin AST ALT Alkaline Phosphatase Ammonia Troponin I High Sens B-Natriuretic Peptide Total Protein Albumin Lipase 25-OH Vitamin D Total Procalcitonin TSH Urine Color Urine Appearance Urine pH Ur Specific [place] Urine Protein Urine Glucose (UA) Urine Ketones Urine Blood Urine Nitrite Ur Leukocyte Esterase Urine RBC Urine WBC Ur Squamous Epith Cells Urine Bacteria Hyaline Casts Nasal Screen MRSA (PCR) Nasal S. aureus Screen Nasal MRSA/S.aureus Interp Stool Occult Blood Stl C. cayetanensis PCR Stool Rotavirus A PCR Stl Adenov F 40/41 PCR Stool Astrovirus (PCR) Stool Campylobacter PCR Stool Cryptosporidium PCR Stl Sh Tox Pr E STEC PCR Stool E coli O157 PCR Stl Enterotoxigenic E PCR Stool EPEC (PCR) Stool EAEC (PCR) Stl E. histolytica PCR Stool Giardia Lamblia PCR Stl P. shigelloides PCR Stool Salmonella PCR Stool Sapovirus (PCR) Stl Shigella/EIEC PCR St Y.enterocolitica PCR Stool Vibrio (PCR) Stl Vibrio cholerae PCR Stl Norovirus GI/GII PCR Random Vancomycin 14.6 L Valproic Acid Carbamazepine Lamotrigine Clozapine Norclozapine Respiratory Panel [place] Adenovirus (Rapid PCR) B.pert (TEM-PCR) B.parapertussis DNA PCR C. pneumoniae DNA (PCR) Coronavirus OC43 (PCR) Coronavirus HKU1 (PCR) Coronavirus 229E (PCR) Coronavirus NL63 (PCR) Hepatitis A IgM Ab Hep Bs Antigen Hepatitis C Ab (EIA) Human Metapneumovir PCR Influenza A (RT-PCR) Influenza Type A (PCR) Influenza B (RT-PCR) Influenza Type B (PCR) M. pneumoniae (PCR) Parainfluenza 1 (PCR) Parainfluenza 2 (PCR) Parainfluenza 3 (PCR) Parainfluenza 4 (PCR) RSV (PCR) RSV RNA Qual (PCR) Entero/Rhino (PCR) SARS-CoV-2 RNA (RT-PCR) Blood Type Antibody Screen 06/10/23 06/10/23 06/11/23 22:31 23:47 05:49 WBC 11.7 H RBC 2.70 L Hgb 8.2 L Hct 26.6 L MCV 98.5 H MCH 30.4 MCHC 30.8 L RDW 14.9 Plt Count 296 MPV 10.0 Immature Gran % (Auto) 1.3 H Neut % (Auto) 71.9 Lymph % (Auto) 19.5 L [place] % (Auto) 4.1 Eos % (Auto) 2.7 Baso % (Auto) 0.5 Lymph # (Auto) 2.3 [place] # (Auto) 0.5 Eos # (Auto) 0.3 Baso # (Auto) 0.1 Abs Immat Gran (auto) 0.15 H Absolute Neuts (auto) 8.4 H Absolute Nucleated RBC 0.020 H Nucleated RBC % (auto) 0.2 Neutrophils % (Manual) Band Neutrophils % Lymphocytes % (Manual) Atypical Lymphs % (Man) Monocytes % (Manual) Eosinophils % (Manual) Metamyelocytes % Myelocytes % Promyelocytes % Abs Neuts (Manual) Lymphocytes # (Manual) Atyp Lymphs # (Manual) Monocytes # (Manual) Eosinophils # (Manual) Metamyelocytes # Myelocytes # Promyelocytes # Nucleated RBCs Smudge Cells Toxic Granulation Toxic Vacuolation Platelet Estimate Large Platelets Plt Morphology Comment RBC Morphology Polychromasia Hypochromasia Basophilic Stippling Spherocytes Tear Drop Cells Ovalocytes [place] Bodies Jyoti Cells Acanthocytes (Spur) Schistocytes PT 14.7 H INR 1.2 H aPTT Heparin Protocol 50.1 L D 56.4 D-Dimer High Sensitivty O2 Saturation ABG pH at Pt Temp ABG pCO2 at Pt Temp ABG pO2 at Pt Temp ABG HCO3 ABG Base Excess (Actual) VBG pH VBG pCO2 VBG pO2 VBG HCO3 VBG O2 Saturation VBG Base Excess Sodium 148 H Potassium 3.1 L Chloride 104 Carbon Dioxide 32 H Anion Gap 15 BUN 20 H Creatinine 0.86 Estim Creat Clear Calc 85.3 Estimated GFR > 60 POC Glucose 172 H Random Glucose 193 H Lactic Acid Lactic Acid F/U @ 2Hr Calcium 8.4 Phosphorus 2.9 Magnesium 1.9 Total Bilirubin Direct Bilirubin AST ALT Alkaline Phosphatase Ammonia Troponin I High Sens B-Natriuretic Peptide Total Protein Albumin Lipase 25-OH Vitamin D Total Procalcitonin TSH Urine Color Urine Appearance Urine pH Ur Specific [place] Urine Protein Urine Glucose (UA) Urine Ketones Urine Blood Urine Nitrite Ur Leukocyte Esterase Urine RBC Urine WBC Ur Squamous Epith Cells Urine Bacteria Hyaline Casts Nasal Screen MRSA (PCR) Nasal S. aureus Screen Nasal MRSA/S.aureus Interp Stool Occult Blood Stl C. cayetanensis PCR Stool Rotavirus A PCR Stl Adenov F 40/41 PCR Stool Astrovirus (PCR) Stool Campylobacter PCR Stool Cryptosporidium PCR Stl Sh Tox Pr E STEC PCR Stool E coli O157 PCR Stl Enterotoxigenic E PCR Stool EPEC (PCR) Stool EAEC (PCR) Stl E. histolytica PCR Stool Giardia Lamblia PCR Stl P. shigelloides PCR Stool Salmonella PCR Stool Sapovirus (PCR) Stl Shigella/EIEC PCR St Y.enterocolitica PCR Stool Vibrio (PCR) Stl Vibrio cholerae PCR Stl Norovirus GI/GII PCR Random Vancomycin Valproic Acid Carbamazepine Lamotrigine Clozapine Norclozapine Respiratory Panel Ashley Adenovirus (Rapid PCR) B.pert (TEM-PCR) B.parapertussis DNA PCR C. pneumoniae DNA (PCR) Coronavirus OC43 (PCR) Coronavirus HKU1 (PCR) Coronavirus 229E (PCR) Coronavirus NL63 (PCR) Hepatitis A IgM Ab Hep Bs Antigen Hepatitis C Ab (EIA) Human Metapneumovir PCR Influenza A (RT-PCR) Influenza Type A (PCR) Influenza B (RT-PCR) Influenza Type B (PCR) M. pneumoniae (PCR) Parainfluenza 1 (PCR) Parainfluenza 2 (PCR) Parainfluenza 3 (PCR) Parainfluenza 4 (PCR) RSV (PCR) RSV RNA Qual (PCR) Entero/Rhino (PCR) SARS-CoV-2 RNA (RT-PCR) Blood Type Antibody Screen 06/11/23 06/11/23 06/11/23 05:56 05:58 11:45 WBC RBC Hgb Hct MCV MCH MCHC RDW Plt Count MPV Immature Gran % (Auto) Neut % (Auto) Lymph % (Auto) [place] % (Auto) Eos % (Auto) Baso % (Auto) Lymph # (Auto) [place] # (Auto) Eos # (Auto) Baso # (Auto) Abs Immat Gran (auto) Absolute Neuts (auto) Absolute Nucleated RBC Nucleated RBC % (auto) Neutrophils % (Manual) Band Neutrophils % Lymphocytes % (Manual) Atypical Lymphs % (Man) Monocytes % (Manual) Eosinophils % (Manual) Metamyelocytes % Myelocytes % Promyelocytes % Abs Neuts (Manual) Lymphocytes # (Manual) Atyp Lymphs # (Manual) Monocytes # (Manual) Eosinophils # (Manual) Metamyelocytes # Myelocytes # Promyelocytes # Nucleated RBCs Smudge Cells Toxic Granulation Toxic Vacuolation Platelet Estimate Large Platelets Plt Morphology Comment RBC Morphology Polychromasia Hypochromasia Basophilic Stippling Spherocytes Tear Drop Cells Ovalocytes [place] Bodies [place] Cells Acanthocytes (Spur) Schistocytes PT INR aPTT Heparin Protocol 55.3 D-Dimer High Sensitivty O2 Saturation ABG pH at Pt Temp ABG pCO2 at Pt Temp ABG pO2 at Pt Temp ABG HCO3 ABG Base Excess (Actual) VBG pH 7.57 H VBG pCO2 40 VBG pO2 202 VBG HCO3 37 H VBG O2 Saturation 99.0 VBG Base Excess 14.2 Sodium Potassium Chloride Carbon Dioxide Anion Gap BUN Creatinine Estim Creat Clear Calc Estimated GFR POC Glucose 175 H Random Glucose Lactic Acid Lactic Acid F/U @ 2Hr Calcium Phosphorus Magnesium Total Bilirubin Direct Bilirubin AST ALT Alkaline Phosphatase Ammonia Troponin I High Sens B-Natriuretic Peptide Total Protein Albumin Lipase 25-OH Vitamin D Total Procalcitonin TSH Urine Color Urine Appearance Urine pH Ur Specific [place] Urine Protein Urine Glucose (UA) Urine Ketones Urine Blood Urine Nitrite Ur Leukocyte Esterase Urine RBC Urine WBC Ur Squamous Epith Cells Urine Bacteria Hyaline Casts Nasal Screen MRSA (PCR) Nasal S. aureus Screen Nasal MRSA/S.aureus Interp Stool Occult Blood Stl C. cayetanensis PCR Stool Rotavirus A PCR Stl Adenov F 40/41 PCR Stool Astrovirus (PCR) Stool Campylobacter PCR Stool Cryptosporidium PCR Stl Sh Tox Pr E STEC PCR Stool E coli O157 PCR Stl Enterotoxigenic E PCR Stool EPEC (PCR) Stool EAEC (PCR) Stl E. histolytica PCR Stool Giardia Lamblia PCR Stl P. shigelloides PCR Stool Salmonella PCR Stool Sapovirus (PCR) Stl Shigella/EIEC PCR St Y.enterocolitica PCR Stool Vibrio (PCR) Stl Vibrio cholerae PCR Stl Norovirus GI/GII PCR Random Vancomycin Valproic Acid Carbamazepine Lamotrigine Clozapine Norclozapine Respiratory Panel Ashley Adenovirus (Rapid PCR) B.pert (TEM-PCR) B.parapertussis DNA PCR C. pneumoniae DNA (PCR) Coronavirus OC43 (PCR) Coronavirus HKU1 (PCR) Coronavirus 229E (PCR) Coronavirus NL63 (PCR) Hepatitis A IgM Ab Hep Bs Antigen Hepatitis C Ab (EIA) Human Metapneumovir PCR Influenza A (RT-PCR) Influenza Type A (PCR) Influenza B (RT-PCR) Influenza Type B (PCR) M. pneumoniae (PCR) Parainfluenza 1 (PCR) Parainfluenza 2 (PCR) Parainfluenza 3 (PCR) Parainfluenza 4 (PCR) RSV (PCR) RSV RNA Qual (PCR) Entero/Rhino (PCR) SARS-CoV-2 RNA (RT-PCR) Blood Type Antibody Screen 06/11/23 06/11/23 06/11/23 12:28 17:56 18:00 WBC RBC Hgb Hct MCV MCH MCHC RDW Plt Count MPV Immature Gran % (Auto) Neut % (Auto) Lymph % (Auto) [place] % (Auto) Eos % (Auto) Baso % (Auto) Lymph # (Auto) [place] # (Auto) Eos # (Auto) Baso # (Auto) Abs Immat Gran (auto) Absolute Neuts (auto) Absolute Nucleated RBC Nucleated RBC % (auto) Neutrophils % (Manual) Band Neutrophils % Lymphocytes % (Manual) Atypical Lymphs % (Man) Monocytes % (Manual) Eosinophils % (Manual) Metamyelocytes % Myelocytes % Promyelocytes % Abs Neuts (Manual) Lymphocytes # (Manual) Atyp Lymphs # (Manual) Monocytes # (Manual) Eosinophils # (Manual) Metamyelocytes # Myelocytes # Promyelocytes # Nucleated RBCs Smudge Cells Toxic Granulation Toxic Vacuolation Platelet Estimate Large Platelets Plt Morphology Comment RBC Morphology Polychromasia Hypochromasia Basophilic Stippling Spherocytes Tear Drop Cells Ovalocytes [place] Bodies [place] Cells Acanthocytes (Spur) Schistocytes PT INR aPTT Heparin Protocol D-Dimer High Sensitivty O2 Saturation ABG pH at Pt Temp ABG pCO2 at Pt Temp ABG pO2 at Pt Temp ABG HCO3 ABG Base Excess (Actual) VBG pH VBG pCO2 VBG pO2 VBG HCO3 VBG O2 Saturation VBG Base Excess Sodium 147 H Potassium 3.4 Chloride 105 Carbon Dioxide 30 H Anion Gap 15 BUN 20 H Creatinine 0.82 Estim Creat Clear Calc 87.6 Estimated GFR > 60 POC Glucose 161 H 154 H Random Glucose 158 H Lactic Acid Lactic Acid F/U @ 2Hr Calcium 8.2 L Phosphorus 3.0 Magnesium 1.9 Total Bilirubin Direct Bilirubin AST ALT Alkaline Phosphatase Ammonia Troponin I High Sens B-Natriuretic Peptide Total Protein Albumin Lipase 25-OH Vitamin D Total Procalcitonin TSH Urine Color Urine Appearance Urine pH Ur Specific [place] Urine Protein Urine Glucose (UA) Urine Ketones Urine Blood Urine Nitrite Ur Leukocyte Esterase Urine RBC Urine WBC Ur Squamous Epith Cells Urine Bacteria Hyaline Casts Nasal Screen MRSA (PCR) Nasal S. aureus Screen Nasal MRSA/S.aureus Interp Stool Occult Blood Stl C. cayetanensis PCR Stool Rotavirus A PCR Stl Adenov F 40/41 PCR Stool Astrovirus (PCR) Stool Campylobacter PCR Stool Cryptosporidium PCR Stl Sh Tox Pr E STEC PCR Stool E coli O157 PCR Stl Enterotoxigenic E PCR Stool EPEC (PCR) Stool EAEC (PCR) Stl E. histolytica PCR Stool Giardia Lamblia PCR Stl P. shigelloides PCR Stool Salmonella PCR Stool Sapovirus (PCR) Stl Shigella/EIEC PCR St Y.enterocolitica PCR Stool Vibrio (PCR) Stl Vibrio cholerae PCR Stl Norovirus GI/GII PCR Random Vancomycin Valproic Acid Carbamazepine Lamotrigine Clozapine Norclozapine Respiratory Panel Ashley Adenovirus (Rapid PCR) B.pert (TEM-PCR) B.parapertussis DNA PCR C. pneumoniae DNA (PCR) Coronavirus OC43 (PCR) Coronavirus HKU1 (PCR) Coronavirus 229E (PCR) Coronavirus NL63 (PCR) Hepatitis A IgM Ab Hep Bs Antigen Hepatitis C Ab (EIA) Human Metapneumovir PCR Influenza A (RT-PCR) Influenza Type A (PCR) Influenza B (RT-PCR) Influenza Type B (PCR) M. pneumoniae (PCR) Parainfluenza 1 (PCR) Parainfluenza 2 (PCR) Parainfluenza 3 (PCR) Parainfluenza 4 (PCR) RSV (PCR) RSV RNA Qual (PCR) Entero/Rhino (PCR) SARS-CoV-2 RNA (RT-PCR) Blood Type Antibody Screen 06/11/23 06/11/23 06/12/23 20:58 23:10 04:51 WBC 10.7 RBC 2.45 L Hgb 7.5 L Hct 24.4 L MCV 99.6 H MCH 30.6 MCHC 30.7 L RDW 14.7 Plt Count 268 MPV 9.3 L Immature Gran % (Auto) 1.1 H Neut % (Auto) 64.6 Lymph % (Auto) 25.3 [place] % (Auto) 3.5 Eos % (Auto) 4.8 H Baso % (Auto) 0.7 Lymph # (Auto) 2.7 [place] # (Auto) 0.4 Eos # (Auto) 0.5 H Baso # (Auto) 0.1 Abs Immat Gran (auto) 0.12 H Absolute Neuts (auto) 6.9 Absolute Nucleated RBC 0.020 H Nucleated RBC % (auto) 0.2 Neutrophils % (Manual) Band Neutrophils % Lymphocytes % (Manual) Atypical Lymphs % (Man) Monocytes % (Manual) Eosinophils % (Manual) Metamyelocytes % Myelocytes % Promyelocytes % Abs Neuts (Manual) Lymphocytes # (Manual) Atyp Lymphs # (Manual) Monocytes # (Manual) Eosinophils # (Manual) Metamyelocytes # Myelocytes # Promyelocytes # Nucleated RBCs Smudge Cells Toxic Granulation Toxic Vacuolation Platelet Estimate Large Platelets Plt Morphology Comment RBC Morphology Polychromasia Hypochromasia Basophilic Stippling Spherocytes Tear Drop Cells Ovalocytes [place] Bodies [place] Cells Acanthocytes (Spur) Schistocytes PT INR aPTT Heparin Protocol D-Dimer High Sensitivty O2 Saturation ABG pH at Pt Temp ABG pCO2 at Pt Temp ABG pO2 at Pt Temp ABG HCO3 ABG Base Excess (Actual) VBG pH VBG pCO2 VBG pO2 VBG HCO3 VBG O2 Saturation VBG Base Excess Sodium 145 Potassium 3.2 L Chloride 105 Carbon Dioxide 30 H Anion Gap 13 BUN 21 H Creatinine 0.87 0.84 Estim Creat Clear Calc 82.6 84.5 Estimated GFR > 60 > 60 POC Glucose 162 H Random Glucose 143 H Lactic Acid Lactic Acid F/U @ 2Hr Calcium 8.3 L Phosphorus 3.2 Magnesium 1.9 Total Bilirubin Direct Bilirubin AST ALT Alkaline Phosphatase Ammonia Troponin I High Sens B-Natriuretic Peptide Total Protein Albumin Lipase 25-OH Vitamin D Total Procalcitonin TSH Urine Color Urine Appearance Urine pH Ur Specific [place] Urine Protein Urine Glucose (UA) Urine Ketones Urine Blood Urine Nitrite Ur Leukocyte Esterase Urine RBC Urine WBC Ur Squamous Epith Cells Urine Bacteria Hyaline Casts Nasal Screen MRSA (PCR) Nasal S. aureus Screen Nasal MRSA/S.aureus Interp Stool Occult Blood Stl C. cayetanensis PCR Stool Rotavirus A PCR Stl Adenov F 40/41 PCR Stool Astrovirus (PCR) Stool Campylobacter PCR Stool Cryptosporidium PCR Stl Sh Tox Pr E STEC PCR Stool E coli O157 PCR Stl Enterotoxigenic E PCR Stool EPEC (PCR) Stool EAEC (PCR) Stl E. histolytica PCR Stool Giardia Lamblia PCR Stl P. shigelloides PCR Stool Salmonella PCR Stool Sapovirus (PCR) Stl Shigella/EIEC PCR St Y.enterocolitica PCR Stool Vibrio (PCR) Stl Vibrio cholerae PCR Stl Norovirus GI/GII PCR Random Vancomycin 16.0 Valproic Acid Carbamazepine Lamotrigine Clozapine Norclozapine Respiratory Panel Ashley Adenovirus (Rapid PCR) B.pert (TEM-PCR) B.parapertussis DNA PCR C. pneumoniae DNA (PCR) Coronavirus OC43 (PCR) Coronavirus HKU1 (PCR) Coronavirus 229E (PCR) Coronavirus NL63 (PCR) Hepatitis A IgM Ab Hep Bs Antigen Hepatitis C Ab (EIA) Human Metapneumovir PCR Influenza A (RT-PCR) Influenza Type A (PCR) Influenza B (RT-PCR) Influenza Type B (PCR) M. pneumoniae (PCR) Parainfluenza 1 (PCR) Parainfluenza 2 (PCR) Parainfluenza 3 (PCR) Parainfluenza 4 (PCR) RSV (PCR) RSV RNA Qual (PCR) Entero/Rhino (PCR) SARS-CoV-2 RNA (RT-PCR) Blood Type Antibody Screen 06/12/23 06/12/23 06/12/23 06:10 09:38 10:10 WBC RBC Hgb Hct MCV MCH MCHC RDW Plt Count MPV Immature Gran % (Auto) Neut % (Auto) Lymph % (Auto) [place] % (Auto) Eos % (Auto) Baso % (Auto) Lymph # (Auto) [place] # (Auto) Eos # (Auto) Baso # (Auto) Abs Immat Gran (auto) Absolute Neuts (auto) Absolute Nucleated RBC Nucleated RBC % (auto) Neutrophils % (Manual) Band Neutrophils % Lymphocytes % (Manual) Atypical Lymphs % (Man) Monocytes % (Manual) Eosinophils % (Manual) Metamyelocytes % Myelocytes % Promyelocytes % Abs Neuts (Manual) Lymphocytes # (Manual) Atyp Lymphs # (Manual) Monocytes # (Manual) Eosinophils # (Manual) Metamyelocytes # Myelocytes # Promyelocytes # Nucleated RBCs Smudge Cells Toxic Granulation Toxic Vacuolation Platelet Estimate Large Platelets Plt Morphology Comment RBC Morphology Polychromasia Hypochromasia Basophilic Stippling Spherocytes Tear Drop Cells Ovalocytes [place] Bodies Jyoti Cells Acanthocytes (Spur) Schistocytes PT INR aPTT Heparin Protocol 48.2 L 48.6 L D-Dimer High Sensitivty O2 Saturation ABG pH at Pt Temp ABG pCO2 at Pt Temp ABG pO2 at Pt Temp ABG HCO3 ABG Base Excess (Actual) VBG pH VBG pCO2 VBG pO2 VBG HCO3 VBG O2 Saturation VBG Base Excess Sodium Potassium Chloride Carbon Dioxide Anion Gap BUN Creatinine Estim Creat Clear Calc Estimated GFR POC Glucose Random Glucose Lactic Acid Lactic Acid F/U @ 2Hr Calcium Phosphorus Magnesium Total Bilirubin Direct Bilirubin AST ALT Alkaline Phosphatase Ammonia Troponin I High Sens B-Natriuretic Peptide Total Protein Albumin Lipase 25-OH Vitamin D Total Procalcitonin TSH Urine Color Urine Appearance Urine pH Ur Specific [place] Urine Protein Urine Glucose (UA) Urine Ketones Urine Blood Urine Nitrite Ur Leukocyte Esterase Urine RBC Urine WBC Ur Squamous Epith Cells Urine Bacteria Hyaline Casts Nasal Screen MRSA (PCR) Nasal S. aureus Screen Nasal MRSA/S.aureus Interp Stool Occult Blood NEGATIVE Stl C. cayetanensis PCR Stool Rotavirus A PCR Stl Adenov F 40/41 PCR Stool Astrovirus (PCR) Stool Campylobacter PCR Stool Cryptosporidium PCR Stl Sh Tox Pr E STEC PCR Stool E coli O157 PCR Stl Enterotoxigenic E PCR Stool EPEC (PCR) Stool EAEC (PCR) Stl E. histolytica PCR Stool Giardia Lamblia PCR Stl P. shigelloides PCR Stool Salmonella PCR Stool Sapovirus (PCR) Stl Shigella/EIEC PCR St Y.enterocolitica PCR Stool Vibrio (PCR) Stl Vibrio cholerae PCR Stl Norovirus GI/GII PCR Random Vancomycin Valproic Acid Carbamazepine Lamotrigine Clozapine Norclozapine Respiratory Panel Ashley Adenovirus (Rapid PCR) B.pert (TEM-PCR) B.parapertussis DNA PCR C. pneumoniae DNA (PCR) Coronavirus OC43 (PCR) Coronavirus HKU1 (PCR) Coronavirus 229E (PCR) Coronavirus NL63 (PCR) Hepatitis A IgM Ab Hep Bs Antigen Hepatitis C Ab (EIA) Human Metapneumovir PCR Influenza A (RT-PCR) Influenza Type A (PCR) Influenza B (RT-PCR) Influenza Type B (PCR) M. pneumoniae (PCR) Parainfluenza 1 (PCR) Parainfluenza 2 (PCR) Parainfluenza 3 (PCR) Parainfluenza 4 (PCR) RSV (PCR) RSV RNA Qual (PCR) Entero/Rhino (PCR) SARS-CoV-2 RNA (RT-PCR) Blood Type A Negative Antibody Screen NEGATIVE 06/12/23 11:51 WBC RBC Hgb Hct MCV MCH MCHC RDW Plt Count MPV Immature Gran % (Auto) Neut % (Auto) Lymph % (Auto) [place] % (Auto) Eos % (Auto) Baso % (Auto) Lymph # (Auto) [place] # (Auto) Eos # (Auto) Baso # (Auto) Abs Immat Gran (auto) Absolute Neuts (auto) Absolute Nucleated RBC Nucleated RBC % (auto) Neutrophils % (Manual) Band Neutrophils % Lymphocytes % (Manual) Atypical Lymphs % (Man) Monocytes % (Manual) Eosinophils % (Manual) Metamyelocytes % Myelocytes % Promyelocytes % Abs Neuts (Manual) Lymphocytes # (Manual) Atyp Lymphs # (Manual) Monocytes # (Manual) Eosinophils # (Manual) Metamyelocytes # Myelocytes # Promyelocytes # Nucleated RBCs Smudge Cells Toxic Granulation Toxic Vacuolation Platelet Estimate Large Platelets Plt Morphology Comment RBC Morphology Polychromasia Hypochromasia Basophilic Stippling Spherocytes Tear Drop Cells Ovalocytes [place] Bodies [place] Cells Acanthocytes (Spur) Schistocytes PT INR aPTT Heparin Protocol D-Dimer High Sensitivty O2 Saturation ABG pH at Pt Temp ABG pCO2 at Pt Temp ABG pO2 at Pt Temp ABG HCO3 ABG Base Excess (Actual) VBG pH VBG pCO2 VBG pO2 VBG HCO3 VBG O2 Saturation VBG Base Excess Sodium Potassium Chloride Carbon Dioxide Anion Gap BUN Creatinine Estim Creat Clear Calc Estimated GFR POC Glucose 137 H Random Glucose Lactic Acid Lactic Acid F/U @ 2Hr Calcium Phosphorus Magnesium Total Bilirubin Direct Bilirubin AST ALT Alkaline Phosphatase Ammonia Troponin I High Sens B-Natriuretic Peptide Total Protein Albumin Lipase 25-OH Vitamin D Total Procalcitonin TSH Urine Color Urine Appearance Urine pH Ur Specific [place] Urine Protein Urine Glucose (UA) Urine Ketones Urine Blood Urine Nitrite Ur Leukocyte Esterase Urine RBC Urine WBC Ur Squamous Epith Cells Urine Bacteria Hyaline Casts Nasal Screen MRSA (PCR) Nasal S. aureus Screen Nasal MRSA/S.aureus Interp Stool Occult Blood Stl C. cayetanensis PCR Stool Rotavirus A PCR Stl Adenov F 40/41 PCR Stool Astrovirus (PCR) Stool Campylobacter PCR Stool Cryptosporidium PCR Stl Sh Tox Pr E STEC PCR Stool E coli O157 PCR Stl Enterotoxigenic E PCR Stool EPEC (PCR) Stool EAEC (PCR) Stl E. histolytica PCR Stool Giardia Lamblia PCR Stl P. shigelloides PCR Stool Salmonella PCR Stool Sapovirus (PCR) Stl Shigella/EIEC PCR St Y.enterocolitica PCR Stool Vibrio (PCR) Stl Vibrio cholerae PCR Stl Norovirus GI/GII PCR Random Vancomycin Valproic Acid Carbamazepine Lamotrigine Clozapine Norclozapine Respiratory Panel Ashley Adenovirus (Rapid PCR) B.pert (TEM-PCR) B.parapertussis DNA PCR C. pneumoniae DNA (PCR) Coronavirus OC43 (PCR) Coronavirus HKU1 (PCR) Coronavirus 229E (PCR) Coronavirus NL63 (PCR) Hepatitis A IgM Ab Hep Bs Antigen Hepatitis C Ab (EIA) Human Metapneumovir PCR Influenza A (RT-PCR) Influenza Type A (PCR) Influenza B (RT-PCR) Influenza Type B (PCR) M. pneumoniae (PCR) Parainfluenza 1 (PCR) Parainfluenza 2 (PCR) Parainfluenza 3 (PCR) Parainfluenza 4 (PCR) RSV (PCR) RSV RNA Qual (PCR) Entero/Rhino (PCR) SARS-CoV-2 RNA (RT-PCR) Blood Type Antibody Screen Airway Heart: RRR Lungs: CTA Assessment and Plan Final Anesthetic Review Family History of Problems with Anesthesia: No History of Problems with Anesthesia: No ASA Class: IV and Emergency Final Preanesthetic Review: Meds/Allgs Chart Reviewed, Consent Obtained/Reviewed and DNR Form (If Appl.) Patient Risk: High Procedure Risk: Intermediate Anesthetic Plan Anesthetic Plan: GA Disposition: Standard PACU
--- NOTE | 2023-06-12 14:52 | MHC.SLORD ---
Speech Language Pathology Order Status: Per RN, patient is NPO for possible procedure for pacemaker. No PO trials given. Once patient is cleared to resume PO, MANAGER OF SALES recc is NDD3/THIN.
--- NOTE | 2023-06-12 17:17 | W.PM.OPN ---
Operative Note Operative Note Date of Service: 06/12/23 Narrative: NAME OF PROCEDURE: ? 1.???Dual chamber?pacemaker?with Dixon ? INDICATION FOR PROCEDURE:??Intermittent Complete heart block Description of Procedure:?Patient was identified brought to the electrophysiology laboratory in a postabsorptive state.??The left pectoral region was prepped and draped in usual sterile fashion. Incision was made over the left pectoral region and pectoral subcutaneous pocket was made. Afterwards left axillary venous access was obtained using micropuncture needle and fluoroscopic guidance, a 7-English sheath was placed.??Right ventricular lead was placed in the right ventricular septum ?with good sensing and pacing thresholds.??The sheath was split and the lead was then anchored to the pectoral fascia with Ethibond suture.?? ? Afterwards left axillary venous access was obtained using micropuncture needle and fluoroscopic guidance, a 7-English sheath was placed.??Right atrial pacing lead was advanced and placed in the base of the right atrial appendage with good sensing and pacing thresholds.??The sheath was split and the lead was then anchored to the pectoral fascia with Ethibond suture.?? ? The subcutaneous pocket was made and the wound was irrigated with antibiotic solution.??The??leads were then connected to a?pacemaker?generator and placed in the pocket.??The wound was closed with 3 layers of absorbable sutures.?? Patient tolerated procedure well.??There were no complications. ? ? IMPRESSION:?? Successful?implantation?of Dual chamber?pacemaker? ? ? PLAN: ? 1.?Routine postprocedure monitoring. 2.?CXR today? 3.?Post operative Abx? 4. ???EKG today? 5. ???Interrogation of device
[2023-06-12 17:24] LABS: Glucose, Whole Blood 139 mg/dL (60-115)
[2023-06-12 18:28] LABS: Anion Gap 15 (12-20); Blood Urea Nitrogen 19 mg/dL (9-16); Calcium 8.6 mg/dL (8.4-10.2); Carbon Dioxide 28 mmol/L (22-29); Chloride 105 mmol/L (96-108); Creatinine Clr Calc Pharmacy 87.3; Estimated Glomerular Filt Rate > 60; Glucose Random 150 mg/dL (60-115); Magnesium 1.9 mg/dL (1.6-2.6); Phosphorus 3.3 mg/dL (2.7-4.5); Potassium 3.7 mmol/L (3.3-5.1); Sodium 144 mmol/L (135-145)
[2023-06-12] MEDS: dexmedeTOMIDidine HCL/NS 400 MCG/100 ML INFUS..BTL 27.45 MCG IVCONT (21:09)
[2023-06-12 22:07] LABS: Vancomycin Random 17.6 mcg/mL (15-20)
[2023-06-13] VITALS (31 sets, daily range): BP systolic 116–148; BP diastolic 50–76; PULSE 60–99; RESP 16–28; TEMP 34.9–36.8; O2SAT 91–99; BMI 37.3
[2023-06-13] MEDS: dexmedeTOMIDidine HCL/NS 400 MCG/100 ML INFUS..BTL 16.47 MCG IVCONT
[2023-06-13 00:01] LABS: Glucose, Whole Blood 180 mg/dL (60-115)
[2023-06-13 05:29] LABS: VBG Base Excess 10.3 mmol/L; VBG HCO3 34 mmol/L (22-26); VBG pCO2 47 mmHg; VBG pH 7.47 (7.32-7.43); VBG pO2 59 mmHg
[2023-06-13 05:33] LABS: Venous Blood Gas Refer to POC result
[2023-06-13] MEDS: Piperacillin Sodium/Tazobactam 4.5 GM in 0.9 % Sodium Chloride 100 ML IV (05:50)
[2023-06-13 06:07] LABS: MANUAL DIFF FLAG NO
[2023-06-13 06:14] LABS: Basophils Percent Auto 0.3 % (0-2); Eosinophils Percent Auto 0.6 % (0-4); Hematocrit 24.2 % (37.0-47.0); Hemoglobin 7.5 g/dl (12.0-16.0); Imm Gran Abs Auto 0.07 X10*3/uL (0.00-0.03); Imm Gran Pct Auto 1.1 % (0.0-0.4); Lymphocytes Absolute Auto 1.5 X10*3/uL (1.2-4.9); Lymphocytes Percent Auto 22.9 % (20-40); Mean Corpuscular Hemoglobin 30.9 pg (27.0-33.0); Mean Corpuscular Volume 99.6 fL (80.0-98.0); Mean Platelet Volume 10.1 fL (9.4-12.3); Monocytes Absolute Auto 0.3 X10*3/uL (0.1-1.2); Monocytes Percent Auto 4.4 % (2-11); Neutrophils Absolute Auto 4.5 x10*3/uL (2.0-8.3); Neutrophils Percent Auto 70.7 % (45-73); Platelet Count 217 X10*3/uL (160-400); Red Blood Count 2.43 X10*6/uL (4.20-5.50); Red Cell Distribution Width 14.3 % (11.0-16.0); White Blood Count 6.4 X10*3/uL (4.8-10.8)
--- NOTE | 2023-06-13 06:16 | PC.NURSE ---
Upon initial assessment at 1900- pt still intubated s/p PPM. Off sedation, alert and following commands appropriately. Plan to wean vent and extubate per [employer] WALL [employer]ING MACHINE TENDER Luther. At approx 2000- pt on PSV 22/5/60%, RT attempted to wean but met with low Vt/Ve, high EtCO2/RR, and no audible cuff leak. Pt becoming restless, reaching for lines/tubes and attempting to get OOB, [employer] WALL [employer]ING MACHINE TENDER notified- new order for Precedex gtt, started and titrated per APR. Vent continued to be weaned by RT throughout shift, cuff leak now present and currently on PSV 12/5/30%, RR 20s, Vt 200-300 mL, Ve about 5-6 L/min, SpO2 > 92%. HR 60-70s on tele, pacing/sensing/capturing appropriately. NPO. Incontinent of urine/stool. Skin- PI to buttocks as charted; surgical dressing to left chest C/D/I. Family at bedside at beginning of shift and aware of pt status/plan of care.
[2023-06-13 06:24] LABS: Anion Gap 17 (12-20); Blood Urea Nitrogen 21 mg/dL (9-16); Calcium 8.9 mg/dL (8.4-10.2); Carbon Dioxide 27 mmol/L (22-29); Chloride 107 mmol/L (96-108); Creatinine Clr Calc Pharmacy 97.2; Estimated Glomerular Filt Rate > 60; Glucose Random 139 mg/dL (60-115); Magnesium 1.9 mg/dL (1.6-2.6); Phosphorus 3.2 mg/dL (2.7-4.5); Potassium 4.1 mmol/L (3.3-5.1); Sodium 147 mmol/L (135-145)
--- NOTE | 2023-06-13 07:35 | P.CDIM_ITS ---
PROVIDER RESPONSE TEXT: To clarify, the appropriate diagnosis supported by the clinical indicators: Acute blood loss anemia with baseline chronic anemia: likely d/t frequent phelbotomy QUERY TEXT: PHYSICIAN'S DOCUMENTATION REQUEST Date of Query: 06/12/2023 02:25 PM EDT Patient Name: Daily Townsend Admit Date: 05/28/2023 Dear Chanel Coker MD, A review of the medical record indicates additional documentation may be needed. Please review below and update the documentation accordingly. Clinical Indicators: Per Critical Care Progress Note 06/12/23: acute anemia, likely due to frequent phlebotomy, also on Heparin drip Based on the above, could you clarify which of the following is the most likely type of anemia you ar e evaluating, treating, and/or monitoring? Acute blood loss anemia Acute blood loss anemia with baseline chronic anemia (specify type) Anemia of chronic disease indicate if neoplastic disease, CKD, or other Chronic iron deficiency anemia due to blood loss Anemia due to circulating anti-coagulant Other (explain) Clinically unable to determine (explain) Thank you, Carol Bundy RN Use of terms such as suspected, likely, concern for, or probable (associated with a specific diagnosi s that is being evaluated, monitored, or treated as if it exists) are acceptable and can be coded in the inpatient se tting, when documented at the time of discharge. Please use your independent medical judgment in providing your response. THIS QUERY IS PART OF THE PERMANENT MEDICAL RECORD
[2023-06-13] MEDS: Famotidine/PF 20 MG/2 ML VIAL IVPUSH (08:04)
[2023-06-13] MEDS: Valproic Acid (as Sodium Salt) 750 MG in Dextrose 5 % 50 ML 57.5 MG IV ×2 (08:04→21:46)
[2023-06-13] MEDS: methylPREDNISolone Sod Succ 40 MG/ML VIAL IVPUSH ×3 (08:04→20:19)
[2023-06-13] MEDS: Chlorhexidine Gluc Oral Rinse 15 ML MOUTHWASH BUCCAL (08:04)
[2023-06-13] MEDS: Furosemide 20 MG/2 ML VIAL 10 MG IVPUSH ×3 (08:04→17:58)
[2023-06-13] MEDS: 0.9 % Sodium Chloride Flush 3 ML SYRINGE IVFLUSH (08:04)
--- NOTE | 2023-06-13 08:17 | PM.CCPN ---
Subjective Subjective Date of Service: 06/13/23 Interval History: s/p pacemaker 06/11 PM; intubated for procedure, though remains DNI; currently awake, alert; plan to extubate Critical Care Time (minutes): 90 Physical Exam Vital Signs: Vital Signs: Last Vital Signs Temp 97.2 F 06/13/23 07:00 Pulse 64 06/13/23 08:00 Resp 19 06/13/23 08:00 BP 128/56 L 06/13/23 08:04 Pulse Ox 96 06/13/23 08:00 O2 Del Method Mechanical Ventil ation 06/13/23 08:00 O2 Flow Rate 35 06/12/23 15:00 FiO2 30 06/13/23 08:00 Oxygen Flow Rate 15 05/29/23 06:00 BMI result Body Mass Index 37.3 Const: Other: intubated General: cooperative, healthy appearing, comfortable, no acute distress, well developed, alert, awake and Physically active Orientation/consciousness: oriented to person HEENT: Head: Yes normal to inspection, Yes normocephalic and Yes atraumatic Eyes: General: appearance normal, both eyes and all related structures Neck: Neck: Yes normal visual inspection, Yes full ROM, Yes no meningeal signs and Yes supple Chest: Chest palpation & inspection: normal inspection of the chest Resp: Other: no appreciable rales, rhonchi, wheezing Effort & Inspection: normal respiratory effort Cardio: Rate: regular rate Rhythm: regular rhythm GI: Inspection: Yes normal to inspection, No Abdominal wall edema and No distended Palpation (GI): Soft to palpation, not firm, nontender, no guarding and not rigid Skin: General skin exam: no rashes or lesions noted Neuro: General: oriented to person, tone normal, moves all extremities, no meningeal signs and no focal motor deficits Extrem: Other: minimal pitting edema to bilateral knees General: Yes normal to inspection, Yes full ROM and Yes capillary refill normal Psych: Appearance: grossly normal Objective Data Labs 06/13/23 05:18 06/13/23 05:18 Labs: Laboratory Results - last 24 hr 06/12/23 06/12/23 06/12/23 09:38 10:10 11:51 WBC RBC Hgb Hct MCV MCH MCHC RDW Plt Count MPV Immature Gran % (Auto) Neut % (Auto) Lymph % (Auto) [place] % (Auto) Eos % (Auto) Baso % (Auto) Lymph # (Auto) [place] # (Auto) Eos # (Auto) Baso # (Auto) Abs Immat Gran (auto) Absolute Neuts (auto) Absolute Nucleated RBC Nucleated RBC % (auto) aPTT Heparin Protocol 48.6 L VBG pH VBG pCO2 VBG pO2 VBG HCO3 VBG O2 Saturation VBG Base Excess Sodium Potassium Chloride Carbon Dioxide Anion Gap BUN Creatinine Estim Creat Clear Calc Estimated GFR POC Glucose 137 H Random Glucose Calcium Phosphorus Magnesium Stool Occult Blood NEGATIVE Random Vancomycin Blood Type A Negative Antibody Screen NEGATIVE 06/12/23 06/12/23 06/12/23 17:21 17:59 21:08 WBC RBC Hgb Hct MCV MCH MCHC RDW Plt Count MPV Immature Gran % (Auto) Neut % (Auto) Lymph % (Auto) [place] % (Auto) Eos % (Auto) Baso % (Auto) Lymph # (Auto) [place] # (Auto) Eos # (Auto) Baso # (Auto) Abs Immat Gran (auto) Absolute Neuts (auto) Absolute Nucleated RBC Nucleated RBC % (auto) aPTT Heparin Protocol VBG pH VBG pCO2 VBG pO2 VBG HCO3 VBG O2 Saturation VBG Base Excess Sodium 144 Potassium 3.7 Chloride 105 Carbon Dioxide 28 Anion Gap 15 BUN 19 H Creatinine 0.82 Estim Creat Clear Calc 87.3 Estimated GFR > 60 POC Glucose 139 H Random Glucose 150 H Calcium 8.6 Phosphorus 3.3 Magnesium 1.9 Stool Occult Blood Random Vancomycin 17.6 Blood Type Antibody Screen 06/12/23 06/13/23 06/13/23 23:56 05:18 05:19 WBC 6.4 RBC 2.43 L Hgb 7.5 L Hct 24.2 L MCV 99.6 H MCH 30.9 MCHC 31.0 RDW 14.3 Plt Count 217 MPV 10.1 Immature Gran % (Auto) 1.1 H Neut % (Auto) 70.7 Lymph % (Auto) 22.9 [place] % (Auto) 4.4 Eos % (Auto) 0.6 Baso % (Auto) 0.3 Lymph # (Auto) 1.5 [place] # (Auto) 0.3 Eos # (Auto) 0.0 Baso # (Auto) 0.0 Abs Immat Gran (auto) 0.07 H Absolute Neuts (auto) 4.5 Absolute Nucleated RBC 0.000 Nucleated RBC % (auto) 0.0 aPTT Heparin Protocol VBG pH 7.47 H VBG pCO2 47 VBG pO2 59 VBG HCO3 34 H VBG O2 Saturation 90.0 VBG Base Excess 10.3 Sodium 147 H Potassium 4.1 Chloride 107 Carbon Dioxide 27 Anion Gap 17 BUN 21 H Creatinine 0.73 Estim Creat Clear Calc 97.2 Estimated GFR > 60 POC Glucose 180 H Random Glucose 139 H Calcium 8.9 Phosphorus 3.2 Magnesium 1.9 Stool Occult Blood Random Vancomycin Blood Type Antibody Screen Microbiology Microbiology Results: Microbiology 06/02/23 11:46 Blood - Venous Blood Culture - Final No growth after 5 days. 06/02/23 11:46 Blood - Venous Blood Culture - Final No growth after 5 days. 06/02/23 11:28 Lung - Suctioned Gram Stain - Final 06/02/23 11:28 Lung - Suctioned Sputum Culture - Final 05/29/23 11:40 Blood - Venous Blood Culture - Final No growth after 5 days. 05/29/23 11:55 Blood - Venous Blood Culture - Final No growth after 5 days. 05/31/23 00:20 Sputum - Suctioned Gram Stain - Final 05/31/23 00:20 Sputum - Suctioned Sputum Culture - Final 05/27/23 13:59 Blood - Venous Blood Culture - Final No growth after 5 days. 05/27/23 13:55 Blood - Venous Blood Culture - Final Coag negative Staphylococcus 05/28/23 Unknown Urine clean catch - Urine chandler top Urine Culture - Final Progress Note: A&P Assessment and plan (1) Asystole: Status: Acute (2) Paroxysmal atrial fibrillation: Status: Acute (3) Acute respiratory failure with hypoxia: Status: Acute (4) Acute pulmonary edema: Status: Acute (5) Schizoaffective disorder, bipolar type: Status: Acute Plan Patient is a 62 Y F with metabolic syndrome, non-insulin dependent diabetes mellitus, hypothyroidism, obstructive sleep apnea non-compliant w/ CPAP, bipolar disease, initially presenting to emergency department on 05/26 w/ diarrhea, found to have dehydration, electrolyte abnormalities; on 05/29, developed hypoxia, likely d/t volume overload, c/f aspiration, pneumonia, transferred ICU, intubated, extubated, re-intubated, and extubated; of note, ICU course c/b recurrent astystolic events, s/p pacemaker 06/11 N: no acute issues CV: symptomatic bradycardia/sinus pauses/asystole, s/p pacemaker 06/11; paroxysmal atrial flutter/fibrillation; previously on heparin gtt, though now sinus R: acute hypoxic respiratory failure, likely d/t volume overload, c/f aspiration, pneumonia, intubated/extubated/re-intubated/extubated, improved, though now re-intubated for pacemaker; plan to extubate; obstructive sleep apnea GI: advance diet as tolerated : volume overload, furosemide BID; hypernatremia, improved; to continue to closely monitor electrolytes H: acute anemia, likely d/t frequent phlebotomy; previously on heparin gtt ID: c/f aspiration, pneumonia; empiric vancomycin, zosyn E: no acute issues; non-insulin dependent diabetes mellitus, hypothyroidism P: bipolar disease; appreciate psychiatry recommendations Quality Stroke Does the patient have a stroke diagnosis?: No VTE Prior VTE?: No VTE Risk Level:: Medical - moderate - high VTE Device Contraindication: Treatment Not Indicated VTE Drug Contraindication: N/A - Med Ordered
--- NOTE | 2023-06-13 10:00 | PM.PNCARD ---
Subjective Subjective Date of Service: 06/13/23 Principal diagnosis: Asystole, tachyarrhythmias, hypotension Interval history: Patient states she feels good. Today morning when I talked to her, she actually feels looks quite oriented and she is able to actually understand what happened yesterday including the fact she received a pacemaker. Hence it might be possible that she is just waxing and waning. After the pacemaker implant, she states she is feeling better. Review of Systems Review of Systems Yes all other systems are reviewed and are negative Constitutional: Reports as per HPI and Reports no additional constitutional complaints Eyes: Reports as per HPI and Denies no additional eye complaints Denies system reviewed and no additional complaints, except as documented and Reports as per HPI Cardiovascular: Reports as per HPI, Reports no additional cardiovascular complaints, Denies acrocyanosis, Denies cool extremities, Denies chest pain, Denies leg edema, Denies lightheadedness, Denies palpitations and Denies dyspnea Respiratory: Reports as per HPI, Denies no additional respiratory complaints and Denies dyspnea Gastrointestinal: Reports as per HPI and Denies no additional gastrointestinal complaints Genitourinary: Reports as per HPI Musculoskeletal: Reports no additional musculoskeletal complaints and Reports as per HPI Skin/Breast: Reports system reviewed and no additional complaints, except as docu Reports system reviewed and no additional complaints, except as documented and Reports as per HPI Psychiatric: Reports no additional psychiatric complaints and Reports as per HPI Endocrine: Reports no additional endocrine complaints, Reports as per HPI and Denies palpitations Hematologic/Lymphatic: Reports no additional hematologic/lymphatic complaints and Reports as per HPI Allergic/Immunologic: Reports no additional allergic/immunologic complaints and Reports as per HPI Physical Exam Vital Signs: Last Vital Signs Temp 97.2 F 06/13/23 07:00 Pulse 85 06/13/23 09:59 Resp 16 06/13/23 09:59 BP 117/56 L 06/13/23 09:59 Pulse Ox 98 06/13/23 09:59 O2 Del Method Nasal Cannula 06/13/23 09:59 O2 Flow Rate 6 06/13/23 09:59 FiO2 30 06/13/23 08:30 Oxygen Flow Rate 15 05/29/23 06:00 BMI result Body Mass Index 37.3 Const General: comfortable and no acute distress Orientation/consciousness: patient oriented x3 HEENT Other: Unremarkable Head: Yes normal to inspection Neck Neck: Yes normal visual inspection Chest Chest palpation & inspection: normal inspection of the chest Resp Auscultation: rhonchi and diminished lung sounds Cardio Palpation: normal PMI Heart sounds: S1 normal heart sound present, S2 normal heart sound present, no gallops, no murmurs and no rubs GI Palpation (GI): Soft to palpation Back/Spine/Pelvis Other: unremarkable Skin General skin exam: no rashes or lesions noted Neuro General: patient oriented x3 Extrem General: Yes normal to inspection Psych Mental Status: mental status grossly normal Objective Labs and Meds 06/13/23 05:18 06/13/23 05:18 Lab results: Laboratory Results - last 24 hr 06/12/23 06/12/23 06/12/23 09:38 10:10 11:51 WBC RBC Hgb Hct MCV MCH MCHC RDW Plt Count MPV Immature Gran % (Auto) Neut % (Auto) Lymph % (Auto) [place] % (Auto) Eos % (Auto) Baso % (Auto) Lymph # (Auto) [place] # (Auto) Eos # (Auto) Baso # (Auto) Abs Immat Gran (auto) Absolute Neuts (auto) Absolute Nucleated RBC Nucleated RBC % (auto) VBG pH VBG pCO2 VBG pO2 VBG HCO3 VBG O2 Saturation VBG Base Excess Sodium Potassium Chloride Carbon Dioxide Anion Gap BUN Creatinine Estim Creat Clear Calc Estimated GFR POC Glucose 137 H Random Glucose Calcium Phosphorus Magnesium Stool Occult Blood NEGATIVE Random Vancomycin Blood Type A Negative Antibody Screen NEGATIVE 06/12/23 06/12/23 06/12/23 17:21 17:59 21:08 WBC RBC Hgb Hct MCV MCH MCHC RDW Plt Count MPV Immature Gran % (Auto) Neut % (Auto) Lymph % (Auto) [place] % (Auto) Eos % (Auto) Baso % (Auto) Lymph # (Auto) [place] # (Auto) Eos # (Auto) Baso # (Auto) Abs Immat Gran (auto) Absolute Neuts (auto) Absolute Nucleated RBC Nucleated RBC % (auto) VBG pH VBG pCO2 VBG pO2 VBG HCO3 VBG O2 Saturation VBG Base Excess Sodium 144 Potassium 3.7 Chloride 105 Carbon Dioxide 28 Anion Gap 15 BUN 19 H Creatinine 0.82 Estim Creat Clear Calc 87.3 Estimated GFR > 60 POC Glucose 139 H Random Glucose 150 H Calcium 8.6 Phosphorus 3.3 Magnesium 1.9 Stool Occult Blood Random Vancomycin 17.6 Blood Type Antibody Screen 06/12/23 06/13/23 06/13/23 23:56 05:18 05:19 WBC 6.4 RBC 2.43 L Hgb 7.5 L Hct 24.2 L MCV 99.6 H MCH 30.9 MCHC 31.0 RDW 14.3 Plt Count 217 MPV 10.1 Immature Gran % (Auto) 1.1 H Neut % (Auto) 70.7 Lymph % (Auto) 22.9 [place] % (Auto) 4.4 Eos % (Auto) 0.6 Baso % (Auto) 0.3 Lymph # (Auto) 1.5 [place] # (Auto) 0.3 Eos # (Auto) 0.0 Baso # (Auto) 0.0 Abs Immat Gran (auto) 0.07 H Absolute Neuts (auto) 4.5 Absolute Nucleated RBC 0.000 Nucleated RBC % (auto) 0.0 VBG pH 7.47 H VBG pCO2 47 VBG pO2 59 VBG HCO3 34 H VBG O2 Saturation 90.0 VBG Base Excess 10.3 Sodium 147 H Potassium 4.1 Chloride 107 Carbon Dioxide 27 Anion Gap 17 BUN 21 H Creatinine 0.73 Estim Creat Clear Calc 97.2 Estimated GFR > 60 POC Glucose 180 H Random Glucose 139 H Calcium 8.9 Phosphorus 3.2 Magnesium 1.9 Stool Occult Blood Random Vancomycin Blood Type Antibody Screen Progress Note: A&P Assessment and plan (1) Persistent atrial fibrillation: Status: Acute (2) Asystole: Status: Acute Plan Earlier this week, when she had complete heart block for almost 2 minutes x several episodes, I had a discussion with her. At that time of discussion, she was oriented and wanted a pacemaker even though the code status is listed as DNR/DNI. Subsequently, EP spoke to her family and they decided against. However, the next morning family once again decided that they would actually like her to get a pacemaker. After numerous discussions including with TICK ERADICATOR Dr. Alvarado, patient underwent permanent pacemaker successfully as today. She is now again oriented and conversing to reasonable extent and happy with the fact she got the procedure. Pacemaker function is normal on interrogation. In terms of rhythm, she is back in normal sinus rhythm. Hence would be reasonable to keep her in sinus with amiodarone. She does have psychiatric medications which may be causing interactions and hence will need to be appropriately adjusted. Anticoagulation with Eliquis. Diuretics as necessary. Management of respiratory status. For anticoagulation use Eliquis. Time Spent With Patient Time: Total time managing care of this patient today ____ minutes. Progress Note: Quality Stroke Does the patient have a stroke diagnosis?: No Procedures Date of Service Date of Service: 06/13/23
[2023-06-13] MEDS: vancomycin HCL 750 MG in 0.9 % Sodium Chloride 250 ML 265 MG IV ×2 (10:31→22:40)
--- NOTE | 2023-06-13 10:51 | MHC.SL.SWA ---
Speech Pathologist Impression: Risk of Aspiration Due to: Hx of Recent Extubation Dysphasia Diet Status: Recommend UPGRADE diet to REGULAR, with recommendation patient elect softer foods, initially, from this menu, THIN liquids, Pills whole with liquid or puree (as preferred by patient). Liquid Consistency and Strategies for Safe Swallow: Liquid Intake Recommendation: Thin Liquid Intake Strategies: Small Sips Solid Food Consistency: Dietary Recommendations: Regular Additional Modifications to Solid Foods: Recommend patient initially elect softer, easier to chew solids from the regular menu. Oral Medication Intake: Whole with Liquid Please contact the pharmacy regarding appropriate crushable or liquid drug formulations that are available whenever modified delivery is recommended. Compensatory Strategies and Precautions to be Taken for Safe Swallow: Sitting Upright (90 deg) Liquids from Cup Liquids from Straw Small Bites and Sips Alternate Liquids/Solids Supervision While Eating and Drinking for Safe Swallow: Total Supervision (1:1) Foods to Avoid: Avoid tough difficult to chew solids or too large pieced of food. Swallowing Recommended Treatments: Compens. Strategy Educat. Recommendation for Speech: Inpatient Speech Therapy Comment: RN in ICU requested CHIEF OPERATING ENGINEER re-assess patient, as she is s/p intubation for pacemaker surgery this a.m. Patient was intubated for less than 24 hours. Patient was awake and alert, asking about getting some food, mildly confused, but pleasant. Patient was given trials of water by spoon, cup sip and straw sip with all aspects of swallow WFL, however when patient attempted to self administer a sip of liquid from cup, spilled on herself. She was able to hold cup and sip from straw with minor assistance. Patient was given trials of puree, softened cracker in puree, hard cracker in puree, and plain saltine, demonstrated all aspects of swallow WFL. Overall presentation is improved from two days ago, where generalized weakness was more prominent. Recommend UPGRADE diet to REGULAR, with recommendation patient elect softer foods, initially, from this menu, THIN liquids, Pills whole with liquid or puree (as preferred by patient). , RN notified of recommendation in person, RD by secure text. CHIEF OPERATING ENGINEER will f/u X1 to assure patient is tolerating diet. Frequency/Duration: Date Range for Service Req: Timeline to reassess: Health And Nutrition Specialist Clinican/Clinical Fellow: No Supervisory Statement: I have reviewed and agree with the student/clinical fellow's documentation: N/A Speech Language Pathologist: Krystina Huffman M.A., [facility]-CHIEF OPERATING ENGINEER
--- NOTE | 2023-06-13 11:15 | HO.POSTANES ---
Post Anesthesia Evaluation Post Anesthesia Evaluation Date of Service: 06/13/23 Vital Signs: Vital Signs Temp Pulse Resp BP Pulse Ox O2 Del Method O2 Flow Rate 06/13/23 11:00 77 23 H 134/55 L 99 Nasal Cannula 4 06/13/23 10:31 120/53 L 06/13/23 09:59 85 16 117/56 L 98 Nasal Cannula 6 06/13/23 09:00 72 19 121/53 L 96 Nasal Cannula 6 06/13/23 08:30 06/13/23 08:04 128/56 L 06/13/23 08:00 06/13/23 08:00 64 19 128/56 L 96 Mechanical Ventilation 06/13/23 07:34 06/13/23 07:00 97.2 F 68 19 116/50 L 95 Mechanical Ventilation 06/13/23 06:00 60 18 120/53 L 94 Mechanical Ventilation 06/13/23 05:53 06/13/23 05:00 97.0 F 68 17 125/57 L Mechanical Ventilation 06/13/23 04:26 06/13/23 04:00 96.5 F L 65 17 124/61 98 Mechanical Ventilation 06/13/23 03:35 06/13/23 03:00 97.0 F 64 19 116/59 L Mechanical Ventilation 06/13/23 02:00 60 21 H 121/50 L 94 Mechanical Ventilation 06/13/23 01:00 96.7 F L 62 21 H 119/54 L 97 Mechanical Ventilation 06/13/23 00:00 96.6 F L 74 25 H 131/64 94 Mechanical Ventilation 06/13/23 00:00 06/12/23 23:32 FiO2 06/13/23 11:00 06/13/23 10:31 06/13/23 09:59 06/13/23 09:00 06/13/23 08:30 30 06/13/23 08:04 06/13/23 08:00 30 06/13/23 08:00 30 06/13/23 07:34 30 06/13/23 07:00 30 06/13/23 06:00 30 06/13/23 05:53 35 06/13/23 05:00 35 06/13/23 04:26 45 06/13/23 04:00 45 06/13/23 03:35 45 06/13/23 03:00 45 06/13/23 02:00 45 06/13/23 01:00 40 06/13/23 00:00 45 06/13/23 00:00 45 06/12/23 23:32 45 Anesthesia: General Endotracheal-GETA Mental Status: Sedated Pain Control: Satisfactory Nausea/Vomiting: None Hydration: Adequate Anesthesia-Related Issues: No Anes. Related Issues
[2023-06-13 11:27] LABS: Glucose, Whole Blood 157 mg/dL (60-115)
[2023-06-13] MEDS: Insulin Lispro 100 UNIT/ML 3 ML VIAL SUBCUT ×3 (11:49→21:46)
[2023-06-13 16:43] LABS: Glucose, Whole Blood 149 mg/dL (60-115)
[2023-06-13] MEDS: Apixaban 5 MG TABLET PO (20:19)
[2023-06-13] MEDS: Amiodarone HCL 200 MG TABLET 400 MG PO (20:19)
[2023-06-13 21:23] LABS: Vancomycin Random 16.4 mcg/mL (15-20)
[2023-06-13 21:24] LABS: Glucose, Whole Blood 191 mg/dL (60-115)
[2023-06-14] VITALS (15 sets, daily range): BP systolic 123–153; BP diastolic 47–69; PULSE 77–97; RESP 12–27; TEMP 36–36.8; O2SAT 91–96; BMI 37.0
[2023-06-14] MEDS: methylPREDNISolone Sod Succ 40 MG/ML VIAL IVPUSH (02:59)
[2023-06-14] MEDS: Thyroid,Pork 30 MG TABLET 120 MG PO (05:10)
[2023-06-14 05:47] LABS: MANUAL DIFF FLAG NO
[2023-06-14 06:07] LABS: Albumin Level 3.4 g/dL (3.5-5.0); Anion Gap 14 (12-20); Blood Urea Nitrogen 20 mg/dL (9-16); Calcium 9.3 mg/dL (8.4-10.2); Carbon Dioxide 29 mmol/L (22-29); Chloride 106 mmol/L (96-108); Estimated Glomerular Filt Rate > 60; Glucose Random 164 mg/dL (60-115); Phosphorus 2.3 mg/dL (2.7-4.5); Potassium 3.9 mmol/L (3.3-5.1); Sodium 145 mmol/L (135-145)
[2023-06-14 06:27] LABS: Basophils Percent Auto 0.3 % (0-2); Hematocrit 25.5 % (37.0-47.0); Imm Gran Abs Auto 0.23 X10*3/uL (0.00-0.03); Imm Gran Pct Auto 3.2 % (0.0-0.4); Lymphocytes Absolute Auto 0.9 X10*3/uL (1.2-4.9); Mean Corpuscular HGB Conc 31.4 g/dl (31.0-35.0); Mean Corpuscular Hemoglobin 30.8 pg (27.0-33.0); Mean Corpuscular Volume 98.1 fL (80.0-98.0); Mean Platelet Volume 10.2 fL (9.4-12.3); Monocytes Absolute Auto 0.2 X10*3/uL (0.1-1.2); Monocytes Percent Auto 3.1 % (2-11); Neutrophils Absolute Auto 5.7 x10*3/uL (2.0-8.3); Neutrophils Percent Auto 80.4 % (45-73); Platelet Count 247 X10*3/uL (160-400); Red Cell Distribution Width 14.6 % (11.0-16.0); White Blood Count 7.1 X10*3/uL (4.8-10.8)
[2023-06-14 07:19] LABS: Glucose, Whole Blood 159 mg/dL (60-115)
--- NOTE | 2023-06-14 07:47 | P.PNCC_ITS ---
Subjective Subjective Date of Service: 06/14/23 Interval History: no significant overnight events Critical Care Time (minutes): 60 Physical Exam 2 Vital Signs: Vital Signs: Last Vital Signs Temp 98.3 F 06/14/23 07:00 Pulse 93 06/14/23 07:00 Resp 26 H 06/14/23 07:00 BP 152/60 H 06/14/23 07:00 Pulse Ox 91 L 06/14/23 07:00 O2 Del Method Nasal Cannula 06/14/23 07:00 O2 Flow Rate 2 06/14/23 07:00 FiO2 30 06/13/23 08:30 Oxygen Flow Rate 15 05/29/23 06:00 BMI result Body Mass Index 37.0 Objective Data Labs 06/14/23 05:35 06/14/23 05:35 Labs: Laboratory Results - last 24 hr 06/13/23 06/13/23 06/13/23 11:20 16:36 21:01 WBC RBC Hgb Hct MCV MCH MCHC RDW Plt Count MPV Immature Gran % (Auto) Neut % (Auto) Lymph % (Auto) [place] % (Auto) Eos % (Auto) Baso % (Auto) Lymph # (Auto) [place] # (Auto) Eos # (Auto) Baso # (Auto) Abs Immat Gran (auto) Absolute Neuts (auto) Absolute Nucleated RBC Nucleated RBC % (auto) Sodium Potassium Chloride Carbon Dioxide Anion Gap BUN Creatinine Estim Creat Clear Calc Estimated GFR POC Glucose 157 H 149 H Random Glucose Calcium Phosphorus Magnesium Albumin Random Vancomycin 16.4 06/13/23 06/14/23 06/14/23 21:21 05:35 07:15 WBC 7.1 RBC 2.60 L Hgb 8.0 L Hct 25.5 L MCV 98.1 H MCH 30.8 MCHC 31.4 RDW 14.6 Plt Count 247 MPV 10.2 Immature Gran % (Auto) 3.2 H Neut % (Auto) 80.4 H Lymph % (Auto) 13.0 L [place] % (Auto) 3.1 Eos % (Auto) 0.0 Baso % (Auto) 0.3 Lymph # (Auto) 0.9 L [place] # (Auto) 0.2 Eos # (Auto) 0.0 Baso # (Auto) 0.0 Abs Immat Gran (auto) 0.23 H Absolute Neuts (auto) 5.7 Absolute Nucleated RBC 0.000 Nucleated RBC % (auto) 0.0 Sodium 145 Potassium 3.9 Chloride 106 Carbon Dioxide 29 Anion Gap 14 BUN 20 H Creatinine 0.68 Estim Creat Clear Calc 104.0 Estimated GFR > 60 POC Glucose 191 H 159 H Random Glucose 164 H Calcium 9.3 Phosphorus 2.3 L Magnesium 2.0 Albumin 3.4 L Random Vancomycin Microbiology Microbiology Results: Microbiology 06/02/23 11:46 Blood - Venous Blood Culture - Final No growth after 5 days. 06/02/23 11:46 Blood - Venous Blood Culture - Final No growth after 5 days. 06/02/23 11:28 Lung - Suctioned Gram Stain - Final 06/02/23 11:28 Lung - Suctioned Sputum Culture - Final 05/29/23 11:40 Blood - Venous Blood Culture - Final No growth after 5 days. 05/29/23 11:55 Blood - Venous Blood Culture - Final No growth after 5 days. 05/31/23 00:20 Sputum - Suctioned Gram Stain - Final 05/31/23 00:20 Sputum - Suctioned Sputum Culture - Final 05/27/23 13:59 Blood - Venous Blood Culture - Final No growth after 5 days. 05/27/23 13:55 Blood - Venous Blood Culture - Final Coag negative Staphylococcus 05/28/23 Unknown Urine clean catch - Urine chnadler top Urine Culture - Final Progress Note: A&P Assessment and plan (1) Asystole: Status: Acute (2) Paroxysmal atrial fibrillation: Status: Acute (3) Acute respiratory failure with hypoxia: Status: Acute (4) Acute pulmonary edema: Status: Acute (5) Schizoaffective disorder, bipolar type: Status: Acute Plan Patient is a 62 Y F with metabolic syndrome, non-insulin dependent diabetes mellitus, hypothyroidism, obstructive sleep apnea non-compliant w/ CPAP, bipolar disease, initially presenting to emergency department on 05/26 w/ diarrhea, found to have dehydration, electrolyte abnormalities; on 05/29, developed hypoxia, likely d/t volume overload, c/f aspiration, pneumonia, transferred ICU, intubated, extubated, re-intubated, and extubated; of note, ICU course c/b recurrent astystolic events, s/p pacemaker 05/03 N: no acute issues CV: symptomatic bradycardia/sinus pauses/asystole, s/p pacemaker 05/03; paroxysmal atrial flutter/fibrillation; previously on heparin gtt, now apixaban R: acute hypoxic respiratory failure, likely d/t volume overload, c/f aspiration, pneumonia; intubated/extubated/re-intubated/extubated, improved, re- intubated for pacemaker, extubated; on NC; obstructive sleep apnea GI: regular diet : volume overload, furosemide BID; hypernatremia, improved; to continue to closely monitor electrolytes H: acute anemia, likely d/t frequent phlebotomy; apixaban ID: c/f aspiration, pneumonia; empiric vancomycin, zosyn E: no acute issues; non-insulin dependent diabetes mellitus, hypothyroidism P: bipolar disease; appreciate psychiatry recommendations Quality Stroke Does the patient have a stroke diagnosis?: No VTE Prior VTE?: No VTE Risk Level:: Medical - moderate - high VTE Device Contraindication: Treatment Not Indicated VTE Drug Contraindication: N/A - Med Ordered
[2023-06-14] MEDS: Insulin Lispro 100 UNIT/ML 3 ML VIAL SUBCUT ×3 (07:48→20:38)
--- NOTE | 2023-06-14 07:57 | ECG_ITS ---
Test Reason : QTc Monitoring Blood Pressure : / mmHG Vent. Rate : 093 BPM Atrial Rate : 093 BPM P-R Int : 162 ms QRS Dur : 086 ms QT Int : 318 ms P-R-T Axes : 059 072 003 degrees QTc Int : 395 ms Normal sinus rhythm Cannot rule out Anterior infarct , age undetermined Abnormal ECG When compared with ECG of 12-JUN-2023 08:47, Nonspecific T wave abnormality now evident in Lateral leads Referred By: Chanel Coker Electronically Signed By:Cesar Truong
[2023-06-14] MEDS: Furosemide 20 MG/2 ML VIAL 10 MG IVPUSH ×2 (08:00→17:04)
[2023-06-14] MEDS: Apixaban 5 MG TABLET PO ×2 (08:00→20:26)
[2023-06-14] MEDS: Amiodarone HCL 200 MG TABLET 400 MG PO ×2 (08:00→20:25)
[2023-06-14] MEDS: 0.9 % Sodium Chloride Flush 3 ML SYRINGE IVFLUSH ×2 (08:01→20:29)
[2023-06-14] MEDS: Potassium Phosphate/NS 15 MMOL/250 ML PLAST..BAG 62.5 MMOL IV (08:01)
[2023-06-14] MEDS: Famotidine/PF 20 MG/2 ML VIAL IVPUSH (08:01)
[2023-06-14] MEDS: Valproic Acid (as Sodium Salt) 750 MG in Dextrose 5 % 50 ML 57.5 MG IV (08:07)
[2023-06-14 11:19] LABS: Glucose, Whole Blood 191 mg/dL (60-115)
[2023-06-14] MEDS: vancomycin HCL 750 MG in 0.9 % Sodium Chloride 250 ML 265 MG IV (11:20)
--- NOTE | 2023-06-14 12:41 | P.EN_ITS ---
Event Note Date of Service: 06/14/23 Event Note: Patient is a 62 Y F with metabolic syndrome, non-insulin dependent diabetes mellitus, hypothyroidism, obstructive sleep apnea non-compliant w/ CPAP, bipolar disease, initially presenting to emergency department on 05/26 w/ diarrhea, found to have dehydration, electrolyte abnormalities; on 05/29, developed hypoxia, likely d/t volume overload, c/f aspiration, pneumonia, transferred ICU, intubated, extubated, re-intubated, and extubated; of note, ICU course c/b re current astystolic events, s/p pacemaker 06/11 Symptomatic bradycardia/sinus pauses/asystole Status post pacemaker, functioning properly on interrogation started on amiodarone 400 bid, likely x 2 weeks (end 06/26), then 200 mg daily Paroxysmal atrial fibrillation/atrial flutter Previously on heparin drip, now on apixaban Acute hypoxic respiratory failure due to fluid overload and aspiration pneumonia Initially on high-flow and then requiring intubation x2 Echocardiogram with EF of 35-40% with moderate global hypokinesis Continue furosemide All cultures negative, leukocytosis resolved Has completed course of antibiotics, we will stop vanco On 2 L supplemental oxygen, wean as tolerated Anemia stool occult for 06/11 negative, no evidence of acute blood loss ?due to acute illness, frequent phlebotomy follow CBC Mood/bipolar d/o Previously on numerous psychiatric meds. Patient has extensive psychiatric history with multiple inpatient hospitalizations. We will reconsult psych team for assistance in medication management Currently on Diabetes SSI, POCs ada diet Hypothyroidism Continue thyroid replacement HTN previously on norvasc 2.5, toprol xl 25 DC in ICU Follow blood pressure closely, resume Norvasc as needed HLD previously on lipitor 40 mg, resume on discharge Transaminitis present on admission Hepatitis panel negative resolved Pulmonary nodule Incidental note of 6 mm left lower lobe pulmonary nodule-will need outpatient follow-up HCP activated. Brother is HCP DVT prophylaxis-apixaban code status - DNR/DNI Time Spent With Patient Time: Total time managing care of this patient today ____ minutes.
[2023-06-14 15:47] LABS: Glucose, Whole Blood 136 mg/dL (60-115)
[2023-06-14] MEDS: Divalproex Sodium ER 250 MG TAB.ER.24H 750 MG PO (20:25)
[2023-06-14] MEDS: Acetaminophen 325 MG TABLET 975 MG PO (20:28)
[2023-06-14 20:38] LABS: Glucose, Whole Blood 160 mg/dL (60-115)
[2023-06-15] VITALS (9 sets, daily range): BP systolic 122–169; BP diastolic 60–70; PULSE 78–85; RESP 17–20; TEMP 36.1–36.8; O2SAT 92–96; BMI 40.0
--- NOTE | 2023-06-15 06:00 | ECG_ITS ---
Test Reason : qtc check Blood Pressure : / mmHG Vent. Rate : 089 BPM Atrial Rate : 089 BPM P-R Int : 174 ms QRS Dur : 086 ms QT Int : 362 ms P-R-T Axes : 059 057 037 degrees QTc Int : 440 ms Normal sinus rhythm with sinus arrhythmia Normal ECG When compared with ECG of 14-JUN-2023 14:09, No significant change was found Referred By: Lotus Bailey Electronically Signed By:Cesar Truong
[2023-06-15 06:22] LABS: MANUAL DIFF FLAG NO
[2023-06-15 06:24] LABS: Basophils Percent Auto 0.4 % (0-2); Eosinophils Absolute Auto 0.2 X10*3/uL (0.0-0.4); Eosinophils Percent Auto 2.6 % (0-4); Hematocrit 25.7 % (37.0-47.0); Hemoglobin 7.7 g/dl (12.0-16.0); Imm Gran Abs Auto 0.26 X10*3/uL (0.00-0.03); Lymphocytes Absolute Auto 2.4 X10*3/uL (1.2-4.9); Lymphocytes Percent Auto 27.8 % (20-40); Mean Corpuscular Hemoglobin 30.6 pg (27.0-33.0); Mean Platelet Volume 9.7 fL (9.4-12.3); Monocytes Absolute Auto 0.7 X10*3/uL (0.1-1.2); Monocytes Percent Auto 8.4 % (2-11); Neutrophils Percent Auto 57.8 % (45-73); Platelet Count 207 X10*3/uL (160-400); Red Blood Count 2.52 X10*6/uL (4.20-5.50); Red Cell Distribution Width 15.9 % (11.0-16.0); White Blood Count 8.6 X10*3/uL (4.8-10.8)
[2023-06-15] MEDS: Thyroid,Pork 30 MG TABLET 120 MG PO (06:33)
[2023-06-15 06:39] LABS: Anion Gap 15 (12-20); Blood Urea Nitrogen 23 mg/dL (9-16); Calcium 8.8 mg/dL (8.4-10.2); Carbon Dioxide 31 mmol/L (22-29); Chloride 107 mmol/L (96-108); Creatinine Clr Calc Pharmacy 102.4; Estimated Glomerular Filt Rate > 60; Glucose Random 126 mg/dL (60-115); Phosphorus 3.1 mg/dL (2.7-4.5); Potassium 3.8 mmol/L (3.3-5.1); Sodium 149 mmol/L (135-145)
[2023-06-15 07:18] LABS: Glucose, Whole Blood 129 mg/dL (60-115)
[2023-06-15 08:33] LABS: Iron 55 mcg/dL (30-160); Percent Iron Saturation 27 % (15-50); Total Iron Binding Capacity 203 mcg/dL (228-428); Unsaturated Iron Binding 148 ug/dL
[2023-06-15] MEDS: Apixaban 5 MG TABLET PO ×2 (09:23→21:49)
[2023-06-15] MEDS: Furosemide 20 MG/2 ML VIAL 10 MG IVPUSH ×2 (09:23→17:26)
[2023-06-15] MEDS: Divalproex Sodium ER 250 MG TAB.ER.24H 750 MG PO ×2 (09:23→21:49)
[2023-06-15] MEDS: 0.9 % Sodium Chloride Flush 3 ML SYRINGE IVFLUSH ×3 (09:23→21:56)
[2023-06-15] MEDS: Amiodarone HCL 200 MG TABLET 400 MG PO ×2 (09:23→21:49)
--- NOTE | 2023-06-15 10:08 | PM.PNCARD ---
Subjective Subjective Date of Service: 06/15/23 Principal diagnosis: Asystole, tachyarrhythmias, hypotension Interval history: Seen and examined at bedside. Denying any active symptoms. She is on amiodarone for paroxysmal atrial fibrillation. Physical Exam Vital Signs: Last Vital Signs Temp 98.2 F 06/15/23 08:00 Pulse 85 06/15/23 08:00 Resp 20 06/15/23 08:00 BP 169/70 H 06/15/23 09:23 Pulse Ox 93 06/15/23 08:00 O2 Del Method Nasal Cannula 06/15/23 08:00 O2 Flow Rate 2 06/15/23 08:00 FiO2 30 06/13/23 08:30 Oxygen Flow Rate 15 05/29/23 06:00 BMI result Body Mass Index 40.0 GENERAL APPEARANCE: in no acute distress, pleasant. NECK: no carotid bruit, no jugular venous distention. SKIN: no suspicious lesions, warm and dry. HEART: no murmurs, regular rate and rhythm. LUNGS: Crackles left base.. Left-sided chest wall pacemaker site dressed. ABDOMEN: soft, nontender. EXTREMITIES: no edema. PERIPHERAL PULSES: equal. NEUROLOGIC: No gross deficits, AAO X 3 Objective Labs and Meds 06/15/23 05:58 06/15/23 05:58 Lab results: Laboratory Results - last 24 hr 06/14/23 06/14/23 06/14/23 11:16 15:44 20:34 WBC RBC Hgb Hct MCV MCH MCHC RDW Plt Count MPV Immature Gran % (Auto) Neut % (Auto) Lymph % (Auto) [place] % (Auto) Eos % (Auto) Baso % (Auto) Lymph # (Auto) [place] # (Auto) Eos # (Auto) Baso # (Auto) Abs Immat Gran (auto) Absolute Neuts (auto) Absolute Nucleated RBC Nucleated RBC % (auto) Sodium Potassium Chloride Carbon Dioxide Anion Gap BUN Creatinine Estim Creat Clear Calc Estimated GFR POC Glucose 191 H 136 H 160 H Random Glucose Calcium Phosphorus Magnesium Iron TIBC % Saturation Unsat Iron Binding 06/15/23 06/15/23 05:58 07:11 WBC 8.6 RBC 2.52 L Hgb 7.7 L Hct 25.7 L MCV 102.0 H MCH 30.6 MCHC 30.0 L RDW 15.9 Plt Count 207 MPV 9.7 Immature Gran % (Auto) 3.0 H Neut % (Auto) 57.8 Lymph % (Auto) 27.8 [place] % (Auto) 8.4 Eos % (Auto) 2.6 Baso % (Auto) 0.4 Lymph # (Auto) 2.4 [place] # (Auto) 0.7 Eos # (Auto) 0.2 Baso # (Auto) 0.0 Abs Immat Gran (auto) 0.26 H Absolute Neuts (auto) 5.0 Absolute Nucleated RBC 0.000 Nucleated RBC % (auto) 0.0 Sodium 149 H Potassium 3.8 Chloride 107 Carbon Dioxide 31 H Anion Gap 15 BUN 23 H Creatinine 0.69 Estim Creat Clear Calc 102.4 Estimated GFR > 60 POC Glucose 129 H Random Glucose 126 H Calcium 8.8 Phosphorus 3.1 Magnesium 2.0 Iron 55 TIBC 203 L % Saturation 27 Unsat Iron Binding 148 Imaging Radiologist's impression: Impressions Guidance Fluoroscopy 06/12/23 16:40 IMPRESSION: Fluoroscopy and spot films provided during pacemaker insertion. Progress Note: A&P Assessment and plan (1) High degree atrioventricular block: Status: Acute (2) Paroxysmal atrial fibrillation: Status: Acute Plan [age] year female who is status post permanent pacemaker placement for high-degree AV block. She also has episodes of paroxysmal atrial fibrillation and started on amiodarone 400 mg twice a day. Clinically stable. Continue amiodarone and Eliquis for anticoagulation. Blood pressure is elevated and amlodipine should be resumed at 2.5 mg daily and titrated based on blood pressures. She was on multiple psych meds before and we have to see interactions with amiodarone before resuming them. Can resume metoprolol orally also. Change Lasix to oral 20 mg daily. Thank you for allowing me to participate in the care of your patient. Please feel free to contact me if you have any questions. Time Spent With Patient Time: Total time managing care of this patient today ____ minutes. Progress Note: Quality Stroke Does the patient have a stroke diagnosis?: No Procedures Date of Service Date of Service: 06/15/23
--- NOTE | 2023-06-15 11:32 | P.PNIM_ITS ---
Subjective Subjective Date of Service: 06/15/23 Physical Exam 2 Vital Signs: Vital Signs: Last Vital Signs Temp 98.2 F 06/15/23 08:00 Pulse 85 06/15/23 08:00 Resp 20 06/15/23 08:00 BP 169/70 H 06/15/23 09:23 Pulse Ox 93 06/15/23 08:00 O2 Del Method Nasal Cannula 06/15/23 08:00 O2 Flow Rate 2 06/15/23 08:00 FiO2 30 06/13/23 08:30 Oxygen Flow Rate 15 05/29/23 06:00 BMI result Body Mass Index 40.0 Objective Data Active Medications Acetaminophen (Acetaminophen 325 Mg Tablet) 975 mg PO Q6H PRN PRN Reason: Fever >101 Last Admin: 06/14/23 20:28 Dose: 975 mg Documented By: ARA Al Hydroxide/Mg Hydroxide (Magnesium Hydrox/Alum Hydrox 30 Ml Oral.Susp) 30 ml PO Q6H PRN PRN Reason: Heartburn/Nausea Last Admin: 05/29/23 05:11 Dose: 30 ml Documented By: TY Amiodarone HCl (Amiodarone Hcl 200 Mg Tablet) 400 mg PO BID [facility] Last Admin: 06/15/23 09:23 Dose: 400 mg Documented By: THERESA Apixaban (Apixaban 5 Mg Tablet) 5 mg PO BID [facility] Last Admin: 06/15/23 09:23 Dose: 5 mg Documented By: THERESA Divalproex Sodium (Divalproex Sodium Er 250 Mg Tab.Er.24h) 750 mg PO BID [facility] Last Admin: 06/15/23 09:23 Dose: 750 mg Documented By: THERESA Furosemide (Furosemide 20 Mg/2 Ml Vial) 10 mg IVPUSH BID@0900,1800 [facility]; Protocol Last Admin: 06/15/23 09:23 Dose: 10 mg Documented By: THERESA Glucose (Glucose Gel 15 Gm Gel..Gram.) 15 gm PO Q15M PRN; Protocol PRN Reason: per Hypoglycemia Standing Ord. Dextrose (D10) 250 mls @ 750 mls/hr IV Q15M PRN; Protocol PRN Reason: per Hypoglycemia Standing Ord. Insulin Human Lispro (Insulin Lispro 100 Unit/Ml 3 Ml Vial) 0 unit SUBCUT QIDACHS [facility]; Protocol Last Admin: 06/15/23 07:48 Dose: Not Given Documented By: THERESA Non-Admin Reason: No Insulin Coverage Ondansetron HCl (Ondansetron Hcl 4 Mg/2 Ml Vial) 4 mg IVPUSH Q8H PRN PRN Reason: Nausea and Vomiting Sodium Chloride (0.9 % Sodium Chloride Flush 3 Ml Syringe) 3 ml IVFLUSH QSHIFT [facility] Last Admin: 06/15/23 09:23 Dose: 3 ml Documented By: THERESA Thyroid (Thyroid,Pork 30 Mg Tablet) 120 mg PO DAILY@629 [facility] Last Admin: 06/15/23 06:33 Dose: 120 mg Documented By: ARA Labs 06/15/23 05:58 06/15/23 05:58 Labs: Laboratory Results - last 24 hr 06/14/23 06/14/23 06/15/23 15:44 20:34 05:58 MCV 102.0 H MCH 30.6 MCHC 30.0 L RDW 15.9 Plt Count 207 MPV 9.7 Immature Gran % (Auto) 3.0 H Neut % (Auto) 57.8 Lymph % (Auto) 27.8 [place] % (Auto) 8.4 Eos % (Auto) 2.6 Baso % (Auto) 0.4 Lymph # (Auto) 2.4 [place] # (Auto) 0.7 Eos # (Auto) 0.2 Baso # (Auto) 0.0 Abs Immat Gran (auto) 0.26 H Absolute Neuts (auto) 5.0 Absolute Nucleated RBC 0.000 Nucleated RBC % (auto) 0.0 Anion Gap 15 Estim Creat Clear Calc 102.4 Estimated GFR > 60 POC Glucose 136 H 160 H Random Glucose 126 H Calcium 8.8 Phosphorus 3.1 Magnesium 2.0 Iron 55 TIBC 203 L % Saturation 27 Unsat Iron Binding 148 06/15/23 07:11 MCV MCH MCHC RDW Plt Count MPV Immature Gran % (Auto) Neut % (Auto) Lymph % (Auto) [place] % (Auto) Eos % (Auto) Baso % (Auto) Lymph # (Auto) [place] # (Auto) Eos # (Auto) Baso # (Auto) Abs Immat Gran (auto) Absolute Neuts (auto) Absolute Nucleated RBC Nucleated RBC % (auto) Anion Gap Estim Creat Clear Calc Estimated GFR POC Glucose 129 H Random Glucose Calcium Phosphorus Magnesium Iron TIBC % Saturation Unsat Iron Binding Assessment and Plan (1) Persistent atrial fibrillation: Status: Acute Plan Patient is a 62 Y F with metabolic syndrome, non-insulin dependent diabetes mellitus, hypothyroidism, obstructive sleep apnea non-compliant w/ CPAP, bipolar disease, initially presenting to emergency department on 05/26 w/ diarrhea, found to have dehydration, electrolyte abnormalities; on 05/29, developed hypoxia, likely d/t volume overload, c/f aspiration, pneumonia, transferred ICU, intubated, extubated, re-intubated, and extubated; of note, ICU course c/b recurrent astystolic events, s/p pacemaker 06/11 Symptomatic bradycardia/sinus pauses/asystole Status post pacemaker, functioning properly on interrogation started on amiodarone 400 bid, likely x 2 weeks (end 06/26), then 200 mg daily Paroxysmal atrial fibrillation/atrial flutter Previously on heparin drip, now on apixaban amiodarone Acute hypoxic respiratory failure due to fluid overload and aspiration pneumonia Initially on high-flow and then requiring intubation x2 Echocardiogram with EF of 35-40% with moderate global hypokinesis Continue furosemide All cultures negative, leukocytosis resolved Has completed course of antibiotics, we will stop vanco On 2 L supplemental oxygen, wean as tolerated Anemia stool occult for / negative, no evidence of acute blood loss ?due to acute illness, frequent phlebotomy follow CBC Normal Iron levels GI consult pending Mood/bipolar d/o Previously on numerous psychiatric meds. Patient has extensive psychiatric history with multiple inpatient hospitalizations. We will reconsult psych team for assistance in medication management Normal QTC interval Diabetes type 2 SSI, POCs ada diet Hypothyroidism Continue thyroid replacement HTN previously on norvasc 2.5, toprol xl 25 DC in ICU Follow blood pressure closely, resume Norvasc as needed HLD previously on lipitor 40 mg, resume on discharge Transaminitis present on admission Hepatitis panel negative resolved Pulmonary nodule Incidental note of 6 mm left lower lobe pulmonary nodule-will need outpatient follow-up HCP activated. Brother is HCP DVT prophylaxis-apixaban Attending Dr. Mckenna code status - DNR/DNI Quality Stroke Does the patient have a stroke diagnosis?: No VTE Prior VTE?: No VTE Risk Level:: Medical - moderate - high VTE Device Contraindication: Treatment Not Indicated VTE Drug Contraindication: N/A - Med Ordered
[2023-06-15 11:43] LABS: Glucose, Whole Blood 142 mg/dL (60-115)
--- NOTE | 2023-06-15 11:57 | MHC.SL.SWA ---
Speech Pathologist Impression: WFL Dysphasia Diet Status: Continue on REGULAR texture diet with THIN liquids, Pills whole with liquid or puree (as preferred by patient). Liquid Consistency and Strategies for Safe Swallow: Liquid Intake Recommendation: Thin Liquid Intake Strategies: Small Sips Solid Food Consistency: Dietary Recommendations: Regular Additional Modifications to Solid Foods: All aspects of swallow deemed WFL. Please re-refer with any changes or further concern. Oral Medication Intake: Whole with Liquid Please contact the pharmacy regarding appropriate crushable or liquid drug formulations that are available whenever modified delivery is recommended. Compensatory Strategies and Precautions to be Taken for Safe Swallow: Sitting Upright (90 deg) Small Bites and Sips Alternate Liquids/Solids Rate of Ingestion Change Supervision While Eating and Drinking for Safe Swallow: Intermittent Supervision Foods to Avoid: Avoid tough difficult to chew solids or too large pieced of food. Swallowing Recommended Treatments: Compens. Strategy Educat. Recommendation for Speech: D/C Wooden Fence Erector Clinican/Clinical Fellow: No Supervisory Statement: I have reviewed and agree with the student/clinical fellow's documentation: N/A Speech Language Pathologist: Tess Vidal M.A., CCC-CELL[employer] P[employer]ER
--- NOTE | 2023-06-15 12:05 | MHC.CM.PN ---
CM following for d.c planning needs. Per rounds CARE Team eval when pt is medically stable.
--- NOTE | 2023-06-15 12:57 | MHC.CLN ---
F/U PT TRANSFERRED TO MEDICAL FLOOR DIET ADVANCED TO REGULAR PER EYEGL[employer] C[employer]TER RECOMMEND 1800DM IN ADDITION TO EYEGLASS CUTTER DIET RECOMMENDATIONS PT WITH INCREASED NUTRITION RISK R/T PRESSURE INJURIES RECOMMEND ADDING GELATEIN WITH MEALS TO PROMOTE WOUND HEALING SUPP TO PROVIDE 480KCALS, 60G PROTEIN MONITOR PO INTAKE AND ENCOURAGE SUPPLEMENT
[2023-06-15 16:07] LABS: Glucose, Whole Blood 156 mg/dL (60-115)
[2023-06-15] MEDS: Insulin Lispro 100 UNIT/ML 3 ML VIAL SUBCUT (16:19)
--- NOTE | 2023-06-15 17:34 | PM.EVENT ---
Event Note Date of Service: 06/15/23 Event Note: GI Consult-Full note dictated-History from patient(limited), her RN, and the EMR Imp: 63 yo female with a lengthy and complicated ICU course with an associated anemia. She has not had any gross evidence of bleeding, has normal Iron studies, and has been Heme negative x 1. As best I can see she has not had any transfusions. Other than anorexia and some nausea she denies any localizing GI sx. I suspect her anemia is not related to any active GI process nor GI bleeding. This seems c/w some anemia from her chronic illnesses and her lengthy hospitalization. Rec: I would continue to monitor her Hgb. I do not think she needs any endoscopic evaluation. I would add an oral PPI for prophylaxis in regard to her chronic illnesses and anticoagulation. Please call if anything changes and I can be of further assistance. Thanks Time Spent With Patient Time: Total time managing care of this patient today ____ minutes.
[2023-06-15 20:11] LABS: Glucose, Whole Blood 131 mg/dL (60-115)
[2023-06-15] MEDS: Acetaminophen 325 MG TABLET 975 MG PO (21:54)
[2023-06-16] VITALS (8 sets, daily range): BP systolic 125–149; BP diastolic 62–69; PULSE 80–93; RESP 16–20; TEMP 36.3–37.2; O2SAT 91–94; BMI 40.5
[2023-06-16] MEDS: Thyroid,Pork 30 MG TABLET 120 MG PO (05:52)
[2023-06-16 06:43] LABS: Anion Gap 14 (12-20); Blood Urea Nitrogen 17 mg/dL (9-16); Carbon Dioxide 33 mmol/L (22-29); Chloride 103 mmol/L (96-108); Creatinine Clr Calc Pharmacy 114.2; Estimated Glomerular Filt Rate > 60; Glucose Random 132 mg/dL (60-115); Magnesium 1.9 mg/dL (1.6-2.6); Phosphorus 3.2 mg/dL (2.7-4.5); Potassium 3.6 mmol/L (3.3-5.1); Sodium 146 mmol/L (135-145)
[2023-06-16 07:00] LABS: Glucose, Whole Blood 128 mg/dL (60-115)
[2023-06-16 08:33] LABS: Hematocrit 26.9 % (37.0-47.0); Hemoglobin 8.4 g/dl (12.0-16.0)
[2023-06-16] MEDS: Apixaban 5 MG TABLET PO ×2 (08:47→21:16)
[2023-06-16] MEDS: Furosemide 20 MG/2 ML VIAL 10 MG IVPUSH ×2 (08:47→17:25)
[2023-06-16] MEDS: Amiodarone HCL 200 MG TABLET 400 MG PO ×2 (08:48→21:16)
[2023-06-16] MEDS: Divalproex Sodium ER 250 MG TAB.ER.24H 750 MG PO ×2 (08:48→21:16)
[2023-06-16] MEDS: 0.9 % Sodium Chloride Flush 3 ML SYRINGE IVFLUSH ×3 (08:49→21:16)
--- NOTE | 2023-06-16 10:03 | CONS_ITS ---
DATE OF SERVICE: 06/15/2023 REASON FOR CONSULTATION: Anemia. HISTORY OF PRESENT ILLNESS: This has been obtained from the patient, her nurse, and the medical record. The patient is a 63-year-old female who was admitted to the hospital on May 26 for systemic symptoms of nausea, diarrhea, and some anorexia. She has had a complicated hospital course, requiring a prolonged stay in the ICU, which included 2 separate intubations with subsequent extubation. I have been asked to see her regarding anemia. The patient is not the best historian, but does not describe any particular GI symptoms at the present time. She has been tolerating liquids. She denies any chronic GI complaints at home. There has been no report of GI bleeding by the nursing staff nor from what I can see in the record. She has had one documented Hemoccult negative stool specimen. As best I can see, she has not need any blood transfusions. Her initial hemoglobin on admission was 10.8. She developed respiratory distress on the night of admission and was transferred to the ICU. She was just discharged from the ICU to the medical floor on June 13. Her hemoglobin yesterday was 8.0 and today is 7.7. Her hemoglobin has been running in this range since June 06. Again, I do not see any record of blood transfusions during the admission. MEDICATIONS: Include amiodarone, Eliquis, Depakote, Lasix, insulin, Zofran, and thyroid. PAST MEDICAL HISTORY: Diabetes mellitus. Hypothyroidism. Sleep apnea. Bipolar disease. Atrial fibrillation. Hypothyroidism. Hypertension. Hyperlipidemia. PTSD. Cholecystectomy. SOCIAL HISTORY: She does not smoke nor use any alcohol. FAMILY HISTORY: Noncontributory. PHYSICAL EXAMINATION: GENERAL: The patient is a pleasant, alert, comfortable-appearing female. SKIN: Warm and dry. HEENT: Anicteric sclerae. NECK: Supple. CARDIAC: Normal S1, S2. ABDOMEN: Soft, nondistended and nontender. LABORATORY DATA: White blood cell count 8.6, hemoglobin 7.7, MCV 102, and platelets 207,000. PT was 14.7 with INR 1.2 on June 10. Sodium 149, potassium 3.8, BUN 23, creatinine 0.7. Iron 55, iron saturation 27%. Stool was Hemoccult negative. This was a specimen from June 11. Abdominal ultrasound on June 02, was negative for any sign of biliary obstruction. IMPRESSION: In regard to the patient's anemia, this seems to be quite chronic at this point, I suspect it is multifactorial in relation to her chronic illnesses and her prolonged hospitalization. Based on the hemoccult negative stool, no particular GI symptoms, no obvious sign of GI bleeding, and normal iron studies, I would hold off on any type of endoscopic intervention, particularly in light of her underlying medical issues as well. At this point, the only intervention I would recommend would be that of adding a PPI for prophylaxis given her current use of blood thinners and chronic illnesses. I will continue her diet as tolerated. I will continue to monitor her hemoglobin and transfuse to maintain hemoglobin of at least 8 or 9. At this point, I will be available if need be, but please contact me if anything changes and I can be of any further assistance. Thank you for the consultation. MD TIEN Handley/SYED / [phone]
[2023-06-16] MEDS: Omeprazole 20 MG CAPSULE.DR PO (10:18)
--- NOTE | 2023-06-16 10:25 | P.PNIM_ITS ---
Subjective Subjective Date of Service: 06/16/23 Review of Systems Follow up bradycardia , afib feeling better no sob Physical Exam 2 Vital Signs: Vital Signs: Last Vital Signs Temp 97.4 F 06/16/23 07:09 Pulse 80 06/16/23 07:09 Resp 20 06/16/23 07:09 BP 144/65 H 06/16/23 09:24 Pulse Ox 91 L 06/16/23 09:24 O2 Del Method Nasal Cannula 06/16/23 08:47 O2 Flow Rate 1 06/16/23 08:47 FiO2 30 06/13/23 08:30 Oxygen Flow Rate 15 05/29/23 06:00 BMI result Body Mass Index 40.5 Appearing in no acute distress lung sounds are clear to auscultation heart regular rate rhythm, clear S1, S2 positive bowel sounds, abdomen is soft, nontender neuro patient is alert x3, no focal deficits Objective Data Active Medications Acetaminophen (Acetaminophen 325 Mg Tablet) 975 mg PO Q6H PRN PRN Reason: Fever >101 Last Admin: 06/15/23 21:54 Dose: 650 mg Documented By: SHAUN Comments: approved admin for [facility] Al Hydroxide/Mg Hydroxide (Magnesium Hydrox/Alum Hydrox 30 Ml Oral.Susp) 30 ml PO Q6H PRN PRN Reason: Heartburn/Nausea Last Admin: 05/29/23 05:11 Dose: 30 ml Documented By: TY Amiodarone HCl (Amiodarone Hcl 200 Mg Tablet) 400 mg PO BID [facility] Last Admin: 06/16/23 08:48 Dose: 400 mg Documented By: THERESA Apixaban (Apixaban 5 Mg Tablet) 5 mg PO BID [facility] Last Admin: 06/16/23 08:47 Dose: 5 mg Documented By: THERESA Divalproex Sodium (Divalproex Sodium Er 250 Mg Tab.Er.24h) 750 mg PO BID [facility] Last Admin: 06/16/23 08:48 Dose: 750 mg Documented By: THERESA Furosemide (Furosemide 20 Mg/2 Ml Vial) 10 mg IVPUSH BID@0900,1800 [facility]; Protocol Last Admin: 06/16/23 08:47 Dose: 10 mg Documented By: THERESA Glucose (Glucose Gel 15 Gm Gel..Gram.) 15 gm PO Q15M PRN; Protocol PRN Reason: per Hypoglycemia Standing Ord. Dextrose (D10) 250 mls @ 750 mls/hr IV Q15M PRN; Protocol PRN Reason: per Hypoglycemia Standing Ord. Insulin Human Lispro (Insulin Lispro 100 Unit/Ml 3 Ml Vial) 0 unit SUBCUT QIDACHS [facility]; Protocol Last Admin: 06/16/23 07:58 Dose: Not Given Documented By: THERESA Non-Admin Reason: No Insulin Coverage Omeprazole (Omeprazole 20 Mg Capsule.) 20 mg PO DAILY@629 [facility] Last Admin: 06/16/23 10:18 Dose: 20 mg Documented By: THERESA Ondansetron HCl (Ondansetron Hcl 4 Mg/2 Ml Vial) 4 mg IVPUSH Q8H PRN PRN Reason: Nausea and Vomiting Sodium Chloride (0.9 % Sodium Chloride Flush 3 Ml Syringe) 3 ml IVFLUSH QSHIFT [facility] Last Admin: 06/16/23 08:49 Dose: 3 ml Documented By: THERESA Thyroid (Thyroid,Pork 30 Mg Tablet) 120 mg PO DAILY@629 [facility] Last Admin: 06/16/23 05:52 Dose: 120 mg Documented By: SHAUN Labs 06/16/23 08:09 06/16/23 06:09 Labs: Laboratory Results - last 24 hr 06/15/23 06/15/23 06/15/23 11:24 15:59 20:06 Anion Gap Estim Creat Clear Calc Estimated GFR POC Glucose 142 H 156 H 131 H Random Glucose Calcium Phosphorus Magnesium 06/16/23 06/16/23 06:09 06:56 Anion Gap 14 Estim Creat Clear Calc 114.2 Estimated GFR > 60 POC Glucose 128 H Random Glucose 132 H Calcium 9.0 Phosphorus 3.2 Magnesium 1.9 Assessment and Plan (1) Persistent atrial fibrillation: Status: Acute Plan Patient is a 62 Y F with metabolic syndrome, non-insulin dependent diabetes mellitus, hypothyroidism, obstructive sleep apnea non-compliant w/ CPAP, bipolar disease, initially presenting to emergency department on 05/26 w/ diarrhea, found to have dehydration, electrolyte abnormalities; on 05/29, developed hypoxia, likely d/t volume overload, c/f aspiration, pneumonia, transferred ICU, intubated, extubated, re-intubated, and extubated; of note, ICU course c/b recurrent astystolic events, s/p pacemaker 06/11 Acute hypoxic respiratory failure due to fluid overload and aspiration pneumonia Initially on high-flow and then requiring intubation x2 Echocardiogram with EF of 35-40% with moderate global hypokinesis Continue furosemide All cultures negative, leukocytosis resolved Has completed course of antibiotics On 2 L supplemental oxygen, wean as tolerated repeat CXR to assess pneumonia Symptomatic bradycardia/sinus pauses/asystole Status post pacemaker, functioning properly on interrogation started on amiodarone 400 bid, likely x 2 weeks (end 06/26), then 200 mg daily Paroxysmal atrial fibrillation/atrial flutter Previously on heparin drip, now on apixaban continue amiodarone Anemia HH better today stool occult for 06/11 negative, no evidence of acute blood loss due to acute illness follow CBC Normal Iron levels GI consult> no need for scope at this time Mood/bipolar Previously on numerous psychiatric meds. Patient has extensive psychiatric history with multiple inpatient hospitalizations. We will reconsult psych team for assistance in medication management Normal QTC interval Diabetes type 2 SSI, POCs ada diet Hypothyroidism Continue thyroid replacement HTN previously on norvasc 2.5, toprol xl 25 stoppe din ICU Follow blood pressure closely, resume Norvasc as needed HLD previously on lipitor 40 mg, resume on discharge Transaminitis present on admission Hepatitis panel negative resolved Pulmonary nodule Incidental note of 6 mm left lower lobe pulmonary nodule-will need outpatient follow-up HCP activated. Brother is HCP DVT prophylaxis-apixaban Attending Dr. Mckenna code status - DNR/DNI Quality Stroke Does the patient have a stroke diagnosis?: No VTE Prior VTE?: No VTE Risk Level:: Medical - moderate - high VTE Device Contraindication: Treatment Not Indicated VTE Drug Contraindication: N/A - Med Ordered
[2023-06-16 10:51] LABS: Glucose, Whole Blood 149 mg/dL (60-115)
--- NOTE | 2023-06-16 14:38 | MHC.CM.PN ---
EMR REVIEWNoa, P.T. RECOMMENDING STR, BROAD SNF REFERRAL PLACED, ANTIC PT WILL ALSO NEED PSYCH/CARE TEAM PRIOR TO DC, CM AWAITING BED OFFER AND WILL CONT TO FOLLOW.
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
--- NOTE | 2023-06-16 16:18 | MHC.CM.PN ---
EMR REVIEWED, CM MET W/PT TO DISCUSS DISPO P.T. REC'S STR, PT AGREEABLE AND REPORTS SHE DOES NOT [facility] HER SISTER WAS THERE, PT OPEN TO [facility] AND WILL NEED A LESS THAN 30DAY D/T PSYCHIATRIC DX'S, CM WILL CONT TO FOLLOW DC NEEDS.
[2023-06-16 16:41] LABS: Glucose, Whole Blood 143 mg/dL (60-115)
[2023-06-16] MEDS: Acetaminophen 325 MG TABLET 650 MG PO (17:25)
[2023-06-16 19:35] LABS: Glucose, Whole Blood 135 mg/dL (60-115)
[2023-06-16] MEDS: Magnesium Hydrox/Alum Hydrox 30 ML ORAL.SUSP PO (21:15)
[2023-06-16] MEDS: fluPHENAZine HCl 2.5 MG TABLET PO (21:16)
[2023-06-16] MEDS: Albuterol/Iprat 2.5/0.5MG 3 ML AMPUL.NEB INHALE (23:01)
[2023-06-17 00:23] VITALS: PULSE 77; RESP 18
[2023-06-17 03:33] VITALS: BP 140/65; PULSE 89; RESP 16; TEMP 36.3; O2SAT 94
[2023-06-17] MEDS: Omeprazole 20 MG CAPSULE.DR PO (05:45)
[2023-06-17] MEDS: Thyroid,Pork 30 MG TABLET 120 MG PO (05:46)
[2023-06-17 06:00] VITALS: BMI 40.5
[2023-06-17 06:53] LABS: Glucose, Whole Blood 132 mg/dL (60-115)
[2023-06-17 07:03] VITALS: BP 137/62; PULSE 79; RESP 20; TEMP 37; O2SAT 94
[2023-06-17 07:25] LABS: Anion Gap 13 (12-20); Blood Urea Nitrogen 14 mg/dL (9-16); Carbon Dioxide 32 mmol/L (22-29); Chloride 101 mmol/L (96-108); Creatinine Clr Calc Pharmacy 119.8; Estimated Glomerular Filt Rate > 60; Glucose Random 141 mg/dL (60-115); Magnesium 1.9 mg/dL (1.6-2.6); Phosphorus 2.6 mg/dL (2.7-4.5); Potassium 3.7 mmol/L (3.3-5.1); Sodium 142 mmol/L (135-145); Valproate 39.6 mcg/mL (50.0-100.0)
[2023-06-17] MEDS: fluPHENAZine HCl 2.5 MG TABLET PO (09:32)
[2023-06-17] MEDS: Amiodarone HCL 200 MG TABLET 400 MG PO (09:32)
[2023-06-17 09:33] VITALS: BP 140/63
[2023-06-17] MEDS: Divalproex Sodium ER 250 MG TAB.ER.24H 750 MG PO (09:33)
[2023-06-17] MEDS: Apixaban 5 MG TABLET PO (09:33)
[2023-06-17] MEDS: Furosemide 20 MG/2 ML VIAL 10 MG IVPUSH (09:33)
[2023-06-17] MEDS: 0.9 % Sodium Chloride Flush 3 ML SYRINGE IVFLUSH ×2 (09:34→16:20)
--- NOTE | 2023-06-17 09:46 | MHC.CM.PN ---
Second IMM given 06/15. Pt is medically cleared for discharge to [facility] for STR. Pt to transport via [facility] at 4pm.
--- NOTE | 2023-06-17 10:24 | MHC.CLN ---
F/U PO INTAKE REMAINS VARIABLE DIET RX: 1800DM-APPROPRIATE PT RECEIVING GELATEIN WITH MEALS TO PROMOTE WOUND HEALING SUPP PROVIDES 480KCALS, 60G PROTEIN WITH 100% ACCEPTANCE MONITOR PO INTAKE AND ENCOURAGE SUPPLEMENT
[2023-06-17 10:55] LABS: Glucose, Whole Blood 138 mg/dL (60-115)
[2023-06-17 11:08] VITALS: BP 147/68; PULSE 87; RESP 20; TEMP 36.4; O2SAT 92
--- NOTE | 2023-06-17 11:36 | PM.DS ---
DS: Providers Provider Date of Service: 06/17/23 Date of admission: 05/27/23 21:07 Primary care physician: Khoa Stoner PA-C Consults: 05/29/23 09:34 Consult to Pulmonology Routine Consulting Provider: [facility] Reason for consultation: respiratory failure on high flow, worsening o2 requirements Has provider been notified: No 05/29/23 09:43 Consult for Sitter Routine Reason for consultation: frequent redirection needed keeps taking off high flow Has provider been notified: Yes 06/05/23 13:28 Consult to Cardiology Stat Consulting Provider: [facility] Reason for consultation: sinus pauses and atrial fibrilation with RVR Has provider been notified: No 06/06/23 11:13 Consult to Psychiatry Stat Consulting Provider: Psych Covering Reason for consultation: significant psych issues, extubated just now on multiple home medications 06/07/23 06:35 Consult to Wound Care Routine Reason for consultation: DTI to b/l buttocks 06/14/23 12:40 Consult to Psychiatry Routine Consulting Provider: Psych Covering Reason for consultation: extubated and previously on numerous meds; needs med management/adjustment Has provider been notified: No 06/15/23 11:30 Consult to Gastroenterology Routine Consulting Provider: Trip Galvan Reason for consultation: anemia DS: Diagnosis Discharge Diagnosis (1) Schizoaffective disorder, bipolar type: Status: Acute DS: Summary Hospital Course Hospital Course: History and physical as per admitting provider. Pt is a 62-year-old female with a PMH significant for?HTN, HLD, non insulin-dependent type 2 diabetes, hypothyroidism, RANJANA noncompliant with CPAP, PTSD, and bipolar disorder who presents to the ED for evaluation of nausea, diarrhea, and poor p.o. intake times 2-3 days. Patient is currently receiving psychiatric care at [facility] for acute manic episode in the context of medication noncompliance. Patient is alert and oriented x3, though exhibits flight of ideas during conversation and is sometimes difficult to follow. HPI is thus supplemented by chart and provider review. Patient apparently has been having severe, watery diarrhea x2-3 days with diffuse abdominal pain and nausea but no vomiting. Reports having difficulty walking secondary to weakness due to reduced p.o. intake. Patient claims her symptoms are caused by recently taking liquid Depakote. Denies chest pain/pressure, palpitations. No shortness of breath or difficulty breathing. In the ED pt was febrile up to 102.6, tachycardic up to 121, tachypneic up to 21, with soft BP as low as 87/46, satting as low as 88% on RA. Labs were significant for mild leukocytosis of 11.0, potassium 2.8, lactic acid 2.3 with repeat 1.2, corrected calcium 8.2, magnesium 1.5, AST 46, and albumin 3.1. GI panel negative. C diff pending. Tested negative for flu, RSV, COVID. CXR showed bibasilar atelectasis versus mild inflammatory changes. CT?of abdomen and pelvis found no cause patient's diarrhea and fever, but showed mild splenomegaly, nonobstructing 4 mm renal calculus, colonic diverticulosis, and 6 mm left lower lobe pulmonary nodule. EKG demonstrated sinus tachycardia with no evidence of significant ST elevations or depressions. Pt was treated with ceftriaxone, IVF, acetaminophen, albumin, potassium chloride IV and p.o., and magnesium sulfate. Pt will be admitted to the hospital for treatment and further evaluation of very some electrolyte abnormalities in the setting of intractable diarrhea likely secondary to viral gastroenteritis. 63 year old women admitted with nausea, diarrhea and poor p.o. intake. The patient was transferred [place] [facility] [place], at that time she was being treated for mental illness with history of bipolar disorder and PTSD. 05/29/23 RR called for hypoxemia, tachypnea, shortness of breath, fever. She was noted to have bilateral crackles therefore IV fluids were stopped. She was given a dose of IV Lasix stat and chest x-ray confirmed pulmonary edema with a question of pneumonia. Her ABG showed no respiratory acidosis but significant hypoxia. She was subsequently started on high-flow therapy and started on azithromycin to cover for pneumonia along with ceftriaxone for presumed UTI. On 05/29 she was subsequently transferred to the ICU, she became significantly agitated pulling on high-flow nasal cannula and desaturating to 70% requiring emergent intubation. She was found to have a large amount of secretion around the epiglottis. At the time she was also treated for acute on chronic systolic congestive heart failure with IV diuresis. She was also treated with vasopressor support. Patient was extubated on 06/05 but remained very fragile and was immediate placed on BiPAP support with multiple episodes of desaturation, tachypnea and dyspnea. She had been treated with Precedex, Dilaudid and Versed to control agitation, at this time she was also treated with aggressive diuresis for heart failure. 06/08/2023 patient was intubated again, was experiencing multiple episodes of asystole but patient remained unresponsive with hypoxia in the 70s, patient was bagged but developed PE a, CPR was initiated for a total of 2 rounds, 1 round of epinephrine, bicarbonate, calcium and regained ROSC. Emergency bronchoscopy was performed which was grossly unrevealing. Developed episodes of symptomatic bradycardia with pauses on 06/07/2023 possibly secondary to judicious use of QTC prolonging medications. The patient required CPR for almost 1 minute and and had ROSC subsequently. She was placed on dopamine and was Trend cutaneously paced. 06/12/2023 developed complete heart block and had a successful implantation of dual-chamber pacemaker. She was subsequently extubated on 06/13/2023. Transferred to medical floor on 06/14/2023. She was started on amiodarone 400 mg b.i.d. then 200 mg daily. She was transitioned to apixaban from heparin drip. Echocardiogram showed EF of 35-40% with moderate global hypokinesis. She has made a significant recovery, is awake and alert and ambulating with assistance. Seen by Physical therapy with recommendation for rehab, patient is in agreement and the plan is to transfer to rehab facility today. Other medical issues: Anemia. Stool occult was negative, no evidence of blood loss, likely secondary to acute illness, H&H trending up. Seen and evaluated by Gastroenterology, no need for intervention. Bipolar disorder. Met with psychiatric provider, patient does not require re admission to [facility]. Patient is to continue on Depakote and was started on Prolixin. All of her other psychiatric medications have been stopped. Normal QTC of 440 from EKG on 06/15/2023 Diabetes mellitus type 2. On Trulicity Hyperlipidemia. May continue statin Pulmonary nodule. Incidental finding of 6 mm left lower lobe pulmonary nodule. Will likely need follow-up imaging in 6 months Hypothyroidism. Continue thyroid replacement Less than 30 day stay Time Attestation Discharge Coordination Time (in mins): 60 Quality: Safe Use of Opioids Does Pt have an Active Cancer Diagnosis on the Problem List?: No Quality: Stroke Does the patient have a stroke diagnosis?: No Physical Exam Vital Signs: Vital Signs: Last Vital Signs Temp 97.6 F 06/17/23 11:08 Pulse 87 06/17/23 11:08 Resp 20 06/17/23 11:08 BP 147/68 H 06/17/23 11:08 Pulse Ox 92 06/17/23 11:08 O2 Del Method Nasal Cannula 06/17/23 11:08 O2 Flow Rate 2 06/17/23 11:08 FiO2 30 06/13/23 08:30 Oxygen Flow Rate 15 05/29/23 06:00 BMI result Body Mass Index 40.5 Appearing in no acute distress head is normocephalic atraumatic eyes pupils are PERRLA sclera is anicteric mouth throat mucous membranes are intact and moist neck is supple no lymphadenopathy, no JVD noted lung sounds are clear to auscultation heart regular rate rhythm, clear S1, S2 positive bowel sounds, abdomen is soft, nontender neuro patient is alert x3, no focal deficits DS: Data Data Completed and Pending Labs on day of discharge: Laboratory Results - last 24 hr 06/16/23 06/16/23 06/17/23 16:37 19:27 06:49 Hold Purple Top Sodium Potassium Chloride Carbon Dioxide Anion Gap BUN Creatinine Estim Creat Clear Calc Estimated GFR POC Glucose 143 H 135 H 132 H Random Glucose Calcium Phosphorus Magnesium Valproic Acid 06/17/23 06/17/23 06:53 10:51 Hold Purple Top SEE NOTE Sodium 142 Potassium 3.7 Chloride 101 Carbon Dioxide 32 H Anion Gap 13 BUN 14 Creatinine 0.62 Estim Creat Clear Calc 119.8 Estimated GFR > 60 POC Glucose 138 H Random Glucose 141 H Calcium 9.0 Phosphorus 2.6 L Magnesium 1.9 Valproic Acid 39.6 L Discharge Plan Discharge Anticipated Discharge Date/Time: 06/17/23 11:20 Patient Disposition: Xfer Inpatient Rehab Fac Discharge Diagnosis: Acute hypoxic respiratory failure secondary to fluid overload and aspiration pneumonia, symptomatic bradycardia, sinus pause, asystole Referrals: [facility] [Outside] - 1 Week Khoa Stoner PA-C [Primary Care Provider] - 1 Week Discharge Medications: New fluphenazine HCl 2.5 mg Tablet 2.5 mg PO BID Qty: 60 0RF amiodarone 200 mg Tablet 400 mg PO BID Qty: 74 0RF Rx Instructions: Take 400 mg twice daily for 10 days then 200mg daily omeprazole 20 mg Capsule,Delayed Release(Dr/Ec) 20 mg PO DAILY@0630 Qty: 30 0RF Eliquis 5 mg Tablet 5 mg PO BID Qty: 60 0RF Continued acetaminophen 325 mg Tablet 650 mg PO Q6H PRN (Reason: Pain) divalproex [Depakote] 250 mg Tablet,Delayed Release (Dr/Ec) 250 mg PO BID divalproex [Depakote] 500 mg Tablet,Delayed Release (Dr/Ec) 500 mg PO BID thyroid (pork) [PRODUCTION [employer]ER Thyroid] 120 mg Tablet 120 mg PO DAILY@0630 melatonin 3 mg tablet 9 mg PO BEDTIME PRN (Reason: Insomnia) magnesium hydroxide [Milk of Magnesia] 400 mg/5 mL suspension 30 ml PO BEDTIME PRN (Reason: Constipation) atorvastatin 40 mg Tablet 40 mg PO BEDTIME Trulicity 3 mg/0.5 mL pen injector 3 mg subcut QWEEK Qty: 2 0RF Rx Instructions: Please send to [facility] [place] polyethylene glycol 3350 17 gram Powder In Packet 17 g PO DAILY PRN (Reason: Constipation) Qty: 0 0RF amlodipine 2.5 mg Tablet 2.5 mg PO DAILY Qty: 0 0RF Protocol: Hold for SBP< HOLD for SBP < : 90 aspirin 81 mg Tablet,Delayed Release (Dr/Ec) 81 mg PO DAILY Qty: 0 0RF magnesium oxide 400 mg (241.3 mg magnesium) Tablet 400 mg PO DAILY Qty: 0 0RF furosemide 20 mg Tablet 20 mg PO DAILY Qty: 0 0RF Protocol: Hold for SBP< HOLD for SBP < : 90 metoprolol succinate 25 mg Tablet Extended Release 24 Hr 25 mg PO DAILY Qty: 0 0RF Protocol: Hold for SBP/HR < HOLD for SBP < : 90 HOLD for HR < : 60 ondansetron 4 mg Tablet,Disintegrating 4 mg translingual Q6H PRN (Reason: Nausea) Qty: 0 0RF MAG-AL 200-200 mg/5 mL Suspension 30 ml PO Q6H PRN (Reason: Heartburn/Nausea) Qty: 0 0RF cyanocobalamin (vitamin B-12) [Vitamin B-12] 100 mcg Tablet 100 mcg PO DAILY Qty: 0 0RF cholecalciferol (vitamin D3) [Vitamin D3] 10 mcg (400 unit) Tablet 10 mcg PO DAILY Qty: 0 0RF Discontinued clozapine 100 mg Tablet 100 mg PO BID lorazepam 1 mg tablet 1 mg PO Q4H PRN (Reason: becca) clozapine 50 mg Tablet 50 mg PO BEDTIME carbamazepine [Tegretol XR] 100 mg Tablet Extended Release 12 Hr 300 mg PO DAILY Qty: 0 0RF carbamazepine 200 mg Tablet Extended Release 12 Hr 400 mg PO BEDTIME Qty: 0 0RF benztropine 1 mg Tablet 1 mg PO DAILY Qty: 0 0RF lorazepam 1 mg Tablet 1 mg PO BEDTIME Qty: 0 0RF quetiapine 50 mg Tablet 50 mg PO BID PRN (Reason: becca, agitation) Qty: 0 0RF quetiapine 400 mg Tablet 400 mg PO BEDTIME Qty: 0 0RF Diet: Advance to usual diet Activity on Discharge: As tolerated Stand Alone Forms: Patient Portal Discharge page Print Language: Georgian Care Plan Goals: Transfer to rehab facility for physical therapy Health Concerns: Acute hypoxic respiratory failure secondary to fluid overload and aspiration pneumonia, symptomatic bradycardia, sinus pause, asystole Plan of Treatment: Follow-up with primary care provider as needed Take all medications as prescribed Assessment: See discharge summary
--- NOTE | 2023-06-17 12:02 | HO.WOUND ---
Wound Consult: Follow up 62yr old?Female admitted [place] [facility] [place] with complex medical admission to the ICU - See progress notes and H&P for detailed history.? Wound consult placed for Right Buttock and Left Buttock wounds.? Patient agreeable to assessment and photo documentation.? Patient no longer in ICU level of care currently on [facility]. Left Ischium 06/09/23 Left Ischium Today 06/17/23 Etiology: ??Progressed to Unstageable Pressure Injury initially presented as DTI in Evolution Measurements: see charting for detailed measurement Wound Bed: central black leather like eschar - moist pink red wound bed Drainage / Odor: Scant yellow drainage - no odor Edges: ? Irregular Eliud wound: ? Turpin blanchable intact tissue - No Induration, Fluctuance or Warmth noted no s/s of infection at this time Pain: patient reports pain and tenderness Goals of Treatment: ? Off load pressure - Santyl for enzymatic debridement Right Sacrum / buttock 06/09/23 Right Sacrum / Buttocks Today 06/17/23 Etiology: ??Deep Tissue Injury - resolving Measurements: see charting for detailed measurement Wound Bed: intact dark purple nonblanchable tissue - appears to be resolving compared to previous photo review Drainage / Odor: None Edges: ? Irregular Eliud wound: ? Turpin blanchable intact tissue - No Induration, Fluctuance or Warmth noted Pain: tenderness reported Goals of Treatment: ? Off load pressure - Foam dressing to aid in pressure redistribution and off loading pressure and Triad These wounds are over bony prominences and appear to have pressure involvement however there is evidence to suggest there are other contributing etiology such as pressor support and cardiac events. Evidence by quickly resolving DTI to right sacrum see previous photo 06/07/23 - but remain overall in general bony prominence area and therefore will be categorized at pressure injury. Inpatient nurse will continue to follow for wound evolution. Recommendations: 1. Turn and Reposition every 2 hours and as needed for patient comfort.? Use pillows or wedges to support off loading positions. Heel protector boots in place. 2. Off Load all bony prominences with use of pillows and heel boots if needed.? Apply Preventative foams where needed. ? 3. Monitor for incontinence and moisture control, use barrier creams when needed for prevention and treatment. 4. Provide adequate and supplemental nutrition.? 5. Continue low air loss mattress. 6. When applicable maintain blood glucose levels per Providers order. 7. Right Sacrum - Off Load Pressure - Routine cleansing, pat dry. Apply light layer of triad followed by foam dressing. Peel back and assess Q shift and change every three days and PRN. 8. Left Ischium - Off Load Pressure - Cleanse with normal saline, pat dry. ?Apply barrier to the immediate eliud wound, apply thick layer of Santyl to entire wound bed, cover with xeroform, secure foam dressing, change Daily. Re-consult wound care Nurse for wound deterioration or wound changes.
[2023-06-17] MEDS: Collagenase Clostridium Hist. 30 GM TUBE 1 APPL TOPICAL (16:19)
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
[2023-07-08 08:27] LABS: VBG Base Excess 11.1 mmol/L; VBG HCO3 34 mmol/L (22-26); VBG pCO2 42 mmHg; VBG pH 7.51 (7.32-7.43); VBG pO2 84 mmHg
== END 2023-06-17 16:49 | DRG 853 ==
LOC: HO.ED 18:09 → HO.EDOVER 21:14 → HO.IMC 05-28 17:17 → HO.ICU 05-30 05:55 → HO.IMC 06-14 11:08
PROVIDERS: Emergency Medicine; Internal Medicine; Internal Medicine Cardiovascular Disease; Internal Medicine Critical Care Medicine; Internal Medicine Pulmonary Disease; Nurse Practitioner Family; Physician Assistant Medical; Social Worker; Admitting Provider Student in an Organized Health Care Education/Training Program; Emergency Provider Emergency Medicine Emergency Medical Services; PCP Physician Assistant; Visit Provider Nurse Practitioner Acute Care
PROC: 0JH606Z Insertion of Pacemaker, Dual Chamber into Chest Subcutaneous Tissue and Fascia, Open Approach (ICD-10-PCS; principal; 2023-06-12 13:00)
DX: A41.89 Other specified sepsis (principal); I46.9 Cardiac arrest, cause unspecified; I50.31 Acute diastolic (congestive) heart failure; J96.01 Acute respiratory failure with hypoxia; J69.0 Pneumonitis due to inhalation of food and vomit; R65.21 Severe sepsis with septic shock; E87.0 Hyperosmolality and hypernatremia; I44.2 Atrioventricular block, complete; D62 Acute posthemorrhagic anemia; E87.3 Alkalosis; A08.4 Viral intestinal infection, unspecified; E78.5 Hyperlipidemia, unspecified; I11.0 Hypertensive heart disease with heart failure; E03.9 Hypothyroidism, unspecified; R91.1 Solitary pulmonary nodule; F43.10 Post-traumatic stress disorder, unspecified; E83.51 Hypocalcemia; E88.09 Other disorders of plasma-protein metabolism, not elsewhere classified; E11.9 Type 2 diabetes mellitus without complications; Z66 Do not resuscitate; E88.810 Metabolic syndrome; D69.59 Other secondary thrombocytopenia; I48.0 Paroxysmal atrial fibrillation; F25.0 Schizoaffective disorder, bipolar type; D63.8 Anemia in other chronic diseases classified elsewhere; I49.5 Sick sinus syndrome; E83.42 Hypomagnesemia; R74.01 Elevation of levels of liver transaminase levels; L89.326 Pressure-induced deep tissue damage of left buttock; L89.316 Pressure-induced deep tissue damage of right buttock; E87.6 Hypokalemia; Z20.822 Contact with and (suspected) exposure to COVID-19; G47.33 Obstructive sleep apnea (adult) (pediatric); Z91.199 Patient's noncompliance with other medical treatment and regimen due to unspecified reason; Z79.82 Long term (current) use of aspirin; Z79.85 Long-term (current) use of injectable non-insulin antidiabetic drugs; Z79.890 Hormone replacement therapy; Z79.899 Other long term (current) drug therapy
CPT/HCPCS: 0241U; 36415; 36600; 71045; 74018; 74177; 76705; 80048; 80053; 80076; 80156; 80159; 80164; 80175; 80202; 81001; 82040; 82140; 82272; 82306; 82310; 82565; 82803; 82947; 83540; 83605; 83690; 83735; 83880; 84100; 84145; 84443; 84484; 85007; 85014; 85018; 85025; 85027; 85048; 85379; 85610; 85730; 86709; 86803; 86850; 86900; 86901; 87040; 87070; 87086; 87147; 87205; 87340; 87507; 87633; 87640; 87641; 92526; 92610; 93005; 93306; 93356; 93970; 94002; 94003; 94640; 94660; 94799; 97110; 97116; 97161; 99223; 99285; A4364; C1758; C1785; C1892; C1894; C1898; J0131; J0171; J0456; J0613; J0690; J0692; J0696; J1100; J1120; J1170; J1200; J1265; J1630; J1644; J1650; J1940; J1956; J2060; J2250; J2270; J2359; J2371; J2543; J2704; J2919; J3010; J3370; J3371; J3475; J3480; J3486; P9047; Q9957; Q9967

== ENCOUNTER → 2023-05-27 13:35 | Outpatient (BNV) | payer MEDICARE, BC, SELFPAY | PROVIDERS: Emergency Provider Emergency Medicine Emergency Medical Services; PCP Physician Assistant; Visit Provider Internal Medicine | DX: R00.0 Tachycardia, unspecified (principal) | CPT/HCPCS: 93010 ==

== ENCOUNTER 2023-05-27 21:07 | Outpatient (BNV) | payer MEDICARE, BC, SELFPAY | END 2023-06-14 07:57 | PROVIDERS: Admitting Provider Student in an Organized Health Care Education/Training Program; Emergency Provider Emergency Medicine Emergency Medical Services; PCP Physician Assistant; Visit Provider Internal Medicine Cardiovascular Disease | DX: R94.31 Abnormal electrocardiogram [ECG] [EKG] (principal) | CPT/HCPCS: 93010 ==

== ENCOUNTER 2023-05-27 21:07 | Outpatient (BNV) | payer MEDICARE, BC, SELFPAY | END 2023-06-10 07:57 | PROVIDERS: Admitting Provider Student in an Organized Health Care Education/Training Program; Emergency Provider Emergency Medicine Emergency Medical Services; PCP Physician Assistant; Visit Provider Internal Medicine | DX: I48.92 Unspecified atrial flutter (principal); I44.39 Other atrioventricular block | CPT/HCPCS: 93010 ==

== ENCOUNTER 2023-05-27 21:07 | Outpatient (BNV) | payer MEDICARE, BC, SELFPAY | END 2023-06-09 07:57 | PROVIDERS: Admitting Provider Student in an Organized Health Care Education/Training Program; Emergency Provider Emergency Medicine Emergency Medical Services; PCP Physician Assistant; Visit Provider Internal Medicine | DX: I48.92 Unspecified atrial flutter (principal); I44.30 Unspecified atrioventricular block | CPT/HCPCS: 93010 ==

== ENCOUNTER 2023-05-27 21:07 | Outpatient (BNV) | payer MEDICARE, BC, SELFPAY | END 2023-06-15 06:00 | PROVIDERS: Admitting Provider Student in an Organized Health Care Education/Training Program; Emergency Provider Emergency Medicine Emergency Medical Services; PCP Physician Assistant; Visit Provider Internal Medicine Cardiovascular Disease | DX: I49.9 Cardiac arrhythmia, unspecified (principal) | CPT/HCPCS: 93010 ==

== ENCOUNTER 2023-05-27 21:07 | Outpatient (BNV) | payer MEDICARE, BC, SELFPAY | END 2023-06-05 09:30 | PROVIDERS: Admitting Provider Student in an Organized Health Care Education/Training Program; Emergency Provider Emergency Medicine Emergency Medical Services; PCP Physician Assistant; Visit Provider Internal Medicine Cardiovascular Disease | DX: R94.31 Abnormal electrocardiogram [ECG] [EKG] (principal) | CPT/HCPCS: 93010 ==

== ENCOUNTER 2023-05-27 21:07 | Outpatient (BNV) | payer MEDICARE, BC, SELFPAY | END 2023-05-29 07:00 | PROVIDERS: Admitting Provider Student in an Organized Health Care Education/Training Program; Emergency Provider Emergency Medicine Emergency Medical Services; PCP Physician Assistant; Visit Provider Internal Medicine | DX: I36.1 Nonrheumatic tricuspid (valve) insufficiency (principal); I34.0 Nonrheumatic mitral (valve) insufficiency | CPT/HCPCS: 93306 ==

== ENCOUNTER 2023-05-27 21:07 | Outpatient (BNV) | payer MEDICARE, BC, SELFPAY | END 2023-06-02 11:11 | PROVIDERS: Admitting Provider Student in an Organized Health Care Education/Training Program; Emergency Provider Emergency Medicine Emergency Medical Services; PCP Physician Assistant; Visit Provider Internal Medicine Cardiovascular Disease | DX: I50.30 Unspecified diastolic (congestive) heart failure (principal); R93.1 Abnormal findings on diagnostic imaging of heart and coronary circulation | CPT/HCPCS: 93010; 93306; 93356 ==

== ENCOUNTER 2023-05-27 21:07 | Outpatient (BNV) | payer MEDICARE, BC, SELFPAY | END 2023-06-08 07:57 | PROVIDERS: Admitting Provider Student in an Organized Health Care Education/Training Program; Emergency Provider Emergency Medicine Emergency Medical Services; PCP Physician Assistant; Visit Provider Internal Medicine | DX: I48.92 Unspecified atrial flutter (principal) | CPT/HCPCS: 93010 ==

== ENCOUNTER 2023-05-27 21:07 | Outpatient (BNV) | payer MEDICARE, BC, SELFPAY | END 2023-06-12 07:57 | PROVIDERS: Admitting Provider Student in an Organized Health Care Education/Training Program; Emergency Provider Emergency Medicine Emergency Medical Services; PCP Physician Assistant; Visit Provider Internal Medicine | DX: I50.9 Heart failure, unspecified (principal) | CPT/HCPCS: 93010 ==

== ENCOUNTER 2023-05-27 21:07 | Outpatient (BNV) | payer MEDICARE, BC, SELFPAY | END 2023-05-28 13:10 | PROVIDERS: Admitting Provider Student in an Organized Health Care Education/Training Program; Emergency Provider Emergency Medicine Emergency Medical Services; PCP Physician Assistant; Visit Provider Internal Medicine | DX: R00.0 Tachycardia, unspecified (principal); R94.31 Abnormal electrocardiogram [ECG] [EKG] | CPT/HCPCS: 93010 ==

== ENCOUNTER 2023-05-27 21:07 | Outpatient (BNV) | payer MEDICARE, BC, SELFPAY | END 2023-06-11 07:57 | PROVIDERS: Admitting Provider Student in an Organized Health Care Education/Training Program; Emergency Provider Emergency Medicine Emergency Medical Services; PCP Physician Assistant; Visit Provider Internal Medicine | DX: I48.92 Unspecified atrial flutter (principal) | CPT/HCPCS: 93010 ==

== ENCOUNTER → 2023-05-27 21:07 | Outpatient (BNV) | payer MEDICARE, BC, SELFPAY | PROVIDERS: Admitting Provider Student in an Organized Health Care Education/Training Program; Emergency Provider Emergency Medicine Emergency Medical Services; PCP Physician Assistant; Visit Provider Internal Medicine Pulmonary Disease | DX: J96.01 Acute respiratory failure with hypoxia (principal); J81.0 Acute pulmonary edema | CPT/HCPCS: 31500; 99222; 99291; 99499 ==

== ENCOUNTER → 2023-05-27 21:07 | Outpatient (BNV) | payer MEDICARE, BC, SELFPAY | PROVIDERS: Admitting Provider Student in an Organized Health Care Education/Training Program; Emergency Provider Emergency Medicine Emergency Medical Services; PCP Physician Assistant; Visit Provider Nurse Practitioner Family | DX: I46.2 Cardiac arrest due to underlying cardiac condition (principal) | CPT/HCPCS: 31500; 31502; 31615; 31622; 92950; 99291; 99292; 99499 ==

== ENCOUNTER → 2023-05-27 21:07 | Outpatient (BNV) | payer MEDICARE, BC, SELFPAY | PROVIDERS: Admitting Provider Student in an Organized Health Care Education/Training Program; Emergency Provider Emergency Medicine Emergency Medical Services; PCP Physician Assistant; Visit Provider Internal Medicine | DX: I44.39 Other atrioventricular block (principal); I48.0 Paroxysmal atrial fibrillation | CPT/HCPCS: 99222; 99223; 99232; 99233 ==

== ENCOUNTER → 2023-05-27 21:07 | Outpatient (BNV) | payer MEDICARE, BC, SELFPAY | PROVIDERS: Admitting Provider Student in an Organized Health Care Education/Training Program; Emergency Provider Emergency Medicine Emergency Medical Services; PCP Physician Assistant; Visit Provider Physician Assistant Medical | DX: I48.19 Other persistent atrial fibrillation (principal); F25.0 Schizoaffective disorder, bipolar type | CPT/HCPCS: 99223; 99232; 99233; 99239; 99499 ==

== ENCOUNTER → 2023-05-27 21:07 | Outpatient (BNV) | payer MEDICARE, BC, SELFPAY | PROVIDERS: Admitting Provider Student in an Organized Health Care Education/Training Program; Emergency Provider Emergency Medicine Emergency Medical Services; PCP Physician Assistant; Visit Provider Social Worker | DX: F25.0 Schizoaffective disorder, bipolar type (principal) | CPT/HCPCS: 99232 ==

== ENCOUNTER → 2023-07-07 23:59 | Outpatient (BNV) | payer SELFPAY ==
--- NOTE | 2023-07-12 14:23 | MHC.OFFVIS ---
Intake Visit Reasons: Remote device check- [facility] Allergies amoxicillin Allergy (Unknown, Uncoded 05/27/23 14:06) Unknown Pt states no food allergy Allergy (Unknown, Uncoded 05/27/23 14:06) Unknown [facility] Medical History Hypertension Hyperlipidemia Type II diabetes mellitus PTSD (post-traumatic stress disorder) Surgical History History of cholecystectomy Social History Household Members: Other Housing: Other Housing Other:: [facility] facility Do you presently have visiting nurse or other home services: No Comment: sitter in room Patient Tobacco Use Status: Never used Tobacco Tobacco use type: Cigarette e-Cigarette/Vaping Use: Never Used Substance Use Type: Caffiene service: No Sexual orientation: Straight/Heterosexual Office Procedures Cardiac Device Check Cardiac Device Check Details: Date of service- 07/07/2023 ; Battery life 5.9-12.3 years; normal lead parameters; AP <1%; OPENSTACK DEVELOPER <1%; no significant arrhythmias. Overall normal device function. [id number] Cardiac Device Interrogation, pacemaker Procedure code (CPT) selection complete Assessment & Plan Assessment & Plan (1) High degree atrioventricular block: Code(s): I44.39 - Other atrioventricular block Category: Medical Plan x Coding Level of Care Code Procedure Only Diagnoses High degree atrioventricular block I44.39 CPT Codes Cardiac Device Check - Cardiac Device 12: [id number] Cardiac Device Interrogation, pacemaker ([id number])
== END ==
PROVIDERS: PCP Physician Assistant; Visit Provider Internal Medicine
DX: I44.39 Other atrioventricular block (principal); Z95.0 Presence of cardiac pacemaker
CPT/HCPCS: 93294

== ENCOUNTER 2023-12-25 12:43 | Inpatient (IN) | payer MEDICARE, BC, SELFPAY ==
--- NOTE | ~2023-12-25 | XR_ITS ---
EXAMINATION: XR ABDOMEN KUB CLINICAL INDICATION: abdominal pain COMPARISON: 06/05/2023. TECHNIQUE: AP view of the abdomen. FINDINGS: Bowel gas pattern is normal/nonspecific. There is no focally dilated loop. Moderate retained fecal material seen throughout the colon and rectum. There is abdominal pannus. No definite organomegaly or large abdominal mass. No abnormal bowel calcifications. Pacer leads noted in the right atrium and right ventricle with cardiac enlargement. Lung bases demonstrate mildly increased left basilar linear and peribronchial opacities. There are degenerative changes in the hip joints, SI joints, and spine. There is gluteal enthesopathy. XR/XR KUB IMPRESSION: No acute findings. Moderate constipation. Electronically signed by: Benny Estrada MD 04/01/2024 11:32 AM [facility]
[2023-12-25 13:21] VITALS: BP 150/69; PULSE 98; RESP 16; TEMP 36.6; O2SAT 95; BMI 34.9
--- NOTE | 2023-12-25 13:21 | ED_ITS ---
HPI - General Adult General Chief complaint: Psychiatric Symptoms Stated complaint: crisis Time Seen by Provider: 12/25/23 14:07 Source: patient Limitations: no limitations History of Present Illness ED Provider: Eliana odell PA-C HPI narrative: 63-year-old female with a history of PTSD, delusional disorder of persecutory type, presents given need to speak with crisis. Patient states that she has had recent medication adjustment, she feels that the changes are not benefitting her. She feels that her ?mood is off?, and that she is having trouble concentrating. In addition, patient feels anxious, she does not feel safe in her home. Patient sts that ?someone is trying to her?. When asked if she knows who was trying to hurt her, patient states ?I need to keep this private I will only talked with the nurse practitioner up on the floor when I am admitted?. Patient denies SI, HI, use of alcohol or illicit substances. Related Data Home Medications ?Medication ?Instructions ?Recorded ?Confirmed atorvastatin 40 mg tablet 40 mg PO BEDTIME 05/27/23 12/25/23 divalproex 250 mg tablet,delayed 250 mg PO BID 05/27/23 12/25/23 release (Depakote) divalproex 500 mg tablet,delayed 500 mg PO BID 05/27/23 12/25/23 release (Depakote) melatonin 3 mg tablet 9 mg PO BEDTIME PRN Insomnia 05/27/23 12/25/23 thyroid (pork) 120 mg tablet (RECORDS SUPERVISOR 120 mg PO DAILY@0630 05/27/23 12/25/23 Thyroid) benztropine 0.5 mg tablet 0.5 mg PO TID 12/25/23 12/25/23 lamotrigine 100 mg tablet 50 mg PO BEDTIME 12/25/23 12/25/23 lumateperone 42 mg capsule 42 mg PO DAILY 12/25/23 12/25/23 (Caplyta) quetiapine 25 mg tablet 25 mg PO TID PRN anxieety 12/25/23 12/25/23 Previous Rx's ?Medication ?Instructions ?Recorded dulaglutide 3 mg/0.5 mL 3 mg (0.5 mL) subcut QWEEK #2 mL 04/10/23 subcutaneous pen injector (Trulicity) furosemide 20 mg tablet 20 mg PO DAILY #0 tabs 05/11/23 metoprolol succinate 25 mg 25 mg PO DAILY #0 tabs 05/11/23 tablet,extended release 24 hr ondansetron 4 mg disintegrating 4 mg translingual Q6H PRN Nausea 05/11/23 tablet #0 tabs apixaban 5 mg tablet (Eliquis) 5 mg PO BID #60 tabs 06/17/23 omeprazole 20 mg capsule,delayed 20 mg PO DAILY@0630 #30 caps 06/17/23 release Allergies Allergy/AdvReac Type Severity Reaction Status Date / Time amoxicillin Allergy Unknown Unknown Uncoded 12/25/23 13:21 Pt states no food allergy Allergy Unknown Unknown Uncoded 12/25/23 13:21 Review of Systems 2 Review of Systems: Yes all other systems are reviewed and are negative Constitutional: Constitutional: Denies fatigue and Denies fever(s) Cardiovascular: Cardiovascular: Denies chest pain and Denies dyspnea Respiratory: Respiratory: Denies dyspnea Gastrointestinal: Gastrointestinal: Denies abdominal pain Endocrine: Endocrine: Denies fatigue PMFSH Past Medical History Attestation statement: The following information was validated with the patient. Medical History Hypertension Hyperlipidemia Type II diabetes mellitus PTSD (post-traumatic stress disorder) Surgical History History of cholecystectomy Social History Social History Household Members: Other Housing: Other Housing Other:: [facility] facility Do you presently have visiting nurse or other home services: No Comment: sitter in room Patient Tobacco Use Status: Never used Tobacco Tobacco use type: Cigarette Smoked in Last 30 Days: No e-Cigarette/Vaping Use: Never Used Use of substances other than those prescribed or required for medical reasons: No Substance Use Type: Caffiene Advance Directives: No Advance Directives Information Provided: Yes Do you have a plan to hurt others: No Plan service: No Sexual orientation: Straight/Heterosexual Physical Exam ED Vital Signs: Vital Signs - 24 hr 12/25/23 13:21 12/25/23 14:33 Temperature 98 F Pulse Rate 98 Respiratory Rate 16 16 Blood Pressure 150/69 H Pulse Oximetry 95 Oxygen Delivery Method Room Air BMI result Body Mass Index 34.9 Const Other: Alert, overall well-appearing Orientation/consciousness: patient oriented x3 Resp Other: Nonlabored respirations Cardio Other: Normal peripheral perfusion Skin Other: Warm dry no rash Neuro General: patient oriented x3, gait normal, no focal motor deficits and CN's II- XI intact bilaterally Psych Other: Cooperative, appears anxious, slight tremor , is wringing her hands Course Course Course Narrative: This is an RME performed by Abby Florentino CNP: Additional HPI, ROS, PE not included below will be deferred to primary provider. Patient is a 63-year-old female past medical history of bipolar disorder who presents to the emergency department for evaluation. She is having difficulty concentrating on feels as though she needs her mood adjusted, states that she has had recent medication changes over the past week and does not feel that this is benefitting her. She feels as though she needs to be inpatient. Denies SI/HI. Plan: Serum labs, care team evaluation Medical Decision Making Medical Decision Making [facility] Narrative: 63-year-old female with a history of PTSD, delusional disorder of persecutory type, presents given need to speak with crisis. Patient states that she has had recent medication adjustment, she feels that the changes are not benefitting her. She feels that her ?mood is off?, and that she is having trouble concentrating. In addition, patient feels anxious, she does not feel safe in her home. Patient sts that ?someone is trying to her?. When asked if she knows who was trying to hurt her, patient states ?I need to keep this private I will only talked with the nurse practitioner up on the floor when I am admitted?. Patient denies SI, HI, use of alcohol or illicit substances. Problem: Psychiatric illness History: Per patient I have considered the following differential diagnoses: SI, HI, decompensated psychiatric illness, drug/alcohol intoxication Plan: Unclear if patient truly is at risk for harm, this could be part of her delusional disorder, sounds as if she has decompensated at this time. I spoke with the care team, the patient will be a bed search. Screening labs including serum ethanol and drug screen were obtained. I have independently reviewed the following tests: Labs: No leukocytosis, not anemic, no electrolyte abnormality, ethanol negative, drug screen negative Lab Data 12/25/23 13:48 12/25/23 13:48 Labs: Lab Results 12/25/23 12/25/23 Range/Units 13:48 16:11 WBC 10.5 (4.8-10.8) X10*3/uL RBC 3.98 L D (4.20-5.50) X10*6/uL Hgb 12.7 D (12.0-16.0) g/dl Hct 38.3 D (37.0-47.0) % MCV 96.2 (80.0-98.0) fL MCH 31.9 (27.0-33.0) pg MCHC 33.2 (31.0-35.0) g/dl RDW 13.9 (11.0-16.0) % Plt Count 188 (160-400) X10*3/uL MPV 10.7 (9.4-12.3) fL Immature Gran % (Auto) 1.2 H (0.0-0.4) % Neut % (Auto) 58.7 (45-73) % Lymph % (Auto) 31.6 (20-40) % Archer % (Auto) 7.8 (2-11) % Eos % (Auto) 0.4 (0-4) % Baso % (Auto) 0.3 (0-2) % Lymph # (Auto) 3.3 (1.2-4.9) X10*3/uL Archer # (Auto) 0.8 (0.1-1.2) X10*3/uL Eos # (Auto) 0.0 (0.0-0.4) X10*3/uL Baso # (Auto) 0.0 (0.0-0.2) X10*3/uL Abs Immat Gran (auto) 0.13 H (0.00-0.03) X10*3/uL Absolute Neuts (auto) 6.2 (2.0-8.3) x10*3/uL Absolute Nucleated RBC 0.020 H (0.0-0.012) X10*3/uL Nucleated RBC % (auto) 0.2 (0.0-0.2) /100WBC Sodium 139 (135-145) mmol/L Potassium 3.9 (3.3-5.1) mmol/L Chloride 99 (96-108) mmol/L Carbon Dioxide 31 H (22-29) mmol/L Anion Gap 13 (12-20) BUN 23 H (9-16) mg/dL Creatinine 0.79 (0.5-1.4) mg/dL Estim Creat Clear Calc 86.7 Estimated GFR > 60 Random Glucose 103 (60-115) mg/dL Calcium 9.4 (8.4-10.2) mg/dL Total Bilirubin 0.5 (0.0-1.0) mg/dL AST 20 (5-31) U/L ALT 12 (0-31) U/L Alkaline Phosphatase 75 (39-117) U/L Total Protein 7.3 (6.5-8.0) g/dL Albumin 4.3 (3.5-5.0) g/dL Urine Color Yellow Urine Appearance Clear Urine pH 6.0 (5.0-9.0) Ur Specific Seffner 1.010 (1.005-1.025) Urine Protein Negative (Neg-Trace) mg/dL Urine Glucose (UA) Negative (Negative) mg/dL Urine Ketones Trace (Negative) mg/dL Urine Blood Negative (Negative) Urine Nitrite Negative (Negative) Ur Leukocyte Esterase Trace H (Negative) Urine RBC 0-2 (0-2) /HPF Urine WBC 0-5 (0-5) /HPF Ur Squamous Epith Cells 3-5 (0-2) /HPF Urine Bacteria Trace (None Seen) Hyaline Casts 0-2 (0-2) /LPF Urine Opiates Screen Not Detected (Not Detect) Ur Buprenorphine Scrn Not Detected (Not Detect) ng/mL Ur Oxycodone Screen Not Detected (Not Detect) ng/mL Urine Methadone Screen Not Detected (Not Detect) ng/mL Urine Fentanyl Screen Not Detected (Not Detect) Ur Barbiturates Screen Not Detected (Not Detect) Ur Phencyclidine Scrn Not Detected (Not Detect) Ur Amphetamines Screen Not Detected (Not Detect) U Benzodiazepines Scrn Not Detected (Not Detect) Urine Cocaine Screen Not Detected (Not Detect) U Marijuana (THC) Screen Not Detected (Not Detect) Ethyl Alcohol < 10 mg/dL Discharge Plan Discharge Clinical Impression: Anxiety Patient Disposition: Still a Patient Prescriptions: No Action divalproex [Depakote] 250 mg Tablet,Delayed Release (Dr/Ec) 250 mg PO BID divalproex [Depakote] 500 mg Tablet,Delayed Release (Dr/Ec) 500 mg PO BID thyroid (pork) [RECORDS SUPERVISOR Thyroid] 120 mg Tablet 120 mg PO DAILY@0630 melatonin 3 mg tablet 9 mg PO BEDTIME PRN (Reason: Insomnia) atorvastatin 40 mg Tablet 40 mg PO BEDTIME omeprazole 20 mg Capsule,Delayed Release(Dr/Ec) 20 mg PO DAILY@0630 Qty: 30 0RF Eliquis 5 mg Tablet 5 mg PO BID Qty: 60 0RF quetiapine 25 mg Tablet 25 mg PO TID PRN (Reason: anxieety) benztropine 0.5 mg Tablet 0.5 mg PO TID lamotrigine 100 mg Tablet 50 mg PO BEDTIME Rx Instructions: take half of the 100mg tablet due to intolerance Caplyta 42 mg Capsule 42 mg PO DAILY Trulicity 3 mg/0.5 mL pen injector 3 mg subcut QWEEK Qty: 2 0RF Rx Instructions: Please send to [facility] at [facility] [place] furosemide 20 mg Tablet 20 mg PO DAILY Qty: 0 0RF Protocol: Hold for SBP< HOLD for SBP < : 90 metoprolol succinate 25 mg Tablet Extended Release 24 Hr 25 mg PO DAILY Qty: 0 0RF Protocol: Hold for SBP/HR < HOLD for SBP < : 90 HOLD for HR < : 60 ondansetron 4 mg Tablet,Disintegrating 4 mg translingual Q6H PRN (Reason: Nausea) Qty: 0 0RF Interventions: [place]-Suicide Risk Severity Scale Last Done: 12/25/23 14:33 Print Language: Tamazight
[2023-12-25 14:00] LABS: MANUAL DIFF FLAG NO
[2023-12-25 14:01] LABS: Basophils Percent Auto 0.3 % (0-2); Eosinophils Percent Auto 0.4 % (0-4); Hematocrit 38.3 % (37.0-47.0); Hemoglobin 12.7 g/dl (12.0-16.0); Imm Gran Abs Auto 0.13 X10*3/uL (0.00-0.03); Imm Gran Pct Auto 1.2 % (0.0-0.4); Lymphocytes Absolute Auto 3.3 X10*3/uL (1.2-4.9); Lymphocytes Percent Auto 31.6 % (20-40); Mean Corpuscular HGB Conc 33.2 g/dl (31.0-35.0); Mean Corpuscular Hemoglobin 31.9 pg (27.0-33.0); Mean Corpuscular Volume 96.2 fL (80.0-98.0); Mean Platelet Volume 10.7 fL (9.4-12.3); Monocytes Absolute Auto 0.8 X10*3/uL (0.1-1.2); Monocytes Percent Auto 7.8 % (2-11); NRBC Pct Auto 0.2 /100WBC (0.0-0.2); Neutrophils Absolute Auto 6.2 x10*3/uL (2.0-8.3); Neutrophils Percent Auto 58.7 % (45-73); Platelet Count 188 X10*3/uL (160-400); Red Blood Count 3.98 X10*6/uL (4.20-5.50); Red Cell Distribution Width 13.9 % (11.0-16.0); White Blood Count 10.5 X10*3/uL (4.8-10.8)
[2023-12-25 14:23] LABS: Alanine Aminotransferase 12 U/L (0-31); Albumin Level 4.3 g/dL (3.5-5.0); Alkaline Phosphatase 75 U/L (39-117); Anion Gap 13 (12-20); Aspartate Amino Transferase 20 U/L (5-31); Bilirubin Total 0.5 mg/dL (0.0-1.0); Blood Urea Nitrogen 23 mg/dL (9-16); Calcium 9.4 mg/dL (8.4-10.2); Carbon Dioxide 31 mmol/L (22-29); Chloride 99 mmol/L (96-108); Creatinine Clr Calc Pharmacy 86.7; Estimated Glomerular Filt Rate > 60; Ethanol < 10 mg/dL; Glucose Random 103 mg/dL (60-115); Potassium 3.9 mmol/L (3.3-5.1); Sodium 139 mmol/L (135-145); Total Protein 7.3 g/dL (6.5-8.0)
[2023-12-25 14:33] VITALS: RESP 16
--- NOTE | 2023-12-25 14:35 | PC.NURSE ---
Daily comes in today reporting increasing difficulty concentrating and seeing peoples faces everywhere . Patient reports she has bipolar and is consistent with her medications but feels as though she is on the wrong meds. Pt is calm and cooperative, help seeking, reports no SI/HI/AH/VH. Pt is requesting go inpatient to trial new medications. Pt aware of plan of care for med clearance then CARE team carter
[2023-12-25 16:27] LABS: Amphetamine Screen Urine Not Detected (Not Detect); Barbiturates, Urine Not Detected (Not Detect); Benzodiazepines Screen Urine Not Detected (Not Detect); Buprenorphine Scr Not Detected (Not Detect); Cannabinoid Screen Urine Not Detected (Not Detect); Cocaine Screen Urine Not Detected (Not Detect); Fentanyl, urine Not Detected (Not Detect); Methadone Screen, Urine Not Detected (Not Detect); Opiate Screen Urine Not Detected (Not Detect); Oxycodone Screen Urine Not Detected (Not Detect); Phencyclidine Screen Urine Not Detected (Not Detect)
[2023-12-25 16:30] LABS: Appearance Urine Clear; Color Urine Yellow; Glucose Urine UA Negative (Negative); Leukocyte Esterase Urine Trace (Negative); Nitrite Urine Negative (Negative); UMIC TRIGGER UACC YES; Urine Blood Negative (Negative); Urine Ketones Trace mg/dL (Negative); Urine Protein Negative (Neg-Trace)
[2023-12-25 17:13] LABS: Bacteria Urine Trace (None Seen); Hyaline Casts Urine 0-2 /LPF (0-2); RBC Urine 0-2 /HPF (0-2); WBC Urine 0-5 /HPF (0-5)
--- NOTE | 2023-12-25 17:14 | PC.NURSE ---
Calm and cooperative, seen by care team , provided with snacks per patients request. Gait steady, no complaints of pain
--- NOTE | 2023-12-25 19:17 | PC.NURSE ---
patient appears to remain at rest presently respirations are even and unlabored patient appears in no distress.
[2023-12-25] MEDS: Benztropine Mesylate 0.5 MG TABLET PO (21:12)
[2023-12-25] MEDS: Apixaban 5 MG TABLET PO (21:12)
[2023-12-25] MEDS: Divalproex Sodium 500 MG TABLET.DR PO (21:12)
[2023-12-25] MEDS: Divalproex Sodium 250 MG TABLET.DR PO (21:12)
[2023-12-25] MEDS: Atorvastatin Calcium 40 MG TABLET PO (21:12)
[2023-12-25] MEDS: Melatonin 3 MG TABLET 9 MG PO (23:50)
[2023-12-25 23:54] VITALS: BP 181/84; PULSE 117; RESP 18; TEMP 36.6; O2SAT 96
[2023-12-26 00:08] LABS: Glucose, Whole Blood 121 mg/dL (60-115)
--- NOTE | 2023-12-26 01:51 | ECG_ITS ---
Test Reason : MED CLEAR Blood Pressure : / mmHG Vent. Rate : 106 BPM Atrial Rate : 106 BPM P-R Int : 150 ms QRS Dur : 078 ms QT Int : 328 ms P-R-T Axes : 053 033 017 degrees QTc Int : 435 ms Sinus tachycardia Otherwise normal ECG When compared with ECG of 15-JUN-2023 08:23, Nonspecific T wave abnormality, improved in Inferior leads Nonspecific T wave abnormality no longer evident in Lateral leads Referred By: James Hammonds Electronically Signed By:Cesar Truong
[2023-12-26 02:10] VITALS: BP 192/82; PULSE 104
[2023-12-26] MEDS: Metoprolol Tartrate 50 MG TABLET PO (02:10)
[2023-12-26] MEDS: Omeprazole 20 MG CAPSULE.DR PO (06:58)
--- NOTE | 2023-12-26 07:34 | PC.NURSE ---
Assumed care of patient at 0645, patient appears to be in no apparent distress this am, calm and cooperative, eating breakfast, offering no complaints to this RN at this time. Patient aware of plan of care for IPLOC
[2023-12-26 08:06] LABS: Glucose, Whole Blood 215 mg/dL (60-115)
[2023-12-26] MEDS: Divalproex Sodium 250 MG TABLET.DR PO (08:17)
[2023-12-26] MEDS: Furosemide 20 MG TABLET PO (08:17)
[2023-12-26] MEDS: Metoprolol Succinate ER 25 MG TAB.ER.24H PO (08:17)
[2023-12-26] MEDS: Apixaban 5 MG TABLET PO ×2 (08:17→20:06)
[2023-12-26] MEDS: Divalproex Sodium 500 MG TABLET.DR PO (08:17)
[2023-12-26] MEDS: Benztropine Mesylate 0.5 MG TABLET PO ×2 (08:18→20:07)
--- NOTE | 2023-12-26 08:41 | PHA.MEDREC ---
Pharmacy Consult ? Medication Reconciliation Pharmacy has reviewed the medication reconciliation. Several discrepancies were noticed by this [facility]. Upon interview with patient, patient was able to confirm patient is on depakote 500 mg, 3 tablets at bedtime. She also was able to confirm patient is not on trulicity 3 mg, she is on 1.5 mg, last taken on thursday. She was also able to confirm she takes benztropine BID not TID.
[2023-12-26 17:16] VITALS: BP 150/83; PULSE 93; RESP 16; TEMP 36.8; O2SAT 98
[2023-12-26 17:26] LABS: Glucose, Whole Blood 123 mg/dL (60-115)
--- NOTE | 2023-12-26 18:55 | PC.NURSE ---
Assumed care of pt. Pt lying on stretcher, no acute distress at this time, calm and cooperative. Continuing safety observations per orders.
[2023-12-26] MEDS: Divalproex Sodium 500 MG TABLET.DR 1500 MG PO (20:06)
[2023-12-26] MEDS: QUEtiapine Fumarate 25 MG TABLET PO (20:06)
[2023-12-26] MEDS: Melatonin 3 MG TABLET 9 MG PO (20:07)
[2023-12-26] MEDS: Atorvastatin Calcium 40 MG TABLET PO (20:07)
--- NOTE | 2023-12-26 20:10 | PC.NURSE ---
Pt appearing at RN desk to receive medications, appears shaky, anxious. Pt requested dose of Trazodone to help her sleep, request sent to provider.
[2023-12-26] MEDS: traZODone HCL 100 MG TABLET PO (21:39)
[2023-12-27 04:18] VITALS: BP 153/68; PULSE 109; RESP 17; TEMP 36.6; O2SAT 97
[2023-12-27] MEDS: Omeprazole 20 MG CAPSULE.DR PO (06:40)
--- NOTE | 2023-12-27 07:39 | PC.NURSE ---
Assumed care of patient at 0645, patient appears to be in no apparent distress this am, calm and cooperative, aware of plan of care for IPLOC
[2023-12-27] MEDS: Furosemide 20 MG TABLET PO (08:23)
[2023-12-27] MEDS: Metoprolol Succinate ER 25 MG TAB.ER.24H PO (08:23)
[2023-12-27] MEDS: Apixaban 5 MG TABLET PO ×2 (08:24→20:18)
[2023-12-27] MEDS: Benztropine Mesylate 0.5 MG TABLET PO ×2 (08:24→20:19)
[2023-12-27 08:43] VITALS: BP 138/70; PULSE 105; RESP 17; TEMP 36.4; O2SAT 96
--- NOTE | 2023-12-27 11:30 | MHC.CARE ---
Pt was re-evaluated due to an exhausted inpatient psychiatric bed search. Pt continues to meet the criteria for IPLOC and will remain a bed search.
[2023-12-27 16:55] VITALS: BP 148/97; PULSE 97; RESP 18; TEMP 37.2; O2SAT 97
[2023-12-27] MEDS: Atorvastatin Calcium 40 MG TABLET PO (20:18)
[2023-12-27] MEDS: Divalproex Sodium 500 MG TABLET.DR 1500 MG PO (20:18)
[2023-12-27] MEDS: lamoTRIgine 25 MG TABLET 50 MG PO (20:19)
[2023-12-27] MEDS: traZODone HCL 100 MG TABLET PO (23:38)
[2023-12-28 01:16] VITALS: BP 148/65; PULSE 98; RESP 16; TEMP 37.1; O2SAT 93
--- NOTE | 2023-12-28 01:35 | PC.NURSE ---
Notified PA no sliding scale, will look into orders.
[2023-12-28 06:48] LABS: Glucose, Whole Blood 100 mg/dL (60-115)
[2023-12-28] MEDS: Omeprazole 20 MG CAPSULE.DR PO (06:49)
[2023-12-28] MEDS: Metoprolol Succinate ER 25 MG TAB.ER.24H PO (08:18)
[2023-12-28] MEDS: Thyroid,Pork 30 MG TABLET 120 MG PO (08:18)
[2023-12-28] MEDS: Apixaban 5 MG TABLET PO ×2 (08:18→20:18)
[2023-12-28] MEDS: Furosemide 20 MG TABLET PO (08:18)
[2023-12-28] MEDS: Benztropine Mesylate 0.5 MG TABLET PO ×2 (08:19→20:18)
[2023-12-28 09:14] VITALS: BP 145/73; PULSE 110; RESP 20; TEMP 37.2; O2SAT 95
[2023-12-28 13:13] LABS: Glucose, Whole Blood 132 mg/dL (60-115)
[2023-12-28 15:26] VITALS: BP 166/77; PULSE 102; RESP 16; TEMP 36.8; O2SAT 96
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
--- NOTE | 2023-12-28 18:26 | PC.NURSE ---
Pt decline influenza vaccine when offered
[2023-12-28 19:34] VITALS: BP 129/68; PULSE 94; RESP 16; TEMP 36.9; O2SAT 93
[2023-12-28] MEDS: Divalproex Sodium 500 MG TABLET.DR 1500 MG PO (20:18)
[2023-12-28] MEDS: lamoTRIgine 25 MG TABLET 50 MG PO (20:18)
[2023-12-28] MEDS: Atorvastatin Calcium 40 MG TABLET PO (20:18)
[2023-12-28 20:19] LABS: Glucose, Whole Blood 109 mg/dL (60-115)
[2023-12-28 20:19] LABS: Glucose, Whole Blood 120 mg/dL (60-115)
[2023-12-29] MEDS: Thyroid,Pork 30 MG TABLET 120 MG PO (06:49)
[2023-12-29 07:44] LABS: Glucose, Whole Blood 132 mg/dL (60-115)
[2023-12-29 08:40] VITALS: BP 129/60; PULSE 120; RESP 16; TEMP 36.7; O2SAT 94
[2023-12-29 08:46] VITALS: BP 129/60; PULSE 120
[2023-12-29] MEDS: Omeprazole 20 MG CAPSULE.DR PO (08:46)
[2023-12-29] MEDS: Metoprolol Succinate ER 25 MG TAB.ER.24H PO (08:46)
[2023-12-29] MEDS: Furosemide 20 MG TABLET PO (08:46)
[2023-12-29] MEDS: Benztropine Mesylate 0.5 MG TABLET PO ×2 (08:47→23:00)
[2023-12-29] MEDS: Apixaban 5 MG TABLET PO ×2 (08:47→23:00)
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
[2023-12-29] MEDS: Milk of Magnesia 30 ML ORAL.SUSP PO (10:10)
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
[2023-12-29] MEDS: Magnesium Oxide 400 MG TABLET PO ×2 (11:08→17:05)
[2023-12-29 11:45] LABS: Glucose, Whole Blood 148 mg/dL (60-115)
[2023-12-29 16:53] LABS: Glucose, Whole Blood 121 mg/dL (60-115)
[2023-12-29 20:00] VITALS: BP 136/63; PULSE 97; RESP 16; TEMP 37.2; O2SAT 96
[2023-12-29 20:15] LABS: Glucose, Whole Blood 114 mg/dL (60-115)
[2023-12-29 20:45] VITALS: BP 144/64; PULSE 101; RESP 16; TEMP 36.4; O2SAT 95
[2023-12-29] MEDS: ARIPiprazole 5 MG TABLET PO (22:59)
[2023-12-29] MEDS: carBAMazepine ER 100 MG TAB.ER.12H PO (23:00)
[2023-12-29] MEDS: lamoTRIgine 25 MG TABLET PO (23:00)
[2023-12-29] MEDS: Divalproex Sodium 500 MG TABLET.DR 1000 MG PO (23:01)
[2023-12-29] MEDS: Atorvastatin Calcium 40 MG TABLET PO (23:01)
--- NOTE | 2023-12-29 23:21 | PC.NURSE ---
Addendum entered by Black Rosales RN 12/30/23 02:22: Pt took meds @2300. Original Note: Pt easily irritable in her room, state you are in the wrong room, get out . She refused her evening meds @ 2100. She later came out of her room requested for meds and snacks and took her meds @2100.
[2023-12-30] MEDS: Thyroid,Pork 30 MG TABLET 120 MG PO (06:26)
[2023-12-30] MEDS: Omeprazole 20 MG CAPSULE.DR PO (06:28)
[2023-12-30 07:31] VITALS: BP 144/71; PULSE 111; RESP 16; TEMP 36.8; O2SAT 95
[2023-12-30 07:37] LABS: Glucose, Whole Blood 146 mg/dL (60-115)
[2023-12-30] MEDS: Metoprolol Succinate ER 25 MG TAB.ER.24H PO (08:10)
[2023-12-30] MEDS: Furosemide 20 MG TABLET PO (08:10)
[2023-12-30] MEDS: Apixaban 5 MG TABLET PO (08:10)
[2023-12-30] MEDS: Benztropine Mesylate 0.5 MG TABLET PO ×2 (08:11→20:23)
[2023-12-30] MEDS: carBAMazepine ER 100 MG TAB.ER.12H PO ×2 (08:11→20:22)
[2023-12-30] MEDS: Magnesium Oxide 400 MG TABLET PO ×2 (08:11→18:02)
[2023-12-30 11:44] LABS: Glucose, Whole Blood 145 mg/dL (60-115)
[2023-12-30] MEDS: Cholecalciferol (Vitamin D3) 25 MCG TABLET 50 MCG PO (11:47)
--- NOTE | 2023-12-30 15:52 | HO.PSYCHPN ---
Subjective Subjective Date of Service: 12/30/23 Reason For Visit: Mood Disorder Interim History: feeling OK. agreeable to DC lamictal and increase abilify to 10 mg QHS. c/o weird visions, including seeing a dog's body with the head of a human female on the unit. slept reasonably well last night. Mental Status Exam Mental Status Exam Narrative: Appearance: wearing own clothes, in NAD Psychomotor: no PMA/PMR Speech: clear, incr rate and amount TP: more linear TC: paranoid delusions Mood: good Affect: flexible, normo-intense, non-labile SI: none expressed HI: none expressed VH/AH: VH of dog with human head Insight/judgment: impaired Memory/cog: alert, oriented x 3. not formally tested but aware of situation and recommended treatment. Diagnostics Vital Signs (24Hr): Vital Signs - 24 hr 12/29/23 20:00 12/30/23 07:31 Temperature 99 F 98.2 F Pulse Rate 97 111 H Respiratory Rate 16 16 Blood Pressure 136/63 144/71 H Pulse Oximetry 96 95 Oxygen Delivery Method Room Air Room Air BMI result Body Mass Index 34.9 Labs 12/25/23 13:48 12/25/23 13:48 Labs: Laboratory Results - last 48 hr 12/28/23 12/28/23 12/29/23 17:11 20:14 07:39 POC Glucose 120 H 109 132 H 12/29/23 12/29/23 12/29/23 11:41 16:48 20:11 POC Glucose 148 H 121 H 114 12/30/23 12/30/23 07:33 11:40 POC Glucose 146 H 145 H Medications Medications Current Medications Acetaminophen (Acetaminophen 325 Mg Tablet) 650 mg PO Q6H PRN PRN Reason: Headache/Pain Mild Scale (1-3) Al Hydroxide/Mg Hydroxide (Magnesium Hydrox/Alum Hydrox 30 Ml Oral.Susp) 30 ml PO Q6H PRN PRN Reason: Heartburn/Nausea Apixaban (Apixaban 2.5 Mg Tablet) 7.5 mg PO BID BERNARDA Aripiprazole (Aripiprazole 5 Mg Tablet) 5 mg PO BEDTIME BERNARDA Last Admin: 12/29/23 22:59 Dose: 5 mg Atorvastatin Calcium (Atorvastatin Calcium 40 Mg Tablet) 40 mg PO BEDTIME BERNARDA Last Admin: 12/29/23 23:01 Dose: 40 mg Benztropine Mesylate (Benztropine Mesylate 0.5 Mg Tablet) 0.5 mg PO BID [facility] Last Admin: 12/30/23 08:11 Dose: 0.5 mg Carbamazepine (Carbamazepine Er 100 Mg Tab.Er.12h) 100 mg PO BID [facility] Last Admin: 12/30/23 08:11 Dose: 100 mg Divalproex Sodium (Divalproex Sodium 500 Mg Tablet.) 1,000 mg PO BEDTIME [facility] Last Admin: 12/29/23 23:01 Dose: 1,000 mg Furosemide (Furosemide 20 Mg Tablet) 20 mg PO DAILY [facility]; Protocol Last Admin: 12/30/23 08:10 Dose: 20 mg Insulin Human Lispro (Insulin Lispro 100 Unit/Ml 3 Ml Vial) 0 unit SUBCUT QIDACHS [facility]; Protocol Last Admin: 12/30/23 11:52 Dose: Not Given Magnesium Hydroxide (Milk Of Magnesia 30 Ml Oral.Susp) 30 ml PO DAILY PRN PRN Reason: Constipation Last Admin: 12/29/23 10:10 Dose: 30 ml [facility]esium Ox[facility] ([facility] 400 Mg [facility]t) [facility] Last Admin: 12/30/23 08:11 Dose: 400 mg Melatonin (Melatonin 3 Mg Tablet) 9 mg PO BEDTIME PRN PRN Reason: Insomnia Last Admin: 12/26/23 20:07 Dose: 9 mg Metoprolol Succinate (Metoprolol Succinate Er 25 Mg Tab.Er.24h) 25 mg PO DAILY [facility]; Protocol Last Admin: 12/30/23 08:10 Dose: 25 mg Nicotine Polacrilex (Nicotine Polacrilex 2 Mg Gum) 2 mg BUCCAL Q2H PRN PRN Reason: Nicotine Cravings Non-Formulary Medication (Dulaglutide [Trulicity]) 3 mg SUBCUT Q7D [facility] Omeprazole (Omeprazole 20 Mg Capsule.) 20 mg PO DAILY@0630 [facility] Last Admin: 12/30/23 06:28 Dose: 20 mg Ondansetron HCl (Ondansetron Odt 4 Mg Tab.Rapdis) 4 mg TRANSLINGU Q6H PRN PRN Reason: Nausea Polyethylene Glycol (Polyethylene Glycol 3350 17 Gm Powd.Pack) 17 gm PO DAILY PRN PRN Reason: Constipation Quetiapine Fumarate (Quetiapine Fumarate 25 Mg Tablet) 25 mg PO TID PRN PRN Reason: anxieety Last Admin: 12/26/23 20:06 Dose: 25 mg Thyroid (Thyroid,Pork 30 Mg Tablet) 120 mg PO DAILY@0630 [facility] Last Admin: 12/30/23 06:26 Dose: 120 mg Trazodone HCl (Trazodone Hcl 50 Mg Tablet) 50 mg PO BEDTIME MRX1 PRN PRN Reason: Insomnia Vitamin D (Cholecalciferol (Vitamin D3) 25 Mcg Tablet) 50 mcg PO DAILY [facility] Last Admin: 12/30/23 11:47 Dose: 50 mcg Zolpidem Tartrate (Zolpidem Tartrate 5 Mg Tablet) 5 mg PO BEDTIME PRN PRN Reason: Insomnia Allergies Allergies Allergy/AdvReac Type Severity Reaction Status Date / Time amoxicillin Allergy Unknown Unknown Uncoded 12/25/23 13:21 Pt states no food allergy Allergy Unknown Unknown Uncoded 12/25/23 13:21 Assessment & Plan Assessment & Plan (1) Bipolar affective disorder, manic, severe, with psychotic behavior: Status: Acute Code(s): F31.2 - Bipolar disorder, current episode manic severe with psychotic features (2) PTSD (post-traumatic stress disorder): Status: Acute Code(s): F43.10 - Post-traumatic stress disorder, unspecified Plan 12/28: taper VPA and lamictal; start tegretol instead. do not restart caplyta; start abilify instead (had been on 20 mg in the past). ambien while hospitalized only for sleep. continue cogentin 0.5 BID and seroquel 25 TID PRN for now. continue porcine thyroid hormone. 12/29: DC lamictal entirely. increase abilify to 10 QHS. otherwise continue current mgmt. less verbose and voluble than yesterday. Reason for continued inpatient stay Substantial Risk for: inability to function and rapid decompensation Time Spent With Patient Time: Total time managing care of this patient today __25__ minutes.
[2023-12-30 17:00] LABS: Glucose, Whole Blood 128 mg/dL (60-115)
[2023-12-30 20:00] VITALS: BP 138/65; PULSE 110; RESP 16; TEMP 36.9; O2SAT 96
[2023-12-30 20:12] LABS: Glucose, Whole Blood 183 mg/dL (60-115)
[2023-12-30] MEDS: Apixaban 2.5 MG TABLET 7.5 MG PO (20:20)
[2023-12-30] MEDS: Atorvastatin Calcium 40 MG TABLET PO (20:22)
[2023-12-30] MEDS: ARIPiprazole 5 MG TABLET PO (20:22)
[2023-12-30] MEDS: Divalproex Sodium 500 MG TABLET.DR 1000 MG PO (20:22)
--- NOTE | 2023-12-30 21:18 | PC.NURSE ---
Pt refused insulin 2 unit per coverage @ 2030
[2023-12-31] MEDS: Omeprazole 20 MG CAPSULE.DR PO (06:06)
[2023-12-31] MEDS: Thyroid,Pork 30 MG TABLET 120 MG PO (06:06)
[2023-12-31 07:00] VITALS: BMI 34.8
[2023-12-31 07:05] VITALS: BP 148/103; PULSE 100; RESP 16; TEMP 36.4; O2SAT 97
[2023-12-31 07:47] LABS: Glucose, Whole Blood 140 mg/dL (60-115)
[2023-12-31] MEDS: Cholecalciferol (Vitamin D3) 25 MCG TABLET 50 MCG PO (08:57)
[2023-12-31] MEDS: Furosemide 20 MG TABLET PO (08:57)
[2023-12-31 08:58] VITALS: BP 161/70; PULSE 100
[2023-12-31] MEDS: carBAMazepine ER 100 MG TAB.ER.12H PO (08:58)
[2023-12-31] MEDS: Metoprolol Succinate ER 25 MG TAB.ER.24H PO (08:58)
[2023-12-31] MEDS: Magnesium Oxide 400 MG TABLET PO ×2 (08:58→17:06)
[2023-12-31] MEDS: Benztropine Mesylate 0.5 MG TABLET PO ×2 (10:03→20:45)
[2023-12-31 11:51] LABS: Glucose, Whole Blood 137 mg/dL (60-115)
[2023-12-31] MEDS: Apixaban 2.5 MG TABLET 7.5 MG PO ×2 (11:51→20:46)
[2023-12-31] MEDS: Milk of Magnesia 30 ML ORAL.SUSP PO (13:38)
--- NOTE | 2023-12-31 14:37 | HO.PSYCHPN ---
Subjective Subjective Date of Service: 12/31/23 Reason For Visit: Mood Disorder Interim History: cooperative, hyperverbal. amenable to increasing abilify and tegretol, decreasing VPA. endorsing AH of bombs going off. unable to entertain the possibility that those are hallucinations. per staff, denies dep/anx. paranoid. denies Sx but RIS. hearing bombs for 45 minutes last night, saying we need to evacuate. aliens are everywhere. slept about 4 hours of broken sleep. Mental Status Exam Mental Status Exam Narrative: Appearance: wearing own clothes, in NAD Psychomotor: no PMA/PMR Speech: clear, incr rate and amount TP: more linear TC: paranoid delusions Mood: good Affect: flexible, hyper-intense, non-labile SI: none expressed HI: none expressed VH/AH: AH of bombs going off Insight/judgment: impaired Memory/cog: alert, oriented x 3. not formally tested but aware of situation and recommended treatment. Diagnostics Vital Signs (24Hr): Vital Signs - 24 hr 12/30/23 20:00 12/31/23 07:05 12/31/23 08:58 Temperature 98.4 F 97.6 F Pulse Rate 110 H 100 100 Respiratory Rate 16 16 Blood Pressure 138/65 148/103 H 161/70 H Pulse Oximetry 96 97 Oxygen Delivery Method Room Air Room Air BMI result Body Mass Index 34.8 Labs 12/25/23 13:48 12/25/23 13:48 Labs: Laboratory Results - last 48 hr 12/29/23 12/29/23 12/30/23 16:48 20:11 07:33 POC Glucose 121 H 114 146 H 12/30/23 12/30/23 12/30/23 11:40 16:43 20:08 POC Glucose 145 H 128 H 183 H 12/31/23 12/31/23 07:42 11:47 POC Glucose 140 H 137 H Medications Medications Current Medications Acetaminophen (Acetaminophen 325 Mg Tablet) 650 mg PO Q6H PRN PRN Reason: Headache/Pain Mild Scale (1-3) Al Hydroxide/Mg Hydroxide (Magnesium Hydrox/Alum Hydrox 30 Ml Oral.Susp) 30 ml PO Q6H PRN PRN Reason: Heartburn/Nausea Apixaban (Apixaban 2.5 Mg Tablet) 7.5 mg PO BID [facility] Last Admin: 12/31/23 11:51 Dose: 7.5 mg Aripiprazole (Aripiprazole 10 Mg Tablet) 10 mg PO BEDTIME [facility] Atorvastatin Calcium (Atorvastatin Calcium 40 Mg Tablet) 40 mg PO BEDTIME [facility] Last Admin: 12/30/23 20:22 Dose: 40 mg Benztropine Mesylate (Benztropine Mesylate 0.5 Mg Tablet) 0.5 mg PO BID [facility] Last Admin: 12/31/23 10:03 Dose: 0.5 mg Carbamazepine (Carbamazepine Er 200 Mg Tab.Er.12h) 200 mg PO BID [facility] Divalproex Sodium (Divalproex Sodium 500 Mg Tablet.) 500 mg PO BEDTIME [facility] Furosemide (Furosemide 20 Mg Tablet) 20 mg PO DAILY [facility]; Protocol Last Admin: 12/31/23 08:57 Dose: 20 mg Insulin Human Lispro (Insulin Lispro 100 Unit/Ml 3 Ml Vial) 0 unit SUBCUT QIDACHS [facility]; Protocol Last Admin: 12/31/23 11:49 Dose: Not Given Magnesium Hydroxide (Milk Of Magnesia 30 Ml Oral.Susp) 30 ml PO DAILY PRN PRN Reason: Constipation Last Admin: 12/31/23 13:38 Dose: 30 ml Magnesium Oxide (Magnesium Oxide 400 Mg Tablet) 400 mg PO BIDPC [facility] Last Admin: 12/31/23 08:58 Dose: 400 mg Melatonin (Melatonin 3 Mg Tablet) 9 mg PO BEDTIME PRN PRN Reason: Insomnia Last Admin: 12/26/23 20:07 Dose: 9 mg Metoprolol Succinate (Metoprolol Succinate Er 25 Mg Tab.Er.24h) 25 mg PO DAILY [facility]; Protocol Last Admin: 12/31/23 08:58 Dose: 25 mg Nicotine Polacrilex (Nicotine Polacrilex 2 Mg Gum) 2 mg BUCCAL Q2H PRN PRN Reason: Nicotine Cravings Non-Formulary Medication (Dulaglutide [Trulicity]) 3 mg SUBCUT Q7D [facility] Omeprazole (Omeprazole 20 Mg Capsule.) 20 mg PO DAILY@0630 [facility] Last Admin: 12/31/23 06:06 Dose: 20 mg Ondansetron HCl (Ondansetron Odt 4 Mg Tab.Rapdis) 4 mg TRANSLINGU Q6H PRN PRN Reason: Nausea Polyethylene Glycol (Polyethylene Glycol 3350 17 Gm Powd.Pack) 17 gm PO DAILY PRN PRN Reason: Constipation Quetiapine Fumarate (Quetiapine Fumarate 25 Mg Tablet) 25 mg PO TID PRN PRN Reason: anxieety Last Admin: 12/26/23 20:06 Dose: 25 mg Thyroid (Thyroid,Pork 30 Mg Tablet) 120 mg PO DAILY@0630 [facility] Last Admin: 12/31/23 06:06 Dose: 120 mg Trazodone HCl (Trazodone Hcl 50 Mg Tablet) 50 mg PO BEDTIME MRX1 PRN PRN Reason: Insomnia Vitamin D (Cholecalciferol (Vitamin D3) 25 Mcg Tablet) 50 mcg PO DAILY [facility] Last Admin: 12/31/23 08:57 Dose: 50 mcg Zolpidem Tartrate (Zolpidem Tartrate 5 Mg Tablet) 5 mg PO BEDTIME PRN PRN Reason: Insomnia Allergies Allergies Allergy/AdvReac Type Severity Reaction Status Date / Time amoxicillin Allergy Unknown Unknown Uncoded 12/25/23 13:21 Pt states no food allergy Allergy Unknown Unknown Uncoded 12/25/23 13:21 Assessment & Plan Assessment & Plan (1) Bipolar affective disorder, manic, severe, with psychotic behavior: Status: Acute Code(s): F31.2 - Bipolar disorder, current episode manic severe with psychotic features (2) PTSD (post-traumatic stress disorder): Status: Acute Code(s): F43.10 - Post-traumatic stress disorder, unspecified Plan 12/28: taper VPA and lamictal; start tegretol instead. do not restart caplyta; start abilify instead (had been on 20 mg in the past). ambien while hospitalized only for sleep. continue cogentin 0.5 BID and seroquel 25 TID PRN for now. continue porcine thyroid hormone. 12/29: DC lamictal entirely. increase abilify to 10 QHS. otherwise continue current mgmt. less verbose and voluble than yesterday. 12/30: increase tegretol to 200 BID, decrease VPA to 500 QHS. will discuss abilify versus vraylar with pt. grossly psychotic today. Reason for continued inpatient stay Substantial Risk for: inability to function Time Spent With Patient Time: Total time managing care of this patient today __35__ minutes.
[2023-12-31 16:46] LABS: Glucose, Whole Blood 119 mg/dL (60-115)
[2023-12-31] MEDS: ARIPiprazole 10 MG TABLET PO (20:45)
[2023-12-31] MEDS: carBAMazepine ER 200 MG TAB.ER.12H PO (20:46)
[2023-12-31] MEDS: Atorvastatin Calcium 40 MG TABLET PO (20:47)
[2023-12-31] MEDS: Divalproex Sodium 500 MG TABLET.DR PO (20:47)
[2023-12-31 21:04] LABS: Glucose, Whole Blood 149 mg/dL (60-115)
[2024-01-01] MEDS: Omeprazole 20 MG CAPSULE.DR PO (06:27)
[2024-01-01] MEDS: Thyroid,Pork 30 MG TABLET 120 MG PO (06:27)
[2024-01-01 07:32] VITALS: BP 184/82; PULSE 102; RESP 14; TEMP 36.9; O2SAT 95
[2024-01-01] MEDS: Furosemide 20 MG TABLET PO (07:45)
[2024-01-01] MEDS: Metoprolol Succinate ER 25 MG TAB.ER.24H PO (07:45)
[2024-01-01 07:50] LABS: Glucose, Whole Blood 119 mg/dL (60-115)
--- NOTE | 2024-01-01 08:24 | PC.NURSE ---
Daily's BP this morning was 184/82 with HR of 102. Metoprolol and Furosemide administered early and per APR and BP was retaken 30 mins later and found to be 152/68 with HR 102.
[2024-01-01] MEDS: Cholecalciferol (Vitamin D3) 25 MCG TABLET 50 MCG PO (08:46)
[2024-01-01] MEDS: carBAMazepine ER 200 MG TAB.ER.12H PO ×2 (08:47→20:56)
[2024-01-01] MEDS: Apixaban 2.5 MG TABLET 7.5 MG PO ×2 (08:47→20:56)
[2024-01-01] MEDS: Magnesium Oxide 400 MG TABLET PO ×2 (08:48→17:27)
[2024-01-01] MEDS: Benztropine Mesylate 0.5 MG TABLET PO ×2 (08:48→20:56)
[2024-01-01 13:01] LABS: Glucose, Whole Blood 174 mg/dL (60-115)
[2024-01-01] MEDS: Insulin Lispro 100 UNIT/ML 3 ML VIAL SUBCUT (13:06)
[2024-01-01] MEDS: Magnesium Hydrox/Alum Hydrox 30 ML ORAL.SUSP PO (13:24)
[2024-01-01] MEDS: QUEtiapine Fumarate 25 MG TABLET PO (13:24)
--- NOTE | 2024-01-01 16:09 | P.PNPSI_ITS ---
Subjective Subjective Date of Service: 01/01/24 Reason For Visit: Mood Disorder Interim History: calm, cooperative, pleasant. agreeable to DC VPA, continue abilify at present dosing for now. remains with paranoid delusions. per staff, dep/anx. explosive affect. labile. FSBS 140, 137. +meds. +grps. hyperverbal, delusional. Mental Status Exam Mental Status Exam Narrative: Appearance: wearing own clothes, in NAD Psychomotor: no PMA/PMR, course tremor in hands B/L Speech: clear, incr rate and amount TP: more linear TC: paranoid delusions Mood: good Affect: flexible, hyper-intense, non-labile SI: none expressed HI: none expressed VH/AH: none expressed Insight/judgment: impaired Memory/cog: alert, oriented x 3. not formally tested but aware of situation and recommended treatment. Diagnostics Vital Signs (24Hr): Vital Signs - 24 hr 01/01/24 07:32 Temperature 98.4 F Pulse Rate 102 H Respiratory Rate 14 Blood Pressure 184/82 H Pulse Oximetry 95 Oxygen Delivery Method Room Air BMI result Body Mass Index 34.8 Labs 12/25/23 13:48 12/25/23 13:48 Labs: Laboratory Results - last 48 hr 12/30/23 12/30/23 12/31/23 16:43 20:08 07:42 POC Glucose 128 H 183 H 140 H 12/31/23 12/31/23 12/31/23 11:47 16:41 20:59 POC Glucose 137 H 119 H 149 H 01/01/24 01/01/24 07:45 12:55 POC Glucose 119 H 174 H Medications Medications Current Medications Acetaminophen (Acetaminophen 325 Mg Tablet) 650 mg PO Q6H PRN PRN Reason: Headache/Pain Mild Scale (1-3) Al Hydroxide/Mg Hydroxide (Magnesium Hydrox/Alum Hydrox 30 Ml Oral.Susp) 30 ml PO Q6H PRN PRN Reason: Heartburn/Nausea Last Admin: 01/01/24 13:24 Dose: 30 ml Apixaban (Apixaban 2.5 Mg Tablet) 7.5 mg PO BID [facility] Last Admin: 01/01/24 08:47 Dose: 7.5 mg Aripiprazole (Aripiprazole 10 Mg Tablet) 10 mg PO BEDTIME [facility] Last Admin: 12/31/23 20:45 Dose: 10 mg Atorvastatin Calcium (Atorvastatin Calcium 40 Mg Tablet) 40 mg PO BEDTIME [facility] Last Admin: 12/31/23 20:47 Dose: 40 mg Benztropine Mesylate (Benztropine Mesylate 0.5 Mg Tablet) 0.5 mg PO BID [facility] Last Admin: 01/01/24 08:48 Dose: 0.5 mg Carbamazepine (Carbamazepine Er 200 Mg Tab.Er.12h) 200 mg PO BID [facility] Last Admin: 01/01/24 08:47 Dose: 200 mg Furosemide (Furosemide 20 Mg Tablet) 20 mg PO DAILY [facility]; Protocol Last Admin: 01/01/24 07:45 Dose: 20 mg Insulin Human Lispro (Insulin Lispro 100 Unit/Ml 3 Ml Vial) 0 unit SUBCUT QIDACHS [facility]; Protocol Last Admin: 01/01/24 13:06 Dose: 2 unit Magnesium Hydroxide (Milk Of Magnesia 30 Ml Oral.Susp) 30 ml PO DAILY PRN PRN Reason: Constipation Last Admin: 12/31/23 13:38 Dose: 30 ml [facility] Last Admin: 01/01/24 08:48 Dose: 400 mg Melatonin (Melatonin 3 Mg Tablet) 9 mg PO BEDTIME PRN PRN Reason: Insomnia Last Admin: 12/26/23 20:07 Dose: 9 mg Metoprolol Succinate (Metoprolol Succinate Er 25 Mg Tab.Er.24h) 25 mg PO DAILY [facility]; Protocol Last Admin: 01/01/24 07:45 Dose: 25 mg Nicotine Polacrilex (Nicotine Polacrilex 2 Mg Gum) 2 mg BUCCAL Q2H PRN PRN Reason: Nicotine Cravings Non-Formulary Medication (Dulaglutide [Trulicity]) 3 mg SUBCUT Q7D [facility] Omeprazole (Omeprazole 20 Mg Capsule.Dr) 20 mg PO DAILY@0630 [facility] Last Admin: 01/01/24 06:27 Dose: 20 mg Ondansetron HCl (Ondansetron Odt 4 Mg Tab.Rapdis) 4 mg TRANSLINGU Q6H PRN PRN Reason: Nausea Polyethylene Glycol (Polyethylene Glycol 3350 17 Gm Powd.Pack) 17 gm PO DAILY PRN PRN Reason: Constipation Quetiapine Fumarate (Quetiapine Fumarate 25 Mg Tablet) 25 mg PO TID PRN PRN Reason: anxieety Last Admin: 01/01/24 13:24 Dose: 25 mg Thyroid (Thyroid,Pork 30 Mg Tablet) 120 mg PO DAILY@0630 [facility] Last Admin: 01/01/24 06:27 Dose: 120 mg Trazodone HCl (Trazodone Hcl 50 Mg Tablet) 50 mg PO BEDTIME MRX1 PRN PRN Reason: Insomnia Vitamin D (Cholecalciferol (Vitamin D3) 25 Mcg Tablet) 50 mcg PO DAILY [facility] Last Admin: 01/01/24 08:46 Dose: 50 mcg Zolpidem Tartrate (Zolpidem Tartrate 5 Mg Tablet) 5 mg PO BEDTIME PRN PRN Reason: Insomnia Allergies Allergies Allergy/AdvReac Type Severity Reaction Status Date / Time amoxicillin Allergy Unknown Unknown Uncoded 12/25/23 13:21 Pt states no food allergy Allergy Unknown Unknown Uncoded 12/25/23 13:21 Assessment & Plan Assessment & Plan (1) Bipolar affective disorder, manic, severe, with psychotic behavior: Status: Acute Code(s): F31.2 - Bipolar disorder, current episode manic severe with psychotic features (2) PTSD (post-traumatic stress disorder): Status: Acute Code(s): F43.10 - Post-traumatic stress disorder, unspecified Plan 12/28: taper VPA and lamictal; start tegretol instead. do not restart caplyta; start abilify instead (had been on 20 mg in the past). ambien while hospitalized only for sleep. continue cogentin 0.5 BID and seroquel 25 TID PRN for now. continue porcine thyroid hormone. 12/29: DC lamictal entirely. increase abilify to 10 QHS. otherwise continue current mgmt. less verbose and voluble than yesterday. 12/30: increase tegretol to 200 BID, decrease VPA to 500 QHS. will discuss abilify versus vraylar with pt. grossly psychotic today. 12/31: DC VPA. declining vraylar, insisting on staying on abilify. becca slightly improved. Reason for continued inpatient stay Substantial Risk for: inability to function Time Spent With Patient Time: Total time managing care of this patient today __25__ minutes.
[2024-01-01 17:23] LABS: Glucose, Whole Blood 100 mg/dL (60-115)
[2024-01-01 20:03] VITALS: BP 146/67; PULSE 99; RESP 16; TEMP 36.8; O2SAT 94
[2024-01-01 20:54] LABS: Glucose, Whole Blood 132 mg/dL (60-115)
[2024-01-01] MEDS: ARIPiprazole 10 MG TABLET PO (20:56)
[2024-01-01] MEDS: Zolpidem Tartrate 5 MG TABLET PO (20:56)
[2024-01-01] MEDS: Melatonin 3 MG TABLET 9 MG PO (20:56)
[2024-01-01] MEDS: Atorvastatin Calcium 40 MG TABLET PO (20:56)
[2024-01-02] MEDS: Omeprazole 20 MG CAPSULE.DR PO (06:19)
[2024-01-02] MEDS: Thyroid,Pork 30 MG TABLET 120 MG PO (06:19)
[2024-01-02 07:39] LABS: Glucose, Whole Blood 123 mg/dL (60-115)
[2024-01-02 08:00] VITALS: BP 147/63; PULSE 89; RESP 16; TEMP 36.8; O2SAT 95
[2024-01-02] MEDS: Furosemide 20 MG TABLET PO (08:08)
[2024-01-02] MEDS: Apixaban 2.5 MG TABLET 7.5 MG PO ×2 (08:09→21:10)
[2024-01-02] MEDS: Metoprolol Succinate ER 25 MG TAB.ER.24H PO (08:09)
[2024-01-02] MEDS: Cholecalciferol (Vitamin D3) 25 MCG TABLET 50 MCG PO (08:10)
[2024-01-02] MEDS: carBAMazepine ER 200 MG TAB.ER.12H PO ×2 (08:10→21:10)
[2024-01-02] MEDS: Benztropine Mesylate 0.5 MG TABLET PO ×2 (08:10→21:10)
[2024-01-02] MEDS: Magnesium Oxide 400 MG TABLET PO ×2 (08:10→17:10)
[2024-01-02 12:16] LABS: Glucose, Whole Blood 106 mg/dL (60-115)
[2024-01-02 16:53] LABS: Glucose, Whole Blood 148 mg/dL (60-115)
--- NOTE | 2024-01-02 20:39 | P.PNPSI_ITS ---
Subjective Subjective Date of Service: 01/02/24 Reason For Visit: Mood Disorder Interim History: slept well, would like to stay with abilify 10 mg for now. appears more organized and calm than prior. per staff, restless, bizarre yesterday. Mental Status Exam Mental Status Exam Narrative: Appearance: wearing own clothes, in NAD Psychomotor: no PMA/PMR, course tremor in hands B/L Speech: clear, incr rate and amount TP: more linear TC: paranoid delusions Mood: good Affect: flexible, hyper-intense, non-labile SI: none expressed HI: none expressed VH/AH: none expressed Insight/judgment: impaired Memory/cog: alert, oriented x 3. not formally tested but aware of situation and recommended treatment. Diagnostics Vital Signs (24Hr): Vital Signs - 24 hr 01/02/24 08:00 Temperature 98.3 F Pulse Rate 89 Respiratory Rate 16 Blood Pressure 147/63 H Pulse Oximetry 95 Oxygen Delivery Method Room Air BMI result Body Mass Index 34.8 Labs 12/25/23 13:48 12/25/23 13:48 Labs: Laboratory Results - last 48 hr 12/31/23 01/01/24 01/01/24 20:59 07:45 12:55 POC Glucose 149 H 119 H 174 H 01/01/24 01/01/24 01/02/24 17:19 20:50 07:33 POC Glucose 100 132 H 123 H 01/02/24 01/02/24 12:11 16:49 POC Glucose 106 148 H Medications Medications Current Medications Acetaminophen (Acetaminophen 325 Mg Tablet) 650 mg PO Q6H PRN PRN Reason: Headache/Pain Mild Scale (1-3) Al Hydroxide/Mg Hydroxide (Magnesium Hydrox/Alum Hydrox 30 Ml Oral.Susp) 30 ml PO Q6H PRN PRN Reason: Heartburn/Nausea Last Admin: 01/01/24 13:24 Dose: 30 ml Apixaban (Apixaban 2.5 Mg Tablet) 7.5 mg PO BID [facility] Last Admin: 01/02/24 08:09 Dose: 7.5 mg Aripiprazole (Aripiprazole 10 Mg Tablet) 10 mg PO BEDTIME [facility] Last Admin: 01/01/24 20:56 Dose: 10 mg Atorvastatin Calcium (Atorvastatin Calcium 40 Mg Tablet) 40 mg PO BEDTIME [facility] Last Admin: 01/01/24 20:56 Dose: 40 mg Benztropine Mesylate (Benztropine Mesylate 0.5 Mg Tablet) 0.5 mg PO BID [facility] Last Admin: 01/02/24 08:10 Dose: 0.5 mg Carbamazepine (Carbamazepine Er 200 Mg Tab.Er.12h) 200 mg PO BID [facility] Last Admin: 01/02/24 08:10 Dose: 200 mg Furosemide (Furosemide 20 Mg Tablet) 20 mg PO DAILY [facility]; Protocol Last Admin: 01/02/24 08:08 Dose: 20 mg Insulin Human Lispro (Insulin Lispro 100 Unit/Ml 3 Ml Vial) 0 unit SUBCUT QIDACHS [facility]; Protocol Last Admin: 01/02/24 16:56 Dose: Not Given Magnesium Hydroxide (Milk Of Magnesia 30 Ml Oral.Susp) 30 ml PO DAILY PRN PRN Reason: Constipation Last Admin: 12/31/23 13:38 Dose: 30 ml [facility] Oxide ([facility] Last Admin: 01/02/24 17:10 Dose: 400 mg Melatonin (Melatonin 3 Mg Tablet) 9 mg PO BEDTIME PRN PRN Reason: Insomnia Last Admin: 01/01/24 20:56 Dose: 9 mg Metoprolol Succinate (Metoprolol Succinate Er 25 Mg Tab.Er.24h) 25 mg PO DAILY [facility]; Protocol Last Admin: 01/02/24 08:09 Dose: 25 mg Nicotine Polacrilex (Nicotine Polacrilex 2 Mg Gum) 2 mg BUCCAL Q2H PRN PRN Reason: Nicotine Cravings Non-Formulary Medication (Dulaglutide [Trulicity]) 3 mg SUBCUT Q7D [facility] Omeprazole (Omeprazole 20 Mg Capsule.Dr) 20 mg PO DAILY@30 [facility] Last Admin: 01/02/24 06:19 Dose: 20 mg Ondansetron HCl (Ondansetron Odt 4 Mg Tab.Rapdis) 4 mg TRANSLINGU Q6H PRN PRN Reason: Nausea Polyethylene Glycol (Polyethylene Glycol 3350 17 Gm Powd.Pack) 17 gm PO DAILY PRN PRN Reason: Constipation Quetiapine Fumarate (Quetiapine Fumarate 25 Mg Tablet) 25 mg PO TID PRN PRN Reason: anxieety Last Admin: 01/01/24 13:24 Dose: 25 mg Thyroid (Thyroid,Pork 30 Mg Tablet) 120 mg PO DAILY@0630 [facility] Last Admin: 01/02/24 06:19 Dose: 120 mg Trazodone HCl (Trazodone Hcl 50 Mg Tablet) 50 mg PO BEDTIME MRX1 PRN PRN Reason: Insomnia Vitamin D (Cholecalciferol (Vitamin D3) 25 Mcg Tablet) 50 mcg PO DAILY [facility] Last Admin: 01/02/24 08:10 Dose: 50 mcg Zolpidem Tartrate (Zolpidem Tartrate 5 Mg Tablet) 5 mg PO BEDTIME PRN PRN Reason: Insomnia Last Admin: 01/01/24 20:56 Dose: 5 mg Allergies Allergies Allergy/AdvReac Type Severity Reaction Status Date / Time amoxicillin Allergy Unknown Unknown Uncoded 12/25/23 13:21 Pt states no food allergy Allergy Unknown Unknown Uncoded 12/25/23 13:21 Assessment & Plan Assessment & Plan (1) Bipolar affective disorder, manic, severe, with psychotic behavior: Status: Acute Code(s): F31.2 - Bipolar disorder, current episode manic severe with psychotic features (2) PTSD (post-traumatic stress disorder): Status: Acute Code(s): F43.10 - Post-traumatic stress disorder, unspecified Plan 12/28: taper VPA and lamictal; start tegretol instead. do not restart caplyta; start abilify instead (had been on 20 mg in the past). ambien while hospitalized only for sleep. continue cogentin 0.5 BID and seroquel 25 TID PRN for now. continue porcine thyroid hormone. 12/29: DC lamictal entirely. increase abilify to 10 QHS. otherwise continue current mgmt. less verbose and voluble than yesterday. 12/30: increase tegretol to 200 BID, decrease VPA to 500 QHS. will discuss abilify versus vraylar with pt. grossly psychotic today. 12/31: DC VPA. declining vraylar, insisting on staying on abilify. becca slightly improved. 01/01: improved manic Sx. continue current mgmt. prefers to stay at abilify 10 for now. Reason for continued inpatient stay Substantial Risk for: inability to function and rapid decompensation Time Spent With Patient Time: Total time managing care of this patient today ____ minutes.
[2024-01-02] MEDS: ARIPiprazole 10 MG TABLET PO (21:10)
[2024-01-02] MEDS: Atorvastatin Calcium 40 MG TABLET PO (21:10)
[2024-01-02] MEDS: Zolpidem Tartrate 5 MG TABLET PO (21:10)
[2024-01-02 21:11] LABS: Glucose, Whole Blood 153 mg/dL (60-115)
[2024-01-03] MEDS: Omeprazole 20 MG CAPSULE.DR PO (06:51)
[2024-01-03] MEDS: Thyroid,Pork 30 MG TABLET 120 MG PO (06:52)
[2024-01-03 07:46] LABS: Glucose, Whole Blood 192 mg/dL (60-115)
[2024-01-03 08:00] VITALS: BP 129/59; PULSE 96; RESP 18; TEMP 36.5; O2SAT 96
[2024-01-03] MEDS: Apixaban 2.5 MG TABLET 7.5 MG PO ×2 (08:20→20:29)
[2024-01-03] MEDS: Metoprolol Succinate ER 25 MG TAB.ER.24H PO (08:20)
[2024-01-03] MEDS: Cholecalciferol (Vitamin D3) 25 MCG TABLET 50 MCG PO (08:21)
[2024-01-03] MEDS: carBAMazepine ER 200 MG TAB.ER.12H PO ×2 (08:21→20:29)
[2024-01-03] MEDS: Furosemide 20 MG TABLET PO (08:21)
[2024-01-03] MEDS: Benztropine Mesylate 0.5 MG TABLET PO ×2 (08:21→20:30)
[2024-01-03] MEDS: Magnesium Oxide 400 MG TABLET PO ×2 (08:21→17:14)
[2024-01-03 12:54] LABS: Glucose, Whole Blood 138 mg/dL (60-115)
--- NOTE | 2024-01-03 14:25 | PC.NURSE ---
Patient refused Insulin 2 units per coverage.
[2024-01-03 16:06] LABS: Glucose, Whole Blood 126 mg/dL (60-115)
--- NOTE | 2024-01-03 18:15 | HO.PSYCHPN ---
Subjective Subjective Date of Service: 01/03/24 Reason For Visit: Mood Disorder Interim History: calm, cooperative. continues to appear improved from admission in terms of becca Sx. asking for business systems architect for pacemaker, which was provided. agreeable to increase abilify to 15 mg QHS. per staff, more linear and organized. refused insulin coverage. slept only 1-2 hours. Mental Status Exam Mental Status Exam Narrative: Appearance: wearing own clothes, in NAD Psychomotor: no PMA/PMR, course tremor in hands B/L Speech: clear, incr rate and amount TP: more linear TC: paranoid delusions Mood: good Affect: flexible, hyper-intense, non-labile SI: none expressed HI: none expressed VH/AH: none expressed Insight/judgment: impaired Memory/cog: alert, oriented x 3. not formally tested but aware of situation and recommended treatment. Diagnostics Vital Signs (24Hr): Vital Signs - 24 hr 01/03/24 08:00 Temperature 97.7 F Pulse Rate 96 Respiratory Rate 18 Blood Pressure 129/59 L Pulse Oximetry 96 Oxygen Delivery Method Room Air BMI result Body Mass Index 34.8 Labs 12/25/23 13:48 12/25/23 13:48 Labs: Laboratory Results - last 48 hr 01/01/24 01/02/24 01/02/24 20:50 07:33 12:11 POC Glucose 132 H 123 H 106 01/02/24 01/02/24 01/03/24 16:49 21:06 07:43 POC Glucose 148 H 153 H 192 H 01/03/24 01/03/24 12:47 16:00 POC Glucose 138 H 126 H Medications Medications Current Medications Acetaminophen (Acetaminophen 325 Mg Tablet) 650 mg PO Q6H PRN PRN Reason: Headache/Pain Mild Scale (1-3) Al Hydroxide/Mg Hydroxide (Magnesium Hydrox/Alum Hydrox 30 Ml Oral.Susp) 30 ml PO Q6H PRN PRN Reason: Heartburn/Nausea Last Admin: 01/01/24 13:24 Dose: 30 ml Apixaban (Apixaban 2.5 Mg Tablet) 7.5 mg PO BID [facility] Last Admin: 01/03/24 08:20 Dose: 7.5 mg Aripiprazole (Aripiprazole 15 Mg Tablet) 15 mg PO BEDTIME [facility] Atorvastatin Calcium (Atorvastatin Calcium 40 Mg Tablet) 40 mg PO BEDTIME [facility] Last Admin: 01/02/24 21:10 Dose: 40 mg Benztropine Mesylate (Benztropine Mesylate 0.5 Mg Tablet) 0.5 mg PO BID [facility] Last Admin: 01/03/24 08:21 Dose: 0.5 mg Carbamazepine (Carbamazepine Er 200 Mg Tab.Er.12h) 200 mg PO BID [facility] Last Admin: 01/03/24 08:21 Dose: 200 mg Furosemide (Furosemide 20 Mg Tablet) 20 mg PO DAILY [facility]; Protocol Last Admin: 01/03/24 08:21 Dose: 20 mg Insulin Human Lispro (Insulin Lispro 100 Unit/Ml 3 Ml Vial) 0 unit SUBCUT QIDACHS [facility]; Protocol Last Admin: 01/03/24 17:21 Dose: Not Given Magnesium Hydroxide (Milk Of Magnesia 30 Ml Oral.Susp) 30 ml PO DAILY PRN PRN Reason: Constipation Last Admin: 12/31/23 13:38 Dose: 30 ml [facility]ide ([facility] 400 Mg [facility]t) [facility] Last Admin: 01/03/24 17:14 Dose: 400 mg Melatonin (Melatonin 3 Mg Tablet) 9 mg PO BEDTIME PRN PRN Reason: Insomnia Last Admin: 01/01/24 20:56 Dose: 9 mg Metoprolol Succinate (Metoprolol Succinate Er 25 Mg Tab.Er.24h) 25 mg PO DAILY [facility]; Protocol Last Admin: 01/03/24 08:20 Dose: 25 mg Nicotine Polacrilex (Nicotine Polacrilex 2 Mg Gum) 2 mg BUCCAL Q2H PRN PRN Reason: Nicotine Cravings Non-Formulary Medication (Dulaglutide [Trulicity]) 3 mg SUBCUT Q7D [facility] Omeprazole (Omeprazole 20 Mg Capsule.Dr) 20 mg PO DAILY@0630 [facility] Last Admin: 01/03/24 06:51 Dose: 20 mg Ondansetron HCl (Ondansetron Odt 4 Mg Tab.Rapdis) 4 mg TRANSLINGU Q6H PRN PRN Reason: Nausea Polyethylene Glycol (Polyethylene Glycol 3350 17 Gm Powd.Pack) 17 gm PO DAILY PRN PRN Reason: Constipation Quetiapine Fumarate (Quetiapine Fumarate 25 Mg Tablet) 25 mg PO TID PRN PRN Reason: anxieety Last Admin: 01/01/24 13:24 Dose: 25 mg Thyroid (Thyroid,Pork 30 Mg Tablet) 120 mg PO DAILY@0630 [facility] Last Admin: 01/03/24 06:52 Dose: 120 mg Trazodone HCl (Trazodone Hcl 50 Mg Tablet) 50 mg PO BEDTIME MRX1 PRN PRN Reason: Insomnia Vitamin D (Cholecalciferol (Vitamin D3) 25 Mcg Tablet) 50 mcg PO DAILY [facility] Last Admin: 01/03/24 08:21 Dose: 50 mcg Zolpidem Tartrate (Zolpidem Tartrate 5 Mg Tablet) 5 mg PO BEDTIME PRN PRN Reason: Insomnia Last Admin: 01/02/24 21:10 Dose: 5 mg Allergies Allergies Allergy/AdvReac Type Severity Reaction Status Date / Time amoxicillin Allergy Unknown Unknown Uncoded 12/25/23 13:21 Pt states no food allergy Allergy Unknown Unknown Uncoded 12/25/23 13:21 Assessment & Plan Assessment & Plan (1) Bipolar affective disorder, manic, severe, with psychotic behavior: Status: Acute Code(s): F31.2 - Bipolar disorder, current episode manic severe with psychotic features (2) PTSD (post-traumatic stress disorder): Status: Acute Code(s): F43.10 - Post-traumatic stress disorder, unspecified Plan 12/28: taper VPA and lamictal; start tegretol instead. do not restart caplyta; start abilify instead (had been on 20 mg in the past). ambien while hospitalized only for sleep. continue cogentin 0.5 BID and seroquel 25 TID PRN for now. continue porcine thyroid hormone. 12/29: DC lamictal entirely. increase abilify to 10 QHS. otherwise continue current mgmt. less verbose and voluble than yesterday. 12/30: increase tegretol to 200 BID, decrease VPA to 500 QHS. will discuss abilify versus vraylar with pt. grossly psychotic today. 12/31: DC VPA. declining vraylar, insisting on staying on abilify. becca slightly improved. 01/01: improved manic Sx. continue current mgmt. prefers to stay at abilify 10 for now. 01/02: remains mildly improved. increase abilify to 15 mg tonight. continue regimen otherwise. Reason for continued inpatient stay Substantial Risk for: inability to function and rapid decompensation Time Spent With Patient Time: Total time managing care of this patient today ____ minutes.
[2024-01-03 20:00] VITALS: RESP 16
[2024-01-03 20:11] LABS: Glucose, Whole Blood 151 mg/dL (60-115)
[2024-01-03] MEDS: Atorvastatin Calcium 40 MG TABLET PO (20:30)
[2024-01-03] MEDS: ARIPiprazole 15 MG TABLET PO (20:30)
[2024-01-04] MEDS: Thyroid,Pork 30 MG TABLET 120 MG PO (05:30)
[2024-01-04] MEDS: Omeprazole 20 MG CAPSULE.DR PO (06:25)
[2024-01-04 07:35] VITALS: BP 149/85; PULSE 103; RESP 16; TEMP 36.6; O2SAT 94
[2024-01-04 07:39] LABS: Glucose, Whole Blood 128 mg/dL (60-115)
[2024-01-04] MEDS: Cholecalciferol (Vitamin D3) 25 MCG TABLET 50 MCG PO (08:13)
[2024-01-04] MEDS: carBAMazepine ER 200 MG TAB.ER.12H PO ×2 (08:13→20:31)
[2024-01-04 08:14] VITALS: BP 149/85; PULSE 103
[2024-01-04] MEDS: Benztropine Mesylate 0.5 MG TABLET PO ×2 (08:14→20:31)
[2024-01-04] MEDS: Metoprolol Succinate ER 25 MG TAB.ER.24H PO (08:14)
[2024-01-04] MEDS: Furosemide 20 MG TABLET PO (08:14)
[2024-01-04] MEDS: Magnesium Oxide 400 MG TABLET PO ×2 (08:14→16:36)
[2024-01-04] MEDS: Apixaban 2.5 MG TABLET 7.5 MG PO ×2 (08:14→20:31)
[2024-01-04] MEDS: Ondansetron ODT 4 MG TAB.RAPDIS TRANSLINGU (08:29)
[2024-01-04] MEDS: QUEtiapine Fumarate 25 MG TABLET PO ×2 (08:29→20:31)
[2024-01-04 12:35] LABS: Glucose, Whole Blood 121 mg/dL (60-115)
--- NOTE | 2024-01-04 16:08 | HO.PSYCHPN ---
Subjective Subjective Date of Service: 01/04/24 Reason For Visit: Mood Disorder Interim History: improving. agrees to increae abilify to 20 mg QHS. mood good, but tired. per staff, refusing insulin. anxious and depressed. labile, taking meds. directive and dismissive. Mental Status Exam Mental Status Exam Narrative: Appearance: wearing own clothes, in NAD Psychomotor: no PMA/PMR, course tremor in hands B/L Speech: clear, incr rate, nml amount TP: more linear TC: paranoid delusions Mood: good Affect: flexible, hyper-intense, non-labile SI: none expressed HI: none expressed VH/AH: none expressed Insight/judgment: impaired Memory/cog: alert, oriented x 3. not formally tested but aware of situation and recommended treatment. Diagnostics Vital Signs (24Hr): Vital Signs - 24 hr 01/03/24 20:00 01/04/24 07:35 01/04/24 08:14 Temperature 97.8 F Pulse Rate 103 H Respiratory Rate 16 16 Blood Pressure 149/85 H 149/85 H Pulse Oximetry 94 Oxygen Delivery Method Room Air 01/04/24 08:14 Temperature Pulse Rate 103 H Respiratory Rate Blood Pressure 149/85 H Pulse Oximetry Oxygen Delivery Method BMI result Body Mass Index 34.8 Labs 12/25/23 13:48 12/25/23 13:48 Labs: Laboratory Results - last 48 hr 01/02/24 01/02/24 01/03/24 16:49 21:06 07:43 POC Glucose 148 H 153 H 192 H 01/03/24 01/03/24 01/03/24 12:47 16:00 20:06 POC Glucose 138 H 126 H 151 H 01/04/24 01/04/24 07:35 12:31 POC Glucose 128 H 121 H Medications Medications Current Medications Acetaminophen (Acetaminophen 325 Mg Tablet) 650 mg PO Q6H PRN PRN Reason: Headache/Pain Mild Scale (1-3) Al Hydroxide/Mg Hydroxide (Magnesium Hydrox/Alum Hydrox 30 Ml Oral.Susp) 30 ml PO Q6H PRN PRN Reason: Heartburn/Nausea Last Admin: 01/01/24 13:24 Dose: 30 ml Apixaban (Apixaban 2.5 Mg Tablet) 7.5 mg PO BID [facility] Last Admin: 01/04/24 08:14 Dose: 7.5 mg Aripiprazole (Aripiprazole 20 Mg Tablet) 20 mg PO BEDTIME [facility] Atorvastatin Calcium (Atorvastatin Calcium 40 Mg Tablet) 40 mg PO BEDTIME [facility] Last Admin: 01/03/24 20:30 Dose: 40 mg Benztropine Mesylate (Benztropine Mesylate 0.5 Mg Tablet) 0.5 mg PO BID [facility] Last Admin: 01/04/24 08:14 Dose: 0.5 mg Carbamazepine (Carbamazepine Er 200 Mg Tab.Er.12h) 200 mg PO BID [facility] Last Admin: 01/04/24 08:13 Dose: 200 mg Furosemide (Furosemide 20 Mg Tablet) 20 mg PO DAILY [facility]; Protocol Last Admin: 01/04/24 08:14 Dose: 20 mg Insulin Human Lispro (Insulin Lispro 100 Unit/Ml 3 Ml Vial) 0 unit SUBCUT QIDACHS [facility]; Protocol Last Admin: 01/04/24 13:20 Dose: Not Given Magnesium Hydroxide (Milk Of Magnesia 30 Ml Oral.Susp) 30 ml PO DAILY PRN PRN Reason: Constipation Last Admin: 12/31/23 13:38 Dose: 30 ml Magnesium Oxide (Magnesium [facility]ide 400 Mg Tablet) [facility] Last Admin: 01/04/24 08:14 Dose: 400 mg Melatonin (Melatonin 3 Mg Tablet) 9 mg PO BEDTIME PRN PRN Reason: Insomnia Last Admin: 01/01/24 20:56 Dose: 9 mg Metoprolol Succinate (Metoprolol Succinate Er 25 Mg Tab.Er.24h) 25 mg PO DAILY [facility]; Protocol Last Admin: 01/04/24 08:14 Dose: 25 mg Nicotine Polacrilex (Nicotine Polacrilex 2 Mg Gum) 2 mg BUCCAL Q2H PRN PRN Reason: Nicotine Cravings Non-Formulary Medication (Dulaglutide [Trulicity]) 3 mg SUBCUT Q7D [facility] Omeprazole (Omeprazole 20 Mg Capsule.Dr) 20 mg PO DAILY@0630 [facility] Last Admin: 01/04/24 06:25 Dose: 20 mg Ondansetron HCl (Ondansetron Odt 4 Mg Tab.Rapdis) 4 mg TRANSLINGU Q6H PRN PRN Reason: Nausea Last Admin: 01/04/24 08:29 Dose: 4 mg Polyethylene Glycol (Polyethylene Glycol 3350 17 Gm Powd.Pack) 17 gm PO DAILY PRN PRN Reason: Constipation Quetiapine Fumarate (Quetiapine Fumarate 25 Mg Tablet) 25 mg PO TID PRN PRN Reason: anxieety Last Admin: 01/04/24 08:29 Dose: 25 mg Thyroid (Thyroid,Pork 30 Mg Tablet) 120 mg PO DAILY@0630 [facility] Last Admin: 01/04/24 05:30 Dose: 120 mg Trazodone HCl (Trazodone Hcl 50 Mg Tablet) 50 mg PO BEDTIME MRX1 PRN PRN Reason: Insomnia Vitamin D (Cholecalciferol (Vitamin D3) 25 Mcg Tablet) 50 mcg PO DAILY [facility] Last Admin: 01/04/24 08:13 Dose: 50 mcg Zolpidem Tartrate (Zolpidem Tartrate 5 Mg Tablet) 5 mg PO BEDTIME PRN PRN Reason: Insomnia Last Admin: 01/02/24 21:10 Dose: 5 mg Allergies Allergies Allergy/AdvReac Type Severity Reaction Status Date / Time amoxicillin Allergy Unknown Unknown Uncoded 12/25/23 13:21 Pt states no food allergy Allergy Unknown Unknown Uncoded 12/25/23 13:21 Assessment & Plan Assessment & Plan (1) Bipolar affective disorder, manic, severe, with psychotic behavior: Status: Acute Code(s): F31.2 - Bipolar disorder, current episode manic severe with psychotic features (2) PTSD (post-traumatic stress disorder): Status: Acute Code(s): F43.10 - Post-traumatic stress disorder, unspecified Plan 12/28: taper VPA and lamictal; start tegretol instead. do not restart caplyta; start abilify instead (had been on 20 mg in the past). ambien while hospitalized only for sleep. continue cogentin 0.5 BID and seroquel 25 TID PRN for now. continue porcine thyroid hormone. 12/29: DC lamictal entirely. increase abilify to 10 QHS. otherwise continue current mgmt. less verbose and voluble than yesterday. 12/30: increase tegretol to 200 BID, decrease VPA to 500 QHS. will discuss abilify versus vraylar with pt. grossly psychotic today. 12/31: DC VPA. declining vraylar, insisting on staying on abilify. becca slightly improved. 01/01: improved manic Sx. continue current mgmt. prefers to stay at abilify 10 for now. 01/02: remains mildly improved. increase abilify to 15 mg tonight. continue regimen otherwise. 01/03: increase abilify to 20 mg QHS. remains highly impaired, but mildly improved from earlier in stay. continue current mgmt otherwise. Reason for continued inpatient stay Substantial Risk for: inability to function and rapid decompensation Time Spent With Patient Time: Total time managing care of this patient today __25__ minutes.
[2024-01-04 16:45] LABS: Glucose, Whole Blood 132 mg/dL (60-115)
[2024-01-04 20:00] VITALS: BP 150/76; PULSE 95; TEMP 36.9; O2SAT 98
[2024-01-04] MEDS: Atorvastatin Calcium 40 MG TABLET PO (20:31)
[2024-01-04] MEDS: Zolpidem Tartrate 5 MG TABLET PO (20:31)
[2024-01-04] MEDS: ARIPiprazole 20 MG TABLET PO (20:31)
--- NOTE | 2024-01-05 03:21 | PC.NURSE ---
Daily refused POC this evening @ .
[2024-01-05] MEDS: Omeprazole 20 MG CAPSULE.DR PO (06:38)
[2024-01-05] MEDS: Thyroid,Pork 30 MG TABLET 120 MG PO (06:38)
[2024-01-05 07:54] LABS: Glucose, Whole Blood 121 mg/dL (60-115)
[2024-01-05 08:00] VITALS: BP 123/58; PULSE 90; RESP 14; TEMP 36.8; O2SAT 95
[2024-01-05] MEDS: Furosemide 20 MG TABLET PO (08:35)
[2024-01-05] MEDS: Metoprolol Succinate ER 25 MG TAB.ER.24H PO (08:35)
[2024-01-05] MEDS: Apixaban 2.5 MG TABLET 7.5 MG PO ×2 (08:35→20:05)
[2024-01-05] MEDS: carBAMazepine ER 200 MG TAB.ER.12H PO ×2 (08:36→19:52)
[2024-01-05] MEDS: Cholecalciferol (Vitamin D3) 25 MCG TABLET 50 MCG PO (08:36)
[2024-01-05] MEDS: Magnesium Oxide 400 MG TABLET PO (08:36)
[2024-01-05] MEDS: Benztropine Mesylate 0.5 MG TABLET PO ×2 (08:37→20:05)
--- NOTE | 2024-01-05 09:05 | HO.PSYCHPN ---
Subjective Subjective Date of Service: 01/05/24 Reason For Visit: Mood Disorder Subjective Notes: Conditional Voluntary Interim History: Pt slept most of the night. Although calmer, she does present with paranoid delusions, stating that she may need to go home with someone as there have been many suspicious things going on at her house and with her sister. She is in agreement to take medications, thinks tegretol is helping. She denies SI/HI. Review of Systems Review of Systems Yes all other systems are reviewed and are negative Constitutional: Denies fatigue and Denies fever(s) Cardiovascular: Denies chest pain and Denies dyspnea Respiratory: Denies dyspnea Gastrointestinal: Denies abdominal pain Endocrine: Denies fatigue Mental Status Exam Mental Status Exam Narrative: Appearance: wearing own clothes, in NAD Psychomotor: no PMA/PMR, course tremor in hands B/L Speech: clear, incr rate, nml amount TP: more linear TC: paranoid delusions Mood: good Affect: flexible, hyper-intense, non-labile SI: none expressed HI: none expressed VH/AH: none expressed Delusions: some paranoid delusions Insight/judgment: impaired Memory/cog: alert, oriented x 3. Diagnostics Vital Signs (24Hr): Vital Signs - 24 hr 01/04/24 20:00 01/05/24 08:00 Temperature 98.4 F 98.2 F Pulse Rate 95 90 Respiratory Rate 14 Blood Pressure 150/76 H 123/58 L Pulse Oximetry 98 95 Oxygen Delivery Method Room Air Room Air BMI result Body Mass Index 34.8 Labs 12/25/23 13:48 12/25/23 13:48 Labs: Laboratory Results - last 48 hr 01/03/24 01/03/24 01/03/24 12:47 16:00 20:06 POC Glucose 138 H 126 H 151 H 01/04/24 01/04/24 01/04/24 07:35 12:31 16:40 POC Glucose 128 H 121 H 132 H 01/05/24 07:50 POC Glucose 121 H Medications Medications Current Medications Acetaminophen (Acetaminophen 325 Mg Tablet) 650 mg PO Q6H PRN PRN Reason: Headache/Pain Mild Scale (1-3) Al Hydroxide/Mg Hydroxide (Magnesium Hydrox/Alum Hydrox 30 Ml Oral.Susp) 30 ml PO Q6H PRN PRN Reason: Heartburn/Nausea Last Admin: 01/01/24 13:24 Dose: 30 ml Apixaban (Apixaban 2.5 Mg Tablet) 7.5 mg PO BID [facility] Last Admin: 01/05/24 08:35 Dose: 7.5 mg Aripiprazole (Aripiprazole 20 Mg Tablet) 20 mg PO BEDTIME [facility] Last Admin: 01/04/24 20:31 Dose: 20 mg Atorvastatin Calcium (Atorvastatin Calcium 40 Mg Tablet) 40 mg PO BEDTIME [facility] Last Admin: 01/04/24 20:31 Dose: 40 mg Benztropine Mesylate (Benztropine Mesylate 0.5 Mg Tablet) 0.5 mg PO BID [facility] Last Admin: 01/05/24 08:37 Dose: 0.5 mg Carbamazepine (Carbamazepine Er 200 Mg Tab.Er.12h) 200 mg PO BID [facility] Last Admin: 01/05/24 08:36 Dose: 200 mg Furosemide (Furosemide 20 Mg Tablet) 20 mg PO DAILY [facility]; Protocol Last Admin: 01/05/24 08:35 Dose: 20 mg Insulin Human Lispro (Insulin Lispro 100 Unit/Ml 3 Ml Vial) 0 unit SUBCUT QIDACHS [facility]; Protocol Last Admin: 01/05/24 08:33 Dose: Not Given Magnesium Hydroxide (Milk Of Magnesia 30 Ml Oral.Susp) 30 ml PO DAILY PRN PRN Reason: Constipation Last Admin: 12/31/23 13:38 Dose: 30 ml [facility]esium Oxide ([facility] 400 Mg [facility]t) [facility] Last Admin: 01/05/24 08:36 Dose: 400 mg Melatonin (Melatonin 3 Mg Tablet) 9 mg PO BEDTIME PRN PRN Reason: Insomnia Last Admin: 01/01/24 20:56 Dose: 9 mg Metoprolol Succinate (Metoprolol Succinate Er 25 Mg Tab.Er.24h) 25 mg PO DAILY [facility]; Protocol Last Admin: 01/05/24 08:35 Dose: 25 mg Nicotine Polacrilex (Nicotine Polacrilex 2 Mg Gum) 2 mg BUCCAL Q2H PRN PRN Reason: Nicotine Cravings Non-Formulary Medication (Dulaglutide [Trulicity]) 3 mg SUBCUT Q7D [facility] Omeprazole (Omeprazole 20 Mg Capsule.Dr) 20 mg PO DAILY@0630 [facility] Last Admin: 01/05/24 06:38 Dose: 20 mg Ondansetron HCl (Ondansetron Odt 4 Mg Tab.Rapdis) 4 mg TRANSLINGU Q6H PRN PRN Reason: Nausea Last Admin: 01/04/24 08:29 Dose: 4 mg Polyethylene Glycol (Polyethylene Glycol 3350 17 Gm Powd.Pack) 17 gm PO DAILY PRN PRN Reason: Constipation Quetiapine Fumarate (Quetiapine Fumarate 25 Mg Tablet) 25 mg PO TID PRN PRN Reason: anxieety Last Admin: 01/04/24 20:31 Dose: 25 mg Thyroid (Thyroid,Pork 30 Mg Tablet) 120 mg PO DAILY@0630 [facility] Last Admin: 01/05/24 06:38 Dose: 120 mg Trazodone HCl (Trazodone Hcl 50 Mg Tablet) 50 mg PO BEDTIME MRX1 PRN PRN Reason: Insomnia Vitamin D (Cholecalciferol (Vitamin D3) 25 Mcg Tablet) 50 mcg PO DAILY [facility] Last Admin: 01/05/24 08:36 Dose: 50 mcg Zolpidem Tartrate (Zolpidem Tartrate 5 Mg Tablet) 5 mg PO BEDTIME PRN PRN Reason: Insomnia Last Admin: 01/04/24 20:31 Dose: 5 mg Allergies Allergies Allergy/AdvReac Type Severity Reaction Status Date / Time amoxicillin Allergy Unknown Unknown Uncoded 12/25/23 13:21 Pt states no food allergy Allergy Unknown Unknown Uncoded 12/25/23 13:21 Assessment & Plan Assessment & Plan (1) Bipolar affective disorder, manic, severe, with psychotic behavior: Status: Acute Code(s): F31.2 - Bipolar disorder, current episode manic severe with psychotic features Assessment and Plan: r/o schizoaffective bipolar type (2) PTSD (post-traumatic stress disorder): Status: Acute Code(s): F43.10 - Post-traumatic stress disorder, unspecified Plan 12/28: taper VPA and lamictal; start tegretol instead. do not restart caplyta; start abilify instead (had been on 20 mg in the past). ambien while hospitalized only for sleep. continue cogentin 0.5 BID and seroquel 25 TID PRN for now. continue porcine thyroid hormone. 12/29: DC lamictal entirely. increase abilify to 10 QHS. otherwise continue current mgmt. less verbose and voluble than yesterday. 12/30: increase tegretol to 200 BID, decrease VPA to 500 QHS. will discuss abilify versus vraylar with pt. grossly psychotic today. 12/31: DC VPA. declining vraylar, insisting on staying on abilify. becca slightly improved. 01/01: improved manic Sx. continue current mgmt. prefers to stay at abilify 10 for now. 01/02: remains mildly improved. increase abilify to 15 mg tonight. continue regimen otherwise. 01/03: increase abilify to 20 mg QHS. remains highly impaired, but mildly improved from earlier in stay. continue current mgmt otherwise. 01/04 continue tx. some paranoia present but accepting tx. Reason for continued inpatient stay Substantial Risk for: inability to function Time Spent With Patient Time: Total time managing care of this patient today ____ minutes.
[2024-01-05 11:57] LABS: Glucose, Whole Blood 93 mg/dL (60-115)
[2024-01-05] MEDS: polyethylene glycoL 3350 17 GM POWD.PACK PO (15:23)
[2024-01-05 16:55] LABS: Glucose, Whole Blood 139 mg/dL (60-115)
[2024-01-05] MEDS: ARIPiprazole 20 MG TABLET PO (19:51)
[2024-01-05] MEDS: Atorvastatin Calcium 40 MG TABLET PO (19:52)
[2024-01-05] MEDS: Zolpidem Tartrate 5 MG TABLET PO (19:52)
[2024-01-05 20:00] VITALS: BP 136/63; PULSE 92; RESP 16; TEMP 36.9; O2SAT 93
[2024-01-06] MEDS: Thyroid,Pork 30 MG TABLET 120 MG PO (06:40)
[2024-01-06] MEDS: Omeprazole 20 MG CAPSULE.DR PO (06:40)
[2024-01-06 07:52] LABS: Glucose, Whole Blood 124 mg/dL (60-115)
[2024-01-06 08:00] VITALS: BP 112/53; PULSE 87; RESP 16; TEMP 36.6; O2SAT 90
[2024-01-06 08:39] VITALS: BP 127/60; PULSE 97
[2024-01-06] MEDS: Apixaban 2.5 MG TABLET 7.5 MG PO ×2 (08:40→20:34)
[2024-01-06] MEDS: carBAMazepine ER 200 MG TAB.ER.12H PO ×2 (08:40→20:35)
[2024-01-06] MEDS: Magnesium Oxide 400 MG TABLET PO (08:41)
[2024-01-06] MEDS: Cholecalciferol (Vitamin D3) 25 MCG TABLET 50 MCG PO (08:41)
[2024-01-06] MEDS: Metoprolol Succinate ER 25 MG TAB.ER.24H PO (08:41)
[2024-01-06] MEDS: Benztropine Mesylate 0.5 MG TABLET PO ×2 (08:41→20:35)
[2024-01-06] MEDS: Furosemide 20 MG TABLET PO (08:42)
[2024-01-06] MEDS: QUEtiapine Fumarate 25 MG TABLET PO (08:59)
[2024-01-06] MEDS: Milk of Magnesia 30 ML ORAL.SUSP PO (09:01)
--- NOTE | 2024-01-06 09:28 | PC.NURSE ---
Daily reported difficulty breathing and requesting oxygen. Upon assessment, O2 SAT 95% and Daily continued to request oxygen. Casandra Carlos NP made aware
[2024-01-06 11:53] LABS: Glucose, Whole Blood 101 mg/dL (60-115)
--- NOTE | 2024-01-06 12:25 | P.PNPSI_ITS ---
Subjective Subjective Date of Service: 01/06/24 Reason For Visit: Mood Disorder Subjective Notes: Conditional Voluntary Interim History: Pt reports difficulty sleeping. She has one to one a night due to tubing of pace maker. She reports this keeps her up and she appears to be more suspicious of this person. She reported dyspnea this morning, subjective sensation of being SOB, o2sat on RA was 95% She has been visible on the unit, taking medications as prescribed. No SI/HI. She does report last sleep study over 2 years, used to have CPAP but not one one now. Diagnostics Vital Signs (24Hr): Vital Signs - 24 hr 01/05/24 20:00 01/06/24 08:00 01/06/24 08:39 Temperature 98.5 F 97.8 F Pulse Rate 92 87 97 Respiratory Rate 16 16 Blood Pressure 136/63 112/53 L 127/60 Pulse Oximetry 93 90 L Oxygen Delivery Method Room Air Room Air BMI result Body Mass Index 34.8 Labs 12/25/23 13:48 12/25/23 13:48 Labs: Laboratory Results - last 48 hr 01/04/24 01/04/24 01/05/24 12:31 16:40 07:50 POC Glucose 121 H 132 H 121 H 01/05/24 01/05/24 01/06/24 11:51 16:50 07:46 POC Glucose 93 139 H 124 H 01/06/24 11:49 POC Glucose 101 Medications Medications Current Medications Acetaminophen (Acetaminophen 325 Mg Tablet) 650 mg PO Q6H PRN PRN Reason: Headache/Pain Mild Scale (1-3) Al Hydroxide/Mg Hydroxide (Magnesium Hydrox/Alum Hydrox 30 Ml Oral.Susp) 30 ml PO Q6H PRN PRN Reason: Heartburn/Nausea Last Admin: 01/01/24 13:24 Dose: 30 ml Apixaban (Apixaban 2.5 Mg Tablet) 7.5 mg PO BID [facility] Last Admin: 01/06/24 08:40 Dose: 7.5 mg Aripiprazole (Aripiprazole 20 Mg Tablet) 20 mg PO BEDTIME [facility] Last Admin: 01/05/24 19:51 Dose: 20 mg Atorvastatin Calcium (Atorvastatin Calcium 40 Mg Tablet) 40 mg PO BEDTIME [facility] Last Admin: 01/05/24 19:52 Dose: 40 mg Benztropine Mesylate (Benztropine Mesylate 0.5 Mg Tablet) 0.5 mg PO BID [facility] Last Admin: 01/06/24 08:41 Dose: 0.5 mg Carbamazepine (Carbamazepine Er 200 Mg Tab.Er.12h) 200 mg PO BID [facility] Last Admin: 01/06/24 08:40 Dose: 200 mg Furosemide (Furosemide 20 Mg Tablet) 20 mg PO DAILY [facility]; Protocol Last Admin: 01/06/24 08:42 Dose: 20 mg Insulin Human Lispro (Insulin Lispro 100 Unit/Ml 3 Ml Vial) 0 unit SUBCUT QIDACHS [facility]; Protocol Last Admin: 01/06/24 12:02 Dose: Not Given Magnesium Hydroxide (Milk Of Magnesia 30 Ml Oral.Susp) 30 ml PO DAILY PRN PRN Reason: Constipation Last Admin: 01/06/24 09:01 Dose: 30 ml [facility]esium Oxide ([facility] 400 Mg [facility]t) [facility] Last Admin: 01/06/24 08:41 Dose: 400 mg Melatonin (Melatonin 3 Mg Tablet) 9 mg PO BEDTIME PRN PRN Reason: Insomnia Last Admin: 01/01/24 20:56 Dose: 9 mg Metoprolol Succinate (Metoprolol Succinate Er 25 Mg Tab.Er.24h) 25 mg PO DAILY [facility]; Protocol Last Admin: 01/06/24 08:41 Dose: 25 mg Nicotine Polacrilex (Nicotine Polacrilex 2 Mg Gum) 2 mg BUCCAL Q2H PRN PRN Reason: Nicotine Cravings Non-Formulary Medication (Dulaglutide [Trulicity]) 3 mg SUBCUT Q7D [facility] Omeprazole (Omeprazole 20 Mg Capsule.Dr) 20 mg PO DAILY@0630 [facility] Last Admin: 01/06/24 06:40 Dose: 20 mg Ondansetron HCl (Ondansetron Odt 4 Mg Tab.Rapdis) 4 mg TRANSLINGU Q6H PRN PRN Reason: Nausea Last Admin: 01/04/24 08:29 Dose: 4 mg Polyethylene Glycol (Polyethylene Glycol 3350 17 Gm Powd.Pack) 17 gm PO DAILY PRN PRN Reason: Constipation Last Admin: 01/05/24 15:23 Dose: 17 gm Quetiapine Fumarate (Quetiapine Fumarate 25 Mg Tablet) 25 mg PO TID PRN PRN Reason: anxieety Last Admin: 01/06/24 08:59 Dose: 25 mg Thyroid (Thyroid,Pork 30 Mg Tablet) 120 mg PO DAILY@0630 [facility] Last Admin: 01/06/24 06:40 Dose: 120 mg Trazodone HCl (Trazodone Hcl 50 Mg Tablet) 50 mg PO BEDTIME MRX1 PRN PRN Reason: Insomnia Vitamin D (Cholecalciferol (Vitamin D3) 25 Mcg Tablet) 50 mcg PO DAILY [facility] Last Admin: 01/06/24 08:41 Dose: 50 mcg Zolpidem Tartrate (Zolpidem Tartrate 5 Mg Tablet) 5 mg PO BEDTIME PRN PRN Reason: Insomnia Last Admin: 01/05/24 19:52 Dose: 5 mg Allergies Allergies Allergy/AdvReac Type Severity Reaction Status Date / Time amoxicillin Allergy Unknown Unknown Uncoded 12/25/23 13:21 Pt states no food allergy Allergy Unknown Unknown Uncoded 12/25/23 13:21 Assessment & Plan Assessment & Plan (1) Bipolar affective disorder, manic, severe, with psychotic behavior: Status: Acute Code(s): F31.2 - Bipolar disorder, current episode manic severe with psychotic features Assessment and Plan: r/o schizoaffective bipolar type (2) PTSD (post-traumatic stress disorder): Status: Acute Code(s): F43.10 - Post-traumatic stress disorder, unspecified Plan 12/28: taper VPA and lamictal; start tegretol instead. do not restart caplyta; start abilify instead (had been on 20 mg in the past). ambien while hospitalized only for sleep. continue cogentin 0.5 BID and seroquel 25 TID PRN for now. continue porcine thyroid hormone. 12/29: DC lamictal entirely. increase abilify to 10 QHS. otherwise continue current mgmt. less verbose and voluble than yesterday. 12/30: increase tegretol to 200 BID, decrease VPA to 500 QHS. will discuss abilify versus vraylar with pt. grossly psychotic today. 12/31: DC VPA. declining vraylar, insisting on staying on abilify. becca slightly improved. 01/01: improved manic Sx. continue current mgmt. prefers to stay at abilify 10 for now. 01/02: remains mildly improved. increase abilify to 15 mg tonight. continue regimen otherwise. 01/03: increase abilify to 20 mg QHS. remains highly impaired, but mildly improved from earlier in stay. continue current mgmt otherwise. 01/04 continue tx. some paranoia present but accepting tx. 01/05 continue tx. Reason for continued inpatient stay Substantial Risk for: inability to function Time Spent With Patient Time: Total time managing care of this patient today ____ minutes.
[2024-01-06 16:39] LABS: Glucose, Whole Blood 116 mg/dL (60-115)
[2024-01-06 20:00] VITALS: BP 135/60; PULSE 92; RESP 16; TEMP 36.4; O2SAT 94
[2024-01-06 20:28] LABS: Glucose, Whole Blood 135 mg/dL (60-115)
[2024-01-06] MEDS: Atorvastatin Calcium 40 MG TABLET PO (20:34)
[2024-01-06] MEDS: Zolpidem Tartrate 5 MG TABLET PO (20:35)
[2024-01-06] MEDS: ARIPiprazole 20 MG TABLET PO (20:35)
[2024-01-06] MEDS: Melatonin 3 MG TABLET 9 MG PO (20:43)
[2024-01-07 07:00] VITALS: BMI 34.9
[2024-01-07] MEDS: Omeprazole 20 MG CAPSULE.DR PO (07:21)
[2024-01-07] MEDS: Thyroid,Pork 30 MG TABLET 120 MG PO (07:21)
[2024-01-07 07:44] VITALS: BP 135/68; PULSE 91; RESP 14; TEMP 37; O2SAT 94
[2024-01-07 07:58] LABS: Glucose, Whole Blood 129 mg/dL (60-115)
--- NOTE | 2024-01-07 08:04 | P.PNPSI_ITS ---
Subjective Subjective Date of Service: 01/07/24 Reason For Visit: Mood Disorder Subjective Notes: Conditional Voluntary Interim History: Active on unit, attending groups. medication compliant. rapid and pressured speech during assessment. paranoid. pt stated, I can't return home because I'm not safe. They will try to kill me. I'm going to tell Dr. Caldwell about it tomorrow . per nursing, slept 7 hours last night. Medication Compliance: Yes Side effects from medications: No Attending Groups: Yes Review of Systems Constitutional: Reports as per HPI Eyes: Reports as per HPI Reports as per HPI Cardiovascular: Reports as per HPI Respiratory: Reports as per HPI Gastrointestinal: Reports as per HPI Genitourinary: Reports as per HPI Musculoskeletal: Reports as per HPI Skin/Breast: Reports as per HPI Reports as per HPI Psychiatric: Reports as per HPI Endocrine: Reports as per HPI Hematologic/Lymphatic: Reports as per HPI Allergic/Immunologic: Reports as per HPI Mental Status Exam Mental Status Exam Narrative: Pt is alert and oriented; behavior is guarded; dressed in casual attire; eye contact appropriate; Speech is rapid rate, low volume and pressured; paranoid, worried someone will kill her if she goes home. Diagnostics Vital Signs (24Hr): Vital Signs - 24 hr 01/06/24 08:39 01/06/24 20:00 01/07/24 07:44 Temperature 97.6 F 98.6 F Pulse Rate 97 92 91 Respiratory Rate 16 14 Blood Pressure 127/60 135/60 135/68 Pulse Oximetry 94 94 Oxygen Delivery Method Room Air Room Air BMI result Body Mass Index 34.8 Labs 12/25/23 13:48 12/25/23 13:48 Labs: Laboratory Results - last 48 hr 01/05/24 01/05/24 01/06/24 11:51 16:50 07:46 POC Glucose 93 139 H 124 H 01/06/24 01/06/24 01/06/24 11:49 16:34 20:23 POC Glucose 101 116 H 135 H 01/07/24 07:54 POC Glucose 129 H Medications Medications Current Medications Acetaminophen (Acetaminophen 325 Mg Tablet) 650 mg PO Q6H PRN PRN Reason: Headache/Pain Mild Scale (1-3) Al Hydroxide/Mg Hydroxide (Magnesium Hydrox/Alum Hydrox 30 Ml Oral.Susp) 30 ml PO Q6H PRN PRN Reason: Heartburn/Nausea Last Admin: 01/01/24 13:24 Dose: 30 ml Apixaban (Apixaban 2.5 Mg Tablet) 7.5 mg PO BID [facility] Last Admin: 01/06/24 20:34 Dose: 7.5 mg Aripiprazole (Aripiprazole 20 Mg Tablet) 20 mg PO BEDTIME [facility] Last Admin: 01/06/24 20:35 Dose: 20 mg Atorvastatin Calcium (Atorvastatin Calcium 40 Mg Tablet) 40 mg PO BEDTIME [facility] Last Admin: 01/06/24 20:34 Dose: 40 mg Benztropine Mesylate (Benztropine Mesylate 0.5 Mg Tablet) 0.5 mg PO BID [facility] Last Admin: 01/06/24 20:35 Dose: 0.5 mg Carbamazepine (Carbamazepine Er 200 Mg Tab.Er.12h) 200 mg PO BID [facility] Last Admin: 01/06/24 20:35 Dose: 200 mg Furosemide (Furosemide 20 Mg Tablet) 20 mg PO DAILY [facility]; Protocol Last Admin: 01/06/24 08:42 Dose: 20 mg Insulin Human Lispro (Insulin Lispro 100 Unit/Ml 3 Ml Vial) 0 unit SUBCUT QIDACHS [facility]; Protocol Last Admin: 01/07/24 07:58 Dose: Not Given Magnesium Hydroxide (Milk Of Magnesia 30 Ml Oral.Susp) 30 ml PO DAILY PRN PRN Reason: Constipation Last Admin: 01/06/24 09:01 Dose: 30 ml Magnesium Oxide (Magnesium Oxide 400 Mg Tablet) 400 mg PO BIDPC [facility] Last Admin: 01/06/24 17:55 Dose: Not Given Melatonin (Melatonin 3 Mg Tablet) 9 mg PO BEDTIME PRN PRN Reason: Insomnia Last Admin: 01/06/24 20:43 Dose: 9 mg Metoprolol Succinate (Metoprolol Succinate Er 25 Mg Tab.Er.24h) 25 mg PO DAILY [facility]; Protocol Last Admin: 01/06/24 08:41 Dose: 25 mg Nicotine Polacrilex (Nicotine Polacrilex 2 Mg Gum) 2 mg BUCCAL Q2H PRN PRN Reason: Nicotine Cravings Non-Formulary Medication (Dulaglutide [Trulicity]) 3 mg SUBCUT Q7D [facility] Omeprazole (Omeprazole 20 Mg Capsule.Dr) 20 mg PO DAILY@0630 [facility] Last Admin: 01/07/24 07:21 Dose: 20 mg Ondansetron HCl (Ondansetron Odt 4 Mg Tab.Rapdis) 4 mg TRANSLINGU Q6H PRN PRN Reason: Nausea Last Admin: 01/04/24 08:29 Dose: 4 mg Polyethylene Glycol (Polyethylene Glycol 3350 17 Gm Powd.Pack) 17 gm PO DAILY PRN PRN Reason: Constipation Last Admin: 01/05/24 15:23 Dose: 17 gm Quetiapine Fumarate (Quetiapine Fumarate 25 Mg Tablet) 25 mg PO TID PRN PRN Reason: anxieety Last Admin: 01/06/24 08:59 Dose: 25 mg Thyroid (Thyroid,Pork 30 Mg Tablet) 120 mg PO DAILY@0630 [facility] Last Admin: 01/07/24 07:21 Dose: 120 mg Trazodone HCl (Trazodone Hcl 50 Mg Tablet) 50 mg PO BEDTIME MRX1 PRN PRN Reason: Insomnia Vitamin D (Cholecalciferol (Vitamin D3) 25 Mcg Tablet) 50 mcg PO DAILY [facility] Last Admin: 01/06/24 08:41 Dose: 50 mcg Zolpidem Tartrate (Zolpidem Tartrate 5 Mg Tablet) 5 mg PO BEDTIME PRN PRN Reason: Insomnia Last Admin: 01/06/24 20:35 Dose: 5 mg Allergies Allergies Allergy/AdvReac Type Severity Reaction Status Date / Time amoxicillin Allergy Unknown Unknown Uncoded 12/25/23 13:21 Pt states no food allergy Allergy Unknown Unknown Uncoded 12/25/23 13:21 Assessment & Plan Assessment & Plan (1) Bipolar affective disorder, manic, severe, with psychotic behavior: Status: Acute Code(s): F31.2 - Bipolar disorder, current episode manic severe with psychotic features Assessment and Plan: r/o schizoaffective bipolar type (2) PTSD (post-traumatic stress disorder): Status: Acute Code(s): F43.10 - Post-traumatic stress disorder, unspecified Plan 12/28: taper VPA and lamictal; start tegretol instead. do not restart caplyta; start abilify instead (had been on 20 mg in the past). ambien while hospitalized only for sleep. continue cogentin 0.5 BID and seroquel 25 TID PRN for now. continue porcine thyroid hormone. 12/29: DC lamictal entirely. increase abilify to 10 QHS. otherwise continue current mgmt. less verbose and voluble than yesterday. 12/30: increase tegretol to 200 BID, decrease VPA to 500 QHS. will discuss abilify versus vraylar with pt. grossly psychotic today. 12/31: DC VPA. declining vraylar, insisting on staying on abilify. becca slightly improved. 01/01: improved manic Sx. continue current mgmt. prefers to stay at abilify 10 for now. 01/02: remains mildly improved. increase abilify to 15 mg tonight. continue regimen otherwise. 01/03: increase abilify to 20 mg QHS. remains highly impaired, but mildly improved from earlier in stay. continue current mgmt otherwise. 01/04 continue tx. some paranoia present but accepting tx. 01/06: continue current tx plan. Patient educated on: medication risk/benefits Reason for continued inpatient stay Substantial Risk for: med/psych decompensation Time Spent With Patient Time: Total time managing care of this patient today _20___ minutes.
[2024-01-07] MEDS: Magnesium Oxide 400 MG TABLET PO (08:23)
[2024-01-07] MEDS: carBAMazepine ER 200 MG TAB.ER.12H PO ×2 (08:23→20:41)
[2024-01-07] MEDS: Cholecalciferol (Vitamin D3) 25 MCG TABLET 50 MCG PO (08:23)
[2024-01-07] MEDS: Benztropine Mesylate 0.5 MG TABLET PO ×2 (08:23→20:41)
[2024-01-07] MEDS: Apixaban 2.5 MG TABLET 7.5 MG PO ×2 (08:23→20:41)
[2024-01-07] MEDS: Furosemide 20 MG TABLET PO (08:23)
[2024-01-07] MEDS: Metoprolol Succinate ER 25 MG TAB.ER.24H PO (08:24)
[2024-01-07] MEDS: polyethylene glycoL 3350 17 GM POWD.PACK PO (09:35)
[2024-01-07 12:14] LABS: Glucose, Whole Blood 106 mg/dL (60-115)
[2024-01-07] MEDS: Milk of Magnesia 30 ML ORAL.SUSP PO (13:57)
[2024-01-07 16:56] LABS: Glucose, Whole Blood 101 mg/dL (60-115)
[2024-01-07 20:00] VITALS: BP 127/69; PULSE 90; RESP 16; TEMP 36.9; O2SAT 96
[2024-01-07] MEDS: Atorvastatin Calcium 40 MG TABLET PO (20:41)
[2024-01-07] MEDS: ARIPiprazole 20 MG TABLET PO (20:41)
[2024-01-07] MEDS: Zolpidem Tartrate 5 MG TABLET PO (20:41)
[2024-01-08] MEDS: Omeprazole 20 MG CAPSULE.DR PO (06:37)
[2024-01-08] MEDS: Thyroid,Pork 30 MG TABLET 120 MG PO (06:37)
[2024-01-08 07:20] VITALS: BP 139/68; PULSE 89; RESP 14; TEMP 36.5; O2SAT 95
[2024-01-08 07:36] LABS: Glucose, Whole Blood 115 mg/dL (60-115)
[2024-01-08 09:09] VITALS: BP 165/70
[2024-01-08] MEDS: Cholecalciferol (Vitamin D3) 25 MCG TABLET 50 MCG PO (09:09)
[2024-01-08] MEDS: Furosemide 20 MG TABLET PO (09:09)
[2024-01-08] MEDS: Apixaban 2.5 MG TABLET 7.5 MG PO ×2 (09:09→20:40)
[2024-01-08] MEDS: Benztropine Mesylate 0.5 MG TABLET PO ×2 (09:09→20:40)
[2024-01-08] MEDS: Metoprolol Succinate ER 25 MG TAB.ER.24H PO (09:09)
[2024-01-08] MEDS: carBAMazepine ER 200 MG TAB.ER.12H PO ×2 (09:10→20:39)
[2024-01-08] MEDS: Magnesium Oxide 400 MG TABLET PO (09:10)
[2024-01-08 11:53] LABS: Glucose, Whole Blood 116 mg/dL (60-115)
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
[2024-01-08 20:34] VITALS: BP 138/81; PULSE 100; RESP 16; TEMP 37.1; O2SAT 95
[2024-01-08] MEDS: ARIPiprazole 20 MG TABLET PO (20:39)
[2024-01-08] MEDS: Atorvastatin Calcium 40 MG TABLET PO (20:39)
[2024-01-08] MEDS: traZODone HCL 50 MG TABLET PO (20:40)
[2024-01-08 22:03] LABS: Glucose, Whole Blood 185 mg/dL (60-115)
[2024-01-09] MEDS: traZODone HCL 50 MG TABLET PO ×2 (03:17→21:22)
--- NOTE | 2024-01-09 03:19 | PC.NURSE ---
trazodone-requesting 2nd dose PRN trazodone. educated to effects/concerns of taking at this time but continues to request. given.
[2024-01-09] MEDS: Thyroid,Pork 30 MG TABLET 120 MG PO (05:13)
[2024-01-09] MEDS: Omeprazole 20 MG CAPSULE.DR PO (05:36)
[2024-01-09] MEDS: QUEtiapine Fumarate 25 MG TABLET PO (05:36)
[2024-01-09 07:40] VITALS: BP 149/65; PULSE 95; RESP 14; TEMP 36.7; O2SAT 95
[2024-01-09 07:45] LABS: Glucose, Whole Blood 112 mg/dL (60-115)
[2024-01-09] MEDS: Magnesium Oxide 400 MG TABLET PO (08:23)
[2024-01-09] MEDS: Apixaban 2.5 MG TABLET 7.5 MG PO ×2 (08:23→21:22)
[2024-01-09] MEDS: Furosemide 20 MG TABLET PO (08:24)
[2024-01-09] MEDS: Cholecalciferol (Vitamin D3) 25 MCG TABLET 50 MCG PO (08:24)
[2024-01-09] MEDS: carBAMazepine ER 200 MG TAB.ER.12H PO ×2 (08:24→21:23)
[2024-01-09] MEDS: Benztropine Mesylate 0.5 MG TABLET PO ×2 (08:24→21:22)
[2024-01-09] MEDS: Metoprolol Succinate ER 25 MG TAB.ER.24H PO (08:24)
[2024-01-09] MEDS: Ondansetron ODT 4 MG TAB.RAPDIS TRANSLINGU (08:47)
--- NOTE | 2024-01-09 09:01 | HO.PSYCHPN ---
Subjective Subjective Date of Service: 01/09/24 Reason For Visit: Mood Disorder Subjective Notes: Conditional Voluntary Interim History: Active on unit, attending groups. medication compliant. paranoid. Patient reports feeling good today; reports improved sleep with taking trazodone last evening. however refused ambien despite asking for increase. Pt requesting to have magnesium changed to daily. Continues focused on people trying to harm her. Medication Compliance: Yes Side effects from medications: No Attending Groups: Yes Review of Systems Constitutional: Reports as per HPI Eyes: Reports as per HPI Reports as per HPI Cardiovascular: Reports as per HPI Respiratory: Reports as per HPI Gastrointestinal: Reports as per HPI Musculoskeletal: Reports as per HPI Skin/Breast: Reports as per HPI Reports as per HPI Psychiatric: Reports as per HPI Endocrine: Reports as per HPI Hematologic/Lymphatic: Reports as per HPI Allergic/Immunologic: Reports as per HPI Mental Status Exam Mental Status Exam Narrative: Pt is alert and oriented; behavior is calm,cooperative guarded; dressed in casual attire; eye contact appropriate; Speech is normal rate, volume and not pressured; paranoid, worried someone will kill her if she goes home. Diagnostics Vital Signs (24Hr): Vital Signs - 24 hr 01/08/24 09:09 01/08/24 09:09 01/08/24 20:34 Temperature 98.8 F Pulse Rate 100 Respiratory Rate 16 Blood Pressure 165/70 H 165/70 H 138/81 Pulse Oximetry 95 Oxygen Delivery Method Room Air 01/09/24 07:40 Temperature 98.0 F Pulse Rate 95 Respiratory Rate 14 Blood Pressure 149/65 H Pulse Oximetry 95 Oxygen Delivery Method Room Air BMI result Body Mass Index 34.9 Labs 12/25/23 13:48 12/25/23 13:48 Labs: Laboratory Results - last 48 hr 01/07/24 01/07/24 01/08/24 12:11 16:53 07:32 POC Glucose 106 101 115 01/08/24 01/08/24 01/09/24 11:50 20:20 07:40 POC Glucose 116 H 185 H 112 Medications Medications Current Medications Acetaminophen (Acetaminophen 325 Mg Tablet) 650 mg PO Q6H PRN PRN Reason: Headache/Pain Mild Scale (1-3) Al Hydroxide/Mg Hydroxide (Magnesium Hydrox/Alum Hydrox 30 Ml Oral.Susp) 30 ml PO Q6H PRN PRN Reason: Heartburn/Nausea Last Admin: 01/01/24 13:24 Dose: 30 ml Apixaban (Apixaban 2.5 Mg Tablet) 7.5 mg PO BID [facility] Last Admin: 01/09/24 08:23 Dose: 7.5 mg Aripiprazole (Aripiprazole 20 Mg Tablet) 20 mg PO BEDTIME [facility] Last Admin: 01/08/24 20:39 Dose: 20 mg Atorvastatin Calcium (Atorvastatin Calcium 40 Mg Tablet) 40 mg PO BEDTIME [facility] Last Admin: 01/08/24 20:39 Dose: 40 mg Benztropine Mesylate (Benztropine Mesylate 0.5 Mg Tablet) 0.5 mg PO BID [facility] Last Admin: 01/09/24 08:24 Dose: 0.5 mg Carbamazepine (Carbamazepine Er 200 Mg Tab.Er.12h) 200 mg PO BID [facility] Last Admin: 01/09/24 08:24 Dose: 200 mg Furosemide (Furosemide 20 Mg Tablet) 20 mg PO DAILY [facility]; Protocol Last Admin: 01/09/24 08:24 Dose: 20 mg Insulin Human Lispro (Insulin Lispro 100 Unit/Ml 3 Ml Vial) 0 unit SUBCUT QIDACHS [facility]; Protocol Last Admin: 01/09/24 07:50 Dose: Not Given Magnesium Hydroxide (Milk Of Magnesia 30 Ml Oral.Susp) 30 ml PO DAILY PRN PRN Reason: Constipation Last Admin: 01/07/24 13:57 Dose: 30 ml Magnesium Oxide ([facility]ide 400 Mg Tablet) [facility] Last Admin: 01/09/24 08:23 Dose: 400 mg Melatonin (Melatonin 3 Mg Tablet) 9 mg PO BEDTIME PRN PRN Reason: Insomnia Last Admin: 01/06/24 20:43 Dose: 9 mg Metoprolol Succinate (Metoprolol Succinate Er 25 Mg Tab.Er.24h) 25 mg PO DAILY [facility]; Protocol Last Admin: 01/09/24 08:24 Dose: 25 mg Nicotine Polacrilex (Nicotine Polacrilex 2 Mg Gum) 2 mg BUCCAL Q2H PRN PRN Reason: Nicotine Cravings Omeprazole (Omeprazole 20 Mg Capsule.Dr) 20 mg PO DAILY@0630 [facility] Last Admin: 01/09/24 05:36 Dose: 20 mg Ondansetron HCl (Ondansetron Odt 4 Mg Tab.Rapdis) 4 mg TRANSLINGU Q6H PRN PRN Reason: Nausea Last Admin: 01/09/24 08:47 Dose: 4 mg Polyethylene Glycol (Polyethylene Glycol 3350 17 Gm Powd.Pack) 17 gm PO DAILY PRN PRN Reason: Constipation Last Admin: 01/07/24 09:35 Dose: 17 gm Quetiapine Fumarate (Quetiapine Fumarate 25 Mg Tablet) 25 mg PO TID PRN PRN Reason: anxieety Last Admin: 01/09/24 05:36 Dose: 25 mg Thyroid (Thyroid,Pork 30 Mg Tablet) 120 mg PO DAILY@0630 [facility] Last Admin: 01/09/24 05:13 Dose: 120 mg Trazodone HCl (Trazodone Hcl 50 Mg Tablet) 50 mg PO BEDTIME MRX1 PRN PRN Reason: Insomnia Last Admin: 01/09/24 03:17 Dose: 50 mg Vitamin D (Cholecalciferol (Vitamin D3) 25 Mcg Tablet) 50 mcg PO DAILY [facility] Last Admin: 01/09/24 08:24 Dose: 50 mcg Zolpidem Tartrate (Zolpidem Tartrate 5 Mg Tablet) 10 mg PO BEDTIME [facility] Last Admin: 01/08/24 22:22 Dose: Not Given Allergies Allergies Allergy/AdvReac Type Severity Reaction Status Date / Time amoxicillin Allergy Unknown Unknown Uncoded 12/25/23 13:21 Pt states no food allergy Allergy Unknown Unknown Uncoded 12/25/23 13:21 Assessment & Plan Assessment & Plan (1) Bipolar affective disorder, manic, severe, with psychotic behavior: Status: Acute Code(s): F31.2 - Bipolar disorder, current episode manic severe with psychotic features Assessment and Plan: r/o schizoaffective bipolar type (2) PTSD (post-traumatic stress disorder): Status: Acute Code(s): F43.10 - Post-traumatic stress disorder, unspecified Plan 12/28: taper VPA and lamictal; start tegretol instead. do not restart caplyta; start abilify instead (had been on 20 mg in the past). ambien while hospitalized only for sleep. continue cogentin 0.5 BID and seroquel 25 TID PRN for now. continue porcine thyroid hormone. 12/29: DC lamictal entirely. increase abilify to 10 QHS. otherwise continue current mgmt. less verbose and voluble than yesterday. 12/30: increase tegretol to 200 BID, decrease VPA to 500 QHS. will discuss abilify versus vraylar with pt. grossly psychotic today. 12/31: DC VPA. declining vraylar, insisting on staying on abilify. becca slightly improved. 01/01: improved manic Sx. continue current mgmt. prefers to stay at abilify 10 for now. 01/02: remains mildly improved. increase abilify to 15 mg tonight. continue regimen otherwise. 01/03: increase abilify to 20 mg QHS. remains highly impaired, but mildly improved from earlier in stay. continue current mgmt otherwise. 01/04 continue tx. some paranoia present but accepting tx. 01/06: continue current tx plan. 01/07: continues paranoid about going home. Requesting increase in ambien. Ambien increased to 10mg PO bedtime. 01/08: Patient reports feeling good today; reports improved sleep with taking trazodone last evening. however refused ambien despite asking for increase. Pt requesting to have magnesium changed to daily. Continues focused on people trying to harm her. Patient educated on: diagnosis and medication risk/benefits Reason for continued inpatient stay Substantial Risk for: med/psych decompensation Time Spent With Patient Time: Total time managing care of this patient today _20___ minutes.
[2024-01-09] MEDS: polyethylene glycoL 3350 17 GM POWD.PACK PO (12:21)
[2024-01-09] MEDS: Acetaminophen 325 MG TABLET 650 MG PO (16:29)
[2024-01-09 19:48] LABS: Glucose, Whole Blood 137 mg/dL (60-115)
[2024-01-09 20:00] VITALS: BP 101/64; PULSE 89; RESP 16; TEMP 36.5; O2SAT 95
[2024-01-09] MEDS: ARIPiprazole 20 MG TABLET PO (21:22)
[2024-01-09] MEDS: Atorvastatin Calcium 40 MG TABLET PO (21:23)
[2024-01-10] MEDS: traZODone HCL 50 MG TABLET PO ×3 (00:32→22:28)
[2024-01-10] MEDS: QUEtiapine Fumarate 25 MG TABLET PO (00:52)
[2024-01-10] MEDS: Thyroid,Pork 30 MG TABLET 120 MG PO (05:31)
[2024-01-10] MEDS: Omeprazole 20 MG CAPSULE.DR PO (06:29)
[2024-01-10 07:45] LABS: Glucose, Whole Blood 110 mg/dL (60-115)
[2024-01-10 08:00] VITALS: BP 122/65; PULSE 88; RESP 14; TEMP 36.8; O2SAT 94
[2024-01-10] MEDS: Cholecalciferol (Vitamin D3) 25 MCG TABLET 50 MCG PO (08:18)
[2024-01-10] MEDS: Apixaban 2.5 MG TABLET 7.5 MG PO ×2 (08:19→21:09)
[2024-01-10] MEDS: Furosemide 20 MG TABLET PO (08:19)
[2024-01-10] MEDS: Benztropine Mesylate 0.5 MG TABLET PO ×2 (08:20→21:09)
[2024-01-10] MEDS: Magnesium Oxide 400 MG TABLET PO (08:20)
[2024-01-10] MEDS: carBAMazepine ER 200 MG TAB.ER.12H PO ×2 (08:20→21:09)
[2024-01-10] MEDS: Metoprolol Succinate ER 25 MG TAB.ER.24H PO (08:20)
--- NOTE | 2024-01-10 09:17 | HO.PSYCHPN ---
Subjective Subjective Date of Service: 01/10/24 Reason For Visit: Mood Disorder Subjective Notes: Conditional Voluntary Interim History: Active on unit, attending groups. medication compliant. paranoid. Patient reports feeling good today; pt stated, I'm going to stay here for 3 more weeks until I'm safe to return home. I have everything written down in my journal and plan to give it to Dr. Caldwell so he is aware . Pt reports she is worried if she returns home she will be killed. Medication Compliance: Yes Side effects from medications: No Attending Groups: Yes Review of Systems Constitutional: Reports as per HPI Eyes: Reports as per HPI Reports as per HPI Cardiovascular: Reports as per HPI Respiratory: Reports as per HPI Gastrointestinal: Reports as per HPI Musculoskeletal: Reports as per HPI Skin/Breast: Reports as per HPI Reports as per HPI Psychiatric: Reports as per HPI Endocrine: Reports as per HPI Hematologic/Lymphatic: Reports as per HPI Allergic/Immunologic: Reports as per HPI Mental Status Exam Mental Status Exam Narrative: Pt is alert and oriented; behavior is calm,cooperative guarded; dressed in casual attire; eye contact appropriate; Speech is normal rate, volume and not pressured; paranoid, worried someone will kill her if she goes home. Diagnostics Vital Signs (24Hr): Vital Signs - 24 hr 01/09/24 20:00 01/10/24 08:00 Temperature 97.7 F 98.2 F Pulse Rate 89 88 Respiratory Rate 16 14 Blood Pressure 101/64 122/65 Pulse Oximetry 95 94 Oxygen Delivery Method Room Air Room Air BMI result Body Mass Index 34.9 Labs 12/25/23 13:48 12/25/23 13:48 Labs: Laboratory Results - last 48 hr 01/08/24 01/08/24 01/09/24 11:50 20:20 07:40 POC Glucose 116 H 185 H 112 01/09/24 01/10/24 19:43 07:37 POC Glucose 137 H 110 Medications Medications Current Medications Acetaminophen (Acetaminophen 325 Mg Tablet) 650 mg PO Q6H PRN PRN Reason: Headache/Pain Mild Scale (1-3) Last Admin: 01/09/24 16:29 Dose: 650 mg Al Hydroxide/Mg Hydroxide (Magnesium Hydrox/Alum Hydrox 30 Ml Oral.Susp) 30 ml PO Q6H PRN PRN Reason: Heartburn/Nausea Last Admin: 01/01/24 13:24 Dose: 30 ml Apixaban (Apixaban 2.5 Mg Tablet) 7.5 mg PO BID [facility] Last Admin: 01/10/24 08:19 Dose: 7.5 mg Aripiprazole (Aripiprazole 20 Mg Tablet) 20 mg PO BEDTIME [facility] Last Admin: 01/09/24 21:22 Dose: 20 mg Atorvastatin Calcium (Atorvastatin Calcium 40 Mg Tablet) 40 mg PO BEDTIME [facility] Last Admin: 01/09/24 21:23 Dose: 40 mg Benztropine Mesylate (Benztropine Mesylate 0.5 Mg Tablet) 0.5 mg PO BID [facility] Last Admin: 01/10/24 08:20 Dose: 0.5 mg Carbamazepine (Carbamazepine Er 200 Mg Tab.Er.12h) 200 mg PO BID [facility] Last Admin: 01/10/24 08:20 Dose: 200 mg Furosemide (Furosemide 20 Mg Tablet) 20 mg PO DAILY [facility]; Protocol Last Admin: 01/10/24 08:19 Dose: 20 mg Insulin Human Lispro (Insulin Lispro 100 Unit/Ml 3 Ml Vial) 0 unit SUBCUT QIDACHS [facility]; Protocol Last Admin: 01/10/24 07:49 Dose: Not Given Magnesium Hydroxide (Milk Of Magnesia 30 Ml Oral.Susp) 30 ml PO DAILY PRN PRN Reason: Constipation Last Admin: 01/07/24 13:57 Dose: 30 ml Magnesium Oxide (Magnesium Oxide 400 Mg Tablet) 400 mg PO DAILY [facility] Last Admin: 01/10/24 08:20 Dose: 400 mg Melatonin (Melatonin 3 Mg Tablet) 9 mg PO BEDTIME PRN PRN Reason: Insomnia Last Admin: 01/06/24 20:43 Dose: 9 mg Metoprolol Succinate (Metoprolol Succinate Er 25 Mg Tab.Er.24h) 25 mg PO DAILY [facility]; Protocol Last Admin: 01/10/24 08:20 Dose: 25 mg Nicotine Polacrilex (Nicotine Polacrilex 2 Mg Gum) 2 mg BUCCAL Q2H PRN PRN Reason: Nicotine Cravings Omeprazole (Omeprazole 20 Mg Capsule.Dr) 20 mg PO DAILY@0630 [facility] Last Admin: 01/10/24 06:29 Dose: 20 mg Ondansetron HCl (Ondansetron Odt 4 Mg Tab.Rapdis) 4 mg TRANSLINGU Q6H PRN PRN Reason: Nausea Last Admin: 01/09/24 08:47 Dose: 4 mg Polyethylene Glycol (Polyethylene Glycol 3350 17 Gm Powd.Pack) 17 gm PO DAILY PRN PRN Reason: Constipation Last Admin: 01/09/24 12:21 Dose: 17 gm Quetiapine Fumarate (Quetiapine Fumarate 25 Mg Tablet) 25 mg PO TID PRN PRN Reason: anxieety Last Admin: 01/10/24 00:52 Dose: 25 mg Thyroid (Thyroid,Pork 30 Mg Tablet) 120 mg PO DAILY@0630 [facility] Last Admin: 01/10/24 05:31 Dose: 120 mg Trazodone HCl (Trazodone Hcl 50 Mg Tablet) 50 mg PO BEDTIME MRX1 PRN PRN Reason: Insomnia Last Admin: 01/10/24 00:32 Dose: 50 mg Vitamin D (Cholecalciferol (Vitamin D3) 25 Mcg Tablet) 50 mcg PO DAILY [facility] Last Admin: 01/10/24 08:18 Dose: 50 mcg Zolpidem Tartrate (Zolpidem Tartrate 5 Mg Tablet) 10 mg PO BEDTIME [facility] Last Admin: 01/09/24 22:24 Dose: Not Given Allergies Allergies Allergy/AdvReac Type Severity Reaction Status Date / Time amoxicillin Allergy Unknown Unknown Uncoded 12/25/23 13:21 Pt states no food allergy Allergy Unknown Unknown Uncoded 12/25/23 13:21 Assessment & Plan Assessment & Plan (1) Bipolar affective disorder, manic, severe, with psychotic behavior: Status: Acute Code(s): F31.2 - Bipolar disorder, current episode manic severe with psychotic features Assessment and Plan: r/o schizoaffective bipolar type (2) PTSD (post-traumatic stress disorder): Status: Acute Code(s): F43.10 - Post-traumatic stress disorder, unspecified Plan 12/28: taper VPA and lamictal; start tegretol instead. do not restart caplyta; start abilify instead (had been on 20 mg in the past). ambien while hospitalized only for sleep. continue cogentin 0.5 BID and seroquel 25 TID PRN for now. continue porcine thyroid hormone. 12/29: DC lamictal entirely. increase abilify to 10 QHS. otherwise continue current mgmt. less verbose and voluble than yesterday. 12/30: increase tegretol to 200 BID, decrease VPA to 500 QHS. will discuss abilify versus vraylar with pt. grossly psychotic today. 12/31: DC VPA. declining vraylar, insisting on staying on abilify. becca slightly improved. 01/01: improved manic Sx. continue current mgmt. prefers to stay at abilify 10 for now. 01/02: remains mildly improved. increase abilify to 15 mg tonight. continue regimen otherwise. 01/03: increase abilify to 20 mg QHS. remains highly impaired, but mildly improved from earlier in stay. continue current mgmt otherwise. 01/04 continue tx. some paranoia present but accepting tx. 01/06: continue current tx plan. 01/07: continues paranoid about going home. Requesting increase in ambien. Ambien increased to 10mg PO bedtime. 01/08: Patient reports feeling good today; reports improved sleep with taking trazodone last evening. however refused ambien despite asking for increase. Pt requesting to have magnesium changed to daily. Continues focused on people trying to harm her. 01/09: continue current tx plan. Patient educated on: diagnosis and medication risk/benefits Reason for continued inpatient stay Substantial Risk for: med/psych decompensation Time Spent With Patient Time: Total time managing care of this patient today _20___ minutes.
[2024-01-10 19:35] VITALS: BP 158/84; PULSE 99; RESP 18; TEMP 36.9; O2SAT 95
[2024-01-10] MEDS: Atorvastatin Calcium 40 MG TABLET PO (21:09)
[2024-01-10] MEDS: ARIPiprazole 20 MG TABLET PO (21:09)
[2024-01-10 21:24] LABS: Glucose, Whole Blood 172 mg/dL (60-115)
[2024-01-11] MEDS: Acetaminophen 325 MG TABLET 650 MG PO (03:28)
[2024-01-11] MEDS: QUEtiapine Fumarate 25 MG TABLET PO ×2 (03:29→21:56)
[2024-01-11] MEDS: Thyroid,Pork 30 MG TABLET 120 MG PO (06:41)
[2024-01-11] MEDS: Omeprazole 20 MG CAPSULE.DR PO (06:41)
[2024-01-11 08:07] LABS: Glucose, Whole Blood 102 mg/dL (60-115)
[2024-01-11 09:51] VITALS: BP 144/65; PULSE 103; RESP 16; TEMP 36.2; O2SAT 96
[2024-01-11] MEDS: Apixaban 2.5 MG TABLET 7.5 MG PO ×2 (09:54→21:56)
[2024-01-11] MEDS: Metoprolol Succinate ER 25 MG TAB.ER.24H PO (09:54)
[2024-01-11] MEDS: Cholecalciferol (Vitamin D3) 25 MCG TABLET 50 MCG PO (09:54)
[2024-01-11] MEDS: Benztropine Mesylate 0.5 MG TABLET PO ×2 (09:54→21:56)
[2024-01-11] MEDS: Furosemide 20 MG TABLET PO (09:54)
[2024-01-11] MEDS: Magnesium Oxide 400 MG TABLET PO (09:54)
[2024-01-11] MEDS: carBAMazepine ER 200 MG TAB.ER.12H PO ×2 (09:55→21:56)
[2024-01-11] MEDS: Ondansetron ODT 4 MG TAB.RAPDIS TRANSLINGU (10:00)
--- NOTE | 2024-01-11 10:28 | PC.NURSE ---
Pt reports being on [employer]piat[employer] weekly. She states that her pharmacy is [facility], [facility] [place]. This [facility] under[facility] called and was unable to speak to staff. This va underwriter texted Dr Caldwell via [employer] and he stated understanding about this concern.
[2024-01-11] MEDS: polyethylene glycoL 3350 17 GM POWD.PACK PO (12:42)
[2024-01-11] MEDS: Milk of Magnesia 30 ML ORAL.SUSP PO (12:42)
[2024-01-11 19:50] VITALS: BP 158/80; PULSE 95; TEMP 36.8; O2SAT 94
[2024-01-11 20:26] LABS: MANUAL DIFF FLAG NO
[2024-01-11 20:27] LABS: Basophils Percent Auto 0.3 % (0-2); Eosinophils Absolute Auto 0.2 X10*3/uL (0.0-0.4); Eosinophils Percent Auto 1.4 % (0-4); Hematocrit 38.7 % (37.0-47.0); Hemoglobin 12.9 g/dl (12.0-16.0); Imm Gran Abs Auto 0.06 X10*3/uL (0.00-0.03); Imm Gran Pct Auto 0.5 % (0.0-0.4); Lymphocytes Absolute Auto 4.5 X10*3/uL (1.2-4.9); Lymphocytes Percent Auto 40.3 % (20-40); Mean Corpuscular HGB Conc 33.3 g/dl (31.0-35.0); Mean Corpuscular Hemoglobin 31.7 pg (27.0-33.0); Mean Corpuscular Volume 95.1 fL (80.0-98.0); Mean Platelet Volume 10.1 fL (9.4-12.3); Monocytes Absolute Auto 0.8 X10*3/uL (0.1-1.2); Monocytes Percent Auto 7.3 % (2-11); NRBC Pct Auto 0.5 /100WBC (0.0-0.2); Neutrophils Absolute Auto 5.6 x10*3/uL (2.0-8.3); Neutrophils Percent Auto 50.2 % (45-73); Platelet Count 219 X10*3/uL (160-400); Red Blood Count 4.07 X10*6/uL (4.20-5.50); Red Cell Distribution Width 14.1 % (11.0-16.0); White Blood Count 11.2 X10*3/uL (4.8-10.8)
[2024-01-11 20:44] LABS: Carbamazepine Tegretol 8.6 mcg/mL (5.0-12.0)
[2024-01-11 20:45] LABS: Alanine Aminotransferase 28 U/L (0-31); Albumin Level 4.3 g/dL (3.5-5.0); Alkaline Phosphatase 83 U/L (39-117); Anion Gap 11 (12-20); Aspartate Amino Transferase 23 U/L (5-31); Bilirubin Direct < 0.2 mg/dL (0.0-0.5); Bilirubin Total 0.2 mg/dL (0.0-1.0); Blood Urea Nitrogen 22 mg/dL (9-16); Calcium 10.1 mg/dL (8.4-10.2); Carbon Dioxide 30 mmol/L (22-29); Chloride 103 mmol/L (96-108); Creatinine Clr Calc Pharmacy 81.6; Estimated Glomerular Filt Rate > 60; Glucose Random 135 mg/dL (60-115); Potassium 4.8 mmol/L (3.3-5.1); Sodium 139 mmol/L (135-145); Total Protein 7.5 g/dL (6.5-8.0)
[2024-01-11] MEDS: traZODone HCL 50 MG TABLET PO (21:56)
[2024-01-11] MEDS: Atorvastatin Calcium 40 MG TABLET PO (21:56)
[2024-01-11] MEDS: ARIPiprazole 30 MG TABLET PO (21:56)
--- NOTE | 2024-01-11 23:11 | HO.PSYCHPN ---
Subjective Subjective Date of Service: 01/11/24 Reason For Visit: Mood Disorder Interim History: feels she is not improving as much as she had hoped. amenable to labs tonight and to increase abilify to 30 mg QHS. per staff, taking meds. +RIS. expansive. entitled and dismissive. refused ambien, asking for trazodone. took tylenol and seroquel and slept 7 hours. Mental Status Exam Mental Status Exam Narrative: Pt is alert and oriented; behavior is calm,cooperative guarded; dressed in casual attire; eye contact appropriate; Speech is normal rate, volume and not pressured; paranoid, worried someone will kill her if she goes home. Diagnostics Vital Signs (24Hr): Vital Signs - 24 hr 01/11/24 09:51 01/11/24 19:50 Temperature 97.2 F 98.2 F Pulse Rate 103 H 95 Respiratory Rate 16 Blood Pressure 144/65 H 158/80 H Pulse Oximetry 96 94 Oxygen Delivery Method Room Air Room Air BMI result Body Mass Index 34.9 Labs 01/11/24 20:20 01/11/24 20:20 Labs: Laboratory Results - last 48 hr 12/31/23 01/10/24 01/10/24 15:22 07:37 21:19 WBC RBC Hgb Hct MCV MCH MCHC RDW Plt Count MPV Immature Gran % (Auto) Neut % (Auto) Lymph % (Auto) [place] % (Auto) Eos % (Auto) Baso % (Auto) Lymph # (Auto) [place] # (Auto) Eos # (Auto) Baso # (Auto) Abs Immat Gran (auto) Absolute Neuts (auto) Absolute Nucleated RBC Nucleated RBC % (auto) Sodium Potassium Chloride Carbon Dioxide Anion Gap BUN Creatinine Estim Creat Clear Calc Estimated GFR POC Glucose 110 172 H Random Glucose Calcium Total Bilirubin Direct Bilirubin AST ALT Alkaline Phosphatase Total Protein Albumin Carbamazepine Ref Lab Test Result SEE NOTE 01/11/24 01/11/24 08:02 20:20 WBC 11.2 H RBC 4.07 L Hgb 12.9 Hct 38.7 MCV 95.1 MCH 31.7 MCHC 33.3 RDW 14.1 Plt Count 219 MPV 10.1 Immature Gran % (Auto) 0.5 H Neut % (Auto) 50.2 Lymph % (Auto) 40.3 H [place] % (Auto) 7.3 Eos % (Auto) 1.4 Baso % (Auto) 0.3 Lymph # (Auto) 4.5 [place] # (Auto) 0.8 Eos # (Auto) 0.2 Baso # (Auto) 0.0 Abs Immat Gran (auto) 0.06 H Absolute Neuts (auto) 5.6 Absolute Nucleated RBC 0.060 H Nucleated RBC % (auto) 0.5 H Sodium 139 Potassium 4.8 D Chloride 103 Carbon Dioxide 30 H Anion Gap 11 L BUN 22 H Creatinine 0.84 Estim Creat Clear Calc 81.6 Estimated GFR > 60 POC Glucose 102 Random Glucose 135 H Calcium 10.1 D Total Bilirubin 0.2 Direct Bilirubin < 0.2 AST 23 ALT 28 Alkaline Phosphatase 83 Total Protein 7.5 Albumin 4.3 Carbamazepine 8.6 Ref Lab Test Result Medications Medications Current Medications Acetaminophen (Acetaminophen 325 Mg Tablet) 650 mg PO Q6H PRN PRN Reason: Headache/Pain Mild Scale (1-3) Last Admin: 01/11/24 03:28 Dose: 325 mg Al Hydroxide/Mg Hydroxide (Magnesium Hydrox/Alum Hydrox 30 Ml Oral.Susp) 30 ml PO Q6H PRN PRN Reason: Heartburn/Nausea Last Admin: 01/01/24 13:24 Dose: 30 ml Apixaban (Apixaban 2.5 Mg Tablet) 7.5 mg PO BID [facility] Last Admin: 01/11/24 21:56 Dose: 7.5 mg Aripiprazole (Aripiprazole 30 Mg Tablet) 30 mg PO BEDTIME [facility] Last Admin: 01/11/24 21:56 Dose: 30 mg Atorvastatin Calcium (Atorvastatin Calcium 40 Mg Tablet) 40 mg PO BEDTIME [facility] Last Admin: 01/11/24 21:56 Dose: 40 mg Benztropine Mesylate (Benztropine Mesylate 0.5 Mg Tablet) 0.5 mg PO BID [facility] Last Admin: 01/11/24 21:56 Dose: 0.5 mg Carbamazepine (Carbamazepine Er 200 Mg Tab.Er.12h) 200 mg PO BID [facility] Last Admin: 01/11/24 21:56 Dose: 200 mg Furosemide (Furosemide 20 Mg Tablet) 20 mg PO DAILY [facility]; Protocol Last Admin: 01/11/24 09:54 Dose: 20 mg Insulin Human Lispro (Insulin Lispro 100 Unit/Ml 3 Ml Vial) 0 unit SUBCUT BID [facility]; Protocol Magnesium Hydroxide (Milk Of Magnesia 30 Ml Oral.Susp) 30 ml PO DAILY PRN PRN Reason: Constipation Last Admin: 01/11/24 12:42 Dose: 30 ml Magnesium Oxide (Magnesium Oxide 400 Mg Tablet) 400 mg PO DAILY [facility] Last Admin: 01/11/24 09:54 Dose: 400 mg Melatonin (Melatonin 3 Mg Tablet) 9 mg PO BEDTIME PRN PRN Reason: Insomnia Last Admin: 01/06/24 20:43 Dose: 9 mg Metoprolol Succinate (Metoprolol Succinate Er 25 Mg Tab.Er.24h) 25 mg PO DAILY [facility]; Protocol Last Admin: 01/11/24 09:54 Dose: 25 mg Nicotine Polacrilex (Nicotine Polacrilex 2 Mg Gum) 2 mg BUCCAL Q2H PRN PRN Reason: Nicotine Cravings Omeprazole (Omeprazole 20 Mg Capsule.Dr) 20 mg PO DAILY@0630 [facility] Last Admin: 01/11/24 06:41 Dose: 20 mg Ondansetron HCl (Ondansetron Odt 4 Mg Tab.Rapdis) 4 mg TRANSLINGU Q6H PRN PRN Reason: Nausea Last Admin: 01/11/24 10:00 Dose: 4 mg Polyethylene Glycol (Polyethylene Glycol 3350 17 Gm Powd.Pack) 17 gm PO DAILY PRN PRN Reason: Constipation Last Admin: 01/11/24 12:42 Dose: 17 gm Quetiapine Fumarate (Quetiapine Fumarate 25 Mg Tablet) 25 mg PO TID PRN PRN Reason: anxieety Last Admin: 01/11/24 21:56 Dose: 25 mg Thyroid (Thyroid,Pork 30 Mg Tablet) 120 mg PO DAILY@0630 [facility] Last Admin: 01/11/24 06:41 Dose: 120 mg Trazodone HCl (Trazodone Hcl 50 Mg Tablet) 50 mg PO BEDTIME MRX1 PRN PRN Reason: Insomnia Last Admin: 01/11/24 21:56 Dose: 50 mg Vitamin D (Cholecalciferol (Vitamin D3) 25 Mcg Tablet) 50 mcg PO DAILY [facility] Last Admin: 01/11/24 09:54 Dose: 50 mcg Zolpidem Tartrate (Zolpidem Tartrate 5 Mg Tablet) 10 mg PO BEDTIME [facility] Last Admin: 01/10/24 22:05 Dose: Not Given Allergies Allergies Allergy/AdvReac Type Severity Reaction Status Date / Time amoxicillin Allergy Unknown Unknown Uncoded 12/25/23 13:21 Pt states no food allergy Allergy Unknown Unknown Uncoded 12/25/23 13:21 Assessment & Plan Assessment & Plan (1) Bipolar affective disorder, manic, severe, with psychotic behavior: Status: Acute Code(s): F31.2 - Bipolar disorder, current episode manic severe with psychotic features Assessment and Plan: r/o schizoaffective bipolar type (2) PTSD (post-traumatic stress disorder): Status: Acute Code(s): F43.10 - Post-traumatic stress disorder, unspecified Plan 12/28: taper VPA and lamictal; start tegretol instead. do not restart caplyta; start abilify instead (had been on 20 mg in the past). ambien while hospitalized only for sleep. continue cogentin 0.5 BID and seroquel 25 TID PRN for now. continue porcine thyroid hormone. 12/29: DC lamictal entirely. increase abilify to 10 QHS. otherwise continue current mgmt. less verbose and voluble than yesterday. 12/30: increase tegretol to 200 BID, decrease VPA to 500 QHS. will discuss abilify versus vraylar with pt. grossly psychotic today. 12/31: DC VPA. declining vraylar, insisting on staying on abilify. becca slightly improved. 01/01: improved manic Sx. continue current mgmt. prefers to stay at abilify 10 for now. 01/02: remains mildly improved. increase abilify to 15 mg tonight. continue regimen otherwise. 01/03: increase abilify to 20 mg QHS. remains highly impaired, but mildly improved from earlier in stay. continue current mgmt otherwise. 01/04 continue tx. some paranoia present but accepting tx. 01/06: continue current tx plan. 01/07: continues paranoid about going home. Requesting increase in ambien. Ambien increased to 10mg PO bedtime. 01/08: Patient reports feeling good today; reports improved sleep with taking trazodone last evening. however refused ambien despite asking for increase. Pt requesting to have magnesium changed to daily. Continues focused on people trying to harm her. 01/09: continue current tx plan. 01/10: increase abilify to 30 mg daily. check labs tonight. not as improved on current regimen as had been hoped. Reason for continued inpatient stay Substantial Risk for: inability to function Time Spent With Patient Time: Total time managing care of this patient today __25__ minutes.
[2024-01-12] MEDS: Thyroid,Pork 30 MG TABLET 120 MG PO (05:50)
[2024-01-12] MEDS: Omeprazole 20 MG CAPSULE.DR PO (06:28)
[2024-01-12 07:33] LABS: Glucose, Whole Blood 118 mg/dL (60-115)
[2024-01-12 07:53] VITALS: BP 142/77; PULSE 86; RESP 18; TEMP 36.4; O2SAT 91
[2024-01-12] MEDS: carBAMazepine ER 200 MG TAB.ER.12H PO (09:09)
[2024-01-12] MEDS: Apixaban 2.5 MG TABLET 7.5 MG PO ×2 (09:09→21:10)
[2024-01-12] MEDS: Magnesium Oxide 400 MG TABLET PO (09:09)
[2024-01-12 09:10] VITALS: BP 140/83; PULSE 89
[2024-01-12] MEDS: Benztropine Mesylate 0.5 MG TABLET PO ×2 (09:10→21:10)
[2024-01-12] MEDS: Metoprolol Succinate ER 25 MG TAB.ER.24H PO (09:10)
[2024-01-12] MEDS: Cholecalciferol (Vitamin D3) 25 MCG TABLET 50 MCG PO (09:10)
[2024-01-12] MEDS: Furosemide 20 MG TABLET PO (09:10)
[2024-01-12 20:00] VITALS: BP 147/67; PULSE 90; RESP 16; TEMP 36.4; O2SAT 94
--- NOTE | 2024-01-12 20:27 | HO.PSYCHPN ---
Subjective Subjective Date of Service: 01/12/24 Reason For Visit: Mood Disorder Interim History: cooperative. paranoid delusions, disorganized, hyper-productive of verbal output. notes she is not getting better very quickly. agrees to increase tegretol to 300 BID. per staff, grandiose. quiet, withdrawn. Mental Status Exam Mental Status Exam Narrative: Pt is alert and oriented; behavior is calm,cooperative guarded; dressed in casual attire; eye contact appropriate; Speech is normal rate, volume and not pressured; paranoid, disgorging conspiracies against her in prodigious volume. Diagnostics Vital Signs (24Hr): Vital Signs - 24 hr 01/12/24 07:53 01/12/24 09:10 01/12/24 09:10 Temperature 97.5 F Pulse Rate 86 89 Respiratory Rate 18 Blood Pressure 142/77 H 140/83 H 140/83 H Pulse Oximetry 91 L Oxygen Delivery Method Room Air BMI result Body Mass Index 34.9 Labs 01/11/24 20:20 01/11/24 20:20 Labs: Laboratory Results - last 48 hr 12/31/23 01/10/24 01/11/24 15:22 21:19 08:02 WBC RBC Hgb Hct MCV MCH MCHC RDW Plt Count MPV Immature Gran % (Auto) Neut % (Auto) Lymph % (Auto) [place] % (Auto) Eos % (Auto) Baso % (Auto) Lymph # (Auto) [place] # (Auto) Eos # (Auto) Baso # (Auto) Abs Immat Gran (auto) Absolute Neuts (auto) Absolute Nucleated RBC Nucleated RBC % (auto) Sodium Potassium Chloride Carbon Dioxide Anion Gap BUN Creatinine Estim Creat Clear Calc Estimated GFR POC Glucose 172 H 102 Random Glucose Calcium Total Bilirubin Direct Bilirubin AST ALT Alkaline Phosphatase Total Protein Albumin Carbamazepine Ref Lab Test Result SEE NOTE 01/11/24 01/12/24 20:20 07:29 WBC 11.2 H RBC 4.07 L Hgb 12.9 Hct 38.7 MCV 95.1 MCH 31.7 MCHC 33.3 RDW 14.1 Plt Count 219 MPV 10.1 Immature Gran % (Auto) 0.5 H Neut % (Auto) 50.2 Lymph % (Auto) 40.3 H [place] % (Auto) 7.3 Eos % (Auto) 1.4 Baso % (Auto) 0.3 Lymph # (Auto) 4.5 [place] # (Auto) 0.8 Eos # (Auto) 0.2 Baso # (Auto) 0.0 Abs Immat Gran (auto) 0.06 H Absolute Neuts (auto) 5.6 Absolute Nucleated RBC 0.060 H Nucleated RBC % (auto) 0.5 H Sodium 139 Potassium 4.8 D Chloride 103 Carbon Dioxide 30 H Anion Gap 11 L BUN 22 H Creatinine 0.84 Estim Creat Clear Calc 81.6 Estimated GFR > 60 POC Glucose 118 H Random Glucose 135 H Calcium 10.1 D Total Bilirubin 0.2 Direct Bilirubin < 0.2 AST 23 ALT 28 Alkaline Phosphatase 83 Total Protein 7.5 Albumin 4.3 Carbamazepine 8.6 Ref Lab Test Result Medications Medications Current Medications Acetaminophen (Acetaminophen 325 Mg Tablet) 650 mg PO Q6H PRN PRN Reason: Headache/Pain Mild Scale (1-3) Last Admin: 01/11/24 03:28 Dose: 325 mg Al Hydroxide/Mg Hydroxide (Magnesium Hydrox/Alum Hydrox 30 Ml Oral.Susp) 30 ml PO Q6H PRN PRN Reason: Heartburn/Nausea Last Admin: 01/01/24 13:24 Dose: 30 ml Apixaban (Apixaban 2.5 Mg Tablet) 7.5 mg PO BID [facility] Last Admin: 01/12/24 09:09 Dose: 7.5 mg Aripiprazole (Aripiprazole 30 Mg Tablet) 30 mg PO BEDTIME [facility] Last Admin: 01/11/24 21:56 Dose: 30 mg Atorvastatin Calcium (Atorvastatin Calcium 40 Mg Tablet) 40 mg PO BEDTIME [facility] Last Admin: 01/11/24 21:56 Dose: 40 mg Benztropine Mesylate (Benztropine Mesylate 0.5 Mg Tablet) 0.5 mg PO BID [facility] Last Admin: 01/12/24 09:10 Dose: 0.5 mg Carbamazepine (Carbamazepine Er 100 Mg Tab.Er.12h) 300 mg PO BID [facility] Furosemide (Furosemide 20 Mg Tablet) 20 mg PO DAILY [facility]; Protocol Last Admin: 01/12/24 09:10 Dose: 20 mg Insulin Human Lispro (Insulin Lispro 100 Unit/Ml 3 Ml Vial) 0 unit SUBCUT BID [facility]; Protocol Last Admin: 01/12/24 09:11 Dose: Not Given Magnesium Hydroxide (Milk Of Magnesia 30 Ml Oral.Susp) 30 ml PO DAILY PRN PRN Reason: Constipation Last Admin: 01/11/24 12:42 Dose: 30 ml Magnesium Oxide (Magnesium Oxide 400 Mg Tablet) 400 mg PO DAILY [facility] Last Admin: 01/12/24 09:09 Dose: 400 mg Melatonin (Melatonin 3 Mg Tablet) 9 mg PO BEDTIME PRN PRN Reason: Insomnia Last Admin: 01/06/24 20:43 Dose: 9 mg Metoprolol Succinate (Metoprolol Succinate Er 25 Mg Tab.Er.24h) 25 mg PO DAILY [facility]; Protocol Last Admin: 01/12/24 09:10 Dose: 25 mg Nicotine Polacrilex (Nicotine Polacrilex 2 Mg Gum) 2 mg BUCCAL Q2H PRN PRN Reason: Nicotine Cravings Omeprazole (Omeprazole 20 Mg Capsule.Dr) 20 mg PO DAILY@629 [facility] Last Admin: 01/12/24 06:28 Dose: 20 mg Ondansetron HCl (Ondansetron Odt 4 Mg Tab.Rapdis) 4 mg TRANSLINGU Q6H PRN PRN Reason: Nausea Last Admin: 01/11/24 10:00 Dose: 4 mg Polyethylene Glycol (Polyethylene Glycol 3350 17 Gm Powd.Pack) 17 gm PO DAILY PRN PRN Reason: Constipation Last Admin: 01/11/24 12:42 Dose: 17 gm Quetiapine Fumarate (Quetiapine Fumarate 25 Mg Tablet) 25 mg PO TID PRN PRN Reason: anxieety Last Admin: 01/11/24 21:56 Dose: 25 mg Thyroid (Thyroid,Pork 30 Mg Tablet) 120 mg PO DAILY@0630 [facility] Last Admin: 01/12/24 05:50 Dose: 120 mg Trazodone HCl (Trazodone Hcl 50 Mg Tablet) 50 mg PO BEDTIME MRX1 PRN PRN Reason: Insomnia Last Admin: 01/11/24 21:56 Dose: 50 mg Vitamin D (Cholecalciferol (Vitamin D3) 25 Mcg Tablet) 50 mcg PO DAILY [facility] Last Admin: 01/12/24 09:10 Dose: 50 mcg Zolpidem Tartrate (Zolpidem Tartrate 5 Mg Tablet) 10 mg PO BEDTIME [facility] Last Admin: 01/12/24 01:34 Dose: Not Given Allergies Allergies Allergy/AdvReac Type Severity Reaction Status Date / Time amoxicillin Allergy Unknown Unknown Uncoded 12/25/23 13:21 Pt states no food allergy Allergy Unknown Unknown Uncoded 12/25/23 13:21 Assessment & Plan Assessment & Plan (1) Bipolar affective disorder, manic, severe, with psychotic behavior: Status: Acute Code(s): F31.2 - Bipolar disorder, current episode manic severe with psychotic features Assessment and Plan: r/o schizoaffective bipolar type (2) PTSD (post-traumatic stress disorder): Status: Acute Code(s): F43.10 - Post-traumatic stress disorder, unspecified Plan 12/28: taper VPA and lamictal; start tegretol instead. do not restart caplyta; start abilify instead (had been on 20 mg in the past). ambien while hospitalized only for sleep. continue cogentin 0.5 BID and seroquel 25 TID PRN for now. continue porcine thyroid hormone. 12/29: DC lamictal entirely. increase abilify to 10 QHS. otherwise continue current mgmt. less verbose and voluble than yesterday. 12/30: increase tegretol to 200 BID, decrease VPA to 500 QHS. will discuss abilify versus vraylar with pt. grossly psychotic today. 12/31: DC VPA. declining vraylar, insisting on staying on abilify. becca slightly improved. 01/01: improved manic Sx. continue current mgmt. prefers to stay at abilify 10 for now. 01/02: remains mildly improved. increase abilify to 15 mg tonight. continue regimen otherwise. 01/03: increase abilify to 20 mg QHS. remains highly impaired, but mildly improved from earlier in stay. continue current mgmt otherwise. 01/04 continue tx. some paranoia present but accepting tx. 01/06: continue current tx plan. 01/07: continues paranoid about going home. Requesting increase in ambien. Ambien increased to 10mg PO bedtime. 01/08: Patient reports feeling good today; reports improved sleep with taking trazodone last evening. however refused ambien despite asking for increase. Pt requesting to have magnesium changed to daily. Continues focused on people trying to harm her. 01/09: continue current tx plan. 01/10: increase abilify to 30 mg daily. check labs tonight. not as improved on current regimen as had been hoped. 01/11: tegretol 8.6 (5-12). increase tegretol to 300 BID. continues manic, paranoid delusions. Reason for continued inpatient stay Substantial Risk for: inability to function Time Spent With Patient Time: Total time managing care of this patient today __25__ minutes.
[2024-01-12] MEDS: ARIPiprazole 30 MG TABLET PO (21:10)
[2024-01-12] MEDS: carBAMazepine ER 100 MG TAB.ER.12H 300 MG PO (21:10)
[2024-01-12] MEDS: Atorvastatin Calcium 40 MG TABLET PO (21:11)
[2024-01-12] MEDS: QUEtiapine Fumarate 25 MG TABLET PO (21:11)
[2024-01-12] MEDS: traZODone HCL 50 MG TABLET PO (21:11)
[2024-01-12 21:23] LABS: Glucose, Whole Blood 149 mg/dL (60-115)
[2024-01-13] MEDS: traZODone HCL 50 MG TABLET PO (03:09)
[2024-01-13] MEDS: QUEtiapine Fumarate 25 MG TABLET PO (03:13)
[2024-01-13] MEDS: Thyroid,Pork 30 MG TABLET 120 MG PO (06:27)
[2024-01-13] MEDS: Omeprazole 20 MG CAPSULE.DR PO (06:29)
[2024-01-13 07:44] LABS: Glucose, Whole Blood 126 mg/dL (60-115)
[2024-01-13 07:46] VITALS: BP 121/57; PULSE 85; RESP 16; TEMP 36.9; O2SAT 95
[2024-01-13] MEDS: Apixaban 2.5 MG TABLET 7.5 MG PO ×2 (08:40→20:24)
[2024-01-13] MEDS: Cholecalciferol (Vitamin D3) 25 MCG TABLET 50 MCG PO (08:40)
[2024-01-13] MEDS: Magnesium Oxide 400 MG TABLET PO (08:40)
[2024-01-13] MEDS: Benztropine Mesylate 0.5 MG TABLET PO ×2 (08:40→20:27)
[2024-01-13] MEDS: Metoprolol Succinate ER 25 MG TAB.ER.24H PO (08:40)
[2024-01-13] MEDS: carBAMazepine ER 100 MG TAB.ER.12H 300 MG PO ×2 (08:40→20:25)
[2024-01-13] MEDS: Furosemide 20 MG TABLET PO (08:40)
[2024-01-13] MEDS: polyethylene glycoL 3350 17 GM POWD.PACK PO (11:15)
[2024-01-13] MEDS: Milk of Magnesia 30 ML ORAL.SUSP PO (11:17)
--- NOTE | 2024-01-13 12:56 | HO.PSYCHPN ---
Subjective Subjective Date of Service: 01/13/24 Reason For Visit: Mood Disorder Interim History: c/o poor sleep and rapid thoughts. medications aren't working enough. hyperverbal, disorganized, paranoid delusions. in short, no change. per staff, paranoid, delusional. using TEDs. Mental Status Exam Mental Status Exam Narrative: Pt is alert and oriented; behavior is calm,cooperative guarded; dressed in casual attire; eye contact appropriate; Speech is normal rate, volume and not pressured; paranoid, disgorging conspiracies. Diagnostics Vital Signs (24Hr): Vital Signs - 24 hr 01/12/24 20:00 01/13/24 07:46 Temperature 97.5 F 98.4 F Pulse Rate 90 85 Respiratory Rate 16 16 Blood Pressure 147/67 H 121/57 L Pulse Oximetry 94 95 Oxygen Delivery Method Room Air Room Air BMI result Body Mass Index 34.9 Labs 01/11/24 20:20 01/11/24 20:20 Labs: Laboratory Results - last 48 hr 01/11/24 01/12/24 01/12/24 20:20 07:29 21:08 WBC 11.2 H RBC 4.07 L Hgb 12.9 Hct 38.7 MCV 95.1 MCH 31.7 MCHC 33.3 RDW 14.1 Plt Count 219 MPV 10.1 Immature Gran % (Auto) 0.5 H Neut % (Auto) 50.2 Lymph % (Auto) 40.3 H [place] % (Auto) 7.3 Eos % (Auto) 1.4 Baso % (Auto) 0.3 Lymph # (Auto) 4.5 [place] # (Auto) 0.8 Eos # (Auto) 0.2 Baso # (Auto) 0.0 Abs Immat Gran (auto) 0.06 H Absolute Neuts (auto) 5.6 Absolute Nucleated RBC 0.060 H Nucleated RBC % (auto) 0.5 H Sodium 139 Potassium 4.8 D Chloride 103 Carbon Dioxide 30 H Anion Gap 11 L BUN 22 H Creatinine 0.84 Estim Creat Clear Calc 81.6 Estimated GFR > 60 POC Glucose 118 H 149 H Random Glucose 135 H Calcium 10.1 D Total Bilirubin 0.2 Direct Bilirubin < 0.2 AST 23 ALT 28 Alkaline Phosphatase 83 Total Protein 7.5 Albumin 4.3 Carbamazepine 8.6 01/13/24 07:40 WBC RBC Hgb Hct MCV MCH MCHC RDW Plt Count MPV Immature Gran % (Auto) Neut % (Auto) Lymph % (Auto) [place] % (Auto) Eos % (Auto) Baso % (Auto) Lymph # (Auto) [place] # (Auto) Eos # (Auto) Baso # (Auto) Abs Immat Gran (auto) Absolute Neuts (auto) Absolute Nucleated RBC Nucleated RBC % (auto) Sodium Potassium Chloride Carbon Dioxide Anion Gap BUN Creatinine Estim Creat Clear Calc Estimated GFR POC Glucose 126 H Random Glucose Calcium Total Bilirubin Direct Bilirubin AST ALT Alkaline Phosphatase Total Protein Albumin Carbamazepine Medications Medications Current Medications Acetaminophen (Acetaminophen 325 Mg Tablet) 650 mg PO Q6H PRN PRN Reason: Headache/Pain Mild Scale (1-3) Last Admin: 01/11/24 03:28 Dose: 325 mg Al Hydroxide/Mg Hydroxide (Magnesium Hydrox/Alum Hydrox 30 Ml Oral.Susp) 30 ml PO Q6H PRN PRN Reason: Heartburn/Nausea Last Admin: 01/01/24 13:24 Dose: 30 ml Apixaban (Apixaban 2.5 Mg Tablet) 7.5 mg PO BID [facility] Last Admin: 01/13/24 08:40 Dose: 7.5 mg Aripiprazole (Aripiprazole 30 Mg Tablet) 30 mg PO BEDTIME [facility] Last Admin: 01/12/24 21:10 Dose: 30 mg Atorvastatin Calcium (Atorvastatin Calcium 40 Mg Tablet) 40 mg PO BEDTIME [facility] Last Admin: 01/12/24 21:11 Dose: 40 mg Benztropine Mesylate (Benztropine Mesylate 0.5 Mg Tablet) 0.5 mg PO BID [facility] Last Admin: 01/13/24 08:40 Dose: 0.5 mg Carbamazepine (Carbamazepine Er 100 Mg Tab.Er.12h) 300 mg PO BID [facility] Last Admin: 01/13/24 08:40 Dose: 300 mg Furosemide (Furosemide 20 Mg Tablet) 20 mg PO DAILY [facility]; Protocol Last Admin: 01/13/24 08:40 Dose: 20 mg Insulin Human Lispro (Insulin Lispro 100 Unit/Ml 3 Ml Vial) 0 unit SUBCUT BID [facility]; Protocol Last Admin: 01/13/24 08:11 Dose: Not Given Magnesium Hydroxide (Milk Of Magnesia 30 Ml Oral.Susp) 30 ml PO DAILY PRN PRN Reason: Constipation Last Admin: 01/13/24 11:17 Dose: 30 ml Magnesium Oxide (Magnesium Oxide 400 Mg Tablet) 400 mg PO DAILY [facility] Last Admin: 01/13/24 08:40 Dose: 400 mg Melatonin (Melatonin 3 Mg Tablet) 9 mg PO BEDTIME PRN PRN Reason: Insomnia Last Admin: 01/06/24 20:43 Dose: 9 mg Metoprolol Succinate (Metoprolol Succinate Er 25 Mg Tab.Er.24h) 25 mg PO DAILY [facility]; Protocol Last Admin: 01/13/24 08:40 Dose: 25 mg Nicotine Polacrilex (Nicotine Polacrilex 2 Mg Gum) 2 mg BUCCAL Q2H PRN PRN Reason: Nicotine Cravings Omeprazole (Omeprazole 20 Mg Capsule.Dr) 20 mg PO DAILY@0630 [facility] Last Admin: 01/13/24 06:29 Dose: 20 mg Ondansetron HCl (Ondansetron Odt 4 Mg Tab.Rapdis) 4 mg TRANSLINGU Q6H PRN PRN Reason: Nausea Last Admin: 01/11/24 10:00 Dose: 4 mg Polyethylene Glycol (Polyethylene Glycol 3350 17 Gm Powd.Pack) 17 gm PO DAILY PRN PRN Reason: Constipation Last Admin: 01/13/24 11:15 Dose: 17 gm Quetiapine Fumarate (Quetiapine Fumarate 25 Mg Tablet) 25 mg PO TID PRN PRN Reason: anxieety Last Admin: 01/13/24 03:13 Dose: 25 mg Thyroid (Thyroid,Pork 30 Mg Tablet) 120 mg PO DAILY@0630 [facility] Last Admin: 01/13/24 06:27 Dose: 120 mg Trazodone HCl (Trazodone Hcl 50 Mg Tablet) 50 mg PO BEDTIME MRX1 PRN PRN Reason: Insomnia Last Admin: 01/13/24 03:09 Dose: 50 mg Vitamin D (Cholecalciferol (Vitamin D3) 25 Mcg Tablet) 50 mcg PO DAILY [facility] Last Admin: 01/13/24 08:40 Dose: 50 mcg Zolpidem Tartrate (Zolpidem Tartrate 5 Mg Tablet) 10 mg PO BEDTIME [facility] Last Admin: 01/12/24 22:25 Dose: Not Given Allergies Allergies Allergy/AdvReac Type Severity Reaction Status Date / Time amoxicillin Allergy Unknown Unknown Uncoded 12/25/23 13:21 Pt states no food allergy Allergy Unknown Unknown Uncoded 12/25/23 13:21 Assessment & Plan Assessment & Plan (1) Bipolar affective disorder, manic, severe, with psychotic behavior: Status: Acute Code(s): F31.2 - Bipolar disorder, current episode manic severe with psychotic features Assessment and Plan: r/o schizoaffective bipolar type (2) PTSD (post-traumatic stress disorder): Status: Acute Code(s): F43.10 - Post-traumatic stress disorder, unspecified Plan 12/28: taper VPA and lamictal; start tegretol instead. do not restart caplyta; start abilify instead (had been on 20 mg in the past). ambien while hospitalized only for sleep. continue cogentin 0.5 BID and seroquel 25 TID PRN for now. continue porcine thyroid hormone. 12/29: DC lamictal entirely. increase abilify to 10 QHS. otherwise continue current mgmt. less verbose and voluble than yesterday. 12/30: increase tegretol to 200 BID, decrease VPA to 500 QHS. will discuss abilify versus vraylar with pt. grossly psychotic today. 12/31: DC VPA. declining vraylar, insisting on staying on abilify. becca slightly improved. 01/01: improved manic Sx. continue current mgmt. prefers to stay at abilify 10 for now. 01/02: remains mildly improved. increase abilify to 15 mg tonight. continue regimen otherwise. 01/03: increase abilify to 20 mg QHS. remains highly impaired, but mildly improved from earlier in stay. continue current mgmt otherwise. 01/04 continue tx. some paranoia present but accepting tx. 01/06: continue current tx plan. 01/07: continues paranoid about going home. Requesting increase in ambien. Ambien increased to 10mg PO bedtime. 01/08: Patient reports feeling good today; reports improved sleep with taking trazodone last evening. however refused ambien despite asking for increase. Pt requesting to have magnesium changed to daily. Continues focused on people trying to harm her. 01/09: continue current tx plan. 01/10: increase abilify to 30 mg daily. check labs tonight. not as improved on current regimen as had been hoped. 01/11: tegretol 8.6 (5-12). increase tegretol to 300 BID. continues manic, paranoid delusions. 01/12: as for yesterday in presentation. c/o poor sleep, grogginess in morning. agrees to increase HS seroquel and DC trazodone. Reason for continued inpatient stay Substantial Risk for: inability to function Time Spent With Patient Time: Total time managing care of this patient today __25__ minutes.
[2024-01-13 20:00] VITALS: BP 121/57; PULSE 90; RESP 16; TEMP 36.8; O2SAT 95
[2024-01-13] MEDS: ARIPiprazole 30 MG TABLET PO (20:27)
[2024-01-13] MEDS: Zolpidem Tartrate 5 MG TABLET 10 MG PO (20:27)
[2024-01-13] MEDS: Atorvastatin Calcium 40 MG TABLET PO (20:27)
[2024-01-13 20:31] LABS: Glucose, Whole Blood 119 mg/dL (60-115)
[2024-01-14] MEDS: Thyroid,Pork 30 MG TABLET 120 MG PO (06:35)
[2024-01-14] MEDS: Omeprazole 20 MG CAPSULE.DR PO (06:35)
[2024-01-14 07:00] VITALS: BMI 35.6
[2024-01-14 07:20] VITALS: BP 139/62; PULSE 85; RESP 14; TEMP 36.4; O2SAT 94
[2024-01-14 07:56] LABS: Glucose, Whole Blood 144 mg/dL (60-115)
[2024-01-14] MEDS: Benztropine Mesylate 0.5 MG TABLET PO ×2 (08:35→20:46)
[2024-01-14] MEDS: carBAMazepine ER 100 MG TAB.ER.12H 300 MG PO ×2 (08:35→20:45)
[2024-01-14 08:36] VITALS: BP 139/62; PULSE 85
[2024-01-14] MEDS: Apixaban 2.5 MG TABLET 7.5 MG PO ×2 (08:36→20:46)
[2024-01-14] MEDS: Furosemide 20 MG TABLET PO (08:36)
[2024-01-14] MEDS: Metoprolol Succinate ER 25 MG TAB.ER.24H PO (08:36)
[2024-01-14] MEDS: Cholecalciferol (Vitamin D3) 25 MCG TABLET 50 MCG PO (08:37)
[2024-01-14] MEDS: Magnesium Oxide 400 MG TABLET PO (08:37)
[2024-01-14] MEDS: DULAGLUTIDE 1.5 MG/0.5 ML 1.5 EACH SUBCUT (09:38)
--- NOTE | 2024-01-14 17:05 | HO.PSYCHPN ---
Subjective Subjective Date of Service: 01/14/24 Reason For Visit: Mood Disorder Interim History: less disorganized and paranoid. slept a bit better. thoughts slowed a bit. improving. Mental Status Exam Mental Status Exam Narrative: Pt is alert and oriented; behavior is calm,cooperative; dressed in casual attire; eye contact appropriate; Speech is normal rate, volume and not pressured; less voluble, less paranoid, less focus on conspiracies. no SI/HI/AVH expressed. Diagnostics Vital Signs (24Hr): Vital Signs - 24 hr 01/13/24 20:00 01/14/24 07:20 01/14/24 08:36 Temperature 98.2 F 97.6 F Pulse Rate 90 85 85 Respiratory Rate 16 14 Blood Pressure 121/57 L 139/62 139/62 Pulse Oximetry 95 94 Oxygen Delivery Method Room Air Room Air 01/14/24 08:36 Temperature Pulse Rate Respiratory Rate Blood Pressure 139/62 Pulse Oximetry Oxygen Delivery Method BMI result Body Mass Index 35.6 Labs 01/11/24 20:20 01/11/24 20:20 Labs: Laboratory Results - last 48 hr 01/12/24 01/13/24 01/13/24 21:08 07:40 20:27 POC Glucose 149 H 126 H 119 H 01/14/24 07:51 POC Glucose 144 H Medications Medications Current Medications Acetaminophen (Acetaminophen 325 Mg Tablet) 650 mg PO Q6H PRN PRN Reason: Headache/Pain Mild Scale (1-3) Last Admin: 01/11/24 03:28 Dose: 325 mg Al Hydroxide/Mg Hydroxide (Magnesium Hydrox/Alum Hydrox 30 Ml Oral.Susp) 30 ml PO Q6H PRN PRN Reason: Heartburn/Nausea Last Admin: 01/01/24 13:24 Dose: 30 ml Apixaban (Apixaban 2.5 Mg Tablet) 7.5 mg PO BID [facility] Last Admin: 01/14/24 08:36 Dose: 7.5 mg Aripiprazole (Aripiprazole 30 Mg Tablet) 30 mg PO BEDTIME [facility] Last Admin: 01/13/24 20:27 Dose: 30 mg Atorvastatin Calcium (Atorvastatin Calcium 40 Mg Tablet) 40 mg PO BEDTIME [facility] Last Admin: 01/13/24 20:27 Dose: 40 mg Benztropine Mesylate (Benztropine Mesylate 0.5 Mg Tablet) 0.5 mg PO BID [facility] Last Admin: 01/14/24 08:35 Dose: 0.5 mg Carbamazepine (Carbamazepine Er 100 Mg Tab.Er.12h) 300 mg PO BID [facility] Last Admin: 01/14/24 08:35 Dose: 300 mg Furosemide (Furosemide 20 Mg Tablet) 20 mg PO DAILY [facility]; Protocol Last Admin: 01/14/24 08:36 Dose: 20 mg Insulin Human Lispro (Insulin Lispro 100 Unit/Ml 3 Ml Vial) 0 unit SUBCUT BID [facility]; Protocol Last Admin: 01/14/24 09:22 Dose: Not Given Magnesium Hydroxide (Milk Of Magnesia 30 Ml Oral.Susp) 30 ml PO DAILY PRN PRN Reason: Constipation Last Admin: 01/13/24 11:17 Dose: 30 ml Magnesium Oxide (Magnesium Oxide 400 Mg Tablet) 400 mg PO DAILY [facility] Last Admin: 01/14/24 08:37 Dose: 400 mg Melatonin (Melatonin 3 Mg Tablet) 9 mg PO BEDTIME PRN PRN Reason: Insomnia Last Admin: 01/06/24 20:43 Dose: 9 mg Metoprolol Succinate (Metoprolol Succinate Er 25 Mg Tab.Er.24h) 25 mg PO DAILY [facility]; Protocol Last Admin: 01/14/24 08:36 Dose: 25 mg Nicotine Polacrilex (Nicotine Polacrilex 2 Mg Gum) 2 mg BUCCAL Q2H PRN PRN Reason: Nicotine Cravings Pt Own(Dulaglutide [ Trulicity] 1.5 Mg/0. 5 Ml Pen Injector) 1.5 mg SUBCUT Th [facility] Last Admin: 01/14/24 09:38 Dose: 1.5 mg Omeprazole (Omeprazole 20 Mg Capsule.Dr) 20 mg PO DAILY@0630 [facility] Last Admin: 01/14/24 06:35 Dose: 20 mg Ondansetron HCl (Ondansetron Odt 4 Mg Tab.Rapdis) 4 mg TRANSLINGU Q6H PRN PRN Reason: Nausea Last Admin: 01/11/24 10:00 Dose: 4 mg Polyethylene Glycol (Polyethylene Glycol 3350 17 Gm Powd.Pack) 17 gm PO DAILY PRN PRN Reason: Constipation Last Admin: 01/13/24 11:15 Dose: 17 gm Quetiapine Fumarate (Quetiapine Fumarate 25 Mg Tablet) 25 mg PO TID PRN PRN Reason: anxieety Last Admin: 01/13/24 03:13 Dose: 25 mg Quetiapine Fumarate (Quetiapine Fumarate 25 Mg Tablet) 25 mg PO BEDTIME [facility] Last Admin: 01/14/24 00:39 Dose: Not Given Thyroid (Thyroid,Pork 30 Mg Tablet) 120 mg PO DAILY@0630 [facility] Last Admin: 01/14/24 06:35 Dose: 120 mg Trazodone HCl (Trazodone Hcl 50 Mg Tablet) 50 mg PO BEDTIME MRX1 PRN PRN Reason: insomnia Vitamin D (Cholecalciferol (Vitamin D3) 25 Mcg Tablet) 50 mcg PO DAILY [facility] Last Admin: 01/14/24 08:37 Dose: 50 mcg Allergies Allergies Allergy/AdvReac Type Severity Reaction Status Date / Time amoxicillin Allergy Unknown Unknown Uncoded 12/25/23 13:21 Pt states no food allergy Allergy Unknown Unknown Uncoded 12/25/23 13:21 Assessment & Plan Assessment & Plan (1) Bipolar affective disorder, manic, severe, with psychotic behavior: Status: Acute Code(s): F31.2 - Bipolar disorder, current episode manic severe with psychotic features Assessment and Plan: r/o schizoaffective bipolar type (2) PTSD (post-traumatic stress disorder): Status: Acute Code(s): F43.10 - Post-traumatic stress disorder, unspecified Plan 12/28: taper VPA and lamictal; start tegretol instead. do not restart caplyta; start abilify instead (had been on 20 mg in the past). ambien while hospitalized only for sleep. continue cogentin 0.5 BID and seroquel 25 TID PRN for now. continue porcine thyroid hormone. 12/29: DC lamictal entirely. increase abilify to 10 QHS. otherwise continue current mgmt. less verbose and voluble than yesterday. 12/30: increase tegretol to 200 BID, decrease VPA to 500 QHS. will discuss abilify versus vraylar with pt. grossly psychotic today. 12/31: DC VPA. declining vraylar, insisting on staying on abilify. becca slightly improved. 01/01: improved manic Sx. continue current mgmt. prefers to stay at abilify 10 for now. 01/02: remains mildly improved. increase abilify to 15 mg tonight. continue regimen otherwise. 01/03: increase abilify to 20 mg QHS. remains highly impaired, but mildly improved from earlier in stay. continue current mgmt otherwise. 01/04 continue tx. some paranoia present but accepting tx. 01/06: continue current tx plan. 01/07: continues paranoid about going home. Requesting increase in ambien. Ambien increased to 10mg PO bedtime. 01/08: Patient reports feeling good today; reports improved sleep with taking trazodone last evening. however refused ambien despite asking for increase. Pt requesting to have magnesium changed to daily. Continues focused on people trying to harm her. 01/09: continue current tx plan. 01/10: increase abilify to 30 mg daily. check labs tonight. not as improved on current regimen as had been hoped. 01/11: tegretol 8.6 (5-12). increase tegretol to 300 BID. continues manic, paranoid delusions. 01/12: as for yesterday in presentation. c/o poor sleep, grogginess in morning. agrees to increase HS seroquel and DC trazodone. 01/13: slept better, thoughts slower, feels starting to improve. continue current mgmt. Reason for continued inpatient stay Substantial Risk for: inability to function and rapid decompensation Time Spent With Patient Time: Total time managing care of this patient today __25__ minutes.
[2024-01-14 20:00] VITALS: BP 155/70; PULSE 91; RESP 18; TEMP 37; O2SAT 96
[2024-01-14] MEDS: ARIPiprazole 30 MG TABLET PO (20:46)
[2024-01-14] MEDS: Atorvastatin Calcium 40 MG TABLET PO (20:46)
[2024-01-14] MEDS: traZODone HCL 50 MG TABLET PO (20:46)
[2024-01-14 21:38] LABS: Glucose, Whole Blood 180 mg/dL (60-115)
[2024-01-15] MEDS: Thyroid,Pork 30 MG TABLET 120 MG PO (05:20)
[2024-01-15] MEDS: Omeprazole 20 MG CAPSULE.DR PO (05:20)
[2024-01-15 07:44] VITALS: BP 140/64; PULSE 88; RESP 14; TEMP 36.6; O2SAT 97
[2024-01-15 07:53] LABS: Glucose, Whole Blood 105 mg/dL (60-115)
[2024-01-15] MEDS: Furosemide 20 MG TABLET PO (08:31)
[2024-01-15] MEDS: Ondansetron ODT 4 MG TAB.RAPDIS TRANSLINGU (08:31)
[2024-01-15] MEDS: Magnesium Oxide 400 MG TABLET PO (08:32)
[2024-01-15] MEDS: Apixaban 2.5 MG TABLET 7.5 MG PO ×2 (08:32→21:20)
[2024-01-15] MEDS: Cholecalciferol (Vitamin D3) 25 MCG TABLET 50 MCG PO (08:32)
[2024-01-15] MEDS: Metoprolol Succinate ER 25 MG TAB.ER.24H PO (08:32)
[2024-01-15] MEDS: carBAMazepine ER 100 MG TAB.ER.12H 300 MG PO ×2 (08:32→21:21)
[2024-01-15] MEDS: Benztropine Mesylate 0.5 MG TABLET PO ×2 (08:32→21:19)
[2024-01-15] MEDS: QUEtiapine Fumarate 25 MG TABLET PO (08:42)
--- NOTE | 2024-01-15 15:59 | HO.PSYCHPN ---
Subjective Subjective Date of Service: 01/15/24 Reason For Visit: Mood Disorder Interim History: c/o poor sleep overnight. asking for increase in available seroquel at HS. paranoid delusions. per staff, attending groups. feeling excellent. cheery, on the right meds. more pleasant, calm. sociable. occasional delusions but doing better. Mental Status Exam Mental Status Exam Narrative: Pt is alert and oriented; behavior is calm,cooperative; dressed in casual attire; eye contact appropriate; Speech is normal rate, volume and not pressured; less voluble, less paranoid, less focus on conspiracies. no SI/HI/AVH expressed. Diagnostics Vital Signs (24Hr): Vital Signs - 24 hr 01/14/24 20:00 01/15/24 07:44 Temperature 98.6 F 97.8 F Pulse Rate 91 88 Respiratory Rate 18 14 Blood Pressure 155/70 H 140/64 H Pulse Oximetry 96 97 Oxygen Delivery Method Room Air Room Air BMI result Body Mass Index 35.6 Labs 01/11/24 20:20 01/11/24 20:20 Labs: Laboratory Results - last 48 hr 01/13/24 01/14/24 01/14/24 20:27 07:51 21:33 POC Glucose 119 H 144 H 180 H 01/15/24 07:46 POC Glucose 105 Medications Medications Current Medications Acetaminophen (Acetaminophen 325 Mg Tablet) 650 mg PO Q6H PRN PRN Reason: Headache/Pain Mild Scale (1-3) Last Admin: 01/11/24 03:28 Dose: 325 mg Al Hydroxide/Mg Hydroxide (Magnesium Hydrox/Alum Hydrox 30 Ml Oral.Susp) 30 ml PO Q6H PRN PRN Reason: Heartburn/Nausea Last Admin: 01/01/24 13:24 Dose: 30 ml Apixaban (Apixaban 2.5 Mg Tablet) 7.5 mg PO BID [facility] Last Admin: 01/15/24 08:32 Dose: 7.5 mg Aripiprazole (Aripiprazole 30 Mg Tablet) 30 mg PO BEDTIME [facility] Last Admin: 01/14/24 20:46 Dose: 30 mg Atorvastatin Calcium (Atorvastatin Calcium 40 Mg Tablet) 40 mg PO BEDTIME [facility] Last Admin: 01/14/24 20:46 Dose: 40 mg Benztropine Mesylate (Benztropine Mesylate 0.5 Mg Tablet) 0.5 mg PO BID [facility] Last Admin: 01/15/24 08:32 Dose: 0.5 mg Carbamazepine (Carbamazepine Er 100 Mg Tab.Er.12h) 300 mg PO BID [facility] Last Admin: 01/15/24 08:32 Dose: 300 mg Furosemide (Furosemide 20 Mg Tablet) 20 mg PO DAILY [facility]; Protocol Last Admin: 01/15/24 08:31 Dose: 20 mg Insulin Human Lispro (Insulin Lispro 100 Unit/Ml 3 Ml Vial) 0 unit SUBCUT BID [facility]; Protocol Last Admin: 01/15/24 08:57 Dose: Not Given Magnesium Hydroxide (Milk Of Magnesia 30 Ml Oral.Susp) 30 ml PO DAILY PRN PRN Reason: Constipation Last Admin: 01/13/24 11:17 Dose: 30 ml Magnesium Oxide (Magnesium Oxide 400 Mg Tablet) 400 mg PO DAILY [facility] Last Admin: 01/15/24 08:32 Dose: 400 mg Melatonin (Melatonin 3 Mg Tablet) 9 mg PO BEDTIME PRN PRN Reason: Insomnia Last Admin: 01/06/24 20:43 Dose: 9 mg Metoprolol Succinate (Metoprolol Succinate Er 25 Mg Tab.Er.24h) 25 mg PO DAILY [facility]; Protocol Last Admin: 01/15/24 08:32 Dose: 25 mg Nicotine Polacrilex (Nicotine Polacrilex 2 Mg Gum) 2 mg BUCCAL Q2H PRN PRN Reason: Nicotine Cravings Pt Own(Dulaglutide [ Trulicity] 1.5 Mg/0. 5 Ml Pen Injector) 1.5 mg SUBCUT Th [facility] Last Admin: 01/14/24 09:38 Dose: 1.5 mg Omeprazole (Omeprazole 20 Mg Capsule.Dr) 20 mg PO DAILY@0630 [facility] Last Admin: 01/15/24 05:20 Dose: 20 mg Ondansetron HCl (Ondansetron Odt 4 Mg Tab.Rapdis) 4 mg TRANSLINGU Q6H PRN PRN Reason: Nausea Last Admin: 01/15/24 08:31 Dose: 4 mg Polyethylene Glycol (Polyethylene Glycol 3350 17 Gm Powd.Pack) 17 gm PO DAILY PRN PRN Reason: Constipation Last Admin: 01/13/24 11:15 Dose: 17 gm Quetiapine Fumarate (Quetiapine Fumarate 25 Mg Tablet) 25 mg PO TID PRN PRN Reason: anxieety Last Admin: 01/15/24 08:42 Dose: 25 mg Quetiapine Fumarate (Quetiapine Fumarate 25 Mg Tablet) 25 mg PO BEDTIME [facility] Last Admin: 01/14/24 23:04 Dose: Not Given Thyroid (Thyroid,Pork 30 Mg Tablet) 120 mg PO DAILY@0630 [facility] Last Admin: 01/15/24 05:20 Dose: 120 mg Trazodone HCl (Trazodone Hcl 50 Mg Tablet) 50 mg PO BEDTIME MRX1 PRN PRN Reason: insomnia Last Admin: 01/14/24 20:46 Dose: 50 mg Vitamin D (Cholecalciferol (Vitamin D3) 25 Mcg Tablet) 50 mcg PO DAILY [facility] Last Admin: 01/15/24 08:32 Dose: 50 mcg Allergies Allergies Allergy/AdvReac Type Severity Reaction Status Date / Time amoxicillin Allergy Unknown Unknown Uncoded 12/25/23 13:21 Pt states no food allergy Allergy Unknown Unknown Uncoded 12/25/23 13:21 Assessment & Plan Assessment & Plan (1) Bipolar affective disorder, manic, severe, with psychotic behavior: Status: Acute Code(s): F31.2 - Bipolar disorder, current episode manic severe with psychotic features Assessment and Plan: r/o schizoaffective bipolar type (2) PTSD (post-traumatic stress disorder): Status: Acute Code(s): F43.10 - Post-traumatic stress disorder, unspecified Plan 12/28: taper VPA and lamictal; start tegretol instead. do not restart caplyta; start abilify instead (had been on 20 mg in the past). ambien while hospitalized only for sleep. continue cogentin 0.5 BID and seroquel 25 TID PRN for now. continue porcine thyroid hormone. 12/29: DC lamictal entirely. increase abilify to 10 QHS. otherwise continue current mgmt. less verbose and voluble than yesterday. 12/30: increase tegretol to 200 BID, decrease VPA to 500 QHS. will discuss abilify versus vraylar with pt. grossly psychotic today. 12/31: DC VPA. declining vraylar, insisting on staying on abilify. becca slightly improved. 01/01: improved manic Sx. continue current mgmt. prefers to stay at abilify 10 for now. 01/02: remains mildly improved. increase abilify to 15 mg tonight. continue regimen otherwise. 01/03: increase abilify to 20 mg QHS. remains highly impaired, but mildly improved from earlier in stay. continue current mgmt otherwise. 01/04 continue tx. some paranoia present but accepting tx. 01/06: continue current tx plan. 01/07: continues paranoid about going home. Requesting increase in ambien. Ambien increased to 10mg PO bedtime. 01/08: Patient reports feeling good today; reports improved sleep with taking trazodone last evening. however refused ambien despite asking for increase. Pt requesting to have magnesium changed to daily. Continues focused on people trying to harm her. 01/09: continue current tx plan. 01/10: increase abilify to 30 mg daily. check labs tonight. not as improved on current regimen as had been hoped. 01/11: tegretol 8.6 (5-12). increase tegretol to 300 BID. continues manic, paranoid delusions. 01/12: as for yesterday in presentation. c/o poor sleep, grogginess in morning. agrees to increase HS seroquel and DC trazodone. 01/13: slept better, thoughts slower, feels starting to improve. continue current mgmt. 01/14: poor sleep, asking for increased seroquel available at HS. paranoid delusions continue. incr HS seroquel PRNs. Reason for continued inpatient stay Substantial Risk for: inability to function and rapid decompensation Time Spent With Patient Time: Total time managing care of this patient today __25__ minutes.
[2024-01-15 20:00] VITALS: BP 123/62; PULSE 92; RESP 16; TEMP 36.4; O2SAT 96
[2024-01-15 21:18] LABS: Glucose, Whole Blood 128 mg/dL (60-115)
[2024-01-15] MEDS: ARIPiprazole 30 MG TABLET PO (21:19)
[2024-01-15] MEDS: QUEtiapine Fumarate 50 MG TABLET PO (21:20)
[2024-01-15] MEDS: Atorvastatin Calcium 40 MG TABLET PO (21:21)
[2024-01-16] MEDS: Ondansetron ODT 4 MG TAB.RAPDIS TRANSLINGU (03:51)
[2024-01-16] MEDS: QUEtiapine Fumarate 25 MG TABLET PO (04:56)
[2024-01-16] MEDS: Omeprazole 20 MG CAPSULE.DR PO (05:59)
[2024-01-16] MEDS: Thyroid,Pork 30 MG TABLET 120 MG PO (05:59)
[2024-01-16 06:03] VITALS: BP 135/78; PULSE 60; TEMP 36.4; O2SAT 98
[2024-01-16 07:40] VITALS: BP 131/59; PULSE 94; RESP 14; TEMP 36.8; O2SAT 93
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
[2024-01-16 07:59] LABS: Glucose, Whole Blood 104 mg/dL (60-115)
[2024-01-16] MEDS: Furosemide 20 MG TABLET PO (08:18)
[2024-01-16] MEDS: carBAMazepine ER 100 MG TAB.ER.12H 300 MG PO ×2 (08:19→21:17)
[2024-01-16] MEDS: Magnesium Oxide 400 MG TABLET PO (08:19)
[2024-01-16] MEDS: Cholecalciferol (Vitamin D3) 25 MCG TABLET 50 MCG PO (08:19)
[2024-01-16] MEDS: Apixaban 2.5 MG TABLET 7.5 MG PO ×2 (08:19→21:26)
[2024-01-16] MEDS: Metoprolol Succinate ER 25 MG TAB.ER.24H PO (08:19)
[2024-01-16] MEDS: Benztropine Mesylate 0.5 MG TABLET PO ×2 (08:19→21:18)
[2024-01-16] MEDS: polyethylene glycoL 3350 17 GM POWD.PACK PO (13:46)
[2024-01-16] MEDS: Milk of Magnesia 30 ML ORAL.SUSP PO (13:47)
[2024-01-16 20:00] VITALS: BP 129/67; PULSE 90; RESP 17; TEMP 36.8; O2SAT 94
[2024-01-16] MEDS: Flu Vacc TS2024-25(6mos up)/PF 0.5 ML SYRINGE IM (21:14)
[2024-01-16] MEDS: Atorvastatin Calcium 40 MG TABLET PO (21:18)
[2024-01-16] MEDS: ARIPiprazole 30 MG TABLET PO (21:18)
[2024-01-16] MEDS: QUEtiapine Fumarate 50 MG TABLET PO (21:19)
[2024-01-16] MEDS: traZODone HCL 50 MG TABLET PO (21:19)
[2024-01-16 21:42] LABS: Glucose, Whole Blood 120 mg/dL (60-115)
[2024-01-17] MEDS: QUEtiapine Fumarate 25 MG TABLET PO (04:17)
[2024-01-17] MEDS: Thyroid,Pork 30 MG TABLET 120 MG PO (05:33)
[2024-01-17] MEDS: Omeprazole 20 MG CAPSULE.DR PO (05:33)
[2024-01-17 08:00] VITALS: BP 130/57; PULSE 93; RESP 18; TEMP 36.8; O2SAT 93
[2024-01-17 08:02] LABS: Glucose, Whole Blood 105 mg/dL (60-115)
[2024-01-17] MEDS: Benztropine Mesylate 0.5 MG TABLET PO ×2 (08:43→20:28)
[2024-01-17] MEDS: Cholecalciferol (Vitamin D3) 25 MCG TABLET 50 MCG PO (08:43)
[2024-01-17] MEDS: Furosemide 20 MG TABLET PO (08:43)
[2024-01-17] MEDS: Apixaban 2.5 MG TABLET 7.5 MG PO ×2 (08:43→20:28)
[2024-01-17] MEDS: Metoprolol Succinate ER 25 MG TAB.ER.24H PO (08:43)
[2024-01-17] MEDS: carBAMazepine ER 100 MG TAB.ER.12H 300 MG PO ×2 (08:43→20:28)
[2024-01-17] MEDS: Magnesium Oxide 400 MG TABLET PO (08:44)
--- NOTE | 2024-01-17 10:18 | P.PNPSI_ITS ---
Subjective Subjective Date of Service: 01/17/24 Reason For Visit: Mood Disorder Subjective Notes: Conditional Voluntary Interim History: Adherent with medications. Seen in room. Pleasant with magazine writer. Sleep better with extra seroquel dose (total 75mg). Would like increase in schedueld dose. Remains hopeful for discharge this coming week. Not focused on past events or conspiracies. Medication Compliance: Yes Side effects from medications: No Attending Groups: Yes Review of Systems Review of Systems unremarkable Mental Status Exam Mental Status Exam Narrative: Pt is alert and oriented; behavior is calm,cooperative; dressed in casual attire; eye contact appropriate; Speech is normal rate, volume and not pressured; much less paranoid, less focus on conspiracies. no SI/HI/AVH expressed. Diagnostics Vital Signs (24Hr): Vital Signs - 24 hr 01/16/24 20:00 01/17/24 08:00 Temperature 98.2 F 98.3 F Pulse Rate 90 93 Respiratory Rate 17 18 Blood Pressure 129/67 130/57 L Pulse Oximetry 94 93 Oxygen Delivery Method Room Air Room Air BMI result Body Mass Index 35.6 Labs 01/11/24 20:20 01/11/24 20:20 Labs: Laboratory Results - last 48 hr 01/15/24 01/16/24 01/16/24 21:13 07:54 21:38 POC Glucose 128 H 104 120 H 01/17/24 07:58 POC Glucose 105 Medications Medications Current Medications Acetaminophen (Acetaminophen 325 Mg Tablet) 650 mg PO Q6H PRN PRN Reason: Headache/Pain Mild Scale (1-3) Last Admin: 01/11/24 03:28 Dose: 325 mg Al Hydroxide/Mg Hydroxide (Magnesium Hydrox/Alum Hydrox 30 Ml Oral.Susp) 30 ml PO Q6H PRN PRN Reason: Heartburn/Nausea Last Admin: 01/01/24 13:24 Dose: 30 ml Apixaban (Apixaban 2.5 Mg Tablet) 7.5 mg PO BID [facility] Last Admin: 01/17/24 08:43 Dose: 7.5 mg Aripiprazole (Aripiprazole 30 Mg Tablet) 30 mg PO BEDTIME [facility] Last Admin: 01/16/24 21:18 Dose: 30 mg Atorvastatin Calcium (Atorvastatin Calcium 40 Mg Tablet) 40 mg PO BEDTIME [facility] Last Admin: 01/16/24 21:18 Dose: 40 mg Benztropine Mesylate (Benztropine Mesylate 0.5 Mg Tablet) 0.5 mg PO BID [facility] Last Admin: 01/17/24 08:43 Dose: 0.5 mg Carbamazepine (Carbamazepine Er 100 Mg Tab.Er.12h) 300 mg PO BID [facility] Last Admin: 01/17/24 08:43 Dose: 300 mg Furosemide (Furosemide 20 Mg Tablet) 20 mg PO DAILY [facility]; Protocol Last Admin: 01/17/24 08:43 Dose: 20 mg Insulin Human Lispro (Insulin Lispro 100 Unit/Ml 3 Ml Vial) 0 unit SUBCUT BID [facility]; Protocol Last Admin: 01/17/24 08:46 Dose: Not Given Magnesium Hydroxide (Milk Of Magnesia 30 Ml Oral.Susp) 30 ml PO DAILY PRN PRN Reason: Constipation Last Admin: 01/16/24 13:47 Dose: 30 ml Magnesium Oxide (Magnesium Oxide 400 Mg Tablet) 400 mg PO DAILY [facility] Last Admin: 01/17/24 08:44 Dose: 400 mg Melatonin (Melatonin 3 Mg Tablet) 9 mg PO BEDTIME PRN PRN Reason: Insomnia Last Admin: 01/06/24 20:43 Dose: 9 mg Metoprolol Succinate (Metoprolol Succinate Er 25 Mg Tab.Er.24h) 25 mg PO DAILY [facility]; Protocol Last Admin: 01/17/24 08:43 Dose: 25 mg Nicotine Polacrilex (Nicotine Polacrilex 2 Mg Gum) 2 mg BUCCAL Q2H PRN PRN Reason: Nicotine Cravings Pt Own(Dulaglutide [ Trulicity] 1.5 Mg/0. 5 Ml Pen Injector) 1.5 mg SUBCUT Th [facility] Last Admin: 01/14/24 09:38 Dose: 1.5 mg Omeprazole (Omeprazole 20 Mg Capsule.Dr) 20 mg PO DAILY@0630 [facility] Last Admin: 01/17/24 05:33 Dose: 20 mg Ondansetron HCl (Ondansetron Odt 4 Mg Tab.Rapdis) 4 mg TRANSLINGU Q6H PRN PRN Reason: Nausea Last Admin: 01/16/24 03:51 Dose: 4 mg Polyethylene Glycol (Polyethylene Glycol 3350 17 Gm Powd.Pack) 17 gm PO DAILY PRN PRN Reason: Constipation Last Admin: 01/16/24 13:46 Dose: 17 gm Quetiapine Fumarate (Quetiapine Fumarate 25 Mg Tablet) 25 mg PO TID PRN PRN Reason: anxieety Last Admin: 01/17/24 04:17 Dose: 25 mg Quetiapine Fumarate (Quetiapine Fumarate 50 Mg Tablet) 50 mg PO BEDTIME [facility] Last Admin: 01/16/24 21:19 Dose: 50 mg Thyroid (Thyroid,Pork 30 Mg Tablet) 120 mg PO DAILY@0630 [facility] Last Admin: 01/17/24 05:33 Dose: 120 mg Trazodone HCl (Trazodone Hcl 50 Mg Tablet) 50 mg PO BEDTIME MRX1 PRN PRN Reason: insomnia Last Admin: 01/16/24 21:19 Dose: 50 mg Vitamin D (Cholecalciferol (Vitamin D3) 25 Mcg Tablet) 50 mcg PO DAILY [facility] Last Admin: 01/17/24 08:43 Dose: 50 mcg Allergies Allergies Allergy/AdvReac Type Severity Reaction Status Date / Time amoxicillin Allergy Unknown Unknown Uncoded 12/25/23 13:21 Pt states no food allergy Allergy Unknown Unknown Uncoded 12/25/23 13:21 Assessment & Plan Assessment & Plan (1) Bipolar affective disorder, manic, severe, with psychotic behavior: Status: Acute Code(s): F31.2 - Bipolar disorder, current episode manic severe with psychotic features Assessment and Plan: r/o schizoaffective bipolar type (2) PTSD (post-traumatic stress disorder): Status: Acute Code(s): F43.10 - Post-traumatic stress disorder, unspecified Plan 12/28: taper VPA and lamictal; start tegretol instead. do not restart caplyta; start abilify instead (had been on 20 mg in the past). ambien while hospitalized only for sleep. continue cogentin 0.5 BID and seroquel 25 TID PRN for now. continue porcine thyroid hormone. 12/29: DC lamictal entirely. increase abilify to 10 QHS. otherwise continue current mgmt. less verbose and voluble than yesterday. 12/30: increase tegretol to 200 BID, decrease VPA to 500 QHS. will discuss abilify versus vraylar with pt. grossly psychotic today. 12/31: DC VPA. declining vraylar, insisting on staying on abilify. becca slightly improved. 01/01: improved manic Sx. continue current mgmt. prefers to stay at abilify 10 for now. 01/02: remains mildly improved. increase abilify to 15 mg tonight. continue regimen otherwise. 01/03: increase abilify to 20 mg QHS. remains highly impaired, but mildly improved from earlier in stay. continue current mgmt otherwise. 01/04 continue tx. some paranoia present but accepting tx. 01/06: continue current tx plan. 01/07: continues paranoid about going home. Requesting increase in ambien. Ambien increased to 10mg PO bedtime. 01/08: Patient reports feeling good today; reports improved sleep with taking trazodone last evening. however refused ambien despite asking for increase. Pt requesting to have magnesium changed to daily. Continues focused on people trying to harm her. 01/09: continue current tx plan. 01/10: increase abilify to 30 mg daily. check labs tonight. not as improved on current regimen as had been hoped. 01/11: tegretol 8.6 (5-12). increase tegretol to 300 BID. continues manic, paranoid delusions. 01/12: as for yesterday in presentation. c/o poor sleep, grogginess in morning. agrees to increase HS seroquel and DC trazodone. 01/13: slept better, thoughts slower, feels starting to improve. continue current mgmt. 01/14: poor sleep, asking for increased seroquel available at HS. paranoid delusions continue. incr HS seroquel PRNs. 01/16/2024: No changes. Continue current regimen. 01/16: increase night time seroquel to 75mg scheduled Reason for continued inpatient stay Substantial Risk for: rapid decompensation Time Spent With Patient Time: Total time managing care of this patient today ____ minutes.
[2024-01-17] MEDS: polyethylene glycoL 3350 17 GM POWD.PACK PO (11:29)
[2024-01-17] MEDS: Milk of Magnesia 30 ML ORAL.SUSP PO (16:05)
[2024-01-17 20:00] VITALS: BP 128/64; PULSE 90; RESP 17; TEMP 36.7; O2SAT 98
[2024-01-17 20:25] LABS: Glucose, Whole Blood 127 mg/dL (60-115)
[2024-01-17] MEDS: QUEtiapine Fumarate 25 MG TABLET 75 MG PO (20:26)
[2024-01-17] MEDS: ARIPiprazole 30 MG TABLET PO (20:28)
[2024-01-17] MEDS: Atorvastatin Calcium 40 MG TABLET PO (20:28)
[2024-01-17] MEDS: traZODone HCL 50 MG TABLET PO (20:29)
[2024-01-17] MEDS: Ondansetron ODT 4 MG TAB.RAPDIS TRANSLINGU (20:33)
[2024-01-18] MEDS: QUEtiapine Fumarate 25 MG TABLET PO (03:46)
[2024-01-18] MEDS: Thyroid,Pork 30 MG TABLET 120 MG PO (06:29)
[2024-01-18] MEDS: Omeprazole 20 MG CAPSULE.DR PO (06:30)
[2024-01-18] MEDS: Sodium Phosphate,Mono-Dibasic 133 ML ENEMA PR (06:30)
[2024-01-18 07:40] LABS: Glucose, Whole Blood 111 mg/dL (60-115)
[2024-01-18 08:00] VITALS: BP 129/58; PULSE 96; RESP 14; TEMP 36.4; O2SAT 98
[2024-01-18] MEDS: Furosemide 20 MG TABLET PO (08:38)
[2024-01-18] MEDS: carBAMazepine ER 100 MG TAB.ER.12H 300 MG PO ×2 (08:38→22:04)
[2024-01-18] MEDS: Benztropine Mesylate 0.5 MG TABLET PO ×2 (08:38→22:06)
[2024-01-18] MEDS: Magnesium Oxide 400 MG TABLET PO (08:38)
[2024-01-18] MEDS: Apixaban 2.5 MG TABLET 7.5 MG PO ×2 (08:38→22:09)
[2024-01-18] MEDS: Cholecalciferol (Vitamin D3) 25 MCG TABLET 50 MCG PO (08:38)
[2024-01-18 08:39] VITALS: BP 129/58; PULSE 96
[2024-01-18] MEDS: Metoprolol Succinate ER 25 MG TAB.ER.24H PO (08:39)
--- NOTE | 2024-01-18 14:48 | P.PNPSI_ITS ---
Subjective Subjective Date of Service: 01/18/24 Reason For Visit: Mood Disorder Interim History: asking about tyrosine, ADRYAN, and cortisol surgery manager for sleep; she has used them all outpt with some help. reports she is feeling hypomanic, improved from admission. amenable to check labs tomorrow night and adjust medications accordingly. per staff, pleasant, almost overly friendly. anxious, flat, med-compliant. slept about 6 hours. Mental Status Exam Mental Status Exam Narrative: Pt is alert and oriented; behavior is calm,cooperative; dressed in casual attire; eye contact appropriate; Speech is normal rate, volume and not pressured; less voluble, less paranoid, less focus on conspiracies. no SI/HI/AVH expressed. Diagnostics Vital Signs (24Hr): Vital Signs - 24 hr 01/17/24 20:00 01/18/24 08:00 01/18/24 08:39 Temperature 98.0 F 97.6 F Pulse Rate 90 96 96 Respiratory Rate 17 14 Blood Pressure 128/64 129/58 L 129/58 L Pulse Oximetry 98 98 Oxygen Delivery Method Room Air Room Air BMI result Body Mass Index 35.6 Labs 01/11/24 20:20 01/11/24 20:20 Labs: Laboratory Results - last 48 hr 01/16/24 01/17/24 01/17/24 21:38 07:58 20:19 POC Glucose 120 H 105 127 H 01/18/24 07:33 POC Glucose 111 Medications Medications Current Medications Acetaminophen (Acetaminophen 325 Mg Tablet) 650 mg PO Q6H PRN PRN Reason: Headache/Pain Mild Scale (1-3) Last Admin: 01/11/24 03:28 Dose: 325 mg Al Hydroxide/Mg Hydroxide (Magnesium Hydrox/Alum Hydrox 30 Ml Oral.Susp) 30 ml PO Q6H PRN PRN Reason: Heartburn/Nausea Last Admin: 01/01/24 13:24 Dose: 30 ml Apixaban (Apixaban 2.5 Mg Tablet) 7.5 mg PO BID [facility] Last Admin: 01/18/24 08:38 Dose: 7.5 mg Aripiprazole (Aripiprazole 30 Mg Tablet) 30 mg PO BEDTIME [facility] Last Admin: 01/17/24 20:28 Dose: 30 mg Atorvastatin Calcium (Atorvastatin Calcium 40 Mg Tablet) 40 mg PO BEDTIME [facility] Last Admin: 01/17/24 20:28 Dose: 40 mg Benztropine Mesylate (Benztropine Mesylate 0.5 Mg Tablet) 0.5 mg PO BID [facility] Last Admin: 01/18/24 08:38 Dose: 0.5 mg Carbamazepine (Carbamazepine Er 100 Mg Tab.Er.12h) 300 mg PO BID [facility] Last Admin: 01/18/24 08:38 Dose: 300 mg Furosemide (Furosemide 20 Mg Tablet) 20 mg PO DAILY [facility]; Protocol Last Admin: 01/18/24 08:38 Dose: 20 mg Insulin Human Lispro (Insulin Lispro 100 Unit/Ml 3 Ml Vial) 0 unit SUBCUT BID [facility]; Protocol Last Admin: 01/18/24 09:02 Dose: Not Given Magnesium Hydroxide (Milk Of Magnesia 30 Ml Oral.Susp) 30 ml PO DAILY PRN PRN Reason: Constipation Last Admin: 01/17/24 16:05 Dose: 30 ml Magnesium Oxide (Magnesium Oxide 400 Mg Tablet) 400 mg PO DAILY [facility] Last Admin: 01/18/24 08:38 Dose: 400 mg Melatonin (Melatonin 3 Mg Tablet) 9 mg PO BEDTIME PRN PRN Reason: Insomnia Last Admin: 01/06/24 20:43 Dose: 9 mg Metoprolol Succinate (Metoprolol Succinate Er 25 Mg Tab.Er.24h) 25 mg PO DAILY [facility]; Protocol Last Admin: 01/18/24 08:39 Dose: 25 mg Nicotine Polacrilex (Nicotine Polacrilex 2 Mg Gum) 2 mg BUCCAL Q2H PRN PRN Reason: Nicotine Cravings Pt Own(Dulaglutide [ Trulicity] 1.5 Mg/0. 5 Ml Pen Injector) 1.5 mg SUBCUT Th [facility] Last Admin: 01/14/24 09:38 Dose: 1.5 mg Omeprazole (Omeprazole 20 Mg Capsule.Dr) 20 mg PO DAILY@0630 [facility] Last Admin: 01/18/24 06:30 Dose: 20 mg Ondansetron HCl (Ondansetron Odt 4 Mg Tab.Rapdis) 4 mg TRANSLINGU Q6H PRN PRN Reason: Nausea Last Admin: 01/17/24 20:33 Dose: 4 mg Polyethylene Glycol (Polyethylene Glycol 3350 17 Gm Powd.Pack) 17 gm PO DAILY PRN PRN Reason: Constipation Last Admin: 01/17/24 11:29 Dose: 17 gm Quetiapine Fumarate (Quetiapine Fumarate 25 Mg Tablet) 25 mg PO TID PRN PRN Reason: anxieety Last Admin: 01/18/24 03:46 Dose: 25 mg Quetiapine Fumarate (Quetiapine Fumarate 25 Mg Tablet) 75 mg PO BEDTIME [facility] Last Admin: 01/17/24 20:26 Dose: 75 mg Sodium Biphosphate/Sodium Phosphate (Sodium Phosphate,Hall-Dibasic 133 Ml Enema) 133 ml [place] ONCE PRN PRN Reason: Constipation Last Admin: 01/18/24 06:30 Dose: 133 ml Thyroid (Thyroid,Pork 30 Mg Tablet) 120 mg PO DAILY@0630 [facility] Last Admin: 01/18/24 06:29 Dose: 120 mg Trazodone HCl (Trazodone Hcl 50 Mg Tablet) 50 mg PO BEDTIME MRX1 PRN PRN Reason: insomnia Last Admin: 01/17/24 20:29 Dose: 50 mg Vitamin D (Cholecalciferol (Vitamin D3) 25 Mcg Tablet) 50 mcg PO DAILY [facility] Last Admin: 01/18/24 08:38 Dose: 50 mcg Allergies Allergies Allergy/AdvReac Type Severity Reaction Status Date / Time amoxicillin Allergy Unknown Unknown Uncoded 12/25/23 13:21 Pt states no food allergy Allergy Unknown Unknown Uncoded 12/25/23 13:21 Assessment & Plan Assessment & Plan (1) Bipolar affective disorder, manic, severe, with psychotic behavior: Status: Acute Code(s): F31.2 - Bipolar disorder, current episode manic severe with psychotic features Assessment and Plan: r/o schizoaffective bipolar type (2) PTSD (post-traumatic stress disorder): Status: Acute Code(s): F43.10 - Post-traumatic stress disorder, unspecified Plan 12/28: taper VPA and lamictal; start tegretol instead. do not restart caplyta; start abilify instead (had been on 20 mg in the past). ambien while hospitalized only for sleep. continue cogentin 0.5 BID and seroquel 25 TID PRN for now. continue porcine thyroid hormone. 12/29: DC lamictal entirely. increase abilify to 10 QHS. otherwise continue current mgmt. less verbose and voluble than yesterday. 12/30: increase tegretol to 200 BID, decrease VPA to 500 QHS. will discuss abilify versus vraylar with pt. grossly psychotic today. 12/31: DC VPA. declining vraylar, insisting on staying on abilify. becca slightly improved. 01/01: improved manic Sx. continue current mgmt. prefers to stay at abilify 10 for now. 01/02: remains mildly improved. increase abilify to 15 mg tonight. continue regimen otherwise. 01/03: increase abilify to 20 mg QHS. remains highly impaired, but mildly improved from earlier in stay. continue current mgmt otherwise. 01/04 continue tx. some paranoia present but accepting tx. 01/06: continue current tx plan. 01/07: continues paranoid about going home. Requesting increase in ambien. Ambien increased to 10mg PO bedtime. 01/08: Patient reports feeling good today; reports improved sleep with taking trazodone last evening. however refused ambien despite asking for increase. Pt requesting to have magnesium changed to daily. Continues focused on people trying to harm her. 01/09: continue current tx plan. 01/10: increase abilify to 30 mg daily. check labs tonight. not as improved on current regimen as had been hoped. 01/11: tegretol 8.6 (5-12). increase tegretol to 300 BID. continues manic, paranoid delusions. 01/12: as for yesterday in presentation. c/o poor sleep, grogginess in morning. agrees to increase HS seroquel and DC trazodone. 01/13: slept better, thoughts slower, feels starting to improve. continue current mgmt. 01/14: poor sleep, asking for increased seroquel available at HS. paranoid delusions continue. incr HS seroquel PRNs. 01/16/2024: No changes. Continue current regimen. 01/16: increase night time seroquel to 75mg scheduled 01/17: continue current mgmt. remains gradually improving. check labs tomorrow night. Reason for continued inpatient stay Substantial Risk for: inability to function and rapid decompensation Time Spent With Patient Time: Total time managing care of this patient today __25__ minutes.
[2024-01-18 19:48] LABS: Glucose, Whole Blood 123 mg/dL (60-115)
[2024-01-18 20:00] VITALS: BP 119/64; PULSE 97; RESP 16; TEMP 36.9; O2SAT 93
[2024-01-18] MEDS: Atorvastatin Calcium 40 MG TABLET PO (22:06)
[2024-01-18] MEDS: QUEtiapine Fumarate 25 MG TABLET 75 MG PO (22:07)
[2024-01-18] MEDS: ARIPiprazole 30 MG TABLET PO (22:10)
[2024-01-19] MEDS: Omeprazole 20 MG CAPSULE.DR PO (06:11)
[2024-01-19] MEDS: Thyroid,Pork 30 MG TABLET 120 MG PO (06:11)
[2024-01-19 08:00] VITALS: BP 151/72; PULSE 98; RESP 14; TEMP 36.8; O2SAT 92
[2024-01-19 08:20] LABS: Glucose, Whole Blood 152 mg/dL (60-115)
[2024-01-19] MEDS: Cholecalciferol (Vitamin D3) 25 MCG TABLET 50 MCG PO (08:44)
[2024-01-19] MEDS: carBAMazepine ER 100 MG TAB.ER.12H 300 MG PO ×2 (08:44→21:13)
[2024-01-19] MEDS: Apixaban 2.5 MG TABLET 7.5 MG PO ×2 (08:44→21:13)
[2024-01-19 08:45] VITALS: BP 151/72; PULSE 98
[2024-01-19] MEDS: Metoprolol Succinate ER 25 MG TAB.ER.24H PO (08:45)
[2024-01-19] MEDS: Magnesium Oxide 400 MG TABLET PO (08:45)
[2024-01-19] MEDS: Benztropine Mesylate 0.5 MG TABLET PO ×2 (08:45→21:13)
[2024-01-19] MEDS: Furosemide 20 MG TABLET PO (08:45)
[2024-01-19] MEDS: polyethylene glycoL 3350 17 GM POWD.PACK PO (12:48)
[2024-01-19] MEDS: Milk of Magnesia 30 ML ORAL.SUSP PO (12:48)
[2024-01-19] MEDS: QUEtiapine Fumarate 25 MG TABLET PO (13:33)
--- NOTE | 2024-01-19 16:09 | HO.PSYCHPN ---
Subjective Subjective Date of Service: 01/19/24 Reason For Visit: Mood Disorder Interim History: paranoid, delusional, hyperverbal. slept well last night for the first time. dissuaded from leaving tomorrow. aware of labs tonight and need to review results in the morning. per staff, paranoid, delusional. refused abilify saying it's not working, then agreed to take it. appears to be sleeping. Mental Status Exam Mental Status Exam Narrative: Pt is alert and oriented; behavior is calm,cooperative; dressed in casual attire; eye contact appropriate; Speech is normal rate, volume and not pressured; less voluble. paranoid, conspiracies. no SI/HI/AVH expressed. Diagnostics Vital Signs (24Hr): Vital Signs - 24 hr 01/18/24 20:00 01/19/24 08:00 01/19/24 08:45 Temperature 98.4 F 98.3 F Pulse Rate 97 98 98 Respiratory Rate 16 14 Blood Pressure 119/64 151/72 H 151/72 H Pulse Oximetry 93 92 Oxygen Delivery Method Room Air Room Air BMI result Body Mass Index 35.6 Labs 01/11/24 20:20 01/11/24 20:20 Labs: Laboratory Results - last 48 hr 01/17/24 01/18/24 01/18/24 20:19 07:33 19:43 POC Glucose 127 H 111 123 H 01/19/24 08:16 POC Glucose 152 H Medications Medications Current Medications Acetaminophen (Acetaminophen 325 Mg Tablet) 650 mg PO Q6H PRN PRN Reason: Headache/Pain Mild Scale (1-3) Last Admin: 01/11/24 03:28 Dose: 325 mg Al Hydroxide/Mg Hydroxide (Magnesium Hydrox/Alum Hydrox 30 Ml Oral.Susp) 30 ml PO Q6H PRN PRN Reason: Heartburn/Nausea Last Admin: 01/01/24 13:24 Dose: 30 ml Apixaban (Apixaban 2.5 Mg Tablet) 7.5 mg PO BID BERNARDA Last Admin: 01/19/24 08:44 Dose: 7.5 mg Aripiprazole (Aripiprazole 30 Mg Tablet) 30 mg PO BEDTIME BERNARDA Last Admin: 01/18/24 22:10 Dose: 30 mg Atorvastatin Calcium (Atorvastatin Calcium 40 Mg Tablet) 40 mg PO BEDTIME [facility]ERNAR[facility] Last Admin: 01/18/24 22:06 Dose: 40 mg Benztropine Mesylate (Benztropine Mesylate 0.5 Mg Tablet) 0.5 mg PO BID [facility] Last Admin: 01/19/24 08:45 Dose: 0.5 mg Carbamazepine (Carbamazepine Er 100 Mg Tab.Er.12h) 300 mg PO BID [facility] Last Admin: 01/19/24 08:44 Dose: 300 mg Furosemide (Furosemide 20 Mg Tablet) 20 mg PO DAILY [facility]; Protocol Last Admin: 01/19/24 08:45 Dose: 20 mg Insulin Human Lispro (Insulin Lispro 100 Unit/Ml 3 Ml Vial) 0 unit SUBCUT BID [facility]; Protocol Last Admin: 01/19/24 08:45 Dose: Not Given Magnesium Hydroxide (Milk Of Magnesia 30 Ml Oral.Susp) 30 ml PO DAILY PRN PRN Reason: Constipation Last Admin: 01/19/24 12:48 Dose: 30 ml Magnesium Oxide (Magnesium Oxide 400 Mg Tablet) 400 mg PO DAILY [facility] Last Admin: 01/19/24 08:45 Dose: 400 mg Melatonin (Melatonin 3 Mg Tablet) 9 mg PO BEDTIME PRN PRN Reason: Insomnia Last Admin: 01/06/24 20:43 Dose: 9 mg Metoprolol Succinate (Metoprolol Succinate Er 25 Mg Tab.Er.24h) 25 mg PO DAILY [facility]; Protocol Last Admin: 01/19/24 08:45 Dose: 25 mg Nicotine Polacrilex (Nicotine Polacrilex 2 Mg Gum) 2 mg BUCCAL Q2H PRN PRN Reason: Nicotine Cravings Pt Own(Dulaglutide [ Trulicity] 1.5 Mg/0. 5 Ml Pen Injector) 1.5 mg SUBCUT Th [facility] Last Admin: 01/14/24 09:38 Dose: 1.5 mg Omeprazole (Omeprazole 20 Mg Capsule.Dr) 20 mg PO DAILY@0630 [facility] Last Admin: 01/19/24 06:11 Dose: 20 mg Ondansetron HCl (Ondansetron Odt 4 Mg Tab.Rapdis) 4 mg TRANSLINGU Q6H PRN PRN Reason: Nausea Last Admin: 01/17/24 20:33 Dose: 4 mg Polyethylene Glycol (Polyethylene Glycol 3350 17 Gm Powd.Pack) 17 gm PO DAILY PRN PRN Reason: Constipation Last Admin: 01/19/24 12:48 Dose: 17 gm Quetiapine Fumarate (Quetiapine Fumarate 25 Mg Tablet) 25 mg PO TID PRN PRN Reason: anxieety Last Admin: 01/19/24 13:33 Dose: 25 mg Quetiapine Fumarate (Quetiapine Fumarate 25 Mg Tablet) 75 mg PO BEDTIME BERNARDA Last Admin: 01/18/24 22:07 Dose: 75 mg Sodium Biphosphate/Sodium Phosphate (Sodium Phosphate,[place]-Dibasic 133 Ml Enema) 133 ml [place] ONCE PRN PRN Reason: Constipation Last Admin: 01/18/24 06:30 Dose: 133 ml Thyroid (Thyroid,Pork 30 Mg Tablet) 120 mg PO DAILY@0630 [facility] Last Admin: 01/19/24 06:11 Dose: 120 mg Trazodone HCl (Trazodone Hcl 50 Mg Tablet) 50 mg PO BEDTIME MRX1 PRN PRN Reason: insomnia Last Admin: 01/17/24 20:29 Dose: 50 mg Vitamin D (Cholecalciferol (Vitamin D3) 25 Mcg Tablet) 50 mcg PO DAILY [facility] Last Admin: 01/19/24 08:44 Dose: 50 mcg Allergies Allergies Allergy/AdvReac Type Severity Reaction Status Date / Time amoxicillin Allergy Unknown Unknown Uncoded 12/25/23 13:21 Pt states no food allergy Allergy Unknown Unknown Uncoded 12/25/23 13:21 Assessment & Plan Assessment & Plan (1) Bipolar affective disorder, manic, severe, with psychotic behavior: Status: Acute Code(s): F31.2 - Bipolar disorder, current episode manic severe with psychotic features Assessment and Plan: r/o schizoaffective bipolar type (2) PTSD (post-traumatic stress disorder): Status: Acute Code(s): F43.10 - Post-traumatic stress disorder, unspecified Plan 12/28: taper VPA and lamictal; start tegretol instead. do not restart caplyta; start abilify instead (had been on 20 mg in the past). ambien while hospitalized only for sleep. continue cogentin 0.5 BID and seroquel 25 TID PRN for now. continue porcine thyroid hormone. 12/29: DC lamictal entirely. increase abilify to 10 QHS. otherwise continue current mgmt. less verbose and voluble than yesterday. 12/30: increase tegretol to 200 BID, decrease VPA to 500 QHS. will discuss abilify versus vraylar with pt. grossly psychotic today. 12/31: DC VPA. declining vraylar, insisting on staying on abilify. becca slightly improved. 01/01: improved manic Sx. continue current mgmt. prefers to stay at abilify 10 for now. 01/02: remains mildly improved. increase abilify to 15 mg tonight. continue regimen otherwise. 01/03: increase abilify to 20 mg QHS. remains highly impaired, but mildly improved from earlier in stay. continue current mgmt otherwise. 01/04 continue tx. some paranoia present but accepting tx. 01/06: continue current tx plan. 01/07: continues paranoid about going home. Requesting increase in ambien. Ambien increased to 10mg PO bedtime. 01/08: Patient reports feeling good today; reports improved sleep with taking trazodone last evening. however refused ambien despite asking for increase. Pt requesting to have magnesium changed to daily. Continues focused on people trying to harm her. 01/09: continue current tx plan. 01/10: increase abilify to 30 mg daily. check labs tonight. not as improved on current regimen as had been hoped. 01/11: tegretol 8.6 (5-12). increase tegretol to 300 BID. continues manic, paranoid delusions. 01/12: as for yesterday in presentation. c/o poor sleep, grogginess in morning. agrees to increase HS seroquel and DC trazodone. 01/13: slept better, thoughts slower, feels starting to improve. continue current mgmt. 01/14: poor sleep, asking for increased seroquel available at HS. paranoid delusions continue. incr HS seroquel PRNs. 01/16/2024: No changes. Continue current regimen. 01/16: increase night time seroquel to 75mg scheduled 01/17: continue current mgmt. remains gradually improving. check labs tomorrow night. 01/18: inconsistent day to day. today more paranoid and delusional content. check labs tonight, if historical dosing is any guide will likely increase tegretol tomorrow. reports having slept well last night for the first time since admission. Reason for continued inpatient stay Substantial Risk for: inability to function and rapid decompensation Time Spent With Patient Time: Total time managing care of this patient today __25__ minutes.
[2024-01-19 20:00] VITALS: BP 106/75; PULSE 87; RESP 18; TEMP 37.1; O2SAT 92
[2024-01-19 20:30] LABS: MANUAL DIFF FLAG NO
[2024-01-19 20:33] LABS: Basophils Percent Auto 0.2 % (0-2); Eosinophils Absolute Auto 0.2 X10*3/uL (0.0-0.4); Eosinophils Percent Auto 1.3 % (0-4); Hematocrit 38.4 % (37.0-47.0); Hemoglobin 12.8 g/dl (12.0-16.0); Imm Gran Abs Auto 0.05 X10*3/uL (0.00-0.03); Imm Gran Pct Auto 0.4 % (0.0-0.4); Lymphocytes Absolute Auto 4.9 X10*3/uL (1.2-4.9); Lymphocytes Percent Auto 39.8 % (20-40); Mean Corpuscular HGB Conc 33.3 g/dl (31.0-35.0); Mean Corpuscular Hemoglobin 31.9 pg (27.0-33.0); Mean Corpuscular Volume 95.8 fL (80.0-98.0); Mean Platelet Volume 10.3 fL (9.4-12.3); Monocytes Absolute Auto 0.9 X10*3/uL (0.1-1.2); Monocytes Percent Auto 7.6 % (2-11); NRBC Pct Auto 0.3 /100WBC (0.0-0.2); Neutrophils Absolute Auto 6.2 x10*3/uL (2.0-8.3); Neutrophils Percent Auto 50.7 % (45-73); Platelet Count 198 X10*3/uL (160-400); Red Blood Count 4.01 X10*6/uL (4.20-5.50); Red Cell Distribution Width 14.2 % (11.0-16.0); White Blood Count 12.2 X10*3/uL (4.8-10.8)
[2024-01-19 20:50] LABS: Alanine Aminotransferase 26 U/L (0-31); Albumin Level 4.4 g/dL (3.5-5.0); Alkaline Phosphatase 90 U/L (39-117); Anion Gap 16 (12-20); Aspartate Amino Transferase 21 U/L (5-31); Bilirubin Direct 0.1 mg/dL (0.0-0.5); Bilirubin Total 0.3 mg/dL (0.0-1.0); Blood Urea Nitrogen 22 mg/dL (9-16); Calcium 9.8 mg/dL (8.4-10.2); Carbon Dioxide 32 mmol/L (22-29); Chloride 98 mmol/L (96-108); Creatinine Clr Calc Pharmacy 81.4; Estimated Glomerular Filt Rate > 60; Glucose Random 106 mg/dL (60-115); Potassium 4.9 mmol/L (3.3-5.1); Sodium 141 mmol/L (135-145); Total Protein 7.6 g/dL (6.5-8.0)
[2024-01-19 20:51] LABS: Carbamazepine Tegretol 9.1 mcg/mL (5.0-12.0)
[2024-01-19 21:13] LABS: Glucose, Whole Blood 124 mg/dL (60-115)
[2024-01-19] MEDS: Atorvastatin Calcium 40 MG TABLET PO (21:13)
[2024-01-19] MEDS: QUEtiapine Fumarate 25 MG TABLET 75 MG PO (21:13)
[2024-01-19] MEDS: ARIPiprazole 30 MG TABLET PO (21:13)
[2024-01-20] MEDS: QUEtiapine Fumarate 25 MG TABLET PO (03:47)
[2024-01-20] MEDS: Thyroid,Pork 30 MG TABLET 120 MG PO (06:21)
[2024-01-20] MEDS: Omeprazole 20 MG CAPSULE.DR PO (06:58)
[2024-01-20 07:52] LABS: Glucose, Whole Blood 100 mg/dL (60-115)
[2024-01-20 08:00] VITALS: BP 132/63; PULSE 79; RESP 16; TEMP 36.8; O2SAT 97
[2024-01-20] MEDS: Magnesium Oxide 400 MG TABLET PO (08:44)
[2024-01-20] MEDS: carBAMazepine ER 100 MG TAB.ER.12H 300 MG PO (08:44)
[2024-01-20] MEDS: Apixaban 2.5 MG TABLET 7.5 MG PO ×2 (08:44→21:58)
[2024-01-20] MEDS: Benztropine Mesylate 0.5 MG TABLET PO ×2 (08:44→21:58)
[2024-01-20] MEDS: Metoprolol Succinate ER 25 MG TAB.ER.24H PO (08:45)
[2024-01-20] MEDS: Furosemide 20 MG TABLET PO (08:45)
[2024-01-20] MEDS: Cholecalciferol (Vitamin D3) 25 MCG TABLET 50 MCG PO (08:45)
[2024-01-20] MEDS: carBAMazepine ER 100 MG TAB.ER.12H PO (11:51)
--- NOTE | 2024-01-20 15:35 | PC.NURSE ---
Pt signed a 3 day 01/19, up Wednesday 01/24
--- NOTE | 2024-01-20 16:23 | P.PNPSI_ITS ---
Subjective Subjective Date of Service: 01/20/24 Reason For Visit: Mood Disorder Interim History: hyperverbal, paranoid delusions. nevertheless, quite pleasant. labs reviewed, increase tegretol to 400 BID. per staff, seroquel PRN to good effect. delusional. dancing, hypersexual. Mental Status Exam Mental Status Exam Narrative: Pt is alert and oriented; behavior is calm, cooperative; dressed in casual attire; eye contact appropriate; Speech is normal rate, volume and not pressured; less voluble. paranoid, conspiracies. no SI/HI/AVH expressed. Diagnostics Vital Signs (24Hr): Vital Signs - 24 hr 01/19/24 20:00 01/20/24 08:00 Temperature 98.7 F 98.2 F Pulse Rate 87 79 Respiratory Rate 18 16 Blood Pressure 106/75 132/63 Pulse Oximetry 92 97 Oxygen Delivery Method Room Air Room Air BMI result Body Mass Index 35.6 Labs 01/19/24 20:24 01/19/24 20:23 Labs: Laboratory Results - last 48 hr 01/18/24 01/19/24 01/19/24 19:43 08:16 20:23 WBC RBC Hgb Hct MCV MCH MCHC RDW Plt Count MPV Immature Gran % (Auto) Neut % (Auto) Lymph % (Auto) [place] % (Auto) Eos % (Auto) Baso % (Auto) Lymph # (Auto) [place] # (Auto) Eos # (Auto) Baso # (Auto) Abs Immat Gran (auto) Absolute Neuts (auto) Absolute Nucleated RBC Nucleated RBC % (auto) Sodium 141 Potassium 4.9 Chloride 98 Carbon Dioxide 32 H Anion Gap 16 BUN 22 H Creatinine 0.85 Estim Creat Clear Calc 81.4 Estimated GFR > 60 POC Glucose 123 H 152 H Random Glucose 106 Calcium 9.8 Total Bilirubin 0.3 Direct Bilirubin 0.1 AST 21 ALT 26 Alkaline Phosphatase 90 Total Protein 7.6 Albumin 4.4 Carbamazepine 01/19/24 01/19/24 01/20/24 20:24 21:08 07:47 WBC 12.2 H RBC 4.01 L Hgb 12.8 Hct 38.4 MCV 95.8 MCH 31.9 MCHC 33.3 RDW 14.2 Plt Count 198 MPV 10.3 Immature Gran % (Auto) 0.4 Neut % (Auto) 50.7 Lymph % (Auto) 39.8 [place] % (Auto) 7.6 Eos % (Auto) 1.3 Baso % (Auto) 0.2 Lymph # (Auto) 4.9 [place] # (Auto) 0.9 Eos # (Auto) 0.2 Baso # (Auto) 0.0 Abs Immat Gran (auto) 0.05 H Absolute Neuts (auto) 6.2 Absolute Nucleated RBC 0.040 H Nucleated RBC % (auto) 0.3 H Sodium Potassium Chloride Carbon Dioxide Anion Gap BUN Creatinine Estim Creat Clear Calc Estimated GFR POC Glucose 124 H 100 Random Glucose Calcium Total Bilirubin Direct Bilirubin AST ALT Alkaline Phosphatase Total Protein Albumin Carbamazepine 9.1 Medications Medications Current Medications Acetaminophen (Acetaminophen 325 Mg Tablet) 650 mg PO Q6H PRN PRN Reason: Headache/Pain Mild Scale (1-3) Last Admin: 01/11/24 03:28 Dose: 325 mg Al Hydroxide/Mg Hydroxide (Magnesium Hydrox/Alum Hydrox 30 Ml Oral.Susp) 30 ml PO Q6H PRN PRN Reason: Heartburn/Nausea Last Admin: 01/01/24 13:24 Dose: 30 ml Apixaban (Apixaban 2.5 Mg Tablet) 7.5 mg PO BID [facility] Last Admin: 01/20/24 08:44 Dose: 7.5 mg Aripiprazole (Aripiprazole 30 Mg Tablet) 30 mg PO BEDTIME [facility] Last Admin: 01/19/24 21:13 Dose: 30 mg Atorvastatin Calcium (Atorvastatin Calcium 40 Mg Tablet) 40 mg PO BEDTIME [facility] Last Admin: 01/19/24 21:13 Dose: 40 mg Benztropine Mesylate (Benztropine Mesylate 0.5 Mg Tablet) 0.5 mg PO BID [facility] Last Admin: 01/20/24 08:44 Dose: 0.5 mg Carbamazepine (Carbamazepine Er 200 Mg Tab.Er.12h) 400 mg PO BID [facility] Furosemide (Furosemide 20 Mg Tablet) 20 mg PO DAILY [facility]; Protocol Last Admin: 01/20/24 08:45 Dose: 20 mg Insulin Human Lispro (Insulin Lispro 100 Unit/Ml 3 Ml Vial) 0 unit SUBCUT BID [facility]; Protocol Last Admin: 01/20/24 08:48 Dose: Not Given Magnesium Hydroxide (Milk Of Magnesia 30 Ml Oral.Susp) 30 ml PO DAILY PRN PRN Reason: Constipation Last Admin: 01/19/24 12:48 Dose: 30 ml Magnesium Oxide (Magnesium Oxide 400 Mg Tablet) 400 mg PO DAILY [facility] Last Admin: 01/20/24 08:44 Dose: 400 mg Melatonin (Melatonin 3 Mg Tablet) 9 mg PO BEDTIME PRN PRN Reason: Insomnia Last Admin: 01/06/24 20:43 Dose: 9 mg Metoprolol Succinate (Metoprolol Succinate Er 25 Mg Tab.Er.24h) 25 mg PO DAILY [facility]; Protocol Last Admin: 01/20/24 08:45 Dose: 25 mg Nicotine Polacrilex (Nicotine Polacrilex 2 Mg Gum) 2 mg BUCCAL Q2H PRN PRN Reason: Nicotine Cravings Pt Own(Dulaglutide [ Trulicity] 1.5 Mg/0. 5 Ml Pen Injector) 1.5 mg SUBCUT Th [facility] Last Admin: 01/14/24 09:38 Dose: 1.5 mg Omeprazole (Omeprazole 20 Mg Capsule.Dr) 20 mg PO DAILY@06 [facility] Last Admin: 01/20/24 06:58 Dose: 20 mg Ondansetron HCl (Ondansetron Odt 4 Mg Tab.Rapdis) 4 mg TRANSLINGU Q6H PRN PRN Reason: Nausea Last Admin: 01/17/24 20:33 Dose: 4 mg Polyethylene Glycol (Polyethylene Glycol 3350 17 Gm Powd.Pack) 17 gm PO DAILY PRN PRN Reason: Constipation Last Admin: 01/19/24 12:48 Dose: 17 gm Quetiapine Fumarate (Quetiapine Fumarate 25 Mg Tablet) 25 mg PO TID PRN PRN Reason: anxieety Last Admin: 01/20/24 03:47 Dose: 25 mg Quetiapine Fumarate (Quetiapine Fumarate 25 Mg Tablet) 75 mg PO BEDTIME [facility] Last Admin: 01/19/24 21:13 Dose: 75 mg Sodium Biphosphate/Sodium Phosphate (Sodium Phosphate,[place]-Dibasic 133 Ml Enema) 133 ml [place] ONCE PRN PRN Reason: Constipation Last Admin: 01/18/24 06:30 Dose: 133 ml Thyroid (Thyroid,Pork 30 Mg Tablet) 120 mg PO DAILY@0630 [facility] Last Admin: 01/20/24 06:21 Dose: 120 mg Trazodone HCl (Trazodone Hcl 50 Mg Tablet) 50 mg PO BEDTIME MRX1 PRN PRN Reason: insomnia Last Admin: 01/17/24 20:29 Dose: 50 mg Vitamin D (Cholecalciferol (Vitamin D3) 25 Mcg Tablet) 50 mcg PO DAILY [facility] Last Admin: 01/20/24 08:45 Dose: 50 mcg Allergies Allergies Allergy/AdvReac Type Severity Reaction Status Date / Time amoxicillin Allergy Unknown Unknown Uncoded 12/25/23 13:21 Pt states no food allergy Allergy Unknown Unknown Uncoded 12/25/23 13:21 Assessment & Plan Assessment & Plan (1) Bipolar affective disorder, manic, severe, with psychotic behavior: Status: Acute Code(s): F31.2 - Bipolar disorder, current episode manic severe with psychotic features Assessment and Plan: r/o schizoaffective bipolar type (2) PTSD (post-traumatic stress disorder): Status: Acute Code(s): F43.10 - Post-traumatic stress disorder, unspecified Plan 12/28: taper VPA and lamictal; start tegretol instead. do not restart caplyta; start abilify instead (had been on 20 mg in the past). ambien while hospitalized only for sleep. continue cogentin 0.5 BID and seroquel 25 TID PRN for now. continue porcine thyroid hormone. 12/29: DC lamictal entirely. increase abilify to 10 QHS. otherwise continue current mgmt. less verbose and voluble than yesterday. 12/30: increase tegretol to 200 BID, decrease VPA to 500 QHS. will discuss abilify versus vraylar with pt. grossly psychotic today. 12/31: DC VPA. declining vraylar, insisting on staying on abilify. becca slightly improved. 01/01: improved manic Sx. continue current mgmt. prefers to stay at abilify 10 for now. 01/02: remains mildly improved. increase abilify to 15 mg tonight. continue regimen otherwise. 01/03: increase abilify to 20 mg QHS. remains highly impaired, but mildly improved from earlier in stay. continue current mgmt otherwise. 01/04 continue tx. some paranoia present but accepting tx. 01/06: continue current tx plan. 01/07: continues paranoid about going home. Requesting increase in ambien. Ambien increased to 10mg PO bedtime. 01/08: Patient reports feeling good today; reports improved sleep with taking trazodone last evening. however refused ambien despite asking for increase. Pt requesting to have magnesium changed to daily. Continues focused on people trying to harm her. 01/09: continue current tx plan. 01/10: increase abilify to 30 mg daily. check labs tonight. not as improved on current regimen as had been hoped. 01/11: tegretol 8.6 (5-12). increase tegretol to 300 BID. continues manic, paranoid delusions. 01/12: as for yesterday in presentation. c/o poor sleep, grogginess in morning. agrees to increase HS seroquel and DC trazodone. 01/13: slept better, thoughts slower, feels starting to improve. continue current mgmt. 01/14: poor sleep, asking for increased seroquel available at HS. paranoid delusions continue. incr HS seroquel PRNs. 01/16/2024: No changes. Continue current regimen. 01/16: increase night time seroquel to 75mg scheduled 01/17: continue current mgmt. remains gradually improving. check labs tomorrow night. 01/18: inconsistent day to day. today more paranoid and delusional content. check labs tonight, if historical dosing is any guide will likely increase tegretol tomorrow. reports having slept well last night for the first time since admission. 01/19: tegretol 9.1. increase dosing to 400 BID as of today. remains attenuated manic. continue current mgmt otherwise. Reason for continued inpatient stay Substantial Risk for: inability to function and rapid decompensation Time Spent With Patient Time: Total time managing care of this patient today __25__ minutes.
[2024-01-20] MEDS: Milk of Magnesia 30 ML ORAL.SUSP PO (19:41)
[2024-01-20] MEDS: polyethylene glycoL 3350 17 GM POWD.PACK PO (19:41)
[2024-01-20 20:00] VITALS: BP 140/62; PULSE 93; RESP 18; TEMP 36.8; O2SAT 94
[2024-01-20] MEDS: QUEtiapine Fumarate 25 MG TABLET 75 MG PO (21:58)
[2024-01-20] MEDS: Atorvastatin Calcium 40 MG TABLET PO (21:58)
[2024-01-20] MEDS: carBAMazepine ER 200 MG TAB.ER.12H 400 MG PO (21:58)
[2024-01-20] MEDS: ARIPiprazole 30 MG TABLET PO (21:58)
[2024-01-20 22:11] LABS: Glucose, Whole Blood 145 mg/dL (60-115)
[2024-01-21] MEDS: QUEtiapine Fumarate 25 MG TABLET PO ×2 (02:32→14:30)
[2024-01-21] MEDS: Thyroid,Pork 30 MG TABLET 120 MG PO (05:43)
[2024-01-21] MEDS: Omeprazole 20 MG CAPSULE.DR PO (06:09)
[2024-01-21 07:48] VITALS: BP 144/75; PULSE 99; RESP 18; TEMP 36.2; O2SAT 90
[2024-01-21 07:53] LABS: Glucose, Whole Blood 100 mg/dL (60-115)
[2024-01-21 08:00] VITALS: BP 144/75; PULSE 99; RESP 18; TEMP 36.4; O2SAT 92
[2024-01-21] MEDS: Cholecalciferol (Vitamin D3) 25 MCG TABLET 50 MCG PO (08:31)
[2024-01-21] MEDS: Furosemide 20 MG TABLET PO (08:31)
[2024-01-21] MEDS: Metoprolol Succinate ER 25 MG TAB.ER.24H PO (08:31)
[2024-01-21] MEDS: Magnesium Oxide 400 MG TABLET PO (08:31)
[2024-01-21] MEDS: Apixaban 2.5 MG TABLET 7.5 MG PO ×2 (08:31→20:42)
[2024-01-21] MEDS: carBAMazepine ER 200 MG TAB.ER.12H 400 MG PO ×2 (08:32→20:43)
[2024-01-21] MEDS: Benztropine Mesylate 0.5 MG TABLET PO ×2 (08:37→20:43)
[2024-01-21] MEDS: DULAGLUTIDE 1.5 MG/0.5 ML 1.5 EACH SUBCUT (10:55)
[2024-01-21 11:25] VITALS: BMI 35.1
[2024-01-21] MEDS: carBAMazepine ER 200 MG TAB.ER.12H PO (14:30)
--- NOTE | 2024-01-21 16:35 | HO.PSYCHPN ---
Subjective Subjective Date of Service: 01/21/24 Reason For Visit: Mood Disorder Interim History: remains with paranoid delusions, hyperverbal. a shade better than yesterday. agreeable to restructure tegretol to 200/200/400 from 400/400. notes she would like to stay until she is sleeping better. per staff, refused morning tegretol, then took 200 only (of 400). slept 7 hours. 3-day up 01/24. Mental Status Exam Mental Status Exam Narrative: Pt is alert and oriented; behavior is calm, cooperative; dressed in casual attire; eye contact appropriate; Speech is normal rate, volume and not pressured; less voluble. paranoid, conspiracies. no SI/HI/AVH expressed. Diagnostics Vital Signs (24Hr): Vital Signs - 24 hr 01/20/24 20:00 01/21/24 07:48 01/21/24 08:00 Temperature 98.2 F 97.2 F 97.5 F Pulse Rate 93 99 99 Respiratory Rate 18 18 18 Blood Pressure 140/62 H 144/75 H 144/75 H Pulse Oximetry 94 90 L 92 Oxygen Delivery Method Room Air Room Air Room Air BMI result Body Mass Index 35.1 Labs 01/19/24 20:24 01/19/24 20:23 Labs: Laboratory Results - last 48 hr 01/19/24 01/19/24 01/19/24 20:23 20:24 21:08 WBC 12.2 H RBC 4.01 L Hgb 12.8 Hct 38.4 MCV 95.8 MCH 31.9 MCHC 33.3 RDW 14.2 Plt Count 198 MPV 10.3 Immature Gran % (Auto) 0.4 Neut % (Auto) 50.7 Lymph % (Auto) 39.8 [place] % (Auto) 7.6 Eos % (Auto) 1.3 Baso % (Auto) 0.2 Lymph # (Auto) 4.9 [place] # (Auto) 0.9 Eos # (Auto) 0.2 Baso # (Auto) 0.0 Abs Immat Gran (auto) 0.05 H Absolute Neuts (auto) 6.2 Absolute Nucleated RBC 0.040 H Nucleated RBC % (auto) 0.3 H Sodium 141 Potassium 4.9 Chloride 98 Carbon Dioxide 32 H Anion Gap 16 BUN 22 H Creatinine 0.85 Estim Creat Clear Calc 81.4 Estimated GFR > 60 POC Glucose 124 H Random Glucose 106 Calcium 9.8 Total Bilirubin 0.3 Direct Bilirubin 0.1 AST 21 ALT 26 Alkaline Phosphatase 90 Total Protein 7.6 Albumin 4.4 Carbamazepine 9.1 01/20/24 01/20/24 01/21/24 07:47 21:55 07:50 WBC RBC Hgb Hct MCV MCH MCHC RDW Plt Count MPV Immature Gran % (Auto) Neut % (Auto) Lymph % (Auto) [place] % (Auto) Eos % (Auto) Baso % (Auto) Lymph # (Auto) [place] # (Auto) Eos # (Auto) Baso # (Auto) Abs Immat Gran (auto) Absolute Neuts (auto) Absolute Nucleated RBC Nucleated RBC % (auto) Sodium Potassium Chloride Carbon Dioxide Anion Gap BUN Creatinine Estim Creat Clear Calc Estimated GFR POC Glucose 100 145 H 100 Random Glucose Calcium Total Bilirubin Direct Bilirubin AST ALT Alkaline Phosphatase Total Protein Albumin Carbamazepine Medications Medications Current Medications Acetaminophen (Acetaminophen 325 Mg Tablet) 650 mg PO Q6H PRN PRN Reason: Headache/Pain Mild Scale (1-3) Last Admin: 01/11/24 03:28 Dose: 325 mg Al Hydroxide/Mg Hydroxide (Magnesium Hydrox/Alum Hydrox 30 Ml Oral.Susp) 30 ml PO Q6H PRN PRN Reason: Heartburn/Nausea Last Admin: 01/01/24 13:24 Dose: 30 ml Apixaban (Apixaban 2.5 Mg Tablet) 7.5 mg PO BID [facility] Last Admin: 01/21/24 08:31 Dose: 7.5 mg Aripiprazole (Aripiprazole 30 Mg Tablet) 30 mg PO BEDTIME [facility] Last Admin: 01/20/24 21:58 Dose: 30 mg Atorvastatin Calcium (Atorvastatin Calcium 40 Mg Tablet) 40 mg PO BEDTIME [facility] Last Admin: 01/20/24 21:58 Dose: 40 mg Benztropine Mesylate (Benztropine Mesylate 0.5 Mg Tablet) 0.5 mg PO BID [facility] Last Admin: 01/21/24 08:37 Dose: 0.5 mg Carbamazepine (Carbamazepine Er 200 Mg Tab.Er.12h) 400 mg PO BEDTIME [facility] Carbamazepine (Carbamazepine Er 200 Mg Tab.Er.12h) 200 mg PO BID@0900,1500 [facility] Last Admin: 01/21/24 14:30 Dose: 200 mg Furosemide (Furosemide 20 Mg Tablet) 20 mg PO DAILY [facility]; Protocol Last Admin: 01/21/24 08:31 Dose: 20 mg Insulin Human Lispro (Insulin Lispro 100 Unit/Ml 3 Ml Vial) 0 unit SUBCUT BID [facility]; Protocol Last Admin: 01/21/24 08:36 Dose: Not Given Magnesium Hydroxide (Milk Of Magnesia 30 Ml Oral.Susp) 30 ml PO DAILY PRN PRN Reason: Constipation Last Admin: 01/20/24 19:41 Dose: 30 ml Magnesium Oxide (Magnesium Oxide 400 Mg Tablet) 400 mg PO DAILY [facility] Last Admin: 01/21/24 08:31 Dose: 400 mg Melatonin (Melatonin 3 Mg Tablet) 9 mg PO BEDTIME PRN PRN Reason: Insomnia Last Admin: 01/06/24 20:43 Dose: 9 mg Metoprolol Succinate (Metoprolol Succinate Er 25 Mg Tab.Er.24h) 25 mg PO DAILY [facility]; Protocol Last Admin: 01/21/24 08:31 Dose: 25 mg Nicotine Polacrilex (Nicotine Polacrilex 2 Mg Gum) 2 mg BUCCAL Q2H PRN PRN Reason: Nicotine Cravings Pt Own(Dulaglutide [ Trulicity] 1.5 Mg/0. 5 Ml Pen Injector) 1.5 mg SUBCUT Th [facility] Last Admin: 01/21/24 10:55 Dose: 1.5 mg Omeprazole (Omeprazole 20 Mg Capsule.Dr) 20 mg PO DAILY@0630 [facility] Last Admin: 01/21/24 06:09 Dose: 20 mg Ondansetron HCl (Ondansetron Odt 4 Mg Tab.Rapdis) 4 mg TRANSLINGU Q6H PRN PRN Reason: Nausea Last Admin: 01/17/24 20:33 Dose: 4 mg Polyethylene Glycol (Polyethylene Glycol 3350 17 Gm Powd.Pack) 17 gm PO DAILY PRN PRN Reason: Constipation Last Admin: 01/20/24 19:41 Dose: 17 gm Quetiapine Fumarate (Quetiapine Fumarate 25 Mg Tablet) 25 mg PO TID PRN PRN Reason: anxieety Last Admin: 01/21/24 14:30 Dose: 25 mg Quetiapine Fumarate (Quetiapine Fumarate 25 Mg Tablet) 75 mg PO BEDTIME [facility] Last Admin: 01/20/24 21:58 Dose: 75 mg Sodium Biphosphate/Sodium Phosphate (Sodium Phosphate,[place]-Dibasic 133 Ml Enema) 133 ml OR ONCE PRN PRN Reason: Constipation Last Admin: 01/18/24 06:30 Dose: 133 ml Thyroid (Thyroid,Pork 30 Mg Tablet) 120 mg PO DAILY@0630 [facility] Last Admin: 01/21/24 05:43 Dose: 120 mg Trazodone HCl (Trazodone Hcl 50 Mg Tablet) 50 mg PO BEDTIME MRX1 PRN PRN Reason: insomnia Last Admin: 01/17/24 20:29 Dose: 50 mg Vitamin D (Cholecalciferol (Vitamin D3) 25 Mcg Tablet) 50 mcg PO DAILY [facility] Last Admin: 01/21/24 08:31 Dose: 50 mcg Allergies Allergies Allergy/AdvReac Type Severity Reaction Status Date / Time amoxicillin Allergy Unknown Unknown Uncoded 12/25/23 13:21 Pt states no food allergy Allergy Unknown Unknown Uncoded 12/25/23 13:21 Assessment & Plan Assessment & Plan (1) Bipolar affective disorder, manic, severe, with psychotic behavior: Status: Acute Code(s): F31.2 - Bipolar disorder, current episode manic severe with psychotic features Assessment and Plan: r/o schizoaffective bipolar type (2) PTSD (post-traumatic stress disorder): Status: Acute Code(s): F43.10 - Post-traumatic stress disorder, unspecified Plan 12/28: taper VPA and lamictal; start tegretol instead. do not restart caplyta; start abilify instead (had been on 20 mg in the past). ambien while hospitalized only for sleep. continue cogentin 0.5 BID and seroquel 25 TID PRN for now. continue porcine thyroid hormone. 12/29: DC lamictal entirely. increase abilify to 10 QHS. otherwise continue current mgmt. less verbose and voluble than yesterday. 12/30: increase tegretol to 200 BID, decrease VPA to 500 QHS. will discuss abilify versus vraylar with pt. grossly psychotic today. 12/31: DC VPA. declining vraylar, insisting on staying on abilify. becca slightly improved. 01/01: improved manic Sx. continue current mgmt. prefers to stay at abilify 10 for now. 01/02: remains mildly improved. increase abilify to 15 mg tonight. continue regimen otherwise. 01/03: increase abilify to 20 mg QHS. remains highly impaired, but mildly improved from earlier in stay. continue current mgmt otherwise. 01/04 continue tx. some paranoia present but accepting tx. 01/06: continue current tx plan. 01/07: continues paranoid about going home. Requesting increase in ambien. Ambien increased to 10mg PO bedtime. 01/08: Patient reports feeling good today; reports improved sleep with taking trazodone last evening. however refused ambien despite asking for increase. Pt requesting to have magnesium changed to daily. Continues focused on people trying to harm her. 01/09: continue current tx plan. 01/10: increase abilify to 30 mg daily. check labs tonight. not as improved on current regimen as had been hoped. 01/11: tegretol 8.6 (5-12). increase tegretol to 300 BID. continues manic, paranoid delusions. 01/12: as for yesterday in presentation. c/o poor sleep, grogginess in morning. agrees to increase HS seroquel and DC trazodone. 01/13: slept better, thoughts slower, feels starting to improve. continue current mgmt. 01/14: poor sleep, asking for increased seroquel available at HS. paranoid delusions continue. incr HS seroquel PRNs. 01/16/2024: No changes. Continue current regimen. 01/16: increase night time seroquel to 75mg scheduled 01/17: continue current mgmt. remains gradually improving. check labs tomorrow night. 01/18: inconsistent day to day. today more paranoid and delusional content. check labs tonight, if historical dosing is any guide will likely increase tegretol tomorrow. reports having slept well last night for the first time since admission. 01/19: tegretol 9.1. increase dosing to 400 BID as of today. remains attenuated manic. continue current mgmt otherwise. 01/20: a shade improved from yesterday. split tegretol 200/200/400. otherwise continue current mgmt. Reason for continued inpatient stay Substantial Risk for: inability to function and rapid decompensation Time Spent With Patient Time: Total time managing care of this patient today __25__ minutes.
[2024-01-21 20:00] VITALS: BP 127/82; PULSE 99; RESP 18; TEMP 36.8; O2SAT 95
[2024-01-21 20:42] LABS: Glucose, Whole Blood 127 mg/dL (60-115)
[2024-01-21] MEDS: Atorvastatin Calcium 40 MG TABLET PO (20:43)
[2024-01-21] MEDS: ARIPiprazole 30 MG TABLET PO (20:43)
[2024-01-21] MEDS: Melatonin 3 MG TABLET 9 MG PO (21:02)
[2024-01-22] MEDS: Thyroid,Pork 30 MG TABLET 120 MG PO (05:38)
[2024-01-22] MEDS: Omeprazole 20 MG CAPSULE.DR PO (05:38)
[2024-01-22 07:35] LABS: Glucose, Whole Blood 95 mg/dL (60-115)
[2024-01-22 07:45] VITALS: BP 146/75; PULSE 86; RESP 14; TEMP 36.3; O2SAT 97
[2024-01-22] MEDS: Furosemide 20 MG TABLET PO (08:46)
[2024-01-22] MEDS: Apixaban 2.5 MG TABLET 7.5 MG PO ×2 (08:46→20:42)
[2024-01-22] MEDS: Benztropine Mesylate 0.5 MG TABLET PO (08:46)
[2024-01-22] MEDS: Metoprolol Succinate ER 25 MG TAB.ER.24H PO (08:46)
[2024-01-22] MEDS: Magnesium Oxide 400 MG TABLET PO (08:46)
[2024-01-22] MEDS: Cholecalciferol (Vitamin D3) 25 MCG TABLET 50 MCG PO (08:46)
[2024-01-22] MEDS: carBAMazepine ER 200 MG TAB.ER.12H PO (08:46)
[2024-01-22] MEDS: Ondansetron ODT 4 MG TAB.RAPDIS TRANSLINGU (08:50)
[2024-01-22] MEDS: Milk of Magnesia 30 ML ORAL.SUSP PO (16:18)
[2024-01-22] MEDS: polyethylene glycoL 3350 17 GM POWD.PACK PO (16:18)
[2024-01-22 20:00] VITALS: BP 131/73; PULSE 92; RESP 16; TEMP 36.5; O2SAT 94
--- NOTE | 2024-01-22 20:01 | HO.PSYCHPN ---
Subjective Subjective Date of Service: 01/22/24 Reason For Visit: Mood Disorder Interim History: sleeping better. slower, more organized, fewer expressed paranoid delusions. discuss cogentin need and dosing, pt agrees to try lower dosing. per staff, paranoid, labile. taking meds. refused HS seroquel. slept about 7 hours. Mental Status Exam Mental Status Exam Narrative: Pt is alert and oriented; behavior is calm, cooperative; dressed in casual attire; eye contact appropriate; Speech is normal rate, volume and not pressured; less voluble. minimal paranoid conspiracies broached. no SI/HI/AVH expressed. Diagnostics Vital Signs (24Hr): Vital Signs - 24 hr 01/22/24 07:45 Temperature 97.3 F Pulse Rate 86 Respiratory Rate 14 Blood Pressure 146/75 H Pulse Oximetry 97 Oxygen Delivery Method Room Air BMI result Body Mass Index 35.1 Labs 01/19/24 20:24 01/19/24 20:23 Labs: Laboratory Results - last 48 hr 01/20/24 01/21/24 01/21/24 21:55 07:50 20:36 POC Glucose 145 H 100 127 H 01/22/24 07:31 POC Glucose 95 Medications Medications Current Medications Acetaminophen (Acetaminophen 325 Mg Tablet) 650 mg PO Q6H PRN PRN Reason: Headache/Pain Mild Scale (1-3) Last Admin: 01/11/24 03:28 Dose: 325 mg Al Hydroxide/Mg Hydroxide (Magnesium Hydrox/Alum Hydrox 30 Ml Oral.Susp) 30 ml PO Q6H PRN PRN Reason: Heartburn/Nausea Last Admin: 01/01/24 13:24 Dose: 30 ml Apixaban (Apixaban 2.5 Mg Tablet) 7.5 mg PO BID [facility] Last Admin: 01/22/24 08:46 Dose: 7.5 mg Aripiprazole (Aripiprazole 30 Mg Tablet) 30 mg PO BEDTIME [facility] Last Admin: 01/21/24 20:43 Dose: 30 mg Atorvastatin Calcium (Atorvastatin Calcium 40 Mg Tablet) 40 mg PO BEDTIME [facility] Last Admin: 01/21/24 20:43 Dose: 40 mg Benztropine Mesylate (Benztropine Mesylate 0.5 Mg Tablet) 0.25 mg PO BID [facility] Carbamazepine (Carbamazepine Er 200 Mg Tab.Er.12h) 400 mg PO BEDTIME [facility] Last Admin: 01/21/24 20:43 Dose: 400 mg Carbamazepine (Carbamazepine Er 200 Mg Tab.Er.12h) 200 mg PO BID@0900,1500 [facility] Last Admin: 01/22/24 15:55 Dose: Not Given Furosemide (Furosemide 20 Mg Tablet) 20 mg PO DAILY [facility]; Protocol Last Admin: 01/22/24 08:46 Dose: 20 mg Insulin Human Lispro (Insulin Lispro 100 Unit/Ml 3 Ml Vial) 0 unit SUBCUT BID [facility]; Protocol Last Admin: 01/22/24 08:52 Dose: Not Given Magnesium Hydroxide (Milk Of Magnesia 30 Ml Oral.Susp) 30 ml PO DAILY PRN PRN Reason: Constipation Last Admin: 01/22/24 16:18 Dose: 30 ml Magnesium Oxide (Magnesium Oxide 400 Mg Tablet) 400 mg PO DAILY [facility] Last Admin: 01/22/24 08:46 Dose: 400 mg Melatonin (Melatonin 3 Mg Tablet) 9 mg PO BEDTIME PRN PRN Reason: Insomnia Last Admin: 01/21/24 21:02 Dose: 9 mg Metoprolol Succinate (Metoprolol Succinate Er 25 Mg Tab.Er.24h) 25 mg PO DAILY [facility]; Protocol Last Admin: 01/22/24 08:46 Dose: 25 mg Nicotine Polacrilex (Nicotine Polacrilex 2 Mg Gum) 2 mg BUCCAL Q2H PRN PRN Reason: Nicotine Cravings Pt Own(Dulaglutide [ Trulicity] 1.5 Mg/0. 5 Ml Pen Injector) 1.5 mg SUBCUT Th [facility] Last Admin: 01/21/24 10:55 Dose: 1.5 mg Omeprazole (Omeprazole 20 Mg Capsule.Dr) 20 mg PO DAILY@0630 [facility] Last Admin: 01/22/24 05:38 Dose: 20 mg Ondansetron HCl (Ondansetron Odt 4 Mg Tab.Rapdis) 4 mg TRANSLINGU Q6H PRN PRN Reason: Nausea Last Admin: 01/22/24 08:50 Dose: 4 mg Polyethylene Glycol (Polyethylene Glycol 3350 17 Gm Powd.Pack) 17 gm PO DAILY PRN PRN Reason: Constipation Last Admin: 01/22/24 16:18 Dose: 17 gm Quetiapine Fumarate (Quetiapine Fumarate 25 Mg Tablet) 25 mg PO TID PRN PRN Reason: anxieety Last Admin: 01/21/24 14:30 Dose: 25 mg Quetiapine Fumarate (Quetiapine Fumarate 25 Mg Tablet) 75 mg PO BEDTIME [facility] Last Admin: 01/21/24 21:02 Dose: Not Given Sodium Biphosphate/Sodium Phosphate (Sodium Phosphate,[place]-Dibasic 133 Ml Enema) 133 ml GA ONCE PRN PRN Reason: Constipation Last Admin: 01/18/24 06:30 Dose: 133 ml Thyroid (Thyroid,Pork 30 Mg Tablet) 120 mg PO DAILY@0630 [facility] Last Admin: 01/22/24 05:38 Dose: 120 mg Trazodone HCl (Trazodone Hcl 50 Mg Tablet) 50 mg PO BEDTIME MRX1 PRN PRN Reason: insomnia Last Admin: 01/17/24 20:29 Dose: 50 mg Vitamin D (Cholecalciferol (Vitamin D3) 25 Mcg Tablet) 50 mcg PO DAILY [facility] Last Admin: 01/22/24 08:46 Dose: 50 mcg Allergies Allergies Allergy/AdvReac Type Severity Reaction Status Date / Time amoxicillin Allergy Unknown Unknown Uncoded 12/25/23 13:21 Pt states no food allergy Allergy Unknown Unknown Uncoded 12/25/23 13:21 Assessment & Plan Assessment & Plan (1) Bipolar affective disorder, manic, severe, with psychotic behavior: Status: Acute Code(s): F31.2 - Bipolar disorder, current episode manic severe with psychotic features Assessment and Plan: r/o schizoaffective bipolar type (2) PTSD (post-traumatic stress disorder): Status: Acute Code(s): F43.10 - Post-traumatic stress disorder, unspecified Plan 12/28: taper VPA and lamictal; start tegretol instead. do not restart caplyta; start abilify instead (had been on 20 mg in the past). ambien while hospitalized only for sleep. continue cogentin 0.5 BID and seroquel 25 TID PRN for now. continue porcine thyroid hormone. 12/29: DC lamictal entirely. increase abilify to 10 QHS. otherwise continue current mgmt. less verbose and voluble than yesterday. 12/30: increase tegretol to 200 BID, decrease VPA to 500 QHS. will discuss abilify versus vraylar with pt. grossly psychotic today. 12/31: DC VPA. declining vraylar, insisting on staying on abilify. becca slightly improved. 01/01: improved manic Sx. continue current mgmt. prefers to stay at abilify 10 for now. 01/02: remains mildly improved. increase abilify to 15 mg tonight. continue regimen otherwise. 01/03: increase abilify to 20 mg QHS. remains highly impaired, but mildly improved from earlier in stay. continue current mgmt otherwise. 01/04 continue tx. some paranoia present but accepting tx. 01/06: continue current tx plan. 01/07: continues paranoid about going home. Requesting increase in ambien. Ambien increased to 10mg PO bedtime. 01/08: Patient reports feeling good today; reports improved sleep with taking trazodone last evening. however refused ambien despite asking for increase. Pt requesting to have magnesium changed to daily. Continues focused on people trying to harm her. 01/09: continue current tx plan. 01/10: increase abilify to 30 mg daily. check labs tonight. not as improved on current regimen as had been hoped. 01/11: tegretol 8.6 (5-12). increase tegretol to 300 BID. continues manic, paranoid delusions. 01/12: as for yesterday in presentation. c/o poor sleep, grogginess in morning. agrees to increase HS seroquel and DC trazodone. 01/13: slept better, thoughts slower, feels starting to improve. continue current mgmt. 01/14: poor sleep, asking for increased seroquel available at HS. paranoid delusions continue. incr HS seroquel PRNs. 01/16/2024: No changes. Continue current regimen. 01/16: increase night time seroquel to 75mg scheduled 01/17: continue current mgmt. remains gradually improving. check labs tomorrow night. 01/18: inconsistent day to day. today more paranoid and delusional content. check labs tonight, if historical dosing is any guide will likely increase tegretol tomorrow. reports having slept well last night for the first time since admission. 01/19: tegretol 9.1. increase dosing to 400 BID as of today. remains attenuated manic. continue current mgmt otherwise. 01/20: a shade improved from yesterday. split tegretol 200/200/400. otherwise continue current mgmt. 01/21: notably improved. continue current mgmt aside from decrease cogentin 0.5 BID to 0.25 BID. Reason for continued inpatient stay Substantial Risk for: inability to function Time Spent With Patient Time: Total time managing care of this patient today __25__ minutes.
[2024-01-22] MEDS: Melatonin 3 MG TABLET 9 MG PO (20:41)
[2024-01-22] MEDS: Benztropine Mesylate 0.5 MG TABLET 0.25 MG PO (20:41)
[2024-01-22] MEDS: Atorvastatin Calcium 40 MG TABLET PO (20:41)
[2024-01-22] MEDS: ARIPiprazole 30 MG TABLET PO (20:42)
[2024-01-22] MEDS: traZODone HCL 50 MG TABLET PO (20:42)
[2024-01-22] MEDS: carBAMazepine ER 200 MG TAB.ER.12H 400 MG PO (20:42)
[2024-01-22 20:52] LABS: Glucose, Whole Blood 125 mg/dL (60-115)
[2024-01-23] MEDS: QUEtiapine Fumarate 25 MG TABLET PO (04:38)
[2024-01-23] MEDS: Thyroid,Pork 30 MG TABLET 120 MG PO (06:27)
[2024-01-23] MEDS: Omeprazole 20 MG CAPSULE.DR PO (06:28)
[2024-01-23 07:20] VITALS: BP 146/73; PULSE 96; RESP 14; TEMP 36.6; O2SAT 97
[2024-01-23 07:42] LABS: Glucose, Whole Blood 94 mg/dL (60-115)
[2024-01-23 09:34] VITALS: BP 130/60; PULSE 99
[2024-01-23] MEDS: Benztropine Mesylate 0.5 MG TABLET 0.25 MG PO ×2 (09:36→21:15)
[2024-01-23] MEDS: carBAMazepine ER 200 MG TAB.ER.12H PO (09:37)
[2024-01-23] MEDS: Magnesium Oxide 400 MG TABLET PO (09:38)
[2024-01-23] MEDS: Apixaban 2.5 MG TABLET 7.5 MG PO ×2 (09:38→21:15)
[2024-01-23] MEDS: Cholecalciferol (Vitamin D3) 25 MCG TABLET 50 MCG PO (09:38)
[2024-01-23] MEDS: Metoprolol Succinate ER 25 MG TAB.ER.24H PO (09:39)
[2024-01-23] MEDS: Furosemide 20 MG TABLET PO (09:39)
[2024-01-23] MEDS: Ondansetron ODT 4 MG TAB.RAPDIS TRANSLINGU (09:42)
--- NOTE | 2024-01-23 10:19 | HO.PSYCHPN ---
Subjective Subjective Date of Service: 01/23/24 Reason For Visit: Mood Disorder Medical Problems Affecting Mental Status: No Interim History: overall no significant management issues, however remains expansive at times, enjoys dancing with her headphones. Partial medication adherence regarding Tegretol. Less paranoid delusional intensity noted. Reports her sleep has been broken but p.r.n. Seroquel is helpful. Regarding Tegretol would like dose to be total of 700 mg rather than 800 mg. Has been declining daytime doses of 400 mg. Agreed to take 300 mg morning and 400 mg at bedtime. Would also like vitamin B12 and B6 to be ordered. Medication Compliance: Intermittent Side effects from medications: No Attending Groups: Yes Review of Systems Review of Systems unremarkable Mental Status Exam Mental Status Exam Narrative: Pt is alert and oriented; behavior is calm, cooperative; dressed in casual attire; eye contact appropriate; Speech is normal rate, volume and not pressured; less voluble. minimal paranoid beliefs mentioned. no SI/HI/AVH expressed. Diagnostics Vital Signs (24Hr): Vital Signs - 24 hr 01/22/24 20:00 01/23/24 07:20 01/23/24 09:34 Temperature 97.7 F 97.8 F Pulse Rate 92 96 99 Respiratory Rate 16 14 Blood Pressure 131/73 146/73 H 130/60 Pulse Oximetry 94 97 Oxygen Delivery Method Room Air Room Air BMI result Body Mass Index 35.1 Labs 01/19/24 20:24 01/19/24 20:23 Labs: Laboratory Results - last 48 hr 01/21/24 01/22/24 01/22/24 20:36 07:31 20:38 POC Glucose 127 H 95 125 H 01/23/24 07:35 POC Glucose 94 Medications Medications Current Medications Acetaminophen (Acetaminophen 325 Mg Tablet) 650 mg PO Q6H PRN PRN Reason: Headache/Pain Mild Scale (1-3) Last Admin: 01/11/24 03:28 Dose: 325 mg Al Hydroxide/Mg Hydroxide (Magnesium Hydrox/Alum Hydrox 30 Ml Oral.Susp) 30 ml PO Q6H PRN PRN Reason: Heartburn/Nausea Last Admin: 01/01/24 13:24 Dose: 30 ml Apixaban (Apixaban 2.5 Mg Tablet) 7.5 mg PO BID [facility] Last Admin: 01/23/24 09:38 Dose: 7.5 mg Aripiprazole (Aripiprazole 30 Mg Tablet) 30 mg PO BEDTIME [facility] Last Admin: 01/22/24 20:42 Dose: 30 mg Atorvastatin Calcium (Atorvastatin Calcium 40 Mg Tablet) 40 mg PO BEDTIME [facility] Last Admin: 01/22/24 20:41 Dose: 40 mg Benztropine Mesylate (Benztropine Mesylate 0.5 Mg Tablet) 0.25 mg PO BID [facility] Last Admin: 01/23/24 09:36 Dose: 0.25 mg Carbamazepine (Carbamazepine Er 200 Mg Tab.Er.12h) 400 mg PO BEDTIME [facility] Last Admin: 01/22/24 20:42 Dose: 400 mg Carbamazepine (Carbamazepine Er 200 Mg Tab.Er.12h) 200 mg PO BID@0900,1500 [facility] Last Admin: 01/23/24 09:37 Dose: 200 mg Furosemide (Furosemide 20 Mg Tablet) 20 mg PO DAILY [facility]; Protocol Last Admin: 01/23/24 09:39 Dose: 20 mg Insulin Human Lispro (Insulin Lispro 100 Unit/Ml 3 Ml Vial) 0 unit SUBCUT BID [facility]; Protocol Last Admin: 01/23/24 09:40 Dose: Not Given Magnesium Hydroxide (Milk Of Magnesia 30 Ml Oral.Susp) 30 ml PO DAILY PRN PRN Reason: Constipation Last Admin: 01/22/24 16:18 Dose: 30 ml Magnesium Oxide (Magnesium Oxide 400 Mg Tablet) 400 mg PO DAILY [facility] Last Admin: 01/23/24 09:38 Dose: 400 mg Melatonin (Melatonin 3 Mg Tablet) 9 mg PO BEDTIME PRN PRN Reason: Insomnia Last Admin: 01/22/24 20:41 Dose: 9 mg Metoprolol Succinate (Metoprolol Succinate Er 25 Mg Tab.Er.24h) 25 mg PO DAILY [facility]; Protocol Last Admin: 01/23/24 09:39 Dose: 25 mg Nicotine Polacrilex (Nicotine Polacrilex 2 Mg Gum) 2 mg BUCCAL Q2H PRN PRN Reason: Nicotine Cravings Pt Own(Dulaglutide [ Trulicity] 1.5 Mg/0. 5 Ml Pen Injector) 1.5 mg SUBCUT Th [facility] Last Admin: 01/21/24 10:55 Dose: 1.5 mg Omeprazole (Omeprazole 20 Mg Capsule.Dr) 20 mg PO DAILY@0630 [facility] Last Admin: 01/23/24 06:28 Dose: 20 mg Ondansetron HCl (Ondansetron Odt 4 Mg Tab.Rapdis) 4 mg TRANSLINGU Q6H PRN PRN Reason: Nausea Last Admin: 01/23/24 09:42 Dose: 4 mg Polyethylene Glycol (Polyethylene Glycol 3350 17 Gm Powd.Pack) 17 gm PO DAILY PRN PRN Reason: Constipation Last Admin: 01/22/24 16:18 Dose: 17 gm Quetiapine Fumarate (Quetiapine Fumarate 25 Mg Tablet) 25 mg PO TID PRN PRN Reason: anxieety Last Admin: 01/23/24 04:38 Dose: 25 mg Quetiapine Fumarate (Quetiapine Fumarate 25 Mg Tablet) 75 mg PO BEDTIME [facility] Last Admin: 01/22/24 20:46 Dose: Not Given Sodium Biphosphate/Sodium Phosphate (Sodium Phosphate,Travis-Dibasic 133 Ml Enema) 133 ml [place] ONCE PRN PRN Reason: Constipation Last Admin: 01/18/24 06:30 Dose: 133 ml Thyroid (Thyroid,Pork 30 Mg Tablet) 120 mg PO DAILY@0630 [facility] Last Admin: 01/23/24 06:27 Dose: 120 mg Trazodone HCl (Trazodone Hcl 50 Mg Tablet) 50 mg PO BEDTIME MRX1 PRN PRN Reason: insomnia Last Admin: 01/22/24 20:42 Dose: 50 mg Vitamin D (Cholecalciferol (Vitamin D3) 25 Mcg Tablet) 50 mcg PO DAILY [facility] Last Admin: 01/23/24 09:38 Dose: 50 mcg Allergies Allergies Allergy/AdvReac Type Severity Reaction Status Date / Time amoxicillin Allergy Unknown Unknown Uncoded 12/25/23 13:21 Pt states no food allergy Allergy Unknown Unknown Uncoded 12/25/23 13:21 Assessment & Plan Assessment & Plan (1) Bipolar affective disorder, manic, severe, with psychotic behavior: Status: Acute Code(s): F31.2 - Bipolar disorder, current episode manic severe with psychotic features Assessment and Plan: r/o schizoaffective bipolar type (2) PTSD (post-traumatic stress disorder): Status: Acute Code(s): F43.10 - Post-traumatic stress disorder, unspecified Plan 12/28: taper VPA and lamictal; start tegretol instead. do not restart caplyta; start abilify instead (had been on 20 mg in the past). ambien while hospitalized only for sleep. continue cogentin 0.5 BID and seroquel 25 TID PRN for now. continue porcine thyroid hormone. 12/29: DC lamictal entirely. increase abilify to 10 QHS. otherwise continue current mgmt. less verbose and voluble than yesterday. 12/30: increase tegretol to 200 BID, decrease VPA to 500 QHS. will discuss abilify versus vraylar with pt. grossly psychotic today. 12/31: DC VPA. declining vraylar, insisting on staying on abilify. becca slightly improved. 01/01: improved manic Sx. continue current mgmt. prefers to stay at abilify 10 for now. 01/02: remains mildly improved. increase abilify to 15 mg tonight. continue regimen otherwise. 01/03: increase abilify to 20 mg QHS. remains highly impaired, but mildly improved from earlier in stay. continue current mgmt otherwise. 01/04 continue tx. some paranoia present but accepting tx. 01/06: continue current tx plan. 01/07: continues paranoid about going home. Requesting increase in ambien. Ambien increased to 10mg PO bedtime. 01/08: Patient reports feeling good today; reports improved sleep with taking trazodone last evening. however refused ambien despite asking for increase. Pt requesting to have magnesium changed to daily. Continues focused on people trying to harm her. 01/09: continue current tx plan. 01/10: increase abilify to 30 mg daily. check labs tonight. not as improved on current regimen as had been hoped. 01/11: tegretol 8.6 (5-12). increase tegretol to 300 BID. continues manic, paranoid delusions. 01/12: as for yesterday in presentation. c/o poor sleep, grogginess in morning. agrees to increase HS seroquel and DC trazodone. 01/13: slept better, thoughts slower, feels starting to improve. continue current mgmt. 01/14: poor sleep, asking for increased seroquel available at HS. paranoid delusions continue. incr HS seroquel PRNs. 01/16/2024: No changes. Continue current regimen. 01/16: increase night time seroquel to 75mg scheduled 01/17: continue current mgmt. remains gradually improving. check labs tomorrow night. 01/18: inconsistent day to day. today more paranoid and delusional content. check labs tonight, if historical dosing is any guide will likely increase tegretol tomorrow. reports having slept well last night for the first time since admission. 01/19: tegretol 9.1. increase dosing to 400 BID as of today. remains attenuated manic. continue current mgmt otherwise. 01/20: a shade improved from yesterday. split tegretol 200/200/400. otherwise continue current mgmt. 01/21: notably improved. continue current mgmt aside from decrease cogentin 0.5 BID to 0.25 BID. 01/23/2024: In an effort to maximize Tegretol dosing and adherence, will change from total daily dose 800 mg down to total daily dose 700 mg (300 mg morning and 400 mg at bedtime), as patient is currently declining 400 mg in the morning, but accepting 400 mg at bedtime. Otherwise no changes Reason for continued inpatient stay Substantial Risk for: rapid decompensation Time Spent With Patient Time: Total time managing care of this patient today ____ minutes.
[2024-01-23] MEDS: Milk of Magnesia 30 ML ORAL.SUSP PO (15:55)
[2024-01-23 20:00] VITALS: BP 146/73; PULSE 96; RESP 16; TEMP 37.1; O2SAT 97
[2024-01-23] MEDS: ARIPiprazole 30 MG TABLET PO (21:15)
[2024-01-23] MEDS: carBAMazepine ER 200 MG TAB.ER.12H 400 MG PO (21:15)
[2024-01-23] MEDS: Atorvastatin Calcium 40 MG TABLET PO (21:16)
[2024-01-23] MEDS: traZODone HCL 50 MG TABLET PO (21:26)
[2024-01-23 21:37] LABS: Glucose, Whole Blood 110 mg/dL (60-115)
[2024-01-24] MEDS: QUEtiapine Fumarate 25 MG TABLET PO (00:59)
[2024-01-24] MEDS: Thyroid,Pork 30 MG TABLET 120 MG PO (06:28)
[2024-01-24] MEDS: Omeprazole 20 MG CAPSULE.DR PO (06:28)
[2024-01-24 07:47] LABS: Glucose, Whole Blood 95 mg/dL (60-115)
[2024-01-24 08:00] VITALS: BP 132/62; PULSE 87; RESP 12; TEMP 36.8; O2SAT 90
[2024-01-24] MEDS: carBAMazepine ER 100 MG TAB.ER.12H 300 MG PO (08:36)
[2024-01-24] MEDS: Cholecalciferol (Vitamin D3) 25 MCG TABLET 50 MCG PO (08:36)
[2024-01-24 08:37] VITALS: BP 132/62
[2024-01-24] MEDS: Apixaban 2.5 MG TABLET 7.5 MG PO ×2 (08:37→21:49)
[2024-01-24] MEDS: Furosemide 20 MG TABLET PO (08:37)
[2024-01-24] MEDS: Magnesium Oxide 400 MG TABLET PO (08:37)
[2024-01-24] MEDS: Pyridoxine HCl (Vitamin B6) 50 MG TABLET 25 MG PO (08:37)
[2024-01-24] MEDS: Metoprolol Succinate ER 25 MG TAB.ER.24H PO (08:38)
[2024-01-24] MEDS: Benztropine Mesylate 0.5 MG TABLET 0.25 MG PO ×2 (08:38→21:51)
[2024-01-24] MEDS: Cyanocobalamin (Vitamin B-12) 100 MCG TABLET PO (08:39)
[2024-01-24] MEDS: Milk of Magnesia 30 ML ORAL.SUSP PO (09:13)
[2024-01-24] MEDS: polyethylene glycoL 3350 17 GM POWD.PACK PO (09:17)
--- NOTE | 2024-01-24 10:27 | HO.PSYCHPN ---
Subjective Subjective Date of Service: 01/24/24 Reason For Visit: Mood Disorder Medical Problems Affecting Mental Status: No Interim History: Overall no significant management issues. Paranoid concerns at times as per nursing. Pleasant and expansive. Reviewed med list. Adherent with tegretol total daily dose now 700mg. Sleep good. Groups and self care Medication Compliance: Yes Side effects from medications: No Attending Groups: Yes Review of Systems Acute medical concerns: No Review of Systems Review of Systems unremarkable Mental Status Exam Mental Status Exam Narrative: Pt is alert and oriented; behavior is calm, cooperative; dressed in casual attire; eye contact appropriate; Speech is normal rate, volume and not pressured; less voluble. minimal paranoid beliefs mentioned. no SI/HI/AVH expressed. Diagnostics Vital Signs (24Hr): Vital Signs - 24 hr 01/23/24 20:00 01/24/24 08:00 01/24/24 08:37 Temperature 98.7 F 98.2 F Pulse Rate 96 87 Respiratory Rate 16 12 Blood Pressure 146/73 H 132/62 132/62 Pulse Oximetry 97 90 L Oxygen Delivery Method Room Air Room Air BMI result Body Mass Index 35.1 Labs 01/19/24 20:24 01/19/24 20:23 Labs: Laboratory Results - last 48 hr 01/22/24 01/23/24 01/23/24 20:38 07:35 21:31 POC Glucose 125 H 94 110 01/24/24 07:40 POC Glucose 95 Medications Medications Current Medications Acetaminophen (Acetaminophen 325 Mg Tablet) 650 mg PO Q6H PRN PRN Reason: Headache/Pain Mild Scale (1-3) Last Admin: 01/11/24 03:28 Dose: 325 mg Al Hydroxide/Mg Hydroxide (Magnesium Hydrox/Alum Hydrox 30 Ml Oral.Susp) 30 ml PO Q6H PRN PRN Reason: Heartburn/Nausea Last Admin: 01/01/24 13:24 Dose: 30 ml Apixaban (Apixaban 2.5 Mg Tablet) 7.5 mg PO BID [facility] Last Admin: 01/24/24 08:37 Dose: 7.5 mg Aripiprazole (Aripiprazole 30 Mg Tablet) 30 mg PO BEDTIME [facility] Last Admin: 01/23/24 21:15 Dose: 30 mg Atorvastatin Calcium (Atorvastatin Calcium 40 Mg Tablet) 40 mg PO BEDTIME [facility] Last Admin: 12/14/24 21:16 Dose: 40 mg Benztropine Mesylate (Benztropine Mesylate 0.5 Mg Tablet) 0.25 mg PO BID [facility] Last Admin: 01/24/24 08:38 Dose: 0.25 mg Carbamazepine (Carbamazepine Er 200 Mg Tab.Er.12h) 400 mg PO BEDTIME [facility] Last Admin: 01/23/24 21:15 Dose: 400 mg Carbamazepine (Carbamazepine Er 100 Mg Tab.Er.12h) 300 mg PO DAILY [facility] Last Admin: 01/24/24 08:36 Dose: 300 mg Cyanocobalamin (Cyanocobalamin (Vitamin B-12) 100 Mcg Tablet) 100 mcg PO DAILY [facility] Last Admin: 01/24/24 08:39 Dose: 100 mcg Furosemide (Furosemide 20 Mg Tablet) 20 mg PO DAILY [facility]; Protocol Last Admin: 01/24/24 08:37 Dose: 20 mg Insulin Human Lispro (Insulin Lispro 100 Unit/Ml 3 Ml Vial) 0 unit SUBCUT BID [facility]; Protocol Last Admin: 01/24/24 08:39 Dose: Not Given Magnesium Hydroxide (Milk Of Magnesia 30 Ml Oral.Susp) 30 ml PO DAILY PRN PRN Reason: Constipation Last Admin: 01/24/24 09:13 Dose: 30 ml Magnesium Oxide (Magnesium Oxide 400 Mg Tablet) 400 mg PO DAILY [facility] Last Admin: 01/24/24 08:37 Dose: 400 mg Melatonin (Melatonin 3 Mg Tablet) 9 mg PO BEDTIME PRN PRN Reason: Insomnia Last Admin: 01/22/24 20:41 Dose: 9 mg Metoprolol Succinate (Metoprolol Succinate Er 25 Mg Tab.Er.24h) 25 mg PO DAILY [facility]; Protocol Last Admin: 01/24/24 08:38 Dose: 25 mg Nicotine Polacrilex (Nicotine Polacrilex 2 Mg Gum) 2 mg BUCCAL Q2H PRN PRN Reason: Nicotine Cravings Pt Own(Dulaglutide [ Trulicity] 1.5 Mg/0. 5 Ml Pen Injector) 1.5 mg SUBCUT Th [facility] Last Admin: 01/21/24 10:55 Dose: 1.5 mg Omeprazole (Omeprazole 20 Mg Capsule.Dr) 20 mg PO DAILY@0630 [facility] Last Admin: 01/24/24 06:28 Dose: 20 mg Ondansetron HCl (Ondansetron Odt 4 Mg Tab.Rapdis) 4 mg TRANSLINGU Q6H PRN PRN Reason: Nausea Last Admin: 01/23/24 09:42 Dose: 4 mg Polyethylene Glycol (Polyethylene Glycol 3350 17 Gm Powd.Pack) 17 gm PO DAILY PRN PRN Reason: Constipation Last Admin: 01/24/24 09:17 Dose: 17 gm Pyridoxine HCl (Pyridoxine Hcl (Vitamin B6) 50 Mg Tablet) 25 mg PO DAILY [facility] Last Admin: 01/24/24 08:37 Dose: 25 mg Quetiapine Fumarate (Quetiapine Fumarate 25 Mg Tablet) 25 mg PO TID PRN PRN Reason: anxieety Last Admin: 01/24/24 00:59 Dose: 25 mg Quetiapine Fumarate (Quetiapine Fumarate 25 Mg Tablet) 75 mg PO BEDTIME [facility] Last Admin: 01/23/24 21:16 Dose: Not Given Sodium Biphosphate/Sodium Phosphate (Sodium Phosphate,Nicollet-Dibasic 133 Ml Enema) 133 ml [place] ONCE PRN PRN Reason: Constipation Last Admin: 01/18/24 06:30 Dose: 133 ml Thyroid (Thyroid,Pork 30 Mg Tablet) 120 mg PO DAILY@0630 [facility] Last Admin: 01/24/24 06:28 Dose: 120 mg Trazodone HCl (Trazodone Hcl 50 Mg Tablet) 50 mg PO BEDTIME MRX1 PRN PRN Reason: insomnia Last Admin: 01/23/24 21:26 Dose: 50 mg Vitamin D (Cholecalciferol (Vitamin D3) 25 Mcg Tablet) 50 mcg PO DAILY [facility] Last Admin: 01/24/24 08:36 Dose: 50 mcg Allergies Allergies Allergy/AdvReac Type Severity Reaction Status Date / Time amoxicillin Allergy Unknown Unknown Uncoded 12/25/23 13:21 Pt states no food allergy Allergy Unknown Unknown Uncoded 12/25/23 13:21 Assessment & Plan Assessment & Plan (1) Bipolar affective disorder, manic, severe, with psychotic behavior: Status: Acute Code(s): F31.2 - Bipolar disorder, current episode manic severe with psychotic features Assessment and Plan: r/o schizoaffective bipolar type (2) PTSD (post-traumatic stress disorder): Status: Acute Code(s): F43.10 - Post-traumatic stress disorder, unspecified Plan 12/28: taper VPA and lamictal; start tegretol instead. do not restart caplyta; start abilify instead (had been on 20 mg in the past). ambien while hospitalized only for sleep. continue cogentin 0.5 BID and seroquel 25 TID PRN for now. continue porcine thyroid hormone. 12/29: DC lamictal entirely. increase abilify to 10 QHS. otherwise continue current mgmt. less verbose and voluble than yesterday. 12/30: increase tegretol to 200 BID, decrease VPA to 500 QHS. will discuss abilify versus vraylar with pt. grossly psychotic today. 12/31: DC VPA. declining vraylar, insisting on staying on abilify. becca slightly improved. 01/01: improved manic Sx. continue current mgmt. prefers to stay at abilify 10 for now. 01/02: remains mildly improved. increase abilify to 15 mg tonight. continue regimen otherwise. 01/03: increase abilify to 20 mg QHS. remains highly impaired, but mildly improved from earlier in stay. continue current mgmt otherwise. 01/04 continue tx. some paranoia present but accepting tx. 01/06: continue current tx plan. 01/07: continues paranoid about going home. Requesting increase in ambien. Ambien increased to 10mg PO bedtime. 01/08: Patient reports feeling good today; reports improved sleep with taking trazodone last evening. however refused ambien despite asking for increase. Pt requesting to have magnesium changed to daily. Continues focused on people trying to harm her. 01/09: continue current tx plan. 01/10: increase abilify to 30 mg daily. check labs tonight. not as improved on current regimen as had been hoped. 01/11: tegretol 8.6 (5-12). increase tegretol to 300 BID. continues manic, paranoid delusions. 01/12: as for yesterday in presentation. c/o poor sleep, grogginess in morning. agrees to increase HS seroquel and DC trazodone. 01/13: slept better, thoughts slower, feels starting to improve. continue current mgmt. 01/14: poor sleep, asking for increased seroquel available at HS. paranoid delusions continue. incr HS seroquel PRNs. 01/16/2024: No changes. Continue current regimen. 01/16: increase night time seroquel to 75mg scheduled 01/17: continue current mgmt. remains gradually improving. check labs tomorrow night. 01/18: inconsistent day to day. today more paranoid and delusional content. check labs tonight, if historical dosing is any guide will likely increase tegretol tomorrow. reports having slept well last night for the first time since admission. 01/19: tegretol 9.1. increase dosing to 400 BID as of today. remains attenuated manic. continue current mgmt otherwise. 01/20: a shade improved from yesterday. split tegretol 200/200/400. otherwise continue current mgmt. 01/21: notably improved. continue current mgmt aside from decrease cogentin 0.5 BID to 0.25 BID. 01/23/2024: In an effort to maximize Tegretol dosing and adherence, will change from total daily dose 800 mg down to total daily dose 700 mg (300 mg morning and 400 mg at bedtime), as patient is currently declining 400 mg in the morning, but accepting 400 mg at bedtime. Otherwise no changes 01/23: no changes Reason for continued inpatient stay Substantial Risk for: rapid decompensation Time Spent With Patient Time: Total time managing care of this patient today ____ minutes.
--- NOTE | 2024-01-24 12:10 | PC.NURSE ---
Pt retracted her 3 day and signed a new 01/23, will be up on Friday 01/26
[2024-01-24] MEDS: Atorvastatin Calcium 40 MG TABLET PO (21:48)
[2024-01-24] MEDS: carBAMazepine ER 200 MG TAB.ER.12H 400 MG PO (21:49)
[2024-01-24] MEDS: ARIPiprazole 30 MG TABLET PO (21:49)
[2024-01-25] MEDS: QUEtiapine Fumarate 25 MG TABLET 75 MG PO (00:16)
[2024-01-25] MEDS: Thyroid,Pork 30 MG TABLET 120 MG PO (05:40)
[2024-01-25] MEDS: Omeprazole 20 MG CAPSULE.DR PO (06:35)
[2024-01-25 07:20] VITALS: BP 144/71; PULSE 94; RESP 16; TEMP 36.4; O2SAT 95
[2024-01-25] MEDS: Ondansetron ODT 4 MG TAB.RAPDIS TRANSLINGU (07:45)
[2024-01-25 07:53] LABS: Glucose, Whole Blood 130 mg/dL (60-115)
[2024-01-25] MEDS: Magnesium Oxide 400 MG TABLET PO (08:36)
[2024-01-25] MEDS: carBAMazepine ER 100 MG TAB.ER.12H 300 MG PO ×2 (08:36→20:47)
[2024-01-25] MEDS: Furosemide 20 MG TABLET PO (08:36)
[2024-01-25] MEDS: Apixaban 2.5 MG TABLET 7.5 MG PO ×2 (08:36→20:47)
[2024-01-25] MEDS: Metoprolol Succinate ER 25 MG TAB.ER.24H PO (08:36)
[2024-01-25] MEDS: Cholecalciferol (Vitamin D3) 25 MCG TABLET 50 MCG PO (08:36)
[2024-01-25] MEDS: Benztropine Mesylate 0.5 MG TABLET 0.25 MG PO ×2 (08:37→20:48)
[2024-01-25] MEDS: Cyanocobalamin (Vitamin B-12) 100 MCG TABLET PO (08:37)
[2024-01-25] MEDS: Pyridoxine HCl (Vitamin B6) 50 MG TABLET 25 MG PO (08:37)
--- NOTE | 2024-01-25 15:09 | HO.PSYCHPN ---
Subjective Subjective Date of Service: 01/25/24 Reason For Visit: Mood Disorder Interim History: calm, cooperative. less voluble, remains with paranoid delusions. the decision is made to abandon abilify and use seroquel in conjunction with tegretol. pt apparently over w/e decided she is comfortable only with 700 mg tegretol per day rather than the previous 800 mg. dosing regimen changed to 300/100/300 today. per staff, 3-day up the . paranoid, grandiose, sexual content. dismissive. Mental Status Exam Mental Status Exam Narrative: Pt is alert and oriented; behavior is calm, cooperative; dressed in casual attire; eye contact appropriate; Speech is normal rate, volume and not pressured; less voluble. moderate paranoid beliefs mentioned. no SI/HI/AVH expressed. Diagnostics Vital Signs (24Hr): Vital Signs - 24 hr 01/25/24 07:20 Temperature 97.5 F Pulse Rate 94 Respiratory Rate 16 Blood Pressure 144/71 H Pulse Oximetry 95 Oxygen Delivery Method Room Air BMI result Body Mass Index 35.1 Labs 01/19/24 20:24 01/19/24 20:23 Labs: Laboratory Results - last 48 hr 01/23/24 01/24/24 01/25/24 21:31 07:40 07:49 POC Glucose 110 95 130 H Medications Medications Current Medications Acetaminophen (Acetaminophen 325 Mg Tablet) 650 mg PO Q6H PRN PRN Reason: Headache/Pain Mild Scale (1-3) Last Admin: 01/11/24 03:28 Dose: 325 mg Al Hydroxide/Mg Hydroxide (Magnesium Hydrox/Alum Hydrox 30 Ml Oral.Susp) 30 ml PO Q6H PRN PRN Reason: Heartburn/Nausea Last Admin: 01/01/24 13:24 Dose: 30 ml Apixaban (Apixaban 2.5 Mg Tablet) 7.5 mg PO BID BERNARDA Last Admin: 01/25/24 08:36 Dose: 7.5 mg Atorvastatin Calcium (Atorvastatin Calcium 40 Mg Tablet) 40 mg PO BEDTIME BERNARDA Last Admin: 01/24/24 21:48 Dose: 40 mg Benztropine Mesylate (Benztropine Mesylate 0.5 Mg Tablet) 0.25 mg PO BID BERNARDA Last Admin: 01/25/24 08:37 Dose: 0.25 mg Carbamazepine (Carbamazepine Er 100 Mg Tab.Er.12h) 100 mg PO DAILY@1500 BERNARDA Carbamazepine (Carbamazepine Er 100 Mg Tab.Er.12h) 300 mg PO BID COUNT [facility]CLUD[facility] Cyanocobalamin (Cyanocobalamin (Vitamin B-12) 100 Mcg Tablet) 100 mcg PO DAILY COUNT INCLUDES [facility] Last Admin: 01/25/24 08:37 Dose: 100 mcg Furosemide (Furosemide 20 Mg Tablet) 20 mg PO DAILY COUNT INCLUDES [facility]; Protocol Last Admin: 01/25/24 08:36 Dose: 20 mg Insulin Human Lispro (Insulin Lispro 100 Unit/Ml 3 Ml Vial) 0 unit SUBCUT BID COUNT [facility]CLUDES [facility]; Protocol Last Admin: 01/25/24 09:01 Dose: Not Given Magnesium Hydroxide (Milk Of Magnesia 30 Ml Oral.Susp) 30 ml PO DAILY PRN PRN Reason: Constipation Last Admin: 01/24/24 09:13 Dose: 30 ml Magnesium Oxide (Magnesium Oxide 400 Mg Tablet) 400 mg PO DAILY COUNT INCLUDES [facility] Last Admin: 01/25/24 08:36 Dose: 400 mg Melatonin (Melatonin 3 Mg Tablet) 9 mg PO BEDTIME PRN PRN Reason: Insomnia Last Admin: 01/22/24 20:41 Dose: 9 mg Metoprolol Succinate (Metoprolol Succinate Er 25 Mg Tab.Er.24h) 25 mg PO DAILY COUNT INCLUDES [facility]; Protocol Last Admin: 01/25/24 08:36 Dose: 25 mg Nicotine Polacrilex (Nicotine Polacrilex 2 Mg Gum) 2 mg BUCCAL Q2H PRN PRN Reason: Nicotine Cravings Pt Own(Dulaglutide [ Trulicity] 1.5 Mg/0. 5 Ml Pen Injector) 1.5 mg SUBCUT Th COUNT INCLUDES [facility] Last Admin: 01/21/24 10:55 Dose: 1.5 mg Omeprazole (Omeprazole 20 Mg Capsule.Dr) 20 mg PO DAILY@0630 COUNT [facility]CLUDES [facility] Last Admin: 01/25/24 06:35 Dose: 20 mg Ondansetron HCl (Ondansetron Odt 4 Mg Tab.Rapdis) 4 mg TRANSLINGU Q6H PRN PRN Reason: Nausea Last Admin: 01/25/24 07:45 Dose: 4 mg Polyethylene Glycol (Polyethylene Glycol 3350 17 Gm Powd.Pack) 17 gm PO DAILY PRN PRN Reason: Constipation Last Admin: 01/24/24 09:17 Dose: 17 gm Pyridoxine HCl (Pyridoxine Hcl (Vitamin B6) 50 Mg Tablet) 25 mg PO DAILY COUNT INCLUDES [facility] Last Admin: 01/25/24 08:37 Dose: 25 mg Quetiapine Fumarate (Quetiapine Fumarate 25 Mg Tablet) 25 mg PO TID PRN PRN Reason: anxieety Last Admin: 01/24/24 00:59 Dose: 25 mg Quetiapine Fumarate (Quetiapine Fumarate 200 Mg Tablet) 200 mg PO BEDTIME COUNT INCLUDES [facility] Sodium Biphosphate/Sodium Phosphate (Sodium Phosphate,[place]cpher[place]-Dibasic 133 Ml Enema) 133 ml ND ONCE PRN PRN Reason: Constipation Last Admin: 01/18/24 06:30 Dose: 133 ml Thyroid (Thyroid,Pork 30 Mg Tablet) 120 mg PO DAILY@0630 BERNARDA Last Admin: 01/25/24 05:40 Dose: 120 mg Trazodone HCl (Trazodone Hcl 50 Mg Tablet) 50 mg PO BEDTIME MRX1 PRN PRN Reason: insomnia Last Admin: 01/23/24 21:26 Dose: 50 mg Vitamin D (Cholecalciferol (Vitamin D3) 25 Mcg Tablet) 50 mcg PO DAILY COUNT INCLUDES [facility] Last Admin: 01/25/24 08:36 Dose: 50 mcg Allergies Allergies Allergy/AdvReac Type Severity Reaction Status Date / Time amoxicillin Allergy Unknown Unknown Uncoded 12/25/23 13:21 Pt states no food allergy Allergy Unknown Unknown Uncoded 12/25/23 13:21 Assessment & Plan Assessment & Plan (1) Bipolar affective disorder, manic, severe, with psychotic behavior: Status: Acute Code(s): F31.2 - Bipolar disorder, current episode manic severe with psychotic features Assessment and Plan: r/o schizoaffective bipolar type (2) PTSD (post-traumatic stress disorder): Status: Acute Code(s): F43.10 - Post-traumatic stress disorder, unspecified Plan 12/28: taper VPA and lamictal; start tegretol instead. do not restart caplyta; start abilify instead (had been on 20 mg in the past). ambien while hospitalized only for sleep. continue cogentin 0.5 BID and seroquel 25 TID PRN for now. continue porcine thyroid hormone. 12/29: DC lamictal entirely. increase abilify to 10 QHS. otherwise continue current mgmt. less verbose and voluble than yesterday. 12/30: increase tegretol to 200 BID, decrease VPA to 500 QHS. will discuss abilify versus vraylar with pt. grossly psychotic today. 12/31: DC VPA. declining vraylar, insisting on staying on abilify. becca slightly improved. 01/01: improved manic Sx. continue current mgmt. prefers to stay at abilify 10 for now. 01/02: remains mildly improved. increase abilify to 15 mg tonight. continue regimen otherwise. 01/03: increase abilify to 20 mg QHS. remains highly impaired, but mildly improved from earlier in stay. continue current mgmt otherwise. 01/04 continue tx. some paranoia present but accepting tx. 01/06: continue current tx plan. 01/07: continues paranoid about going home. Requesting increase in ambien. Ambien increased to 10mg PO bedtime. 01/08: Patient reports feeling good today; reports improved sleep with taking trazodone last evening. however refused ambien despite asking for increase. Pt requesting to have magnesium changed to daily. Continues focused on people trying to harm her. 01/09: continue current tx plan. 01/10: increase abilify to 30 mg daily. check labs tonight. not as improved on current regimen as had been hoped. 01/11: tegretol 8.6 (5-12). increase tegretol to 300 BID. continues manic, paranoid delusions. 01/12: as for yesterday in presentation. c/o poor sleep, grogginess in morning. agrees to increase HS seroquel and DC trazodone. 01/13: slept better, thoughts slower, feels starting to improve. continue current mgmt. 01/14: poor sleep, asking for increased seroquel available at HS. paranoid delusions continue. incr HS seroquel PRNs. 01/16/2024: No changes. Continue current regimen. 01/16: increase night time seroquel to 75mg scheduled 01/17: continue current mgmt. remains gradually improving. check labs tomorrow night. 01/18: inconsistent day to day. today more paranoid and delusional content. check labs tonight, if historical dosing is any guide will likely increase tegretol tomorrow. reports having slept well last night for the first time since admission. 01/19: tegretol 9.1. increase dosing to 400 BID as of today. remains attenuated manic. continue current mgmt otherwise. 01/20: a shade improved from yesterday. split tegretol 200/200/400. otherwise continue current mgmt. 01/21: notably improved. continue current mgmt aside from decrease cogentin 0.5 BID to 0.25 BID. 01/23/2024: In an effort to maximize Tegretol dosing and adherence, will change from total daily dose 800 mg down to total daily dose 700 mg (300 mg morning and 400 mg at bedtime), as patient is currently declining 400 mg in the morning, but accepting 400 mg at bedtime. Otherwise no changes 01/23: no changes 01/24: per pt request, tegretol dosing changed to 300/100/300. the decision is made to DC abilify due to lack of progress and return to seroquel at . initial dosing 200 mg, to titrate as indicated. 3-day up 01/26. Reason for continued inpatient stay Substantial Risk for: inability to function and rapid decompensation Time Spent With Patient Time: Total time managing care of this patient today __25__ minutes.
[2024-01-25] MEDS: carBAMazepine ER 100 MG TAB.ER.12H PO (15:21)
[2024-01-25 20:42] VITALS: BP 159/81; PULSE 100; RESP 18; TEMP 36.9; O2SAT 94
[2024-01-25] MEDS: Atorvastatin Calcium 40 MG TABLET PO (20:47)
[2024-01-25] MEDS: QUEtiapine Fumarate 200 MG TABLET PO (20:48)
[2024-01-26] MEDS: Thyroid,Pork 30 MG TABLET 120 MG PO (06:15)
[2024-01-26] MEDS: Omeprazole 20 MG CAPSULE.DR PO (07:07)
[2024-01-26 07:59] VITALS: BP 132/62; PULSE 88; RESP 16; TEMP 36.9; O2SAT 96
[2024-01-26 07:59] LABS: Glucose, Whole Blood 113 mg/dL (60-115)
[2024-01-26] MEDS: Furosemide 20 MG TABLET PO (08:46)
[2024-01-26] MEDS: Cholecalciferol (Vitamin D3) 25 MCG TABLET 50 MCG PO (08:46)
[2024-01-26] MEDS: Metoprolol Succinate ER 25 MG TAB.ER.24H PO (08:47)
[2024-01-26] MEDS: Cyanocobalamin (Vitamin B-12) 100 MCG TABLET PO (08:47)
[2024-01-26] MEDS: Magnesium Oxide 400 MG TABLET PO (08:47)
[2024-01-26] MEDS: Apixaban 2.5 MG TABLET 7.5 MG PO ×2 (08:48→22:00)
[2024-01-26] MEDS: carBAMazepine ER 100 MG TAB.ER.12H 300 MG PO ×2 (08:48→21:59)
[2024-01-26] MEDS: Benztropine Mesylate 0.5 MG TABLET 0.25 MG PO (08:49)
[2024-01-26] MEDS: Pyridoxine HCl (Vitamin B6) 50 MG TABLET 25 MG PO (08:49)
[2024-01-26] MEDS: carBAMazepine ER 100 MG TAB.ER.12H PO (14:33)
--- NOTE | 2024-01-26 14:44 | HO.PSYCHPN ---
Subjective Subjective Date of Service: 01/26/24 Reason For Visit: Mood Disorder Interim History: continues trajectory of mild improvement. slept reasonably well last night, up once in the night only. does want to increase HS seroquel to 300 mg, however. also c/o mild hand tremor (none noted by this hand sign writer), asks to increase cogentin back to 0.5 BID. not sure when to leave, does want to sleep better prior to discharge. per staff, 3-day up tomorrow. attended 6 groups yesterday. calm, pleasant. slept 6 hours. Mental Status Exam Mental Status Exam Narrative: Pt is alert and oriented; behavior is calm, cooperative; dressed in casual attire; eye contact appropriate; Speech is normal rate, volume and not pressured; less voluble. moderate paranoid beliefs mentioned. no SI/HI/AVH expressed. Diagnostics Vital Signs (24Hr): Vital Signs - 24 hr 01/25/24 20:42 01/26/24 07:59 Temperature 98.4 F 98.5 F Pulse Rate 100 88 Respiratory Rate 18 16 Blood Pressure 159/81 H 132/62 Pulse Oximetry 94 96 Oxygen Delivery Method Room Air Room Air BMI result Body Mass Index 35.1 Labs 01/19/24 20:24 01/19/24 20:23 Labs: Laboratory Results - last 48 hr 01/25/24 01/26/24 07:49 07:54 POC Glucose 130 H 113 Medications Medications Current Medications Acetaminophen (Acetaminophen 325 Mg Tablet) 650 mg PO Q6H PRN PRN Reason: Headache/Pain Mild Scale (1-3) Last Admin: 01/11/24 03:28 Dose: 325 mg Al Hydroxide/Mg Hydroxide (Magnesium Hydrox/Alum Hydrox 30 Ml Oral.Susp) 30 ml PO Q6H PRN PRN Reason: Heartburn/Nausea Last Admin: 01/01/24 13:24 Dose: 30 ml Apixaban (Apixaban 2.5 Mg Tablet) 7.5 mg PO BID BERNARDA Last Admin: 01/26/24 08:48 Dose: 7.5 mg Atorvastatin Calcium (Atorvastatin Calcium 40 Mg Tablet) 40 mg PO BEDTIME BERNARDA Last Admin: 01/25/24 20:47 Dose: 40 mg Benztropine Mesylate (Benztropine Mesylate 0.5 Mg Tablet) 0.5 mg PO BID BERNARDA Carbamazepine (Carbamazepine Er 100 Mg Tab.Er.12h) 100 mg PO DAILY@1500 [facility] Last Admin: 01/26/24 14:33 Dose: 100 mg Carbamazepine (Carbamazepine Er 100 Mg Tab.Er.12h) 300 mg PO BID [facility] Last Admin: 01/26/24 08:48 Dose: 300 mg Cyanocobalamin (Cyanocobalamin (Vitamin B-12) 100 Mcg Tablet) 100 mcg PO DAILY [facility] Last Admin: 01/26/24 08:47 Dose: 100 mcg Furosemide (Furosemide 20 Mg Tablet) 20 mg PO DAILY [facility]; Protocol Last Admin: 01/26/24 08:46 Dose: 20 mg Insulin Human Lispro (Insulin Lispro 100 Unit/Ml 3 Ml Vial) 0 unit SUBCUT BID [facility]; Protocol Last Admin: 01/26/24 09:43 Dose: Not Given Magnesium Hydroxide (Milk Of Magnesia 30 Ml Oral.Susp) 30 ml PO DAILY PRN PRN Reason: Constipation Last Admin: 01/24/24 09:13 Dose: 30 ml Magnesium Oxide (Magnesium Oxide 400 Mg Tablet) 400 mg PO DAILY [facility] Last Admin: 01/26/24 08:47 Dose: 400 mg Melatonin (Melatonin 3 Mg Tablet) 9 mg PO BEDTIME PRN PRN Reason: Insomnia Last Admin: 01/22/24 20:41 Dose: 9 mg Metoprolol Succinate (Metoprolol Succinate Er 25 Mg Tab.Er.24h) 25 mg PO DAILY [facility]; Protocol Last Admin: 01/26/24 08:47 Dose: 25 mg Nicotine Polacrilex (Nicotine Polacrilex 2 Mg Gum) 2 mg BUCCAL Q2H PRN PRN Reason: Nicotine Cravings Pt Own(Dulaglutide [ Trulicity] 1.5 Mg/0. 5 Ml Pen Injector) 1.5 mg SUBCUT Th [facility] Last Admin: 01/21/24 10:55 Dose: 1.5 mg Omeprazole (Omeprazole 20 Mg Capsule.Dr) 20 mg PO DAILY@0630 [facility] Last Admin: 01/26/24 07:07 Dose: 20 mg Ondansetron HCl (Ondansetron Odt 4 Mg Tab.Rapdis) 4 mg TRANSLINGU Q6H PRN PRN Reason: Nausea Last Admin: 01/25/24 07:45 Dose: 4 mg Polyethylene Glycol (Polyethylene Glycol 3350 17 Gm Powd.Pack) 17 gm PO DAILY PRN PRN Reason: Constipation Last Admin: 01/24/24 09:17 Dose: 17 gm Pyridoxine HCl (Pyridoxine Hcl (Vitamin B6) 50 Mg Tablet) 25 mg PO DAILY [facility] Last Admin: 01/26/24 08:49 Dose: 25 mg Quetiapine Fumarate (Quetiapine Fumarate 25 Mg Tablet) 25 mg PO TID PRN PRN Reason: anxieety Last Admin: 01/24/24 00:59 Dose: 25 mg Quetiapine Fumarate (Quetiapine Fumarate 300 Mg Tablet) 300 mg PO BEDTIME [facility] Sodium Biphosphate/Sodium Phosphate (Sodium Phosphate,[place]les-Dibasic 133 Ml Enema) 133 ml [place] ONCE PRN PRN Reason: Constipation Last Admin: 01/18/24 06:30 Dose: 133 ml Thyroid (Thyroid,Pork 30 Mg Tablet) 120 mg PO DAILY@0630 [facility] Last Admin: 01/26/24 06:15 Dose: 120 mg Trazodone HCl (Trazodone Hcl 50 Mg Tablet) 50 mg PO BEDTIME MRX1 PRN PRN Reason: insomnia Last Admin: 01/23/24 21:26 Dose: 50 mg Vitamin D (Cholecalciferol (Vitamin D3) 25 Mcg Tablet) 50 mcg PO DAILY [facility] Last Admin: 01/26/24 08:46 Dose: 50 mcg Allergies Allergies Allergy/AdvReac Type Severity Reaction Status Date / Time amoxicillin Allergy Unknown Unknown Uncoded 12/25/23 13:21 Pt states no food allergy Allergy Unknown Unknown Uncoded 12/25/23 13:21 Assessment & Plan Assessment & Plan (1) Bipolar affective disorder, manic, severe, with psychotic behavior: Status: Acute Code(s): F31.2 - Bipolar disorder, current episode manic severe with psychotic features Assessment and Plan: r/o schizoaffective bipolar type (2) PTSD (post-traumatic stress disorder): Status: Acute Code(s): F43.10 - Post-traumatic stress disorder, unspecified Plan 12/28: taper VPA and lamictal; start tegretol instead. do not restart caplyta; start abilify instead (had been on 20 mg in the past). ambien while hospitalized only for sleep. continue cogentin 0.5 BID and seroquel 25 TID PRN for now. continue porcine thyroid hormone. 12/29: DC lamictal entirely. increase abilify to 10 QHS. otherwise continue current mgmt. less verbose and voluble than yesterday. 12/30: increase tegretol to 200 BID, decrease VPA to 500 QHS. will discuss abilify versus vraylar with pt. grossly psychotic today. 12/31: DC VPA. declining vraylar, insisting on staying on abilify. becca slightly improved. 01/01: improved manic Sx. continue current mgmt. prefers to stay at abilify 10 for now. 01/02: remains mildly improved. increase abilify to 15 mg tonight. continue regimen otherwise. 01/03: increase abilify to 20 mg QHS. remains highly impaired, but mildly improved from earlier in stay. continue current mgmt otherwise. 01/04 continue tx. some paranoia present but accepting tx. 01/06: continue current tx plan. 01/07: continues paranoid about going home. Requesting increase in ambien. Ambien increased to 10mg PO bedtime. 01/08: Patient reports feeling good today; reports improved sleep with taking trazodone last evening. however refused ambien despite asking for increase. Pt requesting to have magnesium changed to daily. Continues focused on people trying to harm her. 01/09: continue current tx plan. 01/10: increase abilify to 30 mg daily. check labs tonight. not as improved on current regimen as had been hoped. 01/11: tegretol 8.6 (5-12). increase tegretol to 300 BID. continues manic, paranoid delusions. 01/12: as for yesterday in presentation. c/o poor sleep, grogginess in morning. agrees to increase HS seroquel and DC trazodone. 01/13: slept better, thoughts slower, feels starting to improve. continue current mgmt. 01/14: poor sleep, asking for increased seroquel available at HS. paranoid delusions continue. incr HS seroquel PRNs. 01/16/2024: No changes. Continue current regimen. 01/16: increase night time seroquel to 75mg scheduled 01/17: continue current mgmt. remains gradually improving. check labs tomorrow night. 01/18: inconsistent day to day. today more paranoid and delusional content. check labs tonight, if historical dosing is any guide will likely increase tegretol tomorrow. reports having slept well last night for the first time since admission. 01/19: tegretol 9.1. increase dosing to 400 BID as of today. remains attenuated manic. continue current mgmt otherwise. 01/20: a shade improved from yesterday. split tegretol 200/200/400. otherwise continue current mgmt. 01/21: notably improved. continue current mgmt aside from decrease cogentin 0.5 BID to 0.25 BID. 01/23/2024: In an effort to maximize Tegretol dosing and adherence, will change from total daily dose 800 mg down to total daily dose 700 mg (300 mg morning and 400 mg at bedtime), as patient is currently declining 400 mg in the morning, but accepting 400 mg at bedtime. Otherwise no changes 01/23: no changes 01/24: per pt request, tegretol dosing changed to 300/100/300. the decision is made to DC abilify due to lack of progress and return to seroquel at HS. initial dosing 200 mg, to titrate as indicated. 3-day up 01/26. 01/25: improved sleep, but still disrupted. increase HS seroquel to 300 mg. c/o hand tremor, increase cogentin back to 0.5 BID. gradual daily trend of improvement. 3-day up tomorrow. Reason for continued inpatient stay Substantial Risk for: inability to function and rapid decompensation Time Spent With Patient Time: Total time managing care of this patient today __35__ minutes.
[2024-01-26 20:00] VITALS: BP 169/80; PULSE 97; RESP 16; TEMP 36.9; O2SAT 96
[2024-01-26] MEDS: QUEtiapine Fumarate 300 MG TABLET PO (21:59)
[2024-01-26] MEDS: Benztropine Mesylate 0.5 MG TABLET PO (21:59)
[2024-01-26] MEDS: Atorvastatin Calcium 40 MG TABLET PO (22:00)
[2024-01-27] MEDS: Thyroid,Pork 30 MG TABLET 120 MG PO (06:36)
[2024-01-27] MEDS: Omeprazole 20 MG CAPSULE.DR PO (07:00)
[2024-01-27 07:37] VITALS: BP 116/65; PULSE 86; RESP 16; TEMP 36.8; O2SAT 93
[2024-01-27 07:51] LABS: Glucose, Whole Blood 103 mg/dL (60-115)
[2024-01-27] MEDS: Apixaban 2.5 MG TABLET 7.5 MG PO ×2 (08:19→21:24)
[2024-01-27] MEDS: Magnesium Oxide 400 MG TABLET PO (08:19)
[2024-01-27] MEDS: Furosemide 20 MG TABLET PO (08:20)
[2024-01-27] MEDS: Benztropine Mesylate 0.5 MG TABLET PO ×2 (08:20→21:24)
[2024-01-27] MEDS: Metoprolol Succinate ER 25 MG TAB.ER.24H PO (08:21)
[2024-01-27] MEDS: Cyanocobalamin (Vitamin B-12) 100 MCG TABLET PO (08:21)
[2024-01-27] MEDS: Cholecalciferol (Vitamin D3) 25 MCG TABLET 50 MCG PO (08:21)
[2024-01-27] MEDS: carBAMazepine ER 100 MG TAB.ER.12H 300 MG PO ×2 (08:22→21:24)
[2024-01-27] MEDS: Pyridoxine HCl (Vitamin B6) 50 MG TABLET 25 MG PO (08:22)
--- NOTE | 2024-01-27 14:01 | P.PNPSI_ITS ---
Subjective Subjective Date of Service: 01/27/24 Reason For Visit: Mood Disorder Interim History: more disorganized, rpessured, delusional today. appears more irritable and mistrustful of MD. states she will not allow increase in tegretol to 800 mg and she will decline labs tomorrow evening. insists on retracting 3-day notice with BETY Valderrama rather than . wants to leave thursday, planning on having her brother come pick her up. per staff, 3-day up today. singing sexually inappropriate lyrics (something about raping all the boys, per ALFREDO Mcgregor). restless sleep, about 7 hours. retracted 3-day notice. Mental Status Exam Mental Status Exam Narrative: Pt is alert and oriented; behavior is calm, cooperative; dressed in casual attire; eye contact appropriate; Speech is normal rate, volume and not pressured; more voluble. paranoid delusions dominant. no SI/HI/AVH expressed. Diagnostics Vital Signs (24Hr): Vital Signs - 24 hr 01/26/24 20:00 01/27/24 07:37 Temperature 98.5 F 98.2 F Pulse Rate 97 86 Respiratory Rate 16 16 Blood Pressure 169/80 H 116/65 Pulse Oximetry 96 93 Oxygen Delivery Method Room Air Room Air BMI result Body Mass Index 35.1 Labs 01/19/24 20:24 01/19/24 20:23 Labs: Laboratory Results - last 48 hr 01/26/24 01/27/24 07:54 07:47 POC Glucose 113 103 Medications Medications Current Medications Acetaminophen (Acetaminophen 325 Mg Tablet) 650 mg PO Q6H PRN PRN Reason: Headache/Pain Mild Scale (1-3) Last Admin: 01/11/24 03:28 Dose: 325 mg Al Hydroxide/Mg Hydroxide (Magnesium Hydrox/Alum Hydrox 30 Ml Oral.Susp) 30 ml PO Q6H PRN PRN Reason: Heartburn/Nausea Last Admin: 01/01/24 13:24 Dose: 30 ml Apixaban (Apixaban 2.5 Mg Tablet) 7.5 mg PO BID [facility] Last Admin: 01/27/24 08:19 Dose: 7.5 mg Atorvastatin Calcium (Atorvastatin Calcium 40 Mg Tablet) 40 mg PO BEDTIME BERNARDA Last Admin: 01/26/24 22:00 Dose: 40 mg Benztropine Mesylate (Benztropine Mesylate 0.5 Mg Tablet) 0.5 mg PO BID [facility] Last Admin: 01/27/24 08:20 Dose: 0.5 mg Carbamazepine (Carbamazepine Er 100 Mg Tab.Er.12h) 100 mg PO DAILY@1500 [facility] Last Admin: 01/26/24 14:33 Dose: 100 mg Carbamazepine (Carbamazepine Er 100 Mg Tab.Er.12h) 300 mg PO BID [facility] Last Admin: 01/27/24 08:22 Dose: 300 mg Cyanocobalamin (Cyanocobalamin (Vitamin B-12) 100 Mcg Tablet) 100 mcg PO DAILY [facility] Last Admin: 01/27/24 08:21 Dose: 100 mcg Furosemide (Furosemide 20 Mg Tablet) 20 mg PO DAILY [facility]; Protocol Last Admin: 01/27/24 08:20 Dose: 20 mg Insulin Human Lispro (Insulin Lispro 100 Unit/Ml 3 Ml Vial) 0 unit SUBCUT BID [facility]; Protocol Last Admin: 01/27/24 08:25 Dose: Not Given Magnesium Hydroxide (Milk Of Magnesia 30 Ml Oral.Susp) 30 ml PO DAILY PRN PRN Reason: Constipation Last Admin: 01/24/24 09:13 Dose: 30 ml Magnesium Oxide (Magnesium Oxide 400 Mg Tablet) 400 mg PO DAILY [facility] Last Admin: 01/27/24 08:19 Dose: 400 mg Melatonin (Melatonin 3 Mg Tablet) 9 mg PO BEDTIME PRN PRN Reason: Insomnia Last Admin: 01/22/24 20:41 Dose: 9 mg Metoprolol Succinate (Metoprolol Succinate Er 25 Mg Tab.Er.24h) 25 mg PO DAILY [facility]; Protocol Last Admin: 01/27/24 08:21 Dose: 25 mg Nicotine Polacrilex (Nicotine Polacrilex 2 Mg Gum) 2 mg BUCCAL Q2H PRN PRN Reason: Nicotine Cravings Pt Own(Dulaglutide [ Trulicity] 1.5 Mg/0. 5 Ml Pen Injector) 1.5 mg SUBCUT Th [facility] Last Admin: 01/21/24 10:55 Dose: 1.5 mg Omeprazole (Omeprazole 20 Mg Capsule.Dr) 20 mg PO DAILY@0630 [facility] Last Admin: 01/27/24 07:00 Dose: 20 mg Ondansetron HCl (Ondansetron Odt 4 Mg Tab.Rapdis) 4 mg TRANSLINGU Q6H PRN PRN Reason: Nausea Last Admin: 01/25/24 07:45 Dose: 4 mg Polyethylene Glycol (Polyethylene Glycol 3350 17 Gm Powd.Pack) 17 gm PO DAILY PRN PRN Reason: Constipation Last Admin: 01/24/24 09:17 Dose: 17 gm Pyridoxine HCl (Pyridoxine Hcl (Vitamin B6) 50 Mg Tablet) 25 mg PO DAILY [facility] Last Admin: 01/27/24 08:22 Dose: 25 mg Quetiapine Fumarate (Quetiapine Fumarate 25 Mg Tablet) 25 mg PO TID PRN PRN Reason: anxieety Last Admin: 01/24/24 00:59 Dose: 25 mg Quetiapine Fumarate (Quetiapine Fumarate 300 Mg Tablet) 300 mg PO BEDTIME [facility] Last Admin: 01/26/24 21:59 Dose: 300 mg Sodium Biphosphate/Sodium Phosphate (Sodium Phosphate,[place]-Dibasic 133 Ml Enema) 133 ml SD ONCE PRN PRN Reason: Constipation Last Admin: 01/18/24 06:30 Dose: 133 ml Thyroid (Thyroid,Pork 30 Mg Tablet) 120 mg PO DAILY@0630 [facility] Last Admin: 01/27/24 06:36 Dose: 120 mg Trazodone HCl (Trazodone Hcl 50 Mg Tablet) 50 mg PO BEDTIME MRX1 PRN PRN Reason: insomnia Last Admin: 01/23/24 21:26 Dose: 50 mg Vitamin D (Cholecalciferol (Vitamin D3) 25 Mcg Tablet) 50 mcg PO DAILY [facility] Last Admin: 01/27/24 08:21 Dose: 50 mcg Allergies Allergies Allergy/AdvReac Type Severity Reaction Status Date / Time amoxicillin Allergy Unknown Unknown Uncoded 12/25/23 13:21 Pt states no food allergy Allergy Unknown Unknown Uncoded 12/25/23 13:21 Assessment & Plan Assessment & Plan (1) Bipolar affective disorder, manic, severe, with psychotic behavior: Status: Acute Code(s): F31.2 - Bipolar disorder, current episode manic severe with psychotic features Assessment and Plan: r/o schizoaffective bipolar type (2) PTSD (post-traumatic stress disorder): Status: Acute Code(s): F43.10 - Post-traumatic stress disorder, unspecified Plan 12/28: taper VPA and lamictal; start tegretol instead. do not restart caplyta; start abilify instead (had been on 20 mg in the past). ambien while hospitalized only for sleep. continue cogentin 0.5 BID and seroquel 25 TID PRN for now. continue porcine thyroid hormone. 12/29: DC lamictal entirely. increase abilify to 10 QHS. otherwise continue current mgmt. less verbose and voluble than yesterday. 12/30: increase tegretol to 200 BID, decrease VPA to 500 QHS. will discuss abilify versus vraylar with pt. grossly psychotic today. 12/31: DC VPA. declining vraylar, insisting on staying on abilify. becca slightly improved. 01/01: improved manic Sx. continue current mgmt. prefers to stay at abilify 10 for now. 01/02: remains mildly improved. increase abilify to 15 mg tonight. continue regimen otherwise. 01/03: increase abilify to 20 mg QHS. remains highly impaired, but mildly improved from earlier in stay. continue current mgmt otherwise. 01/04 continue tx. some paranoia present but accepting tx. 01/06: continue current tx plan. 01/07: continues paranoid about going home. Requesting increase in ambien. Ambien increased to 10mg PO bedtime. 01/08: Patient reports feeling good today; reports improved sleep with taking trazodone last evening. however refused ambien despite asking for increase. Pt requesting to have magnesium changed to daily. Continues focused on people trying to harm her. 01/09: continue current tx plan. 01/10: increase abilify to 30 mg daily. check labs tonight. not as improved on current regimen as had been hoped. 01/11: tegretol 8.6 (5-12). increase tegretol to 300 BID. continues manic, paranoid delusions. 01/12: as for yesterday in presentation. c/o poor sleep, grogginess in morning. agrees to increase HS seroquel and DC trazodone. 01/13: slept better, thoughts slower, feels starting to improve. continue current mgmt. 01/14: poor sleep, asking for increased seroquel available at HS. paranoid delusions continue. incr HS seroquel PRNs. 01/16/2024: No changes. Continue current regimen. 01/16: increase night time seroquel to 75mg scheduled 01/17: continue current mgmt. remains gradually improving. check labs tomorrow night. 01/18: inconsistent day to day. today more paranoid and delusional content. check labs tonight, if historical dosing is any guide will likely increase tegretol tomorrow. reports having slept well last night for the first time since admission. 01/19: tegretol 9.1. increase dosing to 400 BID as of today. remains attenuated manic. continue current mgmt otherwise. 01/20: a shade improved from yesterday. split tegretol 200/200/400. otherwise continue current mgmt. 01/21: notably improved. continue current mgmt aside from decrease cogentin 0.5 BID to 0.25 BID. 01/23/2024: In an effort to maximize Tegretol dosing and adherence, will change from total daily dose 800 mg down to total daily dose 700 mg (300 mg morning and 400 mg at bedtime), as patient is currently declining 400 mg in the morning, but accepting 400 mg at bedtime. Otherwise no changes 01/23: no changes 01/24: per pt request, tegretol dosing changed to 300/100/300. the decision is made to DC abilify due to lack of progress and return to seroquel at HS. initial dosing 200 mg, to titrate as indicated. 3-day up 01/26. 01/25: improved sleep, but still disrupted. increase HS seroquel to 300 mg. c/o hand tremor, increase cogentin back to 0.5 BID. gradual daily trend of improvement. 3-day up tomorrow. 01/26: rescinded 3-day notice. wants to DC thursday. refusing tegretol dose increase or labs tomorrow night, says she'll see Dr. Mcdonald and discuss with him. worsening paranoid delusions. Reason for continued inpatient stay Substantial Risk for: inability to function and rapid decompensation Time Spent With Patient Time: Total time managing care of this patient today __25__ minutes.
[2024-01-27] MEDS: QUEtiapine Fumarate 25 MG TABLET PO (14:47)
[2024-01-27] MEDS: carBAMazepine ER 100 MG TAB.ER.12H PO (14:50)
[2024-01-27 20:00] VITALS: BP 114/75; PULSE 93; RESP 18; TEMP 36.1; O2SAT 97
[2024-01-27] MEDS: Atorvastatin Calcium 40 MG TABLET PO (21:24)
[2024-01-27] MEDS: QUEtiapine Fumarate 300 MG TABLET PO (21:24)
[2024-01-28] MEDS: Thyroid,Pork 30 MG TABLET 120 MG PO (05:42)
[2024-01-28] MEDS: Omeprazole 20 MG CAPSULE.DR PO (06:23)
[2024-01-28 07:00] VITALS: BMI 35.0
[2024-01-28 07:30] VITALS: BP 156/71; PULSE 94; RESP 14; TEMP 36.8; O2SAT 96
[2024-01-28 07:48] LABS: Glucose, Whole Blood 139 mg/dL (60-115)
[2024-01-28] MEDS: Apixaban 2.5 MG TABLET 7.5 MG PO ×2 (08:18→21:03)
[2024-01-28 08:19] VITALS: BP 156/71
[2024-01-28] MEDS: Metoprolol Succinate ER 25 MG TAB.ER.24H PO (08:19)
[2024-01-28] MEDS: Magnesium Oxide 400 MG TABLET PO (08:19)
[2024-01-28] MEDS: Furosemide 20 MG TABLET PO (08:19)
[2024-01-28] MEDS: Benztropine Mesylate 0.5 MG TABLET PO ×2 (08:19→21:03)
[2024-01-28] MEDS: Cyanocobalamin (Vitamin B-12) 100 MCG TABLET PO (08:19)
[2024-01-28] MEDS: Cholecalciferol (Vitamin D3) 25 MCG TABLET 50 MCG PO (08:20)
[2024-01-28] MEDS: Pyridoxine HCl (Vitamin B6) 50 MG TABLET 25 MG PO (08:20)
[2024-01-28] MEDS: carBAMazepine ER 100 MG TAB.ER.12H 300 MG PO ×3 (09:29→21:03)
[2024-01-28] MEDS: DULAGLUTIDE 1.5 MG/0.5 ML 1.5 EACH SUBCUT (09:49)
[2024-01-28] MEDS: QUEtiapine Fumarate 25 MG TABLET PO (14:07)
[2024-01-28] MEDS: Milk of Magnesia 30 ML ORAL.SUSP PO (15:30)
[2024-01-28] MEDS: polyethylene glycoL 3350 17 GM POWD.PACK PO (15:31)
--- NOTE | 2024-01-28 15:42 | P.PNPSI_ITS ---
Subjective Subjective Date of Service: 01/28/24 Reason For Visit: Mood Disorder Interim History: worse than at any time in the past 2+ weeks. pressured, bizarre, delusional, paranoid. MD informs pt she will not discharge tomorrow and that she should sign a 3-day notice if she would like to leave, which would come due on thursday. MD suggests pt increase tegretol dosing, pt, surprisingly, suggests increasing to 900 mg daily. which is done. per staff, visible, taking meds. social. upset with room change. dismissive, delusional. slept 8 hours. signed 3-day notice. Mental Status Exam Mental Status Exam Narrative: Pt is alert and oriented; behavior is calm, cooperative; dressed in casual attire; eye contact appropriate; Speech is incr rate, amount, loudness. decr latency. paranoid delusions dominant. no SI/HI/AVH expressed. Diagnostics Vital Signs (24Hr): Vital Signs - 24 hr 01/27/24 20:00 01/28/24 07:30 01/28/24 08:19 Temperature 97.0 F 98.2 F Pulse Rate 93 94 Respiratory Rate 18 14 Blood Pressure 114/75 156/71 H 156/71 H Pulse Oximetry 97 96 Oxygen Delivery Method Room Air Room Air BMI result Body Mass Index 35.0 Labs 01/19/24 20:24 01/19/24 20:23 Labs: Laboratory Results - last 48 hr 01/27/24 01/28/24 07:47 07:44 POC Glucose 103 139 H Medications Medications Current Medications Acetaminophen (Acetaminophen 325 Mg Tablet) 650 mg PO Q6H PRN PRN Reason: Headache/Pain Mild Scale (1-3) Last Admin: 01/11/24 03:28 Dose: 325 mg Al Hydroxide/Mg Hydroxide (Magnesium Hydrox/Alum Hydrox 30 Ml Oral.Susp) 30 ml PO Q6H PRN PRN Reason: Heartburn/Nausea Last Admin: 01/01/24 13:24 Dose: 30 ml Apixaban (Apixaban 2.5 Mg Tablet) 7.5 mg PO BID [facility] Last Admin: 01/28/24 08:18 Dose: 7.5 mg Atorvastatin Calcium (Atorvastatin Calcium 40 Mg Tablet) 40 mg PO BEDTIME BERNARDA Last Admin: 01/27/24 21:24 Dose: 40 mg Benztropine Mesylate (Benztropine Mesylate 0.5 Mg Tablet) 0.5 mg PO BID [facility] Last Admin: 01/28/24 08:19 Dose: 0.5 mg Carbamazepine (Carbamazepine Er 100 Mg Tab.Er.12h) 300 mg PO TID [facility] Last Admin: 01/28/24 14:07 Dose: 300 mg Cyanocobalamin (Cyanocobalamin (Vitamin B-12) 100 Mcg Tablet) 100 mcg PO DAILY [facility] Last Admin: 01/28/24 08:19 Dose: 100 mcg Furosemide (Furosemide 20 Mg Tablet) 20 mg PO DAILY [facility]; Protocol Last Admin: 01/28/24 08:19 Dose: 20 mg Insulin Human Lispro (Insulin Lispro 100 Unit/Ml 3 Ml Vial) 0 unit SUBCUT BID [facility]; Protocol Last Admin: 01/28/24 08:30 Dose: Not Given Magnesium Hydroxide (Milk Of Magnesia 30 Ml Oral.Susp) 30 ml PO DAILY PRN PRN Reason: Constipation Last Admin: 01/28/24 15:30 Dose: 30 ml Magnesium Oxide (Magnesium Oxide 400 Mg Tablet) 400 mg PO DAILY [facility] Last Admin: 01/28/24 08:19 Dose: 400 mg Melatonin (Melatonin 3 Mg Tablet) 9 mg PO BEDTIME PRN PRN Reason: Insomnia Last Admin: 01/22/24 20:41 Dose: 9 mg Metoprolol Succinate (Metoprolol Succinate Er 25 Mg Tab.Er.24h) 25 mg PO DAILY [facility]; Protocol Last Admin: 01/28/24 08:19 Dose: 25 mg Nicotine Polacrilex (Nicotine Polacrilex 2 Mg Gum) 2 mg BUCCAL Q2H PRN PRN Reason: Nicotine Cravings Pt Own(Dulaglutide [ Trulicity] 1.5 Mg/0. 5 Ml Pen Injector) 1.5 mg SUBCUT Th [facility] Last Admin: 01/28/24 09:49 Dose: 1.5 mg Omeprazole (Omeprazole 20 Mg Capsule.Dr) 20 mg PO DAILY@0630 [facility] Last Admin: 01/28/24 06:23 Dose: 20 mg Ondansetron HCl (Ondansetron Odt 4 Mg Tab.Rapdis) 4 mg TRANSLINGU Q6H PRN PRN Reason: Nausea Last Admin: 01/25/24 07:45 Dose: 4 mg Polyethylene Glycol (Polyethylene Glycol 3350 17 Gm Powd.Pack) 17 gm PO DAILY PRN PRN Reason: Constipation Last Admin: 01/28/24 15:31 Dose: 17 gm Pyridoxine HCl (Pyridoxine Hcl (Vitamin B6) 50 Mg Tablet) 25 mg PO DAILY [facility] Last Admin: 01/28/24 08:20 Dose: 25 mg Quetiapine Fumarate (Quetiapine Fumarate 25 Mg Tablet) 25 mg PO TID PRN PRN Reason: anxieety Last Admin: 01/28/24 14:07 Dose: 25 mg Quetiapine Fumarate (Quetiapine Fumarate 300 Mg Tablet) 300 mg PO BEDTIME [facility] Last Admin: 01/27/24 21:24 Dose: 300 mg Sodium Biphosphate/Sodium Phosphate (Sodium Phosphate,[place]-Dibasic 133 Ml Enema) 133 ml PA ONCE PRN PRN Reason: Constipation Last Admin: 01/18/24 06:30 Dose: 133 ml Thyroid (Thyroid,Pork 30 Mg Tablet) 120 mg PO DAILY@0630 [facility] Last Admin: 01/28/24 05:42 Dose: 120 mg Trazodone HCl (Trazodone Hcl 50 Mg Tablet) 50 mg PO BEDTIME MRX1 PRN PRN Reason: insomnia Last Admin: 01/23/24 21:26 Dose: 50 mg Vitamin D (Cholecalciferol (Vitamin D3) 25 Mcg Tablet) 50 mcg PO DAILY [facility] Last Admin: 01/28/24 08:20 Dose: 50 mcg Allergies Allergies Allergy/AdvReac Type Severity Reaction Status Date / Time amoxicillin Allergy Unknown Verified 01/28/24 09:22 Assessment & Plan Assessment & Plan (1) Bipolar affective disorder, manic, severe, with psychotic behavior: Status: Acute Code(s): F31.2 - Bipolar disorder, current episode manic severe with psychotic features Assessment and Plan: r/o schizoaffective bipolar type (2) PTSD (post-traumatic stress disorder): Status: Acute Code(s): F43.10 - Post-traumatic stress disorder, unspecified Plan 12/28: taper VPA and lamictal; start tegretol instead. do not restart caplyta; start abilify instead (had been on 20 mg in the past). ambien while hospitalized only for sleep. continue cogentin 0.5 BID and seroquel 25 TID PRN for now. continue porcine thyroid hormone. 12/29: DC lamictal entirely. increase abilify to 10 QHS. otherwise continue current mgmt. less verbose and voluble than yesterday. 12/30: increase tegretol to 200 BID, decrease VPA to 500 QHS. will discuss abilify versus vraylar with pt. grossly psychotic today. 12/31: DC VPA. declining vraylar, insisting on staying on abilify. becca slightly improved. 01/01: improved manic Sx. continue current mgmt. prefers to stay at abilify 10 for now. 01/02: remains mildly improved. increase abilify to 15 mg tonight. continue regimen otherwise. 01/03: increase abilify to 20 mg QHS. remains highly impaired, but mildly improved from earlier in stay. continue current mgmt otherwise. 01/04 continue tx. some paranoia present but accepting tx. 01/06: continue current tx plan. 01/07: continues paranoid about going home. Requesting increase in ambien. Ambien increased to 10mg PO bedtime. 01/08: Patient reports feeling good today; reports improved sleep with taking trazodone last evening. however refused ambien despite asking for increase. Pt requesting to have magnesium changed to daily. Continues focused on people trying to harm her. 01/09: continue current tx plan. 01/10: increase abilify to 30 mg daily. check labs tonight. not as improved on current regimen as had been hoped. 01/11: tegretol 8.6 (5-12). increase tegretol to 300 BID. continues manic, paranoid delusions. 01/12: as for yesterday in presentation. c/o poor sleep, grogginess in morning. agrees to increase HS seroquel and DC trazodone. 01/13: slept better, thoughts slower, feels starting to improve. continue current mgmt. 01/14: poor sleep, asking for increased seroquel available at HS. paranoid delusions continue. incr HS seroquel PRNs. 01/16/2024: No changes. Continue current regimen. 01/16: increase night time seroquel to 75mg scheduled 01/17: continue current mgmt. remains gradually improving. check labs tomorrow night. 01/18: inconsistent day to day. today more paranoid and delusional content. check labs tonight, if historical dosing is any guide will likely increase tegretol tomorrow. reports having slept well last night for the first time since admission. 01/19: tegretol 9.1. increase dosing to 400 BID as of today. remains attenuated manic. continue current mgmt otherwise. 01/20: a shade improved from yesterday. split tegretol 200/200/400. otherwise continue current mgmt. 01/21: notably improved. continue current mgmt aside from decrease cogentin 0.5 BID to 0.25 BID. 01/23/2024: In an effort to maximize Tegretol dosing and adherence, will change from total daily dose 800 mg down to total daily dose 700 mg (300 mg morning and 400 mg at bedtime), as patient is currently declining 400 mg in the morning, but accepting 400 mg at bedtime. Otherwise no changes 01/23: no changes 01/24: per pt request, tegretol dosing changed to 300/100/300. the decision is made to DC abilify due to lack of progress and return to seroquel at HS. initial dosing 200 mg, to titrate as indicated. 3-day up 01/26. 01/25: improved sleep, but still disrupted. increase HS seroquel to 300 mg. c/o hand tremor, increase cogentin back to 0.5 BID. gradual daily trend of improvement. 3-day up tomorrow. 01/26: rescinded 3-day notice. wants to DC thursday. refusing tegretol dose increase or labs tomorrow night, says she'll see Dr. Mcdonald and discuss with him. worsening paranoid delusions. 01/27: informed she will not discharge tomorrow, signed 3-day notice again. agreed to increase tegretol to 300 TID. states she slept well last night. continue current regimen otherwise, 3-day up 02/01. Reason for continued inpatient stay Substantial Risk for: inability to function and rapid decompensation Time Spent With Patient Time: Total time managing care of this patient today __25__ minutes.
[2024-01-28 20:57] VITALS: BP 162/90; PULSE 103; RESP 18; TEMP 36.8; O2SAT 91
[2024-01-28 20:57] LABS: Glucose, Whole Blood 112 mg/dL (60-115)
[2024-01-28] MEDS: Atorvastatin Calcium 40 MG TABLET PO (21:03)
[2024-01-28] MEDS: QUEtiapine Fumarate 300 MG TABLET PO (21:04)
--- NOTE | 2024-01-28 21:51 | PC.NURSE ---
According to day RN, pt retracted 3 day and put in another 3 day which is up on 02/01.
[2024-01-29] MEDS: Omeprazole 20 MG CAPSULE.DR PO (06:32)
[2024-01-29] MEDS: Thyroid,Pork 30 MG TABLET 120 MG PO (06:32)
[2024-01-29 07:40] VITALS: BP 142/79; PULSE 88; RESP 16; TEMP 36.8; O2SAT 93
[2024-01-29 08:03] LABS: Glucose, Whole Blood 109 mg/dL (60-115)
[2024-01-29] MEDS: Pyridoxine HCl (Vitamin B6) 50 MG TABLET 25 MG PO (08:19)
[2024-01-29] MEDS: Cyanocobalamin (Vitamin B-12) 100 MCG TABLET PO (08:20)
[2024-01-29] MEDS: Furosemide 20 MG TABLET PO (08:21)
[2024-01-29] MEDS: Metoprolol Succinate ER 25 MG TAB.ER.24H PO (08:21)
[2024-01-29] MEDS: carBAMazepine ER 100 MG TAB.ER.12H 300 MG PO ×3 (08:21→20:48)
[2024-01-29] MEDS: Cholecalciferol (Vitamin D3) 25 MCG TABLET 50 MCG PO (08:22)
[2024-01-29] MEDS: Apixaban 2.5 MG TABLET 7.5 MG PO ×2 (08:22→20:48)
[2024-01-29] MEDS: Benztropine Mesylate 0.5 MG TABLET PO ×2 (08:23→20:48)
[2024-01-29] MEDS: Magnesium Oxide 400 MG TABLET PO (08:23)
[2024-01-29] MEDS: QUEtiapine Fumarate 25 MG TABLET PO (14:54)
--- NOTE | 2024-01-29 15:27 | HO.PSYCHPN ---
Subjective Subjective Date of Service: 01/29/24 Reason For Visit: Mood Disorder Interim History: substantially improved from yesterday, less voluble, more organized. remains with prominent paranoid delusions, but headed in the right direction for the first time in days. encouraged to continue tegretol 900. reports she slept better and she's been slowed down by the tegretol dosing increase, which she appreciates as a good thing. hoping to DC before xmas, three-day up thursday. per staff, taking meds. expansive, labile. paranoid delusions. slept 8 hours. Mental Status Exam Mental Status Exam Narrative: Pt is alert and oriented; behavior is calm, cooperative; dressed in casual attire; eye contact appropriate; Speech is incr rate; nml amount, loudness. decr latency. paranoid delusions. no SI/HI/AVH expressed. Diagnostics Vital Signs (24Hr): Vital Signs - 24 hr 01/28/24 20:57 01/29/24 07:40 Temperature 98.2 F 98.2 F Pulse Rate 103 H 88 Respiratory Rate 18 16 Blood Pressure 162/90 H 142/79 H Pulse Oximetry 91 L 93 Oxygen Delivery Method Room Air Room Air BMI result Body Mass Index 35.0 Labs 01/19/24 20:24 01/19/24 20:23 Labs: Laboratory Results - last 48 hr 01/28/24 01/28/24 01/29/24 07:44 20:50 07:57 POC Glucose 139 H 112 109 Medications Medications Current Medications Acetaminophen (Acetaminophen 325 Mg Tablet) 650 mg PO Q6H PRN PRN Reason: Headache/Pain Mild Scale (1-3) Last Admin: 01/11/24 03:28 Dose: 325 mg Al Hydroxide/Mg Hydroxide (Magnesium Hydrox/Alum Hydrox 30 Ml Oral.Susp) 30 ml PO Q6H PRN PRN Reason: Heartburn/Nausea Last Admin: 01/01/24 13:24 Dose: 30 ml Apixaban (Apixaban 2.5 Mg Tablet) 7.5 mg PO BID BERNARDA Last Admin: 01/29/24 08:22 Dose: 7.5 mg Atorvastatin Calcium (Atorvastatin Calcium 40 Mg Tablet) 40 mg PO BEDTIME [facility]ERNARDA Last Admin: 01/28/24 21:03 Dose: 40 mg Benztropine Mesylate (Benztropine Mesylate 0.5 Mg Tablet) 0.5 mg PO BID [facility] [place] Last Admin: 01/29/24 08:23 Dose: 0.5 mg Carbamazepine (Carbamazepine Er 100 Mg Tab.Er.12h) 300 mg PO TID [facility] [place] Last Admin: 01/29/24 14:29 Dose: 300 mg Cyanocobalamin (Cyanocobalamin (Vitamin B-12) 100 Mcg Tablet) 100 mcg PO DAILY [facility] [place] Last Admin: 01/29/24 08:20 Dose: 100 mcg Furosemide (Furosemide 20 Mg Tablet) 20 mg PO DAILY [facility] [place]; Protocol Last Admin: 01/29/24 08:21 Dose: 20 mg Insulin Human Lispro (Insulin Lispro 100 Unit/Ml 3 Ml Vial) 0 unit SUBCUT BID [facility] [place]; Protocol Last Admin: 01/29/24 08:27 Dose: Not Given Magnesium Hydroxide (Milk Of Magnesia 30 Ml Oral.Susp) 30 ml PO DAILY PRN PRN Reason: Constipation Last Admin: 01/28/24 15:30 Dose: 30 ml Magnesium Oxide (Magnesium Oxide 400 Mg Tablet) 400 mg PO DAILY [facility] [place] Last Admin: 01/29/24 08:23 Dose: 400 mg Melatonin (Melatonin 3 Mg Tablet) 9 mg PO BEDTIME PRN PRN Reason: Insomnia Last Admin: 01/22/24 20:41 Dose: 9 mg Metoprolol Succinate (Metoprolol Succinate Er 25 Mg Tab.Er.24h) 25 mg PO DAILY [facility] [place]; Protocol Last Admin: 01/29/24 08:21 Dose: 25 mg Nicotine Polacrilex (Nicotine Polacrilex 2 Mg Gum) 2 mg BUCCAL Q2H PRN PRN Reason: Nicotine Cravings Pt Own(Dulaglutide [ Trulicity] 1.5 Mg/0. 5 Ml Pen Injector) 1.5 mg SUBCUT Th [facility] [place] Last Admin: 01/28/24 09:49 Dose: 1.5 mg Omeprazole (Omeprazole 20 Mg Capsule.Dr) 20 mg PO DAILY@0630 [facility] [place] Last Admin: 01/29/24 06:32 Dose: 20 mg Ondansetron HCl (Ondansetron Odt 4 Mg Tab.Rapdis) 4 mg TRANSLINGU Q6H PRN PRN Reason: Nausea Last Admin: 01/25/24 07:45 Dose: 4 mg Polyethylene Glycol (Polyethylene Glycol 3350 17 Gm Powd.Pack) 17 gm PO DAILY PRN PRN Reason: Constipation Last Admin: 01/28/24 15:31 Dose: 17 gm Pyridoxine HCl (Pyridoxine Hcl (Vitamin B6) 50 Mg Tablet) 25 mg PO DAILY [facility] [place] Last Admin: 01/29/24 08:19 Dose: 25 mg Quetiapine Fumarate (Quetiapine Fumarate 25 Mg Tablet) 25 mg PO TID PRN PRN Reason: anxieety Last Admin: 01/29/24 14:54 Dose: 25 mg Quetiapine Fumarate (Quetiapine Fumarate 300 Mg Tablet) 300 mg PO BEDTIME [facility] [place] Last Admin: 01/28/24 21:04 Dose: 300 mg Sodium Biphosphate/Sodium Phosphate (Sodium Phosphate,[place]-Dibasic 133 Ml Enema) 133 ml [place] ONCE PRN PRN Reason: Constipation Last Admin: 01/18/24 06:30 Dose: 133 ml Thyroid (Thyroid,Pork 30 Mg Tablet) 120 mg PO DAILY@0630 [facility] [place] Last Admin: 01/29/24 06:32 Dose: 120 mg Trazodone HCl (Trazodone Hcl 50 Mg Tablet) 50 mg PO BEDTIME MRX1 PRN PRN Reason: insomnia Last Admin: 01/23/24 21:26 Dose: 50 mg Vitamin D (Cholecalciferol (Vitamin D3) 25 Mcg Tablet) 50 mcg PO DAILY [facility] [place] Last Admin: 01/29/24 08:22 Dose: 50 mcg Allergies Allergies Allergy/AdvReac Type Severity Reaction Status Date / Time amoxicillin Allergy Unknown Verified 01/28/24 09:22 Assessment & Plan Assessment & Plan (1) Bipolar affective disorder, manic, severe, with psychotic behavior: Status: Acute Code(s): F31.2 - Bipolar disorder, current episode manic severe with psychotic features Assessment and Plan: r/o schizoaffective bipolar type (2) PTSD (post-traumatic stress disorder): Status: Acute Code(s): F43.10 - Post-traumatic stress disorder, unspecified Plan 12/28: taper VPA and lamictal; start tegretol instead. do not restart caplyta; start abilify instead (had been on 20 mg in the past). ambien while hospitalized only for sleep. continue cogentin 0.5 BID and seroquel 25 TID PRN for now. continue porcine thyroid hormone. 12/29: DC lamictal entirely. increase abilify to 10 QHS. otherwise continue current mgmt. less verbose and voluble than yesterday. 12/30: increase tegretol to 200 BID, decrease VPA to 500 QHS. will discuss abilify versus vraylar with pt. grossly psychotic today. 12/31: DC VPA. declining vraylar, insisting on staying on abilify. becca slightly improved. 01/01: improved manic Sx. continue current mgmt. prefers to stay at abilify 10 for now. 01/02: remains mildly improved. increase abilify to 15 mg tonight. continue regimen otherwise. 01/03: increase abilify to 20 mg QHS. remains highly impaired, but mildly improved from earlier in stay. continue current mgmt otherwise. 01/04 continue tx. some paranoia present but accepting tx. 01/06: continue current tx plan. 01/07: continues paranoid about going home. Requesting increase in ambien. Ambien increased to 10mg PO bedtime. 01/08: Patient reports feeling good today; reports improved sleep with taking trazodone last evening. however refused ambien despite asking for increase. Pt requesting to have magnesium changed to daily. Continues focused on people trying to harm her. 01/09: continue current tx plan. 01/10: increase abilify to 30 mg daily. check labs tonight. not as improved on current regimen as had been hoped. 01/11: tegretol 8.6 (5-12). increase tegretol to 300 BID. continues manic, paranoid delusions. 01/12: as for yesterday in presentation. c/o poor sleep, grogginess in morning. agrees to increase HS seroquel and DC trazodone. 01/13: slept better, thoughts slower, feels starting to improve. continue current mgmt. 01/14: poor sleep, asking for increased seroquel available at HS. paranoid delusions continue. incr HS seroquel PRNs. 01/16/2024: No changes. Continue current regimen. 01/16: increase night time seroquel to 75mg scheduled 01/17: continue current mgmt. remains gradually improving. check labs tomorrow night. 01/18: inconsistent day to day. today more paranoid and delusional content. check labs tonight, if historical dosing is any guide will likely increase tegretol tomorrow. reports having slept well last night for the first time since admission. 01/19: tegretol 9.1. increase dosing to 400 BID as of today. remains attenuated manic. continue current mgmt otherwise. 01/20: a shade improved from yesterday. split tegretol 200/200/400. otherwise continue current mgmt. 01/21: notably improved. continue current mgmt aside from decrease cogentin 0.5 BID to 0.25 BID. 01/23/2024: In an effort to maximize Tegretol dosing and adherence, will change from total daily dose 800 mg down to total daily dose 700 mg (300 mg morning and 400 mg at bedtime), as patient is currently declining 400 mg in the morning, but accepting 400 mg at bedtime. Otherwise no changes 01/23: no changes 01/24: per pt request, tegretol dosing changed to 300/100/300. the decision is made to DC abilify due to lack of progress and return to seroquel at HS. initial dosing 200 mg, to titrate as indicated. 3-day up 01/26. 01/25: improved sleep, but still disrupted. increase HS seroquel to 300 mg. c/o hand tremor, increase cogentin back to 0.5 BID. gradual daily trend of improvement. 3-day up tomorrow. 01/26: rescinded 3-day notice. wants to DC thursday. refusing tegretol dose increase or labs tomorrow night, says she'll see Dr. Mcdonald and discuss with him. worsening paranoid delusions. 01/27: informed she will not discharge tomorrow, signed 3-day notice again. agreed to increase tegretol to 300 TID. states she slept well last night. continue current regimen otherwise, 3-day up 02/01. 01/28: slept well last night, mood improved (slowed). continue current mgmt. 3-day up 02/01, planning to discharge that day. Reason for continued inpatient stay Substantial Risk for: inability to function and rapid decompensation Time Spent With Patient Time: Total time managing care of this patient today __25__ minutes.
[2024-01-29 19:40] VITALS: BP 134/67; PULSE 90; RESP 18; TEMP 36.3; O2SAT 94
[2024-01-29] MEDS: Atorvastatin Calcium 40 MG TABLET PO (20:48)
[2024-01-29] MEDS: QUEtiapine Fumarate 300 MG TABLET PO (20:48)
--- NOTE | 2024-01-29 22:55 | PC.NURSE ---
Pt refused her evening POC stating I only do it once a day .
[2024-01-30] MEDS: QUEtiapine Fumarate 25 MG TABLET PO ×2 (00:26→14:55)
[2024-01-30] MEDS: Omeprazole 20 MG CAPSULE.DR PO (06:26)
[2024-01-30] MEDS: Thyroid,Pork 30 MG TABLET 120 MG PO (06:26)
[2024-01-30 07:15] VITALS: BP 148/69; PULSE 88; RESP 16; TEMP 36.4; O2SAT 96
[2024-01-30 07:57] LABS: Glucose, Whole Blood 143 mg/dL (60-115)
[2024-01-30] MEDS: Pyridoxine HCl (Vitamin B6) 50 MG TABLET 25 MG PO (08:38)
[2024-01-30 08:39] VITALS: BP 148/69; PULSE 88
[2024-01-30] MEDS: Metoprolol Succinate ER 25 MG TAB.ER.24H PO (08:39)
[2024-01-30] MEDS: Furosemide 20 MG TABLET PO (08:39)
[2024-01-30] MEDS: carBAMazepine ER 100 MG TAB.ER.12H 300 MG PO ×3 (08:41→21:39)
[2024-01-30] MEDS: Magnesium Oxide 400 MG TABLET PO (08:41)
[2024-01-30] MEDS: Cyanocobalamin (Vitamin B-12) 100 MCG TABLET PO (08:42)
[2024-01-30] MEDS: Cholecalciferol (Vitamin D3) 25 MCG TABLET 50 MCG PO (08:42)
[2024-01-30] MEDS: Benztropine Mesylate 0.5 MG TABLET PO ×2 (08:42→21:39)
[2024-01-30] MEDS: Apixaban 2.5 MG TABLET 7.5 MG PO ×2 (08:43→21:39)
[2024-01-30] MEDS: Milk of Magnesia 30 ML ORAL.SUSP PO (11:32)
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
[2024-01-30 19:23] VITALS: BP 147/68; PULSE 95; RESP 16; TEMP 36.8; O2SAT 98
--- NOTE | 2024-01-30 21:10 | PC.NURSE ---
Pt refused POC this evening again.
[2024-01-30] MEDS: QUEtiapine Fumarate 300 MG TABLET PO (21:40)
[2024-01-30] MEDS: Atorvastatin Calcium 40 MG TABLET PO (21:40)
[2024-01-31] MEDS: Omeprazole 20 MG CAPSULE.DR PO (06:09)
[2024-01-31] MEDS: Thyroid,Pork 30 MG TABLET 120 MG PO (06:09)
[2024-01-31 07:59] LABS: Glucose, Whole Blood 101 mg/dL (60-115)
[2024-01-31 08:00] VITALS: BP 136/71; PULSE 88; RESP 16; TEMP 36.9; O2SAT 94
[2024-01-31] MEDS: Cholecalciferol (Vitamin D3) 25 MCG TABLET 50 MCG PO (08:31)
[2024-01-31] MEDS: Cyanocobalamin (Vitamin B-12) 100 MCG TABLET PO (08:31)
[2024-01-31] MEDS: Benztropine Mesylate 0.5 MG TABLET PO ×2 (08:31→21:27)
[2024-01-31] MEDS: Pyridoxine HCl (Vitamin B6) 50 MG TABLET 25 MG PO (08:31)
[2024-01-31] MEDS: carBAMazepine ER 100 MG TAB.ER.12H 300 MG PO ×3 (08:33→21:26)
[2024-01-31] MEDS: Furosemide 20 MG TABLET PO (08:33)
[2024-01-31] MEDS: Magnesium Oxide 400 MG TABLET PO (08:33)
[2024-01-31] MEDS: Metoprolol Succinate ER 25 MG TAB.ER.24H PO (08:33)
[2024-01-31] MEDS: Apixaban 2.5 MG TABLET 7.5 MG PO ×2 (08:33→21:27)
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
[2024-01-31] MEDS: Milk of Magnesia 30 ML ORAL.SUSP PO (14:36)
[2024-01-31] MEDS: polyethylene glycoL 3350 17 GM POWD.PACK PO (14:36)
[2024-01-31 20:00] VITALS: BP 126/74; PULSE 82; RESP 16; TEMP 36.7; O2SAT 96
[2024-01-31] MEDS: QUEtiapine Fumarate 300 MG TABLET PO (21:26)
[2024-01-31] MEDS: Atorvastatin Calcium 40 MG TABLET PO (21:27)
[2024-01-31] MEDS: clonazePAM 1 MG TABLET PO (21:32)
[2024-02-01] MEDS: Omeprazole 20 MG CAPSULE.DR PO (06:30)
[2024-02-01] MEDS: Thyroid,Pork 30 MG TABLET 120 MG PO (06:30)
[2024-02-01 07:45] VITALS: BP 115/56; PULSE 83; RESP 16; TEMP 36.4; O2SAT 96
[2024-02-01 07:59] LABS: Glucose, Whole Blood 110 mg/dL (60-115)
[2024-02-01 08:44] LABS: Carbamazepine Tegretol 9.4 mcg/mL (5.0-12.0)
[2024-02-01] MEDS: Cholecalciferol (Vitamin D3) 25 MCG TABLET 50 MCG PO (09:11)
[2024-02-01 09:12] VITALS: BP 115/56; PULSE 83
[2024-02-01] MEDS: Metoprolol Succinate ER 25 MG TAB.ER.24H PO (09:12)
[2024-02-01] MEDS: carBAMazepine ER 100 MG TAB.ER.12H 300 MG PO ×3 (09:12→21:38)
[2024-02-01] MEDS: Magnesium Oxide 400 MG TABLET PO (09:12)
[2024-02-01] MEDS: Apixaban 2.5 MG TABLET 7.5 MG PO ×2 (09:12→21:39)
[2024-02-01] MEDS: Pyridoxine HCl (Vitamin B6) 50 MG TABLET 25 MG PO (09:13)
[2024-02-01] MEDS: Benztropine Mesylate 0.5 MG TABLET PO ×2 (09:13→21:38)
[2024-02-01] MEDS: Cyanocobalamin (Vitamin B-12) 100 MCG TABLET PO (09:13)
[2024-02-01 09:14] VITALS: BP 115/56
[2024-02-01] MEDS: Furosemide 20 MG TABLET PO (09:14)
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
[2024-02-01] MEDS: clonazePAM 1 MG TABLET PO (14:39)
[2024-02-01 19:40] VITALS: BP 125/76; PULSE 101; RESP 18; TEMP 37.1; O2SAT 96
[2024-02-01] MEDS: Atorvastatin Calcium 40 MG TABLET PO (21:38)
[2024-02-01] MEDS: QUEtiapine Fumarate 300 MG TABLET PO (21:38)
[2024-02-01] MEDS: Divalproex Sodium ER 500 MG TAB.ER.24H PO (21:48)
--- NOTE | 2024-02-02 03:24 | PC.NURSE ---
Sybil at first refused her Depakote then decided to take the medication so the doctor wont have any reason to take me to court .
[2024-02-02] MEDS: Thyroid,Pork 30 MG TABLET 120 MG PO (06:07)
[2024-02-02] MEDS: Omeprazole 20 MG CAPSULE.DR PO (07:02)
[2024-02-02 07:50] VITALS: BP 146/65; PULSE 93; RESP 18; TEMP 36.2; O2SAT 98
[2024-02-02 08:06] LABS: Glucose, Whole Blood 108 mg/dL (60-115)
[2024-02-02] MEDS: carBAMazepine ER 100 MG TAB.ER.12H 300 MG PO ×3 (08:41→20:59)
[2024-02-02] MEDS: Cholecalciferol (Vitamin D3) 25 MCG TABLET 50 MCG PO (08:42)
[2024-02-02] MEDS: Metoprolol Succinate ER 25 MG TAB.ER.24H PO (08:42)
[2024-02-02] MEDS: Benztropine Mesylate 0.5 MG TABLET PO ×2 (08:42→20:59)
[2024-02-02] MEDS: Furosemide 20 MG TABLET PO (08:42)
[2024-02-02] MEDS: Apixaban 2.5 MG TABLET 7.5 MG PO ×2 (08:43→20:59)
[2024-02-02] MEDS: Magnesium Oxide 400 MG TABLET PO (08:43)
[2024-02-02] MEDS: Cyanocobalamin (Vitamin B-12) 100 MCG TABLET PO (08:43)
[2024-02-02] MEDS: Pyridoxine HCl (Vitamin B6) 50 MG TABLET 25 MG PO (08:43)
--- NOTE | 2024-02-02 09:10 | HO.PSYCHPN ---
Subjective Subjective Date of Service: 02/02/24 Reason For Visit: Mood Disorder Interim History: Met with patient; discussed with team still manic but took depakote last night and today agreed to retract her 3 day. She said told technical report writer that after speaking with her mother she agreed to stay on unit longer until doctors say she's ready for discharge. Otherwise, dancing on the unit. Mental Status Exam Mental Status Exam Narrative: Pt is alert and oriented; behavior is still manic but a little more calm/organized; intermittently hypersexual and intrusive to peers and staff. Pt is not in distress; dressed in casual attire with unkempt hair but adequate hygiene; mood is described as good and affect a little more calm, sometimes expansive; eye contact appropriate; Speech still pressured and but a little easier to talk to; intermittent psychomotor agitation present; thought process can be goal directed; also becomes tangential; Thought content is on various grandiose or paranoid ideations; denies any SI/HI. Seems internally preoccupied. Patients insight and judgment impaired. Diagnostics Vital Signs (24Hr): Vital Signs - 24 hr 02/01/24 09:12 02/01/24 09:14 02/01/24 19:40 Temperature 98.8 F Pulse Rate 83 101 H Respiratory Rate 18 Blood Pressure 115/56 L 115/56 L 125/76 Pulse Oximetry 96 Oxygen Delivery Method Room Air 02/02/24 07:50 Temperature 97.2 F Pulse Rate 93 Respiratory Rate 18 Blood Pressure 146/65 H Pulse Oximetry 98 Oxygen Delivery Method Room Air BMI result Body Mass Index 35.0 Labs 01/19/24 20:24 01/19/24 20:23 Labs: Laboratory Results - last 48 hr 02/01/24 02/01/24 02/02/24 07:52 08:10 07:59 POC Glucose 110 108 Carbamazepine 9.4 Medications Medications Current Medications Acetaminophen (Acetaminophen 325 Mg Tablet) 650 mg PO Q6H PRN PRN Reason: Headache/Pain Mild Scale (1-3) Last Admin: 01/11/24 03:28 Dose: 325 mg Al Hydroxide/Mg Hydroxide (Magnesium Hydrox/Alum Hydrox 30 Ml Oral.Susp) 30 ml PO Q6H PRN PRN Reason: Heartburn/Nausea Last Admin: 01/01/24 13:24 Dose: 30 ml Apixaban (Apixaban 2.5 Mg Tablet) 7.5 mg PO BID [facility] Last Admin: 02/02/24 08:43 Dose: 7.5 mg Atorvastatin Calcium (Atorvastatin Calcium 40 Mg Tablet) 40 mg PO BEDTIME [facility] Last Admin: 02/01/24 21:38 Dose: 40 mg Benztropine Mesylate (Benztropine Mesylate 0.5 Mg Tablet) 0.5 mg PO BID [facility] Last Admin: 02/02/24 08:42 Dose: 0.5 mg Carbamazepine (Carbamazepine Er 100 Mg Tab.Er.12h) 300 mg PO TID [facility] Last Admin: 02/02/24 08:41 Dose: 300 mg Clonazepam (Clonazepam 1 Mg Tablet) 1 mg PO BID PRN PRN Reason: severe anxiety Last Admin: 02/01/24 14:39 Dose: 1 mg Cyanocobalamin (Cyanocobalamin (Vitamin B-12) 100 Mcg Tablet) 100 mcg PO DAILY [facility] Last Admin: 02/02/24 08:43 Dose: 100 mcg Divalproex Sodium (Divalproex Sodium Er 500 Mg Tab.Er.24h) 500 mg PO BEDTIME [facility] Last Admin: 02/01/24 21:48 Dose: 500 mg Furosemide (Furosemide 20 Mg Tablet) 20 mg PO DAILY [facility]; Protocol Last Admin: 02/02/24 08:42 Dose: 20 mg Insulin Human Lispro (Insulin Lispro 100 Unit/Ml 3 Ml Vial) 0 unit SUBCUT BID [facility]; Protocol Last Admin: 02/02/24 08:44 Dose: Not Given Magnesium Hydroxide (Milk Of Magnesia 30 Ml Oral.Susp) 30 ml PO DAILY PRN PRN Reason: Constipation Last Admin: 01/31/24 14:36 Dose: 30 ml Magnesium Oxide (Magnesium Oxide 400 Mg Tablet) 400 mg PO DAILY [facility] Last Admin: 02/02/24 08:43 Dose: 400 mg Melatonin (Melatonin 3 Mg Tablet) 9 mg PO BEDTIME PRN PRN Reason: Insomnia Last Admin: 01/22/24 20:41 Dose: 9 mg Metoprolol Succinate (Metoprolol Succinate Er 25 Mg Tab.Er.24h) 25 mg PO DAILY [facility]; Protocol Last Admin: 02/02/24 08:42 Dose: 25 mg Nicotine Polacrilex (Nicotine Polacrilex 2 Mg Gum) 2 mg BUCCAL Q2H PRN PRN Reason: Nicotine Cravings Pt Own(Dulaglutide [ Trulicity] 1.5 Mg/0. 5 Ml Pen Injector) 1.5 mg SUBCUT Th [facility] Last Admin: 01/28/24 09:49 Dose: 1.5 mg Omeprazole (Omeprazole 20 Mg Capsule.Dr) 20 mg PO DAILY@629 [facility] Last Admin: 02/02/24 07:02 Dose: 20 mg Ondansetron HCl (Ondansetron Odt 4 Mg Tab.Rapdis) 4 mg TRANSLINGU Q6H PRN PRN Reason: Nausea Last Admin: 01/25/24 07:45 Dose: 4 mg Polyethylene Glycol (Polyethylene Glycol 3350 17 Gm Powd.Pack) 17 gm PO DAILY PRN PRN Reason: Constipation Last Admin: 01/31/24 14:36 Dose: 17 gm Pyridoxine HCl (Pyridoxine Hcl (Vitamin B6) 50 Mg Tablet) 25 mg PO DAILY [facility] Last Admin: 02/02/24 08:43 Dose: 25 mg Quetiapine Fumarate (Quetiapine Fumarate 25 Mg Tablet) 25 mg PO TID PRN PRN Reason: anxieety Last Admin: 01/30/24 14:55 Dose: 25 mg Quetiapine Fumarate (Quetiapine Fumarate 300 Mg Tablet) 300 mg PO BEDTIME [facility] Last Admin: 02/01/24 21:38 Dose: 300 mg Sodium Biphosphate/Sodium Phosphate (Sodium Phosphate,Stokes-Dibasic 133 Ml Enema) 133 ml NH ONCE PRN PRN Reason: Constipation Last Admin: 01/18/24 06:30 Dose: 133 ml Thyroid (Thyroid,Pork 30 Mg Tablet) 120 mg PO DAILY@629 [facility] Last Admin: 02/02/24 06:07 Dose: 120 mg Trazodone HCl (Trazodone Hcl 50 Mg Tablet) 50 mg PO BEDTIME MRX1 PRN PRN Reason: insomnia Last Admin: 01/23/24 21:26 Dose: 50 mg Vitamin D (Cholecalciferol (Vitamin D3) 25 Mcg Tablet) 50 mcg PO DAILY [facility] Last Admin: 02/02/24 08:42 Dose: 50 mcg Allergies Allergies Allergy/AdvReac Type Severity Reaction Status Date / Time amoxicillin Allergy Unknown Verified 01/28/24 09:22 Assessment & Plan Assessment & Plan (1) Bipolar affective disorder, manic, severe, with psychotic behavior: Status: Acute Code(s): F31.2 - Bipolar disorder, current episode manic severe with psychotic features Assessment and Plan: r/o schizoaffective bipolar type (2) PTSD (post-traumatic stress disorder): Status: Acute Code(s): F43.10 - Post-traumatic stress disorder, unspecified Plan 12/28: taper VPA and lamictal; start tegretol instead. do not restart caplyta; start abilify instead (had been on 20 mg in the past). ambien while hospitalized only for sleep. continue cogentin 0.5 BID and seroquel 25 TID PRN for now. continue porcine thyroid hormone. 12/29: DC lamictal entirely. increase abilify to 10 QHS. otherwise continue current mgmt. less verbose and voluble than yesterday. 12/30: increase tegretol to 200 BID, decrease VPA to 500 QHS. will discuss abilify versus vraylar with pt. grossly psychotic today. 12/31: DC VPA. declining vraylar, insisting on staying on abilify. becca slightly improved. 01/01: improved manic Sx. continue current mgmt. prefers to stay at abilify 10 for now. 01/02: remains mildly improved. increase abilify to 15 mg tonight. continue regimen otherwise. 01/03: increase abilify to 20 mg QHS. remains highly impaired, but mildly improved from earlier in stay. continue current mgmt otherwise. 01/04 continue tx. some paranoia present but accepting tx. 01/06: continue current tx plan. 01/07: continues paranoid about going home. Requesting increase in ambien. Ambien increased to 10mg PO bedtime. 01/08: Patient reports feeling good today; reports improved sleep with taking trazodone last evening. however refused ambien despite asking for increase. Pt requesting to have magnesium changed to daily. Continues focused on people trying to harm her. 01/09: continue current tx plan. 01/10: increase abilify to 30 mg daily. check labs tonight. not as improved on current regimen as had been hoped. 01/11: tegretol 8.6 (5-12). increase tegretol to 300 BID. continues manic, paranoid delusions. 01/12: as for yesterday in presentation. c/o poor sleep, grogginess in morning. agrees to increase HS seroquel and DC trazodone. 01/13: slept better, thoughts slower, feels starting to improve. continue current mgmt. 01/14: poor sleep, asking for increased seroquel available at HS. paranoid delusions continue. incr HS seroquel PRNs. 01/16/2024: No changes. Continue current regimen. 01/16: increase night time seroquel to 75mg scheduled 01/17: continue current mgmt. remains gradually improving. check labs tomorrow night. 01/18: inconsistent day to day. today more paranoid and delusional content. check labs tonight, if historical dosing is any guide will likely increase tegretol tomorrow. reports having slept well last night for the first time since admission. 01/19: tegretol 9.1. increase dosing to 400 BID as of today. remains attenuated manic. continue current mgmt otherwise. 01/20: a shade improved from yesterday. split tegretol 200/200/400. otherwise continue current mgmt. 01/21: notably improved. continue current mgmt aside from decrease cogentin 0.5 BID to 0.25 BID. 01/23/2024: In an effort to maximize Tegretol dosing and adherence, will change from total daily dose 800 mg down to total daily dose 700 mg (300 mg morning and 400 mg at bedtime), as patient is currently declining 400 mg in the morning, but accepting 400 mg at bedtime. Otherwise no changes 01/23: no changes 01/24: per pt request, tegretol dosing changed to 300/100/300. the decision is made to DC abilify due to lack of progress and return to seroquel at HS. initial dosing 200 mg, to titrate as indicated. 3-day up 01/26. 01/25: improved sleep, but still disrupted. increase HS seroquel to 300 mg. c/o hand tremor, increase cogentin back to 0.5 BID. gradual daily trend of improvement. 3-day up tomorrow. 01/26: rescinded 3-day notice. wants to DC thursday. refusing tegretol dose increase or labs tomorrow night, says she'll see Dr. Mcdonald and discuss with him. worsening paranoid delusions. 01/27: informed she will not discharge tomorrow, signed 3-day notice again. agreed to increase tegretol to 300 TID. states she slept well last night. continue current regimen otherwise, 3-day up 02/01. 01/28: slept well last night, mood improved (slowed). continue current mgmt. 3-day up 02/01, planning to discharge that day. 01/31 This Thursday, nursing reports she was talking about inappropriate sexual topics to peers who distanced themselves from her Again on Thursday, pt saying bizarre, disturbing things to peers, often talking about rape, while they were eating and again causing peers to avoid her. today she remains hypersexual, making sexual references, feeling her body as she walks down hallway. She is manic, disorganized in speech and behavior. No insight. She is with pressured speech, difficult to interrupt, and rambling at technical report writer about various, hard to understand things, many nonsensical and delusional; she often refers to Federal case and references sexual interactions she's had...whenever technical report writer tries to inquire, pt says you know... Inclusion Special Educator asked if pt were willing to retract her 3 day notice which she was not. Inclusion Special Educator gave [place] warning and explained petitioning the court for involuntary comittment which she understood but was angered by. Inclusion Special Educator reviewed chart and asked pt to start on Depakote which was effective for her in the past. She refused. -Later pt came to nurses station while technical report writer was there, and started taking to staff, rambling about a little black boy, little wiener...ejaculation... -To IT staff person sitting behind nurses station, working on computer pt told hem she was going to call the [employer] on him, saying he was violating HIPPA looking at her information. -Pt's brother called and discussed case w/ SW and reported that she is leaving delusional messages on his voice mail and he does not think she is ready to come home. 02/01 Retracted 3 day and took depakote last night. Perhaps a little more calm -continue Depakote (pt progressed in previous admissions when Depakote part of regimen) IMPRESSION: Pt is floridly manic and delusional. While she briefly improved last week, she has returned to manic and disorganized in both speech and behavior. Review of chart shows that During one of last admissions a year ago, she stabilized on both Tegretol and depakote (and seroquel). Pt's 3 day notice is coming due however, she is too disorganized to discharge and take care of herself in the community. Her brother called to express the same concern. -on 02/01 Pt retracted 3 day (so will hold off filing for involuntary commitment). PLAN: CV STARTed Depakote ER 500mg qhs (During prior admissions, pt progressed when Depakote part of regimen) Continue TEgretol 300mg TID Continue Seroquel Patient educated on: diagnosis and medication risk/benefits Informed Consent: understands, does not understand and further education needed Reason for continued inpatient stay Substantial Risk for: inability to function Time Spent With Patient Time: Total time managing care of this patient today ____ minutes.
[2024-02-02] MEDS: Milk of Magnesia 30 ML ORAL.SUSP PO (13:00)
[2024-02-02] MEDS: polyethylene glycoL 3350 17 GM POWD.PACK PO (13:02)
[2024-02-02] MEDS: clonazePAM 1 MG TABLET PO ×2 (15:18→23:06)
[2024-02-02 20:35] VITALS: BP 109/67; PULSE 91; RESP 16; TEMP 37.1; O2SAT 94
[2024-02-02] MEDS: Divalproex Sodium ER 500 MG TAB.ER.24H PO (20:59)
[2024-02-02] MEDS: QUEtiapine Fumarate 300 MG TABLET PO (20:59)
[2024-02-02] MEDS: Atorvastatin Calcium 40 MG TABLET PO (20:59)
[2024-02-03] MEDS: Thyroid,Pork 30 MG TABLET 120 MG PO (06:09)
[2024-02-03] MEDS: Omeprazole 20 MG CAPSULE.DR PO (06:55)
[2024-02-03 07:48] LABS: Glucose, Whole Blood 115 mg/dL (60-115)
[2024-02-03 07:55] VITALS: BP 146/69; PULSE 89; RESP 14; TEMP 36.3; O2SAT 96
[2024-02-03] MEDS: Pyridoxine HCl (Vitamin B6) 50 MG TABLET 25 MG PO (09:35)
[2024-02-03] MEDS: carBAMazepine ER 100 MG TAB.ER.12H 300 MG PO ×3 (09:37→21:18)
[2024-02-03 09:38] VITALS: BP 139/63; PULSE 101
[2024-02-03] MEDS: Metoprolol Succinate ER 25 MG TAB.ER.24H PO (09:38)
[2024-02-03] MEDS: Apixaban 2.5 MG TABLET 7.5 MG PO ×2 (09:38→21:18)
[2024-02-03 09:39] VITALS: BP 139/63
[2024-02-03] MEDS: Benztropine Mesylate 0.5 MG TABLET PO ×2 (09:39→21:16)
[2024-02-03] MEDS: Cholecalciferol (Vitamin D3) 25 MCG TABLET 50 MCG PO (09:39)
[2024-02-03] MEDS: Furosemide 20 MG TABLET PO (09:39)
[2024-02-03] MEDS: Cyanocobalamin (Vitamin B-12) 100 MCG TABLET PO (09:39)
[2024-02-03] MEDS: Magnesium Oxide 400 MG TABLET PO (09:39)
--- NOTE | 2024-02-03 11:13 | P.PNPSI_ITS ---
Subjective Subjective Date of Service: 02/03/24 Reason For Visit: Mood Disorder Subjective Notes: Conditional Voluntary and 3 Day Interim History: Patient was seen and discussed in rounds today. Records and plans were reviewed. She continues to be hypomanic, delusional. She also has a lot of sexually tilted content. She does have a 3 day notice which expires on 02/07. Questions about Depakote and the dosing discussed that she wanted me to decrease it which I refused. I tried to explain to her the reason. No SI. No changes were made today Review of Systems Review of Systems Yes all other systems are reviewed and are negative Mental Status Exam Mental Status Exam Narrative: In today's visit she is alert, pleasant and interactive. Speech is slightly pressured. Moderate eye contact. No acute signs of psychosis. Affect is expansive. She moves all her limbs. No gait abnormalities. No SI. Judgment is marginally impaired. Diagnostics Vital Signs (24Hr): Vital Signs - 24 hr 02/02/24 20:35 02/03/24 07:55 02/03/24 09:38 Temperature 98.8 F 97.3 F Pulse Rate 91 89 101 H Respiratory Rate 16 14 Blood Pressure 109/67 146/69 H 139/63 Pulse Oximetry 94 96 Oxygen Delivery Method Room Air Room Air 02/03/24 09:39 Temperature Pulse Rate Respiratory Rate Blood Pressure 139/63 Pulse Oximetry Oxygen Delivery Method BMI result Body Mass Index 35.0 Labs 01/19/24 20:24 01/19/24 20:23 Labs: Laboratory Results - last 48 hr 02/02/24 02/03/24 07:59 07:37 POC Glucose 108 115 Medications Medications Current Medications Acetaminophen (Acetaminophen 325 Mg Tablet) 650 mg PO Q6H PRN PRN Reason: Headache/Pain Mild Scale (1-3) Last Admin: 01/11/24 03:28 Dose: 325 mg Al Hydroxide/Mg Hydroxide (Magnesium Hydrox/Alum Hydrox 30 Ml Oral.Susp) 30 ml PO Q6H PRN PRN Reason: Heartburn/Nausea Last Admin: 01/01/24 13:24 Dose: 30 ml Apixaban (Apixaban 2.5 Mg Tablet) 7.5 mg PO BID [facility] Last Admin: 02/03/24 09:38 Dose: 7.5 mg Atorvastatin Calcium (Atorvastatin Calcium 40 Mg Tablet) 40 mg PO BEDTIME BERNARDA Last Admin: 02/02/24 20:59 Dose: 40 mg Benztropine Mesylate (Benztropine Mesylate 0.5 Mg Tablet) 0.5 mg PO BID [facility] Last Admin: 02/03/24 09:39 Dose: 0.5 mg Carbamazepine (Carbamazepine Er 100 Mg Tab.Er.12h) 300 mg PO TID [facility] Last Admin: 02/03/24 09:37 Dose: 300 mg Clonazepam (Clonazepam 1 Mg Tablet) 1 mg PO BID PRN PRN Reason: severe anxiety Last Admin: 02/02/24 23:06 Dose: 1 mg Cyanocobalamin (Cyanocobalamin (Vitamin B-12) 100 Mcg Tablet) 100 mcg PO DAILY [facility] Last Admin: 02/03/24 09:39 Dose: 100 mcg Divalproex Sodium (Divalproex Sodium Er 500 Mg Tab.Er.24h) 500 mg PO BEDTIME [facility] Last Admin: 02/02/24 20:59 Dose: 500 mg Furosemide (Furosemide 20 Mg Tablet) 20 mg PO DAILY [facility]; Protocol Last Admin: 02/03/24 09:39 Dose: 20 mg Insulin Human Lispro (Insulin Lispro 100 Unit/Ml 3 Ml Vial) 0 unit SUBCUT BID [facility]; Protocol Last Admin: 02/03/24 09:43 Dose: Not Given Magnesium Hydroxide (Milk Of Magnesia 30 Ml Oral.Susp) 30 ml PO DAILY PRN PRN Reason: Constipation Last Admin: 02/02/24 13:00 Dose: 30 ml Magnesium Oxide (Magnesium Oxide 400 Mg Tablet) 400 mg PO DAILY [facility] Last Admin: 02/03/24 09:39 Dose: 400 mg Melatonin (Melatonin 3 Mg Tablet) 9 mg PO BEDTIME PRN PRN Reason: Insomnia Last Admin: 01/22/24 20:41 Dose: 9 mg Metoprolol Succinate (Metoprolol Succinate Er 25 Mg Tab.Er.24h) 25 mg PO DAILY [facility]; Protocol Last Admin: 02/03/24 09:38 Dose: 25 mg Nicotine Polacrilex (Nicotine Polacrilex 2 Mg Gum) 2 mg BUCCAL Q2H PRN PRN Reason: Nicotine Cravings Pt Own(Dulaglutide [ Trulicity] 1.5 Mg/0. 5 Ml Pen Injector) 1.5 mg SUBCUT Th [facility] Last Admin: 01/28/24 09:49 Dose: 1.5 mg Omeprazole (Omeprazole 20 Mg Capsule.Dr) 20 mg PO DAILY@0630 [facility] Last Admin: 02/03/24 06:55 Dose: 20 mg Ondansetron HCl (Ondansetron Odt 4 Mg Tab.Rapdis) 4 mg TRANSLINGU Q6H PRN PRN Reason: Nausea Last Admin: 01/25/24 07:45 Dose: 4 mg Polyethylene Glycol (Polyethylene Glycol 3350 17 Gm Powd.Pack) 17 gm PO DAILY PRN PRN Reason: Constipation Last Admin: 02/02/24 13:02 Dose: 17 gm Pyridoxine HCl (Pyridoxine Hcl (Vitamin B6) 50 Mg Tablet) 25 mg PO DAILY [facility] Last Admin: 02/03/24 09:35 Dose: 25 mg Quetiapine Fumarate (Quetiapine Fumarate 25 Mg Tablet) 25 mg PO TID PRN PRN Reason: anxieety Last Admin: 01/30/24 14:55 Dose: 25 mg Quetiapine Fumarate (Quetiapine Fumarate 300 Mg Tablet) 300 mg PO BEDTIME [facility] Last Admin: 02/02/24 20:59 Dose: 300 mg Sodium Biphosphate/Sodium Phosphate (Sodium Phosphate,[place]-Dibasic 133 Ml Enema) 133 ml [place] ONCE PRN PRN Reason: Constipation Last Admin: 01/18/24 06:30 Dose: 133 ml Thyroid (Thyroid,Pork 30 Mg Tablet) 120 mg PO DAILY@629 [facility] Last Admin: 02/03/24 06:09 Dose: 120 mg Trazodone HCl (Trazodone Hcl 50 Mg Tablet) 50 mg PO BEDTIME MRX1 PRN PRN Reason: insomnia Last Admin: 01/23/24 21:26 Dose: 50 mg Vitamin D (Cholecalciferol (Vitamin D3) 25 Mcg Tablet) 50 mcg PO DAILY [facility] Last Admin: 02/03/24 09:39 Dose: 50 mcg Zolpidem Tartrate (Zolpidem Tartrate 5 Mg Tablet) 5 mg PO BEDTIME PRN PRN Reason: Insomnia Allergies Allergies Allergy/AdvReac Type Severity Reaction Status Date / Time amoxicillin Allergy Unknown Verified 01/28/24 09:22 Assessment & Plan Assessment & Plan (1) Bipolar affective disorder, manic, severe, with psychotic behavior: Status: Acute Code(s): F31.2 - Bipolar disorder, current episode manic severe with psychotic features Assessment and Plan: r/o schizoaffective bipolar type (2) PTSD (post-traumatic stress disorder): Status: Acute Code(s): F43.10 - Post-traumatic stress disorder, unspecified Plan 12/28: taper VPA and lamictal; start tegretol instead. do not restart caplyta; start abilify instead (had been on 20 mg in the past). ambien while hospitalized only for sleep. continue cogentin 0.5 BID and seroquel 25 TID PRN for now. continue porcine thyroid hormone. 12/29: DC lamictal entirely. increase abilify to 10 QHS. otherwise continue current mgmt. less verbose and voluble than yesterday. 12/30: increase tegretol to 200 BID, decrease VPA to 500 QHS. will discuss abilify versus vraylar with pt. grossly psychotic today. 12/31: DC VPA. declining vraylar, insisting on staying on abilify. becca slightly improved. 01/01: improved manic Sx. continue current mgmt. prefers to stay at abilify 10 for now. 01/02: remains mildly improved. increase abilify to 15 mg tonight. continue regimen otherwise. 01/03: increase abilify to 20 mg QHS. remains highly impaired, but mildly improved from earlier in stay. continue current mgmt otherwise. 01/04 continue tx. some paranoia present but accepting tx. 01/06: continue current tx plan. 01/07: continues paranoid about going home. Requesting increase in ambien. Ambien increased to 10mg PO bedtime. 01/08: Patient reports feeling good today; reports improved sleep with taking trazodone last evening. however refused ambien despite asking for increase. Pt requesting to have magnesium changed to daily. Continues focused on people trying to harm her. 01/09: continue current tx plan. 01/10: increase abilify to 30 mg daily. check labs tonight. not as improved on current regimen as had been hoped. 01/11: tegretol 8.6 (5-12). increase tegretol to 300 BID. continues manic, paranoid delusions. 01/12: as for yesterday in presentation. c/o poor sleep, grogginess in morning. agrees to increase HS seroquel and DC trazodone. 01/13: slept better, thoughts slower, feels starting to improve. continue current mgmt. 01/14: poor sleep, asking for increased seroquel available at HS. paranoid delusions continue. incr HS seroquel PRNs. 01/16/2024: No changes. Continue current regimen. 01/16: increase night time seroquel to 75mg scheduled 01/17: continue current mgmt. remains gradually improving. check labs tomorrow night. 01/18: inconsistent day to day. today more paranoid and delusional content. check labs tonight, if historical dosing is any guide will likely increase tegretol tomorrow. reports having slept well last night for the first time since admission. 01/19: tegretol 9.1. increase dosing to 400 BID as of today. remains attenuated manic. continue current mgmt otherwise. 01/20: a shade improved from yesterday. split tegretol 200/200/400. otherwise continue current mgmt. 01/21: notably improved. continue current mgmt aside from decrease cogentin 0.5 BID to 0.25 BID. 01/23/2024: In an effort to maximize Tegretol dosing and adherence, will change from total daily dose 800 mg down to total daily dose 700 mg (300 mg morning and 400 mg at bedtime), as patient is currently declining 400 mg in the morning, but accepting 400 mg at bedtime. Otherwise no changes 01/23: no changes 01/24: per pt request, tegretol dosing changed to 300/100/300. the decision is made to DC abilify due to lack of progress and return to seroquel at HS. initial dosing 200 mg, to titrate as indicated. 3-day up 01/26. 01/25: improved sleep, but still disrupted. increase HS seroquel to 300 mg. c/o hand tremor, increase cogentin back to 0.5 BID. gradual daily trend of improvement. 3-day up tomorrow. 01/26: rescinded 3-day notice. wants to DC thursday. refusing tegretol dose increase or labs tomorrow night, says she'll see Dr. Mcdonald and discuss with him. worsening paranoid delusions. 01/27: informed she will not discharge tomorrow, signed 3-day notice again. agreed to increase tegretol to 300 TID. states she slept well last night. continue current regimen otherwise, 3-day up 02/01. 01/28: slept well last night, mood improved (slowed). continue current mgmt. 3-day up 02/01, planning to discharge that day. 01/31 This Thursday, nursing reports she was talking about inappropriate sexual topics to peers who distanced themselves from her Again on Thursday, pt saying bizarre, disturbing things to peers, often talking about rape, while they were eating and again causing peers to avoid her. 02/02: Continue current regimen and plans today she remains hypersexual, making sexual references, feeling her body as she walks down hallway. She is manic, disorganized in speech and behavior. No insight. She is with pressured speech, difficult to interrupt, and rambling at bond writer about various, hard to understand things, many nonsensical and delusional; she often refers to [employer] case and references sexual interactions she's had...whenever bond writer tries to inquire, pt says you know... Senior Animal Trainer asked if pt were willing to retract her 3 day notice which she was not. Senior Animal Trainer gave [place] warning and explained petitioning the court for involuntary comittment which she understood but was angered by. Senior Animal Trainer reviewed chart and asked pt to start on Depakote which was effective for her in the past. She refused. -Later pt came to nurses station while bond writer was there, and started taking to staff, rambling about a little black boy, little wiener...ejaculation... -To IT staff person sitting behind nurses station, working on computer pt told hem she was going to call the FBI on him, saying he was violating HIPPA looking at her information. -Pt's brother called and discussed case w/ SW and reported that she is leaving delusional messages on his voice mail and he does not think she is ready to come home. IMPRESSION: Pt is floridly manic and delusional. While she briefly improved last week, she has returned to manic and disorganized in both speech and behavior. Review of chart shows that During one of last admissions a year ago, she stabilized on both Tegretol and depakote (and seroquel). Pt's 3 day notice is coming due however, she is too disorganized to discharge and take care of herself in the community. Her brother called to express the same concern. Will file for involuntary commitment. Will also start depakote and hope she'll take it. PLAN: 3 day notice will file for involuntary commitment START Depakote ER 500mg qhs Continue TEgretol 300mg TID Continue Seroquel Patient educated on: medication risk/benefits Reason for continued inpatient stay Substantial Risk for: inability to function and med/psych decompensation Time Spent With Patient Time: Total time managing care of this patient today ____ minutes.
[2024-02-03] MEDS: clonazePAM 1 MG TABLET PO ×2 (14:12→21:18)
[2024-02-03 20:56] VITALS: BP 139/65; PULSE 85; RESP 16; TEMP 37.2; O2SAT 94
[2024-02-03] MEDS: Zolpidem Tartrate 5 MG TABLET PO (21:16)
[2024-02-03] MEDS: QUEtiapine Fumarate 300 MG TABLET PO (21:17)
[2024-02-03] MEDS: Atorvastatin Calcium 40 MG TABLET PO (21:17)
[2024-02-04] MEDS: Thyroid,Pork 30 MG TABLET 120 MG PO (06:47)
[2024-02-04] MEDS: Omeprazole 20 MG CAPSULE.DR PO (06:47)
[2024-02-04 07:00] VITALS: BMI 35.6
[2024-02-04 08:19] LABS: Glucose, Whole Blood 101 mg/dL (60-115)
[2024-02-04 08:41] VITALS: BP 142/64; PULSE 94; RESP 16; TEMP 36.2; O2SAT 98
[2024-02-04] MEDS: Pyridoxine HCl (Vitamin B6) 50 MG TABLET 25 MG PO (08:41)
[2024-02-04] MEDS: carBAMazepine ER 100 MG TAB.ER.12H 300 MG PO (08:42)
[2024-02-04] MEDS: Metoprolol Succinate ER 25 MG TAB.ER.24H PO (08:43)
[2024-02-04] MEDS: Cholecalciferol (Vitamin D3) 25 MCG TABLET 50 MCG PO (08:43)
[2024-02-04] MEDS: Cyanocobalamin (Vitamin B-12) 100 MCG TABLET PO (08:44)
[2024-02-04] MEDS: Magnesium Oxide 400 MG TABLET PO (08:44)
[2024-02-04] MEDS: Furosemide 20 MG TABLET PO (08:44)
[2024-02-04] MEDS: Apixaban 2.5 MG TABLET 7.5 MG PO ×2 (08:44→21:01)
[2024-02-04] MEDS: Benztropine Mesylate 0.5 MG TABLET PO ×2 (08:44→21:01)
[2024-02-04] MEDS: DULAGLUTIDE 1.5 MG/0.5 ML 1.5 EACH SUBCUT (10:16)
[2024-02-04] MEDS: clonazePAM 1 MG TABLET PO ×2 (13:59→21:00)
[2024-02-04] MEDS: carBAMazepine ER 100 MG TAB.ER.12H PO (13:59)
[2024-02-04 19:58] VITALS: BP 144/70; PULSE 99; RESP 17; TEMP 36.7; O2SAT 92
--- NOTE | 2024-02-04 20:32 | HO.PSYCHPN ---
Subjective Subjective Date of Service: 02/04/24 Reason For Visit: Mood Disorder Interim History: remains manic, paranoid delusions, incr rate and amount of speech. refusing to take recommended dosing of tegretol, reportedly only took 900 mg daily from 01/28-01/31, then taking only 800 mg daily since. per staff, 3-day up 02/07. expansive, perseverative, delusional. refusing HS VPA. slept 8 hours. Mental Status Exam Mental Status Exam Narrative: Pt is alert and oriented; behavior is calm, cooperative; dressed in casual attire; eye contact appropriate; Speech is incr rate, amount, loudness. decr latency. paranoid delusions dominant. no SI/HI/AVH expressed. Diagnostics Vital Signs (24Hr): Vital Signs - 24 hr 02/03/24 20:56 02/04/24 08:41 Temperature 98.9 F 97.2 F Pulse Rate 85 94 Respiratory Rate 16 16 Blood Pressure 139/65 142/64 H Pulse Oximetry 94 98 Oxygen Delivery Method Room Air Room Air BMI result Body Mass Index 35.6 Labs 01/19/24 20:24 01/19/24 20:23 Labs: Laboratory Results - last 48 hr 02/03/24 02/04/24 07:37 08:14 POC Glucose 115 101 Medications Medications Current Medications Acetaminophen (Acetaminophen 325 Mg Tablet) 650 mg PO Q6H PRN PRN Reason: Headache/Pain Mild Scale (1-3) Last Admin: 01/11/24 03:28 Dose: 325 mg Al Hydroxide/Mg Hydroxide (Magnesium Hydrox/Alum Hydrox 30 Ml Oral.Susp) 30 ml PO Q6H PRN PRN Reason: Heartburn/Nausea Last Admin: 01/01/24 13:24 Dose: 30 ml Apixaban (Apixaban 2.5 Mg Tablet) 7.5 mg PO BID [facility] Last Admin: 02/04/24 08:44 Dose: 7.5 mg Atorvastatin Calcium (Atorvastatin Calcium 40 Mg Tablet) 40 mg PO BEDTIME BERNARDA Last Admin: 02/03/24 21:17 Dose: 40 mg Benztropine Mesylate (Benztropine Mesylate 0.5 Mg Tablet) 0.5 mg PO BID [facility] Last Admin: 02/04/24 08:44 Dose: 0.5 mg Carbamazepine (Carbamazepine Er 200 Mg Tab.Er.12h) 400 mg PO BID [facility] Clonazepam (Clonazepam 1 Mg Tablet) 1 mg PO BID PRN PRN Reason: severe anxiety Last Admin: 02/04/24 13:59 Dose: 1 mg Cyanocobalamin (Cyanocobalamin (Vitamin B-12) 100 Mcg Tablet) 100 mcg PO DAILY [facility] Last Admin: 02/04/24 08:44 Dose: 100 mcg Divalproex Sodium (Divalproex Sodium Er 500 Mg Tab.Er.24h) 500 mg PO BEDTIME [facility] Last Admin: 02/03/24 21:20 Dose: Not Given Furosemide (Furosemide 20 Mg Tablet) 20 mg PO DAILY [facility]; Protocol Last Admin: 02/04/24 08:44 Dose: 20 mg Insulin Human Lispro (Insulin Lispro 100 Unit/Ml 3 Ml Vial) 0 unit SUBCUT BID [facility]; Protocol Last Admin: 02/04/24 08:45 Dose: Not Given Magnesium Hydroxide (Milk Of Magnesia 30 Ml Oral.Susp) 30 ml PO DAILY PRN PRN Reason: Constipation Last Admin: 02/02/24 13:00 Dose: 30 ml Magnesium Oxide (Magnesium Oxide 400 Mg Tablet) 400 mg PO DAILY [facility] Last Admin: 02/04/24 08:44 Dose: 400 mg Melatonin (Melatonin 3 Mg Tablet) 9 mg PO BEDTIME PRN PRN Reason: Insomnia Last Admin: 01/22/24 20:41 Dose: 9 mg Metoprolol Succinate (Metoprolol Succinate Er 25 Mg Tab.Er.24h) 25 mg PO DAILY [facility]; Protocol Last Admin: 02/04/24 08:43 Dose: 25 mg Nicotine Polacrilex (Nicotine Polacrilex 2 Mg Gum) 2 mg BUCCAL Q2H PRN PRN Reason: Nicotine Cravings Pt Own(Dulaglutide [ Trulicity] 1.5 Mg/0. 5 Ml Pen Injector) 1.5 mg SUBCUT Th [facility] Last Admin: 02/04/24 10:16 Dose: 1.5 mg Omeprazole (Omeprazole 20 Mg Capsule.Dr) 20 mg PO DAILY@0630 [facility] Last Admin: 02/04/24 06:47 Dose: 20 mg Ondansetron HCl (Ondansetron Odt 4 Mg Tab.Rapdis) 4 mg TRANSLINGU Q6H PRN PRN Reason: Nausea Last Admin: 01/25/24 07:45 Dose: 4 mg Polyethylene Glycol (Polyethylene Glycol 3350 17 Gm Powd.Pack) 17 gm PO DAILY PRN PRN Reason: Constipation Last Admin: 02/02/24 13:02 Dose: 17 gm Pyridoxine HCl (Pyridoxine Hcl (Vitamin B6) 50 Mg Tablet) 25 mg PO DAILY [facility] Last Admin: 02/04/24 08:41 Dose: 25 mg Quetiapine Fumarate (Quetiapine Fumarate 25 Mg Tablet) 25 mg PO TID PRN PRN Reason: anxieety Last Admin: 01/30/24 14:55 Dose: 25 mg Quetiapine Fumarate (Quetiapine Fumarate 300 Mg Tablet) 300 mg PO BEDTIME [facility] Last Admin: 02/03/24 21:17 Dose: 300 mg Sodium Biphosphate/Sodium Phosphate (Sodium Phosphate,[place]-Dibasic 133 Ml Enema) 133 ml [place] ONCE PRN PRN Reason: Constipation Last Admin: 01/18/24 06:30 Dose: 133 ml Thyroid (Thyroid,Pork 30 Mg Tablet) 120 mg PO DAILY@0630 [facility] Last Admin: 02/04/24 06:47 Dose: 120 mg Trazodone HCl (Trazodone Hcl 50 Mg Tablet) 50 mg PO BEDTIME MRX1 PRN PRN Reason: insomnia Last Admin: 01/23/24 21:26 Dose: 50 mg Vitamin D (Cholecalciferol (Vitamin D3) 25 Mcg Tablet) 50 mcg PO DAILY [facility] Last Admin: 02/04/24 08:43 Dose: 50 mcg Zolpidem Tartrate (Zolpidem Tartrate 5 Mg Tablet) 5 mg PO BEDTIME PRN PRN Reason: Insomnia Last Admin: 02/03/24 21:16 Dose: 5 mg Allergies Allergies Allergy/AdvReac Type Severity Reaction Status Date / Time amoxicillin Allergy Unknown Verified 01/28/24 09:22 Assessment & Plan Assessment & Plan (1) Bipolar affective disorder, manic, severe, with psychotic behavior: Status: Acute Code(s): F31.2 - Bipolar disorder, current episode manic severe with psychotic features Assessment and Plan: r/o schizoaffective bipolar type (2) PTSD (post-traumatic stress disorder): Status: Acute Code(s): F43.10 - Post-traumatic stress disorder, unspecified Plan 12/28: taper VPA and lamictal; start tegretol instead. do not restart caplyta; start abilify instead (had been on 20 mg in the past). ambien while hospitalized only for sleep. continue cogentin 0.5 BID and seroquel 25 TID PRN for now. continue porcine thyroid hormone. 12/29: DC lamictal entirely. increase abilify to 10 QHS. otherwise continue current mgmt. less verbose and voluble than yesterday. 12/30: increase tegretol to 200 BID, decrease VPA to 500 QHS. will discuss abilify versus vraylar with pt. grossly psychotic today. 12/31: DC VPA. declining vraylar, insisting on staying on abilify. becca slightly improved. 01/01: improved manic Sx. continue current mgmt. prefers to stay at abilify 10 for now. 01/02: remains mildly improved. increase abilify to 15 mg tonight. continue regimen otherwise. 01/03: increase abilify to 20 mg QHS. remains highly impaired, but mildly improved from earlier in stay. continue current mgmt otherwise. 01/04 continue tx. some paranoia present but accepting tx. 01/06: continue current tx plan. 01/07: continues paranoid about going home. Requesting increase in ambien. Ambien increased to 10mg PO bedtime. 01/08: Patient reports feeling good today; reports improved sleep with taking trazodone last evening. however refused ambien despite asking for increase. Pt requesting to have magnesium changed to daily. Continues focused on people trying to harm her. 01/09: continue current tx plan. 01/10: increase abilify to 30 mg daily. check labs tonight. not as improved on current regimen as had been hoped. 01/11: tegretol 8.6 (5-12). increase tegretol to 300 BID. continues manic, paranoid delusions. 01/12: as for yesterday in presentation. c/o poor sleep, grogginess in morning. agrees to increase HS seroquel and DC trazodone. 01/13: slept better, thoughts slower, feels starting to improve. continue current mgmt. 01/14: poor sleep, asking for increased seroquel available at HS. paranoid delusions continue. incr HS seroquel PRNs. 01/16/2024: No changes. Continue current regimen. 01/16: increase night time seroquel to 75mg scheduled 01/17: continue current mgmt. remains gradually improving. check labs tomorrow night. 01/18: inconsistent day to day. today more paranoid and delusional content. check labs tonight, if historical dosing is any guide will likely increase tegretol tomorrow. reports having slept well last night for the first time since admission. 01/19: tegretol 9.1. increase dosing to 400 BID as of today. remains attenuated manic. continue current mgmt otherwise. 01/20: a shade improved from yesterday. split tegretol 200/200/400. otherwise continue current mgmt. 01/21: notably improved. continue current mgmt aside from decrease cogentin 0.5 BID to 0.25 BID. 01/23/2024: In an effort to maximize Tegretol dosing and adherence, will change from total daily dose 800 mg down to total daily dose 700 mg (300 mg morning and 400 mg at bedtime), as patient is currently declining 400 mg in the morning, but accepting 400 mg at bedtime. Otherwise no changes 01/23: no changes 01/24: per pt request, tegretol dosing changed to 300/100/300. the decision is made to DC abilify due to lack of progress and return to seroquel at HS. initial dosing 200 mg, to titrate as indicated. 3-day up 01/26. 01/25: improved sleep, but still disrupted. increase HS seroquel to 300 mg. c/o hand tremor, increase cogentin back to 0.5 BID. gradual daily trend of improvement. 3-day up tomorrow. 01/26: rescinded 3-day notice. wants to DC thursday. refusing tegretol dose increase or labs tomorrow night, says she'll see Dr. Mcdonald and discuss with him. worsening paranoid delusions. 01/27: informed she will not discharge tomorrow, signed 3-day notice again. agreed to increase tegretol to 300 TID. states she slept well last night. continue current regimen otherwise, 3-day up 02/01. 01/28: slept well last night, mood improved (slowed). continue current mgmt. 3-day up 02/01, planning to discharge that day. 01/31 This Thursday, nursing reports she was talking about inappropriate sexual topics to peers who distanced themselves from her Again on Thursday, pt saying bizarre, disturbing things to peers, often talking about rape, while they were eating and again causing peers to avoid her. 02/02: remains hypersexual, making sexual references, feeling her body as she walks down hallway. manic, disorganized in speech and behavior. depakote ordered. 02/03: remains manic, worse so than late last week. refusing VPA; DC order. pt declining to take a therapeutic dose of tegretol, encourage pt to take increased dose. declines to increase seroquel dosing at HS, does allow for tegretol dosing to be consolidated to BID from TID, but only at 800 mg daily. 3-day up 02/07. Reason for continued inpatient stay Substantial Risk for: inability to function Time Spent With Patient Time: Total time managing care of this patient today __35__ minutes.
[2024-02-04] MEDS: QUEtiapine Fumarate 300 MG TABLET PO (21:00)
[2024-02-04] MEDS: Atorvastatin Calcium 40 MG TABLET PO (21:01)
[2024-02-04] MEDS: carBAMazepine ER 200 MG TAB.ER.12H 400 MG PO (21:01)
[2024-02-04] MEDS: Melatonin 3 MG TABLET 9 MG PO (21:01)
[2024-02-04] MEDS: Zolpidem Tartrate 5 MG TABLET PO (21:01)
[2024-02-05] MEDS: Omeprazole 20 MG CAPSULE.DR PO (06:44)
[2024-02-05] MEDS: Thyroid,Pork 30 MG TABLET 120 MG PO (06:46)
[2024-02-05 08:03] LABS: Glucose, Whole Blood 128 mg/dL (60-115)
[2024-02-05 08:23] VITALS: BP 132/61; PULSE 88; RESP 16; TEMP 36.9; O2SAT 94
[2024-02-05] MEDS: Pyridoxine HCl (Vitamin B6) 50 MG TABLET 25 MG PO (08:33)
[2024-02-05] MEDS: Magnesium Oxide 400 MG TABLET PO (08:33)
[2024-02-05] MEDS: Benztropine Mesylate 0.5 MG TABLET PO ×2 (08:34→20:32)
[2024-02-05] MEDS: Apixaban 2.5 MG TABLET 7.5 MG PO ×2 (08:34→20:29)
[2024-02-05] MEDS: carBAMazepine ER 200 MG TAB.ER.12H 400 MG PO (08:34)
[2024-02-05] MEDS: Cyanocobalamin (Vitamin B-12) 100 MCG TABLET PO (08:34)
[2024-02-05] MEDS: Furosemide 20 MG TABLET PO (08:34)
[2024-02-05] MEDS: Cholecalciferol (Vitamin D3) 25 MCG TABLET 50 MCG PO (08:35)
[2024-02-05] MEDS: Metoprolol Succinate ER 25 MG TAB.ER.24H PO (08:35)
--- NOTE | 2024-02-05 13:17 | HO.PSYCHPN ---
Subjective Subjective Date of Service: 02/05/24 Reason For Visit: Mood Disorder Interim History: more calm than yesterday, much less vocal re delusions. more amenable to dose increase in tegretol. agrees to increase to 900 mg daily, split 300/600. states the 400 in the morning made her loopy. 3-day up 02/07, planning to discharge same day. per staff, taking meds, expansive. peter lawler is my baby daddy. Mental Status Exam Mental Status Exam Narrative: Pt is alert and oriented; behavior is calm, cooperative; dressed in casual attire; eye contact appropriate; Speech is incr rate, nml amount, nml loudness, nml latency. paranoid delusions only minimally expressed. no SI/HI/AVH expressed. Diagnostics Vital Signs (24Hr): Vital Signs - 24 hr 02/04/24 19:58 02/05/24 08:23 Temperature 98.1 F 98.4 F Pulse Rate 99 88 Respiratory Rate 17 16 Blood Pressure 144/70 H 132/61 Pulse Oximetry 92 94 Oxygen Delivery Method Room Air Room Air BMI result Body Mass Index 35.6 Labs 01/19/24 20:24 01/19/24 20:23 Labs: Laboratory Results - last 48 hr 02/04/24 02/05/24 08:14 07:58 POC Glucose 101 128 H Medications Medications Current Medications Acetaminophen (Acetaminophen 325 Mg Tablet) 650 mg PO Q6H PRN PRN Reason: Headache/Pain Mild Scale (1-3) Last Admin: 01/11/24 03:28 Dose: 325 mg Al Hydroxide/Mg Hydroxide (Magnesium Hydrox/Alum Hydrox 30 Ml Oral.Susp) 30 ml PO Q6H PRN PRN Reason: Heartburn/Nausea Last Admin: 01/01/24 13:24 Dose: 30 ml Apixaban (Apixaban 2.5 Mg Tablet) 7.5 mg PO BID BERNARDA Last Admin: 02/05/24 08:34 Dose: 7.5 mg Atorvastatin Calcium (Atorvastatin Calcium 40 Mg Tablet) 40 mg PO BEDTIME BERNARDA Last Admin: 02/04/24 21:01 Dose: 40 mg Benztropine Mesylate (Benztropine Mesylate 0.5 Mg Tablet) 0.5 mg PO BID BERNARDA Last Admin: 02/05/24 08:34 Dose: 0.5 mg Carbamazepine (Carbamazepine Er 100 Mg Tab.Er.12h) 300 mg PO DAILY [facility] Carbamazepine (Carbamazepine Er 200 Mg Tab.Er.12h) 600 mg PO BEDTIME BERNARDA Clonazepam (Clonazepam 1 Mg Tablet) 1 mg PO BID PRN PRN Reason: severe anxiety Last Admin: 02/04/24 21:00 Dose: 1 mg Cyanocobalamin (Cyanocobalamin (Vitamin B-12) 100 Mcg Tablet) 100 mcg PO DAILY [facility] Last Admin: 02/05/24 08:34 Dose: 100 mcg Furosemide (Furosemide 20 Mg Tablet) 20 mg PO DAILY [facility]; Protocol Last Admin: 02/05/24 08:34 Dose: 20 mg Insulin Human Lispro (Insulin Lispro 100 Unit/Ml 3 Ml Vial) 0 unit SUBCUT BID [facility]; Protocol Last Admin: 02/05/24 08:19 Dose: Not Given Magnesium Hydroxide (Milk Of Magnesia 30 Ml Oral.Susp) 30 ml PO DAILY PRN PRN Reason: Constipation Last Admin: 02/02/24 13:00 Dose: 30 ml Magnesium Oxide (Magnesium Oxide 400 Mg Tablet) 400 mg PO DAILY [facility] Last Admin: 02/05/24 08:33 Dose: 400 mg Melatonin (Melatonin 3 Mg Tablet) 9 mg PO BEDTIME PRN PRN Reason: Insomnia Last Admin: 02/04/24 21:01 Dose: 9 mg Metoprolol Succinate (Metoprolol Succinate Er 25 Mg Tab.Er.24h) 25 mg PO DAILY [facility]; Protocol Last Admin: 02/05/24 08:35 Dose: 25 mg Nicotine Polacrilex (Nicotine Polacrilex 2 Mg Gum) 2 mg BUCCAL Q2H PRN PRN Reason: Nicotine Cravings Pt Own(Dulaglutide [ Trulicity] 1.5 Mg/0. 5 Ml Pen Injector) 1.5 mg SUBCUT Th [facility] Last Admin: 02/04/24 10:16 Dose: 1.5 mg Omeprazole (Omeprazole 20 Mg Capsule.Dr) 20 mg PO DAILY@0630 [facility] Last Admin: 02/05/24 06:44 Dose: 20 mg Ondansetron HCl (Ondansetron Odt 4 Mg Tab.Rapdis) 4 mg TRANSLINGU Q6H PRN PRN Reason: Nausea Last Admin: 01/25/24 07:45 Dose: 4 mg Polyethylene Glycol (Polyethylene Glycol 3350 17 Gm Powd.Pack) 17 gm PO DAILY PRN PRN Reason: Constipation Last Admin: 02/02/24 13:02 Dose: 17 gm Pyridoxine HCl (Pyridoxine Hcl (Vitamin B6) 50 Mg Tablet) 25 mg PO DAILY [facility] Last Admin: 02/05/24 08:33 Dose: 25 mg Quetiapine Fumarate (Quetiapine Fumarate 25 Mg Tablet) 25 mg PO TID PRN PRN Reason: anxieety Last Admin: 01/30/24 14:55 Dose: 25 mg Quetiapine Fumarate (Quetiapine Fumarate 300 Mg Tablet) 300 mg PO BEDTIME [facility] Last Admin: 02/04/24 21:00 Dose: 300 mg Sodium Biphosphate/Sodium Phosphate (Sodium Phosphate,[place]-Dibasic 133 Ml Enema) 133 ml PA ONCE PRN PRN Reason: Constipation Last Admin: 01/18/24 06:30 Dose: 133 ml Thyroid (Thyroid,Pork 30 Mg Tablet) 120 mg PO DAILY@0630 [facility] Last Admin: 02/05/24 06:46 Dose: 120 mg Trazodone HCl (Trazodone Hcl 50 Mg Tablet) 50 mg PO BEDTIME MRX1 PRN PRN Reason: insomnia Last Admin: 01/23/24 21:26 Dose: 50 mg Vitamin D (Cholecalciferol (Vitamin D3) 25 Mcg Tablet) 50 mcg PO DAILY [facility] Last Admin: 02/05/24 08:35 Dose: 50 mcg Zolpidem Tartrate (Zolpidem Tartrate 5 Mg Tablet) 5 mg PO BEDTIME PRN PRN Reason: Insomnia Last Admin: 02/04/24 21:01 Dose: 5 mg Allergies Allergies Allergy/AdvReac Type Severity Reaction Status Date / Time amoxicillin Allergy Unknown Verified 01/28/24 09:22 Assessment & Plan Assessment & Plan (1) Bipolar affective disorder, manic, severe, with psychotic behavior: Status: Acute Code(s): F31.2 - Bipolar disorder, current episode manic severe with psychotic features Assessment and Plan: r/o schizoaffective bipolar type (2) PTSD (post-traumatic stress disorder): Status: Acute Code(s): F43.10 - Post-traumatic stress disorder, unspecified Plan 12/28: taper VPA and lamictal; start tegretol instead. do not restart caplyta; start abilify instead (had been on 20 mg in the past). ambien while hospitalized only for sleep. continue cogentin 0.5 BID and seroquel 25 TID PRN for now. continue porcine thyroid hormone. 12/29: DC lamictal entirely. increase abilify to 10 QHS. otherwise continue current mgmt. less verbose and voluble than yesterday. 12/30: increase tegretol to 200 BID, decrease VPA to 500 QHS. will discuss abilify versus vraylar with pt. grossly psychotic today. 12/31: DC VPA. declining vraylar, insisting on staying on abilify. becca slightly improved. 01/01: improved manic Sx. continue current mgmt. prefers to stay at abilify 10 for now. 01/02: remains mildly improved. increase abilify to 15 mg tonight. continue regimen otherwise. 01/03: increase abilify to 20 mg QHS. remains highly impaired, but mildly improved from earlier in stay. continue current mgmt otherwise. 01/04 continue tx. some paranoia present but accepting tx. 01/06: continue current tx plan. 01/07: continues paranoid about going home. Requesting increase in ambien. Ambien increased to 10mg PO bedtime. 01/08: Patient reports feeling good today; reports improved sleep with taking trazodone last evening. however refused ambien despite asking for increase. Pt requesting to have magnesium changed to daily. Continues focused on people trying to harm her. 01/09: continue current tx plan. 01/10: increase abilify to 30 mg daily. check labs tonight. not as improved on current regimen as had been hoped. 01/11: tegretol 8.6 (5-12). increase tegretol to 300 BID. continues manic, paranoid delusions. 01/12: as for yesterday in presentation. c/o poor sleep, grogginess in morning. agrees to increase HS seroquel and DC trazodone. 01/13: slept better, thoughts slower, feels starting to improve. continue current mgmt. 01/14: poor sleep, asking for increased seroquel available at HS. paranoid delusions continue. incr HS seroquel PRNs. 01/16/2024: No changes. Continue current regimen. 01/16: increase night time seroquel to 75mg scheduled 01/17: continue current mgmt. remains gradually improving. check labs tomorrow night. 01/18: inconsistent day to day. today more paranoid and delusional content. check labs tonight, if historical dosing is any guide will likely increase tegretol tomorrow. reports having slept well last night for the first time since admission. 01/19: tegretol 9.1. increase dosing to 400 BID as of today. remains attenuated manic. continue current mgmt otherwise. 01/20: a shade improved from yesterday. split tegretol 200/200/400. otherwise continue current mgmt. 01/21: notably improved. continue current mgmt aside from decrease cogentin 0.5 BID to 0.25 BID. 01/23/2024: In an effort to maximize Tegretol dosing and adherence, will change from total daily dose 800 mg down to total daily dose 700 mg (300 mg morning and 400 mg at bedtime), as patient is currently declining 400 mg in the morning, but accepting 400 mg at bedtime. Otherwise no changes 01/23: no changes 01/24: per pt request, tegretol dosing changed to 300/100/300. the decision is made to DC abilify due to lack of progress and return to seroquel at HS. initial dosing 200 mg, to titrate as indicated. 3-day up 01/26. 01/25: improved sleep, but still disrupted. increase HS seroquel to 300 mg. c/o hand tremor, increase cogentin back to 0.5 BID. gradual daily trend of improvement. 3-day up tomorrow. 01/26: rescinded 3-day notice. wants to DC thursday. refusing tegretol dose increase or labs tomorrow night, says she'll see Dr. Mcdonald and discuss with him. worsening paranoid delusions. 01/27: informed she will not discharge tomorrow, signed 3-day notice again. agreed to increase tegretol to 300 TID. states she slept well last night. continue current regimen otherwise, 3-day up 02/01. 01/28: slept well last night, mood improved (slowed). continue current mgmt. 3-day up 02/01, planning to discharge that day. 01/31 This Thursday, nursing reports she was talking about inappropriate sexual topics to peers who distanced themselves from her Again on Thursday, pt saying bizarre, disturbing things to peers, often talking about rape, while they were eating and again causing peers to avoid her. 02/01 Retracted 3 day and took depakote last night. Perhaps a little more calm -continue Depakote (pt progressed in previous admissions when Depakote part of regimen) 02/02: remains hypersexual, making sexual references, feeling her body as she walks down hallway. manic, disorganized in speech and behavior. depakote ordered. 02/03: remains manic, worse so than late last week. refusing VPA; DC order. pt declining to take a therapeutic dose of tegretol, encourage pt to take increased dose. declines to increase seroquel dosing at HS, does allow for tegretol dosing to be consolidated to BID from TID, but only at 800 mg daily. 3-day up 02/07. 02/04: appears much more calm and less driven by paranoid delusions today. agreeable to increase VPA to 300/600, declines to increase seroquel. 3-day notice up 02/07, plan to discharge same day. check labs 02/07 morning. Reason for continued inpatient stay Substantial Risk for: inability to function and rapid decompensation Time Spent With Patient Time: Total time managing care of this patient today __35__ minutes.
[2024-02-05 19:36] VITALS: BP 132/63; PULSE 86; RESP 16; TEMP 37.6; O2SAT 92
[2024-02-05] MEDS: carBAMazepine ER 200 MG TAB.ER.12H 600 MG PO (20:30)
[2024-02-05] MEDS: clonazePAM 1 MG TABLET PO (20:31)
[2024-02-05] MEDS: Atorvastatin Calcium 40 MG TABLET PO (20:31)
[2024-02-05] MEDS: Zolpidem Tartrate 5 MG TABLET PO (20:31)
[2024-02-05] MEDS: Melatonin 3 MG TABLET 9 MG PO (20:31)
[2024-02-05] MEDS: QUEtiapine Fumarate 300 MG TABLET PO (20:32)
[2024-02-06] MEDS: Omeprazole 20 MG CAPSULE.DR PO (06:37)
[2024-02-06] MEDS: Thyroid,Pork 30 MG TABLET 120 MG PO (06:37)
[2024-02-06 06:58] LABS: Glucose, Whole Blood 106 mg/dL (60-115)
[2024-02-06 07:00] VITALS: BP 129/59; PULSE 86; RESP 16; TEMP 36.2; O2SAT 95
[2024-02-06 08:25] VITALS: BP 127/62; PULSE 89; RESP 18; TEMP 36.3; O2SAT 97
[2024-02-06] MEDS: carBAMazepine ER 100 MG TAB.ER.12H 300 MG PO (09:17)
[2024-02-06] MEDS: Pyridoxine HCl (Vitamin B6) 50 MG TABLET 25 MG PO (09:18)
[2024-02-06] MEDS: Cholecalciferol (Vitamin D3) 25 MCG TABLET 50 MCG PO (09:19)
[2024-02-06] MEDS: Apixaban 2.5 MG TABLET 7.5 MG PO ×2 (09:19→21:39)
[2024-02-06] MEDS: Magnesium Oxide 400 MG TABLET PO (09:19)
[2024-02-06] MEDS: Furosemide 20 MG TABLET PO (09:20)
[2024-02-06] MEDS: Benztropine Mesylate 0.5 MG TABLET PO ×2 (09:20→21:38)
[2024-02-06] MEDS: Cyanocobalamin (Vitamin B-12) 100 MCG TABLET PO (09:20)
[2024-02-06] MEDS: Metoprolol Succinate ER 25 MG TAB.ER.24H PO (09:20)
--- NOTE | 2024-02-06 10:28 | P.PNPSI_ITS ---
Subjective Subjective Date of Service: 02/06/24 Reason For Visit: Mood Disorder Interim History: Patient seen and discussed with staff. Remains pressured and manic. Seen dancing to music in the common area. Patient talkative. Tangential. Only agreed to take 400 mg of Tegretol last night rather than 600 mg as agreed earlier when meeting with her provider. 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 3 day expires on 02/07. 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 Remains expansive. Review of Systems Review of Systems unremarkable Yes all other systems are reviewed and are negative Constitutional: Reports as per HPI, Denies fatigue and Denies fever(s) Eyes: Reports as per HPI Reports as per HPI Cardiovascular: Reports as per HPI, Denies chest pain and Denies dyspnea Respiratory: Reports as per HPI and Denies dyspnea Gastrointestinal: Reports as per HPI and Denies abdominal pain Musculoskeletal: Reports as per HPI Skin/Breast: Reports as per HPI Reports as per HPI Psychiatric: Reports as per HPI Endocrine: Reports as per HPI and Denies fatigue Hematologic/Lymphatic: Reports as per HPI Allergic/Immunologic: Reports as per HPI Mental Status Exam Mental Status Exam Narrative: Pt is alert and oriented; behavior is calm, cooperative; dressed in casual attire; eye contact appropriate; Speech is incr rate, increased amount, nml loudness, nml latency. Grandiose and paranoid delusions. no SI/HI/AVH expressed. Diagnostics Vital Signs (24Hr): Vital Signs - 24 hr 02/05/24 19:36 02/06/24 07:00 02/06/24 08:25 Temperature 99.7 F 97.2 F 97.3 F Pulse Rate 86 86 89 Respiratory Rate 16 16 18 Blood Pressure 132/63 129/59 L 127/62 Pulse Oximetry 92 95 97 Oxygen Delivery Method Room Air Room Air Room Air BMI result Body Mass Index 35.6 Labs 01/19/24 20:24 01/19/24 20:23 Labs: Laboratory Results - last 48 hr 02/05/24 02/06/24 07:58 06:54 POC Glucose 128 H 106 Medications Medications Current Medications Acetaminophen (Acetaminophen 325 Mg Tablet) 650 mg PO Q6H PRN PRN Reason: Headache/Pain Mild Scale (1-3) Last Admin: 01/11/24 03:28 Dose: 325 mg Al Hydroxide/Mg Hydroxide (Magnesium Hydrox/Alum Hydrox 30 Ml Oral.Susp) 30 ml PO Q6H PRN PRN Reason: Heartburn/Nausea Last Admin: 01/01/24 13:24 Dose: 30 ml Apixaban (Apixaban 2.5 Mg Tablet) 7.5 mg PO BID [facility] Last Admin: 02/06/24 09:19 Dose: 7.5 mg Atorvastatin Calcium (Atorvastatin Calcium 40 Mg Tablet) 40 mg PO BEDTIME [facility]ERNARDA Last Admin: 02/05/24 20:31 Dose: 40 mg Benztropine Mesylate (Benztropine Mesylate 0.5 Mg Tablet) 0.5 mg PO BID [facility] Last Admin: 02/06/24 09:20 Dose: 0.5 mg Carbamazepine (Carbamazepine Er 100 Mg Tab.Er.12h) 300 mg PO DAILY [facility] Last Admin: 02/06/24 09:17 Dose: 300 mg Carbamazepine (Carbamazepine Er 200 Mg Tab.Er.12h) 600 mg PO BEDTIME BERNARDA Last Admin: 02/05/24 20:30 Dose: 400 mg Clonazepam (Clonazepam 1 Mg Tablet) 1 mg PO BID PRN PRN Reason: severe anxiety Last Admin: 02/05/24 20:31 Dose: 1 mg Cyanocobalamin (Cyanocobalamin (Vitamin B-12) 100 Mcg Tablet) 100 mcg PO DAILY [facility] Last Admin: 02/06/24 09:20 Dose: 100 mcg Furosemide (Furosemide 20 Mg Tablet) 20 mg PO DAILY [facility]; Protocol Last Admin: 02/06/24 09:20 Dose: 20 mg Insulin Human Lispro (Insulin Lispro 100 Unit/Ml 3 Ml Vial) 0 unit SUBCUT BID [facility]; Protocol Last Admin: 02/06/24 09:32 Dose: Not Given Magnesium Hydroxide (Milk Of Magnesia 30 Ml Oral.Susp) 30 ml PO DAILY PRN PRN Reason: Constipation Last Admin: 02/02/24 13:00 Dose: 30 ml Magnesium Oxide (Magnesium Oxide 400 Mg Tablet) 400 mg PO DAILY [facility] Last Admin: 02/06/24 09:19 Dose: 400 mg Melatonin (Melatonin 3 Mg Tablet) 9 mg PO BEDTIME PRN PRN Reason: Insomnia Last Admin: 02/05/24 20:31 Dose: 9 mg Metoprolol Succinate (Metoprolol Succinate Er 25 Mg Tab.Er.24h) 25 mg PO DAILY [facility]; Protocol Last Admin: 02/06/24 09:20 Dose: 25 mg Nicotine Polacrilex (Nicotine Polacrilex 2 Mg Gum) 2 mg BUCCAL Q2H PRN PRN Reason: Nicotine Cravings Pt Own(Dulaglutide [ Trulicity] 1.5 Mg/0. 5 Ml Pen Injector) 1.5 mg SUBCUT Th [facility] Last Admin: 02/04/24 10:16 Dose: 1.5 mg Omeprazole (Omeprazole 20 Mg Capsule.Dr) 20 mg PO DAILY@629 [facility] Last Admin: 02/06/24 06:37 Dose: 20 mg Ondansetron HCl (Ondansetron Odt 4 Mg Tab.Rapdis) 4 mg TRANSLINGU Q6H PRN PRN Reason: Nausea Last Admin: 01/25/24 07:45 Dose: 4 mg Polyethylene Glycol (Polyethylene Glycol 3350 17 Gm Powd.Pack) 17 gm PO DAILY PRN PRN Reason: Constipation Last Admin: 02/02/24 13:02 Dose: 17 gm Pyridoxine HCl (Pyridoxine Hcl (Vitamin B6) 50 Mg Tablet) 25 mg PO DAILY [facility] Last Admin: 02/06/24 09:18 Dose: 25 mg Quetiapine Fumarate (Quetiapine Fumarate 25 Mg Tablet) 25 mg PO TID PRN PRN Reason: anxieety Last Admin: 01/30/24 14:55 Dose: 25 mg Quetiapine Fumarate (Quetiapine Fumarate 300 Mg Tablet) 300 mg PO BEDTIME [facility] Last Admin: 02/05/24 20:32 Dose: 300 mg Sodium Biphosphate/Sodium Phosphate (Sodium Phosphate,[place]-Dibasic 133 Ml Enema) 133 ml [place] ONCE PRN PRN Reason: Constipation Last Admin: 01/18/24 06:30 Dose: 133 ml Thyroid (Thyroid,Pork 30 Mg Tablet) 120 mg PO DAILY@629 [facility] Last Admin: 02/06/24 06:37 Dose: 120 mg Trazodone HCl (Trazodone Hcl 50 Mg Tablet) 50 mg PO BEDTIME MRX1 PRN PRN Reason: insomnia Last Admin: 01/23/24 21:26 Dose: 50 mg Vitamin D (Cholecalciferol (Vitamin D3) 25 Mcg Tablet) 50 mcg PO DAILY [facility] Last Admin: 02/06/24 09:19 Dose: 50 mcg Zolpidem Tartrate (Zolpidem Tartrate 5 Mg Tablet) 5 mg PO BEDTIME PRN PRN Reason: Insomnia Last Admin: 02/05/24 20:31 Dose: 5 mg Allergies Allergies Allergy/AdvReac Type Severity Reaction Status Date / Time amoxicillin Allergy Unknown Verified 01/28/24 09:22 Assessment & Plan Assessment & Plan (1) Bipolar affective disorder, manic, severe, with psychotic behavior: Status: Acute Code(s): F31.2 - Bipolar disorder, current episode manic severe with psychotic features Assessment and Plan: r/o schizoaffective bipolar type (2) PTSD (post-traumatic stress disorder): Status: Acute Code(s): F43.10 - Post-traumatic stress disorder, unspecified Plan 12/28: taper VPA and lamictal; start tegretol instead. do not restart caplyta; start abilify instead (had been on 20 mg in the past). ambien while hospitalized only for sleep. continue cogentin 0.5 BID and seroquel 25 TID PRN for now. continue porcine thyroid hormone. 12/29: DC lamictal entirely. increase abilify to 10 QHS. otherwise continue current mgmt. less verbose and voluble than yesterday. 12/30: increase tegretol to 200 BID, decrease VPA to 500 QHS. will discuss abilify versus vraylar with pt. grossly psychotic today. 12/31: DC VPA. declining vraylar, insisting on staying on abilify. becca slightly improved. 01/01: improved manic Sx. continue current mgmt. prefers to stay at abilify 10 for now. 01/02: remains mildly improved. increase abilify to 15 mg tonight. continue regimen otherwise. 01/03: increase abilify to 20 mg QHS. remains highly impaired, but mildly improved from earlier in stay. continue current mgmt otherwise. 01/04 continue tx. some paranoia present but accepting tx. 01/06: continue current tx plan. 01/07: continues paranoid about going home. Requesting increase in ambien. Ambien increased to 10mg PO bedtime. 01/08: Patient reports feeling good today; reports improved sleep with taking trazodone last evening. however refused ambien despite asking for increase. Pt requesting to have magnesium changed to daily. Continues focused on people trying to harm her. 01/09: continue current tx plan. 01/10: increase abilify to 30 mg daily. check labs tonight. not as improved on current regimen as had been hoped. 01/11: tegretol 8.6 (5-12). increase tegretol to 300 BID. continues manic, paranoid delusions. 01/12: as for yesterday in presentation. c/o poor sleep, grogginess in morning. agrees to increase HS seroquel and DC trazodone. 01/13: slept better, thoughts slower, feels starting to improve. continue current mgmt. 01/14: poor sleep, asking for increased seroquel available at HS. paranoid delusions continue. incr HS seroquel PRNs. 01/16/2024: No changes. Continue current regimen. 01/16: increase night time seroquel to 75mg scheduled 01/17: continue current mgmt. remains gradually improving. check labs tomorrow night. 01/18: inconsistent day to day. today more paranoid and delusional content. check labs tonight, if historical dosing is any guide will likely increase tegretol tomorrow. reports having slept well last night for the first time since admission. 01/19: tegretol 9.1. increase dosing to 400 BID as of today. remains attenuated manic. continue current mgmt otherwise. 01/20: a shade improved from yesterday. split tegretol 200/200/400. otherwise continue current mgmt. 01/21: notably improved. continue current mgmt aside from decrease cogentin 0.5 BID to 0.25 BID. 01/23/2024: In an effort to maximize Tegretol dosing and adherence, will change from total daily dose 800 mg down to total daily dose 700 mg (300 mg morning and 400 mg at bedtime), as patient is currently declining 400 mg in the morning, but accepting 400 mg at bedtime. Otherwise no changes 01/23: no changes 01/24: per pt request, tegretol dosing changed to 300/100/300. the decision is made to DC abilify due to lack of progress and return to seroquel at HS. initial dosing 200 mg, to titrate as indicated. 3-day up 01/26. 01/25: improved sleep, but still disrupted. increase HS seroquel to 300 mg. c/o hand tremor, increase cogentin back to 0.5 BID. gradual daily trend of improvement. 3-day up tomorrow. 01/26: rescinded 3-day notice. wants to DC thursday. refusing tegretol dose increase or labs tomorrow night, says she'll see Dr. Mcdonald and discuss with him. worsening paranoid delusions. 01/27: informed she will not discharge tomorrow, signed 3-day notice again. agreed to increase tegretol to 300 TID. states she slept well last night. continue current regimen otherwise, 3-day up 02/01. 01/28: slept well last night, mood improved (slowed). continue current mgmt. 3-day up 02/01, planning to discharge that day. 01/31 This Thursday, nursing reports she was talking about inappropriate sexual topics to peers who distanced themselves from her Again on Thursday, pt saying bizarre, disturbing things to peers, often talking about rape, while they were eating and again causing peers to avoid her. 02/01 Retracted 3 day and took depakote last night. Perhaps a little more calm - continue Depakote (pt progressed in previous admissions when Depakote part of regimen) 02/02: remains hypersexual, making sexual references, feeling her body as she walks down hallway. manic, disorganized in speech and behavior. depakote ordered. 02/03: remains manic, worse so than late last week. refusing VPA; DC order. pt declining to take a therapeutic dose of tegretol, encourage pt to take increased dose. declines to increase seroquel dosing at HS, does allow for tegretol dosing to be consolidated to BID from TID, but only at 800 mg daily. 3-day up 02/07. 02/04: appears much more calm and less driven by paranoid delusions today. agreeable to increase VPA to 300/600, declines to increase seroquel. 3-day notice up 02/07, plan to discharge same day. check labs 02/07 morning. 02/05: Manic. Encouraged to take full dose HS Tegretol as she discussed with Dr. Caldwell. Reason for continued inpatient stay Substantial Risk for: inability to function and rapid decompensation Time Spent With Patient Time: Total time managing care of this patient today ____ minutes.
[2024-02-06] MEDS: Atorvastatin Calcium 40 MG TABLET PO (21:38)
[2024-02-06] MEDS: carBAMazepine ER 200 MG TAB.ER.12H 600 MG PO (21:38)
[2024-02-06] MEDS: clonazePAM 1 MG TABLET PO (21:38)
[2024-02-06] MEDS: QUEtiapine Fumarate 300 MG TABLET PO (21:38)
[2024-02-06] MEDS: Zolpidem Tartrate 5 MG TABLET PO (21:39)
[2024-02-06] MEDS: Melatonin 3 MG TABLET 9 MG PO (21:39)
[2024-02-06 21:47] LABS: Glucose, Whole Blood 152 mg/dL (60-115)
[2024-02-07] MEDS: Omeprazole 20 MG CAPSULE.DR PO (06:35)
[2024-02-07] MEDS: Thyroid,Pork 30 MG TABLET 120 MG PO (06:35)
[2024-02-07 07:35] LABS: Glucose, Whole Blood 96 mg/dL (60-115)
[2024-02-07 07:50] VITALS: BP 123/59; PULSE 88; RESP 18; TEMP 36.6; O2SAT 97
[2024-02-07] MEDS: Pyridoxine HCl (Vitamin B6) 50 MG TABLET 25 MG PO (08:14)
[2024-02-07] MEDS: Apixaban 2.5 MG TABLET 7.5 MG PO ×2 (08:15→21:36)
[2024-02-07] MEDS: carBAMazepine ER 100 MG TAB.ER.12H 300 MG PO (08:16)
[2024-02-07] MEDS: Cyanocobalamin (Vitamin B-12) 100 MCG TABLET PO (08:17)
[2024-02-07] MEDS: Cholecalciferol (Vitamin D3) 25 MCG TABLET 50 MCG PO (08:17)
[2024-02-07] MEDS: Furosemide 20 MG TABLET PO (08:17)
[2024-02-07] MEDS: Benztropine Mesylate 0.5 MG TABLET PO ×2 (08:18→21:36)
[2024-02-07] MEDS: Metoprolol Succinate ER 25 MG TAB.ER.24H PO (08:18)
[2024-02-07] MEDS: Magnesium Oxide 400 MG TABLET PO (08:18)
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
[2024-02-07] MEDS: Milk of Magnesia 30 ML ORAL.SUSP PO (13:20)
[2024-02-07] MEDS: polyethylene glycoL 3350 17 GM POWD.PACK PO (13:21)
[2024-02-07] MEDS: clonazePAM 1 MG TABLET PO ×2 (15:37→21:43)
[2024-02-07 19:55] VITALS: BP 170/74; PULSE 99; RESP 18; TEMP 36.8; O2SAT 96
[2024-02-07 21:11] VITALS: BP 138/69; PULSE 92; RESP 18
[2024-02-07] MEDS: Atorvastatin Calcium 40 MG TABLET PO (21:35)
[2024-02-07] MEDS: QUEtiapine Fumarate 300 MG TABLET PO (21:35)
[2024-02-07] MEDS: carBAMazepine ER 200 MG TAB.ER.12H 600 MG PO (21:36)
[2024-02-08] MEDS: Zolpidem Tartrate 5 MG TABLET PO (02:33)
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
[2024-02-08] MEDS: Thyroid,Pork 30 MG TABLET 120 MG PO (05:33)
[2024-02-08] MEDS: Omeprazole 20 MG CAPSULE.DR PO (07:03)
[2024-02-08 07:58] LABS: Glucose, Whole Blood 105 mg/dL (60-115)
[2024-02-08 08:10] LABS: MANUAL DIFF FLAG NO
[2024-02-08 08:22] LABS: Basophils Percent Auto 0.3 % (0-2); Eosinophils Absolute Auto 0.1 X10*3/uL (0.0-0.4); Eosinophils Percent Auto 1.4 % (0-4); Hematocrit 35.4 % (37.0-47.0); Hemoglobin 11.7 g/dl (12.0-16.0); Imm Gran Abs Auto 0.08 X10*3/uL (0.00-0.03); Imm Gran Pct Auto 0.9 % (0.0-0.4); Lymphocytes Absolute Auto 4.2 X10*3/uL (1.2-4.9); Lymphocytes Percent Auto 44.9 % (20-40); Mean Corpuscular HGB Conc 33.1 g/dl (31.0-35.0); Mean Corpuscular Hemoglobin 31.9 pg (27.0-33.0); Mean Corpuscular Volume 96.5 fL (80.0-98.0); Mean Platelet Volume 9.9 fL (9.4-12.3); Monocytes Absolute Auto 0.7 X10*3/uL (0.1-1.2); Monocytes Percent Auto 7.6 % (2-11); NRBC Pct Auto 0.3 /100WBC (0.0-0.2); Neutrophils Absolute Auto 4.2 x10*3/uL (2.0-8.3); Neutrophils Percent Auto 44.9 % (45-73); Platelet Count 172 X10*3/uL (160-400); Red Blood Count 3.67 X10*6/uL (4.20-5.50); Red Cell Distribution Width 13.8 % (11.0-16.0); White Blood Count 9.4 X10*3/uL (4.8-10.8)
[2024-02-08 08:26] LABS: Carbamazepine Tegretol 8.6 mcg/mL (5.0-12.0)
[2024-02-08 08:28] LABS: Alanine Aminotransferase 24 U/L (0-31); Albumin Level 3.8 g/dL (3.5-5.0); Alkaline Phosphatase 82 U/L (39-117); Anion Gap 13 (12-20); Aspartate Amino Transferase 23 U/L (5-31); Bilirubin Direct < 0.2 mg/dL (0.0-0.5); Bilirubin Total 0.2 mg/dL (0.0-1.0); Blood Urea Nitrogen 15 mg/dL (9-16); Calcium 9.5 mg/dL (8.4-10.2); Carbon Dioxide 30 mmol/L (22-29); Chloride 104 mmol/L (96-108); Creatinine Clr Calc Pharmacy 98.9; Estimated Glomerular Filt Rate > 60; Glucose Random 104 mg/dL (60-115); Potassium 4.9 mmol/L (3.3-5.1); Sodium 142 mmol/L (135-145); Total Protein 6.4 g/dL (6.5-8.0)
[2024-02-08 08:38] VITALS: BP 139/62; PULSE 90; RESP 16; TEMP 37.1; O2SAT 98
[2024-02-08] MEDS: Magnesium Hydrox/Alum Hydrox 30 ML ORAL.SUSP PO (09:17)
[2024-02-08] MEDS: Metoprolol Succinate ER 25 MG TAB.ER.24H PO (09:18)
[2024-02-08] MEDS: Cyanocobalamin (Vitamin B-12) 100 MCG TABLET PO (09:18)
[2024-02-08] MEDS: Magnesium Oxide 400 MG TABLET PO (09:18)
[2024-02-08] MEDS: Apixaban 2.5 MG TABLET 7.5 MG PO ×2 (09:18→21:05)
[2024-02-08] MEDS: Benztropine Mesylate 0.5 MG TABLET PO ×2 (09:18→21:05)
[2024-02-08] MEDS: carBAMazepine ER 100 MG TAB.ER.12H 300 MG PO (09:18)
[2024-02-08] MEDS: Cholecalciferol (Vitamin D3) 25 MCG TABLET 50 MCG PO (09:19)
[2024-02-08] MEDS: Furosemide 20 MG TABLET PO (09:19)
[2024-02-08] MEDS: Pyridoxine HCl (Vitamin B6) 50 MG TABLET 25 MG PO (09:19)
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
[2024-02-08 20:00] VITALS: RESP 20
[2024-02-08] MEDS: carBAMazepine ER 200 MG TAB.ER.12H 600 MG PO (21:05)
[2024-02-08] MEDS: QUEtiapine Fumarate 300 MG TABLET PO (21:05)
[2024-02-08] MEDS: Atorvastatin Calcium 40 MG TABLET PO (21:05)
[2024-02-08] MEDS: clonazePAM 1 MG TABLET PO (21:09)
[2024-02-08] MEDS: Mineral OiL enema 133 ML ENEMA PR (21:10)
[2024-02-09] MEDS: Thyroid,Pork 30 MG TABLET 120 MG PO (05:46)
[2024-02-09] MEDS: Omeprazole 20 MG CAPSULE.DR PO (06:26)
[2024-02-09 07:40] VITALS: BP 138/67; PULSE 85; RESP 16; TEMP 36.4; O2SAT 94
[2024-02-09 07:53] LABS: Glucose, Whole Blood 119 mg/dL (60-115)
[2024-02-09] MEDS: Cyanocobalamin (Vitamin B-12) 100 MCG TABLET PO (08:38)
[2024-02-09 08:39] VITALS: BP 138/67
[2024-02-09] MEDS: Furosemide 20 MG TABLET PO (08:39)
[2024-02-09] MEDS: Cholecalciferol (Vitamin D3) 25 MCG TABLET 50 MCG PO (08:39)
[2024-02-09 08:40] VITALS: BP 138/67; PULSE 85
[2024-02-09] MEDS: Magnesium Oxide 400 MG TABLET PO (08:40)
[2024-02-09] MEDS: Metoprolol Succinate ER 25 MG TAB.ER.24H PO (08:40)
[2024-02-09] MEDS: Apixaban 2.5 MG TABLET 7.5 MG PO ×2 (08:40→21:10)
[2024-02-09] MEDS: carBAMazepine ER 100 MG TAB.ER.12H 300 MG PO ×2 (08:40→16:22)
[2024-02-09] MEDS: Benztropine Mesylate 0.5 MG TABLET PO ×2 (08:40→21:11)
[2024-02-09] MEDS: Pyridoxine HCl (Vitamin B6) 50 MG TABLET 25 MG PO (09:07)
[2024-02-09] MEDS: Milk of Magnesia 30 ML ORAL.SUSP PO (13:05)
[2024-02-09] MEDS: polyethylene glycoL 3350 17 GM POWD.PACK PO (16:22)
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
[2024-02-09] MEDS: QUEtiapine Fumarate 400 MG TABLET PO (21:11)
[2024-02-09] MEDS: Atorvastatin Calcium 40 MG TABLET PO (21:11)
[2024-02-09] MEDS: Zolpidem Tartrate 5 MG TABLET PO (21:11)
[2024-02-09] MEDS: clonazePAM 1 MG TABLET PO (21:11)
[2024-02-09] MEDS: Melatonin 3 MG TABLET 9 MG PO (21:11)
[2024-02-10 07:40] VITALS: BP 115/55; PULSE 88; RESP 14; TEMP 37.2; O2SAT 92
[2024-02-10 07:40] LABS: Glucose, Whole Blood 100 mg/dL (60-115)
[2024-02-10] MEDS: Apixaban 2.5 MG TABLET 7.5 MG PO ×2 (08:48→22:06)
[2024-02-10] MEDS: Thyroid,Pork 30 MG TABLET 120 MG PO (08:48)
[2024-02-10] MEDS: Furosemide 20 MG TABLET PO (08:49)
[2024-02-10] MEDS: Benztropine Mesylate 0.5 MG TABLET PO ×2 (08:49→22:05)
[2024-02-10] MEDS: Pyridoxine HCl (Vitamin B6) 50 MG TABLET 25 MG PO (08:49)
[2024-02-10] MEDS: Cholecalciferol (Vitamin D3) 25 MCG TABLET 50 MCG PO (08:49)
[2024-02-10] MEDS: Cyanocobalamin (Vitamin B-12) 100 MCG TABLET PO (08:50)
[2024-02-10] MEDS: Magnesium Oxide 400 MG TABLET PO (08:51)
[2024-02-10] MEDS: Omeprazole 20 MG CAPSULE.DR PO (08:52)
[2024-02-10] MEDS: carBAMazepine ER 100 MG TAB.ER.12H 300 MG PO ×2 (08:52→15:00)
[2024-02-10 08:55] VITALS: BP 118/64; PULSE 78
[2024-02-10] MEDS: Metoprolol Succinate ER 25 MG TAB.ER.24H PO (08:55)
[2024-02-10] MEDS: Milk of Magnesia 30 ML ORAL.SUSP PO (10:42)
[2024-02-10] MEDS: polyethylene glycoL 3350 17 GM POWD.PACK PO (10:42)
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
[2024-02-10] MEDS: clonazePAM 1 MG TABLET PO (16:10)
[2024-02-10 19:59] VITALS: BP 109/61; PULSE 96; RESP 18; TEMP 36.6; O2SAT 100
[2024-02-10] MEDS: QUEtiapine Fumarate 400 MG TABLET PO (22:05)
[2024-02-10] MEDS: Atorvastatin Calcium 40 MG TABLET PO (22:05)
[2024-02-10] MEDS: Melatonin 3 MG TABLET 9 MG PO (22:22)
[2024-02-10] MEDS: Zolpidem Tartrate 5 MG TABLET PO (22:22)
[2024-02-11] MEDS: Thyroid,Pork 30 MG TABLET 120 MG PO (06:02)
[2024-02-11] MEDS: Omeprazole 20 MG CAPSULE.DR PO (06:02)
[2024-02-11 07:20] VITALS: BP 148/67; PULSE 89; RESP 14; TEMP 36.6; O2SAT 93
[2024-02-11 07:38] LABS: Glucose, Whole Blood 130 mg/dL (60-115)
[2024-02-11] MEDS: Magnesium Oxide 400 MG TABLET PO (09:22)
[2024-02-11] MEDS: Apixaban 2.5 MG TABLET 7.5 MG PO ×2 (09:23→21:51)
[2024-02-11] MEDS: Cyanocobalamin (Vitamin B-12) 100 MCG TABLET PO (09:24)
[2024-02-11] MEDS: Cholecalciferol (Vitamin D3) 25 MCG TABLET 50 MCG PO (09:24)
[2024-02-11] MEDS: Pyridoxine HCl (Vitamin B6) 50 MG TABLET 25 MG PO (09:24)
[2024-02-11] MEDS: Benztropine Mesylate 0.5 MG TABLET PO ×2 (09:25→21:51)
[2024-02-11] MEDS: carBAMazepine ER 100 MG TAB.ER.12H 300 MG PO (09:25)
[2024-02-11 09:28] VITALS: BP 161/119
[2024-02-11] MEDS: Furosemide 20 MG TABLET PO (09:28)
[2024-02-11 09:57] VITALS: BP 161/119; PULSE 104
[2024-02-11] MEDS: Metoprolol Succinate ER 25 MG TAB.ER.24H PO (09:57)
[2024-02-11 10:00] VITALS: BMI 35.7
[2024-02-11] MEDS: DULAGLUTIDE 1.5 MG/0.5 ML 1.5 EACH SUBCUT (15:00)
[2024-02-11] MEDS: carBAMazepine 200 MG/10 ML ORAL.SUSP 300 MG PO ×2 (15:01→21:50)
[2024-02-11] MEDS: clonazePAM 1 MG TABLET PO (15:09)
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
[2024-02-11 17:30] VITALS: BP 142/66; PULSE 74; RESP 18
[2024-02-11 20:00] VITALS: RESP 16
[2024-02-11] MEDS: Sennosides/Docusate Sodium TABLET 1 TAB PO (21:50)
[2024-02-11] MEDS: QUEtiapine Fumarate 400 MG TABLET PO (21:51)
[2024-02-11] MEDS: Zolpidem Tartrate 5 MG TABLET PO (21:51)
[2024-02-11] MEDS: Atorvastatin Calcium 40 MG TABLET PO (21:52)
[2024-02-11] MEDS: Melatonin 3 MG TABLET 9 MG PO (21:52)
[2024-02-12] MEDS: Thyroid,Pork 30 MG TABLET 120 MG PO (06:17)
[2024-02-12] MEDS: Omeprazole 20 MG CAPSULE.DR PO (06:17)
[2024-02-12 08:00] VITALS: BP 138/64; PULSE 93; RESP 16; TEMP 36.7; O2SAT 96
[2024-02-12] MEDS: Pyridoxine HCl (Vitamin B6) 50 MG TABLET 25 MG PO (08:29)
[2024-02-12 08:30] LABS: Glucose, Whole Blood 127 mg/dL (60-115)
[2024-02-12] MEDS: Cholecalciferol (Vitamin D3) 25 MCG TABLET 50 MCG PO (08:30)
[2024-02-12] MEDS: Cyanocobalamin (Vitamin B-12) 100 MCG TABLET PO (08:30)
[2024-02-12] MEDS: Apixaban 2.5 MG TABLET 7.5 MG PO ×2 (08:30→21:10)
[2024-02-12] MEDS: Furosemide 20 MG TABLET PO (08:30)
[2024-02-12] MEDS: Magnesium Oxide 400 MG TABLET PO (08:31)
[2024-02-12] MEDS: Metoprolol Succinate ER 25 MG TAB.ER.24H PO (08:31)
[2024-02-12] MEDS: Benztropine Mesylate 0.5 MG TABLET PO ×2 (08:31→21:10)
[2024-02-12] MEDS: carBAMazepine 200 MG/10 ML ORAL.SUSP 300 MG PO ×3 (08:31→21:12)
[2024-02-12] MEDS: clonazePAM 1 MG TABLET PO ×2 (14:46→21:11)
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
[2024-02-12 19:45] VITALS: BP 161/78; PULSE 106; RESP 20; TEMP 36.4; O2SAT 92
[2024-02-12] MEDS: Atorvastatin Calcium 40 MG TABLET PO (21:10)
[2024-02-12] MEDS: QUEtiapine Fumarate 400 MG TABLET PO (21:10)
[2024-02-12] MEDS: Zolpidem Tartrate 5 MG TABLET PO (21:11)
[2024-02-12] MEDS: Melatonin 3 MG TABLET 9 MG PO (21:11)
[2024-02-12] MEDS: Sennosides/Docusate Sodium TABLET 1 TAB PO (21:15)
[2024-02-13] MEDS: Omeprazole 20 MG CAPSULE.DR PO (05:32)
[2024-02-13] MEDS: Thyroid,Pork 30 MG TABLET 120 MG PO (05:32)
[2024-02-13 07:55] VITALS: BP 145/68; PULSE 82; RESP 16; TEMP 36.3; O2SAT 95
[2024-02-13 08:44] LABS: Glucose, Whole Blood 128 mg/dL (60-115)
[2024-02-13] MEDS: Pyridoxine HCl (Vitamin B6) 50 MG TABLET 25 MG PO (09:16)
[2024-02-13] MEDS: Cholecalciferol (Vitamin D3) 25 MCG TABLET 50 MCG PO (09:17)
[2024-02-13 09:18] VITALS: BP 145/68; PULSE 82
[2024-02-13] MEDS: Benztropine Mesylate 0.5 MG TABLET PO ×2 (09:18→21:24)
[2024-02-13] MEDS: Metoprolol Succinate ER 25 MG TAB.ER.24H PO (09:18)
[2024-02-13] MEDS: Apixaban 2.5 MG TABLET 7.5 MG PO ×2 (09:19→21:24)
[2024-02-13] MEDS: Cyanocobalamin (Vitamin B-12) 100 MCG TABLET PO (09:19)
[2024-02-13] MEDS: Magnesium Oxide 400 MG TABLET PO (09:19)
[2024-02-13 09:20] VITALS: BP 145/68
[2024-02-13] MEDS: carBAMazepine 200 MG/10 ML ORAL.SUSP 300 MG PO ×3 (09:20→21:23)
[2024-02-13] MEDS: Furosemide 20 MG TABLET PO (09:20)
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
[2024-02-13] MEDS: clonazePAM 1 MG TABLET PO ×2 (16:37→21:24)
[2024-02-13] MEDS: Atorvastatin Calcium 40 MG TABLET PO (21:24)
[2024-02-13] MEDS: Zolpidem Tartrate 5 MG TABLET PO (21:24)
[2024-02-13] MEDS: Melatonin 3 MG TABLET 9 MG PO (21:24)
[2024-02-13] MEDS: QUEtiapine Fumarate 400 MG TABLET PO (21:24)
[2024-02-13] MEDS: Sennosides/Docusate Sodium TABLET 1 TAB PO (21:24)
[2024-02-14] MEDS: Thyroid,Pork 30 MG TABLET 120 MG PO (06:41)
[2024-02-14] MEDS: Omeprazole 20 MG CAPSULE.DR PO (06:42)
[2024-02-14 08:00] VITALS: BP 132/65; PULSE 94; RESP 16; TEMP 36.3; O2SAT 96
[2024-02-14 08:24] LABS: Glucose, Whole Blood 128 mg/dL (60-115)
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
[2024-02-14] MEDS: Cyanocobalamin (Vitamin B-12) 100 MCG TABLET PO (09:41)
[2024-02-14] MEDS: Apixaban 2.5 MG TABLET 7.5 MG PO ×2 (09:42→21:08)
[2024-02-14] MEDS: carBAMazepine 200 MG/10 ML ORAL.SUSP 300 MG PO ×3 (09:42→21:02)
[2024-02-14] MEDS: Benztropine Mesylate 0.5 MG TABLET PO ×2 (09:42→21:06)
[2024-02-14] MEDS: Magnesium Oxide 400 MG TABLET PO (09:42)
[2024-02-14 09:44] VITALS: BP 132/65
[2024-02-14] MEDS: Furosemide 20 MG TABLET PO (09:44)
[2024-02-14] MEDS: Cholecalciferol (Vitamin D3) 25 MCG TABLET 50 MCG PO (09:44)
[2024-02-14 09:45] VITALS: BP 132/65; PULSE 94
[2024-02-14] MEDS: Metoprolol Succinate ER 25 MG TAB.ER.24H PO (09:45)
[2024-02-14] MEDS: Pyridoxine HCl (Vitamin B6) 50 MG TABLET 25 MG PO (09:49)
[2024-02-14] MEDS: clonazePAM 1 MG TABLET PO (09:53)
[2024-02-14] MEDS: polyethylene glycoL 3350 17 GM POWD.PACK PO (11:09)
[2024-02-14] MEDS: Milk of Magnesia 30 ML ORAL.SUSP PO (11:09)
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
[2024-02-14 19:54] VITALS: BP 123/62; PULSE 94; RESP 16; TEMP 36.9; O2SAT 97
--- NOTE | 2024-02-14 19:56 | PC.NURSE ---
Addendum entered by Emani Boateng RN 02/14/24 20:09: pt is a cv by health care proxy. Original Note: pt retracted 3 day notice on 02/14/24. signed a new 3 day notice on 02/14/24. up on 02/17/24.
[2024-02-14] MEDS: Zolpidem Tartrate 5 MG TABLET PO (21:05)
[2024-02-14] MEDS: QUEtiapine Fumarate 400 MG TABLET PO (21:06)
[2024-02-14] MEDS: Atorvastatin Calcium 40 MG TABLET PO (21:07)
[2024-02-14] MEDS: Melatonin 3 MG TABLET 9 MG PO (21:07)
[2024-02-14] MEDS: Sennosides/Docusate Sodium TABLET 1 TAB PO (21:08)
[2024-02-15] MEDS: Thyroid,Pork 30 MG TABLET 120 MG PO (06:35)
[2024-02-15] MEDS: Omeprazole 20 MG CAPSULE.DR PO (06:35)
[2024-02-15 07:49] VITALS: BP 142/70; PULSE 86; RESP 18; TEMP 36.9; O2SAT 95
[2024-02-15 08:14] LABS: Glucose, Whole Blood 128 mg/dL (60-115)
[2024-02-15] MEDS: Furosemide 20 MG TABLET PO (08:15)
[2024-02-15] MEDS: Magnesium Oxide 400 MG TABLET PO (08:15)
[2024-02-15] MEDS: Benztropine Mesylate 0.5 MG TABLET PO ×2 (08:15→21:20)
[2024-02-15] MEDS: Cholecalciferol (Vitamin D3) 25 MCG TABLET 50 MCG PO (08:15)
[2024-02-15] MEDS: Apixaban 2.5 MG TABLET 7.5 MG PO ×2 (08:15→21:19)
[2024-02-15] MEDS: Metoprolol Succinate ER 25 MG TAB.ER.24H PO (08:15)
[2024-02-15] MEDS: Pyridoxine HCl (Vitamin B6) 50 MG TABLET 25 MG PO (08:15)
[2024-02-15] MEDS: Cyanocobalamin (Vitamin B-12) 100 MCG TABLET PO (08:15)
[2024-02-15] MEDS: carBAMazepine 200 MG/10 ML ORAL.SUSP 300 MG PO ×3 (08:16→21:21)
[2024-02-15] MEDS: Milk of Magnesia 30 ML ORAL.SUSP PO (09:34)
[2024-02-15] MEDS: polyethylene glycoL 3350 17 GM POWD.PACK PO (09:34)
[2024-02-15] MEDS: clonazePAM 1 MG TABLET PO (15:14)
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
[2024-02-15] MEDS: Sennosides/Docusate Sodium TABLET 1 TAB PO (21:18)
[2024-02-15] MEDS: Melatonin 3 MG TABLET 9 MG PO (21:19)
[2024-02-15] MEDS: Zolpidem Tartrate 5 MG TABLET PO (21:19)
[2024-02-15] MEDS: Atorvastatin Calcium 40 MG TABLET PO (21:20)
[2024-02-15] MEDS: QUEtiapine Fumarate 400 MG TABLET PO (21:20)
[2024-02-16] MEDS: Omeprazole 20 MG CAPSULE.DR PO (07:25)
[2024-02-16] MEDS: Thyroid,Pork 30 MG TABLET 120 MG PO (07:25)
[2024-02-16 08:00] VITALS: BP 118/72; PULSE 93; RESP 18; TEMP 36.4; O2SAT 95
[2024-02-16 08:17] LABS: Glucose, Whole Blood 116 mg/dL (60-115)
[2024-02-16] MEDS: Pyridoxine HCl (Vitamin B6) 50 MG TABLET 25 MG PO (09:19)
[2024-02-16] MEDS: Magnesium Oxide 400 MG TABLET PO (09:19)
[2024-02-16] MEDS: Furosemide 20 MG TABLET PO (09:19)
[2024-02-16] MEDS: Benztropine Mesylate 0.5 MG TABLET PO ×2 (09:20→21:38)
[2024-02-16] MEDS: Cyanocobalamin (Vitamin B-12) 100 MCG TABLET PO (09:20)
[2024-02-16] MEDS: Cholecalciferol (Vitamin D3) 25 MCG TABLET 50 MCG PO (09:20)
[2024-02-16] MEDS: Apixaban 2.5 MG TABLET 7.5 MG PO ×2 (09:20→21:39)
[2024-02-16] MEDS: Metoprolol Succinate ER 25 MG TAB.ER.24H PO (09:20)
[2024-02-16] MEDS: carBAMazepine 200 MG/10 ML ORAL.SUSP 300 MG PO ×3 (09:21→21:39)
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
[2024-02-16 09:47] LABS: Carbamazepine Tegretol 9.7 mcg/mL (5.0-12.0)
[2024-02-16] MEDS: clonazePAM 1 MG TABLET PO (14:13)
[2024-02-16] MEDS: Milk of Magnesia 30 ML ORAL.SUSP PO (15:46)
[2024-02-16] MEDS: polyethylene glycoL 3350 17 GM POWD.PACK PO (15:46)
[2024-02-16] MEDS: Zolpidem Tartrate 5 MG TABLET PO (21:38)
[2024-02-16] MEDS: Atorvastatin Calcium 40 MG TABLET PO (21:39)
[2024-02-16] MEDS: Sennosides/Docusate Sodium TABLET 1 TAB PO (21:39)
[2024-02-16] MEDS: QUEtiapine Fumarate 400 MG TABLET PO (21:39)
[2024-02-16] MEDS: Melatonin 3 MG TABLET 9 MG PO (21:39)
[2024-02-17 08:00] VITALS: BP 146/65; PULSE 96; RESP 15; TEMP 36.9; O2SAT 93
[2024-02-17 08:14] LABS: Glucose, Whole Blood 118 mg/dL (60-115)
[2024-02-17] MEDS: carBAMazepine 200 MG/10 ML ORAL.SUSP 300 MG PO ×3 (08:47→20:32)
[2024-02-17 08:48] VITALS: BP 146/65; PULSE 96
[2024-02-17] MEDS: Pyridoxine HCl (Vitamin B6) 50 MG TABLET 25 MG PO (08:48)
[2024-02-17] MEDS: Metoprolol Succinate ER 25 MG TAB.ER.24H PO (08:48)
[2024-02-17 08:50] VITALS: BP 146/65
[2024-02-17] MEDS: Benztropine Mesylate 0.5 MG TABLET PO ×2 (08:50→20:32)
[2024-02-17] MEDS: Omeprazole 20 MG CAPSULE.DR PO (08:50)
[2024-02-17] MEDS: Magnesium Oxide 400 MG TABLET PO (08:50)
[2024-02-17] MEDS: Furosemide 20 MG TABLET PO (08:50)
[2024-02-17] MEDS: Cholecalciferol (Vitamin D3) 25 MCG TABLET 50 MCG PO (08:50)
[2024-02-17] MEDS: Apixaban 2.5 MG TABLET 7.5 MG PO ×2 (08:50→20:32)
[2024-02-17] MEDS: Thyroid,Pork 30 MG TABLET 120 MG PO (08:51)
[2024-02-17] MEDS: Cyanocobalamin (Vitamin B-12) 100 MCG TABLET PO (08:51)
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
[2024-02-17] MEDS: clonazePAM 1 MG TABLET PO (14:46)
[2024-02-17 20:00] VITALS: BP 136/79; PULSE 95; TEMP 36.6; O2SAT 97
[2024-02-17] MEDS: QUEtiapine Fumarate 400 MG TABLET PO (20:32)
[2024-02-17] MEDS: Sennosides/Docusate Sodium TABLET 1 TAB PO (20:32)
[2024-02-17] MEDS: Atorvastatin Calcium 40 MG TABLET PO (20:32)
[2024-02-17] MEDS: Zolpidem Tartrate 5 MG TABLET PO (20:38)
[2024-02-17] MEDS: Melatonin 3 MG TABLET 9 MG PO (20:38)
--- NOTE | 2024-02-17 20:44 | PC.NURSE ---
Patient refused to allow staff to do a fingerstick for her blood glucose level; therefore, no insulin administered at this time.
[2024-02-18] MEDS: Thyroid,Pork 30 MG TABLET 120 MG PO (07:11)
[2024-02-18] MEDS: Omeprazole 20 MG CAPSULE.DR PO (07:11)
[2024-02-18 08:14] VITALS: BP 132/66; PULSE 88; TEMP 36.4; O2SAT 94
[2024-02-18 08:21] LABS: Glucose, Whole Blood 153 mg/dL (60-115)
[2024-02-18 08:52] VITALS: BP 132/66
[2024-02-18] MEDS: Furosemide 20 MG TABLET PO (08:52)
[2024-02-18] MEDS: Cholecalciferol (Vitamin D3) 25 MCG TABLET 50 MCG PO (08:53)
[2024-02-18] MEDS: Cyanocobalamin (Vitamin B-12) 100 MCG TABLET PO (08:53)
[2024-02-18] MEDS: Benztropine Mesylate 0.5 MG TABLET PO ×2 (08:55→21:43)
[2024-02-18] MEDS: carBAMazepine 200 MG/10 ML ORAL.SUSP 300 MG PO ×3 (08:55→21:39)
[2024-02-18] MEDS: Magnesium Oxide 400 MG TABLET PO (09:10)
[2024-02-18] MEDS: Pyridoxine HCl (Vitamin B6) 50 MG TABLET 25 MG PO (09:10)
[2024-02-18] MEDS: clonazePAM 1 MG TABLET PO ×2 (09:10→10:25)
[2024-02-18 09:11] VITALS: BP 132/66; PULSE 88
[2024-02-18] MEDS: Metoprolol Succinate ER 25 MG TAB.ER.24H PO (09:11)
[2024-02-18] MEDS: DULAGLUTIDE 1.5 MG/0.5 ML 1.5 EACH SUBCUT (10:26)
[2024-02-18] MEDS: Milk of Magnesia 30 ML ORAL.SUSP PO (13:19)
[2024-02-18] MEDS: polyethylene glycoL 3350 17 GM POWD.PACK PO (13:19)
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
[2024-02-18 21:35] LABS: Glucose, Whole Blood 121 mg/dL (60-115)
[2024-02-18] MEDS: Melatonin 3 MG TABLET 9 MG PO (21:41)
[2024-02-18] MEDS: Atorvastatin Calcium 40 MG TABLET PO (21:42)
[2024-02-18] MEDS: Zolpidem Tartrate 5 MG TABLET PO (21:42)
[2024-02-18] MEDS: Apixaban 2.5 MG TABLET 7.5 MG PO (21:43)
[2024-02-18] MEDS: Sennosides/Docusate Sodium TABLET 1 TAB PO (21:44)
[2024-02-18] MEDS: QUEtiapine Fumarate 400 MG TABLET PO (21:44)
[2024-02-19] MEDS: Omeprazole 20 MG CAPSULE.DR PO (07:09)
[2024-02-19 08:00] VITALS: BP 138/60; PULSE 78; TEMP 36.1; O2SAT 98
[2024-02-19] MEDS: Benztropine Mesylate 0.5 MG TABLET PO ×2 (08:42→21:01)
[2024-02-19] MEDS: Thyroid,Pork 30 MG TABLET 120 MG PO (08:42)
[2024-02-19] MEDS: carBAMazepine 200 MG/10 ML ORAL.SUSP 300 MG PO ×3 (08:42→20:59)
[2024-02-19 08:43] VITALS: BP 129/79
[2024-02-19] MEDS: Apixaban 2.5 MG TABLET 7.5 MG PO ×2 (08:43→21:01)
[2024-02-19] MEDS: Pyridoxine HCl (Vitamin B6) 50 MG TABLET 25 MG PO (08:43)
[2024-02-19] MEDS: Furosemide 20 MG TABLET PO (08:43)
[2024-02-19] MEDS: Cholecalciferol (Vitamin D3) 25 MCG TABLET 50 MCG PO (08:43)
[2024-02-19 08:44] VITALS: BP 129/79; PULSE 83
[2024-02-19] MEDS: Metoprolol Succinate ER 25 MG TAB.ER.24H PO (08:44)
[2024-02-19] MEDS: Cyanocobalamin (Vitamin B-12) 100 MCG TABLET PO (08:44)
[2024-02-19] MEDS: Magnesium Oxide 400 MG TABLET PO (08:45)
[2024-02-19] MEDS: Milk of Magnesia 30 ML ORAL.SUSP PO (09:53)
[2024-02-19] MEDS: polyethylene glycoL 3350 17 GM POWD.PACK PO (09:53)
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
[2024-02-19] MEDS: clonazePAM 1 MG TABLET PO (14:29)
[2024-02-19 20:00] VITALS: BP 143/67; PULSE 84; RESP 16; TEMP 36.5; O2SAT 95
[2024-02-19] MEDS: Divalproex Sodium ER 500 MG TAB.ER.24H PO (21:01)
[2024-02-19] MEDS: QUEtiapine Fumarate 400 MG TABLET PO (21:01)
[2024-02-19] MEDS: Melatonin 3 MG TABLET 9 MG PO (21:01)
[2024-02-19] MEDS: Sennosides/Docusate Sodium TABLET 1 TAB PO (21:01)
[2024-02-19] MEDS: Atorvastatin Calcium 40 MG TABLET PO (21:01)
[2024-02-19] MEDS: Zolpidem Tartrate 5 MG TABLET PO (21:01)
[2024-02-20] MEDS: carBAMazepine 200 MG/10 ML ORAL.SUSP 300 MG PO ×3 (09:06→21:03)
[2024-02-20 09:07] VITALS: BP 133/68; BP 133/78; PULSE 80
[2024-02-20] MEDS: Furosemide 20 MG TABLET PO (09:07)
[2024-02-20] MEDS: Pyridoxine HCl (Vitamin B6) 50 MG TABLET 25 MG PO (09:07)
[2024-02-20] MEDS: Metoprolol Succinate ER 25 MG TAB.ER.24H PO (09:07)
[2024-02-20] MEDS: Apixaban 2.5 MG TABLET 7.5 MG PO ×2 (09:09→21:04)
[2024-02-20] MEDS: Cholecalciferol (Vitamin D3) 25 MCG TABLET 50 MCG PO (09:10)
[2024-02-20] MEDS: Cyanocobalamin (Vitamin B-12) 100 MCG TABLET PO (09:10)
[2024-02-20] MEDS: Magnesium Oxide 400 MG TABLET PO (09:10)
[2024-02-20] MEDS: Benztropine Mesylate 0.5 MG TABLET PO ×2 (09:10→21:04)
[2024-02-20] MEDS: Omeprazole 20 MG CAPSULE.DR PO (09:10)
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
[2024-02-20] MEDS: Zolpidem Tartrate 5 MG TABLET PO (21:04)
[2024-02-20] MEDS: Melatonin 3 MG TABLET 9 MG PO (21:04)
[2024-02-20] MEDS: Sennosides/Docusate Sodium TABLET 1 TAB PO (21:04)
[2024-02-20] MEDS: Ondansetron ODT 4 MG TAB.RAPDIS TRANSLINGU (21:04)
[2024-02-20] MEDS: QUEtiapine Fumarate 400 MG TABLET PO (21:05)
[2024-02-20] MEDS: Atorvastatin Calcium 40 MG TABLET PO (21:05)
[2024-02-20] MEDS: Divalproex Sodium ER 500 MG TAB.ER.24H PO (21:05)
[2024-02-21] MEDS: Thyroid,Pork 30 MG TABLET 120 MG PO (07:40)
[2024-02-21 07:56] LABS: Glucose, Whole Blood 92 mg/dL (60-115)
[2024-02-21] MEDS: Omeprazole 20 MG CAPSULE.DR PO (08:02)
[2024-02-21] MEDS: carBAMazepine 200 MG/10 ML ORAL.SUSP 300 MG PO ×3 (08:13→22:22)
[2024-02-21] MEDS: Benztropine Mesylate 0.5 MG TABLET PO ×2 (08:14→22:24)
[2024-02-21] MEDS: Pyridoxine HCl (Vitamin B6) 50 MG TABLET 25 MG PO (08:14)
[2024-02-21] MEDS: Magnesium Oxide 400 MG TABLET PO (08:14)
[2024-02-21] MEDS: Cholecalciferol (Vitamin D3) 25 MCG TABLET 50 MCG PO (08:14)
[2024-02-21] MEDS: Apixaban 2.5 MG TABLET 7.5 MG PO ×2 (08:14→22:24)
[2024-02-21 08:15] VITALS: BP 97/52; PULSE 88; TEMP 36.4; O2SAT 92
[2024-02-21] MEDS: Metoprolol Succinate ER 25 MG TAB.ER.24H PO (08:15)
[2024-02-21] MEDS: Furosemide 20 MG TABLET PO (08:15)
[2024-02-21] MEDS: Cyanocobalamin (Vitamin B-12) 100 MCG TABLET PO (08:15)
[2024-02-21] MEDS: polyethylene glycoL 3350 17 GM POWD.PACK PO (13:14)
[2024-02-21] MEDS: Milk of Magnesia 30 ML ORAL.SUSP PO (13:14)
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
[2024-02-21 20:00] VITALS: BP 170/77; PULSE 96; RESP 16; TEMP 36.4; O2SAT 98
[2024-02-21] MEDS: Atorvastatin Calcium 40 MG TABLET PO (22:24)
[2024-02-21] MEDS: Melatonin 3 MG TABLET 9 MG PO (22:24)
[2024-02-21] MEDS: QUEtiapine Fumarate 400 MG TABLET PO (22:24)
[2024-02-21] MEDS: Sennosides/Docusate Sodium TABLET 1 TAB PO (22:24)
[2024-02-21] MEDS: Zolpidem Tartrate 5 MG TABLET PO (22:24)
[2024-02-22] MEDS: Thyroid,Pork 30 MG TABLET 120 MG PO (06:44)
[2024-02-22] MEDS: Omeprazole 20 MG CAPSULE.DR PO (06:44)
[2024-02-22 08:07] LABS: Glucose, Whole Blood 106 mg/dL (60-115)
[2024-02-22 09:09] VITALS: BP 134/63; PULSE 83; RESP 20; TEMP 36.3; O2SAT 94
[2024-02-22] MEDS: Cyanocobalamin (Vitamin B-12) 100 MCG TABLET PO (09:10)
[2024-02-22] MEDS: Cholecalciferol (Vitamin D3) 25 MCG TABLET 50 MCG PO (09:10)
[2024-02-22] MEDS: Furosemide 20 MG TABLET PO (09:10)
[2024-02-22] MEDS: Pyridoxine HCl (Vitamin B6) 50 MG TABLET 25 MG PO (09:11)
[2024-02-22] MEDS: Benztropine Mesylate 0.5 MG TABLET PO ×2 (09:12→21:15)
[2024-02-22] MEDS: Magnesium Oxide 400 MG TABLET PO (09:12)
[2024-02-22] MEDS: Metoprolol Succinate ER 25 MG TAB.ER.24H PO (09:12)
[2024-02-22] MEDS: Apixaban 2.5 MG TABLET 7.5 MG PO ×2 (09:13→21:15)
[2024-02-22] MEDS: carBAMazepine 200 MG/10 ML ORAL.SUSP 300 MG PO ×3 (09:14→21:14)
[2024-02-22] MEDS: clonazePAM 1 MG TABLET PO (15:17)
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
[2024-02-22] MEDS: Atorvastatin Calcium 40 MG TABLET PO (21:15)
[2024-02-22] MEDS: QUEtiapine Fumarate 400 MG TABLET PO (21:15)
[2024-02-22] MEDS: Zolpidem Tartrate 5 MG TABLET PO (21:15)
[2024-02-22] MEDS: Melatonin 3 MG TABLET 9 MG PO (21:15)
[2024-02-22] MEDS: Sennosides/Docusate Sodium TABLET 1 TAB PO (21:15)
[2024-02-22] MEDS: Divalproex Sodium ER 250 MG TAB.ER.24H PO (21:15)
[2024-02-23 08:00] VITALS: BP 144/63; PULSE 90; RESP 18; TEMP 36.5; O2SAT 94
[2024-02-23 08:06] LABS: Glucose, Whole Blood 113 mg/dL (60-115)
[2024-02-23] MEDS: Apixaban 2.5 MG TABLET 7.5 MG PO ×2 (08:07→20:18)
[2024-02-23] MEDS: Cholecalciferol (Vitamin D3) 25 MCG TABLET 50 MCG PO (08:07)
[2024-02-23] MEDS: carBAMazepine 200 MG/10 ML ORAL.SUSP 300 MG PO ×3 (08:07→20:19)
[2024-02-23] MEDS: Cyanocobalamin (Vitamin B-12) 100 MCG TABLET PO (08:07)
[2024-02-23] MEDS: Omeprazole 20 MG CAPSULE.DR PO (08:07)
[2024-02-23] MEDS: Metoprolol Succinate ER 25 MG TAB.ER.24H PO (08:08)
[2024-02-23] MEDS: Thyroid,Pork 30 MG TABLET 120 MG PO (08:08)
[2024-02-23] MEDS: Furosemide 20 MG TABLET PO (08:08)
[2024-02-23] MEDS: Magnesium Oxide 400 MG TABLET PO (08:08)
[2024-02-23] MEDS: Benztropine Mesylate 0.5 MG TABLET PO ×2 (08:08→20:18)
[2024-02-23] MEDS: Pyridoxine HCl (Vitamin B6) 50 MG TABLET 25 MG PO (08:08)
[2024-02-23 08:47] LABS: Carbamazepine Tegretol 10.2 mcg/mL (5.0-12.0)
[2024-02-23] MEDS: clonazePAM 1 MG TABLET PO (14:01)
[2024-02-23] MEDS: Milk of Magnesia 30 ML ORAL.SUSP PO (14:01)
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
[2024-02-23 20:00] VITALS: BP 166/73; PULSE 95; TEMP 36.6; O2SAT 97
[2024-02-23] MEDS: QUEtiapine Fumarate 400 MG TABLET PO (20:18)
[2024-02-23] MEDS: Zolpidem Tartrate 5 MG TABLET PO (20:18)
[2024-02-23] MEDS: Atorvastatin Calcium 40 MG TABLET PO (20:18)
[2024-02-23] MEDS: Sennosides/Docusate Sodium TABLET 1 TAB PO (20:19)
[2024-02-24] MEDS: Thyroid,Pork 30 MG TABLET 120 MG PO (08:10)
[2024-02-24] MEDS: Omeprazole 20 MG CAPSULE.DR PO (08:10)
[2024-02-24 08:19] LABS: Glucose, Whole Blood 125 mg/dL (60-115)
[2024-02-24 08:23] VITALS: BP 159/72; PULSE 90; TEMP 36.1; O2SAT 96
[2024-02-24] MEDS: Pyridoxine HCl (Vitamin B6) 50 MG TABLET 25 MG PO (08:23)
[2024-02-24] MEDS: carBAMazepine 200 MG/10 ML ORAL.SUSP 300 MG PO ×3 (08:23→21:07)
[2024-02-24] MEDS: Apixaban 2.5 MG TABLET 7.5 MG PO ×2 (08:23→21:06)
[2024-02-24 08:24] VITALS: BP 159/72; PULSE 90
[2024-02-24] MEDS: Cholecalciferol (Vitamin D3) 25 MCG TABLET 50 MCG PO (08:24)
[2024-02-24] MEDS: Magnesium Oxide 400 MG TABLET PO (08:24)
[2024-02-24] MEDS: Furosemide 20 MG TABLET PO (08:24)
[2024-02-24] MEDS: Benztropine Mesylate 0.5 MG TABLET PO ×2 (08:24→21:06)
[2024-02-24] MEDS: Metoprolol Succinate ER 25 MG TAB.ER.24H PO (08:24)
[2024-02-24] MEDS: Cyanocobalamin (Vitamin B-12) 100 MCG TABLET PO (08:24)
[2024-02-24] MEDS: Divalproex Sodium 250 MG TABLET.DR PO ×2 (15:08→21:06)
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
[2024-02-24 20:00] VITALS: BP 160/74; PULSE 92; RESP 18; TEMP 36.4; O2SAT 95
[2024-02-24] MEDS: Atorvastatin Calcium 40 MG TABLET PO (21:03)
[2024-02-24] MEDS: clonazePAM 1 MG TABLET PO (21:06)
[2024-02-24] MEDS: Sennosides/Docusate Sodium TABLET 1 TAB PO (21:06)
[2024-02-24] MEDS: QUEtiapine Fumarate 400 MG TABLET PO (21:06)
[2024-02-24] MEDS: Melatonin 3 MG TABLET 9 MG PO (21:07)
[2024-02-25] MEDS: Thyroid,Pork 30 MG TABLET 120 MG PO (06:37)
[2024-02-25] MEDS: Omeprazole 20 MG CAPSULE.DR PO (06:37)
[2024-02-25 07:00] VITALS: BMI 35.4
[2024-02-25 08:41] LABS: Glucose, Whole Blood 141 mg/dL (60-115)
[2024-02-25 09:47] VITALS: BP 173/74; PULSE 100; TEMP 35.5; O2SAT 96
[2024-02-25] MEDS: Metoprolol Succinate ER 25 MG TAB.ER.24H PO (10:07)
[2024-02-25] MEDS: Furosemide 20 MG TABLET PO (10:07)
[2024-02-25] MEDS: carBAMazepine 200 MG/10 ML ORAL.SUSP 300 MG PO ×2 (10:07→21:47)
[2024-02-25] MEDS: Cholecalciferol (Vitamin D3) 25 MCG TABLET 50 MCG PO (10:08)
[2024-02-25] MEDS: Apixaban 2.5 MG TABLET 7.5 MG PO ×2 (10:08→21:46)
[2024-02-25] MEDS: Benztropine Mesylate 0.5 MG TABLET PO ×2 (10:09→21:47)
[2024-02-25] MEDS: Pyridoxine HCl (Vitamin B6) 50 MG TABLET 25 MG PO (10:09)
[2024-02-25] MEDS: HaloperidoL 5 MG TABLET PO (10:09)
[2024-02-25] MEDS: Magnesium Oxide 400 MG TABLET PO (10:09)
[2024-02-25] MEDS: Cyanocobalamin (Vitamin B-12) 100 MCG TABLET PO (10:09)
[2024-02-25] MEDS: DULAGLUTIDE 1.5 MG/0.5 ML 1.5 EACH SUBCUT (10:51)
[2024-02-25] MEDS: Divalproex Sodium 250 MG TABLET.DR PO ×2 (12:00→21:46)
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
[2024-02-25 20:00] VITALS: RESP 18
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
[2024-02-25] MEDS: Melatonin 3 MG TABLET 9 MG PO (21:46)
[2024-02-25] MEDS: Atorvastatin Calcium 40 MG TABLET PO (21:46)
[2024-02-25] MEDS: Sennosides/Docusate Sodium TABLET 1 TAB PO (21:47)
[2024-02-25] MEDS: QUEtiapine Fumarate 400 MG TABLET PO (21:47)
[2024-02-26] MEDS: Thyroid,Pork 30 MG TABLET 120 MG PO (06:54)
[2024-02-26] MEDS: Omeprazole 20 MG CAPSULE.DR PO (06:54)
[2024-02-26 08:00] VITALS: BP 123/56; PULSE 81; RESP 18; TEMP 35.9; O2SAT 95
[2024-02-26 08:22] LABS: Glucose, Whole Blood 127 mg/dL (60-115)
[2024-02-26] MEDS: Cholecalciferol (Vitamin D3) 25 MCG TABLET 50 MCG PO (08:58)
[2024-02-26] MEDS: Apixaban 2.5 MG TABLET 7.5 MG PO ×2 (08:58→21:38)
[2024-02-26] MEDS: Magnesium Oxide 400 MG TABLET PO (08:59)
[2024-02-26] MEDS: Pyridoxine HCl (Vitamin B6) 50 MG TABLET 25 MG PO (08:59)
[2024-02-26] MEDS: Cyanocobalamin (Vitamin B-12) 100 MCG TABLET PO (08:59)
[2024-02-26] MEDS: Furosemide 20 MG TABLET PO (08:59)
[2024-02-26] MEDS: Metoprolol Succinate ER 25 MG TAB.ER.24H PO (09:00)
[2024-02-26] MEDS: Benztropine Mesylate 0.5 MG TABLET PO ×2 (09:00→21:39)
[2024-02-26] MEDS: Cariprazine HCl 1.5 MG CAPSULE PO (09:00)
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
[2024-02-26] MEDS: Divalproex Sodium 250 MG TABLET.DR PO (10:29)
[2024-02-26] MEDS: carBAMazepine 200 MG/10 ML ORAL.SUSP 300 MG PO (10:29)
[2024-02-26] MEDS: clonazePAM 1 MG TABLET PO (13:29)
[2024-02-26] MEDS: Milk of Magnesia 30 ML ORAL.SUSP PO (15:41)
[2024-02-26] MEDS: polyethylene glycoL 3350 17 GM POWD.PACK PO (15:42)
[2024-02-26] MEDS: Sennosides/Docusate Sodium TABLET 1 TAB PO (21:38)
[2024-02-26] MEDS: Valproic Acid Liquid 250 MG/5 ML SOLUTION 500 MG PO (21:38)
[2024-02-26] MEDS: Atorvastatin Calcium 40 MG TABLET PO (21:39)
[2024-02-27] MEDS: clonazePAM 1 MG TABLET PO (02:13)
[2024-02-27] MEDS: Omeprazole 20 MG CAPSULE.DR PO (06:24)
[2024-02-27] MEDS: Thyroid,Pork 30 MG TABLET 120 MG PO (06:24)
[2024-02-27 08:01] VITALS: BP 143/79; PULSE 94; TEMP 36.1; O2SAT 95
[2024-02-27 08:17] LABS: Glucose, Whole Blood 110 mg/dL (60-115)
[2024-02-27] MEDS: Apixaban 2.5 MG TABLET 7.5 MG PO ×2 (10:15→21:13)
[2024-02-27] MEDS: Cariprazine HCl 3 MG CAPSULE PO (10:18)
[2024-02-27] MEDS: Benztropine Mesylate 0.5 MG TABLET PO ×2 (10:18→21:13)
[2024-02-27] MEDS: Metoprolol Succinate ER 25 MG TAB.ER.24H PO (10:19)
[2024-02-27] MEDS: Cyanocobalamin (Vitamin B-12) 100 MCG TABLET PO (10:19)
[2024-02-27] MEDS: Cholecalciferol (Vitamin D3) 25 MCG TABLET 50 MCG PO (10:19)
[2024-02-27] MEDS: Pyridoxine HCl (Vitamin B6) 50 MG TABLET 25 MG PO (10:20)
[2024-02-27] MEDS: Magnesium Oxide 400 MG TABLET PO (10:20)
[2024-02-27] MEDS: Furosemide 20 MG TABLET PO (10:20)
[2024-02-27] MEDS: carBAMazepine 200 MG/10 ML ORAL.SUSP PO ×2 (10:40→14:37)
[2024-02-27] MEDS: Valproic Acid Liquid 250 MG/5 ML SOLUTION 500 MG PO ×2 (11:18→21:13)
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
[2024-02-27 19:56] VITALS: BP 151/70; PULSE 94; TEMP 36.8; O2SAT 97
[2024-02-27] MEDS: Melatonin 3 MG TABLET 9 MG PO (21:13)
[2024-02-27] MEDS: Atorvastatin Calcium 40 MG TABLET PO (21:13)
[2024-02-27] MEDS: Sennosides/Docusate Sodium TABLET 1 TAB PO (21:13)
[2024-02-28] MEDS: Thyroid,Pork 30 MG TABLET 120 MG PO (07:03)
[2024-02-28] MEDS: Omeprazole 20 MG CAPSULE.DR PO (07:03)
[2024-02-28 08:00] VITALS: BP 146/68; PULSE 82; RESP 16; TEMP 36.4; O2SAT 95
[2024-02-28 08:15] LABS: Glucose, Whole Blood 102 mg/dL (60-115)
[2024-02-28 09:24] VITALS: BP 146/86; PULSE 82
[2024-02-28] MEDS: Metoprolol Succinate ER 25 MG TAB.ER.24H PO (09:24)
[2024-02-28] MEDS: Apixaban 2.5 MG TABLET 7.5 MG PO ×2 (09:24→21:29)
[2024-02-28 09:25] VITALS: BP 146/86
[2024-02-28] MEDS: Benztropine Mesylate 0.5 MG TABLET PO ×2 (09:25→21:31)
[2024-02-28] MEDS: Pyridoxine HCl (Vitamin B6) 50 MG TABLET 25 MG PO (09:25)
[2024-02-28] MEDS: Cholecalciferol (Vitamin D3) 25 MCG TABLET 50 MCG PO (09:25)
[2024-02-28] MEDS: Cyanocobalamin (Vitamin B-12) 100 MCG TABLET PO (09:25)
[2024-02-28] MEDS: Furosemide 20 MG TABLET PO (09:25)
[2024-02-28] MEDS: QUEtiapine Fumarate 25 MG TABLET PO (09:26)
[2024-02-28] MEDS: carBAMazepine 200 MG/10 ML ORAL.SUSP PO ×3 (09:27→21:26)
[2024-02-28] MEDS: Valproic Acid Liquid 250 MG/5 ML SOLUTION 500 MG PO ×2 (09:33→21:28)
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
[2024-02-28] MEDS: Atorvastatin Calcium 40 MG TABLET PO (21:32)
[2024-02-28] MEDS: QUEtiapine Fumarate 400 MG TABLET PO (21:32)
[2024-02-28] MEDS: Sennosides/Docusate Sodium TABLET 1 TAB PO (21:32)
[2024-02-28] MEDS: Melatonin 3 MG TABLET 9 MG PO (21:33)
[2024-02-29] MEDS: Thyroid,Pork 30 MG TABLET 120 MG PO (06:26)
[2024-02-29] MEDS: Omeprazole 20 MG CAPSULE.DR PO (06:33)
[2024-02-29 07:57] VITALS: BP 138/72; PULSE 78; RESP 18; TEMP 36.9; O2SAT 100
[2024-02-29 08:26] LABS: Glucose, Whole Blood 101 mg/dL (60-115)
[2024-02-29] MEDS: Valproic Acid Liquid 250 MG/5 ML SOLUTION 500 MG PO (08:55)
[2024-02-29] MEDS: Pyridoxine HCl (Vitamin B6) 50 MG TABLET 25 MG PO (08:55)
[2024-02-29] MEDS: Metoprolol Succinate ER 25 MG TAB.ER.24H PO (08:56)
[2024-02-29] MEDS: Cyanocobalamin (Vitamin B-12) 100 MCG TABLET PO (08:56)
[2024-02-29] MEDS: Furosemide 20 MG TABLET PO (08:56)
[2024-02-29] MEDS: Magnesium Oxide 400 MG TABLET PO (08:56)
[2024-02-29] MEDS: Benztropine Mesylate 0.5 MG TABLET PO ×2 (08:56→21:40)
[2024-02-29] MEDS: Cholecalciferol (Vitamin D3) 25 MCG TABLET 50 MCG PO (08:56)
[2024-02-29] MEDS: polyethylene glycoL 3350 17 GM POWD.PACK PO (09:58)
[2024-02-29] MEDS: Milk of Magnesia 30 ML ORAL.SUSP PO (09:58)
[2024-02-29] MEDS: Haloperidol Lactate Oral Conc 10 MG/5 ML ORAL.CONC PO (11:12)
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
[2024-02-29 20:56] LABS: Glucose, Whole Blood 119 mg/dL (60-115)
[2024-02-29] MEDS: QUEtiapine Fumarate 400 MG TABLET PO (21:41)
[2024-02-29] MEDS: Apixaban 5 MG TABLET PO (21:42)
[2024-02-29] MEDS: Sennosides/Docusate Sodium TABLET 1 TAB PO (21:42)
[2024-02-29] MEDS: Atorvastatin Calcium 40 MG TABLET PO (21:44)
[2024-02-29] MEDS: Valproic Acid Liquid 250 MG/5 ML SOLUTION 750 MG PO (21:44)
[2024-02-29] MEDS: Zolpidem Tartrate 5 MG TABLET PO (21:52)
[2024-02-29] MEDS: Melatonin 3 MG TABLET 9 MG PO (21:52)
[2024-03-01] MEDS: Thyroid,Pork 30 MG TABLET 120 MG PO (07:21)
[2024-03-01] MEDS: Omeprazole 20 MG CAPSULE.DR PO (07:22)
[2024-03-01 08:02] LABS: Glucose, Whole Blood 140 mg/dL (60-115)
[2024-03-01 08:15] VITALS: BP 141/63; PULSE 89; RESP 18; TEMP 36; O2SAT 96
[2024-03-01] MEDS: Valproic Acid Liquid 250 MG/5 ML SOLUTION 750 MG PO ×2 (08:15→21:28)
[2024-03-01 08:16] VITALS: BP 141/63; PULSE 89
[2024-03-01] MEDS: Apixaban 5 MG TABLET PO ×2 (08:16→21:28)
[2024-03-01] MEDS: Pyridoxine HCl (Vitamin B6) 50 MG TABLET 25 MG PO (08:16)
[2024-03-01] MEDS: Metoprolol Succinate ER 25 MG TAB.ER.24H PO (08:16)
[2024-03-01] MEDS: Furosemide 20 MG TABLET PO (08:16)
[2024-03-01] MEDS: Cyanocobalamin (Vitamin B-12) 100 MCG TABLET PO (08:17)
[2024-03-01] MEDS: Cholecalciferol (Vitamin D3) 25 MCG TABLET 50 MCG PO (08:17)
[2024-03-01] MEDS: Benztropine Mesylate 0.5 MG TABLET PO ×2 (08:18→21:28)
[2024-03-01] MEDS: Magnesium Oxide 400 MG TABLET PO (08:18)
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
[2024-03-01] MEDS: Haloperidol Lactate Oral Conc 10 MG/5 ML ORAL.CONC PO (15:19)
[2024-03-01 20:00] VITALS: BP 159/75; PULSE 94; RESP 16; TEMP 36.5; O2SAT 97
[2024-03-01] MEDS: Melatonin 3 MG TABLET 9 MG PO (21:28)
[2024-03-01] MEDS: Sennosides/Docusate Sodium TABLET 1 TAB PO (21:28)
[2024-03-01] MEDS: Zolpidem Tartrate 5 MG TABLET PO (21:28)
[2024-03-01] MEDS: QUEtiapine Fumarate 400 MG TABLET PO (21:28)
[2024-03-01] MEDS: Atorvastatin Calcium 40 MG TABLET PO (21:28)
[2024-03-01 21:30] LABS: Glucose, Whole Blood 131 mg/dL (60-115)
[2024-03-02 08:14] LABS: Glucose, Whole Blood 130 mg/dL (60-115)
[2024-03-02] MEDS: Thyroid,Pork 30 MG TABLET 120 MG PO (08:18)
[2024-03-02] MEDS: Magnesium Oxide 400 MG TABLET PO (08:19)
[2024-03-02] MEDS: Cyanocobalamin (Vitamin B-12) 100 MCG TABLET PO (08:19)
[2024-03-02] MEDS: Pyridoxine HCl (Vitamin B6) 50 MG TABLET 25 MG PO (08:19)
[2024-03-02] MEDS: Furosemide 20 MG TABLET PO (08:20)
[2024-03-02] MEDS: Haloperidol Lactate Oral Conc 10 MG/5 ML ORAL.CONC PO ×2 (08:21→21:39)
[2024-03-02] MEDS: Valproic Acid Liquid 250 MG/5 ML SOLUTION 750 MG PO ×2 (08:24→21:38)
[2024-03-02] MEDS: Metoprolol Succinate ER 25 MG TAB.ER.24H PO (08:30)
[2024-03-02] MEDS: Cholecalciferol (Vitamin D3) 25 MCG TABLET 50 MCG PO (08:30)
[2024-03-02] MEDS: Apixaban 5 MG TABLET PO ×2 (08:30→21:38)
[2024-03-02] MEDS: Benztropine Mesylate 0.5 MG TABLET PO ×2 (08:30→21:38)
[2024-03-02 08:31] VITALS: BP 149/67; PULSE 95; RESP 16; TEMP 36.9; O2SAT 95
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
[2024-03-02 19:37] VITALS: BP 126/60; PULSE 92; RESP 16; TEMP 37; O2SAT 96
[2024-03-02 20:09] LABS: Glucose, Whole Blood 120 mg/dL (60-115)
[2024-03-02] MEDS: Zolpidem Tartrate 5 MG TABLET PO (21:38)
[2024-03-02] MEDS: Sennosides/Docusate Sodium TABLET 1 TAB PO (21:38)
[2024-03-02] MEDS: Atorvastatin Calcium 40 MG TABLET PO (21:38)
[2024-03-02] MEDS: Melatonin 3 MG TABLET 9 MG PO (21:38)
[2024-03-03] MEDS: Omeprazole 20 MG CAPSULE.DR PO (06:49)
[2024-03-03] MEDS: Thyroid,Pork 30 MG TABLET 120 MG PO (06:49)
[2024-03-03 07:00] VITALS: BMI 34.5
[2024-03-03 07:58] VITALS: BP 132/60; PULSE 94; RESP 18; TEMP 36.3; O2SAT 95
[2024-03-03 08:01] LABS: Glucose, Whole Blood 145 mg/dL (60-115)
[2024-03-03] MEDS: Valproic Acid Liquid 250 MG/5 ML SOLUTION 750 MG PO ×2 (08:11→22:43)
[2024-03-03] MEDS: Magnesium Oxide 400 MG TABLET PO (08:11)
[2024-03-03] MEDS: Cyanocobalamin (Vitamin B-12) 100 MCG TABLET PO (08:11)
[2024-03-03] MEDS: Metoprolol Succinate ER 25 MG TAB.ER.24H PO (08:11)
[2024-03-03] MEDS: Furosemide 20 MG TABLET PO (08:11)
[2024-03-03] MEDS: Apixaban 5 MG TABLET PO ×2 (08:11→22:39)
[2024-03-03] MEDS: Cholecalciferol (Vitamin D3) 25 MCG TABLET 50 MCG PO (08:11)
[2024-03-03] MEDS: Pyridoxine HCl (Vitamin B6) 50 MG TABLET 25 MG PO (08:12)
[2024-03-03] MEDS: Benztropine Mesylate 0.5 MG TABLET PO ×2 (08:12→22:41)
[2024-03-03] MEDS: Haloperidol Lactate Oral Conc 10 MG/5 ML ORAL.CONC PO ×2 (08:16→22:34)
[2024-03-03] MEDS: DULAGLUTIDE 1.5 MG/0.5 ML 1.5 EACH SUBCUT (09:04)
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
[2024-03-03] MEDS: clonazePAM 1 MG TABLET PO (15:29)
[2024-03-03] MEDS: Zolpidem Tartrate 5 MG TABLET PO (22:34)
[2024-03-03] MEDS: Atorvastatin Calcium 40 MG TABLET PO (22:37)
[2024-03-03] MEDS: Melatonin 3 MG TABLET 9 MG PO (22:38)
[2024-03-03] MEDS: QUEtiapine Fumarate 200 MG TABLET PO (22:41)
[2024-03-04 08:29] LABS: Glucose, Whole Blood 136 mg/dL (60-115)
[2024-03-04 08:30] VITALS: BP 126/82; PULSE 82; RESP 16; TEMP 37.2; O2SAT 98
[2024-03-04] MEDS: Cholecalciferol (Vitamin D3) 25 MCG TABLET 50 MCG PO (09:54)
[2024-03-04] MEDS: Magnesium Oxide 400 MG TABLET PO (09:54)
[2024-03-04] MEDS: Thyroid,Pork 30 MG TABLET 120 MG PO (09:54)
[2024-03-04] MEDS: Benztropine Mesylate 0.5 MG TABLET PO ×2 (09:54→22:22)
[2024-03-04] MEDS: Omeprazole 20 MG CAPSULE.DR PO (09:54)
[2024-03-04] MEDS: Furosemide 20 MG TABLET PO (09:54)
[2024-03-04] MEDS: Cyanocobalamin (Vitamin B-12) 100 MCG TABLET PO (09:54)
[2024-03-04] MEDS: Pyridoxine HCl (Vitamin B6) 50 MG TABLET 25 MG PO (09:55)
[2024-03-04] MEDS: Valproic Acid Liquid 250 MG/5 ML SOLUTION 750 MG PO (09:55)
[2024-03-04] MEDS: Metoprolol Succinate ER 25 MG TAB.ER.24H PO (09:55)
[2024-03-04] MEDS: Apixaban 5 MG TABLET PO ×2 (09:55→22:22)
--- NOTE | 2024-03-04 10:03 | PC.NURSE ---
pt asked to wait until speaking with provider to take her scheduled Haldol as she prefers the pill to the liquid poiso
[2024-03-04] MEDS: Milk of Magnesia 30 ML ORAL.SUSP PO (11:17)
[2024-03-04] MEDS: HaloperidoL 5 MG TABLET 10 MG PO ×2 (11:17→22:22)
[2024-03-04] MEDS: polyethylene glycoL 3350 17 GM POWD.PACK PO (11:18)
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
[2024-03-04 21:45] LABS: Glucose, Whole Blood 132 mg/dL (60-115)
[2024-03-04] MEDS: Atorvastatin Calcium 40 MG TABLET PO (22:22)
[2024-03-04] MEDS: Valproic Acid Liquid 250 MG/5 ML SOLUTION 1000 MG PO (22:23)
[2024-03-04] MEDS: Sennosides/Docusate Sodium TABLET 1 TAB PO (22:23)
[2024-03-04] MEDS: QUEtiapine Fumarate 200 MG TABLET PO (22:23)
[2024-03-04] MEDS: Melatonin 3 MG TABLET 9 MG PO (22:23)
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
[2024-03-05] MEDS: Thyroid,Pork 30 MG TABLET 120 MG PO (07:09)
[2024-03-05] MEDS: Omeprazole 20 MG CAPSULE.DR PO (07:09)
[2024-03-05 08:09] VITALS: BP 101/51; PULSE 90; RESP 18; TEMP 36.7; O2SAT 95
[2024-03-05 08:28] LABS: Glucose, Whole Blood 123 mg/dL (60-115)
[2024-03-05] MEDS: HaloperidoL 5 MG TABLET 10 MG PO ×2 (08:32→22:39)
[2024-03-05] MEDS: Metoprolol Succinate ER 25 MG TAB.ER.24H PO (08:33)
[2024-03-05] MEDS: Cyanocobalamin (Vitamin B-12) 100 MCG TABLET PO (08:33)
[2024-03-05] MEDS: Magnesium Oxide 400 MG TABLET PO (08:33)
[2024-03-05] MEDS: Benztropine Mesylate 0.5 MG TABLET PO ×2 (08:33→22:37)
[2024-03-05] MEDS: Furosemide 20 MG TABLET PO (08:33)
[2024-03-05] MEDS: Cholecalciferol (Vitamin D3) 25 MCG TABLET 50 MCG PO (08:33)
[2024-03-05] MEDS: Apixaban 5 MG TABLET PO ×2 (08:34→22:36)
[2024-03-05] MEDS: Pyridoxine HCl (Vitamin B6) 50 MG TABLET 25 MG PO (08:34)
[2024-03-05] MEDS: Valproic Acid Liquid 250 MG/5 ML SOLUTION 1000 MG PO (08:35)
[2024-03-05] MEDS: Atorvastatin Calcium 40 MG TABLET PO (22:36)
[2024-03-05] MEDS: Divalproex Sodium ER 500 MG TAB.ER.24H 1000 MG PO (22:38)
[2024-03-05] MEDS: Melatonin 3 MG TABLET 9 MG PO (22:39)
[2024-03-05] MEDS: Sennosides/Docusate Sodium TABLET 1 TAB PO (22:40)
[2024-03-05] MEDS: clonazePAM 1 MG TABLET PO (22:41)
[2024-03-05] MEDS: Zolpidem Tartrate 5 MG TABLET PO (22:42)
[2024-03-06] MEDS: Thyroid,Pork 30 MG TABLET 120 MG PO (06:23)
[2024-03-06] MEDS: Omeprazole 20 MG CAPSULE.DR PO (06:27)
[2024-03-06 07:48] VITALS: BP 89/55; PULSE 80; RESP 18; TEMP 36.4; O2SAT 97
[2024-03-06] MEDS: Divalproex Sodium ER 500 MG TAB.ER.24H 1000 MG PO (08:07)
[2024-03-06] MEDS: Cyanocobalamin (Vitamin B-12) 100 MCG TABLET PO (08:08)
[2024-03-06] MEDS: Cholecalciferol (Vitamin D3) 25 MCG TABLET 50 MCG PO (08:08)
[2024-03-06] MEDS: HaloperidoL 5 MG TABLET 10 MG PO ×2 (08:08→20:44)
[2024-03-06 08:09] VITALS: BP 114/55
[2024-03-06] MEDS: Furosemide 20 MG TABLET PO (08:09)
[2024-03-06] MEDS: Benztropine Mesylate 0.5 MG TABLET PO ×2 (08:09→20:33)
[2024-03-06] MEDS: Magnesium Oxide 400 MG TABLET PO (08:09)
[2024-03-06 08:10] VITALS: BP 114/55; PULSE 80
[2024-03-06 08:10] LABS: Glucose, Whole Blood 109 mg/dL (60-115)
[2024-03-06] MEDS: Apixaban 5 MG TABLET PO ×2 (08:10→20:33)
[2024-03-06] MEDS: Metoprolol Succinate ER 25 MG TAB.ER.24H PO (08:10)
[2024-03-06] MEDS: Pyridoxine HCl (Vitamin B6) 50 MG TABLET 25 MG PO (08:10)
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
[2024-03-06 19:51] VITALS: RESP 15
[2024-03-06] MEDS: Divalproex Sodium ER 250 MG TAB.ER.24H 1000 MG PO (20:32)
[2024-03-06] MEDS: Melatonin 3 MG TABLET 9 MG PO (20:32)
[2024-03-06] MEDS: Zolpidem Tartrate 5 MG TABLET PO (20:33)
[2024-03-06] MEDS: Atorvastatin Calcium 40 MG TABLET PO (20:33)
[2024-03-06] MEDS: Sennosides/Docusate Sodium TABLET 1 TAB PO (20:33)
[2024-03-07] MEDS: clonazePAM 1 MG TABLET PO ×2 (03:44→15:05)
[2024-03-07] MEDS: Omeprazole 20 MG CAPSULE.DR PO (07:05)
[2024-03-07] MEDS: Thyroid,Pork 30 MG TABLET 120 MG PO (07:05)
[2024-03-07 08:00] VITALS: BP 108/62; PULSE 84; RESP 16; TEMP 36.4; O2SAT 94
[2024-03-07 08:10] LABS: Glucose, Whole Blood 92 mg/dL (60-115)
[2024-03-07] MEDS: Pyridoxine HCl (Vitamin B6) 50 MG TABLET 25 MG PO (08:54)
[2024-03-07] MEDS: Magnesium Oxide 400 MG TABLET PO (08:55)
[2024-03-07] MEDS: Divalproex Sodium ER 250 MG TAB.ER.24H 1000 MG PO ×2 (08:55→20:48)
[2024-03-07] MEDS: Furosemide 20 MG TABLET PO (08:55)
[2024-03-07] MEDS: Cyanocobalamin (Vitamin B-12) 100 MCG TABLET PO (08:55)
[2024-03-07] MEDS: Benztropine Mesylate 0.5 MG TABLET PO (08:55)
[2024-03-07] MEDS: Apixaban 5 MG TABLET PO ×2 (08:55→20:48)
[2024-03-07] MEDS: Cholecalciferol (Vitamin D3) 25 MCG TABLET 50 MCG PO (08:55)
[2024-03-07] MEDS: HaloperidoL 5 MG TABLET 10 MG PO ×2 (08:56→20:48)
[2024-03-07] MEDS: Metoprolol Succinate ER 25 MG TAB.ER.24H PO (08:56)
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
--- NOTE | 2024-03-07 14:48 | PC.NURSE ---
Sybil gave me verbal permission to call her mother back and update her on how she is doing.
--- NOTE | 2024-03-07 14:58 | PC.NURSE ---
Spoke with patients mother, Estefania, who was concerned about Theresas length of stay and how she felt she wasn't getting better. Mom is aware she started taking her Depakote and is very pleased to hear that. She had no further questions at this time.
[2024-03-07] MEDS: [UNRECOGNIZED DRUG - OTHER] 1 EACH TOPICAL (18:12)
[2024-03-07 19:52] VITALS: BP 116/55; PULSE 86; RESP 18; TEMP 36.8; O2SAT 95
[2024-03-07] MEDS: Benztropine Mesylate 1 MG TABLET PO (20:48)
[2024-03-07] MEDS: Atorvastatin Calcium 40 MG TABLET PO (20:48)
[2024-03-07] MEDS: Sennosides/Docusate Sodium TABLET 1 TAB PO (20:49)
[2024-03-07] MEDS: Melatonin 3 MG TABLET 9 MG PO (20:49)
[2024-03-08] MEDS: Thyroid,Pork 30 MG TABLET 120 MG PO (06:33)
[2024-03-08] MEDS: Omeprazole 20 MG CAPSULE.DR PO (06:34)
[2024-03-08 08:00] VITALS: BP 114/58; PULSE 88; RESP 18; O2SAT 94
[2024-03-08 08:29] LABS: Glucose, Whole Blood 144 mg/dL (60-115)
[2024-03-08] MEDS: Pyridoxine HCl (Vitamin B6) 50 MG TABLET 25 MG PO (08:38)
[2024-03-08] MEDS: Milk of Magnesia 30 ML ORAL.SUSP PO (08:38)
[2024-03-08] MEDS: polyethylene glycoL 3350 17 GM POWD.PACK PO (08:38)
[2024-03-08 08:39] VITALS: BP 114/58; PULSE 94
[2024-03-08] MEDS: Metoprolol Succinate ER 25 MG TAB.ER.24H PO (08:39)
[2024-03-08] MEDS: Apixaban 5 MG TABLET PO ×2 (08:39→21:39)
[2024-03-08] MEDS: Furosemide 20 MG TABLET PO (08:39)
[2024-03-08] MEDS: Cholecalciferol (Vitamin D3) 25 MCG TABLET 50 MCG PO (08:39)
[2024-03-08] MEDS: HaloperidoL 5 MG TABLET 10 MG PO ×2 (08:39→21:40)
[2024-03-08] MEDS: Benztropine Mesylate 1 MG TABLET PO ×2 (08:39→21:40)
[2024-03-08] MEDS: Divalproex Sodium ER 250 MG TAB.ER.24H 1000 MG PO ×2 (08:39→21:39)
[2024-03-08] MEDS: Cyanocobalamin (Vitamin B-12) 100 MCG TABLET PO (08:39)
[2024-03-08] MEDS: Magnesium Oxide 400 MG TABLET PO (08:39)
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
[2024-03-08] MEDS: [UNRECOGNIZED DRUG - OTHER] 1 EACH TOPICAL (09:11)
[2024-03-08] MEDS: clonazePAM 1 MG TABLET PO (14:26)
[2024-03-08 19:26] LABS: Glucose, Whole Blood 142 mg/dL (60-115)
[2024-03-08 20:00] VITALS: BP 122/59; PULSE 78; RESP 18; TEMP 36.6; O2SAT 95
[2024-03-08] MEDS: Atorvastatin Calcium 40 MG TABLET PO (21:39)
[2024-03-08] MEDS: Sennosides/Docusate Sodium TABLET 1 TAB PO (21:39)
[2024-03-08] MEDS: Zolpidem Tartrate 5 MG TABLET 10 MG PO (21:40)
[2024-03-08] MEDS: Melatonin 3 MG TABLET 9 MG PO (21:40)
[2024-03-09] MEDS: Omeprazole 20 MG CAPSULE.DR PO (06:15)
[2024-03-09] MEDS: Thyroid,Pork 30 MG TABLET 120 MG PO (06:15)
[2024-03-09 07:25] LABS: Glucose, Whole Blood 123 mg/dL (60-115)
[2024-03-09 08:00] VITALS: BP 110/61; PULSE 80; RESP 18; TEMP 36.8; O2SAT 98
[2024-03-09] MEDS: Cyanocobalamin (Vitamin B-12) 100 MCG TABLET PO (08:52)
[2024-03-09] MEDS: Divalproex Sodium ER 250 MG TAB.ER.24H 1000 MG PO ×2 (08:52→21:20)
[2024-03-09] MEDS: Pyridoxine HCl (Vitamin B6) 50 MG TABLET 25 MG PO (08:52)
[2024-03-09] MEDS: Magnesium Oxide 400 MG TABLET PO (08:53)
[2024-03-09] MEDS: Cholecalciferol (Vitamin D3) 25 MCG TABLET 50 MCG PO (08:53)
[2024-03-09] MEDS: Metoprolol Succinate ER 25 MG TAB.ER.24H PO (08:53)
[2024-03-09] MEDS: Benztropine Mesylate 1 MG TABLET PO ×2 (08:53→21:19)
[2024-03-09] MEDS: HaloperidoL 5 MG TABLET 10 MG PO ×2 (08:53→21:19)
[2024-03-09] MEDS: Furosemide 20 MG TABLET PO (08:53)
[2024-03-09] MEDS: Apixaban 5 MG TABLET PO ×2 (08:53→21:19)
[2024-03-09] MEDS: polyethylene glycoL 3350 17 GM POWD.PACK PO (09:27)
[2024-03-09] MEDS: Milk of Magnesia 30 ML ORAL.SUSP PO (09:27)
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
[2024-03-09] MEDS: clonazePAM 1 MG TABLET PO ×2 (14:27→21:19)
[2024-03-09] MEDS: [UNRECOGNIZED DRUG - OTHER] 1 EACH TOPICAL (18:20)
[2024-03-09] MEDS: Atorvastatin Calcium 40 MG TABLET PO (21:16)
[2024-03-09] MEDS: Sennosides/Docusate Sodium TABLET 1 TAB PO (21:16)
[2024-03-09] MEDS: Zolpidem Tartrate 5 MG TABLET 10 MG PO (21:19)
[2024-03-09] MEDS: Melatonin 3 MG TABLET 9 MG PO (21:19)
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
[2024-03-10] MEDS: Thyroid,Pork 30 MG TABLET 120 MG PO (06:25)
[2024-03-10] MEDS: Omeprazole 20 MG CAPSULE.DR PO (06:25)
[2024-03-10 07:00] VITALS: BMI 35.0
[2024-03-10 07:58] LABS: Valproate 70.8 mcg/mL (50.0-100.0)
[2024-03-10 08:00] VITALS: BP 132/62; PULSE 92; RESP 18; TEMP 36.3; O2SAT 95
[2024-03-10 08:05] LABS: Glucose, Whole Blood 126 mg/dL (60-115)
[2024-03-10] MEDS: Pyridoxine HCl (Vitamin B6) 50 MG TABLET 25 MG PO (08:51)
[2024-03-10] MEDS: Magnesium Oxide 400 MG TABLET PO (08:51)
[2024-03-10] MEDS: Cholecalciferol (Vitamin D3) 25 MCG TABLET 50 MCG PO (08:52)
[2024-03-10] MEDS: Benztropine Mesylate 1 MG TABLET PO ×2 (08:52→21:36)
[2024-03-10] MEDS: Divalproex Sodium ER 250 MG TAB.ER.24H 1000 MG PO ×2 (08:52→21:37)
[2024-03-10] MEDS: HaloperidoL 5 MG TABLET 10 MG PO ×2 (08:53→21:37)
[2024-03-10] MEDS: Furosemide 20 MG TABLET PO (08:54)
[2024-03-10] MEDS: Apixaban 5 MG TABLET PO ×2 (08:54→21:37)
[2024-03-10] MEDS: Metoprolol Succinate ER 25 MG TAB.ER.24H PO (08:54)
[2024-03-10] MEDS: Cyanocobalamin (Vitamin B-12) 100 MCG TABLET PO (08:55)
[2024-03-10] MEDS: [UNRECOGNIZED DRUG - OTHER] 1 EACH TOPICAL (18:48)
[2024-03-10 19:23] LABS: Glucose, Whole Blood 152 mg/dL (60-115)
[2024-03-10 20:00] VITALS: BP 139/64; PULSE 85; RESP 16; TEMP 36.6; O2SAT 97
[2024-03-10] MEDS: Atorvastatin Calcium 40 MG TABLET PO (21:36)
[2024-03-10] MEDS: Melatonin 3 MG TABLET 9 MG PO (21:36)
[2024-03-10] MEDS: clonazePAM 1 MG TABLET PO (21:37)
[2024-03-10] MEDS: Zolpidem Tartrate 5 MG TABLET 10 MG PO (21:37)
[2024-03-10] MEDS: Sennosides/Docusate Sodium TABLET 1 TAB PO (21:37)
[2024-03-11] MEDS: Thyroid,Pork 30 MG TABLET 120 MG PO (06:09)
[2024-03-11] MEDS: Omeprazole 20 MG CAPSULE.DR PO (06:09)
[2024-03-11 08:22] LABS: Glucose, Whole Blood 120 mg/dL (60-115)
[2024-03-11 09:21] VITALS: BP 145/63; PULSE 91; RESP 16; TEMP 36.7; O2SAT 95
[2024-03-11] MEDS: HaloperidoL 5 MG TABLET 10 MG PO ×2 (09:24→20:42)
[2024-03-11] MEDS: Magnesium Oxide 400 MG TABLET PO (09:24)
[2024-03-11] MEDS: Cholecalciferol (Vitamin D3) 25 MCG TABLET 50 MCG PO (09:24)
[2024-03-11] MEDS: Metoprolol Succinate ER 25 MG TAB.ER.24H PO (09:24)
[2024-03-11] MEDS: Benztropine Mesylate 1 MG TABLET PO ×2 (09:24→20:42)
[2024-03-11] MEDS: Divalproex Sodium ER 250 MG TAB.ER.24H 1000 MG PO ×2 (09:24→20:41)
[2024-03-11] MEDS: Pyridoxine HCl (Vitamin B6) 50 MG TABLET 25 MG PO (09:24)
[2024-03-11] MEDS: Cyanocobalamin (Vitamin B-12) 100 MCG TABLET PO (09:24)
[2024-03-11] MEDS: Apixaban 5 MG TABLET PO ×2 (09:24→20:42)
[2024-03-11] MEDS: Furosemide 20 MG TABLET PO (09:24)
[2024-03-11] MEDS: Milk of Magnesia 30 ML ORAL.SUSP PO (09:47)
[2024-03-11] MEDS: polyethylene glycoL 3350 17 GM POWD.PACK PO (09:47)
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
[2024-03-11] MEDS: DULAGLUTIDE 1.5 MG/0.5 ML 1.5 EACH SUBCUT (14:22)
[2024-03-11 20:00] VITALS: BP 106/51; PULSE 86; RESP 15; TEMP 36.6; O2SAT 95
[2024-03-11] MEDS: Zolpidem Tartrate 5 MG TABLET 10 MG PO (20:41)
[2024-03-11] MEDS: Melatonin 3 MG TABLET 9 MG PO (20:42)
[2024-03-11] MEDS: clonazePAM 1 MG TABLET PO (20:42)
[2024-03-11] MEDS: Atorvastatin Calcium 40 MG TABLET PO (20:42)
[2024-03-11] MEDS: Sennosides/Docusate Sodium TABLET 1 TAB PO (20:43)
[2024-03-12] MEDS: Omeprazole 20 MG CAPSULE.DR PO (06:52)
[2024-03-12] MEDS: Thyroid,Pork 30 MG TABLET 120 MG PO (06:52)
[2024-03-12 07:56] LABS: Glucose, Whole Blood 131 mg/dL (60-115)
[2024-03-12 08:10] VITALS: BP 107/53; PULSE 81; RESP 16; TEMP 36.9; O2SAT 96
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
[2024-03-12] MEDS: Pyridoxine HCl (Vitamin B6) 50 MG TABLET 25 MG PO (09:25)
[2024-03-12] MEDS: Furosemide 20 MG TABLET PO (09:26)
[2024-03-12] MEDS: Divalproex Sodium ER 250 MG TAB.ER.24H 1000 MG PO ×2 (09:26→21:03)
[2024-03-12] MEDS: HaloperidoL 5 MG TABLET 10 MG PO ×2 (09:26→21:03)
[2024-03-12 09:27] VITALS: BP 108/62; PULSE 72
[2024-03-12] MEDS: Magnesium Oxide 400 MG TABLET PO (09:27)
[2024-03-12] MEDS: Cholecalciferol (Vitamin D3) 25 MCG TABLET 50 MCG PO (09:27)
[2024-03-12] MEDS: Apixaban 5 MG TABLET PO ×2 (09:27→21:04)
[2024-03-12] MEDS: Cyanocobalamin (Vitamin B-12) 100 MCG TABLET PO (09:27)
[2024-03-12] MEDS: Metoprolol Succinate ER 25 MG TAB.ER.24H PO (09:27)
[2024-03-12] MEDS: Benztropine Mesylate 1 MG TABLET PO ×2 (09:27→21:03)
[2024-03-12 20:00] VITALS: BP 116/59; PULSE 85; RESP 15; TEMP 36.9; O2SAT 96
[2024-03-12] MEDS: Melatonin 3 MG TABLET 9 MG PO (21:02)
[2024-03-12] MEDS: Zolpidem Tartrate 5 MG TABLET 10 MG PO (21:03)
[2024-03-12] MEDS: Atorvastatin Calcium 40 MG TABLET PO (21:04)
[2024-03-12] MEDS: Sennosides/Docusate Sodium TABLET 1 TAB PO (21:04)
[2024-03-12] MEDS: clonazePAM 1 MG TABLET PO (21:04)
[2024-03-13] MEDS: Thyroid,Pork 30 MG TABLET 120 MG PO (06:55)
[2024-03-13] MEDS: Omeprazole 20 MG CAPSULE.DR PO (06:55)
[2024-03-13 08:08] VITALS: BP 128/65; PULSE 85; RESP 16; TEMP 36.9; O2SAT 94
[2024-03-13 08:11] LABS: Glucose, Whole Blood 112 mg/dL (60-115)
[2024-03-13] MEDS: Furosemide 20 MG TABLET PO (08:37)
[2024-03-13] MEDS: HaloperidoL 5 MG TABLET 10 MG PO ×2 (08:37→20:41)
[2024-03-13] MEDS: Divalproex Sodium ER 250 MG TAB.ER.24H 1000 MG PO ×2 (08:37→20:41)
[2024-03-13] MEDS: Cholecalciferol (Vitamin D3) 25 MCG TABLET 50 MCG PO (08:37)
[2024-03-13] MEDS: Pyridoxine HCl (Vitamin B6) 50 MG TABLET 25 MG PO (08:38)
[2024-03-13] MEDS: Magnesium Oxide 400 MG TABLET PO (08:38)
[2024-03-13] MEDS: Apixaban 5 MG TABLET PO ×2 (08:38→20:42)
[2024-03-13] MEDS: Metoprolol Succinate ER 25 MG TAB.ER.24H PO (08:39)
[2024-03-13] MEDS: Benztropine Mesylate 1 MG TABLET PO ×2 (08:39→20:42)
[2024-03-13] MEDS: Cyanocobalamin (Vitamin B-12) 100 MCG TABLET PO (08:39)
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
[2024-03-13] MEDS: Magnesium Hydrox/Alum Hydrox 30 ML ORAL.SUSP PO (10:07)
[2024-03-13] MEDS: Milk of Magnesia 30 ML ORAL.SUSP PO (10:07)
[2024-03-13] MEDS: polyethylene glycoL 3350 17 GM POWD.PACK PO (10:17)
[2024-03-13 19:54] VITALS: BP 113/54; PULSE 83; RESP 15; TEMP 36.4; O2SAT 94
[2024-03-13] MEDS: clonazePAM 1 MG TABLET PO (20:42)
[2024-03-13] MEDS: Sennosides/Docusate Sodium TABLET 1 TAB PO (20:42)
[2024-03-13] MEDS: Atorvastatin Calcium 40 MG TABLET PO (20:42)
[2024-03-13] MEDS: Melatonin 3 MG TABLET 9 MG PO (20:42)
[2024-03-13] MEDS: Zolpidem Tartrate 5 MG TABLET 10 MG PO (20:42)
[2024-03-14] MEDS: Thyroid,Pork 30 MG TABLET 120 MG PO (07:03)
[2024-03-14] MEDS: Omeprazole 20 MG CAPSULE.DR PO (07:03)
[2024-03-14 08:28] LABS: Glucose, Whole Blood 140 mg/dL (60-115)
[2024-03-14] MEDS: Divalproex Sodium ER 250 MG TAB.ER.24H 1000 MG PO ×2 (08:50→21:15)
[2024-03-14] MEDS: Cholecalciferol (Vitamin D3) 25 MCG TABLET 50 MCG PO (08:53)
[2024-03-14 08:54] VITALS: BP 103/56; PULSE 86; RESP 18; TEMP 36.4; O2SAT 95
[2024-03-14] MEDS: Furosemide 20 MG TABLET PO (08:54)
[2024-03-14] MEDS: Pyridoxine HCl (Vitamin B6) 50 MG TABLET 25 MG PO (08:54)
[2024-03-14] MEDS: HaloperidoL 5 MG TABLET 10 MG PO ×2 (08:54→21:18)
[2024-03-14] MEDS: Magnesium Oxide 400 MG TABLET PO (08:54)
[2024-03-14 08:55] VITALS: BP 103/56; PULSE 86
[2024-03-14] MEDS: Metoprolol Succinate ER 25 MG TAB.ER.24H PO (08:55)
[2024-03-14] MEDS: Cyanocobalamin (Vitamin B-12) 100 MCG TABLET PO (08:57)
[2024-03-14] MEDS: Apixaban 5 MG TABLET PO ×2 (08:57→21:16)
[2024-03-14] MEDS: Benztropine Mesylate 1 MG TABLET PO ×2 (08:57→21:16)
[2024-03-14] MEDS: polyethylene glycoL 3350 17 GM POWD.PACK PO (09:40)
[2024-03-14] MEDS: Milk of Magnesia 30 ML ORAL.SUSP PO (09:40)
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
[2024-03-14 20:00] VITALS: BP 135/63; PULSE 91; TEMP 35.9; O2SAT 96
[2024-03-14] MEDS: Melatonin 3 MG TABLET 9 MG PO (21:15)
[2024-03-14] MEDS: Zolpidem Tartrate 5 MG TABLET 10 MG PO (21:16)
[2024-03-14] MEDS: Sennosides/Docusate Sodium TABLET 1 TAB PO (21:17)
[2024-03-14] MEDS: Atorvastatin Calcium 40 MG TABLET PO (21:18)
[2024-03-15] MEDS: Omeprazole 20 MG CAPSULE.DR PO (07:11)
[2024-03-15] MEDS: Thyroid,Pork 30 MG TABLET 120 MG PO (07:11)
[2024-03-15 08:00] VITALS: BP 121/60; PULSE 82; RESP 18; TEMP 36.6; O2SAT 93
[2024-03-15 08:17] LABS: Glucose, Whole Blood 136 mg/dL (60-115)
[2024-03-15] MEDS: Cholecalciferol (Vitamin D3) 25 MCG TABLET 50 MCG PO (08:23)
[2024-03-15] MEDS: HaloperidoL 5 MG TABLET 10 MG PO ×2 (08:23→21:11)
[2024-03-15] MEDS: Metoprolol Succinate ER 25 MG TAB.ER.24H PO (08:23)
[2024-03-15] MEDS: Pyridoxine HCl (Vitamin B6) 50 MG TABLET 25 MG PO (08:23)
[2024-03-15] MEDS: Apixaban 5 MG TABLET PO ×2 (08:24→21:11)
[2024-03-15] MEDS: Magnesium Oxide 400 MG TABLET PO (08:24)
[2024-03-15] MEDS: Furosemide 20 MG TABLET PO (08:24)
[2024-03-15] MEDS: Benztropine Mesylate 1 MG TABLET PO ×2 (08:24→21:11)
[2024-03-15] MEDS: Cyanocobalamin (Vitamin B-12) 100 MCG TABLET PO (08:24)
[2024-03-15] MEDS: Divalproex Sodium ER 250 MG TAB.ER.24H 1000 MG PO ×2 (08:24→21:11)
[2024-03-15] MEDS: polyethylene glycoL 3350 17 GM POWD.PACK PO (09:12)
[2024-03-15] MEDS: Milk of Magnesia 30 ML ORAL.SUSP PO (09:12)
[2024-03-15] MEDS: [UNRECOGNIZED DRUG - OTHER] PO (10:26)
[2024-03-15] MEDS: CENTRUM SILVER WOMEN PO (10:26)
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
[2024-03-15 19:57] VITALS: BP 128/66; PULSE 85; TEMP 36.6; O2SAT 96
[2024-03-15] MEDS: Melatonin 3 MG TABLET 9 MG PO (21:10)
[2024-03-15] MEDS: Atorvastatin Calcium 40 MG TABLET PO (21:10)
[2024-03-15] MEDS: Sennosides/Docusate Sodium TABLET 1 TAB PO (21:11)
[2024-03-16] MEDS: Omeprazole 20 MG CAPSULE.DR PO (06:46)
[2024-03-16] MEDS: Thyroid,Pork 30 MG TABLET 120 MG PO (06:46)
[2024-03-16 08:02] LABS: Glucose, Whole Blood 136 mg/dL (60-115)
[2024-03-16 08:27] VITALS: BP 119/63; PULSE 81; RESP 16; TEMP 36.8; O2SAT 96
[2024-03-16] MEDS: HaloperidoL 5 MG TABLET PO (09:10)
[2024-03-16] MEDS: Pyridoxine HCl (Vitamin B6) 50 MG TABLET 25 MG PO (09:10)
[2024-03-16] MEDS: polyethylene glycoL 3350 17 GM POWD.PACK PO (09:10)
[2024-03-16] MEDS: Divalproex Sodium ER 250 MG TAB.ER.24H 1000 MG PO ×2 (09:10→20:22)
[2024-03-16] MEDS: Cholecalciferol (Vitamin D3) 25 MCG TABLET 50 MCG PO (09:10)
[2024-03-16] MEDS: Milk of Magnesia 30 ML ORAL.SUSP PO (09:10)
[2024-03-16] MEDS: Cyanocobalamin (Vitamin B-12) 100 MCG TABLET PO (09:11)
[2024-03-16] MEDS: Benztropine Mesylate 1 MG TABLET PO ×2 (09:11→20:24)
[2024-03-16] MEDS: Metoprolol Succinate ER 25 MG TAB.ER.24H PO (09:11)
[2024-03-16] MEDS: Furosemide 20 MG TABLET PO (09:11)
[2024-03-16] MEDS: Apixaban 5 MG TABLET PO ×2 (09:11→20:23)
[2024-03-16] MEDS: Magnesium Oxide 400 MG TABLET PO (09:11)
[2024-03-16] MEDS: Haloperidol Decanoate 50 MG/ML VIAL IM (12:03)
[2024-03-16] MEDS: [UNRECOGNIZED DRUG - OTHER] PO (12:13)
[2024-03-16] MEDS: CENTRUM SILVER WOMEN PO (12:13)
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
[2024-03-16 20:00] VITALS: BP 114/59; PULSE 83; RESP 18; TEMP 36.6; O2SAT 92
[2024-03-16] MEDS: Melatonin 3 MG TABLET 9 MG PO (20:23)
[2024-03-16] MEDS: HaloperidoL 5 MG TABLET 15 MG PO (20:24)
[2024-03-16] MEDS: Sennosides/Docusate Sodium TABLET 1 TAB PO (20:24)
[2024-03-16] MEDS: Atorvastatin Calcium 40 MG TABLET PO (20:24)
[2024-03-16] MEDS: Zolpidem Tartrate 5 MG TABLET 10 MG PO (20:29)
[2024-03-17] MEDS: Thyroid,Pork 30 MG TABLET 120 MG PO (06:50)
[2024-03-17] MEDS: Omeprazole 20 MG CAPSULE.DR PO (06:50)
[2024-03-17 07:00] VITALS: BMI 35.1
[2024-03-17 08:00] VITALS: BP 115/66; PULSE 94; RESP 16; TEMP 36.9; O2SAT 94
[2024-03-17 08:15] LABS: Glucose, Whole Blood 103 mg/dL (60-115)
[2024-03-17 09:31] VITALS: BP 115/66
[2024-03-17] MEDS: Furosemide 20 MG TABLET PO (09:31)
[2024-03-17 09:32] VITALS: BP 115/66; PULSE 84
[2024-03-17] MEDS: Apixaban 5 MG TABLET PO ×2 (09:32→20:03)
[2024-03-17] MEDS: Benztropine Mesylate 1 MG TABLET PO ×2 (09:32→20:04)
[2024-03-17] MEDS: Metoprolol Succinate ER 25 MG TAB.ER.24H PO (09:32)
[2024-03-17] MEDS: Cyanocobalamin (Vitamin B-12) 100 MCG TABLET PO (09:32)
[2024-03-17] MEDS: HaloperidoL 5 MG TABLET PO (09:32)
[2024-03-17] MEDS: Divalproex Sodium ER 250 MG TAB.ER.24H 1000 MG PO ×2 (09:32→20:04)
[2024-03-17] MEDS: CENTRUM SILVER WOMEN PO (09:33)
[2024-03-17] MEDS: Pyridoxine HCl (Vitamin B6) 50 MG TABLET 25 MG PO (09:33)
[2024-03-17] MEDS: Magnesium Oxide 400 MG TABLET PO (09:33)
[2024-03-17] MEDS: [UNRECOGNIZED DRUG - OTHER] PO (09:33)
[2024-03-17] MEDS: Cholecalciferol (Vitamin D3) 25 MCG TABLET 50 MCG PO (09:33)
[2024-03-17] MEDS: Milk of Magnesia 30 ML ORAL.SUSP PO (11:27)
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
[2024-03-17 19:48] VITALS: BP 110/57; PULSE 86; RESP 16; TEMP 36.8; O2SAT 96
[2024-03-17] MEDS: Atorvastatin Calcium 40 MG TABLET PO (20:03)
[2024-03-17] MEDS: Sennosides/Docusate Sodium TABLET 1 TAB PO (20:04)
[2024-03-17] MEDS: HaloperidoL 5 MG TABLET 15 MG PO (20:04)
[2024-03-17] MEDS: Zolpidem Tartrate 5 MG TABLET 10 MG PO (20:05)
[2024-03-17] MEDS: Melatonin 3 MG TABLET 9 MG PO (20:05)
[2024-03-18] MEDS: Thyroid,Pork 30 MG TABLET 120 MG PO (07:08)
[2024-03-18] MEDS: Omeprazole 20 MG CAPSULE.DR PO (07:08)
[2024-03-18 08:17] LABS: Glucose, Whole Blood 125 mg/dL (60-115)
[2024-03-18 08:27] VITALS: BP 102/55; PULSE 78; TEMP 36.6; O2SAT 92
[2024-03-18] MEDS: Divalproex Sodium ER 250 MG TAB.ER.24H 1000 MG PO ×2 (08:46→21:07)
[2024-03-18] MEDS: Cholecalciferol (Vitamin D3) 25 MCG TABLET 50 MCG PO (08:46)
[2024-03-18] MEDS: Benztropine Mesylate 1 MG TABLET PO ×2 (08:47→21:08)
[2024-03-18] MEDS: Furosemide 20 MG TABLET PO (08:47)
[2024-03-18] MEDS: Metoprolol Succinate ER 25 MG TAB.ER.24H PO (08:47)
[2024-03-18] MEDS: HaloperidoL 5 MG TABLET PO (08:47)
[2024-03-18] MEDS: Magnesium Oxide 400 MG TABLET PO (08:48)
[2024-03-18] MEDS: Apixaban 5 MG TABLET PO ×2 (08:48→21:09)
[2024-03-18] MEDS: CENTRUM SILVER WOMEN PO (08:56)
[2024-03-18] MEDS: [UNRECOGNIZED DRUG - OTHER] PO (08:56)
[2024-03-18] MEDS: DULAGLUTIDE 1.5 MG/0.5 ML 1.5 EACH SUBCUT (12:44)
[2024-03-18 19:57] VITALS: BP 130/61; PULSE 81; TEMP 36.8; O2SAT 93
[2024-03-18] MEDS: Melatonin 3 MG TABLET 9 MG PO (21:08)
[2024-03-18] MEDS: Sennosides/Docusate Sodium TABLET 1 TAB PO (21:08)
[2024-03-18] MEDS: Atorvastatin Calcium 40 MG TABLET PO (21:08)
[2024-03-18] MEDS: HaloperidoL 5 MG TABLET 15 MG PO (21:08)
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
[2024-03-18] MEDS: Zolpidem Tartrate 5 MG TABLET 10 MG PO (21:20)
[2024-03-19] MEDS: Omeprazole 20 MG CAPSULE.DR PO (06:43)
[2024-03-19] MEDS: Thyroid,Pork 30 MG TABLET 120 MG PO (06:43)
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
[2024-03-19 08:33] LABS: Glucose, Whole Blood 128 mg/dL (60-115)
[2024-03-19 08:52] VITALS: BP 128/60; PULSE 78; TEMP 36.9; O2SAT 90
[2024-03-19] MEDS: [UNRECOGNIZED DRUG - OTHER] PO (09:19)
[2024-03-19] MEDS: CENTRUM SILVER WOMEN PO (09:19)
[2024-03-19] MEDS: Benztropine Mesylate 1 MG TABLET PO ×2 (09:20→20:37)
[2024-03-19] MEDS: HaloperidoL 5 MG TABLET PO (09:20)
[2024-03-19] MEDS: Cholecalciferol (Vitamin D3) 25 MCG TABLET 50 MCG PO (09:20)
[2024-03-19] MEDS: Furosemide 20 MG TABLET PO (09:21)
[2024-03-19] MEDS: Apixaban 5 MG TABLET PO ×2 (09:21→20:37)
[2024-03-19] MEDS: Divalproex Sodium ER 250 MG TAB.ER.24H 1000 MG PO ×2 (09:21→20:37)
[2024-03-19] MEDS: Metoprolol Succinate ER 25 MG TAB.ER.24H PO (09:21)
[2024-03-19] MEDS: Magnesium Oxide 400 MG TABLET PO (09:21)
[2024-03-19] MEDS: Milk of Magnesia 30 ML ORAL.SUSP PO (10:13)
[2024-03-19] MEDS: polyethylene glycoL 3350 17 GM POWD.PACK PO (10:28)
[2024-03-19 19:33] VITALS: BP 157/58; PULSE 73; TEMP 36.7; O2SAT 97
[2024-03-19] MEDS: HaloperidoL 5 MG TABLET 15 MG PO (20:37)
[2024-03-19] MEDS: Melatonin 3 MG TABLET 9 MG PO (20:37)
[2024-03-19] MEDS: Atorvastatin Calcium 40 MG TABLET PO (20:37)
[2024-03-19] MEDS: Sennosides/Docusate Sodium TABLET 1 TAB PO (20:37)
[2024-03-19] MEDS: Zolpidem Tartrate 5 MG TABLET 10 MG PO (20:38)
[2024-03-20] MEDS: Omeprazole 20 MG CAPSULE.DR PO (06:55)
[2024-03-20] MEDS: Thyroid,Pork 30 MG TABLET 120 MG PO (06:55)
[2024-03-20 07:56] LABS: Glucose, Whole Blood 108 mg/dL (60-115)
[2024-03-20 08:00] VITALS: BP 118/57; PULSE 80; RESP 18; TEMP 37.1; O2SAT 90
[2024-03-20] MEDS: CENTRUM SILVER WOMEN PO (08:26)
[2024-03-20] MEDS: Furosemide 20 MG TABLET PO (08:26)
[2024-03-20] MEDS: [UNRECOGNIZED DRUG - OTHER] PO (08:26)
[2024-03-20] MEDS: Magnesium Oxide 400 MG TABLET PO (08:26)
[2024-03-20] MEDS: Cholecalciferol (Vitamin D3) 25 MCG TABLET 50 MCG PO (08:27)
[2024-03-20] MEDS: Metoprolol Succinate ER 25 MG TAB.ER.24H PO (08:27)
[2024-03-20] MEDS: Benztropine Mesylate 1 MG TABLET PO ×2 (08:27→21:07)
[2024-03-20] MEDS: Divalproex Sodium ER 250 MG TAB.ER.24H 1000 MG PO ×2 (08:27→21:06)
[2024-03-20] MEDS: Apixaban 5 MG TABLET PO ×2 (08:27→21:07)
[2024-03-20] MEDS: HaloperidoL 5 MG TABLET PO (08:27)
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
[2024-03-20] MEDS: Milk of Magnesia 30 ML ORAL.SUSP PO (18:03)
[2024-03-20 20:00] VITALS: BP 127/67; PULSE 78; RESP 15; TEMP 36.4; O2SAT 96
[2024-03-20] MEDS: Zolpidem Tartrate 5 MG TABLET 10 MG PO (21:06)
[2024-03-20] MEDS: HaloperidoL 5 MG TABLET 15 MG PO (21:06)
[2024-03-20] MEDS: Sennosides/Docusate Sodium TABLET 1 TAB PO (21:07)
[2024-03-20] MEDS: Atorvastatin Calcium 40 MG TABLET PO (21:07)
[2024-03-20] MEDS: Melatonin 3 MG TABLET 9 MG PO (21:07)
[2024-03-21] MEDS: Thyroid,Pork 30 MG TABLET 120 MG PO (06:43)
[2024-03-21] MEDS: Omeprazole 20 MG CAPSULE.DR PO ×2 (06:44→17:18)
[2024-03-21 07:55] LABS: Glucose, Whole Blood 104 mg/dL (60-115)
[2024-03-21 08:00] VITALS: BP 125/56; PULSE 89; RESP 18; TEMP 36.6; O2SAT 96
[2024-03-21] MEDS: Divalproex Sodium ER 250 MG TAB.ER.24H 1000 MG PO ×2 (08:17→20:10)
[2024-03-21] MEDS: CENTRUM SILVER WOMEN PO (08:17)
[2024-03-21] MEDS: [UNRECOGNIZED DRUG - OTHER] PO (08:17)
[2024-03-21] MEDS: Cholecalciferol (Vitamin D3) 25 MCG TABLET 50 MCG PO (08:18)
[2024-03-21] MEDS: Apixaban 5 MG TABLET PO ×2 (08:18→20:09)
[2024-03-21] MEDS: Furosemide 20 MG TABLET PO (08:18)
[2024-03-21] MEDS: Metoprolol Succinate ER 25 MG TAB.ER.24H PO (08:18)
[2024-03-21] MEDS: HaloperidoL 5 MG TABLET PO (08:19)
[2024-03-21] MEDS: Benztropine Mesylate 1 MG TABLET PO ×2 (08:19→20:10)
[2024-03-21] MEDS: Magnesium Oxide 400 MG TABLET PO (08:19)
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
[2024-03-21 20:00] VITALS: BP 117/53; PULSE 84; TEMP 36.6; O2SAT 94
[2024-03-21] MEDS: Zolpidem Tartrate 5 MG TABLET 10 MG PO (20:09)
[2024-03-21] MEDS: Sennosides/Docusate Sodium TABLET 1 TAB PO (20:09)
[2024-03-21] MEDS: Atorvastatin Calcium 40 MG TABLET PO (20:09)
[2024-03-21] MEDS: Melatonin 3 MG TABLET 9 MG PO (20:09)
[2024-03-21] MEDS: HaloperidoL 5 MG TABLET 15 MG PO (20:16)
[2024-03-22] MEDS: clonazePAM 1 MG TABLET PO (01:43)
[2024-03-22] MEDS: Omeprazole 20 MG CAPSULE.DR PO ×2 (06:45→16:52)
[2024-03-22] MEDS: Thyroid,Pork 30 MG TABLET 120 MG PO (06:45)
[2024-03-22 07:53] LABS: Glucose, Whole Blood 99 mg/dL (60-115)
[2024-03-22 08:12] VITALS: BP 111/56; PULSE 79; TEMP 36.9
[2024-03-22] MEDS: Cholecalciferol (Vitamin D3) 25 MCG TABLET 50 MCG PO (08:34)
[2024-03-22] MEDS: Magnesium Oxide 400 MG TABLET PO (08:34)
[2024-03-22] MEDS: Divalproex Sodium ER 250 MG TAB.ER.24H 1000 MG PO (08:34)
[2024-03-22] MEDS: CENTRUM SILVER WOMEN PO (08:34)
[2024-03-22] MEDS: Metoprolol Succinate ER 25 MG TAB.ER.24H PO (08:34)
[2024-03-22] MEDS: Benztropine Mesylate 1 MG TABLET PO ×2 (08:34→20:35)
[2024-03-22] MEDS: [UNRECOGNIZED DRUG - OTHER] PO (08:34)
[2024-03-22] MEDS: HaloperidoL 5 MG TABLET PO (08:35)
[2024-03-22] MEDS: Apixaban 5 MG TABLET PO ×2 (08:35→20:34)
[2024-03-22] MEDS: Furosemide 20 MG TABLET PO (08:35)
[2024-03-22] MEDS: polyethylene glycoL 3350 17 GM POWD.PACK PO (09:42)
[2024-03-22] MEDS: Milk of Magnesia 30 ML ORAL.SUSP PO (09:42)
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
[2024-03-22 20:00] VITALS: BP 115/59; PULSE 85; TEMP 36.6; O2SAT 92
[2024-03-22] MEDS: Zolpidem Tartrate 5 MG TABLET 10 MG PO (20:34)
[2024-03-22] MEDS: Divalproex Sodium Sprinkles 125 MG CAP.DR.SPR 1000 MG PO (20:34)
[2024-03-22] MEDS: Sennosides/Docusate Sodium TABLET 1 TAB PO (20:34)
[2024-03-22] MEDS: HaloperidoL 5 MG TABLET 10 MG PO (20:34)
[2024-03-22] MEDS: Atorvastatin Calcium 40 MG TABLET PO (20:35)
[2024-03-22] MEDS: Melatonin 3 MG TABLET 9 MG PO (20:35)
[2024-03-23] MEDS: clonazePAM 1 MG TABLET PO (00:17)
[2024-03-23] MEDS: Thyroid,Pork 30 MG TABLET 120 MG PO (06:52)
[2024-03-23] MEDS: Omeprazole 20 MG CAPSULE.DR PO ×2 (06:52→16:48)
[2024-03-23 08:00] VITALS: BP 120/58; PULSE 81; RESP 18; TEMP 36.6; O2SAT 93
[2024-03-23] MEDS: Cholecalciferol (Vitamin D3) 25 MCG TABLET 50 MCG PO (08:29)
[2024-03-23] MEDS: HaloperidoL 5 MG TABLET PO (08:29)
[2024-03-23] MEDS: Apixaban 5 MG TABLET PO ×2 (08:29→21:38)
[2024-03-23] MEDS: Metoprolol Succinate ER 25 MG TAB.ER.24H PO (08:29)
[2024-03-23] MEDS: Divalproex Sodium Sprinkles 125 MG CAP.DR.SPR 1000 MG PO ×2 (08:29→21:33)
[2024-03-23 08:30] LABS: Glucose, Whole Blood 123 mg/dL (60-115)
[2024-03-23] MEDS: [UNRECOGNIZED DRUG - OTHER] PO (08:30)
[2024-03-23] MEDS: Benztropine Mesylate 1 MG TABLET PO ×2 (08:30→21:38)
[2024-03-23] MEDS: CENTRUM SILVER WOMEN PO (08:30)
[2024-03-23] MEDS: Furosemide 20 MG TABLET PO (08:30)
[2024-03-23] MEDS: Magnesium Oxide 400 MG TABLET PO (08:30)
[2024-03-23 19:51] VITALS: BP 97/55; PULSE 78; TEMP 36.4; O2SAT 78
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
[2024-03-23] MEDS: HaloperidoL 5 MG TABLET 10 MG PO (21:37)
[2024-03-23] MEDS: Melatonin 3 MG TABLET 9 MG PO (21:37)
[2024-03-23] MEDS: Zolpidem Tartrate 5 MG TABLET 10 MG PO (21:38)
[2024-03-23] MEDS: Atorvastatin Calcium 40 MG TABLET PO (21:38)
[2024-03-23] MEDS: Sennosides/Docusate Sodium TABLET 1 TAB PO (21:38)
[2024-03-24] MEDS: Thyroid,Pork 30 MG TABLET 120 MG PO (06:23)
[2024-03-24] MEDS: Omeprazole 20 MG CAPSULE.DR PO ×2 (06:23→16:29)
[2024-03-24 07:00] VITALS: BMI 35.2
[2024-03-24 08:00] VITALS: BP 107/73; PULSE 89; RESP 16; TEMP 36.8; O2SAT 100
[2024-03-24 08:27] LABS: Glucose, Whole Blood 120 mg/dL (60-115)
[2024-03-24] MEDS: Benztropine Mesylate 1 MG TABLET PO ×2 (08:52→20:50)
[2024-03-24] MEDS: Cholecalciferol (Vitamin D3) 25 MCG TABLET 50 MCG PO (08:52)
[2024-03-24] MEDS: Furosemide 20 MG TABLET PO (08:52)
[2024-03-24] MEDS: Metoprolol Succinate ER 25 MG TAB.ER.24H PO (08:52)
[2024-03-24] MEDS: Apixaban 5 MG TABLET PO ×2 (08:52→20:51)
[2024-03-24] MEDS: HaloperidoL 5 MG TABLET PO (08:53)
[2024-03-24] MEDS: [UNRECOGNIZED DRUG - OTHER] PO (08:53)
[2024-03-24] MEDS: CENTRUM SILVER WOMEN PO (08:53)
[2024-03-24] MEDS: Magnesium Oxide 400 MG TABLET PO (08:53)
[2024-03-24] MEDS: polyethylene glycoL 3350 17 GM POWD.PACK PO (09:41)
[2024-03-24] MEDS: Milk of Magnesia 30 ML ORAL.SUSP PO (09:42)
[2024-03-24] MEDS: Divalproex Sodium Sprinkles 125 MG CAP.DR.SPR 1000 MG PO ×2 (10:05→20:47)
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
[2024-03-24 15:45] VITALS: BMI 35.2
[2024-03-24 20:00] VITALS: BP 125/59; PULSE 75; TEMP 36.6; O2SAT 92
[2024-03-24] MEDS: Zolpidem Tartrate 5 MG TABLET 10 MG PO (20:50)
[2024-03-24] MEDS: Sennosides/Docusate Sodium TABLET 1 TAB PO (20:51)
[2024-03-24] MEDS: Atorvastatin Calcium 40 MG TABLET PO (20:51)
[2024-03-24] MEDS: HaloperidoL 5 MG TABLET 10 MG PO (20:51)
[2024-03-24] MEDS: Melatonin 3 MG TABLET 9 MG PO (20:52)
[2024-03-25] MEDS: Thyroid,Pork 30 MG TABLET 120 MG PO (06:26)
[2024-03-25] MEDS: Omeprazole 20 MG CAPSULE.DR PO ×2 (06:27→16:25)
[2024-03-25 08:00] VITALS: BP 131/56; PULSE 80; TEMP 37.1; O2SAT 94
[2024-03-25 08:09] LABS: Glucose, Whole Blood 125 mg/dL (60-115)
[2024-03-25] MEDS: Divalproex Sodium Sprinkles 125 MG CAP.DR.SPR 1000 MG PO ×2 (08:56→21:39)
[2024-03-25] MEDS: Magnesium Oxide 400 MG TABLET PO (08:56)
[2024-03-25] MEDS: Cholecalciferol (Vitamin D3) 25 MCG TABLET 50 MCG PO (08:56)
[2024-03-25] MEDS: Benztropine Mesylate 1 MG TABLET PO ×2 (08:56→21:41)
[2024-03-25] MEDS: Apixaban 5 MG TABLET PO ×2 (08:56→21:43)
[2024-03-25] MEDS: Furosemide 20 MG TABLET PO (08:56)
[2024-03-25] MEDS: HaloperidoL 5 MG TABLET PO ×2 (08:56→21:43)
[2024-03-25] MEDS: Metoprolol Succinate ER 25 MG TAB.ER.24H PO (08:57)
[2024-03-25] MEDS: [UNRECOGNIZED DRUG - OTHER] PO (09:08)
[2024-03-25] MEDS: CENTRUM SILVER WOMEN PO (09:08)
[2024-03-25 10:09] LABS: Basophils Percent Auto 0.3 % (0-2); Eosinophils Absolute Auto 0.2 X10*3/uL (0.0-0.4); Eosinophils Percent Auto 1.3 % (0-4); Hemoglobin 12.2 g/dl (12.0-16.0); Imm Gran Abs Auto 0.23 X10*3/uL (0.00-0.03); Imm Gran Pct Auto 1.8 % (0.0-0.4); Lymphocytes Absolute Auto 3.3 X10*3/uL (1.2-4.9); Lymphocytes Percent Auto 26.4 % (20-40); MANUAL DIFF FLAG SCAN; Mean Corpuscular HGB Conc 33.9 g/dl (31.0-35.0); Mean Corpuscular Hemoglobin 31.7 pg (27.0-33.0); Mean Corpuscular Volume 93.5 fL (80.0-98.0); Monocytes Absolute Auto 0.8 X10*3/uL (0.1-1.2); Monocytes Percent Auto 6.6 % (2-11); NRBC Pct Auto 0.2 /100WBC (0.0-0.2); Neutrophils Percent Auto 63.6 % (45-73); PLT CLUMP 1; Red Blood Count 3.85 X10*6/uL (4.20-5.50); Red Cell Distribution Width 14.2 % (11.0-16.0); SCAN SMEAR FLAG 1
[2024-03-25 10:11] LABS: White Blood Count 12.6 X10*3/uL (4.8-10.8)
[2024-03-25 10:12] LABS: Alanine Aminotransferase 8 U/L (0-31); Albumin Level 3.7 g/dL (3.5-5.0); Alkaline Phosphatase 71 U/L (39-117); Anion Gap 16 (12-20); Aspartate Amino Transferase 18 U/L (5-31); Bilirubin Total 0.3 mg/dL (0.0-1.0); Blood Urea Nitrogen 17 mg/dL (9-16); Calcium 9.2 mg/dL (8.4-10.2); Carbon Dioxide 23 mmol/L (22-29); Chloride 102 mmol/L (96-108); Creatinine Clr Calc Pharmacy 91.7; Estimated Glomerular Filt Rate > 60; Glucose Random 178 mg/dL (60-115); Potassium 4.6 mmol/L (3.3-5.1); Sodium 136 mmol/L (135-145); Total Protein 6.7 g/dL (6.5-8.0)
[2024-03-25 10:13] LABS: Valproate 62.5 mcg/mL (50.0-100.0)
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
[2024-03-25 11:04] LABS: Mean Platelet Volume 11.6 fL (9.4-12.3); Platelet Count 153 X10*3/uL (160-400); SLIDE REVIEW VERIFIED
[2024-03-25 21:00] VITALS: BP 125/56; PULSE 81; RESP 18; TEMP 36.4; O2SAT 93
[2024-03-25] MEDS: Zolpidem Tartrate 5 MG TABLET 10 MG PO (21:41)
[2024-03-25] MEDS: Melatonin 3 MG TABLET 9 MG PO (21:41)
[2024-03-25] MEDS: Sennosides/Docusate Sodium TABLET 1 TAB PO (21:42)
[2024-03-26] MEDS: Thyroid,Pork 30 MG TABLET 120 MG PO (06:53)
[2024-03-26] MEDS: Omeprazole 20 MG CAPSULE.DR PO ×2 (06:53→16:12)
[2024-03-26 08:17] LABS: Glucose, Whole Blood 129 mg/dL (60-115)
[2024-03-26] MEDS: Apixaban 5 MG TABLET PO ×2 (08:49→20:52)
[2024-03-26] MEDS: Magnesium Oxide 400 MG TABLET PO (08:49)
[2024-03-26] MEDS: Furosemide 20 MG TABLET PO (08:49)
[2024-03-26] MEDS: HaloperidoL 5 MG TABLET PO ×2 (08:49→20:50)
[2024-03-26] MEDS: Cholecalciferol (Vitamin D3) 25 MCG TABLET 50 MCG PO (08:49)
[2024-03-26] MEDS: Benztropine Mesylate 1 MG TABLET PO ×2 (08:49→20:52)
[2024-03-26] MEDS: CENTRUM SILVER WOMEN PO (08:51)
[2024-03-26] MEDS: Divalproex Sodium Sprinkles 125 MG CAP.DR.SPR 1000 MG PO ×2 (08:51→20:48)
[2024-03-26] MEDS: [UNRECOGNIZED DRUG - OTHER] PO (08:51)
[2024-03-26 09:02] VITALS: BP 97/55; PULSE 76; RESP 16; TEMP 36.3; O2SAT 95
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
[2024-03-26 09:45] VITALS: BP 117/60; PULSE 75
[2024-03-26] MEDS: Metoprolol Succinate ER 25 MG TAB.ER.24H PO (09:45)
[2024-03-26] MEDS: DULAGLUTIDE 1.5 MG/0.5 ML 1.5 EACH SUBCUT (11:35)
[2024-03-26 20:00] VITALS: BP 122/61; PULSE 87; RESP 16; TEMP 36.4; O2SAT 96
[2024-03-26] MEDS: Melatonin 3 MG TABLET 9 MG PO (20:50)
[2024-03-26] MEDS: Sennosides/Docusate Sodium TABLET 1 TAB PO (20:52)
[2024-03-26] MEDS: Zolpidem Tartrate 5 MG TABLET 10 MG PO (20:53)
[2024-03-27 08:02] LABS: Glucose, Whole Blood 120 mg/dL (60-115)
[2024-03-27] MEDS: Omeprazole 20 MG CAPSULE.DR PO ×2 (08:13→16:13)
[2024-03-27] MEDS: Thyroid,Pork 30 MG TABLET 120 MG PO (08:14)
[2024-03-27] MEDS: Divalproex Sodium Sprinkles 125 MG CAP.DR.SPR 1000 MG PO ×2 (09:27→20:43)
[2024-03-27] MEDS: Cholecalciferol (Vitamin D3) 25 MCG TABLET 50 MCG PO (09:29)
[2024-03-27] MEDS: Metoprolol Succinate ER 25 MG TAB.ER.24H PO (09:29)
[2024-03-27] MEDS: Magnesium Oxide 400 MG TABLET PO (09:29)
[2024-03-27] MEDS: HaloperidoL 5 MG TABLET PO ×2 (09:29→20:43)
[2024-03-27] MEDS: Furosemide 20 MG TABLET PO (09:30)
[2024-03-27] MEDS: Benztropine Mesylate 1 MG TABLET PO ×2 (09:30→20:43)
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
[2024-03-27 09:51] VITALS: BP 112/59; PULSE 80; RESP 16; TEMP 36.6; O2SAT 94
[2024-03-27] MEDS: Apixaban 5 MG TABLET PO ×2 (10:49→20:43)
[2024-03-27] MEDS: [UNRECOGNIZED DRUG - OTHER] PO (10:49)
[2024-03-27] MEDS: CENTRUM SILVER WOMEN PO (10:49)
[2024-03-27 19:34] VITALS: BP 134/61; PULSE 90; RESP 16; TEMP 36.6; O2SAT 93
[2024-03-27] MEDS: Zolpidem Tartrate 5 MG TABLET 10 MG PO (20:43)
[2024-03-27] MEDS: Melatonin 3 MG TABLET 9 MG PO (20:43)
[2024-03-28 07:57] LABS: Glucose, Whole Blood 123 mg/dL (60-115)
[2024-03-28] MEDS: Omeprazole 20 MG CAPSULE.DR PO ×2 (08:06→16:40)
[2024-03-28] MEDS: Thyroid,Pork 30 MG TABLET 120 MG PO (08:06)
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
[2024-03-28] MEDS: [UNRECOGNIZED DRUG - OTHER] PO (09:18)
[2024-03-28] MEDS: CENTRUM SILVER WOMEN PO (09:18)
[2024-03-28] MEDS: Cholecalciferol (Vitamin D3) 25 MCG TABLET 50 MCG PO (09:18)
[2024-03-28] MEDS: Magnesium Oxide 400 MG TABLET PO (09:18)
[2024-03-28] MEDS: Metoprolol Succinate ER 25 MG TAB.ER.24H PO (09:18)
[2024-03-28] MEDS: Divalproex Sodium Sprinkles 125 MG CAP.DR.SPR 1000 MG PO ×2 (09:18→20:30)
[2024-03-28] MEDS: Furosemide 20 MG TABLET PO (09:18)
[2024-03-28] MEDS: Apixaban 5 MG TABLET PO ×2 (09:18→20:29)
[2024-03-28] MEDS: HaloperidoL 5 MG TABLET PO (09:19)
[2024-03-28] MEDS: Benztropine Mesylate 1 MG TABLET PO ×2 (09:19→20:30)
[2024-03-28 09:25] VITALS: BP 107/60; PULSE 100; RESP 16; TEMP 36.4; O2SAT 93
[2024-03-28] MEDS: clonazePAM 1 MG TABLET PO (17:00)
[2024-03-28 20:00] VITALS: BP 138/61; PULSE 91; TEMP 36.7; O2SAT 95
[2024-03-28] MEDS: Zolpidem Tartrate 5 MG TABLET 10 MG PO (20:29)
[2024-03-28] MEDS: Melatonin 3 MG TABLET 9 MG PO (20:30)
[2024-03-28] MEDS: HaloperidoL 5 MG TABLET 10 MG PO (20:30)
[2024-03-29] MEDS: Thyroid,Pork 30 MG TABLET 120 MG PO (05:22)
[2024-03-29] MEDS: Omeprazole 20 MG CAPSULE.DR PO ×2 (05:23→17:18)
[2024-03-29 07:51] LABS: Glucose, Whole Blood 117 mg/dL (60-115)
[2024-03-29 08:04] VITALS: BP 130/59; PULSE 86; RESP 18; TEMP 36.4; O2SAT 92
[2024-03-29] MEDS: Magnesium Oxide 400 MG TABLET PO (08:31)
[2024-03-29] MEDS: Apixaban 5 MG TABLET PO ×2 (08:31→20:58)
[2024-03-29] MEDS: Metoprolol Succinate ER 25 MG TAB.ER.24H PO (08:31)
[2024-03-29] MEDS: Cholecalciferol (Vitamin D3) 25 MCG TABLET 50 MCG PO (08:31)
[2024-03-29] MEDS: Divalproex Sodium Sprinkles 125 MG CAP.DR.SPR 1000 MG PO ×2 (08:32→20:59)
[2024-03-29] MEDS: Benztropine Mesylate 1 MG TABLET PO ×2 (08:32→20:59)
[2024-03-29] MEDS: HaloperidoL 5 MG TABLET PO (08:32)
[2024-03-29] MEDS: Furosemide 20 MG TABLET PO (08:32)
[2024-03-29] MEDS: [UNRECOGNIZED DRUG - OTHER] PO (08:34)
[2024-03-29] MEDS: CENTRUM SILVER WOMEN PO (08:34)
[2024-03-29] MEDS: Haloperidol Decanoate 50 MG/ML VIAL IM (08:34)
[2024-03-29] MEDS: Milk of Magnesia 30 ML ORAL.SUSP PO (08:58)
[2024-03-29] MEDS: polyethylene glycoL 3350 17 GM POWD.PACK PO (08:58)
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
[2024-03-29 19:41] VITALS: BP 138/90; PULSE 90; RESP 18; TEMP 36.3; O2SAT 93
[2024-03-29] MEDS: Sennosides/Docusate Sodium TABLET 1 TAB PO (21:00)
[2024-03-29] MEDS: Zolpidem Tartrate 5 MG TABLET 10 MG PO (21:02)
[2024-03-29] MEDS: Melatonin 3 MG TABLET 9 MG PO (21:06)
[2024-03-29] MEDS: HaloperidoL 5 MG TABLET 10 MG PO (21:19)
[2024-03-30] MEDS: Thyroid,Pork 30 MG TABLET 120 MG PO (06:45)
[2024-03-30] MEDS: Omeprazole 20 MG CAPSULE.DR PO (06:45)
[2024-03-30 07:55] VITALS: BP 103/52; PULSE 89; RESP 18; TEMP 35.8; O2SAT 92
[2024-03-30 08:02] LABS: Glucose, Whole Blood 116 mg/dL (60-115)
[2024-03-30] MEDS: CENTRUM SILVER WOMEN PO (08:22)
[2024-03-30] MEDS: [UNRECOGNIZED DRUG - OTHER] PO (08:22)
[2024-03-30] MEDS: Divalproex Sodium Sprinkles 125 MG CAP.DR.SPR 1000 MG PO ×2 (08:22→21:31)
[2024-03-30] MEDS: Cholecalciferol (Vitamin D3) 25 MCG TABLET 50 MCG PO (08:23)
[2024-03-30] MEDS: Benztropine Mesylate 1 MG TABLET PO ×2 (08:23→21:32)
[2024-03-30] MEDS: Furosemide 20 MG TABLET PO (08:23)
[2024-03-30] MEDS: Magnesium Oxide 400 MG TABLET PO (08:23)
[2024-03-30] MEDS: Metoprolol Succinate ER 25 MG TAB.ER.24H PO (08:23)
[2024-03-30] MEDS: HaloperidoL 5 MG TABLET PO (08:23)
[2024-03-30] MEDS: Apixaban 5 MG TABLET PO ×2 (08:23→21:32)
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
[2024-03-30 19:35] VITALS: BP 129/75; PULSE 92; RESP 16; TEMP 36.6; O2SAT 94
[2024-03-30] MEDS: HaloperidoL 5 MG TABLET 10 MG PO (21:31)
[2024-03-30] MEDS: Melatonin 3 MG TABLET 9 MG PO (21:32)
[2024-03-30] MEDS: Zolpidem Tartrate 5 MG TABLET 10 MG PO (21:32)
[2024-03-30] MEDS: Sennosides/Docusate Sodium TABLET 1 TAB PO (21:32)
[2024-03-31] MEDS: Omeprazole 20 MG CAPSULE.DR PO (07:13)
[2024-03-31] MEDS: Thyroid,Pork 30 MG TABLET 120 MG PO (07:13)
[2024-03-31 08:00] VITALS: BP 141/63; PULSE 88; RESP 16; TEMP 36.6; O2SAT 99
[2024-03-31 08:07] LABS: Glucose, Whole Blood 118 mg/dL (60-115)
[2024-03-31] MEDS: Apixaban 5 MG TABLET PO ×2 (09:30→21:59)
[2024-03-31] MEDS: Magnesium Oxide 400 MG TABLET PO (09:30)
[2024-03-31] MEDS: [UNRECOGNIZED DRUG - OTHER] PO (09:30)
[2024-03-31] MEDS: Cholecalciferol (Vitamin D3) 25 MCG TABLET 50 MCG PO (09:30)
[2024-03-31] MEDS: Benztropine Mesylate 1 MG TABLET PO ×2 (09:30→22:00)
[2024-03-31] MEDS: CENTRUM SILVER WOMEN PO (09:30)
[2024-03-31 09:31] VITALS: BP 141/63; PULSE 88
[2024-03-31] MEDS: Furosemide 20 MG TABLET PO (09:31)
[2024-03-31] MEDS: Metoprolol Succinate ER 25 MG TAB.ER.24H PO (09:31)
[2024-03-31] MEDS: HaloperidoL 5 MG TABLET PO (09:32)
[2024-03-31] MEDS: Divalproex Sodium Sprinkles 125 MG CAP.DR.SPR 1000 MG PO ×2 (09:32→21:55)
[2024-03-31] MEDS: Magnesium Hydrox/Alum Hydrox 30 ML ORAL.SUSP PO (10:53)
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
[2024-03-31 20:00] VITALS: BP 133/63; PULSE 86; RESP 18; TEMP 36.7; O2SAT 92
[2024-03-31] MEDS: Zolpidem Tartrate 5 MG TABLET 10 MG PO (21:58)
[2024-03-31] MEDS: clonazePAM 1 MG TABLET PO (21:59)
[2024-03-31] MEDS: HaloperidoL 5 MG TABLET 10 MG PO (21:59)
[2024-03-31] MEDS: Melatonin 3 MG TABLET 9 MG PO (22:00)
[2024-03-31] MEDS: Sennosides/Docusate Sodium TABLET 1 TAB PO (22:00)
[2024-04-01] MEDS: Thyroid,Pork 30 MG TABLET 120 MG PO (06:40)
[2024-04-01] MEDS: Omeprazole 20 MG CAPSULE.DR PO (06:40)
[2024-04-01 08:00] VITALS: BP 108/62; PULSE 80; RESP 16; TEMP 36.4; O2SAT 96
[2024-04-01 08:28] LABS: Glucose, Whole Blood 131 mg/dL (60-115)
[2024-04-01 08:38] VITALS: BP 108/62
[2024-04-01] MEDS: Cholecalciferol (Vitamin D3) 25 MCG TABLET 50 MCG PO (08:38)
[2024-04-01] MEDS: Furosemide 20 MG TABLET PO (08:38)
[2024-04-01 08:39] VITALS: BP 108/62; PULSE 80
[2024-04-01] MEDS: Divalproex Sodium Sprinkles 125 MG CAP.DR.SPR 1000 MG PO ×2 (08:39→21:07)
[2024-04-01] MEDS: HaloperidoL 5 MG TABLET PO ×2 (08:39→21:08)
[2024-04-01] MEDS: Metoprolol Succinate ER 25 MG TAB.ER.24H PO (08:39)
[2024-04-01] MEDS: Magnesium Oxide 400 MG TABLET PO (08:39)
[2024-04-01] MEDS: Benztropine Mesylate 1 MG TABLET PO ×2 (08:39→21:08)
[2024-04-01] MEDS: Apixaban 5 MG TABLET PO ×2 (08:39→21:09)
[2024-04-01] MEDS: [UNRECOGNIZED DRUG - OTHER] PO (10:21)
[2024-04-01] MEDS: Milk of Magnesia 30 ML ORAL.SUSP PO (10:21)
[2024-04-01] MEDS: CENTRUM SILVER WOMEN PO (10:21)
[2024-04-01] MEDS: polyethylene glycoL 3350 17 GM POWD.PACK PO (10:21)
[2024-04-01 10:59] LABS: MANUAL DIFF FLAG NO
[2024-04-01 11:02] LABS: Basophils Percent Auto 0.4 % (0-2); Eosinophils Absolute Auto 0.1 X10*3/uL (0.0-0.4); Eosinophils Percent Auto 1.3 % (0-4); Hematocrit 39.5 % (37.0-47.0); Hemoglobin 12.7 g/dl (12.0-16.0); Imm Gran Abs Auto 0.12 X10*3/uL (0.00-0.03); Imm Gran Pct Auto 1.1 % (0.0-0.4); Lymphocytes Absolute Auto 2.8 X10*3/uL (1.2-4.9); Lymphocytes Percent Auto 24.7 % (20-40); Mean Corpuscular HGB Conc 32.2 g/dl (31.0-35.0); Mean Corpuscular Hemoglobin 31.6 pg (27.0-33.0); Mean Corpuscular Volume 98.3 fL (80.0-98.0); Mean Platelet Volume 10.8 fL (9.4-12.3); Monocytes Absolute Auto 0.7 X10*3/uL (0.1-1.2); Monocytes Percent Auto 6.1 % (2-11); NRBC Pct Auto 0.2 /100WBC (0.0-0.2); Neutrophils Absolute Auto 7.4 x10*3/uL (2.0-8.3); Neutrophils Percent Auto 66.4 % (45-73); Platelet Count 170 X10*3/uL (160-400); Red Blood Count 4.02 X10*6/uL (4.20-5.50); Red Cell Distribution Width 14.2 % (11.0-16.0); White Blood Count 11.2 X10*3/uL (4.8-10.8)
[2024-04-01 11:18] LABS: Ammonia 27 umol/L (13-55)
[2024-04-01 11:22] LABS: Valproate 82.8 mcg/mL (50.0-100.0)
[2024-04-01 11:28] LABS: Potassium 5.6 mmol/L (3.3-5.1)
[2024-04-01 11:29] LABS: Alanine Aminotransferase 13 U/L (0-31); Albumin Level 3.7 g/dL (3.5-5.0); Alkaline Phosphatase 65 U/L (39-117); Anion Gap 13 (12-20); Aspartate Amino Transferase 25 U/L (5-31); Bilirubin Total 0.3 mg/dL (0.0-1.0); Blood Urea Nitrogen 17 mg/dL (9-16); Calcium 9.6 mg/dL (8.4-10.2); Carbon Dioxide 30 mmol/L (22-29); Chloride 101 mmol/L (96-108); Creatinine Clr Calc Pharmacy 102.7; Estimated Glomerular Filt Rate > 60; Glucose Random 162 mg/dL (60-115); Lipase 14 U/L (8-78); Sodium 138 mmol/L (135-145); Total Protein 7.1 g/dL (6.5-8.0)
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
[2024-04-01] MEDS: bisacodyL 5 MG TABLET.DR 10 MG PO (16:46)
[2024-04-01] MEDS: Simethicone 80 MG TAB.CHEW PO (16:46)
[2024-04-01 19:45] VITALS: BP 126/60; PULSE 87; RESP 18; TEMP 36.5; O2SAT 93
[2024-04-01] MEDS: Zolpidem Tartrate 5 MG TABLET 10 MG PO (21:08)
[2024-04-01] MEDS: Melatonin 3 MG TABLET 9 MG PO (21:08)
[2024-04-01] MEDS: clonazePAM 0.5 MG TABLET PO (21:09)
[2024-04-01] MEDS: Sennosides/Docusate Sodium TABLET 1 TAB PO (21:09)
[2024-04-02] MEDS: Omeprazole 20 MG CAPSULE.DR PO (07:34)
[2024-04-02] MEDS: Thyroid,Pork 30 MG TABLET 120 MG PO (07:35)
[2024-04-02 08:24] LABS: Glucose, Whole Blood 125 mg/dL (60-115)
[2024-04-02 08:27] VITALS: BP 121/57; PULSE 92; RESP 18; TEMP 36.9; O2SAT 93
[2024-04-02] MEDS: Apixaban 5 MG TABLET PO ×2 (08:39→20:41)
[2024-04-02] MEDS: Cholecalciferol (Vitamin D3) 25 MCG TABLET 50 MCG PO (08:39)
[2024-04-02] MEDS: Divalproex Sodium Sprinkles 125 MG CAP.DR.SPR 1000 MG PO ×2 (08:39→20:41)
[2024-04-02] MEDS: Metoprolol Succinate ER 25 MG TAB.ER.24H PO (08:39)
[2024-04-02] MEDS: Furosemide 20 MG TABLET PO (08:40)
[2024-04-02] MEDS: Magnesium Oxide 400 MG TABLET PO (08:40)
[2024-04-02] MEDS: Benztropine Mesylate 1 MG TABLET PO ×2 (08:40→20:41)
[2024-04-02] MEDS: HaloperidoL 5 MG TABLET PO ×2 (08:40→20:41)
[2024-04-02] MEDS: [UNRECOGNIZED DRUG - OTHER] PO (08:44)
[2024-04-02] MEDS: CENTRUM SILVER WOMEN PO (08:44)
[2024-04-02 08:49] LABS: Potassium 4.7 mmol/L (3.3-5.1)
[2024-04-02] MEDS: Mineral OiL enema 133 ML ENEMA PR (09:26)
[2024-04-02] MEDS: DULAGLUTIDE 1.5 MG/0.5 ML 1.5 EACH SUBCUT (11:10)
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
[2024-04-02] MEDS: polyethylene glycoL 3350 17 GM POWD.PACK PO (18:19)
[2024-04-02 19:37] VITALS: BP 121/51; PULSE 89; RESP 16; TEMP 36.4; O2SAT 93
[2024-04-02] MEDS: Melatonin 3 MG TABLET 9 MG PO (20:41)
[2024-04-02] MEDS: Sennosides/Docusate Sodium TABLET 1 TAB PO (20:41)
[2024-04-02] MEDS: Zolpidem Tartrate 5 MG TABLET 10 MG PO (20:41)
[2024-04-03] MEDS: Omeprazole 20 MG CAPSULE.DR PO (06:37)
[2024-04-03] MEDS: Thyroid,Pork 30 MG TABLET 120 MG PO (06:37)
[2024-04-03 07:47] VITALS: BP 112/56; PULSE 80; RESP 18; TEMP 36.9; O2SAT 90
[2024-04-03 07:58] LABS: Glucose, Whole Blood 116 mg/dL (60-115)
[2024-04-03] MEDS: [UNRECOGNIZED DRUG - OTHER] PO (08:39)
[2024-04-03] MEDS: polyethylene glycoL 3350 17 GM POWD.PACK PO (08:39)
[2024-04-03] MEDS: CENTRUM SILVER WOMEN PO (08:39)
[2024-04-03] MEDS: Metoprolol Succinate ER 25 MG TAB.ER.24H PO (08:40)
[2024-04-03] MEDS: Furosemide 20 MG TABLET PO (08:40)
[2024-04-03] MEDS: Benztropine Mesylate 1 MG TABLET PO ×2 (08:40→21:10)
[2024-04-03] MEDS: Apixaban 5 MG TABLET PO ×2 (08:40→21:09)
[2024-04-03] MEDS: Magnesium Oxide 400 MG TABLET PO (08:40)
[2024-04-03] MEDS: Cholecalciferol (Vitamin D3) 25 MCG TABLET 50 MCG PO (08:40)
[2024-04-03] MEDS: Divalproex Sodium Sprinkles 125 MG CAP.DR.SPR 1000 MG PO ×2 (08:40→21:14)
[2024-04-03] MEDS: HaloperidoL 5 MG TABLET PO ×2 (08:41→21:09)
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
[2024-04-03 20:00] VITALS: BP 126/59; PULSE 87; TEMP 36.9; O2SAT 95
[2024-04-03] MEDS: Melatonin 3 MG TABLET 9 MG PO (21:07)
[2024-04-03] MEDS: Zolpidem Tartrate 5 MG TABLET 10 MG PO (21:08)
[2024-04-03] MEDS: Sennosides/Docusate Sodium TABLET 1 TAB PO (21:10)
[2024-04-04] MEDS: clonazePAM 0.5 MG TABLET PO ×2 (00:30→21:33)
[2024-04-04] MEDS: Thyroid,Pork 30 MG TABLET 120 MG PO (07:17)
[2024-04-04] MEDS: Omeprazole 20 MG CAPSULE.DR PO (07:18)
[2024-04-04 07:44] LABS: Glucose, Whole Blood 115 mg/dL (60-115)
[2024-04-04 07:55] VITALS: BP 130/61; PULSE 83; RESP 18; TEMP 36.9; O2SAT 92
[2024-04-04] MEDS: [UNRECOGNIZED DRUG - OTHER] PO (08:42)
[2024-04-04] MEDS: Apixaban 5 MG TABLET PO ×2 (08:42→21:32)
[2024-04-04] MEDS: Cholecalciferol (Vitamin D3) 25 MCG TABLET 50 MCG PO (08:42)
[2024-04-04] MEDS: Benztropine Mesylate 1 MG TABLET PO ×2 (08:42→21:33)
[2024-04-04] MEDS: Magnesium Oxide 400 MG TABLET PO (08:42)
[2024-04-04] MEDS: Furosemide 20 MG TABLET PO (08:42)
[2024-04-04] MEDS: HaloperidoL 5 MG TABLET PO ×2 (08:42→21:35)
[2024-04-04] MEDS: Metoprolol Succinate ER 25 MG TAB.ER.24H PO (08:42)
[2024-04-04] MEDS: Divalproex Sodium Sprinkles 125 MG CAP.DR.SPR 1000 MG PO ×2 (08:42→21:30)
[2024-04-04] MEDS: CENTRUM SILVER WOMEN PO (08:42)
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
[2024-04-04] MEDS: polyethylene glycoL 3350 17 GM POWD.PACK PO (15:28)
[2024-04-04 19:46] VITALS: BP 120/66; PULSE 89; RESP 18; TEMP 36.6; O2SAT 95
[2024-04-04] MEDS: Melatonin 3 MG TABLET 9 MG PO (21:32)
[2024-04-04] MEDS: Zolpidem Tartrate 5 MG TABLET 10 MG PO (21:32)
[2024-04-04] MEDS: Sennosides/Docusate Sodium TABLET 1 TAB PO (21:33)
[2024-04-05] MEDS: Thyroid,Pork 30 MG TABLET 120 MG PO (06:01)
[2024-04-05] MEDS: Omeprazole 20 MG CAPSULE.DR PO (06:01)
[2024-04-05 08:16] LABS: Glucose, Whole Blood 124 mg/dL (60-115)
[2024-04-05 08:46] VITALS: BP 102/63; PULSE 89; RESP 16; TEMP 36.6; O2SAT 94
[2024-04-05 08:58] VITALS: BP 102/63; PULSE 89
[2024-04-05] MEDS: Furosemide 20 MG TABLET PO (08:58)
[2024-04-05] MEDS: Metoprolol Succinate ER 25 MG TAB.ER.24H PO (08:58)
[2024-04-05] MEDS: CENTRUM SILVER WOMEN PO (08:58)
[2024-04-05] MEDS: Magnesium Oxide 400 MG TABLET PO (08:58)
[2024-04-05] MEDS: Benztropine Mesylate 1 MG TABLET PO ×2 (08:58→21:12)
[2024-04-05] MEDS: HaloperidoL 5 MG TABLET PO ×2 (08:58→21:12)
[2024-04-05] MEDS: [UNRECOGNIZED DRUG - OTHER] PO (08:58)
[2024-04-05] MEDS: Apixaban 5 MG TABLET PO ×2 (08:58→21:12)
[2024-04-05] MEDS: Cholecalciferol (Vitamin D3) 25 MCG TABLET 50 MCG PO (08:58)
[2024-04-05] MEDS: Divalproex Sodium Sprinkles 125 MG CAP.DR.SPR 1000 MG PO ×2 (08:59→21:12)
[2024-04-05] MEDS: Simethicone 80 MG TAB.CHEW PO (11:15)
[2024-04-05] MEDS: polyethylene glycoL 3350 17 GM POWD.PACK PO (11:45)
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
[2024-04-05 19:58] VITALS: BP 155/67; PULSE 91; RESP 16; TEMP 36.4; O2SAT 94
[2024-04-05] MEDS: Zolpidem Tartrate 5 MG TABLET 10 MG PO (21:12)
[2024-04-05] MEDS: Melatonin 3 MG TABLET 9 MG PO (21:12)
[2024-04-05] MEDS: Sennosides/Docusate Sodium TABLET 1 TAB PO (21:12)
[2024-04-05] MEDS: clonazePAM 0.5 MG TABLET PO (21:26)
[2024-04-06] MEDS: Thyroid,Pork 30 MG TABLET 120 MG PO (06:57)
[2024-04-06] MEDS: Omeprazole 20 MG CAPSULE.DR PO (06:57)
[2024-04-06 08:26] LABS: Glucose, Whole Blood 100 mg/dL (60-115)
[2024-04-06 08:27] VITALS: BP 125/55; PULSE 84; RESP 18; TEMP 36.9; O2SAT 91
[2024-04-06] MEDS: [UNRECOGNIZED DRUG - OTHER] PO (08:30)
[2024-04-06] MEDS: CENTRUM SILVER WOMEN PO (08:30)
[2024-04-06] MEDS: Metoprolol Succinate ER 25 MG TAB.ER.24H PO (08:31)
[2024-04-06] MEDS: Cholecalciferol (Vitamin D3) 25 MCG TABLET 50 MCG PO (08:31)
[2024-04-06] MEDS: Divalproex Sodium Sprinkles 125 MG CAP.DR.SPR 1000 MG PO (08:31)
[2024-04-06] MEDS: Magnesium Oxide 400 MG TABLET PO (08:32)
[2024-04-06] MEDS: Furosemide 20 MG TABLET PO (08:32)
[2024-04-06] MEDS: HaloperidoL 5 MG TABLET PO (08:32)
[2024-04-06] MEDS: Benztropine Mesylate 1 MG TABLET PO (08:32)
[2024-04-06] MEDS: Apixaban 5 MG TABLET PO (08:32)
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
[2024-04-06 16:02] LABS: IDNOW Serial# 58CA691E; Strep A Nucleic Acid Negative (Negative)
[2024-04-06 16:50] LABS: Influenza A PCR NEGATIVE (Negative); Influenza B PCR NEGATIVE (Negative); Resp Syncy Virus RNA Qual PCR NEGATIVE (Negative); SARS COV2 PCR INHOUSE NEGATIVE (Negative)
== END 2024-04-06 16:58 | disposition home or self-care (01) | DRG 885 ==
LOC: HO.ED 12-28 13:45 → HO.PADLT16 12-28 14:04 → HO.PM5 02-14 12:30
PROVIDERS: Nurse Practitioner Family; Psychiatry & Neurology Psychiatry; Social Worker; Student in an Organized Health Care Education/Training Program; Admitting Provider Psychiatry & Neurology Psychiatry; Emergency Provider Emergency Medicine Emergency Medical Services; PCP Physician Assistant; Visit Provider Clinical Nurse Specialist Psychiatric/Mental Health, Adult
DX: F31.2 Bipolar disorder, current episode manic severe with psychotic features (principal); F43.10 Post-traumatic stress disorder, unspecified; E78.5 Hyperlipidemia, unspecified; E03.9 Hypothyroidism, unspecified; Z20.822 Contact with and (suspected) exposure to COVID-19; Z86.711 Personal history of pulmonary embolism; Z95.0 Presence of cardiac pacemaker; Z79.85 Long-term (current) use of injectable non-insulin antidiabetic drugs; Z62.810 Personal history of physical and sexual abuse in childhood; Z79.01 Long term (current) use of anticoagulants; Z79.899 Other long term (current) drug therapy
CPT/HCPCS: 0241U; 36415; 74018; 80048; 80053; 80076; 80156; 80164; 80299; 80307; 81001; 82140; 82947; 83690; 84132; 85025; 87651; 90656; 93005; 99285; J1631; S9485

== ENCOUNTER → 2023-12-26 01:51 | Outpatient (BNV) | payer MEDICARE, BC, SELFPAY | PROVIDERS: Emergency Provider Student in an Organized Health Care Education/Training Program; PCP Physician Assistant; Visit Provider Internal Medicine Cardiovascular Disease | DX: R00.0 Tachycardia, unspecified (principal) | CPT/HCPCS: 93010 ==

== ENCOUNTER 2023-12-28 14:04 | Outpatient (BNV) | payer MEDICARE, BC, SELFPAY | END 2024-04-01 11:00 | PROVIDERS: Admitting Provider Psychiatry & Neurology Psychiatry; Emergency Provider Emergency Medicine Emergency Medical Services; PCP Physician Assistant; Visit Provider Radiology Diagnostic Radiology | DX: R10.9 Unspecified abdominal pain (principal) | CPT/HCPCS: 74018 ==

== ENCOUNTER → 2023-12-28 14:04 | Outpatient (BNV) | payer MEDICARE, BC, SELFPAY | PROVIDERS: Admitting Provider Psychiatry & Neurology Psychiatry; Emergency Provider Emergency Medicine Emergency Medical Services; PCP Physician Assistant; Visit Provider Psychiatry & Neurology Psychiatry | DX: F31.2 Bipolar disorder, current episode manic severe with psychotic features (principal); F43.11 Post-traumatic stress disorder, acute | CPT/HCPCS: 90792; 99231; 99232 ==

== ENCOUNTER 2024-07-27 16:44 | Inpatient (IN) | payer MEDICARE, BC, SELFPAY ==
[2024-07-27 16:58] VITALS: BP 148/72; BP 150/77; PULSE 103; PULSE 78; RESP 18; TEMP 37.1; O2SAT 95; BMI 29.9
[2024-07-27 17:02] VITALS: BP 150/77; PULSE 103; RESP 18; TEMP 37.1; O2SAT 95
[2024-07-27 17:36] LABS: MANUAL DIFF FLAG NO
[2024-07-27 17:39] LABS: Appearance Urine Clear; Glucose Urine UA Negative (Negative); PH 7.5 (5.0-9.0); Specific Gravity - Urine 1.015 (1.005-1.025); UMIC TRIGGER UA YES
[2024-07-27 17:42] LABS: Hematocrit 37.8 % (37.0-47.0); Hemoglobin 12.8 g/dl (12.0-16.0); Imm Gran Abs Auto 0.20 X10*3/uL (0.00-0.03); Imm Gran Pct Auto 1.7 % (0.0-0.4); Lymphocytes Absolute Auto 3.6 X10*3/uL (1.2-4.9); Mean Corpuscular HGB Conc 33.9 g/dl (31.0-35.0); Mean Corpuscular Hemoglobin 32.1 pg (27.0-33.0); Mean Corpuscular Volume 94.7 fL (80.0-98.0); NRBC Abs Auto 0.030 X10*3/uL (0.0-0.012); NRBC Pct Auto 0.3 /100WBC (0.0-0.2); Platelet Count 158 X10*3/uL (160-400); Red Blood Count 3.99 X10*6/uL (4.20-5.50); White Blood Count 11.5 X10*3/uL (4.8-10.8)
[2024-07-27 17:49] LABS: Cannabinoid Screen Urine Not Detected (Not Detect)
[2024-07-27 17:54] LABS: Acetaminophen LAB < 3 mcg/mL (<30); Salicylate < 5.0 mg/dL (15-30)
--- NOTE | 2024-07-27 17:58 | PC.NURSE ---
Care Team at bedside for eval.
[2024-07-27 18:00] LABS: Alanine Aminotransferase 12 U/L (0-31); Albumin Level 3.9 g/dL (3.5-5.0); Alkaline Phosphatase 62 U/L (39-117); Anion Gap 10 (12-20); Aspartate Amino Transferase 22 U/L (5-31); Blood Urea Nitrogen 14 mg/dL (9-16); Calcium 9.3 mg/dL (8.4-10.2); Carbon Dioxide 32 mmol/L (22-29); Chloride 105 mmol/L (96-108); Creatinine Clr Calc Pharmacy 91.5; Estimated Glomerular Filt Rate > 60; Potassium 4.3 mmol/L (3.3-5.1); Sodium 143 mmol/L (135-145); Total Protein 6.4 g/dL (6.5-8.0)
[2024-07-27 18:18] LABS: COVID-19 Test Negative (Negative); IDNOW Serial# 55D5AD1C
--- NOTE | 2024-07-27 18:55 | ED.PSYCH ---
HPI - Psych General Chief Complaint: Psychiatric Symptoms Stated Complaint: SI, hx bipolar, wants to speak to crisis Time Seen by Provider: 07/27/24 16:53 Source: patient and RN notes reviewed Mode of arrival: ambulatory Limitations: no limitations History of Present Illness ED Provider: Nadira Cochran PA-C HPI Narrative: This is a 64-year-old female, with a history of bipolar disorder, hypertension, hyperlipidemia, type 2 diabetes, hypothyroidism, PTSD, bipolar disorder, and atrial fibrillation on Eliquis, who presents emergency department with concerns of suicidal ideation for the last week. Patient was previously admitted to the hospital psychiatrically from December 29, 2023 until April 06, 2024. She states that her medications have been adjusted, and states that since she has been on Haldol she has had increased tremors. She does report some auditory hallucinations. Denies any command hallucinations. She states that it has tremors have been occurring for the last 5 months and she has been followed by her psychiatrist for this. Patient denies any physical ambulance. She denies any chest pain, shortness of breath, dizziness, headache, abdominal pain, nausea, vomiting or diarrhea. Denies any other complaints or concerns at this time. MD complaint: suicidal ideation and feels depressed Related Data Home Medications ?Medication ?Instructions ?Recorded ?Confirmed apixaban 5 mg tablet (Eliquis) 5 mg PO BID 07/27/24 07/27/24 atorvastatin 40 mg tablet 40 mg PO DAILY 07/27/24 07/27/24 benztropine 2 mg tablet 2 mg PO BEDTIME 07/27/24 07/27/24 cholecalciferol (vitamin D3) 25 25 mcg PO DAILY 07/27/24 07/27/24 mcg (1,000 unit) tablet divalproex 125 mg capsule,delayed 1,000 mg PO BID 07/27/24 07/27/24 release sprinkle furosemide 20 mg tablet 20 mg PO DAILY 07/27/24 07/27/24 haloperidol decanoate 100 mg/mL 100 mg IM QMONTH 07/27/24 07/27/24 intramuscular solution melatonin 3 mg tablet 9 mg PO DAILY 07/27/24 07/27/24 metoprolol succinate 25 mg 25 mg PO DAILY 07/27/24 07/27/24 tablet,extended release 24 hr omeprazole 20 mg capsule,delayed 20 mg PO QAM 07/27/24 07/27/24 release zolpidem 5 mg tablet 5 mg PO BEDTIME PRN Insomnia 07/27/24 07/27/24 Previous Rx's ?Medication ?Instructions ?Recorded magnesium oxide 400 mg (241.3 mg 400 mg PO DAILY 30 days #30 tabs 02/08/24 magnesium) tablet haloperidol 5 mg tablet 5 mg PO BID #60 tabs 04/05/24 polyethylene glycol 3350 17 gram 17 g PO DAILY PRN 04/05/24 oral powder packet Constipation,severe #30 packets Allergies Allergy/AdvReac Type Severity Reaction Status Date / Time amoxicillin Allergy Unknown Verified 07/27/24 16:59 Review of Systems Review of Systems: Yes all other systems are reviewed and are negative Constitutional: Constitutional: Reports as per [facility] Past Medical History Attestation statement: The following information was validated with the patient. Medical History (Updated 07/28/24 @ 13:19 by Silke Stockton) Bipolar affective disorder, manic, severe, with psychotic behavior Persistent atrial fibrillation Paroxysmal atrial fibrillation Bipolar disorder Schizoaffective disorder, bipolar type Hypertension Hyperlipidemia Type II diabetes mellitus PTSD (post-traumatic stress disorder) Surgical History History of cholecystectomy Social History Social History Household Members: None Housing: Condominium Housing Other:: [facility] facility Do you presently have visiting nurse or other home services: No Comment: sitter in room Patient Tobacco Use Status: Never used Tobacco Tobacco use type: Cigarette Smoked in Last 30 Days: No e-Cigarette/Vaping Use: Never Used Use of substances other than those prescribed or required for medical reasons: No Substance Use Type: Caffiene Advance Directives: Yes Advance Directives Information Provided: Yes Advance Directives on File: Yes Advance Directives Date on File: 04/07/24 Do you have a plan to hurt others: No Plan service: No Sexual orientation: Straight/Heterosexual Physical Exam Vital Signs: Vital Signs: Last Vital Signs Temp 98.2 F 07/28/24 06:09 Pulse 83 07/28/24 06:09 Resp 16 07/28/24 06:09 BP 140/65 H 07/28/24 06:09 Pulse Ox 96 07/28/24 06:09 O2 Del Method Room Air 07/28/24 06:09 BMI result Body Mass Index 29.9 Const: General: cooperative, comfortable and no acute distress Orientation/consciousness: patient oriented x3 Limitations: no limitations HEENT: Head: Yes normal to inspection, Yes normocephalic and Yes atraumatic Ears: hearing grossly normal bilaterally General nose exam: Normal external nose present Face and sinus: Yes normal facial exam Mouth: Normal oral and palatal mucosa present, oropharynx normal and moist mucous membranes Throat: Yes posterior oropharynx normal Eyes: General: appearance normal, both eyes and all related structures Eyelids: Yes eyelids normal Conjunctivae: conjunctivae normal Sclerae: sclerae normal Pupils: Equal, round and reactive pupils present EOM: EOMs intact bilaterally Neck: Neck: Yes normal visual inspection, Yes full ROM and Yes no lymphadenopathy Lymphatic: no lymphadenopathy noted Chest: Chest palpation & inspection: normal inspection of the chest Resp: Effort & Inspection: normal respiratory effort and able to speak in complete sentences Auscultation: clear to auscultation bilaterally, no crackles, no rales, no rhonchi and no wheezes Cardio: Rate: regular rate Rhythm: regular rhythm Heart sounds: S1 normal heart sound present and S2 normal heart sound present GI: Inspection: Yes normal to inspection Skin: General skin exam: no rashes or lesions noted Trauma: no lacerations or abrasions Wounds: no wounds Neuro: Other: Resting tremor noted in bilateral upper extremities. General: patient oriented x3 and moves all extremities Cranial nerves: Yes CN's II-XII intact bilaterally and Yes Equal, round and reactive pupils present Extrem: General: Yes normal to inspection Right upper extremity: normal to inspection Left upper extremity: normal to inspection Right lower extremity: normal to inspection Left lower extremity: normal to inspection Course Reevaluation(s) Reevaluation #1: Time: 08:29 Date: 07/28/24 Provider: Stuart Lara MD Patient in physician observation for psychiatric evaluation.? No acute events reported overnight. No current complaints. VS stable.? Patient is in bed search status/pending CARE team evaluation. Will continue to monitor. Reevaluation #2: 07/28/2024 13:30 PATIENT WILL BE ADMITTED TO THE PSYCHIATRIC UNIT, WE WILL END THE ED OBSERVATION STATUS Time: 13:30 Medications Administered Generic Name Dose Route Start Last Admin Trade Name Freq PRN Reason Stop Dose Admin Apixaban 5 mg 07/27/24 21:00 07/28/24 08:47 Apixaban 5 Mg Tablet PO 5 mg BID BERNARDA Administration Benztropine Mesylate 2 mg 07/27/24 21:00 07/27/24 20:56 Benztropine Mesylate 1 Mg Tablet PO 2 mg BEDTIME BERNARDA Administration Divalproex Sodium 1,000 mg 07/27/24 21:00 07/28/24 08:47 Divalproex Sodium Sprinkles 125 Mg Cap. PO 1,000 mg BID BERNARDA Administration Furosemide 20 mg 07/28/24 09:00 07/28/24 08:47 Furosemide 20 Mg Tablet PO 20 mg DAILY BERNARDA Administration Protocol Haloperidol 5 mg 07/27/24 21:00 07/28/24 08:55 Haloperidol 5 Mg Tablet PO 5 mg BID BERNARDA Administration Omeprazole 20 mg 07/28/24 06:30 07/28/24 06:05 Omeprazole 20 Mg Capsule. PO 20 mg DAILY@0630 BERNARDA Administration Vitamin D 25 mcg 07/28/24 09:00 07/28/24 08:46 Cholecalciferol (Vitamin D3) 25 Mcg Tablet PO 25 mcg DAILY BERNARDA Administration Zolpidem Tartrate 5 mg 07/27/24 20:19 07/27/24 20:55 Zolpidem Tartrate 5 Mg Tablet PO 5 mg BEDTIME PRN Administration Insomnia Discontinued Medications Generic Name Dose Route Start Last Admin Trade Name Freq PRN Reason Stop Dose Admin Melatonin 9 mg 07/27/24 20:30 07/27/24 20:55 Melatonin 3 Mg Tablet PO 9 mg DAILY BERNARDA Administration Metoprolol Succinate 25 mg 07/28/24 09:00 07/28/24 08:52 Metoprolol Succinate Er 25 Mg Tab.Er.24h PO Not Given DAILY BERNARDA Protocol Medical Decision Making Medical Decision Making MDM Narrative: This is a 64-year-old female, with a past medical history of AFib, bipolar disorder, PTSD, who presents emergency department with concerns of suicidal ideation for the last week. She has no plan. On arrival, obvious tremor noted, she states that this is chronic for her, ongoing for the last 6 months, currently being followed by her psychiatrist. States that it worsened after starting on Haldol. On arrival, patient tachycardic at 103. She has no physical ailments at this time. No current pain. Will obtain labs, UA, U tox, and COVID screen and patient will be evaluated by the care team. Course: Slight leukocytosis at 11.5, chemistry with no significant electrolyte derangement. Urine revealing small leuk esterases, however does have squamous cells present, will await urine culture. She has no urinary symptoms. U tox negative. At this time, patient is medically cleared awaiting care team consult. Patient will be placed in physician observation. >> patient is seen by care team, recommending psychiatric bed search. Differential Diagnosis Differential Diagnoses: The differential diagnosis associated with the presentation includes Suicidal ideation, homicidal ideation, depression, anxiety Admission/Observation Consideration of admission/observation: Escalation of care including admission/observation considered Lab Data MDM Lab Attestation statement: I reviewed the patient's lab results. See course comment 07/27/24 17:31 07/27/24 17:31 Labs: Lab Results 07/27/24 07/27/24 07/27/24 Range/Units 17:31 17:59 19:36 WBC 11.5 H (4.8-10.8) X10*3/uL RBC 3.99 L (4.20-5.50) X10*6/uL Hgb 12.8 (12.0-16.0) g/dl Hct 37.8 (37.0-47.0) % MCV 94.7 (80.0-98.0) fL MCH 32.1 (27.0-33.0) pg MCHC 33.9 (31.0-35.0) g/dl RDW 14.1 (11.0-16.0) % Plt Count 158 L (160-400) X10*3/uL MPV 10.8 (9.4-12.3) fL Immature Gran % (Auto) 1.7 H (0.0-0.4) % Neut % (Auto) 58.6 (45-73) % Lymph % (Auto) 31.2 (20-40) % [place] % (Auto) 7.8 (2-11) % Eos % (Auto) 0.4 (0-4) % Baso % (Auto) 0.3 (0-2) % Lymph # (Auto) 3.6 (1.2-4.9) X10*3/uL [place] # (Auto) 0.9 (0.1-1.2) X10*3/uL Eos # (Auto) 0.1 (0.0-0.4) X10*3/uL Baso # (Auto) 0.0 (0.0-0.2) X10*3/uL Abs Immat Gran (auto) 0.20 H (0.00-0.03) X10*3/uL Absolute Neuts (auto) 6.7 (2.0-8.3) x10*3/uL Absolute Nucleated RBC 0.030 H (0.0-0.012) X10*3/uL Nucleated RBC % (auto) 0.3 H (0.0-0.2) /100WBC Sodium 143 (135-145) mmol/L Potassium 4.3 (3.3-5.1) mmol/L Chloride 105 (96-108) mmol/L Carbon Dioxide 32 H (22-29) mmol/L Anion Gap 10 L (12-20) BUN 14 (9-16) mg/dL Creatinine 0.66 (0.5-1.4) mg/dL Estim Creat Clear Calc 91.5 Estimated GFR > 60 POC Glucose 96 (60-115) mg/dL Random Glucose 94 (60-115) mg/dL Calcium 9.3 (8.4-10.2) mg/dL Total Bilirubin 0.3 (0.0-1.0) mg/dL AST 22 (5-31) U/L ALT 12 (0-31) U/L Alkaline Phosphatase 62 (39-117) U/L Total Protein 6.4 L (6.5-8.0) g/dL Albumin 3.9 (3.5-5.0) g/dL TSH 1.12 (0.32-4.0) uIU/mL Urine Color Yellow Urine Appearance Clear Urine pH 7.5 (5.0-9.0) Ur Specific [place] 1.015 (1.005-1.025) Urine Protein Negative (Neg-Trace) mg/dL Urine Glucose (UA) Negative (Negative) mg/dL Urine Ketones Trace (Negative) mg/dL Urine Blood Negative (Negative) Urine Nitrite Negative (Negative) Ur Leukocyte Esterase Small (1+) H (Negative) Urine RBC 0-2 (0-2) /HPF Urine WBC 11-20 H (0-5) /HPF Ur Squamous Epith Cells 3-5 (0-2) /HPF Urine Bacteria 1+ (None Seen) Hyaline Casts 0-2 (0-2) /LPF Salicylates < 5.0 L (15-30) mg/dL Urine Opiates Screen Not Detected (Not Detect) Ur Buprenorphine Scrn Not Detected (Not Detect) ng/mL Ur Oxycodone Screen Not Detected (Not Detect) ng/mL Urine Methadone Screen Not Detected (Not Detect) ng/mL Urine Fentanyl Screen Not Detected (Not Detect) Acetaminophen < 3 (<30) mcg/mL Ur Barbiturates Screen Not Detected (Not Detect) Ur Phencyclidine Scrn Not Detected (Not Detect) Ur Amphetamines Screen Not Detected (Not Detect) U Benzodiazepines Scrn Not Detected (Not Detect) Urine Cocaine Screen Not Detected (Not Detect) U Marijuana (THC) Screen Not Detected (Not Detect) Ethyl Alcohol < 10 mg/dL COVID-19 (ANIL) Cancelled Negative COVID-19 Clin Com Cancelled See Note Radiology Impression Discussion of test interpretation with radiology: I have reviewed the radiologist's reading. External Record Review External record reviewed: Inpatient record, Office record, Outpatient record, Prior outpatient labs, Prior outpatient radiology, Primary care record and Outside ED record Discharge Plan Discharge Clinical Impression: Suicidal ideation, Posttraumatic stress disorder Bipolar affective psychosis Qualifiers: Active/Remission status: currently active Current bipolar episode type: depressed Current episode severity: unspecified Qualified Code(s): F31.30 - Bipolar disorder, current episode depressed, mild or moderate severity, unspecified Patient Disposition: Admitted As Inpatient Interventions: [place]-Suicide Risk Severity Scale Last Done: 07/27/24 17:02 Discharge Date/Time: 07/28/24 13:19
--- NOTE | 2024-07-27 18:56 | ECG_ITS ---
Test Reason : MED CLEAR Blood Pressure : */* mmHG Vent. Rate : 94 BPM Atrial Rate : 94 BPM P-R Int : 168 ms QRS Dur : 82 ms QT Int : 344 ms P-R-T Axes : 67 72 70 degrees QTcB Int : 430 ms Normal sinus rhythm Normal ECG When compared with ECG of 26-Dec-2023 02:08, Nonspecific T wave abnormality now evident in Lateral leads Referred By: Nadira Cochran Electronically Signed By: Cesar Truong
[2024-07-27 19:41] LABS: Glucose, Whole Blood 96 mg/dL (60-115)
[2024-07-27] MEDS: Divalproex Sodium Sprinkles 125 MG CAP.DR.SPR 1000 MG PO (20:55)
--- NOTE | 2024-07-27 22:05 | MHC.CARE ---
Patient will be adult IPLOC. Section 12a in chart for safety.
[2024-07-28 06:09] VITALS: BP 140/65; PULSE 83; RESP 16; TEMP 36.8; O2SAT 96
[2024-07-28] MEDS: Divalproex Sodium Sprinkles 125 MG CAP.DR.SPR 1000 MG PO ×2 (08:47→20:50)
--- NOTE | 2024-07-28 12:58 | PC.NURSE ---
Report given to M5.
[2024-07-28 13:24] VITALS: BMI 36.4
[2024-07-28 13:28] VITALS: BP 148/72; PULSE 103; RESP 18; TEMP 36.8; O2SAT 94
--- NOTE | 2024-07-28 17:15 | PC.ADMIT ---
Daily is a 64yr old woman admitted to , on a CV, for increasing depression with vague SI. Daily is well known to us. Her psychiatric history includes PTSD, Bipolar, Schizoaffective Disorder, Psychosis & Jennifer. She was last discharged from [facility] in March of this year. Daily reports a more recent stay at [facility], during which her meds were adjusted. Today, her thoughts are organized, she is calm, pleasant, alert and oriented x4. Daily states that she has been crying a lot, feeling down & lonely. She?s been unable to focus on things she enjoys such as watching TV & reading books. Daily loves to knit & says her worsened hand tremors are making that difficult as well. She endorses occasional AH of ?voices? (not command). She is able to contract for safety & denies current SI/HI/VH. Daily states her SI were related to what is happening to her body & not being able to control it. Daily is hoping to achieve relief with medication adjustments during this hospital stay. Her skin check is unremarkable. She will be on 15min safety checks during the day & 5min checks during the night while school lunch monitor is in her room.
[2024-07-28 20:00] VITALS: BP 118/59; PULSE 96; RESP 16; TEMP 36.8; O2SAT 97
[2024-07-28 20:54] LABS: Glucose, Whole Blood 134 mg/dL (60-115)
[2024-07-28] MEDS: Metoprolol Succinate ER 25 MG TAB.ER.24H PO (20:57)
[2024-07-29 08:33] LABS: Hemoglobin A1C 156.5789 umol/L; Total Hemoglobin (HGBA1C) 3541.9881 umol/L
[2024-07-29 08:49] LABS: Cholesterol 171 mg/dL (<200); HDL Cholesterol 44 mg/dL (>40); Magnesium 1.8 mg/dL (1.6-2.6); Triglycerides 175 mg/dL (<150)
[2024-07-29 09:07] LABS: Free T4 (Free Thyroxine) 0.81 ng/dL (0.71-1.85); Thyroid Stimulating Hormone 2.48 uIU/mL (0.32-4.0)
[2024-07-29 09:11] VITALS: BP 135/64; PULSE 82; TEMP 36.6; O2SAT 94
[2024-07-29] MEDS: Divalproex Sodium Sprinkles 125 MG CAP.DR.SPR 1000 MG PO ×2 (09:12→21:05)
[2024-07-29 09:18] LABS: Folate 13.0 ng/mL (> or = 4.0); Vitamin B12 1199 pg/mL (200-900)
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
[2024-07-29 20:00] VITALS: BP 123/60; PULSE 102; RESP 15; TEMP 37.1; O2SAT 93
[2024-07-29] MEDS: Metoprolol Succinate ER 25 MG TAB.ER.24H PO (21:05)
--- NOTE | 2024-07-30 05:53 | HO.PSYCHPN ---
Subjective Subjective Date of Service: 07/30/24 Reason For Visit: PTSD Bipolar Disorder with Psychosis Healthcare Proxy: Yes Interim History: Pt seen, discussed with team. Reports passive SI at times but better overall. Tremor in R arm intermittent. Discussed meds. Pt has interest in an Abilify trial. Will decrease PO Haldol to 5 mg HS and trial 5 mg Abilify in the a.m. She is pleased with this. You all give me hope. Medication Compliance: Yes Side effects from medications: Yes (tremor) Attending Groups: Intermittent Review of Systems Acute medical concerns: No Review of Systems Review of Systems Just the tremor Mental Status Exam Mental Status Exam Patient Appearance: Appropriate Patient Orientation: Person, Place, Time and Situation Level of Consciousness: Alert Patient Behavior: Appropriate, Talkative and Cooperative Mood Description: Depressed and Anxious Affect Description: Flat Patient Cognition Impaired: No Ability to Follow Directions: Good Speech Pattern: Spontaneous Speech Memory Description: Episodic Impaired Hallucinations: Auditory Delusions: Present (mild) Thought Process: Rumination Thought Content: positive for Intact, positive for Circumstantial, positive for Perseveration and positive for Suicidal Ideation Judgement: Fair Diagnostics Vital Signs (24Hr): Vital Signs - 24 hr 07/29/24 09:11 07/29/24 09:11 07/29/24 20:00 Temperature 97.9 F 98.8 F Pulse Rate 82 102 H Respiratory Rate 15 Blood Pressure 135/64 135/64 123/60 Pulse Oximetry 94 93 Oxygen Delivery Method Room Air BMI result Body Mass Index 36.4 Labs 07/27/24 17:31 07/27/24 17:31 Labs: Laboratory Results - last 48 hr 07/28/24 07/29/24 20:17 07:59 POC Glucose 134 H Estimat Average Glucose 131 Hemoglobin A1c % 6.2 H Magnesium 1.8 Triglycerides 175 H Cholesterol 171 LDL Cholesterol, Calc 92 HDL Cholesterol 44 Vitamin B12 1199 H Folate 13.0 TSH 2.48 Free T4 0.81 Medications Medications Current Medications Acetaminophen (Acetaminophen 325 Mg Tablet) 650 mg PO Q6H PRN PRN Reason: Headache/Pain, Scale 1-10 Al Hydroxide/Mg Hydroxide (Magnesium Hydrox/Alum Hydrox 30 Ml Oral.Susp) 30 ml PO Q6H PRN PRN Reason: Heartburn/Nausea Apixaban (Apixaban 5 Mg Tablet) 5 mg PO BID [facility] Last Admin: 07/29/24 21:05 Dose: 5 mg Atorvastatin Calcium (Atorvastatin Calcium 40 Mg Tablet) 40 mg PO BEDTIME [facility] Last Admin: 07/29/24 21:05 Dose: 40 mg Benztropine Mesylate (Benztropine Mesylate 1 Mg Tablet) 2 mg PO BEDTIME [facility] Last Admin: 07/29/24 21:04 Dose: 2 mg Divalproex Sodium (Divalproex Sodium Sprinkles 125 Mg Cap.) 1,000 mg PO BID [facility] Last Admin: 07/29/24 21:05 Dose: 1,000 mg Furosemide (Furosemide 20 Mg Tablet) 20 mg PO DAILY [facility]; Protocol Last Admin: 07/29/24 09:11 Dose: 20 mg Haloperidol (Haloperidol 5 Mg Tablet) 5 mg PO BID [facility] Last Admin: 07/29/24 21:05 Dose: 5 mg Haloperidol Decanoate (Haloperidol Decanoate 50 Mg/Ml Vial) 100 mg IM Q30D [facility] Hydroxyzine HCl (Hydroxyzine Hcl 25 Mg Tablet) 25 mg PO Q6H PRN PRN Reason: mild anxiety Lorazepam (Lorazepam 1 Mg Tablet) 1 mg PO Q4H PRN PRN Reason: Anxiety Last Admin: 07/29/24 21:06 Dose: 1 mg Magnesium Hydroxide (Milk Of Magnesia 30 Ml Oral.Susp) 30 ml PO DAILY PRN PRN Reason: Constipation Magnesium Oxide (Magnesium Oxide 400 Mg Tablet) 400 mg PO DAILY [facility] Last Admin: 07/29/24 09:12 Dose: 400 mg Melatonin (Melatonin 3 Mg Tablet) 9 mg PO BEDTIME [facility] Last Admin: 07/29/24 21:05 Dose: 9 mg Metoprolol Succinate (Metoprolol Succinate Er 25 Mg Tab.Er.24h) 25 mg PO BEDTIME [facility]; Protocol Last Admin: 07/29/24 21:05 Dose: 25 mg Nicotine Polacrilex (Nicotine Polacrilex 2 Mg Gum) 4 mg BUCCAL Q2H PRN PRN Reason: Nicotine Cravings Pt Own (Trulicity 1. 5 Mg/ 0.5 Ml Injection ) 0.5 ml SUBCUT Sa@0900 [facility] Omeprazole (Omeprazole 20 Mg Capsule.) 20 mg PO DAILY@0630 [facility] Last Admin: 07/29/24 06:51 Dose: 20 mg Polyethylene Glycol (Polyethylene Glycol 3350 17 Gm Powd.Pack) 17 gm PO DAILY PRN PRN Reason: Constipation,severe Last Admin: 07/29/24 09:15 Dose: 17 gm Trazodone HCl (Trazodone Hcl 50 Mg Tablet) 50 mg PO BEDTIME MRX1 PRN PRN Reason: Insomnia Vitamin D (Cholecalciferol (Vitamin D3) 25 Mcg Tablet) 25 mcg PO DAILY [facility] Last Admin: 07/29/24 09:12 Dose: 25 mcg Zolpidem Tartrate (Zolpidem Tartrate 5 Mg Tablet) 5 mg PO BEDTIME PRN PRN Reason: Insomnia Last Admin: 07/29/24 21:05 Dose: 5 mg Allergies Allergies Allergy/AdvReac Type Severity Reaction Status Date / Time amoxicillin Allergy Unknown Verified 07/27/24 16:59 Assessment & Plan Assessment & Plan (1) PTSD (post-traumatic stress disorder): Status: Acute Code(s): F43.10 - Post-traumatic stress disorder, unspecified (2) Bipolar affective psychosis: Qualifiers: Active/Remission status: currently active Current bipolar episode type: depressed Current episode severity: unspecified Qualified Code(s): F31.30 - Bipolar disorder, current episode depressed, mild or moderate severity, unspecified Status: Acute Code(s): F31.9 - Bipolar disorder, unspecified Plan Admit, CV, 15 minute checks Valproate Level Collateral Contact Diagnostics as needed Continue current regime Discussed options with pt, chart reports Horace' guardianship is in place. Will search for this 07/30: Decrease Haldol PO to 5 mg HS Abilify 5 mg a.m. Reason for continued inpatient stay Substantial Risk for: rapid decompensation Time Spent With Patient Time: Total time managing care of this patient today ____ minutes.
[2024-07-30 07:54] LABS: Glucose, Whole Blood 142 mg/dL (60-115)
[2024-07-30 08:00] VITALS: BP 153/89; PULSE 84; RESP 18; TEMP 36.9; O2SAT 96
[2024-07-30] MEDS: Divalproex Sodium Sprinkles 125 MG CAP.DR.SPR 1000 MG PO ×2 (09:02→20:23)
[2024-07-30] MEDS: TRULICITY 1.5 MG/0.5 ML 0.5 EACH SUBCUT (09:20)
[2024-07-30] MEDS: Milk of Magnesia 30 ML ORAL.SUSP PO (11:08)
[2024-07-30] MEDS: Magnesium Hydrox/Alum Hydrox 30 ML ORAL.SUSP PO (16:44)
[2024-07-30 20:00] VITALS: BP 142/89; PULSE 88; RESP 16; TEMP 36.8; O2SAT 94
[2024-07-30] MEDS: Metoprolol Succinate ER 25 MG TAB.ER.24H PO (20:24)
--- NOTE | 2024-07-31 05:33 | P.PNPSI_ITS ---
Subjective Subjective Date of Service: 07/31/24 Reason For Visit: PTSD Bipolar Disorder with Psychosis Healthcare Proxy: Yes Interim History: Pt seen in the milieu, reviewed with her team. Sister visiting this afternoon. Pt reports Abilify was tolerated on first dose and she feels hopeful regarding potential success of this medication. Medication Compliance: Yes Side effects from medications: Yes (tremor) Attending Groups: Yes Review of Systems Acute medical concerns: No Medical Review of Systems: unchanged Review of Systems Review of Systems Denies Mental Status Exam Mental Status Exam Patient Appearance: Appropriate Patient Orientation: Person, Place, Time and Situation Level of Consciousness: Alert Patient Behavior: Appropriate, Talkative and Cooperative Mood Description: Depressed and Anxious Affect Description: Flat Patient Cognition Impaired: No Ability to Follow Directions: Good Speech Pattern: Spontaneous Speech Memory Description: Episodic Impaired Hallucinations: Auditory Delusions: Present (mild) Thought Process: Rumination Thought Content: positive for Intact, positive for Circumstantial, positive for Perseveration and positive for Suicidal Ideation Judgement: Fair Diagnostics Vital Signs (24Hr): Vital Signs - 24 hr 07/30/24 08:00 07/30/24 20:00 Temperature 98.4 F 98.3 F Pulse Rate 84 88 Respiratory Rate 18 16 Blood Pressure 153/89 H 142/89 H Pulse Oximetry 96 94 Oxygen Delivery Method Room Air Room Air BMI result Body Mass Index 36.4 Labs 07/27/24 17:31 07/27/24 17:31 Labs: Laboratory Results - last 48 hr 07/29/24 07/30/24 07/30/24 07:59 07:35 08:36 POC Glucose 142 H Estimat Average Glucose 131 Hemoglobin A1c % 6.2 H Magnesium 1.8 Triglycerides 175 H Cholesterol 171 LDL Cholesterol, Calc 92 HDL Cholesterol 44 Vitamin B12 1199 H Folate 13.0 TSH 2.48 Free T4 0.81 Valproic Acid 71.0 Medications Medications Current Medications Acetaminophen (Acetaminophen 325 Mg Tablet) 650 mg PO Q6H PRN PRN Reason: Headache/Pain, Scale 1-10 Al Hydroxide/Mg Hydroxide (Magnesium Hydrox/Alum Hydrox 30 Ml Oral.Susp) 30 ml PO Q6H PRN PRN Reason: Heartburn/Nausea Last Admin: 07/30/24 16:44 Dose: 30 ml Apixaban (Apixaban 5 Mg Tablet) 5 mg PO BID [facility] Last Admin: 07/30/24 20:23 Dose: 5 mg Aripiprazole (Aripiprazole 5 Mg Tablet) 5 mg PO DAILY [facility] Atorvastatin Calcium (Atorvastatin Calcium 40 Mg Tablet) 40 mg PO BEDTIME [facility] Last Admin: 07/30/24 20:23 Dose: 40 mg Benztropine Mesylate (Benztropine Mesylate 1 Mg Tablet) 2 mg PO BEDTIME [facility] Last Admin: 07/30/24 20:23 Dose: 2 mg Divalproex Sodium (Divalproex Sodium Sprinkles 125 Mg Cap.) 1,000 mg PO BID [facility] Last Admin: 07/30/24 20:23 Dose: 1,000 mg Furosemide (Furosemide 20 Mg Tablet) 20 mg PO DAILY [facility]; Protocol Last Admin: 07/30/24 09:00 Dose: 20 mg Haloperidol (Haloperidol 5 Mg Tablet) 5 mg PO BEDTIME [facility] Last Admin: 07/30/24 21:52 Dose: 5 mg Haloperidol Decanoate (Haloperidol Decanoate 50 Mg/Ml Vial) 100 mg IM Q30D [facility] Hydroxyzine HCl (Hydroxyzine Hcl 25 Mg Tablet) 25 mg PO Q6H PRN PRN Reason: mild anxiety Lorazepam (Lorazepam 1 Mg Tablet) 1 mg PO Q4H PRN PRN Reason: Anxiety Last Admin: 07/30/24 15:39 Dose: 1 mg Magnesium Hydroxide (Milk Of Magnesia 30 Ml Oral.Susp) 30 ml PO DAILY PRN PRN Reason: Constipation Last Admin: 07/30/24 11:08 Dose: 30 ml Magnesium Oxide (Magnesium Oxide 400 Mg Tablet) 400 mg PO DAILY [facility] Last Admin: 07/30/24 09:00 Dose: 400 mg Melatonin (Melatonin 3 Mg Tablet) 9 mg PO BEDTIME [facility] Last Admin: 07/30/24 20:24 Dose: 9 mg Metoprolol Succinate (Metoprolol Succinate Er 25 Mg Tab.Er.24h) 25 mg PO BEDTIME [facility]; Protocol Last Admin: 07/30/24 20:24 Dose: 25 mg Nicotine Polacrilex (Nicotine Polacrilex 2 Mg Gum) 4 mg BUCCAL Q2H PRN PRN Reason: Nicotine Cravings Pt Own (Trulicity 1. 5 Mg/ 0.5 Ml Injection ) 0.5 ml SUBCUT Sa@0900 [facility] Last Admin: 07/30/24 09:20 Dose: 0.5 ml Omeprazole (Omeprazole 20 Mg Capsule.) 20 mg PO DAILY@0630 [facility] Last Admin: 07/30/24 06:52 Dose: 20 mg Polyethylene Glycol (Polyethylene Glycol 3350 17 Gm Powd.Pack) 17 gm PO DAILY PRN PRN Reason: Constipation,severe Last Admin: 07/30/24 14:50 Dose: 17 gm Trazodone HCl (Trazodone Hcl 50 Mg Tablet) 50 mg PO BEDTIME MRX1 PRN PRN Reason: Insomnia Vitamin D (Cholecalciferol (Vitamin D3) 25 Mcg Tablet) 25 mcg PO DAILY [facility] Last Admin: 07/30/24 09:01 Dose: 25 mcg Zolpidem Tartrate (Zolpidem Tartrate 5 Mg Tablet) 5 mg PO BEDTIME PRN PRN Reason: Insomnia Last Admin: 07/29/24 21:05 Dose: 5 mg Allergies Allergies Allergy/AdvReac Type Severity Reaction Status Date / Time amoxicillin Allergy Unknown Verified 07/27/24 16:59 Assessment & Plan Assessment & Plan (1) PTSD (post-traumatic stress disorder): Status: Acute Code(s): F43.10 - Post-traumatic stress disorder, unspecified (2) Bipolar affective psychosis: Qualifiers: Active/Remission status: currently active Current bipolar episode type: depressed Current episode severity: unspecified Qualified Code(s): F31.30 - Bipolar disorder, current episode depressed, mild or moderate severity, unspecified Status: Acute Code(s): F31.9 - Bipolar disorder, unspecified Plan Admit, CV, 15 minute checks Valproate Level Collateral Contact Diagnostics as needed Continue current regime Discussed options with pt, chart reports Vu' guardianship is in place. Will search for this 07/31: Continue tx Reason for continued inpatient stay Substantial Risk for: rapid decompensation Time Spent With Patient Time: Total time managing care of this patient today ____ minutes.
[2024-07-31 07:58] LABS: Glucose, Whole Blood 133 mg/dL (60-115)
[2024-07-31 08:00] VITALS: BP 101/51; PULSE 81; RESP 18; TEMP 36.4; O2SAT 95
[2024-07-31] MEDS: Divalproex Sodium Sprinkles 125 MG CAP.DR.SPR 1000 MG PO ×2 (08:17→20:24)
[2024-07-31 20:00] VITALS: BP 128/72; PULSE 89; RESP 15; TEMP 36.9; O2SAT 94
[2024-07-31] MEDS: Metoprolol Succinate ER 25 MG TAB.ER.24H PO (20:24)
[2024-08-01] MEDS: [UNRECOGNIZED DRUG - REMARK] 120 EACH PO (07:31)
[2024-08-01 07:52] VITALS: BP 99/58; PULSE 85; TEMP 36.7; O2SAT 94
[2024-08-01 08:01] LABS: Glucose, Whole Blood 133 mg/dL (60-115)
[2024-08-01] MEDS: Divalproex Sodium Sprinkles 125 MG CAP.DR.SPR 1000 MG PO ×2 (08:43→20:51)
[2024-08-01 12:27] LABS: Glucose, Whole Blood 136 mg/dL (60-115)
--- NOTE | 2024-08-01 15:46 | HO.PSYCHPN ---
Subjective Subjective Date of Service: 08/01/24 Reason For Visit: PTSD Bipolar Disorder with Psychosis Healthcare Proxy: Yes Guardianship: No Medical Problems Affecting Mental Status: No Interim History: Pt reports tolerating Abilify. Discussed trial of DC of po Haldol with titration of Abilify and she agrees. Engaged in milieu, supportive of others and precise in reporting of symptoms of concern. Medication Compliance: Yes Side effects from medications: Yes Attending Groups: Yes Review of Systems Acute medical concerns: No Medical Review of Systems: unchanged Review of Systems Review of Systems tremor Mental Status Exam Mental Status Exam Patient Appearance: Appropriate Patient Orientation: Person, Place, Time and Situation Level of Consciousness: Alert Patient Behavior: Appropriate, Talkative and Cooperative Mood Description: Depressed and Anxious Affect Description: Flat Patient Cognition Impaired: No Ability to Follow Directions: Good Speech Pattern: Spontaneous Speech Memory Description: Episodic Impaired Hallucinations: Auditory Delusions: Present (mild) Thought Process: Rumination Thought Content: positive for Intact, positive for Circumstantial, positive for Perseveration and positive for Suicidal Ideation Judgement: Fair Diagnostics Vital Signs (24Hr): Vital Signs - 24 hr 07/31/24 20:00 08/01/24 07:52 Temperature 98.4 F 98.0 F Pulse Rate 89 85 Respiratory Rate 15 Blood Pressure 128/72 99/58 L Pulse Oximetry 94 94 Oxygen Delivery Method Room Air BMI result Body Mass Index 36.4 Labs 07/27/24 17:31 07/27/24 17:31 Labs: Laboratory Results - last 48 hr 07/31/24 08/01/24 08/01/24 07:42 07:57 12:22 POC Glucose 133 H 133 H 136 H Medications Medications Current Medications Acetaminophen (Acetaminophen 325 Mg Tablet) 650 mg PO Q6H PRN PRN Reason: Headache/Pain, Scale 1-10 Al Hydroxide/Mg Hydroxide (Magnesium Hydrox/Alum Hydrox 30 Ml Oral.Susp) 30 ml PO Q6H PRN PRN Reason: Heartburn/Nausea Last Admin: 07/30/24 16:44 Dose: 30 ml Apixaban (Apixaban 5 Mg Tablet) 5 mg PO BID [facility] Last Admin: 08/01/24 08:45 Dose: 5 mg Aripiprazole (Aripiprazole 5 Mg Tablet) 5 mg PO DAILY [facility] Last Admin: 08/01/24 08:44 Dose: 5 mg Atorvastatin Calcium (Atorvastatin Calcium 40 Mg Tablet) 40 mg PO BEDTIME [facility] Last Admin: 07/31/24 20:24 Dose: 40 mg Benztropine Mesylate (Benztropine Mesylate 1 Mg Tablet) 2 mg PO BEDTIME [facility] Last Admin: 07/31/24 20:23 Dose: 2 mg Divalproex Sodium (Divalproex Sodium Sprinkles 125 Mg ) 1,000 mg PO BID [facility] Last Admin: 08/01/24 08:43 Dose: 1,000 mg Furosemide (Furosemide 20 Mg Tablet) 20 mg PO DAILY [facility]; Protocol Last Admin: 08/01/24 08:44 Dose: 20 mg Haloperidol (Haloperidol 5 Mg Tablet) 5 mg PO BEDTIME [facility] Last Admin: 07/31/24 20:24 Dose: 5 mg Haloperidol Decanoate (Haloperidol Decanoate 50 Mg/Ml Vial) 100 mg IM Q30D [facility] Last Admin: 07/31/24 12:29 Dose: 100 mg Hydroxyzine HCl (Hydroxyzine Hcl 25 Mg Tablet) 25 mg PO Q6H PRN PRN Reason: mild anxiety Lorazepam (Lorazepam 1 Mg Tablet) 1 mg PO Q4H PRN PRN Reason: Anxiety Last Admin: 08/01/24 14:41 Dose: 1 mg Magnesium Hydroxide (Milk Of Magnesia 30 Ml Oral.Susp) 30 ml PO DAILY PRN PRN Reason: Constipation Last Admin: 07/30/24 11:08 Dose: 30 ml Magnesium Oxide (Magnesium Oxide 400 Mg Tablet) 400 mg PO DAILY [facility] Last Admin: 08/01/24 08:44 Dose: 400 mg Melatonin (Melatonin 3 Mg Tablet) 9 mg PO BEDTIME [facility] Last Admin: 07/31/24 20:24 Dose: 9 mg Metoprolol Succinate (Metoprolol Succinate Er 25 Mg Tab.Er.24h) 25 mg PO BEDTIME [facility]; Protocol Last Admin: 07/31/24 20:24 Dose: 25 mg Nicotine Polacrilex (Nicotine Polacrilex 2 Mg Gum) 4 mg BUCCAL Q2H PRN PRN Reason: Nicotine Cravings Pt Own (Trulicity 1. 5 Mg/ 0.5 Ml Injection ) 0.5 ml SUBCUT Sa@0900 [facility] Last Admin: 07/30/24 09:20 Dose: 0.5 ml Non-Form Med ([place] Thyroid 120mg Tab 120 Mg Tablet) 120 mg PO DAILY@0630 [facility] Last Admin: 08/01/24 07:31 Dose: 120 mg Omeprazole (Omeprazole 20 Mg Capsule.Dr) 20 mg PO DAILY@0630 [facility] Last Admin: 08/01/24 07:30 Dose: 20 mg Polyethylene Glycol (Polyethylene Glycol 3350 17 Gm Powd.Pack) 17 gm PO DAILY PRN PRN Reason: Constipation,severe Last Admin: 08/01/24 14:41 Dose: 17 gm Trazodone HCl (Trazodone Hcl 50 Mg Tablet) 50 mg PO BEDTIME MRX1 PRN PRN Reason: Insomnia Vitamin D (Cholecalciferol (Vitamin D3) 25 Mcg Tablet) 25 mcg PO DAILY [facility] Last Admin: 08/01/24 08:45 Dose: 25 mcg Zolpidem Tartrate (Zolpidem Tartrate 5 Mg Tablet) 5 mg PO BEDTIME PRN PRN Reason: Insomnia Last Admin: 07/31/24 20:30 Dose: 5 mg Allergies Allergies Allergy/AdvReac Type Severity Reaction Status Date / Time amoxicillin Allergy Unknown Verified 07/27/24 16:59 Assessment & Plan Assessment & Plan (1) PTSD (post-traumatic stress disorder): Status: Acute Code(s): F43.10 - Post-traumatic stress disorder, unspecified (2) Bipolar affective psychosis: Qualifiers: Active/Remission status: currently active Current bipolar episode type: depressed Current episode severity: unspecified Qualified Code(s): F31.30 - Bipolar disorder, current episode depressed, mild or moderate severity, unspecified Status: Acute Code(s): F31.9 - Bipolar disorder, unspecified Plan Admit, CV, 15 minute checks Valproate Level Collateral Contact Diagnostics as needed Continue current regime Discussed options with pt, chart reports Horace' guardianship is in place. Will search for this 08/01: DC evening Haldol Titrate Abilify as tolerated and as symptoms occur Reason for continued inpatient stay Substantial Risk for: rapid decompensation Time Spent With Patient Time: Total time managing care of this patient today ____ minutes.
[2024-08-01 20:00] VITALS: BP 132/63; PULSE 84; RESP 16; TEMP 36.6; O2SAT 93
[2024-08-01 20:50] VITALS: BP 132/63; PULSE 84
[2024-08-01] MEDS: Metoprolol Succinate ER 25 MG TAB.ER.24H PO (20:50)
[2024-08-02] MEDS: [UNRECOGNIZED DRUG - REMARK] 120 EACH PO (05:43)
[2024-08-02 07:43] VITALS: BP 144/60; PULSE 89; RESP 18; TEMP 36.9; O2SAT 94
[2024-08-02 07:43] LABS: Glucose, Whole Blood 134 mg/dL (60-115)
[2024-08-02] MEDS: Divalproex Sodium Sprinkles 125 MG CAP.DR.SPR 1000 MG PO ×2 (08:04→20:34)
--- NOTE | 2024-08-02 11:01 | P.PNPSI_ITS ---
Subjective Subjective Date of Service: 08/02/24 Reason For Visit: PTSD Bipolar Disorder with Psychosis Subjective Notes: Conditional Voluntary Healthcare Proxy: Yes Guardianship: No Medical Problems Affecting Mental Status: No Interim History: Discussed tremor (Cheryl COLEMAN in process) and effects upon her mental health from tremor. Tolerating abilify trial. Denies HI,AH,VH. SI+-discouraged with tremor. Medication Compliance: Yes Side effects from medications: Yes (tremor) Attending Groups: Yes Review of Systems Acute medical concerns: No Medical Review of Systems: unchanged Review of Systems Review of Systems Yes all other systems are reviewed and are negative Mental Status Exam Mental Status Exam Patient Appearance: Appropriate Patient Orientation: Person, Place, Time and Situation Level of Consciousness: Alert Patient Behavior: Appropriate, Talkative and Cooperative Mood Description: Depressed and Anxious Affect Description: Flat Patient Cognition Impaired: No Ability to Follow Directions: Good Speech Pattern: Spontaneous Speech Memory Description: Episodic Impaired Hallucinations: Auditory Delusions: Present (mild) Thought Process: Rumination Thought Content: positive for Intact, positive for Circumstantial, positive for Perseveration and positive for Suicidal Ideation Judgement: Fair Diagnostics Vital Signs (24Hr): Vital Signs - 24 hr 08/01/24 20:00 08/01/24 20:50 08/02/24 07:43 Temperature 98 F 98.5 F Pulse Rate 84 84 89 Respiratory Rate 16 18 Blood Pressure 132/63 132/63 144/60 H Pulse Oximetry 93 94 Oxygen Delivery Method Room Air Room Air BMI result Body Mass Index 36.4 Labs 07/27/24 17:31 07/27/24 17:31 Labs: Laboratory Results - last 48 hr 08/01/24 08/01/24 08/02/24 07:57 12:22 07:28 POC Glucose 133 H 136 H 134 H Medications Medications Current Medications Acetaminophen (Acetaminophen 325 Mg Tablet) 650 mg PO Q6H PRN PRN Reason: Headache/Pain, Scale 1-10 Al Hydroxide/Mg Hydroxide (Magnesium Hydrox/Alum Hydrox 30 Ml Oral.Susp) 30 ml PO Q6H PRN PRN Reason: Heartburn/Nausea Last Admin: 07/30/24 16:44 Dose: 30 ml Apixaban (Apixaban 5 Mg Tablet) 5 mg PO BID [facility] Last Admin: 08/02/24 08:05 Dose: 5 mg Aripiprazole (Aripiprazole 5 Mg Tablet) 5 mg PO DAILY [facility] Last Admin: 08/02/24 08:05 Dose: 5 mg Atorvastatin Calcium (Atorvastatin Calcium 40 Mg Tablet) 40 mg PO BEDTIME [facility] Last Admin: 08/01/24 20:52 Dose: 40 mg Benztropine Mesylate (Benztropine Mesylate 1 Mg Tablet) 2 mg PO BEDTIME [facility] Last Admin: 08/01/24 20:51 Dose: 2 mg Divalproex Sodium (Divalproex Sodium Sprinkles 125 Mg Cap.DrZiyadSpr) 1,000 mg PO BID [facility] Last Admin: 08/02/24 08:04 Dose: 1,000 mg Furosemide (Furosemide 20 Mg Tablet) 20 mg PO DAILY [facility]; Protocol Last Admin: 08/02/24 08:05 Dose: 20 mg Haloperidol Decanoate (Haloperidol Decanoate 50 Mg/Ml Vial) 100 mg IM Q30D [facility] Last Admin: 07/31/24 12:29 Dose: 100 mg Hydroxyzine HCl (Hydroxyzine Hcl 25 Mg Tablet) 25 mg PO Q6H PRN PRN Reason: mild anxiety Lorazepam (Lorazepam 1 Mg Tablet) 1 mg PO Q4H PRN PRN Reason: Anxiety Last Admin: 08/01/24 20:50 Dose: 1 mg Magnesium Hydroxide (Milk Of Magnesia 30 Ml Oral.Susp) 30 ml PO DAILY PRN PRN Reason: Constipation Last Admin: 07/30/24 11:08 Dose: 30 ml Magnesium Oxide (Magnesium Oxide 400 Mg Tablet) 400 mg PO DAILY [facility] Last Admin: 08/02/24 08:05 Dose: 400 mg Melatonin (Melatonin 3 Mg Tablet) 9 mg PO BEDTIME [facility] Last Admin: 08/01/24 20:51 Dose: 9 mg Metoprolol Succinate (Metoprolol Succinate Er 25 Mg Tab.Er.24h) 25 mg PO BEDTIME [facility]; Protocol Last Admin: 08/01/24 20:50 Dose: 25 mg Nicotine Polacrilex (Nicotine Polacrilex 2 Mg Gum) 4 mg BUCCAL Q2H PRN PRN Reason: Nicotine Cravings Pt Own (Trulicity 1. 5 Mg/ 0.5 Ml Injection ) 0.5 ml SUBCUT Sa@0900 [facility] Last Admin: 07/30/24 09:20 Dose: 0.5 ml Non-Form Med ([place] Thyroid 120mg Tab 120 Mg Tablet) 120 mg PO DAILY@0630 [facility] Last Admin: 08/02/24 05:43 Dose: 120 mg Omeprazole (Omeprazole 20 Mg Capsule.Dr) 20 mg PO DAILY@0630 [facility] Last Admin: 08/02/24 05:43 Dose: 20 mg Polyethylene Glycol (Polyethylene Glycol 3350 17 Gm Powd.Pack) 17 gm PO DAILY PRN PRN Reason: Constipation,severe Last Admin: 08/01/24 14:41 Dose: 17 gm Trazodone HCl (Trazodone Hcl 50 Mg Tablet) 50 mg PO BEDTIME MRX1 PRN PRN Reason: Insomnia Vitamin D (Cholecalciferol (Vitamin D3) 25 Mcg Tablet) 25 mcg PO DAILY [facility] Last Admin: 08/02/24 08:05 Dose: 25 mcg Zolpidem Tartrate (Zolpidem Tartrate 5 Mg Tablet) 5 mg PO BEDTIME PRN PRN Reason: Insomnia Last Admin: 07/31/24 20:30 Dose: 5 mg Allergies Allergies Allergy/AdvReac Type Severity Reaction Status Date / Time amoxicillin Allergy Unknown Verified 07/27/24 16:59 Assessment & Plan Assessment & Plan (1) PTSD (post-traumatic stress disorder): Status: Acute Code(s): F43.10 - Post-traumatic stress disorder, unspecified (2) Bipolar affective psychosis: Qualifiers: Active/Remission status: currently active Current bipolar episode type: depressed Current episode severity: unspecified Qualified Code(s): F31.30 - Bipolar disorder, current episode depressed, mild or moderate severity, unspecified Status: Acute Code(s): F31.9 - Bipolar disorder, unspecified Plan Admit, CV, 15 minute checks Valproate Level Collateral Contact Diagnostics as needed Continue current regime Discussed options with pt, chart reports Horace' guardianship is in place. Will search for this 08/01: DC evening Haldol Titrate Abilify as tolerated and as symptoms occur 08/02: Continue tx DC PO Haldol Reason for continued inpatient stay Substantial Risk for: rapid decompensation Time Spent With Patient Time: Total time managing care of this patient today ____ minutes.
[2024-08-02 20:00] VITALS: BP 120/60; PULSE 93; RESP 18; TEMP 36.4; O2SAT 94
[2024-08-02 20:34] VITALS: BP 120/60; PULSE 93
[2024-08-02] MEDS: Metoprolol Succinate ER 25 MG TAB.ER.24H PO (20:34)
[2024-08-03] MEDS: [UNRECOGNIZED DRUG - REMARK] 120 EACH PO (06:16)
[2024-08-03 07:41] LABS: Glucose, Whole Blood 118 mg/dL (60-115)
[2024-08-03 08:10] VITALS: BP 110/58; PULSE 92; TEMP 36.9; O2SAT 91
[2024-08-03] MEDS: Divalproex Sodium Sprinkles 125 MG CAP.DR.SPR 1000 MG PO ×2 (08:30→20:55)
--- NOTE | 2024-08-03 10:18 | HO.PSYCHPN ---
Subjective Subjective Date of Service: 08/03/24 Reason For Visit: PTSD Bipolar Disorder with Psychosis Subjective Notes: Conditional Voluntary Healthcare Proxy: Yes Guardianship: No Medical Problems Affecting Mental Status: No Interim History: [place] not covered by pts insurance. PA initiated for [place]. Pt asks for Haldol prn in case I get a symptom . Small prn dose ordered. Focused on tremor and insurance approval of med today which was discussed Medication Compliance: Yes Side effects from medications: No Attending Groups: Yes Review of Systems Medical Review of Systems: unchanged Review of Systems Review of Systems Yes all other systems are reviewed and are negative Mental Status Exam Mental Status Exam Patient Appearance: Appropriate Patient Orientation: Person, Place, Time and Situation Level of Consciousness: Alert Patient Behavior: Appropriate, Talkative and Cooperative Mood Description: Depressed and Anxious Affect Description: Flat Patient Cognition Impaired: No Ability to Follow Directions: Good Speech Pattern: Spontaneous Speech Memory Description: Episodic Impaired Hallucinations: Auditory Delusions: Present (mild) Thought Process: Rumination Thought Content: positive for Intact, positive for Circumstantial, positive for Perseveration and positive for Suicidal Ideation Judgement: Fair Diagnostics Vital Signs (24Hr): Vital Signs - 24 hr 08/02/24 20:00 08/02/24 20:34 08/03/24 08:10 Temperature 97.6 F 98.5 F Pulse Rate 93 93 92 Respiratory Rate 18 Blood Pressure 120/60 120/60 110/58 L Pulse Oximetry 94 91 L Oxygen Delivery Method Room Air Room Air BMI result Body Mass Index 36.4 Labs 07/27/24 17:31 07/27/24 17:31 Labs: Laboratory Results - last 48 hr 08/01/24 08/02/24 08/03/24 12:22 07:28 07:36 POC Glucose 136 H 134 H 118 H Medications Medications Current Medications Acetaminophen (Acetaminophen 325 Mg Tablet) 650 mg PO Q6H PRN PRN Reason: Headache/Pain, Scale 1-10 Last Admin: 08/02/24 20:33 Dose: 650 mg Al Hydroxide/Mg Hydroxide (Magnesium Hydrox/Alum Hydrox 30 Ml Oral.Susp) 30 ml PO Q6H PRN PRN Reason: Heartburn/Nausea Last Admin: 07/30/24 16:44 Dose: 30 ml Apixaban (Apixaban 5 Mg Tablet) 5 mg PO BID [facility] Last Admin: 08/03/24 08:29 Dose: 5 mg Aripiprazole (Aripiprazole 5 Mg Tablet) 5 mg PO DAILY [facility] Last Admin: 08/03/24 08:29 Dose: 5 mg Atorvastatin Calcium (Atorvastatin Calcium 40 Mg Tablet) 40 mg PO BEDTIME [facility] Last Admin: 08/02/24 20:34 Dose: 40 mg Benztropine Mesylate (Benztropine Mesylate 1 Mg Tablet) 2 mg PO BEDTIME [facility] Last Admin: 08/02/24 20:33 Dose: 2 mg Divalproex Sodium (Divalproex Sodium Sprinkles 125 Mg Cap.Dr.Spr) 1,000 mg PO BID [facility] Last Admin: 08/03/24 08:30 Dose: 1,000 mg Furosemide (Furosemide 20 Mg Tablet) 20 mg PO DAILY [facility]; Protocol Last Admin: 08/03/24 08:29 Dose: 20 mg Haloperidol Decanoate (Haloperidol Decanoate 50 Mg/Ml Vial) 100 mg IM Q30D [facility] Last Admin: 07/31/24 12:29 Dose: 100 mg Hydroxyzine HCl (Hydroxyzine Hcl 25 Mg Tablet) 25 mg PO Q6H PRN PRN Reason: mild anxiety Lorazepam (Lorazepam 1 Mg Tablet) 1 mg PO Q4H PRN PRN Reason: Anxiety Last Admin: 08/02/24 14:19 Dose: 1 mg Magnesium Hydroxide (Milk Of Magnesia 30 Ml Oral.Susp) 30 ml PO DAILY PRN PRN Reason: Constipation Last Admin: 07/30/24 11:08 Dose: 30 ml Magnesium Oxide (Magnesium Oxide 400 Mg Tablet) 400 mg PO DAILY [facility] Last Admin: 08/03/24 08:29 Dose: 400 mg Melatonin (Melatonin 3 Mg Tablet) 9 mg PO BEDTIME [facility] Last Admin: 08/02/24 20:34 Dose: 9 mg Metoprolol Succinate (Metoprolol Succinate Er 25 Mg Tab.Er.24h) 25 mg PO BEDTIME [facility]; Protocol Last Admin: 08/02/24 20:34 Dose: 25 mg Nicotine Polacrilex (Nicotine Polacrilex 2 Mg Gum) 4 mg BUCCAL Q2H PRN PRN Reason: Nicotine Cravings Pt Own (Trulicity 1. 5 Mg/ 0.5 Ml Injection ) 0.5 ml SUBCUT Sa@0900 [facility] Last Admin: 07/30/24 09:20 Dose: 0.5 ml Non-Form Med ([place] Thyroid 120mg Tab 120 Mg Tablet) 120 mg PO DAILY@629 [facility] Last Admin: 08/03/24 06:16 Dose: 120 mg Omeprazole (Omeprazole 20 Mg Capsule.Dr) 20 mg PO DAILY@629 [facility] Last Admin: 08/03/24 06:16 Dose: 20 mg Polyethylene Glycol (Polyethylene Glycol 3350 17 Gm Powd.Pack) 17 gm PO DAILY PRN PRN Reason: Constipation,severe Last Admin: 08/02/24 12:57 Dose: 17 gm Trazodone HCl (Trazodone Hcl 50 Mg Tablet) 50 mg PO BEDTIME MRX1 PRN PRN Reason: Insomnia Vitamin D (Cholecalciferol (Vitamin D3) 25 Mcg Tablet) 25 mcg PO DAILY [facility] Last Admin: 08/03/24 08:29 Dose: 25 mcg Zolpidem Tartrate (Zolpidem Tartrate 5 Mg Tablet) 5 mg PO BEDTIME PRN PRN Reason: Insomnia Last Admin: 07/31/24 20:30 Dose: 5 mg Allergies Allergies Allergy/AdvReac Type Severity Reaction Status Date / Time amoxicillin Allergy Unknown Verified 07/27/24 16:59 Assessment & Plan Assessment & Plan (1) PTSD (post-traumatic stress disorder): Status: Acute Code(s): F43.10 - Post-traumatic stress disorder, unspecified (2) Bipolar affective psychosis: Qualifiers: Active/Remission status: currently active Current bipolar episode type: depressed Current episode severity: unspecified Qualified Code(s): F31.30 - Bipolar disorder, current episode depressed, mild or moderate severity, unspecified Status: Acute Code(s): F31.9 - Bipolar disorder, unspecified Plan Admit, CV, 15 minute checks Valproate Level Collateral Contact Diagnostics as needed Continue current regime Discussed options with pt, chart reports Horace' guardianship is in place. Will search for this 08/01: DC evening Haldol Titrate Abilify as tolerated and as symptoms occur 08/03: Continue tx Haldol prn per pt request Reason for continued inpatient stay Substantial Risk for: rapid decompensation Time Spent With Patient Time: Total time managing care of this patient today ____ minutes.
[2024-08-03 19:46] VITALS: BP 124/60; PULSE 91; TEMP 36.8; O2SAT 90
[2024-08-03] MEDS: Milk of Magnesia 30 ML ORAL.SUSP PO (20:55)
[2024-08-03 20:56] VITALS: BP 124/60; PULSE 91
[2024-08-03] MEDS: Metoprolol Succinate ER 25 MG TAB.ER.24H PO (20:56)
[2024-08-03 21:01] LABS: Glucose, Whole Blood 135 mg/dL (60-115)
[2024-08-04] MEDS: [UNRECOGNIZED DRUG - REMARK] 120 EACH PO (06:46)
[2024-08-04 07:00] VITALS: BMI 38.3
[2024-08-04 07:51] LABS: Glucose, Whole Blood 86 mg/dL (60-115)
[2024-08-04 08:00] VITALS: BP 107/54; PULSE 91; TEMP 37.2; O2SAT 93
--- NOTE | 2024-08-04 08:55 | HO.PSYCHPN ---
Subjective Subjective Date of Service: 08/04/24 Reason For Visit: PTSD Bipolar Disorder with Psychosis Subjective Notes: Conditional Voluntary Medical Problems Affecting Mental Status: No Interim History: Patient states that she is ?a little better? today. She is looking forward to start Ingrezza, once approved by her health plan, for her bilateral hand tremors which started when she was on Haldol 4-5 months ago. She currently denies anxiety/depression/SI/HI/AH/VH. Medication Compliance: Yes Side effects from medications: No Review of Systems Acute medical concerns: Yes Musc: Bilat hand tremors Mental Status Exam Mental Status Exam Narrative: Appearance: Casually dressed, adequate hygiene Behavior: Calm and cooperative throughout the interview. Eye contact is appropriate, and there are no signs of psychomotor agitation or retardation Speech: Normal volume and prosody Thought process: logical and goal-directed Thought content: Future oriented no self-harming thoughts Mood: A little better Affect: Constricted SI:denies HI:denies VH/AH:none Delusions: None Insight/judgment: Fair insight and judgment Memory/cog: Alert, oriented x 4. grossly intact to conversational testing Diagnostics Vital Signs (24Hr): Vital Signs - 24 hr 08/03/24 19:46 08/03/24 20:56 Temperature 98.3 F Pulse Rate 91 91 Blood Pressure 124/60 124/60 Pulse Oximetry 90 L Oxygen Delivery Method Room Air BMI result Body Mass Index 36.4 Labs 07/27/24 17:31 07/27/24 17:31 Labs: Laboratory Results - last 48 hr 08/03/24 08/03/24 08/04/24 07:36 20:54 07:46 POC Glucose 118 H 135 H 86 Medications Medications Current Medications Acetaminophen (Acetaminophen 325 Mg Tablet) 650 mg PO Q6H PRN PRN Reason: Headache/Pain, Scale 1-10 Last Admin: 08/02/24 20:33 Dose: 650 mg Al Hydroxide/Mg Hydroxide (Magnesium Hydrox/Alum Hydrox 30 Ml Oral.Susp) 30 ml PO Q6H PRN PRN Reason: Heartburn/Nausea Last Admin: 07/30/24 16:44 Dose: 30 ml Apixaban (Apixaban 5 Mg Tablet) 5 mg PO BID [facility] Last Admin: 08/03/24 20:56 Dose: 5 mg Aripiprazole (Aripiprazole 5 Mg Tablet) 5 mg PO DAILY [facility] Last Admin: 08/03/24 08:29 Dose: 5 mg Atorvastatin Calcium (Atorvastatin Calcium 40 Mg Tablet) 40 mg PO BEDTIME [facility] Last Admin: 08/03/24 20:56 Dose: 40 mg Benztropine Mesylate (Benztropine Mesylate 1 Mg Tablet) 2 mg PO BEDTIME [facility] Last Admin: 08/03/24 20:56 Dose: 2 mg Divalproex Sodium (Divalproex Sodium Sprinkles 125 Mg Cap.DrZiyadSpr) 1,000 mg PO BID [facility] Last Admin: 08/03/24 20:55 Dose: 1,000 mg Furosemide (Furosemide 20 Mg Tablet) 20 mg PO DAILY [facility]; Protocol Last Admin: 08/03/24 08:29 Dose: 20 mg Haloperidol Decanoate (Haloperidol Decanoate 50 Mg/Ml Vial) 100 mg IM Q30D [facility] Last Admin: 07/31/24 12:29 Dose: 100 mg Hydroxyzine HCl (Hydroxyzine Hcl 25 Mg Tablet) 25 mg PO Q6H PRN PRN Reason: mild anxiety Lorazepam (Lorazepam 1 Mg Tablet) 1 mg PO Q4H PRN PRN Reason: Anxiety Last Admin: 08/02/24 14:19 Dose: 1 mg Magnesium Hydroxide (Milk Of Magnesia 30 Ml Oral.Susp) 30 ml PO DAILY PRN PRN Reason: Constipation Last Admin: 08/03/24 20:55 Dose: 30 ml Magnesium Oxide (Magnesium Oxide 400 Mg Tablet) 400 mg PO DAILY [facility] Last Admin: 08/03/24 08:29 Dose: 400 mg Melatonin (Melatonin 3 Mg Tablet) 9 mg PO BEDTIME [facility] Last Admin: 08/03/24 20:55 Dose: 9 mg Metoprolol Succinate (Metoprolol Succinate Er 25 Mg Tab.Er.24h) 25 mg PO BEDTIME [facility]; Protocol Last Admin: 08/03/24 20:56 Dose: 25 mg Nicotine Polacrilex (Nicotine Polacrilex 2 Mg Gum) 4 mg BUCCAL Q2H PRN PRN Reason: Nicotine Cravings Pt Own (Trulicity 1. 5 Mg/ 0.5 Ml Injection ) 0.5 ml SUBCUT Sa@0900 [facility] Last Admin: 07/30/24 09:20 Dose: 0.5 ml Non-Form Med ([place] Thyroid 120mg Tab 120 Mg Tablet) 120 mg PO DAILY@0630 [facility] Last Admin: 08/04/24 06:46 Dose: 120 mg Omeprazole (Omeprazole 20 Mg Capsule.Dr) 20 mg PO DAILY@0630 [facility] Last Admin: 08/04/24 06:46 Dose: 20 mg Ondansetron HCl (Ondansetron Odt 4 Mg Tab.Rapdis) 4 mg TRANSLINGU Q8H PRN PRN Reason: Nausea and Vomiting Last Admin: 08/03/24 11:57 Dose: 4 mg Polyethylene Glycol (Polyethylene Glycol 3350 17 Gm Powd.Pack) 17 gm PO DAILY PRN PRN Reason: Constipation,severe Last Admin: 08/02/24 12:57 Dose: 17 gm Trazodone HCl (Trazodone Hcl 50 Mg Tablet) 50 mg PO BEDTIME MRX1 PRN PRN Reason: Insomnia Vitamin D (Cholecalciferol (Vitamin D3) 25 Mcg Tablet) 25 mcg PO DAILY [facility] Last Admin: 08/03/24 08:29 Dose: 25 mcg Zolpidem Tartrate (Zolpidem Tartrate 5 Mg Tablet) 5 mg PO BEDTIME PRN PRN Reason: Insomnia Last Admin: 08/03/24 21:03 Dose: 5 mg Allergies Allergies Allergy/AdvReac Type Severity Reaction Status Date / Time amoxicillin Allergy Unknown Verified 07/27/24 16:59 Assessment & Plan Assessment & Plan (1) PTSD (post-traumatic stress disorder): Status: Acute Code(s): F43.10 - Post-traumatic stress disorder, unspecified (2) Bipolar affective psychosis: Qualifiers: Active/Remission status: currently active Current bipolar episode type: depressed Current episode severity: unspecified Qualified Code(s): F31.30 - Bipolar disorder, current episode depressed, mild or moderate severity, unspecified Status: Acute Code(s): F31.9 - Bipolar disorder, unspecified Plan Admit, CV, 15 minute checks Valproate Level Collateral Contact Diagnostics as needed Continue current regime Discussed options with pt, chart reports Horace' guardianship is in place. Will search for this 08/01: DC evening Haldol Titrate Abilify as tolerated and as symptoms occur 08/03: Continue tx Haldol prn per pt request 08/04: Patient states that she is ?a little better? today. She is looking forward to start Ingrezza, once approved by her health plan, for her bilateral hand tremors which started when she was on Haldol 4-5 months ago. She currently denies anxiety/depression/SI/HI/AH/VH. Continue current trearment regimen. Patient educated on: therapeutic strategies Reason for continued inpatient stay Substantial Risk for: rapid decompensation Time Spent With Patient Time: Total time managing care of this patient today ____ minutes.
[2024-08-04] MEDS: Divalproex Sodium Sprinkles 125 MG CAP.DR.SPR 1000 MG PO ×2 (09:01→21:01)
[2024-08-04 12:50] VITALS: BP 110/60
[2024-08-04 20:00] VITALS: BP 113/59; PULSE 91; TEMP 37; O2SAT 94
[2024-08-04 21:00] VITALS: BP 113/59; PULSE 91
[2024-08-04] MEDS: Metoprolol Succinate ER 25 MG TAB.ER.24H PO (21:00)
[2024-08-05] MEDS: [UNRECOGNIZED DRUG - REMARK] 120 EACH PO (05:53)
[2024-08-05 07:49] LABS: Glucose, Whole Blood 138 mg/dL (60-115)
[2024-08-05 08:00] VITALS: BP 102/54; PULSE 94; TEMP 36.4; O2SAT 98
[2024-08-05] MEDS: Divalproex Sodium Sprinkles 125 MG CAP.DR.SPR 1000 MG PO ×2 (08:48→21:42)
--- NOTE | 2024-08-05 10:54 | HO.PSYCHPN ---
Subjective Subjective Date of Service: 08/05/24 Reason For Visit: PTSD Bipolar Disorder with Psychosis Subjective Notes: Conditional Voluntary Healthcare Proxy: Yes Guardianship: No Medical Problems Affecting Mental Status: Yes Interim History: Denies SI,HI,AH, VH PA filed 08/03 for [employer] for TD mgt, refiled today. Discussed with pt. Tolerating Abilify, attending groups Medication Compliance: Yes Side effects from medications: Yes (TD) Attending Groups: Yes Review of Systems Acute medical concerns: No Review of Systems Review of Systems Denies Mental Status Exam Mental Status Exam Patient Appearance: Appropriate Patient Orientation: Person, Place, Time and Situation Level of Consciousness: Alert Patient Behavior: Appropriate, Talkative and Cooperative Mood Description: Depressed and Anxious Affect Description: Flat Patient Cognition Impaired: No Ability to Follow Directions: Good Speech Pattern: Spontaneous Speech Memory Description: Episodic Impaired Hallucinations: Auditory Delusions: Present (mild) Thought Process: Rumination Thought Content: positive for Intact, positive for Circumstantial and positive for Perseveration Judgement: Fair Diagnostics Vital Signs (24Hr): Vital Signs - 24 hr 08/04/24 12:50 08/04/24 12:50 08/04/24 20:00 Temperature 98.6 F Pulse Rate 91 Blood Pressure 110/60 110/60 113/59 L Pulse Oximetry 94 Oxygen Delivery Method Room Air 08/04/24 21:00 08/05/24 08:00 Temperature 97.5 F Pulse Rate 91 94 Blood Pressure 113/59 L 102/54 L Pulse Oximetry 98 Oxygen Delivery Method Room Air BMI result Body Mass Index 38.3 Labs 07/27/24 17:31 07/27/24 17:31 Labs: Laboratory Results - last 48 hr 08/03/24 08/04/24 08/05/24 20:54 07:46 07:44 POC Glucose 135 H 86 138 H Medications Medications Current Medications Acetaminophen (Acetaminophen 325 Mg Tablet) 650 mg PO Q6H PRN PRN Reason: Headache/Pain, Scale 1-10 Last Admin: 08/02/24 20:33 Dose: 650 mg Al Hydroxide/Mg Hydroxide (Magnesium Hydrox/Alum Hydrox 30 Ml Oral.Susp) 30 ml PO Q6H PRN PRN Reason: Heartburn/Nausea Last Admin: 07/30/24 16:44 Dose: 30 ml Apixaban (Apixaban 5 Mg Tablet) 5 mg PO BID [facility] Last Admin: 08/05/24 08:52 Dose: 5 mg Aripiprazole (Aripiprazole 5 Mg Tablet) 5 mg PO DAILY [facility] Last Admin: 08/05/24 08:53 Dose: 5 mg Atorvastatin Calcium (Atorvastatin Calcium 40 Mg Tablet) 40 mg PO BEDTIME [facility] Last Admin: 08/04/24 21:01 Dose: 40 mg Benztropine Mesylate (Benztropine Mesylate 1 Mg Tablet) 2 mg PO BEDTIME [facility] Last Admin: 08/04/24 21:01 Dose: 2 mg Divalproex Sodium (Divalproex Sodium Sprinkles 125 Mg Cap.) 1,000 mg PO BID [facility] Last Admin: 08/05/24 08:48 Dose: 1,000 mg Furosemide (Furosemide 20 Mg Tablet) 20 mg PO DAILY [facility]; Protocol Last Admin: 08/04/24 12:50 Dose: 20 mg Haloperidol Decanoate (Haloperidol Decanoate 50 Mg/Ml Vial) 100 mg IM Q30D [facility] Last Admin: 07/31/24 12:29 Dose: 100 mg Hydroxyzine HCl (Hydroxyzine Hcl 25 Mg Tablet) 25 mg PO Q6H PRN PRN Reason: mild anxiety Lorazepam (Lorazepam 1 Mg Tablet) 1 mg PO Q4H PRN PRN Reason: Anxiety Last Admin: 08/04/24 13:45 Dose: 1 mg Magnesium Hydroxide (Milk Of Magnesia 30 Ml Oral.Susp) 30 ml PO DAILY PRN PRN Reason: Constipation Last Admin: 08/03/24 20:55 Dose: 30 ml Magnesium Oxide (Magnesium Oxide 400 Mg Tablet) 400 mg PO DAILY [facility] Last Admin: 08/05/24 08:51 Dose: 400 mg Melatonin (Melatonin 3 Mg Tablet) 9 mg PO BEDTIME [facility] Last Admin: 08/04/24 21:01 Dose: 9 mg Metoprolol Succinate (Metoprolol Succinate Er 25 Mg Tab.Er.24h) 25 mg PO BEDTIME [facility]; Protocol Last Admin: 08/04/24 21:00 Dose: 25 mg Nicotine Polacrilex (Nicotine Polacrilex 2 Mg Gum) 4 mg BUCCAL Q2H PRN PRN Reason: Nicotine Cravings Pt Own (Trulicity 1. 5 Mg/ 0.5 Ml Injection ) 0.5 ml SUBCUT Sa@0900 [facility] Last Admin: 07/30/24 09:20 Dose: 0.5 ml Non-Form Med ([place] Thyroid 120mg Tab 120 Mg Tablet) 120 mg PO DAILY@629 [facility] Last Admin: 08/05/24 05:53 Dose: 120 mg Omeprazole (Omeprazole 20 Mg Capsule.Dr) 20 mg PO DAILY@629 [facility] Last Admin: 08/05/24 05:53 Dose: 20 mg Ondansetron HCl (Ondansetron Odt 4 Mg Tab.Rapdis) 4 mg TRANSLINGU Q8H PRN PRN Reason: Nausea and Vomiting Last Admin: 08/03/24 11:57 Dose: 4 mg Polyethylene Glycol (Polyethylene Glycol 3350 17 Gm Powd.Pack) 17 gm PO DAILY PRN PRN Reason: Constipation,severe Last Admin: 08/04/24 09:32 Dose: 17 gm Trazodone HCl (Trazodone Hcl 50 Mg Tablet) 50 mg PO BEDTIME MRX1 PRN PRN Reason: Insomnia Vitamin D (Cholecalciferol (Vitamin D3) 25 Mcg Tablet) 25 mcg PO DAILY [facility] Last Admin: 08/05/24 08:51 Dose: 25 mcg Zolpidem Tartrate (Zolpidem Tartrate 5 Mg Tablet) 5 mg PO BEDTIME PRN PRN Reason: Insomnia Last Admin: 08/04/24 21:01 Dose: 5 mg Allergies Allergies Allergy/AdvReac Type Severity Reaction Status Date / Time amoxicillin Allergy Unknown Verified 07/27/24 16:59 Assessment & Plan Assessment & Plan (1) PTSD (post-traumatic stress disorder): Status: Acute Code(s): F43.10 - Post-traumatic stress disorder, unspecified (2) Bipolar affective psychosis: Qualifiers: Active/Remission status: currently active Current bipolar episode type: depressed Current episode severity: unspecified Qualified Code(s): F31.30 - Bipolar disorder, current episode depressed, mild or moderate severity, unspecified Status: Acute Code(s): F31.9 - Bipolar disorder, unspecified Plan Admit, CV, 15 minute checks Valproate Level Collateral Contact Diagnostics as needed Continue current regime Discussed options with pt, chart reports Horace' guardianship is in place. Will search for this 08/01: DC evening Haldol Titrate Abilify as tolerated and as symptoms occur 08/03: Continue tx Haldol prn per pt request 08/04: Patient states that she is ?a little better? today. She is looking forward to start Ingrezza, once approved by her health plan, for her bilateral hand tremors which started when she was on Haldol 4-5 months ago. She currently denies anxiety/depression/SI/HI/AH/VH. Continue current trearment regimen. 08/05: Continue tx Reason for continued inpatient stay Substantial Risk for: rapid decompensation Time Spent With Patient Time: Total time managing care of this patient today ____ minutes.
[2024-08-05 12:43] VITALS: BP 126/57
[2024-08-05 20:00] VITALS: BP 129/57; PULSE 92; RESP 16; TEMP 37.1; O2SAT 93
[2024-08-05 21:41] VITALS: BP 141/65; PULSE 99
[2024-08-05] MEDS: Metoprolol Succinate ER 25 MG TAB.ER.24H PO (21:41)
[2024-08-06] MEDS: [UNRECOGNIZED DRUG - REMARK] 120 EACH PO (07:17)
[2024-08-06 08:00] LABS: Glucose, Whole Blood 129 mg/dL (60-115)
[2024-08-06 08:41] VITALS: BP 122/56; PULSE 92; RESP 18; TEMP 36.4; O2SAT 91
[2024-08-06] MEDS: Divalproex Sodium Sprinkles 125 MG CAP.DR.SPR 1000 MG PO ×2 (08:52→20:46)
[2024-08-06] MEDS: TRULICITY 1.5 MG/0.5 ML 0.5 EACH SUBCUT (09:19)
--- NOTE | 2024-08-06 17:22 | P.PNPSI_ITS ---
Subjective Subjective Date of Service: 08/06/24 Reason For Visit: PTSD Bipolar Disorder with Psychosis Interim History: Patient seen. Reports she has been improving other than the tremors and TD's. She is hopeful that [employer] will be approved. Denies SI,HI,AH, VH Tolerating Abilify, attending groups Review of Systems Review of Systems Denies Yes all other systems are reviewed and are negative Constitutional: Reports as per HPI Mental Status Exam Mental Status Exam Narrative: Appearance: Casually dressed, adequate hygiene Behavior: Calm and cooperative throughout the interview. Eye contact is appropriate, and there are no signs of psychomotor agitation or retardation Speech: Normal volume and prosody Thought process: logical and goal-directed Thought content: Future oriented no self-harming thoughts Mood: A little better Affect: Constricted SI:denies HI:denies VH/AH:none Delusions: None Insight/judgment: Fair insight and judgment Memory/cog: Alert, oriented x 4. grossly intact to conversational testing Patient Appearance: Appropriate Patient Orientation: Person, Place, Time and Situation Level of Consciousness: Alert Patient Behavior: Appropriate, Talkative and Cooperative Mood Description: Depressed and Anxious Affect Description: Flat Patient Cognition Impaired: No Ability to Follow Directions: Good Speech Pattern: Spontaneous Speech Memory Description: Episodic Impaired Diagnostics Vital Signs (24Hr): Vital Signs - 24 hr 08/05/24 20:00 08/05/24 21:41 08/06/24 08:41 Temperature 98.8 F 97.5 F Pulse Rate 92 99 92 Respiratory Rate 16 18 Blood Pressure 129/57 L 141/65 H 122/56 L Pulse Oximetry 93 91 L Oxygen Delivery Method Room Air Room Air BMI result Body Mass Index 38.3 Labs 07/27/24 17:31 07/27/24 17:31 Labs: Laboratory Results - last 48 hr 08/05/24 08/06/24 07:44 07:48 POC Glucose 138 H 129 H Medications Medications Current Medications Acetaminophen (Acetaminophen 325 Mg Tablet) 650 mg PO Q6H PRN PRN Reason: Headache/Pain, Scale 1-10 Last Admin: 08/02/24 20:33 Dose: 650 mg Al Hydroxide/Mg Hydroxide (Magnesium Hydrox/Alum Hydrox 30 Ml Oral.Susp) 30 ml PO Q6H PRN PRN Reason: Heartburn/Nausea Last Admin: 07/30/24 16:44 Dose: 30 ml Apixaban (Apixaban 5 Mg Tablet) 5 mg PO BID [facility] Last Admin: 08/06/24 08:52 Dose: 5 mg Aripiprazole (Aripiprazole 5 Mg Tablet) 5 mg PO DAILY [facility] Last Admin: 08/06/24 08:52 Dose: 5 mg Atorvastatin Calcium (Atorvastatin Calcium 40 Mg Tablet) 40 mg PO BEDTIME [facility] Last Admin: 08/05/24 21:41 Dose: 40 mg Benztropine Mesylate (Benztropine Mesylate 1 Mg Tablet) 2 mg PO BEDTIME [facility] Last Admin: 08/05/24 21:42 Dose: 2 mg Divalproex Sodium (Divalproex Sodium Sprinkles 125 Mg Cap.DrTunde) 1,000 mg PO BID [facility] Last Admin: 08/06/24 08:52 Dose: 1,000 mg Furosemide (Furosemide 20 Mg Tablet) 20 mg PO DAILY [facility]; Protocol Last Admin: 08/06/24 08:52 Dose: 20 mg Haloperidol Decanoate (Haloperidol Decanoate 50 Mg/Ml Vial) 100 mg IM Q30D [facility] Last Admin: 07/31/24 12:29 Dose: 100 mg Hydroxyzine HCl (Hydroxyzine Hcl 25 Mg Tablet) 25 mg PO Q6H PRN PRN Reason: mild anxiety Lorazepam (Lorazepam 1 Mg Tablet) 1 mg PO Q4H PRN PRN Reason: Anxiety Last Admin: 08/05/24 21:42 Dose: 1 mg Magnesium Hydroxide (Milk Of Magnesia 30 Ml Oral.Susp) 30 ml PO DAILY PRN PRN Reason: Constipation Last Admin: 08/03/24 20:55 Dose: 30 ml Magnesium Oxide (Magnesium Oxide 400 Mg Tablet) 400 mg PO DAILY [facility] Last Admin: 08/06/24 08:52 Dose: 400 mg Melatonin (Melatonin 3 Mg Tablet) 9 mg PO BEDTIME [facility] Last Admin: 08/05/24 21:42 Dose: 9 mg Metoprolol Succinate (Metoprolol Succinate Er 25 Mg Tab.Er.24h) 25 mg PO BEDTIME [facility]; Protocol Last Admin: 08/05/24 21:41 Dose: 25 mg Nicotine Polacrilex (Nicotine Polacrilex 2 Mg Gum) 4 mg BUCCAL Q2H PRN PRN Reason: Nicotine Cravings Pt Own (Trulicity 1. 5 Mg/ 0.5 Ml Injection ) 0.5 ml SUBCUT Sa@0900 [facility] Last Admin: 08/06/24 09:19 Dose: 0.5 ml Non-Form Med ([place] Thyroid 120mg Tab 120 Mg Tablet) 120 mg PO DAILY@629 [facility] Last Admin: 08/06/24 07:17 Dose: 120 mg Omeprazole (Omeprazole 20 Mg Capsule.Dr) 20 mg PO DAILY@629 [facility] Last Admin: 08/06/24 07:17 Dose: 20 mg Ondansetron HCl (Ondansetron Odt 4 Mg Tab.Rapdis) 4 mg TRANSLINGU Q8H PRN PRN Reason: Nausea and Vomiting Last Admin: 08/03/24 11:57 Dose: 4 mg Polyethylene Glycol (Polyethylene Glycol 3350 17 Gm Powd.Pack) 17 gm PO DAILY PRN PRN Reason: Constipation,severe Last Admin: 08/05/24 13:12 Dose: 17 gm Trazodone HCl (Trazodone Hcl 50 Mg Tablet) 50 mg PO BEDTIME MRX1 PRN PRN Reason: Insomnia Vitamin D (Cholecalciferol (Vitamin D3) 25 Mcg Tablet) 25 mcg PO DAILY [facility] Last Admin: 08/06/24 08:52 Dose: 25 mcg Zolpidem Tartrate (Zolpidem Tartrate 5 Mg Tablet) 5 mg PO BEDTIME PRN PRN Reason: Insomnia Last Admin: 08/05/24 21:41 Dose: 5 mg Allergies Allergies Allergy/AdvReac Type Severity Reaction Status Date / Time amoxicillin Allergy Unknown Verified 07/27/24 16:59 Assessment & Plan Assessment & Plan (1) PTSD (post-traumatic stress disorder): Status: Acute Code(s): F43.10 - Post-traumatic stress disorder, unspecified (2) Bipolar affective psychosis: Qualifiers: Active/Remission status: currently active Current bipolar episode type: depressed Current episode severity: unspecified Qualified Code(s): F31.30 - Bipolar disorder, current episode depressed, mild or moderate severity, unspecified Status: Acute Code(s): F31.9 - Bipolar disorder, unspecified Plan Admit, CV, 15 minute checks Valproate Level Collateral Contact Diagnostics as needed Continue current regime Discussed options with pt, chart reports Horace' guardianship is in place. Will search for this 08/01: DC evening Haldol Titrate Abilify as tolerated and as symptoms occur 08/03: Continue tx Haldol prn per pt request 08/04: Patient states that she is ?a little better? today. She is looking forward to start Ingrezza, once approved by her health plan, for her bilateral hand tremors which started when she was on Haldol 4-5 months ago. She currently denies anxiety/depression/SI/HI/AH/VH. Continue current trearment regimen. 08/05: Continue tx 08/06: Continue current management and treatment plan. Reason for continued inpatient stay Substantial Risk for: inability to function and rapid decompensation Time Spent With Patient Time: Total time managing care of this patient today ____ minutes.
[2024-08-06 20:00] VITALS: BP 128/77; PULSE 97; RESP 16; TEMP 37.1; O2SAT 95
[2024-08-06 20:47] VITALS: BP 128/77; PULSE 97
[2024-08-06] MEDS: Metoprolol Succinate ER 25 MG TAB.ER.24H PO (20:47)
[2024-08-07] MEDS: [UNRECOGNIZED DRUG - REMARK] 120 EACH PO (05:37)
[2024-08-07 08:00] VITALS: BP 130/58; PULSE 91; RESP 18; TEMP 36.9; O2SAT 93
[2024-08-07 08:04] LABS: Glucose, Whole Blood 125 mg/dL (60-115)
[2024-08-07] MEDS: Divalproex Sodium Sprinkles 125 MG CAP.DR.SPR 1000 MG PO ×2 (08:25→20:38)
--- NOTE | 2024-08-07 09:43 | HO.PSYCHPN ---
Subjective Subjective Date of Service: 08/07/24 Reason For Visit: PTSD Bipolar Disorder with Psychosis Interim History: Patient seen and discussed in team. Tolerating medications well. Hopeful the [employer] will be approved. Discussed her experience with bipolar disorder. She had her first episode at age 28. She reports she responded to mood stabilizers in combination with antipsychotics. Reports she has been improving other than the tremors and TD's. Denies SI,HI,AH, VH Tolerating Abilify, attending groups Review of Systems Review of Systems Denies Yes all other systems are reviewed and are negative Constitutional: Reports as per [facility] Mental Status Exam Mental Status Exam Narrative: Appearance: Casually dressed, adequate hygiene Behavior: Calm and cooperative throughout the interview. Eye contact is appropriate, and there are no signs of psychomotor agitation or retardation Speech: Normal volume and prosody Thought process: logical and goal-directed Thought content: Future oriented no self-harming thoughts Mood: A little better Affect: Constricted SI:denies HI:denies VH/AH:none Delusions: None Insight/judgment: Fair insight and judgment Memory/cog: Alert, oriented x 4. grossly intact to conversational testing Patient Appearance: Appropriate Patient Orientation: Person, Place, Time and Situation Level of Consciousness: Alert Patient Behavior: Appropriate, Talkative and Cooperative Mood Description: Depressed and Anxious Affect Description: Flat Patient Cognition Impaired: No Ability to Follow Directions: Good Speech Pattern: Spontaneous Speech Memory Description: Episodic Impaired Diagnostics Vital Signs (24Hr): Vital Signs - 24 hr 08/06/24 20:00 08/06/24 20:47 08/07/24 08:00 Temperature 98.8 F 98.5 F Pulse Rate 97 97 91 Respiratory Rate 16 18 Blood Pressure 128/77 128/77 130/58 L Pulse Oximetry 95 93 Oxygen Delivery Method Room Air Room Air BMI result Body Mass Index 38.3 Labs 07/27/24 17:31 07/27/24 17:31 Labs: Laboratory Results - last 48 hr 08/06/24 08/07/24 07:48 08:00 POC Glucose 129 H 125 H Medications Medications Current Medications Acetaminophen (Acetaminophen 325 Mg Tablet) 650 mg PO Q6H PRN PRN Reason: Headache/Pain, Scale 1-10 Last Admin: 08/02/24 20:33 Dose: 650 mg Al Hydroxide/Mg Hydroxide (Magnesium Hydrox/Alum Hydrox 30 Ml Oral.Susp) 30 ml PO Q6H PRN PRN Reason: Heartburn/Nausea Last Admin: 07/30/24 16:44 Dose: 30 ml Apixaban (Apixaban 5 Mg Tablet) 5 mg PO BID [facility] Last Admin: 08/07/24 08:27 Dose: 5 mg Aripiprazole (Aripiprazole 5 Mg Tablet) 5 mg PO DAILY [facility] Last Admin: 08/07/24 08:27 Dose: 5 mg Atorvastatin Calcium (Atorvastatin Calcium 40 Mg Tablet) 40 mg PO BEDTIME [facility] Last Admin: 08/06/24 20:45 Dose: 40 mg Benztropine Mesylate (Benztropine Mesylate 1 Mg Tablet) 2 mg PO BEDTIME [facility] Last Admin: 08/06/24 20:45 Dose: 2 mg Divalproex Sodium (Divalproex Sodium Sprinkles 125 Mg Cap.Dr.Spr) 1,000 mg PO BID [facility] Last Admin: 08/07/24 08:25 Dose: 1,000 mg Furosemide (Furosemide 20 Mg Tablet) 20 mg PO DAILY [facility]; Protocol Last Admin: 08/07/24 08:26 Dose: 20 mg Haloperidol Decanoate (Haloperidol Decanoate 50 Mg/Ml Vial) 100 mg IM Q30D [facility] Last Admin: 07/31/24 12:29 Dose: 100 mg Hydroxyzine HCl (Hydroxyzine Hcl 25 Mg Tablet) 25 mg PO Q6H PRN PRN Reason: mild anxiety Lorazepam (Lorazepam 1 Mg Tablet) 1 mg PO Q4H PRN PRN Reason: Anxiety Last Admin: 08/06/24 20:48 Dose: 1 mg Magnesium Hydroxide (Milk Of Magnesia 30 Ml Oral.Susp) 30 ml PO DAILY PRN PRN Reason: Constipation Last Admin: 08/03/24 20:55 Dose: 30 ml Magnesium Oxide (Magnesium Oxide 400 Mg Tablet) 400 mg PO DAILY [facility] Last Admin: 08/07/24 08:26 Dose: 400 mg Melatonin (Melatonin 3 Mg Tablet) 9 mg PO BEDTIME [facility] Last Admin: 08/06/24 20:46 Dose: 9 mg Metoprolol Succinate (Metoprolol Succinate Er 25 Mg Tab.Er.24h) 25 mg PO BEDTIME [facility]; Protocol Last Admin: 08/06/24 20:47 Dose: 25 mg Nicotine Polacrilex (Nicotine Polacrilex 2 Mg Gum) 4 mg BUCCAL Q2H PRN PRN Reason: Nicotine Cravings Pt Own (Trulicity 1. 5 Mg/ 0.5 Ml Injection ) 0.5 ml SUBCUT Sa@0900 [facility] Last Admin: 08/06/24 09:19 Dose: 0.5 ml Non-Form Med ([place] Thyroid 120mg Tab 120 Mg Tablet) 120 mg PO DAILY@629 [facility] Last Admin: 08/07/24 05:37 Dose: 120 mg Omeprazole (Omeprazole 20 Mg Capsule.Dr) 20 mg PO DAILY@629 [facility] Last Admin: 08/07/24 05:37 Dose: 20 mg Ondansetron HCl (Ondansetron Odt 4 Mg Tab.Rapdis) 4 mg TRANSLINGU Q8H PRN PRN Reason: Nausea and Vomiting Last Admin: 08/03/24 11:57 Dose: 4 mg Polyethylene Glycol (Polyethylene Glycol 3350 17 Gm Powd.Pack) 17 gm PO DAILY PRN PRN Reason: Constipation,severe Last Admin: 08/05/24 13:12 Dose: 17 gm Trazodone HCl (Trazodone Hcl 50 Mg Tablet) 50 mg PO BEDTIME MRX1 PRN PRN Reason: Insomnia Vitamin D (Cholecalciferol (Vitamin D3) 25 Mcg Tablet) 25 mcg PO DAILY [facility] Last Admin: 08/07/24 08:26 Dose: 25 mcg Zolpidem Tartrate (Zolpidem Tartrate 5 Mg Tablet) 5 mg PO BEDTIME PRN PRN Reason: Insomnia Last Admin: 08/06/24 20:48 Dose: 5 mg Allergies Allergies Allergy/AdvReac Type Severity Reaction Status Date / Time amoxicillin Allergy Unknown Verified 07/27/24 16:59 Assessment & Plan Assessment & Plan (1) PTSD (post-traumatic stress disorder): Status: Acute Code(s): F43.10 - Post-traumatic stress disorder, unspecified (2) Bipolar affective psychosis: Qualifiers: Active/Remission status: currently active Current bipolar episode type: depressed Current episode severity: unspecified Qualified Code(s): F31.30 - Bipolar disorder, current episode depressed, mild or moderate severity, unspecified Status: Acute Code(s): F31.9 - Bipolar disorder, unspecified Plan Admit, CV, 15 minute checks Valproate Level Collateral Contact Diagnostics as needed Continue current regime Discussed options with pt, chart reports Vu' guardianship is in place. Will search for this 08/01: DC evening Haldol Titrate Abilify as tolerated and as symptoms occur 08/03: Continue tx Haldol prn per pt request 08/04: Patient states that she is ?a little better? today. She is looking forward to start Ingrezza, once approved by her health plan, for her bilateral hand tremors which started when she was on Haldol 4-5 months ago. She currently denies anxiety/depression/SI/HI/AH/VH. Continue current trearment regimen. 08/05: Continue tx 08/06: Continue current management and treatment plan. 08/07: Continue current management and treatment plan. Reason for continued inpatient stay Substantial Risk for: inability to function and rapid decompensation Time Spent With Patient Time: Total time managing care of this patient today ____ minutes.
[2024-08-07 19:53] VITALS: BP 145/67; PULSE 94; RESP 15; TEMP 36.9; O2SAT 94
[2024-08-07] MEDS: Metoprolol Succinate ER 25 MG TAB.ER.24H PO (20:39)
[2024-08-08] MEDS: [UNRECOGNIZED DRUG - REMARK] 120 EACH PO (07:00)
[2024-08-08 07:55] LABS: Glucose, Whole Blood 128 mg/dL (60-115)
[2024-08-08 08:29] VITALS: BP 112/60; PULSE 86; RESP 16; TEMP 36.8; O2SAT 93
[2024-08-08] MEDS: Divalproex Sodium Sprinkles 125 MG CAP.DR.SPR 1000 MG PO (08:37)
--- NOTE | 2024-08-08 12:33 | P.PNPSI_ITS ---
Subjective Subjective Date of Service: 08/08/24 Reason For Visit: PTSD Bipolar Disorder with Psychosis Subjective Notes: Conditional Voluntary Healthcare Proxy: Yes Guardianship: No Medical Problems Affecting Mental Status: No Interim History: Pt reports a good weekend, connecting with peers and team. Denies depressive sx. Today discussed concerns with her tremors and walking-will ask PT to see pt to evaluate. Also discussed memory loss she has started to notice at home-repeating conversations with friends, walking into a room and forgetting what she went in for. Concerns about dementia. Call to [facility] reqarding shiraing Ailyn COLEMAN-given a referral number to call on 08/09 Medication Compliance: Yes Side effects from medications: Yes (TD) Attending Groups: Yes Review of Systems Acute medical concerns: No Review of Systems Review of Systems TD Sx Mental Status Exam Mental Status Exam Patient Appearance: Appropriate Patient Orientation: Person, Place, Time and Situation Level of Consciousness: Alert Patient Behavior: Talkative and Good Eye Contact Mood Description: Calm Affect Description: Calm Patient Cognition Impaired: No Ability to Follow Directions: Good Speech Pattern: Spontaneous Speech Memory Description: Intact Hallucinations: None Delusions: Not Present Thought Process: Goal Oriented Thought Content: positive for Goal Oriented Depressive Symptoms: Muscle Tension Judgement: Good Diagnostics Vital Signs (24Hr): Vital Signs - 24 hr 08/07/24 19:53 08/08/24 08:29 Temperature 98.5 F 98.2 F Pulse Rate 94 86 Respiratory Rate 15 16 Blood Pressure 145/67 H 112/60 Pulse Oximetry 94 93 Oxygen Delivery Method Room Air BMI result Body Mass Index 38.3 Labs 07/27/24 17:31 07/27/24 17:31 Labs: Laboratory Results - last 48 hr 08/07/24 08/08/24 08:00 07:48 POC Glucose 125 H 128 H Medications Medications Current Medications Acetaminophen (Acetaminophen 325 Mg Tablet) 650 mg PO Q6H PRN PRN Reason: Headache/Pain, Scale 1-10 Last Admin: 08/07/24 20:53 Dose: 650 mg Al Hydroxide/Mg Hydroxide (Magnesium Hydrox/Alum Hydrox 30 Ml Oral.Susp) 30 ml PO Q6H PRN PRN Reason: Heartburn/Nausea Last Admin: 07/30/24 16:44 Dose: 30 ml Apixaban (Apixaban 5 Mg Tablet) 5 mg PO BID [facility] Last Admin: 08/08/24 08:37 Dose: 5 mg Aripiprazole (Aripiprazole 5 Mg Tablet) 5 mg PO DAILY [facility] Last Admin: 08/08/24 08:38 Dose: 5 mg Atorvastatin Calcium (Atorvastatin Calcium 40 Mg Tablet) 40 mg PO BEDTIME [facility] Last Admin: 08/07/24 20:40 Dose: 40 mg Benztropine Mesylate (Benztropine Mesylate 1 Mg Tablet) 2 mg PO BEDTIME [facility] Last Admin: 08/07/24 20:39 Dose: 2 mg Divalproex Sodium (Divalproex Sodium Sprinkles 125 Mg Cap.Dr.Spr) 1,000 mg PO BID [facility] Last Admin: 08/08/24 08:37 Dose: 1,000 mg Furosemide (Furosemide 20 Mg Tablet) 20 mg PO DAILY [facility]; Protocol Last Admin: 08/08/24 08:37 Dose: 20 mg Haloperidol Decanoate (Haloperidol Decanoate 50 Mg/Ml Vial) 100 mg IM Q30D [facility] Last Admin: 07/31/24 12:29 Dose: 100 mg Hydroxyzine HCl (Hydroxyzine Hcl 25 Mg Tablet) 25 mg PO Q6H PRN PRN Reason: mild anxiety Lorazepam (Lorazepam 1 Mg Tablet) 1 mg PO Q4H PRN PRN Reason: Anxiety Last Admin: 08/07/24 20:40 Dose: 1 mg Magnesium Hydroxide (Milk Of Magnesia 30 Ml Oral.Susp) 30 ml PO DAILY PRN PRN Reason: Constipation Last Admin: 08/03/24 20:55 Dose: 30 ml Magnesium Oxide (Magnesium Oxide 400 Mg Tablet) 400 mg PO DAILY [facility] Last Admin: 08/08/24 08:38 Dose: 400 mg Melatonin (Melatonin 3 Mg Tablet) 9 mg PO BEDTIME [facility] Last Admin: 08/07/24 20:38 Dose: 9 mg Metoprolol Succinate (Metoprolol Succinate Er 25 Mg Tab.Er.24h) 25 mg PO BEDTIME [facility]; Protocol Last Admin: 08/07/24 20:39 Dose: 25 mg Nicotine Polacrilex (Nicotine Polacrilex 2 Mg Gum) 4 mg BUCCAL Q2H PRN PRN Reason: Nicotine Cravings Pt Own (Trulicity 1. 5 Mg/ 0.5 Ml Injection ) 0.5 ml SUBCUT Sa@0900 [facility] Last Admin: 08/06/24 09:19 Dose: 0.5 ml Non-Form Med ([place] Thyroid 120mg Tab 120 Mg Tablet) 120 mg PO DAILY@629 [facility] Last Admin: 08/08/24 07:00 Dose: 120 mg Omeprazole (Omeprazole 20 Mg Capsule.Dr) 20 mg PO DAILY@629 [facility] Last Admin: 08/08/24 07:00 Dose: 20 mg Ondansetron HCl (Ondansetron Odt 4 Mg Tab.Rapdis) 4 mg TRANSLINGU Q8H PRN PRN Reason: Nausea and Vomiting Last Admin: 08/03/24 11:57 Dose: 4 mg Polyethylene Glycol (Polyethylene Glycol 3350 17 Gm Powd.Pack) 17 gm PO DAILY PRN PRN Reason: Constipation,severe Last Admin: 08/05/24 13:12 Dose: 17 gm Trazodone HCl (Trazodone Hcl 50 Mg Tablet) 50 mg PO BEDTIME MRX1 PRN PRN Reason: Insomnia Vitamin D (Cholecalciferol (Vitamin D3) 25 Mcg Tablet) 25 mcg PO DAILY [facility] Last Admin: 08/08/24 08:38 Dose: 25 mcg Zolpidem Tartrate (Zolpidem Tartrate 5 Mg Tablet) 5 mg PO BEDTIME PRN PRN Reason: Insomnia Last Admin: 08/07/24 20:39 Dose: 5 mg Allergies Allergies Allergy/AdvReac Type Severity Reaction Status Date / Time amoxicillin Allergy Unknown Verified 07/27/24 16:59 Assessment & Plan Assessment & Plan (1) PTSD (post-traumatic stress disorder): Status: Acute Code(s): F43.10 - Post-traumatic stress disorder, unspecified (2) Bipolar affective psychosis: Qualifiers: Active/Remission status: currently active Current bipolar episode type: depressed Current episode severity: unspecified Qualified Code(s): F31.30 - Bipolar disorder, current episode depressed, mild or moderate severity, unspecified Status: Acute Code(s): F31.9 - Bipolar disorder, unspecified Plan Admit, CV, 15 minute checks Valproate Level Collateral Contact Diagnostics as needed Continue current regime Discussed options with pt, chart reports Horace' guardianship is in place. Will search for this 08/01: DC evening Haldol Titrate Abilify as tolerated and as symptoms occur 08/03: Continue tx Haldol prn per pt request 08/04: Patient states that she is ?a little better? today. She is looking forward to start Ingrezza, once approved by her health plan, for her bilateral hand tremors which started when she was on Haldol 4-5 months ago. She currently denies anxiety/depression/SI/HI/AH/VH. Continue current trearment regimen. 08/05: Continue tx 08/06: Continue current management and treatment plan. 08/07: Continue current management and treatment plan. 08/08: PT Consult-gait stability Reason for continued inpatient stay Substantial Risk for: rapid decompensation Time Spent With Patient Time: Total time managing care of this patient today ____ minutes.
[2024-08-08 20:00] VITALS: BP 127/60; PULSE 94; RESP 16; TEMP 36.8; O2SAT 94
[2024-08-08 22:19] VITALS: BP 136/66; PULSE 78
[2024-08-08] MEDS: Metoprolol Succinate ER 25 MG TAB.ER.24H PO (22:19)
[2024-08-09] MEDS: [UNRECOGNIZED DRUG - REMARK] 120 EACH PO (06:59)
[2024-08-09 07:54] LABS: Glucose, Whole Blood 152 mg/dL (60-115)
[2024-08-09 08:00] VITALS: BP 104/66; PULSE 94; RESP 16; TEMP 36.9; O2SAT 94
[2024-08-09 08:51] VITALS: BP 104/66
[2024-08-09] MEDS: Divalproex Sodium Sprinkles 125 MG CAP.DR.SPR 1000 MG PO ×2 (08:52→20:55)
--- NOTE | 2024-08-09 11:28 | P.PNPSI_ITS ---
Subjective Subjective Date of Service: 08/09/24 Reason For Visit: PTSD Bipolar Disorder with Psychosis Subjective Notes: Conditional Voluntary Healthcare Proxy: Yes Guardianship: No Medical Problems Affecting Mental Status: No Interim History: We continue to pursue prior auth for [employer]. Review of diagnostics for dementia assessment which look within range. Discussed MRI/CAT/EEG. Pt would like to hold on these at this time. Reports depression 0, anxiety-3 Discussed discharge for 08/12. Pt feeling prepared. Identifies groups, interactions with peers, team and activities as being most helpful. Reports discontinuation of PO Haldol with Abilify trial is working. We will titrate peior to discharge and she agrees with this. Medication Compliance: Yes Side effects from medications: Yes (TD) Attending Groups: Yes Review of Systems Acute medical concerns: No Medical Review of Systems: unchanged Review of Systems Review of Systems TD Mental Status Exam Mental Status Exam Patient Appearance: Appropriate Patient Orientation: Person, Place, Time and Situation Level of Consciousness: Alert Patient Behavior: Talkative and Good Eye Contact Mood Description: Calm Affect Description: Calm Patient Cognition Impaired: No Ability to Follow Directions: Good Speech Pattern: Spontaneous Speech Memory Description: Intact Hallucinations: None Delusions: Not Present Thought Process: Goal Oriented Thought Content: positive for Goal Oriented Depressive Symptoms: Muscle Tension Judgement: Good Diagnostics Vital Signs (24Hr): Vital Signs - 24 hr 08/08/24 20:00 08/08/24 22:19 08/09/24 08:51 Temperature 98.2 F Pulse Rate 94 78 Respiratory Rate 16 Blood Pressure 127/60 136/66 104/66 Pulse Oximetry 94 Oxygen Delivery Method Room Air BMI result Body Mass Index 38.3 Labs 07/27/24 17:31 07/27/24 17:31 Labs: Laboratory Results - last 48 hr 08/08/24 08/09/24 07:48 07:46 POC Glucose 128 H 152 H Medications Medications Current Medications Acetaminophen (Acetaminophen 325 Mg Tablet) 650 mg PO Q6H PRN PRN Reason: Headache/Pain, Scale 1-10 Last Admin: 08/07/24 20:53 Dose: 650 mg Al Hydroxide/Mg Hydroxide (Magnesium Hydrox/Alum Hydrox 30 Ml Oral.Susp) 30 ml PO Q6H PRN PRN Reason: Heartburn/Nausea Last Admin: 07/30/24 16:44 Dose: 30 ml Apixaban (Apixaban 5 Mg Tablet) 5 mg PO BID [facility] Last Admin: 08/09/24 08:52 Dose: 5 mg Aripiprazole (Aripiprazole 5 Mg Tablet) 5 mg PO DAILY [facility] Last Admin: 08/09/24 08:51 Dose: 5 mg Atorvastatin Calcium (Atorvastatin Calcium 40 Mg Tablet) 40 mg PO BEDTIME [facility] Last Admin: 08/08/24 22:19 Dose: 40 mg Benztropine Mesylate (Benztropine Mesylate 1 Mg Tablet) 2 mg PO BEDTIME [facility] Last Admin: 08/08/24 22:19 Dose: 2 mg Divalproex Sodium (Divalproex Sodium Sprinkles 125 Mg Cap.) 1,000 mg PO BID [facility] Last Admin: 08/09/24 08:52 Dose: 1,000 mg Furosemide (Furosemide 20 Mg Tablet) 20 mg PO DAILY [facility]; Protocol Last Admin: 08/09/24 08:51 Dose: 20 mg Haloperidol Decanoate (Haloperidol Decanoate 50 Mg/Ml Vial) 100 mg IM Q30D [facility] Last Admin: 07/31/24 12:29 Dose: 100 mg Hydroxyzine HCl (Hydroxyzine Hcl 25 Mg Tablet) 25 mg PO Q6H PRN PRN Reason: mild anxiety Lorazepam (Lorazepam 1 Mg Tablet) 1 mg PO Q4H PRN PRN Reason: Anxiety Last Admin: 08/07/24 20:40 Dose: 1 mg Magnesium Hydroxide (Milk Of Magnesia 30 Ml Oral.Susp) 30 ml PO DAILY PRN PRN Reason: Constipation Last Admin: 08/03/24 20:55 Dose: 30 ml Magnesium Oxide (Magnesium Oxide 400 Mg Tablet) 400 mg PO DAILY [facility] Last Admin: 08/09/24 08:52 Dose: 400 mg Melatonin (Melatonin 3 Mg Tablet) 9 mg PO BEDTIME [facility] Last Admin: 08/08/24 22:20 Dose: 9 mg Metoprolol Succinate (Metoprolol Succinate Er 25 Mg Tab.Er.24h) 25 mg PO BEDTIME [facility]; Protocol Last Admin: 08/08/24 22:19 Dose: 25 mg Nicotine Polacrilex (Nicotine Polacrilex 2 Mg Gum) 4 mg BUCCAL Q2H PRN PRN Reason: Nicotine Cravings Pt Own (Trulicity 1. 5 Mg/ 0.5 Ml Injection ) 0.5 ml SUBCUT Sa@0900 [facility] Last Admin: 08/06/24 09:19 Dose: 0.5 ml Non-Form Med ([place] Thyroid 120mg Tab 120 Mg Tablet) 120 mg PO DAILY@629 [facility] Last Admin: 08/09/24 06:59 Dose: 120 mg Omeprazole (Omeprazole 20 Mg Capsule.Dr) 20 mg PO DAILY@629 [facility] Last Admin: 08/09/24 08:52 Dose: 20 mg Ondansetron HCl (Ondansetron Odt 4 Mg Tab.Rapdis) 4 mg TRANSLINGU Q8H PRN PRN Reason: Nausea and Vomiting Last Admin: 08/03/24 11:57 Dose: 4 mg Polyethylene Glycol (Polyethylene Glycol 3350 17 Gm Powd.Pack) 17 gm PO DAILY PRN PRN Reason: Constipation,severe Last Admin: 08/05/24 13:12 Dose: 17 gm Trazodone HCl (Trazodone Hcl 50 Mg Tablet) 50 mg PO BEDTIME MRX1 PRN PRN Reason: Insomnia Vitamin D (Cholecalciferol (Vitamin D3) 25 Mcg Tablet) 25 mcg PO DAILY [facility] Last Admin: 08/09/24 08:52 Dose: 25 mcg Zolpidem Tartrate (Zolpidem Tartrate 5 Mg Tablet) 5 mg PO BEDTIME PRN PRN Reason: Insomnia Last Admin: 08/08/24 22:20 Dose: 5 mg Allergies Allergies Allergy/AdvReac Type Severity Reaction Status Date / Time amoxicillin Allergy Unknown Verified 07/27/24 16:59 Assessment & Plan Assessment & Plan (1) PTSD (post-traumatic stress disorder): Status: Acute Code(s): F43.10 - Post-traumatic stress disorder, unspecified (2) Bipolar affective psychosis: Qualifiers: Active/Remission status: currently active Current bipolar episode type: depressed Current episode severity: unspecified Qualified Code(s): F31.30 - Bipolar disorder, current episode depressed, mild or moderate severity, unspecified Status: Acute Code(s): F31.9 - Bipolar disorder, unspecified Plan Admit, CV, 15 minute checks Valproate Level Collateral Contact Diagnostics as needed Continue current regime Discussed options with pt, chart reports Horace' guardianship is in place. Will search for this 08/01: DC evening Haldol Titrate Abilify as tolerated and as symptoms occur 08/03: Continue tx Haldol prn per pt request 08/04: Patient states that she is ?a little better? today. She is looking forward to start Ingrezza, once approved by her health plan, for her bilateral hand tremors which started when she was on Haldol 4-5 months ago. She currently denies anxiety/depression/SI/HI/AH/VH. Continue current trearment regimen. 08/05: Continue tx 08/06: Continue current management and treatment plan. 08/07: Continue current management and treatment plan. 08/08: PT Consult-gait stability 08/09: Continue regime Reason for continued inpatient stay Substantial Risk for: rapid decompensation Time Spent With Patient Time: Total time managing care of this patient today ____ minutes.
[2024-08-09 20:00] VITALS: BP 141/65; PULSE 95; RESP 16; TEMP 36.9; O2SAT 94
[2024-08-09 20:55] VITALS: BP 141/65; PULSE 95
[2024-08-09] MEDS: Metoprolol Succinate ER 25 MG TAB.ER.24H PO (20:55)
[2024-08-10] MEDS: [UNRECOGNIZED DRUG - REMARK] 120 EACH PO (05:33)
[2024-08-10 08:00] VITALS: BP 109/59; PULSE 89; RESP 18; TEMP 36.9; O2SAT 94
[2024-08-10 08:05] LABS: Glucose, Whole Blood 118 mg/dL (60-115)
[2024-08-10] MEDS: Divalproex Sodium Sprinkles 125 MG CAP.DR.SPR 1000 MG PO ×2 (08:30→20:55)
--- NOTE | 2024-08-10 14:19 | HO.PSYCHPN ---
Subjective Subjective Date of Service: 08/10/24 Reason For Visit: PTSD Bipolar Disorder with Psychosis Subjective Notes: Conditional Voluntary Healthcare Proxy: Yes Guardianship: No Medical Problems Affecting Mental Status: No Interim History: Pt visable in milieu and with peers. Attending groups and milieu activities. Preparing for discharge, currently, no concerns, however, I realize how much it means to be here with my friends. I love my home but I do get lonely at times. Medication Compliance: Yes Side effects from medications: No Attending Groups: Yes Review of Systems Acute medical concerns: No Review of Systems Review of Systems TD Mental Status Exam Mental Status Exam Patient Appearance: Appropriate Patient Orientation: Person, Place, Time and Situation Level of Consciousness: Alert Patient Behavior: Talkative and Good Eye Contact Mood Description: Calm Affect Description: Calm Patient Cognition Impaired: No Ability to Follow Directions: Good Speech Pattern: Spontaneous Speech Memory Description: Intact Hallucinations: None Delusions: Not Present Thought Process: Goal Oriented Thought Content: positive for Goal Oriented Depressive Symptoms: Muscle Tension Judgement: Good Diagnostics Vital Signs (24Hr): Vital Signs - 24 hr 08/09/24 20:00 08/09/24 20:55 08/10/24 08:00 Temperature 98.4 F 98.5 F Pulse Rate 95 95 89 Respiratory Rate 16 18 Blood Pressure 141/65 H 141/65 H 109/59 L Pulse Oximetry 94 94 Oxygen Delivery Method Room Air Room Air BMI result Body Mass Index 38.3 Labs 07/27/24 17:31 07/27/24 17:31 Labs: Laboratory Results - last 48 hr 08/09/24 08/10/24 07:46 07:58 POC Glucose 152 H 118 H Medications Medications Current Medications Acetaminophen (Acetaminophen 325 Mg Tablet) 650 mg PO Q6H PRN PRN Reason: Headache/Pain, Scale 1-10 Last Admin: 08/07/24 20:53 Dose: 650 mg Al Hydroxide/Mg Hydroxide (Magnesium Hydrox/Alum Hydrox 30 Ml Oral.Susp) 30 ml PO Q6H PRN PRN Reason: Heartburn/Nausea Last Admin: 07/30/24 16:44 Dose: 30 ml Apixaban (Apixaban 5 Mg Tablet) 5 mg PO BID [facility] Last Admin: 08/10/24 08:30 Dose: 5 mg Aripiprazole (Aripiprazole 5 Mg Tablet) 5 mg PO DAILY [facility] Last Admin: 08/10/24 08:30 Dose: 5 mg Atorvastatin Calcium (Atorvastatin Calcium 40 Mg Tablet) 40 mg PO BEDTIME [facility] Last Admin: 08/09/24 20:56 Dose: 40 mg Benztropine Mesylate (Benztropine Mesylate 1 Mg Tablet) 2 mg PO BEDTIME [facility] Last Admin: 08/09/24 20:56 Dose: 2 mg Divalproex Sodium (Divalproex Sodium Sprinkles 125 Mg Cap) 1,000 mg PO BID [facility] Last Admin: 08/10/24 08:30 Dose: 1,000 mg Furosemide (Furosemide 20 Mg Tablet) 20 mg PO DAILY [facility]; Protocol Last Admin: 08/10/24 08:30 Dose: 20 mg Haloperidol Decanoate (Haloperidol Decanoate 50 Mg/Ml Vial) 100 mg IM Q30D [facility] Last Admin: 07/31/24 12:29 Dose: 100 mg Hydroxyzine HCl (Hydroxyzine Hcl 25 Mg Tablet) 25 mg PO Q6H PRN PRN Reason: mild anxiety Lorazepam (Lorazepam 1 Mg Tablet) 1 mg PO Q4H PRN PRN Reason: Anxiety Last Admin: 08/09/24 20:57 Dose: 1 mg Magnesium Hydroxide (Milk Of Magnesia 30 Ml Oral.Susp) 30 ml PO DAILY PRN PRN Reason: Constipation Last Admin: 08/03/24 20:55 Dose: 30 ml Magnesium Oxide (Magnesium Oxide 400 Mg Tablet) 400 mg PO DAILY [facility] Last Admin: 08/10/24 08:35 Dose: 400 mg Melatonin (Melatonin 3 Mg Tablet) 9 mg PO BEDTIME [facility] Last Admin: 08/09/24 20:57 Dose: 9 mg Metoprolol Succinate (Metoprolol Succinate Er 25 Mg Tab.Er.24h) 25 mg PO BEDTIME [facility]; Protocol Last Admin: 08/09/24 20:55 Dose: 25 mg Nicotine Polacrilex (Nicotine Polacrilex 2 Mg Gum) 4 mg BUCCAL Q2H PRN PRN Reason: Nicotine Cravings Pt Own (Trulicity 1. 5 Mg/ 0.5 Ml Injection ) 0.5 ml SUBCUT Sa@0900 [facility] Last Admin: 08/06/24 09:19 Dose: 0.5 ml Non-Form Med ([place] Thyroid 120mg Tab 120 Mg Tablet) 120 mg PO DAILY@0630 [facility] Last Admin: 08/10/24 05:33 Dose: 120 mg Omeprazole (Omeprazole 20 Mg Capsule.) 20 mg PO DAILY@0630 [facility] Last Admin: 08/10/24 05:33 Dose: 20 mg Ondansetron HCl (Ondansetron Odt 4 Mg Tab.Rapdis) 4 mg TRANSLINGU Q8H PRN PRN Reason: Nausea and Vomiting Last Admin: 08/03/24 11:57 Dose: 4 mg Polyethylene Glycol (Polyethylene Glycol 3350 17 Gm Powd.Pack) 17 gm PO DAILY PRN PRN Reason: Constipation,severe Last Admin: 08/10/24 13:28 Dose: 17 gm Trazodone HCl (Trazodone Hcl 50 Mg Tablet) 50 mg PO BEDTIME MRX1 PRN PRN Reason: Insomnia Vitamin D (Cholecalciferol (Vitamin D3) 25 Mcg Tablet) 25 mcg PO DAILY [facility] Last Admin: 08/10/24 08:30 Dose: 25 mcg Zolpidem Tartrate (Zolpidem Tartrate 5 Mg Tablet) 5 mg PO BEDTIME PRN PRN Reason: Insomnia Last Admin: 08/09/24 20:56 Dose: 5 mg Allergies Allergies Allergy/AdvReac Type Severity Reaction Status Date / Time amoxicillin Allergy Unknown Verified 07/27/24 16:59 Assessment & Plan Assessment & Plan (1) PTSD (post-traumatic stress disorder): Status: Acute Code(s): F43.10 - Post-traumatic stress disorder, unspecified (2) Bipolar affective psychosis: Qualifiers: Active/Remission status: currently active Current bipolar episode type: depressed Current episode severity: unspecified Qualified Code(s): F31.30 - Bipolar disorder, current episode depressed, mild or moderate severity, unspecified Status: Acute Code(s): F31.9 - Bipolar disorder, unspecified Plan Admit, CV, 15 minute checks Valproate Level Collateral Contact Diagnostics as needed Continue current regime Discussed options with pt, chart reports Horace' guardianship is in place. Will search for this 08/01: DC evening Haldol Titrate Abilify as tolerated and as symptoms occur 08/03: Continue tx Haldol prn per pt request 08/04: Patient states that she is ?a little better? today. She is looking forward to start Ingrezza, once approved by her health plan, for her bilateral hand tremors which started when she was on Haldol 4-5 months ago. She currently denies anxiety/depression/SI/HI/AH/VH. Continue current trearment regimen. 08/05: Continue tx 08/06: Continue current management and treatment plan. 08/07: Continue current management and treatment plan. 08/08: PT Consult-gait stability 08/10: Continue regime. DC 08/12. Reason for continued inpatient stay Substantial Risk for: rapid decompensation Time Spent With Patient Time: Total time managing care of this patient today ____ minutes.
[2024-08-10 19:44] VITALS: BP 143/63; PULSE 95; RESP 16; TEMP 36.4; O2SAT 92
[2024-08-10 20:53] VITALS: BP 130/61; PULSE 91
[2024-08-10] MEDS: Metoprolol Succinate ER 25 MG TAB.ER.24H PO (20:53)
[2024-08-11] MEDS: [UNRECOGNIZED DRUG - REMARK] 120 EACH PO (06:34)
[2024-08-11 07:00] VITALS: BMI 38.4
[2024-08-11 08:35] LABS: Glucose, Whole Blood 134 mg/dL (60-115)
[2024-08-11] MEDS: Divalproex Sodium Sprinkles 125 MG CAP.DR.SPR 1000 MG PO ×2 (08:50→20:04)
[2024-08-11 08:55] VITALS: BP 103/55; PULSE 87; RESP 18; TEMP 36.6; O2SAT 93
--- NOTE | 2024-08-11 11:55 | HO.PSYCHPN ---
Subjective Subjective Date of Service: 08/11/24 Reason For Visit: PTSD Bipolar Disorder with Psychosis Subjective Notes: Conditional Voluntary Healthcare Proxy: Yes Guardianship: No Medical Problems Affecting Mental Status: No Interim History: Review of medications needed for refill for discharge. Pt feeling prepared, ready to return to her life. Denies SI,HI,AH,VH. No sx of overt becca or psychosis. Insight and Judgment are appropriate. Medication Compliance: Yes Side effects from medications: Yes (TD) Attending Groups: Yes Review of Systems Acute medical concerns: No Medical Review of Systems: unchanged Review of Systems Review of Systems TD Mental Status Exam Mental Status Exam Patient Appearance: Appropriate Patient Orientation: Person, Place, Time and Situation Level of Consciousness: Alert Patient Behavior: Talkative and Good Eye Contact Mood Description: Calm Affect Description: Calm Patient Cognition Impaired: No Ability to Follow Directions: Good Speech Pattern: Spontaneous Speech Memory Description: Intact Hallucinations: None Delusions: Not Present Thought Process: Goal Oriented Thought Content: positive for Goal Oriented Depressive Symptoms: Muscle Tension Judgement: Good Diagnostics Vital Signs (24Hr): Vital Signs - 24 hr 08/10/24 19:44 08/10/24 20:53 08/11/24 08:55 Temperature 97.5 F 97.9 F Pulse Rate 95 91 87 Respiratory Rate 16 18 Blood Pressure 143/63 H 130/61 103/55 L Pulse Oximetry 92 93 Oxygen Delivery Method Room Air Room Air BMI result Body Mass Index 38.3 Labs 07/27/24 17:31 07/27/24 17:31 Labs: Laboratory Results - last 48 hr 08/10/24 08/11/24 07:58 07:48 POC Glucose 118 H 134 H Medications Medications Current Medications Acetaminophen (Acetaminophen 325 Mg Tablet) 650 mg PO Q6H PRN PRN Reason: Headache/Pain, Scale 1-10 Last Admin: 08/07/24 20:53 Dose: 650 mg Al Hydroxide/Mg Hydroxide (Magnesium Hydrox/Alum Hydrox 30 Ml Oral.Susp) 30 ml PO Q6H PRN PRN Reason: Heartburn/Nausea Last Admin: 07/30/24 16:44 Dose: 30 ml Apixaban (Apixaban 5 Mg Tablet) 5 mg PO BID [facility] Last Admin: 08/11/24 08:50 Dose: 5 mg Aripiprazole (Aripiprazole 5 Mg Tablet) 5 mg PO DAILY [facility] Last Admin: 08/11/24 08:50 Dose: 5 mg Atorvastatin Calcium (Atorvastatin Calcium 40 Mg Tablet) 40 mg PO BEDTIME [facility] Last Admin: 08/10/24 20:55 Dose: 40 mg Benztropine Mesylate (Benztropine Mesylate 1 Mg Tablet) 2 mg PO BEDTIME [facility] Last Admin: 08/10/24 20:54 Dose: 2 mg Divalproex Sodium (Divalproex Sodium Sprinkles 125 Mg Cap.DrTunde) 1,000 mg PO BID [facility] Last Admin: 08/11/24 08:50 Dose: 1,000 mg Furosemide (Furosemide 20 Mg Tablet) 20 mg PO DAILY [facility]; Protocol Last Admin: 08/11/24 08:50 Dose: 20 mg Haloperidol Decanoate (Haloperidol Decanoate 50 Mg/Ml Vial) 100 mg IM Q30D [facility] Last Admin: 07/31/24 12:29 Dose: 100 mg Hydroxyzine HCl (Hydroxyzine Hcl 25 Mg Tablet) 25 mg PO Q6H PRN PRN Reason: mild anxiety Lorazepam (Lorazepam 1 Mg Tablet) 1 mg PO Q4H PRN PRN Reason: Anxiety Last Admin: 08/10/24 20:54 Dose: 1 mg Magnesium Hydroxide (Milk Of Magnesia 30 Ml Oral.Susp) 30 ml PO DAILY PRN PRN Reason: Constipation Last Admin: 08/03/24 20:55 Dose: 30 ml Magnesium Oxide (Magnesium Oxide 400 Mg Tablet) 400 mg PO DAILY [facility] Last Admin: 08/11/24 08:50 Dose: 400 mg Melatonin (Melatonin 3 Mg Tablet) 9 mg PO BEDTIME [facility] Last Admin: 08/10/24 20:54 Dose: 9 mg Metoprolol Succinate (Metoprolol Succinate Er 25 Mg Tab.Er.24h) 25 mg PO BEDTIME [facility]; Protocol Last Admin: 08/10/24 20:53 Dose: 25 mg Nicotine Polacrilex (Nicotine Polacrilex 2 Mg Gum) 4 mg BUCCAL Q2H PRN PRN Reason: Nicotine Cravings Pt Own (Trulicity 1. 5 Mg/ 0.5 Ml Injection ) 0.5 ml SUBCUT Sa@0900 [facility] Last Admin: 08/06/24 09:19 Dose: 0.5 ml Non-Form Med ([place] Thyroid 120mg Tab 120 Mg Tablet) 120 mg PO DAILY@0630 [facility] Last Admin: 08/11/24 06:34 Dose: 120 mg Omeprazole (Omeprazole 20 Mg Capsule.) 20 mg PO DAILY@0630 [facility] Last Admin: 08/11/24 08:50 Dose: 20 mg Ondansetron HCl (Ondansetron Odt 4 Mg Tab.Rapdis) 4 mg TRANSLINGU Q8H PRN PRN Reason: Nausea and Vomiting Last Admin: 08/03/24 11:57 Dose: 4 mg Polyethylene Glycol (Polyethylene Glycol 3350 17 Gm Powd.Pack) 17 gm PO DAILY PRN PRN Reason: Constipation,severe Last Admin: 08/10/24 13:28 Dose: 17 gm Trazodone HCl (Trazodone Hcl 50 Mg Tablet) 50 mg PO BEDTIME MRX1 PRN PRN Reason: Insomnia Vitamin D (Cholecalciferol (Vitamin D3) 25 Mcg Tablet) 25 mcg PO DAILY [facility] Last Admin: 08/11/24 08:50 Dose: 25 mcg Zolpidem Tartrate (Zolpidem Tartrate 5 Mg Tablet) 5 mg PO BEDTIME PRN PRN Reason: Insomnia Last Admin: 08/10/24 20:54 Dose: 5 mg Allergies Allergies Allergy/AdvReac Type Severity Reaction Status Date / Time amoxicillin Allergy Unknown Verified 07/27/24 16:59 Assessment & Plan Assessment & Plan (1) PTSD (post-traumatic stress disorder): Status: Acute Code(s): F43.10 - Post-traumatic stress disorder, unspecified (2) Bipolar affective psychosis: Qualifiers: Active/Remission status: currently active Current bipolar episode type: depressed Current episode severity: unspecified Qualified Code(s): F31.30 - Bipolar disorder, current episode depressed, mild or moderate severity, unspecified Status: Acute Code(s): F31.9 - Bipolar disorder, unspecified Plan Admit, CV, 15 minute checks Valproate Level Collateral Contact Diagnostics as needed Continue current regime Discussed options with pt, chart reports Horace' guardianship is in place. Will search for this 08/01: DC evening Haldol Titrate Abilify as tolerated and as symptoms occur 08/03: Continue tx Haldol prn per pt request 08/04: Patient states that she is ?a little better? today. She is looking forward to start Ingrezza, once approved by her health plan, for her bilateral hand tremors which started when she was on Haldol 4-5 months ago. She currently denies anxiety/depression/SI/HI/AH/VH. Continue current trearment regimen. 08/05: Continue tx 08/06: Continue current management and treatment plan. 08/07: Continue current management and treatment plan. 08/08: PT Consult-gait stability 08/11: DC 08/12 Reason for continued inpatient stay Substantial Risk for: rapid decompensation Time Spent With Patient Time: Total time managing care of this patient today ____ minutes.
[2024-08-11 20:00] VITALS: BP 119/62; PULSE 91; RESP 18; TEMP 36.8; O2SAT 93
[2024-08-11 20:06] VITALS: BP 119/62; PULSE 91
[2024-08-11] MEDS: Metoprolol Succinate ER 25 MG TAB.ER.24H PO (20:06)
[2024-08-12] MEDS: [UNRECOGNIZED DRUG - REMARK] 120 EACH PO (06:21)
[2024-08-12 08:00] VITALS: BP 121/68; PULSE 85; RESP 18; TEMP 36.7; O2SAT 92
[2024-08-12 08:09] LABS: Glucose, Whole Blood 116 mg/dL (60-115)
--- NOTE | 2024-08-12 08:22 | HO.PSYCHPN ---
Subjective Subjective Date of Service: 08/12/24 Reason For Visit: PTSD Bipolar Disorder with Psychosis Diagnostics Vital Signs (24Hr): Vital Signs - 24 hr 08/11/24 08:55 08/11/24 20:00 08/11/24 20:06 Temperature 97.9 F 98.2 F Pulse Rate 87 91 91 Respiratory Rate 18 18 Blood Pressure 103/55 L 119/62 119/62 Pulse Oximetry 93 93 Oxygen Delivery Method Room Air Room Air 08/12/24 08:00 Temperature 98.1 F Pulse Rate 85 Respiratory Rate 18 Blood Pressure 121/68 Pulse Oximetry 92 Oxygen Delivery Method Room Air BMI result Body Mass Index 38.4 Labs 07/27/24 17:31 07/27/24 17:31 Labs: Laboratory Results - last 48 hr 08/11/24 08/12/24 07:48 08:06 POC Glucose 134 H 116 H Medications Medications Current Medications Acetaminophen (Acetaminophen 325 Mg Tablet) 650 mg PO Q6H PRN PRN Reason: Headache/Pain, Scale 1-10 Last Admin: 08/07/24 20:53 Dose: 650 mg Al Hydroxide/Mg Hydroxide (Magnesium Hydrox/Alum Hydrox 30 Ml Oral.Susp) 30 ml PO Q6H PRN PRN Reason: Heartburn/Nausea Last Admin: 07/30/24 16:44 Dose: 30 ml Apixaban (Apixaban 5 Mg Tablet) 5 mg PO BID [facility] Last Admin: 08/11/24 20:07 Dose: 5 mg Aripiprazole (Aripiprazole 5 Mg Tablet) 7.5 mg PO DAILY [facility] Atorvastatin Calcium (Atorvastatin Calcium 40 Mg Tablet) 40 mg PO BEDTIME [facility] Last Admin: 08/11/24 20:06 Dose: 40 mg Benztropine Mesylate (Benztropine Mesylate 1 Mg Tablet) 2 mg PO BEDTIME [facility] Last Admin: 08/11/24 20:09 Dose: 2 mg Divalproex Sodium (Divalproex Sodium Sprinkles 125 Mg Suresh.) 1,000 mg PO BID [facility] Last Admin: 08/11/24 20:04 Dose: 1,000 mg Furosemide (Furosemide 20 Mg Tablet) 20 mg PO DAILY [facility]; Protocol Last Admin: 08/11/24 08:50 Dose: 20 mg Haloperidol Decanoate (Haloperidol Decanoate 50 Mg/Ml Vial) 100 mg IM Q30D [facility] Last Admin: 07/31/24 12:29 Dose: 100 mg Hydroxyzine HCl (Hydroxyzine Hcl 25 Mg Tablet) 25 mg PO Q6H PRN PRN Reason: mild anxiety Lorazepam (Lorazepam 1 Mg Tablet) 1 mg PO Q4H PRN PRN Reason: Anxiety Last Admin: 08/11/24 20:06 Dose: 1 mg Magnesium Hydroxide (Milk Of Magnesia 30 Ml Oral.Susp) 30 ml PO DAILY PRN PRN Reason: Constipation Last Admin: 08/03/24 20:55 Dose: 30 ml Magnesium Oxide (Magnesium Oxide 400 Mg Tablet) 400 mg PO DAILY [facility] Last Admin: 08/11/24 08:50 Dose: 400 mg Melatonin (Melatonin 3 Mg Tablet) 9 mg PO BEDTIME [facility] Last Admin: 08/11/24 20:08 Dose: 9 mg Metoprolol Succinate (Metoprolol Succinate Er 25 Mg Tab.Er.24h) 25 mg PO BEDTIME [facility]; Protocol Last Admin: 08/11/24 20:06 Dose: 25 mg Nicotine Polacrilex (Nicotine Polacrilex 2 Mg Gum) 4 mg BUCCAL Q2H PRN PRN Reason: Nicotine Cravings Pt Own (Trulicity 1. 5 Mg/ 0.5 Ml Injection ) 0.5 ml SUBCUT Sa@0900 [facility] Last Admin: 08/06/24 09:19 Dose: 0.5 ml Non-Form Med ([place] Thyroid 120mg Tab 120 Mg Tablet) 120 mg PO DAILY@0630 [facility] Last Admin: 08/12/24 06:21 Dose: 120 mg Omeprazole (Omeprazole 20 Mg Capsule.Dr) 20 mg PO DAILY@0630 [facility] Last Admin: 08/12/24 06:21 Dose: 20 mg Ondansetron HCl (Ondansetron Odt 4 Mg Tab.Rapdis) 4 mg TRANSLINGU Q8H PRN PRN Reason: Nausea and Vomiting Last Admin: 08/03/24 11:57 Dose: 4 mg Polyethylene Glycol (Polyethylene Glycol 3350 17 Gm Powd.Pack) 17 gm PO DAILY PRN PRN Reason: Constipation,severe Last Admin: 08/10/24 13:28 Dose: 17 gm Vitamin D (Cholecalciferol (Vitamin D3) 25 Mcg Tablet) 25 mcg PO DAILY [facility] Last Admin: 08/11/24 08:50 Dose: 25 mcg Zolpidem Tartrate (Zolpidem Tartrate 5 Mg Tablet) 5 mg PO BEDTIME PRN PRN Reason: Insomnia Last Admin: 08/11/24 20:06 Dose: 5 mg Allergies Allergies Allergy/AdvReac Type Severity Reaction Status Date / Time amoxicillin Allergy Unknown Verified 07/27/24 16:59 Assessment & Plan Assessment & Plan (1) PTSD (post-traumatic stress disorder): Status: Acute Code(s): F43.10 - Post-traumatic stress disorder, unspecified (2) Bipolar affective psychosis: Qualifiers: Active/Remission status: currently active Current bipolar episode type: depressed Current episode severity: unspecified Qualified Code(s): F31.30 - Bipolar disorder, current episode depressed, mild or moderate severity, unspecified Status: Acute Code(s): F31.9 - Bipolar disorder, unspecified Plan Admit, CV, 15 minute checks Valproate Level Collateral Contact Diagnostics as needed Continue current regime Discussed options with pt, chart reports Horace' guardianship is in place. Will search for this 08/01: DC evening Haldol Titrate Abilify as tolerated and as symptoms occur 08/03: Continue tx Haldol prn per pt request 08/04: Patient states that she is ?a little better? today. She is looking forward to start Ingrezza, once approved by her health plan, for her bilateral hand tremors which started when she was on Haldol 4-5 months ago. She currently denies anxiety/depression/SI/HI/AH/VH. Continue current trearment regimen. 08/05: Continue tx 08/06: Continue current management and treatment plan. 08/07: Continue current management and treatment plan. 08/08: PT Consult-gait stability 08/11: DC 08/12 Time Spent With Patient Time: Total time managing care of this patient today ____ minutes.
[2024-08-12] MEDS: Divalproex Sodium Sprinkles 125 MG CAP.DR.SPR 1000 MG PO (08:45)
[2024-08-12 08:47] VITALS: BP 121/68
--- NOTE | 2024-09-07 18:43 | PM.PSYDC ---
DS: Providers Provider Date of Service: 08/12/24 Date of admission: 07/28/24 12:40 Date of discharge: 08/12/24 Primary care physician: Khoa Stoner PA-C Admitting clinician: Danielle Oneill Attending physician on admission: Ruben Krueger Attending physician on discharge: Ruben Krueger Discharging clinician: Danielle Oneill DS: Diagnosis Discharge Diagnosis (1) PTSD (post-traumatic stress disorder): Status: Acute (2) Bipolar affective psychosis: Status: Acute DS: Medications Discharge Medications Home Medications: Home Medications ?Medication ?Instructions ?Recorded ?Confirmed apixaban 5 mg tablet (Eliquis) 5 mg PO BID 07/27/24 07/27/24 atorvastatin 40 mg tablet 40 mg PO DAILY 07/27/24 07/27/24 cholecalciferol (vitamin D3) 25 25 mcg PO DAILY 07/27/24 07/27/24 mcg (1,000 unit) tablet divalproex 125 mg capsule,delayed 1,000 mg PO BID 07/27/24 07/27/24 release sprinkle furosemide 20 mg tablet 20 mg PO DAILY 07/27/24 07/27/24 metoprolol succinate 25 mg 25 mg PO DAILY 07/27/24 07/27/24 tablet,extended release 24 hr omeprazole 20 mg capsule,delayed 20 mg PO QAM 07/27/24 07/27/24 release [place] Thyroid 120mg Tab 120 mg PO DAILY@0630 07/31/24 07/31/24 Previous Rx's ?Medication ?Instructions ?Recorded magnesium oxide 400 mg (241.3 mg 400 mg PO DAILY 30 days #30 tabs 02/08/24 magnesium) tablet polyethylene glycol 3350 17 gram 17 g PO DAILY PRN 04/05/24 oral powder packet Constipation,severe #30 packets dulaglutide 1.5 mg/0.5 mL 1.5 mg (0.5 mL) subcut QWEEK #2 mL 07/29/24 subcutaneous pen injector (Trulicity) deutetrabenazine 6 mg tablet 6 mg PO DAILY 30 days #30 tabs 08/03/24 (Austedo) Trulicity 1.5 Mg/0.5 Ml 0.5 ml subcut Sa@0900 ##0 07/03/25 acetaminophen 325 mg tablet 650 mg (2 x 325 mg) PO Q6H PRN 08/11/24 Headache/Pain, Scale 1-10 #0 tabs aripiprazole 5 mg tablet (Abilify) 7.5 mg (1.5 x 5 mg) PO DAILY #45 08/11/24 tabs benztropine 2 mg tablet 2 mg PO BEDTIME #30 tabs 08/11/24 haloperidol decanoate 100 mg/mL 100 mg IM QMONTH #1 mL 08/11/24 intramuscular solution lorazepam 1 mg tablet 1 mg PO Q4H PRN Anxiety #30 tabs 08/11/24 melatonin 3 mg tablet 9 mg (3 x 3 mg) PO DAILY #90 tabs 08/11/24 ondansetron 4 mg disintegrating 4 mg translingual Q8H PRN Nausea 08/11/24 tablet And Vomiting #15 tabs zolpidem 5 mg tablet 5 mg PO BEDTIME PRN Insomnia #30 08/11/24 tabs Mental Status Exam Mental Status Exam Patient Appearance: Appropriate Patient Orientation: Person, Place, Time and Situation Level of Consciousness: Alert Patient Behavior: Talkative and Good Eye Contact Mood Description: Calm Affect Description: Calm Patient Cognition Impaired: No Ability to Follow Directions: Good Speech Pattern: Spontaneous Speech Memory Description: Intact Hallucinations: None Delusions: Not Present Thought Process: Goal Oriented Thought Content: positive for Goal Oriented Depressive Symptoms: Muscle Tension Judgement: Good DS: Summary Hospital Course Hospital Course: Admission to adult psychiatry for exacerbation of PTSD, Bipolar Disorder with Psychotic Features. Medications were evaluated and adjusted. Pt was offered full milieu support to strengthen coping skills. Pt will return to her out patient therapist and prescriber and will continue with Haldol Decanoate injections on a monthly basis. Status at Discharge Functional status at discharge: independent ambulation Overall status at discharge: patient is back to baseline Time Spent with Patient Time attestation: Total time managing care of this patient today ____ minutes. Time spent: Less than 30 minutes Discharge Plan Discharge Anticipated Discharge Date/Time: 08/12/24 12:00 Patient Disposition: Home, Self-Care Discharge Diagnosis: PTSD Bipolar Disorder with Psychotic Features Referrals: Psychiatry with Dr. Levy Mcdonald [Other, Psychiatry] - 08/15/24 12:30 pm Referral Note: Appointment is in person Therapy with [facility] [Other] - 08/25/24 Khoa Stoner PA-C [Primary Care Provider, Medical] Discharge Medications: New Trulicity 1.5 mg/0.5 mL pen injector 1.5 mg subcut QWEEK Qty: 2 0RF Rx Instructions: Due every Thursday Austedo 6 mg tablet 6 mg PO DAILY 30 Days Qty: 30 0RF acetaminophen 325 mg Tablet 650 mg PO Q6H PRN (Reason: Headache/Pain, Scale 1-10) Qty: 0 0RF lorazepam 1 mg Tablet 1 mg PO Q4H PRN (Reason: Anxiety) Qty: 30 0RF ondansetron 4 mg Tablet,Disintegrating 4 mg translingual Q8H PRN (Reason: Nausea And Vomiting) Qty: 15 0RF aripiprazole [Abilify] 5 mg Tablet 7.5 mg PO DAILY Qty: 45 0RF Trulicity 1.5 M 0.5 ml subcut Sa@0900 Qty: 0 0RF Continued magnesium oxide 400 mg (241.3 mg magnesium) Tablet 400 mg PO DAILY 30 Days Qty: 30 0RF polyethylene glycol 3350 17 gram Powder In Packet 17 g PO DAILY PRN (Reason: Constipation,severe) Qty: 30 0RF atorvastatin 40 mg tablet 40 mg PO DAILY Eliquis 5 mg tablet 5 mg PO BID omeprazole 20 mg capsule,delayed release(DR/EC) 20 mg PO QAM furosemide 20 mg tablet 20 mg PO DAILY divalproex 125 mg capsule, delayed rel sprinkle 1,000 mg PO BID metoprolol succinate 25 mg tablet extended release 24 hr 25 mg PO DAILY cholecalciferol (vitamin D3) 25 mcg (1,000 unit) tablet 25 mcg PO DAILY [place] Thyroid 120mg Tab 120 mg tablet 120 mg PO DAILY@0630 melatonin 3 mg Tablet 9 mg PO DAILY Qty: 90 0RF benztropine 2 mg tablet 2 mg PO BEDTIME Qty: 30 0RF zolpidem 5 mg Tablet 5 mg PO BEDTIME PRN (Reason: Insomnia) Qty: 30 0RF haloperidol decanoate 100 mg/mL solution 100 mg IM QMONTH Qty: 1 0RF Discontinued haloperidol 5 mg Tablet 5 mg PO BID Qty: 60 0RF Discharge Orders: Discharge Order (Routine); Ordered 08/12/24 Ordered By: Danielle Oneill Diet: Advance to usual diet Activity on Discharge: As tolerated Stand Alone Forms: Patient Portal Discharge page, Community Support Print Language: Wolof Care Plan Goals: Mood and Behavioral Stabilization Health Concerns: Mood and Behavioral Stabilization Plan of Treatment: Attend scheduled appointments Take medications as directed Call/Return as needed We will continue to work on getting Austedo approved for TD. Haldol injection will be due on 08/30/24 Assessment: No SI,HI,AH,VH No sx of overt becca, psychosis Pt is in agreement with plan of care. Discharge Date/Time: 08/12/24 11:52
== END 2024-08-12 11:52 | disposition home or self-care (01) | DRG 885 ==
LOC: HO.ED 07-28 11:44 → HO.PM5 07-28 12:46
PROVIDERS: Physician Assistant Medical; Admitting Provider Clinical Nurse Specialist Psychiatric/Mental Health, Adult; Emergency Provider Emergency Medicine Emergency Medical Services; PCP Physician Assistant; Visit Provider Clinical Nurse Specialist Psychiatric/Mental Health, Adult
DX: F31.5 Bipolar disorder, current episode depressed, severe, with psychotic features (principal); R45.851 Suicidal ideations; F43.10 Post-traumatic stress disorder, unspecified; Z20.822 Contact with and (suspected) exposure to COVID-19; Z79.01 Long term (current) use of anticoagulants; Z79.899 Other long term (current) drug therapy
CPT/HCPCS: 36415; 80053; 80061; 80143; 80164; 80179; 80307; 81001; 82607; 82746; 82947; 83036; 83735; 84439; 84443; 85025; 87635; 93005; 97161; 99285; J1631; S9485

== ENCOUNTER → 2024-07-27 18:56 | Outpatient (BNV) | payer MEDICARE, BC, SELFPAY | PROVIDERS: Admitting Provider Clinical Nurse Specialist Psychiatric/Mental Health, Adult; Emergency Provider Emergency Medicine Emergency Medical Services; PCP Physician Assistant; Visit Provider Internal Medicine Cardiovascular Disease | DX: Z13.6 Encounter for screening for cardiovascular disorders (principal) | CPT/HCPCS: 93010 ==

== ENCOUNTER → 2024-07-28 12:40 | Outpatient (BNV) | payer MEDICARE, BC, SELFPAY | PROVIDERS: Admitting Provider Clinical Nurse Specialist Psychiatric/Mental Health, Adult; Emergency Provider Emergency Medicine Emergency Medical Services; PCP Physician Assistant; Visit Provider Clinical Nurse Specialist Psychiatric/Mental Health, Adult | DX: F31.32 Bipolar disorder, current episode depressed, moderate (principal); F43.11 Post-traumatic stress disorder, acute | CPT/HCPCS: 90792; 99231; 99232 ==